=== PATIENT | female | born 1940 | race Caucasian/White ===

== ENCOUNTER → 2020-12-02 12:58 | Outpatient (BNVA) | payer MEDICARE, SELFPAY | PROVIDERS: PCP Family Medicine; Visit Provider Nurse Practitioner | DX: Z13.89 Encounter for screening for other disorder (principal) | CPT/HCPCS: Q3014 ==

== ENCOUNTER 2020-12-03 11:00 | Outpatient (REF) | payer MEDICARE, SELFPAY ==
[2020-12-03 14:31] LABS: C Reactive Protein 0.12 mg/dL (< or = 0.50)
[2020-12-09 07:50] LABS: Prometheus TPMT Genetics SEE SEPARATE REPORT
== END 2020-12-03 11:01 | disposition home or self-care (01) ==
LOC: HO.HMGCLDS 11:00
PROVIDERS: PCP Family Medicine; Visit Provider Nurse Practitioner
DX: K51.90 Ulcerative colitis, unspecified, without complications (principal)
CPT/HCPCS: 36415; 81335; 86140

== ENCOUNTER 2021-01-25 08:26 | Emergency (ER) | payer MEDICARE, SELFPAY ==
--- NOTE | ~2021-01-25 | CT_ITS ---
EXAMINATION: CT ABDOMEN AND PELVIS WITHOUT CONTRAST CLINICAL INFORMATION: Rectal bleeding. Ulcerative colitis. COMPARISON: Previous CT of the abdomen and pelvis February 2020 TECHNIQUE: Multidetector volumetric imaging was performed from the superior aspect of the liver through the pubic symphysis. Sagittal and coronal reformatted images were obtained on the technologist's workstation. This CT examination was performed using dose optimization techniques as appropriate, variously including the following: *Automated exposure control *Adjustment of mA and/or kV according to patient size (this includes techniques or standardized protocols for targeted exams where dose is matched to indication/reason for exam; i.e. extremities or head) *Use of iterative reconstruction technique DLP: 1245 mGy-cm FINDINGS: LUNG BASES: The visualized lung bases are unremarkable. LIVER, GALLBLADDER, AND BILIARY TREE: The liver is slightly low in attenuation questionable for fatty infiltration. Liver is otherwise unremarkable. The gallbladder has been removed. There is no intrahepatic biliary duct dilatation. The distal common bile duct in the head of the pancreas is prominent measuring 1.5 cm. This is unchanged. PANCREAS: There is a 1.3 cm cyst or cystic lesion in the uncinate process of the head of the pancreas. Axial image 30 series 3 This is unchanged from February 2020 exam. There is a duodenal diverticulum adjacent to the head of the pancreas. The pancreas is otherwise unremarkable. SPLEEN: Unremarkable. ADRENAL GLANDS: Unremarkable. KIDNEYS AND URETERS: There are bilateral low-attenuation lesions in the upper pole of both kidneys that are stable and probably represent cysts. There is mild left hydronephrosis. No stone is seen. BLADDER: Unremarkable. GASTROINTESTINAL TRACT: There is wall thickening and edema of the colon and rectum suggestive of colitis and proctitis. This is most severe in the distal colon. There is diverticulosis of the colon. No evidence of diverticulitis is seen. There is diverticulosis of the colon. The appendix is is not seen. The stomach is unremarkable. ABDOMINAL WALL: No significant hernia is appreciated. LYMPH NODES: Normal. VASCULAR: There is evidence of atherosclerotic disease. PELVIC VISCERA: Unremarkable. OSSEOUS STRUCTURES: There is scoliosis and degenerative changes of the spine. CT/CT abdomen pelvis wo con IMPRESSION: Wall thickening of the colon and rectum suggestive of colitis and proctitis. There is also diverticulosis of the colon. Stable bilateral low-attenuation renal lesions probably representing cysts. No ultrasound follow-up needed. Stable probable cyst in the uncinate process of the head of the pancreas. Fatty liver. Stable dilatation of the common bile duct in the head of the pancreas.
[2021-01-25 08:45] VITALS: BP 175/91; PULSE 86; RESP 20; TEMP 36.7; O2SAT 96; BMI 40.2
[2021-01-25 09:34] LABS: MANUAL DIFF FLAG NO
[2021-01-25 09:35] LABS: OBS Int Ctl Valid YES; OBS1 POSITIVE (NEGATIVE)
[2021-01-25 09:35] LABS: Basophils Percent Auto 0.6 % (0-2); Eosinophils Absolute Auto 0.1 X10*3/uL (0.0-0.4); Eosinophils Percent Auto 1.3 % (0-4); Hematocrit 41.6 % (37-47); Imm Gran Abs Auto 0.03 X10*3/uL (0.00-0.03); Imm Gran Pct Auto 0.4 % (0.0-0.4); Lymphocytes Absolute Auto 1.4 X10*3/uL (1.2-4.9); Lymphocytes Percent Auto 20.1 % (20-40); Mean Corpuscular HGB Conc 31.3 g/dl (31.0-35.0); Mean Corpuscular Hemoglobin 26.2 pg (27.0-33.0); Mean Corpuscular Volume 83.7 fL (80-98); Mean Platelet Volume 9.3 fL (9.4-12.3); Monocytes Absolute Auto 0.7 X10*3/uL (0.1-1.2); Monocytes Percent Auto 10.3 % (2-11); Neutrophils Absolute Auto 4.8 X10*3/uL (2.0-8.3); Neutrophils Percent Auto 67.3 % (45-73); Platelet Count 317 X10*3/uL (160-400); Red Blood Count 4.97 X10*6/uL (4.20-5.50); Red Cell Distribution Width 16.6 % (11.0-16.0); White Blood Count 7.2 X10*3/uL (4.8-10.8)
[2021-01-25] MEDS: ondansetron HCL 4 MG/2 ML VIAL IVPUSH (09:39)
[2021-01-25] MEDS: Famotidine/PF 20 MG/2 ML VIAL IVPUSH (09:39)
[2021-01-25] MEDS: 0.9 % Sodium Chloride 1,000 ML 999 ML IV (09:40)
[2021-01-25 09:41] LABS: INTERNATIONAL NORM RATIO 1.2 (0.9-1.1); Prothrombin Time 13.9 SEC (9.9-13.0)
[2021-01-25 10:06] LABS: Alanine Aminotransferase 19 U/L (0-31); Albumin Level 3.9 g/dL (3.5-5.0); Alkaline Phosphatase 59 U/L (39-117); Anion Gap 18 (12-20); Aspartate Amino Transferase 31 U/L (5-31); Blood Urea Nitrogen 8 mg/dL (9-16); Calcium 9.6 mg/dL (8.4-10.2); Carbon Dioxide 23 mmol/L (22-29); Chloride 105 mmol/L (96-108); Estimated Glomerular Filt Rate > 60; Glucose Random 110 mg/dL (60-115); Potassium 4.1 mmol/L (3.3-5.1); Sodium 142 mmol/L (135-145); Total Protein 6.9 g/dL (6.5-8.0)
[2021-01-25] MEDS: methylPREDNISolone Sod Succ 125 MG/2 ML VIAL 60 MG IVPUSH (10:18)
--- NOTE | 2021-01-25 10:25 | ED_ITS ---
HPI - GI Bleed General Chief complaint: GI Bleed Stated complaint: rectal bleeding Time Seen by Provider: 01/25/21 10:56 Source: patient Mode of arrival: ambulatory Limitations: no limitations History of Present Illness HPI Narrative: patient presents to the ED for crampy lower abdominal pain and rectal bleeding with diarrhea for couple of weeks. Patient states bright red blood in stool. Patient states stool is brown. Patient states no fever, chest pain, shortness of breath or dizziness. Patient admits to nausea with mid abdominal pain MD complaint: blood streaked emesis Related Data Home Medications Medication Instructions Recorded Confirmed amlodipine 5 mg tablet 5 mg PO DAILY 12/02/20 12/02/20 apixaban 5 mg tablet 5 mg PO BID 12/02/20 12/02/20 diclofenac sodium 1 % topical gel g TOPICAL QID 12/02/20 12/02/20 gabapentin 300 mg capsule 400 mg PO TID cap 12/02/20 12/02/20 hydromorphone 2 mg tablet 2 mg PO BEDTIME PRN 12/02/20 12/02/20 prednisone 5 mg tablet See Rx Instructions PO .COMPLEX 12/02/20 12/02/20 ropinirole 0.5 mg tablet mg PO 12/02/20 12/02/20 Previous Rx's Medication Instructions Recorded budesonide 3 mg 3 mg PO DAILY #30 cap 07/08/20 capsule,delayed,extended release azathioprine 50 mg tablet 50 mg PO DAILY 90 Days #90 tab 01/11/21 levofloxacin 750 mg PO DAILY 5 Days #5 tab 01/25/21 metronidazole 500 mg PO Q12H #14 tab 01/25/21 prednisone 40 mg PO DAILY 7 Days #14 tab 01/25/21 Allergies Allergy/AdvReac Type Severity Reaction Status Date / Time Iodinated Contrast Media Allergy Intermediate RASH Verified 12/02/20 13:00 [IV CONTRAST] CT dye Allergy Mild hives Uncoded 12/02/20 13:00 dogs, cats etc.. Allergy Unknown Unknown Uncoded 12/02/20 13:00 Review of Systems Review of Systems: Yes all other systems are reviewed and are negative Constitutional: Constitutional: Reports as per HPI and Reports no additional constitutional complaints Eyes: Eyes: Reports as per HPI and Reports no additional eye complaints ENT: Reports system reviewed and no additional complaints, except as documented and Reports as per HPI Cardiovascular: Cardiovascular: Reports as per HPI and Reports no additional cardiovascular complaints Respiratory: Respiratory: Reports as per HPI and Reports no additional respir atory complaints Gastrointestinal: Gastrointestinal: Reports as per HPI, Reports no additional gastrointestinal complaints, Reports abdominal pain ( lower abdominal pain), Reports hematochezia and Reports nausea Musculoskeletal: Musculoskeletal: Reports no additional musculoskeletal complaints and Reports as per HPI Neurologic: Reports system reviewed and no additional complaints, except as documented and Reports as per HPI Psychiatric: Psychiatric: Reports no additional psychiatric complaints and Reports as per HPI [facility] Past Medical History Medical History (Updated 01/25/21 @ 13:15 by [place]) Colitis DVT (deep venous thrombosis) HTN (hypertension) Pre-diabetes Restless leg syndrome Spinal abscess Surgical History (Updated 01/25/21 @ 08:51 by Nury Perkins) Hx of shoulder surgery Social History Social History Patient Tobacco Use Status: Never used Tobacco Use of substances other than those prescribed or required for medical reasons: No Advance Directives: Yes Advance Directives Information Provided: Yes Advance Directives on File: No Physical Exam Vital Signs: Vital Signs: Last Vital Signs Temp 98.0 F 01/25/21 08:45 Pulse 90 01/25/21 13:14 Resp 16 01/25/21 13:14 BP 142/66 H 01/25/21 13:14 Pulse Ox 99 01/25/21 13:14 Body Mass Index 40.2 Const: General: cooperative, healthy appearing, comfortable, no acute distress, well developed, alert and awake Orientation/consciousness: patient oriented x3 HENMT: Head: Yes normal to inspection, Yes No palpable skull fracture present, Yes normocephalic, Yes atraumatic and No abrasion Eyes: General: appearance normal, both eyes and all related structures Neck: Neck: Yes normal visual inspection, Yes full ROM, Yes no lymphadenopathy, Yes no meningeal signs, Yes trachea midline, Yes supple and No tender Chest: Chest palpation & inspection: normal inspection of the chest and normal palpation of entire chest wall Resp: Effort & Inspection: normal respiratory effort and able to speak in complete sentences Auscultation: clear to auscultation bilaterally Cardio: Jugular venous distension: no JVD Heart sounds: S1 normal heart sound present and S2 normal heart sound present GI: Other: rectal exam: on digital rectal exam positive for specks of shelley blood with stool. stool is brown. Negative for black stool or melena. Negative for hemorrhoids Inspection: Yes normal to inspection and No abdominal wall ecchymosis Palpation (GI): Tenderness to palpation present (GI) in the LLQ and in the RLQ; not in the epigastrum, not in the LUQ, not in the RUQ, not at McBurney's point, not periumbilically, not suprapubicly, 's sign negative, obturator sign negative, psoas sign negative, with no rebound tenderness and Rovsing's sign negative, no guarding, not rigid and hepatosplenomegaly present : General: No CVA tenderness and Yes no CVA tenderness Back/Spine/Pelvis: Back: no CVA tenderness, No CVA tenderness and No back tenderness Skin: General skin exam: no rashes or lesions noted and elasticity normal Neuro: General: patient oriented x3, gait normal, no meningeal signs and CN's II-XI intact bilaterally Cranial nerves: Yes CN's II-XII intact bilaterally Extrem: General: Yes normal to inspection and Yes full ROM Psych: Appearance: grossly normal, well kempt and not disheveled Course Course Course Narrative: will do labs and give fluids. Patient given Pepcid and Zofran. Will order dry abdominal CT scan. patient cannot receive IV dye contrast. Will act for base states notes from recent ED visit. Reevaluation(s) Reevaluation #1: I reviewed patient's patient states notes from 11/25/2020 when she was in the ER for similar presentation of lower abdominal pain and rectal bleeding. Patient was discharged as also ulcer colitis exacerbation and rectal bleeding. Patient was discharged with steroids. At that visit [facility] resident contacted her transportation engineering technician Dr. Wright of [facility] and she recommended discharge with steroids and patient was not having a GI bleed but ulcerative colitis exacerbation. Patient labs at that time were no rmal or negative for any anemia. Hemoglobin was 14.1 and hematocrit for 45.5. patient also had normal kidney function. Once again patient was discharged from the ED From the ER as ulcerative of colitis and had follow-up with [facility] transportation engineering technician Dr. Wright. Time: 12:18 Reevaluation #2: patient's stool occult blood test is positive. Patient is hemodynamically stable. Hemoglobin is 13 and hematocrit 41.6. Kidney function is normal. Blood pressure is normal. Patient received fluids and Pepcid. Awaiting CT scan results. Time: 11:13 Reevaluation #3: CT scan shows colitis and proctitis. Patient will need antibiotics. No need for admission. Patient does not have elevated white blood cell count. Patient informed to continue taking her steroids. Time: 12:21 Additional Reevaluation(s): spoke with Dr. Gerardo, the transportation engineering technician on- call, and he was informed of patient's history, physical exam, and diagnostics. He states patient can be discharged with antibiotics and prednisone. He states patient can continue taking Eliquis and follow up with Dr. Wright next week. MDM - GI Bleed MDM Narrative Medical decision making narrative: colitis/proctitis Lab Data Result diagrams: 01/25/21 09:28 01/25/21 09:28 Labs: Lab Results 01/25/21 01/25/21 01/25/21 Range/Units 09:28 09:28 09:28 WBC 7.2 (4.8-10.8) X10*3/uL RBC 4.97 (4.20-5.50) X10*6/uL Hgb 13.0 (12.0-16.0) g/dl Hct 41.6 (37-47) % MCV 83.7 (80-98) fL MCH 26.2 L (27.0-33.0) pg MCHC 31.3 (31.0-35.0) g/dl RDW 16.6 H (11.0-16.0) % Plt Count 317 (160-400) X10*3/uL MPV 9.3 L (9.4-12.3) fL Immature Gran % (Auto) 0.4 (0.0-0.4) % Neut % (Auto) 67.3 (45-73) % Lymph % (Auto) 20.1 (20-40) % Crosby % (Auto) 10.3 (2-11) % Eos % (Auto) 1.3 (0-4) % Baso % (Auto) 0.6 (0-2) % Lymph # (Auto) 1.4 (1.2-4.9) X10*3/uL Crosby # (Auto) 0.7 (0.1-1.2) X10*3/uL Eos # (Auto) 0.1 (0.0-0.4) X10*3/uL Baso # (Auto) 0.0 (0.0-0.2) X10*3/uL Abs Immat Gran (auto) 0.03 (0.00-0.03) X10*3/uL Absolute Neuts (auto) 4.8 (2.0-8.3) X10*3/uL Absolute Nucleated RBC 0.000 (0.0-0.012) X10*3/uL Nucleated RBC % (auto) 0.0 (0.0-0.2) /100WBC PT 13.9 H (9.9-13.0) SEC INR 1.2 H (0.9-1.1) APTT 42.0 H (24.1-38.0) SEC Sodium 142 (135-145) mmol/L Potassium 4.1 (3.3-5.1) mmol/L Chloride 105 (96-108) mmol/L Carbon Dioxide 23 (22-29) mmol/L Anion Gap 18 (12-20) BUN 8 L (9-16) mg/dL Creatinine 0.84 (0.5-1.4) mg/dL Estim Creat Clear Calc 58.0 Estimated GFR > 60 Random Glucose 110 (60-115) mg/dL Calcium 9.6 (8.4-10.2) mg/dL Total Bilirubin 1.0 (0.0-1.0) mg/dL AST 31 (5-31) U/L ALT 19 (0-31) U/L Alkaline Phosphatase 59 (39-117) U/L Total Protein 6.9 (6.5-8.0) g/dL Albumin 3.9 (3.5-5.0) g/dL Lipase 13 (8-78) U/L Urine Color Urine Appearance Urine pH (5.0-8.0) Ur Specific Harmony (1.005-1.025) Urine Protein (NEG-TRACE) MG/DL Urine Glucose (UA) (NEG) MG/DL Urine Ketones (NEG) MG/DL Urine Blood (NEG) Urine Nitrite (NEG) Ur Leukocyte Esterase (NEG) Urine RBC (0) /HPF Urine WBC (0-4) /HPF Ur Squamous Epith Cells /LPF Urine Bacteria /LPF Stool Occult Blood (NEGATIVE) Blood Type Antibody Screen 01/25/21 01/25/21 01/25/21 Range/Units 09:30 10:01 11:13 WBC (4.8-10.8) X10*3/uL RBC (4.20-5.50) X10*6/uL Hgb (12.0-16.0) g/dl Hct (37-47) % MCV (80-98) fL MCH (27.0-33.0) pg MCHC (31.0-35.0) g/dl RDW (11.0-16.0) % Plt Count (160-400) X10*3/uL MPV (9.4-12.3) fL Immature Gran % (Auto) (0.0-0.4) % Neut % (Auto) (45-73) % Lymph % (Auto) (20-40) % Crosby % (Auto) (2-11) % Eos % (Auto) (0-4) % Baso % (Auto) (0-2) % Lymph # (Auto) (1.2-4.9) X10*3/uL Crosby # (Auto) (0.1-1.2) X10*3/uL Eos # (Auto) (0.0-0.4) X10*3/uL Baso # (Auto) (0.0-0.2) X10*3/uL Abs Immat Gran (auto) (0.00-0.03) X10*3/uL Absolute Neuts (auto) (2.0-8.3) X10*3/uL Absolute Nucleated RBC (0.0-0.012) X10*3/uL Nucleated RBC % (auto) (0.0-0.2) /100WBC PT (9.9-13.0) SEC INR (0.9-1.1) APTT (24.1-38.0) SEC Sodium (135-145) mmol/L Potassium (3.3-5.1) mmol/L Chloride (96-108) mmol/L Carbon Dioxide (22-29) mmol/L Anion Gap (12-20) BUN (9-16) mg/dL Creatinine (0.5-1.4) mg/dL Estim Creat Clear Calc Estimated GFR Random Glucose (60-115) mg/dL Calcium (8.4-10.2) mg/dL Total Bilirubin (0.0-1.0) mg/dL AST (5-31) U/L ALT (0-31) U/L Alkaline Phosphatase (39-117) U/L Total Protein (6.5-8.0) g/dL Albumin (3.5-5.0) g/dL Lipase (8-78) U/L Urine Color STRAW Urine Appearance CLEAR Urine pH 6.0 (5.0-8.0) Ur Specific Harmony <= 1.005 (1.005-1.025) Urine Protein NEG (NEG-TRACE) MG/DL Urine Glucose (UA) NEG (NEG) MG/DL Urine Ketones 15 (NEG) MG/DL Urine Blood TRACE (NEG) Urine Nitrite NEG (NEG) Ur Leukocyte Esterase NEG (NEG) Urine RBC 0-2 (0) /HPF Urine WBC 0-2 (0-4) /HPF Ur Squamous Epith Cells 1+ /LPF Urine Bacteria NONE /LPF Stool Occult Blood POSITIVE (NEGATIVE) Blood Type A Positive Antibody Screen NEGATIVE Discharge Plan Discharge Clinical Impression: Ulcerative colitis, Acute proctitis, Colitis Patient Disposition: Home, Self-Care Instructions: Proctitis (ED), Ulcerative Colitis (ED), Colitis (ED) Additional Instructions: return to the ED immediately for worsening abdominal pain, profuse rectal bleeding, weakness, dizziness, fever, chills, chest pain, shortness of breath, or any other concerning symptoms. your blood work came back normal. Your CT scan showed colitis with proctitis. You need oral antibiotics. Prescriptions: New levofloxacin 750 mg tablet 750 mg PO DAILY 5 Days Qty: 5 RF: 0 metronidazole 500 mg tablet 500 mg PO Q12H Qty: 14 RF: 0 prednisone 20 mg tablet 40 mg PO DAILY 7 Days Qty: 14 RF: 0 No Action budesonide 3 mg capsule,delayed,extend.release 3 mg PO DAILY Qty: 30 RF: 3 azathioprine [Imuran] 50 mg tablet 50 mg PO DAILY 90 Days Qty: 90 RF: 1 gabapentin 300 mg capsule 400 mg PO TID RF: 0 ropinirole 0.5 mg tablet PO RF: 0 amlodipine 5 mg tablet 5 mg PO DAILY RF: 0 diclofenac sodium 1 % gel topical QID RF: 0 hydromorphone 2 mg tablet 2 mg PO BEDTIME PRN (Reason: pain) RF: 0 Eliquis 5 mg tablet 5 mg PO BID RF: 0 prednisone 5 mg tablet See Rx Instructions PO .COMPLEX RF: 0 Referrals: Sindhu Wright MD [Physician] - 2 days ( seen in the ED for also of colitis exacerbation. CT scan shows colitis with proctitis. Patient Discharged with antibiotics and steroids) Discharge Date/Time: 01/25/21 14:41 Print Language: [place]ar[place]uan
[2021-01-25 11:10] VITALS: BP 161/54; PULSE 80; RESP 16; O2SAT 96
[2021-01-25 11:26] LABS: Glucose Urine UA NEG (NEG); Leukocyte Esterase Urine NEG (NEG); Nitrite Urine NEG (NEG); Specific Gravity - Urine <= 1.005 (1.005-1.025); Urine Blood TRACE (NEG); Urine Ketones 15 MG/DL (NEG); Urine Protein NEG (NEG-TRACE)
[2021-01-25 11:29] LABS: Appearance Urine CLEAR; Color Urine STRAW
[2021-01-25 11:38] LABS: RBC Urine 0-2 /HPF (0); Squamous Epithelial Cell Urine 1+ /LPF; WBC Urine 0-2 /HPF (0-4)
[2021-01-25 11:38] LABS: Lipase 13 U/L (8-78)
[2021-01-25 13:14] VITALS: BP 142/66; PULSE 90; RESP 16; O2SAT 99
== END 2021-01-25 14:41 | disposition home or self-care (01) ==
PROVIDERS: Physician Assistant; Emergency Provider Emergency Medicine; PCP Family Medicine
DX: K51.20 Ulcerative (chronic) proctitis without complications (principal); R10.30 Lower abdominal pain, unspecified
CPT/HCPCS: 36415; 74176; 80053; 81001; 82272; 83690; 85025; 85610; 85730; 86850; 86900; 86901; 96361; 96374; 96375; 99284; J2405; J2930; Q3014

== ENCOUNTER 2021-01-27 10:11 | Outpatient (REF) | payer MEDICARE, SELFPAY ==
[2021-01-27 12:08] LABS: CDiff Gene PCR NEGATIVE (Negative)
[2021-02-02 02:52] LABS: Calprotectin, Fecal 1750 mcg/g
== END 2021-01-27 10:12 | disposition home or self-care (01) ==
LOC: HO.HMGCLNP 10:11
PROVIDERS: Visit Provider Nurse Practitioner
DX: R19.7 Diarrhea, unspecified (principal); K51.90 Ulcerative colitis, unspecified, without complications
CPT/HCPCS: 83993; 87045; 87046; 87493

== ENCOUNTER 2021-01-31 08:41 | Outpatient (REF) | payer MEDICARE, SELFPAY ==
[2021-01-31 14:16] LABS: C Reactive Protein 0.15 mg/dL (< or = 0.50)
== END 2021-01-31 08:42 | disposition home or self-care (01) ==
LOC: HO.HMGCLDS 08:41
PROVIDERS: PCP Family Medicine; Visit Provider Nurse Practitioner
DX: K21.9 Gastro-esophageal reflux disease without esophagitis (principal); K51.90 Ulcerative colitis, unspecified, without complications; R19.7 Diarrhea, unspecified; K64.9 Unspecified hemorrhoids
CPT/HCPCS: 36415; 86140; Q3014

== ENCOUNTER → 2021-02-10 09:48 | Outpatient (BNVA) | payer MEDICARE, SELFPAY | PROVIDERS: PCP Family Medicine; Visit Provider Nurse Practitioner | DX: Z12.11 Encounter for screening for malignant neoplasm of colon (principal); K51.90 Ulcerative colitis, unspecified, without complications; K64.9 Unspecified hemorrhoids; K21.9 Gastro-esophageal reflux disease without esophagitis; R19.7 Diarrhea, unspecified | CPT/HCPCS: Q3014 ==

== ENCOUNTER 2021-02-11 09:53 | Outpatient (REF) | payer MEDICARE, SELFPAY | END 2021-02-11 09:54 | disposition home or self-care (01) | LOC: HO.HMGCLDS 09:53 | PROVIDERS: PCP Family Medicine; Visit Provider Nurse Practitioner | DX: K51.90 Ulcerative colitis, unspecified, without complications (principal) | CPT/HCPCS: 36415 ==

== ENCOUNTER → 2021-03-18 08:23 | Outpatient (BNVA) | payer MEDICARE, SELFPAY | PROVIDERS: PCP Family Medicine; Visit Provider Nurse Practitioner | CPT/HCPCS: Q3014 ==

== ENCOUNTER 2021-05-11 14:31 | Inpatient (IN) | payer MEDICARE, SELFPAY ==
--- NOTE | ~2021-05-11 | CT_ITS ---
EXAMINATION: CT ABDOMEN AND PELVIS WITHOUT CONTRAST CLINICAL INFORMATION: History of ulcerative colitis with rectal bleeding COMPARISON: Previous CT of the abdomen and pelvis most recent December 2020 TECHNIQUE: Multidetector volumetric imaging was performed from the superior aspect of the liver through the pubic symphysis. Sagittal and coronal reformatted images were obtained on the technologist's workstation. This CT examination was performed using dose optimization techniques as appropriate, variously including the following: *Automated exposure control *Adjustment of mA and/or kV according to patient size (this includes techniques or standardized protocols for targeted exams where dose is matched to indication/reason for exam; i.e. extremities or head) *Use of iterative reconstruction technique DLP: 994 mGy-cm FINDINGS: LUNG BASES: There is atelectasis at the lung bases. There may be mild bilateral lower lobe bronchiectasis. LIVER, GALLBLADDER, AND BILIARY TREE: The liver is low in attenuation suggestive of fatty infiltration. The gallbladder is been removed. There is mild dilatation of the extrahepatic bile ducts that appears unchanged. PANCREAS: There is a 1.3 cm cyst in the uncinate process of the head of the pancreas that measures 1 cm and is unchanged. There is a duodenal diverticulum adjacent to the head of the pancreas. The pancreas is otherwise unremarkable. SPLEEN: Unremarkable. ADRENAL GLANDS: Unremarkable. KIDNEYS AND URETERS: There are bilateral low-attenuation renal lesions that are stable suggestive of cysts. Largest measure 1 cm. BLADDER: Unremarkable. GASTROINTESTINAL TRACT: There is diverticulosis of the colon. No evidence of diverticulitis is seen. There is mild wall thickening of the rectum suggestive of proctitis. The more proximal sigmoid colon is slightly distended and stool-filled. The small and large bowel are otherwise unremarkable. The appendix is not seen. The stomach is unremarkable. ABDOMINAL WALL: No significant hernia is appreciated. LYMPH NODES: Normal. VASCULAR: Unremarkable. PELVIC VISCERA: Unremarkable. OSSEOUS STRUCTURES: There is scoliosis and degenerative change of the spine. CT/CT abdomen pelvis wo con IMPRESSION: Wall thickening of the rectum suggestive of proctitis. The sigmoid colon appears a stool filled. Diverticulosis of the colon. No evidence of diverticulitis. Stable renal and pancreatic cysts. Fatty liver.
--- NOTE | ~2021-05-11 | XR_ITS ---
EXAMINATION: XR ABDOMEN KUB CLINICAL INDICATION: Constipation COMPARISON: CT abdomen and pelvis 05/11/2021 TECHNIQUE: AP x2 views of the abdomen. FINDINGS: There is scattered gas in the bowel of normal caliber. Some mild stool is noted in the distal descending and proximal sigmoid colon. There is no rectal fecal impaction. No excessive content of stool. There are surgical clips right upper quadrant consistent with the cholecystectomy. Some coarsening bronchovascular markings are again seen at the lung bases. There is dextrocurvature lumbar spine with multilevel degenerative changes. XR/XR KUB IMPRESSION: 1. No gaseous dilatation of bowel. 2. No excessive contents of stool. No rectal fecal impaction.
[2021-05-11 15:00] VITALS: BP 133/68; PULSE 81; RESP 18; TEMP 36.4; O2SAT 95; BMI 39.6
--- NOTE | 2021-05-11 16:43 | ED.GIBLEED ---
HPI - GI Bleed General Chief complaint: Abdominal Pain Stated complaint: RECTAL BLEEDING Time Seen by Provider: 05/11/21 16:40 Source: patient and family (Daughter) Mode of arrival: ambulatory Limitations: no limitations History of Present Illness HPI Narrative: 81 years old female came in for evaluation of rectal bleeding. This is an 81-year-old female with history of DVT patient is taking Eliquis for anticoagulation, patient noted is been having constipation for the last 4 days, patient also noted bloody loose stool for the last 2-3 days, patient is complaining of mild lower abdominal pain, and rectal discomfort. Patient otherwise declined chest pain, feeling dizzy, or shortness of breath. Related Data Home Medications Medication Instructions Recorded Confirmed amlodipine 5 mg tablet 5 mg PO DAILY 12/02/20 12/02/20 apixaban 5 mg tablet (Eliquis) 5 mg PO BID 12/02/20 12/02/20 diclofenac sodium 1 % topical gel g TOPICAL QID 12/02/20 12/02/20 gabapentin 300 mg capsule 400 mg PO TID cap 12/02/20 12/02/20 hydromorphone 2 mg tablet 2 mg PO BEDTIME PRN 12/02/20 12/02/20 ropinirole 0.5 mg tablet mg PO 12/02/20 12/02/20 Previous Rx's Medication Instructions Recorded hydrocortisone 2.5 % topical cream [address] BID #30 g 01/31/21 with perineal applicator (Proctosol HC) azathioprine 50 mg tablet (Imuran) 50 mg PO DAILY 90 Days #90 tab 02/10/21 budesonide 3 mg 3 mg PO DAILY #30 cap 02/10/21 capsule,delayed,extended release Allergies Allergy/AdvReac Type Severity Reaction Status Date / Time dogs, cats etc.. Allergy Unknown Unknown Uncoded 12/02/20 13:00 barium Allergy Hives Uncoded 05/11/21 15:00 Review of Systems Review of Systems: All other systems are reviewed and are negative Constitutional: Reports as per HPI and Reports no additional constitutional complaints Eyes: Reports as per HPI and Reports no additional eye complaints Reports system reviewed and no additional complaints, except as documented Cardiovascular: Reports as per HPI and Reports no additional cardiovascular complaints Respiratory: Reports as per HPI and Reports no additional respiratory complaints Gastrointestinal: Reports as per HPI and Reports no additional gastrointestinal complaints Genitourinary: Reports no additional female genitourinary complaints Musculoskeletal: Reports no additional musculoskeletal complaints Skin/Breast: Reports system reviewed and no additional complaints, except as docu Psychiatric: Reports no additional psychiatric complaints Endocrine: Reports no additional endocrine complaints Hematologic/Lymphatic: Reports no additional hematologic/lymphatic complaints Allergic/Immunologic: Reports no additional allergic/immunologic complaints Reports system reviewed and no additional complaints, except as documented and Reports Abnormal speech present [facility] Past Medical History Medical History Colitis DVT (deep venous thrombosis) HTN (hypertension) Pre-diabetes Restless leg syndrome Spinal abscess Surgical History Hx of shoulder surgery Social History Social History Alcohol intake: never Patient Tobacco Use Status: Never used Tobacco Use of substances other than those prescribed or required for medical reasons: No Advance Directives: No Advance Directives Information Provided: No Physical Exam Vital Signs: Vital Signs: Last Vital Signs Temp 97.9 F 05/11/21 20:05 Pulse 68 05/11/21 20:05 Resp 15 05/11/21 20:05 BP 109/50 L 05/11/21 20:05 Pulse Ox 96 05/11/21 20:05 Body Mass Index 39.6 Vital signs have been reviewed as appeared to be correct. Blood pressure normal. Heart rate normal. Respiration rate normal. Temperature normal. Oxygen saturation normal. Appearance: Alert. Oriented X3. No acute distress. Head: Normal external exam. Normocephalic. Atraumatic. No [place] signs noted. No raccoon eyes noted Eyes: PERRLA. EOMI. Conjunctiva and sclera normal. Eyelids normal. ENT: TM's Normal. Pharynx normal. Uvula midline. Moist mucous membranes. No trismus noted. No drooling noted. No muffled voice noted. Neck: Normal inspection. Neck supple. FROM. No adenopathy. Thyroid Normal. No meningeal signs. No neck mass noted. CVS: Normal heart rate and rhythm. Heart sound normal. No murmurs noted. Pulses normal throughout. Respiratory: No respiratory distress. Painless inspiration. Breath sounds normal. No wheezes/rales/rhonchi noted. Chest nontender. No accessory muscle usage noted or decreased air movement noted. Abdomen: Soft and nontender. Bowel sounds normal in all 4 quadrants. No distention noted. No organomegaly noted. No visible injury noted. Rectal exam: No external hemorrhoids appreciated, no palpable internal hemorrhoid, stool was hematochezia. Back: No CVA tenderness. Full range of motion noted. Skin: Skin warm and dry. Normal skin color. Normal skin turgor. No rashes/lesions/lacerations noted. Extremities: No lower extremity edema. Extremities exhibit normal range of motion. Extremities nontender. Neuro: Oriented X 3. Cranial nerve exam: II-XII are grossly intact No motor deficit. No sensory deficit. Reflexes normal. Course Course Course Narrative: Assessment and plan. 81-year-old female came in with GI bleed, patient is on Eliquis for DVT. Patient is hemodynamically stable, with stable H and H, and asymptomatic from the bleed. Will admit the patient for monitoring GI bleed and serial CBC. MDM - GI Bleed Medical Records Attestation: I reviewed the patient's medical records. Lab Data Attestation: I reviewed the patient's lab results. Result diagrams: 05/11/21 13:00 05/11/21 17:49 Labs: Lab Results 05/11/21 05/11/21 05/11/21 Range/Units 13:00 16:50 16:50 WBC 9.5 (4.8-10.8) X10*3/uL RBC 4.50 (4.20-5.50) X10*6/uL Hgb 11.9 L (12.0-16.0) g/dl Hct 38.7 (37-47) % MCV 86.0 (80-98) fL MCH 26.4 L (27.0-33.0) pg MCHC 30.7 L (31.0-35.0) g/dl RDW 18.9 H (11.0-16.0) % Plt Count 419 H D (160-400) X10*3/uL MPV 9.5 (9.4-12.3) fL Immature Gran % (Auto) 0.3 (0.0-0.4) % Neut % (Auto) 74.9 H (45-73) % Lymph % (Auto) 13.2 L (20-40) % [place] % (Auto) 9.4 (2-11) % Eos % (Auto) 1.5 (0-4) % Baso % (Auto) 0.7 (0-2) % Lymph # (Auto) 1.3 (1.2-4.9) X10*3/uL [place] # (Auto) 0.9 (0.1-1.2) X10*3/uL Eos # (Auto) 0.1 (0.0-0.4) X10*3/uL Baso # (Auto) 0.1 (0.0-0.2) X10*3/uL Abs Immat Gran (auto) 0.03 (0.00-0.03) X10*3/uL Absolute Neuts (auto) 7.1 (2.0-8.3) X10*3/uL Absolute Nucleated RBC 0.000 (0.0-0.012) X10*3/uL Nucleated RBC % (auto) 0.0 (0.0-0.2) /100WBC PT 19.1 H (9.9-13.0) SEC INR 1.7 H (0.9-1.1) APTT 40.1 H (24.1-38.0) SEC Sodium (135-145) mmol/L Potassium (3.3-5.1) mmol/L Chloride (96-108) mmol/L Carbon Dioxide (22-29) mmol/L Anion Gap (12-20) BUN (9-16) mg/dL Creatinine (0.5-1.4) mg/dL Estim Creat Clear Calc Estimated GFR Random Glucose (60-115) mg/dL Calcium (8.4-10.2) mg/dL Total Bilirubin (0.0-1.0) mg/dL AST (5-31) U/L ALT (0-31) U/L Alkaline Phosphatase (39-117) U/L Troponin I High Sens 6.5 (<3.5-17.0) ng/L B-Natriuretic Peptide 55 (<100) pg/mL Total Protein (6.5-8.0) g/dL Albumin (3.5-5.0) g/dL Stool Occult Blood (NEGATIVE) Coronavirus (PCR) (Negative) Influenza Type A (PCR) (Negative) Influenza Type B (PCR) (Negative) RSV RNA Qual (PCR) (Negative) 05/11/21 05/11/21 05/11/21 Range/Units 16:50 17:10 17:49 WBC (4.8-10.8) X10*3/uL RBC (4.20-5.50) X10*6/uL Hgb (12.0-16.0) g/dl Hct (37-47) % MCV (80-98) fL MCH (27.0-33.0) pg MCHC (31.0-35.0) g/dl RDW (11.0-16.0) % Plt Count (160-400) X10*3/uL MPV (9.4-12.3) fL Immature Gran % (Auto) (0.0-0.4) % Neut % (Auto) (45-73) % Lymph % (Auto) (20-40) % [place] % (Auto) (2-11) % Eos % (Auto) (0-4) % Baso % (Auto) (0-2) % Lymph # (Auto) (1.2-4.9) X10*3/uL [place] # (Auto) (0.1-1.2) X10*3/uL Eos # (Auto) (0.0-0.4) X10*3/uL Baso # (Auto) (0.0-0.2) X10*3/uL Abs Immat Gran (auto) (0.00-0.03) X10*3/uL Absolute Neuts (auto) (2.0-8.3) X10*3/uL Absolute Nucleated RBC (0.0-0.012) X10*3/uL Nucleated RBC % (auto) (0.0-0.2) /100WBC PT (9.9-13.0) SEC INR (0.9-1.1) APTT (24.1-38.0) SEC Sodium 141 (135-145) mmol/L Potassium 3.6 (3.3-5.1) mmol/L Chloride 98 (96-108) mmol/L Carbon Dioxide 32 H (22-29) mmol/L Anion Gap 15 (12-20) BUN 16 D (9-16) mg/dL Creatinine 1.27 (0.5-1.4) mg/dL Estim Creat Clear Calc 36.0 Estimated GFR 40 Random Glucose 112 (60-115) mg/dL Calcium 9.5 (8.4-10.2) mg/dL Total Bilirubin 1.2 H (0.0-1.0) mg/dL AST 40 H (5-31) U/L ALT 18 (0-31) U/L Alkaline Phosphatase 74 D (39-117) U/L Troponin I High Sens (<3.5-17.0) ng/L B-Natriuretic Peptide (<100) pg/mL Total Protein 6.3 L (6.5-8.0) g/dL Albumin 3.6 (3.5-5.0) g/dL Stool Occult Blood POSITIVE (NEGATIVE) Coronavirus (PCR) NEGATIVE (Negative) Influenza Type A (PCR) NEGATIVE (Negative) Influenza Type B (PCR) NEGATIVE (Negative) RSV RNA Qual (PCR) NEGATIVE (Negative) Imaging Data CT scan - abdomen: Radiologist's impression: Wall thickening of the rectum suggestive of proctitis. The sigmoid colon appears a stool filled. Diverticulosis of the colon. No evidence of diverticulitis. Stable renal and pancreatic cysts. Fatty liver.? Discharge Plan Discharge Clinical Impression: Acute GI bleeding, Acute proctitis Patient Disposition: Admitted As Inpatient Prescriptions: No Action gabapentin 300 mg capsule 400 mg PO TID RF: 0 ropinirole 0.5 mg tablet PO RF: 0 amlodipine 5 mg tablet 5 mg PO DAILY RF: 0 diclofenac sodium 1 % gel topical QID RF: 0 hydromorphone 2 mg tablet 2 mg PO BEDTIME PRN (Reason: pain) RF: 0 Eliquis 5 mg tablet 5 mg PO BID RF: 0 hydrocortisone [Proctosol HC] 2.5 % cream with perineal applicator [address] BID Qty: 30 RF: 3 azathioprine [Imuran] 50 mg tablet 50 mg PO DAILY 90 Days Qty: 90 RF: 2 budesonide 3 mg capsule,delayed,extend.release 3 mg PO DAILY Qty: 30 RF: 3
--- NOTE | 2021-05-11 16:45 | ECG_ITS ---
Test Reason : abd pain Blood Pressure : / mmHG Vent. Rate : 066 BPM Atrial Rate : 066 BPM P-R Int : 178 ms QRS Dur : 096 ms QT Int : 334 ms P-R-T Axes : 035 -30 128 degrees QTc Int : 350 ms Normal sinus rhythm Left axis deviation Low voltage QRS Nonspecific T wave abnormality Abnormal ECG T wave amplitude has decreased in Lateral leads Referred By: Vanessa Musa Electronically Signed By:EMERSON ALLEN MD
[2021-05-11 16:58] LABS: MANUAL DIFF FLAG NO
[2021-05-11 17:08] LABS: Basophils Absolute Auto 0.1 X10*3/uL (0.0-0.2); Basophils Percent Auto 0.7 % (0-2); Eosinophils Absolute Auto 0.1 X10*3/uL (0.0-0.4); Eosinophils Percent Auto 1.5 % (0-4); Hematocrit 38.7 % (37-47); Hemoglobin 11.9 g/dl (12.0-16.0); Imm Gran Abs Auto 0.03 X10*3/uL (0.00-0.03); Imm Gran Pct Auto 0.3 % (0.0-0.4); Lymphocytes Absolute Auto 1.3 X10*3/uL (1.2-4.9); Lymphocytes Percent Auto 13.2 % (20-40); Mean Corpuscular HGB Conc 30.7 g/dl (31.0-35.0); Mean Corpuscular Hemoglobin 26.4 pg (27.0-33.0); Mean Platelet Volume 9.5 fL (9.4-12.3); Monocytes Absolute Auto 0.9 X10*3/uL (0.1-1.2); Monocytes Percent Auto 9.4 % (2-11); Neutrophils Absolute Auto 7.1 X10*3/uL (2.0-8.3); Neutrophils Percent Auto 74.9 % (45-73); Platelet Count 419 X10*3/uL (160-400); Red Cell Distribution Width 18.9 % (11.0-16.0); White Blood Count 9.5 X10*3/uL (4.8-10.8)
[2021-05-11 17:13] LABS: INTERNATIONAL NORM RATIO 1.7 (0.9-1.1); Prothrombin Time 19.1 SEC (9.9-13.0)
[2021-05-11 17:16] LABS: Partial Thromboplastin Time 40.1 SEC (24.1-38.0)
[2021-05-11 17:34] LABS: B Type Natriuretic Peptide 55 pg/mL (<100); Troponin-I High Sensitivity 6.5 ng/L (<3.5-17.0)
[2021-05-11 17:55] LABS: Influenza A PCR NEGATIVE (Negative); Influenza B PCR NEGATIVE (Negative); Resp Syncy Virus RNA Qual PCR NEGATIVE (Negative); SARS COV2 PCR INHOUSE NEGATIVE (Negative)
[2021-05-11 17:57] VITALS: BP 93/39; PULSE 72; RESP 16; TEMP 36.5; O2SAT 93
[2021-05-11 18:30] LABS: Alanine Aminotransferase 18 U/L (0-31); Albumin Level 3.6 g/dL (3.5-5.0); Alkaline Phosphatase 74 U/L (39-117); Anion Gap 15 (12-20); Aspartate Amino Transferase 40 U/L (5-31); Bilirubin Total 1.2 mg/dL (0.0-1.0); Blood Urea Nitrogen 16 mg/dL (9-16); Calcium 9.5 mg/dL (8.4-10.2); Carbon Dioxide 32 mmol/L (22-29); Chloride 98 mmol/L (96-108); Estimated Glomerular Filt Rate 40; Glucose Random 112 mg/dL (60-115); Potassium 3.6 mmol/L (3.3-5.1); Sodium 141 mmol/L (135-145); Total Protein 6.3 g/dL (6.5-8.0)
[2021-05-11 18:39] LABS: OBS Int Ctl Valid YES; OBS1 POSITIVE (NEGATIVE)
[2021-05-11 20:05] VITALS: BP 109/50; PULSE 68; RESP 15; TEMP 36.6; O2SAT 96
--- NOTE | 2021-05-11 20:17 | PC.NURSE ---
Pt alert and oriented x4, calm and cooperative. Pt denies pain. Pt states she continues to feel the urge to have to have a BM. Vitals stable. IV intact. Pt on tele monitor, NSR. Pt resting in stretcher without issues, will continue to monitor.
--- NOTE | 2021-05-11 21:58 | P.HPHOSP_ITS ---
History of Present Illness Date of Service: 05/11/21 Chief Complaint: constipation, gi bleed This is an 81-year-old female with past medical history of ulcerative colitis, DVT, HTN, prediabetes, who presents to the hospital with complaints of severe constipation as well as 2 episodes of red blood per rectum after straining. Patient reports that she has been constipated for the past 4 days, she started having concerns because she felt that she was unable to move her bowels and started having incontinence of diarrhea even though she was unable to have a proper bowel movement, she also started having pain bright blood per rectum after her last 2 bowels and therefore presented to the hospital. Patient denies having any abdominal pain, denies having any nausea or vomiting, no chest pain, no palpitations, no dizziness or change in vision. No headache, no urinary symptoms and no lower extremity edema. Patient does report history of hemorrhoids. On initial presentation patient hemodynamically stable with a blood pressure of 93/39 that improved to 109/50 and is currently 120/54 Labs are significant for PT of 19.1, INR of 1.7, otherwise unremarkable. Stool occult blood positive, Abdominal CT shows acute proctitis and stool-filled sigmoid colon. Patient will be admitted for further management Review of Systems Review of Systems: Yes all other systems are reviewed and are negative [facility] Medical History (Updated 05/12/21 @ 05:54 by Elie Prince MD) Colitis DVT (deep venous thrombosis) History of CHF (congestive heart failure) HTN (hypertension) Pre-diabetes Restless leg syndrome Spinal abscess Pertinent family history: No pertinent history Surgical History Hx of shoulder surgery Social History Alcohol intake: never Patient Tobacco Use Status: Never used Tobacco Use of substances other than those prescribed or required for medical reasons: No Advance Directives: No Advance Directives Information Provided: No Meds Allergies Allergy/AdvReac Type Severity Reaction Status Date / Time dogs, cats etc.. Allergy Unknown Unknown Uncoded 12/02/20 13:00 barium Allergy Hives Uncoded 05/11/21 15:00 Active Medications: Current Medications Magnesium Hydroxide (Milk Of Magnesia 30 Ml Oral.Susp) 30 ml PO DAILY STA Stop: 05/11/21 21:59 Pharmacy Consult (Consult Rx Perform Med Rec) 1 each MISCELLANE ONCE PRN PRN Reason: Consult order Home Medications Medication Instructions Recorded Confirmed Last Taken Type amlodipine 5 mg tablet 5 mg PO DAILY 12/02/20 05/11/21 05/11/21 History apixaban 5 mg tablet (Eliquis) 5 mg PO BID 12/02/20 05/11/21 05/11/21 History ropinirole 0.5 mg tablet 0.5 mg PO QID 12/02/20 05/11/21 05/11/21 History aspirin 81 mg tablet,delayed 1 tab PO DAILY 05/11/21 05/11/21 05/11/21 History release atorvastatin 40 mg tablet 1 tab PO BEDTIME 05/11/21 05/11/21 05/10/21 History dorzolamide 22.3 mg-timolol 6.8 1 drp OPHTHALMIC (EYE) BID 05/11/21 05/11/21 05/11/21 History mg/mL eye drops gabapentin 400 mg capsule 800 mg PO TID 05/11/21 05/11/21 05/11/21 History isosorbide mononitrate 30 mg 1 tab PO DAILY 05/11/21 05/11/21 05/11/21 History tablet,extended release 24 hr latanoprost 0.005 % eye drops 1 drp OPHTHALMIC (EYE) BEDTIME 05/11/21 05/11/21 05/10/21 History metoprolol succinate 25 mg 1 tab PO DAILY 05/11/21 05/11/21 05/11/21 History tablet,extended release 24 hr torsemide 20 mg tablet 1 tab PO DAILY 05/11/21 05/11/21 05/11/21 History Physical Exam Vital Signs and Narrative: Vital Signs: Last Vital Signs Temp 97.9 F 05/11/21 20:05 Pulse 68 05/11/21 20:05 Resp 15 05/11/21 20:05 BP 109/50 L 05/11/21 20:05 Pulse Ox 96 05/11/21 20:05 Body Mass Index 39.6 Const: General: cooperative and no acute distress Orientation/consciousness: patient oriented x3 Eyes: General: appearance normal, both eyes and all related structures Pupils: Equal, round and reactive pupils present Resp: Effort & Inspection: normal respiratory effort Auscultation: clear to auscultation bilaterally Cardio: Rate: regular rate Rhythm: regular rhythm GI: Other: No tenderness, no rebound or guarding On rectal exam, patient does have external hemorrhoids but do not appear to be ulcerated or bleeding Palpation (GI): Soft to palpation Auscultation: normal bowel sounds Skin: General skin exam: no rashes or lesions noted Neuro: General: patient oriented x3 Cranial nerves: Yes Equal, round and reactive pupils present Cognition (Neuro): normal cognition Extrem: General: Yes normal to inspection and Yes no pedal edema Results Labs CBC and Chem 7: 05/11/21 13:00 05/11/21 17:49 Labs: Laboratory Results - last 24 hr 05/11/21 05/11/21 05/11/21 13:00 16:50 16:50 MCV 86.0 MCH 26.4 L MCHC 30.7 L RDW 18.9 H Plt Count 419 H D MPV 9.5 Immature Gran % (Auto) 0.3 Neut % (Auto) 74.9 H Lymph % (Auto) 13.2 L [place] % (Auto) 9.4 Eos % (Auto) 1.5 Baso % (Auto) 0.7 Lymph # (Auto) 1.3 [place] # (Auto) 0.9 Eos # (Auto) 0.1 Baso # (Auto) 0.1 Abs Immat Gran (auto) 0.03 Absolute Neuts (auto) 7.1 Absolute Nucleated RBC 0.000 Nucleated RBC % (auto) 0.0 PT 19.1 H INR 1.7 H APTT 40.1 H Anion Gap Estim Creat Clear Calc Estimated GFR Random Glucose Calcium Total Bilirubin AST ALT Alkaline Phosphatase Troponin I High Sens 6.5 B-Natriuretic Peptide 55 Total Protein Albumin Stool Occult Blood Coronavirus (PCR) Influenza Type A (PCR) Influenza Type B (PCR) RSV RNA Qual (PCR) 05/11/21 05/11/21 05/11/21 16:50 17:10 17:49 MCV MCH MCHC RDW Plt Count MPV Immature Gran % (Auto) Neut % (Auto) Lymph % (Auto) [place] % (Auto) Eos % (Auto) Baso % (Auto) Lymph # (Auto) [place] # (Auto) Eos # (Auto) Baso # (Auto) Abs Immat Gran (auto) Absolute Neuts (auto) Absolute Nucleated RBC Nucleated RBC % (auto) PT INR APTT Anion Gap 15 Estim Creat Clear Calc 36.0 Estimated GFR 40 Random Glucose 112 Calcium 9.5 Total Bilirubin 1.2 H AST 40 H ALT 18 Alkaline Phosphatase 74 D Troponin I High Sens B-Natriuretic Peptide Total Protein 6.3 L Albumin 3.6 Stool Occult Blood POSITIVE Coronavirus (PCR) NEGATIVE Influenza Type A (PCR) NEGATIVE Influenza Type B (PCR) NEGATIVE RSV RNA Qual (PCR) NEGATIVE Imaging Radiologist's Impressions: Impressions Abdomen/Pelvis CT 05/11/21 16:41 IMPRESSION: Wall thickening of the rectum suggestive of proctitis. The sigmoid colon appears a stool filled. Diverticulosis of the colon. No evidence of diverticulitis. Stable renal and pancreatic cysts. Fatty liver. Assessment and Plan (1) Acute GI bleeding: Status: Acute (2) Acute proctitis: Status: Acute (3) Constipation: Status: Acute This is an 81-year-old female who presents to the hospital with constipation as well as GI bleed # acute GI bleed - reports red bright blood per rectum most likely secondary to hemorrhoid - patient has been constipated and has been straining lately and reports history of hemorrhoids - has external hemorrhoids on physical exam - hemodynamically stable - hemoglobin did drop from 13 on 02/08 1-11.9 today - will consult gastroenterology - follow H&H # acute proctitis - is secondary to severe constipation - will order bowel regimen including enema, MiraLax, and milk of magnesia # constipation - has constipation diarrhea - denies taking any antidiarrheals or narcotic medications to cause severe constipation - at this time will start her on bowel regimen as well as enema - monitor for bowel movement # history of ulcerative colitis - patient reports that she does still continue have flares with most recent about a month ago - at this time does not appear to have UC flare - continue home medications of azathioprine and budesonide # DVT - given the acute GI bleed will hold apixaban at this time - resume once patient evaluated by GI # hypertension - initially low but has now normalized - will hold amlodipine in anticipation of any deterioration # history of CHF -not in exacerbation - continue torsemide # restless leg syndrome - continue ropinirole DVT prophylaxis: SCDs Quality Stroke Does the patient have a stroke diagnosis?: No VTE Prior VTE?: No VTE Risk Level:: Medical - moderate - high VTE Device Contraindication: N/A - Device Ordered VTE Drug Contraindication: Treatment Not Indicated
--- NOTE | 2021-05-11 22:00 | PHA.MEDREC ---
Pharmacy Consult ? Medication Reconciliation Pharmacy has completed the medication reconciliation.
[2021-05-11] MEDS: Sodium Phosphate,Mono-Dibasic 133 ML ENEMA PR (22:08)
[2021-05-11] MEDS: Milk of Magnesia 30 ML ORAL.SUSP PO (22:08)
[2021-05-11 22:12] LABS: Appearance Urine TURBID; Color Urine BROWN
[2021-05-11 22:15] LABS: RBC Urine TNTC /HPF (0)
[2021-05-11 22:18] LABS: Amorphous Sediment Urine 2+ /LPF
[2021-05-11 22:19] LABS: Bacteria Urine 3+ /LPF
[2021-05-11 22:20] LABS: Squamous Epithelial Cell Urine TRACE /LPF
[2021-05-11] MEDS: polyethylene glycoL 3350 17 GM POWD.PACK PO (22:35)
[2021-05-11 23:50] VITALS: BP 120/54; PULSE 73; RESP 15; TEMP 36.6; O2SAT 93
[2021-05-12 02:29] VITALS: BP 135/55; PULSE 75; RESP 14; O2SAT 96
[2021-05-12 06:03] VITALS: BP 113/48; PULSE 80; RESP 18; TEMP 37; O2SAT 94
[2021-05-12 06:12] LABS: MANUAL DIFF FLAG NO
--- NOTE | 2021-05-12 06:13 | PC.NURSE ---
Pt remains alert and oriented x4, calm and cooperative. Pt states pain at anus stating pain is related to multiple loose BM and hemorrhoids. 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 Buttock noted to be pink and blanching. Pt urinated without issues. IV intact. Pt remains on room air vitals stable. Pt turns and positions herself well in bed. Pt resting in stretcher without complaints, will continue to monitor.
[2021-05-12 06:18] LABS: Basophils Absolute Auto 0.1 X10*3/uL (0.0-0.2); Basophils Percent Auto 0.9 % (0-2); Eosinophils Absolute Auto 0.1 X10*3/uL (0.0-0.4); Eosinophils Percent Auto 1.6 % (0-4); Hematocrit 35.6 % (37-47); Hemoglobin 11.1 g/dl (12.0-16.0); Imm Gran Abs Auto 0.04 X10*3/uL (0.00-0.03); Imm Gran Pct Auto 0.5 % (0.0-0.4); Lymphocytes Absolute Auto 1.1 X10*3/uL (1.2-4.9); Lymphocytes Percent Auto 13.5 % (20-40); Mean Corpuscular HGB Conc 31.2 g/dl (31.0-35.0); Mean Corpuscular Hemoglobin 26.6 pg (27.0-33.0); Mean Corpuscular Volume 85.2 fL (80-98); Mean Platelet Volume 9.3 fL (9.4-12.3); Monocytes Percent Auto 12.4 % (2-11); Neutrophils Absolute Auto 5.8 X10*3/uL (2.0-8.3); Neutrophils Percent Auto 71.1 % (45-73); Platelet Count 388 X10*3/uL (160-400); Red Blood Count 4.18 X10*6/uL (4.20-5.50); Red Cell Distribution Width 18.9 % (11.0-16.0); White Blood Count 8.2 X10*3/uL (4.8-10.8)
[2021-05-12 06:33] LABS: Anion Gap 15 (12-20); Blood Urea Nitrogen 17 mg/dL (9-16); Calcium 9.2 mg/dL (8.4-10.2); Carbon Dioxide 32 mmol/L (22-29); Chloride 100 mmol/L (96-108); Creatinine Clr Calc Pharmacy 42.3; Estimated Glomerular Filt Rate 49; Glucose Random 106 mg/dL (60-115); Potassium 3.5 mmol/L (3.3-5.1); Sodium 143 mmol/L (135-145)
--- NOTE | 2021-05-12 07:43 | PC.NURSE ---
rn to rn elizabeth gilliam on [facility] / [facility].
[2021-05-12 08:00] VITALS: BP 124/53; PULSE 85; RESP 18; TEMP 37.2; O2SAT 94
[2021-05-12] MEDS: Gabapentin 400 MG CAPSULE 800 MG PO ×3 (08:34→21:06)
[2021-05-12] MEDS: rOPINIRole HCL 0.5 MG TABLET PO ×4 (08:35→21:06)
[2021-05-12] MEDS: Torsemide 20 MG TABLET PO (08:35)
[2021-05-12] MEDS: Isosorbide Mononitrate 30 MG TAB.ER.24H PO (08:35)
[2021-05-12] MEDS: 0.9 % Sodium Chloride Flush 3 ML SYRINGE IVFLUSH ×2 (08:35→14:16)
[2021-05-12] MEDS: Metoprolol Succinate ER 25 MG TAB.ER.24H PO (08:35)
--- NOTE | 2021-05-12 09:25 | MHC.CM.PN ---
IMM 05/12/21, EMR REVIEWED, PT ADMITTED W/GI BLEED, PROCTITIS AND CONSTIPATION, CM MET W/PT AND WHO WAS AT BEDSIDE, PT A&OX4, PT INDEPENDENT W/ALL CARE, PT DOES HAVE A CANE, ROLLATER WALKER AND RAILINGS IN BR, PT IS ACTIVE W/[facility] AND HAS SN ONCE A WK AND OT/PT TWICE WEEKLY, PT VERIFIES PCP AND HCP WHICH IS NOT ON FILE AND COPY HAS BEEN REQUESTED. D/C PLAN: HOME W/RESUMP OF [facility], FAMILY FOR TRANSPORT PCP: AJAY PINK HCP: DONY CARCAMO (DTR) [phone] ALTERNATE: DAVID CAI [phone]
--- NOTE | 2021-05-12 09:50 | PM.GICN ---
History of Present Illness Data of Consult Service Date: 05/12/21 Primary Care Provider: Mick Tatum MD HPI Reason for consult: rectal bleeding 81-year-old female with past medical history of ulcerative colitis, DVT, HTN, CHF, prediabetes, who I am seeing for assessment for rectal bleeding. She presents to hospital with rectal bleeding. She had been constipated for 4 d priro to admission. She has seen bleeding before with wiping and mixed in with stool. SHe has been straining and also felt hemorrhoids popping out sometimes. Patient denies having any abdominal pain, denies having any nausea or vomiting, no chest pain. Labs with stable HGB of around 11 g/dl, CT imaging with proctitis and diverticulosis with stool filled colon. Current meds for IBD include imuran 50 mg an dbudesonide 3 mg daily. She has had prednisone on and off for flares of proctitis Last colonowcopy 2015 with narrow colon, diverticulosis and ulcerative proctosigmoiditis. BX with chronci inflammation. Last fecal calprotectin 1700 in January 2021 Review of Systems Review of Systems: All other systems are reviewed and are negative Constitutional: Reports as per HPI and Reports no additional constitutional complaints Eyes: Reports as per HPI and Reports no additional eye complaints Reports system reviewed and no additional complaints, except as documented Cardiovascular: Reports as per HPI and Reports no additional cardiovascular complaints Respiratory: Reports as per HPI and Reports no additional respiratory complaints Gastrointestinal: Reports as per HPI and Reports no additional gastrointestinal complaints Genitourinary: Reports no additional female genitourinary complaints Musculoskeletal: Reports no additional musculoskeletal complaints Skin/Breast: Reports system reviewed and no additional complaints, except as docu Psychiatric: Reports no additional psychiatric complaints Endocrine: Reports no additional endocrine complaints Hematologic/Lymphatic: Reports no additional hematologic/lymphatic complaints Allergic/Immunologic: Reports no additional allergic/immunologic complaints Reports system reviewed and no additional complaints, except as documented and Reports Abnormal speech present Yes all other systems are reviewed and are negative Constitutional: Constitutional: Denies chills and Denies fever(s) Cardiovascular: Cardiovascular: Denies chest pain Respiratory: Respiratory: Denies cough PMFSH Past Medical History Medical History (Updated 05/12/21 @ 05:54 by Elie Prince MD) Colitis DVT (deep venous thrombosis) History of CHF (congestive heart failure) HTN (hypertension) Pre-diabetes Restless leg syndrome Spinal abscess Family History Pertinent family history: No pertinent history Surgical History Surgical History Hx of shoulder surgery Social History Social History Household Members: Family Housing: House Alcohol intake: never Patient Tobacco Use Status: Never used Tobacco service: No Current occupational status: retired Meds Allergies Allergy/AdvReac Type Severity Reaction Status Date / Time dogs, cats etc.. Allergy Unknown Unknown Uncoded 12/02/20 13:00 barium Allergy Hives Uncoded 05/11/21 15:00 Active Medications: Current Medications Acetaminophen (Acetaminophen 325 Mg Tablet) 650 mg PO Q6H PRN PRN Reason: Pain, Mild (Pain Scale 1-3) Aspirin (Aspirin Enteric Coated 81 Mg Tablet.Dr) 81 mg PO DAILY [facility] Last Admin: 05/12/21 08:37 Dose: Not Given Documented by: Atorvastatin Calcium (Atorvastatin Calcium 40 Mg Tablet) 40 mg PO BEDTIME [facility] Azathioprine (Azathioprine 50 Mg Tablet) 50 mg PO DAILY [facility] Docusate Sodium (Docusate Sodium 100 Mg Capsule) 100 mg PO DAILY PRN PRN Reason: Constipation Dorzolamide/Timolol (Dorzolamide/Timolo 2.23%/0.68% 10 Ml Drbtl) 1 drop EYE-BOTH BID [facility] Gabapentin (Gabapentin 400 Mg Capsule) 800 mg PO TID [facility] Last Admin: 05/12/21 08:34 Dose: 800 mg Documented by: Isosorbide Mononitrate (Isosorbide Mononitrate 30 Mg Tab.Er.24h) 30 mg PO DAILY [facility]; Protocol Last Admin: 05/12/21 08:35 Dose: 30 mg Documented by: Latanoprost (Latanoprost 0.005 % Ophth Era 2.5 Ml Drops) 1 drop EYE-BOTH BEDTIME [facility] Magnesium Hydroxide (Milk Of Magnesia 30 Ml Oral.Susp) 15 ml PO BID PRN PRN Reason: Constipation Metoprolol Succinate (Metoprolol Succinate Er 25 Mg Tab.Er.24h) 25 mg PO DAILY [facility]; Protocol Last Admin: 05/12/21 08:35 Dose: 25 mg Documented by: Non-Formulary Medication (Budesonide) 3 mg PO DAILY [facility] Ondansetron HCl (Ondansetron Hcl 4 Mg/2 Ml Vial) 4 mg IVPUSH Q8H PRN PRN Reason: Nausea and Vomiting Pharmacy Consult (Consult Rx Perform Med Rec) 1 each MISCELLANE ONCE PRN PRN Reason: Consult order Polyethylene Glycol (Polyethylene Glycol 3350 17 Gm Powd.Pack) 17 gm PO DAILY [facility] Last Admin: 05/12/21 08:35 Dose: Not Given Documented by: Ropinirole HCl (Ropinirole Hcl 0.5 Mg Tablet) 0.5 mg PO QID [facility] Last Admin: 05/12/21 08:35 Dose: 0.5 mg Documented by: Sodium Chloride (0.9 % Sodium Chloride Flush 3 Ml Syringe) 3 ml IVFLUSH QSHIFT [facility] Last Admin: 05/12/21 08:35 Dose: 3 ml Documented by: Torsemide (Torsemide 20 Mg Tablet) 20 mg PO DAILY [facility]; Protocol Last Admin: 05/12/21 08:35 Dose: 20 mg Documented by: Home Medications Medication Instructions Recorded Confirmed Last Taken Type amlodipine 5 mg tablet 5 mg PO DAILY 12/02/20 05/11/21 05/11/21 History apixaban 5 mg tablet (Eliquis) 5 mg PO BID 12/02/20 05/11/21 05/11/21 History ropinirole 0.5 mg tablet 0.5 mg PO QID PRN 12/02/20 05/11/21 05/11/21 History aspirin 81 mg tablet,delayed 1 tab PO DAILY 05/11/21 05/11/21 05/11/21 History release atorvastatin 40 mg tablet 1 tab PO BEDTIME 05/11/21 05/11/21 05/10/21 History dorzolamide 22.3 mg-timolol 6.8 1 drp OPHTHALMIC (EYE) BID 05/11/21 05/11/21 05/11/21 History mg/mL eye drops gabapentin 400 mg capsule 800 mg PO TID 05/11/21 05/11/21 05/11/21 History isosorbide mononitrate 30 mg 1 tab PO DAILY 05/11/21 05/11/21 05/11/21 History tablet,extended release 24 hr latanoprost 0.005 % eye drops 1 drp OPHTHALMIC (EYE) BEDTIME 05/11/21 05/11/21 05/10/21 History metoprolol succinate 25 mg 1 tab PO DAILY 05/11/21 05/11/21 05/11/21 History tablet,extended release 24 hr torsemide 20 mg tablet 1 tab PO DAILY 05/11/21 05/11/21 05/11/21 History Physical Exam Vital Signs: Vital Signs: Last Vital Signs Temp 99.0 F 05/12/21 08:00 Pulse 85 05/12/21 08:00 Resp 18 05/12/21 08:00 BP 124/53 L 05/12/21 08:00 Pulse Ox 94 05/12/21 08:00 Body Mass Index 39.6 Const: General: cooperative and no acute distress Nutritional Appearance: well nourished Orientation/consciousness: patient oriented x3 HENMT: Head: Yes normocephalic and Yes atraumatic Eyes: General: appearance normal, both eyes and all related structures Sclerae: sclerae normal Pupils: Equal, round and reactive pupils present Chest: Chest palpation & inspection: normal inspection of the chest Resp: Effort & Inspection: normal respiratory effort Auscultation: clear to auscultation bilaterally Cardio: Rate: regular rate Rhythm: regular rhythm GI: Other: No tenderness, no rebound or guarding On rectal exam, patient does have external hemorrhoids but do not appear to be ulcerated or bleeding Inspection: No distended Palpation (GI): Soft to palpation Auscultation: normal bowel sounds Skin: General skin exam: no rashes or lesions noted Neuro: General: patient oriented x3 Cranial nerves: Yes Equal, round and reactive pupils present Cognition (Neuro): normal cognition Extrem: General: Yes normal to inspection and Yes no pedal edema Results Labs CBC & Chem 7: 05/12/21 05:49 05/12/21 05:49 Labs: Short CBC 05/11/21 05/12/21 Range/Units 13:00 05:49 WBC 9.5 8.2 (4.8-10.8) X10*3/uL Hgb 11.9 L 11.1 L (12.0-16.0) g/dl Hct 38.7 35.6 L (37-47) % Plt Count 419 H D 388 (160-400) X10*3/uL BMP 05/11/21 05/12/21 17:49 05:49 Sodium 141 143 Potassium 3.6 3.5 Chloride 98 100 Carbon Dioxide 32 H 32 H BUN 16 D 17 H Creatinine 1.27 1.08 Calcium 9.5 9.2 Liver Function 05/11/21 Range/Units 17:49 Total Bilirubin 1.2 H (0.0-1.0) mg/dL AST 40 H (5-31) U/L ALT 18 (0-31) U/L Alkaline Phosphatase 74 D (39-117) U/L Albumin 3.6 (3.5-5.0) g/dL Urine 05/11/21 Range/Units 22:03 Urine Color BROWN Urine Appearance TURBID Urine pH TNP Ur Specific [place] TNP Urine Protein TNP Urine Glucose (UA) TNP Assessment and Plan (1) Hemorrhoids: Status: Acute (2) Ulcerative colitis: Status: Acute (3) Constipation: Status: Acute 1/ Low level bleeding probablly from ongoing proctitis which maybe stercoral in origin or due to her underlying IBD as well as hemorrhoidal origin and exacerbated by eliquis use. Her constipation maybe worse due to stricture or dysmotility PLAN: 1/ Increase budeosnide to 9 mg and taper over next few months 2/ recommend adding anusol or proctofoam if patient can take 3/ sitz bath daily with epsom salts 4/ miralax bid ans colace 5. check thiopurine metabolite levels suspect she is underdosed, in the longer run might benefit from entyvio 6/ cnt with eliquis if no sign drop in HGB, consider giving some IV Iron 7/ o/p colonoscopy for further assessment Procedures Date of Service Date of Service: 05/12/21
[2021-05-12] MEDS: azaTHIOprine 50 MG TABLET PO (10:49)
[2021-05-12 11:43] VITALS: BP 96/48; PULSE 77; RESP 18; TEMP 36.9; O2SAT 96
[2021-05-12 15:14] VITALS: BP 105/51; PULSE 73; RESP 18; TEMP 36.7; O2SAT 92
[2021-05-12 16:15] LABS: Iron 32 mcg/dL (30-160); Percent Iron Saturation 9 % (15-50); Total Iron Binding Capacity 365 mcg/dL (228-428); Unsaturated Iron Binding 333 ug/dL
--- NOTE | 2021-05-12 16:24 | HO.PM.IMPN ---
Subjective Subjective Date of Service: 05/12/21 Interval History: seen and examined this morning follow up for constipation/gi bleeding no further gi bleeding has been having small episodes of diarrhea Review of Systems Review of Systems: Yes all other systems are reviewed and are negative Constitutional Constitutional: Denies chills and Denies fever(s) Cardiovascular Cardiovascular: Denies chest pain Respiratory Respiratory: Denies cough Physical Exam Vital Signs: Vital Signs: Last Vital Signs Temp 98.0 F 05/12/21 15:14 Pulse 73 05/12/21 15:14 Resp 18 05/12/21 15:14 BP 105/51 L 05/12/21 15:14 Pulse Ox 92 05/12/21 15:14 Body Mass Index 39.6 Const: Nutritional Appearance: well nourished Orientation/consciousness: patient oriented x3 HENMT: Head: Yes normocephalic and Yes atraumatic Eyes: Sclerae: sclerae normal Chest: Chest palpation & inspection: normal inspection of the chest Resp: Effort & Inspection: normal respiratory effort and no respiratory distress Cardio: Rate: regular rate Rhythm: regular rhythm GI: Inspection: No distended Palpation (GI): Soft to palpation and nontender Neuro: General: patient oriented x3 Cranial nerves: Yes CN's II-XII intact bilaterally and Yes Bilaterally intact EOM present Objective Data Active Medications Acetaminophen (Acetaminophen 325 Mg Tablet) 650 mg PO Q6H PRN PRN Reason: Pain, Mild (Pain Scale 1-3) Aspirin (Aspirin Enteric Coated 81 Mg Tablet.) 81 mg PO DAILY [facility] Last Admin: 05/12/21 08:37 Dose: Not Given Documented by: TIANA Non-Admin Reason: hold per provider Atorvastatin Calcium (Atorvastatin Calcium 40 Mg Tablet) 40 mg PO BEDTIME [facility] Azathioprine (Azathioprine 50 Mg Tablet) 50 mg PO DAILY [facility] Last Admin: 05/12/21 10:49 Dose: 50 mg Documented by: TIANA Docusate Sodium (Docusate Sodium 100 Mg Capsule) 100 mg PO DAILY PRN PRN Reason: Constipation Dorzolamide/Timolol (Dorzolamide/Timolo 2.23%/0.68% 10 Ml Drbtl) 1 drop EYE-BOTH BID [facility] Last Admin: 05/12/21 10:49 Dose: Not Given Documented by: TIANA Non-Admin Reason: Med Not Available Gabapentin (Gabapentin 400 Mg Capsule) 800 mg PO TID [facility] Last Admin: 05/12/21 14:15 Dose: 800 mg Documented by: TIANA Isosorbide Mononitrate (Isosorbide Mononitrate 30 Mg Tab.Er.24h) 30 mg PO DAILY [facility]; Protocol Last Admin: 05/12/21 08:35 Dose: 30 mg Documented by: TIANA Latanoprost (Latanoprost 0.005 % Ophth Era 2.5 Ml Drops) 1 drop EYE-BOTH BEDTIME [facility] Magnesium Hydroxide (Milk Of Magnesia 30 Ml Oral.Susp) 15 ml PO BID PRN PRN Reason: Constipation Metoprolol Succinate (Metoprolol Succinate Er 25 Mg Tab.Er.24h) 25 mg PO DAILY [facility]; Protocol Last Admin: 05/12/21 08:35 Dose: 25 mg Documented by: TIANA Pt Own Med ( Budesonide Ec 3mg Capsule) 3 each PO DAILY [facility] Ondansetron HCl (Ondansetron Hcl 4 Mg/2 Ml Vial) 4 mg IVPUSH Q8H PRN PRN Reason: Nausea and Vomiting Pharmacy Consult (Consult Rx Perform Med Rec) 1 each MISCELLANE ONCE PRN PRN Reason: Consult order Polyethylene Glycol (Polyethylene Glycol 3350 17 Gm Powd.Pack) 17 gm PO DAILY [facility] Last Admin: 05/12/21 08:35 Dose: Not Given Documented by: TIANA Non-Admin Reason: losse stool Pramoxine HCl (Pramoxine Hcl 1 % Rectal Foam 15 Gm) 1 appl DE DAILY [facility] Ropinirole HCl (Ropinirole Hcl 0.5 Mg Tablet) 0.5 mg PO QID [facility] Last Admin: 05/12/21 14:15 Dose: 0.5 mg Documented by: TIANA Sodium Chloride (0.9 % Sodium Chloride Flush 3 Ml Syringe) 3 ml IVFLUSH QSHIFT [facility] Last Admin: 05/12/21 14:16 Dose: 3 ml Documented by: TIANA Torsemide (Torsemide 20 Mg Tablet) 20 mg PO DAILY [facility]; Protocol Last Admin: 05/12/21 08:35 Dose: 20 mg Documented by: TIANA Labs CBC & Chem 7: 05/12/21 05:49 05/12/21 05:49 Labs: Laboratory Results - last 24 hr 05/11/21 05/11/2121 13:00 16:50 16:50 MCV 86.0 MCH 26.4 L MCHC 30.7 L RDW 18.9 H Plt Count 419 H D MPV 9.5 Immature Gran % (Auto) 0.3 Neut % (Auto) 74.9 H Lymph % (Auto) 13.2 L [place]oke % (Auto) 9.4 Eos % (Auto) 1.5 Baso % (Auto) 0.7 Lymph # (Auto) 1.3 [place]oke # (Auto) 0.9 Eos # (Auto) 0.1 Baso # (Auto) 0.1 Abs Immat Gran (auto) 0.03 Absolute Neuts (auto) 7.1 Absolute Nucleated RBC 0.000 Nucleated RBC % (auto) 0.0 PT 19.1 H INR 1.7 H APTT 40.1 H Anion Gap Estim Creat Clear Calc Estimated GFR Random Glucose Calcium Iron TIBC % Saturation Unsat Iron Binding Total Bilirubin AST ALT Alkaline Phosphatase Troponin I High Sens 6.5 B-Natriuretic Peptide 55 Total Protein Albumin Urine Color Urine Appearance Urine pH Ur Specific [place] Urine Protein Urine Glucose (UA) Urine Ketones Urine Blood Urine Nitrite Ur Leukocyte Esterase Urine RBC Urine WBC Ur Squamous Epith Cells Amorphous Sediment Urine Bacteria Stool Occult Blood Coronavirus (PCR) Influenza Type A (PCR) Influenza Type B (PCR) RSV RNA Qual (PCR) 05/11/21 05/11/21 05/11/21 16:50 17:10 17:49 MCV MCH MCHC RDW Plt Count MPV Immature Gran % (Auto) Neut % (Auto) Lymph % (Auto) Hoke % (Auto) Eos % (Auto) Baso % (Auto) Lymph # (Auto) [place] # (Auto) Eos # (Auto) Baso # (Auto) Abs Immat Gran (auto) Absolute Neuts (auto) Absolute Nucleated RBC Nucleated RBC % (auto) PT INR APTT Anion Gap 15 Estim Creat Clear Calc 36.0 Estimated GFR 40 Random Glucose 112 Calcium 9.5 Iron TIBC % Saturation Unsat Iron Binding Total Bilirubin 1.2 H AST 40 H ALT 18 Alkaline Phosphatase 74 D Troponin I High Sens B-Natriuretic Peptide Total Protein 6.3 L Albumin 3.6 Urine Color Urine Appearance Urine pH Ur Specific [place] Urine Protein Urine Glucose (UA) Urine Ketones Urine Blood Urine Nitrite Ur Leukocyte Esterase Urine RBC Urine WBC Ur Squamous Epith Cells Amorphous Sediment Urine Bacteria Stool Occult Blood POSITIVE Coronavirus (PCR) NEGATIVE Influenza Type A (PCR) NEGATIVE Influenza Type B (PCR) NEGATIVE RSV RNA Qual (PCR) NEGATIVE 05/11/21 05/12/21 05/12/21 22:03 05:49 05:49 MCV 85.2 MCH 26.6 L MCHC 31.2 RDW 18.9 H Plt Count 388 MPV 9.3 L Immature Gran % (Auto) 0.5 H Neut % (Auto) 71.1 Lymph % (Auto) 13.5 L [place]oke % (Auto) 12.4 H Eos % (Auto) 1.6 Baso % (Auto) 0.9 Lymph # (Auto) 1.1 L [place] # (Auto) 1.0 Eos # (Auto) 0.1 Baso # (Auto) 0.1 Abs Immat Gran (auto) 0.04 H Absolute Neuts (auto) 5.8 Absolute Nucleated RBC 0.000 Nucleated RBC % (auto) 0.0 PT INR APTT Anion Gap 15 Estim Creat Clear Calc 42.3 Estimated GFR 49 Random Glucose 106 Calcium 9.2 Iron 32 TIBC 365 % Saturation 9 L Unsat Iron Binding 333 Total Bilirubin AST ALT Alkaline Phosphatase Troponin I High Sens B-Natriuretic Peptide Total Protein Albumin Urine Color BROWN Urine Appearance TURBID Urine pH TNP Ur Specific [place] TNP Urine Protein TNP Urine Glucose (UA) TNP Urine Ketones TNP Urine Blood TNP Urine Nitrite TNP Ur Leukocyte Esterase TNP Urine RBC TNTC H Urine WBC 5-9 H Ur Squamous Epith Cells TRACE Amorphous Sediment 2+ Urine Bacteria 3+ Stool Occult Blood Coronavirus (PCR) Influenza Type A (PCR) Influenza Type B (PCR) RSV RNA Qual (PCR) Assessment and Plan (1) Constipation: Status: Acute (2) Acute GI bleeding: Status: Acute (3) Acute proctitis: Status: Acute (4) Hemorrhoids: Status: Acute (5) Ulcerative colitis: Status: Acute Assessment and Plan: This is an 81-year-old female who presents to the hospital with constipation as well as GI bleed acute GI bleeding possible UC flare vs proctitis -will increase dose of budesonide -sitz baths daily -monitor CBC -continue home azathioprine -seen by GI, appreciate recs constipation received enema, has had BM -continue bowel regimen -Check KUB DVT - given the acute GI bleed will hold apixaban hypertension BP soft -hold norvasc, torsemide history of CHF -not in exacerbation -hold torsemide for soft BP -monitor fluid status closely restless leg syndrome - continue ropinirole DVT prophylaxis: SCDs attending: dr. Rockwell Quality Stroke Does the patient have a stroke diagnosis?: No VTE Prior VTE?: No VTE Risk Level:: Medical - moderate - high VTE Device Contraindication: N/A - Device Ordered VTE Drug Contraindication: Treatment Not Indicated
[2021-05-12 16:34] LABS: Ferritin 118 ng/mL (10-250)
[2021-05-12] MEDS: Pramoxine HCl 1 % Rectal Foam 15 GM 1 APPL PR (16:50)
[2021-05-12 19:47] VITALS: BP 110/57; PULSE 75; RESP 18; TEMP 36.8; O2SAT 92
[2021-05-12] MEDS: Atorvastatin Calcium 40 MG TABLET PO (21:06)
[2021-05-12] MEDS: Latanoprost 0.005 % Ophth Sol 2.5 ML DROPS 1 DROP EYE-BOTH (21:06)
[2021-05-12] MEDS: Dorzolamide/Timolo 2.23%/0.68% 10 ML DRBTL 1 DROP EYE-BOTH (21:06)
[2021-05-13] VITALS: BP 113/53; PULSE 73; RESP 18; TEMP 36; O2SAT 92
[2021-05-13] MEDS: 0.9 % Sodium Chloride Flush 3 ML SYRINGE IVFLUSH ×2 (00:46→09:21)
[2021-05-13 04:00] VITALS: BP 97/48; PULSE 60; RESP 17; TEMP 36.4; O2SAT 97
[2021-05-13 06:17] LABS: Hematocrit 33.4 % (37-47); Hemoglobin 10.4 g/dl (12.0-16.0); Mean Corpuscular HGB Conc 31.1 g/dl (31.0-35.0); Mean Corpuscular Hemoglobin 26.5 pg (27.0-33.0); Mean Corpuscular Volume 85.2 fL (80-98); Mean Platelet Volume 9.2 fL (9.4-12.3); Platelet Count 322 X10*3/uL (160-400); Red Blood Count 3.92 X10*6/uL (4.20-5.50); White Blood Count 5.7 X10*3/uL (4.8-10.8)
[2021-05-13 07:30] VITALS: BP 110/51; PULSE 66; RESP 20; TEMP 36.8; O2SAT 94
[2021-05-13] MEDS: Docusate Sodium 100 MG CAPSULE PO (09:21)
[2021-05-13] MEDS: Aspirin Enteric Coated 81 MG TABLET.DR PO (09:21)
[2021-05-13] MEDS: Gabapentin 400 MG CAPSULE 800 MG PO (09:21)
[2021-05-13] MEDS: azaTHIOprine 50 MG TABLET PO (09:21)
[2021-05-13] MEDS: rOPINIRole HCL 0.5 MG TABLET PO (09:21)
[2021-05-13 09:22] VITALS: BP 110/51; PULSE 66
[2021-05-13] MEDS: polyethylene glycoL 3350 17 GM POWD.PACK PO (09:22)
[2021-05-13] MEDS: Metoprolol Succinate ER 25 MG TAB.ER.24H PO (09:22)
[2021-05-13] MEDS: Isosorbide Mononitrate 30 MG TAB.ER.24H PO (09:22)
[2021-05-13] MEDS: Pramoxine HCl 1 % Rectal Foam 15 GM 1 APPL PR (09:23)
[2021-05-13] MEDS: Dorzolamide/Timolo 2.23%/0.68% 10 ML DRBTL 1 DROP EYE-BOTH (09:23)
--- NOTE | 2021-05-13 09:39 | PM.DS ---
DS: Providers Provider Date of Service: 05/13/21 Date of admission: 05/11/21 21:58 Primary care physician: Mick Tatum MD Consults: 05/12/21 05:46 Consult to Gastroenterology Routine Consulting Provider: Gareth Gerardo Reason for consultation: GI bleed/consipation Has provider been notified: No Attending physician on discharge: Agustín Rockwell DS: Diagnosis Discharge Diagnosis (1) Acute GI bleeding: Status: Acute (2) Acute proctitis: Status: Acute (3) Ulcerative colitis: Status: Acute (4) Hemorrhoids: Status: Acute (5) Constipation: Status: Acute DS: Summary Hospital Course Hospital Course: HPI from admitting H&P: this is an 81-year-old female with past medical history of ulcerative colitis, DVT, HTN, prediabetes, who presents to the hospital with complaints of severe constipation as well as 2 episodes of red blood per rectum after straining.? Patient reports that she has been constipated for the past 4 days, she started having concerns because she felt that she was unable to move her bowels and started having incontinence of diarrhea even though she was unable to have a proper bowel movement, she also started having pain bright blood per rectum after her last 2 bowels and therefore presented to the hospital.? Patient denies having any abdominal pain, denies having any nausea or vomiting, no chest pain, no palpitations, no dizziness or change in vision.? No headache, no urinary symptoms and no lower extremity edema.? Patient does report history of hemorrhoids. On initial presentation patient hemodynamically stable with a blood pressure of 93/39 that improved to 109/50 and is currently 120/54 Labs are significant for PT of 19.1, INR of 1.7, otherwise unremarkable.? Stool occult blood positive, Abdominal CT shows acute proctitis and stool-filled sigmoid colon. Patient will be admitted for further management Hospital Course: Patient presented with complaints of constipation acute lower bleed in the setting of chronic anticoagulation use. Her CT scan showed acute proctitis with significant stool burden. She was given multiple laxatives and enemas with improvement in her constipation. Her lower GI bleed was self-limited. Due to the patient's history of ulcerative colitis, gastroenterology saw the patient and recommended an increase in her baseline budesonide of 3 mg to 9 mg with a taper over the next few months. She will be followed up in the Gastroenterology Clinic for this. Patient did have an initial drop in her H&H but has subsequently remained stable and therefore her Eliquis will be resumed. A repeat CBC has been ordered for 4-5 days from discharge. Time Spent with Patient Time attestation: Total time spent providing and/or coordinating discharge services: Discharge coordination time: Greater than 30 minutes Quality: Stroke Does the patient have a stroke diagnosis?: No Physical Exam Vital Signs: Vital Signs: Last Vital Signs Temp 98.2 F 05/13/21 07:30 Pulse 66 05/13/21 09:22 Resp 20 05/13/21 07:30 BP 110/51 L 05/13/21 09:22 Pulse Ox 94 05/13/21 07:30 Body Mass Index 39.6 Const: Other: General - no acute distress, appears comfortable Cardiovascular - regular rate and rhythm, S1-S2 Lungs - normal respiratory effort, clear to auscultation bilaterally, no wheezing Abdomen - soft, nontender, no rebound or guarding Extremities - no edema bilaterally Neuro - awake and alert, no focal deficits DS: Data Data Completed and Pending Labs on day of discharge: Laboratory Results - last 24 hr 05/12/21 05/13/21 05:49 05:58 WBC 5.7 RBC 3.92 L Hgb 10.4 L Hct 33.4 L MCV 85.2 MCH 26.5 L MCHC 31.1 RDW 19.0 H Plt Count 322 MPV 9.2 L Absolute Nucleated RBC 0.000 Nucleated RBC % (auto) 0.0 Iron 32 TIBC 365 % Saturation 9 L Unsat Iron Binding 333 Ferritin 118 Discharge Plan Discharge Patient Disposition: Home Health Service Discharge Diagnosis: Colitis, possible UC flare Referrals: [facility] [Outside] - 1 Week Mick Tatum MD [Primary Care Provider] - 1 Week Discharge Medications: New budesonide 3 mg capsule,delayed,extend.release 9 mg PO DAILY Qty: 100 RF: 0 hydrocortisone [Procto-Med HC] 2.5 % cream with perineal applicator 1 appl [place] DAILY PRN (Reason: hemorrhoids) Qty: 30 RF: 0 Continued latanoprost 0.005 % drops 1 drp ophthalmic (eye) BEDTIME RF: 0 atorvastatin 40 mg tablet 1 tab PO BEDTIME RF: 0 torsemide 20 mg tablet 1 tab PO DAILY RF: 0 isosorbide mononitrate 30 mg tablet extended release 24 hr 1 tab PO DAILY RF: 0 gabapentin 400 mg capsule 800 mg PO TID RF: 0 aspirin 81 mg tablet,delayed release (DR/EC) 1 tab PO DAILY RF: 0 dorzolamide-timolol 22.3-6.8 mg/mL drops 1 drp ophthalmic (eye) BID RF: 0 metoprolol succinate 25 mg tablet extended release 24 hr 1 tab PO DAILY RF: 0 ropinirole 0.5 mg tablet 0.5 mg PO QID PRN (Reason: Restless Leg(S)) RF: 0 amlodipine 5 mg tablet 5 mg PO DAILY RF: 0 Eliquis 5 mg tablet 5 mg PO BID RF: 0 azathioprine [Imuran] 50 mg tablet 50 mg PO DAILY 90 Days Qty: 90 RF: 2 Discontinued budesonide 3 mg capsule,delayed,extend.release 3 mg PO DAILY Qty: 30 RF: 3 Discharge Orders: Discharge Order (Routine); Ordered 05/13/21 Ordered By: Agustín Rockwell Diet: advance to usual diet Activity on Discharge: As tolerated Stand Alone Forms: Patient Portal Discharge page Other Ambulatory Orders: Complete Blood Count no Diff (Routine) Timeframe: [id number] Facility: [facility] - Location: Laboratory Ordered By: Agustín Rockwell Care Plan Goals: To stay healthy and out of the hospital. Health Concerns: Ulcerative Colitis Consitpation Hemmorhoids Plan of Treatment: Increase Budesonide from 3mg to 9mg daily (prescription has been sent by Dr. Gerardo). Follow up with GI clinic. For your hemorrhoids take Russ form suppositories as needed. Assessment: 81 yo with UC on budesonide, on OAC presenting with abdominal symptoms due to UC vs proctitis vs stercoral colitis.
--- NOTE | 2021-05-13 09:45 | MHC.CM.PN ---
PT WILL DC HOME TODAY WITH RESUMPTION OF SN/PT/OT SERVICES THROUGH [facility]. [facility] NOTIFIED VIA [employer] PTS WILL TRANSPORT
[2021-05-19 22:05] LABS: 6-MMPN <500 (<5700); 6-TGN 265 (235-400)
== END 2021-05-13 11:45 | disposition home health service (06) | DRG 394 ==
LOC: HO.ED 20:14 → HO.EDOVER 22:15 → HO.S3 05-12 07:13
PROVIDERS: Internal Medicine Gastroenterology; Admitting Provider Internal Medicine; Emergency Provider Emergency Medicine; PCP Family Medicine; Visit Provider Physician Assistant Medical
DX: K62.89 Other specified diseases of anus and rectum (principal); K92.2 Gastrointestinal hemorrhage, unspecified; K51.90 Ulcerative colitis, unspecified, without complications; G25.81 Restless legs syndrome; K59.00 Constipation, unspecified; K64.4 Residual hemorrhoidal skin tags; I11.0 Hypertensive heart disease with heart failure; R73.03 Prediabetes; K64.8 Other hemorrhoids; I50.9 Heart failure, unspecified; Z86.718 Personal history of other venous thrombosis and embolism; Z20.822 Contact with and (suspected) exposure to COVID-19; Z79.01 Long term (current) use of anticoagulants; Z79.82 Long term (current) use of aspirin; Z79.899 Other long term (current) drug therapy
CPT/HCPCS: 0241U; 36415; 74018; 74176; 80048; 80053; 81003; 82272; 82728; 83540; 83880; 84484; 85025; 85027; 85610; 85730; 93005; 99285

== ENCOUNTER 2021-05-18 10:14 | Outpatient (REF) | payer MEDICARE, SELFPAY ==
[2021-05-18 11:34] LABS: Hematocrit 34.7 % (37-47); Hemoglobin 10.5 g/dl (12.0-16.0); Mean Corpuscular HGB Conc 30.3 g/dl (31.0-35.0); Mean Corpuscular Hemoglobin 26.1 pg (27.0-33.0); Mean Corpuscular Volume 86.1 fL (80-98); Mean Platelet Volume 9.7 fL (9.4-12.3); Platelet Count 415 X10*3/uL (160-400); Red Blood Count 4.03 X10*6/uL (4.20-5.50); Red Cell Distribution Width 18.3 % (11.0-16.0); White Blood Count 7.1 X10*3/uL (4.8-10.8)
[2021-05-25 11:01] LABS: Prom Thiopurine Metabolites SEE SEPARATE REPORT
== END 2021-05-18 10:15 | disposition home or self-care (01) ==
LOC: HO.HMGCLDS 10:14
PROVIDERS: Nurse Practitioner; Absent Provider Internal Medicine Gastroenterology; PCP Family Medicine; Referring Provider Family Medicine; Visit Provider Family Medicine
DX: K51.90 Ulcerative colitis, unspecified, without complications (principal); K92.2 Gastrointestinal hemorrhage, unspecified
CPT/HCPCS: 36415; 80299; 85027

== ENCOUNTER → 2021-06-14 15:18 | Outpatient (BNVA) | payer MEDICARE, SELFPAY | PROVIDERS: PCP Family Medicine; Visit Provider Nurse Practitioner | CPT/HCPCS: Q3014 ==

== ENCOUNTER 2021-06-28 11:07 | Outpatient (REF) | payer MEDICARE, SELFPAY ==
[2021-07-06 11:36] LABS: Prom Thiopurine Metabolites SEE SEPARATE REPORT
== END 2021-06-28 11:08 | disposition home or self-care (01) ==
LOC: HO.HMGCLDS 11:07
PROVIDERS: PCP Family Medicine; Visit Provider Nurse Practitioner
DX: K51.90 Ulcerative colitis, unspecified, without complications (principal)
CPT/HCPCS: 36415; 80299

== ENCOUNTER 2022-01-23 13:31 | Emergency (ER) | payer MEDICARE, SELFPAY ==
--- NOTE | 2022-01-23 14:00 | ED.GENADULT ---
HPI - General Adult General Chief complaint: Nausea/Vomiting/Diarrhea Stated complaint: N/V/D X 1 WEEK Time Seen by Provider: 01/23/22 13:37 Source: patient and EMS Mode of arrival: EMS Limitations: no limitations History of Present Illness HPI narrative: Patient comes to emergency room complaining of nausea vomiting and diarrhea. Patient states it has been present for about a week. Patient states that she was recently discharged from [facility] a few days ago, states that she was there for ALTAGRACIA, likely secondary to diarrhea. Patient states that 2 weeks ago she ran out of oral budesonide for her ulcerative colitis and since then, the diarrhea has been getting worse. Patient denies black stool or blood. Patient denies abdominal pain, feeling slightly nauseous, had 1 episode of vomiting early today. Denies URI or UTI symptoms, no fever or chills. Patient states she has not taking any [id number] medication for the nausea or diarrhea. Related Data Home Medications Medication Instructions Recorded Confirmed amlodipine 5 mg tablet 5 mg PO DAILY 12/02/20 05/11/21 apixaban 5 mg tablet (Eliquis) 5 mg PO BID 12/02/20 05/11/21 ropinirole 0.5 mg tablet 0.5 mg PO QID PRN Restless Leg(S) 12/02/20 05/11/21 aspirin 81 mg tablet,delayed 1 tab PO DAILY 05/11/21 05/11/21 release atorvastatin 40 mg tablet 1 tab PO BEDTIME 05/11/21 05/11/21 dorzolamide 22.3 mg-timolol 6.8 1 drp ophthalmic (eye) BID 05/11/21 05/11/21 mg/mL eye drops gabapentin 400 mg capsule 800 mg PO TID 05/11/21 05/11/21 isosorbide mononitrate 30 mg 1 tab PO DAILY 05/11/21 05/11/21 tablet,extended release 24 hr latanoprost 0.005 % eye drops 1 drp ophthalmic (eye) BEDTIME 05/11/21 05/11/21 metoprolol succinate 25 mg 1 tab PO DAILY 05/11/21 05/11/21 tablet,extended release 24 hr torsemide 20 mg tablet 1 tab PO DAILY 05/11/21 05/11/21 Previous Rx's Medication Instructions Recorded hydrocortisone 2.5 % topical cream 1 appl SD DAILY PRN hemorrhoids 05/13/21 with perineal applicator #30 grams (Procto-Med HC) azathioprine 50 mg tablet (Imuran) 100 mg PO DAILY 90 days #180 tabs 06/22/21 famotidine 40 mg tablet (Pepcid) 40 mg PO BEDTIME 30 days #30 tabs 08/05/21 budesonide 3 mg 9 mg PO DAILY #90 caps 11/01/21 capsule,delayed,extended release budesonide 3 mg 9 mg PO QAM 10 days #30 ea 01/23/22 capsule,delayed,extended release loperamide 2 mg capsule 2 mg PO Q4H PRN loose stool #20 01/23/22 caps ondansetron 4 mg disintegrating 4 mg PO Q6H PRN nausea and 01/23/22 tablet vomiting #20 tabs Allergies Allergy/AdvReac Type Severity Reaction Status Date / Time dogs, cats etc.. Allergy Unknown Unknown Uncoded 12/02/20 13:00 barium Allergy Hives Uncoded 05/11/21 15:00 Review of Systems Review of Systems: Constitutional : No Weight loss, No Fever, No Chills, No Night Sweats, No Fatigue, No Malaise ENT/Mouth : No Hearing loss, No Ear Pain, No Nasal Congestion, No Sinus Pain, No Hoarseness, No sore throat, No Rhinorrhea, No Swallowing Difficulty Eyes: No Eye Pain, No Swelling, No Redness, No Foreign Body, No Discharge, No Vision Changes Cardiovascular : No Chest Pain, No SOB, No Dyspnea on Exertion, No Orthopnea, No Edema, No Palpitations Respiratory : No Cough, No Sputum, No Wheezing, No Smoke Exposure, No Dyspnea Gastrointestinal : Complaining of nausea, vomiting, diarrhea. Denies constipation, no abdominal pain, no black stool or rectal bleeding. Genitourinary : no irregular bleeding, No Dysuria, No Urinary Frequency, No Hematuria, No Urinary Incontinence, No Urgency, No Flank Pain, No Urinary Flow Changes, No Hesitancy Musculoskeletal : No joint pain, No Myalgias, No Joint Swelling Skin : No Skin Lesions, No rash Neuro : No Weakness, No Numbness, No Paresthesias, No Loss of Consciousness, No Dizziness, No Headache Psych : No Anxiety/Panic, No Depression, No SI/HI/AH/VH, No Social Issues, Heme/Lymph: No Bruising, No Bleeding,No Lymphadenopathy Endocrine : No Polyuria, No Polydipsia, No Temperature Intolerance [facility] Past Medical History Medical History Acute proctitis Colitis Constipation DVT (deep venous thrombosis) Hemorrhoids History of CHF (congestive heart failure) HTN (hypertension) Pre-diabetes Restless leg syndrome Spinal abscess Ulcerative colitis Surgical History Hx of shoulder surgery Social History Social History Household Members: Family Housing: House Alcohol intake: never Patient Tobacco Use Status: Never used Tobacco Advance Directives: No Advance Directives Information Provided: Yes service: No Current occupational status: retired Physical Exam ED Vital Signs: Vital Signs - 24 hr 01/23/22 14:04 Temperature 98.8 F Pulse Rate 86 Respiratory Rate 19 Blood Pressure 128/64 Pulse Oximetry 93 Oxygen Delivery Method Room Air BMI result Body Mass Index 37.6 Const Other: Appearance: Alert. Oriented X3. No acute distress. Eyes: Pupils equal, round and reactive to light. ENT: Pharynx normal. Neck: Normal inspection. Neck supple. No lymph nodes noted. No crepitus CVS: Normal heart rate and rhythm. Pulses normal. Normal S1 and S2 Respiratory: No respiratory distress. Breath sounds normal. No Wheezing. No rales Abdomen: Soft and nontender. No rigidity. No distention. Skin: Skin warm and dry. Normal skin color. Normal skin turgor. Extremities: +2 pitting edema bilaterally, No Lacerations. No Rash Neuro: Oriented X 3. No motor deficit. No sensory deficit. Moving all extremities. No slurred speech. CN 2 through 12 grossly intact Psych: calm, cooperative, normal affect Course Course Course Narrative: I discussed the labs with Dr. Chowdhury, patient does not have acute kidney injury, lactic acid within normal limits, CRP and ESR slightly bumped Patient has no abdominal pain at this time, on physical exam she did not have any pain either. Imaging not recommended at this time Patient received IV fluids, loperamide p.o. and IV Solu-Medrol. Recommendations per GI: Start p.o. budesonide 9 mg for a week, have close follow-up with Dr. Gerardo/GI Patient did not have any episodes of diarrhea or vomiting in the ED Medical Decision Making Lab Data Result diagrams: 01/23/22 14:28 01/23/22 14:28 Labs: Lab Results 01/23/22 01/23/22 01/23/22 Range/Units 14:28 14:28 14:28 WBC 4.5 L (4.8-10.8) X10*3/uL RBC 4.86 (4.20-5.50) X10*6/uL Hgb 12.1 (12.0-16.0) g/dl Hct 38.1 (37.0-47.0) % MCV 78.4 L (80.0-98.0) fL MCH 24.9 L (27.0-33.0) pg MCHC 31.8 (31.0-35.0) g/dl RDW 25.7 H (11.0-16.0) % Plt Count 324 (160-400) X10*3/uL MPV 8.7 L (9.4-12.3) fL Immature Gran % (Auto) 0.4 (0.0-0.4) % Neut % (Auto) 57.7 (45-73) % Lymph % (Auto) 17.2 L (20-40) % [place] % (Auto) 18.3 H (2-11) % Eos % (Auto) 5.7 H (0-4) % Baso % (Auto) 0.7 (0-2) % Lymph # (Auto) 0.8 L (1.2-4.9) X10*3/uL [place] # (Auto) 0.8 (0.1-1.2) X10*3/uL Eos # (Auto) 0.3 (0.0-0.4) X10*3/uL Baso # (Auto) 0.0 (0.0-0.2) X10*3/uL Abs Immat Gran (auto) 0.02 (0.00-0.03) X10*3/uL Absolute Neuts (auto) 2.6 (2.0-8.3) x10*3/uL Absolute Nucleated RBC 0.000 (0.0-0.012) X10*3/uL Nucleated RBC % (auto) 0.0 (0.0-0.2) /100WBC ESR (0-20) MM/HR Sodium 141 (135-145) mmol/L Potassium 4.2 (3.3-5.1) mmol/L Chloride 106 (96-108) mmol/L Carbon Dioxide 25 (22-29) mmol/L Anion Gap 14 (12-20) BUN 8 L (9-16) mg/dL Creatinine 0.87 (0.5-1.4) mg/dL Estim Creat Clear Calc 53.0 Estimated GFR > 60 Random Glucose 92 (60-115) mg/dL Lactic Acid 1.0 (0.5-2.0) mmol/L Calcium 8.6 D (8.4-10.2) mg/dL Magnesium 2.0 (1.6-2.6) mg/dL Total Bilirubin 0.9 (0.0-1.0) mg/dL Direct Bilirubin 0.5 (0.0-0.5) mg/dL AST 24 (5-31) U/L ALT 18 (0-31) U/L Alkaline Phosphatase 83 (39-117) U/L C-Reactive Protein 1.55 H (< or = 0.50) mg/dL Total Protein 5.3 L (6.5-8.0) g/dL Albumin 3.2 L (3.5-5.0) g/dL Lipase 19 (8-78) U/L COVID-19 ([facility]) (Negative) COVID-19 Clin Com 01/23/22 01/23/22 Range/Units 14:28 14:28 WBC (4.8-10.8) X10*3/uL RBC (4.20-5.50) X10*6/uL Hgb (12.0-16.0) g/dl Hct (37.0-47.0) % MCV (80.0-98.0) fL MCH (27.0-33.0) pg MCHC (31.0-35.0) g/dl RDW (11.0-16.0) % Plt Count (160-400) X10*3/uL MPV (9.4-12.3) fL Immature Gran % (Auto) (0.0-0.4) % Neut % (Auto) (45-73) % Lymph % (Auto) (20-40) % [place] % (Auto) (2-11) % Eos % (Auto) (0-4) % Baso % (Auto) (0-2) % Lymph # (Auto) (1.2-4.9) X10*3/uL [place] # (Auto) (0.1-1.2) X10*3/uL Eos # (Auto) (0.0-0.4) X10*3/uL Baso # (Auto) (0.0-0.2) X10*3/uL Abs Immat Gran (auto) (0.00-0.03) X10*3/uL Absolute Neuts (auto) (2.0-8.3) x10*3/uL Absolute Nucleated RBC (0.0-0.012) X10*3/uL Nucleated RBC % (auto) (0.0-0.2) /100WBC ESR 38 H (0-20) MM/HR Sodium (135-145) mmol/L Potassium (3.3-5.1) mmol/L Chloride (96-108) mmol/L Carbon Dioxide (22-29) mmol/L Anion Gap (12-20) BUN (9-16) mg/dL Creatinine (0.5-1.4) mg/dL Estim Creat Clear Calc Estimated GFR Random Glucose (60-115) mg/dL Lactic Acid (0.5-2.0) mmol/L Calcium (8.4-10.2) mg/dL Magnesium (1.6-2.6) mg/dL Total Bilirubin (0.0-1.0) mg/dL Direct Bilirubin (0.0-0.5) mg/dL AST (5-31) U/L ALT (0-31) U/L Alkaline Phosphatase (39-117) U/L C-Reactive Protein (< or = 0.50) mg/dL Total Protein (6.5-8.0) g/dL Albumin (3.5-5.0) g/dL Lipase (8-78) U/L COVID-19 ([facility]) Negative (Negative) COVID-19 Clin Com See Note Discharge Plan Discharge Clinical Impression: Ulcerative colitis, Diarrhea, Nausea & vomiting Patient Disposition: Home, Self-Care Instructions: Ulcerative Colitis (ED), Acute Nausea and Vomiting (ED), Acute Diarrhea (ED) Additional Instructions: Please follow-up with your primary care physician tomorrow. If you have any worsening or new symptoms, please return to the emergency room or call 911 Prescriptions: New budesonide 3 mg capsule,delayed,extend.release 9 mg PO QAM 10 Days Qty: 30 0RF loperamide 2 mg capsule 2 mg PO Q4H PRN (Reason: loose stool) Qty: 20 0RF Rx Instructions: administer after each loose stool until symptoms controlled; do not exceed 8 mg per 24 hrs ondansetron 4 mg tablet,disintegrating 4 mg PO Q6H PRN (Reason: nausea and vomiting) Qty: 20 0RF No Action azathioprine [Imuran] 50 mg tablet 100 mg PO DAILY 90 Days Qty: 180 2RF famotidine [Pepcid] 40 mg tablet 40 mg PO BEDTIME 30 Days Qty: 30 3RF budesonide 3 mg capsule,delayed,extend.release 9 mg PO DAILY Qty: 90 1RF latanoprost 0.005 % drops 1 drp ophthalmic (eye) BEDTIME atorvastatin 40 mg tablet 1 tab PO BEDTIME torsemide 20 mg tablet 1 tab PO DAILY isosorbide mononitrate 30 mg tablet extended release 24 hr 1 tab PO DAILY gabapentin 400 mg capsule 800 mg PO TID aspirin 81 mg tablet,delayed release (DR/EC) 1 tab PO DAILY dorzolamide-timolol 22.3-6.8 mg/mL drops 1 drp ophthalmic (eye) BID metoprolol succinate 25 mg tablet extended release 24 hr 1 tab PO DAILY hydrocortisone [Procto-Med HC] 2.5 % cream with perineal applicator 1 appl SD DAILY PRN (Reason: hemorrhoids) Qty: 30 0RF ropinirole 0.5 mg tablet 0.5 mg PO QID PRN (Reason: Restless Leg(S)) amlodipine 5 mg tablet 5 mg PO DAILY Eliquis 5 mg tablet 5 mg PO BID
[2022-01-23 14:03] VITALS: BP 124/75; PULSE 90; O2SAT 95
[2022-01-23 14:04] VITALS: BP 128/64; PULSE 86; RESP 19; TEMP 37.1; O2SAT 93; BMI 37.6
[2022-01-23 14:35] LABS: MANUAL DIFF FLAG NO
[2022-01-23] MEDS: Loperamide HCl 2 MG CAPSULE 4 MG PO (14:36)
[2022-01-23] MEDS: ondansetron HCL 4 MG/2 ML VIAL IVPUSH (14:37)
[2022-01-23 14:42] LABS: Basophils Percent Auto 0.7 % (0-2); Eosinophils Absolute Auto 0.3 X10*3/uL (0.0-0.4); Eosinophils Percent Auto 5.7 % (0-4); Hematocrit 38.1 % (37.0-47.0); Hemoglobin 12.1 g/dl (12.0-16.0); Imm Gran Abs Auto 0.02 X10*3/uL (0.00-0.03); Imm Gran Pct Auto 0.4 % (0.0-0.4); Lymphocytes Absolute Auto 0.8 X10*3/uL (1.2-4.9); Lymphocytes Percent Auto 17.2 % (20-40); Mean Corpuscular HGB Conc 31.8 g/dl (31.0-35.0); Mean Corpuscular Hemoglobin 24.9 pg (27.0-33.0); Mean Corpuscular Volume 78.4 fL (80.0-98.0); Mean Platelet Volume 8.7 fL (9.4-12.3); Monocytes Absolute Auto 0.8 X10*3/uL (0.1-1.2); Monocytes Percent Auto 18.3 % (2-11); Neutrophils Absolute Auto 2.6 x10*3/uL (2.0-8.3); Neutrophils Percent Auto 57.7 % (45-73); Platelet Count 324 X10*3/uL (160-400); Red Blood Count 4.86 X10*6/uL (4.20-5.50); Red Cell Distribution Width 25.7 % (11.0-16.0); White Blood Count 4.5 X10*3/uL (4.8-10.8)
[2022-01-23 14:50] LABS: COVID-19 Test Negative (Negative); IDNOW Serial# 16C4AD1C
[2022-01-23 14:57] LABS: Alanine Aminotransferase 18 U/L (0-31); Albumin Level 3.2 g/dL (3.5-5.0); Alkaline Phosphatase 83 U/L (39-117); Anion Gap 14 (12-20); Aspartate Amino Transferase 24 U/L (5-31); Bilirubin Direct 0.5 mg/dL (0.0-0.5); Bilirubin Total 0.9 mg/dL (0.0-1.0); Blood Urea Nitrogen 8 mg/dL (9-16); C Reactive Protein 1.55 mg/dL (< or = 0.50); Calcium 8.6 mg/dL (8.4-10.2); Carbon Dioxide 25 mmol/L (22-29); Chloride 106 mmol/L (96-108); Estimated Glomerular Filt Rate > 60; Glucose Random 92 mg/dL (60-115); Lipase 19 U/L (8-78); Potassium 4.2 mmol/L (3.3-5.1); Sodium 141 mmol/L (135-145); Total Protein 5.3 g/dL (6.5-8.0)
[2022-01-23 15:26] LABS: Erythrocyte Sedimentation Rate 38 MM/HR (0-20)
[2022-01-23] MEDS: methylPREDNISolone Sod Succ 125 MG/2 ML VIAL IVPUSH (15:54)
== END 2022-01-23 16:06 | disposition home or self-care (01) ==
PROVIDERS: Emergency Provider Emergency Medicine; PCP Family Medicine
DX: K51.90 Ulcerative colitis, unspecified, without complications (principal); R19.7 Diarrhea, unspecified; R11.2 Nausea with vomiting, unspecified; R60.0 Localized edema; Z20.822 Contact with and (suspected) exposure to COVID-19; I10 Essential (primary) hypertension; E11.9 Type 2 diabetes mellitus without complications; Z86.718 Personal history of other venous thrombosis and embolism
CPT/HCPCS: 36415; 80048; 80076; 83605; 83690; 83735; 85025; 85652; 86140; 87040; 87635; 96374; 96375; 99282; 99284; J2405; J2930

== ENCOUNTER → 2022-02-24 16:12 | Outpatient (BNVA) | payer MEDICARE, SELFPAY | PROVIDERS: PCP Family Medicine; Visit Provider Nurse Practitioner | DX: K51.90 Ulcerative colitis, unspecified, without complications (principal); K21.9 Gastro-esophageal reflux disease without esophagitis | CPT/HCPCS: 99212 ==

== ENCOUNTER 2022-03-07 11:14 | Outpatient (REF) | payer MEDICARE, SELFPAY | END 2022-03-07 11:15 | disposition home or self-care (01) | LOC: HO.HMGCLDS 11:14 | PROVIDERS: PCP Family Medicine; Visit Provider Nurse Practitioner | DX: K51.90 Ulcerative colitis, unspecified, without complications (principal) | CPT/HCPCS: 36415; 80299 ==

== ENCOUNTER 2022-03-10 06:39 | Emergency (ER) | payer MEDICARE, SELFPAY ==
[2022-03-10 06:48] VITALS: BP 130/54; PULSE 97; RESP 16; TEMP 36.7; O2SAT 95; BMI 38.7
--- NOTE | 2022-03-10 08:13 | ED_ITS ---
HPI - General Adult General Chief complaint: General Medical Stated complaint: lea that wont stop bleeding Time Seen by Provider: 03/10/22 06:44 Source: patient Mode of arrival: ambulatory History of Present Illness HPI narrative: 81-year-old female who presents with complaints of ecchymosis to all 4 extremities and states that she is currently on Eliquis as well as aspirin, stating that she is on Eliquis for prior DVTs. Patient states that she does not want her ?legs looking like that?. Otherwise, she denies any shortness of [place] th, chest pain/palpitations, fever, chills, recent changes in her medications. Related Data Home Medications Medication Instructions Recorded Confirmed amlodipine 5 mg tablet 5 mg PO DAILY 12/02/20 05/11/21 apixaban 5 mg tablet (Eliquis) 5 mg PO BID 12/02/20 05/11/21 ropinirole 0.5 mg tablet 0.5 mg PO QID PRN Restless Leg(S) 12/02/20 05/11/21 aspirin 81 mg tablet,delayed 1 tab PO DAILY 05/11/21 05/11/21 release atorvastatin 40 mg tablet 1 tab PO BEDTIME 05/11/21 05/11/21 dorzolamide 22.3 mg-timolol 6.8 1 drp ophthalmic (eye) BID 05/11/21 05/11/21 mg/mL eye drops gabapentin 400 mg capsule 800 mg PO TID 05/11/21 05/11/21 isosorbide mononitrate 30 mg 1 tab PO DAILY 05/11/21 05/11/21 tablet,extended release 24 hr latanoprost 0.005 % eye drops 1 drp ophthalmic (eye) BEDTIME 05/11/21 05/11/21 metoprolol succinate 25 mg 1 tab PO DAILY 05/11/21 05/11/21 tablet,extended release 24 hr torsemide 20 mg tablet 1 tab PO DAILY 05/11/21 05/11/21 Previous Rx's Medication Instructions Recorded hydrocortisone 2.5 % topical cream 1 appl NE DAILY PRN hemorrhoids 05/13/21 with perineal applicator #30 grams (Procto-Med ) loperamide 2 mg capsule 2 mg PO Q4H PRN loose stool #20 01/23/22 caps ondansetron 4 mg disintegrating 4 mg PO Q6H PRN nausea and 01/23/22 tablet vomiting #20 tabs azathioprine 50 mg tablet 100 mg PO DAILY #180 tabs 02/24/22 budesonide 3 mg 9 mg PO DAILY #90 caps 02/24/22 capsule,delayed,extended release Allergies Allergy/AdvReac Type Severity Reaction Status Date / Time dogs, cats etc.. Allergy Unknown Unknown Uncoded 12/02/20 13:00 barium Allergy Hives Uncoded 05/11/21 15:00 Review of Systems Review of Systems: Pertinent positives and negatives as stated in HPI 10 point review of systems otherwise negative. FOR[facility]LY [facility], [facility] Past Medical History Source: nursing notes reviewed Medical History Acute proctitis Colitis Constipation DVT (deep venous thrombosis) Hemorrhoids History of CHF (congestive heart failure) HTN (hypertension) Pre-diabetes Restless leg syndrome Spinal abscess Ulcerative colitis Surgical History Hx of shoulder surgery Social History Social History Household Members: Family Housing: House Alcohol intake: never Patient Tobacco Use Status: Never used Tobacco Advance Directives: No Advance Directives Information Provided: No service: No Current occupational status: retired Physical Exam ED Vital Signs: Vital Signs - 24 hr 03/10/22 06:48 03/10/22 08:32 Temperature 98.0 F Pulse Rate 97 54 Respiratory Rate 16 16 Blood Pressure 130/54 L 113/54 L Pulse Oximetry 95 96 Oxygen Delivery Method Room Air Room Air BMI result Body Mass Index 38.7 VITAL SIGNS: Reviewed. GENERAL: Other early, fragile, in no acute distress. HEAD: Normocephalic/atraumatic EYES: PERRLA, EOMI without pale conjunctiva EARS: Ext canals without abnormality OROPHARYNX: no oral lesions noted, posterior pharynx clear NECK: Supple, no adenopathy LUNGS: Normal breath sounds. No adventitious sounds or accessory muscle use. SpO2<95> CARDIOVASCULAR: Regular rate and rhythm without noted murmurs ABDOMEN: Soft, non-tender, non-distended with bowel sounds. MUSCULOSKELETAL: No tenderness, deformities, or effusions noted on gross inspection. EXTREMITIES: No cyanosis, clubbing or edema. SKIN: Inspection of the skin reveals no rashes, ecchymotic areas noted to bilateral upper and lower extremities there are superficial, small skin tears noted to the left upper extremity that were dressed and are currently hemostatic. NEUROLOGIC: Alert and oriented x 4. Strength and sensation to light touch were grossly intact x 4. Course Course Course Narrative: 81-year-old female with history and clinical presentation consistent with medication side effects, will evaluate platelets as well as coagulation panel. Patient is otherwise well appearing and hemodynamically stable. Review of all investigations not significant for abnormal platelets or INR/PT. 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 She was cautioned regarding blood in the urine or stool. Medical Decision Making Lab Data Result diagrams: 03/10/22 08:03/10/22 08: Labs: Lab Results 03/10/22 03/10/22 03/10/22 Range/Units 08:22 08:22 08:22 WBC 4.8 (4.8-10.8) X10*3/uL RBC 4.80 (4.20-5.50) X10*6/uL Hgb 13.1 (12.0-16.0) g/dl Hct 41.7 (37.0-47.0) % MCV 86.9 (80.0-98.0) fL MCH 27.3 (27.0-33.0) pg MCHC 31.4 (31.0-35.0) g/dl RDW 24.6 H (11.0-16.0) % Plt Count 285 (160-400) X10*3/uL MPV 8.7 L (9.4-12.3) fL Immature Gran % (Auto) 0.4 (0.0-0.4) % Neut % (Auto) 64.1 (45-73) % Lymph % (Auto) 15.2 L (20-40) % [place] % (Auto) 16.9 H (2-11) % Eos % (Auto) 2.1 (0-4) % Baso % (Auto) 1.3 (0-2) % Lymph # (Auto) 0.7 L (1.2-4.9) X10*3/uL [place] # (Auto) 0.8 (0.1-1.2) X10*3/uL Eos # (Auto) 0.1 (0.0-0.4) X10*3/uL Baso # (Auto) 0.1 (0.0-0.2) X10*3/uL Abs Immat Gran (auto) 0.02 (0.00-0.03) X10*3/uL Absolute Neuts (auto) 3.1 (2.0-8.3) x10*3/uL Absolute Nucleated RBC 0.000 (0.0-0.012) X10*3/uL Nucleated RBC % (auto) 0.0 (0.0-0.2) /100WBC PT 13.1 (10.0-13.1) SEC INR 1.1 (0.9-1.1) Sodium 142 (135-145) mmol/L Potassium 3.5 (3.3-5.1) mmol/L Chloride 100 (96-108) mmol/L Carbon Dioxide 32 H (22-29) mmol/L Anion Gap 14 (12-20) BUN 20 H D (9-16) mg/dL Creatinine 1.20 (0.5-1.4) mg/dL Estim Creat Clear Calc 39.0 Estimated GFR 43 Random Glucose 112 (60-115) mg/dL Calcium 9.2 D (8.4-10.2) mg/dL Total Bilirubin 0.9 (0.0-1.0) mg/dL AST 19 (5-31) U/L ALT 16 (0-31) U/L Alkaline Phosphatase 53 D (39-117) U/L Total Protein 6.0 L (6.5-8.0) g/dL Albumin 3.6 (3.5-5.0) g/dL Discharge Plan Discharge Clinical Impression: Ecchymosis, Chronic anticoagulation, Skin tear of left upper extremity Patient Disposition: Home, Self-Care Instructions: Ecchymosis (ED), Blood Thinners (ED), Skin Tear (ED) Additional Instructions: 1. Resume all home medications. 2. Recommend that you apply antibiotic ointment to the skin tears. 3. Call the office of your primary care provider today to schedule an appointment for re-evaluation to discuss your current blood thinners. Return to the ER for worsening symptoms. Prescriptions: No Action latanoprost 0.005 % drops 1 drp ophthalmic (eye) BEDTIME atorvastatin 40 mg tablet 1 tab PO BEDTIME torsemide 20 mg tablet 1 tab PO DAILY isosorbide mononitrate 30 mg tablet extended release 24 hr 1 tab PO DAILY gabapentin 400 mg capsule 800 mg PO TID aspirin 81 mg tablet,delayed release (DR/EC) 1 tab PO DAILY dorzolamide-timolol 22.3-6.8 mg/mL drops 1 drp ophthalmic (eye) BID metoprolol succinate 25 mg tablet extended release 24 hr 1 tab PO DAILY hydrocortisone [Procto-Med HC] 2.5 % cream with perineal applicator 1 appl NE DAILY PRN (Reason: hemorrhoids) Qty: 30 0RF loperamide 2 mg capsule 2 mg PO Q4H PRN (Reason: loose stool) Qty: 20 0RF Rx Instructions: administer after each loose stool until symptoms controlled; do not exceed 8 mg per 24 hrs ondansetron 4 mg tablet,disintegrating 4 mg PO Q6H PRN (Reason: nausea and vomiting) Qty: 20 0RF ropinirole 0.5 mg tablet 0.5 mg PO QID PRN (Reason: Restless Leg(S)) amlodipine 5 mg tablet 5 mg PO DAILY Eliquis 5 mg tablet 5 mg PO BID budesonide 3 mg capsule,delayed,extend.release 9 mg PO DAILY Qty: 90 11RF azathioprine 50 mg tablet 100 mg PO DAILY Qty: 180 2RF Referrals: Mick Tatum MD [Primary Care Provider] -
[2022-03-10 08:25] LABS: MANUAL DIFF FLAG NO
[2022-03-10 08:27] LABS: Basophils Absolute Auto 0.1 X10*3/uL (0.0-0.2); Basophils Percent Auto 1.3 % (0-2); Eosinophils Absolute Auto 0.1 X10*3/uL (0.0-0.4); Eosinophils Percent Auto 2.1 % (0-4); Hematocrit 41.7 % (37.0-47.0); Hemoglobin 13.1 g/dl (12.0-16.0); Imm Gran Abs Auto 0.02 X10*3/uL (0.00-0.03); Imm Gran Pct Auto 0.4 % (0.0-0.4); Lymphocytes Absolute Auto 0.7 X10*3/uL (1.2-4.9); Lymphocytes Percent Auto 15.2 % (20-40); Mean Corpuscular HGB Conc 31.4 g/dl (31.0-35.0); Mean Corpuscular Hemoglobin 27.3 pg (27.0-33.0); Mean Corpuscular Volume 86.9 fL (80.0-98.0); Mean Platelet Volume 8.7 fL (9.4-12.3); Monocytes Absolute Auto 0.8 X10*3/uL (0.1-1.2); Monocytes Percent Auto 16.9 % (2-11); Neutrophils Absolute Auto 3.1 x10*3/uL (2.0-8.3); Neutrophils Percent Auto 64.1 % (45-73); Platelet Count 285 X10*3/uL (160-400); Red Cell Distribution Width 24.6 % (11.0-16.0); White Blood Count 4.8 X10*3/uL (4.8-10.8)
[2022-03-10 08:32] VITALS: BP 113/54; PULSE 54; RESP 16; O2SAT 96
[2022-03-10 08:32] LABS: INTERNATIONAL NORM RATIO 1.1 (0.9-1.1); Prothrombin Time 13.1 SEC (10.0-13.1)
[2022-03-10 08:47] LABS: Alanine Aminotransferase 16 U/L (0-31); Albumin Level 3.6 g/dL (3.5-5.0); Alkaline Phosphatase 53 U/L (39-117); Anion Gap 14 (12-20); Aspartate Amino Transferase 19 U/L (5-31); Bilirubin Total 0.9 mg/dL (0.0-1.0); Blood Urea Nitrogen 20 mg/dL (9-16); Calcium 9.2 mg/dL (8.4-10.2); Carbon Dioxide 32 mmol/L (22-29); Chloride 100 mmol/L (96-108); Estimated Glomerular Filt Rate 43; Glucose Random 112 mg/dL (60-115); Potassium 3.5 mmol/L (3.3-5.1); Sodium 142 mmol/L (135-145)
== END 2022-03-10 09:45 | disposition home or self-care (01) ==
PROVIDERS: Emergency Provider Student in an Organized Health Care Education/Training Program; PCP Family Medicine
DX: D68.32 Hemorrhagic disorder due to extrinsic circulating anticoagulants (principal); Z79.899 Other long term (current) drug therapy; Z86.718 Personal history of other venous thrombosis and embolism; Z79.01 Long term (current) use of anticoagulants
CPT/HCPCS: 36415; 80053; 85025; 85610; 99283

== ENCOUNTER → 2022-09-01 16:10 | Outpatient (BNVA) | payer MEDICARE, SELFPAY | PROVIDERS: PCP Family Medicine; Visit Provider Nurse Practitioner | DX: K21.9 Gastro-esophageal reflux disease without esophagitis (principal); K51.90 Ulcerative colitis, unspecified, without complications; M54.30 Sciatica, unspecified side | CPT/HCPCS: 99212 ==

== ENCOUNTER 2022-09-06 15:45 | Emergency (ER) | payer MEDICARE, SELFPAY ==
--- NOTE | ~2022-09-06 | XR_ITS ---
EXAMINATION: XR CHEST CLINICAL INFORMATION: Pain. COMPARISON: Chest radiograph 01/28/2020. TECHNIQUE: Frontal view of the chest was obtained. FINDINGS: Stable appearance of the cardiomediastinal silhouette. Increased interstitial markings bilaterally with questionable more focal airspace opacities in the right mid lung and lateral left lung base. Suspect trace amount of left-sided pleural fluid. No pneumothorax. EKG wires overlie the chest. No acute osseous abnormalities. XR/XR chest 1V IMPRESSION: Increased interstitial markings with questionable more focal airspace opacities in the right mid lung and lateral left lung base suggesting the possibility of an atypical infection with developing infiltrates. A follow-up imaging is recommended.
--- NOTE | 2022-09-06 16:23 | ECG_ITS ---
Test Reason : cp Blood Pressure : / mmHG Vent. Rate : 061 BPM Atrial Rate : 061 BPM P-R Int : 170 ms QRS Dur : 096 ms QT Int : 426 ms P-R-T Axes : 027 -37 030 degrees QTc Int : 428 ms Normal sinus rhythm Left axis deviation Abnormal ECG When compared with ECG of 11-MAY-2021 17:21, Nonspecific T wave abnormality, improved in Inferior leads Nonspecific T wave abnormality no longer evident in Anterolateral leads QT has lengthened Referred By: Immanuel Park Electronically Signed By:Eran Lincoln
--- NOTE | 2022-09-06 16:37 | ED_ITS ---
HPI - General Adult General Chief complaint: Chest Pain Stated complaint: CHEST/JAW PAIN, 3 NITRO TAKEN=RESOLVED PER EMS Time Seen by Provider: 09/06/22 16:12 Source: patient, family (Patient's daughter), RN notes reviewed and old records reviewed Mode of arrival: ambulatory Limitations: no limitations History of Present Illness HPI narrative: this is an 82-year-old female with past medical history significant for coronary artery disease status post stenting x1 just over a year ago, was occluded, diarrhea, GERD, chronic back pain, AFib on Eliquis, hypertension intermittent chest pain. the patient reports that for around 12:45 p.m. today she developed a sudden onset of left-sided chest pain that radiated to her jaw. she was watching television at the time. the pain was sharp, stabbing, at worst 8 out of 10 similar to the patient's unstable angina past. She states usually she can take nitroglycerin sublingual x2 with improvement in her symptoms she reports that today she took nitroglycerin sublingual x3 without any improvement in her symptoms she called 911 about 3 hours after the onset of her symptoms due to continued pain and her symptoms resolved in the ambulance the patient follows cardiology at [facility] of note, the patient has been off her Eliquis and Plavix for the last week due to having a corticosteroid injection in her spine. she restart her Eliquis this morning for 1 dose. she was given baby aspirin times 4 via EMS Currently the patient has no symptoms in his chest pain-free Related Data Home Medications Medication Instructions Recorded Confirmed apixaban 5 mg tablet (Eliquis) 5 mg PO BID 12/02/20 09/06/22 ropinirole 0.5 mg tablet 1 mg PO BEDTIME 12/02/20 09/06/22 atorvastatin 40 mg tablet 1 tab PO BEDTIME 05/11/21 09/06/22 gabapentin 400 mg capsule 800 mg PO TID 05/11/21 09/06/22 metoprolol succinate 25 mg 1 tab PO DAILY 05/11/21 09/06/22 tablet,extended release 24 hr torsemide 20 mg tablet 2 tab PO DAILY 05/11/21 09/06/22 diclofenac sodium 1 % topical gel 1 g topical QID 09/01/22 09/06/22 empagliflozin 10 mg tablet 10 mg PO DAILY 09/01/22 09/06/22 (Jardiance) spironolactone 25 mg tablet 25 mg PO DAILY@1700 09/01/22 09/06/22 thiamine HCl (vitamin B1) 100 mg 100 mg PO DAILY 09/01/22 09/06/22 tablet isosorbide mononitrate 30 mg 60 mg PO DAILY 09/06/22 09/06/22 tablet,extended release 24 hr ropinirole 0.5 mg tablet 0.5 mg PO BID@1200,1800 09/06/22 09/06/22 Previous Rx's Medication Instructions Recorded azathioprine 50 mg tablet 100 mg PO DAILY #180 tabs 09/01/22 budesonide 3 mg 9 mg PO DAILY #90 caps 09/01/22 capsule,delayed,extended release nitroglycerin 0.4 mg sublingual 0.4 mg sublingual Q5M PRN chest 09/06/22 tablet pain #30 tabs Allergies Allergy/AdvReac Type Severity Reaction Status Date / Time dogs, cats etc.. Allergy Unknown Unknown Uncoded 12/02/20 13:00 barium Allergy Hives Uncoded 05/11/21 15:00 Review of Systems Constitutional: Constitutional: Reports as per HPI, Denies chills and Denies fatigue Cardiovascular: Cardiovascular: Reports chest pain (resolved prior to arrival), Denies pedal edema, Denies dyspnea and Denies dyspnea on exertion Respiratory: Respiratory: Denies cough, Denies dyspnea and Denies dyspnea on exertion Gastrointestinal: Gastrointestinal: Denies abdominal pain, Denies constipation and Denies vomiting Genitourinary: Genitourinary: Denies dysuria Endocrine: Endocrine: Denies fatigue [facility] Past Medical History Medical History Acute proctitis Colitis Constipation DVT (deep venous thrombosis) Hemorrhoids History of CHF (congestive heart failure) HTN (hypertension) Pre-diabetes Restless leg syndrome Spinal abscess Ulcerative colitis Surgical History Hx of shoulder surgery Social History Social History Household Members: Family Housing: House Alcohol intake: never Patient Tobacco Use Status: Never used Tobacco Advance Directives: Yes Advance Directives Information Provided: No Advance Directives on File: No service: No Current occupational status: retired Physical Exam ED Vital Signs: Vital Signs - 24 hr 09/06/22 17:23 09/06/22 19:31 Temperature 98.4 F 97.9 F Pulse Rate 61 57 Respiratory Rate 16 15 Blood Pressure 154/77 H 114/52 L Pulse Oximetry 95 94 Oxygen Delivery Method Room Air Room Air BMI result Body Mass Index 0.0 Const General: healthy appearing, comfortable, no acute distress, alert and awake Nutritional Appearance: well nourished Orientation/consciousness: patient oriented x3 Eyes Eyelids: Yes eyelids normal Conjunctivae: conjunctivae normal Sclerae: sclerae normal Corneas: corneas normal Pupils: Equal, round and reactive pupils present EOM: EOMs intact bilaterally Chest Chest palpation & inspection: normal inspection of the chest and normal palpation of entire chest wall Resp Effort & Inspection: normal respiratory effort, able to speak in complete sentences, no audible wheezes and not labored Auscultation: clear to auscultation bilaterally Cardio Jugular venous distension: no JVD Rate: regular rate Rhythm: regular rhythm Skin General skin exam: no rashes or lesions noted, elasticity normal and ecchymosis ( to bilateral lower extremities) Lesions: no lesions Rashes: no rashes Neuro General: patient oriented x3 Cranial nerves: Yes Equal, round and reactive pupils present Extrem General: Yes full ROM Course Reevaluation(s) Reevaluation #1: Patient re-evaluated again and does not have any further chest pain. Her delta troponin came back lower than the initial at 6.8 down from 8.1. The patient is comfortable with discharge at this time and I agree with discharge at this time. ACS has been ruled out. the patient's son will pick the patient up. Time: 20:48 Medical Decision Making Medical Decision Making MDM Narrative: 82-year-old female presents for evaluation of chest pain persisted despite 3 doses of nitroglycerin. The patient has numerous risk factors for cardiac disease including age, obesity, hypertension, previous stenting. patient's EKG via EMS showed atrial fibrillation, EKG performed in the ED shows normal sinus rhythm with a rate of 61 beats per minute. No significant ST segment elevations or depressions. Labs, chest x-ray pending. Again, the patient is currently chest pain-free. She has already received nitroglycerin x3 at home and aspirin 324 mg via EMS. Given the patient's significant risk factors, unstable angina versus ACS is high in the differential. of note, patient's vital signs are stable in time. Differential Diagnosis Differential Diagnoses: The differential diagnosis associated with the presentation includes ( Unstable angina, ACS, chest pain, NSTEMI, costochondritis, GERD) chest pain Admission/Observation Consideration of admission/observation: Escalation of care including admission/observation considered This in atrial fibrillation in for evaluation chest pain persisted for several hours. the family improved after the 3rd dose of nitroglycerin. The patient has a heart score of 6. Chest x-ray read shows concern for possible focal airspace opacity in the right middle lobe as well as left lower lobe with trace left pleural effusion. The patient denies any fevers, chills, flu-like symptoms, shortness of breath. She reports that she has had a persistent cough for last 2 years but actually feels it is better than baseline. Given this information as well as the lack of tachycardia, tachypnea, and is afebrile I feel that pneumonia is less likely. I will not treat with any antibiotics at this time. the patient has received aspirin via EMS. Will discuss with the hospitalist for admission at this time. Consult Healthcare Provider Management of the patient was discussed with: Hospitalist I spoke to Dr Brooks, hospitalist who recommends repeating the delta tropnin at the 3hr interval which has been ordered. If the patient remains chest pain free with a negative delta tropnin, this essentially rules out ACS and She can likely be discharged unless there are any other concerns. I discussed this with the patient who also is agreeable to current plan. she reports that she has follow-up with her personal turkey egg gatherer next [place] Lab Data MDM Lab Attestation statement: I reviewed the patient's lab results. Troponin negative x1, 2nd troponin ordered. 09/06/22 17:02 09/06/22 17:02 Labs: Lab Results 09/06/22 09/06/22 09/06/22 Range/Units 17:02 17:02 17:02 WBC 7.7 (4.8-10.8) X10*3/uL RBC 4.77 (4.20-5.50) X10*6/uL Hgb 14.2 (12.0-16.0) g/dl Hct 44.6 (37.0-47.0) % MCV 93.5 (80.0-98.0) fL MCH 29.8 (27.0-33.0) pg MCHC 31.8 (31.0-35.0) g/dl RDW 17.3 H (11.0-16.0) % Plt Count 340 (160-400) X10*3/uL MPV 9.1 L (9.4-12.3) fL Immature Gran % (Auto) 0.6 H (0.0-0.4) % Neut % (Auto) 85.8 H (45-73) % Lymph % (Auto) 6.6 L (20-40) % [place] % (Auto) 6.9 (2-11) % Eos % (Auto) 0.0 (0-4) % Baso % (Auto) 0.1 (0-2) % Lymph # (Auto) 0.5 L (1.2-4.9) X10*3/uL [place] # (Auto) 0.5 (0.1-1.2) X10*3/uL Eos # (Auto) 0.0 (0.0-0.4) X10*3/uL Baso # (Auto) 0.0 (0.0-0.2) X10*3/uL Abs Immat Gran (auto) 0.05 H (0.00-0.03) X10*3/uL Absolute Neuts (auto) 6.6 (2.0-8.3) x10*3/uL Absolute Nucleated RBC 0.000 (0.0-0.012) X10*3/uL Nucleated RBC % (auto) 0.0 (0.0-0.2) /100WBC PT 10.9 (10.0-13.1) SEC INR 1.0 (0.9-1.1) APTT 29.9 (26.0-36.4) SEC Sodium 140 (135-145) mmol/L Potassium 4.2 (3.3-5.1) mmol/L Chloride 101 (96-108) mmol/L Carbon Dioxide 26 (22-29) mmol/L Anion Gap 17 (12-20) BUN 28 H (9-16) mg/dL Creatinine 1.45 H (0.5-1.4) mg/dL Estim Creat Clear Calc TNP Estimated GFR 34 Random Glucose 222 H (60-115) mg/dL Calcium 9.6 (8.4-10.2) mg/dL Phosphorus 3.5 (2.7-4.5) mg/dL Magnesium 2.3 (1.6-2.6) mg/dL Total Bilirubin 0.7 (0.0-1.0) mg/dL AST 18 (5-31) U/L ALT 19 (0-31) U/L Alkaline Phosphatase 51 (39-117) U/L Troponin I High Sens (<3.5-17.0) ng/L B-Natriuretic Peptide (<100) pg/mL Total Protein 6.3 L (6.5-8.0) g/dL Albumin 3.9 (3.5-5.0) g/dL COVID-19 ([facility]) (Negative) COVID-19 Clin Com 09/06/22 09/06/22 09/06/22 Range/Units 17:02 17:02 17:50 WBC (4.8-10.8) X10*3/uL RBC (4.20-5.50) X10*6/uL Hgb (12.0-16.0) g/dl Hct (37.0-47.0) % MCV (80.0-98.0) fL MCH (27.0-33.0) pg MCHC (31.0-35.0) g/dl RDW (11.0-16.0) % Plt Count (160-400) X10*3/uL MPV (9.4-12.3) fL Immature Gran % (Auto) (0.0-0.4) % Neut % (Auto) (45-73) % Lymph % (Auto) (20-40) % [place] % (Auto) (2-11) % Eos % (Auto) (0-4) % Baso % (Auto) (0-2) % Lymph # (Auto) (1.2-4.9) X10*3/uL [place] # (Auto) (0.1-1.2) X10*3/uL Eos # (Auto) (0.0-0.4) X10*3/uL Baso # (Auto) (0.0-0.2) X10*3/uL Abs Immat Gran (auto) (0.00-0.03) X10*3/uL Absolute Neuts (auto) (2.0-8.3) x10*3/uL Absolute Nucleated RBC (0.0-0.012) X10*3/uL Nucleated RBC % (auto) (0.0-0.2) /100WBC PT (10.0-13.1) SEC INR (0.9-1.1) APTT (26.0-36.4) SEC Sodium (135-145) mmol/L Potassium (3.3-5.1) mmol/L Chloride (96-108) mmol/L Carbon Dioxide (22-29) mmol/L Anion Gap (12-20) BUN (9-16) mg/dL Creatinine (0.5-1.4) mg/dL Estim Creat Clear Calc Estimated GFR Random Glucose (60-115) mg/dL Calcium (8.4-10.2) mg/dL Phosphorus (2.7-4.5) mg/dL Magnesium (1.6-2.6) mg/dL Total Bilirubin (0.0-1.0) mg/dL AST (5-31) U/L ALT (0-31) U/L Alkaline Phosphatase (39-117) U/L Troponin I High Sens 8.1 (<3.5-17.0) ng/L B-Natriuretic Peptide 39 (<100) pg/mL Total Protein (6.5-8.0) g/dL Albumin (3.5-5.0) g/dL COVID-19 ([facility]) Negative (Negative) COVID-19 Clin Com See Note 09/06/22 Range/Units 20:08 WBC (4.8-10.8) X10*3/uL RBC (4.20-5.50) X10*6/uL Hgb (12.0-16.0) g/dl Hct (37.0-47.0) % MCV (80.0-98.0) fL MCH (27.0-33.0) pg MCHC (31.0-35.0) g/dl RDW (11.0-16.0) % Plt Count (160-400) X10*3/uL MPV (9.4-12.3) fL Immature Gran % (Auto) (0.0-0.4) % Neut % (Auto) (45-73) % Lymph % (Auto) (20-40) % [place] % (Auto) (2-11) % Eos % (Auto) (0-4) % Baso % (Auto) (0-2) % Lymph # (Auto) (1.2-4.9) X10*3/uL [place] # (Auto) (0.1-1.2) X10*3/uL Eos # (Auto) (0.0-0.4) X10*3/uL Baso # (Auto) (0.0-0.2) X10*3/uL Abs Immat Gran (auto) (0.00-0.03) X10*3/uL Absolute Neuts (auto) (2.0-8.3) x10*3/uL Absolute Nucleated RBC (0.0-0.012) X10*3/uL Nucleated RBC % (auto) (0.0-0.2) /100WBC PT (10.0-13.1) SEC INR (0.9-1.1) APTT (26.0-36.4) SEC Sodium (135-145) mmol/L Potassium (3.3-5.1) mmol/L Chloride (96-108) mmol/L Carbon Dioxide (22-29) mmol/L Anion Gap (12-20) BUN (9-16) mg/dL Creatinine (0.5-1.4) mg/dL Estim Creat Clear Calc Estimated GFR Random Glucose (60-115) mg/dL Calcium (8.4-10.2) mg/dL Phosphorus (2.7-4.5) mg/dL Magnesium (1.6-2.6) mg/dL Total Bilirubin (0.0-1.0) mg/dL AST (5-31) U/L ALT (0-31) U/L Alkaline Phosphatase (39-117) U/L Troponin I High Sens 6.7 (<3.5-17.0) ng/L B-Natriuretic Peptide (<100) pg/mL Total Protein (6.5-8.0) g/dL Albumin (3.5-5.0) g/dL COVID-19 ([facility]) (Negative) COVID-19 Clin Com Independent Interpretation I performed an independent interpretation of an: EKG ( sinus rhythm with a rate of 61 beats per minute. no ST segment elevation AR.) Scores Heart Score History: -1- moderately suspicious ECG: -1- non specific repolarization disturbance Age: -2- > or = 65 Risk factory: -2- 3 or more risk factors or treated atherosclerosis Troponin: -0- < or = normal limit Score: 6 Risk: 16.6% Discharge Plan Discharge Clinical Impression: Chest pain Patient Disposition: Home, Self-Care Additional Instructions: your workup in the emergency department was reassuring this includes your blood work, EKG, your chest x-ray did show a question of inflammation in your left lower lobe and right middle lobe. As discussed, since you are having improved cough, no shortness of breath and no fevers I do not feel that this is pneumonia should you develop any new symptoms, return to the emergency department otherwise, call your turkey egg gatherer in the morning to schedule follow-up Prescriptions: New nitroglycerin 0.4 mg tablet, sublingual 0.4 mg sublingual Q5M MDD 1.2mg (3 doses) PRN (Reason: chest pain) Qty: 30 0RF Rx Instructions: do not exceed 3 doses per episode No Action isosorbide mononitrate 30 mg tablet extended release 24 hr 60 mg PO DAILY ropinirole 0.5 mg tablet 0.5 mg PO BID@1200,1800 atorvastatin 40 mg tablet 1 tab PO BEDTIME torsemide 20 mg tablet 2 tab PO DAILY gabapentin 400 mg capsule 800 mg PO TID metoprolol succinate 25 mg tablet extended release 24 hr 1 tab PO DAILY ropinirole 0.5 mg tablet 1 mg PO BEDTIME Eliquis 5 mg tablet 5 mg PO BID spironolactone 25 mg tablet 25 mg PO DAILY@1700 diclofenac sodium 1 % gel 1 g topical QID Jardiance 10 mg tablet 10 mg PO DAILY thiamine HCl (vitamin B1) 100 mg tablet 100 mg PO DAILY azathioprine 50 mg tablet 100 mg PO DAILY Qty: 180 2RF budesonide 3 mg capsule,delayed,extend.release 9 mg PO DAILY Qty: 90 11RF
[2022-09-06 17:12] LABS: MANUAL DIFF FLAG NO
[2022-09-06 17:14] LABS: Basophils Percent Auto 0.1 % (0-2); Hematocrit 44.6 % (37.0-47.0); Hemoglobin 14.2 g/dl (12.0-16.0); Imm Gran Abs Auto 0.05 X10*3/uL (0.00-0.03); Imm Gran Pct Auto 0.6 % (0.0-0.4); Lymphocytes Absolute Auto 0.5 X10*3/uL (1.2-4.9); Lymphocytes Percent Auto 6.6 % (20-40); Mean Corpuscular HGB Conc 31.8 g/dl (31.0-35.0); Mean Corpuscular Hemoglobin 29.8 pg (27.0-33.0); Mean Corpuscular Volume 93.5 fL (80.0-98.0); Mean Platelet Volume 9.1 fL (9.4-12.3); Monocytes Absolute Auto 0.5 X10*3/uL (0.1-1.2); Monocytes Percent Auto 6.9 % (2-11); Neutrophils Absolute Auto 6.6 x10*3/uL (2.0-8.3); Neutrophils Percent Auto 85.8 % (45-73); Platelet Count 340 X10*3/uL (160-400); Red Blood Count 4.77 X10*6/uL (4.20-5.50); Red Cell Distribution Width 17.3 % (11.0-16.0); White Blood Count 7.7 X10*3/uL (4.8-10.8)
[2022-09-06 17:22] LABS: Prothrombin Time 10.9 SEC (10.0-13.1)
[2022-09-06 17:23] VITALS: BP 154/77; PULSE 61; RESP 16; TEMP 36.9; O2SAT 95
[2022-09-06 17:25] LABS: Partial Thromboplastin Time 29.9 SEC (26.0-36.4)
[2022-09-06 17:27] VITALS: BP 163/80; PULSE 82; O2SAT 95
[2022-09-06 17:34] LABS: Alanine Aminotransferase 19 U/L (0-31); Albumin Level 3.9 g/dL (3.5-5.0); Alkaline Phosphatase 51 U/L (39-117); Anion Gap 17 (12-20); Aspartate Amino Transferase 18 U/L (5-31); Bilirubin Total 0.7 mg/dL (0.0-1.0); Blood Urea Nitrogen 28 mg/dL (9-16); Calcium 9.6 mg/dL (8.4-10.2); Carbon Dioxide 26 mmol/L (22-29); Chloride 101 mmol/L (96-108); Estimated Glomerular Filt Rate 34; Glucose Random 222 mg/dL (60-115); Magnesium 2.3 mg/dL (1.6-2.6); Phosphorus 3.5 mg/dL (2.7-4.5); Potassium 4.2 mmol/L (3.3-5.1); Sodium 140 mmol/L (135-145); Total Protein 6.3 g/dL (6.5-8.0)
[2022-09-06 17:42] LABS: Troponin-I High Sensitivity 8.1 ng/L (<3.5-17.0)
[2022-09-06 17:44] LABS: B Type Natriuretic Peptide 39 pg/mL (<100)
[2022-09-06 18:32] LABS: COVID-19 Test Negative (Negative); IDNOW Serial# 16C4AD1C
--- NOTE | 2022-09-06 18:55 | PHA.MEDREC ---
Pharmacy Consult ? Medication Reconciliation Pharmacy has completed the medication reconciliation. Pt no longer on plavix. Imdur dose increased to 60 mg per pcp and aldactone lowered to 25 mg daily
[2022-09-06 19:31] VITALS: BP 114/52; PULSE 57; RESP 15; TEMP 36.6; O2SAT 94
[2022-09-06 20:33] LABS: Troponin-I High Sensitivity 6.7 ng/L (<3.5-17.0)
== END 2022-09-06 22:03 | disposition home or self-care (01) ==
PROVIDERS: Physician Assistant; Emergency Provider Emergency Medicine; PCP Family Medicine
DX: R07.9 Chest pain, unspecified (principal); Z20.822 Contact with and (suspected) exposure to COVID-19; R73.03 Prediabetes; I11.0 Hypertensive heart disease with heart failure; I50.9 Heart failure, unspecified; I48.91 Unspecified atrial fibrillation; Z86.718 Personal history of other venous thrombosis and embolism; Z79.02 Long term (current) use of antithrombotics/antiplatelets; Z79.01 Long term (current) use of anticoagulants; Z79.899 Other long term (current) drug therapy
CPT/HCPCS: 36415; 71045; 80053; 83735; 83880; 84100; 84484; 85025; 85610; 85730; 87635; 93005; 99283; 99284

== ENCOUNTER 2022-10-28 05:50 | Emergency (ER) | payer MEDICARE, SELFPAY ==
--- NOTE | ~2022-10-28 | CT_ITS ---
EXAMINATION: CT ABDOMEN AND PELVIS WITHOUT CONTRAST CLINICAL INFORMATION: Diarrhea. COMPARISON: 05/11/2021 TECHNIQUE: Multidetector volumetric imaging was performed from the superior aspect of the liver through the pubic symphysis. Sagittal and coronal reformatted images were obtained on the technologist's workstation. This CT examination was performed using dose optimization techniques as appropriate, variously including the following: *Automated exposure control *Adjustment of mA and/or kV according to patient size (this includes techniques or standardized protocols for targeted exams where dose is matched to indication/reason for exam; i.e. extremities or head) *Use of iterative reconstruction technique DLP: 773 mGy-cm FINDINGS: LUNG BASES: Findings include chronic reticular opacities of fibrosis, associated bronchiectasis, and scattered linear opacities of mild atelectasis at the bases. No acute pulmonary consolidation or pleural effusion. There is atherosclerotic calcification of coronary arteries and thoracic aorta. Left anterior descending coronary artery stent is noted. LIVER: Diffuse hepatic steatosis. GALLBLADDER AND BILIARY TREE: Gallbladder is surgically absent. Common duct measures up to 9 mm diameter and is unchanged in size compared to 05/11/2021. PANCREAS: Simple cyst within the uncinate process of the pancreas measures up to approximately 1.1 cm maximum dimension and is not significantly changed in size compared to 02/27/2020 or 05/11/2021. No pancreatic ductal dilatation, edema or peripancreatic fluid. SPLEEN: Normal. ADRENAL GLANDS: Normal. KIDNEYS AND URETERS: Kidneys are normal in size. No renal stones or hydronephrosis. There are a few bilateral renal cortical cysts. No renal imaging follow-up is recommended for simple cysts. BLADDER: Normal. No calculi or wall thickening. BOWEL AND PERITONEUM: No dilated loops of bowel. Again noted is a small duodenal diverticulum. No focal bowel wall thickening, free fluid or pneumoperitoneum. Again noted are multiple diverticula of the colon. However, there is no overt evidence of acute diverticulitis. The appendix is not identified. No inflammatory changes in the right lower quadrant. ABDOMINAL WALL: Unremarkable. VASCULATURE: Atherosclerotic calcification of the abdominal aorta without aneurysm. LYMPH NODES: No pathologic sized lymph nodes in the abdomen or pelvis. No inguinal lymphadenopathy. PELVIC VISCERA: No uterine or adnexal mass. There are myometrial vascular calcifications. No pelvic free fluid. MUSCULOSKELETAL: Multilevel facet osteophytosis and degenerative disc disease of the dextroscoliotic lumbar spine. No suspicious bone lesions. CT/CT abdomen pelvis wo IV con IMPRESSION: * No evidence of colitis or enteritis. * Again noted are multiple diverticula of the colon without overt diverticulitis. * Diffuse hepatic steatosis. * Common bile duct is chronically mildly dilated, status post cholecystectomy. * There is stable appearance of a simple cyst of the uncinate process of the pancreas.
[2022-10-28 05:57] VITALS: BP 152/80; BP 153/61; PULSE 74; PULSE 80; RESP 18; TEMP 36.8; O2SAT 93; O2SAT 98; BMI 35.6
--- NOTE | 2022-10-28 06:13 | ECG_ITS ---
Test Reason : ABDOMINAL PAIN Blood Pressure : / mmHG Vent. Rate : 083 BPM Atrial Rate : 083 BPM P-R Int : 164 ms QRS Dur : 092 ms QT Int : 388 ms P-R-T Axes : 081 -39 057 degrees QTc Int : 455 ms artifact in tracing Normal sinus rhythm Left axis deviation Nonspecific ST and T wave abnormality Abnormal ECG When compared with ECG of 06-SEP-2022 16:17, No significant change was found Referred By: Ania Taylor Electronically Signed By:Eran Lincoln
[2022-10-28 06:18] LABS: MANUAL DIFF FLAG NO
[2022-10-28 06:31] LABS: Basophils Absolute Auto 0.1 X10*3/uL (0.0-0.2); Basophils Percent Auto 0.6 % (0-2); Eosinophils Absolute Auto 0.1 X10*3/uL (0.0-0.4); Eosinophils Percent Auto 0.8 % (0-4); Hematocrit 46.2 % (37.0-47.0); Imm Gran Abs Auto 0.04 X10*3/uL (0.00-0.03); Imm Gran Pct Auto 0.5 % (0.0-0.4); Lymphocytes Absolute Auto 0.8 X10*3/uL (1.2-4.9); Lymphocytes Percent Auto 10.3 % (20-40); Mean Corpuscular HGB Conc 32.5 g/dl (31.0-35.0); Mean Corpuscular Hemoglobin 29.8 pg (27.0-33.0); Mean Corpuscular Volume 91.7 fL (80.0-98.0); Mean Platelet Volume 9.7 fL (9.4-12.3); Monocytes Percent Auto 12.6 % (2-11); Neutrophils Absolute Auto 5.9 x10*3/uL (2.0-8.3); Neutrophils Percent Auto 75.2 % (45-73); Platelet Count 273 X10*3/uL (160-400); Red Blood Count 5.04 X10*6/uL (4.20-5.50); Red Cell Distribution Width 18.8 % (11.0-16.0); White Blood Count 7.8 X10*3/uL (4.8-10.8)
--- NOTE | 2022-10-28 06:31 | ED_ITS ---
HPI - Nausea/Vomiting/Diarrhea General Chief complaint: Nausea/Vomiting/Diarrhea Stated complaint: diarrhea Time Seen by Provider: 10/28/22 06:02 Source: patient Mode of arrival: EMS History of Present Illness HPI Narrative: This is an 82-year-old female who arrives via EMS with complaints of 4-5 days of diarrhea with mild nausea, poor appetite with poor food and fluid intake. He denies any fevers or chills reports some shortness of breath. Patient denies any chest pain and states that she is on blood thinners, water pills and denies any antibiotic use in the past 90 days. Related Data Home Medications Medication Instructions Recorded Confirmed apixaban 5 mg tablet (Eliquis) 5 mg PO BID 12/02/20 09/06/22 ropinirole 0.5 mg tablet 1 mg PO BEDTIME 12/02/20 09/06/22 atorvastatin 40 mg tablet 1 tab PO BEDTIME 05/11/21 09/06/22 gabapentin 400 mg capsule 800 mg PO TID 05/11/21 09/06/22 metoprolol succinate 25 mg 1 tab PO DAILY 05/11/21 09/06/22 tablet,extended release 24 hr torsemide 20 mg tablet 2 tab PO DAILY 05/11/21 09/06/22 diclofenac sodium 1 % topical gel 1 g topical QID 09/01/22 09/06/22 empagliflozin 10 mg tablet 10 mg PO DAILY 09/01/22 09/06/22 (Jardiance) spironolactone 25 mg tablet 25 mg PO DAILY@1700 09/01/22 09/06/22 thiamine HCl (vitamin B1) 100 mg 100 mg PO DAILY 09/01/22 09/06/22 tablet isosorbide mononitrate 30 mg 60 mg PO DAILY 09/06/22 09/06/22 tablet,extended release 24 hr ropinirole 0.5 mg tablet 0.5 mg PO BID@1200,1800 09/06/22 09/06/22 Previous Rx's Medication Instructions Recorded azathioprine 50 mg tablet 100 mg PO DAILY #180 tabs 09/01/22 budesonide 3 mg 9 mg PO DAILY #90 caps 09/01/22 capsule,delayed,extended release nitroglycerin 0.4 mg sublingual 0.4 mg sublingual Q5M PRN chest 09/06/22 tablet pain #30 tabs Allergies Allergy/AdvReac Type Severity Reaction Status Date / Time dogs, cats etc.. Allergy Unknown Unknown Uncoded 12/02/20 13:00 barium Allergy Hives Uncoded 05/11/21 15:00 Review of Systems Review of Systems: Pertinent positives and negatives as stated in [facility] Past Medical History Source: nursing notes reviewed Medical History Acute proctitis Colitis Constipation DVT (deep venous thrombosis) Hemorrhoids History of CHF (congestive heart failure) HTN (hypertension) Pre-diabetes Restless leg syndrome Spinal abscess Ulcerative colitis Surgical History Hx of shoulder surgery Social History Social History Household Members: Family Housing: House Alcohol intake: former Patient Tobacco Use Status: Never used Tobacco Smoked in Last 30 Days: No Use of substances other than those prescribed or required for medical reasons: No Advance Directives: No Advance Directives Information Provided: Yes service: No Current occupational status: retired Physical Exam Vital Signs: Vital Signs: Last Vital Signs Temp 98.2 F 10/28/22 05:57 Pulse 74 10/28/22 05:57 Resp 18 10/28/22 05:57 BP 153/61 H 10/28/22 05:57 Pulse Ox 93 10/28/22 05:57 O2 Del Method Room Air 10/28/22 05:57 BMI result Body Mass Index 35.6 VITAL SIGNS: Reviewed. GENERAL: Well developed, well nourished, in no acute distress. HEAD: Normocephalic/atraumatic EYES: PERRLA, EOMI EARS: Ext canals without abnormality OROPHARYNX: no oral lesions noted, posterior pharynx clear NECK: Supple, no adenopathy LUNGS: Good inspiratory effort, no tachypnea, rales noted on right base. SpO2<93> CARDIOVASCULAR: Regular rate and rhythm without noted murmurs, no JVD 1+ pitting bilateral lower extremity edema ABDOMEN: Soft, non-tender, non-distended with bowel sounds. MUSCULOSKELETAL: No tenderness, deformities, or effusions noted on gross inspection. EXTREMITIES: No cyanosis, clubbing or edema. SKIN: Inspection of the skin reveals no rashes NEUROLOGIC: Alert and oriented x 3. Strength and sensation to light touch were grossly intact x 4. Medical Decision Making Medical Decision Making MDM Narrative: 82-year-old female with history and clinical presentation suggestive of possible exacerbation of underlying UTI, ulcerative colitis, gastroenteritis and low clinical suspicion for diverticulitis. Signed out to Dr Musa Differential Diagnosis Please see the discussion above Lab Data 10/28/22 06:13 10/28/22 06:13 Labs: Lab Results 10/28/22 10/28/22 10/28/22 Range/Units 06:13 06:13 06:15 WBC 7.8 (4.8-10.8) X10*3/uL RBC 5.04 (4.20-5.50) X10*6/uL Hgb 15.0 (12.0-16.0) g/dl Hct 46.2 (37.0-47.0) % MCV 91.7 (80.0-98.0) fL MCH 29.8 (27.0-33.0) pg MCHC 32.5 (31.0-35.0) g/dl RDW 18.8 H (11.0-16.0) % Plt Count 273 (160-400) X10*3/uL MPV 9.7 (9.4-12.3) fL Immature Gran % (Auto) 0.5 H (0.0-0.4) % Neut % (Auto) 75.2 H (45-73) % Lymph % (Auto) 10.3 L (20-40) % [place] % (Auto) 12.6 H (2-11) % Eos % (Auto) 0.8 (0-4) % Baso % (Auto) 0.6 (0-2) % Lymph # (Auto) 0.8 L (1.2-4.9) X10*3/uL [place] # (Auto) 1.0 (0.1-1.2) X10*3/uL Eos # (Auto) 0.1 (0.0-0.4) X10*3/uL Baso # (Auto) 0.1 (0.0-0.2) X10*3/uL Abs Immat Gran (auto) 0.04 H (0.00-0.03) X10*3/uL Absolute Neuts (auto) 5.9 (2.0-8.3) x10*3/uL Absolute Nucleated RBC 0.000 (0.0-0.012) X10*3/uL Nucleated RBC % (auto) 0.0 (0.0-0.2) /100WBC Troponin I High Sens 12.0 D (<3.5-17.0) ng/L Influenza Type A (PCR) NEGATIVE (Negative) Influenza Type B (PCR) NEGATIVE (Negative) RSV RNA Qual (PCR) NEGATIVE (Negative) SARS-CoV-2 RNA (RT-PCR) NEGATIVE (Negative) Independent Interpretation I performed an independent interpretation of an: EKG Interpretation: Normal sinus rhythm, lot of baseline artifact due to patient's underlying restless leg syndrome, HR-83, no STEMI, NV/QRS/QTC is within normal limits. Discharge Plan Discharge Clinical Impression: Diarrhea Patient Disposition: Still a Patient Prescriptions: No Action isosorbide mononitrate 30 mg tablet extended release 24 hr 60 mg PO DAILY ropinirole 0.5 mg tablet 0.5 mg PO BID@1200,1800 nitroglycerin 0.4 mg tablet, sublingual 0.4 mg sublingual Q5M MDD 1.2mg (3 doses) PRN (Reason: chest pain) Qty: 30 0RF Rx Instructions: do not exceed 3 doses per episode atorvastatin 40 mg tablet 1 tab PO BEDTIME torsemide 20 mg tablet 2 tab PO DAILY gabapentin 400 mg capsule 800 mg PO TID metoprolol succinate 25 mg tablet extended release 24 hr 1 tab PO DAILY ropinirole 0.5 mg tablet 1 mg PO BEDTIME Eliquis 5 mg tablet 5 mg PO BID spironolactone 25 mg tablet 25 mg PO DAILY@1700 diclofenac sodium 1 % gel 1 g topical QID Jardiance 10 mg tablet 10 mg PO DAILY thiamine HCl (vitamin B1) 100 mg tablet 100 mg PO DAILY azathioprine 50 mg tablet 100 mg PO DAILY Qty: 180 2RF budesonide 3 mg capsule,delayed,extend.release 9 mg PO DAILY Qty: 90 11RF
[2022-10-28 06:57] LABS: Influenza A PCR NEGATIVE (Negative); Influenza B PCR NEGATIVE (Negative); Resp Syncy Virus RNA Qual PCR NEGATIVE (Negative); SARS COV2 PCR INHOUSE NEGATIVE (Negative)
[2022-10-28 07:11] LABS: INTERNATIONAL NORM RATIO 1.3 (0.9-1.1); Prothrombin Time 14.6 SEC (10.0-13.1)
[2022-10-28] MEDS: ondansetron HCL 4 MG/2 ML VIAL IVPUSH (07:18)
--- NOTE | 2022-10-28 07:40 | PC.NURSE ---
pt AOx3, reporting N/v x3 days. Pt permitted to take home Rispiridone per MD approval
[2022-10-28 07:47] LABS: B Type Natriuretic Peptide 25 pg/mL (<100)
[2022-10-28 08:00] VITALS: BP 104/52; PULSE 73; RESP 13; TEMP 37.3; O2SAT 93
[2022-10-28 08:01] LABS: Alanine Aminotransferase 21 U/L (0-31); Albumin Level 3.8 g/dL (3.5-5.0); Alkaline Phosphatase 48 U/L (39-117); Anion Gap 18 (12-20); Aspartate Amino Transferase 24 U/L (5-31); Blood Urea Nitrogen 28 mg/dL (9-16); Calcium 9.5 mg/dL (8.4-10.2); Carbon Dioxide 23 mmol/L (22-29); Chloride 106 mmol/L (96-108); Estimated Glomerular Filt Rate 47; Glucose Random 81 mg/dL (60-115); Lipase 33 U/L (8-78); Potassium 3.8 mmol/L (3.3-5.1); Sodium 143 mmol/L (135-145); Total Protein 6.2 g/dL (6.5-8.0)
[2022-10-28 08:41] LABS: Appearance Urine Cloudy; Color Urine Yellow; Glucose Urine UA >=1000 mg/dL (Negative); Leukocyte Esterase Urine Small (1+) (Negative); Nitrite Urine Negative (Negative); UMIC TRIGGER UACC YES; Urine Blood Small (1+) (Negative); Urine Ketones 15 mg/dL (Negative); Urine Protein Trace mg/dL (Neg-Trace)
[2022-10-28 08:58] LABS: Bacteria Urine 1+ (None Seen); RBC Urine 0-2 /HPF (0-2); Squamous Epithelial Cell Urine 0-2 /HPF (0-2); UACC Culture Trigger YES; WBC Urine 21-50 /HPF (0-5)
== END 2022-10-28 10:13 | disposition home or self-care (01) ==
PROVIDERS: Student in an Organized Health Care Education/Training Program; Emergency Provider Emergency Medicine; PCP Family Medicine
DX: R19.7 Diarrhea, unspecified (principal); N39.0 Urinary tract infection, site not specified; B96.1 Klebsiella pneumoniae [K. pneumoniae] as the cause of diseases classified elsewhere; R06.02 Shortness of breath; Z20.822 Contact with and (suspected) exposure to COVID-19; Z20.828 Contact with and (suspected) exposure to other viral communicable diseases; I11.0 Hypertensive heart disease with heart failure; I50.9 Heart failure, unspecified; E11.9 Type 2 diabetes mellitus without complications; Z86.718 Personal history of other venous thrombosis and embolism; Z79.01 Long term (current) use of anticoagulants; Z79.02 Long term (current) use of antithrombotics/antiplatelets; Z79.899 Other long term (current) drug therapy
CPT/HCPCS: 0241U; 36415; 51701; 74176; 80053; 81001; 83690; 83880; 84484; 85025; 85610; 87086; 87088; 87186; 93005; 96374; 99284; J2405

== ENCOUNTER 2022-11-15 17:42 | Inpatient (IN) | payer MEDICARE, SELFPAY ==
--- NOTE | ~2022-11-15 | CT_ITS ---
EXAMINATION: CT CHEST WITHOUT CONTRAST CLINICAL INFORMATION: cough. COMPARISON: Visualized lung bases on the 10/28/2022 CT scan of the abdomen. TECHNIQUE: Multidetector volumetric imaging was performed from the thoracic inlet through the lung bases without contrast. Sagittal and coronal reformatted images were obtained on the technologist workstation. Soft tissue and lung algorithms evaluated. Thick slab MIP images were performed to increase nodule conspicuity. This CT examination was performed using dose optimization techniques as appropriate, variously including the following: *Automated exposure control *Adjustment of mA and/or kV according to patient size (this includes techniques or standardized protocols for targeted exams where dose is matched to indication/reason for exam; i.e. extremities or head) *Use of iterative reconstruction technique DLP: 507 mGy-cm. FINDINGS: LUNG: Patchy airspace disease is seen more so in the dependent aspect of the right upper lobe and both lower lobes. Subtle air bronchograms are noted. The basilar markings have significantly worsened from the 10/28/2022 CT scan. MEDIASTINUM: Shotty mediastinal lymph nodes are noted. Vascular calcification in aorta. Coronary artery stent seen. CORONARY ARTERY CALCIFICATION: Present PERICARDIUM/PLEURA: No significant effusion. No pleural mass or thickening. THYROID/VISUALIZED LOWER NECK: Unremarkable. CHEST WALL/AXILLA: Unremarkable. VISUALIZED UPPER ABDOMEN: Low-attenuation probable renal cyst partially visualized. Gallbladder surgically absent BONES: Degenerative changes in the visualized left greater than right shoulders CT/CT chest wo IV con IMPRESSION: Patchy airspace disease more so in the dependent aspect of the right upper lobe and both lower lobes. Infectious or inflammatory causes would be favored.
--- NOTE | ~2022-11-15 | XR_ITS ---
EXAMINATION: PORTABLE CHEST 1 VIEW CLINICAL INFORMATION: cough, shortness of breath. COMPARISON: 09/06/2022. TECHNIQUE: Portable frontal view of the chest was obtained. FINDINGS: Lungs well-expanded. There are chronic areas of airspace disease at the left base and in the right upper lobe. These have become slightly more prominent on today's study compared to the prior examination. Cannot exclude tiny left effusion. No overt edema. Cardiac silhouette within normal limits for size. Degenerative changes in the spine and shoulders XR/XR chest 1V IMPRESSION: Although there are chronic appearing changes present, there is increased airspace disease at the left base and right upper lobe when compared to the prior study. Acute on chronic changes are difficult to assess, especially at the left base
[2022-11-15 17:54] VITALS: BP 128/64; BP 149/63; PULSE 103; PULSE 112; RESP 18; TEMP 36.9; O2SAT 94; O2SAT 95; BMI 34.5
--- NOTE | 2022-11-15 17:56 | ECG_ITS ---
Test Reason : SEPSIS Blood Pressure : / mmHG Vent. Rate : 112 BPM Atrial Rate : 112 BPM P-R Int : 150 ms QRS Dur : 090 ms QT Int : 340 ms P-R-T Axes : 077 -36 076 degrees QTc Int : 464 ms Sinus tachycardia with Premature supraventricular complexes Left axis deviation Abnormal ECG When compared with ECG of 28-OCT-2022 06:37, Premature supraventricular complexes are now Present Referred By: Immanuel Park Electronically Signed By:Eran Lincoln
--- NOTE | 2022-11-15 18:16 | PC.NURSE ---
pt alert to verbal stimuli, not oriented and unsure of place and time. Pt somnolent and lethargic. Pt symptoms have been building over the past couple days. hand grasps equal, and no facial droop noted. family reports that pt is usually alert/oriented at baseline. Pt has hx of UTI. PA noted some conjunctivitis in left eye. pt afebrile, tachycardic. Pressure stable 149/63. EKG done sinus tach. Tech in with pt now for labs and BCs. coarse crackles heard in lung bases, pt reports having a wet cough for a long time
--- NOTE | 2022-11-15 18:21 | ED.GENADULT ---
HPI - General Adult General Chief complaint: General Medical Stated complaint: SEPSIS ALERT, VOMITING, DIARRHEA, LETHARGY Time Seen by Provider: 11/15/22 17:46 Source: patient, EMS, RN notes reviewed and old records reviewed Mode of arrival: EMS Limitations: no limitations History of Present Illness HPI narrative: 82-year-old female with past medical history significant for CHF, hypertension, prediabetes, restless leg syndrome presents for evaluation of weakness and vomiting. Per EMS and the patient, the patient started vomiting earlier today. She has felt warm but has not had any objective fevers Per the patient's family, the patient has had increased weakness and not acting himself for the last 2 or 3 days The patient has a cough but she is unsure when it started, she denies any shortness of breath She does have some leg swelling history of CHF Patient denies any pain at this time She was seen here on 10/28/2022 and diagnosed with a UTI. It is unclear if the patient at and 8 completed her antibiotic course Related Data Home Medications Medication Instructions Recorded Confirmed apixaban 5 mg tablet (Eliquis) 5 mg PO BID 12/02/20 11/15/22 ropinirole 0.5 mg tablet 1 mg PO BEDTIME 12/02/20 11/15/22 atorvastatin 40 mg tablet 1 tab PO BEDTIME 05/11/21 11/15/22 gabapentin 400 mg capsule 800 mg PO TID@1200,1800,2100 05/11/21 11/15/22 metoprolol succinate 25 mg 1 tab PO DAILY 05/11/21 11/15/22 tablet,extended release 24 hr torsemide 20 mg tablet 2 tab PO DAILY 05/11/21 11/15/22 diclofenac sodium 1 % topical gel 1 g topical QID PRN Pain 09/01/22 11/15/22 empagliflozin 10 mg tablet 10 mg PO DAILY 09/01/22 11/15/22 (Jardiance) spironolactone 25 mg tablet 25 mg PO DAILY@0900,1800 09/01/22 11/15/22 thiamine HCl (vitamin B1) 100 mg 100 mg PO DAILY@1200 09/01/22 11/15/22 tablet ropinirole 0.5 mg tablet 0.5 mg PO BID@1200,1800 09/06/22 11/15/22 azathioprine 50 mg tablet 100 mg PO DAILY@1800 11/15/22 11/15/22 isosorbide mononitrate 60 mg 60 mg PO BID@0900,1800 11/15/22 11/15/22 tablet,extended release 24 hr Previous Rx's Medication Instructions Recorded budesonide 3 mg 9 mg PO DAILY #90 caps 09/01/22 capsule,delayed,extended release nitroglycerin 0.4 mg sublingual 0.4 mg sublingual Q5M PRN chest 09/06/22 tablet pain #30 tabs Allergies Allergy/AdvReac Type Severity Reaction Status Date / Time dogs, cats etc.. Allergy Unknown Unknown Uncoded 12/02/20 13:00 barium Allergy Hives Uncoded 05/11/21 15:00 Review of Systems Constitutional: Constitutional: Reports body ache(s), Reports fatigue, Denies headache(s) and Reports weakness ENT: Denies dizziness and Denies headache(s) Cardiovascular: Cardiovascular: Denies chest pain, Reports leg edema and Denies dyspnea Respiratory: Respiratory: Reports cough and Denies dyspnea Gastrointestinal: Gastrointestinal: Denies abdominal pain, Reports nausea and Reports vomiting Genitourinary: Genitourinary: Denies dysuria Musculoskeletal: Musculoskeletal: Denies back pain, Denies arthralgias and Denies joint swelling Integumentary/Breasts: Skin/Breast: Denies rash Neurologic: Denies dizziness, Denies headache(s) and Reports weakness Endocrine: Endocrine: Reports fatigue PMFSH Past Medical History Medical History Acute proctitis Colitis Constipation DVT (deep venous thrombosis) Hemorrhoids History of CHF (congestive heart failure) HTN (hypertension) Pre-diabetes Restless leg syndrome Spinal abscess Ulcerative colitis Surgical History Hx of shoulder surgery Social History Social History Household Members: Family Housing: House Alcohol intake: never Patient Tobacco Use Status: Never used Tobacco Smoked in Last 30 Days: No Use of substances other than those prescribed or required for medical reasons: No Advance Directives: No Advance Directives Information Provided: No service: No Current occupational status: retired Physical Exam ED Vital Signs: Vital Signs - 24 hr 11/15/22 17:54 11/15/22 18:43 11/15/22 18:43 Temperature 98.5 F Pulse Rate 103 H Respiratory Rate 18 Blood Pressure 149/63 H Pulse Oximetry 94 85 L 94 Oxygen Delivery Method Room Air Room Air Nasal Cannula Oxygen Flow Rate 3 11/15/22 20:05 Temperature 98.9 F Pulse Rate 106 H Respiratory Rate 16 Blood Pressure 139/65 Pulse Oximetry 96 Oxygen Delivery Method Oxygen Flow Rate BMI result Body Mass Index 34.5 Const General: cooperative and no acute distress Orientation/consciousness: patient oriented x3 Limitations: no limitations Eyes Periorbital: periorbital findings normal Conjunctivae: conjunctival abnormal right conjunctival injection Pupils: Equal, round and reactive pupils present EOM: EOMs intact bilaterally Resp Effort & Inspection: normal respiratory effort and able to speak in complete sentences Auscultation: crackles (Faint crackles in the bilateral bases) Cardio Rate: regular rate and bradycardic GI Inspection: No distended and Yes obesity Palpation (GI): Soft to palpation, not firm, nontender, no guarding and not rigid Auscultation: normoactive bowel sounds Skin General skin exam: no rashes or lesions noted Neuro General: patient oriented x3 Cranial nerves: Yes Equal, round and reactive pupils present Course Reevaluation(s) Reevaluation #1: Discussed with patient's daughter Lashon at bedside. It seems the patient symptoms doctor started today with increased confusion. Lashon states the patient has a dry cough at baseline. The patient was reporting increased weakness and did vomit a few times earlier as mentioned previously. Nursing staff brought to my attention the patient was 86% oxygen saturation on room air at 1 point and was she was placed on nasal cannula at 3 L with good improvement in her oxygen saturation. Chest x-ray showed vague increased airspace opacities in the right upper and left lower lung. We will follow this up with a CT scan of the chest to better evaluate. Time: 19:50 Reevaluation #2: Patient's CT scan is also in favor of infectious process. We will treat with ceftriaxone, azithromycin given the patient's hypoxia. She will be admitted to the hospitalist service Time: 23:18 Medications Administered Generic Name Dose Route Start Last Admin Trade Name Freq PRN Reason Stop Dose Admin Sodium Chloride 1,000 mls @ 250 mls/hr 11/15/22 20:30 11/15/22 21:41 Ns IVCONT 11/16/22 00:29 250 mls/hr .Q4H AUDI Administration Discontinued Medications Generic Name Dose Route Start Last Admin Trade Name Dayami PRN Reason Stop Dose Admin Erythromycin 1 cm 11/15/22 17:58 11/15/22 19:10 Erythromycin Base 0.5% Oph Oin 1 Gm Tube EYE-RIGHT 11/15/22 17:59 1 cm ONCE ONE Administration Ceftriaxone Sodium 1 gm/ 50 mls @ 100 mls/hr 11/15/22 20:28 11/15/22 22:26 Sodium Chloride IV 11/15/22 20:57 Infused ONCE ONE Infusion Azithromycin 500 mg/ Sodium 250 mls @ 125 mls/hr 11/15/22 20:28 11/15/22 22:26 Chloride IV 11/15/22 22:27 125 mls/hr ONCE ONE Administration Medical Decision Making Medical Decision Making [facility] Narrative: 82-year-old female who is a fairly poor historian presents for evaluation of weakness and vomiting. She is slightly tachycardic on arrival but is afebrile and normotensive. Will start with labs, chest x-ray, UA, EKG. There is a broad differential at this time. Differential Diagnosis Pneumonia CHF UTI Pyelonephritis Sepsis Viral syndrome Gastroenteritis Lab Data 11/15/22 18:26 11/15/22 18:26 Labs: Lab Results 11/15/22 11/15/22 11/15/22 Range/Units 18:25 18:25 18:26 WBC 9.4 (4.8-10.8) X10*3/uL RBC 5.07 (4.20-5.50) X10*6/uL Hgb 15.0 (12.0-16.0) g/dl Hct 46.7 (37.0-47.0) % MCV 92.1 (80.0-98.0) fL MCH 29.6 (27.0-33.0) pg MCHC 32.1 (31.0-35.0) g/dl RDW 17.8 H (11.0-16.0) % Plt Count 272 (160-400) X10*3/uL MPV 9.3 L (9.4-12.3) fL Immature Gran % (Auto) 1.3 H (0.0-0.4) % Neut % (Auto) 75.6 H (45-73) % Lymph % (Auto) 6.3 L (20-40) % Schleicher % (Auto) 16.1 H (2-11) % Eos % (Auto) 0.1 (0-4) % Baso % (Auto) 0.6 (0-2) % Lymph # (Auto) 0.6 L (1.2-4.9) X10*3/uL Schleicher # (Auto) 1.5 H (0.1-1.2) X10*3/uL Eos # (Auto) 0.0 (0.0-0.4) X10*3/uL Baso # (Auto) 0.1 (0.0-0.2) X10*3/uL Abs Immat Gran (auto) 0.12 H (0.00-0.03) X10*3/uL Absolute Neuts (auto) 7.1 (2.0-8.3) x10*3/uL Absolute Nucleated RBC 0.000 (0.0-0.012) X10*3/uL Nucleated RBC % (auto) 0.0 (0.0-0.2) /100WBC PT (10.0-13.1) SEC INR (0.9-1.1) APTT (26.0-36.4) SEC Sodium (135-145) mmol/L Potassium (3.3-5.1) mmol/L Chloride (96-108) mmol/L Carbon Dioxide (22-29) mmol/L Anion Gap (12-20) BUN (9-16) mg/dL Creatinine (0.5-1.4) mg/dL Estim Creat Clear Calc Estimated GFR Random Glucose (60-115) mg/dL Lactic Acid 1.8 (0.5-2.0) mmol/L Calcium (8.4-10.2) mg/dL Magnesium (1.6-2.6) mg/dL Total Bilirubin (0.0-1.0) mg/dL AST (5-31) U/L ALT (0-31) U/L Alkaline Phosphatase (39-117) U/L Troponin I High Sens (<3.5-17.0) ng/L B-Natriuretic Peptide (<100) pg/mL Total Protein (6.5-8.0) g/dL Albumin (3.5-5.0) g/dL Lipase (8-78) U/L Influenza Type A (PCR) NEGATIVE (Negative) Influenza Type B (PCR) NEGATIVE (Negative) RSV RNA Qual (PCR) NEGATIVE (Negative) SARS-CoV-2 RNA (RT-PCR) NEGATIVE (Negative) 11/15/22 11/15/22 11/15/22 Range/Units 18:26 18:26 18:26 WBC (4.8-10.8) X10*3/uL RBC (4.20-5.50) X10*6/uL Hgb (12.0-16.0) g/dl Hct (37.0-47.0) % MCV (80.0-98.0) fL MCH (27.0-33.0) pg MCHC (31.0-35.0) g/dl RDW (11.0-16.0) % Plt Count (160-400) X10*3/uL MPV (9.4-12.3) fL Immature Gran % (Auto) (0.0-0.4) % Neut % (Auto) (45-73) % Lymph % (Auto) (20-40) % Schleicher % (Auto) (2-11) % Eos % (Auto) (0-4) % Baso % (Auto) (0-2) % Lymph # (Auto) (1.2-4.9) X10*3/uL Schleicher # (Auto) (0.1-1.2) X10*3/uL Eos # (Auto) (0.0-0.4) X10*3/uL Baso # (Auto) (0.0-0.2) X10*3/uL Abs Immat Gran (auto) (0.00-0.03) X10*3/uL Absolute Neuts (auto) (2.0-8.3) x10*3/uL Absolute Nucleated RBC (0.0-0.012) X10*3/uL Nucleated RBC % (auto) (0.0-0.2) /100WBC PT 15.2 H (10.0-13.1) SEC INR 1.3 H (0.9-1.1) APTT 35.6 (26.0-36.4) SEC Sodium 142 (135-145) mmol/L Potassium 3.8 (3.3-5.1) mmol/L Chloride 100 (96-108) mmol/L Carbon Dioxide 25 (22-29) mmol/L Anion Gap 21 H (12-20) BUN 23 H (9-16) mg/dL Creatinine 1.15 (0.5-1.4) mg/dL Estim Creat Clear Calc 37.6 Estimated GFR 45 Random Glucose 131 H (60-115) mg/dL Lactic Acid (0.5-2.0) mmol/L Calcium 9.4 (8.4-10.2) mg/dL Magnesium 1.9 (1.6-2.6) mg/dL Total Bilirubin 1.8 H (0.0-1.0) mg/dL AST 21 (5-31) U/L ALT 17 (0-31) U/L Alkaline Phosphatase 69 (39-117) U/L Troponin I High Sens 22.2 H D (<3.5-17.0) ng/L B-Natriuretic Peptide (<100) pg/mL Total Protein 6.5 (6.5-8.0) g/dL Albumin 3.7 (3.5-5.0) g/dL Lipase 16 (8-78) U/L Influenza Type A (PCR) (Negative) Influenza Type B (PCR) (Negative) RSV RNA Qual (PCR) (Negative) SARS-CoV-2 RNA (RT-PCR) (Negative) 11/15/22 11/15/22 Range/Units 18:26 20:43 WBC (4.8-10.8) X10*3/uL RBC (4.20-5.50) X10*6/uL Hgb (12.0-16.0) g/dl Hct (37.0-47.0) % MCV (80.0-98.0) fL MCH (27.0-33.0) pg MCHC (31.0-35.0) g/dl RDW (11.0-16.0) % Plt Count (160-400) X10*3/uL MPV (9.4-12.3) fL Immature Gran % (Auto) (0.0-0.4) % Neut % (Auto) (45-73) % Lymph % (Auto) (20-40) % Schleicher % (Auto) (2-11) % Eos % (Auto) (0-4) % Baso % (Auto) (0-2) % Lymph # (Auto) (1.2-4.9) X10*3/uL Schleicher # (Auto) (0.1-1.2) X10*3/uL Eos # (Auto) (0.0-0.4) X10*3/uL Baso # (Auto) (0.0-0.2) X10*3/uL Abs Immat Gran (auto) (0.00-0.03) X10*3/uL Absolute Neuts (auto) (2.0-8.3) x10*3/uL Absolute Nucleated RBC (0.0-0.012) X10*3/uL Nucleated RBC % (auto) (0.0-0.2) /100WBC PT (10.0-13.1) SEC INR (0.9-1.1) APTT (26.0-36.4) SEC Sodium (135-145) mmol/L Potassium (3.3-5.1) mmol/L Chloride (96-108) mmol/L Carbon Dioxide (22-29) mmol/L Anion Gap (12-20) BUN (9-16) mg/dL Creatinine (0.5-1.4) mg/dL Estim Creat Clear Calc Estimated GFR Random Glucose (60-115) mg/dL Lactic Acid (0.5-2.0) mmol/L Calcium (8.4-10.2) mg/dL Magnesium (1.6-2.6) mg/dL Total Bilirubin (0.0-1.0) mg/dL AST (5-31) U/L ALT (0-31) U/L Alkaline Phosphatase (39-117) U/L Troponin I High Sens 19.5 H (<3.5-17.0) ng/L B-Natriuretic Peptide 51 (<100) pg/mL Total Protein (6.5-8.0) g/dL Albumin (3.5-5.0) g/dL Lipase (8-78) U/L Influenza Type A (PCR) (Negative) Influenza Type B (PCR) (Negative) RSV RNA Qual (PCR) (Negative) SARS-CoV-2 RNA (RT-PCR) (Negative) Discharge Plan Discharge Clinical Impression: Pneumonia Patient Disposition: Admitted As Inpatient Prescriptions: No Action ropinirole 0.5 mg tablet 0.5 mg PO BID@1200,1800 nitroglycerin 0.4 mg tablet, sublingual 0.4 mg sublingual Q5M MDD 1.2mg (3 doses) PRN (Reason: chest pain) Qty: 30 0RF Rx Instructions: do not exceed 3 doses per episode atorvastatin 40 mg tablet 1 tab PO BEDTIME torsemide 20 mg tablet 2 tab PO DAILY gabapentin 400 mg capsule 800 mg PO TID@1200,1800,2100 metoprolol succinate 25 mg tablet extended release 24 hr 1 tab PO DAILY isosorbide mononitrate 60 mg tablet extended release 24 hr 60 mg PO BID@0900,1800 azathioprine 50 mg tablet 100 mg PO DAILY@1800 ropinirole 0.5 mg tablet 1 mg PO BEDTIME Eliquis 5 mg tablet 5 mg PO BID spironolactone 25 mg tablet 25 mg PO DAILY@0900,1800 diclofenac sodium 1 % gel 1 g topical QID PRN (Reason: Pain) Jardiance 10 mg tablet 10 mg PO DAILY thiamine HCl (vitamin B1) 100 mg tablet 100 mg PO DAILY@1200 budesonide 3 mg capsule,delayed,extend.release 9 mg PO DAILY Qty: 90 11RF
[2022-11-15 18:33] LABS: Basophils Absolute Auto 0.1 X10*3/uL (0.0-0.2); Basophils Percent Auto 0.6 % (0-2); Eosinophils Percent Auto 0.1 % (0-4); Hematocrit 46.7 % (37.0-47.0); Imm Gran Abs Auto 0.12 X10*3/uL (0.00-0.03); Imm Gran Pct Auto 1.3 % (0.0-0.4); Lymphocytes Absolute Auto 0.6 X10*3/uL (1.2-4.9); Lymphocytes Percent Auto 6.3 % (20-40); Mean Corpuscular HGB Conc 32.1 g/dl (31.0-35.0); Mean Corpuscular Hemoglobin 29.6 pg (27.0-33.0); Mean Corpuscular Volume 92.1 fL (80.0-98.0); Mean Platelet Volume 9.3 fL (9.4-12.3); Monocytes Absolute Auto 1.5 X10*3/uL (0.1-1.2); Monocytes Percent Auto 16.1 % (2-11); Neutrophils Absolute Auto 7.1 x10*3/uL (2.0-8.3); Neutrophils Percent Auto 75.6 % (45-73); Platelet Count 272 X10*3/uL (160-400); Red Blood Count 5.07 X10*6/uL (4.20-5.50); Red Cell Distribution Width 17.8 % (11.0-16.0); SCAN SMEAR FLAG 1; White Blood Count 9.4 X10*3/uL (4.8-10.8)
[2022-11-15 18:36] LABS: MANUAL DIFF FLAG NO
[2022-11-15 18:43] VITALS: O2SAT 85; O2SAT 94
[2022-11-15 18:56] LABS: INTERNATIONAL NORM RATIO 1.3 (0.9-1.1); Prothrombin Time 15.2 SEC (10.0-13.1)
[2022-11-15 18:57] LABS: Lactic Acid 1.8 mmol/L (0.5-2.0)
[2022-11-15 18:59] LABS: Partial Thromboplastin Time 35.6 SEC (26.0-36.4)
[2022-11-15 19:02] LABS: Alanine Aminotransferase 17 U/L (0-31); Albumin Level 3.7 g/dL (3.5-5.0); Alkaline Phosphatase 69 U/L (39-117); Anion Gap 21 (12-20); Aspartate Amino Transferase 21 U/L (5-31); Bilirubin Total 1.8 mg/dL (0.0-1.0); Blood Urea Nitrogen 23 mg/dL (9-16); Calcium 9.4 mg/dL (8.4-10.2); Carbon Dioxide 25 mmol/L (22-29); Chloride 100 mmol/L (96-108); Creatinine Clr Calc Pharmacy 37.6; Estimated Glomerular Filt Rate 45; Glucose Random 131 mg/dL (60-115); Lipase 16 U/L (8-78); Magnesium 1.9 mg/dL (1.6-2.6); Potassium 3.8 mmol/L (3.3-5.1); Sodium 142 mmol/L (135-145); Total Protein 6.5 g/dL (6.5-8.0)
[2022-11-15 19:07] LABS: B Type Natriuretic Peptide 51 pg/mL (<100)
[2022-11-15 19:09] LABS: Troponin-I High Sensitivity 22.2 ng/L (<3.5-17.0)
[2022-11-15] MEDS: Erythromycin Base 0.5% Oph Oin 1 GM TUBE 1 CM EYE-RIGHT (19:10)
[2022-11-15 19:19] LABS: Influenza A PCR NEGATIVE (Negative); Influenza B PCR NEGATIVE (Negative); Resp Syncy Virus RNA Qual PCR NEGATIVE (Negative); SARS COV2 PCR INHOUSE NEGATIVE (Negative)
[2022-11-15 20:05] VITALS: BP 139/65; PULSE 106; RESP 16; TEMP 37.2; O2SAT 96
[2022-11-15 21:15] LABS: Troponin-I High Sensitivity 19.5 ng/L (<3.5-17.0)
--- NOTE | 2022-11-15 21:21 | PHA.MEDREC ---
Pharmacy Consult ? Medication Reconciliation Pharmacy has completed the medication reconciliation.
[2022-11-15] MEDS: cefTRIAXone sodium 1 GM in 0.9 % Sodium Chloride 50 ML IV (21:40)
[2022-11-15] MEDS: 0.9 % Sodium Chloride 1,000 ML 250 ML IVCONT (21:41)
[2022-11-15] MEDS: Azithromycin 500 MG in 0.9 % Sodium Chloride 250 ML 125 MG IV (22:26)
--- NOTE | 2022-11-15 23:31 | P.HPHOSP_ITS ---
History of Present Illness Date of Service: 11/15/22 Chief Complaint: Altered mentation This is a 82-year-old female with pertinent history of ulcerative colitis, DVT on Eliquis, congestive heart failure unspecified ejection fraction, restless leg syndrome who was brought to the emergency department for evaluation lethargy and confusion. Patient is a poor historian unable to provide history or review of systems. History obtained from ER provider and chart review. Patient felt weak and had nausea and nonbloody emesis on the day of presentation. As per the family, patient is not acting herself. Patient's body has felt warm but no documented temperature. Patient also has a cough. Unable to obtain review of systems. In the emergency department, patient was found to be hypoxemic and imaging concerning for pneumonia. Review of Systems Review of Systems: Yes Unobtainable due to mental status PMFSH Medical History Acute proctitis Colitis Constipation DVT (deep venous thrombosis) Hemorrhoids History of CHF (congestive heart failure) HTN (hypertension) Pre-diabetes Restless leg syndrome Spinal abscess Ulcerative colitis Pertinent family history: Not significant due to age Surgical History Hx of shoulder surgery Social History Household Members: Family Housing: House Alcohol intake: never Patient Tobacco Use Status: Never used Tobacco Smoked in Last 30 Days: No Use of substances other than those prescribed or required for medical reasons: No Advance Directives: No Advance Directives Information Provided: No service: No Current occupational status: retired [employer] Allergies Allergy/AdvReac Type Severity Reaction Status Date / Time dogs, cats etc.. Allergy Unknown Unknown Uncoded 12/02/20 13:00 barium Allergy Hives Uncoded 05/11/21 15:00 Active Medications: Current Medications Sodium Chloride (Ns) 1,000 mls @ 250 mls/hr IVCONT .Q4H AUDI Stop: 11/16/22 00:29 Last Admin: 11/15/22 21:41 Dose: 250 mls/hr Pharmacy Consult (Consult Rx Perform Med Rec) 1 each MISCELLANE ONCE PRN PRN Reason: Consult order Home Medications Medication Instructions Recorded Confirmed Last Taken Type apixaban 5 mg tablet (Eliquis) 5 mg PO BID 12/02/20 11/15/22 09/06/22 History ropinirole 0.5 mg tablet 1 mg PO BEDTIME 12/02/20 11/15/22 09/05/22 History atorvastatin 40 mg tablet 1 tab PO BEDTIME 05/11/21 11/15/22 08/29/22 History gabapentin 400 mg capsule 800 mg PO TID@1200,1800,2100 05/11/21 11/15/22 09/06/22 History metoprolol succinate 25 mg 1 tab PO DAILY 05/11/21 11/15/22 09/06/22 History tablet,extended release 24 hr torsemide 20 mg tablet 2 tab PO DAILY 05/11/21 11/15/22 09/06/22 History diclofenac sodium 1 % topical gel 1 g topical QID PRN Pain 09/01/22 11/15/22 09/06/22 History empagliflozin 10 mg tablet 10 mg PO DAILY 09/01/22 11/15/22 09/06/22 History (Jardiance) spironolactone 25 mg tablet 25 mg PO DAILY@0900,1800 09/01/22 11/15/22 09/05/22 History thiamine HCl (vitamin B1) 100 mg 100 mg PO DAILY@1200 09/01/22 11/15/22 09/06/22 History tablet ropinirole 0.5 mg tablet 0.5 mg PO BID@1200,1800 09/06/22 11/15/22 09/06/22 History azathioprine 50 mg tablet 100 mg PO DAILY@1800 11/15/22 11/15/22 Unknown History isosorbide mononitrate 60 mg 60 mg PO BID@0900,1800 11/15/22 11/15/22 Unknown History tablet,extended release 24 hr Physical Exam Vital Signs and Narrative: Vital Signs: Last Vital Signs Temp 98.9 F 11/15/22 20:05 Pulse 106 H 11/15/22 20:05 Resp 16 11/15/22 20:05 BP 139/65 11/15/22 20:05 Pulse Ox 96 11/15/22 20:05 O2 Del Method Nasal Cannula 11/15/22 18:43 O2 Flow Rate 3 11/15/22 18:43 BMI result Body Mass Index 34.5 Elderly female lying in bed in no distress on supplemental oxygen Neck supple, no JVD Regular rate and rhythm, S1-S2 heard Right-sided crackles, no wheezing Abdomen soft nontender, no guarding, no rigidity Patient is awake, alert and oriented to self, disoriented to place, time and person ; no focal motor deficit Psych: Normal mood Results Labs 11/15/22 18:26 11/15/22 18:26 Labs: Laboratory Results - last 24 hr 11/15/22 11/15/22 11/15/22 18:25 18:25 18:26 MCV 92.1 MCH 29.6 MCHC 32.1 RDW 17.8 H Plt Count 272 MPV 9.3 L Immature Gran % (Auto) 1.3 H Neut % (Auto) 75.6 H Lymph % (Auto) 6.3 L [place] % (Auto) 16.1 H Eos % (Auto) 0.1 Baso % (Auto) 0.6 Lymph # (Auto) 0.6 L [place] # (Auto) 1.5 H Eos # (Auto) 0.0 Baso # (Auto) 0.1 Abs Immat Gran (auto) 0.12 H Absolute Neuts (auto) 7.1 Absolute Nucleated RBC 0.000 Nucleated RBC % (auto) 0.0 PT INR APTT Anion Gap Estim Creat Clear Calc Estimated GFR Random Glucose Lactic Acid 1.8 Calcium Magnesium Total Bilirubin AST ALT Alkaline Phosphatase Troponin I High Sens B-Natriuretic Peptide Total Protein Albumin Lipase Influenza Type A (PCR) NEGATIVE Influenza Type B (PCR) NEGATIVE RSV RNA Qual (PCR) NEGATIVE SARS-CoV-2 RNA (RT-PCR) NEGATIVE 11/15/22 11/15/22 11/15/22 18:26 18:26 18:26 MCV MCH MCHC RDW Plt Count MPV Immature Gran % (Auto) Neut % (Auto) Lymph % (Auto) [place] % (Auto) Eos % (Auto) Baso % (Auto) Lymph # (Auto) [place] # (Auto) Eos # (Auto) Baso # (Auto) Abs Immat Gran (auto) Absolute Neuts (auto) Absolute Nucleated RBC Nucleated RBC % (auto) PT 15.2 H INR 1.3 H APTT 35.6 Anion Gap 21 H Estim Creat Clear Calc 37.6 Estimated GFR 45 Random Glucose 131 H Lactic Acid Calcium 9.4 Magnesium 1.9 Total Bilirubin 1.8 H AST 21 ALT 17 Alkaline Phosphatase 69 Troponin I High Sens 22.2 H D B-Natriuretic Peptide Total Protein 6.5 Albumin 3.7 Lipase 16 Influenza Type A (PCR) Influenza Type B (PCR) RSV RNA Qual (PCR) SARS-CoV-2 RNA (RT-PCR) 11/15/22 11/15/22 18:26 20:43 MCV MCH MCHC RDW Plt Count MPV Immature Gran % (Auto) Neut % (Auto) Lymph % (Auto) [place] % (Auto) Eos % (Auto) Baso % (Auto) Lymph # (Auto) [place] # (Auto) Eos # (Auto) Baso # (Auto) Abs Immat Gran (auto) Absolute Neuts (auto) Absolute Nucleated RBC Nucleated RBC % (auto) PT INR APTT Anion Gap Estim Creat Clear Calc Estimated GFR Random Glucose Lactic Acid Calcium Magnesium Total Bilirubin AST ALT Alkaline Phosphatase Troponin I High Sens 19.5 H B-Natriuretic Peptide 51 Total Protein Albumin Lipase Influenza Type A (PCR) Influenza Type B (PCR) RSV RNA Qual (PCR) SARS-CoV-2 RNA (RT-PCR) Imaging Radiologist's Impressions: Impressions Chest X-Ray 11/15/22 18:35 IMPRESSION: Although there are chronic appearing changes present, there is increased airspace disease at the left base and right upper lobe when compared to the prior study. Acute on chronic changes are difficult to assess, especially at the left base Chest CT 11/15/22 19:57 IMPRESSION: Patchy airspace disease more so in the dependent aspect of the right upper lobe and both lower lobes. Infectious or inflammatory causes would be favored. Assessment and Plan (1) Pneumonia: Status: Acute Plan This is a 82-year-old female with pertinent history of ulcerative colitis, DVT on Eliquis, congestive heart failure unspecified ejection fraction, restless leg syndrome who was brought to the emergency department for evaluation lethargy and confusion. #. Acute hypoxemic respiratory failure secondary to pneumonia: ?aspiration. Will admit and initiate empiric IV antibiotics. NPO until speech evaluation. Blood cultures pending #. Acute metabolic encephalopathy in the setting of above. Monitor mentation with antibiotics. Maintain sleep-wake cycle #. Elevated troponin, likely type 2 in the setting of increased demand. Trend #. DVT on Eliquis #. Congestive heart failure, unspecified ejection fraction: Compensated during admission. Continue home diuretics #. Restless leg syndrome: On ropinirole Med rec pending DVT prophylaxis: On Eliquis NPO DNR/DNI Admit as inpatient and will require two night minimum hospital stay for IV antibiotics Time Spent With Patient Time: Total time managing care of this patient today ____ minutes. Quality Stroke Does the patient have a stroke diagnosis?: No VTE Prior VTE?: No VTE Risk Level:: Medical - moderate - high VTE Device Contraindication: Treatment Not Indicated VTE Drug Contraindication: N/A - Med Ordered
[2022-11-15 23:54] LABS: Appearance Urine Cloudy; Color Urine Yellow; Glucose Urine UA >=1000 mg/dL (Negative); Leukocyte Esterase Urine Moderate (2+) (Negative); Nitrite Urine Negative (Negative); PH 5.5 (5.0-9.0); Specific Gravity - Urine 1.025 (1.005-1.025); UMIC TRIGGER UACC YES; Urine Blood Small (1+) (Negative); Urine Ketones 15 mg/dL (Negative); Urine Protein 30 (1+) mg/dL (Neg-Trace)
--- NOTE | 2022-11-16 00:11 | PC.NURSE ---
Nurse to nurse report given to SAULO Quiñones in ED overflow. Patient to be transported to bed 3 ED overflow by pbx technician.
[2022-11-16 00:15] LABS: Bacteria Urine 2+ (None Seen); Hyaline Casts Urine 0-2 /LPF (0-2); Squamous Epithelial Cell Urine >20 /HPF (0-2); UACC Culture Trigger YES; WBC Urine >50 /HPF (0-5)
[2022-11-16 00:35] VITALS: BP 134/55; PULSE 103; RESP 19; TEMP 37.1; O2SAT 93
[2022-11-16] MEDS: Ampicillin Sodium/Sulbactam Na 3 GM in 0.9 % Sodium Chloride 100 ML IV ×4 (00:56→18:08)
[2022-11-16 06:14] VITALS: BP 158/73; PULSE 95; RESP 17; TEMP 36.9; O2SAT 96
[2022-11-16 07:09] LABS: Hematocrit 42.1 % (37.0-47.0); Hemoglobin 13.6 g/dl (12.0-16.0); Mean Corpuscular HGB Conc 32.3 g/dl (31.0-35.0); Mean Corpuscular Hemoglobin 29.8 pg (27.0-33.0); Mean Corpuscular Volume 92.3 fL (80.0-98.0); Platelet Count 248 X10*3/uL (160-400); Red Blood Count 4.56 X10*6/uL (4.20-5.50); Red Cell Distribution Width 17.8 % (11.0-16.0); White Blood Count 9.9 X10*3/uL (4.8-10.8)
[2022-11-16 07:14] LABS: Anion Gap 20 (12-20); Blood Urea Nitrogen 22 mg/dL (9-16); Calcium 8.9 mg/dL (8.4-10.2); Carbon Dioxide 23 mmol/L (22-29); Chloride 106 mmol/L (96-108); Creatinine Clr Calc Pharmacy 45.1; Estimated Glomerular Filt Rate 56; Glucose Random 124 mg/dL (60-115); Sodium 145 mmol/L (135-145)
[2022-11-16] MEDS: Acetaminophen 325 MG TABLET 650 MG PO ×2 (07:17→18:14)
[2022-11-16] MEDS: 0.9 % Sodium Chloride Flush 3 ML SYRINGE IVFLUSH ×3 (07:18→20:56)
[2022-11-16 07:26] LABS: Troponin-I High Sensitivity 96.2 ng/L (<3.5-17.0)
[2022-11-16 07:54] LABS: Band Neutrophils Percent 15 % (3-5); Lymphocytes Absolute Manual 0.6 X10*3/uL (1.2-4.9); Lymphocytes Percent Manual 6 % (20-40); Metamyelocytes Absolute 0.1 X10*3/uL; Metamyelocytes Percent 1 %; Monocytes Absolute Manual 1.5 X10*3/uL (0.1-1.2); Monocytes Percent Manual 15 % (2-11); Neutrophils Absolute Manual 7.7 X10*3/uL (2.0-8.3); Neutrophils Percent Manual 63 % (45-73)
[2022-11-16 07:55] LABS: Large Platelet PRESENT; Platelet Estimate NORMAL (NORMAL); Platelet Morphology Comment NOTED; RBC Morphology NOTED
[2022-11-16 07:57] LABS: Burr Cells 3+ (>5) /OIF
--- NOTE | 2022-11-16 09:49 | MHC.EDTECH ---
Dr. Patel at bedside with patient and requested patient be given water. I gave Dr. Patel a cup of water and straw for the patient, and Dr. Patel is helping patient drink. Dr. Patel got gingerale for the patient and is at beside while patient drinks.
--- NOTE | 2022-11-16 10:15 | PC.NURSE ---
patient alert, confused. needing frequent reminders to stay in bed. bed alarm and red socks in place for safety
--- NOTE | 2022-11-16 10:25 | PC.NURSE ---
speech therapy at the bedside
--- NOTE | 2022-11-16 10:29 | MHC.EDTECH ---
Patient requested to get up to use bathroom and patient given commode. This tech helped patient to commode, get cleaned up and back into bed. Purewick discontinued.
[2022-11-16] MEDS: Apixaban 5 MG TABLET PO ×2 (10:44→20:54)
[2022-11-16] MEDS: Metoprolol Succinate ER 25 MG TAB.ER.24H PO (10:44)
--- NOTE | 2022-11-16 11:17 | HO.PM.IMPN ---
Subjective Subjective Date of Service: 11/16/22 Interval History: awake alert asking for water, and her medication Requip, feeling hungry denies nausea, vomiting, abdominal pain, denies cough or sputum production, denies fever chills, patient was brought in due to nausea, vomiting, lethargy and confusion, at present patient awake alert to place and person. Review of Systems Review of Systems: Yes all other systems are reviewed and are negative Physical Exam Vital Signs: Vital Signs: Last Vital Signs Temp 98.4 F 11/16/22 06:14 Pulse 95 11/16/22 06:14 Resp 17 11/16/22 06:14 BP 158/73 H 11/16/22 06:14 Pulse Ox 96 11/16/22 06:14 O2 Del Method Nasal Cannula 11/16/22 06:14 O2 Flow Rate 2 11/16/22 06:14 BMI result Body Mass Index 34.5 Const: Other: General restless awake alert, in no acute distress. Neck supple no JVD. CVS regular rate rhythm, Respiratory lungs bilateral basilar rhonchi, no respiratory distress, no wheeze Gastrointestinal abdomen soft, nontender, bowel sounds audible, no guarding , no rigidity. Extremities no edema. Neuro nonfocal ,moving all 4 extremity speech clear. Skin no rash psych appropriate affect Objective Data Active Medications Acetaminophen (Acetaminophen 325 Mg Tablet) 650 mg PO Q6H PRN PRN Reason: Pain, Mild (Pain Scale 1-3) Last Admin: 11/16/22 07:17 Dose: 650 mg Documented By: DARLENE Acetaminophen (Acetaminophen Supp 650 Mg Supp.Rect) 650 mg TN Q6H PRN PRN Reason: Pain, Mild (Pain Scale 1-3) Apixaban (Apixaban 5 Mg Tablet) 5 mg PO BID [facility] Last Admin: 11/16/22 10:44 Dose: 5 mg Documented By: DARLENE Atorvastatin Calcium (Atorvastatin Calcium 40 Mg Tablet) 40 mg PO BEDTIME [facility] Empagliflozin (Empagliflozin 10 Mg Tablet) 10 mg PO DAILY [facility] Gabapentin (Gabapentin 400 Mg Capsule) 800 mg PO TID@1200,1800,2100 [facility] Ampicillin Sodium/Sulbactam (Sodium 3 gm/ Sodium Chloride) 100 mls @ 200 mls/hr IV Q6H [facility] Last Infusion: 11/16/22 06:49 Dose: 0 mls/hr Documented By: ION Melatonin (Melatonin 3 Mg Tablet) 6 mg PO BEDTIME PRN PRN Reason: Insomnia Metoprolol Succinate (Metoprolol Succinate Er 25 Mg Tab.Er.24h) 25 mg PO DAILY [facility]; Protocol Last Admin: 11/16/22 10:44 Dose: 25 mg Documented By: DARLENE Nitroglycerin (Nitroglycerin 0.4 Mg Tab.Subl) 0.4 mg SUBLINGUAL Q5M PRN PRN Reason: chest pain Non-Formulary Medication (Budesonide) 9 mg PO DAILY [facility] Ondansetron HCl (Ondansetron Hcl 4 Mg/2 Ml Vial) 4 mg IVPUSH Q8H PRN PRN Reason: Nausea and Vomiting Pharmacy Consult (Consult Rx Perform Med Rec) 1 each MISCELLANE ONCE PRN PRN Reason: Consult order Ropinirole HCl (Ropinirole Hcl 0.5 Mg Tablet) 0.5 mg PO BID@1200,1800 [facility] Ropinirole HCl (Ropinirole Hcl 1 Mg Tablet) 1 mg PO BEDTIME [facility] Sodium Chloride (0.9 % Sodium Chloride Flush 3 Ml Syringe) 3 ml IVFLUSH QSHIFT [facility] Last Admin: 11/16/22 07:18 Dose: 3 ml Documented By: DARLENE Spironolactone (Spironolactone 25 Mg Tablet) 25 mg PO DAILY@0900,1800 [facility]; Protocol Thiamine HCl (Thiamine Hcl 100 Mg Tablet) 100 mg PO DAILY@1200 [facility] Labs 11/16/22 06:15 11/16/22 06:15 Labs: Laboratory Results - last 24 hr 11/15/22 11/15/22 11/15/22 18:25 18:25 18:26 MCV 92.1 MCH 29.6 MCHC 32.1 RDW 17.8 H Plt Count 272 MPV 9.3 L Immature Gran % (Auto) 1.3 H Neut % (Auto) 75.6 H Lymph % (Auto) 6.3 L [place] % (Auto) 16.1 H Eos % (Auto) 0.1 Baso % (Auto) 0.6 Lymph # (Auto) 0.6 L [place] # (Auto) 1.5 H Eos # (Auto) 0.0 Baso # (Auto) 0.1 Abs Immat Gran (auto) 0.12 H Absolute Neuts (auto) 7.1 Absolute Nucleated RBC 0.000 Nucleated RBC % (auto) 0.0 Neutrophils % (Manual) Band Neutrophils % Lymphocytes % (Manual) Monocytes % (Manual) Metamyelocytes % Abs Neuts (Manual) Lymphocytes # (Manual) Monocytes # (Manual) Metamyelocytes # Platelet Estimate Large Platelets Plt Morphology Comment RBC Morphology Melita Cells PT INR APTT Anion Gap Estim Creat Clear Calc Estimated GFR Random Glucose Lactic Acid 1.8 Calcium Magnesium Total Bilirubin AST ALT Alkaline Phosphatase Troponin I High Sens B-Natriuretic Peptide Total Protein Albumin Lipase Urine Color Urine Appearance Urine pH Ur Specific Crete Urine Protein Urine Glucose (UA) Urine Ketones Urine Blood Urine Nitrite Ur Leukocyte Esterase Urine RBC Urine WBC Ur Squamous Epith Cells Urine Bacteria Hyaline Casts Influenza Type A (PCR) NEGATIVE Influenza Type B (PCR) NEGATIVE RSV RNA Qual (PCR) NEGATIVE SARS-CoV-2 RNA (RT-PCR) NEGATIVE 11/15/22 11/15/22 11/15/22 18:26 18:26 18:26 MCV MCH MCHC RDW Plt Count MPV Immature Gran % (Auto) Neut % (Auto) Lymph % (Auto) [place] % (Auto) Eos % (Auto) Baso % (Auto) Lymph # (Auto) [place] # (Auto) Eos # (Auto) Baso # (Auto) Abs Immat Gran (auto) Absolute Neuts (auto) Absolute Nucleated RBC Nucleated RBC % (auto) Neutrophils % (Manual) Band Neutrophils % Lymphocytes % (Manual) Monocytes % (Manual) Metamyelocytes % Abs Neuts (Manual) Lymphocytes # (Manual) Monocytes # (Manual) Metamyelocytes # Platelet Estimate Large Platelets Plt Morphology Comment RBC Morphology [place] Cells PT 15.2 H INR 1.3 H APTT 35.6 Anion Gap 21 H Estim Creat Clear Calc 37.6 Estimated GFR 45 Random Glucose 131 H Lactic Acid Calcium 9.4 Magnesium 1.9 Total Bilirubin 1.8 H AST 21 ALT 17 Alkaline Phosphatase 69 Troponin I High Sens 22.2 H D B-Natriuretic Peptide Total Protein 6.5 Albumin 3.7 Lipase 16 Urine Color Urine Appearance Urine pH Ur Specific [place]te Urine Protein Urine Glucose (UA) Urine Ketones Urine Blood Urine Nitrite Ur Leukocyte Esterase Urine RBC Urine WBC Ur Squamous Epith Cells Urine Bacteria Hyaline Casts Influenza Type A (PCR) Influenza Type B (PCR) RSV RNA Qual (PCR) SARS-CoV-2 RNA (RT-PCR) 11/15/22 11/15/2223 18:26 20:43 23:46 MCV MCH MCHC RDW Plt Count MPV Immature Gran % (Auto) Neut % (Auto) Lymph % (Auto) [place] % (Auto) Eos % (Auto) Baso % (Auto) Lymph # (Auto) [place] # (Auto) Eos # (Auto) Baso # (Auto) Abs Immat Gran (auto) Absolute Neuts (auto) Absolute Nucleated RBC Nucleated RBC % (auto) Neutrophils % (Manual) Band Neutrophils % Lymphocytes % (Manual) Monocytes % (Manual) Metamyelocytes % Abs Neuts (Manual) Lymphocytes # (Manual) Monocytes # (Manual) Metamyelocytes # Platelet Estimate Large Platelets Plt Morphology Comment RBC Morphology [place] Cells PT INR APTT Anion Gap Estim Creat Clear Calc Estimated GFR Random Glucose Lactic Acid Calcium Magnesium Total Bilirubin AST ALT Alkaline Phosphatase Troponin I High Sens 19.5 H B-Natriuretic Peptide 51 Total Protein Albumin Lipase Urine Color Yellow Urine Appearance Cloudy Urine pH 5.5 Ur Specific [place] 1.025 Urine Protein 30 (1+) H Urine Glucose (UA) >=1000 H Urine Ketones 15 Urine Blood Small (1+) H Urine Nitrite Negative Ur Leukocyte Esterase Moderate (2+) H Urine RBC 3-5 H Urine WBC >50 H Ur Squamous Epith Cells >20 Urine Bacteria 2+ Hyaline Casts 0-2 Influenza Type A (PCR) Influenza Type B (PCR) RSV RNA Qual (PCR) SARS-CoV-2 RNA (RT-PCR) 11/16/22 11/16/22 11/16/22 06:15 06:15 06:15 MCV 92.3 MCH 29.8 MCHC 32.3 RDW 17.8 H Plt Count 248 MPV 10.0 Immature Gran % (Auto) Cancelled Neut % (Auto) Cancelled Lymph % (Auto) Cancelled [place] % (Auto) Cancelled Eos % (Auto) Cancelled Baso % (Auto) Cancelled Lymph # (Auto) Cancelled [place] # (Auto) Cancelled Eos # (Auto) Cancelled Baso # (Auto) Cancelled Abs Immat Gran (auto) Cancelled Absolute Neuts (auto) Cancelled Absolute Nucleated RBC 0.000 Nucleated RBC % (auto) 0.0 Neutrophils % (Manual) 63 Band Neutrophils % 15 H Lymphocytes % (Manual) 6 L Monocytes % (Manual) 15 H Metamyelocytes % 1 Abs Neuts (Manual) 7.7 Lymphocytes # (Manual) 0.6 L Monocytes # (Manual) 1.5 H Metamyelocytes # 0.1 Platelet Estimate NORMAL Large Platelets PRESENT Plt Morphology Comment NOTED RBC Morphology NOTED [place] Cells 3+ (>5) PT INR APTT Anion Gap 20 Estim Creat Clear Calc 45.1 Estimated GFR 56 Random Glucose 124 H Lactic Acid Calcium 8.9 Magnesium Total Bilirubin AST ALT Alkaline Phosphatase Troponin I High Sens 96.2 H* D B-Natriuretic Peptide Total Protein Albumin Lipase Urine Color Urine Appearance Urine pH Ur Specific [place]te Urine Protein Urine Glucose (UA) Urine Ketones Urine Blood Urine Nitrite Ur Leukocyte Esterase Urine RBC Urine WBC Ur Squamous Epith Cells Urine Bacteria Hyaline Casts Influenza Type A (PCR) Influenza Type B (PCR) RSV RNA Qual (PCR) SARS-CoV-2 RNA (RT-PCR) Assessment and Plan (1) Pneumonia: Status: Acute Plan 82-year-old female with pertinent history of ulcerative colitis, DVT on Eliquis, congestive heart failure unspecified ejection fraction, restless leg syndrome who was brought to the emergency department for evaluation lethargy and confusion. #.? Acute hypoxemic respiratory failure secondary to pneumonia: ?aspiration.? continue IV Unasyn day 2, follow-up blood cultures, patient is afebrile normal WBC count patient not on home oxygen will gradually wean , supportive care with cough medication analgesics #.? Acute metabolic encephalopathy in the setting of above.? seem to be at baseline, seen by speech therapy patient cleared for regular diet and clear liquids #.? Elevated troponin, likely type 2 in the setting of increased demand, troponin bump to 96.2 patient denies chest discomfort, EKG showed no ischemia.?repeat trop if trending up [place] echo. #.? history of DVT on Eliquis #.? Congestive heart failure, unspecified ejection fraction:? Compensated ,Continue home diuretics #.? Restless leg syndrome: On ropinirole Med rec completed DVT prophylaxis:? On Eliquis DNR/DNI patient will need continued inpatient stay for IV antibiotics Time Spent With Patient Time: Total time managing care of this patient today ____ minutes. Quality Stroke Does the patient have a stroke diagnosis?: No VTE Prior VTE?: No VTE Risk Level:: Medical - moderate - high VTE Device Contraindication: Treatment Not Indicated VTE Drug Contraindication: N/A - Med Ordered
--- NOTE | 2022-11-16 11:43 | PC.NURSE ---
pharmacy called for requip
--- NOTE | 2022-11-16 11:43 | MHC.EDTECH ---
Patient assisted back to bed from recliner.
[2022-11-16] MEDS: Thiamine HCL 100 MG TABLET PO (12:23)
[2022-11-16] MEDS: Gabapentin 400 MG CAPSULE 800 MG PO ×2 (12:23→18:07)
[2022-11-16 13:01] VITALS: BMI 35.5
[2022-11-16 13:05] VITALS: BP 148/77; PULSE 83; RESP 20; TEMP 36.6; O2SAT 94
--- NOTE | 2022-11-16 13:17 | MHC.CM.PN ---
CM met with Patient at bedside and addressed IMM with her, providing her with the original and placing a copy on the chart. Patient lives in a house with her Son/Alternate HCP/Sg (Daughter/Yessy is first HCP) and she uses a walker to assist with mobility. Patient required no home services [employer]; home self care vs new VNA is the tentative plan. CM has initiated and will follow for dc planning. PCP is Dr. Mick Tatum and Patient is Humphrey kauffman'd x3.
[2022-11-16] MEDS: rOPINIRole HCL 0.5 MG TABLET PO ×2 (13:22→18:50)
[2022-11-16 14:04] LABS: Troponin-I High Sensitivity 110.1 ng/L (<3.5-17.0)
[2022-11-16 15:31] VITALS: BP 118/64; PULSE 62; RESP 18; TEMP 37; O2SAT 92
[2022-11-16 18:54] VITALS: BP 98/46; PULSE 86; RESP 18; O2SAT 94
[2022-11-16 20:53] VITALS: BP 109/64; PULSE 87; RESP 18; O2SAT 94
[2022-11-16] MEDS: rOPINIRole HCL 1 MG TABLET PO (20:54)
[2022-11-16] MEDS: Atorvastatin Calcium 40 MG TABLET PO (20:54)
[2022-11-17] MEDS: Ampicillin Sodium/Sulbactam Na 3 GM in 0.9 % Sodium Chloride 100 ML IV ×4 (00:36→17:49)
[2022-11-17 04:00] VITALS: BP 109/42; PULSE 91; RESP 18; TEMP 37.7; O2SAT 92
[2022-11-17] MEDS: Acetaminophen 325 MG TABLET 650 MG PO (04:15)
--- NOTE | 2022-11-17 07:00 | CA_ITS ---
Transthoracic Echocardiogram Patient (Last, First, Middle): Maris Nash R Gender: Female Date of : 1940 Age: 82 Procedure Date: 11/17/2022 Procedure Type: Transthoracic Echocardiogram Location: [facility] Height: 157.48 cm Weight: 88. kg BSA: 1.89 m2 Heart Rate: 85 bpm BP: 148 / 77 mmHg Electronics Test Engineer: Referring MD: Mirta Patel MD Symptoms: elevated trop Study Quality: Adequate w contrast ECG Rhythm: Sinus Conclusions: - Normal left ventricular size and systolic function. There is mildly increased left ventricular wall thickness. The visually estimated ejection fraction is between 55-60%. - E/E prime ratio is >15, consistent with elevated filling pressures. - Normal right ventricular cavity size and systolic function. - The right ventricular systolic pressure is 41 mmHg. Normal right atrial pressure. Mild pulmonary hypertension is present. Findings Procedure Information Contrast agent, definity, is being given per protocol without apparent complications. Left Ventricle Normal left ventricular size and systolic function. There is mildly increased left ventricular wall thickness. The visually estimated ejection fraction is between 55-60%. There is no evidence of regional wall motion abnormalities. Abnormal diastolic function is noted. Spectral Doppler is indicative of an impaired relaxation filling pattern. E/E prime ratio is >15, consistent with elevated filling pressures. Right Ventricle Normal right ventricular cavity size and systolic function. Atria The left atrium is normal in size. Aortic Valve Normal aortic valve structure and function. There is no aortic valve stenosis. There is no aortic valve regurgitation. Mitral Valve Normal mitral valve structure and function. There is no mitral valve regurgitation. There is no mitral valve stenosis. Pulmonic Valve Normal pulmonic valve structure and function. There is no pulmonic valve regurgitation. Tricuspid Valve Normal tricuspid valve structure and function. There is no tricuspid valve regurgitation. The right ventricular systolic pressure is 41 mmHg. Normal right atrial pressure. Mild pulmonary hypertension is present. Great Vessels All visible segments of the aorta are normal in size. Venous The inferior vena cava is normal in size and collapses greater than 50% with inspiration. Pericardium/Pleural Prominent epicardial adipose tissue noted. There is no evidence of pericardial effusion. Prior Study Comparison No prior study available for comparison. Measurements 2D Linear Measurements IVSd: 1.03 0.6-0.9/0.6-1.0 cm LVIDd: 4.23 3.9-5.3/4.2-5.9 cm LVIDd Index: 2.24 2.4-3.2/2.2-3.1 cm/m2 LVIDs: 2.95 2.0-3.6 cm LVPWd: 1.05 0.7-1.1 cm LA Diam: 2.70 2.7-3.8/3.0-4.0 cm LAIDs Index: 1.43 1.5-2.3 cm/m2 LV Mass: 182.57 67-162/88-224 g LV Mass Index: 96.60 43-95/49-115 g/m2 LVOT Diam: 2.10 3.0+(-)1.3 cm Mitral Valve MV Pk E: 0.95 MV PK A: 1.26 MV Decel Time: 228.00 E/A: 0.80 E'Lateral: 5.66 E'Medial: 6.74 E/E' Med: 14.10 E/E' Lat: 16.70 PHT: 67.00 MVA PHT: 3.28 Decel [place]: 4.16 Aortic Valve AoV Pk [place]: 1.81 AoV Mn [place]: 1.12 AoV VTI: 0.41 AoV Pk Grad: 13.00 Aov Mn Grad: 6.00 HECTOR Cont.VTI: 1.75 LVOT LVOT Pk [place]: 0.97 LVOT Mn [place]: 0.63 LVOT VTI: 0.21 LVOT Pk Grad: 4.00 LVOT Mn Grad: 2.00 LVOT Diam: 2.10 LVOT Area: 3.46 Diastolic Function MV Pk E: 0.95 MV Pk A: 1.26 E/A: 0.80 E'Medial: 6.74 E/E' Med: 14.10 E' Laterial: 5.66 E/E' Lat: 16.70 Right Ventricle TAPSE (mm): 26.90 TVS' [place]: 16.00 Tricuspid Valve TR Pk [place]: 2.88 TR Pk Grad: 33.00 RA Press: 8.00 RVSP: 41.00 Great Vessels Aorta Sinus of Valsalva: 3.30 2.0-3.5 cm Ao Asc: 3.00 2.1-3.4 cm Pulmonary Valve PV Pk [place]: 1.11 Peak PV Grad: 5.00 Updated in Other Vendor System with Status of Final Eran Lincoln MD electronically signed on 11/17/2022 1:00:04 PM with status of Final
[2022-11-17 07:23] LABS: Glucose, Whole Blood 84 mg/dL (60-115)
[2022-11-17 07:46] VITALS: BP 110/70; PULSE 85; RESP 20; TEMP 36.1; O2SAT 93
[2022-11-17] MEDS: Empagliflozin 10 MG TABLET PO (09:45)
[2022-11-17] MEDS: Metoprolol Succinate ER 25 MG TAB.ER.24H PO (09:45)
[2022-11-17] MEDS: 0.9 % Sodium Chloride Flush 3 ML SYRINGE IVFLUSH ×2 (09:46→17:50)
[2022-11-17] MEDS: Apixaban 5 MG TABLET PO ×2 (09:46→20:56)
[2022-11-17] MEDS: Spironolactone 25 MG TABLET PO ×2 (09:52→17:52)
[2022-11-17 11:27] LABS: Glucose, Whole Blood 110 mg/dL (60-115)
--- NOTE | 2022-11-17 11:45 | HO.PM.IMPN ---
Subjective Subjective Date of Service: 11/17/22 Interval History: Feeling better this morning awake alert to time place and person lives at home with son, denies chest pain, no shortness of breath but was feeling short of breath for 1 week prior to presentation denies fever chills, has chronic right sciatica pain with radiation to right leg complaining of bilateral eye redness and drainage, tolerating diet denies nausea vomiting abdominal pain. Physical Exam Vital Signs: Vital Signs: Last Vital Signs Temp 97.0 F 11/17/22 07:46 Pulse 85 11/17/22 07:46 Resp 20 11/17/22 07:46 BP 110/70 11/17/22 07:46 Pulse Ox 93 11/17/22 07:46 O2 Del Method Nasal Cannula 11/17/22 07:46 O2 Flow Rate 1 11/17/22 07:46 BMI result Body Mass Index 35.5 Const: Other: General? awake yesica rt x 3, in no acut e distress.? Neck supple no JVD. CVS ? regular rate rhy thm, Respiratory l ungs? bilateral ba silar rhonchi, no respiratory distre ss, no wheeze Marybeth rointestinal abdom en soft, nontender , bowel sounds aud ible, no guarding , no rigidity. Ext remities no edema. Neuro nonfocal ,m oving all 4 extrem ity speech clear. Skin no rash psych appropriate affec t Objective Data Active Medications Acetaminophen (Acetaminophen 325 Mg Tablet) 650 mg PO Q6H PRN PRN Reason: Pain, Mild (Pain Scale 1-3) Last Admin: 11/17/22 04:15 Dose: 650 mg Documented By: DARRIUS Acetaminophen (Acetaminophen Supp 650 Mg Supp.Rect) 650 mg [place] Q6H PRN PRN Reason: Pain, Mild (Pain Scale 1-3) Apixaban (Apixaban 5 Mg Tablet) 5 mg PO BID [facility] Last Admin: 11/17/22 09:46 Dose: 5 mg Documented By: LOAN Atorvastatin Calcium (Atorvastatin Calcium 40 Mg Tablet) 40 mg PO BEDTIME [facility] Last Admin: 11/16/22 20:54 Dose: 40 mg Documented By: KATTY Empagliflozin (Empagliflozin 10 Mg Tablet) 10 mg PO DAILY [facility] Last Admin: 11/17/22 09:45 Dose: 10 mg Documented By: LOAN Gabapentin (Gabapentin 400 Mg Capsule) 800 mg PO TID@1200,1800,2100 [facility] Last Admin: 11/16/22 20:55 Dose: Not Given Documented By: KATTY Non-Admin Reason: Decreased Blood Pressure Ampicillin Sodium/Sulbactam (Sodium 3 gm/ Sodium Chloride) 100 mls @ 200 mls/hr IV Q6H [facility] Last Infusion: 11/17/22 05:32 Dose: 0 mls/hr Documented By: DARRIUS Melatonin (Melatonin 3 Mg Tablet) 6 mg PO BEDTIME PRN PRN Reason: Insomnia Metoprolol Succinate (Metoprolol Succinate Er 25 Mg Tab.Er.24h) 25 mg PO DAILY [facility]; Protocol Last Admin: 11/17/22 09:45 Dose: 25 mg Documented By: LOAN Nitroglycerin (Nitroglycerin 0.4 Mg Tab.Subl) 0.4 mg SUBLINGUAL Q5M PRN PRN Reason: chest pain Non-Formulary Medication (Budesonide) 9 mg PO DAILY [facility] Ondansetron HCl (Ondansetron Hcl 4 Mg/2 Ml Vial) 4 mg IVPUSH Q8H PRN PRN Reason: Nausea and Vomiting Pharmacy Consult (Consult Rx Perform Med Rec) 1 each MISCELLANE ONCE PRN PRN Reason: Consult order Ropinirole HCl (Ropinirole Hcl 0.5 Mg Tablet) 0.5 mg PO BID@1200,1800 [facility] Last Admin: 11/16/22 18:50 Dose: 0.5 mg Documented By: KATTY Ropinirole HCl (Ropinirole Hcl 1 Mg Tablet) 1 mg PO BEDTIME [facility] Last Admin: 11/16/22 20:54 Dose: 1 mg Documented By: KATTY Sodium Chloride (0.9 % Sodium Chloride Flush 3 Ml Syringe) [address] [facility] Last Admin: 11/17/22 09:46 Dose: 3 ml Documented By: LOAN Spironolactone (Spironolactone 25 Mg Tablet) 25 mg PO DAILY@0900,1800 [facility]; Protocol Last Admin: 11/17/22 09:52 Dose: 25 mg Documented By: LOAN Thiamine HCl (Thiamine Hcl 100 Mg Tablet) 100 mg PO DAILY@1200 [facility] Last Admin: 11/16/22 12:23 Dose: 100 mg Documented By: DARLENE Labs 11/16/22 06:15 11/16/22 06:15 Labs: Laboratory Results - last 24 hr 11/16/22 11/17/22 11/17/22 13:15 07:20 11:23 POC Glucose 84 110 Troponin I High Sens 110.1 H* Microbiology Microbiology Results: Microbiology 11/16/22 Unknown Urine Culture - Final Urine clean catch - Clean Catch Midstream 11/15/22 18:26 Blood Culture - Preliminary Blood - Venous No growth after 24 hours. 11/15/22 18:26 Blood Culture - Preliminary Blood - Venous No growth after 24 hours. Assessment and Plan (1) Pneumonia: Status: Acute Plan 82-year-old female with pertinent history of ulcerative colitis, DVT on Eliquis, congestive heart failure unspecified ejection fraction, restless leg syndrome who was brought to the emergency department for evaluation lethargy and confusion. #.? Acute hypoxemic respiratory failure secondary to pneumonia: ?aspiration.? continue IV Unasyn day3, follow-up blood cultures neg x 24 h, patient is afebrile, normal WBC count patient not on home oxygen will gradually wean , supportive care with cough medication and analgesics Will obtain PT due to weakness and difficulty in ambulation with history of right scaitica. #.? Acute metabolic encephalopathy in the setting of above.? Resolved tolerating diet . #.? Elevated troponin, likely type 2 in the setting of increased demand, troponin bump from 96.2 to 110 ,patient denies chest discomfort, EKG showed no ischemia. Follow echo, patient denies symptoms of chest pain, no diaphoresis prior to admission. #.? history of DVT cont Eliquis #.? Congestive heart failure, unspecified ejection fraction:? Compensated ,Continue home diuretics, nitrates on hold soft blood pressures. #.? Restless leg syndrome: On ropinirole DVT prophylaxis:? On Eliquis DNR/DNI patient will need continued inpatient stay for IV antibiotics and workup for elevated troponin Time Spent With Patient Time: Total time managing care of this patient today ____ minutes. Quality Stroke Does the patient have a stroke diagnosis?: No VTE Prior VTE?: No VTE Risk Level:: Medical - moderate - high VTE Device Contraindication: Treatment Not Indicated VTE Drug Contraindication: N/A - Med Ordered
[2022-11-17] MEDS: Gabapentin 400 MG CAPSULE 800 MG PO ×3 (12:32→20:56)
[2022-11-17] MEDS: rOPINIRole HCL 0.5 MG TABLET PO ×2 (12:32→17:50)
[2022-11-17] MEDS: Thiamine HCL 100 MG TABLET PO (12:32)
--- NOTE | 2022-11-17 13:20 | MHC.CM.PN ---
PT is recommending home PT; CM will follow.
[2022-11-17 13:25] VITALS: BP 110/70; PULSE 85; O2SAT 96
[2022-11-17 15:18] VITALS: BP 118/55; PULSE 84; RESP 17; TEMP 37.7; O2SAT 93
[2022-11-17 15:49] LABS: Glucose, Whole Blood 86 mg/dL (60-115)
[2022-11-17 19:22] VITALS: BP 117/55; PULSE 84; RESP 17; TEMP 37.6; O2SAT 91
[2022-11-17] MEDS: Atorvastatin Calcium 40 MG TABLET PO (20:56)
[2022-11-17] MEDS: rOPINIRole HCL 1 MG TABLET PO (20:56)
[2022-11-18] MEDS: Ampicillin Sodium/Sulbactam Na 3 GM in 0.9 % Sodium Chloride 100 ML IV ×3 (00:31→12:28)
[2022-11-18] MEDS: 0.9 % Sodium Chloride Flush 3 ML SYRINGE IVFLUSH ×4 (00:31→20:09)
[2022-11-18 03:31] VITALS: BP 117/56; PULSE 72; RESP 20; TEMP 37.3; O2SAT 94
[2022-11-18 07:41] VITALS: BP 124/60; PULSE 76; RESP 20; TEMP 36.8; O2SAT 95
[2022-11-18] MEDS: Acetaminophen 325 MG TABLET 650 MG PO (09:41)
[2022-11-18] MEDS: Torsemide 20 MG TABLET 40 MG PO (09:41)
[2022-11-18] MEDS: Spironolactone 25 MG TABLET PO ×2 (09:42→18:25)
[2022-11-18] MEDS: Metoprolol Succinate ER 25 MG TAB.ER.24H PO (09:42)
[2022-11-18] MEDS: Empagliflozin 10 MG TABLET PO (09:42)
[2022-11-18] MEDS: Apixaban 5 MG TABLET PO ×2 (09:42→20:40)
[2022-11-18] MEDS: Thiamine HCL 100 MG TABLET PO (12:25)
[2022-11-18] MEDS: Gabapentin 400 MG CAPSULE 800 MG PO ×3 (12:25→20:39)
[2022-11-18] MEDS: rOPINIRole HCL 0.5 MG TABLET PO ×2 (12:25→18:25)
--- NOTE | 2022-11-18 13:13 | HO.PM.IMPN ---
Subjective Subjective Date of Service: 11/18/22 Interval History: Feeling tired this morning, with mild intermittent cough, denies fever chills on 1 L of oxygen finger oximetry 95% no other acute issues overnight evaluated by Physical therapy they recommend home PT, Tolerating diet with no nausea, no vomiting, no abdominal pain or diarrhea. Review of Systems Review of Systems: Yes all other systems are reviewed and are negative Physical Exam Vital Signs: Vital Signs: Last Vital Signs Temp 98.2 F 11/18/22 07:41 Pulse 76 11/18/22 07:41 Resp 20 11/18/22 07:41 BP 124/60 11/18/22 07:41 Pulse Ox 95 11/18/22 07:41 O2 Del Method Nasal Cannula 11/18/22 07:41 O2 Flow Rate 2 11/18/22 07:41 BMI result Body Mass Index 35.5 Const: Other: General? restless awake alert, in no acute distress.? Neck supple no JVD. CVS? regular rate rhythm, Respiratory lungs? coarse breath sounds left base, no respiratory distress, no wheeze Gastrointestinal abdomen soft, non tender, bowel sounds audible, no guarding , no rigidity. Extremities no edema. Neuro nonfocal ,moving all 4 extremity speech clear. Skin no rash psych appropriate affect Objective Data Active Medications Acetaminophen (Acetaminophen 325 Mg Tablet) 650 mg PO Q6H PRN PRN Reason: Pain, Mild (Pain Scale 1-3) Last Admin: 11/18/22 09:41 Dose: 650 mg Documented By: LOAN Acetaminophen (Acetaminophen Supp 650 Mg Supp.Rect) 650 mg [place] Q6H PRN PRN Reason: Pain, Mild (Pain Scale 1-3) Apixaban (Apixaban 5 Mg Tablet) 5 mg PO BID [facility] Last Admin: 11/18/22 09:42 Dose: 5 mg Documented By: LOAN Atorvastatin Calcium (Atorvastatin Calcium 40 Mg Tablet) 40 mg PO BEDTIME [facility] Last Admin: 11/17/22 20:56 Dose: 40 mg Documented By: NORMA Empagliflozin (Empagliflozin 10 Mg Tablet) 10 mg PO DAILY [facility] Last Admin: 11/18/22 09:42 Dose: 10 mg Documented By: LOAN Gabapentin (Gabapentin 400 Mg Capsule) 800 mg PO TID@1200,1800,2100 [facility] Last Admin: 11/18/22 12:25 Dose: 800 mg Documented By: LOAN Guaifenesin/Dextromethorphan (Guaifenesin Dm 100/10/5 Ml 5 Ml Syrup) 10 ml PO TID [facility] Last Admin: 11/18/22 11:29 Dose: Not Given Documented By: LOAN Non-Admin Reason: pt sleeping and resting comfortably Ampicillin Sodium/Sulbactam (Sodium 3 gm/ Sodium Chloride) 100 mls @ 200 mls/hr IV Q6H [facility] Last Admin: 11/18/22 12:28 Dose: 200 mls/hr Documented By: LOAN Melatonin (Melatonin 3 Mg Tablet) 6 mg PO BEDTIME PRN PRN Reason: Insomnia Metoprolol Succinate (Metoprolol Succinate Er 25 Mg Tab.Er.24h) 25 mg PO DAILY [facility]; Protocol Last Admin: 11/18/22 09:42 Dose: 25 mg Documented By: LOAN Nitroglycerin (Nitroglycerin 0.4 Mg Tab.Subl) 0.4 mg SUBLINGUAL Q5M PRN PRN Reason: chest pain Non-Formulary Medication (Budesonide) 9 mg PO DAILY [facility] Ondansetron HCl (Ondansetron Hcl 4 Mg/2 Ml Vial) 4 mg IVPUSH Q8H PRN PRN Reason: Nausea and Vomiting Pharmacy Consult (Consult Rx Perform Med Rec) 1 each MISCELLANE ONCE PRN PRN Reason: Consult order Ropinirole HCl (Ropinirole Hcl 0.5 Mg Tablet) 0.5 mg PO BID@1200,1800 [facility] Last Admin: 11/18/22 12:25 Dose: 0.5 mg Documented By: LOAN Ropinirole HCl (Ropinirole Hcl 1 Mg Tablet) 1 mg PO BEDTIME [facility] Last Admin: 11/17/22 20:56 Dose: 1 mg Documented By: NORMA Sodium Chloride (0.9 % Sodium Chloride Flush 3 Ml Syringe) 3 ml IVFLUSH QSHIFT [facility] Last Admin: 11/18/22 09:42 Dose: 3 ml Documented By: LOAN Spironolactone (Spironolactone 25 Mg Tablet) 25 mg PO DAILY@0900,1800 [facility]; Protocol Last Admin: 11/18/22 09:42 Dose: 25 mg Documented By: LOAN Thiamine HCl (Thiamine Hcl 100 Mg Tablet) 100 mg PO DAILY@1200 [facility] Last Admin: 11/18/22 12:25 Dose: 100 mg Documented By: LOAN Torsemide (Torsemide 20 Mg Tablet) 40 mg PO DAILY [facility]; Protocol Last Admin: 11/18/22 09:41 Dose: 40 mg Documented By: LOAN Labs 11/16/22 06:15 11/16/22 06:15 Labs: Laboratory Results - last 24 hr 11/17/22 15:20 POC Glucose 86 Microbiology Microbiology Results: Microbiology 11/15/22 18:26 Blood Culture - Preliminary Blood - Venous No growth after 48 hours. 11/15/22 18:26 Blood Culture - Preliminary Blood - Venous No growth after 48 hours. Assessment and Plan (1) Pneumonia: Status: Acute Plan 82-year-old female with pertinent history of ulcerative colitis, DVT on Eliquis, congestive heart failure unspecified ejection fraction, restless leg syndrome who was brought to the emergency department for evaluation lethargy and confusion. #.? Acute hypoxemic respiratory failure secondary to pneumonia: ?aspiration.? on IV Unasyn day 4, blood cultures neg x 48 h, patient is afebrile, normal WBC count, will transition to by mouth antibiotics patient not on home oxygen will gradually wean , supportive care with cough medication and analgesics, add incentive spirometry PT recommend home PT/recommend out of bed to chair possible discharge at a.m. #.? Acute metabolic encephalopathy in the setting of above.? Resolved tolerating diet . #.? Elevated troponin, likely type 2 in the setting of increased demand, troponin bump from 96.2 to 110 ,patient denies chest discomfort, EKG showed no ischemia. Follow echo, patient denies symptoms of chest pain, no diaphoresis prior to admission. #.? history of DVT cont Eliquis #.? Chronic diastolic Congestive heart failure, Compensated ,Continue home diuretics, nitrates on hold soft blood pressures, echo showed EF 55-60, no wall motion abnormality, abnormal diastolic function. #.? Restless leg syndrome: On ropinirole DVT prophylaxis:? On Eliquis DNR/DNI patient will need continued inpatient stay for IV antibiotics Time Spent With Patient Time: Total time managing care of this patient today ____ minutes. Quality Stroke Does the patient have a stroke diagnosis?: No VTE Prior VTE?: No VTE Risk Level:: Medical - moderate - high VTE Device Contraindication: Treatment Not Indicated VTE Drug Contraindication: N/A - Med Ordered
[2022-11-18] MEDS: Amoxicillin/Potassium Clav 500 MG TABLET PO ×2 (14:34→21:13)
[2022-11-18] MEDS: guaiFENesin DM 100/10/5 ML 5 ML SYRUP 10 ML PO ×2 (14:38→20:40)
[2022-11-18 15:12] VITALS: BP 121/58; PULSE 69; RESP 17; TEMP 36.8; O2SAT 97
[2022-11-18 15:45] LABS: Glucose, Whole Blood 127 mg/dL (60-115)
--- NOTE | 2022-11-18 17:58 | PC.NURSE ---
face to face report given to receiving RN, pt A&O, vitals stable and was brought down to [place] 3 @ 17:58 via bed.
[2022-11-18 18:26] VITALS: BP 120/59; PULSE 86
[2022-11-18 19:59] VITALS: BP 130/70; PULSE 79; RESP 20; TEMP 36.1; O2SAT 96
[2022-11-18] MEDS: Atorvastatin Calcium 40 MG TABLET PO (20:40)
[2022-11-18] MEDS: rOPINIRole HCL 1 MG TABLET PO (20:40)
[2022-11-19 03:18] VITALS: BP 129/62; PULSE 69; RESP 20; TEMP 37.2; O2SAT 93
[2022-11-19] MEDS: Amoxicillin/Potassium Clav 500 MG TABLET PO ×2 (05:10→13:07)
[2022-11-19] MEDS: Acetaminophen 325 MG TABLET 650 MG PO (05:26)
[2022-11-19 07:13] VITALS: BP 127/60; PULSE 72; RESP 20; TEMP 36.8; O2SAT 95
[2022-11-19] MEDS: Torsemide 20 MG TABLET 40 MG PO (07:32)
[2022-11-19] MEDS: Apixaban 5 MG TABLET PO (07:32)
[2022-11-19] MEDS: Metoprolol Succinate ER 25 MG TAB.ER.24H PO (07:33)
[2022-11-19] MEDS: Empagliflozin 10 MG TABLET PO (07:33)
[2022-11-19] MEDS: guaiFENesin DM 100/10/5 ML 5 ML SYRUP 10 ML PO (07:33)
[2022-11-19] MEDS: Spironolactone 25 MG TABLET PO (07:33)
[2022-11-19] MEDS: 0.9 % Sodium Chloride Flush 3 ML SYRINGE IVFLUSH (07:34)
[2022-11-19 08:06] LABS: Glucose, Whole Blood 122 mg/dL (60-115)
[2022-11-19 10:29] VITALS: PULSE 63; O2SAT 93
[2022-11-19 12:06] LABS: Glucose, Whole Blood 110 mg/dL (60-115)
--- NOTE | 2022-11-19 12:34 | MHC.CM.PN ---
PATIENT AWARE OF TODAY'S DC. IMM 11/19 IN CHART SON TO TRANSPORT HOME RN AWARE
[2022-11-19] MEDS: rOPINIRole HCL 0.5 MG TABLET PO (13:06)
[2022-11-19] MEDS: Thiamine HCL 100 MG TABLET PO (13:07)
[2022-11-19] MEDS: Gabapentin 400 MG CAPSULE 800 MG PO (13:07)
--- NOTE | 2022-11-22 14:21 | PM.DS ---
DS: Providers Provider Date of Service: 11/19/22 Date of admission: 11/15/22 23:28 Date of discharge: 11/19/22 Primary care physician: Mick Tatum MD Attending physician on discharge: Mirta Patel Discharging clinician: Mirta Patel DS: Diagnosis Discharge Diagnosis (1) Pneumonia: Status: Acute DS: Summary Hospital Course Hospital Course: Date of service on discharge:11/19/22 82-year-old female with pertinent history of ulcerative colitis, DVT on Eliquis, congestive heart failure unspecified ejection fraction, restless leg syndrome who was brought to the emergency department for evaluation lethargy and confusion.? Patient is a poor historian unable to provide history or review of systems.? History obtained from ER provider and chart review.? Patient felt weak and had nausea and nonbloody emesis on the day of presentation.? As per the family, patient is not acting herself.? Patient's body has felt warm but no documented temperature.? Patient also has a cough.? Unable to obtain review of systems. In the emergency department, patient was found to be hypoxemic and imaging concerning for pneumonia. Hospital course: patient came to the hospital admitted for acute hypoxemic respiratory failure secondary to pneumonia: Started on IV antibiotic Unasyn, blood cultures : Patient seems to be improved after words, WBC normal , no fever, acute metabolic encephalopathy sec to above resolved. Patient was seen by Physical therapy: Recommended to home with services read. Patient by discharged home with by mouth Augmentin, please complete the course of antibiotic. Repeat chest imaging in 3-4 weeks to see gradually she of pneumonia. Time Spent with Patient Time attestation: Total time managing care of this patient today ____ minutes. Discharge coordination time: Greater than 30 minutes Quality: Safe Use of Opioids Does Pt have an Active Cancer Diagnosis on the Problem List?: No Quality: Stroke Does the patient have a stroke diagnosis?: No Physical Exam Vital Signs: Vital Signs: Last Vital Signs Temp 98.2 F 11/19/22 07:13 Pulse 63 11/19/22 10:29 Resp 20 11/19/22 07:13 BP 127/60 11/19/22 07:13 Pulse Ox 93 11/19/22 10:29 O2 Del Method Nasal Cannula 11/19/22 10:29 O2 Flow Rate 1 11/19/22 10:29 BMI result Body Mass Index 35.5 General? restless awake alert, in no acute distress.? Neck supple no JVD. CVS? regular rate rhythm, Respiratory lungs? coarse breath sounds left base, no respiratory distress, no wheeze Gastrointestinal abdomen soft, non tender, bowel sounds audible, no guarding , no rigidity. Extremities no edema. Neuro nonfocal ,moving all 4 extremity speech clear. Skin no rash psych appropriate affect DS: Data Imaging Chest x-ray: Radiologist's impression: ITS Impressions Chest X-Ray 11/15/22 18:35 IMPRESSION: Although there are chronic appearing changes present, there is increased airspace disease at the left base and right upper lobe when compared to the prior study. Acute on chronic changes are difficult to assess, especially at the left base Chest CT 11/15/22 19:57 IMPRESSION: Patchy airspace disease more so in the dependent aspect of the right upper lobe and both lower lobes. Infectious or inflammatory causes would be favored. Discharge Plan Discharge Anticipated Discharge Date/Time: 11/19/22 11:34 Patient Disposition: Home Health Service Discharge Diagnosis: Acute hypoxic respiratory failure secondary to pneumonia Acute metabolic encephalopathy Referrals: Mick Tatum MD [Primary Care Provider] - 1 Week Discharge Medications: New dextromethorphan-guaifenesin 10-100 mg/5 mL Syrup 10 ml PO TID Qty: 250 0RF amoxicillin-pot clavulanate 500-125 mg Tablet 500 mg PO Q8H Qty: 5 0RF Continued ropinirole 0.5 mg tablet 0.5 mg PO BID@1200,1800 nitroglycerin 0.4 mg tablet, sublingual 0.4 mg sublingual Q5M MDD 1.2mg (3 doses) PRN (Reason: chest pain) Qty: 30 0RF Rx Instructions: do not exceed 3 doses per episode atorvastatin 40 mg tablet 1 tab PO BEDTIME torsemide 20 mg tablet 2 tab PO DAILY gabapentin 400 mg capsule 800 mg PO TID@1200,1800,2100 metoprolol succinate 25 mg tablet extended release 24 hr 1 tab PO DAILY isosorbide mononitrate 60 mg tablet extended release 24 hr 60 mg PO BID@0900,1800 azathioprine 50 mg tablet 100 mg PO DAILY@1800 ropinirole 0.5 mg tablet 1 mg PO BEDTIME Eliquis 5 mg tablet 5 mg PO BID spironolactone 25 mg tablet 25 mg PO DAILY@0900,1800 diclofenac sodium 1 % gel 1 g topical QID PRN (Reason: Pain) Jardiance 10 mg tablet 10 mg PO DAILY thiamine HCl (vitamin B1) 100 mg tablet 100 mg PO DAILY@1200 budesonide 3 mg capsule,delayed,extend.release 9 mg PO DAILY Qty: 90 11RF Discharge Orders: Discharge Order (Routine); Ordered 11/19/22 Ordered By: Mirta Patel Diet: Diabetic diet Activity on Discharge: As tolerated Stand Alone Forms: Patient Portal Discharge page Care Plan Goals: Hypoxia resolved in regard to pneumonia take Augmentin, use cough medication Follow diabetic diet low calorie diet avoid large quantity of pasta,rice and breads. Is VNA and PT services Health Concerns: Coronary artery disease/CHF follow low salt diet and take all medications as before Plan of Treatment: Outpatient follow-up with primary care physician and Cardiology Assessment: As above Discharge Date/Time: 11/19/22 15:03
== END 2022-11-19 15:03 | disposition home health service (06) | DRG 193 ==
LOC: HO.ED 23:18 → HO.EDOVER 23:44 → HO.IMC 11-16 10:54 → HO.S3 11-18 16:47
PROVIDERS: Physician Assistant; Admitting Provider Student in an Organized Health Care Education/Training Program; Emergency Provider Emergency Medicine Emergency Medical Services; PCP Family Medicine; Visit Provider Hospitalist
DX: J18.9 Pneumonia, unspecified organism (principal); G93.41 Metabolic encephalopathy; J96.01 Acute respiratory failure with hypoxia; I50.32 Chronic diastolic (congestive) heart failure; Z66 Do not resuscitate; G25.81 Restless legs syndrome; I11.0 Hypertensive heart disease with heart failure; Z86.718 Personal history of other venous thrombosis and embolism; Z20.822 Contact with and (suspected) exposure to COVID-19; Z79.01 Long term (current) use of anticoagulants; Z79.899 Other long term (current) drug therapy
CPT/HCPCS: 0241U; 36415; 71045; 71250; 80048; 80053; 81001; 82947; 83605; 83690; 83735; 83880; 84484; 85007; 85025; 85027; 85610; 85730; 87040; 87086; 93005; 93306; 97162; 99285; J0295; J0456; J0696; Q9957

== ENCOUNTER 2022-11-25 15:34 | Outpatient (REF) | payer MEDICARE, SELFPAY ==
[2022-11-25 15:43] LABS: MANUAL DIFF FLAG NO
[2022-11-25 15:46] LABS: Basophils Absolute Auto 0.1 X10*3/uL (0.0-0.2); Basophils Percent Auto 0.8 % (0-2); Eosinophils Percent Auto 0.5 % (0-4); Hematocrit 38.6 % (37.0-47.0); Hemoglobin 12.4 g/dl (12.0-16.0); Imm Gran Abs Auto 0.26 X10*3/uL (0.00-0.03); Imm Gran Pct Auto 3.9 % (0.0-0.4); Lymphocytes Absolute Auto 0.6 X10*3/uL (1.2-4.9); Lymphocytes Percent Auto 9.7 % (20-40); Mean Corpuscular HGB Conc 32.1 g/dl (31.0-35.0); Mean Corpuscular Hemoglobin 29.7 pg (27.0-33.0); Mean Corpuscular Volume 92.3 fL (80.0-98.0); Mean Platelet Volume 9.5 fL (9.4-12.3); Monocytes Absolute Auto 0.7 X10*3/uL (0.1-1.2); Monocytes Percent Auto 10.5 % (2-11); Neutrophils Absolute Auto 4.9 x10*3/uL (2.0-8.3); Neutrophils Percent Auto 74.6 % (45-73); Platelet Count 591 X10*3/uL (160-400); Red Blood Count 4.18 X10*6/uL (4.20-5.50); Red Cell Distribution Width 17.3 % (11.0-16.0); White Blood Count 6.6 X10*3/uL (4.8-10.8)
[2022-11-25 16:00] LABS: Anion Gap 15 (12-20); Blood Urea Nitrogen 20 mg/dL (9-16); Calcium 8.7 mg/dL (8.4-10.2); Carbon Dioxide 32 mmol/L (22-29); Chloride 101 mmol/L (96-108); Estimated Glomerular Filt Rate 44; Glucose Random 151 mg/dL (60-115); Potassium 4.3 mmol/L (3.3-5.1); Sodium 144 mmol/L (135-145)
[2022-11-25 17:05] LABS: CDiff Gene PCR NEGATIVE (Negative)
== END 2022-11-25 15:35 | disposition home or self-care (01) ==
LOC: HO.HVNA 15:34
PROVIDERS: Visit Provider Family Medicine
DX: R19.7 Diarrhea, unspecified (principal); I50.9 Heart failure, unspecified; M54.9 Dorsalgia, unspecified
CPT/HCPCS: 80048; 85025; 87493

== ENCOUNTER 2023-03-01 15:49 | Outpatient (AMB) | payer MEDICARE, SELFPAY ==
--- NOTE | 2023-03-01 15:58 | MHC.OFFVIS ---
Intake Vital Signs 03/01/23 16:04 Height 5 ft 2 in Weight 171 lb BMI 31.3 BP 105/54 L Blood Pressure Location Lt brachial Position Sitting Pulse 84 Comment Weight stated per PT Intake Visit Reasons: 6 months follow up GERD Intake Note: Patient presents to in office visit today in 6 months follow up of GERD. CC: Patient reports occasional diarrhea, and states she has absolutely not appetite since october after having pneumonia. Denies other GI symptoms. 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 Allergy (Unknown, Uncoded 12/02/20 13:00) Unknown barium Allergy (Uncoded 05/11/21 15:00) Hives HPI 6 months follow up GERD HPI Details Assessment & Plan (1) GERD (gastroesophageal reflux disease): ?Code(s): K21.9 - Gastro-esophageal reflux disease without esophagitis ?Plan: She is in a w/c today r/t back pain. She confirms that she is taking #2 50mg imuran a day and continues on her budesinide. Since she is symptomatically controlled, we will not change this but will consider increasing it if diarrhea returns - her levels were low.? She continues on famotidine when needed for her GERD. She has a spinal injection coming up for this. ROV 6 mos (2) Ulcerative colitis: ?Code(s): K51.90 - Ulcerative colitis, unspecified, without complications ? ? ? Medications: Refilled azathioprine 100 mg (2 x 50 mg) PO DAILY 180 tabs 2RF K51.90 - Ulcerativ e colitis, unspeci fied, without comp lications ? budesonide ER 9 mg (3 x 3 mg) PO DAILY 90 caps 11R F K51.90 - Ulcerativ e colitis, unspeci fied, without comp lications TODAY'S VISIT She was hospitalized with severe pneumonia in October to November. She is here with her son Sg who is supportive. She has had no appetite since her pneumonia, but no nausea or abd pain if there is some question of early satiety. However, she does not want any more tests or interventions at this time and I need to lose weight anyway I'm too heavy. However, she has been taking zantac because of a blah feeling in her stomach, so I will start her on pantoprazole 40mg qd. She continues on her imuran and budesonide (but she is having trouble with getting refills on her budesonide). ROV 6 mos. PFS Medical History Acute proctitis Colitis Constipation DVT (deep venous thrombosis) Hemorrhoids History of CHF (congestive heart failure) HTN (hypertension) Pre-diabetes Restless leg syndrome Spinal abscess Ulcerative colitis Surgical History Hx of shoulder surgery Social History Household Members: Children Household Members Other:: 2 Housing: House Do you presently have visiting nurse or other home services: No Alcohol intake: never Patient Tobacco Use Status: Never used Tobacco Advance Directives Date on File: 11/16/22 service: No Current occupational status: retired Review of Systems Const Denies fatigue, Denies fever(s), Denies night sweats, Reports poor appetite and Denies weight loss Eyes Details: glasses Reports requires corrective lenses ENT Reports Normal hearing present, Denies dental pain, Denies dysphagia, Denies hearing loss, Denies mouth pain, Denies odynophagia, Denies throat swelling, Denies tongue swelling and Reports other (Dentition adequate) Card Reports leg edema, Reports dyspnea and Reports dyspnea on exertion Resp Reports dyspnea and Reports dyspnea on exertion GI Denies abdominal pain, Denies melena, Denies bloating, Denies hematochezia, Denies constipation, Denies GI cramping, Denies dysphagia, Denies excessive flatus, Reports early satiety, Reports heartburn, Reports diarrhea, Denies nausea, Denies odynophagia, Denies vomiting and Denies hematemesis Skin/Breast Denies pruritus, Denies lesions, Denies rash and Denies jaundice Neuro Reports Normal hearing present and Denies Abnormal speech present Endo Denies fatigue Aller/Immun Denies throat swelling and Denies tongue swelling Physical Exam Vital Signs: Last Vital Signs Pulse 84 03/01/23 16:04 BP 105/54 L 03/01/23 16:04 BMI result Body Mass Index 31.3 Const General: cooperative, no acute distress, well developed and well groomed Nutritional Appearance: well nourished and obese Orientation/consciousness: oriented to person, oriented to place and oriented to time Limitations: No language barrier and wheelchair HEENT Head: Yes normocephalic and Yes atraumatic Eyes General: appearance normal, both eyes and all related structures Pupils: Equal, round and reactive pupils present Neck Neck: Yes normal visual inspection and Yes no lymphadenopathy Thyroid: Thyroid normal Resp Effort & Inspection: normal respiratory effort and able to speak in complete sentences Auscultation: clear to auscultation bilaterally Cardio Rate: regular rate Rhythm: regular rhythm Heart sounds: Normal, physiologic split S2 sound present Peripheral pulses: radial pulses present and posterior tibial pulses present GI Inspection: No distended, No Abdominal panniculus present and Yes obesity Palpation (GI): Soft to palpation, nontender, no guarding, not rigid and No hepatosplenomegaly present Percussion: Yes normal to percussion Auscultation: normal bowel sounds Rectal Exam - Female: deferred Skin General skin exam: no rashes or lesions noted, turgor normal, skin not dry, no jaundice, No spider nevi and no striae Rashes: no rashes Nails: normal Neuro General: oriented to person, oriented to place and oriented to time Cranial nerves: Yes Equal, round and reactive pupils present and Yes Normal hearing present Speech: No Abnormal speech present Extrem Other: easy bruising on hands adn legs General: Yes normal to inspection, No clubbing, No cyanosis, Yes edema and Yes venous stasis dermatitis Psych Appearance: grossly normal and well kempt Mental Status: mental status grossly normal Speech and movement: Normal speech and movement present Affect: normal affect Attitude: cooperative Thought process: Normal thought process present and not confabulating Thought content: Normal thought content present Insight: Fair insight present (Psych) Judgement: Fair judgement present (Psych) Assessment & Plan Assessment & Plan (1) GERD (gastroesophageal reflux disease): Code(s): K21.9 - Gastro-esophageal reflux disease without esophagitis Plan: She was hospitalized with severe pneumonia in October to November. She is here with her son Sg who is supportive. She has had no appetite since her pneumonia, but no nausea or abd pain if there is some question of early satiety. However, she does not want any more tests or interventions at this time and I need to lose weight anyway I'm too heavy. However, she has been taking zantac because of a blah feeling in her stomach, so I will start her on pantoprazole 40mg qd. She continues on her imuran and budesonide (but she is having trouble with getting refills on her budesonide). ROV 6 mos. . (2) Ulcerative colitis: Code(s): K51.90 - Ulcerative colitis, unspecified, without complications (3) Acute diarrhea: Code(s): R19.7 - Diarrhea, unspecified Medications: New azathioprine 100 mg (2 x 50 mg) PO DAILY@1800 60 tabs 6RF pantoprazole (Protonix) 40 mg PO DAILY 30 tabs 6RF 30 days K21.9 - Gastro-esophageal reflux disease without esophagitis Discontinued azathioprine 100 mg (2 x 50 mg) PO DAILY 180 tabs 2RF K51.90 - Ulcerative colitis, unspecified, without complications Coding Level of Care Code Est Pt Level 3 (62602) Diagnoses GERD (gastroesophageal reflux disease) K21.9 Ulcerative colitis K51.90 Acute diarrhea R19.7
[2023-03-01 16:04] VITALS: BP 105/54; PULSE 84; BMI 31.3
== END 2023-03-01 16:33 | disposition home or self-care (01) ==
PROVIDERS: PCP Family Medicine; Visit Provider Nurse Practitioner
DX: K21.9 Gastro-esophageal reflux disease without esophagitis (principal); K51.90 Ulcerative colitis, unspecified, without complications; R19.7 Diarrhea, unspecified
CPT/HCPCS: 99213

== ENCOUNTER → 2023-03-01 15:49 | Outpatient (BNVA) | payer MEDICARE, SELFPAY | PROVIDERS: PCP Family Medicine; Visit Provider Nurse Practitioner | DX: K21.9 Gastro-esophageal reflux disease without esophagitis (principal); K51.90 Ulcerative colitis, unspecified, without complications; R19.7 Diarrhea, unspecified | CPT/HCPCS: 99212 ==

== ENCOUNTER 2023-06-01 05:24 | Emergency (ER) | payer MEDICARE, SELFPAY ==
[2023-06-01 05:26] VITALS: BP 148/79; PULSE 76; RESP 16; TEMP 36.6; O2SAT 93; BMI 32.2
--- NOTE | 2023-06-01 06:49 | ED_ITS ---
HPI - General Adult General Chief complaint: Skin/Abscess/Foreign Body Stated complaint: UTI, rash Time Seen by Provider: 06/01/23 06:26 Source: patient Mode of arrival: ambulatory Limitations: no limitations History of Present Illness HPI narrative: Patient is an 83-year-old female presenting to the emergency department with complaint of vaginal itching, burning and yellow discharge as well as mild bleeding for the past week. She reports that the area became irritated and she feels as though she caused an infection from scratching at the area. She saw a nurse practitioner at her PCP office yesterday who was concerned with the pelvic exam findings and attempted to have patient evaluated by an OBGYN, but when the patient call the OBGYN was told she cannot be seen until August. The MONOMER RECOVERY OPERATOR prescribed doxycycline and fluconazole. Patient states she took first dose of fluconazole but did not take any of the doxycycline yet because she knows it causes GI upset for her. She reports burning with urination. States the MONOMER RECOVERY OPERATOR also recommended applying Desitin which she did last night with out any relief. She denies any fevers or other urinary symptoms. She states that she is not currently sexually active. Denies any history of diabetes. MD complaint: vaginal burning Onset (ago): week(s) Location: genitals Radiation: non-radiation Severity: severe Quality: burning Pain Consistency: constant Relieving factors: none Exacerbating factors: movement and other (urination) Associated symptoms: denies other symptoms Treatments prior to arrival: other (diflucan x 1, desitin) Related Data Home Medications Medication Instructions Recorded Confirmed apixaban 5 mg tablet (Eliquis) 5 mg PO BID 12/02/20 11/15/22 ropinirole 0.5 mg tablet 1 mg PO BEDTIME 12/02/20 11/15/22 atorvastatin 40 mg tablet 1 tab PO BEDTIME 05/11/21 11/15/22 metoprolol succinate 25 mg 1 tab PO DAILY 05/11/21 11/15/22 tablet,extended release 24 hr torsemide 20 mg tablet 2 tab PO DAILY 05/11/21 11/15/22 diclofenac sodium 1 % topical gel 1 g topical QID PRN Pain 09/01/22 11/15/22 empagliflozin 10 mg tablet 10 mg PO DAILY 09/01/22 11/15/22 (Jardiance) spironolactone 25 mg tablet 25 mg PO DAILY@0900,1800 09/01/22 11/15/22 thiamine HCl (vitamin B1) 100 mg 100 mg PO DAILY@1200 09/01/22 11/15/22 tablet ropinirole 0.5 mg tablet 0.5 mg PO BID@1200,1800 09/06/22 11/15/22 isosorbide mononitrate 60 mg 60 mg PO BID@0900,1800 11/15/22 11/15/22 tablet,extended release 24 hr Previous Rx's Medication Instructions Recorded budesonide 3 mg 9 mg (3 x 3 mg) PO DAILY #90 caps 09/01/22 capsule,delayed,extended release nitroglycerin 0.4 mg sublingual 0.4 mg sublingual Q5M PRN chest 09/06/22 tablet pain #30 tabs dextromethorphan-guaifenesin 10 10 ml PO TID #250 mL 11/19/22 mg-100 mg/5 mL oral syrup azathioprine 50 mg tablet 100 mg (2 x 50 mg) PO DAILY@1800 03/01/23 #60 tabs pantoprazole 40 mg tablet,delayed 40 mg PO DAILY 30 days #30 tabs 03/01/23 release (Protonix) clotrimazole 1 % topical cream 1 appl topical BID 2 weeks #30 06/01/23 grams clotrimazole 1 % vaginal cream 1 appful vaginal BEDTIME 14 days 06/01/23 (Clotrimazole-7) #90 grams Allergies Allergy/AdvReac Type Severity Reaction Status Date / Time dogs, cats etc.. Allergy Unknown Unknown Uncoded 12/02/20 13:00 barium Allergy Hives Uncoded 05/11/21 15:00 Review of Systems Review of Systems: As per HPI. Yes all other systems are reviewed and are negative Constitutional: Constitutional: Reports as per HPI [facility] Past Medical History Medical History Acute proctitis Colitis Constipation DVT (deep venous thrombosis) Hemorrhoids History of CHF (congestive heart failure) HTN (hypertension) Pre-diabetes Restless leg syndrome Spinal abscess Ulcerative colitis Surgical History Hx of shoulder surgery Social History Social History Household Members: Children Household Members Other:: 2 Housing: House Do you presently have visiting nurse or other home services: No Alcohol intake: never Patient Tobacco Use Status: Never used Tobacco Smoked in Last 30 Days: No Advance Directives: Yes Advance Directives on File: Yes Advance Directives Date on File: 11/16/22 service: No Current occupational status: retired Physical Exam ED Vital Signs: Vital Signs - 24 hr 06/01/23 05:26 Temperature 97.8 F Pulse Rate 76 Respiratory Rate 16 Blood Pressure 148/79 H Pulse Oximetry 93 Oxygen Delivery Method Room Air BMI result Body Mass Index 32.2 Vital signs have been reviewed and appear to be correct. Blood pressure elevated. Heart rate normal. Respiratory rate normal. Temperature normal. Oxygen saturation normal. Const General: cooperative, healthy appearing and no acute distress Orientation/consciousness: oriented to person, oriented to place, oriented to time and patient oriented x3 Limitations: no limitations HENMT Head: Yes normocephalic and Yes atraumatic Ears: external ears normal General nose exam: Normal external nose present Face and sinus: Yes face symmetric Mouth: oropharynx normal and moist mucous membranes Throat: Yes uvula midline Eyes Pupils: Equal, round and reactive pupils present Neck Neck: Yes normal visual inspection and Yes supple Resp Effort & Inspection: normal respiratory effort and able to speak in complete sentences Auscultation: clear to auscultation bilaterally Cardio Rate: regular rate Rhythm: regular rhythm Heart sounds: S1 normal heart sound present and S2 normal heart sound present GI Palpation (GI): Soft to palpation and nontender Auscultation: normoactive bowel sounds Other: Exam chaperoned by SAULO Pennington, Dr. Alford also present General: Yes no CVA tenderness External Female Exam: No normal external appearance (vulvar edema, excoriation, thick, white discharge), erythema, externally tender and lesion Back/Spine/Pelvis Back: no CVA tenderness Skin General skin exam: elasticity normal and turgor normal Neuro General: oriented to person, oriented to place, oriented to time, patient oriented x3, moves all extremities, no focal motor deficits and CN's II-XI intact bilaterally Cranial nerves: Yes Equal, round and reactive pupils present Cognition (Neuro): normal cognition Extrem General: Yes full ROM, Yes no pedal edema and Yes no calf tenderness Psych Mental Status: mental status grossly normal Affect: normal affect Thought process: Normal thought process present Medical Decision Making Medical Decision Making [facility] Narrative: Patient is an 83-year-old female presenting to the emergency department with complaint of vaginal itching, burning and yellow discharge as well as mild bleeding for the past week. On exam patient is awake, A+Ox3, VS WNL, afebrile, normal neurological exam without focal deficits, physical exam findings as above. Given reported symptoms and physical exam findings, initial differential includes vulvovaginal candidiasis, BV. Do not suspect STIs. Physical exam findings consistent with candidiasis and Dr. Alford, who was present for exam, in agreement. POC glucose 93. Advised patient not to begin course of do xycycline prescribed by PCP office, will prescribe clotrimazole cream x 14 days. Instructed patient to follow up with PCP. Return precautions discussed at bedside. Patient verbalized understanding of and agreement with plan. Differential Diagnosis Differential Diagnoses: The differential diagnosis associated with the presentation includes As per [facility]. Consult Healthcare Provider Dr. Alford Lab Data [facility] Lab Attestation statement: I reviewed the patient's lab results. As per [facility]. Labs: Lab Results 06/01/23 Range/Units 09:42 POC Glucose 93 (60-115) mg/dL External Record Review External record reviewed: Inpatient record, Office record and Outpatient record Prescription Management I considered prescription management with: Other (antifungal) Discharge Plan Discharge Clinical Impression: Vulvovaginal candidiasis Patient Disposition: Home, Self-Care Instructions: Yeast Infection (ED), Skin Yeast Infection (ED) Additional Instructions: You were evaluated in the emergency department today for vaginal pain and discharge. Your symptoms are due to a fungal infection, called vulvovaginal candidiasis. DO NOT BEGIN TAKING THE DOXYCYCLINE prescribed by your PCP. You can continue taking the fluconazole. You are being prescribed a cream to be inserted vaginally for 14 days. Please follow up with your primary care office. Return to the emergency department if you experience worseing pain, increased discharge, vaginal bleeding saturating more than 1 pad per hour, abdominal pain, fever, or any other concerning symptoms. You are being referred to Dr. Deal, an PT SITTER for an ongoing symptoms. Prescriptions: New clotrimazole [Clotrimazole-7] 1 % cream 1 appful vaginal BEDTIME 14 Days Qty: 90 0RF clotrimazole 1 % cream 1 appl topical BID 14 Days Qty: 30 0RF No Action ropinirole 0.5 mg tablet 0.5 mg PO BID@1200,1800 nitroglycerin 0.4 mg tablet, sublingual 0.4 mg sublingual Q5M MDD 1.2mg (3 doses) PRN (Reason: chest pain) Qty: 30 0RF Rx Instructions: do not exceed 3 doses per episode atorvastatin 40 mg tablet 1 tab PO BEDTIME torsemide 20 mg tablet 2 tab PO DAILY metoprolol succinate 25 mg tablet extended release 24 hr 1 tab PO DAILY isosorbide mononitrate 60 mg tablet extended release 24 hr 60 mg PO BID@0900,1800 dextromethorphan-guaifenesin 10-100 mg/5 mL Syrup 10 ml PO TID Qty: 250 0RF ropinirole 0.5 mg tablet 1 mg PO BEDTIME Eliquis 5 mg tablet 5 mg PO BID azathioprine 50 mg tablet 100 mg PO DAILY@1800 Qty: 60 6RF pantoprazole [Protonix] 40 mg tablet,delayed release (DR/EC) 40 mg PO DAILY 30 Days Qty: 30 6RF spironolactone 25 mg tablet 25 mg PO DAILY@0900,1800 diclofenac sodium 1 % gel 1 g topical QID PRN (Reason: Pain) Jardiance 10 mg tablet 10 mg PO DAILY thiamine HCl (vitamin B1) 100 mg tablet 100 mg PO DAILY@1200 budesonide 3 mg capsule,delayed,extend.release 9 mg PO DAILY Qty: 90 11RF Referrals: Dewey Deal MD [Physician] -
[2023-06-01 09:46] LABS: Glucose, Whole Blood 93 mg/dL (60-115)
--- NOTE | 2023-06-01 09:57 | PC.NURSE ---
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
== END 2023-06-01 11:17 | disposition home or self-care (01) ==
PROVIDERS: Emergency Provider Emergency Medicine; PCP Family Medicine
DX: B37.31 Acute candidiasis of vulva and vagina (principal); N39.0 Urinary tract infection, site not specified; R21 Rash and other nonspecific skin eruption
CPT/HCPCS: 82947; 99283; 99284

== ENCOUNTER 2023-08-31 15:22 | Outpatient (AMB) | payer MEDICARE, SELFPAY ==
--- NOTE | 2023-08-31 15:29 | MHC.OFFVIS ---
Intake Vital Signs 08/31/23 15:31 Height 5 ft 2 in BMI Reason not done Patient refused/unable BP 136/71 Blood Pressure Location Lt brachial Position Sitting Pulse 66 Intake Visit Reasons: 6 mnth follow up Intake Note: Patient presents to in office visit today in 6 months follow up of GERD. CC: Patient states that recently had an episode of diarrhea after eating peanuts. She continues having a poor appetite. Denies other GI symptoms. 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 Allergy (Unknown, Uncoded 12/02/20 13:00) Unknown barium Allergy (Uncoded 05/11/21 15:00) Hives HPI 6 mnth follow up HPI Details Assessment & Plan (1) GERD (gastroesophageal reflux disease): Code(s): K21.9 - Gastro-esophageal reflux disease without esophagitis Plan: She was hospitalized with severe pneumonia in October to November. She is here with her son Sg who is supportive. She has had no appetite since her pneumonia, but no nausea or abd pain if there is some question of early satiety. However, she does not want any more tests or interventions at this time and I need to lose weight anyway I'm too heavy. However, she has been taking zantac because of a blah feeling in her stomach, so I will start her on pantoprazole 40mg qd. She continues on her imuran and budesonide (but she is having trouble with getting refills on her budesonide). ROV 6 mos. . (2) Ulcerative colitis: Code(s): K51.90 - Ulcerative colitis, unspecified, without complications (3) Acute diarrhea: Code(s): R19.7 - Diarrhea, unspecified Medications: New azathioprine 100 mg (2 x 50 mg) PO DAILY@1800 60 tabs 6RF pantoprazole (Prot corwin) 40 mg PO DAILY 30 tabs 6RF 30 days K21.9 - Gastro-eso phageal reflux dis ease without esoph agitis Discontinued azathioprine 100 mg (2 x 50 mg) PO DAILY 180 tabs 2RF K51.90 - Ulcerativ e colitis, unspeci fied, without comp lications CORRESPONDENCE On 03/02/23 @ 09:49 Milagro Garza Wrote To ,October Called [facility] and spoke to Theres, she states that it seems like it was filled before and she did not picked it up and it was put back but they will refill for her today.? Patient notified. On 03/01/23 @ 16:25 Kinza Young Wrote To Milagro Garza She is having trouble getting the budeside refilled despite having refills, ? qty limits?? Can we check on this and see if we can help? THis WILL be a chronic medication. TODAY'S VISIT She continues to have a poor appetite, no N/V or pain but no interest in eating. I offer to conduct tests such as an EGD, but she declines for now. She also continues to decline a colonoscopy. She continues on her budesinide and imuran and the pantoprazole. She only has had diarrhea when she ate a bunch of peanuts. ROV 6 mos. PFSH Medical History Acute proctitis Colitis Constipation DVT (deep venous thrombosis) Hemorrhoids History of CHF (congestive heart failure) HTN (hypertension) Pre-diabetes Restless leg syndrome Spinal abscess Ulcerative colitis Surgical History Hx of shoulder surgery Social History Household Members: Children Household Members Other:: 2 Housing: House Do you presently have visiting nurse or other home services: No Alcohol intake: never Patient Tobacco Use Status: Never used Tobacco Advance Directives Date on File: 11/16/22 service: No Current occupational status: retired Review of Systems Const Denies fatigue, Denies fever(s), Denies night sweats, Reports poor appetite and Denies weight loss Eyes Details: glasses Reports requires corrective lenses ENT Reports Normal hearing present, Denies dental pain, Denies dysphagia, Denies hearing loss, Denies mouth pain, Denies odynophagia, Denies throat swelling, Denies tongue swelling and Reports other (Dentition adequate) Card Reports no additional complaints and Reports dyspnea on exertion Resp Reports dyspnea on exertion GI Details: Denies abdominal pain, Denies melena, Reports bloating, Denies hematochezia, Denies constipation, Denies GI cramping, Denies dysphagia, Denies excessive flatus, Denies early satiety, Reports heartburn, Denies diarrhea, Denies nausea, Denies odynophagia, Denies vomiting and Denies hematemesis Skin/Breast Denies pruritus, Denies lesions, Denies rash and Denies jaundice Neuro Reports Normal hearing present and Denies Abnormal speech present Endo Denies fatigue Aller/Immun Denies throat swelling and Denies tongue swelling Physical Exam Vital Signs: Last Vital Signs Pulse 66 08/31/23 15:31 BP 136/71 08/31/23 15:31 Const General: cooperative, no acute distress, well developed and well groomed Nutritional Appearance: well nourished and obese Orientation/consciousness: oriented to person, oriented to place and oriented to time Limitations: No language barrier and wheelchair HEENT Head: Yes normocephalic and Yes atraumatic Eyes General: appearance normal, both eyes and all related structures Pupils: Equal, round and reactive pupils present Neck Neck: Yes normal visual inspection and Yes no lymphadenopathy Thyroid: Thyroid normal Resp Effort & Inspection: normal respiratory effort and able to speak in complete sentences Auscultation: clear to auscultation bilaterally Cardio Rate: regular rate Rhythm: regular rhythm Heart sounds: Normal, physiologic split S2 sound present Peripheral pulses: radial pulses present and posterior tibial pulses present GI Inspection: No distended, Yes Abdominal panniculus present and Yes obesity Palpation (GI): Soft to palpation, nontender, no guarding, not rigid and No hepatosplenomegaly present Percussion: Yes normal to percussion Auscultation: normal bowel sounds Rectal Exam - Female: deferred Skin General skin exam: no rashes or lesions noted, turgor normal, skin not dry, no jaundice, No spider nevi and no striae Rashes: no rashes Nails: normal Neuro General: oriented to person, oriented to place and oriented to time Cranial nerves: Yes Equal, round and reactive pupils present and Yes Normal hearing present Speech: No Abnormal speech present Extrem General: Yes normal to inspection, No clubbing, No cyanosis and No edema Psych Appearance: grossly normal and well kempt Mental Status: mental status grossly normal Speech and movement: Normal speech and movement present Affect: normal affect Attitude: cooperative Thought process: Normal thought process present and not confabulating Thought content: Normal thought content present Insight: Fair insight present (Psych) and Limited insight present (Psych) Judgement: Fair judgement present (Psych) and Limited judgement present (Psych) Assessment & Plan Assessment & Plan (1) Ulcerative colitis: Code(s): K51.90 - Ulcerative colitis, unspecified, without complications (2) GERD (gastroesophageal reflux disease): Code(s): K21.9 - Gastro-esophageal reflux disease without esophagitis Plan She continues to have a poor appetite, no N/V or pain but no interest in eating. I offer to conduct tests such as an EGD, but she declines for now. She also continues to decline a colonoscopy. She continues on her budesinide and imuran and the pantoprazole. She only has had diarrhea when she ate a bunch of peanuts. ROV 6 mos. Coding Level of Care Code Est Pt Level 3 (73166) Diagnoses Ulcerative colitis K51.90 GERD (gastroesophageal reflux disease) K21.9
[2023-08-31 15:31] VITALS: BP 136/71; PULSE 66
== END 2023-08-31 16:02 | disposition home or self-care (01) ==
PROVIDERS: PCP Family Medicine; Visit Provider Nurse Practitioner
DX: K51.90 Ulcerative colitis, unspecified, without complications (principal); K21.9 Gastro-esophageal reflux disease without esophagitis
CPT/HCPCS: 99213

== ENCOUNTER → 2023-08-31 15:22 | Outpatient (BNVA) | payer MEDICARE, SELFPAY | PROVIDERS: PCP Family Medicine; Visit Provider Nurse Practitioner | DX: K51.90 Ulcerative colitis, unspecified, without complications (principal); K21.9 Gastro-esophageal reflux disease without esophagitis | CPT/HCPCS: 99212 ==

== ENCOUNTER 2023-09-27 10:23 | Outpatient (AMB) | payer MEDICARE, SELFPAY ==
--- NOTE | 2023-09-27 11:21 | AM.OFFWIN_ITS ---
Intake Vital Signs 09/27/23 11:23 BMI Reason not done Patient refused/unable BP 110/76 Blood Pressure Location Lt brachial Position Sitting Pulse 60 Pulse Source Pulse Oximeter Pulse Oximetry (%) 95 Oxygen Delivery Method Room Air Intake Visit Reasons: EP both legs wheeping puss Intake Note: Patient here because she fell in august and got a hematoma which started bleeding about 1 week ago, pt states her right leg has become very sore. Pt states she noticed a s pot of the back of her left knee which has been leaking . Patient Tobacco Use Status: Never used Tobacco Allergies dogs, cats etc.. Allergy (Unknown, Uncoded 09/27/23 11:25) Unknown barium Allergy (Uncoded 09/27/23 11:25) Hives Do you need a note to return to daycare/school/sports/work: No HPI HPI Comments History of Present Illness Details 83 y/o female patient who presents to [facility] in clinic with c/o right lower extremity pain. Pt fell at home back in August.Reports noticing pain getting worse and an open area on right díaz bleeding. Pt is on Apixaban for Unknown heart disease. Reports pain with working - walks with a walker at home. [facility] Medical History Acute proctitis Colitis Constipation DVT (deep venous thrombosis) Hemorrhoids History of CHF (congestive heart failure) HTN (hypertension) Pre-diabetes Restless leg syndrome Spinal abscess Ulcerative colitis Surgical History Hx of shoulder surgery Social History Household Members: Children Household Members Other:: 2 Housing: House Do you presently have visiting nurse or other home services: No Alcohol intake: never Patient Tobacco Use Status: Never used Tobacco Advance Directives Date on File: 11/16/22 service: No Current occupational status: retired Physical Exam Vital Signs: Last Vital Signs Pulse 60 09/27/23 11:23 BP 110/76 09/27/23 11:23 Pulse Ox 95 09/27/23 11:23 Oxygen Delivery Method Room Air 09/27/23 11:23 Const General: cooperative and no acute distress Orientation/consciousness: patient oriented x3 Limitations: wheelchair Cardio Rate: regular rate Rhythm: regular rhythm Neuro General: patient oriented x3 and no focal motor deficits Extrem Right lower extremity: edema, lower leg Details: erythema, tenderness, pitting edema Details: 3+ and ecchymosis and ankle Details: tenderness, swelling, edema Details: 3+, warmth and ecchymosis Left lower extremity: lower leg Details: erythema, localized swelling, pitting edema and ecchymosis Assessment & Plan Assessment & Plan (1) Acute pain of right lower extremity: Code(s): M79.604 - Pain in right leg Plan: - Acetaminophen for pain relief - No signs of infection - Edema bilateral lower extremities, right >left. - Both limbs covered with black/blue bruises. - She is on Apixaban Orders: Orders XR tibia fibula RT 2V Today M79.604 - Pain in right leg XR ankle RT 2V Today M79.604 - Pain in right leg Coding Level of Care Code Est Pt Level 3 (27614) Diagnoses Acute pain of right lower extremity M79.604 Time Spent (min) 15
[2023-09-27 11:23] VITALS: BP 110/76; PULSE 60; O2SAT 95
== END 2023-09-27 12:26 | disposition home or self-care (01) ==
PROVIDERS: PCP Family Medicine; Visit Provider Nurse Practitioner Family
DX: M79.604 Pain in right leg (principal)
CPT/HCPCS: 99213

== ENCOUNTER 2023-09-27 11:57 | Outpatient (REF) | payer MEDICARE, SELFPAY ==
--- NOTE | ~2023-09-27 | XR_ITS ---
EXAMINATION: XR TIBIA AND FIBULA, RIGHT CLINICAL INFORMATION: Pain in right leg COMPARISON: None available. TECHNIQUE: AP and lateral views of the right tibia and fibula were obtained. FINDINGS: The bones are intact. No fracture. No osseous lesions. Arterial vascular calcification is seen. XR/XR tibia fibula RT 2V IMPRESSION: No bony abnormality.
--- NOTE | ~2023-09-27 | XR_ITS ---
EXAMINATION: XR ANKLE, RIGHT CLINICAL INFORMATION: Pain in right leg Status post fall COMPARISON: Same-day right tibia/fibula TECHNIQUE: AP, lateral, and mortise views of the right ankle. FINDINGS: No fracture. Alignment is anatomic. No erosions. Joint spaces are maintained. Large posterior plantar calcaneal spur is seen. XR/XR ankle RT 2V IMPRESSION: No acute bony abnormality.
== END 2023-09-27 11:58 | disposition home or self-care (01) ==
LOC: HO.HMGCX 11:57
PROVIDERS: PCP Family Medicine; Visit Provider Nurse Practitioner Family
DX: M79.604 Pain in right leg (principal)
CPT/HCPCS: 73590; 73600

== ENCOUNTER 2023-11-07 04:16 | Emergency (ER) | payer MEDICARE, SELFPAY ==
--- NOTE | ~2023-11-07 | XR_ITS ---
EXAMINATION: XR CHEST CLINICAL INFORMATION: Chest pain COMPARISON: 11/15/2022 TECHNIQUE: Frontal view of the chest was obtained. FINDINGS: The lungs are mildly hypoinflated. There is patchy airspace opacity at the left lung base and possibly to a lesser degree at the right lung base. No appreciable pneumothorax. Trace left pleural effusion is difficult to exclude. No evidence of pneumothorax. Central vasculature is mildly prominent. The cardiomediastinal contour is unremarkable. No acute osseous findings are seen. XR/XR chest 1V IMPRESSION: Patchy left basilar opacity concerning for pneumonia in the proper clinical setting. Trace left pleural effusion is difficult to exclude. Subtle right basilar opacity may also be present.
--- NOTE | ~2023-11-07 | CT_ITS ---
EXAMINATION: CT CHEST WITHOUT CONTRAST CLINICAL INFORMATION: Chest pain, possible pneumonia COMPARISON: Chest radiograph from earlier in the day, 11/15/[address] and chest radiograph TECHNIQUE: Multidetector volumetric CT imaging of the chest was done. Axial MIP volume rendering provided. Sagittal and coronal reformatted images were obtained. This CT examination was performed using dose optimization techniques as appropriate, variously including the following: *Automated exposure control *Adjustment of mA and/or kV according to patient size (this includes techniques or standardized protocols for targeted exams where dose is matched to indication/reason for exam; i.e. 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 LUNGS: Trachea and bronchi are patent. Predominantly lower lobe bronchiectasis again seen. Mild residual increased markings, scarring/atelectasis in the right upper lobe in previous region of consolidation. Increasing right upper lobe medial apical and medial lower lobe atelectasis. Minimal increased subpleural markings, scarring/atelectasis left lower lobe in region of previous consolidation. No consolidations or groundglass opacities. 5 mm right upper lobe pulmonary nodule, 6:106 tall, appears to have been present on previous CT but study limited by right upper lobe opacity present at that time and significant respiratory motion. Scattered micronodules. MEDIASTINUM: Unremarkable thyroid. Calcified and noncalcified spinal nonpathologically enlarged lymph nodes. Heart size within normal limits. No pericardial effusion. Likely cardiac stent. Nonaneurysmal aorta with atherosclerotic calcifications. Nonenlarged pulmonary arteries. CORONARY ARTERY CALCIFICATION: Moderately severe PLEURA: Right minor fissural lymph node. There is no pleural effusion. No pleural mass or thickening. AXILLA: No lymphadenopathy. UPPER ABDOMEN: Unremarkable. OSSEOUS STRUCTURES: Degenerative type changes. No suspicious osseous lesions. CT/CT chest wo IV con IMPRESSION: No consolidations or pneumonias. Bronchiectasis. Scarring/atelectasis. 5 mm right upper lobe pulmonary nodule. No routine follow-up necessarily required in low-risk patients. In high risk patients, optional CT follow-up in 12 months may be considered. If stable at 12 months, no further follow-up is recommended. Fleischner guidelines were followed.
--- NOTE | 2023-11-07 04:26 | ECG_ITS ---
Test Reason : CHEST PAIN Blood Pressure : / mmHG Vent. Rate : 056 BPM Atrial Rate : 056 BPM P-R Int : 154 ms QRS Dur : 100 ms QT Int : 448 ms P-R-T Axes : 075 -34 015 degrees QTc Int : 432 ms Sinus bradycardia Left axis deviation Moderate voltage criteria for LVH, may be normal variant ( R in aVL , Alonso product ) Nonspecific ST abnormality Abnormal ECG When compared with ECG of 15-NOV-2022 18:09, Premature supraventricular complexes are no longer Present Vent. rate has decreased BY 56 BPM Referred By: Generic ED Physician Electronically Signed By:HILARIO SALVADOR
[2023-11-07 04:27] VITALS: BP 140/82; BP 141/72; PULSE 57; PULSE 60; RESP 49; TEMP 36.5; O2SAT 95; O2SAT 98; BMI 32.3
[2023-11-07 05:09] LABS: Basophils Percent Auto 0.1 % (0-2); Eosinophils Percent Auto 0.2 % (0-4); Hematocrit 42.8 % (37.0-47.0); Hemoglobin 14.2 g/dl (12.0-16.0); Imm Gran Abs Auto 0.05 X10*3/uL (0.00-0.03); Imm Gran Pct Auto 0.6 % (0.0-0.4); Lymphocytes Absolute Auto 0.6 X10*3/uL (1.2-4.9); Lymphocytes Percent Auto 6.8 % (20-40); MANUAL DIFF FLAG NO; Mean Corpuscular HGB Conc 33.2 g/dl (31.0-35.0); Mean Corpuscular Hemoglobin 29.3 pg (27.0-33.0); Mean Corpuscular Volume 88.4 fL (80.0-98.0); Mean Platelet Volume 9.5 fL (9.4-12.3); Monocytes Absolute Auto 0.7 X10*3/uL (0.1-1.2); Monocytes Percent Auto 7.9 % (2-11); Neutrophils Percent Auto 84.4 % (45-73); Platelet Count 315 X10*3/uL (160-400); Red Blood Count 4.84 X10*6/uL (4.20-5.50); Red Cell Distribution Width 17.5 % (11.0-16.0); White Blood Count 8.3 X10*3/uL (4.8-10.8)
[2023-11-07 05:15] LABS: INTERNATIONAL NORM RATIO 1.1 (0.9-1.1); Prothrombin Time 13.7 SEC (11.1-13.3)
--- NOTE | 2023-11-07 05:19 | ED_ITS ---
HPI - Chest Pain General Chief Complaint: Chest Pain Stated Complaint: chest pain Time Seen by Provider: 11/07/23 05:18 Source: patient Mode of arrival: ambulatory Limitations: no limitations History of Present Illness HPI narrative: Patient 83 years old with history of ulcerative colitis history of DVT on Eliquis, CHF restless leg syndrome, history of coronary disease status post stent placement in 2021 comes here for mid chest pain started 03:00 patient woke up because of chest pain which lasted for about an hour , patient took 3 nitroglycerin tablets and felt better by the time EMS arrived Related Data Home Medications ?Medication ?Instructions ?Recorded ?Confirmed apixaban 5 mg tablet (Eliquis) 5 mg PO BID 12/02/20 11/15/22 ropinirole 0.5 mg tablet 1 mg PO BEDTIME 12/02/20 11/15/22 atorvastatin 40 mg tablet 1 tab PO BEDTIME 05/11/21 11/15/22 torsemide 20 mg tablet 2 tab PO DAILY 05/11/21 11/15/22 diclofenac sodium 1 % topical gel 1 g topical QID PRN Pain 09/01/22 11/15/22 empagliflozin 10 mg tablet 10 mg PO DAILY 09/01/22 11/15/22 (Jardiance) spironolactone 25 mg tablet 25 mg PO DAILY@0900,1800 09/01/22 11/15/22 thiamine HCl (vitamin B1) 100 mg 100 mg PO DAILY@1200 09/01/22 11/15/22 tablet ropinirole 0.5 mg tablet 0.5 mg PO BID@1200,1800 09/06/22 11/15/22 isosorbide mononitrate 60 mg 60 mg PO BID@0900,1800 11/15/22 11/15/22 tablet,extended release 24 hr duloxetine 20 mg capsule,delayed 20 mg PO DAILY 08/31/23 release gabapentin 400 mg capsule mg PO 08/31/23 metoprolol succinate 50 mg 50 mg PO DAILY 08/31/23 tablet,extended release 24 hr oxycodone 5 mg tablet 5 mg PO BID PRN 08/31/23 Previous Rx's ?Medication ?Instructions ?Recorded nitroglycerin 0.4 mg sublingual 0.4 mg sublingual Q5M PRN chest 09/06/22 tablet pain #30 tabs dextromethorphan-guaifenesin 10 10 ml PO TID #250 mL 04/30/23 mg-100 mg/5 mL oral syrup clotrimazole 1 % topical cream 1 appl topical BID 2 weeks #30 06/01/23 grams clotrimazole 1 % vaginal cream 1 appful vaginal BEDTIME 14 days 06/01/23 (Clotrimazole-7) #90 grams pantoprazole 40 mg tablet,delayed 40 mg PO DAILY #90 tabs 06/12/23 release budesonide 3 mg 9 mg (3 x 3 mg) PO DAILY #270 caps 09/17/23 capsule,delayed,extended release azathioprine 50 mg tablet 100 mg (2 x 50 mg) PO DAILY #180 10/01/23 tabs Allergies Allergy/AdvReac Type Severity Reaction Status Date / Time dogs, cats etc.. Allergy Unknown Unknown Uncoded 11/07/23 04:31 barium Allergy Hives Uncoded 11/07/23 04:31 Review of Systems 2 Review of Systems: Yes all other systems are reviewed and are negative [facility] Past Medical History Medical History History of CHF (congestive heart failure) Constipation Acute proctitis Hemorrhoids Spinal abscess Restless leg syndrome HTN (hypertension) Pre-diabetes DVT (deep venous thrombosis) Colitis Ulcerative colitis Surgical History Hx of shoulder surgery Social History Social History Household Members: Children Household Members Other:: 2 Housing: House Do you presently have visiting nurse or other home services: No Alcohol intake: never Patient Tobacco Use Status: Never used Tobacco Smoked in Last 30 Days: No Use of substances other than those prescribed or required for medical reasons: No Advance Directives: Yes Advance Directives on File: Yes Advance Directives Date on File: 11/16/22 service: No Current occupational status: retired Physical Exam 2 Vital Signs: Vital Signs: Last Vital Signs Temp 97.6 F 11/07/23 06:31 Pulse 55 11/07/23 06:31 Resp 111 H 11/07/23 06:31 BP 120/57 L 11/07/23 06:31 Pulse Ox 95 11/07/23 06:31 O2 Del Method Room Air 11/07/23 06:31 BMI result Body Mass Index 32.3 Appearance: Alert. Oriented X3. No acute distress. Eyes: No pallor or icterus ENT: Pharynx normal. Oral Mucosa moist Neck: Normal inspection. Neck supple. CVS: Normal heart rate and rhythm. Pulses normal. No murmur rub or gallop Respiratory: No respiratory distress. Equal air entry bilateral, no wheezing/rales/rhonchi Abdomen: Soft and nontender. Bowel sounds are present, no mass palpable, no CVA tenderness Skin: Skin warm and dry. Normal skin color. Normal skin turgor. Extremities: No lower extremity edema. No calf tenderness Neuro: Oriented X 3. No motor deficit. No sensory deficit.No cerebellar signs , cranial nerves II-XII intact Medical Decision Making Medical Decision Making [facility] Narrative: Patient with significant coronary artery disease status post stent placement on Eliquis for DVT woke up from sleep with chest pain initial EKG without any acute ischemic changes troponin is 7.0 we will rechecked delta troponin patient is chest pain-free at this time Repeat EKG without any acute changes Differential Diagnosis Differential Diagnoses: The differential diagnosis associated with the presentation includes ACS/noncardiac chest pain Admission/Observation Consideration of admission/observation: Escalation of care including admission/observation considered Lab Data [facility] Lab Attestation statement: I reviewed the patient's lab results. 11/07/23 05:03 11/07/23 05:03 Labs: Lab Results 11/07/23 11/07/23 Range/Units 05:03 05:04 WBC 8.3 (4.8-10.8) X10*3/uL RBC 4.84 (4.20-5.50) X10*6/uL Hgb 14.2 (12.0-16.0) g/dl Hct 42.8 (37.0-47.0) % MCV 88.4 (80.0-98.0) fL MCH 29.3 (27.0-33.0) pg MCHC 33.2 (31.0-35.0) g/dl RDW 17.5 H (11.0-16.0) % Plt Count 315 D (160-400) X10*3/uL MPV 9.5 (9.4-12.3) fL Immature Gran % (Auto) 0.6 H (0.0-0.4) % Neut % (Auto) 84.4 H (45-73) % Lymph % (Auto) 6.8 L (20-40) % Sabine % (Auto) 7.9 (2-11) % Eos % (Auto) 0.2 (0-4) % Baso % (Auto) 0.1 (0-2) % Lymph # (Auto) 0.6 L (1.2-4.9) X10*3/uL Sabine # (Auto) 0.7 (0.1-1.2) X10*3/uL Eos # (Auto) 0.0 (0.0-0.4) X10*3/uL Baso # (Auto) 0.0 (0.0-0.2) X10*3/uL Abs Immat Gran (auto) 0.05 H (0.00-0.03) X10*3/uL Absolute Neuts (auto) 7.0 (2.0-8.3) x10*3/uL Absolute Nucleated RBC 0.000 (0.0-0.012) X10*3/uL Nucleated RBC % (auto) 0.0 (0.0-0.2) /100WBC PT 13.7 H (11.1-13.3) SEC INR 1.1 (0.9-1.1) Sodium 135 (135-145) mmol/L Potassium 4.1 (3.3-5.1) mmol/L Chloride 97 (96-108) mmol/L Carbon Dioxide 26 (22-29) mmol/L Anion Gap 16 (12-20) BUN 52 H (9-16) mg/dL Creatinine 1.53 H (0.5-1.4) mg/dL Estim Creat Clear Calc 26.8 Estimated GFR 32 Random Glucose 307 H (60-115) mg/dL Calcium 9.4 D (8.4-10.2) mg/dL Troponin I High Sens 7.0 D (<3.5-17.0) ng/L B-Natriuretic Peptide 28 (<100) pg/mL Influenza Type A (PCR) NEGATIVE (Negative) Influenza Type B (PCR) NEGATIVE (Negative) RSV RNA Qual (PCR) NEGATIVE (Negative) SARS-CoV-2 RNA (RT-PCR) NEGATIVE (Negative) Independent Interpretation I performed an independent interpretation of an: EKG Interpretation: Sinus bradycardia with good rate of 56 beats per minute left axis deviation LVH no acute STT wave changes no acute ischemia Discharge Plan Discharge Clinical Impression: Chest pain Patient Disposition: Still a Patient Prescriptions: No Action pantoprazole 40 mg tablet,delayed release (DR/EC) 40 mg PO DAILY Qty: 90 2RF budesonide 3 mg capsule,delayed,extend.release 9 mg PO DAILY Qty: 270 3RF azathioprine 50 mg tablet 100 mg PO DAILY Qty: 180 2RF ropinirole 0.5 mg tablet 0.5 mg PO BID@1200,1800 nitroglycerin 0.4 mg tablet, sublingual 0.4 mg sublingual Q5M MDD 1.2mg (3 doses) PRN (Reason: chest pain) Qty: 30 0RF Rx Instructions: do not exceed 3 doses per episode atorvastatin 40 mg tablet 1 tab PO BEDTIME torsemide 20 mg tablet 2 tab PO DAILY isosorbide mononitrate 60 mg tablet extended release 24 hr 60 mg PO BID@0900,1800 dextromethorphan-guaifenesin 10-100 mg/5 mL Syrup 10 ml PO TID Qty: 250 0RF clotrimazole [Clotrimazole-7] 1 % cream 1 appful vaginal BEDTIME 14 Days Qty: 90 0RF clotrimazole 1 % cream 1 appl topical BID 14 Days Qty: 30 0RF ropinirole 0.5 mg tablet 1 mg PO BEDTIME Eliquis 5 mg tablet 5 mg PO BID spironolactone 25 mg tablet 25 mg PO DAILY@0900,1800 diclofenac sodium 1 % gel 1 g topical QID PRN (Reason: Pain) Jardiance 10 mg tablet 10 mg PO DAILY thiamine HCl (vitamin B1) 100 mg tablet 100 mg PO DAILY@1200 metoprolol succinate 50 mg tablet extended release 24 hr 50 mg PO DAILY duloxetine 20 mg capsule,delayed release(DR/EC) 20 mg PO DAILY gabapentin 400 mg capsule PO oxycodone 5 mg tablet 5 mg PO BID PRN Print Language: Portuguese
[2023-11-07 05:25] LABS: Anion Gap 16 (12-20); Blood Urea Nitrogen 52 mg/dL (9-16); Calcium 9.4 mg/dL (8.4-10.2); Carbon Dioxide 26 mmol/L (22-29); Chloride 97 mmol/L (96-108); Creatinine Clr Calc Pharmacy 26.8; Estimated Glomerular Filt Rate 32; Glucose Random 307 mg/dL (60-115); Potassium 4.1 mmol/L (3.3-5.1); Sodium 135 mmol/L (135-145)
[2023-11-07 05:31] LABS: B Type Natriuretic Peptide 28 pg/mL (<100)
[2023-11-07 05:38] VITALS: BP 141/72; PULSE 53; RESP 13; O2SAT 97
[2023-11-07 05:45] LABS: Influenza A PCR NEGATIVE (Negative); Influenza B PCR NEGATIVE (Negative); Resp Syncy Virus RNA Qual PCR NEGATIVE (Negative); SARS COV2 PCR INHOUSE NEGATIVE (Negative)
[2023-11-07 06:31] VITALS: BP 120/57; PULSE 55; RESP 111; TEMP 36.4; O2SAT 95
--- NOTE | 2023-11-07 06:53 | ECG_ITS ---
Test Reason : repeat Blood Pressure : / mmHG Vent. Rate : 052 BPM Atrial Rate : 052 BPM P-R Int : 158 ms QRS Dur : 092 ms QT Int : 462 ms P-R-T Axes : 042 -36 008 degrees QTc Int : 429 ms Sinus bradycardia Left axis deviation Nonspecific ST abnormality Abnormal ECG When compared with ECG of 07-NOV-2023 04:28, No significant change was found Referred By: Robel Roe Electronically Signed By:HILARIO SALVADOR
[2023-11-07 08:20] VITALS: BP 117/57; PULSE 95; RESP 13; TEMP 36.3; O2SAT 95
[2023-11-07 08:28] LABS: Troponin-I High Sensitivity 6.5 ng/L (<3.5-17.0)
--- NOTE | 2023-11-07 09:40 | MHC.CM.ED ---
Received notification from Catherine SANDERS that patient is active with their agency. Return referral sent in [facility] so [facility] can follow for d/c needs.
[2023-11-07 09:43] LABS: Lactic Acid 2.6 mmol/L (0.5-2.0)
[2023-11-07 10:00] VITALS: BP 134/62; PULSE 61; RESP 18; TEMP 36.3; O2SAT 98
[2023-11-07 10:07] VITALS: BP 134/62; PULSE 61; RESP 18; TEMP 36.3; O2SAT 98
[2023-11-07 11:23] LABS: Reflex Lactate? Lactic Acid Added
== END 2023-11-07 10:08 | disposition home or self-care (01) ==
PROVIDERS: Emergency Medicine; Emergency Provider Internal Medicine; PCP Family Medicine
DX: R07.89 Other chest pain (principal); R00.1 Bradycardia, unspecified; R06.02 Shortness of breath; M54.6 Pain in thoracic spine; Z03.818 Encounter for observation for suspected exposure to other biological agents ruled out; Z79.899 Other long term (current) drug therapy
CPT/HCPCS: 0241U; 36415; 71045; 71250; 80048; 83605; 83880; 84484; 85025; 85610; 87040; 93005; 99284; 99285

== ENCOUNTER → 2023-11-07 04:26 | Outpatient (BNV) | payer MEDICARE, SELFPAY | PROVIDERS: Emergency Provider Internal Medicine; PCP Family Medicine; Visit Provider Internal Medicine | DX: R00.1 Bradycardia, unspecified (principal) | CPT/HCPCS: 93010 ==

== ENCOUNTER 2023-12-09 07:25 | Inpatient (IN) | payer MEDICARE, SELFPAY ==
[2023-12-09] VITALS (12 sets, daily range): BP systolic 118–180; BP diastolic 50–100; PULSE 84–99; RESP 16–20; TEMP 36.8–37.9; O2SAT 86–98; BMI 29.7
--- NOTE | ~2023-12-09 | CT_ITS ---
EXAMINATION: CT HEAD WITHOUT CONTRAST CLINICAL INFORMATION: Confusion. Anticoagulated. COMPARISON: Most recent brain MRI dated 02/01/2018. TECHNIQUE: Contiguous axial imaging was performed from the skull base to vertex without intravenous administration of contrast. This CT examination was performed using dose optimization techniques as appropriate, variously including the following: *Automated exposure control *Adjustment of mA and/or kV according to patient size (this includes techniques or standardized protocols for targeted exams where dose is matched to indication/reason for exam; i.e. extremities or head) *Use of iterative reconstruction technique DLP: 999 mGy-cm FINDINGS: The ventricles and sulci are enlarged consistent with diffuse atrophy. No visualized masses or midline shift are seen. There is no intra-axial or extra-axial hemorrhage. There are no fluid collections. Decreased attenuation is seen in the periventricular white matter compatible with chronic small vessel ischemic disease. The galvan-white discrimination is preserved. Mucoperiosteal thickening with mucous retention cyst versus polyps in the maxillary sinuses. Otherwise, the included paranasal sinuses and mastoid air cells are well aerated. The calvarium is intact. CT/CT head/brain wo IV con IMPRESSION: No intracranial hemorrhage or mass effect. Generalized atrophy and chronic small vessel white matter ischemic changes.
--- NOTE | ~2023-12-09 | XR_ITS ---
EXAMINATION: XR CHEST CLINICAL INFORMATION: Follow-up multifocal pneumonia. COMPARISON: CT chest and chest radiograph dated 12/08/2013. TECHNIQUE: Frontal view of the chest was obtained. FINDINGS: The cardiac silhouette is now partially obscured, with evaluation somewhat limited by rotation. There is pulmonary vascular congestion. There are diminished lung volumes, with atelectasis most pronounced in the mid right lung and at the left base. There is blunting of the left lateral costophrenic angle. There is a bilateral diffuse interstitial pattern. No pneumothorax is seen. There is no acute osseous abnormality. There is calcific tendinitis of the left rotator cuff. XR/XR chest 1V IMPRESSION: There are diminished lung volumes, with bilateral foci of plate-like atelectasis. There is underlying pulmonary vascular congestion, and a diffuse follow interstitial pattern is seen. A small left pleural effusion is noted. Differential considerations include congestive heart failure, and underlying pneumonic infiltrate is not excluded. Recommend clinical correlation and follow-up imaging to full clearance.
--- NOTE | ~2023-12-09 | CT_ITS ---
EXAMINATION: CT CHEST WITHOUT CONTRAST CLINICAL INFORMATION: Confusion, on anticoagulation. Cough. Weakness. COMPARISON: Chest radiograph done earlier the same day. Most recent CT chest dated 11/07/2023. TECHNIQUE: Multidetector volumetric CT imaging of the chest was done. Axial MIP volume rendering provided. Sagittal and coronal reformatted images were obtained. This CT examination was performed using dose optimization techniques as appropriate, variously including the following: *Automated exposure control *Adjustment of mA and/or kV according to patient size (this includes techniques or standardized protocols for targeted exams where dose is matched to indication/reason for exam; i.e. extremities or head) *Use of iterative reconstruction technique DLP: 999 mGy-cm FINDINGS: LADLE REPAIRMAN: Unremarkable. LUNGS: Bilateral predominantly lower lobe bronchiectasis is redemonstrated with chronic interstitial prominence. Redemonstration of bibasilar scarring with superimposed atelectasis, increased when compared to the prior examination. Patchy right upper lobe ground-glass airspace opacities, new when compared to the prior examination. Findings could represent atelectasis versus early infiltrates. Somewhat linear atelectasis versus early infiltrates within the left upper lobe. No large, confluent airspace consolidation. The central airways are patent. MEDIASTINUM: No cardiomegaly. No pericardial effusion. No superior mediastinal or hilar lymphadenopathy. Unremarkable thyroid. No thoracic aortic dilatation. Scattered atherosclerotic calcifications. CORONARY ARTERY CALCIFICATION: Present. PLEURA: There is no pleural effusion. No pleural mass or thickening. AXILLA: No lymphadenopathy. UPPER ABDOMEN: Status post cholecystectomy. OSSEOUS STRUCTURES: Unremarkable. CT/CT chest wo IV con IMPRESSION: 1. Bilateral predominantly lower lobe bronchiectasis is redemonstrated with chronic interstitial prominence. Redemonstration of bibasilar scarring with superimposed atelectasis, increased when compared to the prior examination. 2. Patchy right upper lobe ground-glass airspace opacities, new when compared to the prior examination. Findings could represent atelectasis versus early infiltrates. Somewhat linear atelectasis versus early infiltrates within the left upper lobe. No large, confluent airspace consolidation. 3. No lymphadenopathy. Fleischner guidelines were followed.
--- NOTE | ~2023-12-09 | XR_ITS ---
EXAMINATION: XR BILATERAL HIPS WITH AP PELVIS CLINICAL INFORMATION: trauma COMPARISON: 08/05/2018 pelvis radiographs TECHNIQUE: AP view of the pelvis and 2 views of each hip were obtained. FINDINGS: No acute fracture or dislocation. 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 Desiccated stool in the rectum. Calcified phleboliths in the pelvis. Vascular calcification. Degenerative disc disease the visualized lower lumbosacral spine. XR/XR hips GALILEA min 3V IMPRESSION: * No acute osseous abnormality, however if persistent clinical concern or patient is unable to ambulate a CT pelvis could be obtained for further evaluation.
--- NOTE | ~2023-12-09 | XR_ITS ---
EXAMINATION: XR CHEST CLINICAL INFORMATION: Weakness. COMPARISON: CT chest dated 11/07/2023. TECHNIQUE: Frontal view of the chest was obtained. FINDINGS: Trace left-sided pleural effusion with adjacent left lower lobe atelectasis versus infiltrates. Mild vascular crowding which may be due to hypoinflation. No pneumothorax. Stable cardiomediastinal silhouette. XR/XR chest 1V IMPRESSION: Trace left-sided pleural effusion with adjacent left lower lobe atelectasis versus infiltrates, new when compared to the prior CT. Mild vascular crowding which may be due to hypoinflation.
--- NOTE | 2023-12-09 07:30 | ECG_ITS ---
Test Reason : WEAKNESS Blood Pressure : / mmHG Vent. Rate : 105 BPM Atrial Rate : 105 BPM P-R Int : 162 ms QRS Dur : 086 ms QT Int : 302 ms P-R-T Axes : 054 -45 112 degrees QTc Int : 399 ms Sinus tachycardia with occasional Premature ventricular complexes Left anterior fascicular block Nonspecific ST and T wave abnormality Abnormal ECG When compared with ECG of 07-NOV-2023 07:09, Premature ventricular complexes are now Present Vent. rate has increased BY 53 BPM Non-specific change in ST segment in Lateral leads T wave inversion no longer evident in Inferior leads Nonspecific T wave abnormality, worse in Anterolateral leads Referred By: Sheila Blount Electronically Signed By:JESSICA SANDOVAL MD
--- NOTE | 2023-12-09 07:32 | ED_ITS ---
HPI - Extremity Problem General Chief complaint: General Medical Stated complaint: GALILEA LEG PAINFUL W/AMB X2 DAYS PER EMS Source: patient, EMS and old records reviewed Mode of arrival: EMS Limitations: other (poor historian) History of Present Illness ED Provider: MARIA E LANE Narrative: 83 yo female with PMH Of UC, diarrhea, pneumonia, DVT on eliquis, HLD, GERD, chronic leg pain on oxycodone with c/o worsening leg pain x 2 days EMS notes she is refusing her regular pain medications per her son. They gave 80mcg of fentanyl without relief. She is well known to them and seems a little off compared to baseline. The patient cannot tell me much and is just crying out loud on the stretcher. MD Complaint: extremity pain Onset (ago): day(s) (2) Pain Consistency: constant Location: left, right and lower extremity Quality: aching Radiation: none Relieving factors: nothing Exacerbating factors: palpation Associated symptoms: denies other symptoms Related Data Home Medications ?Medication ?Instructions ?Recorded ?Confirmed apixaban 5 mg tablet (Eliquis) 5 mg PO BID 12/02/20 11/15/22 ropinirole 0.5 mg tablet 1 mg PO BEDTIME 12/02/20 11/15/22 atorvastatin 40 mg tablet 1 tab PO BEDTIME 05/11/21 11/15/22 torsemide 20 mg tablet 2 tab PO DAILY 05/11/21 11/15/22 diclofenac sodium 1 % topical gel 1 g topical QID PRN Pain 09/01/22 11/15/22 empagliflozin 10 mg tablet 10 mg PO DAILY 09/01/22 11/15/22 (Jardiance) spironolactone 25 mg tablet 25 mg PO DAILY@0900,1800 09/01/22 11/15/22 thiamine HCl (vitamin B1) 100 mg 100 mg PO DAILY@1200 09/01/22 11/15/22 tablet ropinirole 0.5 mg tablet 0.5 mg PO BID@1200,1800 09/06/22 11/15/22 isosorbide mononitrate 60 mg 60 mg PO BID@0900,1800 11/15/22 11/15/22 tablet,extended release 24 hr duloxetine 20 mg capsule,delayed 20 mg PO DAILY 08/31/23 release gabapentin 400 mg capsule mg PO 08/31/23 metoprolol succinate 50 mg 50 mg PO DAILY 08/31/23 tablet,extended release 24 hr oxycodone 5 mg tablet 5 mg PO BID PRN 08/31/23 Previous Rx's ?Medication ?Instructions ?Recorded nitroglycerin 0.4 mg sublingual 0.4 mg sublingual Q5M PRN chest 09/06/22 tablet pain #30 tabs dextromethorphan-guaifenesin 10 10 ml PO TID #250 mL 11/19/22 mg-100 mg/5 mL oral syrup clotrimazole 1 % topical cream 1 appl topical BID 2 weeks #30 06/01/23 grams clotrimazole 1 % vaginal cream 1 appful vaginal BEDTIME 14 days 06/01/23 (Clotrimazole-7) #90 grams pantoprazole 40 mg tablet,delayed 40 mg PO DAILY #90 tabs 06/12/23 release budesonide 3 mg 9 mg (3 x 3 mg) PO DAILY #270 caps 09/17/23 capsule,delayed,extended release azathioprine 50 mg tablet 100 mg (2 x 50 mg) PO DAILY #180 10/01/23 tabs Allergies Allergy/AdvReac Type Severity Reaction Status Date / Time dogs, cats etc.. Allergy Unknown Unknown Uncoded 12/09/23 07:41 barium Allergy Hives Uncoded 12/09/23 07:41 Review of Systems 2 Review of Systems: ROS unable to be obtained due to patient not giving history PMFSH Past Medical History Source: old records reviewed Medical History History of CHF (congestive heart failure) Constipation Acute proctitis Hemorrhoids Spinal abscess Restless leg syndrome HTN (hypertension) Pre-diabetes DVT (deep venous thrombosis) Colitis Ulcerative colitis Surgical History Hx of shoulder surgery Social History Social History Household Members: Children Household Members Other:: 2 Housing: House Do you presently have visiting nurse or other home services: No Alcohol intake: never Patient Tobacco Use Status: Never used Tobacco Smoked in Last 30 Days: No Use of substances other than those prescribed or required for medical reasons: No Advance Directives: Yes Advance Directives on File: Yes Advance Directives Date on File: 11/16/22 Do you have a plan to hurt others: No Plan service: No Current occupational status: retired Physical Exam 2 Vital Signs: Vital Signs: Last Vital Signs Temp 100.3 F 12/09/23 09:18 Pulse 97 12/09/23 10:55 Resp 20 12/09/23 10:55 BP 130/63 12/09/23 10:55 Pulse Ox 95 12/09/23 10:55 O2 Del Method Nasal Cannula 12/09/23 10:55 O2 Flow Rate 2 12/09/23 10:55 BMI result Body Mass Index 29.7 Appearance: Alert. Oriented X to person and place. Mild acute distress. crying out loud Eyes: Pupils equal, round and reactive to light. ENT: Pharynx normal. Neck: Normal inspection. Neck supple. CVS: tachyardic heart rate and rhythm. Pulses normal. Respiratory: No respiratory distress. Breath sounds normal. Abdomen: Soft and nontender. Skin: Skin cool and dry. pale skin color. Extremities: 1+ pitting edema both lower legs and she has bilateral palpable pedal pulses she has chronic venous stasis changes on both legs and uninfected scabs on anterior shins she has no crepitus compartments are soft and compressible no erythema or warmth Neuro: Oriented X 2 No motor deficit. No sensory deficit. Course Course Course Narrative: currently asleep no longer crying in exam room 811am Reevaluation(s) Reevaluation #1: at this time possible infection suspected given CT scan 843am cefepime ordered cultures ordered 843am Reevaluation #2: did desaturate placed on NC went down to 86% Medications Administered Discontinued Medications Generic Name Dose Route Start Last Admin Trade Name Dayami PRN Reason Stop Dose Admin Acetaminophen 650 mg 12/09/23 09:19 12/09/23 09:33 Acetaminophen 325 Mg Tablet PO 12/09/23 09:20 650 mg ONCE ONE Administration Sodium Chloride 500 mls @ 500 mls/hr 12/09/23 08:36 12/09/23 10:23 Ns IV 12/09/23 09:35 Infused .Q1H ONE Infusion Cefepime HCl 1 gm/ Sodium 50 mls @ 100 mls/hr 12/09/23 08:36 12/09/23 10:23 Chloride IV 12/09/23 09:05 Infused ONCE ONE Infusion Oxycodone HCl 5 mg 12/09/23 07:30 12/09/23 08:18 Oxycodone Hcl Immed Release 5 Mg Tablet PO 12/09/23 07:31 5 mg ONCE ONE Administration Medical Decision Making Medical Decision Making [facility] Narrative: 83 yo female with PMH Of UC, diarrhea, pneumonia, DVT on eliquis, HLD, GERD, chronic leg pain on oxycodone with c/o leg pain x 2 days without known trauma on exam pulses are present she has no signs of infection and I am not getting a good history at this time will obtain basic labs, infl markers, she is more confused than usual UA ordered, CPK ordered - already on DOAC doubt VTE, has pulses acute occlusion and person on DOAC unlikely. She has no signs of infection or compartment syndrome at this time. Differential Diagnosis Differential Diagnoses: The differential diagnosis associated with the presentation includes chronic leg pain, encephalopathy Admission/Observation Consideration of admission/observation: Escalation of care including admission/observation considered given hypoxia and encephalopathy will admit Consult Healthcare Provider Management of the patient was discussed with: Hospitalist (will admit) Lab Data [facility] Lab Attestation statement: I reviewed the patient's lab results. lactic acid improved trop not above delta 12/09/23 08:02 12/09/23 08:02 Labs: Lab Results 12/09/23 12/09/23 12/09/23 Range/Units 08:02 08:05 09:30 WBC 9.4 (4.8-10.8) X10*3/uL RBC 4.76 (4.20-5.50) X10*6/uL Hgb 13.9 (12.0-16.0) g/dl Hct 43.1 (37.0-47.0) % MCV 90.5 (80.0-98.0) fL MCH 29.2 (27.0-33.0) pg MCHC 32.3 (31.0-35.0) g/dl RDW 20.6 H (11.0-16.0) % Plt Count 393 (160-400) X10*3/uL MPV 9.2 L (9.4-12.3) fL Immature Gran % (Auto) 1.4 H (0.0-0.4) % Neut % (Auto) 76.6 H (45-73) % Lymph % (Auto) 7.5 L (20-40) % Elliott % (Auto) 13.9 H (2-11) % Eos % (Auto) 0.1 (0-4) % Baso % (Auto) 0.5 (0-2) % Lymph # (Auto) 0.7 L (1.2-4.9) X10*3/uL Elliott # (Auto) 1.3 H (0.1-1.2) X10*3/uL Eos # (Auto) 0.0 (0.0-0.4) X10*3/uL Baso # (Auto) 0.1 (0.0-0.2) X10*3/uL Abs Immat Gran (auto) 0.13 H (0.00-0.03) X10*3/uL Absolute Neuts (auto) 7.2 (2.0-8.3) x10*3/uL Absolute Nucleated RBC 0.020 H (0.0-0.012) X10*3/uL Nucleated RBC % (auto) 0.2 (0.0-0.2) /100WBC VBG pH 7.42 (7.32-7.43) VBG pCO2 35 mmHg VBG pO2 47 mmHg VBG HCO3 23 (22-26) mmol/L VBG O2 Saturation 74.0 % VBG Base Excess -0.5 mmol/L Sodium 142 (135-145) mmol/L Potassium 3.8 (3.3-5.1) mmol/L Chloride 104 (96-108) mmol/L Carbon Dioxide 20 L (22-29) mmol/L Anion Gap 22 H (12-20) BUN 26 H (9-16) mg/dL Creatinine 1.00 (0.5-1.4) mg/dL Estim Creat Clear Calc 40.8 Estimated GFR 53 Random Glucose 139 H (60-115) mg/dL Lactic Acid 2.1 H* (0.5-2.0) mmol/L Lactic Acid F/U @ 2Hr (0.5-2.0) mmol/L Calcium 9.8 (8.4-10.2) mg/dL Magnesium 2.3 (1.6-2.6) mg/dL Total Bilirubin 1.5 H (0.0-1.0) mg/dL Direct Bilirubin 0.9 H (0.0-0.5) mg/dL AST 22 (5-31) U/L ALT 12 (0-31) U/L Alkaline Phosphatase 78 (39-117) U/L Total Creatine Kinase 27 (26-140) U/L Troponin I High Sens 21.9 H D (<3.5-17.0) ng/L C-Reactive Protein 9.53 H (< or = 0.50) mg/dL B-Natriuretic Peptide 75 (<100) pg/mL Total Protein 6.7 (6.5-8.0) g/dL Albumin 3.4 L (3.5-5.0) g/dL Lipase 15 (8-78) U/L Procalcitonin 0.12 ng/mL Urine Color Yellow Urine Appearance Clear Urine pH 5.5 (5.0-9.0) Ur Specific [place] 1.020 (1.005-1.025) Urine Protein 30 (1+) H (Neg-Trace) mg/dL Urine Glucose (UA) >=1000 H (Negative) mg/dL Urine Ketones 15 (Negative) mg/dL Urine Blood Trace H (Negative) Urine Nitrite Negative (Negative) Ur Leukocyte Esterase Negative (Negative) Urine RBC 0-2 (0-2) /HPF Urine WBC 0-5 (0-5) /HPF Ur Squamous Epith Cells 0-2 (0-2) /HPF Urine Bacteria None Seen (None Seen) Hyaline Casts 0-2 (0-2) /LPF Influenza Type A (PCR) NEGATIVE (Negative) Influenza Type B (PCR) NEGATIVE (Negative) RSV RNA Qual (PCR) NEGATIVE (Negative) SARS-CoV-2 RNA (RT-PCR) NEGATIVE (Negative) 12/09/23 Range/Units 10:21 WBC (4.8-10.8) X10*3/uL RBC (4.20-5.50) X10*6/uL Hgb (12.0-16.0) g/dl Hct (37.0-47.0) % MCV (80.0-98.0) fL MCH (27.0-33.0) pg MCHC (31.0-35.0) g/dl RDW (11.0-16.0) % Plt Count (160-400) X10*3/uL MPV (9.4-12.3) fL Immature Gran % (Auto) (0.0-0.4) % Neut % (Auto) (45-73) % Lymph % (Auto) (20-40) % Elliott % (Auto) (2-11) % Eos % (Auto) (0-4) % Baso % (Auto) (0-2) % Lymph # (Auto) (1.2-4.9) X10*3/uL Elliott # (Auto) (0.1-1.2) X10*3/uL Eos # (Auto) (0.0-0.4) X10*3/uL Baso # (Auto) (0.0-0.2) X10*3/uL Abs Immat Gran (auto) (0.00-0.03) X10*3/uL Absolute Neuts (auto) (2.0-8.3) x10*3/uL Absolute Nucleated RBC (0.0-0.012) X10*3/uL Nucleated RBC % (auto) (0.0-0.2) /100WBC VBG pH (7.32-7.43) VBG pCO2 mmHg VBG pO2 mmHg VBG HCO3 (22-26) mmol/L VBG O2 Saturation % VBG Base Excess mmol/L Sodium (135-145) mmol/L Potassium (3.3-5.1) mmol/L Chloride (96-108) mmol/L Carbon Dioxide (22-29) mmol/L Anion Gap (12-20) BUN (9-16) mg/dL Creatinine (0.5-1.4) mg/dL Estim Creat Clear Calc Estimated GFR Random Glucose (60-115) mg/dL Lactic Acid (0.5-2.0) mmol/L Lactic Acid F/U @ 2Hr 1.0 (0.5-2.0) mmol/L Calcium (8.4-10.2) mg/dL Magnesium (1.6-2.6) mg/dL Total Bilirubin (0.0-1.0) mg/dL Direct Bilirubin (0.0-0.5) mg/dL AST (5-31) U/L ALT (0-31) U/L Alkaline Phosphatase (39-117) U/L Total Creatine Kinase (26-140) U/L Troponin I High Sens 24.0 H (<3.5-17.0) ng/L C-Reactive Protein (< or = 0.50) mg/dL B-Natriuretic Peptide (<100) pg/mL Total Protein (6.5-8.0) g/dL Albumin (3.5-5.0) g/dL Lipase (8-78) U/L Procalcitonin ng/mL Urine Color Urine Appearance Urine pH (5.0-9.0) Ur Specific [place] (1.005-1.025) Urine Protein (Neg-Trace) mg/dL Urine Glucose (UA) (Negative) mg/dL Urine Ketones (Negative) mg/dL Urine Blood (Negative) Urine Nitrite (Negative) Ur Leukocyte Esterase (Negative) Urine RBC (0-2) /HPF Urine WBC (0-5) /HPF Ur Squamous Epith Cells (0-2) /HPF Urine Bacteria (None Seen) Hyaline Casts (0-2) /LPF Influenza Type A (PCR) (Negative) Influenza Type B (PCR) (Negative) RSV RNA Qual (PCR) (Negative) SARS-CoV-2 RNA (RT-PCR) (Negative) Independent Interpretation I performed an independent interpretation of an: EKG, Plain X-Ray and CT Scan (RLL opacity/bronchiectasis no ICH) Interpretation: Rate: 105 Rhythm: sinus tach with PVCs [place]: left Normal P waves. Normal L[place]ZAR[place]. Normal QRS complex. ST T wave : nonspecific ST T wave changes, I and AvL no KELSEY qTC: 399 prior studies: no acute ischemia The study has been interpreted contemporaneously by me. . Radiology Impression Discussion of test interpretation with radiology: I have reviewed the radiologist's reading. External Record Review External record reviewed: Inpatient record Critical Care Time Critical Care Time Critical Care Time: Yes Total Critical Care Time: 45 Attestation: repeat labs, review of records, pain improvement after IV fentanyl, IVF, admission I attest to this time spent taking care of the patient Discharge Plan Discharge Clinical Impression: Encephalopathy acute, Acidosis, lactic Pneumonia Qualifiers: Pneumonia type: due to unspecified organism Laterality: right Lung location: u pper lobe of lung Qualified Code(s): J18.9 - Pneumonia, unspecified organism Patient Disposition: Admitted As Inpatient Print Language: Eritrean
[2023-12-09 08:07] LABS: MANUAL DIFF FLAG NO
[2023-12-09 08:12] LABS: VBG Base Excess -0.5 mmol/L; VBG HCO3 23 mmol/L (22-26); VBG pCO2 35 mmHg; VBG pH 7.42 (7.32-7.43); VBG pO2 47 mmHg
[2023-12-09 08:13] LABS: Basophils Absolute Auto 0.1 X10*3/uL (0.0-0.2); Basophils Percent Auto 0.5 % (0-2); Eosinophils Percent Auto 0.1 % (0-4); Hematocrit 43.1 % (37.0-47.0); Hemoglobin 13.9 g/dl (12.0-16.0); Imm Gran Abs Auto 0.13 X10*3/uL (0.00-0.03); Imm Gran Pct Auto 1.4 % (0.0-0.4); Lymphocytes Absolute Auto 0.7 X10*3/uL (1.2-4.9); Lymphocytes Percent Auto 7.5 % (20-40); Mean Corpuscular HGB Conc 32.3 g/dl (31.0-35.0); Mean Corpuscular Hemoglobin 29.2 pg (27.0-33.0); Mean Corpuscular Volume 90.5 fL (80.0-98.0); Mean Platelet Volume 9.2 fL (9.4-12.3); Monocytes Absolute Auto 1.3 X10*3/uL (0.1-1.2); Monocytes Percent Auto 13.9 % (2-11); NRBC Pct Auto 0.2 /100WBC (0.0-0.2); Neutrophils Absolute Auto 7.2 x10*3/uL (2.0-8.3); Neutrophils Percent Auto 76.6 % (45-73); Platelet Count 393 X10*3/uL (160-400); Red Blood Count 4.76 X10*6/uL (4.20-5.50); Red Cell Distribution Width 20.6 % (11.0-16.0); White Blood Count 9.4 X10*3/uL (4.8-10.8)
[2023-12-09 08:17] LABS: Venous Blood Gas Refer to POC result
[2023-12-09] MEDS: oxyCODONE HCl Immed Release 5 MG TABLET PO ×2 (08:18→17:06)
--- NOTE | 2023-12-09 08:20 | PC.NURSE ---
pt is alert but appears to be slightly confused at times- pt knows she is in a hospital could state the month-thinks its May, ls clear, pt is reporting bilateral lower extremity pain, pain at 10/10, legs are discolored, palpable pedal pulses on the right but very faint on the left, pt keeps moaning out in pain,
[2023-12-09 08:33] LABS: Alanine Aminotransferase 12 U/L (0-31); Albumin Level 3.4 g/dL (3.5-5.0); Alkaline Phosphatase 78 U/L (39-117); Anion Gap 22 (12-20); Aspartate Amino Transferase 22 U/L (5-31); B Type Natriuretic Peptide 75 pg/mL (<100); Bilirubin Direct 0.9 mg/dL (0.0-0.5); Bilirubin Total 1.5 mg/dL (0.0-1.0); Blood Urea Nitrogen 26 mg/dL (9-16); C Reactive Protein 9.53 mg/dL (< or = 0.50); Calcium 9.8 mg/dL (8.4-10.2); Carbon Dioxide 20 mmol/L (22-29); Chloride 104 mmol/L (96-108); Creatinine Clr Calc Pharmacy 40.8; Estimated Glomerular Filt Rate 53; Glucose Random 139 mg/dL (60-115); Lipase 15 U/L (8-78); Magnesium 2.3 mg/dL (1.6-2.6); Potassium 3.8 mmol/L (3.3-5.1); Sodium 142 mmol/L (135-145); Total Protein 6.7 g/dL (6.5-8.0); Troponin-I High Sensitivity 21.9 ng/L (<3.5-17.0)
[2023-12-09 08:34] LABS: Lactic Acid 2.1 mmol/L (0.5-2.0)
[2023-12-09 09:08] LABS: Procalcitonin 0.12 ng/mL
[2023-12-09] MEDS: 0.9 % Sodium Chloride 500 ML IV (09:17)
--- NOTE | 2023-12-09 09:20 | PC.NURSE ---
pt is a really hard stick, ems iv not working had to start a new line, some delay in abx
[2023-12-09] MEDS: cefEPime HCl 1 GM in 0.9 % Sodium Chloride 50 ML IV (09:31)
[2023-12-09] MEDS: Acetaminophen 325 MG TABLET 650 MG PO (09:33)
--- NOTE | 2023-12-09 09:33 | MHC.EDTECH ---
PT is a difficult blood draw, labs delayed due to difficulty obtaining vascular access.
[2023-12-09 09:37] LABS: Appearance Urine Clear; Color Urine Yellow; Glucose Urine UA >=1000 mg/dL (Negative); Leukocyte Esterase Urine Negative (Negative); Nitrite Urine Negative (Negative); PH 5.5 (5.0-9.0); UMIC TRIGGER UACC YES; Urine Blood Trace (Negative); Urine Ketones 15 mg/dL (Negative); Urine Protein 30 (1+) mg/dL (Neg-Trace)
[2023-12-09 09:41] LABS: Bacteria Urine None Seen (None Seen); Hyaline Casts Urine 0-2 /LPF (0-2); RBC Urine 0-2 /HPF (0-2); Squamous Epithelial Cell Urine 0-2 /HPF (0-2); WBC Urine 0-5 /HPF (0-5)
--- NOTE | 2023-12-09 09:45 | PC.NURSE ---
pt's oxygen dropped to 86% when falling asleep, put on 2l via nasal cannual
[2023-12-09 10:05] LABS: Reflex Lactate? Lactic Acid Added
[2023-12-09 10:13] LABS: Influenza A PCR NEGATIVE (Negative); Influenza B PCR NEGATIVE (Negative); Resp Syncy Virus RNA Qual PCR NEGATIVE (Negative); SARS COV2 PCR INHOUSE NEGATIVE (Negative)
[2023-12-09] MEDS: Morphine Sulfate 2 MG/ML CARTRIDGE IVPUSH ×2 (11:26→12:54)
[2023-12-09] MEDS: Azithromycin 500 MG in 0.9 % Sodium Chloride 250 ML 125 MG IV (11:27)
--- NOTE | 2023-12-09 12:12 | PM.IMHP ---
History of Present Illness Date of Service: 12/09/23 Attending physician on admission: [facility] Chief Complaint: Confusion, lethargy Pt is an 83-year-old female with a PMH significant for?ulcerative colitis, hx of DVT on Eliquis, HFpEF, restless leg syndrome/sciatica, chronic leg pain on chronic opioids, HLD who presents to the ED for evaluation of worsening confusion, lethargy, and leg pain?x2 days. Family is at bedside who help supplement HPI, though patient currently appears alert and oriented x3, though with limited ability to provide significant details. Patient apparently has not been eating or drinking much and refusing all home medications for the past 3 days, including her chronic opioids. Family note patient was lethargic yesterday and barely arousable. Today lethargy continued, but patient was inconsolable, crying out in pain though still refusing to take medications. Received 80 mcg of fentanyl from EMS without relief. Patient herself complains only of right posterior thigh pain. Denies shortness of breath or cough. No difficulty breathing. Denies fever, chills. Has had some nausea but no vomiting. Denies abdominal pain. No chest pain/pressure, palpitations In the ED pt with low-grade fever 100.1, tachycardia to 99, and hypoxia as low as 86% on RA. Labs were significant for lactic acid 2.1 with repeat 1.0, bilirubin 1.5, and initial troponin 21.9 with repeat 24.0. No leukocytosis. No significant electrolyte abnormalities. Stable H&H. CXR showed trace left-sided pleural effusion and adjacent left lower lobe atelectasis versus infiltrates, new when compared to prior CT. CT?of chest found new patchy right upper lobe ground-glass airspace opacities representing atelectasis versus early infiltrates and left upper lobe atelectasis versus infiltrates. Also redemonstrated bilateral predominantly lower lobe bronchiectasis with chronic interstitial prominence. Also found increased bibasilar scarring with superimposed atelectasis. Ct of head negative for intracranial hemorrhage or mass effect, but found generalized atrophy and chronic small-vessel white matter ischemic changes. EKG demonstrated sinus tachycardia with occasional PVCs nonspecific ST and T-wave abnormalities. Pt was treated with IVF, acetaminophen, oxycodone, IVF, morphine, cefepime, and azithromycin. Pt will be admitted to the hospital for treatment and further evaluation of acute hypoxic respiratory failure and encephalopathy in the setting of multifocal pneumonia. Review of Systems Review of Systems: Right leg pain Confusion, lethargy Anorexia Medication noncompliance Nausea, no vomiting Denies chest pain/pressure, palpitations No shortness of breath, difficulty breathing Denies fever, chills, abdominal pain [facility] Medical History History of CHF (congestive heart failure) Constipation Acute proctitis Hemorrhoids Spinal abscess Restless leg syndrome HTN (hypertension) Pre-diabetes DVT (deep venous thrombosis) Colitis Ulcerative colitis Surgical History Hx of shoulder surgery Social History Household Members: Children Household Members Other:: 2 Housing: House Do you presently have visiting nurse or other home services: No Alcohol intake: never Patient Tobacco Use Status: Never used Tobacco Smoked in Last 30 Days: No Use of substances other than those prescribed or required for medical reasons: No Advance Directives: Yes Advance Directives on File: Yes Advance Directives Date on File: 11/16/22 Do you have a plan to hurt others: No Plan service: No Current occupational status: retired Meds Allergies Allergy/AdvReac Type Severity Reaction Status Date / Time dogs, cats etc.. Allergy Unknown Unknown Uncoded 12/09/23 07:41 barium Allergy Hives Uncoded 12/09/23 07:41 Active Medications: Current Medications Acetaminophen (Acetaminophen 325 Mg Tablet) 650 mg PO Q6H PRN PRN Reason: Pain, Mild (Pain Scale 1-3) Benzonatate (Benzonatate 100 Mg Capsule) 100 mg PO TID PRN PRN Reason: Cough Docusate Sodium (Docusate Sodium 100 Mg Capsule) 100 mg PO DAILY PRN PRN Reason: Constipation Azithromycin 500 mg/ Sodium (Chloride) 250 mls @ 125 mls/hr IV ONCE ONE Stop: 12/09/23 12:59 Last Admin: 12/09/23 11:27 Dose: 125 mls/hr Ceftriaxone Sodium 1 gm/ (Sodium Chloride) 50 mls @ 100 mls/hr IV Q24H AUDI Azithromycin 500 mg/ Sodium (Chloride) 250 mls @ 125 mls/hr IV Q24H AUDI Melatonin (Melatonin 3 Mg Tablet) 6 mg PO BEDTIME PRN PRN Reason: Insomnia Ondansetron HCl (Ondansetron Hcl 4 Mg/2 Ml Vial) 4 mg IVPUSH Q8H PRN PRN Reason: Nausea and Vomiting Sodium Chloride (0.9 % Sodium Chloride Flush 3 Ml Syringe) 3 ml IVFLUSH QSHIFT [facility] Home Medications ?Medication ?Instructions ?Recorded ?Confirmed ?Last Taken ?Type apixaban 5 mg tablet (Eliquis) 5 mg PO BID 12/02/20 11/15/22 09/06/22 History ropinirole 0.5 mg tablet 1 mg PO BEDTIME 12/02/20 11/15/22 09/05/22 History atorvastatin 40 mg tablet 1 tab PO BEDTIME 05/11/21 11/15/22 08/29/22 History torsemide 20 mg tablet 2 tab PO DAILY 05/11/21 11/15/22 09/06/22 History empagliflozin 10 mg tablet 10 mg PO DAILY 09/01/22 11/15/22 09/06/22 History (Jardiance) spironolactone 25 mg tablet 25 mg PO DAILY@0900,1800 09/01/22 11/15/22 09/05/22 History thiamine HCl (vitamin B1) 100 mg 100 mg PO DAILY@1200 09/01/22 11/15/22 09/06/22 History tablet ropinirole 0.5 mg tablet 0.5 mg PO BID@1200,1800 09/06/22 11/15/22 09/06/22 History isosorbide mononitrate 60 mg 60 mg PO BID@0900,1800 11/15/22 11/15/22 Unknown History tablet,extended release 24 hr duloxetine 20 mg capsule,delayed 20 mg PO BEDTIME 08/31/23 Unknown History release gabapentin 400 mg capsule 800 mg PO TID 08/31/23 Unknown History metoprolol succinate 50 mg 50 mg PO DAILY 08/31/23 Unknown History tablet,extended release 24 hr oxycodone 5 mg tablet 5 mg PO BID PRN Pain 08/31/23 Unknown History azathioprine 50 mg tablet 50 mg PO BID 12/09/23 Unknown History metoprolol succinate 25 mg 25 mg PO DAILY 12/09/23 Unknown History tablet,extended release 24 hr pantoprazole 40 mg tablet,delayed 40 mg PO DAILY@0630 12/09/23 Unknown History release Physical Exam Vital Signs and Narrative: Vital Signs: Last Vital Signs Temp 100.3 F 12/09/23 09:18 Pulse 91 12/09/23 11:20 Resp 20 12/09/23 11:20 BP 125/50 L 12/09/23 11:20 Pulse Ox 95 12/09/23 11:20 O2 Del Method Nasal Cannula 12/09/23 11:20 O2 Flow Rate 2 12/09/23 11:20 BMI result Body Mass Index 29.7 Constitutional: Alert, in no acute distress. Mental Status: Oriented to person, place and time. Eyes: Pupils are equal, round, and reactive to light. Ear, Nose, and Throat: Oropharynx clear, mucous membranes moist. Ears and nose without deformities. Trachea midline. Respiratory: Clear to auscultation bilaterally. No wheezing, rales, or rhonchi. Cardiovascular: S1, S2 regular. No murmurs, rubs, or gallops. Gastrointestinal: Abdomen soft, non-tender, non-distended. Normal bowel sounds. Neurologic: Cranial nerves II-XII are grossly intact bilaterally. No focal neurological deficits. Moves all extremities spontaneously. Skin: Warm, dry. Musculoskeletal: Right hip and knee non-tender to palpation. Preserved active and passive ROM of right knee and hip. Extremities: No edema. Large healing wound on lower right leg. No signs of infection. Psychiatric: Normal mood and affect. Results Labs 12/09/23 08:02 12/09/23 08:02 Labs: Laboratory Results - last 24 hr 12/09/23 12/09/23 12/09/23 08:02 08:05 09:30 MCV 90.5 MCH 29.2 MCHC 32.3 RDW 20.6 H Plt Count 393 MPV 9.2 L Immature Gran % (Auto) 1.4 H Neut % (Auto) 76.6 H Lymph % (Auto) 7.5 L Gaines % (Auto) 13.9 H Eos % (Auto) 0.1 Baso % (Auto) 0.5 Lymph # (Auto) 0.7 L Gaines # (Auto) 1.3 H Eos # (Auto) 0.0 Baso # (Auto) 0.1 Abs Immat Gran (auto) 0.13 H Absolute Neuts (auto) 7.2 Absolute Nucleated RBC 0.020 H Nucleated RBC % (auto) 0.2 VBG pH 7.42 VBG pCO2 35 VBG pO2 47 VBG HCO3 23 VBG O2 Saturation 74.0 VBG Base Excess -0.5 Anion Gap 22 H Estim Creat Clear Calc 40.8 Estimated GFR 53 Random Glucose 139 H Lactic Acid 2.1 H* Lactic Acid F/U @ 2Hr Calcium 9.8 Magnesium 2.3 Total Bilirubin 1.5 H Direct Bilirubin 0.9 H AST 22 ALT 12 Alkaline Phosphatase 78 Total Creatine Kinase 27 Troponin I High Sens 21.9 H D C-Reactive Protein 9.53 H B-Natriuretic Peptide 75 Total Protein 6.7 Albumin 3.4 L Lipase 15 Procalcitonin 0.12 Urine Color Yellow Urine Appearance Clear Urine pH 5.5 Ur Specific [place] 1.020 Urine Protein 30 (1+) H Urine Glucose (UA) >=1000 H Urine Ketones 15 Urine Blood Trace H Urine Nitrite Negative Ur Leukocyte Esterase Negative Urine RBC 0-2 Urine WBC 0-5 Ur Squamous Epith Cells 0-2 Urine Bacteria None Seen Hyaline Casts 0-2 Influenza Type A (PCR) NEGATIVE Influenza Type B (PCR) NEGATIVE RSV RNA Qual (PCR) NEGATIVE SARS-CoV-2 RNA (RT-PCR) NEGATIVE 12/09/23 10:21 MCV MCH MCHC RDW Plt Count MPV Immature Gran % (Auto) Neut % (Auto) Lymph % (Auto) Gaines % (Auto) Eos % (Auto) Baso % (Auto) Lymph # (Auto) Gaines # (Auto) Eos # (Auto) Baso # (Auto) Abs Immat Gran (auto) Absolute Neuts (auto) Absolute Nucleated RBC Nucleated RBC % (auto) VBG pH VBG pCO2 VBG pO2 VBG HCO3 VBG O2 Saturation VBG Base Excess Anion Gap Estim Creat Clear Calc Estimated GFR Random Glucose Lactic Acid Lactic Acid F/U @ 2Hr 1.0 Calcium Magnesium Total Bilirubin Direct Bilirubin AST ALT Alkaline Phosphatase Total Creatine Kinase Troponin I High Sens 24.0 H C-Reactive Protein B-Natriuretic Peptide Total Protein Albumin Lipase Procalcitonin Urine Color Urine Appearance Urine pH Ur Specific [place] Urine Protein Urine Glucose (UA) Urine Ketones Urine Blood Urine Nitrite Ur Leukocyte Esterase Urine RBC Urine WBC Ur Squamous Epith Cells Urine Bacteria Hyaline Casts Influenza Type A (PCR) Influenza Type B (PCR) RSV RNA Qual (PCR) SARS-CoV-2 RNA (RT-PCR) Imaging Radiologist's Impressions: Impressions Chest X-Ray 12/09/23 07:54 IMPRESSION: Trace left-sided pleural effusion with adjacent left lower lobe atelectasis versus infiltrates, new when compared to the prior CT. Mild vascular crowding which may be due to hypoinflation. Chest CT 12/09/23 08:43 IMPRESSION: 1. Bilateral predominantly lower lobe bronchiectasis is redemonstrated with chronic interstitial prominence. Redemonstration of bibasilar scarring with superimposed atelectasis, increased when compared to the prior examination. 2. Patchy right upper lobe ground-glass airspace opacities, new when compared to the prior examination. Findings could represent atelectasis versus early infiltrates. Somewhat linear atelectasis versus early infiltrates within the left upper lobe. No large, confluent airspace consolidation. 3. No lymphadenopathy. Fleischner guidelines were followed. Head CT 12/09/23 08:43 IMPRESSION: No intracranial hemorrhage or mass effect. Generalized atrophy and chronic small vessel white matter ischemic changes. Assessment and Plan (1) Encephalopathy acute: Status: Acute (2) Pneumonia: Qualifiers: Laterality: right Lung location: upper lobe of lung Pneumonia type: due to unspecified organism Qualified Code(s): J18.9 - Pneumonia, unspecified organism Status: Acute Plan Pt is an 83-year-old female with a PMH significant for?ulcerative colitis, hx of DVT on Eliquis, HFpEF, restless leg syndrome/sciatica, chronic leg pain on chronic opioids, HLD who presents to the ED for evaluation of worsening confusion, lethargy, and leg pain?x2 days. Pt will be admitted to the hospital for treatment and further evaluation of acute hypoxic respiratory failure and encephalopathy in the setting of multifocal pneumonia. Acute hypoxic respiratory failure in the setting of multifocal pneumonia Chest of CT evidence possible RUL and NICHOLE infiltrates, desatting as low as 86% on RA in the ED Patient does not meet sepsis criteria: Tachycardia, but no tachypnea fever, or leukocytosis; lactic acid initially 2.1 then WNL at 1.0 after IVF Patient given IVF and started on broad-spectrum antibiotics in the ED Treat with ceftriaxone and azithromycin, started 12/09/2023 Titrate supplement O2>92, wean as tolerated Monitor respiratory status Follow cultures Acute encephalopathy Patient with increased confusion x3 days Likely secondary to multifocal pneumonia CT of head negative acute intracranial pathology Mentation appears improved, but not back to baseline per family Treat as above Monitor mentation Lactic acidosis, resolved Initial lactic acid 2.1 with repeat 1.0 after fluids Most likely secondary to hypoxia, not sepsis Elevated troponins Initial troponin 21.9 with repeat flat at 24.0 EKG shows sinus tachycardia with occasional PVCs and nonspecific ST and T-wave abnormalities Patient asymptomatic Likely type 2 secondary to increased demand Monitor on telemetry Tachycardia Patient with heart rate as high as 105 in ED Likely secondary to pain, not sepsis Fall at home Pt with fall at home on right side 2 months ago Since then reduced mobility, increased pain Did not get evaluated for fall; no imaging taken No focal tenderness of right hip or knee Active and passive ROM preserved Will get hip/pelvis x-ray Continue home oxy, IV analgesics prn PT consult HFpEF Does not appear to be in acute exacerbation Continue home diuretics, metoprolol Hx of DVT Eliquis HLD Statin Restless leg syndrome Continue home ropinirole Full Code Attending:?Dr. Dasilva DVT Prophylaxis: On Eliquis Pt will require a hospitalization of at least two nights for treatment of?acute hypoxic respiratory failure and encephalopathy in the setting of multifocal pneumonia. Patient will require hospitalization for administration of IV antibiotics, supplemental oxygen, and close monitoring of respiratory and mental status, as well as PT evaluation. Quality Stroke Does the patient have a stroke diagnosis?: No VTE Prior VTE?: No VTE Risk Level:: Medical - moderate - high VTE Device Contraindication: Treatment Not Indicated VTE Drug Contraindication: N/A - Med Ordered
--- NOTE | 2023-12-09 12:23 | PC.NURSE ---
pt returned from Imaging, pt continues to moanLAKE evaluated pt at bedside, pt to be admitted to [facility], pending admission orders
--- NOTE | 2023-12-09 14:12 | PHA.MEDREC ---
Pharmacy Consult ? Medication Reconciliation Pharmacy has completed the medication reconciliation.
--- NOTE | 2023-12-09 14:37 | MHC.CM.PN ---
IMM DELIVERED TO DAUGHTER DONY CARCAMO, REQUESTS COPY BE SENT VIA MAIL. PT IS UNABLE TO PARTICIPATE DUE TO LETHARGY. PT LIVES WITH HER SON RALPH. PT USES A ROLLATOR FOR MOBILITY.PER DAUGHTER, PT IS SEDENTARY AT HOME. NO CURRENT SERVICES BUT BELIEVES SHE HAS [facility] IN THE PAST. +HCP ON FILE. PCP DR. PINK DP: HOME WITH SERVICES VS STR? CM WILL AWAIT P.T. DETERMINATION. FAMILY WILL TRANSPORT HOME. CM WILL CONTINUE TO FOLLOW FOR DC PLAN.
[2023-12-09] MEDS: rOPINIRole HCL 0.5 MG TABLET PO (17:04)
[2023-12-09] MEDS: Isosorbide Mononitrate 60 MG TAB.ER.24H PO (17:05)
[2023-12-09] MEDS: Metoprolol Succinate ER 50 MG TAB.ER.24H PO (17:05)
[2023-12-09] MEDS: Apixaban 5 MG TABLET PO (17:05)
[2023-12-09] MEDS: Torsemide 20 MG TABLET 40 MG PO (17:06)
[2023-12-09] MEDS: Gabapentin 400 MG CAPSULE 800 MG PO (17:06)
[2023-12-09] MEDS: Metoprolol Succinate ER 25 MG TAB.ER.24H PO (17:14)
[2023-12-09] MEDS: Empagliflozin 10 MG TABLET PO (17:14)
[2023-12-09] MEDS: 0.9 % Sodium Chloride Flush 3 ML SYRINGE IVFLUSH (17:15)
[2023-12-09] MEDS: Spironolactone 25 MG TABLET PO (17:16)
--- NOTE | 2023-12-09 17:29 | PC.NURSE ---
pt medicated per MAR- oxy 5mg given for 01/29 pain, pt repositioned in bed, call gustafson within reach
--- NOTE | 2023-12-09 21:20 | PC.NURSE ---
Addendum entered by Suleman Grey RN 12/09/23 22:05: Per MD Marie, pt made NPO, Swallow Screen failed. Original Note: Attempted to medicate pt with 9pm meds, pt not tolerating po well, vomited after initial batch of medications given despite crushing meds appropriate for crushing in applesauce. MD Marie notified.
[2023-12-09] MEDS: ondansetron HCL 4 MG/2 ML VIAL IVPUSH (21:48)
--- NOTE | 2023-12-09 23:16 | PC.NURSE ---
After initial complaints of pain in bilat legs and inability to swallow, pt now sleeping, no acute distress, respirations even and unlabored.
[2023-12-10] VITALS (11 sets, daily range): BP systolic 72–127; BP diastolic 38–60; PULSE 70–104; RESP 13–20; TEMP 36.3–37.2; O2SAT 90–98; BMI 30.1
[2023-12-10] MEDS: Morphine Sulfate 2 MG/ML CARTRIDGE 4 MG IVPUSH (02:23)
[2023-12-10 05:06] LABS: Hematocrit 40.3 % (37.0-47.0); Hemoglobin 12.8 g/dl (12.0-16.0); Mean Corpuscular HGB Conc 31.8 g/dl (31.0-35.0); Mean Corpuscular Hemoglobin 29.5 pg (27.0-33.0); Mean Corpuscular Volume 92.9 fL (80.0-98.0); Mean Platelet Volume 9.5 fL (9.4-12.3); NRBC Pct Auto 0.2 /100WBC (0.0-0.2); Platelet Count 380 X10*3/uL (160-400); Red Blood Count 4.34 X10*6/uL (4.20-5.50); White Blood Count 10.2 X10*3/uL (4.8-10.8)
[2023-12-10 05:20] LABS: Anion Gap 20 (12-20); Blood Urea Nitrogen 26 mg/dL (9-16); Calcium 9.3 mg/dL (8.4-10.2); Carbon Dioxide 22 mmol/L (22-29); Chloride 105 mmol/L (96-108); Creatinine Clr Calc Pharmacy 30.3; Estimated Glomerular Filt Rate 37; Glucose Random 104 mg/dL (60-115); Potassium 4.4 mmol/L (3.3-5.1); Sodium 143 mmol/L (135-145)
[2023-12-10] MEDS: cefTRIAXone sodium 1 GM in 0.9 % Sodium Chloride 50 ML IV (08:27)
[2023-12-10] MEDS: Apixaban 5 MG TABLET PO ×2 (08:45→20:53)
[2023-12-10] MEDS: 0.9 % Sodium Chloride Flush 3 ML SYRINGE IVFLUSH (08:47)
[2023-12-10] MEDS: Metoprolol Succinate ER 25 MG TAB.ER.24H PO (10:08)
[2023-12-10] MEDS: azaTHIOprine 50 MG TABLET PO ×2 (10:08→20:55)
[2023-12-10] MEDS: Gabapentin 400 MG CAPSULE 800 MG PO ×3 (10:09→20:53)
[2023-12-10] MEDS: Isosorbide Mononitrate 60 MG TAB.ER.24H PO ×2 (10:09→18:53)
[2023-12-10] MEDS: Empagliflozin 10 MG TABLET PO (10:10)
[2023-12-10] MEDS: Acetaminophen 325 MG TABLET 650 MG PO (10:10)
[2023-12-10] MEDS: Torsemide 20 MG TABLET 40 MG PO (10:10)
[2023-12-10] MEDS: Metoprolol Succinate ER 50 MG TAB.ER.24H PO (10:11)
[2023-12-10] MEDS: 0.9 % Sodium Chloride 1,000 ML 999 ML IVCONT (10:57)
--- NOTE | 2023-12-10 11:08 | PC.NURSE ---
Spironolactone not given as BP was 72/38, aware and orders given
--- NOTE | 2023-12-10 11:13 | PC.NURSE ---
Patient is able to swallow all her meds PO without any difficulty. Resume diet. aware
--- NOTE | 2023-12-10 11:58 | P.PNIM_ITS ---
Subjective Subjective Date of Service: 12/10/23 Interval History: f/u on acute hypoxic resp failure, Pneumonia, encephalpathy interval history: seemingly better today, less hypoxic, an episode of low BP, no SIRS criteria given IVF with good effect Physical Exam 2 Vital Signs: Vital Signs: Last Vital Signs Temp 98.8 F 12/10/23 10:59 Pulse 79 12/10/23 10:59 Resp 20 12/10/23 10:59 BP 93/48 L 12/10/23 10:59 Pulse Ox 90 L 12/10/23 10:59 O2 Del Method Nasal Cannula 12/10/23 10:59 O2 Flow Rate 2 12/10/23 10:59 BMI result Body Mass Index 29.7 General: AO to self, no acute distress Resp: CTA bilateral CVS: S1,S2,RRR GI: +BS, NT, no distention Skin: bruses on arm Neuro: motor grossly intact Psych: appropriate affect Objective Data Active Medications Acetaminophen (Acetaminophen 325 Mg Tablet) 650 mg PO Q6H PRN PRN Reason: Pain, Mild (Pain Scale 1-3) Last Admin: 12/10/23 10:10 Dose: 650 mg Documented By: LEE ANN Apixaban (Apixaban 5 Mg Tablet) 5 mg PO BID [facility] Last Admin: 12/10/23 08:45 Dose: 5 mg Documented By: LEE ANN Atorvastatin Calcium (Atorvastatin Calcium 40 Mg Tablet) 40 mg PO BEDTIME [facility] Last Admin: 12/09/23 22:04 Dose: Not Given Documented By: DEVENDRA Non-Admin Reason: Pt vomitted Azathioprine (Azathioprine 50 Mg Tablet) 50 mg PO BID [facility] Last Admin: 12/10/23 10:08 Dose: 50 mg Documented By: LEE ANN Benzonatate (Benzonatate 100 Mg Capsule) 100 mg PO TID PRN PRN Reason: Cough Docusate Sodium (Docusate Sodium 100 Mg Capsule) 100 mg PO DAILY PRN PRN Reason: Constipation Duloxetine HCl (Duloxetine Hcl 20 Mg Capsule.Dr) 20 mg PO BEDTIME [facility] Last Admin: 12/09/23 22:04 Dose: Not Given Documented By: DEVENDRA Non-Admin Reason: Pt vomitted Empagliflozin (Empagliflozin 10 Mg Tablet) 10 mg PO DAILY [facility] Last Admin: 12/10/23 10:10 Dose: 10 mg Documented By: LEE ANN Gabapentin (Gabapentin 400 Mg Capsule) 800 mg PO TID [facility] Last Admin: 12/10/23 10:09 Dose: 800 mg Documented By: LEE ANN Comments: [id number] Ceftriaxone Sodium 1 gm/ (Sodium Chloride) 50 mls @ 100 mls/hr IV Q24H [facility] Last Admin: 12/10/23 08:27 Dose: 100 mls/hr Documented By: LEE ANN Azithromycin 500 mg/ Sodium (Chloride) 250 mls @ 125 mls/hr IV Q24H [facility] Sodium Chloride (Ns) 1,000 mls @ 999 mls/hr IVCONT .Q1H1M [facility] Stop: 12/10/23 13:00 Last Admin: 12/10/23 10:57 Dose: 999 mls/hr Documented By: INGRID Isosorbide Mononitrate (Isosorbide Mononitrate 60 Mg Tab.Er.24h) 60 mg PO BID@0900,1800 [facility]; Protocol Last Admin: 12/10/23 10:09 Dose: 60 mg Documented By: LEE ANN Melatonin (Melatonin 3 Mg Tablet) 6 mg PO BEDTIME PRN PRN Reason: Insomnia Metoprolol Succinate (Metoprolol Succinate Er 25 Mg Tab.Er.24h) 25 mg PO DAILY [facility]; Protocol Last Admin: 12/10/23 10:08 Dose: 25 mg Documented By: LEE ANN Metoprolol Succinate (Metoprolol Succinate Er 50 Mg Tab.Er.24h) 50 mg PO DAILY [facility]; Protocol Last Admin: 12/10/23 10:11 Dose: 50 mg Documented By: LEE ANN Morphine Sulfate (Morphine Sulfate 2 Mg/Ml Cartridge) 4 mg IVPUSH Q4H PRN; Protocol PRN Reason: Pain, Severe (Pain Scale 7-10) Last Admin: 12/10/23 02:23 Dose: 4 mg Documented By: DEVENDRA Nitroglycerin (Nitroglycerin 0.4 Mg Tab.Subl) 0.4 mg SUBLINGUAL Q5M PRN PRN Reason: chest pain Non-Formulary Medication (Budesonide) 9 mg PO DAILY [facility] Omeprazole (Omeprazole 20 Mg Capsule.Dr) 20 mg PO DAILY@0630 [facility] Ondansetron HCl (Ondansetron Hcl 4 Mg/2 Ml Vial) 4 mg IVPUSH Q8H PRN PRN Reason: Nausea and Vomiting Last Admin: 12/09/23 21:48 Dose: 4 mg Documented By: DEVENDRA Oxycodone HCl (Oxycodone Hcl Immed Release 5 Mg Tablet) 5 mg PO BID PRN PRN Reason: Pain, Severe (Pain Scale 7-10) Last Admin: 12/09/23 17:06 Dose: 5 mg Documented By: YVETTE Ropinirole HCl (Ropinirole Hcl 0.5 Mg Tablet) 0.5 mg PO BID@1200,1800 [facility] Last Admin: 12/09/23 17:04 Dose: 0.5 mg Documented By: YVETTE Ropinirole HCl (Ropinirole Hcl 1 Mg Tablet) 1 mg PO BEDTIME [facility] Last Admin: 12/09/23 22:05 Dose: Not Given Documented By: DEVENDRA Non-Admin Reason: Pt vomitted Sodium Chloride (0.9 % Sodium Chloride Flush 3 Ml Syringe) 3 ml IVFLUSH QSHIFT [facility] Last Admin: 12/10/23 08:47 Dose: 3 ml Documented By: LEE ANN Spironolactone (Spironolactone 25 Mg Tablet) 25 mg PO DAILY@0900,1800 [facility]; Protocol Last Admin: 12/09/23 17:16 Dose: 25 mg Documented By: YVETTE Torsemide (Torsemide 20 Mg Tablet) 40 mg PO DAILY [facility]; Protocol Last Admin: 12/10/23 10:10 Dose: 40 mg Documented By: LEE ANN Labs 12/10/23 04:20 12/10/23 04:20 Labs: Laboratory Results - last 24 hr 12/10/23 04:20 MCV 92.9 MCH 29.5 MCHC 31.8 RDW 21.0 H Plt Count 380 MPV 9.5 Absolute Nucleated RBC 0.020 H Nucleated RBC % (auto) 0.2 Anion Gap 20 Estim Creat Clear Calc 30.3 Estimated GFR 37 Random Glucose 104 Calcium 9.3 Microbiology Microbiology Results: Microbiology 12/09/23 09:15 Blood Culture - Preliminary Blood - Venous No growth after 24 hours. 12/09/23 09:05 Blood Culture - Preliminary Blood - Venous No growth after 24 hours. Assessment and Plan (1) Pneumonia: Status: Acute Plan 83-year-old female with a PMH significant for?ulcerative colitis, hx of DVT on Eliquis, HFpEF, restless leg syndrome/sciatica, chronic leg pain on chronic opioids, HLD who presents to the ED for evaluation of worsening confusion, lethargy, and leg pain?x2 days. Pt will be admitted to the hospital for treatment and further evaluation of acute hypoxic respiratory failure and encephalopathy in the setting of multifocal pneumonia. Acute hypoxic respiratory failure in the setting of multifocal pneumonia--hypoxia improved. Chest of CT evidence possible RUL and NICHOLE infiltrates, desatting as low as 86% on RA in the ED Patient does not meet sepsis criteria: Tachycardia, but no tachypnea fever, or leukocytosis; lactic acid initially 2.1 then WNL at 1.0 after IVF Patient given IVF and started on broad-spectrum antibiotics in the ED Treat with ceftriaxone and azithromycin, started 12/09/2023 Titrate supplement O2>92, wean as tolerated Monitor respiratory status Follow cultures Hypotension this morning--does not meet SIRS criteria, and therefore not d/t sepsisresponded to IVF, will ceck lactic acid, repeat culture Acute encephalopathy Patient with increased confusion x3 days Likely secondary to multifocal pneumonia CT of head negative acute intracranial pathology Mentation appears to be improving, but not back to baseline per family Treat as above Monitor mentation Lactic acidosis, resolved Initial lactic acid 2.1 with repeat 1.0 after fluids Most likely secondary to hypoxia, not sepsis Elevated troponins Initial troponin 21.9 with repeat flat at 24.0 EKG shows sinus tachycardia with occasional PVCs and nonspecific ST and T-wave abnormalities Patient asymptomatic Likely type 2 secondary to increased demand Monitor on telemetry Tachycardia--resolved Fall at home Pt with fall at home on right side 2 months ago Since then reduced mobility, increased pain Did not get evaluated for fall; no imaging taken No focal tenderness of right hip or knee Active and passive ROM preserved Will get hip/pelvis x-ray Continue home oxy, IV analgesics prn PT consult HFpEF Does not appear to be in acute exacerbation Continue home diuretics, metoprolol---but hold in light of Hypotension Hx of DVT Eliquis HLD Statin Restless leg syndrome Continue home ropinirole Full Code Attending:?Dr. Dasilva DVT Prophylaxis: On Eliquis need for inpatient for treatment of?acute hypoxic respiratory failure and encephalopathy in the setting of multifocal pneumonia. Patient will require hospitalization for administration of IV antibiotics, supplemental oxygen, and close monitoring of respiratory and mental status, as well as PT evaluation Quality Stroke Does the patient have a stroke diagnosis?: No VTE Prior VTE?: No VTE Risk Level:: Medical - moderate - high VTE Device Contraindication: Treatment Not Indicated VTE Drug Contraindication: N/A - Med Ordered
[2023-12-10] MEDS: Azithromycin 500 MG in 0.9 % Sodium Chloride 250 ML 125 MG IV (12:21)
[2023-12-10] MEDS: Omeprazole 20 MG CAPSULE.DR PO (12:21)
[2023-12-10] MEDS: 0.9 % Sodium Chloride 2,280 ML 2280 ML IV (12:31)
[2023-12-10 12:47] LABS: Lactic Acid 1.1 mmol/L (0.5-2.0)
--- NOTE | 2023-12-10 15:57 | PC.NURSE ---
Requip given late as no order was in for BID
--- NOTE | 2023-12-10 16:29 | PC.NURSE ---
Requip medication missed at 12 noon, cannot chart against. Attending aware
--- NOTE | 2023-12-10 16:43 | MHC.EDTECH ---
pt cleaned and changed, bed changed, warm blanket given, new purewick given, pt has no further complaints
[2023-12-10] MEDS: Atorvastatin Calcium 40 MG TABLET PO (20:54)
[2023-12-10] MEDS: DULoxetine HCl 20 MG CAPSULE.DR PO (20:54)
[2023-12-10] MEDS: rOPINIRole HCL 1 MG TABLET PO (20:54)
[2023-12-11] VITALS (9 sets, daily range): BP systolic 102–126; BP diastolic 52–69; PULSE 66–85; RESP 17–21; TEMP 36.1–37.1; O2SAT 93–98
[2023-12-11] MEDS: Omeprazole 20 MG CAPSULE.DR PO (06:27)
[2023-12-11] MEDS: azaTHIOprine 50 MG TABLET PO ×2 (09:15→23:42)
[2023-12-11] MEDS: Gabapentin 400 MG CAPSULE 800 MG PO ×3 (09:16→23:41)
[2023-12-11] MEDS: Empagliflozin 10 MG TABLET PO (09:16)
[2023-12-11] MEDS: Metoprolol Succinate ER 25 MG TAB.ER.24H PO (09:16)
[2023-12-11] MEDS: Isosorbide Mononitrate 60 MG TAB.ER.24H PO ×2 (09:16→17:34)
[2023-12-11] MEDS: Torsemide 20 MG TABLET 40 MG PO (09:16)
[2023-12-11] MEDS: Metoprolol Succinate ER 50 MG TAB.ER.24H PO (09:16)
[2023-12-11] MEDS: cefTRIAXone sodium 1 GM in 0.9 % Sodium Chloride 50 ML IV (09:17)
[2023-12-11] MEDS: 0.9 % Sodium Chloride Flush 3 ML SYRINGE IVFLUSH ×2 (09:17→23:43)
[2023-12-11] MEDS: Nystatin Powder 15 GM BOTTLE 1 APPL TOPICAL (09:25)
--- NOTE | 2023-12-11 10:21 | P.PNIM_ITS ---
Subjective Subjective Date of Service: 12/11/23 Interval History: f/u on acute hypoxic resp failure, Pneumonia, encephalpathy interval history: seemingly better today, less hypoxic, an episode of low BP, no SIRS criteria given IVF with good effect Physical Exam 2 Vital Signs: Vital Signs: Last Vital Signs Temp 97.3 F 12/11/23 07:06 Pulse 71 12/11/23 09:16 Resp 20 12/11/23 07:06 BP 124/56 L 12/11/23 09:16 Pulse Ox 95 12/11/23 07:06 O2 Del Method Nasal Cannula 12/11/23 07:06 O2 Flow Rate 2 12/11/23 07:06 BMI result Body Mass Index 30.1 General: AO X 3, no acute distress Resp: CTA bilateral CVS: S1,S2,RRR GI: +BS, NT, no distention Skin: No rash Neuro: motor grossly intact Psych: appropriate affect Objective Data Active Medications Acetaminophen (Acetaminophen 325 Mg Tablet) 650 mg PO Q6H PRN PRN Reason: Pain, Mild (Pain Scale 1-3) Last Admin: 12/10/23 10:10 Dose: 650 mg Documented By: LEE ANN Apixaban (Apixaban 5 Mg Tablet) 5 mg PO BID [facility] Last Admin: 12/10/23 20:53 Dose: 5 mg Documented By: SOCORRO Atorvastatin Calcium (Atorvastatin Calcium 40 Mg Tablet) 40 mg PO BEDTIME [facility] Last Admin: 12/10/23 20:54 Dose: 40 mg Documented By: SOCORRO Azathioprine (Azathioprine 50 Mg Tablet) 50 mg PO BID [facility] Last Admin: 12/11/23 09:15 Dose: 50 mg Documented By: ROBERTO Benzonatate (Benzonatate 100 Mg Capsule) 100 mg PO TID PRN PRN Reason: Cough Docusate Sodium (Docusate Sodium 100 Mg Capsule) 100 mg PO DAILY PRN PRN Reason: Constipation Duloxetine HCl (Duloxetine Hcl 20 Mg Capsule.) 20 mg PO BEDTIME [facility] Last Admin: 12/10/23 20:54 Dose: 20 mg Documented By: SOCORRO Empagliflozin (Empagliflozin 10 Mg Tablet) 10 mg PO DAILY [facility] Last Admin: 12/11/23 09:16 Dose: 10 mg Documented By: ROBERTO Gabapentin (Gabapentin 400 Mg Capsule) 800 mg PO TID [facility] Last Admin: 12/11/23 09:16 Dose: 800 mg Documented By: ROBERTO Ceftriaxone Sodium 1 gm/ (Sodium Chloride) 50 mls @ 100 mls/hr IV Q24H [facility] Last Admin: 12/11/23 09:17 Dose: 100 mls/hr Documented By: ROBERTO Azithromycin 500 mg/ Sodium (Chloride) 250 mls @ 125 mls/hr IV Q24H [facility] Last Infusion: 12/10/23 13:00 Dose: 0 mls/hr Documented By: LEE ANN Isosorbide Mononitrate (Isosorbide Mononitrate 60 Mg Tab.Er.24h) 60 mg PO BID@0900,1800 [facility]; Protocol Last Admin: 12/11/23 09:16 Dose: 60 mg Documented By: ROBERTO Melatonin (Melatonin 3 Mg Tablet) 6 mg PO BEDTIME PRN PRN Reason: Insomnia Metoprolol Succinate (Metoprolol Succinate Er 25 Mg Tab.Er.24h) 25 mg PO DAILY [facility]; Protocol Last Admin: 12/11/23 09:16 Dose: 25 mg Documented By: ROBERTO Metoprolol Succinate (Metoprolol Succinate Er 50 Mg Tab.Er.24h) 50 mg PO DAILY [facility]; Protocol Last Admin: 12/11/23 09:16 Dose: 50 mg Documented By: ROBERTO Morphine Sulfate (Morphine Sulfate 2 Mg/Ml Cartridge) 4 mg IVPUSH Q4H PRN; Protocol PRN Reason: Pain, Severe (Pain Scale 7-10) Last Admin: 12/10/23 02:23 Dose: 4 mg Documented By: DEVENDRA Nitroglycerin (Nitroglycerin 0.4 Mg Tab.Subl) 0.4 mg SUBLINGUAL Q5M PRN PRN Reason: chest pain Non-Formulary Medication (Budesonide) 9 mg PO DAILY [facility] Nystatin (Nystatin Powder 15 Gm Bottle) 1 appl TOPICAL BID [facility]; Protocol Last Admin: 12/11/23 09:25 Dose: 1 appl Documented By: ROBERTO Omeprazole (Omeprazole 20 Mg Capsule.Dr) 20 mg PO DAILY@0630 [facility] Last Admin: 12/11/23 06:27 Dose: 20 mg Documented By: SOCORRO Ondansetron HCl (Ondansetron Hcl 4 Mg/2 Ml Vial) 4 mg IVPUSH Q8H PRN PRN Reason: Nausea and Vomiting Last Admin: 12/09/23 21:48 Dose: 4 mg Documented By: DEVENDRA Oxycodone HCl (Oxycodone Hcl Immed Release 5 Mg Tablet) 5 mg PO BID PRN PRN Reason: Pain, Severe (Pain Scale 7-10) Last Admin: 12/09/23 17:06 Dose: 5 mg Documented By: YVETTE Ropinirole HCl (Ropinirole Hcl 0.5 Mg Tablet) 0.5 mg PO BID@1200,1800 [facility] Last Admin: 12/09/23 17:04 Dose: 0.5 mg Documented By: YVETTE Ropinirole HCl (Ropinirole Hcl 1 Mg Tablet) 1 mg PO BEDTIME [facility] Last Admin: 12/10/23 20:54 Dose: 1 mg Documented By: SOCORRO Sodium Chloride (0.9 % Sodium Chloride Flush 3 Ml Syringe) 3 ml IVFLUSH QSHIFT [facility] Last Admin: 12/11/23 09:17 Dose: 3 ml Documented By: ROBERTO Spironolactone (Spironolactone 25 Mg Tablet) 25 mg PO DAILY@0900,1800 [facility]; Protocol Last Admin: 12/09/23 17:16 Dose: 25 mg Documented By: YVETTE Torsemide (Torsemide 20 Mg Tablet) 40 mg PO DAILY [facility]; Protocol Last Admin: 12/11/23 09:16 Dose: 40 mg Documented By: ROBERTO Labs 12/10/23 04:20 12/10/23 04:20 Labs: Laboratory Results - last 24 hr 12/10/23 12:16 Lactic Acid 1.1 Microbiology Microbiology Results: Microbiology 12/09/23 09:15 Blood Culture - Preliminary Blood - Venous No growth after 24 hours. 12/09/23 09:05 Blood Culture - Preliminary Blood - Venous No growth after 24 hours. Assessment and Plan (1) Pneumonia: Status: Acute Plan 83-year-old female with a PMH significant for?ulcerative colitis, hx of DVT on Eliquis, HFpEF, restless leg syndrome/sciatica, chronic leg pain on chronic opioids, HLD who presents to the ED for evaluation of worsening confusion, lethargy, and leg pain?x2 days. Pt will be admitted to the hospital for treatment and further evaluation of acute hypoxic respiratory failure and encephalopathy in the setting of multifocal pneumonia. Acute hypoxic respiratory failure in the setting of multifocal pneumonia--hypoxia improved. -wean of O2 -continue Ceftriaxone and Azithro 12/08 -cultures negative Hypotension this morning--not due to sepsis, resolved with IVF Acute encephalopathy related to acute illness above, improved and back to baseline, ct negative Lactic acidosis d/t hypoxia, resolved Elevated troponins d/t to acute illness Initial troponin 21.9 with repeat flat at 24.0, non ischemic changes on ecg, EKG shows sinus tachycardia with occasional PVCs and nonspecific ST and T-wave abnormalities Tachycardia--resolved Fall at home, negative fracture on xray PT eval HFpEF--compensated, continue home diuretics Hx of DVT Eliquis HLD Statin Restless leg syndrome Continue home ropinirole Full Code Attending:?Dr. Dasilva DVT Prophylaxis: On Eliquis need for inpatient for treatment of?acute hypoxic respiratory failure and encephalopathy in the setting of multifocal pneumonia. Patient will require hospitalization for administration of IV antibiotics, supplemental oxygen, and close monitoring of respiratory and mental status, as well as PT evaluation PT recommends STR Quality Stroke Does the patient have a stroke diagnosis?: No VTE Prior VTE?: No VTE Risk Level:: Medical - moderate - high VTE Device Contraindication: Treatment Not Indicated VTE Drug Contraindication: N/A - Med Ordered
[2023-12-11] MEDS: rOPINIRole HCL 0.5 MG TABLET PO ×2 (11:24→17:34)
[2023-12-11] MEDS: Azithromycin 500 MG in 0.9 % Sodium Chloride 250 ML 125 MG IV (11:25)
[2023-12-11] MEDS: Spironolactone 25 MG TABLET PO ×2 (11:28→17:34)
--- NOTE | 2023-12-11 14:19 | MHC.CM.PN ---
EMR reviewed and per MD rounds, pt is not medically cleared for discharge today due to management of multi-focal pneumonia. PT is recommending STR. This CM met with pt to discuss and she is adamant about not going to rehab, she states she wants to go home with [facility] services.
[2023-12-11] MEDS: oxyCODONE HCl Immed Release 5 MG TABLET PO (18:41)
[2023-12-11] MEDS: Atorvastatin Calcium 40 MG TABLET PO (23:41)
[2023-12-11] MEDS: Benzonatate 100 MG CAPSULE PO (23:41)
[2023-12-11] MEDS: Melatonin 3 MG TABLET 6 MG PO (23:41)
[2023-12-11] MEDS: DULoxetine HCl 20 MG CAPSULE.DR PO (23:42)
[2023-12-11] MEDS: Docusate Sodium 100 MG CAPSULE PO (23:42)
[2023-12-11] MEDS: Acetaminophen 325 MG TABLET 650 MG PO (23:42)
[2023-12-11] MEDS: rOPINIRole HCL 1 MG TABLET PO (23:42)
[2023-12-11] MEDS: Apixaban 5 MG TABLET PO (23:42)
[2023-12-11] MEDS: Morphine Sulfate 2 MG/ML CARTRIDGE 4 MG IVPUSH (23:52)
[2023-12-12] VITALS (16 sets, daily range): BP systolic 70–121; BP diastolic 40–69; PULSE 56–83; RESP 14–19; TEMP 36.2–36.6; O2SAT 92–97
--- NOTE | 2023-12-12 | ECG_ITS ---
Test Reason : Hypotension Blood Pressure : / mmHG Vent. Rate : 074 BPM Atrial Rate : 074 BPM P-R Int : 204 ms QRS Dur : 096 ms QT Int : 406 ms P-R-T Axes : 084 -31 009 degrees QTc Int : 450 ms Sinus rhythm with Premature supraventricular complexes Left axis deviation Low voltage QRS Possible Anterolateral infarct , age undetermined Abnormal ECG When compared with ECG of 09-DEC-2023 07:44, Significant changes have occurred Referred By: Krishan Dasilva Electronically Signed By:JESSIAC SANDOVAL MD
[2023-12-12] MEDS: Omeprazole 20 MG CAPSULE.DR PO (06:31)
[2023-12-12] MEDS: Acetaminophen 325 MG TABLET 650 MG PO (06:31)
[2023-12-12] MEDS: Morphine Sulfate 2 MG/ML CARTRIDGE 4 MG IVPUSH (06:32)
[2023-12-12 06:51] LABS: Anion Gap 13 (12-20); Blood Urea Nitrogen 26 mg/dL (9-16); Calcium 8.8 mg/dL (8.4-10.2); Carbon Dioxide 27 mmol/L (22-29); Chloride 99 mmol/L (96-108); Creatinine Clr Calc Pharmacy 36.4; Estimated Glomerular Filt Rate 46; Glucose Random 119 mg/dL (60-115); Potassium 3.7 mmol/L (3.3-5.1); Sodium 135 mmol/L (135-145)
[2023-12-12] MEDS: Isosorbide Mononitrate 60 MG TAB.ER.24H PO (08:22)
[2023-12-12] MEDS: Metoprolol Succinate ER 25 MG TAB.ER.24H PO (08:22)
[2023-12-12] MEDS: Apixaban 5 MG TABLET PO ×2 (08:22→21:47)
[2023-12-12] MEDS: Gabapentin 400 MG CAPSULE 800 MG PO (08:23)
[2023-12-12] MEDS: cefTRIAXone sodium 1 GM in 0.9 % Sodium Chloride 50 ML IV (08:23)
[2023-12-12] MEDS: Empagliflozin 10 MG TABLET PO (08:23)
[2023-12-12] MEDS: Torsemide 20 MG TABLET 40 MG PO (08:23)
[2023-12-12] MEDS: Metoprolol Succinate ER 50 MG TAB.ER.24H PO (08:23)
[2023-12-12] MEDS: azaTHIOprine 50 MG TABLET PO ×2 (08:23→21:45)
[2023-12-12] MEDS: 0.9 % Sodium Chloride Flush 3 ML SYRINGE IVFLUSH (08:27)
[2023-12-12] MEDS: Nystatin Powder 15 GM BOTTLE 1 APPL TOPICAL (08:32)
[2023-12-12] MEDS: Azithromycin 500 MG in 0.9 % Sodium Chloride 250 ML 125 MG IV (11:20)
[2023-12-12] MEDS: Spironolactone 25 MG TABLET PO (11:21)
[2023-12-12] MEDS: rOPINIRole HCL 0.5 MG TABLET PO (11:21)
--- NOTE | 2023-12-12 13:28 | MHC.CM.PN ---
Addendum entered by Abigail Parsons 12/12/23 16:17: Bed offer received form [facility], pts son/HCP informed. Pt with hypotension and not medically cleared for discharge today. Original Note: This CM met with pt and her son/HCP per son's request. The pts son states the pt is now willing to go to STR. The pt states she still wants to go home and does not want to go to STR. During discussion, pt fell asleep. STR referral placed in [facility] to [facility] per son's request to check for bed availability.
[2023-12-12] MEDS: 0.9 % Sodium Chloride 1,000 ML 999 ML IVCONT (15:23)
[2023-12-12 15:38] LABS: MANUAL DIFF FLAG NO
[2023-12-12 16:51] LABS: White Blood Count 7.2 X10*3/uL (4.8-10.8)
[2023-12-12 16:52] LABS: Hematocrit 33.1 % (37.0-47.0); Hemoglobin 10.7 g/dl (12.0-16.0)
[2023-12-12 16:53] LABS: Basophils Percent Auto 0.8 % (0-2); Eosinophils Percent Auto 1.9 % (0-4); Imm Gran Abs Auto 0.08 X10*3/uL (0.00-0.03); Imm Gran Pct Auto 1.1 % (0.0-0.4); Lymphocytes Percent Auto 7.1 % (20-40); Mean Corpuscular HGB Conc 32.3 g/dl (31.0-35.0); Mean Corpuscular Hemoglobin 29.7 pg (27.0-33.0); Mean Corpuscular Volume 91.9 fL (80.0-98.0); Mean Platelet Volume 10.2 fL (9.4-12.3); Monocytes Percent Auto 16.3 % (2-11); Neutrophils Absolute Auto 5.3 x10*3/uL (2.0-8.3); Neutrophils Percent Auto 72.8 % (45-73); Platelet Count 331 X10*3/uL (160-400); Red Cell Distribution Width 19.2 % (11.0-16.0)
[2023-12-12 16:54] LABS: Basophils Absolute Auto 0.1 X10*3/uL (0.0-0.2); Eosinophils Absolute Auto 0.1 X10*3/uL (0.0-0.4); Lymphocytes Absolute Auto 0.5 X10*3/uL (1.2-4.9); Monocytes Absolute Auto 1.2 X10*3/uL (0.1-1.2)
[2023-12-12] MEDS: 0.9 % Sodium Chloride 2,310 ML 2310 ML IV (16:54)
--- NOTE | 2023-12-12 17:12 | PM.EVENT ---
Event Note Date of Service: 12/12/23 Event Note: Patient seen and evaluated. pt with hypotension 70/40 and lethargic, no other sepsis criteria, likely from BP meds (toprol, imdur, aldactone, torsemide, morphine, oxycodone), IVF boluses given x 1 with some improvement, additional fluid being given. Blood culture drawn, lactic acid pending. Hold above mention meds and continue to monitor. Consider midodrine if not improvment with fluid, pt Time Spent With Patient Time: Total time managing care of this patient today ____ minutes.
[2023-12-12 17:48] LABS: Lactic Acid 1.6 mmol/L (0.5-2.0)
--- NOTE | 2023-12-12 19:20 | P.PNIM_ITS ---
Subjective Subjective Date of Service: 12/12/23 Interval History: f/u on acute hypoxic resp failure, Pneumonia, encephalpathy Patient has been doing well. But in the afternoon blood pressure dropped to 70/40 and IVF boluses initiated, blood cultures drawn, lactic drawan. She has been given 3300 of fluid, lactic acid normal , BMP ok, including normal creatine. Her blood cultures continue to be on low side, midodrine, albumin and additonal fluid requested. She awake and alert, yet seem over all tired and cool to touch Physical Exam 2 Vital Signs: Vital Signs: Last Vital Signs Temp 97.9 F 12/12/23 14:57 Pulse 70 12/12/23 17:50 Resp 16 12/12/23 14:57 BP 88/46 L 12/12/23 19:13 Pulse Ox 92 12/12/23 14:57 O2 Del Method Nasal Cannula 12/12/23 14:57 O2 Flow Rate 2 12/12/23 14:57 BMI result Body Mass Index 30.1 General: AO X 3, no acute distress, looks tired Resp: diminished breath sounds CVS: S1,S2,RRR GI: +BS, NT, no distention Skin:bruses on arms Neuro: motor grossly intact Psych: appropriate affect at this time Objective Data Active Medications Acetaminophen (Acetaminophen 325 Mg Tablet) 650 mg PO Q6H PRN PRN Reason: Pain, Mild (Pain Scale 1-3) Last Admin: 12/12/23 06:31 Dose: 650 mg Documented By: RAFFY Apixaban (Apixaban 5 Mg Tablet) 5 mg PO BID [facility] Last Admin: 12/12/23 08:22 Dose: 5 mg Documented By: NISHANT Atorvastatin Calcium (Atorvastatin Calcium 40 Mg Tablet) 40 mg PO BEDTIME [facility] Last Admin: 12/11/23 23:41 Dose: 40 mg Documented By: RAFFY Azathioprine (Azathioprine 50 Mg Tablet) 50 mg PO BID [facility] Last Admin: 12/12/23 08:23 Dose: 50 mg Documented By: NISHANT Benzonatate (Benzonatate 100 Mg Capsule) 100 mg PO TID PRN PRN Reason: Cough Last Admin: 12/11/23 23:41 Dose: 100 mg Documented By: RAFFY Docusate Sodium (Docusate Sodium 100 Mg Capsule) 100 mg PO DAILY PRN PRN Reason: Constipation Last Admin: 12/11/23 23:42 Dose: 100 mg Documented By: RAFFY Duloxetine HCl (Duloxetine Hcl 20 Mg Capsule.) 20 mg PO BEDTIME [facility] Last Admin: 12/11/23 23:42 Dose: 20 mg Documented By: RAFFY Empagliflozin (Empagliflozin 10 Mg Tablet) 10 mg PO DAILY [facility] Last Admin: 12/12/23 08:23 Dose: 10 mg Documented By: NISHANT Gabapentin (Gabapentin 400 Mg Capsule) 800 mg PO TID [facility] Last Admin: 12/12/23 17:01 Dose: Not Given Documented By: NISHANT Non-Admin Reason: Physician Held Med Ceftriaxone Sodium 1 gm/ (Sodium Chloride) 50 mls @ 100 mls/hr IV Q24H [facility] Last Infusion: 12/12/23 13:00 Dose: Infused Documented By: NISHANT Azithromycin 500 mg/ Sodium (Chloride) 250 mls @ 125 mls/hr IV Q24H [facility] Last Infusion: 12/12/23 16:54 Dose: 125 mls/hr Documented By: NISHANT Albumin Human (Kedbumin 25 %) 100 mls @ 100 mls/hr IV Q1H [facility] Stop: 12/12/23 21:14 Lactated Ringer's (Lr) 1,000 mls @ 150 mls/hr IVCONT .Q6H40M [facility] Melatonin (Melatonin 3 Mg Tablet) 6 mg PO BEDTIME PRN PRN Reason: Insomnia Last Admin: 12/11/23 23:41 Dose: 6 mg Documented By: RAFFY Metoprolol Succinate (Metoprolol Succinate Er 25 Mg Tab.Er.24h) 25 mg PO DAILY [facility]; Protocol Last Admin: 12/12/23 08:22 Dose: 25 mg Documented By: NISHANT Metoprolol Succinate (Metoprolol Succinate Er 50 Mg Tab.Er.24h) 50 mg PO DAILY [facility]; Protocol Last Admin: 12/12/23 08:23 Dose: 50 mg Documented By: NISHANT Nitroglycerin (Nitroglycerin 0.4 Mg Tab.Subl) 0.4 mg SUBLINGUAL Q5M PRN PRN Reason: chest pain Non-Formulary Medication (Budesonide) 9 mg PO DAILY [facility] Nystatin (Nystatin Powder 15 Gm Bottle) 1 appl TOPICAL BID [facility]; Protocol Last Admin: 12/12/23 08:32 Dose: 1 appl Documented By: NISHANT Omeprazole (Omeprazole 20 Mg Capsule.Dr) 20 mg PO DAILY@0630 [facility] Last Admin: 12/12/23 06:31 Dose: 20 mg Documented By: RAFFY Ondansetron HCl (Ondansetron Hcl 4 Mg/2 Ml Vial) 4 mg IVPUSH Q8H PRN PRN Reason: Nausea and Vomiting Last Admin: 12/09/23 21:48 Dose: 4 mg Documented By: DEVENDRA Oxycodone HCl (Oxycodone Hcl Immed Release 5 Mg Tablet) 5 mg PO BID PRN PRN Reason: Pain, Severe (Pain Scale 7-10) Last Admin: 12/11/23 18:41 Dose: 5 mg Documented By: ROBERTO Ropinirole HCl (Ropinirole Hcl 0.5 Mg Tablet) 0.5 mg PO BID@1200,1800 [facility] Last Admin: 12/12/23 18:21 Dose: Not Given Documented By: NISHANT Non-Admin Reason: Physician Held Med Ropinirole HCl (Ropinirole Hcl 1 Mg Tablet) 1 mg PO BEDTIME [facility] Last Admin: 12/11/23 23:42 Dose: 1 mg Documented By: RAFFY Sodium Chloride (0.9 % Sodium Chloride Flush 3 Ml Syringe) 3 ml IVFLUSH QSHIFT [facility] Last Admin: 12/12/23 15:37 Dose: Not Given Documented By: NISHANT Non-Admin Reason: IV Running Labs 12/12/23 20:00 12/12/23 05:55 Labs: Laboratory Results - last 24 hr 12/12/23 12/12/23 05:55 16:02 MCV 91.9 MCH 29.7 MCHC 32.3 RDW 19.2 H Plt Count 331 MPV 10.2 Immature Gran % (Auto) 1.1 H Neut % (Auto) 72.8 Lymph % (Auto) 7.1 L Gaines % (Auto) 16.3 H Eos % (Auto) 1.9 Baso % (Auto) 0.8 Lymph # (Auto) 0.5 L Gaines # (Auto) 1.2 Eos # (Auto) 0.1 Baso # (Auto) 0.1 Abs Immat Gran (auto) 0.08 H Absolute Neuts (auto) 5.3 Absolute Nucleated RBC 0.000 Nucleated RBC % (auto) 0.0 Hold Purple Top SEE NOTE Anion Gap 13 Estim Creat Clear Calc 36.4 Estimated GFR 46 Random Glucose 119 H Lactic Acid 1.6 Calcium 8.8 Microbiology Microbiology Results: Microbiology 12/10/23 12:17 Blood Culture - Preliminary Blood - Venous No growth after 48 hours. 12/10/23 12:17 Blood Culture - Preliminary Blood - Venous No growth after 48 hours. Assessment and Plan (1) Pneumonia: Status: Acute Plan 83-year-old female with a PMH significant for?ulcerative colitis, hx of DVT on Eliquis, HFpEF, restless leg syndrome/sciatica, chronic leg pain on chronic opioids, HLD who presents to the ED for evaluation of worsening confusion, lethargy, and leg pain?x2 days. Pt will be admitted to the hospital for treatment and further evaluation of acute hypoxic respiratory failure and encephalopathy in the setting of multifocal pneumonia. Acute hypoxic respiratory failure in the setting of multifocal pneumonia--hypoxia is improved on oxygen -Continue oxygen and maintain sat > 92 -continue Ceftriaxone and Azithro 12/08, changing to Vanco and Zosyn in light of new hypotension -cultures negative, additional blood cultures drawn -CXR Hypotension--concern of possible med related (Torsemide, Imdure, aldactone and toprol).. Holding these meds now, so far has gotten 3 Liters with [address], trial of 5 mg of midodrine, ? albumin. 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 slow down fluid, get chest xray -ECG, Troponin Hx of DVT Eliquis HLD Statin Restless leg syndrome Continue home ropinirole Full Code DVT Prophylaxis: On Eliquis need for inpatient for treatment of?acute hypoxic respiratory failure and encephalopathy in the setting of multifocal pneumonia. Patient will require hospitalization for administration of IV antibiotics, supplemental oxygen, and close monitoring of respiratory and mental status, as well as PT evaluation PT recommends STR Quality Stroke Does the patient have a stroke diagnosis?: No VTE Prior VTE?: No VTE Risk Level:: Medical - moderate - high VTE Device Contraindication: Treatment Not Indicated VTE Drug Contraindication: N/A - Med Ordered
--- NOTE | 2023-12-12 19:23 | PC.NURSE ---
verbal order from Dr. Dasilva to hang LR 1,000mls bolus. Started 19:22.
[2023-12-12] MEDS: Midodrine HCl 5 MG TABLET PO (19:31)
--- NOTE | 2023-12-12 19:48 | P.EN_ITS ---
Documented by User: Mandi Sim NP 12/12/23 21:28 Event Note Date of Service: 12/12/23 Event Note: Dr. Dasilva requested that the patient be evaluated for level of care evaluation due Hypotension with SBP in the 80?s refractory to crystalloid and colloids. The pt is afebrile, has a normal WBC, normal lactic acid. UA on arrival negative for UTI. No obvious signs of sepsis. She did have metoprolol and torsemide this morning. On my exam, the patient was awake, alert, oriented to person, place and situation. O2 sat 94% on 2L, RR 20. She had difficulty completing a full sentence without stopping to take a breath. BP 88/46, HR 75. Wheezes, diffuse rales auscultated bilaterally. A CXR was ordered. She was given midodrine 5mg.? After about 30 minutes, the patient responded to the midodrine with SBP 120?s. CXR showed evidence of pulmonary edema. IVF stopped, IV diuretics ordered by Dr Dasilva who will monitor the patient on? the medical floor and notify for re- evaluation if the patient's condition changes. Patient's care was discussed in detail with Dr. Fernandez.? He is aware of all the above as well as the plan of care for this patient. Time Spent With Patient Time: Total time managing care of this patient today ____ minutes. Documented by User: Candelario Fernandez MD 12/13/23 09:48 Event Note Date of Service: 12/13/23
[2023-12-12 20:10] LABS: Hematocrit 33.8 % (37.0-47.0); Hemoglobin 10.7 g/dl (12.0-16.0); Mean Corpuscular HGB Conc 31.7 g/dl (31.0-35.0); Mean Corpuscular Volume 94.7 fL (80.0-98.0); Mean Platelet Volume 9.6 fL (9.4-12.3); Platelet Count 315 X10*3/uL (160-400); Red Blood Count 3.57 X10*6/uL (4.20-5.50); Red Cell Distribution Width 19.4 % (11.0-16.0); White Blood Count 8.2 X10*3/uL (4.8-10.8)
--- NOTE | 2023-12-12 20:11 | PC.NURSE ---
reported manual BP of 70/40, heart rate 67 to MD Dasilva, new set of blood cultures ordered, 0.9% sodium chloride 1000 ml bolus initiated. Vital signs documented in patient chart. Another bolus of 2,310mls was hung around 16:54, MD ordered to give over 2 hours on tigertext. Vital signs for this bolus documented in patient chart. By the end of this RN shift Manual BP was 88/46, handed assignment over to overnight RN Reji.
--- NOTE | 2023-12-12 20:15 | PM.EVENT ---
Event Note Date of Service: 12/12/23 Event Note: Following midodrine and additional fluid Blood pressure has improved.. Present BP 121/58, P72, O2 96 % RA. She is now complaining of having hard time breathing. She has diffuse rales, and CXR by my review show evidence of pulmonary edema. IVF is being paused since BP is better and will give IVF diuretics and closely monitor and will discusse further with CU. Time Spent With Patient Time: Total time managing care of this patient today ____ minutes.
[2023-12-12 20:28] LABS: Troponin-I High Sensitivity 5.5 ng/L (<3.5-17.0)
[2023-12-12 20:29] LABS: B Type Natriuretic Peptide 139 pg/mL (<100)
[2023-12-12] MEDS: rOPINIRole HCL 1 MG TABLET PO (21:34)
[2023-12-12] MEDS: Atorvastatin Calcium 40 MG TABLET PO (21:34)
[2023-12-12] MEDS: Piperacillin Sodium/Tazobactam 4.5 GM in 0.9 % Sodium Chloride 100 ML IV (21:35)
[2023-12-12] MEDS: Furosemide 40 MG/4 ML VIAL IVPUSH (21:35)
[2023-12-12] MEDS: DULoxetine HCl 20 MG CAPSULE.DR PO (21:35)
[2023-12-12] MEDS: vancomycin/NS 2,000 MG/500 ML PLAST..BAG 250 MG IV (22:27)
--- NOTE | 2023-12-12 22:40 | PHA.PROG ---
Admission Date/Time: December 09, 2023 11:56 Indication:RESPIRATORY Weight in k kg Adjusted body weight in Kg: [place] body weight in Kg: Obesity Dosing Indication % IBW: Serum Creatinine - Last 168 Hours 12/09/23 12/10/23 12/12/23 08:02 04:20 05:55 Creatinine 1.00 1.35 1.13 Estimated CrCl and GFR - Last 168 Hours 12/09/23 12/10/23 12/12/23 08:02 04:20 05:55 Estim Creat Clear Calc 40.8 30.3 36.4 Estimated GFR 53 37 46 Vancomycin Loading Dose: 1999 Current Vancomycin Dosing Regimen: 1250MG q24H Vancomycin Monitoring using AUC goal of 400 - 600 range with trough as surrogate marker: 599 Date and Time for next Vancomycin Level to be drawn: 12/13 @1999, AFTER 1 DOSE THE PREDICTED AUC IS RIGHT ON CUSP Pharmacist Comments on Vancomycin Plan: Vancomycin dosing will take advantage of [employer] as a clinical decision support tool that uses Bayesian modeling to calculate individual patient's pharmacokinetic parameters and forecast the patient's drug concentration time course with the target goal AUC 24 range of 400 - 600 mg/L/hr.
[2023-12-13] VITALS (9 sets, daily range): BP systolic 96–123; BP diastolic 43–63; PULSE 64–72; RESP 17–19; TEMP 36.2–36.7; O2SAT 95–98
[2023-12-13] MEDS: Piperacillin Sodium/Tazobactam 4.5 GM in 0.9 % Sodium Chloride 100 ML IV ×4 (01:22→21:15)
[2023-12-13] MEDS: Omeprazole 20 MG CAPSULE.DR PO (05:25)
--- NOTE | 2023-12-13 07:00 | CA_ITS ---
Transthoracic Echocardiogram Patient (Last, First, Middle): Maris Nash R Gender: Female Date of : 1940 Age: 83 Procedure Date: 12/13/2023 Procedure Type: Transthoracic Echocardiogram Location: [facility] [place] Height: 160.02 cm Weight: 76.66 kg BSA: 1.80 m2 Heart Rate: bpm BP: 96 / 43 mmHg Inspector Assembly: DENNIS Referring MD: Krishan Dasilva MD Symptoms: Heart failure Study Quality: Fair Conclusions: - Normal left ventricular size, thickness, systolic function, and wall motion. - Elevated filling pressures. - Normal right ventricular cavity size and systolic function. Findings Procedure Information The study quality is limited by the patients inability to tolerate the test. Left Ventricle Normal left ventricular size, thickness, systolic function, and wall motion. The visually estimated ejection fraction is between 55-60%. Abnormal diastolic function is noted. Spectral Doppler is indicative of an impaired relaxation filling pattern. Elevated filling pressures. Right Ventricle Normal right ventricular cavity size and systolic function. Atria The left atrium is normal in size. The right atrium is likely dilated. Aortic Valve Normal aortic valve structure and function. There is no aortic valve stenosis. There is no aortic valve regurgitation. Mitral Valve Normal mitral valve structure and function. There is no mitral valve regurgitation. There is no mitral valve stenosis. Pulmonic Valve The pulmonic valve is likely normal. Tricuspid Valve Normal tricuspid valve structure. There is trace tricuspid valve regurgitation. Tricuspid regurgitation envelope is inadequate for calculation of right ventricular systolic pressure. Indeterminate right atrial pressure. Great Vessels All visible segments of the aorta are normal in size. Venous The inferior vena cava was not well visualized. Pericardium/Pleural There is no evidence of pericardial effusion. Prior Study Comparison No significant change compared to prior study dated: 11/17/2022. Measurements 2D Linear Measurements IVSd: 0.93 0.6-0.9/0.6-1.0 cm LVIDd: 4.32 3.9-5.3/4.2-5.9 cm LVIDd Index: 2.40 2.4-3.2/2.2-3.1 cm/m2 LVIDs: 3.01 2.0-3.6 cm LVPWd: 0.72 0.7-1.1 cm LA Diam: 2.50 2.7-3.8/3.0-4.0 cm LAIDs Index: 1.39 1.5-2.3 cm/m2 LV Mass: 137.55 67-162/88-224 g LV Mass Index: 76.42 43-95/49-115 g/m2 LVOT Diam: 2.10 3.0+(-)1.3 cm Mitral Valve MV Pk E: 1.10 MV PK A: 1.10 MV Decel Time: 216.00 E/A: 1.00 E'Lateral: 7.83 E'Medial: 5.00 E/E' Med: 22.00 E/E' Lat: 14.00 PHT: 63.00 MVA PHT: 3.49 Decel Coamo: 5.11 LVOT LVOT Diam: 2.10 LVOT Area: 3.46 Diastolic Function MV Pk E: 1.10 MV Pk A: 1.10 E/A: 1.00 E'Medial: 5.00 E/E' Med: 22.00 E' Laterial: 7.83 E/E' Lat: 14.00 Right Ventricle TAPSE (mm): 20.30 TVS' Elfego: 11.50 Tricuspid Valve TR Pk Elfego: 2.11 TR Pk Grad: 18.00 Great Vessels Aorta Sinus of Valsalva: 3.70 2.0-3.[address] [place]: 2.96 1.7-3.4 cm Ao Asc: 3.30 2.1-3.4 cm Updated in Other Vendor System with Status of Final Eran Lincoln MD electronically signed on 12/14/2023 12:05:40 PM with status of Final
[2023-12-13 08:30] LABS: Creatinine Clr Calc Pharmacy 48.4; Estimated Glomerular Filt Rate > 60
[2023-12-13] MEDS: Apixaban 5 MG TABLET PO ×2 (09:31→21:11)
[2023-12-13] MEDS: azaTHIOprine 50 MG TABLET PO ×2 (09:31→21:11)
[2023-12-13] MEDS: Empagliflozin 10 MG TABLET PO (09:31)
[2023-12-13] MEDS: 0.9 % Sodium Chloride Flush 3 ML SYRINGE IVFLUSH ×3 (09:35→21:14)
[2023-12-13] MEDS: Nystatin Powder 15 GM BOTTLE 1 APPL TOPICAL ×2 (09:36→21:14)
--- NOTE | 2023-12-13 10:06 | HO.PM.IMPN ---
Subjective Subjective Date of Service: 12/13/23 Interval History: f/u on acute hypoxic resp failure, Pneumonia, encephalpathy Patient had episodes of low blood pressures yesterday that resolved wtih IVF but resulted in fluid overload and congestion and was given IV Lasix, sepsis work up was negative. Blood pressue still on lower side this morning and I am holding BP meds and diuretics. Physical Exam Vital Signs: Vital Signs: Last Vital Signs Temp 97.3 F 12/13/23 07:40 Pulse 64 12/13/23 09:49 Resp 18 12/13/23 09:48 BP 96/43 L 12/13/23 09:49 Pulse Ox 98 12/13/23 09:48 O2 Del Method Nasal Cannula 12/13/23 09:48 O2 Flow Rate 3 12/13/23 09:48 BMI result Body Mass Index 30.1 General: AO X 3, no acute distress, looks tired Resp: diminished breath sounds CVS: S1,S2,RRR, 1-2 + leg edema GI: +BS, NT, no distention Skin:bruses on arms Neuro: motor grossly intact Psych: appropriate affect at this time Objective Data Active Medications Acetaminophen (Acetaminophen 325 Mg Tablet) 650 mg PO Q6H PRN PRN Reason: Pain, Mild (Pain Scale 1-3) Last Admin: 12/12/23 06:31 Dose: 650 mg Documented By: RAFFY Apixaban (Apixaban 5 Mg Tablet) 5 mg PO BID [facility] Last Admin: 12/13/23 09:31 Dose: 5 mg Documented By: ANSON Atorvastatin Calcium (Atorvastatin Calcium 40 Mg Tablet) 40 mg PO BEDTIME [facility] Last Admin: 12/12/23 21:34 Dose: 40 mg Documented By: CHRISTY Azathioprine (Azathioprine 50 Mg Tablet) 50 mg PO BID [facility] Last Admin: 12/13/23 09:31 Dose: 50 mg Documented By: ANSON Benzonatate (Benzonatate 100 Mg Capsule) 100 mg PO TID PRN PRN Reason: Cough Last Admin: 12/11/23 23:41 Dose: 100 mg Documented By: RAFFY Docusate Sodium (Docusate Sodium 100 Mg Capsule) 100 mg PO DAILY PRN PRN Reason: Constipation Last Admin: 12/11/23 23:42 Dose: 100 mg Documented By: RAFFY Duloxetine HCl (Duloxetine Hcl 20 Mg Capsule.) 20 mg PO BEDTIME [facility] Last Admin: 12/12/23 21:35 Dose: 20 mg Documented By: CHRISTY Empagliflozin (Empagliflozin 10 Mg Tablet) 10 mg PO DAILY [facility] Last Admin: 12/13/23 09:31 Dose: 10 mg Documented By: ANSON Gabapentin (Gabapentin 400 Mg Capsule) 800 mg PO TID [facility] Last Admin: 12/13/23 09:49 Dose: Not Given Documented By: ANSON Non-Admin Reason: Physician Held Med Piperacillin Sod/Tazobactam (Sod 4.5 gm/ Sodium Chloride) 100 mls @ 200 mls/hr IV Q6H [facility] Last Admin: 12/13/23 09:34 Dose: 200 mls/hr Documented By: ANSON Vancomycin HCl 1,250 mg/ (Sodium Chloride) 250 mls @ 166.667 mls/hr IV Q24H [facility] Melatonin (Melatonin 3 Mg Tablet) 6 mg PO BEDTIME PRN PRN Reason: Insomnia Last Admin: 12/11/23 23:41 Dose: 6 mg Documented By: RAFFY Metoprolol Succinate (Metoprolol Succinate Er 25 Mg Tab.Er.24h) 25 mg PO DAILY [facility]; Protocol Last Admin: 12/13/23 09:49 Dose: Not Given Documented By: ANSON Non-Admin Reason: Physician Held Med Metoprolol Succinate (Metoprolol Succinate Er 50 Mg Tab.Er.24h) 50 mg PO DAILY [facility]; Protocol Last Admin: 12/13/23 09:49 Dose: Not Given Documented By: ANSON Non-Admin Reason: Physician Held Med Nitroglycerin (Nitroglycerin 0.4 Mg Tab.Subl) 0.4 mg SUBLINGUAL Q5M PRN PRN Reason: chest pain Non-Formulary Medication (Budesonide) 9 mg PO DAILY [facility] Nystatin (Nystatin Powder 15 Gm Bottle) 1 appl TOPICAL BID [facility]; Protocol Last Admin: 12/13/23 09:36 Dose: 1 appl Documented By: ANSON Omeprazole (Omeprazole 20 Mg Capsule.) 20 mg PO DAILY@0630 [facility] Last Admin: 12/13/23 05:25 Dose: 20 mg Documented By: CHRISTY Ondansetron HCl (Ondansetron Hcl 4 Mg/2 Ml Vial) 4 mg IVPUSH Q8H PRN PRN Reason: Nausea and Vomiting Last Admin: 12/09/23 21:48 Dose: 4 mg Documented By: DEVENDRA Oxycodone HCl (Oxycodone Hcl Immed Release 5 Mg Tablet) 5 mg PO BID PRN PRN Reason: Pain, Severe (Pain Scale 7-10) Last Admin: 12/11/23 18:41 Dose: 5 mg Documented By: ROBERTO Pharmacy Consult (Consult Rx Vancomycin Dosing) 1 each MISCELLANE DAILY PRN PRN Reason: Consult order Ropinirole HCl (Ropinirole Hcl 0.5 Mg Tablet) 0.5 mg PO BID@1200,1800 [facility] Last Admin: 12/12/23 18:21 Dose: Not Given Documented By: NISHANT Non-Admin Reason: Physician Held Med Ropinirole HCl (Ropinirole Hcl 1 Mg Tablet) 1 mg PO BEDTIME [facility] Last Admin: 12/12/23 21:34 Dose: 1 mg Documented By: CHRISTY Sodium Chloride (0.9 % Sodium Chloride Flush 3 Ml Syringe) 3 ml IVFLUSH QSHIFT [facility] Last Admin: 12/13/23 09:35 Dose: 3 ml Documented By: ANSON Labs 12/12/23 20:00 12/13/23 07:14 Labs: Laboratory Results - last 24 hr 12/12/23 12/12/23 12/12/23 05:55 16:02 20:00 MCV 91.9 94.7 MCH 29.7 30.0 MCHC 32.3 31.7 RDW 19.2 H 19.4 H Plt Count 331 315 MPV 10.2 9.6 Immature Gran % (Auto) 1.1 H Neut % (Auto) 72.8 Lymph % (Auto) 7.1 L Wharton % (Auto) 16.3 H Eos % (Auto) 1.9 Baso % (Auto) 0.8 Lymph # (Auto) 0.5 L Wharton # (Auto) 1.2 Eos # (Auto) 0.1 Baso # (Auto) 0.1 Abs Immat Gran (auto) 0.08 H Absolute Neuts (auto) 5.3 Absolute Nucleated RBC 0.000 0.000 Nucleated RBC % (auto) 0.0 0.0 Hold Purple Top Estim Creat Clear Calc Estimated GFR Lactic Acid 1.6 Troponin I High Sens 5.5 D B-Natriuretic Peptide 139 H Hold Yellow Top See Note 12/13/23 07:14 MCV MCH MCHC RDW Plt Count MPV Immature Gran % (Auto) Neut % (Auto) Lymph % (Auto) Wharton % (Auto) Eos % (Auto) Baso % (Auto) Lymph # (Auto) Wharton # (Auto) Eos # (Auto) Baso # (Auto) Abs Immat Gran (auto) Absolute Neuts (auto) Absolute Nucleated RBC Nucleated RBC % (auto) Hold Purple Top SEE NOTE Estim Creat Clear Calc 48.4 Estimated GFR > 60 Lactic Acid Troponin I High Sens B-Natriuretic Peptide Hold Yellow Top Microbiology Microbiology Results: Microbiology 12/10/23 12:17 Blood Culture - Preliminary Blood - Venous No growth after 48 hours. 12/10/23 12:17 Blood Culture - Preliminary Blood - Venous No growth after 48 hours. Assessment and Plan (1) Pneumonia: Status: Acute Plan 83-year-old female with a PMH significant for?ulcerative colitis, hx of DVT on Eliquis, HFpEF, restless leg syndrome/sciatica, chronic leg pain on chronic opioids, HLD who presents to the ED for evaluation of worsening confusion, lethargy, and leg pain?x2 days. Pt will be admitted to the hospital for treatment and further evaluation of acute hypoxic respiratory failure and encephalopathy in the setting of multifocal pneumonia. Acute hypoxic respiratory failure in the setting of multifocal pneumonia and heart failure, hypoxiia improved. -Continue oxygen and maintain sat > 92 -was on Ceftriaxone and Azithro 12/08, changed to Vanco and Zosyn in light of new hypotension and concern for sepsis, however sepsis work up was negative., -continue these Abx and if culture are negative by tomorrow, change to PO -cultures negative, repeat blood cultures pending HypOtension--concern of possible med related (Torsemide, Imdure, aldactone and toprol).. Holding these meds now. Received multiple dose of IVF and todate positive 7 liters. continue hold BP meds and diuretics. Get an echocardiogram Acute encephalopathy related to acute illness above, improved and back to baseline, ct negative Initial Lactic acidosis d/t hypoxia, resolved Elevated troponins--mild increase, repeat normal, likey d/t pulmonary process above Pulmonary edema as evident on exam, CXR and increased BNP--received IV Lasix last night, stil positive 7 liters, will give additional diuretics once BP stable, getting Echo Tachycardia--resolved Fall at home, negative fracture on xray PT eval HFpEF--now complaining of having hard time breathing, may becoming fluid overloaded. slow down fluid, get chest xray -ECG, Troponin Hx of DVT Eliquis HLD Statin Restless leg syndrome Continue home ropinirole Full Code DVT Prophylaxis: On Eliquis need for inpatient for treatment of?acute hypoxic respiratory failure and encephalopathy in the setting of multifocal pneumonia, ac tive Hypotension being managed with IVF and pressor DC to STR when medically ready Quality Stroke Does the patient have a stroke diagnosis?: No VTE Prior VTE?: No VTE Risk Level:: Medical - moderate - high VTE Device Contraindication: Treatment Not Indicated VTE Drug Contraindication: N/A - Med Ordered
[2023-12-13] MEDS: rOPINIRole HCL 0.5 MG TABLET PO ×2 (13:19→17:48)
--- NOTE | 2023-12-13 14:15 | MHC.CM.PN ---
CM spoke with pt.s son who was visiting pt. He said they have chosen [facility] for STR. Update sent to them.
[2023-12-13] MEDS: Gabapentin 400 MG CAPSULE 800 MG PO ×2 (15:21→21:13)
--- NOTE | 2023-12-13 15:52 | HO.WOUND ---
Wound Consult: Initial 83yr old? [place] [facility] [place] - See progress notes and H&P for detailed history.? Wound consult placed for Bilateral Lower Leg wounds, Groin and Breast wound POA.? Patient agreeable to assessment and photo documentation.? Quickly the patient expressed pain and was not able to tolerate further assessment. The lower legs are noted for venous dermatitis with scattered areas of stable scabs and dry skin. She would at this time not be able to tolerate touching of her legs provider and direct care nurse aware. May consider lotion / vaseline application to provide moisture. Bilateral Heels assessed for blanchable redness and intact tissue both heels are noted for bruising not related to DTI. Preventative foams applied and heels off loaded in bed with pillows. Right Heel Left heel Breast skin folds not able to assess due to patient discomfort - direct care nurse reports Nystatin powder initiated - will follow up in the future. Groin not able to assess due to patient discomfort - direct care nurse reports barrier cream initiated - will follow up in the future. Recommendations: 1. Turn and Reposition every 2 hours and as needed for patient comfort.? Use pillows or wedges to support off loading positions. 2. Off Load all bony prominences with use of pillows and heel boots if needed.? Apply Preventative foams where needed. ? 3. Monitor for incontinence and moisture control, use barrier creams when needed for prevention and treatment. 4. Provide adequate and supplemental nutrition.? 5. Continue low air loss mattress. 6. When applicable maintain blood glucose levels per Providers order. 7. Bilateral Heels - Apply preventative foams. peel back and assess Q shift change every 3 days. Off Load heels off of bed surface with pillows. 8. Bilateral Lower legs - May apply lotion / vaseline to provide moisture if pt able to tolerate. Re-consult wound care Nurse for wound deterioration or wound changes.
[2023-12-13] MEDS: Furosemide 40 MG/4 ML VIAL IVPUSH (17:48)
[2023-12-13] MEDS: DULoxetine HCl 20 MG CAPSULE.DR PO (21:11)
[2023-12-13] MEDS: Atorvastatin Calcium 40 MG TABLET PO (21:11)
[2023-12-13] MEDS: rOPINIRole HCL 1 MG TABLET PO (21:11)
[2023-12-13] MEDS: vancomycin HCL 1,250 MG in 0.9 % Sodium Chloride 250 ML 166.67 MG IV (21:14)
[2023-12-14] VITALS (11 sets, daily range): BP systolic 92–136; BP diastolic 56–73; PULSE 71–82; RESP 18–20; TEMP 35.9–36.9; O2SAT 94–98
[2023-12-14] MEDS: Piperacillin Sodium/Tazobactam 4.5 GM in 0.9 % Sodium Chloride 100 ML IV ×2 (03:25→08:17)
--- NOTE | 2023-12-14 07:40 | P.CDIM_ITS ---
PROVIDER RESPONSE TEXT: To clarify, the appropriate diagnosis supported by the clinical indicators: Acute QUERY TEXT: PHYSICIAN'S DOCUMENTATION REQUEST Date of Query: 12/11/2023 10:46 AM EDT Patient Name: Maris Nash Admit Date: 12/09/2023 Dear Krishan Dasilva, A review of the medical record indicates additional documentation may be needed. Please review below and update the documentation accordingly. Clinical Indicators: Per Hospitalist Progress Notes 12/10/23 and 12/11/23: Lactic acidosis d/t hypoxia, resolved Clarify which of the following accurately represents the acuity of the Lactic acidosis. Possible options might include: Acute Acute on chronic Compensated Chronic stable condition Remission Other (explain) Clinically unable to determine (explain) Thank you, Jenni Sargent RN Use of terms such as suspected, likely, concern for, or probable (associated with a specific diagnosi s that is being evaluated, monitored, or treated as if it exists) are acceptable and can be coded in the inpatient se tting, when documented at the time of discharge. Please use your independent medical judgment in providing your response. THIS QUERY IS PART OF THE PERMANENT MEDICAL RECORD
--- NOTE | 2023-12-14 07:40 | P.CDIM_ITS ---
PROVIDER RESPONSE TEXT: To clarify, the appropriate diagnosis supported by the clinical indicators: Acute on chronic QUERY TEXT: PHYSICIAN'S DOCUMENTATION REQUEST Date of Query: 12/13/2023 10:50 AM EDT Patient Name: Maris Nash Admit Date: 12/09/2023 Dear Krishan Dasilva, A review of the medical record indicates additional documentation may be needed. Please review below and update the documentation accordingly. Clinical Indicators: Per Hospitalist Progress Note 12/13/23: Pulmonary edema as evident on exam, CXR and increased BNP--received IV Lasix last night, still positi ve 7 liters, will give additional diuretics once BP stable, getting Echo Clarify which of the following accurately represents the acuity of the Pulmonary edema. Possible options might include: Acute Acute on chronic Compensated Chronic stable condition Remission Other (explain) Clinically unable to determine (explain) Thank you, Jenni Sargent RN Use of terms such as suspected, likely, concern for, or probable (associated with a specific diagnosi s that is being evaluated, monitored, or treated as if it exists) are acceptable and can be coded in the inpatient se tting, when documented at the time of discharge. Please use your independent medical judgment in providing your response. THIS QUERY IS PART OF THE PERMANENT MEDICAL RECORD
--- NOTE | 2023-12-14 07:40 | P.CDIM_ITS ---
PROVIDER RESPONSE TEXT: To clarify, the appropriate diagnosis supported by the clinical indicators: Anemia, please specify type QUERY TEXT: PHYSICIAN'S DOCUMENTATION REQUEST Date of Query: 12/13/2023 10:55 AM EDT Patient Name: Maris Nash Admit Date: 12/09/2023 Dear Krishan Ramírez, A review of the medical record indicates additional documentation may be needed. Please review below and update the documentation accordingly. Clinical Indicators: H&H on 12/10/23: 12.8/40.3 H&H on 12/12/23: 10.7/33.1 On Eliquis 5 mg po BID Based on the above, could you clarify the appropriate diagnosis, if significant, that supports the ab ove abnormalities and additional evaluation, monitoring, and/or treatment rendered: Anemia, please specify type Labs indicate a diagnosis of (please specify) Other (explain) Clinically unable to determine (explain) Thank you, Jenni Sargent RN Use of terms such as suspected, likely, concern for, or probable (associated with a specific diagnosi s that is being evaluated, monitored, or treated as if it exists) are acceptable and can be coded in the inpatient se tting, when documented at the time of discharge. Please use your independent medical judgment in providing your response. THIS QUERY IS PART OF THE PERMANENT MEDICAL RECORD
[2023-12-14] MEDS: azaTHIOprine 50 MG TABLET PO ×2 (08:17→21:14)
[2023-12-14] MEDS: Apixaban 5 MG TABLET PO ×2 (08:17→21:13)
[2023-12-14] MEDS: Empagliflozin 10 MG TABLET PO (08:17)
[2023-12-14] MEDS: 0.9 % Sodium Chloride Flush 3 ML SYRINGE IVFLUSH ×3 (08:18→21:14)
[2023-12-14] MEDS: Nystatin Powder 15 GM BOTTLE 1 APPL TOPICAL ×2 (08:18→22:00)
[2023-12-14] MEDS: Omeprazole 20 MG CAPSULE.DR PO (08:20)
[2023-12-14] MEDS: Gabapentin 100 MG CAPSULE PO ×3 (08:24→21:13)
[2023-12-14 08:25] LABS: Glucose, Whole Blood 93 mg/dL (60-115)
[2023-12-14 10:50] LABS: Hematocrit 34.2 % (37.0-47.0); Hemoglobin 11.1 g/dl (12.0-16.0); Mean Corpuscular HGB Conc 32.5 g/dl (31.0-35.0); Mean Corpuscular Hemoglobin 29.7 pg (27.0-33.0); Mean Corpuscular Volume 91.4 fL (80.0-98.0); Mean Platelet Volume 9.6 fL (9.4-12.3); Platelet Count 383 X10*3/uL (160-400); Red Blood Count 3.74 X10*6/uL (4.20-5.50); Red Cell Distribution Width 19.3 % (11.0-16.0); White Blood Count 9.8 X10*3/uL (4.8-10.8)
[2023-12-14 11:14] LABS: Creatinine Clr Calc Pharmacy 43.3; Estimated Glomerular Filt Rate 56
--- NOTE | 2023-12-14 12:23 | P.PNIM_ITS ---
Subjective Subjective Date of Service: 12/14/23 Interval History: f/u on acute hypoxic resp failure, Pneumonia, encephalpathy, low BP and heart failure. Overall is doing better, BP has been stable, seemed a bit lethargic this morning, likely neurontin but has perked up, she is still positive 5 liter Physical Exam 2 Vital Signs: Vital Signs: Last Vital Signs Temp 96.6 F L 12/14/23 12:00 Pulse 76 12/14/23 12:00 Resp 18 12/14/23 12:00 BP 136/73 12/14/23 12:00 Pulse Ox 98 12/14/23 12:00 O2 Del Method Nasal Cannula 12/14/23 12:00 O2 Flow Rate 2 12/14/23 12:00 BMI result Body Mass Index 30.1 General: AO X 3, no acute distress, Resp: diminished breath sounds CVS: S1,S2,RRR, 1-2 + leg edema GI: +BS, NT, no distention Skin:bruses on arms Neuro: motor grossly intact Psych: appropriate affect at this time Objective Data Active Medications Acetaminophen (Acetaminophen 325 Mg Tablet) 650 mg PO Q6H PRN PRN Reason: Pain, Mild (Pain Scale 1-3) Last Admin: 12/12/23 06:31 Dose: 650 mg Documented By: RAFFY Apixaban (Apixaban 5 Mg Tablet) 5 mg PO BID [facility] Last Admin: 12/14/23 08:17 Dose: 5 mg Documented By: ANSON Atorvastatin Calcium (Atorvastatin Calcium 40 Mg Tablet) 40 mg PO BEDTIME [facility] Last Admin: 12/13/23 21:11 Dose: 40 mg Documented By: CHASTITY Azathioprine (Azathioprine 50 Mg Tablet) 50 mg PO BID [facility] Last Admin: 12/14/23 08:17 Dose: 50 mg Documented By: ANSON Benzonatate (Benzonatate 100 Mg Capsule) 100 mg PO TID PRN PRN Reason: Cough Last Admin: 12/11/23 23:41 Dose: 100 mg Documented By: RAFFY Docusate Sodium (Docusate Sodium 100 Mg Capsule) 100 mg PO DAILY PRN PRN Reason: Constipation Last Admin: 12/11/23 23:42 Dose: 100 mg Documented By: RAFFY Duloxetine HCl (Duloxetine Hcl 20 Mg Capsule.) 20 mg PO BEDTIME [facility] Last Admin: 12/13/23 21:11 Dose: 20 mg Documented By: CHASTITY Empagliflozin (Empagliflozin 10 Mg Tablet) 10 mg PO DAILY [facility] Last Admin: 12/14/23 08:17 Dose: 10 mg Documented By: ANSON Gabapentin (Gabapentin 100 Mg Capsule) 100 mg PO TID [facility] Last Admin: 12/14/23 08:24 Dose: 100 mg Documented By: ANSON Piperacillin Sod/Tazobactam (Sod 4.5 gm/ Sodium Chloride) 100 mls @ 200 mls/hr IV Q6H [facility] Last Infusion: 12/14/23 08:47 Dose: Infused Documented By: ANSON Vancomycin HCl 1,250 mg/ (Sodium Chloride) 250 mls @ 166.667 mls/hr IV Q24H [facility] Last Infusion: 12/13/23 22:44 Dose: Infused Documented By: ANSON Melatonin (Melatonin 3 Mg Tablet) 6 mg PO BEDTIME PRN PRN Reason: Insomnia Last Admin: 12/11/23 23:41 Dose: 6 mg Documented By: RAFFY Nitroglycerin (Nitroglycerin 0.4 Mg Tab.Subl) 0.4 mg SUBLINGUAL Q5M PRN PRN Reason: chest pain Patient Own ( Budesonide 3 Mg Capsule,Delayed, Extend.Release) 9 mg PO DAILY [facility] Last Admin: 12/14/23 08:20 Dose: 9 mg Documented By: ANSON Nystatin (Nystatin Powder 15 Gm Bottle) 1 appl TOPICAL BID [facility]; Protocol Last Admin: 12/14/23 08:18 Dose: 1 appl Documented By: ANSON Omeprazole (Omeprazole 20 Mg Capsule.) 20 mg PO DAILY@0630 [facility] Last Admin: 12/14/23 08:20 Dose: 20 mg Documented By: ANSON Ondansetron HCl (Ondansetron Hcl 4 Mg/2 Ml Vial) 4 mg IVPUSH Q8H PRN PRN Reason: Nausea and Vomiting Last Admin: 12/09/23 21:48 Dose: 4 mg Documented By: DEVENDRA Oxycodone HCl (Oxycodone Hcl Immed Release 5 Mg Tablet) 5 mg PO BID PRN PRN Reason: Pain, Severe (Pain Scale 7-10) Last Admin: 12/11/23 18:41 Dose: 5 mg Documented By: ROBERTO Pharmacy Consult (Consult Rx Vancomycin Dosing) 1 each MISCELLANE DAILY PRN PRN Reason: Consult order Ropinirole HCl (Ropinirole Hcl 0.5 Mg Tablet) 0.5 mg PO BID@1200,1800 [facility] Last Admin: 12/13/23 17:48 Dose: 0.5 mg Documented By: ANSON Ropinirole HCl (Ropinirole Hcl 1 Mg Tablet) 1 mg PO BEDTIME [facility] Last Admin: 12/13/23 21:11 Dose: 1 mg Documented By: CHASTITY Sodium Chloride (0.9 % Sodium Chloride Flush 3 Ml Syringe) 3 ml IVFLUSH QSHIFT [facility] Last Admin: 12/14/23 08:18 Dose: 3 ml Documented By: ANSON Labs 12/14/23 10:32 12/14/23 10:32 Labs: Laboratory Results - last 24 hr 12/14/23 12/14/23 08:21 10:32 MCV 91.4 MCH 29.7 MCHC 32.5 RDW 19.3 H Plt Count 383 MPV 9.6 Absolute Nucleated RBC 0.000 Nucleated RBC % (auto) 0.0 Estim Creat Clear Calc 43.3 Estimated GFR 56 POC Glucose 93 Microbiology Microbiology Results: Microbiology 12/09/23 09:15 Blood Culture - Final Blood - Venous No growth after 5 days. 12/09/23 09:05 Blood Culture - Final Blood - Venous No growth after 5 days. 12/12/23 16:02 Blood Culture - Preliminary Blood - Venous No growth after 24 hours. 12/12/23 16:02 Blood Culture - Preliminary Blood - Venous No growth after 24 hours. Assessment and Plan (1) Pneumonia: Status: Acute Plan 83-year-old female with a PMH significant for?ulcerative colitis, hx of DVT on Eliquis, HFpEF, restless leg syndrome/sciatica, chronic leg pain on chronic opioids, HLD who presents to the ED for evaluation of worsening confusion, lethargy, and leg pain?x2 days. Pt will be admitted to the hospital for treatment and further evaluation of acute hypoxic respiratory failure and encephalopathy in the setting of multifocal pneumonia. Acute hypoxic respiratory failure in the setting of multifocal pneumonia and heart failure, hypoxiia improved. -Continue oxygen and maintain sat > 92 -was on Ceftriaxone and Azithro 12/08, changed to Vanco and Zosyn in light of new hypotension and concern for sepsis, however sepsis work up was negative., -continue these Abx and if culture are negative by tomorrow, change to PO Abx (Augmentin +Doxy ) for 5 more day, WBC normal -cultures negative, repeat blood cultures negative at 24 HypOtension--concern of possible med related (Torsemide, Imdure, aldactone and toprol).. Holding these meds now. Received multiple dose of IVF and todate positive 5 liters. continue hold BP meds and diuretics. Get an echocardiogram Acute encephalopathy related to acute illness above, improved and back to baseline, ct negative Initial Lactic acidosis d/t hypoxia, resolved Elevated troponins--mild increase, repeat normal, likey d/t pulmonary process above Pulmonary edema as evident on exam, CXR and increased BNP--consistent with acute diastolic CHF--Echo EF 55 to 60%, -continue IV Lasix 40 daily, monitor electrolytes Tachycardia--resolved Fall at home, negative fracture on xray PT eval Hx of DVT Eliquis HLD Statin Restless leg syndrome Continue home ropinirole somnolence likey d/t over sedation from Neurontin, reduce dose Full Code DVT Prophylaxis: On Eliquis need for inpatient for treatment of?acute hypoxic respiratory failure and encephalopathy in the setting of multifocal pneumonia, ac tive Hypotension being managed with IVF and pressor DC to STR when medically optimized Quality Stroke Does the patient have a stroke diagnosis?: No VTE Prior VTE?: No VTE Risk Level:: Medical - moderate - high VTE Device Contraindication: Treatment Not Indicated VTE Drug Contraindication: N/A - Med Ordered
[2023-12-14] MEDS: Furosemide 40 MG/4 ML VIAL IVPUSH (13:24)
[2023-12-14] MEDS: rOPINIRole HCL 0.5 MG TABLET PO ×2 (13:25→17:55)
--- NOTE | 2023-12-14 13:54 | MHC.CM.PN ---
per rounds, pt is not yet ready for DC, her DC plan is for her to go to [facility] for STR, anticipate DC over the weekend.
[2023-12-14 20:40] LABS: Vancomycin Random 21.3 mcg/mL (15-20)
[2023-12-14] MEDS: rOPINIRole HCL 1 MG TABLET PO (21:13)
[2023-12-14] MEDS: DULoxetine HCl 20 MG CAPSULE.DR PO (21:13)
[2023-12-14] MEDS: Doxycycline Monohydrate 100 MG CAPSULE PO (21:13)
[2023-12-14] MEDS: Atorvastatin Calcium 40 MG TABLET PO (21:13)
[2023-12-14] MEDS: Amoxicillin/Potassium Clav 875 MG TABLET PO (21:14)
[2023-12-15] VITALS (7 sets, daily range): BP systolic 121–140; BP diastolic 58–63; PULSE 71–142; RESP 15–20; TEMP 36.1–37.1; O2SAT 94–98
[2023-12-15] MEDS: Omeprazole 20 MG CAPSULE.DR PO (06:09)
[2023-12-15 06:54] LABS: Creatinine Clr Calc Pharmacy 47.8; Estimated Glomerular Filt Rate > 60
[2023-12-15] MEDS: azaTHIOprine 50 MG TABLET PO ×2 (09:38→21:31)
[2023-12-15] MEDS: Apixaban 5 MG TABLET PO ×2 (09:38→21:31)
[2023-12-15] MEDS: Amoxicillin/Potassium Clav 875 MG TABLET PO ×2 (09:38→21:31)
[2023-12-15] MEDS: Doxycycline Monohydrate 100 MG CAPSULE PO ×2 (09:38→21:31)
[2023-12-15] MEDS: Empagliflozin 10 MG TABLET PO (09:38)
[2023-12-15] MEDS: Gabapentin 100 MG CAPSULE PO ×3 (09:41→21:31)
[2023-12-15] MEDS: Furosemide 40 MG/4 ML VIAL IVPUSH (09:41)
[2023-12-15] MEDS: 0.9 % Sodium Chloride Flush 3 ML SYRINGE IVFLUSH ×2 (09:42→15:15)
[2023-12-15] MEDS: Acetaminophen 325 MG TABLET 650 MG PO (09:47)
--- NOTE | 2023-12-15 12:19 | P.CONCA_ITS ---
History of Present Illness History of Present Illness Date of Service: 12/15/23 Chief complaint: multi focal pneumonia, CHF Narrative: Pleasant 83 year female presenting with shortness of breath was diagnosed multifocal pneumonia and has been on antibiotics. Apparently was also getting shortness of breath and chest x-ray as raise concern for congestive heart failure. She was started on IV diuretics and has a negative balance currently. She is saying breathing is better but she has a poor appetite. This is related to infection currently. Denying chest discomfort. She has chronic lower extremity edema. [facility] Past Medical History Medical History History of CHF (congestive heart failure) Constipation Acute proctitis Hemorrhoids Spinal abscess Restless leg syndrome HTN (hypertension) Pre-diabetes DVT (deep venous thrombosis) Colitis Ulcerative colitis Surgical History Surgical History Hx of shoulder surgery Social History Social History Household Members: Family Household Members Other:: 2 Housing: House Do you presently have visiting nurse or other home services: Yes Alcohol intake: never Patient Tobacco Use Status: Never used Tobacco Advance Directives Date on File: 11/16/22 service: No Current occupational status: retired Meds Allergies Allergy/AdvReac Type Severity Reaction Status Date / Time dogs, cats etc.. Allergy Unknown Unknown Uncoded 12/09/23 07:41 barium Allergy Hives Uncoded 12/09/23 07:41 Active Medications: Current Medications Acetaminophen (Acetaminophen 325 Mg Tablet) 650 mg PO Q6H PRN PRN Reason: Pain, Mild (Pain Scale 1-3) Last Admin: 12/15/23 09:47 Dose: 650 mg Amoxicillin/Clavulanate Potassium (Amoxicillin/Potassium Clav 875 Mg Tablet) 875 mg PO BID [facility] Last Admin: 12/15/23 09:38 Dose: 875 mg Apixaban (Apixaban 5 Mg Tablet) 5 mg PO BID [facility] Last Admin: 12/15/23 09:38 Dose: 5 mg Atorvastatin Calcium (Atorvastatin Calcium 40 Mg Tablet) 40 mg PO BEDTIME [facility] Last Admin: 12/14/23 21:13 Dose: 40 mg Azathioprine (Azathioprine 50 Mg Tablet) 50 mg PO BID [facility] Last Admin: 12/15/23 09:38 Dose: 50 mg Benzonatate (Benzonatate 100 Mg Capsule) 100 mg PO TID PRN PRN Reason: Cough Last Admin: 12/11/23 23:41 Dose: 100 mg Docusate Sodium (Docusate Sodium 100 Mg Capsule) 100 mg PO DAILY PRN PRN Reason: Constipation Last Admin: 12/11/23 23:42 Dose: 100 mg Doxycycline Monohydrate (Doxycycline Monohydrate 100 Mg Capsule) 100 mg PO BID [facility] Last Admin: 12/15/23 09:38 Dose: 100 mg Duloxetine HCl (Duloxetine Hcl 20 Mg Capsule.Dr) 20 mg PO BEDTIME [facility] Last Admin: 12/14/23 21:13 Dose: 20 mg Empagliflozin (Empagliflozin 10 Mg Tablet) 10 mg PO DAILY [facility] Last Admin: 12/15/23 09:38 Dose: 10 mg Furosemide (Furosemide 40 Mg/4 Ml Vial) 40 mg IVPUSH DAILY [facility]; Protocol Last Admin: 12/15/23 09:41 Dose: 40 mg Gabapentin (Gabapentin 100 Mg Capsule) 100 mg PO TID [facility] Last Admin: 12/15/23 09:41 Dose: 100 mg Melatonin (Melatonin 3 Mg Tablet) 6 mg PO BEDTIME PRN PRN Reason: Insomnia Last Admin: 12/11/23 23:41 Dose: 6 mg Nitroglycerin (Nitroglycerin 0.4 Mg Tab.Subl) 0.4 mg SUBLINGUAL Q5M PRN PRN Reason: chest pain Patient Own ( Budesonide 3 Mg Capsule,Delayed, Extend.Release) 9 mg PO DAILY [facility] Last Admin: 12/15/23 09:38 Dose: 9 mg Nystatin (Nystatin Powder 15 Gm Bottle) 1 appl TOPICAL BID [facility]; Protocol Last Admin: 12/15/23 09:58 Dose: Not Given Omeprazole (Omeprazole 20 Mg Capsule.) 20 mg PO DAILY@0630 [facility] Last Admin: 12/15/23 06:09 Dose: 20 mg Ondansetron HCl (Ondansetron Hcl 4 Mg/2 Ml Vial) 4 mg IVPUSH Q8H PRN PRN Reason: Nausea and Vomiting Last Admin: 12/09/23 21:48 Dose: 4 mg Pharmacy Consult (Consult Rx Vancomycin Dosing) 1 each MISCELLANE DAILY PRN PRN Reason: Consult order Ropinirole HCl (Ropinirole Hcl 0.5 Mg Tablet) 0.5 mg PO BID@1200,1800 [facility] Last Admin: 12/14/23 17:55 Dose: 0.5 mg Ropinirole HCl (Ropinirole Hcl 1 Mg Tablet) 1 mg PO BEDTIME [facility] Last Admin: 12/14/23 21:13 Dose: 1 mg Sodium Chloride (0.9 % Sodium Chloride Flush 3 Ml Syringe) 3 ml IVFLUSH QSHIFT [facility] Last Admin: 12/15/23 09:42 Dose: 3 ml Home Medications ?Medication ?Instructions ?Recorded ?Confirmed ?Last Taken ?Type apixaban 5 mg tablet (Eliquis) 5 mg PO BID 12/02/20 12/09/23 2 Days Ago History ~12/07/23 ropinirole 0.5 mg tablet 1 mg PO BEDTIME 12/02/20 12/09/23 2 Days Ago History ~12/07/23 atorvastatin 40 mg tablet 1 tab PO BEDTIME 05/11/21 12/09/23 2 Days Ago History ~12/07/23 torsemide 20 mg tablet 2 tab PO DAILY 05/11/21 12/09/23 2 Days Ago History ~12/07/23 empagliflozin 10 mg tablet 10 mg PO DAILY 09/01/22 12/09/23 2 Days Ago History (Jardiance) ~12/07/23 spironolactone 25 mg tablet 25 mg PO DAILY@0900,1800 09/01/22 12/09/23 2 Days Ago History ~12/07/23 ropinirole 0.5 mg tablet 0.5 mg PO BID@1200,1800 09/06/22 12/09/23 2 Days Ago History ~12/07/23 isosorbide mononitrate 60 mg 60 mg PO BID@0900,1800 11/15/22 12/09/23 2 Days Ago History tablet,extended release 24 hr ~12/07/23 duloxetine 20 mg capsule,delayed 20 mg PO BEDTIME 08/31/23 12/09/23 2 Days Ago History release ~12/07/23 gabapentin 400 mg capsule 800 mg PO TID 08/31/23 12/09/23 2 Days Ago History ~12/07/23 metoprolol succinate 50 mg 50 mg PO DAILY 08/31/23 12/09/23 2 Days Ago History tablet,extended release 24 hr ~12/07/23 oxycodone 5 mg tablet 5 mg PO BID PRN Pain 08/31/23 12/09/23 Unknown History azathioprine 50 mg tablet 50 mg PO BID 12/09/23 12/09/23 2 Days Ago History ~12/07/23 metoprolol succinate 25 mg 25 mg PO DAILY 12/09/23 12/09/23 2 Days Ago History tablet,extended release 24 hr ~12/07/23 pantoprazole 40 mg tablet,delayed 40 mg PO DAILY@0630 12/09/23 12/09/23 2 Days Ago History release ~12/07/23 Physical Exam 2 Vital Signs: Vital Signs: Last Vital Signs Temp 96.9 F 12/15/23 11:31 Pulse 89 12/15/23 11:31 Resp 20 12/15/23 11:31 BP 122/60 12/15/23 11:31 Pulse Ox 95 12/15/23 11:31 O2 Del Method Nasal Cannula 12/15/23 11:31 O2 Flow Rate 2 12/15/23 11:31 BMI result Body Mass Index 30.1 GENERAL APPEARANCE: in no acute distress, pleasant. On supplemental oxygen NECK: no carotid bruit, mild jugular venous distention. SKIN: no suspicious lesions, warm and dry. HEART: no murmurs, regular rate and rhythm. LUNGS: clear to auscultation bilaterally. ABDOMEN: soft, nontender. EXTREMITIES: + edema. PERIPHERAL PULSES: equal. NEUROLOGIC: No gross deficits, AAO X 3 Objective Labs and Meds 12/14/23 10:32 12/15/23 06:09 Lab results: Laboratory Results - last 24 hr 12/14/23 12/15/23 12/15/23 19:57 06:09 06:22 Hold Purple Top SEE NOTE Creatinine 0.86 Estim Creat Clear Calc 47.8 Estimated GFR > 60 Random Vancomycin 21.3 H Assessment and Plan (1) CHF (congestive heart failure): Status: Acute Plan Pleasant 83-year-old female with multifocal pneumonia on antibiotics who also developed congestive heart failure due to pneumonia. On 40 mg IV Lasix daily. Chronic lower extremity edema likely due to gabapentin use. Can continue diuretics IV filter today and we can reassess tomorrow whether she should be changed to oral diuretics. Antibiotics for pneumonia. Thank you for allowing me to participate in the care of your patient. Please feel free to contact me if you have any questions. Procedures Date of Service Date of Service: 12/15/23
--- NOTE | 2023-12-15 12:56 | HO.PM.IMPN ---
Subjective Subjective Date of Service: 12/15/23 Interval History: f/u on acute hypoxic resp failure, Pneumonia, encephalpathy, low BP and heart failure. Doing well, vitals stable, no new complaint, breating is comfortable Physical Exam Vital Signs: Vital Signs: Last Vital Signs Temp 96.9 F 12/15/23 11:31 Pulse 89 12/15/23 11:31 Resp 20 12/15/23 11:31 BP 122/60 12/15/23 11:31 Pulse Ox 95 12/15/23 11:31 O2 Del Method Nasal Cannula 12/15/23 11:31 O2 Flow Rate 2 12/15/23 11:31 BMI result Body Mass Index 30.1 . General: AO X 3, no acute distress, Resp: diminished breath sounds CVS: S1,S2,RRR, 1-2 + leg edema GI: +BS, NT, no distention Skin:bruses on arms Neuro: motor grossly intact Psych: appropriate affect at this time Objective Data Active Medications Acetaminophen (Acetaminophen 325 Mg Tablet) 650 mg PO Q6H PRN PRN Reason: Pain, Mild (Pain Scale 1-3) Last Admin: 12/15/23 09:47 Dose: 650 mg Documented By: ANJALI Amoxicillin/Clavulanate Potassium (Amoxicillin/Potassium Clav 875 Mg Tablet) 875 mg PO BID [facility] Last Admin: 12/15/23 09:38 Dose: 875 mg Documented By: ANJALI Apixaban (Apixaban 5 Mg Tablet) 5 mg PO BID [facility] Last Admin: 12/15/23 09:38 Dose: 5 mg Documented By: ANJALI Atorvastatin Calcium (Atorvastatin Calcium 40 Mg Tablet) 40 mg PO BEDTIME [facility] Last Admin: 12/14/23 21:13 Dose: 40 mg Documented By: SHELLIE Azathioprine (Azathioprine 50 Mg Tablet) 50 mg PO BID [facility] Last Admin: 12/15/23 09:38 Dose: 50 mg Documented By: ANJALI Benzonatate (Benzonatate 100 Mg Capsule) 100 mg PO TID PRN PRN Reason: Cough Last Admin: 12/11/23 23:41 Dose: 100 mg Documented By: RAFFY Docusate Sodium (Docusate Sodium 100 Mg Capsule) 100 mg PO DAILY PRN PRN Reason: Constipation Last Admin: 12/11/23 23:42 Dose: 100 mg Documented By: RAFFY Doxycycline Monohydrate (Doxycycline Monohydrate 100 Mg Capsule) 100 mg PO BID [facility] Last Admin: 12/15/23 09:38 Dose: 100 mg Documented By: ANJALI Duloxetine HCl (Duloxetine Hcl 20 Mg Capsule.) 20 mg PO BEDTIME [facility] Last Admin: 12/14/23 21:13 Dose: 20 mg Documented By: SHELLIE Empagliflozin (Empagliflozin 10 Mg Tablet) 10 mg PO DAILY [facility] Last Admin: 12/15/23 09:38 Dose: 10 mg Documented By: ANJALI Furosemide (Furosemide 40 Mg/4 Ml Vial) 40 mg IVPUSH DAILY [facility]; Protocol Last Admin: 12/15/23 09:41 Dose: 40 mg Documented By: ANJALI Gabapentin (Gabapentin 100 Mg Capsule) 100 mg PO TID [facility] Last Admin: 12/15/23 09:41 Dose: 100 mg Documented By: ANJALI Melatonin (Melatonin 3 Mg Tablet) 6 mg PO BEDTIME PRN PRN Reason: Insomnia Last Admin: 12/11/23 23:41 Dose: 6 mg Documented By: RAFFY Nitroglycerin (Nitroglycerin 0.4 Mg Tab.Subl) 0.4 mg SUBLINGUAL Q5M PRN PRN Reason: chest pain Patient Own ( Budesonide 3 Mg Capsule,Delayed, Extend.Release) 9 mg PO DAILY [facility] Last Admin: 12/15/23 09:38 Dose: 9 mg Documented By: ANJALI Nystatin (Nystatin Powder 15 Gm Bottle) 1 appl TOPICAL BID [facility]; Protocol Last Admin: 12/15/23 09:58 Dose: Not Given Documented By: ANJALI Non-Admin Reason: Patient Refused Omeprazole (Omeprazole 20 Mg Capsule.) 20 mg PO DAILY@0630 [facility] Last Admin: 12/15/23 06:09 Dose: 20 mg Documented By: SHELLIE Ondansetron HCl (Ondansetron Hcl 4 Mg/2 Ml Vial) 4 mg IVPUSH Q8H PRN PRN Reason: Nausea and Vomiting Last Admin: 12/09/23 21:48 Dose: 4 mg Documented By: DEVENDRA Pharmacy Consult (Consult Rx Vancomycin Dosing) 1 each MISCELLANE DAILY PRN PRN Reason: Consult order Ropinirole HCl (Ropinirole Hcl 0.5 Mg Tablet) 0.5 mg PO BID@1200,1800 [facility] Last Admin: 12/14/23 17:55 Dose: 0.5 mg Documented By: ANSON Ropinirole HCl (Ropinirole Hcl 1 Mg Tablet) 1 mg PO BEDTIME [facility] Last Admin: 12/14/23 21:13 Dose: 1 mg Documented By: SHELLIE Sodium Chloride (0.9 % Sodium Chloride Flush 3 Ml Syringe) 3 ml IVFLUSH QSHIFT [facility] Last Admin: 12/15/23 09:42 Dose: 3 ml Documented By: FOSTEKR Labs 12/14/23 10:32 12/15/23 06:09 Labs: Laboratory Results - last 24 hr 12/14/23 12/15/23 12/15/23 19:57 06:09 06:22 Hold Purple Top SEE NOTE Estim Creat Clear Calc 47.8 Estimated GFR > 60 Random Vancomycin 21.3 H Microbiology Microbiology Results: Microbiology 12/12/23 16:02 Blood Culture - Preliminary Blood - Venous No growth after 48 hours. 12/12/23 16:02 Blood Culture - Preliminary Blood - Venous No growth after 48 hours. 12/09/23 09:15 Blood Culture - Final Blood - Venous No growth after 5 days. 12/09/23 09:05 Blood Culture - Final Blood - Venous No growth after 5 days. Assessment and Plan (1) Pneumonia: Status: Acute Plan 83-year-old female with a PMH significant for?ulcerative colitis, hx of DVT on Eliquis, HFpEF, restless leg syndrome/sciatica, chronic leg pain on chronic opioids, HLD who presents to the ED for evaluation of worsening confusion, lethargy, and leg pain?x2 days. Pt will be admitted to the hospital for treatment and further evaluation of acute hypoxic respiratory failure and encephalopathy in the setting of multifocal pneumonia. Acute hypoxic respiratory failure in the setting of multifocal pneumonia and heart failure, hypoxiia improved. -Continue oxygen and maintain sat > 92 -was on Ceftriaxone and Azithro 12/08, changed to Vanco and Zosyn in light of new hypotension and concern for sepsis, however sepsis work up was negative., -, changed to PO Abx (Augmentin +Doxy ) for 5 more day, WBC normal -cultures negative, repeat blood cultures negative at48 HypOtension--concern of possible med related (Torsemide, Imdure, aldactone and toprol).. Holding these meds now. Received multiple dose of IVF and todate positive 4 liters. continue hold BP meds and diuretics. Acute encephalopathy related to acute illness above, improved and back to baseline, ct negative Initial Lactic acidosis d/t hypoxia, resolved Elevated troponins--mild increase, repeat normal, likey d/t pulmonary process above Pulmonary edema as evident on exam, CXR and increased BNP--consistent with acute diastolic CHF--Echo EF 55 to 60%, -continue IV Lasix 40 daily, monitor electrolytes, and I/O, cardiology consult--resume toprolol and aldactone when BP stable Tachycardia--resolved Fall at home, negative fracture on xray PT eval Hx of DVT Eliquis HLD Statin Restless leg syndrome Continue home ropinirole somnolence likey d/t over sedation from Neurontin, reduce dose Full Code DVT Prophylaxis: On Eliquis need for inpatient for treatment of?acute hypoxic respiratory failure and encephalopathy in the setting of multifocal pneumonia, ac tive Hypotension being managed with IVF and pressor DC to STR when medically optimized Quality Stroke Does the patient have a stroke diagnosis?: No VTE Prior VTE?: No VTE Risk Level:: Medical - moderate - high VTE Device Contraindication: Treatment Not Indicated VTE Drug Contraindication: N/A - Med Ordered
[2023-12-15] MEDS: rOPINIRole HCL 0.5 MG TABLET PO (15:16)
[2023-12-15] MEDS: DULoxetine HCl 20 MG CAPSULE.DR PO (21:31)
[2023-12-15] MEDS: Atorvastatin Calcium 40 MG TABLET PO (21:31)
[2023-12-15] MEDS: rOPINIRole HCL 1 MG TABLET PO (21:33)
[2023-12-15] MEDS: Nystatin Powder 15 GM BOTTLE 1 APPL TOPICAL (21:37)
[2023-12-16] VITALS (9 sets, daily range): BP systolic 128–137; BP diastolic 58–79; PULSE 70–94; RESP 16–19; TEMP 36.1–37.1; O2SAT 94–97; BMI 31.0
[2023-12-16] MEDS: 0.9 % Sodium Chloride Flush 3 ML SYRINGE IVFLUSH ×3 (00:03→17:50)
[2023-12-16] MEDS: Omeprazole 20 MG CAPSULE.DR PO (06:11)
[2023-12-16 07:15] LABS: Creatinine Clr Calc Pharmacy 53.5; Estimated Glomerular Filt Rate > 60
--- NOTE | 2023-12-16 07:44 | PC.NURSE ---
Late entry: Tylenol was given for this patient for pain 05/01 as that was her request and no other pain meds were ordered in the SEP. She did get relief with the Tylenol
[2023-12-16] MEDS: Furosemide 40 MG/4 ML VIAL IVPUSH (08:03)
[2023-12-16] MEDS: rOPINIRole HCL 0.5 MG TABLET PO ×2 (08:04→17:50)
[2023-12-16] MEDS: Benzonatate 100 MG CAPSULE PO (08:05)
[2023-12-16] MEDS: Apixaban 5 MG TABLET PO ×2 (08:05→22:26)
[2023-12-16] MEDS: Empagliflozin 10 MG TABLET PO (08:05)
[2023-12-16] MEDS: Amoxicillin/Potassium Clav 875 MG TABLET PO ×2 (08:05→22:25)
[2023-12-16] MEDS: Acetaminophen 325 MG TABLET 650 MG PO (08:05)
[2023-12-16] MEDS: Gabapentin 100 MG CAPSULE 200 MG PO (08:05)
[2023-12-16] MEDS: Doxycycline Monohydrate 100 MG CAPSULE PO ×2 (08:05→22:26)
[2023-12-16] MEDS: azaTHIOprine 50 MG TABLET PO ×2 (08:05→22:27)
[2023-12-16] MEDS: Nystatin Powder 15 GM BOTTLE 1 APPL TOPICAL ×2 (08:10→22:27)
--- NOTE | 2023-12-16 10:06 | P.PNIM_ITS ---
Subjective Subjective Date of Service: 12/16/23 Physical Exam 2 Vital Signs: Vital Signs: Last Vital Signs Temp 98.7 F 12/16/23 07:41 Pulse 94 12/16/23 07:41 Resp 18 12/16/23 07:41 BP 137/61 12/16/23 08:03 Pulse Ox 94 12/16/23 07:41 O2 Del Method Nasal Cannula 12/16/23 07:41 O2 Flow Rate 2 12/16/23 07:41 BMI result Body Mass Index 31.0 Objective Data Active Medications Acetaminophen (Acetaminophen 325 Mg Tablet) 650 mg PO Q6H PRN PRN Reason: Pain, Mild (Pain Scale 1-3) Last Admin: 12/16/23 08:05 Dose: 650 mg Documented By: NISHANT Amoxicillin/Clavulanate Potassium (Amoxicillin/Potassium Clav 875 Mg Tablet) 875 mg PO BID [facility] Last Admin: 12/16/23 08:05 Dose: 875 mg Documented By: NISHANT Apixaban (Apixaban 5 Mg Tablet) 5 mg PO BID [facility] Last Admin: 12/16/23 08:05 Dose: 5 mg Documented By: NISHANT Atorvastatin Calcium (Atorvastatin Calcium 40 Mg Tablet) 40 mg PO BEDTIME [facility] Last Admin: 12/15/23 21:31 Dose: 40 mg Documented By: ANJALI Azathioprine (Azathioprine 50 Mg Tablet) 50 mg PO BID [facility] Last Admin: 12/16/23 08:05 Dose: 50 mg Documented By: NISHANT Benzonatate (Benzonatate 100 Mg Capsule) 100 mg PO TID PRN PRN Reason: Cough Last Admin: 12/16/23 08:05 Dose: 100 mg Documented By: NISHANT Docusate Sodium (Docusate Sodium 100 Mg Capsule) 100 mg PO DAILY PRN PRN Reason: Constipation Last Admin: 12/11/23 23:42 Dose: 100 mg Documented By: RAFFY Doxycycline Monohydrate (Doxycycline Monohydrate 100 Mg Capsule) 100 mg PO BID [facility] Last Admin: 12/16/23 08:05 Dose: 100 mg Documented By: NISHANT Duloxetine HCl (Duloxetine Hcl 20 Mg Capsule.) 20 mg PO BEDTIME [facility] Last Admin: 12/15/23 21:31 Dose: 20 mg Documented By: ANJALI Empagliflozin (Empagliflozin 10 Mg Tablet) 10 mg PO DAILY [facility] Last Admin: 12/16/23 08:05 Dose: 10 mg Documented By: NISHANT Furosemide (Furosemide 40 Mg/4 Ml Vial) 40 mg IVPUSH DAILY [facility]; Protocol Last Admin: 12/16/23 08:03 Dose: 40 mg Documented By: NISHANT Gabapentin (Gabapentin 100 Mg Capsule) 200 mg PO TID [facility] Last Admin: 12/16/23 08:05 Dose: 200 mg Documented By: NISHANT Melatonin (Melatonin 3 Mg Tablet) 6 mg PO BEDTIME PRN PRN Reason: Insomnia Last Admin: 12/11/23 23:41 Dose: 6 mg Documented By: RAFFY Nitroglycerin (Nitroglycerin 0.4 Mg Tab.Subl) 0.4 mg SUBLINGUAL Q5M PRN PRN Reason: chest pain Patient Own ( Budesonide 3 Mg Capsule,Delayed, Extend.Release) 9 mg PO DAILY [facility] Last Admin: 12/16/23 08:04 Dose: 9 mg Documented By: NISHANT Nystatin (Nystatin Powder 15 Gm Bottle) 1 appl TOPICAL BID [facility]; Protocol Last Admin: 12/16/23 08:10 Dose: 1 appl Documented By: NISHANT Omeprazole (Omeprazole 20 Mg Capsule.Dr) 20 mg PO DAILY@0630 [facility] Last Admin: 12/16/23 06:11 Dose: 20 mg Documented By: MEIR Ondansetron HCl (Ondansetron Hcl 4 Mg/2 Ml Vial) 4 mg IVPUSH Q8H PRN PRN Reason: Nausea and Vomiting Last Admin: 12/09/23 21:48 Dose: 4 mg Documented By: DEVENDRA Pharmacy Consult (Consult Rx Vancomycin Dosing) 1 each MISCELLANE DAILY PRN PRN Reason: Consult order Ropinirole HCl (Ropinirole Hcl 0.5 Mg Tablet) 0.5 mg PO BID@1200,1800 [facility] Last Admin: 12/16/23 08:04 Dose: 0.5 mg Documented By: NISHANT Comments: MD ayde grace to administer early Ropinirole HCl (Ropinirole Hcl 1 Mg Tablet) 1 mg PO BEDTIME [facility] Last Admin: 12/15/23 21:33 Dose: 1 mg Documented By: ANJALI Sodium Chloride (0.9 % Sodium Chloride Flush 3 Ml Syringe) 3 ml IVFLUSH QSHIFT [facility] Last Admin: 12/16/23 08:06 Dose: 3 ml Documented By: NISHANT Labs 12/14/23 10:32 12/16/23 06:35 Labs: Laboratory Results - last 24 hr 12/16/23 06:35 Estim Creat Clear Calc 53.5 Estimated GFR > 60 Microbiology Microbiology Results: Microbiology 12/10/23 12:17 Blood Culture - Final Blood - Venous No growth after 5 days. 12/10/23 12:17 Blood Culture - Final Blood - Venous No growth after 5 days. Assessment and Plan (1) Pneumonia: Status: Acute Plan 83-year-old female with a PMH significant for?ulcerative colitis, hx of DVT on Eliquis, HFpEF, restless leg syndrome/sciatica, chronic leg pain on chronic opioids, HLD who presents to the ED for evaluation of worsening confusion, lethargy, and leg pain?x2 days. Pt will be admitted to the hospital for treatment and further evaluation of acute hypoxic respiratory failure and encephalopathy in the setting of multifocal pneumonia. Acute hypoxic respiratory failure in the setting of multifocal pneumonia and heart failure, hypoxiia improved. -Continue oxygen and maintain sat > 92 -was on Ceftriaxone and Azithro 12/08, changed to Vanco and Zosyn in light of new hypotension and concern for sepsis, however sepsis work up was negative., -changed to PO Abx (Augmentin +Doxy 12/14 ) for 5 more day, WBC normal -cultures negative, repeat blood cultures negative at48 HypOtension--concern of possible med related (Torsemide, Imdure, aldactone and toprol).. Holding these meds now. Received multiple dose of IVF and todate positive 4 liters. continue hold BP meds and diuretics. Acute encephalopathy related to acute illness above, improved and back to baseline, ct negative Initial Lactic acidosis d/t hypoxia, resolved Hypokalemia--replace, restart aldactone later Elevated troponins--mild increase, repeat normal, likey d/t pulmonary process above Pulmonary edema as evident on exam, CXR and increased BNP--consistent with acute diastolic CHF--Echo EF 55 to 60%, -continue IV Lasix 40 daily, monitor electrolytes, and I/O, cardiology consult--resume toprolol and aldactone when BP stable Tachycardia--resolved HTN--restart toprol Fall at home, negative fracture on xray PT eval Hx of DVT Eliquis HLD Statin Restless leg syndrome Continue home ropinirole somnolence likey d/t over sedation from Neurontin, reduce dose Full Code DVT Prophylaxis: On Eliquis need for inpatient for treatment of?acute hypoxic respiratory failure and encephalopathy in the setting of multifocal pneumonia, ac tive Hypotension being managed with IVF and pressor DC to STR when medically optimized Quality Stroke Does the patient have a stroke diagnosis?: No VTE Prior VTE?: No VTE Risk Level:: Medical - moderate - high VTE Device Contraindication: Treatment Not Indicated VTE Drug Contraindication: N/A - Med Ordered
[2023-12-16 10:30] LABS: Anion Gap 14 (12-20)
[2023-12-16 10:39] LABS: Carbon Dioxide 28 mmol/L (22-29); Chloride 104 mmol/L (96-108); Magnesium 1.8 mg/dL (1.6-2.6); Potassium 2.6 mmol/L (3.3-5.1); Sodium 143 mmol/L (135-145)
[2023-12-16] MEDS: Potassium Chloride/H20 10 MEQ/100 ML PIGGYBACK 100 MEQ IV ×2 (11:54→13:22)
[2023-12-16] MEDS: Potassium Chloride Packet 20 MEQ PACKET 40 MEQ PO (11:57)
[2023-12-16] MEDS: Metoprolol Succinate ER 25 MG TAB.ER.24H PO (11:58)
--- NOTE | 2023-12-16 12:09 | PC.NURSE ---
Patient's Norton removed 12/16/23 at 08:20, due to void at 14:20.
--- NOTE | 2023-12-16 17:27 | PC.NURSE ---
pt voided 400ml clear yellow urine in external catheter at 1200.
[2023-12-16] MEDS: rOPINIRole HCL 1 MG TABLET PO (22:25)
[2023-12-16] MEDS: Atorvastatin Calcium 40 MG TABLET PO (22:25)
[2023-12-16] MEDS: DULoxetine HCl 20 MG CAPSULE.DR PO (22:26)
[2023-12-17 04:00] VITALS: BP 142/60; PULSE 69; RESP 20; TEMP 36.4; O2SAT 95
[2023-12-17 06:00] VITALS: BMI 31.3
[2023-12-17] MEDS: Omeprazole 20 MG CAPSULE.DR PO (06:29)
[2023-12-17] MEDS: 0.9 % Sodium Chloride Flush 3 ML SYRINGE IVFLUSH ×3 (06:34→17:28)
[2023-12-17 07:45] LABS: Anion Gap 16 (12-20); Blood Urea Nitrogen 11 mg/dL (9-16); Calcium 8.8 mg/dL (8.4-10.2); Carbon Dioxide 22 mmol/L (22-29); Chloride 107 mmol/L (96-108); Creatinine Clr Calc Pharmacy 63.6; Estimated Glomerular Filt Rate > 60; Glucose Random 77 mg/dL (60-115); Potassium 3.2 mmol/L (3.3-5.1); Sodium 142 mmol/L (135-145)
[2023-12-17 08:00] VITALS: BP 134/65; PULSE 67; RESP 18; TEMP 36.1; O2SAT 96
[2023-12-17] MEDS: Gabapentin 100 MG CAPSULE 200 MG PO ×3 (10:19→22:43)
[2023-12-17] MEDS: Empagliflozin 10 MG TABLET PO (10:20)
[2023-12-17] MEDS: Furosemide 40 MG TABLET PO (10:20)
[2023-12-17] MEDS: Potassium Chloride ER 20 MEQ TAB.ER.PRT 40 MEQ PO (10:20)
[2023-12-17] MEDS: Apixaban 5 MG TABLET PO ×2 (10:20→22:41)
[2023-12-17] MEDS: Metoprolol Succinate ER 25 MG TAB.ER.24H PO (10:20)
[2023-12-17] MEDS: azaTHIOprine 50 MG TABLET PO ×2 (10:21→22:43)
[2023-12-17] MEDS: Doxycycline Monohydrate 100 MG CAPSULE PO ×2 (10:21→22:41)
[2023-12-17] MEDS: Amoxicillin/Potassium Clav 875 MG TABLET PO ×2 (10:21→22:43)
[2023-12-17] MEDS: Nystatin Powder 15 GM BOTTLE 1 APPL TOPICAL ×2 (10:22→23:10)
[2023-12-17] MEDS: Acetaminophen 325 MG TABLET 650 MG PO (10:22)
--- NOTE | 2023-12-17 10:59 | HO.PM.IMPN ---
Subjective Subjective Date of Service: 12/17/23 Interval History: f/u on acute hypoxic resp failure, Pneumonia, encephalpathy, low BP and heart failure. No new issues, breathing is comfortable Physical Exam Vital Signs: Vital Signs: Last Vital Signs Temp 97 F 12/17/23 08:00 Pulse 67 12/17/23 08:00 Resp 18 12/17/23 08:00 BP 134/65 12/17/23 08:00 Pulse Ox 96 12/17/23 08:00 O2 Del Method Nasal Cannula 12/17/23 08:00 O2 Flow Rate 2 12/17/23 08:00 BMI result Body Mass Index 31.3 General: AO X 3, no acute distress Resp: CTA bilateral CVS: S1,S2,RRR, 1 + leg edema GI: +BS, NT, no distention Skin: No rash Neuro: motor grossly intact Psych: appropriate affect Objective Data Active Medications Acetaminophen (Acetaminophen 325 Mg Tablet) 650 mg PO Q6H PRN PRN Reason: Pain, Mild (Pain Scale 1-3) Last Admin: 12/17/23 10:22 Dose: 650 mg Documented By: BANDAR Amoxicillin/Clavulanate Potassium (Amoxicillin/Potassium Clav 875 Mg Tablet) 875 mg PO BID [facility] Last Admin: 12/17/23 10:21 Dose: 875 mg Documented By: BANDAR Apixaban (Apixaban 5 Mg Tablet) 5 mg PO BID [facility] Last Admin: 12/17/23 10:20 Dose: 5 mg Documented By: BANDAR Atorvastatin Calcium (Atorvastatin Calcium 40 Mg Tablet) 40 mg PO BEDTIME [facility] Last Admin: 12/16/23 22:25 Dose: 40 mg Documented By: CECILE Azathioprine (Azathioprine 50 Mg Tablet) 50 mg PO BID [facility] Last Admin: 12/17/23 10:21 Dose: 50 mg Documented By: BANDAR Benzonatate (Benzonatate 100 Mg Capsule) 100 mg PO TID PRN PRN Reason: Cough Last Admin: 12/16/23 08:05 Dose: 100 mg Documented By: NISHANT Docusate Sodium (Docusate Sodium 100 Mg Capsule) 100 mg PO DAILY PRN PRN Reason: Constipation Last Admin: 12/11/23 23:42 Dose: 100 mg Documented By: RAFFY Doxycycline Monohydrate (Doxycycline Monohydrate 100 Mg Capsule) 100 mg PO BID [facility] Last Admin: 12/17/23 10:21 Dose: 100 mg Documented By: BANDAR Duloxetine HCl (Duloxetine Hcl 20 Mg Capsule.) 20 mg PO BEDTIME [facility] Last Admin: 12/16/23 22:26 Dose: 20 mg Documented By: CECILE Empagliflozin (Empagliflozin 10 Mg Tablet) 10 mg PO DAILY [facility] Last Admin: 12/17/23 10:20 Dose: 10 mg Documented By: BANDAR Furosemide (Furosemide 40 Mg Tablet) 40 mg PO DAILY [facility]; Protocol Last Admin: 12/17/23 10:20 Dose: 40 mg Documented By: BANDAR Gabapentin (Gabapentin 100 Mg Capsule) 200 mg PO TID [facility] Last Admin: 12/17/23 10:19 Dose: 200 mg Documented By: BANDAR Melatonin (Melatonin 3 Mg Tablet) 6 mg PO BEDTIME PRN PRN Reason: Insomnia Last Admin: 12/11/23 23:41 Dose: 6 mg Documented By: RAFFY Metoprolol Succinate (Metoprolol Succinate Er 25 Mg Tab.Er.24h) 25 mg PO DAILY [facility]; Protocol Last Admin: 12/17/23 10:20 Dose: 25 mg Documented By: BANDAR Nitroglycerin (Nitroglycerin 0.4 Mg Tab.Subl) 0.4 mg SUBLINGUAL Q5M PRN PRN Reason: chest pain Patient Own ( Budesonide 3 Mg Capsule,Delayed, Extend.Release) 9 mg PO DAILY [facility] Last Admin: 12/17/23 10:22 Dose: 9 mg Documented By: BANDAR Nystatin (Nystatin Powder 15 Gm Bottle) 1 appl TOPICAL BID [facility]; Protocol Last Admin: 12/17/23 10:22 Dose: 1 appl Documented By: BANDAR Omeprazole (Omeprazole 20 Mg Capsule.) 20 mg PO DAILY@0630 [facility] Last Admin: 12/17/23 06:29 Dose: 20 mg Documented By: TOSIN Ondansetron HCl (Ondansetron Hcl 4 Mg/2 Ml Vial) 4 mg IVPUSH Q8H PRN PRN Reason: Nausea and Vomiting Last Admin: 12/09/23 21:48 Dose: 4 mg Documented By: DEVENDRA Pharmacy Consult (Consult Rx Vancomycin Dosing) 1 each MISCELLANE DAILY PRN PRN Reason: Consult order Potassium Chloride (Potassium Chloride Er 20 Meq Tab.Er.Prt) 40 meq PO DAILY [facility] Last Admin: 12/17/23 10:20 Dose: 40 meq Documented By: BANDAR Ropinirole HCl (Ropinirole Hcl 0.5 Mg Tablet) 0.5 mg PO BID@1200,1800 [facility] Last Admin: 12/16/23 17:50 Dose: 0.5 mg Documented By: LIUDMILA Ropinirole HCl (Ropinirole Hcl 1 Mg Tablet) 1 mg PO BEDTIME [facility] Last Admin: 12/16/23 22:25 Dose: 1 mg Documented By: CECILE Sodium Chloride (0.9 % Sodium Chloride Flush 3 Ml Syringe) 3 ml IVFLUSH QSHIFT [facility] Last Admin: 12/17/23 10:23 Dose: 3 ml Documented By: BANDAR Labs 12/14/23 10:32 12/17/23 06:47 Labs: Laboratory Results - last 24 hr 12/17/23 06:47 Anion Gap 16 Estim Creat Clear Calc 63.6 Estimated GFR > 60 Random Glucose 77 Calcium 8.8 Assessment and Plan (1) Pneumonia: Status: Acute Plan 83-year-old female with a PMH significant for?ulcerative colitis, hx of DVT on Eliquis, HFpEF, restless leg syndrome/sciatica, chronic leg pain on chronic opioids, HLD who presents to the ED for evaluation of worsening confusion, lethargy, and leg pain?x2 days. Pt will be admitted to the hospital for treatment and further evaluation of acute hypoxic respiratory failure and encephalopathy in the setting of multifocal pneumonia. Acute hypoxic respiratory failure in the setting of multifocal pneumonia and heart failure, hypoxia improved. -Continue oxygen and maintain sat > 92 -was on Ceftriaxone and Azithro 12/08, changed to Vanco and Zosyn in light of new hypotension and concern for sepsis, however sepsis work up was negative., -changed to PO Abx (Augmentin +Doxy 12/14 ) for 5 more day, WBC normal -cultures negative, repeat blood cultures negative at48 HypOtension--likely med related not sepsis (Torsemide, Imdure, aldactone and topro stoppedl) Received multiple dose of IVF and todate positive 3 liters. restarted Metoprolol at lower dose of 25 mg, previously 75 Acute encephalopathy related to acute illness above, improved and back to baseline, ct negative Initial Lactic acidosis d/t hypoxia, resolved Hypokalemia--replace, restart aldactone today, po replacement Elevated troponins--mild increase, repeat normal, likey d/t pulmonary process above Pulmonary edema as evident on exam, CXR and increased BNP--consistent with acute diastolic CHF--Echo EF 55 to 60%, -was on IV Lasix 40 daily, now changed to PO, clinically assymptomatic, continue toprol and Adactone. Torsemide replaced with lasix Tachycardia--resolved HTN--BP controlled on toprol, hold Imdur, continue aldactone and lasix Fall at home, negative fracture on xray PT eval Hx of DVT Eliquis HLD Statin Restless leg syndrome Continue home ropinirole somnolence likey d/t over sedation from Neurontin dose reduced Full Code DVT Prophylaxis: On Eliquis need for inpatient for treatment of?acute hypoxic respiratory failure and encephalopathy in the setting of multifocal pneumonia, ac tive Hypotension being managed with IVF and pressor DC to STR when medically optimized Quality Stroke Does the patient have a stroke diagnosis?: No VTE Prior VTE?: No VTE Risk Level:: Medical - moderate - high VTE Device Contraindication: Treatment Not Indicated VTE Drug Contraindication: N/A - Med Ordered
--- NOTE | 2023-12-17 11:18 | HO.PM.IMPN ---
Subjective Subjective Date of Service: 12/17/23 Physical Exam Vital Signs: Vital Signs: Last Vital Signs Temp 97 F 12/17/23 08:00 Pulse 67 12/17/23 08:00 Resp 18 12/17/23 08:00 BP 134/65 12/17/23 08:00 Pulse Ox 96 12/17/23 08:00 O2 Del Method Nasal Cannula 12/17/23 08:00 O2 Flow Rate 2 12/17/23 08:00 BMI result Body Mass Index 31.3 Objective Data Active Medications Acetaminophen (Acetaminophen 325 Mg Tablet) 650 mg PO Q6H PRN PRN Reason: Pain, Mild (Pain Scale 1-3) Last Admin: 12/17/23 10:22 Dose: 650 mg Documented By: BANDAR Amoxicillin/Clavulanate Potassium (Amoxicillin/Potassium Clav 875 Mg Tablet) 875 mg PO BID COUNT INCLUDES THE [facility] Last Admin: 12/17/23 10:21 Dose: 875 mg Documented By: BANDAR Apixaban (Apixaban 5 Mg Tablet) 5 mg PO BID COUNT INCLUDES THE [facility] Last Admin: 12/17/23 10:20 Dose: 5 mg Documented By: BANDAR Atorvastatin Calcium (Atorvastatin Calcium 40 Mg Tablet) 40 mg PO BEDTIME COUNT INCLUDES THE [facility] Last Admin: 12/16/23 22:25 Dose: 40 mg Documented By: CECILE Azathioprine (Azathioprine 50 Mg Tablet) 50 mg PO BID COUNT INCLUDES THE [facility] Last Admin: 12/17/23 10:21 Dose: 50 mg Documented By: BANDAR Benzonatate (Benzonatate 100 Mg Capsule) 100 mg PO TID PRN PRN Reason: Cough Last Admin: 12/16/23 08:05 Dose: 100 mg Documented By: NISHANT Docusate Sodium (Docusate Sodium 100 Mg Capsule) 100 mg PO DAILY PRN PRN Reason: Constipation Last Admin: 12/11/23 23:42 Dose: 100 mg Documented By: RAFFY Doxycycline Monohydrate (Doxycycline Monohydrate 100 Mg Capsule) 100 mg PO BID COUNT INCLUDES THE [facility] Last Admin: 12/17/23 10:21 Dose: 100 mg Documented By: BANDAR Duloxetine HCl (Duloxetine Hcl 20 Mg Capsule.Dr) 20 mg PO BEDTIME COUNT INCLUDES THE [facility] Last Admin: 12/16/23 22:26 Dose: 20 mg Documented By: CECILE Empagliflozin (Empagliflozin 10 Mg Tablet) 10 mg PO DAILY COUNT INCLUDES THE [facility] Last Admin: 12/17/23 10:20 Dose: 10 mg Documented By: BANDAR Furosemide (Furosemide 40 Mg Tablet) 40 mg PO DAILY COUNT INCLUDES THE [facility]; Protocol Last Admin: 12/17/23 10:20 Dose: 40 mg Documented By: BANDAR Gabapentin (Gabapentin 100 Mg Capsule) 200 mg PO TID COUNT INCLUDES THE [facility] Last Admin: 12/17/23 10:19 Dose: 200 mg Documented By: BANDAR Melatonin (Melatonin 3 Mg Tablet) 6 mg PO BEDTIME PRN PRN Reason: Insomnia Last Admin: 12/11/23 23:41 Dose: 6 mg Documented By: RAFFY Metoprolol Succinate (Metoprolol Succinate Er 25 Mg Tab.Er.24h) 25 mg PO DAILY COUNT INCLUDES THE [facility]; Protocol Last Admin: 12/17/23 10:20 Dose: 25 mg Documented By: BANDAR Nitroglycerin (Nitroglycerin 0.4 Mg Tab.Subl) 0.4 mg SUBLINGUAL Q5M PRN PRN Reason: chest pain Patient Own ( Budesonide 3 Mg Capsule,Delayed, Extend.Release) 9 mg PO DAILY COUNT INCLUDES THE [facility] Last Admin: 12/17/23 10:22 Dose: 9 mg Documented By: BANDAR Nystatin (Nystatin Powder 15 Gm Bottle) 1 appl TOPICAL BID COUNT INCLUDES THE [facility]; Protocol Last Admin: 12/17/23 10:22 Dose: 1 appl Documented By: BANDAR Omeprazole (Omeprazole 20 Mg Capsule.Dr) 20 mg PO DAILY@0630 COUNT INCLUDES THE [facility] Last Admin: 12/17/23 06:29 Dose: 20 mg Documented By: TOSIN Ondansetron HCl (Ondansetron Hcl 4 Mg/2 Ml Vial) 4 mg IVPUSH Q8H PRN PRN Reason: Nausea and Vomiting Last Admin: 12/09/23 21:48 Dose: 4 mg Documented By: DEVENDRA Pharmacy Consult (Consult Rx Vancomycin Dosing) 1 each MISCELLANE DAILY PRN PRN Reason: Consult order Potassium Chloride (Potassium Chloride Er 20 Meq Tab.Er.Prt) 40 meq PO DAILY COUNT INCLUDES THE [facility] Last Admin: 12/17/23 10:20 Dose: 40 meq Documented By: BANDAR Ropinirole HCl (Ropinirole Hcl 0.5 Mg Tablet) 0.5 mg PO BID@1200,1800 COUNT INCLUDES THE [facility] Last Admin: 12/16/23 17:50 Dose: 0.5 mg Documented By: LIUDMILA Ropinirole HCl (Ropinirole Hcl 1 Mg Tablet) 1 mg PO BEDTIME COUNT INCLUDES THE [facility] Last Admin: 12/16/23 22:25 Dose: 1 mg Documented By: CECILE Sodium Chloride (0.9 % Sodium Chloride Flush 3 Ml Syringe) 3 ml IVFLUSH QSHIFT COUNT INCLUDES THE [facility] Last Admin: 12/17/23 10:23 Dose: 3 ml Documented By: BANDAR Labs 12/14/23 10:32 12/17/23 06:47 Labs: Laboratory Results - last 24 hr 12/17/23 06:47 Anion Gap 16 Estim Creat Clear Calc 63.6 Estimated GFR > 60 Random Glucose 77 Calcium 8.8 Assessment and Plan (1) Pneumonia: Status: Acute Plan 83-year-old female with a PMH significant for?ulcerative colitis, hx of DVT on Eliquis, HFpEF, restless leg syndrome/sciatica, chronic leg pain on chronic opioids, HLD who presents to the ED for evaluation of worsening confusion, lethargy, and leg pain?x2 days. Pt will be admitted to the hospital for treatment and further evaluation of acute hypoxic respiratory failure and encephalopathy in the setting of multifocal pneumonia. Acute hypoxic respiratory failure in the setting of multifocal pneumonia and heart failure, hypoxiia improved. -Continue oxygen and maintain sat > 92 -was on Ceftriaxone and Azithro 12/08, changed to Vanco and Zosyn in light of new hypotension and concern for sepsis, however sepsis work up was negative., -changed to PO Abx (Augmentin +Doxy 12/14 ) for 5 more day, WBC normal -cultures negative, repeat blood cultures negative at48 HypOtension--concern of possible med related (Torsemide, Imdure, aldactone and toprol).. Holding these meds now. Received multiple dose of IVF and todate positive 4 liters. continue hold BP meds and diuretics. Acute encephalopathy related to acute illness above, improved and back to baseline, ct negative Initial Lactic acidosis d/t hypoxia, resolved Hypokalemia--replace, restart aldactone later Elevated troponins--mild increase, repeat normal, likey d/t pulmonary process above Pulmonary edema as evident on exam, CXR and increased BNP--consistent with acute diastolic CHF--Echo EF 55 to 60%, -continue IV Lasix 40 daily, monitor electrolytes, and I/O, cardiology consult--resume toprolol and aldactone when BP stable Tachycardia--resolved HTN--restart toprol Fall at home, negative fracture on xray PT eval Hx of DVT Eliquis HLD Statin Restless leg syndrome Continue home ropinirole somnolence likey d/t over sedation from Neurontin, reduce dose Full Code DVT Prophylaxis: On Eliquis need for inpatient for treatment of?acute hypoxic respiratory failure and encephalopathy in the setting of multifocal pneumonia, ac tive Hypotension being managed with IVF and pressor DC to STR when medically optimized Quality Stroke Does the patient have a stroke diagnosis?: No VTE Prior VTE?: No VTE Risk Level:: Medical - moderate - high VTE Device Contraindication: Treatment Not Indicated VTE Drug Contraindication: N/A - Med Ordered
[2023-12-17 12:00] VITALS: BP 151/67; PULSE 69; RESP 18; TEMP 36.3; O2SAT 98
[2023-12-17] MEDS: Spironolactone 25 MG TABLET PO (13:09)
[2023-12-17] MEDS: rOPINIRole HCL 0.5 MG TABLET PO ×2 (13:09→17:25)
[2023-12-17 15:31] VITALS: BP 115/55; PULSE 65; RESP 18; TEMP 35.9; O2SAT 96
--- NOTE | 2023-12-17 15:34 | MHC.CM.PN ---
EMR reviewed and per MD rounds, pt is not medically cleared for discharge due to management of pneumonia and hypotension. Anticipating pt will discharge to [facility] tomorrow 12/17.
[2023-12-17 20:00] VITALS: BP 129/61; PULSE 68; RESP 18; TEMP 36.4; O2SAT 96
[2023-12-17] MEDS: Atorvastatin Calcium 40 MG TABLET PO (22:42)
[2023-12-17] MEDS: rOPINIRole HCL 1 MG TABLET PO (22:42)
[2023-12-17] MEDS: DULoxetine HCl 20 MG CAPSULE.DR PO (22:43)
[2023-12-18] VITALS: BP 133/63; PULSE 65; RESP 18; TEMP 36.2; O2SAT 96
[2023-12-18] MEDS: 0.9 % Sodium Chloride Flush 3 ML SYRINGE IVFLUSH ×2 (01:18→09:34)
[2023-12-18 04:00] VITALS: BP 145/67; PULSE 65; RESP 18; TEMP 36.3; O2SAT 96
[2023-12-18 06:00] VITALS: BMI 31.0
[2023-12-18 06:32] LABS: CDiff Gene PCR NEGATIVE (Negative)
[2023-12-18] MEDS: Omeprazole 20 MG CAPSULE.DR PO (06:35)
[2023-12-18 07:20] LABS: Anion Gap 17 (12-20); Blood Urea Nitrogen 11 mg/dL (9-16); Calcium 8.8 mg/dL (8.4-10.2); Carbon Dioxide 23 mmol/L (22-29); Chloride 106 mmol/L (96-108); Creatinine Clr Calc Pharmacy 63.3; Estimated Glomerular Filt Rate > 60; Glucose Random 82 mg/dL (60-115); Potassium 3.5 mmol/L (3.3-5.1); Sodium 142 mmol/L (135-145)
[2023-12-18 07:28] VITALS: BP 154/67; PULSE 63; RESP 20; TEMP 36.6; O2SAT 97
--- NOTE | 2023-12-18 09:04 | P.DS_ITS ---
DS: Providers Provider Date of Service: 12/18/23 Date of admission: 12/09/23 11:56 Primary care physician: Mick Tatum MD Consults: 12/11/23 09:43 Consult to Wound Care Routine Reason for consultation: wnd 12/14/23 10:14 Consult to Cardiology Routine Consulting Provider: [facility] Reason for consultation: acute on chronic heart failure Has provider been notified: Yes DS: Diagnosis Discharge Diagnosis (1) Pneumonia: Status: Acute DS: Summary Hospital Course Hospital Course: admission hpi Chief Complaint: Confusion, lethargy Pt is an 83-year-old female with a PMH significant for?ulcerative colitis, hx of DVT on Eliquis, HFpEF, restless leg syndrome/sciatica, chronic leg pain on chronic opioids, HLD who presents to the ED for evaluation of worsening confusion, lethargy, and leg pain?x2 days. Family is at bedside who help supplement HPI, though patient currently appears alert and oriented x3, though with limited ability to provide significant details. Patient apparently has not been eating or drinking much and refusing all home medications for the past 3 days, including her chronic opioids. Family note patient was lethargic yesterday and barely arousable. Today lethargy continued, but patient was inconsolable, crying out in pain though still refusing to take medications. Received 80 mcg of fentanyl from EMS without relief. Patient herself complains only of right posterior thigh pain. Denies shortness of breath or cough. No difficulty breathing. Denies fever, chills. Has had some nausea but no vomiting. Denies abdominal pain. No chest pain/pressure, palpitations In the ED pt with low-grade fever 100.1, tachycardia to 99, and hypoxia as low as 86% on RA. Labs were significant for lactic acid 2.1 with repeat 1.0, bilirubin 1.5, and initial troponin 21.9 with repeat 24.0. No leukocytosis. No significant electrolyte abnormalities. Stable H&H. CXR showed trace left-sided pleural effusion and adjacent left lower lobe atelectasis versus infiltrates, new when compared to prior CT. CT?of chest found new patchy right upper lobe ground-glass airspace opacities representing atelectasis versus early infiltrates and left upper lobe atelectasis versus infiltrates. Also redemonstrated bilateral predominantly lower lobe bronchiectasis with chronic interstitial prominence. Also found increased bibasilar scarring with sup erimposed atelectasis. Ct of head negative for intracranial hemorrhage or mass effect, but found generalized atrophy and chronic small-vessel white matter ischemic changes. EKG demonstrated sinus tachycardia with occasional PVCs nonspecific ST and T-wave abnormalities. Pt was treated with IVF, acetaminophen, oxycodone, IVF, morphine, cefepime, and azithromycin. Pt will be admitted to the hospital for treatment and further evaluation of acute hypoxic respiratory failure and encephalopathy in the setting of multifocal pneumonia. Hospial course: The patient presented with lethargy and confusion and was diagnosed with acute hypoxic respiratory failure, accompanied by multifocal pneumonia on imaging. Her hospital course was complicated by hypotension, necessitating intravenous fluids and exacerbating heart failure. Although respiratory failure and hypoxia have improved, the patient currently requires 1 liter of oxygen and maintains a saturation of 96%. Initially, the pneumonia was treated with Ceftriaxone and Azithromycin, but due to worsening symptoms and concern for sepsis, treatment was switched to Vancomycin and Zosyn. However, it was later determined that the hypotension was medication-related. The patient has since been transitioned to oral Doxycycline, having been on antibiotics for a total of 10 days since December 14. She is afebrile with normal white blood cell count. HypOtension--This was attributed to multiple BP meds including Torsemide, Imdur, aldactone and toprol stoppedl which were stopped and patient given IVF with resolution of the hypotenions. Acute metabolic encephalopathy related to acute illness above infection--CT on presentation was unremarkable. She is now lucid. Initial Lactic acidosis d/t hypoxia not sepsis, resolved Hypokalemia--related to diuretics and diarrhea, repleted and resolved, Elevated troponins--mild increase, repeat normal, likey d/t pulmonary process above Pulmonary edema/Acute diastolic CHF--she was likely tipped into heart failure from IVF and could not be on diuretics due to hypotension. Echo showed EF 55 to 60%. She was treated with IV Lasix which has been changed to Oral Lasix in place of Torsemide, will also continue Aldactone, Toprol dose has been reduced from 75 to 50 with HR in 60s. She appear compensated Tachycardia--resolved HTN--continue Lasix, Toprol dose reduced as above, Imdur reduced to 30 twice daily from 60 mg twice daily Fall at home, negative fracture on xray history of DVT--continue Eliquis HLD Statin Restless leg syndrome Continue home ropinirole Time Attestation Discharge Coordination Time (in mins): 45 Quality: Safe Use of Opioids Does Pt have an Active Cancer Diagnosis on the Problem List?: No Quality: Stroke Does the patient have a stroke diagnosis?: No Physical Exam Vital Signs: Vital Signs: Last Vital Signs Temp 97.9 F 12/18/23 07:28 Pulse 63 12/18/23 07:28 Resp 20 12/18/23 07:28 BP 154/67 H 12/18/23 07:28 Pulse Ox 97 12/18/23 07:28 O2 Del Method Nasal Cannula 12/18/23 07:28 O2 Flow Rate 1 12/18/23 07:28 BMI result Body Mass Index 31.0 General: AO X 3, no acute distress Resp: CTA bilateral CVS: S1,S2,RRR, 1 + leg edema GI: +BS, NT, no distention Skin: No rash Neuro: motor grossly intact Psych: appropriate affect DS: Data Data Completed and Pending Labs on day of discharge: Laboratory Results - last 24 hr 12/18/23 12/18/23 04:44 06:24 Sodium 142 Potassium 3.5 Chloride 106 Carbon Dioxide 23 Anion Gap 17 BUN 11 Creatinine 0.66 Estim Creat Clear Calc 63.3 Estimated GFR > 60 Random Glucose 82 Calcium 8.8 C. difficile Tox B Gene NEGATIVE Discharge Plan Discharge Anticipated Discharge Date/Time: 12/18/23 09:37 Patient Disposition: Xfer SNF Discharge Diagnosis: acute hypoxic respiratory failure, Pneumonia, CHF Referrals: [facility] [Outside] - 1 Week Mick Tatum MD [Primary Care Provider] - 1 Week Discharge Medications: New furosemide 40 mg Tablet 40 mg PO DAILY Qty: 30 0RF Protocol: Hold for SBP< HOLD for SBP < : 90 isosorbide mononitrate 30 mg Tablet Extended Release 24 Hr 30 mg PO BID Qty: 60 0RF Protocol: Hold for SBP< HOLD for SBP < : 90 doxycycline monohydrate 100 mg Capsule 100 mg PO BID Qty: 1 0RF amoxicillin-pot clavulanate 875-125 mg Tablet 1 tab PO BID Qty: 1 0RF Continued budesonide 3 mg capsule,delayed,extend.release 9 mg PO DAILY Qty: 270 3RF ropinirole 0.5 mg tablet 0.5 mg PO BID@1200,1800 nitroglycerin 0.4 mg tablet, sublingual 0.4 mg sublingual Q5M MDD 1.2mg (3 doses) PRN (Reason: chest pain) Qty: 30 0RF Rx Instructions: do not exceed 3 doses per episode atorvastatin 40 mg tablet 1 tab PO BEDTIME azathioprine 50 mg tablet 50 mg PO BID pantoprazole 40 mg tablet,delayed release (DR/EC) 40 mg PO DAILY@0630 ropinirole 0.5 mg tablet 1 mg PO BEDTIME Eliquis 5 mg tablet 5 mg PO BID spironolactone 25 mg tablet 25 mg PO DAILY@0900,1800 Jardiance 10 mg tablet 10 mg PO DAILY metoprolol succinate 50 mg tablet extended release 24 hr 50 mg PO DAILY Rx Instructions: with 25 mg; TDD 75 MG duloxetine 20 mg capsule,delayed release(DR/EC) 20 mg PO BEDTIME gabapentin 400 mg capsule 800 mg PO TID oxycodone 5 mg tablet 5 mg PO BID PRN (Reason: Pain) Discontinued torsemide 20 mg tablet 2 tab PO DAILY isosorbide mononitrate 60 mg tablet extended release 24 hr 60 mg PO BID@0900,1800 metoprolol succinate 25 mg tablet extended release 24 hr 25 mg PO DAILY Rx Instructions: with 50 mg; TDD 75 MG Discharge Orders: Discharge Order (Routine); Ordered 12/18/23 Ordered By: Krishan Dasilva Diet: Advance to usual diet Activity on Discharge: As tolerated Stand Alone Forms: Patient Portal Discharge page Print Language: Slovak Care Plan Goals: Recovery from acute respiratory failure, penumonia and heart failure and physical deconditioning Health Concerns: Heart failure, pneumonia, respiratory failure Plan of Treatment: Take Doxycyline and Augmentin for 1 more days participate in physical therapy follow up with your docotr continue oxygen and keep saturation at 92% or better Imdur dose changed from 60 mg twice daily to 30 mg twice daily Toprol dose has been reduced to 50 mg daily from 75 Torsemide replaced with Lasix Assessment: see above
[2023-12-18 09:32] VITALS: BP 154/67; PULSE 63
[2023-12-18] MEDS: Gabapentin 100 MG CAPSULE 200 MG PO (09:32)
[2023-12-18] MEDS: Metoprolol Succinate ER 25 MG TAB.ER.24H PO ×2 (09:32→09:52)
[2023-12-18 09:33] VITALS: BP 154/67
[2023-12-18] MEDS: Furosemide 40 MG TABLET PO (09:33)
[2023-12-18] MEDS: Apixaban 5 MG TABLET PO (09:33)
[2023-12-18] MEDS: Empagliflozin 10 MG TABLET PO (09:33)
[2023-12-18] MEDS: Doxycycline Monohydrate 100 MG CAPSULE PO (09:33)
[2023-12-18] MEDS: Spironolactone 25 MG TABLET PO (09:33)
[2023-12-18] MEDS: azaTHIOprine 50 MG TABLET PO (09:33)
[2023-12-18] MEDS: Amoxicillin/Potassium Clav 875 MG TABLET PO (09:33)
[2023-12-18] MEDS: Nystatin Powder 15 GM BOTTLE 1 APPL TOPICAL (09:36)
[2023-12-18 09:52] VITALS: BP 154/67; PULSE 76
[2023-12-18] MEDS: Isosorbide Mononitrate 30 MG TAB.ER.24H PO (09:52)
--- NOTE | 2023-12-18 10:55 | MHC.CM.PN ---
Second IMM 12/17. Pt is medically cleared for discharge to [facility] at [facility] today, pt will transport via [facility] at 12pm. Pt and her son aware and in agreement with plan.
[2023-12-18] MEDS: rOPINIRole HCL 0.5 MG TABLET PO (11:10)
== END 2023-12-18 12:23 | disposition skilled nursing facility (03) | DRG 193 ==
LOC: HO.ED 09:43 → HO.EDOVER 12:08 → HO.IMC 12-10 18:06
PROVIDERS: Admitting Provider Student in an Organized Health Care Education/Training Program; Emergency Provider Emergency Medicine; PCP Family Medicine; Visit Provider Internal Medicine
DX: J18.9 Pneumonia, unspecified organism (principal); G93.41 Metabolic encephalopathy; J96.01 Acute respiratory failure with hypoxia; I50.33 Acute on chronic diastolic (congestive) heart failure; J98.11 Atelectasis; E87.21 Acute metabolic acidosis; D64.9 Anemia, unspecified; E78.5 Hyperlipidemia, unspecified; I95.9 Hypotension, unspecified; G25.81 Restless legs syndrome; Z20.822 Contact with and (suspected) exposure to COVID-19; Z86.718 Personal history of other venous thrombosis and embolism; Z79.01 Long term (current) use of anticoagulants; Z79.899 Other long term (current) drug therapy
CPT/HCPCS: 0241U; 36415; 70450; 71045; 71250; 73522; 80048; 80051; 80076; 80202; 81001; 82550; 82565; 82803; 82947; 83605; 83690; 83735; 83880; 84145; 84484; 85025; 85027; 86140; 87040; 87493; 93005; 93306; 97162; 97530; 99285; C1758; J0456; J0692; J0696; J1940; J2270; J2405; J2543; J3370; J3371; J3480; Q9957

== ENCOUNTER → 2023-12-09 07:30 | Outpatient (BNV) | payer MEDICARE, SELFPAY | PROVIDERS: Admitting Provider Student in an Organized Health Care Education/Training Program; Emergency Provider Emergency Medicine; Visit Provider Internal Medicine Cardiovascular Disease | DX: I49.3 Ventricular premature depolarization (principal) | CPT/HCPCS: 93010 ==

== ENCOUNTER 2023-12-09 11:56 | Outpatient (BNV) | payer MEDICARE, SELFPAY | END 2023-12-12 20:05 | PROVIDERS: Admitting Provider Student in an Organized Health Care Education/Training Program; Emergency Provider Emergency Medicine; PCP Family Medicine; Visit Provider Internal Medicine Cardiovascular Disease | DX: R94.31 Abnormal electrocardiogram [ECG] [EKG] (principal) | CPT/HCPCS: 93010 ==

== ENCOUNTER 2023-12-09 11:56 | Outpatient (BNV) | payer MEDICARE, SELFPAY | END 2023-12-13 07:00 | PROVIDERS: Admitting Provider Student in an Organized Health Care Education/Training Program; Emergency Provider Emergency Medicine; PCP Family Medicine; Visit Provider Internal Medicine Cardiovascular Disease | DX: I50.9 Heart failure, unspecified (principal) | CPT/HCPCS: 93306 ==

== ENCOUNTER → 2023-12-09 11:56 | Outpatient (BNV) | payer MEDICARE, SELFPAY | PROVIDERS: Admitting Provider Student in an Organized Health Care Education/Training Program; Emergency Provider Emergency Medicine; PCP Family Medicine; Visit Provider Internal Medicine Cardiovascular Disease | DX: I50.9 Heart failure, unspecified (principal) | CPT/HCPCS: 99222 ==

== ENCOUNTER → 2023-12-09 11:56 | Outpatient (BNV) | payer MEDICARE, SELFPAY | PROVIDERS: Admitting Provider Student in an Organized Health Care Education/Training Program; Emergency Provider Emergency Medicine; Visit Provider Student in an Organized Health Care Education/Training Program | DX: J18.9 Pneumonia, unspecified organism (principal); J96.01 Acute respiratory failure with hypoxia; G93.40 Encephalopathy, unspecified | CPT/HCPCS: 99223; 99232; 99233; 99239; 99499 ==

== ENCOUNTER 2023-12-19 06:12 | Outpatient (REF) | payer SELFPAY ==
[2023-12-19 06:34] LABS: Hematocrit 35.4 % (37.0-47.0); Hemoglobin 11.1 g/dl (12.0-16.0); Mean Corpuscular HGB Conc 31.4 g/dl (31.0-35.0); Mean Corpuscular Hemoglobin 28.9 pg (27.0-33.0); Mean Corpuscular Volume 92.2 fL (80.0-98.0); Mean Platelet Volume 9.8 fL (9.4-12.3); NRBC Pct Auto 0.4 /100WBC (0.0-0.2); Platelet Count 443 X10*3/uL (160-400); Red Blood Count 3.84 X10*6/uL (4.20-5.50); Red Cell Distribution Width 18.6 % (11.0-16.0); White Blood Count 7.8 X10*3/uL (4.8-10.8)
[2023-12-19 07:00] LABS: Alanine Aminotransferase 24 U/L (0-31); Albumin Level 2.7 g/dL (3.5-5.0); Alkaline Phosphatase 117 U/L (39-117); Anion Gap 15 (12-20); Aspartate Amino Transferase 39 U/L (5-31); Bilirubin Total 0.7 mg/dL (0.0-1.0); Blood Urea Nitrogen 11 mg/dL (9-16); Calcium 8.7 mg/dL (8.4-10.2); Carbon Dioxide 26 mmol/L (22-29); Chloride 104 mmol/L (96-108); Estimated Glomerular Filt Rate > 60; Glucose Random 92 mg/dL (60-115); Potassium 3.3 mmol/L (3.3-5.1); Sodium 142 mmol/L (135-145); Total Protein 5.5 g/dL (6.5-8.0)
[2023-12-19 08:23] LABS: Band Neutrophils Percent 8 % (3-5); Basophils Abs Manual 0.1 X10*3/uL (0.0-0.2); Basophils Percent Manual 1 % (0-2); Eosinophils Absolute Manual 0.1 X10*3/uL (0.0-0.4); Eosinophils Percent Manual 1 % (0-4); Lymphocytes Absolute Manual 0.6 X10*3/uL (1.2-4.9); Lymphocytes Percent Manual 8 % (20-40); Monocytes Absolute Manual 0.6 X10*3/uL (0.1-1.2); Monocytes Percent Manual 8 % (2-11); Neutrophils Absolute Manual 6.4 X10*3/uL (2.0-8.3); Neutrophils Percent Manual 74 % (45-73); Nucleated Red Blood Cells 3 /100WBC (0-0)
[2023-12-19 08:25] LABS: RBC Morphology NOTED
[2023-12-19 08:26] LABS: Acanthocytes 3+ (>5) /OIF; Large Platelet PRESENT; Platelet Estimate NORMAL (NORMAL); Platelet Morphology Comment NOTED; Schistocytes 3+ (>5) /OIF; Spherocytes 2+ (3-5) /OIF
== END 2023-12-19 06:13 | disposition home or self-care (01) ==
LOC: HO.MMNH2L 06:12
PROVIDERS: Visit Provider Family Medicine
DX: I10 Essential (primary) hypertension (principal)
CPT/HCPCS: 36415; 80053; 85007; 85027

== ENCOUNTER 2024-01-16 13:51 | Emergency (ER) | payer MEDICARE, SELFPAY ==
[2024-01-16 14:17] VITALS: BP 100/80; BP 106/56; PULSE 70; PULSE 90; RESP 18; TEMP 35.7; O2SAT 93; O2SAT 95
--- NOTE | 2024-01-16 14:33 | ED.GENADULT ---
HPI - General Adult General Chief complaint: Fall Stated complaint: FALL,VNA REFUSED TO SEE PT/DC STR T-1 PER EMS Time Seen by Provider: 01/16/24 14:32 History of Present Illness ED Provider: Anna Marie LANE narrative: The patient is an 83-year-old woman who was hospitalized at this hospital last month for pneumonia. She was admitted on December 08 and discharged on December 17. She has been at the [facility] facility for about a month. She was discharged yesterday. She returned home. Today she was going to the bathroom. Her son was helping her. Apparently he briefly let go of her and she lost her balance and fell. She did not sustain any head injury. She sustained some skin tears to the right elbow in the right hand. She has not feel that anything is broken. She feels that she still remains quite weak and has trouble getting up and down and managing at home. No recent fever, sweats, chills. Related Data Home Medications ?Medication ?Instructions ?Recorded ?Confirmed apixaban 5 mg tablet (Eliquis) 5 mg PO BID 12/02/20 01/16/24 ropinirole 0.5 mg tablet 1 mg PO BEDTIME 12/02/20 01/16/24 atorvastatin 40 mg tablet 1 tab PO BEDTIME 05/11/21 01/16/24 spironolactone 25 mg tablet 25 mg PO DAILY@0900,1800 09/01/22 01/16/24 ropinirole 0.5 mg tablet 0.5 mg PO BID@1200,1800 09/06/22 01/16/24 duloxetine 20 mg capsule,delayed 20 mg PO BEDTIME 08/31/23 01/16/24 release gabapentin 400 mg capsule 800 mg PO TID 08/31/23 01/16/24 metoprolol succinate 50 mg 50 mg PO DAILY 08/31/23 01/16/24 tablet,extended release 24 hr oxycodone 5 mg tablet 5 mg PO BID PRN Pain 08/31/23 01/16/24 azathioprine 50 mg tablet 50 mg PO BID 12/09/23 01/16/24 pantoprazole 40 mg tablet,delayed 40 mg PO DAILY@0630 12/09/23 01/16/24 release Previous Rx's ?Medication ?Instructions ?Recorded nitroglycerin 0.4 mg sublingual 0.4 mg sublingual Q5M PRN chest 09/06/22 tablet pain #30 tabs furosemide 40 mg tablet 40 mg PO DAILY #30 tabs 12/18/23 isosorbide mononitrate 30 mg 30 mg PO BID #60 tabs 12/18/23 tablet,extended release 24 hr budesonide 3 mg 9 mg (3 x 3 mg) PO DAILY #270 caps 12/20/23 capsule,delayed,extended release Allergies Allergy/AdvReac Type Severity Reaction Status Date / Time dogs, cats etc.. Allergy Unknown Unknown Uncoded 01/16/24 14:20 barium Allergy Hives Uncoded 01/16/24 14:20 Review of Systems Review of Systems: Yes all other systems are reviewed and are negative ON LICENSE OF [facility] Past Medical History Medical History History of CHF (congestive heart failure) Constipation Acute proctitis Hemorrhoids Spinal abscess Restless leg syndrome HTN (hypertension) Pre-diabetes DVT (deep venous thrombosis) Colitis Ulcerative colitis Surgical History Hx of shoulder surgery Social History Social History Household Members: Family Household Members Other:: 2 Housing: House Do you presently have visiting nurse or other home services: Yes Alcohol intake: never Patient Tobacco Use Status: Never used Tobacco Smoked in Last 30 Days: No Use of substances other than those prescribed or required for medical reasons: No Advance Directives: Yes Advance Directives on File: Yes Advance Directives Date on File: 11/16/22 Do you have a plan to hurt others: No Plan service: No Current occupational status: retired Physical Exam ED Vital Signs: Vital Signs - 24 hr 01/16/24 14:17 01/16/24 16:17 01/16/24 18:08 Temperature 96.3 F L 97.8 F 97.8 F Pulse Rate 70 64 56 Respiratory Rate 18 18 15 Blood Pressure 106/56 L 98/62 129/56 L Pulse Oximetry 93 95 93 Oxygen Delivery Method Room Air Room Air Room Air 01/16/24 20:11 Temperature 98.0 F Pulse Rate 65 Respiratory Rate 18 Blood Pressure 114/54 L Pulse Oximetry 97 Oxygen Delivery Method Room Air BMI result Body Mass Index 30.0 Const Other: The patient is a frail looking older woman who is awake and alert. She does not appear in any acute distress. Her mental status is normal. HENMT Other: Face is symmetrical. Mucous membranes moist. Eyes Other: Pupils are round equal, conjunctivae are clear Neck Other: No JVD, moving her neck easily Resp Effort & Inspection: normal respiratory effort Auscultation: clear to auscultation bilaterally Cardio Rate: regular rate Rhythm: regular rhythm Heart sounds: S1 normal heart sound present and S2 normal heart sound present GI Other: Abdomen is soft and nontender Skin Other: The patient has 2 areas of injury to the skin of her right arm. One area is at the elbow and the other area is on the dorsum of the right hand. The skin injury to the elbow shows an abrasion with missing skin. This is essentially a skin tear with the skin completely avulsed. The skin injury on the dorsum of the hand is a skin tear with the skin still present. Neuro Other: The patient is awake and alert. Cranial nerves 2-12 are grossly intact. She moves her upper extremities normally. She moves her lower extremities symmetrically but weakly. She seems deconditioned. Extrem Other: The patient has good range of motion of the right elbow, the right wrist, and the fingers of the right hand. No deformities. Medications Administered Discontinued Medications Generic Name Dose Route Start Last Admin Trade Name Freq PRN Reason Stop Dose Admin Bacitracin 2 appl 01/16/24 17:01 01/16/24 17:18 Bacitracin Oint 0.9 Gm Packet TOPICAL 01/16/24 17:02 2 appl ONCE ONE Administration Protocol Oxycodone HCl 5 mg 01/16/24 16:50 01/16/24 17:17 Oxycodone Hcl Immed Release 5 Mg Tablet PO 01/16/24 16:51 5 mg ONCE ONE Administration Medical Decision Making Medical Decision Making MDM Narrative: The patient is an 83-year-old woman who sustained a mechanical fall at her home and sustained a skin tear with avulsion at the right elbow and a skin tear on the dorsum of the right hand. She does not seem to have sustained any more serious injuries. The wounds were cleaned with saline. I was able to close the skin tear on the dorsum of the right hand with the Steri-Strips. Good wound edge approximation was achieved. The wound on the elbow is missing a superficial layer of skin and this is essentially an abrasion which can not be closed. This wound was dressed with bacitracin and a dressing. The patient and her family do not feel that she is doing well at home despite having just finished a course of rehab following a hospitalization last month. The patient will therefore be kept in the emergency room for case management and physical therapy evaluation tomorrow as she might be eligible for additional rehab therapy. Lab Data 01/16/24 15:55 01/16/24 15:55 Labs: Lab Results 01/16/24 Range/Units 15:55 WBC 7.1 (4.8-10.8) X10*3/uL RBC 3.58 L (4.20-5.50) X10*6/uL Hgb 10.8 L (12.0-16.0) g/dl Hct 33.1 L (37.0-47.0) % MCV 92.5 (80.0-98.0) fL MCH 30.2 (27.0-33.0) pg MCHC 32.6 (31.0-35.0) g/dl RDW 20.4 H (11.0-16.0) % Plt Count 391 (160-400) X10*3/uL MPV 9.0 L (9.4-12.3) fL Immature Gran % (Auto) 1.3 H (0.0-0.4) % Neut % (Auto) 86.7 H (45-73) % Lymph % (Auto) 5.3 L (20-40) % [place] % (Auto) 5.7 (2-11) % Eos % (Auto) 0.6 (0-4) % Baso % (Auto) 0.4 (0-2) % Lymph # (Auto) 0.4 L (1.2-4.9) X10*3/uL [place] # (Auto) 0.4 (0.1-1.2) X10*3/uL Eos # (Auto) 0.0 (0.0-0.4) X10*3/uL Baso # (Auto) 0.0 (0.0-0.2) X10*3/uL Abs Immat Gran (auto) 0.09 H (0.00-0.03) X10*3/uL Absolute Neuts (auto) 6.2 (2.0-8.3) x10*3/uL Absolute Nucleated RBC 0.000 (0.0-0.012) X10*3/uL Nucleated RBC % (auto) 0.0 (0.0-0.2) /100WBC Sodium 138 (135-145) mmol/L Potassium 4.6 (3.3-5.1) mmol/L Chloride 100 (96-108) mmol/L Carbon Dioxide 28 (22-29) mmol/L Anion Gap 15 (12-20) BUN 22 H (9-16) mg/dL Creatinine 1.35 (0.5-1.4) mg/dL Estim Creat Clear Calc 31.5 Estimated GFR 37 Random Glucose 135 H (60-115) mg/dL Calcium 9.3 (8.4-10.2) mg/dL Magnesium 1.7 (1.6-2.6) mg/dL Total Bilirubin 0.8 (0.0-1.0) mg/dL Direct Bilirubin 0.3 (0.0-0.5) mg/dL AST 22 (5-31) U/L ALT 17 (0-31) U/L Alkaline Phosphatase 102 (39-117) U/L Total Protein 6.3 L (6.5-8.0) g/dL Albumin 3.2 L (3.5-5.0) g/dL Discharge Plan Discharge Clinical Impression: Fall, Multiple skin tears, Physical deconditioning Patient Disposition: Still a Patient Additional Instructions: The skin tear on the back of your right hand was closed with Steri-Strips. These will fall often several days. Steri-Strips may get wet. Do not rub them dry. They should be patted dry if they get wet. Prescriptions: No Action budesonide 3 mg capsule,delayed,extend.release 9 mg PO DAILY Qty: 270 3RF ropinirole 0.5 mg tablet 0.5 mg PO BID@1200,1800 nitroglycerin 0.4 mg tablet, sublingual 0.4 mg sublingual Q5M MDD 1.2mg (3 doses) PRN (Reason: chest pain) Qty: 30 0RF Rx Instructions: do not exceed 3 doses per episode atorvastatin 40 mg tablet 1 tab PO BEDTIME azathioprine 50 mg tablet 50 mg PO BID pantoprazole 40 mg tablet,delayed release (DR/EC) 40 mg PO DAILY@0630 furosemide 40 mg Tablet 40 mg PO DAILY Qty: 30 0RF Protocol: Hold for SBP< HOLD for SBP < : 90 isosorbide mononitrate 30 mg Tablet Extended Release 24 Hr 30 mg PO BID Qty: 60 0RF Protocol: Hold for SBP< HOLD for SBP < : 90 ropinirole 0.5 mg tablet 1 mg PO BEDTIME Eliquis 5 mg tablet 5 mg PO BID spironolactone 25 mg tablet 25 mg PO DAILY@0900,1800 metoprolol succinate 50 mg tablet extended release 24 hr 50 mg PO DAILY Rx Instructions: with 25 mg; TDD 75 MG duloxetine 20 mg capsule,delayed release(DR/EC) 20 mg PO BEDTIME gabapentin 400 mg capsule 800 mg PO TID oxycodone 5 mg tablet 5 mg PO BID PRN (Reason: Pain) Print Language: Yoruba
--- NOTE | 2024-01-16 15:28 | ECG_ITS ---
Test Reason : WEAKNESS Blood Pressure : / mmHG Vent. Rate : 061 BPM Atrial Rate : 061 BPM P-R Int : 168 ms QRS Dur : 094 ms QT Int : 436 ms P-R-T Axes : 061 -38 -05 degrees QTc Int : 438 ms Normal sinus rhythm Left axis deviation Possible Lateral infarct (cited on or before 12-DEC-2023) Abnormal ECG When compared with ECG of 12-DEC-2023 20:05, Premature supraventricular complexes are no longer Present Referred By: Adama Thrasher Electronically Signed By:JESSICA SANDOVAL MD
[2024-01-16 16:03] LABS: MANUAL DIFF FLAG NO
[2024-01-16 16:05] LABS: Basophils Percent Auto 0.4 % (0-2); Eosinophils Percent Auto 0.6 % (0-4); Hematocrit 33.1 % (37.0-47.0); Hemoglobin 10.8 g/dl (12.0-16.0); Imm Gran Abs Auto 0.09 X10*3/uL (0.00-0.03); Imm Gran Pct Auto 1.3 % (0.0-0.4); Lymphocytes Absolute Auto 0.4 X10*3/uL (1.2-4.9); Lymphocytes Percent Auto 5.3 % (20-40); Mean Corpuscular HGB Conc 32.6 g/dl (31.0-35.0); Mean Corpuscular Hemoglobin 30.2 pg (27.0-33.0); Mean Corpuscular Volume 92.5 fL (80.0-98.0); Monocytes Absolute Auto 0.4 X10*3/uL (0.1-1.2); Monocytes Percent Auto 5.7 % (2-11); Neutrophils Absolute Auto 6.2 x10*3/uL (2.0-8.3); Neutrophils Percent Auto 86.7 % (45-73); Platelet Count 391 X10*3/uL (160-400); Red Blood Count 3.58 X10*6/uL (4.20-5.50); Red Cell Distribution Width 20.4 % (11.0-16.0); White Blood Count 7.1 X10*3/uL (4.8-10.8)
[2024-01-16 16:17] VITALS: BP 98/62; PULSE 64; RESP 18; TEMP 36.6; O2SAT 95
[2024-01-16 16:29] LABS: Alanine Aminotransferase 17 U/L (0-31); Albumin Level 3.2 g/dL (3.5-5.0); Alkaline Phosphatase 102 U/L (39-117); Anion Gap 15 (12-20); Aspartate Amino Transferase 22 U/L (5-31); Bilirubin Direct 0.3 mg/dL (0.0-0.5); Bilirubin Total 0.8 mg/dL (0.0-1.0); Blood Urea Nitrogen 22 mg/dL (9-16); Calcium 9.3 mg/dL (8.4-10.2); Carbon Dioxide 28 mmol/L (22-29); Chloride 100 mmol/L (96-108); Creatinine Clr Calc Pharmacy 31.5; Estimated Glomerular Filt Rate 37; Glucose Random 135 mg/dL (60-115); Magnesium 1.7 mg/dL (1.6-2.6); Potassium 4.6 mmol/L (3.3-5.1); Sodium 138 mmol/L (135-145); Total Protein 6.3 g/dL (6.5-8.0)
[2024-01-16] MEDS: oxyCODONE HCl Immed Release 5 MG TABLET PO (17:17)
[2024-01-16] MEDS: Bacitracin Oint 0.9 GM PACKET 2 APPL TOPICAL (17:18)
[2024-01-16 18:08] VITALS: BP 129/56; PULSE 56; RESP 15; TEMP 36.6; O2SAT 93
--- NOTE | 2024-01-16 19:35 | MHC.CM.ED ---
CM received a consult from Dr. Booker. Pt was [facility] at [facility] [place]onia from 12/08-12/17 and was discharged to [facility] for STR. Pt was discharged home from facility yesterday. Pt needed a lift assist and then had a fall while at home. CANDY met with patient today and requested she return to the ED for more rehab. Pt lives with her son. Has a walker. PCP verified. HCP on file. DaughterLashon is with patient and is requesting STR at [facility] or [facility] as first choices. Pt and daughter are agreeable to local referrals. CM will make local referrals. PT is pending. CM will follow for discharge planning.
[2024-01-16 20:11] VITALS: BP 114/54; PULSE 65; RESP 18; TEMP 36.7; O2SAT 97
[2024-01-16 21:44] VITALS: BP 111/51; PULSE 59; RESP 16; TEMP 36.6; O2SAT 93
--- NOTE | 2024-01-16 21:47 | MHC.EDTECH ---
THIS PCT ASSUMED CARE OF PATIENT AT 2100 ,VITALS TAKEN ,AND PATIENT BELONINGS LIST DONE ,PATIENT HAD A CHOCOLATE ICE CREAM FOR SNACK ,PATIENT COMFORTABLE ,WATCHING TELEVISION ,,CALL CRESPO WITHIN PATIENT REACH .BED ALARM ON .
[2024-01-16] MEDS: rOPINIRole HCL 1 MG TABLET PO (22:01)
[2024-01-16] MEDS: Gabapentin 400 MG CAPSULE 800 MG PO (22:01)
[2024-01-16] MEDS: Atorvastatin Calcium 40 MG TABLET PO (22:01)
[2024-01-16] MEDS: Apixaban 5 MG TABLET PO (22:02)
--- NOTE | 2024-01-16 22:17 | PC.NURSE ---
pt denies taking duloxetine, refused to take it
[2024-01-17] VITALS (8 sets, daily range): BP systolic 102–136; BP diastolic 44–59; PULSE 55–63; RESP 14–16; TEMP 36.2–36.9; O2SAT 93–98
--- NOTE | 2024-01-17 00:17 | MHC.EDTECH ---
PATIENT RANG DUE TO INCONIENTANCE EPISODE ,CARE GIVEN ,BED PADS CHANGE ,NEW PURE WICK IN PLACE ,THIS PCT NOTICE PATIENT HAD AN OPEN AREA ON THE MIDDLE OF COCCYX ,BARRIER CREAM APPLY ,VITALS TAKEN AND PATIENT WAS REPOSITION AND BOOSTED UP IN BED ,PATIENT A & O ,CALL CRESPO WITHIN PATIENT REACH .
[2024-01-17] MEDS: Omeprazole 20 MG CAPSULE.DR PO (06:15)
--- NOTE | 2024-01-17 06:16 | MHC.EDTECH ---
Patient slept a couple hours ,0600 ,vitals done ,Patient was incontinent of urine care given and barrier cream apply to coccyx .
[2024-01-17 09:08] LABS: COVID-19 Test Negative (Negative); IDNOW Serial# 152EDE1D
[2024-01-17] MEDS: Gabapentin 400 MG CAPSULE 800 MG PO (09:13)
[2024-01-17] MEDS: Apixaban 5 MG TABLET PO (09:13)
[2024-01-17] MEDS: Isosorbide Mononitrate 30 MG TAB.ER.24H PO (09:13)
[2024-01-17] MEDS: Furosemide 40 MG TABLET PO (09:13)
[2024-01-17] MEDS: azaTHIOprine 50 MG TABLET PO (09:14)
[2024-01-17] MEDS: Metoprolol Succinate ER 50 MG TAB.ER.24H PO (09:14)
[2024-01-17] MEDS: Spironolactone 25 MG TABLET PO (09:17)
--- NOTE | 2024-01-17 11:08 | MHC.CM.ED ---
Patient remains in ER. Physical therapy eval completed. Acute rehab is recommended. Referral made to all 3 acute rehabs. [facility] is able to offer a bed. Patient accepts bed. Patient can leave at 1pm. Franko OWENS booked. [facility] with chart. Patient, daughter LashonGabriela RN and Preeti BETHEA aware. Lashon will bring budesonide to [facility] at facility's request. Continue to monitor for d/c needs.
[2024-01-17] MEDS: rOPINIRole HCL 0.5 MG TABLET PO (11:49)
--- NOTE | 2024-01-17 13:41 | PC.NURSE ---
Spoke to Jonathan sam [facility] for RN to RN report, all questions answered.
== END 2024-01-17 13:30 ==
PROVIDERS: Emergency Provider Emergency Medicine; PCP Family Medicine
DX: S50.311A Abrasion of right elbow, initial encounter (principal); S60.511A Abrasion of right hand, initial encounter; W18.30XA Fall on same level, unspecified, initial encounter; Y93.9 Activity, unspecified; Y92.9 Unspecified place or not applicable; Y99.9 Unspecified external cause status
CPT/HCPCS: 36415; 80048; 80076; 83735; 85025; 87635; 93005; 97162; 99285

== ENCOUNTER → 2024-01-16 15:28 | Outpatient (BNV) | payer MEDICARE, SELFPAY | PROVIDERS: Emergency Provider Emergency Medicine; PCP Family Medicine; Visit Provider Internal Medicine Cardiovascular Disease | DX: R00.1 Bradycardia, unspecified (principal) | CPT/HCPCS: 93010 ==

== ENCOUNTER 2024-02-08 00:05 | Emergency (ER) | payer MEDICARE, SELFPAY ==
[2024-02-08] VITALS (9 sets, daily range): BP systolic 111–187; BP diastolic 44–76; PULSE 66–82; RESP 16–20; TEMP 36.3–36.9; O2SAT 93–98; BMI 35.6
--- NOTE | ~2024-02-08 | XR_ITS ---
EXAMINATION: XR RIBS, RIGHT CLINICAL INFORMATION: Pain, post fall. COMPARISON: Chest radiograph 12/12/2023. TECHNIQUE: 3 views of the right ribs were obtained. FINDINGS: Stable enlargement of the cardiomediastinal silhouette. Low lung volumes limiting evaluation of the lung parenchyma. Diffuse interstitial coarsening with more focal airspace opacities projecting over the right mid lung field and left lower lung field, increased compared to most recent prior. New small left pleural effusion. No pneumothorax. No displaced rib fractures. No acute osseous findings. Unchanged asymmetric widening of the right acromioclavicular joint. Right upper quadrant surgical clips. XR/XR ribs RT min 3V w CXR1V IMPRESSION: 1. No displaced rib fractures. 2. Increased interstitial coarsening and worsening airspace opacities in the right mid lung field and left lower lung field concerning for an infectious or inflammatory process. Recommend short-term follow-up radiograph. 3. New small left pleural effusion. 4. Stable enlargement of the cardiomediastinal silhouette. 5. No pneumothorax.
--- NOTE | ~2024-02-08 | XR_ITS ---
EXAMINATION: AP PELVIS AND LEFT HIP. AP AND LATERAL VIEWS OF THE LEFT KNEE. CLINICAL INFORMATION: Fall COMPARISON: December 09, 2023 TECHNIQUE: AP and lateral left knee. AP view of the pelvis. 2 views of the left hip. FINDINGS: There is no evidence of acute fracture or dislocation of the left knee. Left knee joint spaces are maintained. There is mild spurring of the patellofemoral joint. No significant effusion is appreciated. There is noted to be soft tissue defect about the anterior aspect of the knee consistent with laceration. Vascular calcifications are present. AP film of the pelvis does not demonstrate any evidence of acute fracture or diastases. No destructive bony lesions are identified. Hip joint spaces appear maintained. There is significant degenerative disc disease within the lower lumbar spine. Left hip: 2 views of the left hip do not demonstrate any evidence of acute fracture or dislocation. Hip joint spaces maintained. No destructive bony lesions. XR/XR hip LT w PEL1V IMPRESSION: No acute fracture/dislocation/diastases of the AP pelvis, left knee, or left hip. Severe degenerative change lower lumbar spine.
--- NOTE | ~2024-02-08 | XR_ITS ---
EXAMINATION: AP PELVIS AND LEFT HIP. AP AND LATERAL VIEWS OF THE LEFT KNEE. CLINICAL INFORMATION: Fall COMPARISON: December 09, 2023 TECHNIQUE: AP and lateral left knee. AP view of the pelvis. 2 views of the left hip. FINDINGS: There is no evidence of acute fracture or dislocation of the left knee. Left knee joint spaces are maintained. There is mild spurring of the patellofemoral joint. No significant effusion is appreciated. There is noted to be soft tissue defect about the anterior aspect of the knee consistent with laceration. Vascular calcifications are present. AP film of the pelvis does not demonstrate any evidence of acute fracture or diastases. No destructive bony lesions are identified. Hip joint spaces appear maintained. There is significant degenerative disc disease within the lower lumbar spine. Left hip: 2 views of the left hip do not demonstrate any evidence of acute fracture or dislocation. Hip joint spaces maintained. No destructive bony lesions. XR/XR knee LT 2V IMPRESSION: No acute fracture/dislocation/diastases of the AP pelvis, left knee, or left hip. Severe degenerative change lower lumbar spine.
--- NOTE | ~2024-02-08 | XR_ITS ---
EXAMINATION: XR LUMBOSACRAL SPINE CLINICAL INFORMATION: Low back pain COMPARISON: CT abdomen pelvis 10/28/2022 TECHNIQUE: Three views of the lumbosacral spine. FINDINGS: There is a biconvex thoracolumbar scoliosis present convex to the right in the lumbar spine. Marked degenerative changes are present throughout with disc space narrowing at all levels and associated osteophytes. No bony destructive lesions or acute fractures are seen. Imaging is somewhat suboptimal because of cross table technique for the lateral radiographs. Compared to the 10/28/2022 CT scan, there has been no significant interval change. XR/XR lumbar spine 2-3V IMPRESSION: Scoliosis and marked degenerative changes throughout the lumbar spine.
--- OUTSIDE RECORDS SUMMARY | 2024-02-08 01:02 | XMS_ITS | Continuity of Care Document ---
Author Organization [facility] lt Address [address] [place] [address]- Care Team Providers Care Director Talent Name Role Phone Mick Tatum MD Primary Care Physician [phone] Encounter [facility] Date(s): 05/12/22 - 05/19/22 [facility] [place] Adult [address] [place] [address]- Attending Physician: Mick Tatum MD Allergies, Adverse Reactions, Alerts Substance Reaction Severity Status amoxicillin 1 Active Benadryl Shaking Active Cats Active Contrast Dye Active Dust Active egg-containing compound 2 Re solved Other Food Allergy 3 chicken, peppers, onions Resolved Other Environmental Allergy 4 Active 1Tolerates ceftriaxone 2Pt states she does not know why this is in there. She eats eggs every day and has never had a reaction to a shot 3Pt states she eats chicken every day. Onions make her a little itchy, I will re-enter the onion allergy 4trees, roses Immunizations Given and Recorded Vaccine Date Status Refusal Reason influenza virus vaccine, inactivated 1 05/12/22 Gi kaylyn influenza virus vaccine, inactivated 07/02/21 Pipo rded influenza virus vaccine, inactivated 05/17/20 Pipo rded influenza virus vaccine, inactivated 05/01/19 Give n influenza virus vaccine, inactivated 05/15/18 Pipo rded influenza virus vaccine, inactivated 05/14/18 Pipo rded SARS-CoV-2 (COVID-19) mRNA-1273 vaccine 07/02/21 R ecorded SARS-CoV-2 (COVID-19) mRNA BNT-162b2 vac 09/23/20 Given SARS-CoV-2 (COVID-19) mRNA BNT-162b2 vac 09/02/20 Given pneumococcal 23-valent vaccine 2 07/23/11 Recorded pneumococcal 13-valent vaccine 3 07/23/10 Recorded tetanus/diphtheria/pertussis, acel(Tdap) 4 07/23/08 Recorded tetanus-diphtheria toxoids (Td) 5 07/23/96 Recorde d Not Given Vaccine Date Status Refusal Reason tetanus-diphtheria toxoids (Td) 07/01/19 Not Given Parent Or Guardian Refuses 1Result Comment: [id number] 2Location History: DR LOAIZA 3Location History: DR LOAIZA 4Location History: DR LOAIZA 5Location History: DR LOAIZA Medications atorvastatin 40 mg oral tablet 1 tablet, By Mouth, Daily at bedtime, # 90 tablet, 3 Refills, Maintenance, 05/13/22 7:24:00 EDT, [id number], 157, cm, 05/12/22 13:47:00 EDT, Height, 94.3, kg, 01/19/22 4:25:00 EDT, Dry Weight Start Date: 05/13/22 Status: Ordered azaTHIOprine 50 mg oral tablet 50 mg, 1, tablet, By Mouth, Daily, Refills 0, Maintenance, 01/06/21 11:32:00 EDT, Partial fill uponpatient request if the prescription is for a schedule II opioid drug. Start Date: 01/06/21 Status: Ordered budesonide 3 mg oral delayed release capsule 1 capsule = 3 mg, By Mouth, Daily in AM, # 90 capsule, 2 Refills, Acute 01/18/23 6:58:00 EDT, 01/18/22 6:58:00 EDT, CR Capsule, [facility]/pharmacy #[id number], Partial fill upon patient request if the prescription is for a schedule II opioid drug., 159, cm, 12/21... Start Date: 01/18/22 Stop Date: 01/18/23 Status: Ordered chem 7 (BMP) in 5 days. ICD I 82.0 Please send results to Dr. Tatum chem 7 (BMP) in 5 days. ICD I 82.0 Please send results to Dr. Tatum, See Instructions, # 1 each, Refills 0, Tot. Refills 0, Maintenance, chem 7 (BMP) in 5 days. ICD I 82.0 Please send results to Dr. Tatum, 01/21/22 14:31:00 EDT, Supply Start Date: 01/21/22 Status: Ordered clopidogrel 75 mg oral tablet 75 mg, 1, tablet, By Mouth, Daily, # 30 tablet, Refills 11, Tot. Refills 11, Maintenance, 07/09/21 10:04:00 EST, [id number] Partial fill upon patient request if the prescription is for a schedule II opioid dr... Start Date: 07/09/21 Stop Date: 07/04/22 Status: Ordered Cosopt 2.23%-0.68% ophthalmic solution 1 drops, Eyes, Both, 2 times a day, # 10 mL, 0 Refills, Maintenance, 03/23/21 9:41:00 EDT, Solution, [facility]/pharmacy #[id number], Partial fill upon patient request if the prescription is for a schedule II opioid drug., 1 drops Eyes, Both 2 times a day, 159, cm... Start Date: 03/23/21 Status: Ordered diclofenac 1% topical gel 1 application, Topically, 4 times a day, # 100 Gm, 5 Refills, Maintenance, 05/13/22 9:34:00 EDT, Gel, [facility]/pharmacy #[id number], 157, cm, 05/12/22 13:47:00 EDT, Height, 94.3, kg, 01/19/22 4:25:00 EDT, Dry Weight Start Date: 05/13/22 Status: Ordered Eliquis 5 mg oral tablet 1 tablet, By Mouth, 2 times a day, # 180 tablet, 3 Refills, [facility] [id number], 158, cm, 06/09/21 10:14:00 EST, Height, 98.6, kg, 04/11/21 15:59:00 EDT, Dry Weight Start Date: 06/17/21 Status: Ordered empagliflozin 10 mg oral tablet 1 tablet = 10 mg, By Mouth, Daily in AM, # 90 tablet, 3 Refills, Maintenance, 06/09/21 12:06:00 EST, Tablet, [facility]/pharmacy #[id number], Partial fill upon patient request if the prescription is for a schedule II opioid drug., 158, cm, 06/09/21 10:14:00 EST, H... Start Date: 06/09/21 Stop Date: 06/04/22 Status: Ordered famotidine 40 mg oral tablet 1 tablet = 40 mg, By Mouth, Daily at bedtime, 0 Refills, Maintenance, 02/02/22 14:21:00 EDT, Partial fill upon patient request if the prescription is for a schedule II opioid drug. Start Date: 02/02/22 Status: Ordered gabapentin 400 mg oral capsule 2, capsule, By Mouth, 3 times a day, # 180 capsule, Refills 5, Route to Pharmacy Electronically, [id number], 159, cm, 12/21/21 15:41:00 EDT, Height, 93.6, kg, 01/06/22 9:12:00 EDT, Dry Weight Start Date: 01/17/22 Status: Ordered latanoprost 0.005% ophthalmic solution See Instructions, INSTILL 1 DROP IN BOTH EYES DAILY BEFORE DINNER, # 2.5 mL, 0 Refills, [id number], 18, INSTILL 1 DROP IN BOTH EYES DAILY BEFORE DINNER, 158, cm, 04/14/21 11:28:00 EDT, Height, 98.6, kg, 04/11/21 15:59:00 EDT, Dry Weight Start Date: 04/14/21 Status: Ordered Metoprolol Succinate ER 25 mg oral tablet, extended release 1 tablet, By Mouth, Daily, # 90 tablet, 2 Refills, [id number], 159, cm, 12/21/21 15:41:00 EDT,Height, 93.6, kg, 01/06/22 9:12:00 EDT, Dry Weight Start Date: 01/16/22 Status: Ordered nitroglycerin 0.4 mg sublingual tablet 1 tablet = 0.4 mg, Sublingual, Every 5 minutes, PRN as needed for chest pain, not to exceed 3 doses/15 min--if pain persists, seek medical attention, # 100 tablet, 0 Refills, Maintenance, 03/15/21 12:38:00 EDT, Tablet, [facility]/pharmacy #[id number], Partial fill... Start Date: 03/15/21 Status: Ordered rOPINIRole 0.5 mg oral tablet 1 tablet, By Mouth, 4 times a day, # 360 tablet, 1 Refills, [id number], 159, cm, 11/14/21 9:20:00 EDT, Height, 98, kg, 07/06/21 19:57:00 EST, Dry Weight Start Date: 11/22/21 Status: Ordered spironolactone 25 mg oral tablet 25 mg, 1, tablet, By Mouth, Daily, # 90 tablet, Refills 3, Tot. Refills 3, Maintenance, 11/14/21 9:55:00 EDT, Route to Pharmacy Electronically, [facility]/pharmacy #[id number], Partial fill upon patient request if the prescription is for a schedule II opioid drug.... Start Date: 11/14/21 Stop Date: 11/09/22 Status: Ordered torsemide 20 mg oral tablet 2 tablet = 40 mg, By Mouth, Daily, HOLD FOR NEXT 5 DAYS, THEN GET BLOOD WORK AND RESTART AFTER DISCUSSING WITH PCP, # 90 tablet, 1 Refills, 12/13/21 10:45:00 EDT, [facility]/pharmacy #[id number], 159, cm, 12/13/21 10:22:00 EDT, Height, 97, kg, 12/09/21 12:44:00 ED... Start Date: 12/13/21 Status: Ordered VITAMIN B-1 100 MG TABLET VITAMIN B-1 100 MG TABLET, 1, tablet, By Mouth, Daily, # 90 tablet, 1 Refills, 159, cm, 10/26/21 10:50:00 EDT, Height, 98, kg, 07/06/21 19:57:00 EST, Dry Weight Start Date: 11/10/21 Status: Ordered Problem List Condition Confirmation Course Effective Dates Status H ealth Status Informant Thoracic spine abscess Confirmed Active Acute deep venous thrombosis Confirmed Active Allergic rhinitis Confirmed Active MSSA bacteremia Confirmed Active Chronic kidney disease, stage 3b 1 Confirmed Active DVT (deep venous thrombosis) 2 Confirmed Active Degenerative disc disease, thoracic and lumbar Confirmed Active Dyslipidemia Confirmed Active Elevated blood pressure reading without diagnosis of hypertension Confirmed Active Glaucoma Confirmed Active Herpes zoster Confirmed Active Hypertension Confirmed Active Impaired fasting glucose Confirmed Active Nephrolithiasis Confirmed Active Right lumbar radiculopathy Confirmed Active Depression, major, single episode, moderate Confirmed Active Need for influenza vaccination Confirmed Active Obese class II Confirmed Active Osteoarthritis 3 Confirmed Active Confirmed Active Restless leg syndrome Confirmed Active Rosacea Confirmed Active Sarcoidosis Confirmed Active Peripheral sensory neuropathy Confirmed Active Ulcerative colitis Confirmed Active Vertigo Confirmed Active 1Per chart review meeting GFR criteria 2RT LEG 3BILATERAL KNEES Vital Signs Most recent to oldest [Reference Range]: 1 Height 157 cm (05/12/22 1:47 PM) Oxygen Saturation [94-100 %] 97 % (05/12/22 1:47 PM) Pulse Rate [55-90 bpm] 70 bpm (05/12/22 1:47 PM) Blood Pressure [90-138/55-84 mm Hg] 114/ 69mm Hg (05/12/22 1:47 PM) Mode of Delivery (Oxygen) Room air (05/12/22 1:47 PM) Blood pressure sites Arm, left (05/12/22 1:47 PM) Social History Social History Type Response Smoking Status Never (less than 100 in lifetime) entered on: 06/27/18 Sex Patient Care team information Personnel Name: Rc CORDERO, Mick Clay Address: Address: [address] [place] [id number]
--- OUTSIDE RECORDS SUMMARY | 2024-02-08 01:02 | XMS_ITS | Continuity of Care Document ---
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 Role Phone Rc CORDERO, Mick Clay Primary Care Physician [place] [facility] [place]04[place]20 [facility] [address] [place] [id number] Allergies, Adverse Reactions, Alerts Substance Reaction Severity Status amoxicillin 1 Active Cats Active Contrast Dye Active Dust [...] and Recorded Vaccine Date Status Refusal Reason SARS-CoV-2 (COVID-19) mRNA BNT-162b2 vac 09/23/20 Given SARS-CoV-2 (COVID-19) mRNA BNT-162b2 vac 09/02/20 Given influenza virus vaccine, inactivated 05/17/20 Pipo rded influenza virus vaccine, inactivated 05/01/19 Give n influenza virus vaccine, inactivated 05/14/18 Pipo rded pneumococcal 23-valent vaccine 1 07/23/11 Recorded pneumococcal 13-valent vaccine 2 07/23/10 Recorded tetanus/diphtheria/pertussis, acel(Tdap) 3 07/23/08 Recorded tetanus-diphtheria toxoids (Td) 4 07/23/96 Recorde d Not Given Vaccine Date Status Refusal Reason tetanus-diphtheria toxoids (Td) 07/01/19 Not Given Parent Or Guardian Refuses 1Location History: DR LOAIZA 2Location History: DR LOAIZA 3Location History: DR LOAIZA 4Location History: DR LOAIZA Medications amLODIPine 5 mg oral tablet 5 mg, 1, tablet, By Mouth, Daily, # 90 tablet, Refills 3, Tot. Refills 3, Maintenance, 03/30/20 8:48:00 EDT, Route to Pharmacy Electronically, [facility]/pharmacy #[id number], 157, cm, 03/11/20 12:49:00 EDT, Height, 91, kg, 02/28/20 22:14:00 EDT, Dry Weight Start Date: 03/30/20 Stop Date: 03/25/21 Status: Ordered aspirin 81 mg oral delayed release tablet 81 mg, 1, tablet, By Mouth, Daily, # 30 tablet, Refills 0, Tot. Refills 0, Maintenance, 09/20/20 14:38:00 EST, Route to Pharmacy Electronically, [facility]/pharmacy #[id number], Partial fill upon patient request if the prescription is for a schedule II opioid drug... Start Date: 09/20/20 Status: Ordered budesonide 3 mg oral delayed release capsule 1 capsule = 3 mg, By Mouth, Daily in AM, # 30 capsule, 0 Refills, Acute 11/25/20 10:36:00 EDT, 07/28/20 10:35:00 EST, Partial fill upon patient request if the prescription is for a schedule II opioiddrug. Start Date: 07/28/20 Stop Date: 11/25/20 Status: Ordered budesonide 3 mg oral delayed release capsule 1 capsule = 3 mg, By Mouth, Daily in AM, # 30 capsule, 5 Refills, Acute 02/27/21 10:03:00 EDT, 11/25/20 10:36:00 EDT, [facility]/pharmacy #[id number], Partial fill upon patient request if the prescription is for a schedule II opioid drug., 157, cm, 08/30/20 7:27:0... Start Date: 11/25/20 Stop Date: 02/27/21 Status: Ordered Cosopt ophthalmic solution 1 drops, Eyes, Both, 2 times a day, 0 Refills Start Date: 02/09/09 Status: Ordered diclofenac 1% topical gel 1 application, Topically, 4 times a day, # 100 Gm, 5 Refills, Maintenance, 10/07/19 10:56:00 EDT, Gel, [id number], 160, cm, 08/19/19 8:02:00 EST, Height Start Date: 10/07/19 Status: Ordered Eliquis 5 mg oral tablet 1 tablet, By Mouth, 2 times a day, # 180 tablet, 3 Refills, Maintenance, 07/12/20 14:12:00 EST, [id number], 157, cm, 05/07/20 11:34:00 EDT, Height, 91, kg, 02/28/20 22:14:00 EDT, Dry Weight Start Date: 07/12/20 Status: Ordered gabapentin 400 mg oral capsule See Instructions, 2 capsule By Mouth 3 times a day, # 180 capsule, Refills 0, Tot. Refills 0, Maintenance, 09/27/20 10:29:00 EST, Instructions Replace Required Details, Do Not Route, Partial fill upon patient request if the prescription is for a sched... Start Date: 09/27/20 Status: Ordered HYDROmorphone 2 mg oral tablet 1 tablet = 2 mg, By Mouth, Daily at bedtime, PRN as needed for pain, # 28 tablet, 0 Refills, Maintenance, 08/30/20 10:02:00 EST, Tablet, [facility]/pharmacy #[id number], Partial fill upon patient request, 157, cm, 08/30/20 7:27:00 EST, Height, 91, kg, 02/28/20 22:... Start Date: 08/30/20 Status: Ordered Medrol 32 mg oral tablet See Instructions, 1 tab (32mg) by mouth 12hrs prior to ct scan and 1 tab by mouth 2 hrs (32mg) prior to ct scan on 12/03, # 2 tablet, 0 Refills, Acute 12/03/20 19:00:00 EDT, 10/21/20 16:25:00 EDT, [id number], 157, cm, 09/20/20 14:01:00 EST, Hei... Start Date: 10/21/20 Stop Date: 12/03/20 Status: Ordered Requip 0.5 mg oral tablet 1 tablet = 0.5 mg, By Mouth, 3 times a day, 0 Refills, Maintenance Start Date: 03/17/10 Status: Ordered tylenol tylenol, Refills 0, Maintenance, 07/24/19 13:45:00 EST, Compound Start Date: 07/24/19 Status: Ordered Xalatan 0.005% solution 1 drops, Daily before dinner, 0 Refills, Maintenance, 01/13/19 10:25:06 EDT Start Date: 01/13/19 Status: Ordered ZyrTEC 10 mg oral tablet 1 tablet = 10 mg, By Mouth, Once, Please take 2hrs prior to CT scan on 12/03, # 1 tablet, 0 Refills,Soft Stop, 10/21/20 16:26:00 EDT, [facility]/pharmacy #[id number], Partial fill upon patient request if the prescription is for a schedule II opioid drug., 157, cm,... Start Date: 10/21/20 Status: Ordered Problem List Condition Effective Dates Status Health Status Inform ant Thoracic spine abscess(Confirmed) Active Acute deep venous thrombosis(Confirmed) Active Allergic rhinitis(Confirmed) Active MSSA bacteremia(Confirmed) Active Cough(Confirmed) Active DVT (deep venous thrombosis)(Confirmed) 1 Active Degenerative disc disease, t horacic and lumbar(Confirmed) Active Dyslipidemia(Confirmed) Active Elevated blood pressure read ing without diagnosis of hypertension(Confirmed) Active Glaucoma(Confirmed) Active Herpes zoster(Confirmed) Active Hypertension(Confirmed) Active Impaired fasting glucose(Confirmed) Active Joint pain(Confirmed) Active Nephrolithiasis(Confirmed) Active Right lumbar radiculopathy(Confirmed) Active Need for influenza vaccination(Confirmed) Active Obesity(Confirmed) Active Osteoarthritis(Confirmed) 2 Active (Confirmed) Active Restless leg syndrome(Confirmed) Active Rosacea(Confirmed) Active Sarcoidosis(Confirmed) Active Peripheral sensory neuropathy(Confirmed) Active Ulcerative colitis(Confirmed) Active Vertigo(Confirmed) Active 1RT LEG 2BILATERAL KNEES Social History Social History Type Response Smoking Status Never (less than 100 in lifetime) entered on: 06/27/18 Sex Female
--- OUTSIDE RECORDS SUMMARY | 2024-02-08 01:02 | XMS_ITS | Continuity of Care Document ---
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 Role Phone Rc CORDERO, Mick Clay Primary Care Physician Encounter [facility] [place] Date(s): 06/14/20 - 07/14/20 [facility] Adult [address] [place] [address]- Allergies, Adverse Reactions, Alerts Substance Reaction Severity [...] Status Refusal Reason influenza virus vaccine, inactivated 05/17/20 Piop rded influenza virus vaccine, inactivated 05/01/19 Give [...] 03/30/20 8:48:00 EDT, Route to Pharmacy Electronically, [facility]/pharmacy #[id number], 157, cm, 03/11/20 12:49:00 EDT, Height, 91, kg, 02/28/20 22:14:00 EDT, Dry Weight Start Date: 03/30/20 Stop Date: 03/25/21 Status: Ordered Cosopt ophthalmic solution 1 drops, Eyes, Both, 2 times a day, 0 Refills Start Date: 02/09/09 Status: Ordered diclofenac 1% topical gel 1 application, Topically, 4 times a day, # 100 Gm, 5 Refills, Maintenance, 10/07/19 10:56:00 EDT, Gel, [facility]/pharmacy #[id number], 160, cm, 08/19/19 8:02:00 EST, Height Start Date: 10/07/19 Status: Ordered Eliquis 5 mg oral tablet 1 tablet, By Mouth, 2 times a day, # 180 tablet, 3 Refills, Maintenance, 07/12/20 14:12:00 EST, [id number], 157, cm, 05/07/20 11:34:00 EDT, Height, 91, kg, 02/28/20 22:14:00 EDT, Dry Weight Start Date: 07/12/20 Status: Ordered gabapentin 400 mg oral capsule 400 mg, 1, capsule, By Mouth, 3 times a day, # 270 capsule, Refills 2, Tot. Refills 2, Maintenance,03/30/20 8:48:00 EDT, Route to Pharmacy Electronically, [facility]/pharmacy #[id number], 157, cm, 03/11/20 12:49:00 EDT, Height, 91, kg, 02/28/20 22:14:00 EDT, Dry... Start Date: 03/30/20 Stop Date: 12/25/20 Status: Ordered HYDROmorphone 2 mg oral tablet 1 tablet = 2 mg, By Mouth, Every 8 hours, PRN as needed for pain, # 20 tablet, 0 Refills, Maintenance, 07/14/20 8:36:00 EST, Tablet, [facility]/pharmacy #[id number], Partial fill upon patient request, 157, cm, 07/14/20 7:46:00 EST, Height, 91, kg, 02/28/20 22:14:0... Start Date: 07/14/20 Status: Ordered Lialda 1.2 g oral delayed release tablet 2 tablet = 2.4 Gm, By Mouth, Daily, 0 Refills, Maintenance, 06/27/18 15:39:26 EST Start Date: 06/27/18 Status: Ordered Requip 0.5 mg oral tablet 1 tablet = 0.5 mg, By Mouth, 3 times a day, 0 Refills, Maintenance Start Date: 03/17/10 Status: Ordered tylenol tylenol, Refills 0, Maintenance, 07/24/19 13:45:00 EST, Compound Start Date: 07/24/19 Status: Ordered Xalatan 0.005% solution 1 drops, Daily before dinner, 0 Refills, Maintenance, 01/13/19 10:25:06 EDT Start Date: 01/13/19 Status: Ordered Problem List Condition Effective Dates Status Health Status Inform ant Thoracic spine abscess(Confirmed) Active Acute deep venous thrombosis(Confirmed) Active Allergic rhinitis(Confirmed) Active MSSA bacteremia(Confirmed) Active Cough(Confirmed) Active DVT (deep venous thrombosis)(Confirmed) 1 Active Dyslipidemia(Confirmed) Active Elevated blood pressure read [...]
--- OUTSIDE RECORDS SUMMARY | 2024-02-08 01:02 | XMS_ITS | Continuity of Care Document ---
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 Role Phone Mick Tatum MD Primary Care Physician [phone] Encounter [facility] [place] Date(s): 07/28/21 - 08/27/21 [facility] [address] [place] [id number]- Attending Physician: Julia Haile Admitting Physician: Julia Haile Referring Physician: AdmtrJulia Allergies, Adverse Reactions, Alerts Substance Reaction Severity Status amoxicillin 1 Active Cats Active Dust Active Other Food Allergy 2 chicken, peppers, onions Resolved Other Environmental Allergy 3 Active Contrast Dye Active egg-containing compound 4 Re solved 1Tolerates ceftriaxone 2Pt states she eats chicken every day. Onions make her a little itchy, I will re-enter the onion allergy 3trees, roses 4Pt states she does not know why this is in there. She eats eggs every day and has never had a reaction to a shot Immunizations Given and Recorded Vaccine Date Status Refusal Reason influenza virus vaccine, inactivated 07/02/21 Pipo rded influenza virus vaccine, inactivated 05/17/20 Pipo rded influenza virus vaccine, inactivated 05/01/19 Give n influenza virus vaccine, inactivated 05/15/18 Pipo rded influenza virus vaccine, inactivated 05/14/18 Pipo rded SARS-CoV-2 (COVID-19) mRNA-1273 vaccine 07/02/21 R ecorded SARS-CoV-2 (COVID-19) mRNA BNT-162b2 vac 09/23/20 Given SARS-CoV-2 (COVID-19) mRNA BNT-162b2 vac 09/02/20 Given pneumococcal 23-valent vaccine 1 07/23/11 Recorded pneumococcal 13-valent vaccine 2 07/23/10 Recorded tetanus/diphtheria/pertussis, acel(Tdap) 3 07/23/08 Recorded tetanus-diphtheria toxoids (Td) 4 07/23/96 Recorde d Not Given Vaccine Date Status Refusal Reason tetanus-diphtheria toxoids (Td) 07/01/19 Not Given Parent Or Guardian Refuses 1Location History: DR LOAIZA 2Location History: DR LOAIZA 3Location History: DR LOAIZA 4Location History: DR LOAIZA Medications azaTHIOprine 50 mg oral tablet 50 mg, 1, tablet, By Mouth, Daily, Refills 0, Maintenance, 01/06/21 11:32:00 EDT, Partial fill uponpatient request if the prescription is for a schedule II opioid drug. Start Date: 01/06/21 Status: Ordered budesonide 3 mg oral delayed release capsule 1 capsule = 3 mg, By Mouth, Daily in AM, 0 Refills, Maintenance, 03/10/21 16:22:00 EDT, CR Capsule,Partial fill upon patient request if the prescription is for a schedule II opioid drug. Start Date: 03/10/21 Status: Ordered chem 7 in 3 days chem 7 in 3 days, See Instructions, # 1 each, Refills 0, Tot. Refills 0, Maintenance, Pls send the results to Dr Mick Tatum, 04/14/21 13:03:00 EDT, Supply Start Date: 04/14/21 Status: Ordered clopidogrel 75 mg oral tablet 75 mg, 1, tablet, By Mouth, Daily, # 30 tablet, Refills 11, Tot. Refills 11, Maintenance, 07/09/21 10:04:00 EST, Route to Pharmacy Electronically, [facility]/pharmacy #[id number], Partial fill upon patient request if the prescription is for a schedule II opioid .. Start Date: 07/09/21 Stop Date: 07/04/22 Status: Ordered Cosopt 2.23%-0.68% ophthalmic solution 1 drops, Eyes, Both, 2 times a day, # 10 mL, 0 Refills, Maintenance, 03/23/21 9:41:00 EDT, Solution, [facility]/pharmacy #[id number], Partial fill upon patient request if the prescription is for a schedule II opioid drug., 1 drops Eyes, Both 2 times a day, 159, cm... Start Date: 03/23/21 Status: Ordered [facility] ASPIRIN EC 81 MG TABLET [facility] ASPIRIN EC 81 MG TABLET, 1, tablet, By Mouth, Daily, # 30 tablet, 0 Refills, 158, cm, 04/14/21 11:28:00 EDT, Height, 98.6, kg, 04/11/21 15:59:00 EDT, Dry Weight Start Date: 04/22/21 Status: Ordered diclofenac 1% topical gel 1 application, Topically, 4 times a day, # 100 Gm, 5 Refills, Maintenance, 10/07/19 10:56:00 EDT, Gel, [facility]/pharmacy #[id number], 160, cm, 08/19/19 8:02:00 EST, Height Start Date: 10/07/19 Status: Ordered Eliquis 5 mg oral tablet 1 tablet, By Mouth, 2 times a day, # 180 tablet, 3 Refills, [id number], 158, cm, 06/09/21 10:14:00 EST, Height, 98.6, kg, 04/11/21 15:59:00 EDT, Dry Weight Start Date: 06/17/21 Status: Ordered empagliflozin 10 mg oral tablet 1 tablet = 10 mg, By Mouth, Daily in AM, # 90 tablet, 3 Refills, Maintenance, 06/09/21 12:06:00 EST, Tablet, [facility]/pharmacy #[id number], Partial fill upon patient request if the prescription is for a schedule II opioid drug., 158, cm, 06/09/21 10:14:00 EST, H... Start Date: 06/09/21 Stop Date: 06/04/22 Status: Ordered famotidine 40 mg oral tablet 1 tablet = 40 mg, By Mouth, Daily at bedtime, # 30 tablet, 0 Refills, Maintenance, 07/06/21 14:25:00 EST, Tablet, Partial fill upon patient request if the prescription is for a schedule II opioid drug. Start Date: 07/06/21 Status: Ordered gabapentin 400 mg oral capsule 2, capsule, By Mouth, 3 times a day, # 180 capsule, Refills 5, Tot. Refills 5, Maintenance, 07/31/21 10:21:00 EST, Route to Pharmacy Electronically, [facility]/pharmacy #[id number], 159, cm, 07/25/21 11:20:00 EST, Height, 98, kg, 07/06/21 19:57:00 EST, Dry Weight Start Date: 07/31/21 Status: Ordered isosorbide mononitrate 30 mg oral tablet, extended release 1 tablet, By Mouth, Daily, for 90 days, # 90 tablet, 3 Refills, Physician Stop 04/20/22 16:32:00 EDT, 04/25/21 16:32:00 EDT, [facility]/pharmacy #[id number], 158, cm, 04/25/21 14:49:00 EDT, Height, 98.6, kg, 04/11/21 15:59:00 EDT, Dry Weight Start Date: 04/25/21 Stop Date: 04/20/22 Status: Ordered latanoprost 0.005% ophthalmic solution See Instructions, INSTILL 1 DROP IN BOTH EYES DAILY BEFORE DINNER, # 2.5 mL, 0 Refills, [id number], 18, INSTILL 1 DROP IN BOTH EYES DAILY BEFORE DINNER, 158, cm, 04/14/21 11:28:00 EDT, Height, 98.6, kg, 04/11/21 15:59:00 EDT, Dry Weight Start Date: 04/14/21 Status: Ordered Lipitor 40 mg oral tablet 1 tablet = 40 mg, By Mouth, Daily, # 30 tablet, 5 Refills, Maintenance, 04/28/21 6:50:00 EDT, Tablet, [facility]/pharmacy #[id number], Partial fill upon patient request if the prescription is for a schedule II opioid drug., 158, cm, 04/25/21 14:49:00 EDT, Height,... Start Date: 04/28/21 Status: Ordered MAgnesium level in 3 days MAgnesium level in 3 days, See Instructions, # 1 each, Refills 0, Tot. Refills 0, Maintenance, Pls send the results to Dr Mick Tatum, 04/14/21 13:04:00 EDT, Supply Start Date: 04/14/21 Status: Ordered metoprolol 25 mg oral tablet, extended release 25 mg, 1, tablet, By Mouth, Daily, # 30 tablet, Refills 5, Tot. Refills 5, Maintenance, 12/06/20 13:03:00 EDT, Route to Pharmacy Electronically, [facility]/pharmacy #[id number], Partial fill upon patient request if the prescription is for a schedule II opioid drug... Start Date: 12/06/20 Stop Date: 06/04/21 Status: Ordered nitroglycerin 0.4 mg sublingual tablet 1 tablet = 0.4 mg, Sublingual, Every 5 minutes, PRN as needed for chest pain, not to exceed 3 doses/15 min--if pain persists, seek medical attention, # 100 tablet, 0 Refills, Maintenance, 03/15/21 12:38:00 EDT, Tablet, [facility]/pharmacy #[id number], Partial fill... Start Date: 03/15/21 Status: Ordered rOPINIRole 0.5 mg oral tablet 1 tablet = 0.5 mg, By Mouth, 4 times a day, Maintenance, 03/10/21 18:53:00 EDT, Tablet, Partial fill upon patient request if the prescription is for a schedule II opioid drug. Start Date: 03/10/21 Status: Ordered thiamine 100 mg oral tablet 100 mg, 1, tablet, By Mouth, Daily, for 30 days, # 30 tablet, Refills 5, Tot. Refills 5, Acute 11/10/21 12:51:00 EDT, 05/14/21 12:51:00 EDT, Route to Pharmacy Electronically, [facility]/pharmacy #[id number], Partial fill upon patient request if the prescription is... Start Date: 05/14/21 Stop Date: 11/10/21 Status: Ordered torsemide 20 mg oral tablet 1 tablet = 20 mg, By Mouth, Daily, # 30 tablet, 5 Refills, Maintenance, 05/10/21 4:19:00 EDT, Tablet, [facility]/pharmacy #[id number], Partial fill upon patient request if the prescription is for a schedule II opioid drug., 158, cm, 04/25/21 14:49:00 EDT, Height,... Start Date: 05/10/21 Status: Ordered Problem List Condition Effective Dates [...] Active Nephrolithiasis(Confirmed) Active Right lumbar radiculopathy(Confirmed) Active Depression, major, single ep isode, moderate(Confirmed) Active Need for influenza vaccination(Confirmed) Active Obese class II(Confirmed) Active Obesity(Confirmed) Active Osteoarthritis(Confirmed) 2 Active (Confirmed) Active Restless leg syndrome(Confirmed) Active Rosacea(Confirmed) Active Sarcoidosis(Confirmed) Active Peripheral sensory neuropathy(Confirmed) Active Ulcerative colitis(Confirmed) Active Vertigo(Confirmed) Active 1RT LEG 2BILATERAL KNEES Social History Social History Type Response Smoking Status Never (less than 100 in lifetime) entered on: 06/27/18 Sex
--- OUTSIDE RECORDS SUMMARY | 2024-02-08 01:03 | XMS_ITS | Continuity of Care Document ---
Author Organization [facility] Gopi Jose lt Address [address] [place] [address]- Care Team Providers Care Senior Energy Trader Name Role Phone Mick Tatum MD Primary Care Physician [place] [facility] [place]): [place] 11[place]/23 [facility] Ugo Willley Adult [address] [place] [address]- Attending Physician: Admtr, Julia Admitting Physician: Admtr, Julia Referring Physician: Admtr, Ar8 Allergies, Adverse Reactions, Alerts Substance Reaction Severity [...] tetanus-diphtheria toxoids (Td) 5 07/23/96 Recorde d 1Result Comment: [id number] 2Location History: DR LOAIZA 3Location History: DR LOAIZA 4Location History: DR LOAIZA 5Location History: DR LOAIZA Medications atorvastatin 40 mg oral tablet 1 tablet, By Mouth, Daily at bedtime, # 90 tablet, 1 Refills, Maintenance, 10/30/23 9:30:00 EDT, [id number], 157, cm, 10/26/23 13:58:00 EDT, Height, 94.3, kg, 01/19/22 4:25:00 EDT, Dry Weight Start Date: 10/30/23 Status: Ordered azaTHIOprine 50 mg oral tablet 50 mg, 1, tablet, TAKE 2 TABLETS ( 100MG ) BY MOUTH DAILY. Start Date: 06/22/23 Status: Ordered budesonide 3 mg oral delayed release capsule 0 Refills, Maintenance, 03/21/23 14:39:00 EDT, Partial fill upon patient request if the prescription is for a schedule II opioid drug. Start Date: 03/21/23 Status: Ordered Calmoseptine 0.44%-20.6% topical ointment See Instructions, After gently cleansing and patting dry, apply to area of skin breakdown on right buttocks daily and after soiling, and cover with clean dressing, # 60 Gm, 1 Refills, Maintenance, 06/29/23 16:21:00 EST, [facility]/pharmacy #[id number], Partial safia... Start Date: 06/29/23 Status: Ordered duloxetine 20 mg oral enteric coated capsule 1 capsule, By Mouth, Daily at bedtime, # 90 capsule, 3 Refills, Maintenance, 09/26/23 5:28:00 EST, [id number], 157, cm, 09/18/23 11:23:00 EST, Height, 94.3, kg, 01/19/22 4:25:00 EDT, Dry Weight Start Date: 09/26/23 Status: Ordered Eliquis 5 mg oral tablet 1 tablet, By Mouth, 2 times a day, # 180 tablet, 3 Refills, Maintenance, 06/15/23 1:44:00 EST, [facility] [id number], 157, cm, 05/31/23 6:38:00 EST, Height, 94.3, kg, 01/19/22 4:25:00 EDT, Dry Weight Start Date: 06/15/23 Status: Ordered isosorbide mononitrate 60 mg oral tablet, extended release 1 tablet, By Mouth, 2 times a day, # 180 tablet, 3 Refills, Maintenance, 06/13/23 8:27:00 EST, [id number], 157, cm, 05/31/23 6:38:00 EST, Height, 94.3, kg, 01/19/22 4:25:00 EDT, Dry Weight Start Date: 06/13/23 Status: Ordered Jardiance 10 mg oral tablet 1 tablet, By Mouth, Daily in AM, # 90 tablet, 3 Refills, Maintenance, 06/04/23 8:09:00 EST, [facility] 10[facility], 157, cm, 05/31/23 6:38:00 EST, Height, 94.3, kg, 01/19/22 4:25:00 EDT, Dry Weight Start Date: 06/04/23 Stop Date: 09/02/23 Status: Ordered Metoprolol Succinate ER 25 mg oral tablet, extended release 1 tablet, By Mouth, Daily, # 30 tablet, 0 Refills, Maintenance, 11/12/23 8:09:00 EDT, [id number], 157, cm, 10/26/23 13:58:00 EDT, Height, 94.3, kg, 01/19/22 4:25:00 EDT, Dry Weight Start Date: 11/12/23 Status: Ordered nitroglycerin 0.4 mg sublingual tablet 1 tablet = 0.4 mg, Sublingual, Every 5 minutes, PRN as needed for chest pain, not to exceed 3 doses/15 min--if pain persists, seek medical attention, # 100 tablet, 0 Refills, Maintenance, 12/19/22 9:51:00 EDT, Tablet, [facility]/pharmacy #[id number], Partial fill... Start Date: 12/19/22 Status: Ordered oxyCODONE 5 mg oral tablet 5 mg, 1, tablet, By Mouth, 2 times a day, PRN, # 56 tablet, Refills 0, Tot. Refills 0, Acute 06/28/24 12:36:00 EST, as needed for pain, 06/28/23 12:35:00 EST, Route to Pharmacy Electronically, [facility]/pharmacy #[id number], Partial fill upon patient request if t... Start Date: 06/28/23 Stop Date: 06/28/24 Status: Ordered pantoprazole 40 mg oral delayed release tablet 0 Refills, Maintenance, 03/21/23 14:39:00 EDT Start Date: 03/21/23 Status: Ordered rOPINIRole 0.5 mg oral tablet 1 tablet, By Mouth, 4 times a day, # 360 tablet, 1 Refills, Maintenance, 09/17/23 7:52:00 EST, [facility] [id number], 157, cm, 08/14/23 10:05:00 EST, Height, 94.3, kg, 01/19/22 4:25:00 EDT, Dry Weight Start Date: 09/17/23 Status: Ordered spironolactone 25 mg oral tablet 25 mg, 1, tablet, By Mouth, 2 times a day, # 180 tablet, Refills 3, Tot. Refills 3, Maintenance, 08/27/23 12:45:00 EST, Route to Pharmacy Electronically, [facility]/pharmacy #[id number], Partial fill upon patientrequest if the prescription is for a schedule II op... Start Date: 08/27/23 Stop Date: 08/21/24 Status: Ordered torsemide 20 mg oral tablet 2 tablet, By Mouth, Daily, # 180 tablet, 3 Refills, Maintenance, 08/13/23 9:50:00 EST, [id number], 157, cm, 06/27/23 16:10:00 EST, Height, 94.3, kg, 01/19/22 4:25:00 EDT, Dry Weight Start Date: 08/13/23 Status: Ordered Problem List Condition Confirmation Course [...] of hypertension Confirmed Active Glaucoma Confirmed Active Heart failure with preserved ejection fraction Confirmed Active HFrEF (heart failure with reduced ejection fraction) Confirmed Active Herpes zoster Confirmed Active Hypertension Confirmed Active Impaired fasting glucose Confirmed Active Ischemic cardiomyopathy Confirmed Active Nephrolithiasis Confirmed Active Right lumbar radiculopathy Confirmed Active Depression, major, single episode, moderate Confirmed Active Need for influenza vaccination Confirmed Active Obese class I Confirmed Active Osteoarthritis 3 Confirmed Active Confirmed Active Restless leg syndrome Confirmed Active Rosacea Confirmed Active Sarcoidosis Confirmed Active Peripheral sensory neuropathy Confirmed Active Ulcerative colitis Confirmed Active Vertigo Confirmed Active 1Per chart review meeting GFR criteria 2RT LEG 3BILATERAL KNEES Social History Social History Type Response Smoking Status Never (less than 100 in lifetime) entered on: 06/27/18 Sex EKG study * Event Display: EKG Authored Date: Laboratory * Event Display: Non BH Lab Results Authored Date: * Event Display: Non BH Lab Results Authored Date: Radiology * Event Display: CT Scan Chest, Non- BH Authored Date: * Event Display: X-Ray Ankle/Foot, Non- BH Authored Date: * Event Display: X-Ray Lower Extremity, Non- BH Authored Date: * Event Display: MRI Spine, Non- Authored Date: * Event Display: Ultrasound Lower Extremity, Non- Authored Date: Patient Care team information Care Team Personnel Name: Estrellita Putnam RN Position: [facility] RN Member Role: Primary Care Nurse Name: Marlen Kenny RN Position: [facility] RN Member Role: Primary Care Nurse Name: Toshia Muhammad RN Position: [facility] RN Supjulieth Member Role: Primary Care Nurse Name: Suleman Jones RN Position: [facility] RN Member Role: Primary Care Nurse Name: Kathy Medina RN Position: S RN Member Role: Primary Care Nurse Name: Marguerite Wang RN Position: S RN Member Role: Primary Care Nurse Name: Mick Tatum MD Position: [facility] Physician - Primary Care Member Role: PCP Address: Address: [address] [place] [phone]- [place] Name: Svitlana Clark RN Position: [facility] RN Member Role: Primary Care Nurse Name: Yoana Guevara RN Position: [facility] RN Member Role: Primary Care Nurse Name: Pierre Groves RN Position: [facility] RN Member Role: Primary Care Nurse Name: Carmen Murphy NP Position: [facility] PCO Associate Professional Member Role: Primary Care Nurse Address: Address: [address] [place] [address] [place] [address]- Name: Rylie Ordonez RN Position: [facility] RN Member Role: Primary Care Nurse Name: Marisa Negrete RN Position: [facility] AMB Nurse Member Role: Primary Care Nurse Name: Aditi Brown RN Position: [facility] Onco RN Member Role: Primary Care Nurse Name: Chana Cazares RN Position: [facility] RN Member Role: Primary Care Nurse Name: Toshia Urbina RN Position: [facility] RN Member Role: Primary Care Nurse Name: Isabel Gray Position: [facility] Machine Wood Sander Member Role: Doughnut Glazier Name: Aniyah Sloan RN Position: [facility] SN RN Member Role: Primary Care Nurse Name: Rosemary Ramon RN Position: [facility] OB RN Member Role: Primary Care Nurse Name: Sneha Newton RN Position: [facility] Hospital Fish Bait Picker Member Role: Primary Care Nurse Care Team Related Persons Name: CLAUDIA URBINA Address: home [address] [place], [place] Name: RALPH SÁNCHEZ Address: [address] [place], [place] Name: DONY CARCAMO Address: home [address] [place], [place]
--- OUTSIDE RECORDS SUMMARY | 2024-02-08 01:03 | XMS_ITS | Continuity of Care Document ---
Author Organization [facility] Gopi Jose lt Address [address] [place] [address]- Care Team Providers Care Senior Licensing Manager Name Role Phone Rc CORDERO, Mick Clay Primary Care Physician Encounter [facility] [place] Date(s): 10/30/23 - 11/29/23 [facility] Gopi Adult [address] [place] [address]- Allergies, Adverse Reactions, Alerts Substance Reaction Severity [...] itchy, I will re-enter the onion allergy 4hilton salazar Immunizations Given and Recorded Vaccine Date Status [...] 07/23/08 Recorded tetanus-diphtheria toxoids (Td) 5 07/23/96 Augiemin B[place] Comment: [id number] 2Location History: DR LOAIZA 3Location History: DR LOAIZA 4Location History: DR LOAIZA 5Location History: DR LOAIZA Medications atorvastatin 40 mg oral tablet 1 tablet, By Mouth, Daily at bedtime, # 90 tablet, 1 Refills, Maintenance, 10/30/23 9:30:00 EDT, [id number], 157, cm, 10/26/23 13:58:00 EDT, Height, 94.3, [...] Gm, 1 Refills, Maintenance, 06/29/23 16:21:00 EST, [facility]/pharmacy #[id number], Partial safia... Start Date: 06/29/23 Status: Ordered duloxetine 20 mg oral enteric coated capsule 1 capsule, By Mouth, Daily at bedtime, # 90 capsule, 3 Refills, Maintenance, 09/26/23 5:28:00 EST, [facility] 24456, 157, cm, 09/18/23 11:23:00 EST, Height, 94.3, kg, 01/19/22 4:25:00 EDT, Dry Weight Start Date: 09/26/23 Status: Ordered Eliquis 5 mg oral tablet 1 tablet, By Mouth, 2 times a day, # 180 tablet, 3 Refills, Maintenance, 06/15/23 1:44:00 EST, [facility] [id number], 157, cm, 05/31/23 6:38:00 EST, Height, 94.3, kg, 01/19/22 4:25:00 EDT, Dry Weight Start Date: 06/15/23 Status: Ordered isosorbide mononitrate 60 mg oral tablet, extended release 1 tablet, By Mouth, 2 times a day, # 180 tablet, 3 Refills, Maintenance, 06/13/23 8:27:00 EST, [facility] [id number], 157, cm, 05/31/23 6:38:00 EST, Height, 94.3, kg, 01/19/22 4:25:00 EDT, Dry Weight Start Date: 06/13/23 Status: Ordered Jardiance 10 mg oral tablet 1 tablet, By Mouth, Daily in AM, # 90 tablet, 3 Refills, Maintenance, 06/04/23 8:09:00 EST, [facility] 13652, 157, cm, 05/31/23 6:38:00 EST, Height, 94.3, kg, 01/19/22 4:25:00 EDT, Dry Weight Start Date: 06/04/23 Stop Date: 09/02/23 Status: Ordered Metoprolol Succinate ER 25 mg oral tablet, extended release 1 tablet, By Mouth, Daily, # 30 tablet, 0 Refills, Maintenance, 11/26/23 7:55:00 EDT, [facility] [id number], 157, cm, 11/13/23 16:25:00 EDT, Height, 94.3, kg, 01/19/22 4:25:00 EDT, Dry Weight Start Date: 11/26/23 Status: Ordered nitroglycerin 0.4 mg sublingual tablet 1 tablet = 0.4 mg, Sublingual, Every 5 minutes, PRN as needed for chest pain, not to exceed 3 doses/15 min--if pain persists, seek medical attention, # 100 tablet, 0 Refills, Maintenance, 12/19/22 9:51:00 EDT, Tablet, [facility]/pharmacy #[id number], Partial fill... Start Date: 12/19/22 Status: Ordered oxyCODONE 5 mg oral tablet 5 mg, 1, tablet, By Mouth, 2 times a day, PRN, # 56 tablet, Refills 0, Tot. Refills 0, Acute 06/28/24 12:36:00 EST, as needed for pain, 06/28/23 12:35:00 EST, Route to Pharmacy Electronically, [facility]/pharmacy #[id number], Partial fill upon patient request if t... Start Date: 06/28/23 Stop Date: 06/28/24 Status: Ordered pantoprazole 40 mg oral delayed release tablet 0 Refills, Maintenance, 03/21/23 14:39:00 EDT Start Date: 03/21/23 Status: Ordered rOPINIRole 0.5 mg oral tablet 1 tablet, By Mouth, 4 times a day, # 360 tablet, 1 Refills, Maintenance, 09/17/23 7:52:00 EST, [facility] 04121, 157, cm, 08/14/23 10:05:00 EST, Height, 94.3, kg, 01/19/22 4:25:00 EDT, Dry Weight Start Date: 09/17/23 Status: Ordered spironolactone 25 mg oral tablet 25 mg, 1, tablet, By Mouth, 2 times a day, # 180 tablet, Refills 3, Tot. Refills 3, Maintenance, 08/27/23 12:45:00 EST, Route to Pharmacy Electronically, [facility]/pharmacy #[id number], Partial fill upon patientrequest if the prescription is for a schedule II op... Start Date: 08/27/23 Stop Date: 08/21/24 Status: Ordered torsemide 20 mg oral tablet 2 tablet, By Mouth, Daily, # 180 tablet, 3 Refills, Maintenance, 08/13/23 9:50:00 EST, [facility] [id number], 157, cm, 06/27/23 16:10:00 EST, Height, 94.3, [...] on: 06/27/18 Sex Patient Care team information Care Team Personnel Name: Estrellita Putnam RN Position: [facility] RN Member Role: Primary Care Nurse Name: Marlen Kenny RN Position: [facility] RN Member Role: Primary Care Nurse Name: Toshia Muhammad RN Position: [facility] RN Martha Member Role: Primary Care Nurse Name: Suleman Jones RN Position: [facility] RN Member Role: Primary Care Nurse Name: Kathy Medina RN Position: [facility] RN Member Role: Primary Care Nurse Name: Marguerite Wang RN Position: [facility] RN Member Role: Primary Care Nurse Name: Mick Tatum MD Position: [facility] Physician - Primary Care Member Role: PCP Address: Address: [address] [place] [address]- [place] Name: Svitlana Clark RN Position: [facility] RN Member Role: Primary Care Nurse Name: Yoana Guevara RN Position: [facility] RN Member Role: Primary Care Nurse Name: Pierre Groves RN Position: [facility] RN Member Role: Primary Care Nurse Name: Carmen Murphy NP Position: [facility] PCO Associate Professional Member Role: Primary Care Nurse Address: Address: [address] [place] [address]- [place] Name: Rylie Ordonez RN Position: [facility] RN Member Role: Primary Care Nurse Name: Marisa Negrete RN Position: [facility] AMB Nurse Member Role: Primary Care Nurse Name: Aditi Brown RN Position: [facility] Onco RN Member Role: Primary Care Nurse Name: Chana Cazares RN Position: [facility] RN Member Role: Primary Care Nurse Name: Toshia Urbina RN Position: [facility] RN Member Role: Primary Care Nurse Name: Isabel Gray Position: [facility] [place] Paperback Machine Operator Member Role: Camera Assembler Name: Aniyah Sloan RN Position: [facility] SN RN Member Role: Primary Care Nurse Name: Rosemary Ramon RN Position: [facility] OB RN Member Role: Primary Care Nurse Name: Sneha Newton RN Position: [facility] Professor Of Music Member Role: Primary Care Nurse Care Team Related Persons Name: CLAUDIA URBINA Address: [address] [place] [address] Name: RALPH SÁNCHEZ Address: [address] [place] [address] Name: DONY CARCAMO Address: [address] [place] [address]
--- OUTSIDE RECORDS SUMMARY | 2024-02-08 01:03 | XMS_ITS | Continuity of Care Document ---
Author Organization [facility] Gopi Jose lt Address [address] [place] [address]- Care Team Providers Care Hand Mold Maker Name Role Phone Mick Tatum MD Primary Care Physician En[place] [facility] [place](s): 04/22/21 - 04/29/21 [facility] Adult [address] [place] [address]- Attending Physician: Mick Tatum MD Allergies, Adverse [...] 1Location History: DR LOAIZA 2Location History: DR OLAIZA 3Location History: DR LOAIZA 4Location History: DR LOAIZA Medications aspirin 81 mg oral delayed release tablet 81 mg, 1, tablet, By Mouth, Daily, for 30 days, # 30 tablet, Refills 5, Tot. Refills 5, Hard Stop 10/24/21 13:28:00 EDT, 04/27/21 13:28:00 EDT, Route to Pharmacy Electronically, [facility]/pharmacy #[id number], Partial fill upon patient request if the prescription... Start Date: 04/27/21 Stop Date: 10/24/21 Status: Ordered aspirin 81 mg oral delayed release tablet 81 mg, 1, tablet, By Mouth, Daily, # 30 tablet, Refills 5, Tot. Refills 5, Maintenance, 10/24/21 13:28:00 EDT, Route to Pharmacy Electronically, [facility]/pharmacy #[id number], Partial fill upon patient request if the prescription is for a schedule II opioid drug... Start Date: 10/24/21 Stop Date: 04/22/22 Status: Ordered atorvastatin 40 mg oral tablet 1 tablet, By Mouth, Daily at bedtime, for 90 days, # 90 tablet, 3 Refills, Physician Stop 04/20/22 16:32:00 EDT, 04/25/21 16:32:00 EDT, [facility]/pharmacy #[id number], 158, cm, 04/25/21 14:49:00 EDT, Height, 98.6, kg, 04/11/21 15:59:00 EDT, Dry Weight Start Date: 04/25/21 Stop Date: 04/20/22 Status: Ordered azaTHIOprine 50 mg oral tablet [...] EDT, Supply Start Date: 04/14/21 Status: Ordered Cosopt 2.23%-0.68% ophthalmic solution 1 drops, Eyes, Both, 2 times a day, # 10 mL, 0 Refills, Maintenance, 03/23/21 9:41:00 EDT, Solution, [facility]/pharmacy #[id number], Partial fill upon patient request if the prescription is for a schedule II opioid drug., 1 drops Eyes, Both 2 times a day, 159, cm... Start Date: 03/23/21 Status: Ordered [facility] ASPIRIN EC 81 MG TABLET [facility] ASPIRIN EC 81 MG TABLET, 1, tablet, By Mouth, Daily, # 30 tablet, 0 Refills, 158, cm, 04/14/21 11:28:00 EDT, Height, 98.6, kg, 04/11/21 15:59:00 EDT, Dry Weight Start Date: 04/22/21 Status: Ordered diclofenac 1% topical gel 1 application, Topically, 4 times a day, # 100 Gm, 5 Refills, Maintenance, 10/07/19 10:56:00 EDT, Gel, [facility]/pharmacy #[id number], 160, cm, 08/19/19 8:02:00 EST, Height Start Date: 10/07/19 Status: Ordered Eliquis 5 mg oral tablet 1 tablet, By Mouth, 2 times a day, # 180 tablet, 3 Refills, Maintenance, 07/12/20 14:12:00 EST, [id number], 157, cm, 05/07/20 11:34:00 EDT, Height, 91, kg, 02/28/20 22:14:00 EDT, Dry Weight Start Date: 07/12/20 Status: Ordered furosemide 20 mg oral tablet 1, tablet, By Mouth, Daily, # 30 tablet, Refills 0, Route to Pharmacy Electronically, [facility] [id number], 158, cm, 04/22/21 14:39:00 EDT, Height, 98.6, kg, 04/11/21 15:59:00 EDT, Dry Weight Start Date: 04/25/21 Status: Ordered gabapentin 400 mg oral capsule See Instructions, 2 capsule By Mouth 3 times a day, # 180 capsule, Refills 0, Tot. Refills 0, Maintenance, 03/16/21 10:36:00 EDT, Instructions Replace Required Details, [id number] Partial fill upon patient re... Start Date: 03/16/21 Status: Ordered isosorbide mononitrate 30 mg oral tablet, extended release 1 tablet, By Mouth, Daily, for 90 days, # 90 tablet, 3 Refills, Physician Stop 04/20/22 16:32:00 EDT, 04/25/21 16:32:00 EDT, [facility]/pharmacy #[id number], 158, cm, 04/25/21 14:49:00 EDT, Height, 98.6, kg, 04/11/21 15:59:00 EDT, Dry Weight Start Date: 04/25/21 Stop Date: 04/20/22 Status: Ordered latanoprost 0.005% ophthalmic solution See Instructions, INSTILL 1 DROP IN BOTH EYES DAILY BEFORE DINNER, # 2.5 mL, 0 Refills, [facility] [id number], 18, INSTILL 1 DROP IN BOTH EYES DAILY BEFORE DINNER, 158, cm, 04/14/21 11:28:00 EDT, Height, 98.6, kg, 04/11/21 15:59:00 EDT, Dry Weight Start Date: 04/14/21 Status: Ordered Lipitor 40 mg oral tablet 1 tablet = 40 mg, By Mouth, Daily, # 30 tablet, 5 Refills, Maintenance, 04/28/21 6:50:00 EDT, Tablet, [facility]/pharmacy #[id number], Partial fill upon patient request [...] 12/06/20 13:03:00 EDT, Route to Pharmacy Electronically, [facility]/pharmacy #[id number], Partial fill upon patient request [...] Refills, Maintenance, 03/15/21 12:38:00 EDT, Tablet, [facility]/pharmacy #[id number], Partial fill... Start Date: 03/15/21 Status: [...] for 30 days, # 30 tablet, Refills 0, Tot. Refills 0, Acute 05/14/21 12:51:00 EDT, 04/14/21 12:51:00 EDT, Route to Pharmacy Electronically, [facility]/pharmacy #[id number], Partial fill upon patient request if the prescription is... Start Date: 04/14/21 Stop Date: 05/14/21 Status: Ordered torsemide 20 mg oral tablet 1 tablet = 20 mg, By Mouth, Daily, # 30 tablet, 0 Refills, Maintenance, 04/14/21 12:52:00 EDT, Tablet, [facility]/pharmacy #[id number], Partial fill upon patient request if the prescription is for a schedule II opioid drug., 158, cm, 04/14/21 11:28:00 EDT, Height,... Start Date: 04/14/21 Status: Ordered Vitamin D2 50,000 intl units (1.25 mg) oral capsule 1 capsule = 50,000 International_Units, By Mouth, Every , # 8 capsule, 0 Refills, Maintenance, 04/14/21 12:50:00 EDT, [id number], Partial fill upon patient request if the prescriptionis for a schedule II opioid drug., 158, cm, ... Start Date: 04/14/21 Status: Ordered Problem List Condition Effective Dates [...] Active Vertigo(Confirmed) Active 1RT LEG 2BILATERAL KNEES Vital Signs Most recent to oldest [Reference Range]: 1 Height 158 cm (04/22/21 2:39 PM) Oxygen Saturation [94-100 %] 92 % *L* (04/22/21 2:39 PM) Pulse Rate [55-90 bpm] 87 bpm (04/22/21 2:39 PM) Blood Pressure [90-138/55-84 mm Hg] 118/ 70mm Hg (04/22/21 2:39 PM) Temperature [96.8-100.4 DegF] 98.1 DegF (04/22/21 2:39 PM) Blood pressure sites Arm, left (04/22/21 2:39 PM) Temperature Route Oral (04/22/21 2:39 PM) Social History Social History Type Response Smoking Status Never (less than 100 in lifetime) entered on: 06/27/18 Sex
--- OUTSIDE RECORDS SUMMARY | 2024-02-08 01:03 | XMS_ITS | Continuity of Care Document ---
Author Organization [facility] Gopi Jose lt Address [address] [place] [address]- Care Team Providers Care Hand Coper Name Role Phone Mick Tatum MD Primary Care Physician [place] [facility] [place]22 [facility] [address] [place] [address]- Allergies, Adverse Reactions, Alerts Substance Reaction Severity Status amoxicillin 1 Active Benadryl Shaking Active Other Environmental Allergy 2 Active Other Food Allergy 3 chicken, peppers, onions Resolved Cats Active Contrast Dye Active Dust Active egg-containing compound 4 Re solved 1Tolerates ceftriaxone 2trees, roses 3Pt states she eats chicken every day. Onions make her a little itchy, I will re-enter the onion allergy 4Pt states she does not know why [...] Given Parent Or Guardian Refuses 1Result Comment: [id number] 2Location History: DR LOAIZA 3Location History: DR LOAIZA 4Location History: DR LOAIZA 5Location History: DR LOAIZA Medications atorvastatin 40 mg oral tablet 1 tablet, By Mouth, Daily at bedtime, # 90 tablet, 3 Refills, Maintenance, 05/13/22 7:24:00 EDT, [id number], 157, cm, 05/12/22 13:47:00 EDT, Height, 94.3, kg, 01/19/22 4:25:00 EDT, Dry Weight Start Date: 05/13/22 Status: Ordered budesonide 3 mg oral delayed release capsule 1 capsule = 3 mg, By Mouth, Daily in AM, # 90 capsule, 2 Refills, Acute 01/18/23 6:58:00 EDT, 01/18/22 6:58:00 EDT, CR Capsule, [facility]/pharmacy #[id number], Partial fill upon patient request if the prescription is for a schedule II opioid drug., 159, cm, 12/21... Start Date: 01/18/22 Stop Date: 01/18/23 Status: Ordered Eliquis 5 mg oral tablet 1 tablet, By Mouth, 2 times a day, # 180 tablet, 3 Refills, Maintenance, 05/27/22 16:57:00 EDT, [id number], 157, cm, 05/12/22 13:47:00 EDT, Height, 94.3, kg, 01/19/22 4:25:00 EDT, Dry Weight Start Date: 05/27/22 Status: Ordered isosorbide mononitrate 60 mg oral tablet, extended release 60 mg, 1, tablet, By Mouth, 2 times a day, # 180 tablet, Refills 3, Tot. Refills 3, Maintenance, 07/10/22 16:07:00 EST, Route to Pharmacy Electronically, [facility]/pharmacy #[id number], Partial fill upon patientrequest if the prescription is for a schedule II op... Start Date: 07/10/22 Status: Ordered Metoprolol Succinate ER 25 mg oral tablet, extended release 1 tablet, By Mouth, Daily, # 90 tablet, 3 Refills, 09/30/22 20:06:00 EST, [facility]/pharmacy #[id number], 157, cm, 09/15/22 11:19:00 EST, Height, 94.3, kg, 01/19/22 4:25:00 EDT, Dry Weight Start Date: 09/30/22 Status: Ordered mirtazapine 7.5 mg oral tablet 1 tablet = 7.5 mg, By Mouth, Daily at bedtime, # 30 tablet, 2 Refills, Maintenance, 12/28/22 14:48:00 EDT, [facility]/pharmacy #[id number], Partial fill upon patient request if the prescription is for a schedule II opioid drug., 157, cm, 12/28/22 14:14:00 EDT, Hei... Start Date: 12/28/22 Status: Ordered nitroglycerin 0.4 mg sublingual tablet 1 tablet = 0.4 mg, Sublingual, Every 5 minutes, PRN as needed for chest pain, not to exceed 3 doses/15 min--if pain persists, seek medical attention, # 100 tablet, 0 Refills, Maintenance, 12/19/22 9:51:00 EDT, Tablet, [facility]/pharmacy #[id number], Partial fill... Start Date: 12/19/22 Status: Ordered rOPINIRole 0.5 mg oral tablet 1 tablet, By Mouth, 4 times a day, # 360 tablet, 1 Refills, Maintenance, 07/25/22 9:33:00 EST, [id number], 157, cm, 07/10/22 15:50:00 EST, Height, 94.3, kg, 01/19/22 4:25:00 EDT, Dry Weight Start Date: 07/25/22 Status: Ordered spironolactone 25 mg oral tablet 25 mg, 1, tablet, By Mouth, Daily, # 90 tablet, Refills 3, Tot. Refills 3, Maintenance, 10/09/22 15:42:00 EDT, Route to Pharmacy Electronically, [facility]/pharmacy #[id number], Partial fill upon patient request if the prescription is for a schedule II opioid drug... Start Date: 10/09/22 Stop Date: 10/04/23 Status: Ordered torsemide 20 mg oral tablet 2 tablet = 40 mg, By Mouth, Daily, for 90 days, # 180 tablet, 3 Refills, Physician Stop 07/26/23 8:14:00 EST, 07/31/22 8:14:00 EST, [id number], 157, cm, 07/27/22 15:56:00 EST, Height, 94.3, kg, 01/19/22 4:25:00 EDT, Dry Weight Start Date: 07/31/22 Stop Date: 07/26/23 Status: Ordered torsemide 20 mg oral tablet 2 tablet = 40 mg, By Mouth, Daily, for 90 days, # 180 tablet, 3 Refills, Physician Stop 05/15/23 16:05:00 EDT, 05/20/22 16:05:00 EDT, [id number], 157, cm, 05/12/22 13:47:00 EDT, Height, 94.3,kg, 01/19/22 4:25:00 EDT, Dry Weight Start Date: 05/20/22 Stop Date: 05/15/23 Status: Ordered Problem List Condition Confirmation Course [...] of hypertension Confirmed Active Glaucoma Confirmed Active HFrEF (heart failure with reduced [...] Care team information Care Team Personnel Name: Lisa Carlson RN Position: [facility] RN Member Role: Primary Care Nurse Name: Jersey VERNONEstrellita Position: [facility] RN Member Role: Primary Care Nurse Name: Marlen Kenny RN Position: [facility] RN Member Role: Primary Care Nurse Name: Toshia Muhammad RN Position: [facility] RN Martha Member Role: Primary Care Nurse Name: Suleman Jones RN Position: [facility] RN Member Role: Primary Care Nurse Name: Kathy Medina RN Position: [facility] RN Member Role: Primary Care Nurse Name: Mick Tatum MD Position: [facility] Physician - Primary Care Member Role: PCP Address: Address: [address] [place] [id number] Name: Svitlana Clark RN Position: [facility] RN Member Role: Primary Care Nurse Name: Yoana Guevara RN Position: [facility] RN Member Role: Primary Care Nurse Name: Pierre Groves RN Position: [facility] RN Member Role: Primary Care Nurse Name: Carmen Murphy RN Position: [facility] RN Member Role: Primary Care Nurse Name: Rylie Ordonez RN Position: [facility] AMB Nurse Member Role: Primary Care Nurse Name: Aditi Brown RN Position: [facility] RN Member Role: Primary Care Nurse Name: Chana Cazares RN Position: [facility] RN Member Role: Primary Care Nurse Name: Toshia Urbina RN Position: [facility] RN Member Role: Primary Care Nurse Name: Aniyah Sloan RN Position: [facility] SN RN Member Role: Primary Care Nurse Name: Rosemary Ramon RN Position: [facility] OB RN Member Role: Primary Care Nurse Name: Sneha Newton RN Position: [facility] Hospital Tufting Creeler Member Role: Primary Care Nurse Care Team Related Persons Name: CLAUDIA URBINA Address: [address], [place] Name: RALPH SÁNCHEZ Address: [address], [place] Name: DONY CARCAMO Address: [address] [place], [place]
--- OUTSIDE RECORDS SUMMARY | 2024-02-08 01:03 | XMS_ITS | Continuity of Care Document ---
Author Organization [facility] Jose lt Address [address] [place] [id number]- Care Team Providers Care Storeroom Clerk Name Role Phone Ignacio Parish MD Primary Care Physician [place] [facility] [place]07[place] 10[place]14/19 [facility] Adult [address] [place] [address]- [facility] Attending Physician: Ignacio Parish MD Allergies, Adverse Reactions, Alerts Substance Reaction Severity Status amoxicillin Active Cats Active Contrast Dye Active Dust Active Seafood Active Tomatoes Active egg-containing compound Acti ve Other Food Allergy chicken, peppers, onions Active Other Environmental Allergy 1 Active 1trees, roses Immunizations Given and Recorded Vaccine Date Status Refusal Reason influenza virus vaccine, inactivated 05/01/19 Give n [...] DR LOAIZA 4Location History: DR LOAIZA Medications budesonide 3 mg oral delayed release capsule TAKE 1 CAPSULE BY MOUTH EVERY DAY Start Date: 05/01/19 Status: Ordered Cosopt ophthalmic solution 1 drops, Eyes, Both, 2 times a day, 0 Refills Start Date: 02/09/09 Status: Ordered diclofenac 1% topical gel 1 application, Topically, 4 times a day, # 100 Gm, 5 Refills, Maintenance, 10/07/19 10:56:00 EDT, Gel, [facility]/pharmacy #[id number], 160, cm, 08/19/19 8:02:00 EST, Height Start Date: 10/07/19 Status: Ordered Eliquis 5 mg oral tablet 1 tablet, By Mouth, 2 times a day, # 180 tablet, Refills 3 Tot. Refills 3, [facility]/pharmacy #[id number] Start Date: 06/17/19 Status: Ordered ferrous sulfate 325 mg oral enteric coated tablet 325 mg, 1, tablet, By Mouth, Daily, # 30 tablet, Refills 0, Maintenance, 01/13/19 10:24:03 EDT Start Date: 01/13/19 Status: Ordered Flonase 50 mcg/inh nasal spray 2 sprays, Nares, Both, Daily, # 16 Gm, 0 Refills, Maintenance, 10/07/19 14:19:00 EDT, [facility]/pharmacy #[id number], 2 sprays Nares, Both Daily, 160, cm, 08/19/19 8:02:00 EST, Height Start Date: 10/07/19 Status: Ordered gabapentin 300 mg oral capsule 300 mg, 1, capsule, By Mouth, 3 times a day, # 90 capsule, Refills 2, Tot. Refills 2, Maintenance, 03/20/19 12:07:35 EDT, Route to Pharmacy Electronically, [id number], [facility]/pharmacy #[id number] Start Date: 03/20/19 Status: Ordered Lialda 1.2 g oral delayed release tablet 2 tablet = 2.4 Gm, By Mouth, Daily, 0 Refills, Maintenance, 06/27/18 15:39:26 EST Start Date: 06/27/18 Status: Ordered Lumigan 0.03% ophthalmic solution 1 drops, Eyes, Both, Daily before dinner, 0 Refills Start Date: 02/09/09 Status: Ordered omeprazole 20 mg oral enteric coated capsule 1 capsule = 20 mg, By Mouth, Daily, # 30 capsule, 0 Refills, Maintenance, 10/07/19 14:22:00 EDT, [facility]/pharmacy #[id number], 160, cm, 08/19/19 8:02:00 EST, Height Start Date: 10/07/19 Status: Ordered predniSONE 20 mg oral tablet 2 tablet = 40 mg, By Mouth, Daily, # 14 tablet, 0 Refills, Maintenance, 10/07/19 14:23:00 EDT, [facility]/pharmacy #[id number], 160, cm, 08/19/19 8:02:00 EST, Height Start Date: 10/07/19 Status: Ordered Requip 0.5 mg oral tablet 1 tablet = 0.5 mg, By Mouth, 3 times a day, 0 Refills, Maintenance Start Date: 03/17/10 Status: Ordered Tessalon Perles 100 mg oral capsule 1 capsule = 100 mg, By Mouth, 3 times a day, # 21 capsule, 0 Refills, Maintenance, 07/01/19 11:16:41 EST, 160, cm, 07/01/19 10:58:58 EST, Height Start Date: 07/01/19 Status: Ordered traMADol 50 mg oral tablet 1 tablet = 50 mg, By Mouth, Every 12 hours, # 60 tablet, 0 Refills, Maintenance, 06/05/19 10:25:00 EST Start Date: 06/05/19 Status: Ordered tylenol tylenol, Refills 0, Maintenance, 07/24/19 13:45:00 EST, Compound Start Date: 07/24/19 Status: Ordered Xalatan 0.005% solution 1 drops, Daily before dinner, 0 Refills, Maintenance, 01/13/19 10:25:06 EDT Start Date: 01/13/19 Status: Ordered Problem List Condition Effective Dates Status Health Status Inform ant Acute deep venous thrombosis(Confirmed) Active Allergic rhinitis(Confirmed) Active DVT (deep venous thrombosis)(Confirmed) 1 Active Dyslipidemia(Confirmed) Active Elevated blood pressure read ing without diagnosis of hypertension(Confirmed) Active Glaucoma(Confirmed) Active Herpes zoster(Confirmed) Active Impaired fasting glucose(Confirmed) Active Joint pain(Confirmed) Active Nephrolithiasis(Confirmed) Active Right lumbar radiculopathy(Confirmed) Active Obesity(Confirmed) Active Osteoarthritis(Confirmed) 2 Active (Confirmed) Active Restless leg syndrome(Confirmed) Active Rosacea(Confirmed) Active Sarcoidosis(Confirmed) Active Peripheral sensory neuropathy(Confirmed) Active Ulcerative colitis(Confirmed) Active Vertigo(Confirmed) Active 1RT LEG 2BILATERAL KNEES Social History Social History Type Response Smoking Status Never (less than 100 in lifetime) entered on: 06/27/18 Sex
--- OUTSIDE RECORDS SUMMARY | 2024-02-08 01:03 | XMS_ITS | Continuity of Care Document ---
Author Organization [facility] Address [address] [place] [address]- Care Team Providers Care Product Specialist Name Role Phone Марина CORDERO, Ignacio New Primary Care Physician [phone] [place] [facility] [place]20 [facility] [address] [place] [id number]- [facility] Allergies, Adverse Reactions, Alerts Substance Reaction Severity Status amoxicillin 1 Active Cats Active Contrast Dye Active Dust Active Other Food Allergy 2 chicken, peppers, onions Resolved Other Environmental Allergy 3 Active egg-containing compound 4 Re solved 1Tolerates [...] 03/30/20 8:48:00 EDT, Route to Pharmacy Electronically, [facility]/pharmacy #[id number], 157, cm, 03/11/20 12:49:00 EDT, Height, 91, kg, 02/28/20 22:14:00 EDT, Dry Weight Start Date: 03/30/20 Stop Date: 03/25/21 Status: Ordered Cosopt ophthalmic solution 1 drops, Eyes, Both, 2 times a day, 0 Refills Start Date: 02/09/09 Status: Ordered diclofenac 1% topical gel 1 application, Topically, 4 times a day, # 100 Gm, 5 Refills, Maintenance, 10/07/19 10:56:00 EDT, Gel, [facility]/pharmacy #[id number], 160, cm, 08/19/19 8:02:00 EST, Height Start Date: 10/07/19 Status: Ordered Dilaudid 2 mg oral tablet 1 tablet = 2 mg, By Mouth, Every 6 hours, 0 Refills, Maintenance, 03/10/20 10:49:00 EDT, Tablet, Partial fill upon patient request Start Date: 03/10/20 Status: Ordered docusate sodium 100 mg oral capsule 100 mg, 1, capsule, By Mouth, 2 times a day, # 60 capsule, Refills 0, Tot. Refills 0, Maintenance, 03/10/20 10:49:00 EDT, [id number], [facility], cm, 03/10/20 8:47:00 EDT, Height, 91, kg, 02/28/20 22:14:00 EDT, Dry W... Start Date: 03/10/20 Status: Ordered Eliquis 5 mg oral tablet 1 tablet, By Mouth, 2 times a day, # 180 tablet, Refills 3 Tot. Refills 3, [facility]/pharmacy #[id number] Start Date: 06/17/19 Status: Ordered gabapentin 400 mg oral capsule 400 mg, 1, capsule, By Mouth, 3 times a day, # 21 capsule, Refills 0, Tot. Refills 0, Maintenance, 03/10/20 10:48:00 EDT, Route to Pharmacy Electronically, [facility]/pharmacy #[id number], 157, cm, 03/10/20 8:47:00 EDT, Height, 91, kg, 02/28/20 22:14:00 EDT, Dry W... Start Date: 03/10/20 Stop Date: 03/17/20 Status: Ordered gabapentin 400 mg oral capsule 400 mg, 1, capsule, By Mouth, 3 times a day, # 270 capsule, Refills 2, Tot. Refills 2, Maintenance,03/30/20 8:48:00 EDT, [facility]ically, [id number], [facility], cm, 03/11/20 12:49:00 EDT, Height, 91, kg, 02/28/20 22:14:00 EDT, Dry... Start Date: 03/30/20 Stop Date: 12/25/20 Status: Ordered HYDROmorphone 2 mg oral tablet 1 tablet = 2 mg, By Mouth, Every 6 hours, PRN as needed for pain, # 28 tablet, 0 Refills, Maintenance, 03/11/20 15:06:00 EDT, Tablet, [id number] fill upon patient request, 157, cm, 03/11/20 12:49:00 EDT, Height, 91, kg, 02/28/20 22:14... Start Date: 03/11/20 Status: Ordered Lialda 1.2 g oral delayed release tablet 2 tablet = 2.4 Gm, By Mouth, Daily, 0 Refills, Maintenance, 06/27/18 15:39:26 EST Start Date: 06/27/18 Status: Ordered Requip 0.5 mg oral tablet 1 tablet = 0.5 mg, By Mouth, 3 times a day, 0 Refills, Maintenance Start Date: 03/17/10 Status: Ordered tiZANidine 4 mg oral tablet 4 mg, 1, tablet, By Mouth, 3 times a day, PRN, # 21 tablet, Refills 0, Tot. Refills 0, Maintenance,Spasm, 03/10/20 10:51:00 EDT, [facility]ically, [id number], [facility], cm, 03/10/20 8:47:00 EDT, Height, 91, kg, 02/28/20 22:14:00 ED... Start Date: 03/10/20 Stop Date: 03/17/20 Status: Ordered tylenol tylenol, Refills 0, Maintenance, 07/24/19 13:45:00 EST, Compound Start Date: 07/24/19 Status: Ordered Xalatan 0.005% solution 1 drops, Daily before dinner, 0 Refills, Maintenance, 01/13/19 10:25:06 EDT Start Date: 01/13/19 Status: Ordered Problem List Condition Effective Dates Status Health Status Inform ant Thoracic spine abscess(Confirmed) Active Acute deep venous thrombosis(Confirmed) Active Allergic rhinitis(Confirmed) Active Cough(Confirmed) Active DVT (deep venous thrombosis)(Confirmed) [...]
--- OUTSIDE RECORDS SUMMARY | 2024-02-08 01:03 | XMS_ITS | Continuity of Care Document ---
Author Organization [facility] Address [address] [place] [id number]- Care Team Providers Care Security Advisor Name Role Phone Mick Tatum MD Primary Care Physician [phone] [place] [facility] [place]): 09/18/22 - 10/18/22 [facility] [address] [place] [id number]- [place] Allergies, Adverse Reactions, Alerts Substance Reaction Severity Status amoxicillin 1 Active Benadryl Shaking Active Cats Active Other Food Allergy 2 chicken, peppers, onions Resolved Other Environmental Allergy 3 Active Contrast Dye Active Dust Active egg-containing [...] Given Parent Or Guardian Refuses 1Result Comment: [id number] 2Location History: DR LOAIZA 3Location History: DR LOAIZA 4Location History: DR LOAIZA 5Location History: DR LOAIZA Medications atorvastatin 40 mg oral tablet 1 tablet, By Mouth, Daily at bedtime, # 90 tablet, 3 Refills, Maintenance, 05/13/22 7:24:00 EDT, [id number], 157, cm, 05/12/22 13:47:00 EDT, Height, 94.3, kg, 01/19/22 4:25:00 EDT, Dry Weight Start Date: 05/13/22 Status: Ordered azaTHIOprine 50 mg oral tablet 100 mg, 2, tablet, By Mouth, Daily, Refills 0, Maintenance, 01/06/21 11:32:00 EDT, Partial fill upon patient request if the prescription is for a schedule II opioid drug. Start Date: 01/06/21 Status: Ordered budesonide 3 mg oral delayed release capsule 1 capsule = 3 mg, By Mouth, Daily in AM, # 90 capsule, 2 Refills, Acute 01/18/23 6:58:00 EDT, 01/18/22 6:58:00 EDT, CR Capsule, [id number], Partial fill upon patient request if the prescription is for a schedule II opioid drug., 159, cm, 12/21... Start Date: 01/18/22 Stop Date: 01/18/23 Status: Ordered Cosopt 2.23%-0.68% ophthalmic solution 1 drops, Eyes, Both, 2 times a day, # 10 mL, 0 Refills, Maintenance, 03/23/21 9:41:00 EDT, Solution, [id number], Partial fill upon patient request if the prescription is for a schedule II opioid drug., 1 drops Eyes, Both 2 times a day, 159, cm... Start Date: 03/23/21 Status: Ordered diclofenac 1% topical gel 1 application, Topically, 4 times a day, # 100 Gm, 5 Refills, Maintenance, 05/13/22 9:34:00 EDT, Gel, [id number], 157, cm, 05/12/22 13:47:00 EDT, Height, 94.3, kg, 01/19/22 4:25:00 EDT, Dry Weight Start Date: 05/13/22 Status: Ordered Eliquis 5 mg oral tablet 1 tablet, By Mouth, 2 times a day, # 180 tablet, 3 Refills, Maintenance, 05/27/22 16:57:00 EDT, [id number], 157, cm, 05/12/22 13:47:00 EDT, Height, 94.3, kg, 01/19/22 4:25:00 EDT, Dry Weight Start Date: 05/27/22 Status: Ordered empagliflozin 10 mg oral tablet 1 tablet = 10 mg, By Mouth, Daily in AM, # 90 tablet, 3 Refills, Maintenance, 06/09/22 12:36:00 EST, Tablet, [facility]/pharmacy #[id number], Partial fill upon patient request if the prescription is for a schedule II opioid drug., 157, cm, 05/12/22 13:47:00 EDT, H... Start Date: 06/09/22 Stop Date: 06/04/23 Status: Ordered gabapentin 400 mg oral capsule 2, capsule, By Mouth, 3 times a day, # 180 capsule, Refills 5, Tot. Refills 5, Maintenance, 08/28/22 15:05:00 EST, Route to Pharmacy Electronically, [facility]/pharmacy #[id number], 157, cm, 07/27/22 15:56:00 EST, Height, 94.3, kg, 01/19/22 4:25:00 EDT, Dry Weight Start Date: 08/28/22 Status: Ordered HYDROmorphone 2 mg oral tablet 1 tablet = 2 mg, By Mouth, Every 6 hours, PRN Pain , Severe, # 20 tablet, 0 Refills, Acute 11/13/2311:15:00 EDT, 10/12/22 12:15:00 EDT, [facility]/pharmacy #[id number], Partial fill upon patient request if the prescription is for a schedule II opioid drug., 157,... Start Date: 10/12/22 Stop Date: 11/12/22 Status: Ordered isosorbide mononitrate 60 mg oral tablet, extended release 60 mg, 1, tablet, By Mouth, 2 times a day, # 180 tablet, Refills 3, Tot. Refills 3, Maintenance, 07/10/22 16:07:00 EST, Route to Pharmacy Electronically, [facility]/pharmacy #[id number], Partial fill upon patientrequest if the prescription is for a schedule II op... Start Date: 07/10/22 Status: Ordered latanoprost 0.005% ophthalmic solution See Instructions, INSTILL 1 DROP IN BOTH EYES DAILY BEFORE DINNER, # 2.5 mL, 0 Refills, [id number], 18, INSTILL 1 DROP IN BOTH EYES DAILY BEFORE DINNER, 158, cm, 04/14/21 11:28:00 EDT, Height, 98.6, kg, 04/11/21 15:59:00 EDT, Dry Weight Start Date: 04/14/21 Status: Ordered Metoprolol Succinate ER 25 mg oral tablet, extended release 1 tablet, By Mouth, Daily, # 90 tablet, 3 Refills, 09/30/22 20:06:00 EST, [facility]/pharmacy #[id number], 157, cm, 09/15/22 11:19:00 EST, Height, 94.3, kg, 01/19/22 4:25:00 EDT, Dry Weight Start Date: 09/30/22 Status: Ordered nitroglycerin 0.4 mg sublingual tablet 1 tablet = 0.4 mg, Sublingual, Every 5 minutes, PRN as needed for chest pain, not to exceed 3 doses/15 min--if pain persists, seek medical attention, # 100 tablet, 0 Refills, Maintenance, 03/15/21 12:38:00 EDT, Tablet, [facility]/pharmacy #[id number], Partial fill... Start Date: 03/15/21 Status: Ordered rOPINIRole 0.5 mg oral tablet 1 tablet, By Mouth, 4 times a day, # 360 tablet, 1 Refills, Maintenance, 07/25/22 9:33:00 EST, [id number], 157, cm, 07/10/22 15:50:00 EST, Height, 94.3, kg, 01/19/22 4:25:00 EDT, Dry Weight Start Date: 07/25/22 Status: Ordered spironolactone 25 mg oral tablet 25 mg, 1, tablet, By Mouth, Daily, # 90 tablet, Refills 3, Tot. Refills 3, Maintenance, 10/09/22 15:42:00 EDT, Route to Pharmacy Electronically, [facility]/pharmacy #[id number], Partial fill upon patient [...] Stop 05/15/23 16:05:00 EDT, 05/20/22 16:05:00 EDT, [facility]/pharmacy #[id number], 157, cm, 05/12/22 13:47:00 EDT, Height, 94.3,kg, 01/19/22 4:25:00 EDT, Dry Weight Start Date: 05/20/22 Stop Date: 05/15/23 Status: Ordered Vitamin B1 100 mg oral tablet 100 mg, 1, tablet, By Mouth, Daily, # 90 tablet, Refills 3, Tot. Refills 3, Acute 05/20/23 16:10:00EDT, 05/20/22 16:10:00 EDT, Route to Pharmacy Electronically, [facility]/pharmacy #[id number], Partial fill uponpatient request if the prescription is for a schedu... Start Date: 05/20/22 Stop Date: 05/20/23 Status: Ordered Problem List Condition Confirmation Course [...] Team Personnel Name: Lisa Carlson RN Position: [facility] RN Member Role: Primary Care Nurse Name: Estrellita Putnam RN Position: [facility] RN Member Role: Primary Care Nurse Name: Marlen Kenny RN Position: [facility] RN Member Role: Primary Care Nurse Name: Toshia Muhammad RN Position: [facility] RN Martha Member Role: Primary Care Nurse Name: Suleman Jones RN Position: [facility] RN Member Role: Primary Care Nurse Name: Kathy Medina RN Position: [facility] RN Member Role: Primary Care Nurse Name: Marguerite Wang RN Position: [facility] RN Member Role: Primary Care Nurse Name: Mick Tatum MD Position: [facility] Primary Care Physician Member Role: PCP Address: Address: [address] [place] [id number] Name: Svitlana Clark RN Position: [facility] RN Member Role: Primary Care Nurse Name: Yoana Guevara RN Position: [facility] RN Member Role: Primary Care Nurse Name: Pierre Groves RN Position: [facility] RN Member Role: Primary Care Nurse Name: Carmen Murphy RN Position: [facility] RN Member Role: Primary Care Nurse Name: Rylie Ordonez RN Position: [facility] ONESIMOO RN Member Role: Primary Care Nurse Name: Aditi Brown RN Position: [facility] RN Member Role: Primary Care Nurse Name: Chana Cazares RN Position: [facility] RN Member Role: Primary Care Nurse Name: Toshia Urbina RN Position: [facility] RN Member Role: Primary Care Nurse Name: Aniyah Sloan RN Position: [facility] SN RN Member Role: Primary Care Nurse Name: Rosemary Ramon RN Position: [facility] OB RN Member Role: Primary Care Nurse Name: Sneha Newton RN Position: [facility] Hospital Loader Member Role: Primary Care Nurse Care Team Related Persons Name: CLAUDIA URBINA Address: [address] [place] [address] Name: RALPH SÁNCHEZ Address: home [address] [place] [address] Name: DONY CARCAMO Address: [address] [place] [address]
--- OUTSIDE RECORDS SUMMARY | 2024-02-08 01:03 | XMS_ITS | Continuity of Care Document ---
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 Role Phone Марина CORDERO, Ignacio New Primary Care Physician [place] [facility] [place] - 08/25/[address] [id number]- [facility] Attending Physician: Julia Haile Admitting Physician: AdmtrJulia Referring Physician: Admtr, Ar8 Allergies, Adverse Reactions, [...] diclofenac 1% topical gel 1 application, Topically, 2 times a day, # 100 Gm, 1 Refills, Maintenance, 08/02/19 11:53:00 EST, Gel, [facility]/pharmacy #[id number], 160, cm, 07/01/19 10:58:00 EST, Height Start Date: 08/02/19 Status: Ordered Eliquis 5 mg oral tablet 1 tablet, By Mouth, 2 times a day, # 180 tablet, Refills 3 Tot. Refills 3, [facility]/pharmacy #[id number] Start Date: 06/17/19 Status: Ordered ferrous sulfate 325 mg oral enteric coated tablet 325 mg, 1, tablet, By Mouth, Daily, # 30 tablet, Refills 0, Maintenance, 01/13/19 10:24:03 EDT Start Date: 01/13/19 Status: Ordered gabapentin 300 mg oral capsule 300 mg, 1, capsule, By Mouth, 3 times a day, # 90 capsule, Refills 2, Tot. Refills 2, Maintenance, 03/20/19 12:07:35 EDT, Route to Pharmacy Electronically, [id number], [facility]/pharmacy #[id number] Start Date: 03/20/19 Status: Ordered Lialda 1.2 g oral delayed release tablet 2 tablet = 2.4 Gm, By Mouth, Daily, 0 Refills, Maintenance, 06/27/18 15:39:26 EST Start Date: 06/27/18 Status: Ordered Lumigan 0.03% ophthalmic solution 1 drops, Eyes, Both, Daily before dinner, 0 Refills Start Date: 02/09/09 Status: Ordered Requip 0.5 mg oral tablet [...]
--- OUTSIDE RECORDS SUMMARY | 2024-02-08 01:03 | XMS_ITS | Continuity of Care Document ---
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 Start Date: 07/09/21 Stop Date: 07/04/22 Status: Ordered Cosopt 2.23%-0.68% ophthalmic solution 1 drops, Eyes, Both, 2 times a day, # 10 mL, 0 Refills, Maintenance, 03/23/21 9:41:00 EDT, Solution, [facility]/pharmacy #[id number], Partial fill upon patient request if the prescription is for a schedule II opioid drug., 1 drops Eyes, Both 2 times a day, 159, cm... Start Date: 03/23/21 Status: Ordered [facility] 81 MG TABLET [facility] 81 MG TABLET, 1, tablet, By Mouth, Daily, # 30 tablet, 0 Refills, 158, cm, 04/14/21 11:28:00 EDT, Height, 98.6, kg, 04/11/21 15:59:00 EDT, Dry Weight Start Date: 04/22/21 Status: Ordered diclofenac 1% topical gel 1 application, Topically, 4 times a day, # 100 Gm, 5 Refills, Maintenance, 10/07/19 10:56:00 EDT, Gel, [facility]/pharmacy #[id number], 160, cm, 08/19/19 8:02:00 EST, Height Start Date: 10/07/19 Status: Ordered Eliquis 5 mg oral tablet 1 tablet, By Mouth, 2 times a day, # 180 tablet, 3 Refills, [id number], 158, cm, 06/09/21 10:14:00 EST, Height, 98.6, kg, 04/11/21 15:59:00 EDT, Dry Weight Start Date: 06/17/21 Status: Ordered empagliflozin 10 mg oral tablet 1 tablet = 10 mg, By Mouth, Daily in AM, # 90 tablet, 3 Refills, Maintenance, 06/09/21 12:06:00 EST, Tablet, [facility]/pharmacy #[id number], Partial fill upon patient [...] 07/31/21 10:21:00 EST, Route to Pharmacy Electronically, [facility]/pharmacy #[id number], 159, cm, 07/25/21 11:20:00 EST, Height, 98, kg, 07/06/21 19:57:00 EST, Dry Weight Start Date: 07/31/21 Status: Ordered isosorbide mononitrate 30 mg oral tablet, extended release 1 tablet, By Mouth, Daily, for 90 days, # 90 tablet, 3 Refills, Physician Stop 04/20/22 16:32:00 EDT, 04/25/21 16:32:00 EDT, [facility]/pharmacy #[id number], 158, cm, 04/25/21 14:49:00 EDT, Height, 98.6, kg, 04/11/21 15:59:00 EDT, Dry Weight Start Date: 04/25/21 Stop Date: 04/20/22 Status: Ordered latanoprost 0.005% ophthalmic solution See Instructions, INSTILL 1 DROP IN BOTH EYES DAILY BEFORE DINNER, # 2.5 mL, 0 Refills, [facility] [id number], 18, INSTILL 1 DROP IN BOTH EYES DAILY BEFORE DINNER, 158, cm, 04/14/21 11:28:00 EDT, Height, 98.6, kg, 04/11/21 15:59:00 EDT, Dry Weight Start Date: 04/14/21 Status: Ordered Lipitor 40 mg oral tablet 1 tablet = 40 mg, By Mouth, Daily, # 30 tablet, 5 Refills, Maintenance, 04/28/21 6:50:00 EDT, Tablet, [facility]/pharmacy #[id number], Partial fill upon patient [...] 12/06/20 13:03:00 EDT, Route to Pharmacy Electronically, [facility]/pharmacy #[id number], Partial fill upon patient [...] 0 Refills, Maintenance, 03/15/21 12:38:00 EDT, Tablet, [facility]/pharmacy #[id number], Partial fill... Start Date: [...] 05/14/21 12:51:00 EDT, Route to Pharmacy Electronically, [facility]/pharmacy #[id number], Partial fill upon patient request if the prescription is... Start Date: 05/14/21 Stop Date: 11/10/21 Status: Ordered torsemide 20 mg oral tablet 1 tablet = 20 mg, By Mouth, Daily, # 30 tablet, 5 Refills, Maintenance, 05/10/21 4:19:00 EDT, Tablet, [facility]/pharmacy #[id number], Partial fill upon patient [...]
--- OUTSIDE RECORDS SUMMARY | 2024-02-08 01:03 | XMS_ITS | Continuity of Care Document ---
Author Organization [facility] ter Address [address] [place] [id number]- Care Team Providers Care Veterans Contact Representative Name Role Phone Марина CORDERO, Ignacio New Primary Care Physician Encounter [facility] [place], [place] Date(s): 02/28/20 - 03/10/[address] [address]- [facility] Encounter Diagnosis Back pain(Final) - 02/28/20 Pneumonia(Final) - 02/28/20 Discharge Disposition: A-Transfer VNA/Home Health Attending Physician: Alissa Don MD Admitting Physician: Aric Coates MD Referring Physician: Not on Staff, Referring MD Allergies, Adverse Reactions, Alerts Substance Reaction [...] 5 Refills, Maintenance, 10/07/19 10:56:00 EDT, Gel, [facility]/pharmacy #[id number], 160, cm, 08/19/19 8:02:00 EST, [...] 03/10/20 10:49:00 EDT, Route to Pharmacy Electronically, [facility]/pharmacy #[id number], 157, cm, 03/10/20 8:47:00 EDT, Height, 91, kg, 02/28/20 22:14:00 EDT, Dry W... Start Date: 03/10/20 Status: Ordered Eliquis 5 mg oral tablet 1 tablet, By Mouth, 2 times a day, # 180 tablet, Refills 3 Tot. Refills 3, [facility]/pharmacy #[id number] Start Date: 06/17/19 Status: Ordered gabapentin 400 mg oral capsule 400 mg, 1, capsule, By Mouth, 3 times a day, # 21 capsule, Refills 0, Tot. Refills 0, Maintenance, 03/10/20 10:48:00 EDT, Route to Pharmacy Electronically, [facility]/pharmacy #[id number], 157, cm, 03/10/20 8:47:00 EDT, Height, 91, kg, 02/28/20 22:14:00 EDT, Dry W... Start Date: 03/10/20 Stop Date: 03/17/20 Status: Ordered Lialda 1.2 g oral delayed release tablet 2 tablet = 2.4 Gm, By Mouth, Daily, 0 Refills, Maintenance, 06/27/18 15:39:26 EST Start Date: 06/27/18 Status: Ordered lidocaine 5% topical film 1 patch, Topically, Daily, # 30 patch, 0 Refills, Maintenance, 03/10/20 10:50:00 EDT, Patch, [facility]/pharmacy #7111, 1 patch Topically Daily, 157, cm, 03/10/20 8:47:00 EDT, Height, 91, kg, 02/28/20 22:14:00 EDT, Dry Weight Start Date: 03/10/20 Status: Ordered Norvasc 5 mg oral tablet 5 mg, 1, tablet, By Mouth, Daily, # 30 tablet, Refills 0, Tot. Refills 0, Maintenance, 03/10/20 10:49:00 EDT, [facility] 157, cm, 03/10/20 8:47:00 EDT, Height, 91, kg, 02/28/20 22:14:00 EDT, Dry Weight Start Date: 03/10/20 Status: Ordered ProAir HFA 90 mcg/inh inhalation aerosol with adapter 2, puffs, Inhalation, Every 6 hours, PRN, # 8.5 Gm, Refills 0, Tot. Refills 0, Maintenance, 02/20/20 16:00:00 EDT, Aerosol, Route to Pharmacy Electronically, [id number], [facility]/pharmacy #[id number], 160, cm, 02/20/20 15:13:00 EDT, Height Start Date: 02/20/20 Status: Ordered Requip 0.5 mg oral tablet 1 tablet = 0.5 mg, By Mouth, 3 times a day, 0 Refills, Maintenance Start Date: 03/17/10 Status: Ordered tiZANidine 4 mg oral tablet 4 mg, 1, tablet, By Mouth, 3 times a day, PRN, # 21 tablet, Refills 0, Tot. Refills 0, Maintenance,Spasm, 03/10/20 10:51:00 EDT, Route to Pharmacy Electronically, [facility]/pharmacy #[id number], 157, cm, 03/10/20 8:47:00 EDT, Height, [...] Active Vertigo(Confirmed) Active 1RT LEG 2BILATERAL KNEES Results Orders for Microbiology Reports Name Date Blood Culture 03/08/20 Blood Culture 03/05/20 Blood Culture #2 03/05/20 Blood Culture 03/03/20 Blood Culture (BLOOD CULTURE) 03/03/20 Blood Culture #2 03/01/20 Blood Culture 02/28/20 Blood Culture #2 02/28/20 Urine Culture 02/27/20 Microbiology Reports TEST:Blood Culture STATUS:Unauthenticated BODY SITE: SOURCE:Blood COLLECTED DATE/TIME:03/08/20 6:44 AM Blood Culture SPECIMEN DESCRIPTION : BLOOD NO SITE SPECIAL REQUESTS : NONE CULTURE : NO GROWTH AFTER 48 HOURS REPORT STATUS : PRELIMINARY REPORT TEST:Blood Culture STATUS:Auth (Verified) BODY SITE: SOURCE:Blood COLLECTED DATE/TIME:03/05/20 5:25 AM Blood Culture SPECIMEN DESCRIPTION : BLOOD R HAND SPECIAL REQUESTS : NONE CULTURE : NO GROWTH 5 DAYS. REPORT STATUS : FINAL 03/10/2020 TEST:Blood Culture, Second Order STATUS:Auth (Verified) BODY SITE: SOURCE:Blood COLLECTED DATE/TIME:03/05/20 5:25 AM Blood Culture, Second Order SPECIMEN DESCRIPTION : BLOOD LA SPECIAL REQUESTS : NONE CULTURE : NO GROWTH 5 DAYS. REPORT STATUS : FINAL 03/10/2020 TEST:Blood Culture STATUS:Auth (Verified) BODY SITE: SOURCE:Blood COLLECTED DATE/TIME:03/03/20 8:00 AM Blood Culture SPECIMEN DESCRIPTION : BLOOD NONE SPECIAL REQUESTS : CRITICAL VALUE CALLED AND VERIFIED BY READBACK FOR: GRAM POSITIVE COCCI CALLED TO [id number], W4, ON 03/04/2020 AT 18:46 BY TECH [id number] CULTURE : STAPHYLOCOCCUS AUREUS. REPORT STATUS : FINAL 03/06/2020 ORGANISM STAPHYLOCOCCUS AUREUS. METHOD MIN. INHIB. CONC. (MCG/ML) CIPROFLOXACIN SUSCEPTIBLE CLINDAMYCIN SUSCEPTIBLE ERYTHROMYCIN SUSCEPTIBLE LEVOFLOXACIN SUSCEPTIBLE OXACILLIN SUSCEPTIBLE PENICILLIN SUSCEPTIBLE RIFAMPIN SUSCEPTIBLE RIFAMPIN RIFAMPIN SHOULD NOT BE USED ALONE FOR ANTIMICROBIAL RIFAMPIN THERAPY. TETRACYCLINE SUSCEPTIBLE TRIMETH/SULFAMETHOX SUSCEPTIBLE VANCOMYCIN SUSCEPTIBLE TEST:Blood Culture STATUS:Auth (Verified) BODY SITE: SOURCE:Blood COLLECTED DATE/TIME:03/03/20 7:02 AM Blood Culture SPECIMEN DESCRIPTION : BLOOD L SPECIAL REQUESTS : CRITICAL VALUE CALLED AND VERIFIED BY READBACK FOR: GRAM POSITIVE COCCI CALLED TO [id number] [id number] BY TECH [id number] CULTURE : STAPHYLOCOCCUS AUREUS. REPORT STATUS : FINAL 03/08/2020 ORGANISM STAPHYLOCOCCUS AUREUS. METHOD MIN. INHIB. CONC. (MCG/ML) CIPROFLOXACIN SUSCEPTIBLE CLINDAMYCIN SUSCEPTIBLE ERYTHROMYCIN SUSCEPTIBLE LEVOFLOXACIN SUSCEPTIBLE OXACILLIN SUSCEPTIBLE PENICILLIN SUSCEPTIBLE RIFAMPIN SUSCEPTIBLE RIFAMPIN RIFAMPIN SHOULD NOT BE USED ALONE FOR ANTIMICROBIAL RIFAMPIN THERAPY. TETRACYCLINE SUSCEPTIBLE TRIMETH/SULFAMETHOX SUSCEPTIBLE VANCOMYCIN SUSCEPTIBLE TEST:Blood Culture, Second Order STATUS:Auth (Verified) BODY SITE: SOURCE:Blood COLLECTED DATE/TIME:03/01/20 6:31 AM Blood Culture, Second Order SPECIMEN DESCRIPTION : BLOOD NOSITE SPECIAL REQUESTS : CRITICAL VALUE CALLED AND VERIFIED BY READBACK FOR: GRAM POSITIVE COCCI TO [id number] ON [id number] AT 150 BY [id number] CULTURE : STAPHYLOCOCCUS AUREUS. REPORT STATUS : FINAL 03/04/2020 ORGANISM STAPHYLOCOCCUS AUREUS. METHOD MIN. INHIB. CONC. (MCG/ML) CIPROFLOXACIN SUSCEPTIBLE CLINDAMYCIN SUSCEPTIBLE ERYTHROMYCIN SUSCEPTIBLE LEVOFLOXACIN SUSCEPTIBLE OXACILLIN SUSCEPTIBLE PENICILLIN SUSCEPTIBLE RIFAMPIN SUSCEPTIBLE RIFAMPIN RIFAMPIN SHOULD NOT BE USED ALONE FOR ANTIMICROBIAL RIFAMPIN THERAPY. TETRACYCLINE SUSCEPTIBLE TRIMETH/SULFAMETHOX SUSCEPTIBLE VANCOMYCIN SUSCEPTIBLE TEST:Blood Culture, Second Order STATUS:Auth (Verified) BODY SITE: SOURCE:Blood COLLECTED DATE/TIME:02/28/20 3:25 PM Blood Culture, Second Order SPECIMEN DESCRIPTION : BLOOD RIGHT HAND SPECIAL REQUESTS : CRITICAL VALUE CALLED AND VERIFIED BY READBACK FOR: GRAM POSITIVE COCCI TO [id number], W4, 02/29/2020 0505, BY TECH [id number] CULTURE : STAPHYLOCOCCUS AUREUS. REPORT STATUS : FINAL 03/02/2020 ORGANISM STAPHYLOCOCCUS AUREUS. METHOD MIN. INHIB. CONC. (MCG/ML) CIPROFLOXACIN SUSCEPTIBLE CLINDAMYCIN SUSCEPTIBLE ERYTHROMYCIN SUSCEPTIBLE LEVOFLOXACIN SUSCEPTIBLE OXACILLIN SUSCEPTIBLE PENICILLIN SUSCEPTIBLE RIFAMPIN SUSCEPTIBLE RIFAMPIN RIFAMPIN SHOULD NOT BE USED ALONE FOR ANTIMICROBIAL RIFAMPIN THERAPY. TETRACYCLINE SUSCEPTIBLE TRIMETH/SULFAMETHOX SUSCEPTIBLE VANCOMYCIN SUSCEPTIBLE TEST:Blood Culture STATUS:Auth (Verified) BODY SITE: SOURCE:Blood COLLECTED DATE/TIME:02/28/20 2:16 PM Blood Culture SPECIMEN DESCRIPTION : BLOOD LFA SPECIAL REQUESTS : CRITICAL VALUE CALLED AND VERIFIED BY READBACK FOR: GRAM POSITIVE COCCI TO [id number], W4, 02/29/2020 0505, BY TECH [id number] CULTURE : STAPHYLOCOCCUS AUREUS. FOR SUSCEPTIBILITY RESULT REFER TO BLOOD CULTURE S. aureus was identified by multi-plex PCR. MecA NOT detected. The absence of the mecA gene is associated with susceptibility to methicillin (MSSA). REPORT STATUS : FINAL 03/07/2020 TEST:Urine Culture STATUS:Auth (Verified) BODY SITE: SOURCE:URINE COLLECTED DATE/TIME:02/27/20 4:14 PM Urine Culture SPECIMEN DESCRIPTION : URINE CLEAN CATCH/MIDSTREAM SPECIAL REQUESTS : NONE CULTURE : Mixed bacterial mo, indicative of urogenital contamination. REPORT STATUS : FINAL 02/28/2020 Radiology Reports * Exam Date Time Procedure Performing Provider Status 03/03/20 10:57 AM Chest Portable [facility] (Verified) Notes: (Chest Portable) Reason For Exam: Shortness of Breath RESULT: Chest Portable Chest Portable Reason: Shortness of Breath; Clinical Question(s): Follow-Up Abnormal Exam COMPARISON: Multiple prior examinations, the most recent 02/27/2020. FINDINGS: LINES AND TUBES: Monitoring leads project over the chest. LUNGS AND PLEURA: Overall improved lung volumes with resolving basilar airspace opacities. Persistent blunting of thelateral costophrenic angles and the suggestion of fluid within the minor fissure, consistent with bilateral pleural effusions. Persistent interstitial opacities concerning for pulmonary edema. No foca l/confluent airspace consolidation. No pneumothorax. HEART, MEDIASTINUM AND WILRFED: Heart size is stable. Mediastinal contours are unchanged. BONES AND SOFT TISSUES: No acute abnormality. Stable distal resection of the right clavicle. IMPRESSION: Overall somewhat improved examination with resolving basilar airspace opacities. Persistent evidence of pulmonary edema and bilateral pleural effusions. WSN: [id number] Ordering Physician: Citlaly Menchaca Dictated By: Teo Brock MD Dictated Date/Time: 03/03/20 12:09 p Reviewed By: Teo Brock MD Signed By: Teo Brock MD Signed Date/Time: 03/03/20 12:09 pm Transcribed By: WENDY Transcribed Date/Time: 03/03/20 11:35 am * Exam Date Time Procedure Performing Provider Status 02/27/20 4:44 PM Chest 2 Views Frontal and Lat Kaci Franco; Larry (Verified) Notes: (Chest 2 Views Frontal and Lat) Reason For Exam: Chest pain;Other: RESULT: Chest 2 Views Frontal and Lat Chest 2 Views Frontal and Lat Reason: Other:; Chest pain; Clinical Question(s): Pneumonia; Hx of Present Illness: Flank pain COMPARISON: Multiple prior examinations, the most recent study of 02/20/2020. FINDINGS: LINES AND TUBES: None. LUNGS AND PLEURA: Diminished lung volumes with bilateral ill-defined airspace opacities. Linear peripheral opacities,consistent with interstitial fluid versus fluid in the fissures. Possible minimal blunting of the posterior costophrenic angles. The upper lungs are clear. No pneumothorax. HEART, MEDIASTINUM AND WILFRED: The heart size is probably unchanged given the differences in technique and lung volumes. The mediastinal contours are stable with stable tortuosity of the thoracic aorta. BONES AND SOFT TISSUES: No acute abnormality. Foreshortening of the distal right clavicle again identified. IMPRESSION: Decreased lung lines with bilateral basilar airspace opacities, possibly interstitial pleural fluid, suggesting bilateral pleural effusions and compressive atelectasis. However, an underlying pneumonia is not excluded. A [place] message has been communicated via the [employer] system on 02/27/2020 4:53 PM, Message ID [id number]. WSN: [id number] Ordering Physician: Immanuel Carpio Dictated By: Teo Brock MD Dictated Date/Time: 02/27/20 4:53 pm Reviewed By: Teo Brock MD Signed By: Teo Brock MD Signed Date/Time: 02/27/20 4:53 pm Transcribed By: WENDY Transcribed Date/Time: 02/27/20 4:48 pm Vital Signs Most recent to oldest [Reference Range]: 1 2 3 Height 157 cm (03/10/20 8:47 AM) 157 cm (03/10/20 7:47 AM) 157 cm (03/09/20 4:32 PM) Weight 91 kg (02/28/20 10:14 PM) Oxygen Saturation [94-100 %] 97 % (03/10/20 7:47 AM) 95 % (03/09/20 11:00 PM) 97 % (03/09/20 7:00 PM) Pulse Rate [55-90 bpm] 64 bpm (03/10/20 7:47 AM) 65 bpm (03/09/20 11:00 PM) 70 bpm (03/09/20 7:00 PM) Body Mass Index [18.5-24.99] 36.92 *>HHI* (02/28/20 10:14 PM) Blood Pressure [90-138/55-84 mm Hg] 154/70mm Hg *H* (03/10/20 8:47 AM) 189/83mm Hg *H* (03/10/20 8:23 AM) 189/83mm Hg *H* (03/10/20 7:47 AM) Respiratory Rate [16-30 br/min] 18 br/min (03/10/20 8:17 AM) 18 br/min (03/10/20 8:05 AM) 16 br/min (03/10/20 7:47 AM) Temperature [96.8-100.4 DegF] 98.2 DegF (03/10/20 7:47 AM) 98.9 DegF (03/09/20 11:00 PM) 98.0 DegF (03/09/20 7:00 PM) Liters per Minute 2 L/min (03/06/20 3:00 PM) 2 L/min (03/06/20 7:00 AM) 2 L/min (03/06/20 4:08 AM) Mode of Delivery (Oxygen) Room air (03/10/20 7:47 AM) Room air (03/09/20 11:00 PM) Room air (03/09/20 7:00 PM) Blood pressure sites Arm, right (03/10/20 7:47 AM) Arm, left (03/09/20 11:00 PM) Arm, left (03/09/20 7:00 PM) Temperature Route Oral (03/10/20 7:47 AM) Oral (03/09/20 11:00 PM) Oral (03/09/20 7:00 PM) Dry Weight 91 kg (02/28/20 10:14 PM) Social History Social History Type Response Smoking Status Never (less than 100 in lifetime) entered on: 06/27/18 Sex
--- OUTSIDE RECORDS SUMMARY | 2024-02-08 01:03 | XMS_ITS | Continuity of Care Document ---
Author Organization 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 [place] [address] [place] [address]- Allergies, Adverse Reactions, Alerts Substance Reaction Severity [...] Given Parent Or Guardian Refuses 1Result Comment: [id number] History: DR LOAIZA 3Location History: DR LOAIZA 4Location History: DR LOAIZA 5Location History: DR LOAIZA Medications atorvastatin 40 mg oral tablet 1 tablet, By Mouth, Daily at bedtime, # 90 tablet, 3 Refills, Maintenance, 05/13/22 7:24:00 EDT, [facility], 157, cm, 05/12/22 13:47:00 EDT, Height, 94.3, kg, 01/19/22 4:25:00 EDT, Dry Weight Start Date: 05/13/22 Status: Ordered Eliquis 5 mg oral tablet 1 tablet, By Mouth, 2 times a day, # 180 tablet, 3 Refills, Maintenance, 05/27/22 16:57:00 EDT, [facility], 157, cm, 05/12/22 13:47:00 EDT, Height, 94.3, kg, 01/19/22 4:25:00 EDT, Dry Weight Start Date: 05/27/22 Status: Ordered isosorbide mononitrate 60 mg oral tablet, extended release 60 mg, 1, tablet, By Mouth, 2 times a day, # 180 tablet, Refills 3, Tot. Refills 3, Maintenance, 07/10/22 16:07:00 EST, Route to Pharmacy Electronically, [facility]/pharmacy #[id number], Partial fill upon patientrequest if the prescription is for a schedule II op... Start Date: 07/10/22 Status: Ordered Metoprolol Succinate ER 25 mg oral tablet, extended release 1 tablet, By Mouth, Daily, # 90 tablet, 3 Refills, 09/30/22 20:06:00 EST, [facility]/pharmacy #[id number], 157, cm, 09/15/22 11:19:00 EST, Height, 94.3, kg, 01/19/22 4:25:00 EDT, Dry Weight Start Date: 09/30/22 Status: Ordered nitroglycerin 0.4 mg sublingual tablet 1 tablet = 0.4 mg, Sublingual, Every 5 minutes, PRN as needed for chest pain, not to exceed 3 doses/15 min--if pain persists, seek medical attention, # 100 tablet, 0 Refills, Maintenance, 12/19/22 9:51:00 EDT, Tablet, [facility]/pharmacy #[id number], Partial fill... Start Date: 12/19/22 Status: Ordered rOPINIRole 0.5 mg oral tablet 1 tablet, By Mouth, 4 times a day, # 360 tablet, 1 Refills, Maintenance, 01/22/23 9:08:00 EDT, [facility], 157, cm, 12/28/22 14:14:00 EDT, Height, 94.3, kg, 01/19/22 4:25:00 EDT, Dry Weight Start Date: 01/22/23 Status: Ordered spironolactone 25 mg oral tablet 25 mg, 1, tablet, By Mouth, Daily, # 90 tablet, Refills 3, Tot. Refills 3, Maintenance, 10/09/22 15:42:00 EDT, Route to Pharmacy Electronically, [facility]/pharmacy #[id number], Partial fill upon patient request if the prescription is for a schedule II opioid drug... Start Date: 10/09/22 Stop Date: 10/04/23 Status: Ordered torsemide 20 mg oral tablet 2 tablet = 40 mg, By Mouth, Daily, for 90 days, # 180 tablet, 3 Refills, Physician Stop 07/26/23 8:14:00 EST, 07/31/22 8:14:00 EST, [facility]/pharmacy #7111, 157, cm, 07/27/22 15:56:00 EST, Height, [...] Team Personnel Name: Lisa Carlson RN Position: [facility] RN Member Role: Primary Care Nurse Name: Estrellita Putnam RN Position: [facility] RN Member Role: Primary Care Nurse Name: Marlen Kenny RN Position: [facility] RN Member Role: Primary Care Nurse Name: Toshia Muhammad RN Position: [facility] RN Supv Member Role: Primary Care Nurse Name: Suleman Jones RN Position: [facility] RN Member Role: Primary Care Nurse Name: Kathy Mednia RN Position: S RN Member Role: Primary Care Nurse Name: Mick Tatum MD Position: [facility] Physician - Primary Care Member Role: PCP Address: Address: [address] [place] [id number]- Name: Svitlana Clark RN Position: S RN Member Role: Primary Care Nurse Name: Yoana Guevara RN Position: [facility] RN Member Role: Primary Care Nurse Name: Pierre Groves RN Position: S RN Member Role: Primary Care Nurse Name: Carmen Murphy RN Position: [facility] RN Member Role: Primary Care Nurse Name: Rylie Ordonez RN Position: [facility] AMB Nurse Member Role: Primary Care Nurse Name: Aditi Brown RN Position: [facility] RN Member Role: Primary Care Nurse Name: Chana Cazares RN Position: [facility] RN Member Role: Primary Care Nurse Name: Toshia Urbina RN Position: [facility] RN Member Role: Primary Care Nurse Name: Isabel Gray Position: [facility] [place] Product/Industry Consultant Member Role: Ice Cream Shop Associate Name: Aniyah Sloan RN Position: [facility] SN RN Member Role: Primary Care Nurse Name: Rosemary Ramon RN Position: [facility] OB RN Member Role: Primary Care Nurse Name: Sneha Newton RN Position: [facility] Hospital Drafter Refrigeration Member Role: Primary Care Nurse Care Team Related Persons Name: GAUDENCIO URBINAALD Address: home [address] [place] [address] Name: RALPH SÁNCHEZ Address: [address] [place] [address] Name: DONY CARCAMO Address: [address] [place] [address]
--- OUTSIDE RECORDS SUMMARY | 2024-02-08 01:03 | XMS_ITS | Continuity of Care Document ---
Author Organization [facility] Address [address] [place] [address]- Care Team Providers Care Automation Technologist Name Role Phone Mick Tatum MD Primary Care Physician Encounter [facility] [place] Date(s): 08/01/21 - 08/08/21 [facility] [place] Adult [address] [place] [address]- Attending Physician: Mick Tatum MD Allergies, Adverse [...] 07/09/21 10:04:00 EST, Route to Pharmacy Electronically, [facility]/pharmacy #7111, Partial fill upon patient request if the prescription is for a schedule II opioid . Start Date: 07/09/21 Stop Date: 07/04/22 Status: Ordered Cosopt 2.23%-0.68% ophthalmic solution 1 drops, Eyes, Both, 2 times a day, # 10 mL, 0 Refills, Maintenance, 03/23/21 9:41:00 EDT, Solution, [facility]/pharmacy #7111, Partial fill upon patient request if the prescription is for a schedule II opioid drug., 1 drops Eyes, Both 2 times a day, 159, cm... Start Date: 03/23/21 Status: Ordered [facility] ASPIRIN EC 81 MG TABLET [facility] ASPIRIN EC 81 MG TABLET, 1, tablet, By Mouth, Daily, # 30 tablet, 0 Refills, 158, cm, 04/14/21 11:28:00 EDT, Height, 98.6, kg, 04/11/21 15:59:00 EDT, Dry Weight Start Date: 04/22/21 Status: Ordered diclofenac 1% topical gel 1 application, Topically, 4 times a day, # 100 Gm, 5 Refills, Maintenance, 10/07/19 10:56:00 EDT, Gel, [facility]/pharmacy #7111, 160, cm, 08/19/19 8:02:00 EST, Height Start Date: 10/07/19 Status: Ordered Eliquis 5 mg oral tablet 1 tablet, By Mouth, 2 times a day, # 180 tablet, 3 Refills, [facility], 158, cm, 06/09/21 10:14:00 EST, Height, 98.6, kg, 04/11/21 15:59:00 EDT, Dry Weight Start Date: 06/17/21 Status: Ordered empagliflozin 10 mg oral tablet 1 tablet = 10 mg, By Mouth, Daily in AM, # 90 tablet, 3 Refills, Maintenance, 06/09/21 12:06:00 EST, Tablet, [facility]/pharmacy #7111, Partial fill upon patient request [...] 07/31/21 10:21:00 EST, Route to Pharmacy Electronically, [facility]/pharmacy #7111, 159, cm, 07/25/21 11:20:00 EST, Height, 98, kg, 07/06/21 19:57:00 EST, Dry Weight Start Date: 07/31/21 Status: Ordered isosorbide mononitrate 30 mg oral tablet, extended release 1 tablet, By Mouth, Daily, for 90 days, # 90 tablet, 3 Refills, Physician Stop 04/20/22 16:32:00 EDT, 04/25/21 16:32:00 EDT, [facility]/pharmacy #7111, 158, cm, 04/25/21 14:49:00 EDT, Height, 98.6, kg, 04/11/21 15:59:00 EDT, Dry Weight Start Date: 04/25/21 Stop Date: 04/20/22 Status: Ordered latanoprost 0.005% ophthalmic solution See Instructions, INSTILL 1 DROP IN BOTH EYES DAILY BEFORE DINNER, # 2.5 mL, 0 Refills, [facility], 18, INSTILL 1 DROP IN BOTH EYES DAILY BEFORE DINNER, 158, cm, 04/14/21 11:28:00 EDT, Height, 98.6, kg, 04/11/21 15:59:00 EDT, Dry Weight Start Date: 04/14/21 Status: Ordered Lipitor 40 mg oral tablet 1 tablet = 40 mg, By Mouth, Daily, # 30 tablet, 5 Refills, Maintenance, 04/28/21 6:50:00 EDT, Tablet, [facility]/pharmacy #7111, Partial fill upon patient request [...] 12/06/20 13:03:00 EDT, Route to Pharmacy Electronically, [facility]/pharmacy #7111, Partial fill upon patient request [...] 0 Refills, Maintenance, 03/15/21 12:38:00 EDT, Tablet, [facility]/pharmacy #7111, Partial fill... Start Date: 03/15/21 [...] 05/14/21 12:51:00 EDT, Route to Pharmacy Electronically, [facility]/pharmacy #7111, Partial fill upon patient request if the prescription is... Start Date: 05/14/21 Stop Date: 11/10/21 Status: Ordered torsemide 20 mg oral tablet 1 tablet = 20 mg, By Mouth, Daily, # 30 tablet, 5 Refills, Maintenance, 05/10/21 4:19:00 EDT, Tablet, [facility]/pharmacy #7111, Partial fill upon patient request [...] recent to oldest [Reference Range]: 1 Height 159 cm (08/01/21 3:05 PM) Weight 94.9 kg (08/01/21 3:05 PM) Body Mass Index [18.5-24.99] 37.54 *>HHI* (08/01/21 3:05 PM) Social History Social History Type Response Smoking Status Never (less than 100 in lifetime) entered on: 06/27/18 Sex
--- OUTSIDE RECORDS SUMMARY | 2024-02-08 01:03 | XMS_ITS | Continuity of Care Document ---
Author Organization [facility] Gopi Jose lt Address [address] [place] [address]- Care Team Providers Care Egg Breaking Machine Operator Name Role Phone Mick Tatum MD Primary Care Physician Encounter [facility] [place] Date(s): 07/10/22 - 07/17/22 [facility] Adult [address] [place] [address]- Attending Physician: Mick Tatum MD Allergies, Adverse [...] Given Parent Or Guardian Refuses 1Result Comment: [id number] 2Location History: DR LOAIZA 3Location History: DR LOAIZA 4Location History: DR LOAIZA 5Location History: DR LOAIZA Medications atorvastatin 40 mg oral tablet 1 tablet, By Mouth, Daily at bedtime, # 90 tablet, 3 Refills, Maintenance, 05/13/22 7:24:00 EDT, [id number], 157, cm, 05/12/22 13:47:00 EDT, Height, 94.3, [...] 6:58:00 EDT, 01/18/22 6:58:00 EDT, CR Capsule, [facility]/pharmacy #[id number], Partial fill upon patient request if the prescription is for a schedule II opioid drug., 159, cm, 12/21... Start Date: 01/18/22 Stop Date: 01/18/23 Status: Ordered clopidogrel 75 mg oral tablet 75 mg, 1, tablet, By Mouth, Daily, # 90 tablet, Refills 3, Tot. Refills 3, Maintenance, 07/10/22 16:07:00 EST, Route to Pharmacy Electronically, [facility]/pharmacy #[id number], Partial fill upon patient request if the prescription is for a schedule II opioid drug... Start Date: 07/10/22 Stop Date: 07/05/23 Status: Ordered Cosopt 2.23%-0.68% ophthalmic solution 1 drops, Eyes, Both, 2 times a day, # 10 mL, 0 Refills, Maintenance, 03/23/21 9:41:00 EDT, Solution, [facility]/pharmacy #[id number], Partial fill upon patient request if the prescription is for a schedule II opioid drug., 1 drops Eyes, Both 2 times a day, 159, cm... Start Date: 03/23/21 Status: Ordered diclofenac 1% topical gel 1 application, Topically, 4 times a day, # 100 Gm, 5 Refills, Maintenance, 05/13/22 9:34:00 EDT, Gel, [facility]/pharmacy #[id number], 157, cm, 05/12/22 13:47:00 EDT, Height, 94.3, kg, 01/19/22 4:25:00 EDT, Dry Weight Start Date: 05/13/22 Status: Ordered Eliquis 5 mg oral tablet 1 tablet, By Mouth, 2 times a day, # 180 tablet, 3 Refills, Maintenance, 05/27/22 16:57:00 EDT[id number], cm, 05/12/22 13:47:00 EDT, Height, 94.3, kg, 01/19/22 4:25:00 EDT, Dry Weight Start Date: 05/27/22 Status: Ordered empagliflozin 10 mg oral tablet 1 tablet = 10 mg, By Mouth, Daily in AM, # 90 tablet, 3 Refills, Maintenance, 06/09/22 12:36:00 EST, Tablet, [facility]/pharmacy #[id number], Partial fill upon patient request if the prescription is for a schedule II opioid drug., 157, cm, 05/12/22 13:47:00 EDT, H... Start Date: 06/09/22 Stop Date: 06/04/23 Status: Ordered gabapentin 400 mg oral capsule 2, capsule, By Mouth, 3 times a day, # 180 capsule, Refills 5, Route to Pharmacy Electronically, [id number], 159, cm, 12/21/21 15:41:00 EDT, Height, 93.6, kg, 01/06/22 9:12:00 EDT, Dry Weight Start Date: 01/17/22 Status: Ordered isosorbide mononitrate 60 mg oral tablet, extended release 60 mg, 1, tablet, By Mouth, 2 times a day, # 180 tablet, Refills 3, Tot. Refills 3, Maintenance, 07/10/22 16:07:00 EST, Route to Pharmacy Electronically, [facility]/pharmacy #[id number], Partial fill upon patientrequest if the prescription is for a schedule II op... Start Date: 07/10/22 Status: Ordered latanoprost 0.005% ophthalmic solution See Instructions, INSTILL 1 DROP IN BOTH EYES DAILY BEFORE DINNER, # 2.5 mL, 0 Refills, [facility] STORE [id number], 18, INSTILL 1 DROP IN BOTH EYES DAILY BEFORE DINNER, 158, cm, 04/14/21 11:28:00 EDT, Height, 98.6, kg, 04/11/21 15:59:00 EDT, Dry Weight Start Date: 04/14/21 Status: Ordered Metoprolol Succinate ER 25 mg oral tablet, extended release 1 tablet, By Mouth, Daily, # 90 tablet, 2 Refills, [facility] [id number], 159, cm, 12/21/21 15:41:00 EDT,Height, 93.6, kg, 01/06/22 9:12:00 EDT, Dry Weight Start Date: 01/16/22 Status: Ordered nitroglycerin 0.4 mg sublingual tablet 1 tablet = 0.4 mg, Sublingual, Every 5 minutes, PRN as needed for chest pain, not to exceed 3 doses/15 min--if pain persists, seek medical attention, # 100 tablet, 0 Refills, Maintenance, 03/15/21 12:38:00 EDT, Tablet, [facility]/pharmacy #[id number], Partial fill... Start Date: 03/15/21 Status: Ordered rOPINIRole 0.5 mg oral tablet 1 tablet, By Mouth, 4 times a day, # 360 tablet, 1 Refills, [facility] [id number], 159, cm, 11/14/21 9:20:00 EDT, Height, 98, kg, 07/06/21 19:57:00 EST, Dry Weight Start Date: 11/22/21 Status: Ordered torsemide 20 mg oral tablet 2 tablet = 40 mg, By Mouth, Daily, for 90 days, # 180 tablet, 3 Refills, Physician Stop 05/15/23 16:05:00 EDT, 05/20/22 16:05:00 EDT, [facility]/pharmacy #[id number], 157, cm, 05/12/22 13:47:00 EDT, Height, 94.3,kg, 01/19/22 4:25:00 EDT, Dry Weight Start Date: 05/20/22 Stop Date: 05/15/23 Status: Ordered Vitamin B1 100 mg oral tablet 100 mg, 1, tablet, By Mouth, Daily, # 90 tablet, Refills 3, Tot. Refills 3, Acute 05/20/23 16:10:00EDT, 05/20/22 16:10:00 EDT, Route to Pharmacy Electronically, [facility]/pharmacy #[id number], Partial fill uponpatient request if the [...] Confirmed Active Peripheral sensory neuropathy Confirmed Active Severe obesity (BMI 35.0-39.9) with comorbidity Confirmed Active Ulcerative colitis Confirmed Active Vertigo Confirmed Active 1Per chart review meeting GFR criteria 2RT LEG 3BILATERAL KNEES Vital Signs Most recent to oldest [Reference Range]: 1 Height 157 cm (07/10/22 3:50 PM) Weight 89.5 kg (07/10/22 3:50 PM) Body Mass Index [18.5-24.99 kg/m2] 36.31 kg/m2 *>HHI* (07/10/22 3:50 PM) Blood Pressure [90-138/55-84 mm Hg] 130/ 80mm Hg (07/10/22 3:50 PM) Blood pressure sites Arm, left (07/10/22 3:50 PM) Weight Obtained Via Standing scale (07/10/22 3:50 PM) Social History Social History Type Response Smoking Status Never (less than 100 in lifetime) entered on: 06/27/18 Sex Patient Care team information Care Team Personnel Name: Mojgan Lopez RN Position: [facility] RN Member Role: Primary Care Nurse Name: Lisa Carlson RN Position: [facility] RN Member Role: Primary Care Nurse Name: Estrellita Putnam RN Position: [facility] RN Member Role: Primary Care Nurse Name: Marlen Kenny RN Position: [facility] RN Member Role: Primary Care Nurse Name: Toshia Muhammad RN Position: [facility] RN Supv Member Role: Primary Care Nurse Name: Suleman Jones RN Position: [facility] RN Member Role: Primary Care Nurse Name: Kathy Medina RN Position: [facility] RN Member Role: Primary Care Nurse Name: Lesli Mercedes RN Position: [facility] RN Member Role: Primary Care Nurse Name: Marguerite Wang RN Position: [facility] RN Member Role: Primary Care Nurse Name: Ananya Robledo RN Position: [facility] RN Member Role: Primary Care Nurse Name: Mick Tatum MD Position: [facility] Primary Care Physician Member Role: PCP Address: Address: [address] [place] [id number] Name: Svitlana Clark RN Position: [facility] RN Member Role: Primary Care Nurse Name: Yoana Guevara RN Position: [facility] RN Member Role: Primary Care Nurse Name: Pierre Groves RN Position: [facility] RN Member Role: Primary Care Nurse Name: Carmen Murphy RN Position: [facility] RN Member Role: Primary Care Nurse Name: Rylie Ordonez RN Position: [facility] PCO RN Member Role: Primary Care Nurse Name: Marisa Negrete RN Position: [facility] RN Member Role: Primary Care Nurse Name: Aditi Brown RN Position: [facility] RN Member Role: Primary Care Nurse Name: Chana Cazares RN Position: [facility] RN Member Role: Primary Care Nurse Name: Toshia Urbina RN Position: [facility] RN Member Role: Primary Care Nurse Name: Aniyah Sloan RN Position: [facility] SN RN Member Role: Primary Care Nurse Name: Rosemary Ramon RN Position: [facility] OB RN Member Role: Primary Care Nurse Name: Sneha Newton RN Position: [facility] Human Geography Instructor Member Role: Primary Care Nurse Care Team Related Persons Name: CLAUDIA URBINA Address: [address] [place] [address] Name: RALPH SÁNCHEZ Address: [address] [place] [address] Name: DONY CARCAMO Address: [place] [address] [place] [address]
--- OUTSIDE RECORDS SUMMARY | 2024-02-08 01:03 | XMS_ITS | Continuity of Care Document ---
Author Organization [facility] Jose lt Address [address] [place] [address]- Care Team Providers Care Dietary Tech Name Role Phone Rc CORDERO, Mick Clay Primary Care Physician [phone] Encounter [facility] [place] Date(s): 07/21/20 - 08/20/20 [facility] Adult [address] [place] [address]- Allergies, Adverse Reactions, Alerts Substance Reaction Severity [...] Refusal Reason influenza virus vaccine, inactivated 05/17/20 Pipo rded [...] 03/30/20 8:48:00 EDT, [id number], cm, 03/11/20 12:49:00 EDT, Height, 91, kg, 02/28/20 22:14:00 EDT, Dry Weight Start Date: 03/30/20 Stop Date: 03/25/21 Status: Ordered budesonide 3 mg oral delayed release capsule 1 capsule = 3 mg, By Mouth, Daily in AM, # 30 capsule, 0 Refills, Acute 11/25/20 10:36:00 EDT, 07/28/20 10:35:00 EST, Partial fill upon patient request if the prescription is for a schedule II opioiddrug. Start Date: 07/28/20 Stop Date: 11/25/20 Status: Ordered Cosopt ophthalmic solution 1 drops, Eyes, Both, 2 times a day, 0 Refills Start Date: 02/09/09 Status: Ordered diclofenac 1% topical gel 1 application, Topically, 4 times a day, # 100 Gm, 5 Refills, Maintenance, 10/07/19 10:56:00 EDT, Gel, [facility]/pharmacy #[id number], 160, cm, 08/19/19 8:02:00 EST, Height Start Date: 10/07/19 Status: Ordered Eliquis 5 mg oral tablet 1 tablet, By Mouth, 2 times a day, # 180 tablet, 3 Refills, Maintenance, 07/12/20 14:12:00 EST, [id number], 157, cm, 05/07/20 11:34:00 EDT, Height, 91, kg, 02/28/20 22:14:00 EDT, Dry Weight Start Date: 07/12/20 Status: Ordered gabapentin 400 mg oral capsule 400 mg, 1, capsule, By Mouth, 3 times a day, # 270 capsule, Refills 2, Tot. Refills 2, Maintenance,03/30/20 8:48:00 EDT, [id number], cm, 03/11/20 12:49:00 EDT, Height, 91, kg, 02/28/20 22:14:00 EDT, Dry... Start Date: 03/30/20 Stop Date: 12/25/20 Status: Ordered HYDROmorphone 2 mg oral tablet 1 tablet = 2 mg, By Mouth, Every 8 hours, PRN as needed for pain, # 20 tablet, 0 Refills, Maintenance, 07/14/20 8:36:00 EST, [facility], [id number], Partial fill upon patient request, 157, cm, 07/14/20 7:46:00 EST, Height, 91, kg, 02/28/20 22:14:0... Start Date: 07/14/20 Status: Ordered Requip 0.5 mg oral tablet [...]
--- OUTSIDE RECORDS SUMMARY | 2024-02-08 01:03 | XMS_ITS | Continuity of Care Document ---
Author Organization [facility] Gopi Jose lt Address [address] [place] [address]- Care Team Providers Care Bird Raiser Name Role Phone Rc CORDERO, Mick Clay Primary Care Physician Encounter [facility] [place] [place] Date(s): 07/31/22 - 08/30/22 [facility] Adult [address] [place] [address]- Allergies, Adverse Reactions, Alerts Substance Reaction Severity Status amoxicillin 1 Active Benadryl Shaking Active Contrast Dye Active Dust Active egg-containing compound 2 Re solved Other Food Allergy 3 chicken, peppers, onions Resolved Other Environmental Allergy 4 Active Cats Active 1Tolerates ceftriaxone 2Pt states she does [...] Given Parent Or Guardian Refuses 1Result Comment: [id number] 2Location History: DR LOAIZA 3Location History: DR LOAIZA 4Location History: DR LOAIZA 5Location History: DR LOAIZA Medications atorvastatin 40 mg oral tablet 1 tablet, By Mouth, Daily at bedtime, # 90 tablet, 3 Refills, Maintenance, 05/13/22 7:24:00 EDT, [facility], 157, cm, 05/12/22 13:47:00 EDT, Height, 94.3, [...] 5 Refills, Maintenance, 05/13/22 9:34:00 EDT, Gel, [facility]/pharmacy #[id number], 157, cm, 05/12/22 13:47:00 EDT, Height, 94.3, kg, 01/19/22 4:25:00 EDT, Dry Weight Start Date: 05/13/22 Status: Ordered Eliquis 5 mg oral tablet 1 tablet, By Mouth, 2 times a day, # 180 tablet, 3 Refills, Maintenance, 05/27/22 16:57:00 EDT, [facility], 157, cm, 05/12/22 13:47:00 EDT, Height, 94.3, kg, 01/19/22 4:25:00 EDT, Dry Weight Start Date: 05/27/22 Status: Ordered empagliflozin 10 mg oral tablet 1 tablet = 10 mg, By Mouth, Daily in AM, # 90 tablet, 3 Refills, Maintenance, 06/09/22 12:36:00 EST, Tablet, [facility]/pharmacy #[id number], Partial fill upon patient request if the prescription is for a schedule II opioid drug., 157, cm, 05/12/22 13:47:00 EDT, H... Start Date: 06/09/22 Stop Date: 06/04/23 Status: Ordered gabapentin 400 mg oral capsule 2, capsule, By Mouth, 3 times a day, # 180 capsule, Refills 5, Tot. Refills 5, Maintenance, 08/28/22 15:05:00 EST, Route to Pharmacy Electronically, [facility]/pharmacy #[id number], 157, cm, 07/27/22 15:56:00 EST, Height, 94.3, kg, 01/19/22 4:25:00 EDT, Dry Weight Start Date: 08/28/22 Status: Ordered isosorbide mononitrate 60 mg oral tablet, extended release 60 mg, 1, tablet, By Mouth, 2 times a day, # 180 tablet, Refills 3, Tot. Refills 3, Maintenance, 07/10/22 16:07:00 EST, Route to Pharmacy Electronically, [facility]/pharmacy #[id number], Partial fill upon patientrequest if the prescription is for a schedule II op... Start Date: 07/10/22 Status: Ordered latanoprost 0.005% ophthalmic solution See Instructions, INSTILL 1 DROP IN BOTH EYES DAILY BEFORE DINNER, # 2.5 mL, 0 Refills, [facility], 18, INSTILL 1 DROP IN BOTH EYES DAILY BEFORE DINNER, 158, cm, 04/14/21 11:28:00 EDT, Height, 98.6, kg, 04/11/21 15:59:00 EDT, Dry Weight Start Date: 04/14/21 Status: Ordered Metoprolol Succinate ER 25 mg oral tablet, extended release 1 tablet, By Mouth, Daily, # 90 tablet, 2 Refills, [facility], 159, cm, 12/21/21 15:41:00 EDT,Height, 93.6, kg, 01/06/22 9:12:00 EDT, Dry Weight Start Date: 01/16/22 Status: Ordered nitroglycerin 0.4 mg sublingual tablet 1 tablet = 0.4 mg, Sublingual, Every 5 minutes, PRN as needed for chest pain, not to exceed 3 doses/15 min--if pain persists, seek medical attention, # 100 tablet, 0 Refills, Maintenance, 03/15/21 12:38:00 EDT, Tablet, [facility]/pharmacy #[id number], Partial fill... Start Date: 03/15/21 Status: Ordered rOPINIRole 0.5 mg oral tablet 1 tablet, By Mouth, 4 times a day, # 360 tablet, 1 Refills, Maintenance, 07/25/22 9:33:00 EST, [facility], 157, cm, 07/10/22 15:50:00 EST, Height, 94.3, kg, 01/19/22 4:25:00 EDT, Dry Weight Start Date: 07/25/22 Status: Ordered torsemide 20 mg oral tablet 2 tablet = 40 mg, By Mouth, Daily, for 90 days, # 180 tablet, 3 Refills, Physician Stop 07/26/23 8:14:00 EST, 07/31/22 8:14:00 EST, [facility]/pharmacy #[id number], 157, cm, 07/27/22 15:56:00 EST, Height, 94.3, kg, 01/19/22 4:25:00 EDT, Dry Weight Start Date: 07/31/22 Stop Date: 07/26/23 Status: Ordered torsemide 20 mg oral tablet 2 tablet = 40 mg, By Mouth, Daily, for 90 days, # 180 tablet, 3 Refills, Physician Stop 05/15/23 16:05:00 EDT, 05/20/22 16:05:00 EDT, [facility]/pharmacy #[id number], 157, cm, 05/12/22 13:47:00 EDT, Height, 94.3,kg, 01/19/22 4:25:00 EDT, Dry Weight Start Date: 05/20/22 Stop Date: 05/15/23 Status: Ordered Vitamin B1 100 mg oral tablet 100 mg, 1, tablet, By Mouth, Daily, # 90 tablet, Refills 3, Tot. Refills 3, Acute 05/20/23 16:10:00EDT, 05/20/22 16:10:00 EDT, Route to Pharmacy Electronically, [facility]/pharmacy #[id number], Partial fill uponpatient request if [...] Team Personnel Name: Mojgan Lopez RN Position: [facility] RN Member Role: Primary Care Nurse Name: Lisa Carlson RN Position: [facility] RN Member Role: Primary Care Nurse Name: Estrellita Putnam RN Position: [facility] RN Member Role: Primary Care Nurse Name: Marlen Kenny RN Position: [facility] RN Member Role: Primary Care Nurse Name: Toshia Muhammad RN Position: [facility] RN Martha Member Role: Primary Care Nurse Name: Suleman Jones RN Position: [facility] RN Member Role: Primary Care Nurse Name: Adam RNKathy Position: [facility] RN Member Role: Primary Care Nurse Name: Lesli Mercedes RN Position: [facility] RN Member Role: Primary Care Nurse Name: Marguerite Wang RN Position: [facility] RN Member Role: Primary Care Nurse Name: Ananya Robledo RN Position: [facility] RN Member Role: Primary Care Nurse Name: Mick Tatum MD Position: [facility] Primary Care Physician Member Role: PCP Address: Address: [address] [place] [id number] Name: Svitlana Clark RN Position: [facility] RN Member Role: Primary Care Nurse Name: Yoana Guevara RN Position: [facility] RN Member Role: Primary Care Nurse Name: Pierre Groves RN Position: [facility] RN Member Role: Primary Care Nurse Name: Carmen Murphy RN Position: [facility] RN Member Role: Primary Care Nurse Name: Rylie Ordonez RN Position: [facility] PCO RN Member Role: Primary Care Nurse Name: Marisa Negrete RN Position: [facility] RN Member Role: Primary Care Nurse Name: Aditi Brown RN Position: [facility] RN Member Role: Primary Care Nurse Name: Chana Cazares RN Position: [facility] RN Member Role: Primary Care Nurse Name: Toshia Urbina RN Position: [facility] RN Member Role: Primary Care Nurse Name: Aniyah Sloan RN Position: [facility] SN RN Member Role: Primary Care Nurse Name: Rosemary Ramon RN Position: [facility] OB RN Member Role: Primary Care Nurse Name: Sneha Newton RN Position: [facility] Image Archivist Member Role: Primary Care Nurse Care Team Related Persons Name: CLAUDIA URBINA Address: home [address] [place], [place] Name: RALPH SÁNCHEZ Address: [address] [place], [place] Name: DONY CARCAMO Address: home [address] [place], [place]
--- OUTSIDE RECORDS SUMMARY | 2024-02-08 01:03 | XMS_ITS | Continuity of Care Document ---
Author Organization [facility] Gopi Jose lt Address [address] [place] [address]- Care Team Providers Care Datastage Consultant Name Role Phone Rc CORDERO, Mick Clay Primary Care Physician En[place] [facility] [place] Date(s): 07/01/21 - 07/31/21 [facility] Adult [address] [place] [address]- Allergies, Adverse Reactions, Alerts Substance Reaction Severity [...] 07/09/21 10:04:00 EST, Route to Pharmacy Electronically, [facility]/pharmacy #[id number], Partial fill upon patient request if the prescription is for a schedule II opioid .. Start Date: 07/09/21 Stop Date: 07/04/22 Status: Ordered Cosopt 2.23%-0.68% ophthalmic solution 1 drops, Eyes, Both, 2 times a day, # 10 mL, 0 Refills, Maintenance, 03/23/21 9:41:00 EDT, Solution, [facility]/pharmacy #[id number], Partial fill upon patient request if the prescription is for a schedule II opioid drug., 1 drops Eyes, Both 2 times a day, 159, cm... Start Date: 03/23/21 Status: Ordered [facility] ASPIRIN EC 81 MG TABLET [facility] ASPIRIN EC 81 MG TABLET, 1, tablet, By Mouth, Daily, # 30 tablet, 0 Refills, 158, cm, 04/14/21 11:28:00 EDT, Height, 98.6, kg, 04/11/21 15:59:00 EDT, Dry Weight Start Date: 04/22/21 Status: Ordered diclofenac 1% topical gel 1 application, Topically, 4 times a day, # 100 Gm, 5 Refills, Maintenance, 10/07/19 10:56:00 EDT, Gel, [facility]/pharmacy #[id number], 160, cm, 08/19/19 8:02:00 EST, Height Start Date: 10/07/19 Status: Ordered Eliquis 5 mg oral tablet 1 tablet, By Mouth, 2 times a day, # 180 tablet, 3 Refills, [id number], 158, cm, 06/09/21 10:14:00 EST, Height, 98.6, kg, 04/11/21 15:59:00 EDT, Dry Weight Start Date: 06/17/21 Status: Ordered empagliflozin 10 mg oral tablet 1 tablet = 10 mg, By Mouth, Daily in AM, # 90 tablet, 3 Refills, Maintenance, 06/09/21 12:06:00 EST, Tablet, [facility]/pharmacy #[id number], Partial fill upon patient [...] 07/31/21 10:21:00 EST, Route to Pharmacy Electronically, [facility]/pharmacy #[id number], 159, cm, 07/25/21 11:20:00 EST, Height, 98, kg, 07/06/21 19:57:00 EST, Dry Weight Start Date: 07/31/21 Status: Ordered HYDROmorphone 2 mg oral tablet 1 tablet = 2 mg, By Mouth, Every 12 hours, PRN Pain , Severe, Dx: Severe lumbar degen disc disease,# 12 tablet, 0 Refills, Acute 08/08/21 16:30:00 EST, 07/25/21 16:22:00 EST, [facility]/pharmacy #[id number], Partial fill upon patient request if the prescription i... Start Date: 07/25/21 Stop Date: 08/08/21 Status: Ordered isosorbide mononitrate 30 mg oral tablet, extended release 1 tablet, By Mouth, Daily, for 90 days, # 90 tablet, 3 Refills, Physician Stop 04/20/22 16:32:00 EDT, 04/25/21 16:32:00 EDT, [facility]/pharmacy #[id number], 158, cm, 04/25/21 14:49:00 EDT, Height, 98.6, kg, 04/11/21 15:59:00 EDT, Dry Weight Start Date: 04/25/21 Stop Date: 04/20/22 Status: Ordered latanoprost 0.005% ophthalmic solution See Instructions, INSTILL 1 DROP IN BOTH EYES DAILY BEFORE DINNER, # 2.5 mL, 0 Refills, [facility], 18, INSTILL 1 DROP IN BOTH EYES DAILY BEFORE DINNER, 158, cm, 04/14/21 11:28:00 EDT, Height, 98.6, kg, 04/11/21 15:59:00 EDT, Dry Weight Start Date: 04/14/21 Status: Ordered Lipitor 40 mg oral tablet 1 tablet = 40 mg, By Mouth, Daily, # 30 tablet, 5 Refills, Maintenance, 04/28/21 6:50:00 EDT, Tablet, [facility]/pharmacy #[id number], Partial fill upon patient [...] 12/06/20 13:03:00 EDT, Route to Pharmacy Electronically, [facility]/pharmacy #[id number], Partial fill upon patient [...] 0 Refills, Maintenance, 03/15/21 12:38:00 EDT, Tablet, [facility]/pharmacy #[id number], Partial fill... Start Date: [...] 05/14/21 12:51:00 EDT, Route to Pharmacy Electronically, [facility]/pharmacy #[id number], Partial fill upon patient request if the prescription is... Start Date: 05/14/21 Stop Date: 11/10/21 Status: Ordered torsemide 20 mg oral tablet 1 tablet = 20 mg, By Mouth, Daily, # 30 tablet, 5 Refills, Maintenance, 05/10/21 4:19:00 EDT, [facility]t, [id number], Partial fill upon patient request [...]
--- OUTSIDE RECORDS SUMMARY | 2024-02-08 01:03 | XMS_ITS | Continuity of Care Document ---
Author Organization [facility] [place] Jose lt Address [address] [place] [id number]- Care Team Providers Care Picking Table Worker Name Role Phone Mick Tatum MD Primary Care Physician Encounter [facility] [place] Date(s): 08/30/20 - 09/06/20 [facility] [place] Adult [address] [place] [address]- Attending Physician: Mick Tatum MD Allergies, Adverse Reactions, Alerts Substance Reaction Severity Status amoxicillin 1 Active Cats Active Contrast Dye Active Dust Active Other Environmental Allergy 2 Active Other Food Allergy 3 chicken, peppers, onions Resolved egg-containing compound 4 Re solved 1Tolerates ceftriaxone [...] Refusal Reason SARS-CoV-2 (COVID-19) mRNA BNT-162b2 vac 09/02/20 Given [...] 03/30/20 8:48:00 EDT, Route to Pharmacy Electronically, [facility]/pharmacy #[id number], 157, cm, 03/11/20 12:49:00 EDT, Height, [...] Acute 02/27/21 10:03:00 EDT, 11/25/20 10:36:00 EDT, [facility]/pharmacy #[id number], Partial fill upon patient request [...] 5 Refills, Maintenance, 10/07/19 10:56:00 EDT, Gel, [facility]/pharmacy #[id number], 160, cm, 08/19/19 8:02:00 EST, Height Start Date: 10/07/19 Status: Ordered Eliquis 5 mg oral tablet 1 tablet, By Mouth, 2 times a day, # 180 tablet, 3 Refills, Maintenance, 07/12/20 14:12:00 EST, [id number], 157, cm, 05/07/20 11:34:00 EDT, Height, 91, kg, 02/28/20 22:14:00 EDT, Dry Weight Start Date: 07/12/20 Status: Ordered gabapentin 400 mg oral capsule 400 mg, 1, capsule, By Mouth, 3 times a day, # 270 capsule, Refills 2, Tot. Refills 2, Maintenance,03/30/20 8:48:00 EDT, Route to Pharmacy Electronically, [facility]/pharmacy #[id number], 157, cm, 03/11/20 12:49:00 EDT, Height, 91, kg, 02/28/20 22:14:00 EDT, Dry... Start Date: 03/30/20 Stop Date: 12/25/20 Status: Ordered HYDROmorphone 2 mg oral tablet 1 tablet = 2 mg, By Mouth, Daily at bedtime, PRN as needed for pain, # 28 tablet, 0 Refills, Maintenance, 08/30/20 10:02:00 EST, Tablet, [facility]/pharmacy #[id number], Partial fill upon patient request, 157, cm, 08/30/20 7:27:00 EST, Height, 91, kg, 02/28/20 22:... Start Date: 08/30/20 Status: Ordered Requip 0.5 mg oral tablet [...] oldest [Reference Range]: 1 Height 157 cm (08/30/20 7:27 AM) Social History Social History Type Response Smoking Status Never (less than 100 in lifetime) entered on: 06/27/18 Sex
--- OUTSIDE RECORDS SUMMARY | 2024-02-08 01:03 | XMS_ITS | Continuity of Care Document ---
Author Organization [facility] Address [address] [place] [address]- Care Team Providers Care Hourly Associate Name Role Phone Mick Tatum MD Primary Care Physician [place] [facility] [place] 10[place]26/22 [facility] [address] [place] [id number]- [place] Allergies, Adverse Reactions, Alerts Substance Reaction [...] Given Parent Or Guardian Refuses 1Result Comment: [id number] 2Location History: DR LOAIZA 3Location History: DR LOAIZA 4Location History: DR LOAIZA 5Location History: DR LOAIZA Medications atorvastatin 40 mg oral tablet 1 tablet, By Mouth, Daily at bedtime, # 90 tablet, 3 Refills, Maintenance, 05/13/22 7:24:00 EDT, [id number], 157, cm, 05/12/22 13:47:00 EDT, Height, 94.3, [...] 6:58:00 EDT, 01/18/22 6:58:00 EDT, CR Capsule, [facility]/pharmacy #[id number], Partial fill upon patient [...] 3 Refills, Maintenance, 05/27/22 16:57:00 EDT, [facility], 157, cm, 05/12/22 13:47:00 EDT, Height, 94.3, kg, 01/19/22 4:25:00 EDT, Dry Weight Start Date: 05/27/22 Status: Ordered empagliflozin 10 mg oral tablet 1 tablet = 10 mg, By Mouth, Daily in AM, # 90 tablet, 3 Refills, Maintenance, 06/09/22 12:36:00 EST, Tablet, [facility]/pharmacy #[id number], Partial fill upon patient request if the prescription is for a schedule II opioid drug., 157, cm, 05/12/22 13:47:00 EDT, H... Start Date: 06/09/22 Stop Date: 06/04/23 Status: Ordered gabapentin 400 mg oral capsule 2, capsule, By Mouth, 3 times a day, # 180 capsule, Refills 5, Tot. Refills 5, Maintenance, 08/28/22 15:05:00 EST, Route to Pharmacy Electronically, [facility]/pharmacy #[id number], 157, cm, 07/27/22 15:56:00 EST, Height, 94.3, kg, 01/19/22 4:25:00 EDT, Dry Weight Start Date: 08/28/22 Status: Ordered HYDROmorphone 2 mg oral tablet 1 tablet = 2 mg, By Mouth, Every 6 hours, PRN Pain , Severe, # 20 tablet, 0 Refills, Acute 11/13/2311:15:00 EDT, 10/12/22 12:15:00 EDT, [facility]/pharmacy #[id number], Partial fill upon patient request if the prescription is for a schedule II opioid drug., 157,... Start Date: 10/12/22 Stop Date: 11/12/22 Status: Ordered isosorbide mononitrate 60 mg oral tablet, extended release 60 mg, 1, tablet, By Mouth, 2 times a day, # 180 tablet, Refills 3, Tot. Refills 3, Maintenance, 07/10/22 16:07:00 EST, [id number] Partial fill upon patientrequest if the prescription is for a schedule II op... Start Date: 07/10/22 Status: Ordered latanoprost 0.005% ophthalmic solution See Instructions, INSTILL 1 DROP IN BOTH EYES DAILY BEFORE DINNER, # 2.5 mL, 0 Refills, [facility], 18, INSTILL 1 DROP IN BOTH EYES DAILY BEFORE DINNER, 158, cm, 04/14/21 11:28:00 EDT, Height, 98.6, kg, 04/11/21 15:59:00 EDT, Dry Weight Start Date: 04/14/21 Status: Ordered Metoprolol Succinate ER 25 mg oral tablet, extended release 1 tablet, By Mouth, Daily, # 90 tablet, 3 Refills, 09/30/22 20:06:00 EST, [id number], cm, 09/15/22 11:19:00 EST, Height, 94.3, kg, 01/19/22 4:25:00 EDT, Dry Weight Start Date: 09/30/22 Status: Ordered nitroglycerin 0.4 mg sublingual tablet 1 tablet = 0.4 mg, Sublingual, Every 5 minutes, PRN as needed for chest pain, not to exceed 3 doses/15 min--if pain persists, seek medical attention, # 100 tablet, 0 Refills, Maintenance, 03/15/21 12:38:00 EDT, Tablet, [facility]/pharmacy #[id number], Partial fill... Start Date: 03/15/21 Status: Ordered rOPINIRole 0.5 mg oral tablet 1 tablet, By Mouth, 4 times a day, # 360 tablet, 1 Refills, Maintenance, 07/25/22 9:33:00 EST, [id number], 157, cm, 07/10/22 15:50:00 EST, Height, 94.3, kg, 01/19/22 4:25:00 EDT, Dry Weight Start Date: 07/25/22 Status: Ordered spironolactone 25 mg oral tablet 25 mg, 1, tablet, By Mouth, Daily, # 90 tablet, Refills 3, Tot. Refills 3, Maintenance, 10/09/22 15:42:00 EDT, Route to Pharmacy Electronically, [facility]/pharmacy #[id number], Partial fill upon patient [...] Stop 05/15/23 16:05:00 EDT, 05/20/22 16:05:00 EDT, [facility]/pharmacy #[id number], 157, cm, 05/12/22 13:47:00 EDT, Height, 94.3,kg, 01/19/22 4:25:00 EDT, Dry Weight Start Date: 05/20/22 Stop Date: 05/15/23 Status: Ordered Vitamin B1 100 mg oral tablet 100 mg, 1, tablet, By Mouth, Daily, # 90 tablet, Refills 3, Tot. Refills 3, Acute 05/20/23 16:10:00EDT, 05/20/22 16:10:00 EDT, Route to Pharmacy Electronically, [facility]/pharmacy #[id number], Partial fill uponpatient request [...] Team Personnel Name: Lisa Carlson RN Position: [facility] RN Member Role: Primary Care Nurse Name: Estrellita Putnam RN Position: [facility] [...] Care Nurse Name: Lesli Mercedes RN Position: [facility] RN Member Role: Primary Care Nurse Name: Marguerite Wang RN Position: [facility] RN Member Role: Primary Care Nurse Name: Mick Tatum MD Position: [facility] Primary Care Physician Member Role: PCP Address: Address: [address] [place] [id number] Name: Svitlana Clark RN Position: [facility]. [...] RN Position: [facility] [place] RN Member Role: Primary Care Nurse Name: Aditi Brown RN Position: [facility] RN Member Role: Primary Care Nurse Name: Chana Cazraes RN Position: [facility] [...] Care Nurse Name: Sneha Newton RN Position: [facility] Nurse Member Role: Primary Care Nurse Care Team Related Persons Name: CLAUDIA URBINA Address: [address] [place] [address] Name: RALPH SÁNCHEZ Address: home [address] [place] [address] Name: DONY CARCAMO Address: [address] [place] [address]
--- OUTSIDE RECORDS SUMMARY | 2024-02-08 01:04 | XMS_ITS | Continuity of Care Document ---
Author Organization [facility] Jose lt Address [address] [place] [address]- Care Team Providers Care Curtain Cutter Hand Name Role Phone Rc CORDERO, Mick Clay Primary Care Physician [place] [facility] [place]): 05/31/21 - 06/30/21 [facility] [address] [place] [address]- Allergies, Adverse Reactions, Alerts Substance Reaction Severity [...] LOAIZA Medications amLODIPine 5 mg oral tablet 1 tablet, By Mouth, Daily, # 90 tablet, 1 Refills, [facility], 159, cm, 03/23/21 9:06:00 EDT, Height, 100.2, kg, 03/15/21 4:17:00 EDT, Dry Weight Start Date: 03/25/21 Status: Ordered aspirin 81 mg oral delayed release tablet 81 mg, 1, tablet, By Mouth, Daily, for 30 days, # 30 tablet, Refills 5, Tot. Refills 5, Hard Stop 10/24/21 13:28:00 EDT, 04/27/21 13:28:00 EDT, Route to Pharmacy Electronically, [facility]/pharmacy #[id number], Partial fill upon patient request if the prescription... Start Date: 04/27/21 Stop Date: 10/24/21 Status: Ordered aspirin 81 mg oral delayed release tablet 81 mg, 1, tablet, By Mouth, Daily, # 30 tablet, Refills 5, Tot. Refills 5, Maintenance, 10/24/21 13:28:00 EDT, Route to Pharmacy Electronically, [facility]/pharmacy #[id number], Partial fill upon patient request if the prescription is for a schedule II opioid drug... Start Date: 10/24/21 Stop Date: 04/22/22 Status: Ordered atorvastatin 40 mg oral tablet 1 tablet, By Mouth, Daily at bedtime, for 90 days, # 90 tablet, 3 Refills, Physician Stop 04/20/22 16:32:00 EDT, 04/25/21 16:32:00 EDT, [facility]/pharmacy #[id number], 158, cm, 04/25/21 14:49:00 [...] Refills, Maintenance, 03/23/21 9:41:00 EDT, Solution, [facility]/pharmacy #[id number], Partial fill upon patient request if the prescription is for a schedule II opioid drug., 1 drops Eyes, Both 2 times a day, 159, cm... Start Date: 03/23/21 Status: Ordered [facility] ASPIRIN EC 81 MG TABLET [facility] ASPIRIN EC 81 MG TABLET, 1, [...] a day, # 180 tablet, 3 Refills, [facility], 158, cm, 06/09/21 10:14:00 EST, Height, 98.6, kg, 04/11/21 15:59:00 EDT, Dry Weight Start Date: 06/17/21 Status: Ordered empagliflozin 10 mg oral tablet 1 tablet = 10 mg, By Mouth, Daily in AM, # 90 tablet, 3 Refills, Maintenance, 06/09/21 12:06:00 EST, Tablet, [facility]/pharmacy #[id number], Partial fill upon patient request if the prescription is for a schedule II opioid drug., 158, cm, 06/09/21 10:14:00 EST, H... Start Date: 06/09/21 Stop Date: 06/04/22 Status: Ordered gabapentin 400 mg oral capsule 2, capsule, By Mouth, 3 times a day, # 180 capsule, Refills 0, Route to Pharmacy Electronically, [facility], 158, cm, 06/09/21 10:14:00 EST, Height, 98.6, kg, 04/11/21 15:59:00 EDT, Dry Weight Start Date: 06/23/21 Status: Ordered HYDROmorphone 2 mg oral tablet 1 tablet = 2 mg, By Mouth, Every 12 hours, PRN Pain , Severe, Dx: Severe lumbar degen disc disease,# 12 tablet, 0 Refills, Acute 07/17/21 8:24:00 EST, 06/17/21 8:24:00 EST, [facility]/pharmacy #[id number], Partial fill upon patient request if the prescription is... Start Date: 06/17/21 Stop Date: 07/17/21 Status: Ordered HYDROmorphone 2 mg oral tablet 1 tablet = 2 mg, By Mouth, Every 12 hours, PRN Pain , Severe, Dx: Severe lumbar degen disc disease,# 12 tablet, 0 Refills, Acute 07/29/21 16:56:00 EST, 07/17/21 8:24:00 EST, [facility]/pharmacy #[id number], Partial fill upon patient request if the prescription is... Start Date: 07/17/21 Stop Date: 07/29/21 Status: Ordered isosorbide mononitrate 30 mg oral tablet, extended release 1 tablet, By Mouth, Daily, for 90 days, # 90 tablet, 3 Refills, Physician Stop 04/20/22 16:32:00 EDT, 04/25/21 16:32:00 EDT, [facility]/pharmacy #[id number], 158, cm, 04/25/21 14:49:00 EDT, Height, 98.6, kg, 04/11/21 15:59:00 EDT, Dry Weight Start Date: 04/25/21 Stop Date: 04/20/22 Status: Ordered latanoprost 0.005% ophthalmic solution See Instructions, INSTILL 1 DROP IN BOTH EYES DAILY BEFORE DINNER, # 2.5 mL, 0 Refills, [facility] 289[facility], 18, INSTILL 1 DROP IN BOTH EYES DAILY BEFORE DINNER, 158, cm, 04/14/21 11:28:00 EDT, Height, 98.6, kg, 04/11/21 15:59:00 EDT, Dry Weight Start Date: 04/14/21 Status: Ordered Lipitor 40 mg oral tablet 1 tablet = 40 mg, By Mouth, Daily, # 30 tablet, 5 Refills, Maintenance, 04/28/21 6:50:00 EDT, Tablet, [facility]/pharmacy #[id number], Partial [...] 13:03:00 EDT, Route to Pharmacy Electronically, [facility]/pharmacy #[id number], Partial fill upon patient request if the prescription is for a schedule II opioid drug... Start Date: 12/06/20 Stop Date: 06/04/21 Status: Ordered Metoprolol Succinate ER 25 mg oral tablet, extended release 1 tablet, By Mouth, Daily, # 90 tablet, 2 Refills, [facility] 6[facility], 158, cm, 04/25/21 14:49:00 EDT,Height, 98.6, kg, 04/11/21 15:59:00 EDT, Dry Weight Start Date: 06/01/21 Status: Ordered nitroglycerin 0.4 mg sublingual tablet 1 tablet = 0.4 mg, Sublingual, Every 5 minutes, PRN as needed for chest pain, not to exceed 3 doses/15 min--if pain persists, seek medical attention, # 100 tablet, 0 Refills, Maintenance, 03/15/21 12:38:00 EDT, Tablet, [facility]/pharmacy #[id number], Partial fill... Start Date: [...] 05/14/21 12:51:00 EDT, Route to Pharmacy Electronically, [facility]/pharmacy #[id number], Partial fill upon patient request if the prescription is... Start Date: 05/14/21 Stop Date: 11/10/21 Status: Ordered torsemide 20 mg oral tablet 1 tablet = 20 mg, By Mouth, Daily, # 30 tablet, 5 Refills, Maintenance, 05/10/21 4:19:00 EDT, Tablet, [facility]/pharmacy #[id number], Partial fill upon patient request if the prescription is for a schedule II opioid drug., 158, cm, 04/25/21 14:49:00 EDT, Height,... Start Date: 05/10/21 Status: Ordered Vitamin D2 50,000 intl units [...]
--- OUTSIDE RECORDS SUMMARY | 2024-02-08 01:04 | XMS_ITS | Continuity of Care Document ---
Author Organization [facility] Address [address] [place] [id number]- Care Team Providers Care Document Manager Name Role Phone Ignacio Parish MD Primary Care Physician Encounter [facility] [place] Date(s): 07/24/19 - 10/15/[address] [address]- [facility] Discharge Disposition: A-D/C Home Attending Physician: Ignacio Parish MD Admitting Physician: Ignacio Parish MD Referring Physician: Rosey Pina Allergies, Adverse Reactions, Alerts Substance Reaction Severity [...] 5 Refills, Maintenance, 10/07/19 10:56:00 EDT, Gel, [facility]/pharmacy #[id number], 160, cm, 08/19/19 8:02:00 EST, Height Start Date: 10/07/19 Status: Ordered Eliquis 5 mg oral tablet 1 tablet, By Mouth, 2 times a day, # 180 tablet, Refills 3 Tot. Refills 3, [facility]/pharmacy #[id number] Start Date: 06/17/19 Status: Ordered ferrous sulfate 325 mg oral enteric coated tablet 325 mg, 1, tablet, By Mouth, Daily, # 30 tablet, Refills 0, Maintenance, 01/13/19 10:24:03 EDT Start Date: 01/13/19 Status: Ordered Flonase 50 mcg/inh nasal spray 2 sprays, Nares, Both, Daily, # 16 Gm, 0 Refills, Maintenance, 10/07/19 14:19:00 EDT, [facility]/pharmacy #[id number], 2 sprays Nares, Both Daily, 160, cm, 08/19/19 8:02:00 EST, Height Start Date: 10/07/19 Status: Ordered gabapentin 300 mg oral capsule 300 mg, 1, capsule, By Mouth, 3 times a day, # 90 capsule, Refills 2, Tot. Refills 2, Maintenance, 03/20/19 12:07:35 EDT, Route to Pharmacy Electronically, [id number], [facility]/pharmacy #[id number] Start Date: 03/20/19 Status: Ordered [...] capsule, 0 Refills, Maintenance, 10/07/19 14:22:00 EDT, [facility]/pharmacy #[id number], 160, cm, 08/19/19 8:02:00 EST, Height Start Date: 10/07/19 Status: Ordered predniSONE 20 mg oral tablet 2 tablet = 40 mg, By Mouth, Daily, # 14 tablet, 0 Refills, Maintenance, 10/15/19 11:45:00 EDT, [facility]/pharmacy #[id number], 160, cm, 08/19/19 8:02:00 EST, Height Start Date: 10/15/19 Status: Ordered Requip 0.5 mg oral tablet [...]
--- OUTSIDE RECORDS SUMMARY | 2024-02-08 01:04 | XMS_ITS | Continuity of Care Document ---
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 She eats eggs every day and has never had a reaction to a shot 3trees, roses 4Pt states she eats chicken every day. Onions make her a little itchy, I will re-enter the onion allergy Immunizations Given and Recorded Vaccine Date Status [...] 07/09/21 10:04:00 EST, Route to Pharmacy Electronically, [facility]/pharmacy #[id number], Partial fill upon patient request if the prescription is for a schedule II opioid . Start Date: 07/09/21 Stop Date: 07/04/22 Status: Ordered Cosopt 2.23%-0.68% ophthalmic solution 1 drops, Eyes, Both, 2 times a day, # 10 mL, 0 Refills, Maintenance, 03/23/21 9:41:00 EDT, Solution, [facility]/pharmacy #[id number], Partial fill upon patient request if the prescription is for a schedule II opioid drug., 1 drops Eyes, Both 2 times a day, 159, cm... Start Date: 03/23/21 Status: Ordered [facility] ASPIRIN EC 81 MG TABLET [facility] ASPIRIN EC 81 MG TABLET, 1, tablet, By Mouth, Daily, # 30 tablet, 0 Refills, 158, cm, 04/14/21 11:28:00 EDT, Height, 98.6, kg, 04/11/21 15:59:00 EDT, Dry Weight Start Date: 04/22/21 Status: Ordered diclofenac 1% topical gel 1 application, Topically, 4 times a day, # 100 Gm, 5 Refills, Maintenance, 10/07/19 10:56:00 EDT, Gel, [facility]/pharmacy #[id number], 160, cm, 08/19/19 8:02:00 EST, Height Start Date: 10/07/19 Status: Ordered Eliquis 5 mg oral tablet 1 tablet, By Mouth, 2 times a day, # 180 tablet, 3 Refills, [facility] [id number], 158, cm, 06/09/21 10:14:00 EST, Height, 98.6, kg, 04/11/21 15:59:00 EDT, Dry Weight Start Date: 06/17/21 Status: Ordered empagliflozin 10 mg oral tablet 1 tablet = 10 mg, By Mouth, Daily in AM, # 90 tablet, 3 Refills, Maintenance, 06/09/21 12:06:00 EST, Tablet, [facility]/pharmacy #[id number], Partial fill upon patient [...] 07/31/21 10:21:00 EST, Route to Pharmacy Electronically, [facility]/pharmacy #[id number], 159, cm, 07/25/21 11:20:00 EST, Height, 98, kg, 07/06/21 19:57:00 EST, Dry Weight Start Date: 07/31/21 Status: Ordered isosorbide mononitrate 30 mg oral tablet, extended release 1 tablet, By Mouth, Daily, for 90 days, # 90 tablet, 3 Refills, Physician Stop 04/20/22 16:32:00 EDT, 04/25/21 16:32:00 EDT, [facility]/pharmacy #[id number], 158, cm, 04/25/21 14:49:00 EDT, Height, 98.6, kg, 04/11/21 15:59:00 EDT, Dry Weight Start Date: 04/25/21 Stop Date: 04/20/22 Status: Ordered Jardiance 10 mg oral tablet 1 tablet = 10 mg, By Mouth, Daily in AM, # 30 tablet, 0 Refills, Maintenance, 10/13/21 10:37:00 EDT, Tablet, Partial fill upon patient request if the prescription is for a schedule II opioid drug. Start Date: 10/13/21 Status: Ordered latanoprost 0.005% ophthalmic solution See Instructions, INSTILL 1 DROP IN BOTH EYES DAILY BEFORE DINNER, # 2.5 mL, 0 Refills, [facility] 40308, 18, INSTILL 1 DROP IN BOTH EYES DAILY BEFORE DINNER, 158, cm, 04/14/21 11:28:00 EDT, Height, 98.6, kg, 04/11/21 15:59:00 EDT, Dry Weight Start Date: 04/14/21 Status: Ordered Lipitor 40 mg oral tablet 1 tablet = 40 mg, By Mouth, Daily, # 30 tablet, 5 Refills, Maintenance, 04/28/21 6:50:00 EDT, Tablet, [facility]/pharmacy #[id number], Partial fill upon patient [...] 12/06/20 13:03:00 EDT, Route to Pharmacy Electronically, [facility]/pharmacy #[id number], Partial fill upon patient [...] 0 Refills, Maintenance, 03/15/21 12:38:00 EDT, Tablet, [id number], [facility] fill... Start Date: 03/15/21 Status: [...] 05/14/21 12:51:00 EDT, [facility] to [facility], [id number], Partial fill upon patient request [...] recent to oldest [Reference Range]: 1 2 Height 159 cm (10/20/21 2:52 PM) 159 cm (10/13/21 10:19 AM) Weight 94.9 kg (10/20/21 2:52 PM) Social History Social History Type Response Smoking Status Never (less than 100 in lifetime) entered on: 06/27/18 Sex
--- OUTSIDE RECORDS SUMMARY | 2024-02-08 01:04 | XMS_ITS | Continuity of Care Document ---
Author Organization [facility] Gopi Jose lt Address [address] [place] [id number]- Care Team Providers Care Decorating Equipment Setter Name Role Phone Mick Tatum MD Primary Care Physician [phone] [place] [facility] [place] 11/12/21 [facility] [place] Adult [address] [place] [address]- Attending Physician: Admtr, Julia Admitting Physician: Admtr, Julia Referring Physician: Admtr, Ar8 Allergies, Adverse Reactions, Alerts Substance Reaction Severity Status amoxicillin 1 Active Cats Active Other Environmental Allergy 2 Active Contrast Dye Active Dust Active egg-containing compound 3 Re solved Other Food Allergy 4 chicken, peppers, onions Resolved 1Tolerates ceftriaxone 2trees, roses 3Pt states she does not know why this is in there. She eats eggs every day and has never had a reaction to a shot 4Pt states she eats chicken every day. [...] vac 09/02/20 Given pneumococcal 23-valent vaccine 1 1/1/12 Recorded pneumococcal 13-valent vaccine 2 07/23/10 Recorded [...] 07/09/21 10:04:00 EST, Route to Pharmacy Electronically, [facility]/pharmacy #[id number], Partial fill upon patient request if the prescription is for a schedule II opioid . Start Date: 07/09/21 Stop Date: 07/04/22 Status: Ordered Cosopt 2.23%-0.68% ophthalmic solution 1 drops, Eyes, Both, 2 times a day, # 10 mL, 0 Refills, Maintenance, 03/23/21 9:41:00 EDT, Solution, [facility]/pharmacy #[id number], Partial fill upon patient request if the prescription is for a schedule II opioid drug., 1 drops Eyes, Both 2 times a day, 159, cm... Start Date: 03/23/21 Status: Ordered [facility] ASPIRIN EC 81 MG TABLET [facility] ASPIRIN EC 81 MG TABLET, 1, tablet, By Mouth, Daily, # 30 tablet, 0 Refills, 158, cm, 04/14/21 11:28:00 EDT, Height, 98.6, kg, 04/11/21 15:59:00 EDT, Dry Weight Start Date: 04/22/21 Status: Ordered diclofenac 1% topical gel 1 application, Topically, 4 times a day, # 100 Gm, 5 Refills, Maintenance, 10/07/19 10:56:00 EDT, Gel, [facility]/pharmacy #[id number], 160, cm, 08/19/19 8:02:00 EST, Height Start Date: 10/07/19 Status: Ordered Eliquis 5 mg oral tablet 1 tablet, By Mouth, 2 times a day, # 180 tablet, 3 Refills, [facility], 158, cm, 06/09/21 10:14:00 EST, Height, 98.6, kg, 04/11/21 15:59:00 EDT, Dry Weight Start Date: 06/17/21 Status: Ordered empagliflozin 10 mg oral tablet 1 tablet = 10 mg, By Mouth, Daily in AM, # 90 tablet, 3 Refills, Maintenance, 06/09/21 12:06:00 EST, Tablet, [facility]/pharmacy #[id number], Partial fill upon patient request [...] 07/31/21 10:21:00 EST, Route to Pharmacy Electronically, [facility]/pharmacy #[id number], 159, cm, 07/25/21 11:20:00 EST, Height, 98, kg, 07/06/21 19:57:00 EST, Dry Weight Start Date: 07/31/21 Status: Ordered isosorbide mononitrate 30 mg oral tablet, extended release 1 tablet, By Mouth, Daily, for 90 days, # 90 tablet, 3 Refills, Physician Stop 04/20/22 16:32:00 EDT, 04/25/21 16:32:00 EDT, [facility]/pharmacy #[id number], 158, cm, 04/25/21 14:49:00 EDT, Height, [...] BEFORE DINNER, # 2.5 mL, 0 Refills, [facility] 06194, 18, INSTILL 1 DROP IN BOTH EYES DAILY BEFORE DINNER, 158, cm, 04/14/21 11:28:00 EDT, Height, 98.6, kg, 04/11/21 15:59:00 EDT, Dry Weight Start Date: 04/14/21 Status: Ordered Lipitor 40 mg oral tablet 1 tablet = 40 mg, By Mouth, Daily, # 30 tablet, 5 Refills, Maintenance, 04/28/21 6:50:00 EDT, Tablet, [facility]/pharmacy #[id number], Partial fill upon patient request [...] 12/06/20 13:03:00 EDT, [id number] fill upon patient request if [...] 0 Refills, Maintenance, 03/15/21 12:38:00 EDT, [id number]... Start Date: 03/15/21 Status: Ordered rOPINIRole 0.5 mg oral tablet 1 tablet = 0.5 mg, By Mouth, 4 times a day, # 120 tablet, 3 Refills, Maintenance, 11/10/21 18:04:00EDT, Tablet, [id number] Partial fill upon patient request if the prescription is for a schedule II opioid drug., 159, cm, 11/10/21 11:09:00 ED... Start Date: 11/10/21 Status: Ordered torsemide 20 mg oral tablet 1 tablet, By Mouth, Daily, # 90 tablet, 1 Refills, [facility]127, 159, cm, 10/26/21 10:50:00 EDT,Height, 98, kg, 07/06/21 19:57:00 EST, Dry Weight Start Date: 10/27/21 Status: Ordered VITAMIN B-1 100 MG TABLET VITAMIN B-1 100 MG TABLET, 1, tablet, By Mouth, Daily, # 90 tablet, 1 Refills, 159, cm, 10/26/21 10:50:00 EDT, Height, 98, kg, 07/06/21 19:57:00 EST, Dry Weight Start Date: 11/10/21 Status: Ordered Problem List Condition Effective Dates [...]
--- OUTSIDE RECORDS SUMMARY | 2024-02-08 01:04 | XMS_ITS | Continuity of Care Document ---
Author Organization [facility] Address [address] [place] [id number]- Care Team Providers Care Sas Administrator Name Role Phone Rc CORDERO, Mick Clay Primary Care Physician Encounter [facility] [place] Date(s): 05/02/21 - 06/12/21 [facility] [address] [place] [address]- Attending Physician: Guicho CORDERO, Bhumi Admitting Physician: Bhumi Lindo MD Referring Physician: Camacho CORDERO, Sanju Preciado Allergies, Adverse Reactions, Alerts Substance Reaction Severity Status amoxicillin 1 Active Cats Active Other Food Allergy 2 [...] 3 Refills, Maintenance, 07/12/20 14:12:00 EST, [facility], 157, cm, 05/07/20 11:34:00 EDT, Height, 91, kg, 02/28/20 22:14:00 EDT, Dry Weight Start Date: 07/12/20 Status: Ordered empagliflozin 10 mg oral tablet 1 tablet = 10 mg, By Mouth, Daily in AM, # 90 tablet, 3 Refills, Maintenance, 06/09/21 12:06:00 EST, Tablet, [id number], Partial fill upon [...] Replace Required Details, [id number] upon patient re... Start [...] mL, 0 Refills, [facility] [address]94, 18, INSTILL 1 DROP IN BOTH EYES [...] Daily, # 90 tablet, 2 Refills, [facility] 63318, 158, cm, 04/25/21 14:49:00 EDT,Height, 98.6, kg, [...] opioid drug. Start Date: 03/10/21 Status: Ordered sertraline 25 mg oral tablet 1 tablet = 25 mg, By Mouth, Daily, # 30 tablet, 2 Refills, Maintenance, 05/26/21 12:47:00 EDT, Tablet, [facility]/pharmacy #[id number], Partial fill upon patient request if the prescription is for a schedule II opioid drug., 158, cm, 04/25/21 14:49:00 EDT, Height,... Start Date: 05/26/21 Status: Ordered thiamine 100 mg oral tablet [...] Refills, Maintenance, 05/10/21 4:19:00 EDT, Tablet, [facility]/pharmacy #[id number], Partial fill upon patient request if the prescription is for a schedule II opioid drug., 158, cm, 04/25/21 14:49:00 EDT, Height,... Start Date: 05/10/21 Status: Ordered Vitamin D2 50,000 intl units (1.25 mg) oral capsule 1 capsule = 50,000 International_Units, By Mouth, Every , # 8 capsule, 0 Refills, Maintenance, 04/14/21 12:50:00 EDT, [facility]/pharmacy #[id number], Partial fill upon [...]
--- OUTSIDE RECORDS SUMMARY | 2024-02-08 01:04 | XMS_ITS | Continuity of Care Document ---
Author Organization [facility] Address [address] [place] [id number]- Care Team Providers Care Body Joiner Name Role Phone Rc CORDERO, Mick Clay Primary Care Physician Encounter [facility] [place] Date(s): 04/11/21 - 04/14/[address] [address] Discharge Disposition: A-D/C Home Attending Physician: Maribell CORDERO, Meghan Trujillo Admitting Physician: Mariella Frazier MD Referring Physician: Not on Staff, Referring [...] # 90 tablet, 1 Refills, [facility], 159, cm, 03/23/21 9:06:00 EDT, Height, 100.2, kg, 03/15/21 4:17:00 EDT, Dry Weight Start Date: 03/25/21 Status: Ordered amLODIPine 5 mg oral tablet 5 mg, Tablet, By Mouth, 04/14/21 9:00:00 EDT Start Date: 04/14/21 Stop Date: 04/14/21 Status: Completed aspirin 81 mg oral delayed release tablet 81 mg, 1, tablet, By Mouth, Daily, # 30 tablet, Refills 0, Tot. Refills 0, Maintenance, 03/15/21 12:35:00 EDT, Route to Pharmacy Electronically, [facility]/pharmacy #[id number], Partial fill upon patient request if the prescription is for a schedule II opioid drug... Start Date: 03/15/21 Stop Date: 04/14/21 Status: Ordered azaTHIOprine 50 mg oral tablet [...] Refills, Maintenance, 03/23/21 9:41:00 EDT, Solution, [facility]/pharmacy #[id number], Partial fill upon patient request if the prescription is for a schedule II opioid drug., 1 drops Eyes, Both 2 times a day, 159, cm... Start Date: 03/23/21 Status: Ordered diclofenac 1% topical gel 1 application, Topically, 4 times a day, # 100 Gm, 5 Refills, Maintenance, 10/07/19 10:56:00 EDT, Gel, [facility]/pharmacy #[id number], 160, cm, 08/19/19 8:02:00 EST, Height Start Date: 10/07/19 Status: Ordered doxycycline monohydrate 100 mg oral capsule = 100 mg, By Mouth, Every 12 hours, for 5 days, # 10 capsule, 0 Refills, Acute 04/19/21 12:49:00 EDT, 04/14/21 12:49:00 EDT, Capsule, [facility]/pharmacy #[id number], Partial fill upon patient request if the prescription is for a schedule II opioid drug., 158, cm,... Start Date: 04/14/21 Stop Date: 04/19/21 Status: Ordered Eliquis 5 mg oral tablet 1 tablet, By Mouth, 2 times a day, # 180 tablet, 3 Refills, Maintenance, 07/12/20 14:12:00 EST, [facility], 157, cm, 05/07/20 11:34:00 EDT, Height, 91, kg, 02/28/20 22:14:00 EDT, Dry Weight Start Date: 07/12/20 Status: Ordered gabapentin 400 mg oral capsule See Instructions, 2 capsule By Mouth 3 times a day, # 180 capsule, Refills 0, Tot. Refills 0, Maintenance, 03/16/21 10:36:00 EDT, Instructions Replace Required Details, Route to Pharmacy Electronically, [facility]/pharmacy #[id number], Partial fill upon patient re... Start Date: 03/16/21 Status: Ordered gabapentin 400 mg oral capsule 800 mg, Capsule, By Mouth, 04/14/21 9:00:00 EDT Start Date: 04/14/21 Stop Date: 04/14/21 Status: Completed isosorbide mononitrate 30 mg oral tablet, extended release 1 tablet = 30 mg, By Mouth, Daily, # 30 tablet, 0 Refills, Maintenance, 03/15/21 12:37:00 EDT, ER Tablet, [facility]/pharmacy #[id number], Partial fill upon patient request if the prescription is for a schedule II opioid drug., 159, cm, 03/15/21 8:14:00 EDT, Heigh... Start Date: 03/15/21 Status: Ordered latanoprost 0.005% ophthalmic solution See Instructions, INSTILL 1 DROP IN BOTH EYES DAILY BEFORE DINNER, # 2.5 mL, 0 Refills, [facility], 18, INSTILL 1 DROP IN BOTH EYES DAILY BEFORE DINNER, 158, cm, 04/14/21 11:28:00 EDT, Height, 98.6, kg, 04/11/21 15:59:00 EDT, Dry Weight Start Date: 04/14/21 Status: Ordered Lipitor 40 mg oral tablet 1 tablet = 40 mg, By Mouth, Daily at bedtime, # 30 tablet, 0 Refills, Maintenance, 03/15/21 12:37:00 EDT, Tablet, [facility]/pharmacy #[id number], Partial fill upon patient request if the prescription is for a schedule II opioid drug., 159, cm, 03/15/21 8:14:00 ED... Start Date: 03/15/21 Status: Ordered MAgnesium level in 3 days MAgnesium level in 3 days, See Instructions, # 1 each, Refills 0, Tot. Refills 0, Maintenance, Pls send the results to Dr Mick Tatum, 04/14/21 13:04:00 EDT, Supply Start Date: 04/14/21 Status: Ordered magnesium oxide 400 mg oral tablet 1 tablet = 400 mg, By Mouth, 2 times a day, for 5 days, # 10 tablet, 0 Refills, Acute 04/19/21 12:51:00 EDT, 04/14/21 12:51:00 EDT, Tablet, [facility]/pharmacy #[id number], Partial fill upon patient request if the prescription is for a schedule II opioid drug., 15... Start Date: 04/14/21 Stop Date: 04/19/21 Status: Ordered metoprolol 25 mg oral tablet, extended release 25 mg, 1, tablet, By Mouth, Daily, # 30 tablet, Refills 5, Tot. Refills 5, Maintenance, 12/06/20 13:03:00 EDT, Route to Pharmacy Electronically, [facility]/pharmacy #[id number], Partial fill upon patient request if the prescription is for a schedule II opioid drug... Start Date: 12/06/20 Stop Date: 06/04/21 Status: Ordered metoprolol 25 mg oral tablet, extended release 25 mg, XL Tablet, By Mouth, 04/14/21 9:00:00 EDT Start Date: 04/14/21 Stop Date: 04/14/21 Status: Completed nitroglycerin 0.4 mg sublingual tablet 1 tablet = 0.4 mg, Sublingual, Every 5 minutes, PRN as needed for chest pain, not to exceed 3 doses/15 min--if pain persists, seek medical attention, # 100 tablet, 0 Refills, Maintenance, 03/15/21 12:38:00 EDT, Tablet, [facility]/pharmacy #[id number], Partial fill... Start Date: 03/15/21 [...] 04/14/21 12:51:00 EDT, Route to Pharmacy Electronically, [facility]/pharmacy #[id number], Partial fill upon patient request if the prescription is... Start Date: 04/14/21 Stop Date: 05/14/21 Status: Ordered torsemide 20 mg oral tablet 1 tablet = 20 mg, By Mouth, Daily, # 30 tablet, 0 Refills, Maintenance, 04/14/21 12:52:00 EDT, Tablet, [facility]/pharmacy #[id number], Partial fill upon patient request if the prescription is for a schedule II opioid drug., 158, cm, 04/14/21 11:28:00 EDT, Height,... Start Date: 04/14/21 Status: Ordered Vitamin D2 50,000 intl units (1.25 mg) oral capsule 1 capsule = 50,000 International_Units, By Mouth, Every , # 8 capsule, 0 Refills, Maintenance, 04/14/21 12:50:00 EDT, [facility]/pharmacy #[id number], Partial fill upon patient request [...] Vertigo(Confirmed) Active 1RT LEG 2BILATERAL KNEES Results Radiology Reports * Exam Date Time Procedure Performing Provider Status 04/11/21 8:50 PM Chest Portable Do , Julian; Auth (Veri fied) Notes: (Chest Portable) Reason For Exam: CHF RESULT: Chest Portable Chest Portable Reason: CHF; Clinical Question(s): CHF COMPARISON: None. FINDINGS: LINES AND TUBES: None. LUNGS AND PLEURA: Low lung volumes with mild basilar atelectasis. Lungs are otherwise clear with no consolidation. No pleural effusion. No pneumothorax. HEART, MEDIASTINUM AND WILFRED: Heart is normal in size. Normal upper mediastinal and hilar contour. BONES AND SOFT TISSUES: No acute abnormality. IMPRESSION: Bibasilar atelectasis similar to prior examination. WSN: [id number] Ordering Physician: Stevie Dumont Dictated By: Pio Burns MD Dictated Date/Time: 04/11/21 9:21 pm Reviewed By: Pio Burns MD Signed By: Pio Burns MD Signed Date/Time: 04/11/21 9:21 pm Transcribed By: WENDY Transcribed Date/Time: 04/11/21 9:20 pm Vital Signs Most recent to oldest [Reference Range]: 1 2 3 Height 158 cm (04/14/21 11:28 AM) 158 cm (04/14/21 6:45 AM) 158 cm (04/14/21 12:07 AM) Weight 96.4 kg (04/14/21 6:45 AM) 98.3 kg (04/12/21 2:07 PM) 98.6 kg (04/11/21 3:58 PM) Oxygen Saturation [94-100 %] 94 % (04/14/21 11:28 AM) 95 % (04/14/21 6:45 AM) 94 % (04/14/21 12:07 AM) Pulse Rate [55-90 bpm] 77 bpm (04/14/21 11:28 AM) 77 bpm (04/14/21 11:26 AM) 70 bpm (04/14/21 6:45 AM) Body Mass Index [18.5-24.99] 38.62 *>HHI* (04/14/21 6:45 AM) 39.38 *>HHI* (04/12/21 2:07 PM) 39.5 *>HHI* (04/11/21 3:58 PM) Blood Pressure [90-138/55-84 mm Hg] 125/58mm Hg (04/14/21 11:28 AM) 125/58mm Hg (04/14/21 11:26 AM) 125/58mm Hg (04/14/21 11:26 AM) Respiratory Rate [16-30 br/min] 18 br/min (04/14/21 12:30 PM) 18 br/min (04/14/21 11:28 AM) 18 br/min (04/14/21 11:26 AM) Temperature [96.8-100.4 DegF] 98.2 DegF (04/14/21 11:28 AM) 98.1 DegF (04/14/21 6:45 AM) 97.9 DegF (04/14/21 12:07 AM) Liters per Minute 1 L/min (04/13/21 10:59 AM) 2 L/min (04/13/21 6:23 AM) 2 L/min (04/12/21 4:43 AM) Mode of Delivery (Oxygen) Room air (04/14/21 11:28 AM) Room air (04/14/21 6:45 AM) Room air (04/14/21 12:07 AM) Blood pressure sites Arm, right (04/14/21 11:28 AM) Arm, right (04/14/21 6:45 AM) Arm, left (04/14/21 12:07 AM) Temperature Route Oral (04/14/21 11:28 AM) Oral (04/14/21 6:45 AM) Oral (04/14/21 12:07 AM) Dry Weight 98.6 kg (04/11/21 3:58 PM) Weight Obtained Via Bed scale (04/14/21 6:45 AM) Bed scale (04/12/21 2:07 PM) Social History Social History Type Response Smoking Status Never (less than 100 in lifetime) entered on: 06/27/18 Sex
--- OUTSIDE RECORDS SUMMARY | 2024-02-08 01:04 | XMS_ITS | Continuity of Care Document ---
Author Organization [facility] Address [address] [place] [id number]- Care Team Providers Care Service Porter Name Role Phone Mick Tatum MD Primary Care Physician [phone] Encounter [facility] [place] Date(s): 10/09/22 - 11/08/22 [facility] [address] [place] [id number]- [place] Allergies, Adverse Reactions, Alerts Substance Reaction [...] itchy, I will re-enter the onion allergy hilton whitney Immunizations Given and Recorded Vaccine Date Status [...] vaccine 3 07/23/10 Recorded tetanus/diphtheria/pertussis, acel(Tdap) 4 1/1/09 Recorded tetanus-diphtheria toxoids (Td) 5 07/23/96 Recorde d Not Given Vaccine Date Status Refusal Reason tetanus-diphtheria toxoids (Td) 07/01/19 Not Given Parent Or Guardian Refuses 1Result Comment: [id number] 2Location History: DR LOAIZA 3Location History: DR LOAIZA 4Location History: DR LOAIZA 5Location History: DR LOAIZA Medications atorvastatin 40 mg oral tablet 1 tablet, By Mouth, Daily at bedtime, # 90 tablet, 3 Refills, Maintenance, 05/13/22 7:24:00 EDT, [facility], 157, cm, 05/12/22 13:47:00 EDT, Height, 94.3, [...] 3 Refills, Maintenance, 05/27/22 16:57:00 EDT, [facility], 157, cm, 05/12/22 13:47:00 EDT, Height, 94.3, kg, 01/19/22 4:25:00 EDT, Dry Weight Start Date: 05/27/22 Status: Ordered empagliflozin 10 mg oral tablet 1 tablet = 10 mg, By Mouth, Daily in AM, # 90 tablet, 3 Refills, Maintenance, 06/09/22 12:36:00 EST, Tablet, [facility]/pharmacy #[id number], Partial fill upon patient request if the prescription is for a schedule II opioid drug., 157, cm, 05/12/22 13:47:00 EDT, H... Start Date: 06/09/22 Stop Date: 06/04/23 Status: Ordered gabapentin 400 mg oral capsule 2, capsule, By Mouth, 3 times a day, # 180 capsule, Refills 5, Tot. Refills 5, Maintenance, 08/28/22 15:05:00 EST, Route to Pharmacy Electronically, [facility]/pharmacy #[id number], 157, cm, 07/27/22 15:56:00 EST, Height, 94.3, kg, 01/19/22 4:25:00 EDT, Dry Weight Start Date: 08/28/22 Status: Ordered HYDROmorphone 2 mg oral tablet 1 tablet = 2 mg, By Mouth, Every 6 hours, PRN Pain , Severe, # 20 tablet, 0 Refills, Acute 11/13/2311:15:00 EDT, 10/12/22 12:15:00 EDT, [facility]/pharmacy #[id number], Partial fill upon patient request if the prescription is for a schedule II opioid drug., 157,... Start Date: 10/12/22 Stop Date: 11/12/22 Status: Ordered isosorbide mononitrate 60 mg oral tablet, extended release 60 mg, 1, tablet, By Mouth, 2 times a day, # 180 tablet, Refills 3, Tot. Refills 3, Maintenance, 07/10/22 16:07:00 EST, [id number] fill upon patientrequest if the prescription is for a schedule II op... Start Date: 07/10/22 Status: Ordered latanoprost 0.005% ophthalmic solution See Instructions, INSTILL 1 DROP IN BOTH EYES DAILY BEFORE DINNER, # 2.5 mL, 0 Refills, [facility], 18, INSTILL 1 DROP IN BOTH EYES DAILY BEFORE DINNER, 158, cm, 04/14/21 11:28:00 EDT, Height, 98.6, kg, 04/11/21 15:59:00 EDT, Dry Weight Start Date: 04/14/21 Status: Ordered Metoprolol Succinate ER 25 mg oral tablet, extended release 1 tablet, By Mouth, Daily, # 90 tablet, 3 Refills, 09/30/22 20:06:00 EST, [facility]/pharmacy #[id number], 157, cm, 09/15/22 11:19:00 EST, Height, 94.3, kg, 01/19/22 4:25:00 EDT, Dry Weight Start Date: 09/30/22 Status: Ordered nitroglycerin 0.4 mg sublingual tablet 1 tablet = 0.4 mg, Sublingual, Every 5 minutes, PRN as needed for chest pain, not to exceed 3 doses/15 min--if pain persists, seek medical attention, # 100 tablet, 0 Refills, Maintenance, 03/15/21 12:38:00 EDT, Tablet, [facility]/pharmacy #[id number], Partial fill... Start Date: 03/15/21 Status: Ordered rOPINIRole 0.5 mg oral tablet 1 tablet, By Mouth, 4 times a day, # 360 tablet, 1 Refills, Maintenance, 07/25/22 9:33:00 EST, [facility], 157, cm, 07/10/22 15:50:00 EST, Height, 94.3, kg, 01/19/22 4:25:00 EDT, Dry Weight Start Date: 07/25/22 Status: Ordered spironolactone 25 mg oral tablet 25 mg, 1, tablet, By Mouth, Daily, # 90 tablet, Refills 3, Tot. Refills 3, Maintenance, 10/09/22 15:42:00 EDT, Route to Pharmacy Electronically, [facility]/pharmacy #[id number], Partial fill upon [...] Stop 05/15/23 16:05:00 EDT, 05/20/22 16:05:00 EDT, [facility]/pharmacy #[id number], 157, cm, 05/12/22 13:47:00 EDT, Height, 94.3,kg, 01/19/22 4:25:00 EDT, Dry Weight Start Date: 05/20/22 Stop Date: 05/15/23 Status: Ordered Vitamin B1 100 mg oral tablet 100 mg, 1, tablet, By Mouth, Daily, # 90 tablet, Refills 3, Tot. Refills 3, Acute 05/20/23 16:10:00EDT, 05/20/22 16:10:00 EDT, Route to Pharmacy Electronically, [facility]/pharmacy #[id number], Partial fill uponpatient request if [...] Team Personnel Name: Lisa Carlson RN Position: [facility] RN Member Role: Primary Care Nurse Name: Estrellita Putnam RN Position: [facility] RN Member Role: Primary Care Nurse Name: Marlen Kenny RN Position: [facility] RN Member Role: Primary Care Nurse Name: Toshia Muhammad RN Position: [facility] RN Martha Member Role: Primary Care Nurse Name: Suleman Jones RN Position: [facility] RN Member Role: Primary Care Nurse Name: Kathy Medina RN Position: [facility] RN Member Role: Primary Care Nurse Name: Lesli Mercedes RN Position: [facility] RN Member Role: Primary Care Nurse Name: Marguerite Wang RN Position: [facility] RN Member Role: Primary Care Nurse Name: Mick Tatum MD Position: [facility] Primary Care Physician Member Role: PCP Address: Address: [address] [place] [id number] Name: Svitlana Clark RN Position: [facility] RN Member Role: Primary Care Nurse Name: Yoana Guevara RN Position: [facility] RN Member Role: Primary Care Nurse Name: Pierre Groves RN Position: [facility] RN Member Role: Primary Care Nurse Name: Carmen Murphy RN Position: [facility] RN Member Role: Primary Care Nurse Name: Rylie Ordonez RN Position: [facility] [place] RN Member Role: Primary Care Nurse Name: Aditi Brown RN Position: [facility] RN Member Role: Primary Care Nurse Name: Chana Cazares RN Position: [facility] RN Member Role: Primary Care Nurse Name: Toshia Urbina RN Position: [facility] RN Member Role: Primary Care Nurse Name: Aniyah Sloan RN Position: [facility] SN RN Member Role: Primary Care Nurse Name: Rosemary Ramon RN Position: [facility] OB RN Member Role: Primary Care Nurse Name: Sneha Newton RN Position: [facility] Social Worker Member Role: Primary Care Nurse Care Team Related Persons Name: CLAUDIA URBINA Address: [address] [place] [address] Name: RALPH SÁNCHEZ Address: [address] [place] [address] Name: DONY CARCAMO Address: [address] [place] [address]
--- OUTSIDE RECORDS SUMMARY | 2024-02-08 01:04 | XMS_ITS | Continuity of Care Document ---
Author Organization [facility] Gopi Jose lt Address [address] [place] [address]- Care Team Providers Care Combustion Engineer Name Role Phone Марина CORDERO, Ignacio New Primary Care Physician [phone] En[place] [facility] [place] [facility] [place] Date(s[place] 04/27/20 - 05/27/20 [facility] Adult [address] [place] [address]- Allergies, Adverse Reactions, Alerts Substance Reaction Severity [...] 03/30/20 8:48:00 EDT, Route to Pharmacy Electronically, [facility]/pharmacy #[id number], 157, cm, 03/11/20 12:49:00 EDT, Height, 91, kg, 02/28/20 22:14:00 EDT, Dry Weight Start Date: 03/30/20 Stop Date: 03/25/21 Status: Ordered cephalexin monohydrate 500 mg oral capsule 1 capsule = 500 mg, By Mouth, 4 times a day, for 28 days, # 112 capsule, 1 Refills, Acute 06/18/20 11:43:00 EST, 04/23/20 11:43:00 EDT, Capsule, [facility]/pharmacy #[id number], 157, cm, 04/23/20 11:28:00 EDT, Height, 91, kg, 02/28/20 22:14:00 EDT, Dry Weight Start Date: 04/23/20 Stop Date: 06/18/20 Status: Ordered Cosopt ophthalmic solution 1 drops, [...] Maintenance,03/30/20 8:48:00 EDT, [id number], cm, 03/11/20 12:49:00 EDT, Height, 91, kg, 02/28/20 22:14:00 EDT, Dry... Start Date: 03/30/20 Stop Date: 12/25/20 Status: Ordered HYDROmorphone 2 mg oral tablet 1 tablet = 2 mg, By Mouth, Every 8 hours, PRN as needed for pain, # 20 tablet, 0 Refills, Maintenance, 05/07/20 13:21:00 EDT, Tablet, [id number], Partial fill upon patient request, 157, cm, 05/07/20 11:34:00 EDT, Height, 91, kg, 02/28/20 22:14... Start Date: 05/07/20 Status: Ordered Lialda 1.2 g oral delayed [...]
--- OUTSIDE RECORDS SUMMARY | 2024-02-08 01:04 | XMS_ITS | Continuity of Care Document ---
Author Organization [facility] Gopi Jose lt Address [address] [place] [address]- Care Team Providers Care Director Child Development Center Name Role Phone Ignacio Parish MD Primary Care Physician [phone] [place] [facility] [place] 02/27/20 - 03/05/20 [facility] Adult [address] [place] [address]- [facility] Attending Physician: Ignacio Parish MD Allergies, Adverse Reactions, Alerts Substance Reaction Severity Status amoxicillin 1 Active Cats Active Contrast Dye Active Dust Active Tomatoes Active egg-containing compound 2 Re solved Other [...] 5 Refills, Maintenance, 10/07/19 10:56:00 EDT, Gel, [facility]/pharmacy #[id number], 160, cm, 08/19/19 8:02:00 EST, Height Start Date: 10/07/19 Status: Ordered Eliquis 5 mg oral tablet 1 tablet, By Mouth, 2 times a day, # 180 tablet, Refills 3 Tot. Refills 3, [facility]/pharmacy #[id number] Start Date: 06/17/19 Status: Ordered gabapentin 300 mg oral capsule 300 mg, 1, capsule, By Mouth, 3 times a day, # 90 capsule, Refills 2, Tot. Refills 2, Maintenance, 03/20/19 12:07:35 EDT, Route to Pharmacy Electronically, [id number], [facility]/pharmacy #[id number] Start Date: 03/20/19 Status: Ordered Lialda 1.2 g oral delayed release tablet 2 tablet = 2.4 Gm, By Mouth, Daily, 0 Refills, Maintenance, 06/27/18 15:39:26 EST Start Date: 06/27/18 Status: Ordered ProAir HFA 90 mcg/inh inhalation aerosol with adapter 2, puffs, Inhalation, Every 6 hours, PRN, # 8.5 Gm, Refills 0, Tot. Refills 0, Maintenance, 02/20/20 16:00:00 EDT, Aerosol, Route to Pharmacy Electronically, [id number], [facility]/pharmacy #[id number], 160, cm, 02/20/20 15:13:00 EDT, Height [...] recent to oldest [Reference Range]: 1 Height 160.00 cm (02/27/20 11:45 AM) Social History Social History Type Response Smoking Status Never (less than 100 in lifetime) entered on: 06/27/18 Sex
--- OUTSIDE RECORDS SUMMARY | 2024-02-08 01:04 | XMS_ITS | Continuity of Care Document ---
Author Organization [facility] Gopi Jose lt Address [address] [place] [address]- Care Team Providers Care Marking Machine Tender Name Role Phone Mick Tatum MD Primary Care Physician Encounter [facility] Date(s): 11/21/22 - 12/21/22 [facility] Adult [address] [place] [address]- Allergies, Adverse Reactions, Alerts Substance Reaction Severity Status amoxicillin 1 Active Other Environmental Allergy 2 Active Other Food Allergy 3 chicken, peppers, onions Resolved Benadryl Shaking Active Cats Active Contrast Dye [...] Given Parent Or Guardian Refuses 1Result Comment: [id number] 2Location History: DR LOAIZA 3Location History: DR LOAIZA 4Location History: DR LOAIZA 5Location History: DR LOAIZA Medications atorvastatin 40 mg oral tablet 1 tablet, By Mouth, Daily at bedtime, # 90 tablet, 3 Refills, Maintenance, 05/13/22 7:24:00 EDT, [facility], 157, cm, 05/12/22 13:47:00 EDT, Height, 94.3, [...] 5 Refills, Maintenance, 05/13/22 9:34:00 EDT, Gel, [facility]/pharmacy #[id number], 157, cm, 05/12/22 13:47:00 EDT, Height, 94.3, kg, 01/19/22 4:25:00 EDT, Dry Weight Start Date: 05/13/22 Status: Ordered Eliquis 5 mg oral tablet 1 tablet, By Mouth, 2 times a day, # 180 tablet, 3 Refills, Maintenance, 05/27/22 16:57:00 EDT, [facility], [facility], cm, 05/12/22 13:47:00 EDT, Height, 94.3, kg, 01/19/22 4:25:00 EDT, Dry Weight Start Date: 05/27/22 Status: Ordered empagliflozin 10 mg oral tablet 1 tablet = 10 mg, By Mouth, Daily in AM, # 90 tablet, 3 Refills, Maintenance, 06/09/22 12:36:00 EST, Tablet, [facility]/pharmacy #[id number], Partial fill upon patient request if the prescription is for a schedule II opioid drug., 157, cm, 05/12/22 13:47:00 EDT, H... Start Date: 06/09/22 Stop Date: 06/04/23 Status: Ordered gabapentin 400 mg oral capsule 2, capsule, By Mouth, 3 times a day, # 180 capsule, Refills 5, Tot. Refills 5, Maintenance, 08/28/22 15:05:00 EST, Route to Pharmacy Electronically, [facility]/pharmacy #[id number], 157, cm, 07/27/22 15:56:00 EST, Height, 94.3, kg, 01/19/22 4:25:00 EDT, Dry Weight Start Date: 08/28/22 Status: Ordered isosorbide mononitrate 60 mg oral tablet, extended release 60 mg, 1, tablet, By Mouth, 2 times a day, # 180 tablet, Refills 3, Tot. Refills 3, Maintenance, 07/10/22 16:07:00 EST, Route to Pharmacy Electronically, [facility]/pharmacy #[id number], Partial fill upon patientrequest if the prescription is for a schedule II op... Start Date: 07/10/22 Status: Ordered latanoprost 0.005% ophthalmic solution See Instructions, INSTILL 1 DROP IN BOTH EYES DAILY BEFORE DINNER, # 2.5 mL, 0 Refills, [facility], 18, INSTILL 1 DROP IN BOTH EYES DAILY BEFORE DINNER, 158, cm, 04/14/21 11:28:00 EDT, Height, 98.6, kg, 04/11/21 15:59:00 EDT, Dry Weight Start Date: 04/14/21 Status: Ordered Metoprolol Succinate ER 25 mg oral tablet, extended release 1 tablet, By Mouth, Daily, # 90 tablet, 3 Refills, 09/30/22 20:06:00 EST, [facility]/pharm[facility] #[id number], 157, cm, 09/15/22 11:19:00 EST, Height, 94.3, kg, 01/19/22 4:25:00 EDT, Dry Weight Start Date: 09/30/22 Status: Ordered nitroglycerin 0.4 mg sublingual tablet 1 tablet = 0.4 mg, Sublingual, Every 5 minutes, PRN as needed for chest pain, not to exceed 3 doses/15 min--if pain persists, seek medical attention, # 100 tablet, 0 Refills, Maintenance, 12/19/22 9:51:00 EDT, Tablet, [facility]/pharm[facility] #[id number], Partial fill... Start Date: 12/19/22 Status: Ordered ondansetron 4 mg oral tablet 1 tablet = 4 mg, By Mouth, Every 8 hours, PRN Nausea & Vomiting, # 10 tablet, 2 Refills, Acute 01/30/23 8:27:00 EDT, 11/30/22 8:27:00 EDT, Tablet, [facility]/pharmacy #[id number], Partial fill upon patient request if the prescription is for a schedule II opioid drJohann. Start Date: 11/30/22 Stop Date: 01/30/23 Status: Ordered rOPINIRole 0.5 mg oral tablet 1 tablet, By Mouth, 4 times a day, # 360 tablet, 1 Refills, Maintenance, 07/25/22 9:33:00 EST, [id number], 157, cm, 07/10/22 15:50:00 EST, Height, 94.3, kg, 01/19/22 4:25:00 EDT, Dry Weight Start Date: 07/25/22 Status: Ordered spironolactone 25 mg oral tablet 25 mg, 1, tablet, By Mouth, Daily, # 90 tablet, Refills 3, Tot. Refills 3, Maintenance, 10/09/22 15:42:00 EDT, Route to Pharmacy Electronically, [facility]/pharmacy #[id number], Partial fill upon patient request [...] Stop 05/15/23 16:05:00 EDT, 05/20/22 16:05:00 EDT, [facility]/pharmacy #[id number], 157, cm, 05/12/22 13:47:00 EDT, Height, 94.3,kg, 01/19/22 4:25:00 EDT, Dry Weight Start Date: 05/20/22 Stop Date: 05/15/23 Status: Ordered Vitamin B1 100 mg oral tablet 100 mg, 1, tablet, By Mouth, Daily, # 90 tablet, Refills 3, Tot. Refills 3, Acute 05/20/23 16:10:00EDT, 05/20/22 16:10:00 EDT, Route to Pharmacy Electronically, [facility]/pharmacy #[id number], Partial fill uponpatient request if [...] Team Personnel Name: Lisa Carlson RN Position: [facility] RN Member Role: Primary Care Nurse Name: Estrellita Putnam RN Position: [facility] RN Member Role: Primary Care Nurse Name: Marlen Kenny RN Position: [facility] RN Member Role: Primary Care Nurse Name: Toshia Muhammad RN Position: [facility] RN Martha Member Role: Primary Care Nurse Name: Suleman Jones RN Position: [facility] RN Member Role: Primary Care Nurse Name: Kathy Medina RN Position: [facility] RN Member Role: Primary Care Nurse Name: Lesli Mercedes RN Position: [facility] RN Member Role: Primary Care Nurse Name: Mick Tatum MD Position: [facility] Physician - Primary Care Member Role: PCP Address: Address: [address] [place] [address]- Name: Svitlana Clark RN Position: [facility] RN Member Role: Primary Care Nurse Name: Yoana Guevara RN Position: [facility] RN Member Role: Primary Care Nurse Name: Pierre Groves RN Position: [facility] RN Member Role: Primary Care Nurse Name: Carmen Murphy RN Position: [facility] RN Member Role: Primary Care Nurse Name: Rylie Ordonez RN Position: [facility] [place] RN Member Role: Primary Care Nurse Name: Aditi Brown RN Position: [facility] RN Member Role: Primary Care Nurse Name: Chana Cazares RN Position: [facility] RN Member Role: Primary Care Nurse Name: Toshia Urbina RN Position: [facility] RN Member Role: Primary Care Nurse Name: Aniyah Sloan RN Position: [facility] SN RN Member Role: Primary Care Nurse Name: Rosemary Ramon RN Position: [facility] OB RN Member Role: Primary Care Nurse Name: Sneha Newton RN Position: [facility] Hospital Nursing Home Administrator Member Role: Primary Care Nurse Care Team Related Persons Name: CLAUDIA URBINA Address: [address] [place] [address] Name: RALPH SÁNCHEZ Address: [address] [place] [address] Name: DONY CARCAMO Address: [address] [place] [address]
--- OUTSIDE RECORDS SUMMARY | 2024-02-08 01:04 | XMS_ITS | Continuity of Care Document ---
Author Organization [facility] Address [address] [place] [address]- Care Team Providers Care Assistant Financial Accountant Name Role Phone Mick Tatum MD Primary Care Physician Encounter [facility] Date(s): 06/09/21 - 07/09/21 [facility] [address] [place] [address]- Attending Physician: Julia Haile Admitting Physician: Julia Haile Referring Physician: AdmtrJulia Allergies, Adverse Reactions, Alerts Substance Reaction Severity Status amoxicillin 1 Active Cats Active egg-containing compound 2 Re solved Other Environmental Allergy 3 Active Contrast Dye Active Dust Active Other Food Allergy 4 chicken, peppers, [...] tablet, By Mouth, Daily, for 30 days, Stop after one week (07/16/2021), # 30 tablet, Refills 5, Tot. Refills 5, Hard Stop 10/24/21 13:28:00 EDT, 04/27/21 13:28:00 EDT, Route to Pharmacy Electronically, [facility]/pharmacy #[id number], Partial fill upon p... Start Date: 04/27/21 Stop Date: 10/24/21 Status: Ordered azaTHIOprine 50 mg oral tablet [...] 07/09/21 10:04:00 EST, Route to Pharmacy Electronically, [facility]/pharmacy #[id number], Partial fill upon patient request if the prescription is for a schedule II opioid Start Date: 07/09/21 Stop Date: 07/04/22 Status: Ordered Cosopt 2.23%-0.68% ophthalmic solution 1 drops, Eyes, Both, 2 times a day, # 10 mL, 0 Refills, Maintenance, 03/23/21 9:41:00 EDT, Solution, [facility]/pharmacy #[id number], Partial fill upon patient request if the prescription is for a schedule II opioid drug., 1 drops Eyes, Both 2 times a day, 159, cm... Start Date: 03/23/21 Status: Ordered [facility] ASPIRIN EC 81 MG TABLET [facility] ASPIRIN EC 81 MG TABLET, 1, tablet, By Mouth, Daily, # 30 tablet, 0 Refills, 158, cm, 04/14/21 11:28:00 EDT, Height, 98.6, kg, 04/11/21 15:59:00 EDT, Dry Weight Start Date: 04/22/21 Status: Ordered diclofenac 1% topical gel 1 application, Topically, 4 times a day, # 100 Gm, 5 Refills, Maintenance, 10/07/19 10:56:00 EDT, Gel, [facility]/pharmacy #[id number], 160, cm, 08/19/19 8:02:00 EST, Height Start Date: 10/07/19 Status: Ordered Eliquis 5 mg oral tablet 1 tablet, By Mouth, 2 times a day, # 180 tablet, 3 Refills, [facility] ST[facility] 24[facility], 158, cm, 06/09/21 10:14:00 EST, Height, 98.6, kg, 04/11/21 15:59:00 EDT, Dry Weight Start Date: 06/17/21 Status: Ordered empagliflozin 10 mg oral tablet 1 tablet = 10 mg, By Mouth, Daily in AM, # 90 tablet, 3 Refills, Maintenance, 06/09/21 12:06:00 EST, Tablet, [facility]/pharmacy #[id number], [...] capsule, Refills 0, Route to Pharmacy Electronically, [facility], 158, cm, 06/09/21 10:14:00 EST, Height, 98.6, kg, 04/11/21 15:59:00 EDT, Dry Weight Start Date: 06/23/21 Status: Ordered HYDROmorphone 2 mg oral tablet 1 tablet = 2 mg, By Mouth, Every 12 hours, PRN Pain , Severe, Dx: Severe lumbar degen disc disease,# 12 tablet, 0 Refills, Acute 07/17/21 8:24:00 EST, 06/17/21 8:24:00 EST, [facility]/pharmacy #[id number], Partial fill upon patient request if the prescription is... Start Date: 06/17/21 Stop Date: 07/17/21 Status: Ordered isosorbide mononitrate 30 mg oral tablet, extended release 1 tablet, By Mouth, Daily, for 90 days, # 90 tablet, 3 Refills, Physician Stop 04/20/22 16:32:00 EDT, 04/25/21 16:32:00 EDT, [facility]/pharmacy #[id number], 158, cm, 04/25/21 14:49:00 EDT, Height, 98.6, kg, 04/11/21 15:59:00 EDT, Dry Weight Start Date: 04/25/21 Stop Date: 04/20/22 Status: Ordered latanoprost 0.005% ophthalmic solution See Instructions, INSTILL 1 DROP IN BOTH EYES DAILY BEFORE DINNER, # 2.5 mL, 0 Refills, [facility], 18, INSTILL 1 DROP IN BOTH EYES DAILY BEFORE DINNER, 158, cm, 04/14/21 11:28:00 EDT, Height, 98.6, kg, 04/11/21 15:59:00 EDT, Dry Weight Start Date: 04/14/21 Status: Ordered Lipitor 40 mg oral tablet 1 tablet = 40 mg, By Mouth, Daily, # 30 tablet, 5 Refills, Maintenance, 04/28/21 6:50:00 EDT, Tablet, [id number], Partial fill upon [...] 12/06/20 13:03:00 EDT, Route to Pharmacy Electronically, [facility] [...] 0 Refills, Maintenance, 03/15/21 12:38:00 EDT, Tablet, [facility]/pharmacy #[id number], Partial fill... Start Date: 03/15/21 [...] 05/14/21 12:51:00 EDT, Route to Pharmacy Electronically, [facility] [...]
--- OUTSIDE RECORDS SUMMARY | 2024-02-08 01:04 | XMS_ITS | Continuity of Care Document ---
Author Organization [facility] Gopi Jose lt Address [address] [place] [address]- Care Team Providers Care Site Operations Manager Name Role Phone Mick Tatum MD Primary Care Physician [phone] Encounter [facility] Date(s): 07/11/22 - 08/10/22 [facility] Adult [address] [place] [address]- Allergies, Adverse Reactions, Alerts Substance Reaction Severity [...] Given Parent Or Guardian Refuses 1Result Comment: [id number] 2Location History: DR LOAIZA 3Location History: DR LOAIZA 4Location History: DR LOAIZA 5Location History: DR LOAIZA Medications atorvastatin 40 mg oral tablet 1 tablet, By Mouth, Daily at bedtime, # 90 tablet, 3 Refills, Maintenance, 05/13/22 7:24:00 EDT, [facility], 157, cm, 05/12/22 13:47:00 EDT, Height, 94.3, [...] 6:58:00 EDT, 01/18/22 6:58:00 EDT, CR Capsule, [facility]/pharmacy #[id number], Partial fill upon patient request if the prescription is for a schedule II opioid drug., 159, cm, 12/21... Start Date: 01/18/22 Stop Date: 01/18/23 Status: Ordered clopidogrel 75 mg oral tablet 75 mg, 1, tablet, By Mouth, Daily, # 90 tablet, Refills 3, Tot. Refills 3, Maintenance, 07/10/22 16:07:00 EST, Route to Pharmacy Electronically, [facility]/pharmacy #[id number], Partial fill upon patient request if the prescription is for a schedule II opioid drug... Start Date: 07/10/22 Stop Date: 07/05/23 Status: Ordered Cosopt 2.23%-0.68% ophthalmic solution 1 drops, Eyes, Both, 2 times a day, # 10 mL, 0 Refills, Maintenance, 03/23/21 9:41:00 EDT, Solution, [facility]/pharmacy #[id number], Partial fill upon patient request if the prescription is for a schedule II opioid drug., 1 drops Eyes, Both 2 times a day, 159, cm... Start Date: 03/23/21 Status: Ordered diclofenac 1% topical gel 1 application, Topically, 4 times a day, # 100 Gm, 5 Refills, Maintenance, 05/13/22 9:34:00 EDT, Gel, [facility]/pharmacy #[id number], 157, cm, 05/12/22 13:47:00 EDT, Height, 94.3, kg, 01/19/22 4:25:00 EDT, Dry Weight Start Date: 05/13/22 Status: Ordered Eliquis 5 mg oral tablet 1 tablet, By Mouth, 2 times a day, # 180 tablet, 3 Refills, Maintenance, 05/27/22 16:57:00 EDT, [facility], cm, 05/12/22 13:47:00 EDT, Height, 94.3, kg, 01/19/22 4:25:00 EDT, Dry Weight Start Date: 05/27/22 Status: Ordered empagliflozin 10 mg oral tablet 1 tablet = 10 mg, By Mouth, Daily in AM, # 90 tablet, 3 Refills, Maintenance, 06/09/22 12:36:00 EST, Tablet, [facility]/pharmacy #[id number], Partial fill upon patient request if the prescription is for a schedule II opioid drug., 157, cm, 05/12/22 13:47:00 EDT, H... Start Date: 06/09/22 Stop Date: 06/04/23 Status: Ordered gabapentin 400 mg oral capsule 2, capsule, By Mouth, 3 times a day, # 180 capsule, Refills 5, Route to Pharmacy Electronically, [facility] 66[facility], 159, cm, 12/21/21 15:41:00 EDT, Height, 93.6, kg, 01/06/22 9:12:00 EDT, Dry Weight Start Date: 01/17/22 Status: Ordered isosorbide mononitrate 60 mg oral tablet, extended release 60 mg, 1, tablet, By Mouth, 2 times a day, # 180 tablet, Refills 3, Tot. Refills 3, Maintenance, 07/10/22 16:07:00 EST, Route to Pharmacy Electronically, [facility]/pharmacy #[id number], Partial fill upon patientrequest if the prescription is for a schedule II op... Start Date: 07/10/22 Status: Ordered latanoprost 0.005% ophthalmic solution See Instructions, INSTILL 1 DROP IN BOTH EYES DAILY BEFORE DINNER, # 2.5 mL, 0 Refills, [facility], 18, INSTILL 1 DROP IN BOTH EYES DAILY BEFORE DINNER, 158, cm, 04/14/21 11:28:00 EDT, Height, 98.6, kg, 04/11/21 15:59:00 EDT, Dry Weight Start Date: 04/14/21 Status: Ordered Metoprolol Succinate ER 25 mg oral tablet, extended release 1 tablet, By Mouth, Daily, # 90 tablet, 2 Refills, [facility] 79398, 159, cm, 12/21/21 15:41:00 EDT,Height, 93.6, kg, 01/06/22 9:12:00 EDT, Dry Weight Start Date: 01/16/22 Status: Ordered nitroglycerin 0.4 mg sublingual tablet 1 tablet = 0.4 mg, Sublingual, Every 5 minutes, PRN as needed for chest pain, not to exceed 3 doses/15 min--if pain persists, seek medical attention, # 100 tablet, 0 Refills, Maintenance, 03/15/21 12:38:00 EDT, Tablet, [facility]/pharmacy #[id number], Partial fill... Start Date: 03/15/21 Status: Ordered rOPINIRole 0.5 mg oral tablet 1 tablet, By Mouth, 4 times a day, # 360 tablet, 1 Refills, Maintenance, 07/25/22 9:33:00 EST, [facility], 157, cm, 07/10/22 15:50:00 EST, Height, 94.3, [...] 05/20/22 16:10:00 EDT, Route to Pharmacy Electronically, [facility]/pharmacy #[id number], Partial fill uponpatient request [...] Team Personnel Name: Mojgan Lopez RN Position: [facility] RN Member Role: Primary Care Nurse Name: Lisa Carlson RN Position: [facility] RN Member Role: Primary Care Nurse Name: Estrellita Putnam RN Position: [facility] RN Member Role: Primary Care Nurse Name: Marlen Kenny RN Position: [facility] RN Member Role: Primary Care Nurse Name: Toshia Muhammad RN Position: [facility] RN Supjulieth Member Role: Primary Care Nurse Name: Suleman Jones RN Position: [facility] RN Member Role: Primary Care Nurse Name: Kathy Medina RN Position: [facility] RN Member Role: Primary Care Nurse Name: Lesli Mercedes RN Position: [facility] RN Member Role: Primary Care Nurse Name: Marguerite Wang RN Position: [facility] RN Member Role: Primary Care Nurse Name: Ananya Robledo RN Position: [facility] RN Member Role: Primary Care Nurse Name: Mick Tatum MD Position: [facility] Primary Care Physician Member Role: PCP Address: Address: [address] [place] [id number] Name: Svitlana Clark RN Position: [facility] RN Member Role: Primary Care Nurse Name: Yoana Guevara RN Position: [facility] RN Member Role: Primary Care Nurse Name: Pierre Groves RN Position: [facility] RN Member Role: Primary Care Nurse Name: Carmen Murphy RN Position: [facility] RN Member Role: Primary Care Nurse Name: Rylie Ordonez RN Position: [facility] PCO RN Member Role: Primary Care Nurse Name: Marisa Negrete RN Position: [facility] RN Member Role: Primary Care Nurse Name: Aditi Brown RN Position: [facility] RN Member Role: Primary Care Nurse Name: Chana Cazares RN Position: [facility] RN Member Role: Primary Care Nurse Name: Toshia Urbina RN Position: [facility] RN Member Role: Primary Care Nurse Name: Aniyah Sloan RN Position: [facility] SN RN Member Role: Primary Care Nurse Name: Rosemary Ramon RN Position: [facility] OB RN Member Role: Primary Care Nurse Name: Sneha Newton RN Position: [facility] Hospital Career Counselor Member Role: Primary Care Nurse Care Team Related Persons Name: CARLITOSCLAUDIA OLIVER Address: [address] [place] [address] Name: RALPH SÁNCHEZ Address: [address] [place] [address] Name: DONY CARCAMO Address: [address] [place] [address]
--- OUTSIDE RECORDS SUMMARY | 2024-02-08 01:04 | XMS_ITS | Continuity of Care Document ---
Author Organization [facility] Jose lt Address [address] [place] [id number]- Care Team Providers Care Permit Specialist Name Role Phone Ignacio Parish MD Primary Care Physician [place] [facility] [place](s): 08/02/19 - 11/30/19 [facility] Adult [address] [place] [address]- [facility] Attending Physician: Ignacio Parish MD Allergies, [...] HOSPITAL/pharmacy #[id number] Start Date: 06/17/19 Status: Ordered Flonase 50 mcg/inh nasal spray 2 sprays, Nares, Both, Daily, # 16 Gm, 5 Refills, Maintenance, 10/29/19 12:45:00 EDT, [facility]/pharmacy #[id number], 2 sprays Nares, Both Daily, 160, cm, 08/19/19 8:02:00 EST, Height Start Date: 10/29/19 Status: Ordered gabapentin 300 mg oral capsule 300 mg, 1, capsule, By Mouth, 3 times a day, # 90 capsule, Refills 2, Tot. Refills 2, Maintenance, 03/20/19 12:07:35 EDT, Route to Pharmacy Electronically, [id number], [facility]/pharmacy #[id number] Start Date: 03/20/19 Status: Ordered Lialda 1.2 g oral delayed release tablet 2 tablet = 2.4 Gm, By Mouth, Daily, 0 Refills, Maintenance, 06/27/18 15:39:26 EST Start Date: 06/27/18 Status: Ordered predniSONE 20 mg oral tablet 2 tablet = 40 mg, By Mouth, Daily, # 14 tablet, 0 Refills, Maintenance, 11/06/19 14:38:00 EDT, [facility]/pharmacy #[id number], 160, cm, 08/19/19 8:02:00 EST, Height Start Date: 11/06/19 Status: Ordered Requip 0.5 mg oral tablet [...]
--- OUTSIDE RECORDS SUMMARY | 2024-02-08 01:04 | XMS_ITS | Continuity of Care Document ---
Author Organization [facility] Jose lt Address [address] [place] [address]- Care Team Providers Care Nurse Informaticist Name Role Phone Rc CORDERO, Mick Clay Primary Care Physician [phone] [place] [facility] [place] 05/16/23 - 06/15/23 [facility] Adult [address] [place] [address]- Allergies, Adverse Reactions, Alerts Substance Reaction Severity Status amoxicillin 1 Active Benadryl Shaking Active Dust Active Other Food Allergy 2 chicken, peppers, onions Resolved Other Environmental Allergy 3 Active Cats Active Contrast Dye Active egg-containing compound 4 [...] Recorded tetanus-diphtheria toxoids (Td) 5 07/23/96 Recorde juan pablo Otilia Comment: [id number] 2Location History: DR LOAIZA 3Location History: DR LOAIZA 4Location History: DR LOAIZA 5Location History: DR LOAIZA Medications atorvastatin 40 mg oral tablet 1 tablet, By Mouth, Daily at bedtime, # 90 tablet, 1 Refills, Maintenance, 05/04/23 6:30:00 EDT, [facility], 157, cm, 03/21/23 14:39:00 EDT, Height, 94.3, kg, 01/19/22 4:25:00 EDT, Dry Weight Start Date: 05/04/23 Status: Ordered budesonide 3 mg oral delayed release capsule 0 Refills, Maintenance, 03/21/23 14:39:00 EDT, Partial fill upon patient request if the prescription is for a schedule II opioid drug. Start Date: 03/21/23 Status: Ordered Diflucan 150 mg oral tablet See Instructions, 1/2 tablet every 3 days for 12 days, # 2 tablet, 0 Refills, Soft Stop, 05/31/23 7:14:00 EST, [facility]/pharmacy #[id number], Partial fill upon patient request if the prescription is for a schedule II opioid drug., 157, cm, 05/31/23 6:38:00 EST,... Start Date: 05/31/23 Status: Ordered Eliquis 5 mg oral tablet 1 tablet, By Mouth, 2 times a day, # 180 tablet, 3 Refills, Maintenance, 06/15/23 1:44:00 EST, [facility], 157, cm, 05/31/23 6:38:00 EST, Height, 94.3, kg, 01/19/22 4:25:00 EDT, Dry Weight Start Date: 06/15/23 Status: Ordered isosorbide mononitrate 30 mg oral tablet, extended release 1 tablet, By Mouth, Daily, # 90 tablet, 3 Refills, Maintenance, 06/13/23 8:27:00 EST, [facility], 157, cm, 05/31/23 6:38:00 EST, Height, 94.3, kg, 01/19/22 4:25:00 EDT, Dry Weight Start Date: 06/13/23 Status: Ordered isosorbide mononitrate 60 mg oral tablet, extended release 1 tablet, By Mouth, 2 times a day, # 180 tablet, 3 Refills, Maintenance, 06/13/23 8:27:00 EST, [facility], 157, cm, 05/31/23 6:38:00 EST, Height, 94.3, kg, 01/19/22 4:25:00 EDT, Dry Weight Start Date: 06/13/23 Status: Ordered Jardiance 10 mg oral tablet 1 tablet, By Mouth, Daily in AM, # 90 tablet, 3 Refills, Maintenance, 06/04/23 8:09:00 EST, [facility], 157, cm, 05/31/23 6:38:00 EST, Height, 94.3, kg, 01/19/22 4:25:00 EDT, Dry Weight Start Date: 06/04/23 Stop Date: 09/02/23 Status: Ordered Metoprolol Succinate ER 25 mg oral tablet, extended release 1 tablet, By Mouth, Daily, # 90 tablet, 3 Refills, 09/30/22 20:06:00 EST, [facility]/pharmacy #[id number], 157, cm, 09/15/22 11:19:00 EST, Height, 94.3, kg, 01/19/22 4:25:00 EDT, Dry Weight Start Date: 09/30/22 Status: Ordered nitroglycerin 0.4 mg sublingual tablet 1 tablet = 0.4 mg, Sublingual, Every 5 minutes, PRN as needed for chest pain, not to exceed 3 doses/15 min--if pain persists, seek medical attention, # 100 tablet, 0 Refills, Maintenance, 12/19/22 9:51:00 EDT, Tablet, [facility]/pharmacy #[id number], Partial fill... Start Date: 12/19/22 Status: Ordered pantoprazole 40 mg oral delayed release tablet 0 Refills, Maintenance, 03/21/23 14:39:00 EDT Start Date: 03/21/23 Status: Ordered rOPINIRole 0.5 mg oral tablet 1 tablet, By Mouth, 4 times a day, # 360 tablet, 1 Refills, Maintenance, 01/22/23 9:08:00 EDT, [facility], 157, cm, 12/28/22 14:14:00 EDT, Height, 94.3, kg, 01/19/22 4:25:00 EDT, Dry Weight Start Date: 01/22/23 Status: Ordered spironolactone 25 mg oral tablet 25 mg, 1, tablet, By Mouth, Daily, # 90 tablet, Refills 3, Tot. Refills 3, Maintenance, 10/09/22 15:42:00 EDT, [id number] Partial fill upon patient request if the prescription is for a schedule II opioid drug... Start Date: 10/09/22 Stop Date: 10/04/23 Status: Ordered torsemide 20 mg oral tablet 2 tablet = 40 mg, By Mouth, Daily, for 90 days, # 180 tablet, 3 Refills, Physician Stop 07/26/23 8:14:00 EST, 07/31/22 8:14:00 EST, [id number], cm, 07/27/22 15:56:00 EST, Height, 94.3, kg, 01/19/22 4:25:00 EDT, Dry Weight Start Date: 07/31/22 Stop Date: 07/26/23 Status: Ordered Problem List Condition Confirmation Course [...] Team Personnel Name: Lisa Carlson RN Position: [facility] RN Member Role: Primary Care Nurse Name: Estrellita Putnam RN Position: [facility] RN Member Role: Primary Care Nurse Name: Marlen Kenny RN Position: [facility] RN Member Role: Primary Care Nurse Name: Toshia Muhammad RN Position: [facility] RN Martha Member Role: Primary Care Nurse Name: Suleman Jones RN Position: [facility] RN Member Role: Primary Care Nurse Name: Kathy Medina RN Position: [facility] RN Member Role: Primary Care Nurse Name: Marguerite Wang RN Position: [facility] RN Member Role: Primary Care Nurse Name: Mick Tatum MD Position: [facility] Physician - Primary Care Member Role: PCP Address: Address: [address] [place] [address]- [place] Name: Svitlana Clark RN Position: [facility] RN Member Role: Primary Care Nurse Name: Yoana Guevara RN Position: [facility] RN Member Role: Primary Care Nurse Name: Pierre Groves RN Position: [facility] RN Member Role: Primary Care Nurse Name: Carmen Murphy NP Position: [facility] PCO Associate Professional Member Role: Primary Care Nurse Address: Address: [address] [place] [phone]- [place] Name: Rylie Ordonez RN Position: [facility] AMB Nurse Member Role: Primary Care Nurse Name: Marisa Negrete RN Position: [facility] SN RN Member Role: Primary Care Nurse Name: Aditi Brown RN Position: [facility] RN Member Role: Primary Care Nurse Name: Chana Cazares RN Position: [facility] RN Member Role: Primary Care Nurse Name: Toshia Urbina RN Position: [facility] RN Member Role: Primary Care Nurse Name: Isabel Gray Position: [facility] [employer] Banker Member Role: Lard Mixer Name: Aniyah Sloan RN Position: [facility] SN RN Member Role: Primary Care Nurse Name: Rosemary Ramon RN Position: [facility] OB RN Member Role: Primary Care Nurse Name: Sneha Newton RN Position: [facility] Hospital Preschool Assistant Teacher Member Role: Primary Care Nurse Care Team Related Persons Name: CLAUDIA URBINA Address: [address] [place] [address] Name: RALPH SÁNCHEZ Address: [address] [facility] [address] Name: DONY CARCAMO Address: home [address] [facility] [place] [address]
--- OUTSIDE RECORDS SUMMARY | 2024-02-08 01:04 | XMS_ITS | Continuity of Care Document ---
Author Organization [facility] Address [address] [place] [address]- Care Team Providers Care Crowning Hammer Operator Name Role Phone Rc CORDERO, Mick Clay Primary Care Physician Encounter [facility] [place] Date(s): 04/21/21 - 05/21/21 [facility] [address] [place] [id number]- [place] Allergies, Adverse Reactions, Alerts Substance Reaction [...] 04/27/21 13:28:00 EDT, Route to Pharmacy Electronically, [facility]/pharmacy #[id number], Partial fill upon patient request if the prescription... Start Date: 04/27/21 Stop Date: 10/24/21 Status: Ordered aspirin 81 mg oral delayed release tablet 81 mg, 1, tablet, By Mouth, Daily, # 30 tablet, Refills 5, Tot. Refills 5, Maintenance, 10/24/21 13:28:00 EDT, [facility] MG TABLET [facility] 81 MG TABLET, 1, tablet, [...] 3 Refills, Maintenance, 07/12/20 14:12:00 EST, [facility], 157, cm, 05/07/20 11:34:00 EDT, Height, 91, kg, 02/28/20 22:14:00 EDT, Dry Weight Start Date: 07/12/20 Status: Ordered gabapentin 400 mg oral capsule See Instructions, 2 capsule By Mouth 3 times a day, # 180 capsule, Refills 0, Tot. Refills 0, Maintenance, 03/16/21 10:36:00 EDT, Instructions Replace Required Details, Route to Pharmacy Electronically, [facility]/pharmacy #[id number], Partial fill upon patient re... Start [...] mL, 0 Refills, [facility], 18, INSTILL 1 DROP IN BOTH EYES [...] 0 Refills, Maintenance, 04/14/21 12:50:00 EDT, [facility]/pharmacy #[id number], Partial fill upon [...]
--- OUTSIDE RECORDS SUMMARY | 2024-02-08 01:04 | XMS_ITS | Continuity of Care Document ---
Author Organization [facility] Address [address] [place] [address]- Care Team Providers Care Liquefied Natural Gas Plant Operator Name Role Phone Mick Tatum MD Primary Care Physician [place] [facility] [place] 08/17/22 - 09/16/22 [facility] [address] [place] [id number]- [place] Allergies, Adverse Reactions, Alerts Substance Reaction [...] Given Parent Or Guardian Refuses 1Result Comment: [id number] 2Location History: DR LOAIZA 3Location History: DR LOAIZA 4Location History: DR LOAIZA 5Location History: DR LOAIZA Medications atorvastatin 40 mg oral tablet 1 tablet, By Mouth, Daily at bedtime, # 90 tablet, 3 Refills, Maintenance, 05/13/22 7:24:00 EDT, [facility], 157, cm, 05/12/22 13:47:00 EDT, Height, 94.3, [...] tablet, 3 Refills, Maintenance, 05/27/22 16:57:00 [facility], cm, 05/12/22 13:47:00 EDT, Height, 94.3, kg, 01/19/22 4:25:00 EDT, Dry Weight Start Date: 05/27/22 Status: Ordered empagliflozin 10 mg oral tablet 1 tablet = 10 mg, By Mouth, Daily in AM, # 90 tablet, 3 Refills, Maintenance, 06/09/22 12:36:00 EST, Tablet, [id number], Partial fill upon patient request if the prescription is for a schedule II opioid drug., 157, cm, 05/12/22 13:47:00 EDT, H... Start Date: 06/09/22 Stop Date: 06/04/23 Status: Ordered gabapentin 400 mg oral capsule 2, capsule, By Mouth, 3 times a day, # 180 capsule, Refills 5, Tot. Refills 5, Maintenance, 08/28/22 15:05:00 EST, Route to Pharmacy Electronically, [id number], 157, cm, 07/27/22 15:56:00 EST, Height, 94.3, kg, 01/19/22 4:25:00 EDT, Dry Weight Start Date: 08/28/22 Status: Ordered ibuprofen 400 mg oral tablet 400 mg, 1, tablet, By Mouth, 2 times a day, for 14 days, # 28 tablet, Refills 0, Tot. Refills 0, Acute 09/29/22 15:35:00 EST, 09/15/22 15:35:00 EST, Route to Pharmacy Electronically, [id number], replaces meloxicam, 157, cm, 09/15/22 11:19:00 E... Start Date: 09/15/22 Stop Date: 09/29/22 Status: Ordered isosorbide mononitrate 60 mg oral tablet, extended release 60 mg, 1, tablet, By Mouth, 2 times a day, # 180 tablet, Refills 3, Tot. Refills 3, Maintenance, 07/10/22 16:07:00 EST, Route to Pharmacy Electronically, [id number], Partial fill upon patientrequest if the prescription is for a schedule II op... Start Date: 07/10/22 Status: Ordered latanoprost 0.005% ophthalmic solution See Instructions, INSTILL 1 DROP IN BOTH EYES DAILY BEFORE DINNER, # 2.5 mL, 0 Refills, [facility], 18, INSTILL 1 DROP IN BOTH EYES DAILY BEFORE DINNER, 158, cm, 04/14/21 11:28:00 EDT, Height, 98.6, kg, 04/11/21 15:59:00 EDT, Dry Weight Start Date: 04/14/21 Status: Ordered Metoprolol Succinate ER 25 mg oral tablet, extended release 1 tablet, By Mouth, Daily, # 90 tablet, 2 Refills, [facility], 159, cm, 12/21/21 15:41:00 EDT,Height, 93.6, kg, 01/06/22 9:12:00 EDT, Dry Weight Start Date: 01/16/22 Status: Ordered nitroglycerin 0.4 mg sublingual tablet 1 tablet = 0.4 mg, Sublingual, Every 5 minutes, PRN as needed for chest pain, not to exceed 3 doses/15 min--if pain persists, seek medical attention, # 100 tablet, 0 Refills, Maintenance, 03/15/21 12:38:00 EDT, Tablet, [id number], Partial fill... Start Date: 03/15/21 Status: Ordered rOPINIRole 0.5 mg oral tablet 1 tablet, By Mouth, 4 times a day, # 360 tablet, 1 Refills, Maintenance, 07/25/22 9:33:00 EST, [facility], 157, cm, 07/10/22 15:50:00 EST, Height, 94.3, kg, 01/19/22 4:25:00 EDT, Dry Weight Start Date: 07/25/22 Status: Ordered spironolactone 25 mg oral tablet 25 mg, 1, tablet, By Mouth, Daily, # 90 tablet, Refills 0, Maintenance, 09/15/22 11:21:00 EST, Partial fill upon patient request if the prescription is for a schedule II opioid drug. Start Date: 09/15/22 Status: Ordered torsemide 20 mg oral tablet [...] 05/20/22 16:10:00 EDT, Route to Pharmacy Electronically, [id number], Partial fill uponpatient request if [...] Team Personnel Name: Mojgan Lopez RN Position: [facility] RN Member Role: Primary Care Nurse Name: Lisa Carlson RN Position: [facility] RN Member Role: Primary Care Nurse Name: Estrellita Putnam RN Position: [facility] RN Member Role: Primary Care Nurse Name: Marlen Kenny RN Position: [facility] RN Member Role: Primary Care Nurse Name: Toshia Muhammad RN Position: [facility] RN Martha Member Role: Primary Care Nurse Name: Suleman Jones RN Position: [facility] RN Member Role: Primary Care Nurse Name: Kathy Medina RN Position: [facility] RN Member Role: Primary Care Nurse Name: Marguerite Wang RN Position: [facility] RN Member Role: Primary Care Nurse Name: Mick Tatum MD Position: [facility] Primary Care Physician Member Role: PCP Address: Address: [address] [place] [id number] Name: Svitlana Clark RN Position: [facility] RN Member Role: Primary Care Nurse Name: Yoana Guevara RN Position: [facility] RN Member Role: Primary Care Nurse Name: Pierre Groves RN Position: [facility] RN Member Role: Primary Care Nurse Name: Carmen Murphy RN Position: [facility] RN Member Role: Primary Care Nurse Name: Rylie Ordonez RN Position: [facility] [employer] RN Member Role: Primary Care Nurse Name: Marisa Negrete RN Position: [facility] RN Member Role: Primary Care Nurse Name: Aditi Brown RN Position: [facility] RN Member Role: Primary Care Nurse Name: Chana Cazares RN Position: [facility] RN Member Role: Primary Care Nurse Name: Toshia Urbina RN Position: [facility] RN Member Role: Primary Care Nurse Name: Aniyah Sloan RN Position: [facility] SN RN Member Role: Primary Care Nurse Name: Rosemary Ramon RN Position: [facility] OB RN Member Role: Primary Care Nurse Name: Sneha Newton RN Position: [facility] Hospital Ship Rigger Apprentice Member Role: Primary Care Nurse Care Team Related Persons Name: CLAUDIA URBINA Address: [address] [place] [address] Name: PRINCESS RALPH Address: [address] [place] [address] Name: DONY CARCAMO Address: [address] [place] [address]
--- OUTSIDE RECORDS SUMMARY | 2024-02-08 01:04 | XMS_ITS | Continuity of Care Document ---
Author Organization [facility] Gopi Jose lt Address [address] [place] [address]- Care Team Providers Care Panelboard Tank Pumper Name Role Phone Rc CORDERO, Mick Clay Primary Care Physician Encounter [facility] Date(s): 06/03/23 - 07/03/23 [facility] Adult [address] [place] [address]- Allergies, Adverse Reactions, Alerts Substance Reaction Severity [...] toxoids (Td) 5 07/23/96 Augiemin Bingham Comment: [id number] 2Location History: DR LOAIZA 3Location History: DR LOAIZA 4Location History: DR LOAIZA 5Location History: DR LOAIZA Medications atorvastatin 40 mg oral tablet 1 tablet, By Mouth, Daily at bedtime, # 90 tablet, 1 Refills, Maintenance, 05/04/23 6:30:00 EDT, [facility], 157, cm, 03/21/23 14:39:00 EDT, Height, 94.3, kg, 01/19/22 4:25:00 EDT, Dry Weight Start Date: 05/04/23 Status: Ordered azaTHIOprine 50 mg oral tablet [...] Gm, 1 Refills, Maintenance, 06/29/23 16:21:00 EST, [facility]/pharmacy #[id number], Partial safia... Start Date: 06/29/23 Status: Ordered Diflucan 150 mg oral tablet See Instructions, 1/2 tablet every 3 days for 12 days, # 2 tablet, 0 Refills, Soft Stop, 05/31/23 7:14:00 EST, [facility]/pharmacy #[id number], Partial fill upon patient request if the prescription is for a schedule II opioid drug., 157, cm, 05/31/23 6:38:00 EST,... Start Date: 05/31/23 Status: Ordered duloxetine 20 mg oral enteric coated capsule 1 capsule = 20 mg, By Mouth, Daily at bedtime, # 30 capsule, 2 Refills, Maintenance, 06/28/23 12:37:00 EST, [facility]/pharmacy #[id number], Partial fill upon patient request if the prescription is for a scheduleII opioid drug., 157, cm, 06/27/23 16:10:00 EST, He... Start Date: 06/28/23 Status: Ordered Eliquis 5 mg oral tablet 1 tablet, By Mouth, 2 times a day, # 180 tablet, 3 Refills, Maintenance, 06/15/23 1:44:00 EST, [id number], 157, cm, 05/31/23 6:38:00 EST, Height, 94.3, kg, 01/19/22 4:25:00 EDT, Dry Weight Start Date: 06/15/23 Status: Ordered HYDROmorphone 2 mg oral tablet 1 tablet = 2 mg, By Mouth, Every 6 hours, PRN Pain , Severe, Dx: M51.36, # 28 tablet, 0 Refills, Acute 11/18/23 15:27:00 EDT, 07/19/23 15:25:00 EST, [facility]/pharmacy #[id number], Partial fill upon patient request if the prescription is for a schedule II opioid... Start Date: 07/19/23 Stop Date: 11/18/23 Status: Ordered isosorbide mononitrate 30 mg oral tablet, extended release 1 tablet, By Mouth, Daily, # 90 tablet, 3 Refills, Maintenance, 06/13/23 8:27:00 EST, [facility], 157, cm, 05/31/23 6:38:00 EST, Height, 94.3, kg, 01/19/22 4:25:00 EDT, Dry Weight Start Date: 06/13/23 Status: Ordered isosorbide mononitrate 60 mg oral tablet, extended release 1 tablet, By Mouth, 2 times a day, # 180 tablet, 3 Refills, Maintenance, 06/13/23 8:27:00 EST, [id number], 157, cm, 05/31/23 6:38:00 EST, Height, 94.3, kg, 01/19/22 4:25:00 EDT, Dry Weight Start Date: 06/13/23 Status: Ordered Jardiance 10 mg oral tablet 1 tablet, By Mouth, Daily in AM, # 90 tablet, 3 Refills, Maintenance, 06/04/23 8:09:00 EST, [facility], 157, cm, 05/31/23 6:38:00 EST, Height, 94.3, kg, 01/19/22 4:25:00 EDT, Dry Weight Start Date: 06/04/23 Stop Date: 09/02/23 Status: Ordered Metoprolol Succinate ER 25 mg oral tablet, extended release 1 tablet, By Mouth, Daily, # 90 tablet, 3 Refills, 09/30/22 20:06:00 EST, [facility]/pharmacy #[id number], 157, cm, 09/15/22 11:19:00 EST, Height, 94.3, kg, 01/19/22 4:25:00 EDT, Dry Weight Start Date: 09/30/22 Status: Ordered nitroglycerin 0.4 mg sublingual tablet 1 tablet = 0.4 mg, Sublingual, Every 5 minutes, PRN as needed for chest pain, not to exceed 3 doses/15 min--if pain persists, seek medical attention, # 100 tablet, 0 Refills, Maintenance, 12/19/22 9:51:00 EDT, Tablet, [facility]/pharmacy #[id number], Partial fill... Start Date: 12/19/22 Status: Ordered oxyCODONE 5 mg oral tablet 5 mg, 1, tablet, By Mouth, 2 times a day, PRN, # 56 tablet, Refills 0, Tot. Refills 0, Acute 06/28/24 12:36:00 EST, as needed for pain, 06/28/23 12:35:00 EST, Route to Pharmacy Electronically, [facility]/pharmacy #[id number], Partial fill upon patient request if t... Start Date: 06/28/23 Stop Date: 06/28/24 Status: Ordered pantoprazole 40 mg oral delayed release tablet 0 Refills, Maintenance, 03/21/23 14:39:00 EDT Start Date: 03/21/23 Status: Ordered rOPINIRole 0.5 mg oral tablet 1 tablet, By Mouth, 4 times a day, # 360 tablet, 1 Refills, Maintenance, 01/22/23 9:08:00 EDT, [facility], 157, cm, 12/28/22 14:14:00 EDT, Height, 94.3, kg, 01/19/22 4:25:00 EDT, Dry Weight Start Date: 01/22/23 Status: Ordered spironolactone 25 mg oral tablet 25 mg, 1, tablet, By Mouth, Daily, # 90 tablet, Refills 3, Tot. Refills 3, Maintenance, 10/09/22 15:42:00 EDT, [id number] fill upon patient request if the prescription is for a schedule II opioid drug... Start Date: 10/09/22 Stop Date: 10/04/23 Status: Ordered torsemide 20 mg oral tablet 2 tablet = 40 mg, By Mouth, Daily, for 90 days, # 180 tablet, 3 Refills, Physician Stop 07/26/23 8:14:00 EST, 07/31/22 8:14:00 EST[id number] 157, cm, 07/27/22 15:56:00 EST, Height, [...] Team Personnel Name: Lisa Carlson RN Position: S RN Member Role: Primary Care Nurse Name: Estrellita Putnam RN Position: S RN Member Role: Primary Care Nurse Name: Marlen Kenny RN Position: [facility] RN Member Role: Primary Care Nurse Name: Toshia Muhammad RN Position: [facility] RN Supv Member Role: Primary Care Nurse Name: Suleman Jones RN Position: [facility] RN Member Role: Primary Care Nurse Name: Kathy Medina RN Position: [facility] RN Member Role: Primary Care Nurse Name: Marguerite Wang RN Position: [facility] RN Member Role: Primary Care Nurse Name: Mick Tatum MD Position: [facility] Physician - Primary Care Member Role: PCP Address: Address: [address] [place] [id number]- [place] Name: Svitlana Clark RN Position: [facility] RN Member Role: Primary Care Nurse Name: Yoana Guevara RN Position: [facility] RN Member Role: Primary Care Nurse Name: Pierre Groves RN Position: [facility] RN Member Role: Primary Care Nurse Name: Carmen Murphy NP Position: [facility] PCO Associate Professional Member Role: Primary Care Nurse Address: Address: [address] [place] [address]- Name: Rylie Ordonez RN Position: [facility] AMB Nurse Member Role: Primary Care Nurse Name: Marisa Negrete RN Position: [facility] SN RN Member Role: Primary Care Nurse Name: Aditi Brown RN Position: [facility] RN Member Role: Primary Care Nurse Name: Chana Cazares RN Position: [facility] RN Member Role: Primary Care Nurse Name: Toshia Urbina RN Position: [facility] RN Member Role: Primary Care Nurse Name: Isabel Gray Position: [facility] [place] Woodworking Shop Laborer Member Role: Ophthalmic Aide Name: Aniyah Sloan RN Position: [facility] SN RN Member Role: Primary Care Nurse Name: Rosemary Ramon RN Position: [facility] OB RN Member Role: Primary Care Nurse Name: Sneha Newton RN Position: [facility] Hospital Customer Support Agent Member Role: Primary Care Nurse Care Team Related Persons Name: CLAUDIA URBINA Address: [address], [place] Name: RALPH SÁNCHEZ Address: [address], [place] Name: DONY CARCAMO Address: home [address] [place], [place]
--- OUTSIDE RECORDS SUMMARY | 2024-02-08 01:04 | XMS_ITS | Continuity of Care Document ---
Author Organization [facility] ter Address [address] [place] [address]- Care Team Providers Care Talent Specialist Name Role Phone Rc CORDERO, Mick Clay Primary Care Physician Encounter [facility] Date(s): 01/19/22 - 01/21/[address] [address] Encounter Diagnosis ALTAGRACIA (acute kidney injury)(Final) - 01/19/22 Discharge Disposition: A-D/C Home Attending Physician: Doug Butt MD Admitting Physician: Rafael Summers MD Referring Physician: Not on Staff, Referring MD Allergies, Adverse Reactions, Alerts Substance Reaction Severity Status amoxicillin 1 Active Other Environmental Allergy 2 Active Benadryl Shaking Active Cats Active Contrast [...] 07/09/21 10:04:00 EST, Route to Pharmacy Electronically, [facility]/pharmacy #[id number], Partial fill upon patient request if the prescription is for a schedule II opioid dr... Start Date: 07/09/21 Stop Date: 07/04/22 Status: Ordered Cosopt 2.23%-0.68% ophthalmic solution 1 drops, Eyes, Both, 2 times a day, # 10 mL, 0 Refills, Maintenance, 03/23/21 9:41:00 EDT, Solution, [facility]/pharmacy #[id number], Partial fill upon patient request if the prescription is for a schedule II opioid drug., 1 drops Eyes, Both 2 times a day, 159, cm... Start Date: 03/23/21 Status: Ordered diclofenac 1% topical gel 1 application, Topically, 4 times a day, # 100 Gm, 5 Refills, Maintenance, 10/07/19 10:56:00 EDT, Gel, [facility]/pharmacy #[id number], 160, cm, 08/19/19 8:02:00 EST, Height Start Date: 10/07/19 Status: Ordered Eliquis 5 mg oral tablet 1 tablet, By Mouth, 2 times a day, # 180 tablet, 3 Refills, [facility], 158, cm, 06/09/21 10:14:00 EST, Height, 98.6, kg, 04/11/21 15:59:00 EDT, Dry Weight Start Date: 06/17/21 Status: Ordered empagliflozin 10 mg oral tablet 1 tablet = 10 mg, By Mouth, Daily in AM, # 90 tablet, 3 Refills, Maintenance, 06/09/21 12:06:00 EST, Tablet, [facility]/pharmacy #[id number], Partial fill upon patient request if the prescription is for a schedule II opioid drug., 158, cm, 06/09/21 10:14:00 EST, H... Start Date: 06/09/21 Stop Date: 06/04/22 Status: Ordered gabapentin 400 mg oral capsule 2, capsule, By Mouth, 3 times a day, # 180 capsule, Refills 5, Route to Pharmacy Electronically, [id number], 159, cm, 12/21/21 15:41:00 EDT, Height, 93.6, kg, 01/06/22 9:12:00 EDT, Dry Weight Start Date: 01/17/22 Status: Ordered gabapentin 400 mg oral capsule 300 mg, Capsule, By Mouth, 01/21/22 9:00:00 EDT Start Date: 01/21/22 Stop Date: 01/21/22 Status: Completed isosorbide mononitrate 30 mg oral tablet, extended release 1 tablet, By Mouth, Daily, for 90 days, # 90 tablet, 3 Refills, Physician Stop 04/20/22 16:32:00 EDT, 04/25/21 16:32:00 EDT, [facility]/pharmacy #[id number], 158, cm, 04/25/21 14:49:00 EDT, Height, 98.6, kg, 04/11/21 15:59:00 EDT, Dry Weight Start Date: 04/25/21 Stop Date: 04/20/22 Status: Ordered latanoprost 0.005% ophthalmic solution See Instructions, INSTILL 1 DROP IN BOTH EYES DAILY BEFORE DINNER, # 2.5 mL, 0 Refills, [id number], 18, INSTILL 1 DROP IN BOTH EYES DAILY BEFORE DINNER, 158, cm, 04/14/21 11:28:00 EDT, Height, 98.6, kg, 04/11/21 15:59:00 EDT, Dry Weight Start Date: 04/14/21 Status: Ordered Lipitor 40 mg oral tablet 1 tablet = 40 mg, By Mouth, Daily at bedtime, # 30 tablet, 5 Refills, Maintenance, 04/28/21 6:50:00EDT, Tablet, [facility]/pharmacy #[id number], Partial fill upon patient request if the prescription is for a schedule II opioid drug., 158, cm, 04/25/21 14:49:00 ED... Start Date: 04/28/21 Status: Ordered Metoprolol Succinate ER 25 mg oral tablet, extended release 1 tablet, By Mouth, Daily, # 90 tablet, 2 Refills, [facility], 159, cm, 12/21/21 15:41:00 EDT,Height, 93.6, kg, 01/06/22 9:12:00 EDT, Dry Weight Start Date: 01/16/22 Status: Ordered nitroglycerin 0.4 mg sublingual tablet 1 tablet = 0.4 mg, Sublingual, Every 5 minutes, PRN as needed for chest pain, not to exceed 3 doses/15 min--if pain persists, seek medical attention, # 100 tablet, 0 Refills, Maintenance, 03/15/21 12:38:00 EDT, Tablet, [facility]/pharmacy #[id number], Partial fill... Start Date: 03/15/21 Status: Ordered rOPINIRole 0.5 mg oral tablet 1 tablet, By Mouth, 4 times a day, # 360 tablet, 1 Refills, [facility], 159, cm, 11/14/21 9:20:00 EDT, Height, 98, kg, 07/06/21 19:57:00 EST, Dry Weight Start Date: 11/22/21 Status: Ordered spironolactone 25 mg oral tablet 25 mg, 1, tablet, By Mouth, 2 times a day, HOLD SPIRONOLACTONE FOR NEXT 5 DAYS, GET BLOOD WORK AND THEN RESTART AFTER DISCUSSING WITH PCP, # 180 tablet, Refills 3, Tot. Refills 3, Maintenance, 11/14/21 9:55:00 EDT, Route to Pharmacy Electronically, [facility]... Start Date: 11/14/21 Stop Date: 11/09/22 Status: Ordered torsemide 20 mg oral tablet 2 tablet = 40 mg, By Mouth, Daily, HOLD FOR NEXT 5 DAYS, THEN GET BLOOD WORK AND RESTART AFTER DISCUSSING WITH PCP, # 90 tablet, 1 Refills, 12/13/21 10:45:00 EDT, [facility]/pharmacy #[id number], 159, cm, 12/13/21 10:22:00 EDT, Height, [...] Active Allergic rhinitis(Confirmed) Active MSSA bacteremia(Confirmed) Active DVT (deep venous thrombosis)(Confirmed) 1 Active Degenerative disc disease, t horacic and lumbar(Confirmed) Active Dyslipidemia(Confirmed) Active Elevated blood pressure read ing without diagnosis of hypertension(Confirmed) Active Glaucoma(Confirmed) Active Herpes zoster(Confirmed) Active Hypertension(Confirmed) Active Impaired fasting glucose(Confirmed) Active Nephrolithiasis(Confirmed) Active Right lumbar radiculopathy(Confirmed) Active Depression, major, single ep isode, moderate(Confirmed) Active Need for influenza vaccination(Confirmed) Active Obese class II(Confirmed) Active Osteoarthritis(Confirmed) 2 Active (Confirmed) Active Restless leg syndrome(Confirmed) Active Rosacea(Confirmed) Active Sarcoidosis(Confirmed) Active Peripheral sensory neuropathy(Confirmed) Active Ulcerative colitis(Confirmed) Active Vertigo(Confirmed) Active 1RT LEG 2BILATERAL KNEES Vital Signs Most recent to oldest [Reference Range]: 1 2 3 Height 157 cm (01/21/22 5:07 AM) 157 cm (01/21/22 12:52 AM) 157 cm (01/20/22 9:39 PM) Weight 94.3 kg (01/19/22 4:20 AM) Oxygen Saturation [94-100 %] 96 % (01/21/22 11:27 AM) 96 % (01/21/22 8:07 AM) 93 % *L* (01/21/22 5:07 AM) Pulse Rate [55-90 bpm] 69 bpm (01/21/22 11:27 AM) 70 bpm (01/21/22 8:07 AM) 70 bpm (01/21/22 5:07 AM) Body Mass Index [18.5-24.99] 38.26 *>HHI* (01/19/22 4:20 AM) Blood Pressure [90-138/55-84 mm Hg] 115/47mm Hg (01/21/22 11:27 AM) 114/46mm Hg (01/21/22 8:07 AM) 105/58mm Hg (01/21/22 5:07 AM) Respiratory Rate [16-30 br/min] 16 br/min (01/21/22 12:14 PM) 16 br/min (01/21/22 11:27 AM) 16 br/min (01/21/22 11:12 AM) Temperature [96.8-100.4 DegF] 98.4 DegF (01/21/22 11:27 AM) 99.1 DegF (01/21/22 8:07 AM) 98.4 DegF (01/21/22 5:07 AM) Mode of Delivery (Oxygen) Room air (01/21/22 11:27 AM) Room air (01/21/22 8:07 AM) Room air (01/21/22 5:07 AM) Blood pressure sites Arm, right (01/21/22 11:27 AM) Arm, right (01/21/22 8:07 AM) Arm, right (01/21/22 5:07 AM) Temperature Route Oral (01/21/22 11:27 AM) Oral (01/21/22 8:07 AM) Oral (01/21/22 5:07 AM) Dry Weight 94.3 kg (01/19/22 4:20 AM) Social History Social History Type Response Smoking Status Never (less than 100 in lifetime) entered on: 06/27/18 Sex
--- OUTSIDE RECORDS SUMMARY | 2024-02-08 01:05 | XMS_ITS | Continuity of Care Document ---
Author Organization [facility] Gopi Jose lt Address [address] [place] [address]- Care Team Providers Care Coroner Forensic Technician Name Role Phone Mick Tatum MD Primary Care Physician Encounter [facility] Date(s): 06/29/23 - 07/29/[address] [facility] Adult [address] [place] [address]- Allergies, Adverse Reactions, Alerts Substance Reaction Severity [...] toxoids (Td) 5 07/23/96 Recorde juan pablo [place] Comment: [id number] 2Location History: DR LOAIZA 3Location History: DR LOAIZA 4Location History: DR LOAIZA 5Location History: DR LOAIZA Medications atorvastatin 40 mg oral tablet 1 tablet, By Mouth, Daily at bedtime, # 90 tablet, 1 Refills, Maintenance, 05/04/23 6:30:00 EDT, [id number], 157, cm, 03/21/23 14:39:00 EDT, Height, 94.3, [...] Gm, 1 Refills, Maintenance, 06/29/23 16:21:00 EST, [facility]/pharmacy #[id number], Partial safia... Start Date: 06/29/23 Status: Ordered Diflucan 150 mg oral tablet See Instructions, 1/2 tablet every 3 days for 12 days, # 2 tablet, 0 Refills, Soft Stop, 05/31/23 7:14:00 EST, [facility]/pharmacy #[id number], Partial fill upon patient request if the prescription is for a schedule II opioid drug., 157, cm, 05/31/23 6:38:00 EST,... Start Date: 05/31/23 Status: Ordered duloxetine 20 mg oral enteric coated capsule 1 capsule = 20 mg, By Mouth, Daily at bedtime, # 30 capsule, 2 Refills, Maintenance, 06/28/23 12:37:00 EST, [facility]/pharmacy #[id number], Partial fill upon patient request if the prescription is for a scheduleII opioid drug., 157, cm, 06/27/23 16:10:00 EST, He... Start Date: 06/28/23 Status: Ordered Eliquis 5 mg oral tablet 1 tablet, By Mouth, 2 times a day, # 180 tablet, 3 Refills, Maintenance, 06/15/23 1:44:00 EST, [facility], 157, cm, 05/31/23 6:38:00 EST, Height, 94.3, kg, 01/19/22 4:25:00 EDT, Dry Weight Start Date: 06/15/23 Status: Ordered HYDROmorphone 2 mg oral tablet 1 tablet = 2 mg, By Mouth, Every 6 hours, PRN Pain , Severe, Dx: M51.36, # 28 tablet, 0 Refills, Acute 11/18/23 15:27:00 EDT, 07/19/23 15:25:00 EST, [facility]/pharmacy #[id number], Partial fill upon patient request if the prescription is for a schedule II opioid... Start Date: 07/19/23 Stop Date: 11/18/23 Status: Ordered isosorbide mononitrate 30 mg oral tablet, extended release 1 tablet, By Mouth, Daily, # 90 tablet, 3 Refills, Maintenance, 06/13/23 8:27:00 EST, [facility], 157, cm, 05/31/23 6:38:00 EST, Height, 94.3, kg, 01/19/22 4:25:00 EDT, Dry Weight Start Date: 06/13/23 Status: Ordered isosorbide mononitrate 60 mg oral tablet, extended release 1 tablet, By Mouth, 2 times a day, # 180 tablet, 3 Refills, Maintenance, 06/13/23 8:27:00 EST, [facility], 157, cm, 05/31/23 6:38:00 EST, Height, 94.3, kg, 01/19/22 4:25:00 EDT, Dry Weight Start Date: 06/13/23 Status: Ordered Jardiance 10 mg oral tablet 1 tablet, By Mouth, Daily in AM, # 90 tablet, 3 Refills, Maintenance, 06/04/23 8:09:00 EST, [facility], 157, cm, 05/31/23 6:38:00 EST, Height, 94.3, kg, 01/19/22 4:25:00 EDT, Dry Weight Start Date: 06/04/23 Stop Date: 09/02/23 Status: Ordered Metoprolol Succinate ER 25 mg oral tablet, extended release 1 tablet, By Mouth, Daily, # 90 tablet, 3 Refills, 09/30/22 20:06:00 EST, [facility]/pharmacy #[id number], 157, cm, 09/15/22 11:19:00 EST, Height, 94.3, kg, 01/19/22 4:25:00 EDT, Dry Weight Start Date: 09/30/22 Status: Ordered nitroglycerin 0.4 mg sublingual tablet 1 tablet = 0.4 mg, Sublingual, Every 5 minutes, PRN as needed for chest pain, not to exceed 3 doses/15 min--if pain persists, seek medical attention, # 100 tablet, 0 Refills, Maintenance, 12/19/22 9:51:00 EDT, Tablet, [facility]/pharmacy #[id number], Partial fill... Start Date: 12/19/22 Status: Ordered oxyCODONE 5 mg oral tablet 5 mg, 1, tablet, By Mouth, 2 times a day, PRN, # 56 tablet, Refills 0, Tot. Refills 0, Acute 06/28/24 12:36:00 EST, as needed for pain, 06/28/23 12:35:00 EST, Route to Pharmacy Electronically, [facility]/pharmacy #[id number], Partial fill upon patient request if t... Start Date: 06/28/23 Stop Date: 06/28/24 Status: Ordered pantoprazole 40 mg oral delayed release tablet 0 Refills, Maintenance, 03/21/23 14:39:00 EDT Start Date: 03/21/23 Status: Ordered rOPINIRole 0.5 mg oral tablet 1 tablet, By Mouth, 4 times a day, # 360 tablet, 1 Refills, Maintenance, 01/22/23 9:08:00 EDT, [facility], 157, cm, 12/28/22 14:14:00 EDT, Height, 94.3, kg, 01/19/22 4:25:00 EDT, Dry Weight Start Date: 01/22/23 Status: Ordered spironolactone 25 mg oral tablet 25 mg, 1, tablet, By Mouth, Daily, # 90 tablet, Refills 3, Tot. Refills 3, Maintenance, 10/09/22 15:42:00 EDT, Route to Pharmacy Electronically, [facility]/pharmacy #[id number], Partial fill upon patient request if the prescription is for a schedule II opioid drug... Start Date: 10/09/22 Stop Date: 10/04/23 Status: Ordered Problem List Condition Confirmation Course [...] Team Personnel Name: Estrellita Putnam RN Position: [facility] RN Member Role: Primary Care Nurse Name: Marlen Kenny RN Position: [facility] RN Member Role: Primary Care Nurse Name: Toshia Muhammad RN Position: [facility] RN Martha Member Role: Primary Care Nurse Name: Suleman Jones RN Position: [facility] RN Member Role: Primary Care Nurse Name: Kathy Medina RN Position: S RN Member Role: Primary Care Nurse Name: Marguerite Wang RN Position: S RN Member Role: Primary Care Nurse Name: Mick Tatum MD Position: [facility] Physician - Primary Care Member Role: PCP Address: Address: [address] [place] [id number]- [place] Name: Svitlana Clark RN Position: [facility] RN Member Role: Primary Care Nurse Name: Yoana Guevara RN Position: [facility] RN Member Role: Primary Care Nurse Name: Pierre Groves RN Position: [facility] RN Member Role: Primary Care Nurse Name: Carmen Murphy NP Position: [facility] PCO Associate Professional Member Role: Primary Care Nurse Address: Address: [address] [place] [address] - [place] [address]- Name: Rylie Ordonez RN Position: [facility] AMB Nurse Member Role: Primary Care Nurse Name: Marisa Negrete RN Position: [facility] SN RN Member Role: Primary Care Nurse Name: Aditi Brown RN Position: [facility] RN Member Role: Primary Care Nurse Name: Chana Cazares RN Position: [facility] RN Member Role: Primary Care Nurse Name: Toshia Urbina RN Position: [facility] RN Member Role: Primary Care Nurse Name: Isabel Gray Position: [facility] Inspector Coated Fabrics Member Role: Diploma Pharmacy Technician Name: Aniyah Sloan RN Position: [facility] SN RN Member Role: Primary Care Nurse Name: Rosemary Ramon RN Position: [facility] OB RN Member Role: Primary Care Nurse Name: Sneha Newton RN Position: [facility] Hospital Motor Tune Up Specialist Member Role: Primary Care Nurse Care Team Related Persons Name: CARLITOS CLAUDIA Address: home [address] [place], [place] Name: RALPH SÁNCHEZ Address: [address], [place] Name: DONY CARCAOM Address: home [address], [place]
--- OUTSIDE RECORDS SUMMARY | 2024-02-08 01:05 | XMS_ITS | Continuity of Care Document ---
Author Organization [facility] Gopi Jose lt Address [address] [place] [address]- Care Team Providers Care Blow Machine Tender Starch Spraying Name Role Phone Mick Tatum MD Primary Care Physician [phone] [place] [facility] [place]22 [facility] [place] Adult [address] [place] [address]- Attending Physician: Mick Tatum MD Allergies, Adverse Reactions, Alerts Substance Reaction Severity Status amoxicillin 1 Active Dust Active Other Environmental Allergy 2 Active Other Food Allergy 3 chicken, peppers, onions Resolved Benadryl Shaking Active Cats Active Contrast Dye Active egg-containing [...] 07/09/21 10:04:00 EST, Route to Pharmacy Electronically, [facility]/pharmacy #[id number], Partial fill upon patient request if the prescription is for a schedule II opioid drUriel.. Start Date: 07/09/21 Stop Date: 07/04/22 Status: Ordered Cosopt 2.23%-0.68% ophthalmic solution 1 drops, Eyes, Both, 2 times a day, # 10 mL, 0 Refills, Maintenance, 03/23/21 9:41:00 EDT, Solution, [facility]/pharmacy #[id number], Partial fill upon [...] # 180 tablet, 3 Refills, [facility], 158, cm, 06/09/21 10:14:00 EST, Height, 98.6, kg, 04/11/21 15:59:00 EDT, Dry Weight Start Date: 06/17/21 Status: Ordered empagliflozin 10 mg oral tablet 1 tablet = 10 mg, By Mouth, Daily in AM, # 90 tablet, 3 Refills, Maintenance, 06/09/21 12:06:00 EST, Tablet, [facility]/pharmacy #[id number], Partial fill upon [...] capsule, Refills 5, Route to Pharmacy Electronically, [facility], 159, cm, 12/21/21 15:41:00 EDT, Height, 93.6, kg, 01/06/22 9:12:00 EDT, Dry Weight Start Date: 01/17/22 Status: Ordered isosorbide mononitrate 30 mg oral tablet, extended release 1 tablet, By Mouth, Daily, for 90 days, # 90 tablet, 3 Refills, Physician Stop 04/20/22 16:32:00 EDT, 04/25/21 16:32:00 EDT, [id number], 158, cm, 04/25/21 14:49:00 EDT, Height, 98.6, kg, 04/11/21 15:59:00 EDT, Dry Weight Start Date: 04/25/21 Stop Date: 04/20/22 Status: Ordered latanoprost 0.005% ophthalmic solution See Instructions, INSTILL 1 DROP IN BOTH EYES DAILY BEFORE DINNER, # 2.5 mL, 0 Refills, [facility], 18, INSTILL 1 DROP IN BOTH EYES DAILY BEFORE DINNER, 158, cm, 04/14/21 11:28:00 EDT, Height, 98.6, kg, 04/11/21 15:59:00 EDT, Dry Weight Start Date: 04/14/21 Status: Ordered Lipitor 40 mg oral tablet 1 tablet = 40 mg, By Mouth, Daily at bedtime, # 30 tablet, 5 Refills, Maintenance, 04/28/21 6:50:00EDT, Tablet, [id number], Partial fill upon patient request if the prescription is for a schedule II opioid drug., 158, cm, 04/25/21 14:49:00 ED... Start Date: 04/28/21 Status: Ordered Metoprolol Succinate ER 25 mg oral tablet, extended release 1 tablet, By Mouth, Daily, # 90 tablet, 2 Refills, [facility], 159, cm, 12/21/21 15:41:00 EDT,Height, 93.6, kg, [...] a day, # 360 tablet, 1 Refills, [facility], 159, cm, 11/14/21 9:20:00 EDT, Height, 98, kg, 07/06/21 19:57:00 EST, Dry Weight Start Date: 11/22/21 Status: Ordered spironolactone 25 mg oral tablet 25 mg, 1, tablet, By Mouth, Daily, # 90 tablet, Refills 3, Tot. Refills 3, Maintenance, 11/14/21 9:55:00 EDT, Route to Pharmacy Electronically, [facility]/pharmacy #[id number], Partial fill upon patient request if the prescription is for a schedule II opioid drug.... Start Date: 11/14/21 Stop Date: 11/09/22 Status: Ordered torsemide 20 mg oral tablet 2 tablet = 40 mg, By Mouth, Daily, HOLD FOR NEXT 5 DAYS, THEN GET BLOOD WORK AND RESTART AFTER DISCUSSING WITH PCP, # 90 tablet, 1 Refills, 12/13/21 10:45:00 EDT, [facility]/pharmacy #[id number], 159, cm, 12/13/21 [...] oldest [Reference Range]: 1 Height 157 cm (03/10/22 4:07 PM) Weight 92.09 kg (03/10/22 4:07 PM) Oxygen Saturation [94-100 %] 95 % (03/10/22 4:07 PM) Pulse Rate [55-90 bpm] 66 bpm (03/10/22 4:07 PM) Body Mass Index [18.5-24.99] 37.36 *>HHI* (03/10/22 4:07 PM) Blood Pressure [90-138/55-84 mm Hg] 113/ 57mm Hg (03/10/22 4:07 PM) Respiratory Rate [16-30 br/min] 16 br/mi n (03/10/22 4:07 PM) Temperature [96.8-100.4 DegF] 97.2 DegF (03/10/22 4:07 PM) Mode of Delivery (Oxygen) Room air (03/10/22 4:07 PM) Blood pressure sites Arm, right (03/10/22 4:07 PM) Temperature Route Oral (03/10/22 4:07 PM) Weight Obtained Via Standing scale (03/10/22 4:07 PM) Social History Social History Type Response Smoking Status Never (less than 100 in lifetime) entered on: 06/27/18 Sex Care Team Personnel Name: Mick Tatum MD Address: [address] [place] [phone]
--- OUTSIDE RECORDS SUMMARY | 2024-02-08 01:05 | XMS_ITS | Continuity of Care Document ---
Author Organization [facility] Jose lt Address [address] [place] [address]- Care Team Providers Care Manager Production Name Role Phone Rc CORDERO, Mick Clay Primary Care Physician [place] [facility] [place]/20 [facility] Adult [address] [place] [address]- Allergies, Adverse Reactions, Alerts Substance Reaction Severity [...] 03/30/20 8:48:00 EDT, [id number], cm, 03/11/20 12:49:00 EDT, [...] Refills, Maintenance, 10/07/19 10:56:00 EDT, Gel, [facility]/pharmacy #[id number], 160, cm, 08/19/19 8:02:00 EST, Height Start Date: 10/07/19 Status: Ordered Eliquis 5 mg oral tablet 1 tablet, By Mouth, 2 times a day, # 180 tablet, 3 Refills, Maintenance, 07/12/20 14:12:00 EST, [facility], 157, cm, 05/07/20 11:34:00 EDT, Height, 91, kg, 02/28/20 22:14:00 EDT, Dry Weight Start Date: 07/12/20 Status: Ordered gabapentin 400 mg oral capsule 400 mg, 1, capsule, By Mouth, 3 times a day, # 270 capsule, Refills 2, Tot. Refills 2, Maintenance,03/30/20 8:48:00 EDT, [id number], cm, 03/11/20 12:49:00 EDT, [...]
--- OUTSIDE RECORDS SUMMARY | 2024-02-08 01:05 | XMS_ITS | Continuity of Care Document ---
Author Organization [facility] [place] Jose Address [address] [place] [address]- Care Team Providers Care Education Manager Name Role Phone Mick Tatum MD Primary Care Physician [place] [facility] [place] 12[place]13/20 [facility] [place] Adult [address] [place] [address]- Attending Physician: Mick Tatum MD Allergies, Adverse [...] 03/30/20 8:48:00 EDT, Route to Pharmacy Electronically, [facility]/pharmacy #[id number], 157, cm, 03/11/20 12:49:00 EDT, Height, 91, kg, 02/28/20 22:14:00 EDT, Dry Weight Start Date: 03/30/20 Stop Date: 03/25/21 Status: Ordered aspirin 81 mg oral delayed release tablet 81 mg, 1, tablet, By Mouth, Daily, # 30 tablet, Refills 0, Tot. Refills 0, Maintenance, 09/20/20 14:38:00 EST, Route to Pharmacy Electronically, [facility]/pharmacy #[id number], Partial fill upon patient request if the prescription is for a schedule II opioid drug... Start Date: 09/20/20 Status: Ordered budesonide 3 mg oral delayed release capsule 1 capsule = 3 mg, By Mouth, Daily in AM, # 30 capsule, 5 Refills, Acute 02/27/21 10:03:00 EDT, 11/25/20 10:36:00 EDT, [id number], Partial fill upon patient [...] 3 Refills, Maintenance, 07/12/20 14:12:00 EST, [facility], 157, cm, 05/07/20 11:34:00 EDT, Height, 91, [...] 0 Refills, Maintenance, 08/30/20 10:02:00 EST, Tablet, [facility]/pharmacy #[id number], Partial fill upon patient request, 157, cm, 08/30/20 7:27:00 EST, Height, 91, kg, 02/28/20 22:... Start Date: 08/30/20 Status: Ordered metoprolol 25 mg oral tablet, extended release 25 mg, 1, tablet, By Mouth, Daily, # 30 tablet, Refills 5, Tot. Refills 5, Maintenance, 12/06/20 13:03:00 EDT, Route to Pharmacy Electronically, [facility]/pharmacy #[id number], Partial fill upon patient request if the prescription is for a schedule II opioid drug... Start Date: 12/06/20 Stop Date: 06/04/21 Status: Ordered predniSONE 5 mg oral tablet See Instructions, Take 8 pills (40 mg) a day for five days then decrease by one pill every 5 days.,# 180 tablet, 0 Refills, Maintenance, 11/25/20 12:14:00 EDT, Tablet, [facility]/pharmacy #[id number], Partial fill upon patient request if the prescription is for a... Start Date: 11/25/20 Status: Ordered Requip 0.5 mg oral tablet [...] tablet, 0 Refills,Soft Stop, 10/21/20 16:26:00 EDT, [facility]/pharmacy #[id number], Partial fill upon patient [...] oldest [Reference Range]: 1 Height 157 cm (12/06/20 8:20 AM) Weight 100.0 kg (12/06/20 8:20 AM) Oxygen Saturation [94-100 %] 97 % (12/06/20 8:20 AM) Pulse Rate [55-90 bpm] 72 bpm (12/06/20 8:20 AM) Body Mass Index [18.5-24.99] 40.57 *>HHI* (12/06/20 8:20 AM) Blood Pressure [90-138/55-84 mm Hg] 130/ 80mm Hg (12/06/20 8:20 AM) Temperature [96.8-100.4 DegF] 97.8 DegF (12/06/20 8:20 AM) Mode of Delivery (Oxygen) Room air (12/06/20 8:20 AM) Blood pressure sites Arm, left (12/06/20 8:20 AM) Temperature Route Oral (12/06/20 8:20 AM) Weight Obtained Via Standing scale (12/06/20 8:20 AM) Social History Social History Type Response Smoking Status Never (less than 100 in lifetime) entered on: 06/27/18 Sex Female
--- OUTSIDE RECORDS SUMMARY | 2024-02-08 01:05 | XMS_ITS | Continuity of Care Document ---
Author Organization [facility] Gopi Jose lt Address [address] [place] [address]- Care Team Providers Care Tool Mechanic Name Role Phone Mick Tatum MD Primary Care Physician [phone] En[place] [facility] [place] Date(s): 01/24/22 - 02/23/22 [facility] Adult [address] [place] [address]- Allergies, Adverse Reactions, Alerts Substance Reaction Severity [...] 07/09/21 10:04:00 EST, Route to Pharmacy Electronically, [facility]/pharmacy #[id number], Partial fill upon patient request if the prescription is for a schedule II opioid drUriel.. Start Date: 07/09/21 Stop Date: 07/04/22 Status: Ordered Cosopt 2.23%-0.68% ophthalmic solution 1 drops, Eyes, Both, 2 times a day, # 10 mL, 0 Refills, Maintenance, 03/23/21 9:41:00 EDT, Solution, [facility]/pharmacy #[id number], Partial fill upon patient request if the prescription is for a schedule II opioid drug., 1 drops Eyes, Both 2 times a day, 159, cm... Start Date: 03/23/21 Status: Ordered diclofenac 1% topical gel 1 application, Topically, 4 times a day, # 100 Gm, 5 Refills, Maintenance, 10/07/19 10:56:00 EDT, Gel, [facility]/pharmacy #[id number], 160, cm, 08/19/19 8:02:00 EST, Height Start Date: 10/07/19 Status: Ordered Eliquis 5 mg oral tablet 1 tablet, By Mouth, 2 times a day, # 180 tablet, 3 Refills, [facility], 158, cm, 06/09/21 10:14:00 EST, Height, 98.6, kg, 04/11/21 15:59:00 EDT, Dry Weight Start Date: 06/17/21 Status: Ordered empagliflozin 10 mg oral tablet 1 tablet = 10 mg, By Mouth, Daily in AM, # 90 tablet, 3 Refills, Maintenance, 06/09/21 12:06:00 EST, Tablet, [facility]/pharmacy #[id number], Partial fill upon patient request [...] 5, Route to Pharmacy Electronically, [facility], 159, cm, 12/21/21 15:41:00 EDT, Height, 93.6, [...] # 2.5 mL, 0 Refills, [facility], 18, INSTILL 1 DROP IN BOTH EYES [...] # 90 tablet, 2 Refills, [facility], 159, cm, 12/21/21 15:41:00 EDT,Height, 93.6, kg, [...] a day, # 360 tablet, 1 Refills, [facility], 159, cm, 11/14/21 9:20:00 EDT, Height, 98, kg, 07/06/21 19:57:00 EST, Dry Weight Start Date: 11/22/21 Status: Ordered spironolactone 25 mg oral tablet 25 mg, 1, tablet, By Mouth, Daily, # 90 tablet, Refills 3, Tot. Refills 3, Maintenance, 11/14/21 9:55:00 EDT, Route to Pharmacy Electronically, [facility]/pharmacy #[id number], Partial fill upon patient request if the prescription is for a schedule II opioid drug.... Start Date: 11/14/21 Stop Date: 11/09/22 Status: Ordered torsemide 20 mg oral tablet 2 tablet = 40 mg, By Mouth, Daily, HOLD FOR NEXT 5 DAYS, THEN GET BLOOD WORK AND RESTART AFTER DISCUSSING WITH PCP, # 90 tablet, 1 Refills, 12/13/21 10:45:00 EDT, [facility]/pharmacy #[id number], 159, cm, 12/13/21 10:22:00 EDT, Height, 97, kg, 12/09/21 12:44:00 ED... Start Date: 12/13/21 Status: Ordered torsemide 40 mg oral tablet 2 tablet = 80 mg, By Mouth, Daily, 0 Refills, Maintenance, 02/02/22 14:24:00 EDT, Partial fill uponpatient request if the prescription is for a schedule II opioid drug. Start Date: 02/02/22 Status: Ordered VITAMIN B-1 100 MG TABLET [...]
--- OUTSIDE RECORDS SUMMARY | 2024-02-08 01:05 | XMS_ITS | Continuity of Care Document ---
Author Organization [facility] Gopi Jose lt Address [address] [place] [address]- Care Team Providers Care Epic Director Name Role Phone Mick Tatum MD Primary Care Physician [phone] [place] [facility] [place]/14/20 - 07/21/20 [facility] Adult [address] [place] [address]- Attending Physician: Mick Tatum MD Allergies, Adverse [...] 2Location History: DR LOAIZA 3Location History: DR FADIA 4Location History: DR LOAIZA Medications amLODIPine 5 mg oral tablet 5 mg, 1, tablet, By Mouth, Daily, # 90 tablet, Refills 3, Tot. Refills 3, Maintenance, 03/30/20 8:48:00 EDT, Route to Pharmacy Electronically, [facility]/pharmacy #[id number], 157, cm, 03/11/20 12:49:00 EDT, Height, 91, kg, 02/28/20 22:14:00 EDT, Dry Weight Start Date: 03/30/20 Stop Date: 03/25/21 Status: Ordered Cosopt ophthalmic solution 1 drops, Eyes, Both, 2 times a day, 0 Refills Start Date: 02/09/09 Status: Ordered diclofenac 1% topical gel 1 application, Topically, 4 times a day, # 100 Gm, 5 Refills, Maintenance, 10/07/19 10:56:00 EDT, Gel, [facility]/pharmacy #[id number], 160, cm, 08/19/19 8:02:00 EST, Height Start Date: 10/07/19 Status: Ordered Eliquis 5 mg oral tablet 1 tablet, By Mouth, 2 times a day, # 180 tablet, 3 Refills, Maintenance, 07/12/20 14:12:00 EST, [facility], 157, cm, 05/07/20 11:34:00 EDT, Height, 91, kg, 02/28/20 22:14:00 EDT, Dry Weight Start Date: 07/12/20 Status: Ordered gabapentin 400 mg oral capsule 400 mg, 1, capsule, By Mouth, 3 times a day, # 270 capsule, Refills 2, Tot. Refills 2, Maintenance,03/30/20 8:48:00 EDT, Route to Pharmacy Electronically, [facility]/pharmacy #[id number], 157, cm, 03/11/20 12:49:00 EDT, Height, 91, kg, 02/28/20 22:14:00 EDT, Dry... Start Date: 03/30/20 Stop Date: 12/25/20 Status: Ordered HYDROmorphone 2 mg oral tablet 1 tablet = 2 mg, By Mouth, Every 8 hours, PRN as needed for pain, # 20 tablet, 0 Refills, Maintenance, 07/14/20 8:36:00 EST, Tablet, [facility]/pharmacy #[id number], Partial fill upon patient request, 157, [...] oldest [Reference Range]: 1 Height 157 cm (07/14/20 7:46 AM) Social History Social History Type Response Smoking Status Never (less than 100 in lifetime) entered on: 06/27/18 Sex
--- OUTSIDE RECORDS SUMMARY | 2024-02-08 01:05 | XMS_ITS | Continuity of Care Document ---
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 Adult [address] [place] [address]- [facility] Attending Physician: Ignacio Parish MD [...] 2Location History: DR LOAIZA 3Location History: DR OLAIZA 4Location History: DR LOAIZA Medications amLODIPine 5 mg oral tablet 5 mg, 1, tablet, By Mouth, Daily, # 90 tablet, Refills 3, Tot. Refills 3, Maintenance, 03/30/20 8:48:00 EDT, Route to Pharmacy Electronically, [facility]/pharmacy #[id number], 157, cm, 03/11/20 12:49:00 EDT, Height, 91, kg, 02/28/20 22:14:00 EDT, Dry Weight Start Date: 03/30/20 Stop Date: 03/25/21 Status: Ordered cephalexin monohydrate 500 mg oral capsule 1 capsule = 500 mg, By Mouth, 4 times a day, for 28 days, # 112 capsule, 1 Refills, Acute 06/18/20 11:43:00 EST, 04/23/20 11:43:00 EDT, Capsule, [facility]/pharmacy #[id number], 157, cm, 04/23/20 11:28:00 EDT, Height, [...] 180 tablet, Refills 3 Tot. Refills 3, [facility]/pharmacy #[id number] Start Date: 06/17/19 Status: Ordered gabapentin 400 mg oral capsule 400 mg, 1, capsule, By Mouth, 3 times a day, # 270 capsule, Refills 2, Tot. Refills 2, Maintenance,03/30/20 8:48:00 EDT, Route to Pharmacy Electronically, [facility]/pharmacy #[id number], 157, cm, 03/11/20 12:49:00 EDT, Height, 91, kg, 02/28/20 22:14:00 EDT, Dry... Start Date: 03/30/20 Stop Date: 12/25/20 Status: Ordered HYDROmorphone 2 mg oral tablet 1 tablet = 2 mg, By Mouth, Every 8 hours, PRN as needed for pain, # 20 tablet, 0 Refills, Maintenance, 05/07/20 13:21:00 EDT, [facility]t, [id number], Partial fill upon [...] oldest [Reference Range]: 1 Height 157 cm (05/07/20 11:34 AM) Social History Social History Type Response Smoking Status Never (less than 100 in lifetime) entered on: 06/27/18 Sex
--- OUTSIDE RECORDS SUMMARY | 2024-02-08 01:05 | XMS_ITS | Continuity of Care Document ---
Author Organization [facility] Gopi Jose lt Address [address] [place] [address]- Care Team Providers Care Service Center Manager Name Role Phone Mick Tatum MD Primary Care Physician [phone] Encounter [facility] [place] Date(s): 01/18/22 - 02/17/22 [facility] Adult [address] [place] [address]- Allergies, Adverse Reactions, Alerts Substance Reaction Severity [...] 07/09/21 10:04:00 EST, Route to Pharmacy Electronically, [facility]/pharmacy #[id number], Partial fill upon patient request if the prescription is for a schedule II opioid drUriel.. Start Date: 07/09/21 Stop Date: 07/04/22 Status: Ordered Cosopt 2.23%-0.68% ophthalmic solution 1 drops, Eyes, Both, 2 times a day, # 10 mL, 0 Refills, Maintenance, 03/23/21 9:41:00 EDT, Solution, [facility]/pharmacy #[id number], Partial fill upon patient request if the prescription is for a schedule II opioid drug., 1 drops Eyes, Both 2 times a day, 159, cm... Start Date: 03/23/21 Status: Ordered diclofenac 1% topical gel 1 application, Topically, 4 times a day, # 100 Gm, 5 Refills, Maintenance, 10/07/19 10:56:00 EDT, Gel, [facility]/pharmacy #[id number], 160, cm, 08/19/19 8:02:00 EST, Height Start Date: 10/07/19 Status: Ordered Eliquis 5 mg oral tablet 1 tablet, By Mouth, 2 times a day, # 180 tablet, 3 Refills, [facility], 158, cm, 06/09/21 10:14:00 EST, Height, 98.6, kg, 04/11/21 15:59:00 EDT, Dry Weight Start Date: 06/17/21 Status: Ordered empagliflozin 10 mg oral tablet 1 tablet = 10 mg, By Mouth, Daily in AM, # 90 tablet, 3 Refills, Maintenance, 06/09/21 12:06:00 EST, Tablet, [facility]/pharmacy #[id number], Partial fill upon patient request if [...] 5, Route to Pharmacy Electronically, [facility], 159, cm, 12/21/21 15:41:00 EDT, Height, 93.6, [...] # 2.5 mL, 0 Refills, [facility], 18, INSTILL 1 DROP IN BOTH EYES [...] # 90 tablet, 2 Refills, [facility], 159, cm, 12/21/21 15:41:00 EDT,Height, 93.6, kg, [...] a day, # 360 tablet, 1 Refills, [facility], 159, cm, 11/14/21 9:20:00 EDT, Height, 98, kg, 07/06/21 19:57:00 EST, Dry Weight Start Date: 11/22/21 Status: Ordered spironolactone 25 mg oral tablet 25 mg, 1, tablet, By Mouth, Daily, # 90 tablet, Refills 3, Tot. Refills 3, Maintenance, 11/14/21 9:55:00 EDT, Route to Pharmacy Electronically, [facility]/pharmacy #[id number], Partial fill upon patient request if the prescription is for a schedule II opioid drug.... Start Date: 11/14/21 Stop Date: 11/09/22 Status: Ordered torsemide 20 mg oral tablet 2 tablet = 40 mg, By Mouth, Daily, HOLD FOR NEXT 5 DAYS, THEN GET BLOOD WORK AND RESTART AFTER DISCUSSING WITH PCP, # 90 tablet, 1 Refills, 12/13/21 10:45:00 EDT, [facility]/pharmacy #[id number], 159, cm, 12/13/21 10:22:00 EDT, Height, [...]
--- OUTSIDE RECORDS SUMMARY | 2024-02-08 01:05 | XMS_ITS | Continuity of Care Document ---
Author Organization [facility] Jose lt Address [address] [place] [address]- Care Team Providers Care Clam Sorter Name Role Phone Ignacio Parish MD Primary Care Physician [phone] Encounter [facility] [place] Date(s): 10/21/19 - 10/28/19 [facility] Adult [address] [place] [address]- [facility] Attending Physician: Ignacio Parish MD [...] 5 Refills, Maintenance, 10/07/19 10:56:00 EDT, Gel, [facility]/pharmacy #[id number], 160, cm, 08/19/19 8:02:00 EST, Height Start Date: 10/07/19 Status: Ordered Eliquis 5 mg oral tablet 1 tablet, By Mouth, 2 times a day, # 180 tablet, Refills 3 Tot. Refills 3, [facility]/pharmacy #[id number] Start Date: 06/17/19 Status: Ordered ferrous sulfate 325 mg oral enteric coated tablet 325 mg, 1, tablet, By Mouth, Daily, # 30 tablet, Refills 0, Maintenance, 01/13/19 10:24:03 EDT Start Date: 01/13/19 Status: Ordered Flonase 50 mcg/inh nasal spray 2 sprays, Nares, Both, Daily, # 16 Gm, 0 Refills, Maintenance, 10/07/19 14:19:00 EDT, [facility]/pharmacy #7111, 2 sprays Nares, Both Daily, 160, cm, 08/19/19 8:02:00 EST, Height Start Date: 10/07/19 Status: Ordered gabapentin 300 mg oral capsule 300 mg, 1, capsule, By Mouth, 3 times a day, # 90 capsule, Refills 2, Tot. Refills 2, Maintenance, 03/20/19 12:07:35 EDT, Route to Pharmacy Electronically, [id number], [facility]/pharmacy #[id number] Start Date: 03/20/19 Status: Ordered [...] capsule, 0 Refills, Maintenance, 10/07/19 14:22:00 EDT, [facility]/pharmacy #[id number], 160, cm, 08/19/19 8:02:00 EST, Height Start Date: 10/07/19 Status: Ordered predniSONE 20 mg oral tablet 2 tablet = 40 mg, By Mouth, Daily, # 14 tablet, 0 Refills, Maintenance, 10/21/19 11:44:00 EDT, [facility]/pharmacy #[id number], 160, cm, 08/19/19 8:02:00 EST, Height Start Date: 10/21/19 Status: Ordered Requip 0.5 mg oral tablet [...]
--- OUTSIDE RECORDS SUMMARY | 2024-02-08 01:05 | XMS_ITS | Continuity of Care Document ---
Author Organization [facility] Address [address] [place] [address]- Care Team Providers Care Radio Electronics Officer Name Role Phone Марина CORDERO, Ignacio New Primary Care Physician Encounter [facility] Date(s): 03/24/20 - 04/23/20 [facility] [address] [place] [id number]- [facility] Allergies, Adverse Reactions, Alerts Substance Reaction Severity [...] 03/30/20 8:48:00 EDT, Route to Pharmacy Electronically, [facility]/pharmacy #[id number], 157, cm, 03/11/20 12:49:00 EDT, Height, 91, kg, 02/28/20 22:14:00 EDT, Dry Weight Start Date: 03/30/20 Stop Date: 03/25/21 Status: Ordered cephalexin monohydrate 500 mg oral capsule 1 capsule = 500 mg, By Mouth, 4 times a day, for 28 days, # 112 capsule, 1 Refills, Acute 06/18/20 11:43:00 EST, 04/23/20 11:43:00 EDT, Capsule, [facility]/pharmacy #[id number], 157, cm, 04/23/20 11:28:00 EDT, Height, 91, kg, 02/28/20 22:14:00 EDT, Dry Weight Start Date: 04/23/20 Stop Date: 06/18/20 Status: Ordered Cosopt ophthalmic solution 1 drops, Eyes, Both, 2 times a day, 0 Refills Start Date: 02/09/09 Status: Ordered diclofenac 1% topical gel 1 application, Topically, 4 times a day, # 100 Gm, 5 Refills, Maintenance, 10/07/19 10:56:00 EDT, Gel, [facility]/pharmacy #[id number], 160, cm, 08/19/19 8:02:00 [...] 03/10/20 10:49:00 EDT, [id number], cm, 03/10/20 8:47:00 EDT, Height, 91, kg, 02/28/20 22:14:00 EDT, Dry W... Start Date: 03/10/20 Status: Ordered Eliquis 5 mg oral tablet 1 tablet, By Mouth, 2 times a day, # 180 tablet, Refills 3 Tot. Refills 3, [facility]/pharmacy #[id number] Start Date: 06/17/19 Status: Ordered gabapentin 400 mg oral capsule 400 mg, 1, capsule, By Mouth, 3 times a day, # 21 capsule, Refills 0, Tot. Refills 0, Maintenance, 03/10/20 10:48:00 EDT, Route to Pharmacy Electronically, [facility]/pharmacy #[id number], 157, cm, 03/10/20 8:47:00 EDT, Height, 91, kg, 02/28/20 22:14:00 EDT, Dry W... Start Date: 03/10/20 Stop Date: 03/17/20 Status: Ordered gabapentin 400 mg oral capsule 400 mg, 1, capsule, By Mouth, 3 times a day, # 270 capsule, Refills 2, Tot. Refills 2, Maintenance,03/30/20 8:48:00 EDT, [id number], cm, 03/11/20 12:49:00 EDT, Height, 91, kg, 02/28/20 22:14:00 EDT, Dry... Start Date: 03/30/20 Stop Date: 12/25/20 Status: Ordered HYDROmorphone 2 mg oral tablet 1 tablet = 2 mg, By Mouth, Every 6 hours, PRN as needed for pain, # 28 tablet, 0 Refills, Maintenance, 03/11/20 15:06:00 EDT, Tablet, [facility]/pharmacy #[id number], Partial fill upon patient [...] 03/10/20 10:51:00 EDT, Route to Pharmacy Electronically, [facility]/pharmacy #[id number], 157, cm, 03/10/20 8:47:00 EDT, [...]
--- OUTSIDE RECORDS SUMMARY | 2024-02-08 01:05 | XMS_ITS | Continuity of Care Document ---
Author Organization [facility] Address [address] [place] [id number]- Care Team Providers Care Power Tong Operator Name Role Phone Ignacio Parish MD Primary Care Physician [id number] Date(s): 08/19/19 - 08/26/19 [facility] [address] [place] [address]- [facility] Encounter Diagnosis Right buttock pain(Discharge Diagnosis) - 08/19/19 Numbness and tingling of both feet(Discharge Diagnosis) - 08/19/19 Attending Physician: Demar Anne MD Referring Physician: Ignacio Parish MD Allergies, Adverse Reactions, [...] 1 Refills, Maintenance, 08/02/19 11:53:00 EST, Gel, [facility]/pharmacy #[id number], 160, cm, 07/01/19 10:58:00 EST, Height Start Date: 08/02/19 Status: Ordered Eliquis 5 mg oral tablet 1 tablet, By Mouth, 2 times a day, # 180 tablet, Refills 3 Tot. Refills 3, [facility]/pharmacy #[id number] Start Date: 06/17/19 Status: Ordered ferrous [...] 03/20/19 12:07:35 EDT, Route to Pharmacy Electronically, [id number], [facility]/pharmacy #[id number] Start Date: 03/20/19 Status: Ordered Lialda [...] Active Vertigo(Confirmed) Active 1RT LEG 2BILATERAL KNEES Diagnosis Diagnosis Type Effective Dates Health Status Cl inical Service Informant Right buttock pain Discharge Diagnosis 08/19/19 Numbness and tingling of both feet Discharge Diagnosis 08/19/19 Vital Signs Most recent to oldest [Reference Range]: 1 Height 160.00 cm (08/19/19 8:02 AM) Weight 90.3 kg (08/19/19 8:02 AM) Oxygen Saturation [94-100 %] 97 % (08/19/19 8:02 AM) Pulse Rate [55-90 bpm] 80 bpm (08/19/19 8:02 AM) Body Mass Index [18.5-24.99] 35.27 *>HHI* (08/19/19 8:02 AM) Blood Pressure [90-138/55-84 mm Hg] 157/ 90mm Hg *H* (08/19/19 8:02 AM) Temperature [96.8-100.4 DegF] 97.5 DegF (08/19/19 8:02 AM) Blood pressure sites Arm, left (08/19/19 8:02 AM) Temperature Route Temporal (08/19/19 8:02 AM) Social History Social History Type Response Smoking Status Never (less than 100 in lifetime) entered on: 06/27/18 Sex
--- OUTSIDE RECORDS SUMMARY | 2024-02-08 01:05 | XMS_ITS | Continuity of Care Document ---
Author Organization [facility] Address [address] [place] [address]- Care Team Providers Care Physician Underwriter Name Role Phone Mick Tatum MD Primary Care Physician Encounter [facility] Date(s): 12/05/22 - 01/04/23 [facility] Adult [address] [place] [address]- Allergies, Adverse Reactions, Alerts Substance Reaction Severity [...] Given Parent Or Guardian Refuses 1Result Comment: [id number] 2Location History: DR LOAIZA 3Location History: DR LOAIZA 4Location History: DR LOAIZA 5Location History: DR LOAIZA Medications atorvastatin 40 mg oral tablet 1 tablet, By Mouth, Daily at bedtime, # 90 tablet, 3 Refills, Maintenance, 05/13/22 7:24:00 EDT, [facility], 157, cm, 05/12/22 13:47:00 EDT, Height, 94.3, kg, 01/19/22 4:25:00 EDT, Dry Weight Start Date: 05/13/22 Status: Ordered budesonide 3 mg oral delayed release capsule 1 capsule = 3 mg, By Mouth, Daily in AM, # 90 capsule, 2 Refills, Acute 01/18/23 6:58:00 EDT, 01/18/22 6:58:00 EDT, CR Capsule, [facility]/pharmacy #[id number], Partial fill upon patient request if the prescription is for a schedule II opioid drug., 159, cm, 12/21... Start Date: 01/18/22 Stop Date: 01/18/23 Status: Ordered Eliquis 5 mg oral tablet 1 tablet, By Mouth, 2 times a day, # 180 tablet, 3 Refills, Maintenance, 05/27/22 16:57:00 EDT, [facility], 157, cm, 05/12/22 13:47:00 EDT, Height, 94.3, kg, 01/19/22 4:25:00 EDT, Dry Weight Start Date: 05/27/22 Status: Ordered isosorbide mononitrate 60 mg oral tablet, extended release 60 mg, 1, tablet, By Mouth, 2 times a day, # 180 tablet, Refills 3, Tot. Refills 3, Maintenance, 07/10/22 16:07:00 EST, Route to Pharmacy Electronically, [facility]/pharmacy #[id number], Partial fill upon patientrequest if the prescription is for a schedule II op... Start Date: 07/10/22 Status: Ordered Metoprolol Succinate ER 25 mg oral tablet, extended release 1 tablet, By Mouth, Daily, # 90 tablet, 3 Refills, 09/30/22 20:06:00 EST, [facility]/pharmacy #[id number], 157, cm, 09/15/22 11:19:00 EST, Height, 94.3, kg, 01/19/22 4:25:00 EDT, Dry Weight Start Date: 09/30/22 Status: Ordered nitroglycerin 0.4 mg sublingual tablet 1 tablet = 0.4 mg, Sublingual, Every 5 minutes, PRN as needed for chest pain, not to exceed 3 doses/15 min--if pain persists, seek medical attention, # 100 tablet, 0 Refills, Maintenance, 12/19/22 9:51:00 EDT, Tablet, [facility]/pharmacy #[id number], Partial fill... Start Date: 12/19/22 Status: Ordered rOPINIRole 0.5 mg oral tablet 1 tablet, By Mouth, 4 times a day, # 360 tablet, 1 Refills, Maintenance, 07/25/22 9:33:00 EST, [facility] STORE 63877, 157, cm, 07/10/22 15:50:00 EST, Height, 94.3, kg, 01/19/22 4:25:00 EDT, Dry Weight Start Date: 07/25/22 Status: Ordered spironolactone 25 mg oral tablet 25 mg, 1, tablet, By Mouth, Daily, # 90 tablet, Refills 3, Tot. Refills 3, Maintenance, 10/09/22 15:42:00 EDT, Route to Pharmacy Electronically, [facility] [...] Stop 07/26/23 8:14:00 EST, 07/31/22 8:14:00 EST, [facility]/pharmacy #[id number], 157, cm, 07/27/22 15:56:00 [...] Team Personnel Name: Lisa Carlson RN Position: [facility] RN Member Role: Primary Care Nurse Name: Estrellita Putnam RN Position: [facility] RN Member Role: Primary Care Nurse Name: Marlen Kenny RN Position: [facility] RN Member Role: Primary Care Nurse Name: Toshia Muhammad RN Position: [facility] RN Martha Member Role: Primary Care Nurse Name: Suleman Jones RN Position: [facility] RN Member Role: Primary Care Nurse Name: Kathy Medina RN Position: [facility] RN Member Role: Primary Care Nurse Name: Mick Tatum MD Position: [facility] Physician - Primary Care Member Role: PCP Address: Address: [address] [place] [address]- Name: Svitlana Clark RN Position: [facility] RN Member Role: Primary Care Nurse Name: Yoana Guevara RN Position: [facility] RN Member Role: Primary Care Nurse Name: Pierre Groves RN Position: [facility] RN Member Role: Primary Care Nurse Name: Carmen Murphy RN Position: [facility] RN Member Role: Primary Care Nurse Name: Rylie Ordonez RN Position: [facility] AMB Nurse Member Role: Primary Care Nurse Name: Aditi Brown RN Position: [facility] RN Member Role: Primary Care Nurse Name: Chana Cazares RN Position: [facility] RN Member Role: Primary Care Nurse Name: Toshia Urbina RN Position: [facility] RN Member Role: Primary Care Nurse Name: Aniyah Sloan RN Position: [facility] SN RN Member Role: Primary Care Nurse Name: Rosemary Ramon RN Position: [facility] OB RN Member Role: Primary Care Nurse Name: Sneha Newton RN Position: [facility] Director Of Pediatric Rehabilitation Member Role: Primary Care Nurse Care Team Related Persons Name: CLAUDIA URBINA Address: [address] [place], [place] Name: RALPH SÁNCHEZ Address: [address] [place], [place] Name: DONY CARCAMO Address: [address] [place] [address]
--- OUTSIDE RECORDS SUMMARY | 2024-02-08 01:05 | XMS_ITS | Continuity of Care Document ---
Author Organization [facility] Address [address] [place] [address]- Care Team Providers Care Insect Control Inspector Name Role Phone Mick Tatum MD Primary Care Physician [place] [facility] Date(s): 10/30/22 - 11/29/22 [facility] [address] [place] [address]- Allergies, Adverse Reactions, Alerts Substance Reaction Severity [...] Given Parent Or Guardian Refuses 1Result Comment: [id number] 2Location History: DR LOAIZA 3Location History: DR LOAIZA 4Location History: DR LOAIZA 5Location History: DR LOAIZA Medications atorvastatin 40 mg oral tablet 1 tablet, By Mouth, Daily at bedtime, # 90 tablet, 3 Refills, Maintenance, 05/13/22 7:24:00 EDT, [facility], 157, cm, 05/12/22 13:47:00 EDT, Height, 94.3, [...] 5 Refills, Maintenance, 05/13/22 9:34:00 EDT, Gel, [facility]/pharmacy #[id number], 157, cm, 05/12/22 13:47:00 EDT, Height, 94.3, kg, 01/19/22 4:25:00 EDT, Dry Weight Start Date: 05/13/22 Status: Ordered Eliquis 5 mg oral tablet 1 tablet, By Mouth, 2 times a day, # 180 tablet, 3 Refills, Maintenance, 05/27/22 16:57:00 EDT, [facility], 157, cm, 05/12/22 13:47:00 EDT, Height, 94.3, kg, 01/19/22 4:25:00 EDT, Dry Weight Start Date: 05/27/22 Status: Ordered empagliflozin 10 mg oral tablet 1 tablet = 10 mg, By Mouth, Daily in AM, # 90 tablet, 3 Refills, Maintenance, 06/09/22 12:36:00 EST, Tablet, [facility]/pharmacy #[id number], Partial [...] 08/28/22 15:05:00 EST, Route to Pharmacy Electronically, [facility]/pharmacy #[id number], 157, cm, 07/27/22 15:56:00 EST, Height, 94.3, kg, 01/19/22 4:25:00 EDT, Dry Weight Start Date: 08/28/22 Status: Ordered isosorbide mononitrate 60 mg oral tablet, extended release 60 mg, 1, tablet, By Mouth, 2 times a day, # 180 tablet, Refills 3, Tot. Refills 3, Maintenance, 07/10/22 16:07:00 EST, Route to Pharmacy Electronically, [facility]/pharmacy #[id number], Partial fill upon patientrequest if the prescription is for a schedule II op... Start Date: 07/10/22 Status: Ordered latanoprost 0.005% ophthalmic solution See Instructions, INSTILL 1 DROP IN BOTH EYES DAILY BEFORE DINNER, # 2.5 mL, 0 Refills, [facility], 18, INSTILL 1 DROP IN BOTH EYES DAILY BEFORE DINNER, 158, cm, 04/14/21 11:28:00 EDT, Height, 98.6, kg, 04/11/21 15:59:00 EDT, Dry Weight Start Date: 04/14/21 Status: Ordered Metoprolol Succinate ER 25 mg oral tablet, extended release 1 tablet, By Mouth, Daily, # 90 tablet, 3 Refills, 09/30/22 20:06:00 EST, [facility]/pharmacy #[id number], 157, cm, 09/15/22 11:19:00 EST, Height, 94.3, kg, 01/19/22 4:25:00 EDT, Dry Weight Start Date: 09/30/22 Status: Ordered nitroglycerin 0.4 mg sublingual tablet 1 tablet = 0.4 mg, Sublingual, Every 5 minutes, PRN as needed for chest pain, not to exceed 3 doses/15 min--if pain persists, seek medical attention, # 100 tablet, 0 Refills, Maintenance, 03/15/21 12:38:00 EDT, Tablet, [facility]/pharmacy #[id number], Partial fill... Start Date: 03/15/21 Status: Ordered rOPINIRole 0.5 mg oral tablet 1 tablet, By Mouth, 4 times a day, # 360 tablet, 1 Refills, Maintenance, 07/25/22 9:33:00 EST, [facility] 7[facility], 157, cm, 07/10/22 15:50:00 EST, Height, 94.3, kg, 01/19/22 4:25:00 EDT, Dry Weight Start Date: 07/25/22 Status: Ordered spironolactone 25 mg oral tablet 25 mg, 1, tablet, By Mouth, Daily, # 90 tablet, Refills 3, Tot. Refills 3, Maintenance, 10/09/22 15:42:00 EDT, [facility], [facility] [...] 05/20/22 16:10:00 EDT, Route to Pharmacy Electronically, [facility]/pharmacy #[id number], Partial fill uponpatient request if the [...] Team Personnel Name: Lisa Carlson RN Position: [facility] RN Member Role: Primary Care Nurse Name: Estrellita Putnam RN Position: [facility] RN Member Role: Primary Care Nurse Name: Marlen Kenny RN Position: [facility] RN Member Role: Primary Care Nurse Name: Toshia Muhammad RN Position: [facility] RN Supv Member Role: Primary Care Nurse Name: Suleman Jones RN Position: [facility] RN Member Role: Primary Care Nurse Name: Kathy Medina RN Position: [facility] RN Member Role: Primary Care Nurse Name: Lesli Mercedes RN Position: [facility] RN Member Role: Primary Care Nurse Name: Marguerite Wang RN Position: [facility] RN Member Role: Primary Care Nurse Name: Mick Tatum MD Position: [facility] Primary Care Physician Member Role: PCP Address: Address: [address] [place] [id number] Name: Svitlana Clark RN Position: [facility] RN Member Role: Primary Care Nurse Name: Yoana Guevara RN Position: [facility] RN Member Role: Primary Care Nurse Name: Pierre Groves RN Position: [facility] RN Member Role: Primary Care Nurse Name: Carmen Murphy RN Position: [facility] RN Member Role: Primary Care Nurse Name: Rylie Ordonez RN Position: [facility] PCO RN Member Role: Primary Care Nurse Name: Aditi Brown RN Position: [facility] RN Member Role: Primary Care Nurse Name: Chana Cazares RN Position: [facility] RN Member Role: Primary Care Nurse Name: Toshia Urbina RN Position: [facility] RN Member Role: Primary Care Nurse Name: Aniyah Sloan RN Position: [facility] SN RN Member Role: Primary Care Nurse Name: Rosemary Ramon RN Position: [facility] OB RN Member Role: Primary Care Nurse Name: Sneha Newton RN Position: [facility] Hospital Dental Office Receptionist Member Role: Primary Care Nurse Care Team Related Persons Name: CLAUDIA URBINA Address: [address] [address] Name: RALPH SÁNCHEZ Address: [address] [facility] [address] Name: DONY CARCAMO Address: [place] [address] [place] [address]
--- OUTSIDE RECORDS SUMMARY | 2024-02-08 01:05 | XMS_ITS | Continuity of Care Document ---
Author Organization [facility] Gop[facility] Jose lt Address [address] [place] [address]- Care Team Providers Care Psychiatric Attendant Name Role Phone Rc CORDERO, Mick Clay Primary Care Physician [phone] [place] [facility] [place] 09/07/22 [facility] [address] [place] [address]- Allergies, Adverse Reactions, Alerts Substance Reaction Severity Status amoxicillin 1 Active Benadryl Shaking Active Dust Active Other Environmental Allergy 2 Active Cats Active Contrast Dye Active egg-containing compound 3 Re solved Other [...] Given Parent Or Guardian Refuses 1Result Comment: [id number] 2Location History: DR LOAIZA 3Location History: DR LOAIZA 4Location History: DR LOAIZA 5Location History: DR LOAIZA Medications atorvastatin 40 mg oral tablet 1 tablet, By Mouth, Daily at bedtime, # 90 tablet, 3 Refills, Maintenance, 05/13/22 7:24:00 EDT, [facility], 157, cm, 05/12/22 13:47:00 EDT, Height, 94.3, [...] Refills, Maintenance, 05/13/22 9:34:00 EDT, Gel, [facility]/pharmacy #[id number], 157, cm, 05/12/22 13:47:00 EDT, Height, 94.3, kg, 01/19/22 4:25:00 EDT, Dry Weight Start Date: 05/13/22 Status: Ordered Eliquis 5 mg oral tablet 1 tablet, By Mouth, 2 times a day, # 180 tablet, 3 Refills, Maintenance, 05/27/22 16:57:00 EDT, [facility], 157, cm, 05/12/22 13:47:00 EDT, Height, 94.3, kg, 01/19/22 4:25:00 EDT, Dry Weight Start Date: 05/27/22 Status: Ordered empagliflozin 10 mg oral tablet 1 tablet = 10 mg, By Mouth, Daily in AM, # 90 tablet, 3 Refills, Maintenance, 06/09/22 12:36:00 EST, Tablet, [facility]/pharmacy #[id number], Partial fill upon patient request if the prescription is for a schedule II opioid drug., 157, cm, 05/12/22 13:47:00 EDT, H... Start Date: 06/09/22 Stop Date: 06/04/23 Status: Ordered gabapentin 400 mg oral capsule 2, capsule, By Mouth, 3 times a day, # 180 capsule, Refills 5, Tot. Refills 5, Maintenance, 08/28/22 15:05:00 EST, Route to Pharmacy Electronically, [facility]/pharmacy #[id number], 157, cm, 07/27/22 15:56:00 EST, Height, 94.3, kg, 01/19/22 4:25:00 EDT, Dry Weight Start Date: 08/28/22 Status: Ordered isosorbide mononitrate 60 mg oral tablet, extended release 60 mg, 1, tablet, By Mouth, 2 times a day, # 180 tablet, Refills 3, Tot. Refills 3, Maintenance, 07/10/22 16:07:00 EST, Route to Pharmacy Electronically, [facility]/pharmacy #[id number], Partial fill upon patientrequest if the prescription is for a schedule II op... Start Date: 07/10/22 Status: Ordered latanoprost 0.005% ophthalmic solution See Instructions, INSTILL 1 DROP IN BOTH EYES DAILY BEFORE DINNER, # 2.5 mL, 0 Refills, [facility], 18, INSTILL 1 DROP IN BOTH EYES DAILY BEFORE DINNER, 158, cm, 04/14/21 11:28:00 EDT, Height, 98.6, kg, 04/11/21 15:59:00 EDT, Dry Weight Start Date: 04/14/21 Status: Ordered Metoprolol Succinate ER 25 mg oral tablet, extended release 1 tablet, By Mouth, Daily, # 90 tablet, 2 Refills, [facility], 159, cm, 12/21/21 15:41:00 EDT,Height, 93.6, kg, 01/06/22 9:12:00 EDT, Dry Weight Start Date: 01/16/22 Status: Ordered nitroglycerin 0.4 mg sublingual tablet 1 tablet = 0.4 mg, Sublingual, Every 5 minutes, PRN as needed for chest pain, not to exceed 3 doses/15 min--if pain persists, seek medical attention, # 100 tablet, 0 Refills, Maintenance, 03/15/21 12:38:00 EDT, Tablet, [facility]/pharmacy #[id number], Partial fill... Start Date: 03/15/21 Status: Ordered rOPINIRole 0.5 mg oral tablet 1 tablet, By Mouth, 4 times a day, # 360 tablet, 1 Refills, Maintenance, 07/25/22 9:33:00 EST, [facility], 157, cm, 07/10/22 15:50:00 EST, Height, 94.3, kg, 01/19/22 4:25:00 EDT, Dry Weight Start Date: 07/25/22 Status: Ordered torsemide 20 mg oral tablet 2 tablet = 40 mg, By Mouth, Daily, for 90 days, # 180 tablet, 3 Refills, Physician Stop 07/26/23 8:14:00 EST, 07/31/22 8:14:00 EST, [facility]/pharmacy #[id number], 157, cm, 07/27/22 15:56:00 EST, Height, 94.3, kg, 01/19/22 4:25:00 EDT, Dry Weight Start Date: 07/31/22 Stop Date: 07/26/23 Status: Ordered torsemide 20 mg oral tablet 2 tablet = 40 mg, By Mouth, Daily, for 90 days, # 180 tablet, 3 Refills, Physician Stop 05/15/23 16:05:00 EDT, 05/20/22 16:05:00 EDT, [facility]/pharmacy #[id number], 157, cm, 05/12/22 13:47:00 EDT, Height, 94.3,kg, 01/19/22 4:25:00 EDT, Dry Weight Start Date: 05/20/22 Stop Date: 05/15/23 Status: Ordered Vitamin B1 100 mg oral tablet 100 mg, 1, tablet, By Mouth, Daily, # 90 tablet, Refills 3, Tot. Refills 3, Acute 05/20/23 16:10:00EDT, 05/20/22 16:10:00 EDT, Route to Pharmacy Electronically, [facility]/pharmacy #[id number], Partial fill uponpatient request if [...] Care Nurse Name: Estrellita Putnam RN Position: [facility] RN Member Role: Primary Care Nurse Name: Marlen Kenny RN Position: [facility] RN Member Role: Primary Care Nurse Name: Toshia Muhammad RN Position: [facility] RN Martha Member Role: Primary Care Nurse Name: Suleman Jones RN Position: [facility] RN Member Role: Primary Care Nurse Name: Kathy Medina RN Position: [facility] RN Member Role: Primary Care Nurse Name: Marguerite Wang RN Position: [facility] RN Member Role: Primary Care Nurse Name: Mick Tatum MD Position: [facility] Primary Care Physician Member Role: PCP Address: Address: [address] [place] [id number] Name: Svitlana Clark RN Position: [facility] RN Member Role: Primary Care Nurse Name: Yoana Guevara RN Position: [facility] RN Member Role: Primary Care Nurse Name: Pierre Groves RN Position: [facility] RN Member Role: Primary Care Nurse Name: Carmen Murphy RN Position: [facility] RN Member Role: Primary Care Nurse Name: Rylie Ordonez RN Position: [facility] PCO RN Member Role: Primary Care Nurse Name: Marisa Negrete RN Position: [facility] RN Member Role: Primary Care Nurse Name: Aditi Brown RN Position: [facility] RN Member Role: Primary Care Nurse Name: Chana Cazares RN Position: [facility] RN Member Role: Primary Care Nurse Name: Toshia Urbina RN Position: [facility] RN Member Role: Primary Care Nurse Name: Aniyah Sloan RN Position: [facility] SN RN Member Role: Primary Care Nurse Name: Rosemary Ramon RN Position: [facility] OB RN Member Role: Primary Care Nurse Name: Sneha Newton RN Position: [facility] Director Of Individual Giving Member Role: Primary Care Nurse Care Team Related Persons Name: CLAUDIA URBINA Address: [address] [place], [place] Name: RALPH SÁNCHEZ Address: [address] [place], [place] Name: DONY CARCAMO Address: [address] [place], [place]
--- OUTSIDE RECORDS SUMMARY | 2024-02-08 01:05 | XMS_ITS | Continuity of Care Document ---
Author Organization [facility] Gopi Jose lt Address [address] [place] [address]- Care Team Providers Care Investigator Cash Shortage Name Role Phone Mick Tatum MD Primary Care Physician En[place] [facility] [place](s): 12/21/21 - 12/28/21 [facility] Adult [address] [place] [address]- Attending Physician: Mick Tatum MD Allergies, Adverse Reactions, Alerts Substance Reaction Severity Status amoxicillin 1 Active Benadryl Shaking Active Cats Active Other Environmental Allergy 2 [...] 07/09/21 10:04:00 EST, Route to Pharmacy Electronically, [facility]/pharmacy #[id number], Partial fill upon patient request if the prescription is for a schedule II opioid . Start Date: 07/09/21 Stop Date: 07/04/22 Status: Ordered Cosopt 2.23%-0.68% ophthalmic solution 1 drops, Eyes, Both, 2 times a day, # 10 mL, 0 Refills, Maintenance, 03/23/21 9:41:00 EDT, Solution, [facility]/pharmacy #[id number], Partial fill upon [...] a day, # 180 tablet, 3 Refills, [facility], 158, cm, 06/09/21 10:14:00 EST, Height, 98.6, kg, 04/11/21 15:59:00 EDT, Dry Weight Start Date: 06/17/21 Status: Ordered empagliflozin 10 mg oral tablet 1 tablet = 10 mg, By Mouth, Daily in AM, # 90 tablet, 3 Refills, Maintenance, 06/09/21 12:06:00 EST, Tablet, [facility]/pharmacy #[id number], Partial fill [...] 07/31/21 10:21:00 EST, Route to Pharmacy Electronically, [facility]/pharmacy #[id number], 159, cm, 07/25/21 11:20:00 EST, Height, 98, kg, 07/06/21 19:57:00 EST, Dry Weight Start Date: 07/31/21 Status: Ordered isosorbide mononitrate 30 mg oral tablet, extended release 1 tablet, By Mouth, Daily, for 90 days, # 90 tablet, 3 Refills, Physician Stop 04/20/22 16:32:00 EDT, 04/25/21 16:32:00 EDT, [facility]/pharmacy #[id number], 158, cm, 04/25/21 14:49:00 EDT, Height, 98.6, kg, 04/11/21 15:59:00 EDT, Dry Weight Start Date: 04/25/21 Stop Date: 04/20/22 Status: Ordered latanoprost 0.005% ophthalmic solution See Instructions, INSTILL 1 DROP IN BOTH EYES DAILY BEFORE DINNER, # 2.5 mL, 0 Refills, [facility], 18, INSTILL 1 DROP IN BOTH EYES DAILY BEFORE DINNER, 158, cm, 04/14/21 11:28:00 EDT, Height, 98.6, kg, 04/11/21 15:59:00 EDT, Dry Weight Start Date: 04/14/21 Status: Ordered Lipitor 40 mg oral tablet 1 tablet = 40 mg, By Mouth, Daily, # 30 tablet, 5 Refills, Maintenance, 04/28/21 6:50:00 EDT, Tablet, [facility]/pharmacy #[id number], Partial [...] 12/06/20 13:03:00 EDT, Route to Pharmacy Electronically, [facility]/pharmacy #[id number], Partial fill upon [...] 0 Refills, Maintenance, 03/15/21 12:38:00 EDT, Tablet, [facility]/pharmacy #[id number], Partial fill... Start Date: 03/15/21 Status: Ordered rOPINIRole 0.5 mg oral tablet 1 tablet, By Mouth, 4 times a day, # 360 tablet, 1 Refills, [facility], 159, cm, 11/14/21 9:20:00 EDT, Height, 98, kg, 07/06/21 19:57:00 EST, Dry Weight Start Date: 11/22/21 Status: Ordered spironolactone 25 mg oral tablet 25 mg, 1, tablet, By Mouth, 2 times a day, # 180 tablet, Refills 3, Tot. Refills 3, Maintenance, 11/14/21 9:55:00 EDT, Route to Pharmacy Electronically, [facility]/pharmacy #[id number], Partial fill upon patient request if the prescription is for a schedule II opi... Start Date: 11/14/21 Stop Date: 11/09/22 Status: Ordered torsemide 20 mg oral tablet 2 tablet = 40 mg, By Mouth, Daily, # 90 tablet, 1 Refills, 12/13/21 10:45:00 EDT, [facility]/pharmacy #[id number], 159, cm, 12/13/21 10:22:00 EDT, Height, 97, kg, 12/09/21 12:44:00 EDT, Dry Weight Start Date: 12/13/21 Status: Ordered VITAMIN B-1 [...] recent to oldest [Reference Range]: 1 Height 159.0 cm (12/21/21 3:41 PM) Weight 96.0 kg (12/21/21 3:41 PM) Oxygen Saturation [94-100 %] 95 % (12/21/21 3:41 PM) Pulse Rate [55-90 bpm] 72 bpm (12/21/21 3:41 PM) Body Mass Index [18.5-24.99] 37.97 *>HHI* (12/21/21 3:41 PM) Blood Pressure [90-138/55-84 mm Hg] 122/ 77mm Hg (12/21/21 3:41 PM) Mode of Delivery (Oxygen) Room air (12/21/21 3:41 PM) Blood pressure sites Arm, left (12/21/21 3:41 PM) Weight Obtained Via Standing scale (12/21/21 3:41 PM) Social History Social History Type Response Smoking Status Never (less than 100 in lifetime) entered on: 06/27/18 Sex
--- OUTSIDE RECORDS SUMMARY | 2024-02-08 01:05 | XMS_ITS | Continuity of Care Document ---
Author Organization [facility] Gopi Jose Address [address] [place] [address]- Care Team Providers Care Wrist Closer Name Role Phone Марина CORDERO, Ignacio New Primary Care Physician Encounter [facility] [place] Date(s): 02/20/20 - 02/27/20 [facility] Adult [address] [place] [address]- [place] Encounter Diagnosis Cough(Discharge Diagnosis) - 02/20/20 Attending Physician: Timbo EMMANUEL, Inga Allergies, Adverse Reactions, Alerts Substance Reaction Severity [...] 5 Refills, Maintenance, 10/07/19 10:56:00 EDT, Gel, [facility]/pharmacy #[id number], 160, cm, 08/19/19 8:02:00 EST, Height Start Date: 10/07/19 Status: Ordered Eliquis 5 mg oral tablet 1 tablet, By Mouth, 2 times a day, # 180 tablet, Refills 3 Tot. Refills 3, [id number] Start Date: 06/17/19 Status: Ordered Flonase 50 mcg/inh nasal spray 2 sprays, Nares, Both, Daily, # 16 Gm, 5 Refills, Maintenance, 10/29/19 12:45:00 EDT, [facility]/pharmacy #[id number], 2 sprays Nares, Both Daily, 160, cm, 08/19/19 8:02:00 EST, Height Start Date: 10/29/19 Status: Ordered gabapentin 300 mg oral capsule 300 mg, 1, capsule, By Mouth, 3 times a day, # 90 capsule, Refills 2, Tot. Refills 2, Maintenance, 03/20/19 12:07:35 EDT, Route to Pharmacy Electronically, [id number], [facility]/pharmacy #[id number] Start Date: 03/20/19 Status: Ordered levoFLOXacin 500 mg oral tablet 1 tablet = 500 mg, By Mouth, Every 24 hours, # 7 tablet, 0 Refills, Maintenance, 01/29/20 8:53:00 EDT, [facility]/pharmacy #[id number], 160, cm, 01/28/20 8:49:00 EDT, Height Start Date: 01/29/20 Status: Ordered Lialda 1.2 g oral delayed release tablet 2 tablet = 2.4 Gm, By Mouth, Daily, 0 Refills, Maintenance, 06/27/18 15:39:26 EST Start Date: 06/27/18 Status: Ordered predniSONE 20 mg oral tablet 2 tablet = 40 mg, By Mouth, Daily, # 14 tablet, 0 Refills, Maintenance, 11/06/19 14:38:00 EDT, [id number], 160, cm, 08/19/19 8:02:00 EST, Height Start Date: 11/06/19 Status: Ordered ProAir HFA 90 mcg/inh inhalation aerosol with adapter 2, puffs, Inhalation, Every 6 hours, PRN, # 8.5 Gm, Refills 0, Tot. Refills 0, Maintenance, 02/20/20 16:00:00 EDT, Aerosol, Route to Pharmacy Electronically, [id number], [facility]/pharmacy #[id number], 160, cm, 02/20/20 15:13:00 EDT, [...] Diagnosis Diagnosis Type Effective Dates Health Status Clini jesse Service Informant Cough Discharge Diagnosis 02/20/20 Vital Signs Most recent to oldest [Reference Range]: 1 Height 160.00 cm (02/20/20 3:13 PM) Social History Social History Type Response Smoking Status Never (less than 100 in lifetime) entered on: 06/27/18 Sex
--- OUTSIDE RECORDS SUMMARY | 2024-02-08 01:05 | XMS_ITS | Continuity of Care Document ---
Author Organization [facility] Jose lt Address [address] [place] [address]- Care Team Providers Care Director Of National Sales Name Role Phone Rc CORDERO, Mick Clay Primary Care Physician Encounter [facility] [place] Date(s): 05/11/21 - 06/10/21 [facility] Adult [address] [place] [address]- Allergies, Adverse Reactions, Alerts Substance Reaction Severity [...] 04/27/21 13:28:00 EDT, Route to Pharmacy Electronically, [facility]/pharmacy #[id number], Partial fill upon patient request if the prescription... Start Date: 04/27/21 Stop Date: 10/24/21 Status: Ordered aspirin 81 mg oral delayed release tablet 81 mg, 1, tablet, By Mouth, Daily, # 30 tablet, Refills 5, Tot. Refills 5, Maintenance, 10/24/21 13:28:00 EDT, Route to Pharmacy Electronically, [facility]/pharmacy #[id number], Partial fill upon patient request if the prescription is for a schedule II opioid drug... Start Date: 10/24/21 Stop Date: 04/22/22 Status: Ordered atorvastatin 40 mg oral tablet 1 tablet, By Mouth, Daily at bedtime, for 90 days, # 90 tablet, 3 Refills, Physician Stop 04/20/22 16:32:00 EDT, 04/25/21 16:32:00 EDT, [facility]/pharmacy #[id number], 158, cm, 04/25/21 14:49:00 EDT, Height, [...] 159, cm... Start Date: 03/23/21 Status: Ordered [facility] ASPIRIN EC 81 MG TABLET [facility] ASP[facility]IN [...] 3 Refills, Maintenance, 07/12/20 14:12:00 EST, [facility], 157, cm, 05/07/20 11:34:00 EDT, Height, 91, [...] Replace Required Details, Route to Pharmacy Electronically, [facility]/pharmacy #[id number], Partial fill upon patient re... Start Date: 03/16/21 Status: Ordered isosorbide mononitrate 30 mg oral tablet, extended release 1 tablet, By Mouth, Daily, for 90 days, # 90 tablet, 3 Refills, Physician Stop 04/20/22 16:32:00 EDT, 04/25/21 16:32:00 EDT, [facility]/pharmacy #[id number], 158, cm, 04/25/21 14:49:00 EDT, Height, 98.6, kg, 04/11/21 15:59:00 EDT, Dry Weight Start Date: 04/25/21 Stop Date: 04/20/22 Status: Ordered latanoprost 0.005% ophthalmic solution See Instructions, INSTILL 1 DROP IN BOTH EYES DAILY BEFORE DINNER, # 2.5 mL, 0 Refills, [facility] 97[facility], 18, INSTILL 1 DROP IN BOTH EYES DAILY BEFORE DINNER, 158, cm, 04/14/21 11:28:00 EDT, Height, 98.6, kg, 04/11/21 15:59:00 EDT, Dry Weight Start Date: 04/14/21 Status: Ordered Lipitor 40 mg oral tablet 1 tablet = 40 mg, By Mouth, Daily, # 30 tablet, 5 Refills, Maintenance, 04/28/21 6:50:00 EDT, Tablet, [facility]/pharmacy #[id number], Partial fill upon patient request if [...] 12/06/20 13:03:00 EDT, Route to Pharmacy Electronically, [facility]/pharmacy #[id number], Partial fill upon patient request if the prescription is for a schedule II opioid drug... Start Date: 12/06/20 Stop Date: 06/04/21 Status: Ordered Metoprolol Succinate ER 25 mg oral tablet, extended release 1 tablet, By Mouth, Daily, # 90 tablet, 2 Refills, [facility], 158, cm, 04/25/21 14:49:00 EDT,Height, 98.6, kg, 04/11/21 15:59:00 EDT, Dry Weight Start Date: 06/01/21 Status: Ordered nitroglycerin 0.4 mg sublingual tablet 1 tablet = 0.4 mg, Sublingual, Every 5 minutes, PRN as needed for chest pain, not to exceed 3 doses/15 min--if pain persists, seek medical attention, # 100 tablet, 0 Refills, Maintenance, 03/15/21 12:38:00 EDT, Tablet, [facility]/pharmacy #[id number], Partial fill... Start Date: 03/15/21 Status: [...] 2 Refills, Maintenance, 05/26/21 12:47:00 EDT, Tablet, [facility]/pharmacy #[id number], Partial fill upon patient request if the prescription is for a schedule II opioid drug., 158, cm, 04/25/21 14:49:00 EDT, Height,... Start Date: 05/26/21 Status: Ordered thiamine 100 mg oral tablet 100 mg, 1, tablet, By Mouth, Daily, for 30 days, # 30 tablet, Refills 5, Tot. Refills 5, Acute 11/10/21 12:51:00 EDT, 05/14/21 12:51:00 EDT, Route to Pharmacy Electronically, [facility]/pharmacy #[id number], Partial fill upon patient request if the prescription is... Start Date: 05/14/21 Stop Date: 11/10/21 Status: Ordered torsemide 20 mg oral tablet 1 tablet = 20 mg, By Mouth, Daily, # 30 tablet, 5 Refills, Maintenance, 05/10/21 4:19:00 EDT, Tablet, [facility]/pharmacy #[id number], Partial fill upon patient request if [...]
--- OUTSIDE RECORDS SUMMARY | 2024-02-08 01:05 | XMS_ITS | Continuity of Care Document ---
Author Organization [facility] Gopi Jose lt Address [address] [place] [address]- Care Team Providers Care Circular Gang Saw Operator Name Role Phone Mick Tatum MD Primary Care Physician [phone] [place] [facility] [place]s): 08/24/22 - 09/23/22 [facility] Adult [address] [place] [address]- Allergies, Adverse Reactions, Alerts Substance Reaction Severity [...] Given Parent Or Guardian Refuses 1Result Comment: [id number] 2Location History: DR LOAIZA 3Location History: DR LOAIZA 4Location History: DR LOAIZA 5Location History: DR LOAIZA Medications atorvastatin 40 mg oral tablet 1 tablet, By Mouth, Daily at bedtime, # 90 tablet, 3 Refills, Maintenance, 05/13/22 7:24:00 EDT, [facility], 157, cm, 05/12/22 13:47:00 EDT, Height, 94.3, [...] 5 Refills, Maintenance, 05/13/22 9:34:00 EDT, Gel, [facility]/pharmacy #[id number], 157, cm, 05/12/22 13:47:00 EDT, Height, 94.3, kg, 01/19/22 4:25:00 EDT, Dry Weight Start Date: 05/13/22 Status: Ordered Eliquis 5 mg oral tablet 1 tablet, By Mouth, 2 times a day, # 180 tablet, 3 Refills, Maintenance, 05/27/22 16:57:00 EDT, [facility], 157, cm, 05/12/22 13:47:00 EDT, Height, 94.3, kg, 01/19/22 4:25:00 EDT, Dry Weight Start Date: 05/27/22 Status: Ordered empagliflozin 10 mg oral tablet 1 tablet = 10 mg, By Mouth, Daily in AM, # 90 tablet, 3 Refills, Maintenance, 06/09/22 12:36:00 EST, Tablet, [facility]/pharmacy #[id number], Partial fill upon patient request if the prescription is for a schedule II opioid drug., 157, cm, 05/12/22 13:47:00 EDT, H... Start Date: 06/09/22 Stop Date: 06/04/23 Status: Ordered gabapentin 400 mg oral capsule 2, capsule, By Mouth, 3 times a day, # 180 capsule, Refills 5, Tot. Refills 5, Maintenance, 08/28/22 15:05:00 EST, Route to Pharmacy Electronically, [facility]/pharmacy #[id number], 157, cm, 07/27/22 15:56:00 EST, Height, 94.3, kg, 01/19/22 4:25:00 EDT, Dry Weight Start Date: 08/28/22 Status: Ordered ibuprofen 400 mg oral tablet 400 mg, 1, tablet, By Mouth, 2 times a day, for 14 days, # 28 tablet, Refills 0, Tot. Refills 0, Acute 09/29/22 15:35:00 EST, 09/15/22 15:35:00 EST, Route to Pharmacy Electronically, [facility]/pharmacy #[id number], replaces meloxicam, 157, cm, 09/15/22 11:19:00 E... Start Date: 09/15/22 Stop Date: 09/29/22 Status: Ordered isosorbide mononitrate 60 mg oral tablet, extended release 60 mg, 1, tablet, By Mouth, 2 times a day, # 180 tablet, Refills 3, Tot. Refills 3, Maintenance, 07/10/22 16:07:00 EST, Route to Pharmacy Electronically, [facility]/pharmacy #[id number], Partial fill upon patientrequest if the prescription is for a schedule II op... Start Date: 07/10/22 Status: Ordered latanoprost 0.005% ophthalmic solution See Instructions, INSTILL 1 DROP IN BOTH EYES DAILY BEFORE DINNER, # 2.5 mL, 0 Refills, [facility], 18, INSTILL 1 DROP IN BOTH EYES DAILY BEFORE DINNER, 158, cm, 04/14/21 11:28:00 EDT, Height, 98.6, kg, 04/11/21 15:59:00 EDT, Dry Weight Start Date: 04/14/21 Status: Ordered Metoprolol Succinate ER 25 mg oral tablet, extended release 1 tablet, By Mouth, Daily, # 90 tablet, 2 Refills, [facility], 159, cm, 12/21/21 15:41:00 EDT,Height, 93.6, kg, 01/06/22 9:12:00 EDT, Dry Weight Start Date: 01/16/22 Status: Ordered nitroglycerin 0.4 mg sublingual tablet 1 tablet = 0.4 mg, Sublingual, Every 5 minutes, PRN as needed for chest pain, not to exceed 3 doses/15 min--if pain persists, seek medical attention, # 100 tablet, 0 Refills, Maintenance, 03/15/21 12:38:00 EDT, Tablet, [facility]/pharmacy #[id number], Partial fill... Start Date: 03/15/21 Status: Ordered rOPINIRole 0.5 mg oral tablet 1 tablet, By Mouth, 4 times a day, # 360 tablet, 1 Refills, Maintenance, 07/25/22 9:33:00 EST, [facility], 157, cm, 07/10/22 15:50:00 EST, Height, 94.3, [...] Stop 07/26/23 8:14:00 EST, 07/31/22 8:14:00 EST, [facility]/pharmacy #[id number], 157, cm, 07/27/22 15:56:00 EST, Height, 94.3, kg, 01/19/22 4:25:00 EDT, Dry Weight Start Date: 07/31/22 Stop Date: 07/26/23 Status: Ordered torsemide 20 mg oral tablet 2 tablet = 40 mg, By Mouth, Daily, for 90 days, # 180 tablet, 3 Refills, Physician Stop 05/15/23 16:05:00 EDT, 05/20/22 16:05:00 EDT, [facility]/pharmacy #[id number], 157, cm, 05/12/22 13:47:00 EDT, Height, 94.3,kg, 01/19/22 4:25:00 EDT, Dry Weight Start Date: 05/20/22 Stop Date: 05/15/23 Status: Ordered Vitamin B1 100 mg oral tablet 100 mg, 1, tablet, By Mouth, Daily, # 90 tablet, Refills 3, Tot. Refills 3, Acute 05/20/23 16:10:00EDT, 05/20/22 16:10:00 EDT, Route to Pharmacy Electronically, [facility]/pharmacy #[id number], Partial fill uponpatient request if the [...] Team Personnel Name: Mojgan Lopez RN Position: [facility] RN Member Role: Primary Care Nurse Name: Lisa Carlson RN Position: [facility] RN Member Role: Primary Care Nurse Name: Estrellita Putnam RN Position: [facility] RN Member Role: Primary Care Nurse Name: Marlen Kenny RN Position: [facility] RN Member Role: Primary Care Nurse Name: Toshia Muhammad RN Position: [facility] RN Martha Member Role: Primary Care Nurse Name: Suleman Jones RN Position: [facility] RN Member Role: Primary Care Nurse Name: Kathy Medina RN Position: [facility] RN Member Role: Primary Care Nurse Name: Marguerite Wang RN Position: [facility] RN Member Role: Primary Care Nurse Name: Mick Tatum MD Position: [facility] Primary Care Physician Member Role: PCP Address: Address: [address] [place] [id number] Name: Svitlana Clark RN Position: [facility] RN Member Role: Primary Care Nurse Name: Yoana Guevara RN Position: [facility] RN Member Role: Primary Care Nurse Name: Pierre Groves RN Position: [facility] RN Member Role: Primary Care Nurse Name: Carmen Murphy RN Position: [facility] RN Member Role: Primary Care Nurse Name: Rylie Ordonez RN Position: [facility] ONESIMOO RN Member Role: Primary Care Nurse Name: Aditi Brown RN Position: [facility] RN Member Role: Primary Care Nurse Name: Chana Cazares RN Position: [facility] RN Member Role: Primary Care Nurse Name: Toshia Urbina RN Position: [facility] RN Member Role: Primary Care Nurse Name: Aniyah Sloan RN Position: [facility] SN RN Member Role: Primary Care Nurse Name: Rosemary Ramon RN Position: [facility] OB RN Member Role: Primary Care Nurse Name: Sneha Newton RN Position: [facility] Hospital Yard Pipe Grader Member Role: Primary Care Nurse Care Team Related Persons Name: CLAUDIA URBINA Address: [address] [place] [address] Name: PRINCESS RALPH Address: [address] [place] [address] Name: DONY CARCAMO Address: home [address] [place] [address]
--- OUTSIDE RECORDS SUMMARY | 2024-02-08 01:05 | XMS_ITS | Continuity of Care Document ---
Author Organization [facility] Address [address] [place] [id number]- Care Team Providers Care Pattern Clerk Name Role Phone Rc CORDERO, Mick Clay Primary Care Physician [place] [facility] [place] 08/27/20 [facility] [address] [place] [id number] Allergies, Adverse Reactions, Alerts Substance Reaction Severity [...] 03/30/20 8:48:00 EDT, Route to Pharmacy Electronically, [facility]/pharmacy #[id number], 157, cm, 03/11/20 12:49:00 EDT, [...] 5 Refills, Maintenance, 10/07/19 10:56:00 EDT, Gel, [facility]/pharmacy #[id number], 160, cm, 08/19/19 8:02:00 EST, Height Start Date: 10/07/19 Status: Ordered Eliquis 5 mg oral tablet 1 tablet, By Mouth, 2 times a day, # 180 tablet, 3 Refills, Maintenance, 07/12/20 14:12:00 EST, [facility], 157, cm, 05/07/20 11:34:00 EDT, Height, 91, kg, 02/28/20 22:14:00 EDT, Dry Weight Start Date: 07/12/20 Status: Ordered gabapentin 400 mg oral capsule 400 mg, 1, capsule, By Mouth, 3 times a day, # 270 capsule, Refills 2, Tot. Refills 2, Maintenance,03/30/20 8:48:00 EDT, Route to Pharmacy Electronically, [facility]/pharmacy #[id number], 157, cm, 03/11/20 12:49:00 EDT, [...]
--- OUTSIDE RECORDS SUMMARY | 2024-02-08 01:05 | XMS_ITS | Continuity of Care Document ---
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 Name Role Phone Rc CORDERO, Mick Clay Primary Care Physician Encounter [facility] [place] Date(s): 11/25/20 - 11/25/[address] [address]- Encounter Diagnosis Rectal bleeding(Final) - 11/25/20 Rectal bleeding(Final) - 11/25/20 Discharge Disposition: A-D/C Home Attending Physician: Kevan Connolly MD Admitting Physician: Kevan Connolly MD Referring Physician: Not on Staff, Referring [...] itchy, 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 Refills 0, Maintenance, 09/20/20 14:38:00 EST, Route to Pharmacy Electronically, [facility]/pharmacy #[id number], Partial fill upon patient request if the prescription is for a schedule II opioid drug... Start Date: 09/20/20 Status: Ordered budesonide 3 mg oral delayed release capsule 1 capsule = 3 mg, By Mouth, Daily in AM, # 30 capsule, 5 Refills, Acute 02/27/21 10:03:00 EDT, 11/25/20 10:36:00 EDT, [facility]/pharmacy #[id number], Partial fill upon patient [...] 3 Refills, Maintenance, 07/12/20 14:12:00 EST, [facility], 157, cm, 05/07/20 11:34:00 EDT, Height, 91, [...] 0 Refills, Maintenance, 08/30/20 10:02:00 EST, Tablet, [facility]/pharmacy #[id number], Partial fill upon patient [...] Date: 10/21/20 Stop Date: 12/03/20 Status: Ordered predniSONE 5 mg oral tablet See Instructions, Take 8 pills (40 mg) a day for five days then decrease by one pill every 5 days.,# 180 tablet, 0 Refills, Maintenance, 11/25/20 12:14:00 EDT, Tablet, [facility]/pharmacy #[id number], Partial fill upon patient [...] tablet, 0 Refills,Soft Stop, 10/21/20 16:26:00 EDT, [facility]/pharmacy #[id number], Partial fill upon patient [...] to oldest [Reference Range]: 1 2 3 Oxygen Saturation [94-100 %] 99 % (11/25/20 12:50 PM) 98 % (11/25/20 11:33 AM) 99 % (11/25/20 9:36 AM) Pulse Rate [55-90 bpm] 86 bpm (11/25/20 12:50 PM) 81 bpm (11/25/20 11:33 AM) 86 bpm (11/25/20 9:36 AM) Blood Pressure [90-138/55-84 mm Hg] 131/70mm Hg (11/25/20 12:50 PM) 140/84mm Hg *H* (11/25/20 11:33 AM) 157/72mm Hg *H* (11/25/20 9:36 AM) Respiratory Rate [16-30 br/min] 18 br/min (11/25/20 12:50 PM) 20 br/min (11/25/20 11:33 AM) 19 br/min (11/25/20 9:36 AM) Temperature [96.8-100.4 DegF] 98.6 DegF (11/25/20 11:33 AM) 97.9 DegF (11/25/20 8:03 AM) Mode of Delivery (Oxygen) Room air (11/25/20 12:50 PM) Room air (11/25/20 11:33 AM) Room air (11/25/20 9:36 AM) Blood pressure sites Arm, left (11/25/20 11:33 AM) Arm, left (11/25/20 9:36 AM) Arm, right (11/25/20 8:03 AM) Temperature Route Oral (11/25/20 11:33 AM) Oral (11/25/20 9:36 AM) Oral (11/25/20 8:03 AM) Social History Social History Type Response Smoking Status Never (less than 100 in lifetime) entered on: 06/27/18 Sex Female
--- OUTSIDE RECORDS SUMMARY | 2024-02-08 01:06 | XMS_ITS | Continuity of Care Document ---
Author Organization [facility] Address [address] [place] [address]- Care Team Providers Care Clip Wrapper Name Role Phone Rc CORDERO, Mick Clay Primary Care Physician Encounter [facility] [place] Date(s): 01/24/22 - 02/23/22 [facility] [address] [place], [place] [address] Allergies, Adverse Reactions, Alerts Substance Reaction Severity [...] 07/09/21 10:04:00 EST, Route to Pharmacy Electronically, [facility]/pharmacy #[id number], Partial fill upon patient request if the prescription is for a schedule II opioid drUriel.. Start Date: 07/09/21 Stop Date: 07/04/22 Status: Ordered Cosopt 2.23%-0.68% ophthalmic solution 1 drops, Eyes, Both, 2 times a day, # 10 mL, 0 Refills, Maintenance, 03/23/21 9:41:00 EDT, Solution, [facility]/pharmacy #[id number], Partial fill upon patient request if the prescription is for a schedule II opioid drug., 1 drops Eyes, Both 2 times a day, 159, cm... Start Date: 03/23/21 Status: Ordered diclofenac 1% topical gel 1 application, Topically, 4 times a day, # 100 Gm, 5 Refills, Maintenance, 10/07/19 10:56:00 EDT, Gel, [facility]/pharmacy #[id number], 160, cm, 08/19/19 8:02:00 EST, Height Start Date: 10/07/19 Status: Ordered Eliquis 5 mg oral tablet 1 tablet, By Mouth, 2 times a day, # 180 tablet, 3 Refills, [facility], 158, cm, 06/09/21 10:14:00 EST, Height, 98.6, kg, 04/11/21 15:59:00 EDT, Dry Weight Start Date: 06/17/21 Status: Ordered empagliflozin 10 mg oral tablet 1 tablet = 10 mg, By Mouth, Daily in AM, # 90 tablet, 3 Refills, Maintenance, 06/09/21 12:06:00 EST, Tablet, [facility]/pharmacy #[id number], Partial fill upon [...] 5, Route to Pharmacy Electronically, [facility], 159, cm, 12/21/21 15:41:00 EDT, Height, 93.6, [...] # 2.5 mL, 0 Refills, [facility], 18, INSTILL 1 DROP IN BOTH EYES [...] # 90 tablet, 2 Refills, [facility], 159, cm, 12/21/21 15:41:00 EDT,Height, 93.6, kg, [...] a day, # 360 tablet, 1 Refills, [facility], 159, cm, 11/14/21 9:20:00 EDT, Height, 98, kg, 07/06/21 19:57:00 EST, Dry Weight Start Date: 11/22/21 Status: Ordered spironolactone 25 mg oral tablet 25 mg, 1, tablet, By Mouth, Daily, # 90 tablet, Refills 3, Tot. Refills 3, Maintenance, 11/14/21 9:55:00 EDT, Route to Pharmacy Electronically, [facility]/pharmacy #[id number], Partial fill upon patient request if the prescription is for a schedule II opioid drug.... Start Date: 11/14/21 Stop Date: 11/09/22 Status: Ordered torsemide 20 mg oral tablet 2 tablet = 40 mg, By Mouth, Daily, HOLD FOR NEXT 5 DAYS, THEN GET BLOOD WORK AND RESTART AFTER DISCUSSING WITH PCP, # 90 tablet, 1 Refills, 12/13/21 10:45:00 EDT, [facility]/pharmacy #[id number], 159, cm, 12/13/21 [...]
--- OUTSIDE RECORDS SUMMARY | 2024-02-08 01:06 | XMS_ITS | Continuity of Care Document ---
Author Organization [facility] Address [address] [place] [address]- Care Team Providers Care Assisted Living Housekeeper Name Role Phone Mick Tatum MD Primary Care Physician [place] [facility] [place] 12/28/22 - 01/27/23 [facility] [address] [place] [address]- Attending Physician: Admtr, Julia Admitting Physician: Admtr, [...] Given Parent Or Guardian Refuses 1Result Comment: [id number] 2Location History: DR LOAIZA 3Location History: DR LOAIZA 4Location History: DR LOAIZA 5Location History: DR LOAIZA Medications atorvastatin 40 mg oral tablet 1 tablet, By Mouth, Daily at bedtime, # 90 tablet, 3 Refills, Maintenance, 05/13/22 7:24:00 EDT, [facility], 157, cm, 05/12/22 13:47:00 EDT, Height, 94.3, kg, 01/19/22 4:25:00 EDT, Dry Weight Start Date: 05/13/22 Status: Ordered Eliquis 5 mg oral tablet 1 tablet, By Mouth, 2 times a day, # 180 tablet, 3 Refills, Maintenance, 05/27/22 16:57:00 EDT, [facility], 157, cm, 05/12/22 13:47:00 EDT, Height, 94.3, kg, 01/19/22 4:25:00 EDT, Dry Weight Start Date: 05/27/22 Status: Ordered isosorbide mononitrate 60 mg oral tablet, extended release 60 mg, 1, tablet, By Mouth, 2 times a day, # 180 tablet, Refills 3, Tot. Refills 3, Maintenance, 07/10/22 16:07:00 EST, Route to Pharmacy Electronically, [facility]/pharmacy #[id number], Partial fill upon patientrequest if the prescription is for a schedule II op... Start Date: 07/10/22 Status: Ordered Metoprolol Succinate ER 25 mg oral tablet, extended release 1 tablet, By Mouth, Daily, # 90 tablet, 3 Refills, 09/30/22 20:06:00 EST, [facility]/pharmacy #[id number], 157, cm, 09/15/22 11:19:00 EST, Height, 94.3, kg, 01/19/22 4:25:00 EDT, Dry Weight Start Date: 09/30/22 Status: Ordered nitroglycerin 0.4 mg sublingual tablet 1 tablet = 0.4 mg, Sublingual, Every 5 minutes, PRN as needed for chest pain, not to exceed 3 doses/15 min--if pain persists, seek medical attention, # 100 tablet, 0 Refills, Maintenance, 12/19/22 9:51:00 EDT, Tablet, [facility]/pharmacy #[id number], Partial fill... Start Date: 12/19/22 Status: Ordered rOPINIRole 0.5 mg oral tablet 1 tablet, By Mouth, 4 times a day, # 360 tablet, 1 Refills, Maintenance, 01/22/23 9:08:00 EDT, [facility], 157, cm, 12/28/22 14:14:00 EDT, Height, 94.3, kg, 01/19/22 4:25:00 EDT, Dry Weight Start Date: 01/22/23 Status: Ordered spironolactone 25 mg oral tablet 25 mg, 1, tablet, By Mouth, Daily, # 90 tablet, Refills 3, Tot. Refills 3, Maintenance, 10/09/22 15:42:00 EDT, Route to Pharmacy Electronically, [facility]/pharmacy #[id number], Partial fill upon patient request if the prescription is for a schedule II opioid drug... Start Date: 10/09/22 Stop Date: 10/04/23 Status: Ordered torsemide 20 mg oral tablet 2 tablet = 40 mg, By Mouth, Daily, for 90 days, # 180 tablet, 3 Refills, Physician Stop 07/26/23 8:14:00 EST, 07/31/22 8:14:00 EST, [facility]/pharmacy #[id number], 157, cm, 07/27/22 15:56:00 EST, Height, [...] Authored Date: Laboratory * Event Display: Non Lab Results Authored Date: * Event Display: Non Lab Results Authored Date: Radiology * Event Display: Ultrasound Lower Extremity, Non- Authored Date: Patient Care team information Care Team Personnel Name: Lisa Carlson RN Position: [facility] RN Member Role: Primary Care Nurse Name: Estrellita Putnam RN Position: [facility] RN Member Role: Primary Care Nurse Name: Marlen Kenny RN Position: [facility] RN Member Role: Primary Care Nurse Name: Toshia Muhammad RN Position: [facility] RN Martha Member Role: Primary Care Nurse Name: Suleman Jones RN Position: [facility] RN Member Role: Primary Care Nurse Name: Kathy Medina RN Position: [facility] RN Member Role: Primary Care Nurse Name: Mick Tatum MD Position: [facility] Physician - Primary Care Member Role: PCP Address: Address: [address] [place] [address]- Name: Svitlana Clark RN Position: [facility] RN Member Role: Primary Care Nurse Name: Yoana Guevara RN Position: [facility] RN Member Role: Primary Care Nurse Name: Pierre Grvoes RN Position: [facility] RN Member Role: Primary Care Nurse Name: Carmen Murphy RN Position: [facility] RN Member Role: Primary Care Nurse Name: Rylie Ordonez RN Position: [facility] AMB Nurse Member Role: Primary Care Nurse Name: Aditi Brown RN Position: [facility] RN Member Role: Primary Care Nurse Name: Chana Cazares RN Position: [facility] RN Member Role: Primary Care Nurse Name: Toshai Urbina RN Position: [facility] RN Member Role: Primary Care Nurse Name: Aniyah Sloan RN Position: [facility] SN RN Member Role: Primary Care Nurse Name: Rosemary Ramon RN Position: [facility] OB RN Member Role: Primary Care Nurse Name: Sneha Newton RN Position: [facility] Dietetic Assistant Member Role: Primary Care Nurse Care Team Related Persons Name: CLAUDIA URBINA Address: home [address], [place] Name: RALPH SÁNCHEZ Address: home [address], [place] Name: DONY CARCAMO Address: [address] [place] [address]
--- OUTSIDE RECORDS SUMMARY | 2024-02-08 01:06 | XMS_ITS | Continuity of Care Document ---
Author Organization [facility] Address [address] [place] [address]- Care Team Providers Care Plate Worker Helper Name Role Phone Mick Tatum MD Primary Care Physician [phone] Encounter [facility] [place] Date(s): 07/28/20 - 09/23/20 [facility] [address] [place] [id number] Attending Physician: Elizabeth Bay NP Admitting Physician: Elizabeth Bay NP Referring Physician: Mick Tatum MD Allergies, Adverse Reactions, Alerts Substance Reaction Severity Status amoxicillin 1 Active egg-containing compound 2 Re solved Other Environmental Allergy 3 Active Cats Active Contrast Dye Active Dust [...] EDT, Route to Pharmacy Electronically, [facility]/pharmacy #[id number], 157, cm, 03/11/20 12:49:00 EDT, Height, 91, kg, 02/28/20 22:14:00 EDT, Dry Weight Start Date: 03/30/20 Stop Date: 03/25/21 Status: Ordered aspirin 81 mg oral delayed release tablet 81 mg, 1, tablet, By Mouth, Daily, # 30 tablet, Refills 0, Tot. Refills 0, Maintenance, 09/20/20 14:38:00 EST, Route to Pharmacy Electronically, [facility]/pharmacy #[id number], Partial fill upon patient request if [...] Acute 02/27/21 10:03:00 EDT, 11/25/20 10:36:00 EDT, [facility]/pharmacy #[id number], Partial fill upon patient request if [...] 5 Refills, Maintenance, 10/07/19 10:56:00 EDT, Gel, [facility]/pharmacy #[id number], 160, cm, 08/19/19 8:02:00 EST, Height Start Date: 10/07/19 Status: Ordered Eliquis 5 mg oral tablet 1 tablet, By Mouth, 2 times a day, # 180 tablet, 3 Refills, Maintenance, 07/12/20 14:12:00 EST, [facility], 157, cm, 05/07/20 11:34:00 EDT, Height, 91, kg, 02/28/20 22:14:00 EDT, Dry Weight Start Date: 07/12/20 Status: Ordered gabapentin 400 mg oral capsule 400 mg, 1, capsule, By Mouth, 3 times a day, # 270 capsule, Refills 2, Tot. Refills 2, Maintenance,03/30/20 8:48:00 EDT, Route to Pharmacy Electronically, [facility]/pharmacy #[id number], 157, cm, 03/11/20 12:49:00 EDT, Height, 91, kg, 02/28/20 22:14:00 EDT, Dry... Start Date: 03/30/20 Stop Date: 12/25/20 Status: Ordered HYDROmorphone 2 mg oral tablet 1 tablet = 2 mg, By Mouth, Daily at bedtime, PRN as needed for pain, # 28 tablet, 0 Refills, Maintenance, 08/30/20 10:02:00 EST, Tablet, [facility]/pharmacy #[id number], Partial fill upon patient request, 157, [...]
--- OUTSIDE RECORDS SUMMARY | 2024-02-08 01:06 | XMS_ITS | Continuity of Care Document ---
Author Organization [facility] Address [address] [place] [address]- Care Team Providers Care Rn Internship Name Role Phone Rc CORDERO, Mick Clay Primary Care Physician [place] [facility] [place] 07/11/21 - 08/10/21 [facility] [address] [place] [address]- [place] Allergies, Adverse Reactions, Alerts Substance Reaction [...] 07/09/21 10:04:00 EST, Route to Pharmacy Electronically, [facility]/pharmacy #[id number], Partial fill upon patient request if the prescription is for a schedule II opioid drJohann. Start Date: 07/09/21 Stop Date: 07/04/22 Status: Ordered Cosopt 2.23%-0.68% ophthalmic solution 1 drops, Eyes, Both, 2 times a day, # 10 mL, 0 Refills, Maintenance, 03/23/21 9:41:00 EDT, Solution, [facility]/pharmacy #[id number], Partial fill upon patient [...] 5 Refills, Maintenance, 10/07/19 10:56:00 EDT, Gel, [facility]/pharmacy #[id number], 160, cm, 08/19/19 8:02:00 EST, Height Start Date: 10/07/19 Status: Ordered Eliquis 5 mg oral tablet 1 tablet, By Mouth, 2 times a day, # 180 tablet, 3 Refills, [facility], 158, cm, 06/09/21 10:14:00 EST, Height, 98.6, kg, 04/11/21 15:59:00 EDT, Dry Weight Start Date: 06/17/21 Status: Ordered empagliflozin 10 mg oral tablet 1 tablet = 10 mg, By Mouth, Daily in AM, # 90 tablet, 3 Refills, Maintenance, 06/09/21 12:06:00 EST, Tablet, [facility]/pharmacy #[id number], Partial fill upon patient [...] 07/31/21 10:21:00 EST, Route to Pharmacy Electronically, [facility]/pharmacy #[id number], 159, cm, 07/25/21 11:20:00 EST, Height, 98, kg, 07/06/21 19:57:00 EST, Dry Weight Start Date: 07/31/21 Status: Ordered isosorbide mononitrate 30 mg oral tablet, extended release 1 tablet, By Mouth, Daily, for 90 days, # 90 tablet, 3 Refills, Physician Stop 04/20/22 16:32:00 EDT, 04/25/21 16:32:00 EDT, [facility]/pharmacy #[id number], 158, cm, 04/25/21 14:49:00 EDT, Height, 98.6, kg, 04/11/21 15:59:00 EDT, Dry Weight Start Date: 04/25/21 Stop Date: 04/20/22 Status: Ordered latanoprost 0.005% ophthalmic solution See Instructions, INSTILL 1 DROP IN BOTH EYES DAILY BEFORE DINNER, # 2.5 mL, 0 Refills, [facility]248, 18, INSTILL 1 DROP IN BOTH EYES DAILY BEFORE DINNER, 158, cm, 04/14/21 11:28:00 EDT, Height, 98.6, kg, 04/11/21 15:59:00 EDT, Dry Weight Start Date: 04/14/21 Status: Ordered Lipitor 40 mg oral tablet 1 tablet = 40 mg, By Mouth, Daily, # 30 tablet, 5 Refills, Maintenance, 04/28/21 6:50:00 EDT, Tablet, [facility]/pharmacy #[id number], Partial fill upon patient [...] 12/06/20 13:03:00 EDT, Route to Pharmacy Electronically, [facility]/pharmacy #[id number], Partial fill upon patient [...] 0 Refills, Maintenance, 03/15/21 12:38:00 EDT, Tablet, [facility]/pharmacy #[id number], Partial fill... Start Date: [...] 05/14/21 12:51:00 EDT, Route to Pharmacy Electronically, [facility]/pharmacy #[id number], Partial fill upon patient request if the prescription is... Start Date: 05/14/21 Stop Date: 11/10/21 Status: Ordered torsemide 20 mg oral tablet 1 tablet = 20 mg, By Mouth, Daily, # 30 tablet, 5 Refills, Maintenance, 05/10/21 4:19:00 EDT, Tablet, [facility]/pharmacy #[id number], Partial fill upon patient [...]
--- OUTSIDE RECORDS SUMMARY | 2024-02-08 01:06 | XMS_ITS | Continuity of Care Document ---
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 Refills 0, Maintenance, 09/20/20 14:38:00 EST, Route to Pharmacy Electronically, [facility]/pharmacy #[id number], Partial fill upon patient request if the prescription is for a schedule II opioid drug... Start Date: 09/20/20 Status: Ordered azaTHIOprine 50 mg oral tablet 50 mg, 1, tablet, By Mouth, Daily, # 60 tablet, Refills 0, Maintenance, 01/06/21 11:32:00 EDT, Partial fill upon patient request if the prescription is for a schedule II opioid drug. Start Date: 01/06/21 Status: Ordered budesonide 3 mg oral delayed release capsule 1 capsule = 3 mg, By Mouth, Daily in AM, # 30 capsule, 5 Refills, Acute 02/27/21 10:03:00 EDT, 11/25/20 10:36:00 EDT, [facility]/pharmacy #[id number], Partial fill upon patient [...] 5 Refills, Maintenance, 10/07/19 10:56:00 EDT, Gel, [facility]/pharmacy #[id number], 160, cm, 08/19/19 8:02:00 EST, Height Start Date: 10/07/19 Status: Ordered Eliquis 5 mg oral tablet 1 tablet, By Mouth, 2 times a day, # 180 tablet, 3 Refills, Maintenance, 07/12/20 14:12:00 EST, [facility], 157, cm, 05/07/20 11:34:00 EDT, Height, 91, [...] 0 Refills, Maintenance, 08/30/20 10:02:00 EST, Tablet, [facility]/pharmacy #[id number], Partial fill upon patient request, 157, cm, 08/30/20 7:27:00 EST, Height, 91, kg, 02/28/20 22:... Start Date: 08/30/20 Status: Ordered metoprolol 25 mg oral tablet, extended release 25 mg, 1, tablet, By Mouth, Daily, # 30 tablet, Refills 5, Tot. Refills 5, Maintenance, 12/06/20 13:03:00 EDT, Route to Pharmacy Electronically, [facility]/pharmacy #[id number], Partial fill upon patient request if the prescription is for a schedule II opioid drug... Start Date: 12/06/20 Stop Date: 06/04/21 Status: Ordered predniSONE 5 mg oral tablet See Instructions, Take 8 pills (40 mg) a day for five days then decrease by one pill every 5 days.,# 180 tablet, 0 Refills, Maintenance, 11/25/20 12:14:00 EDT, Tablet, [facility]/pharmacy #[id number], Partial fill upon patient [...] tablet, 0 Refills,Soft Stop, 10/21/20 16:26:00 EDT, [facility]/pharmacy #[id number], Partial fill upon patient [...]
--- OUTSIDE RECORDS SUMMARY | 2024-02-08 01:06 | XMS_ITS | Continuity of Care Document ---
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 Role Phone Mick Tatum MD Primary Care Physician [phone] [place] [facility] [place] 05/21/23 - 07/05/23 [facility] [address] [place] [address] Drive, [address] [place], [place] [address] Attending Physician: Mark Tovar MD Referring Physician: Mick Tatum MD Allergies, Adverse Reactions, Alerts Substance Reaction Severity Status amoxicillin 1 Active Contrast Dye Active egg-containing compound 2 Re solved Other Food Allergy 3 chicken, peppers, onions Resolved Other Environmental Allergy 4 Active Benadryl Shaking Active Cats Active Dust Active 1Tolerates ceftriaxone 2Pt states she does [...] toxoids (Td) 5 07/23/96 Recorde juan pablo 1Result Comment: [id number] 2Location History: DR LOAIZA 3Location History: DR LOAIZA 4Location History: DR LOAIZA 5Location History: DR LOAIZA Medications atorvastatin 40 mg oral tablet 1 tablet, By Mouth, Daily at bedtime, # 90 tablet, 1 Refills, Maintenance, 05/04/23 6:30:00 EDT, [facility], 157, cm, 03/21/23 14:39:00 EDT, Height, 94.3, [...] Gm, 1 Refills, Maintenance, 06/29/23 16:21:00 EST, [facility]/pharmacy #[id number], Partial safia... Start Date: 06/29/23 Status: Ordered Diflucan 150 mg oral tablet See Instructions, 1/2 tablet every 3 days for 12 days, # 2 tablet, 0 Refills, Soft Stop, 05/31/23 7:14:00 EST, [facility]/pharmacy #[id number], Partial fill upon patient request if the prescription is for a schedule II opioid drug., 157, cm, 05/31/23 6:38:00 EST,... Start Date: 05/31/23 Status: Ordered duloxetine 20 mg oral enteric coated capsule 1 capsule = 20 mg, By Mouth, Daily at bedtime, # 30 capsule, 2 Refills, Maintenance, 06/28/23 12:37:00 EST, [facility]/pharmacy #[id number], Partial fill upon patient request if the prescription is for a scheduleII opioid drug., 157, cm, 06/27/23 16:10:00 EST, [facility] Start Date: 06/28/23 Status: Ordered Eliquis 5 mg oral tablet 1 tablet, By Mouth, 2 times a day, # 180 tablet, 3 Refills, Maintenance, 06/15/23 1:44:00 EST, [facility], 157, cm, 05/31/23 6:38:00 EST, Height, 94.3, kg, 01/19/22 4:25:00 EDT, Dry Weight Start Date: 06/15/23 Status: Ordered HYDROmorphone 2 mg oral tablet 1 tablet = 2 mg, By Mouth, Every 6 hours, PRN Pain , Severe, Dx: M51.36, # 28 tablet, 0 Refills, Acute 11/18/23 15:27:00 EDT, 07/19/23 15:25:00 EST, [facility]/pharmacy #[id number], Partial fill upon patient request if the prescription is for a schedule II opioid... Start Date: 07/19/23 Stop Date: 11/18/23 Status: Ordered isosorbide mononitrate 30 mg oral tablet, extended release 1 tablet, By Mouth, Daily, # 90 tablet, 3 Refills, Maintenance, 06/13/23 8:27:00 EST, [facility], 157, cm, 05/31/23 6:38:00 EST, Height, 94.3, kg, 01/19/22 4:25:00 EDT, Dry Weight Start Date: 06/13/23 Status: Ordered isosorbide mononitrate 60 mg oral tablet, extended release 1 tablet, By Mouth, 2 times a day, # 180 tablet, 3 Refills, Maintenance, 06/13/23 8:27:00 EST, [facility], 157, cm, 05/31/23 6:38:00 EST, Height, 94.3, kg, 01/19/22 4:25:00 EDT, Dry Weight Start Date: 06/13/23 Status: Ordered Jardiance 10 mg oral tablet 1 tablet, By Mouth, Daily in AM, # 90 tablet, 3 Refills, Maintenance, 06/04/23 8:09:00 EST, [facility], 157, cm, 05/31/23 6:38:00 EST, Height, 94.3, kg, 01/19/22 4:25:00 EDT, Dry Weight Start Date: 06/04/23 Stop Date: 09/02/23 Status: Ordered Metoprolol Succinate ER 25 mg oral tablet, extended release 1 tablet, By Mouth, Daily, # 90 tablet, 3 Refills, 09/30/22 20:06:00 EST, [facility]/pharmacy #[id number], 157, cm, 09/15/22 11:19:00 EST, Height, 94.3, kg, 01/19/22 4:25:00 EDT, Dry Weight Start Date: 09/30/22 Status: Ordered nitroglycerin 0.4 mg sublingual tablet 1 tablet = 0.4 mg, Sublingual, Every 5 minutes, PRN as needed for chest pain, not to exceed 3 doses/15 min--if pain persists, seek medical attention, # 100 tablet, 0 Refills, Maintenance, 12/19/22 9:51:00 EDT, Tablet, [facility]/pharmacy #[id number], Partial fill... Start Date: 12/19/22 Status: Ordered oxyCODONE 5 mg oral tablet 5 mg, 1, tablet, By Mouth, 2 times a day, PRN, # 56 tablet, Refills 0, Tot. Refills 0, Acute 06/28/24 12:36:00 EST, as needed for pain, 06/28/23 12:35:00 EST, Route to Pharmacy Electronically, [facility]/pharmacy #[id number], Partial fill upon patient request if t... Start Date: 06/28/23 Stop Date: 06/28/24 Status: Ordered pantoprazole 40 mg oral delayed release tablet 0 Refills, Maintenance, 03/21/23 14:39:00 EDT Start Date: 03/21/23 Status: Ordered rOPINIRole 0.5 mg oral tablet 1 tablet, By Mouth, 4 times a day, # 360 tablet, 1 Refills, Maintenance, 01/22/23 9:08:00 EDT, [facility], 157, cm, 12/28/22 14:14:00 EDT, Height, 94.3, kg, 01/19/22 4:25:00 EDT, Dry Weight Start Date: 01/22/23 Status: Ordered spironolactone 25 mg oral tablet 25 mg, 1, tablet, By Mouth, Daily, # 90 tablet, Refills 3, Tot. Refills 3, Maintenance, 10/09/22 15:42:00 EDT, [id number] fill upon patient request if the prescription is for a schedule II opioid drug... Start Date: 10/09/22 Stop Date: 10/04/23 Status: Ordered torsemide 20 mg oral tablet 2 tablet = 40 mg, By Mouth, Daily, for 90 days, # 180 tablet, 3 Refills, Physician Stop 07/26/23 8:14:00 EST, 07/31/22 8:14:00 EST, [facility]/pharmacy #[id number], 157, cm, 07/27/22 15:56:00 [...] Care Nurse Name: Estrellita Putnam RN Position: [facility] RN Member Role: Primary Care Nurse Name: Marlen Kenny RN Position: [facility] RN Member Role: Primary Care Nurse Name: Toshia Muhammad RN Position: [facility] RN Martha Member Role: Primary Care Nurse Name: Suleman Jones RN Position: [facility] RN Member Role: Primary Care Nurse Name: Kathy Medina RN Position: [facility] RN Member Role: Primary Care Nurse Name: Marguerite Wang RN Position: [facility] RN Member Role: Primary Care Nurse Name: Mick Tatum MD Position: [facility] Physician - Primary Care Member Role: PCP Address: Address: [address] [place] [address]- Name: Svitlana Clark RN Position: [facility] RN Member Role: Primary Care Nurse Name: Yoana Guevara RN Position: [facility] RN Member Role: Primary Care Nurse Name: Pierre Groves RN Position: [facility] RN Member Role: Primary Care Nurse Name: Carmen Murphy NP Position: [facility] PCO Associate Professional Member Role: Primary Care Nurse Address: Address: [address] [place] [address]- Name: Rylie Ordonez RN Position: [facility] AMB Nurse Member Role: Primary Care Nurse Name: Marisa Negrete RN Position: [facility] SN RN Member Role: Primary Care Nurse Name: Aditi Brown RN Position: [facility] RN Member Role: Primary Care Nurse Name: Chana Cazares RN Position: [facility] RN Member Role: Primary Care Nurse Name: Toshia Urbina RN Position: [facility] RN Member Role: Primary Care Nurse Name: Isabel Gray Position: [facility] MA Straddle Bug Operator Member Role: Construction Checker Name: Aniyah Sloan RN Position: [facility] SN RN Member Role: Primary Care Nurse Name: Rosemary Ramon RN Position: [facility] OB RN Member Role: Primary Care Nurse Name: Sneha Newton RN Position: [facility] Hospital Technology Integration Specialist Member Role: Primary Care Nurse Care Team Related Persons Name: CLAUDIA URBINA Address: home [address] [place] [address] Name: RALPH SÁNCHEZ Address: home [address] [place], [place] Name: DONY CARCAMO Address: home [address] [facility] [place] [address]
--- OUTSIDE RECORDS SUMMARY | 2024-02-08 01:06 | XMS_ITS | Continuity of Care Document ---
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 Name Role Phone Mick Tatum MD Primary Care Physician [phone] Encounter [facility] Date(s): 10/12/22 - 10/19/22 [facility] Adult [address] [place] [address]- Attending Physician: Mick Tatum MD Allergies, Adverse Reactions, Alerts Substance Reaction Severity Status amoxicillin 1 Active Cats Active Other Environmental Allergy 2 Active Other Food Allergy 3 chicken, peppers, onions Resolved Benadryl Shaking Active Contrast Dye Active Dust [...] Given Parent Or Guardian Refuses 1Result Comment: [id number] 2Location History: DR LOAIZA 3Location History: DR LOAIZA 4Location History: DR LOAIZA 5Location History: DR LOAIZA Medications atorvastatin 40 mg oral tablet 1 tablet, By Mouth, Daily at bedtime, # 90 tablet, 3 Refills, Maintenance, 05/13/22 7:24:00 EDT, [facility], 157, cm, 05/12/22 13:47:00 EDT, Height, 94.3, [...] 5 Refills, Maintenance, 05/13/22 9:34:00 EDT, Gel, [facility]/pharmacy #[id number], 157, cm, 05/12/22 13:47:00 EDT, Height, 94.3, kg, 01/19/22 4:25:00 EDT, Dry Weight Start Date: 05/13/22 Status: Ordered Eliquis 5 mg oral tablet 1 tablet, By Mouth, 2 times a day, # 180 tablet, 3 Refills, Maintenance, 05/27/22 16:57:00 EDT, [facility], 157, cm, 05/12/22 13:47:00 EDT, Height, 94.3, kg, 01/19/22 4:25:00 EDT, Dry Weight Start Date: 05/27/22 Status: Ordered empagliflozin 10 mg oral tablet 1 tablet = 10 mg, By Mouth, Daily in AM, # 90 tablet, 3 Refills, Maintenance, 06/09/22 12:36:00 EST, Tablet, [facility]/pharmacy #[id number], Partial [...] 08/28/22 15:05:00 EST, Route to Pharmacy Electronically, [facility]/pharmacy #[id number], 157, cm, 07/27/22 15:56:00 EST, Height, 94.3, kg, 01/19/22 4:25:00 EDT, Dry Weight Start Date: 08/28/22 Status: Ordered HYDROmorphone 2 mg oral tablet 1 tablet = 2 mg, By Mouth, Every 6 hours, PRN Pain , Severe, # 20 tablet, 0 Refills, Acute 11/13/2311:15:00 EDT, 10/12/22 12:15:00 [facility], [id number], Partial fill upon patient request if the prescription is for a schedule II opioid drug., 157,... Start Date: 10/12/22 Stop Date: 11/12/22 Status: Ordered isosorbide mononitrate 60 mg oral tablet, extended release 60 mg, 1, tablet, By Mouth, 2 times a day, # 180 tablet, Refills 3, Tot. Refills 3, Maintenance, 07/10/22 16:07:00 EST, Route to Pharmacy Electronically, [facility]/pharmacy #[id number], Partial fill upon patientrequest if the prescription is for a schedule II op... Start Date: 07/10/22 Status: Ordered latanoprost 0.005% ophthalmic solution See Instructions, INSTILL 1 DROP IN BOTH EYES DAILY BEFORE DINNER, # 2.5 mL, 0 Refills, [facility], 18, INSTILL 1 DROP IN BOTH EYES DAILY BEFORE DINNER, 158, cm, 04/14/21 11:28:00 EDT, Height, 98.6, kg, 04/11/21 15:59:00 EDT, Dry Weight Start Date: 04/14/21 Status: Ordered Metoprolol Succinate ER 25 mg oral tablet, extended release 1 tablet, By Mouth, Daily, # 90 tablet, 3 Refills, 09/30/22 20:06:00 EST, [facility]/pharmacy #[id number], 157, cm, 09/15/22 11:19:00 [...] tablet, 1 Refills, Maintenance, 07/25/22 9:33:00 EST, [facility], 157, cm, 07/10/22 15:50:00 EST, Height, 94.3, kg, 01/19/22 4:25:00 EDT, Dry Weight Start Date: 07/25/22 Status: Ordered spironolactone 25 mg oral tablet 25 mg, 1, tablet, By Mouth, Daily, # 90 tablet, Refills 3, Tot. Refills 3, Maintenance, 10/09/22 15:42:00 EDT, [facility] Electronically, [facility] [...] 05/20/22 16:10:00 EDT, Route to Pharmacy Electronically, [facility]/pharmacy #[id number], Partial fill uponpatient request [...] recent to oldest [Reference Range]: 1 Height 157.0 cm (10/12/22 11:13 AM) Oxygen Saturation [94-100 %] 96 % (10/12/22 11:13 AM) Pulse Rate [55-90 bpm] 71 bpm (10/12/22 11:13 AM) Blood Pressure [90-138/55-84 mm Hg] 110/ 76mm Hg (10/12/22 11:13 AM) Mode of Delivery (Oxygen) Room air (10/12/22 11:13 AM) Blood pressure sites Arm, left (10/12/22 11:13 AM) Social History Social History Type Response Smoking Status Never (less than 100 in lifetime) entered on: 06/27/18 Sex Patient Care team information Care Team Personnel Name: Lisa Carlson RN Position: [facility] RN Member Role: Primary Care Nurse Name: Estrellita Putnam RN Position: S RN Member Role: Primary Care Nurse Name: Marlen Kneny RN Position: S RN Member Role: Primary Care Nurse Name: Toshia Muhammad RN Position: [facility] RN Supv Member Role: Primary Care Nurse Name: Suleman Jones RN Position: S RN Member Role: Primary Care Nurse Name: Kathy Medina RN Position: S RN Member Role: Primary Care Nurse Name: Marguerite Wang RN Position: S RN Member Role: Primary Care Nurse Name: Mick Tatum MD Position: [facility] Primary Care Physician Member Role: PCP Address: Address: [address] [place] [id number] Name: Svitlana Clark RN Position: [facility] RN Member Role: Primary Care Nurse Name: Yoana Guevara RN Position: [facility] RN Member Role: Primary Care Nurse Name: Pierre Groves RN Position: [facility] RN Member Role: Primary Care Nurse Name: Carmen Murphy RN Position: [facility] RN Member Role: Primary Care Nurse Name: Rylie Ordonez RN Position: [facility] PCO RN Member Role: Primary Care Nurse Name: Aditi Brown RN Position: [facility] RN Member Role: Primary Care Nurse Name: Chana Cazares RN Position: [facility] RN Member Role: Primary Care Nurse Name: Toshia Urbina RN Position: [facility] RN Member Role: Primary Care Nurse Name: Aniyah Sloan RN Position: [facility] SN RN Member Role: Primary Care Nurse Name: Rosemary Ramon RN Position: [facility] OB RN Member Role: Primary Care Nurse Name: Sneha Newton RN Position: [facility] Platform Operations Director Member Role: Primary Care Nurse Care Team Related Persons Name: CLAUDIA URBINA Address: [address] [place] [address] Name: PRINCESS RALPH Address: [address] [place] [address] Name: DONY CARCAMO Address: home [address] [place] [address]
--- OUTSIDE RECORDS SUMMARY | 2024-02-08 01:06 | XMS_ITS | Continuity of Care Document ---
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 Role Phone Mick Tatum MD Primary Care Physician Encounter [facility] Date(s): 09/07/22 - 10/07/22 [facility] Adult [address] [place] [address]- Allergies, Adverse Reactions, Alerts Substance Reaction Severity Status amoxicillin 1 Active Benadryl Shaking Active Contrast Dye Active Other Environmental Allergy 2 Active Cats Active Dust Active egg-containing compound 3 Re [...] Given Parent Or Guardian Refuses 1Result Comment: [id number] 2Location History: DR LOAIZA 3Location History: DR LOAIZA 4Location History: DR LOAIZA 5Location History: DR LOAIZA Medications atorvastatin 40 mg oral tablet 1 tablet, By Mouth, Daily at bedtime, # 90 tablet, 3 Refills, Maintenance, 05/13/22 7:24:00 EDT, [facility], 157, cm, 05/12/22 13:47:00 EDT, Height, 94.3, [...] 5 Refills, Maintenance, 05/13/22 9:34:00 EDT, Gel, [facility]/pharmacy #[id number], 157, cm, 05/12/22 13:47:00 EDT, Height, 94.3, kg, 01/19/22 4:25:00 EDT, Dry Weight Start Date: 05/13/22 Status: Ordered Eliquis 5 mg oral tablet 1 tablet, By Mouth, 2 times a day, # 180 tablet, 3 Refills, Maintenance, 05/27/22 16:57:00 EDT, [facility], 157, cm, 05/12/22 13:47:00 EDT, Height, 94.3, kg, 01/19/22 4:25:00 EDT, Dry Weight Start Date: 05/27/22 Status: Ordered empagliflozin 10 mg oral tablet 1 tablet = 10 mg, By Mouth, Daily in AM, # 90 tablet, 3 Refills, Maintenance, 06/09/22 12:36:00 EST, Tablet, [facility]/pharmacy #[id number], Partial fill upon patient request if the prescription is for a schedule II opioid drug., 157, cm, 05/12/22 13:47:00 EDT, H... Start Date: 06/09/22 Stop Date: 06/04/23 Status: Ordered gabapentin 400 mg oral capsule 2, capsule, By Mouth, 3 times a day, # 180 capsule, Refills 5, Tot. Refills 5, Maintenance, 08/28/22 15:05:00 EST, Route to Pharmacy Electronically, [facility]/pharmacy #[id number], 157, cm, 07/27/22 15:56:00 EST, Height, 94.3, kg, 01/19/22 4:25:00 EDT, Dry Weight Start Date: 08/28/22 Status: Ordered isosorbide mononitrate 60 mg oral tablet, extended release 60 mg, 1, tablet, By Mouth, 2 times a day, # 180 tablet, Refills 3, Tot. Refills 3, Maintenance, 07/10/22 16:07:00 EST, Route to Pharmacy Electronically, [facility]/pharmacy #[id number], Partial fill upon patientrequest if the prescription is for a schedule II op... Start Date: 07/10/22 Status: Ordered latanoprost 0.005% ophthalmic solution See Instructions, INSTILL 1 DROP IN BOTH EYES DAILY BEFORE DINNER, # 2.5 mL, 0 Refills, [facility], 18, INSTILL 1 DROP IN BOTH EYES DAILY BEFORE DINNER, 158, cm, 04/14/21 11:28:00 EDT, Height, 98.6, kg, 04/11/21 15:59:00 EDT, Dry Weight Start Date: 04/14/21 Status: Ordered Metoprolol Succinate ER 25 mg oral tablet, extended release 1 tablet, By Mouth, Daily, # 90 tablet, 3 Refills, 09/30/22 20:06:00 EST, [facility]/pharmacy #[id number], 157, cm, 09/15/22 11:19:00 EST, Height, 94.3, kg, 01/19/22 4:25:00 EDT, Dry Weight Start Date: 09/30/22 Status: Ordered nitroglycerin 0.4 mg sublingual tablet 1 tablet = 0.4 mg, Sublingual, Every 5 minutes, PRN as needed for chest pain, not to exceed 3 doses/15 min--if pain persists, seek medical attention, # 100 tablet, 0 Refills, Maintenance, 03/15/21 12:38:00 EDT, Tablet, [facility]/pharmacy #[id number], Partial fill... Start Date: 03/15/21 Status: Ordered rOPINIRole 0.5 mg oral tablet 1 tablet, By Mouth, 4 times a day, # 360 tablet, 1 Refills, Maintenance, 07/25/22 9:33:00 EST, [facility], 157, cm, 07/10/22 15:50:00 EST, Height, 94.3, [...] 05/20/22 16:10:00 EDT, [id number], Partial fill uponpatient request if the [...] (less than 100 in lifetime) entered on: 12/6/18 Sex Patient Care team information Care Team Personnel Name: Mojgan Lopez RN Position: [facility] RN Member Role: Primary Care Nurse Name: Lisa Carlson RN [facility] [facility] [place] Care Physician Member Role: PCP Address: Address: [address] [place] [id number] Name: Svitlana Clark RN Position: [...] Care Nurse Name: Sneha Newton RN Position: [facility] Cloud Automation Tester Member Role: Primary Care Nurse Care Team Related Persons Name: CLAUDIA URBINA Address: home [address] [place], [place] Name: RALPH SÁNCHEZ Address: [address] [place], [place] Name: DONY CARCAMO Address: home [address] [place], [place]
--- OUTSIDE RECORDS SUMMARY | 2024-02-08 01:06 | XMS_ITS | Continuity of Care Document ---
Author Organization [facility] Gopi Jose lt Address [address] [place] [address]- Care Team Providers Care Terrapin Fisher Name Role Phone Mick Tatum MD Primary Care Physician [phone] Encounter [facility] Date(s): 12/21/21 - 01/20/22 [facility] Ugo Willley Adult [address] [place] [address]- Attending Physician: Admtr, Julia Admitting Physician: Admtr, [...] 6:58:00 EDT, 01/18/22 6:58:00 EDT, CR Capsule, [facility]/pharmacy #[id number], Partial fill upon patient request if the prescription is for a schedule II opioid drug., 159, cm, 12/21... Start Date: 01/18/22 Stop Date: 01/18/23 Status: Ordered chem 7 in 3 days [...] 07/09/21 10:04:00 EST, Route to Pharmacy Electronically, [facility]/pharmacy #[id number], Partial fill upon patient request if the prescription is for a schedule II opioid drUriel.. Start Date: 07/09/21 Stop Date: 07/04/22 Status: Ordered Cosopt 2.23%-0.68% ophthalmic solution 1 drops, Eyes, Both, 2 times a day, # 10 mL, 0 Refills, Maintenance, 03/23/21 9:41:00 EDT, Solution, [facility]/pharmacy #[id number], Partial fill upon patient request if the prescription is for a schedule II opioid drug., 1 drops Eyes, Both 2 times a day, 159, cm... Start Date: 03/23/21 Status: Ordered diclofenac 1% topical gel 1 application, Topically, 4 times a day, # 100 Gm, 5 Refills, Maintenance, 10/07/19 10:56:00 EDT, Gel, [facility]/pharmacy #[id number], 160, cm, 08/19/19 8:02:00 EST, Height Start Date: 10/07/19 Status: Ordered Eliquis 5 mg oral tablet 1 tablet, By Mouth, 2 times a day, # 180 tablet, 3 Refills, [facility], 158, cm, 06/09/21 10:14:00 EST, Height, 98.6, kg, 04/11/21 15:59:00 EDT, Dry Weight Start Date: 06/17/21 Status: Ordered empagliflozin 10 mg oral tablet 1 tablet = 10 mg, By Mouth, Daily in AM, # 90 tablet, 3 Refills, Maintenance, 06/09/21 12:06:00 EST, Tablet, [facility]/pharmacy #[id number], Partial fill upon patient request [...] 5, Route to Pharmacy Electronically, [facility], 159, cm, 12/21/21 15:41:00 EDT, Height, 93.6, kg, 01/06/22 9:12:00 EDT, Dry Weight Start Date: 01/17/22 Status: Ordered isosorbide mononitrate 30 mg oral tablet, extended release 1 tablet, By Mouth, Daily, for 90 days, # 90 tablet, 3 Refills, Physician Stop 04/20/22 16:32:00 EDT, 04/25/21 16:32:00 EDT, [facility]/pharmacy #[id number], 158, cm, 04/25/21 14:49:00 EDT, Height, 98.6, kg, 04/11/21 15:59:00 EDT, Dry Weight Start Date: 04/25/21 Stop Date: 04/20/22 Status: Ordered latanoprost 0.005% ophthalmic solution See Instructions, INSTILL 1 DROP IN BOTH EYES DAILY BEFORE DINNER, # 2.5 mL, 0 Refills, [facility], 18, INSTILL 1 DROP IN BOTH EYES DAILY BEFORE DINNER, 158, cm, 04/14/21 11:28:00 EDT, Height, 98.6, kg, 04/11/21 15:59:00 EDT, Dry Weight Start Date: 04/14/21 Status: Ordered Lipitor 40 mg oral tablet 1 tablet = 40 mg, By Mouth, Daily at bedtime, # 30 tablet, 5 Refills, Maintenance, 04/28/21 6:50:00EDT, Tablet, [facility]/pharmacy #[id number], Partial fill upon patient request if the prescription is for a schedule II opioid drug., 158, cm, 04/25/21 14:49:00 ED... Start Date: 04/28/21 Status: Ordered MAgnesium level in 3 days MAgnesium level in 3 days, See Instructions, # 1 each, Refills 0, Tot. Refills 0, Maintenance, Pls send the results to Dr Mikc Tatum, 04/14/21 13:04:00 EDT, Supply Start Date: 04/14/21 Status: Ordered Metoprolol Succinate ER 25 mg oral tablet, extended release 1 tablet, By Mouth, Daily, # 90 tablet, 2 Refills, [facility], 159, cm, 12/21/21 15:41:00 EDT,Height, 93.6, kg, 01/06/22 9:12:00 EDT, Dry Weight Start Date: 01/16/22 Status: Ordered nitroglycerin 0.4 mg sublingual tablet 1 tablet = 0.4 mg, Sublingual, Every 5 minutes, PRN as needed for chest pain, not to exceed 3 doses/15 min--if pain persists, seek medical attention, # 100 tablet, 0 Refills, Maintenance, 03/15/21 12:38:00 EDT, Tablet, [facility]/pharmacy #[id number], Partial fill... Start Date: 03/15/21 Status: Ordered rOPINIRole 0.5 mg oral tablet 1 tablet, By Mouth, 4 times a day, # 360 tablet, 1 Refills, [facility], 159, cm, 11/14/21 9:20:00 EDT, Height, 98, kg, 07/06/21 19:57:00 EST, Dry Weight Start Date: 11/22/21 Status: Ordered spironolactone 25 mg oral tablet 25 mg, 1, tablet, By Mouth, 2 times a day, # 180 tablet, Refills 3, Tot. Refills 3, Maintenance, 11/14/21 9:55:00 EDT, Route to Pharmacy Electronically, [facility]/pharmacy #[id number], Partial fill upon patient request if the prescription is for a schedule II opi... Start Date: 11/14/21 Stop Date: 11/09/22 Status: Ordered torsemide 20 mg oral tablet 2 tablet = 40 mg, By Mouth, Daily, # 90 tablet, 1 Refills, 12/13/21 10:45:00 EDT, [facility]/pharmacy #[id number], 159, cm, 12/13/21 10:22:00 EDT, [...]
--- OUTSIDE RECORDS SUMMARY | 2024-02-08 01:06 | XMS_ITS | Continuity of Care Document ---
Author Organization [facility] y Address [address] [place] [address] yvette, [address] [place] [address]- Care Team Providers Care Group Chief Operator Name Role Phone Rc CORDERO, Mick Clay Primary Care Physician [phone] Encounter [facility] Date(s): 05/21/23 - 06/20/23 [facility] [address] [place] [address] Drive, [address] [place] [address]- Allergies, Adverse Reactions, Alerts Substance Reaction Severity Status amoxicillin 1 Active egg-containing compound 2 Re solved Other Food Allergy 3 chicken, peppers, onions Resolved Other Environmental Allergy 4 Active Benadryl Shaking Active Cats Active Contrast Dye Active Dust Active 1Tolerates ceftriaxone 2Pt states [...] 5 07/23/96 Recorde juan pablo Bingham Comment: [phone] 2Location History: DR LOAIZA 3Location History: DR LOAIZA 4Location History: DR LOAIZA 5Location History: DR LOAIZA Medications atorvastatin 40 mg oral tablet 1 tablet, By Mouth, Daily at bedtime, # 90 tablet, 1 Refills, Maintenance, 05/04/23 6:30:00 EDT, [id number], 157, cm, 03/21/23 14:39:00 EDT, Height, 94.3, [...] 0 Refills, Soft Stop, 05/31/23 7:14:00 EST, [id number], Partial fill upon patient request if the prescription is for a schedule II opioid drug., 157, cm, 05/31/23 6:38:00 EST,... Start Date: 05/31/23 Status: Ordered Eliquis 5 mg oral tablet 1 tablet, By Mouth, 2 times a day, # 180 tablet, 3 Refills, Maintenance, 06/15/23 1:44:00 EST, [facility], 157, cm, 05/31/23 6:38:00 EST, Height, 94.3, kg, 01/19/22 4:25:00 EDT, Dry Weight Start Date: 06/15/23 Status: Ordered HYDROmorphone 2 mg oral tablet 1 tablet = 2 mg, By Mouth, Every 6 hours, PRN Pain , Severe, Dx: M51.36, # 28 tablet, 0 Refills, Acute 11/18/23 15:27:00 EDT, 07/19/23 15:25:00 EST, [id number], Partial fill upon patient request if the prescription is for a schedule II opioid... Start Date: 07/19/23 Stop Date: 11/18/23 Status: Ordered isosorbide mononitrate 30 mg oral tablet, extended release 1 tablet, By Mouth, Daily, # 90 tablet, 3 Refills, Maintenance, 06/13/23 8:27:00 EST, [facility], 157, cm, 05/31/23 6:38:00 EST, Height, 94.3, kg, 01/19/22 4:25:00 EDT, Dry Weight Start Date: 06/13/23 Status: Ordered isosorbide mononitrate 60 mg oral tablet, extended release 1 tablet, By Mouth, 2 times a day, # 180 tablet, 3 Refills, Maintenance, 06/13/23 8:27:00 EST, [facility], 157, cm, 05/31/23 6:38:00 EST, Height, 94.3, kg, 01/19/22 4:25:00 EDT, Dry Weight Start Date: 06/13/23 Status: Ordered Jardiance 10 mg oral tablet 1 tablet, By Mouth, Daily in AM, # 90 tablet, 3 Refills, Maintenance, 06/04/23 8:09:00 EST, [id number], 157, cm, 05/31/23 6:38:00 EST, Height, 94.3, kg, 01/19/22 4:25:00 EDT, Dry Weight Start Date: 06/04/23 Stop Date: 09/02/23 Status: Ordered Metoprolol Succinate ER 25 mg oral tablet, extended release 1 tablet, By Mouth, Daily, # 90 tablet, 3 Refills, 09/30/22 20:06:00 EST, [facility]/pharmacy #[id number], 157, cm, 09/15/22 11:19:00 EST, Height, 94.3, kg, 01/19/22 4:25:00 EDT, Dry Weight Start Date: 09/30/22 Status: Ordered nitroglycerin 0.4 mg sublingual tablet 1 tablet = 0.4 mg, Sublingual, Every 5 minutes, PRN as needed for chest pain, not to exceed 3 doses/15 min--if pain persists, seek medical attention, # 100 tablet, 0 Refills, Maintenance, 12/19/22 9:51:00 EDT, Tablet, [facility]/pharmacy #[id number], Partial fill... Start Date: 12/19/22 Status: Ordered pantoprazole 40 mg oral delayed release tablet 0 Refills, Maintenance, 03/21/23 14:39:00 EDT Start Date: 03/21/23 Status: Ordered rOPINIRole 0.5 mg oral tablet 1 tablet, By Mouth, 4 times a day, # 360 tablet, 1 Refills, Maintenance, 01/22/23 9:08:00 EDT, [facility], 157, cm, 12/28/22 14:14:00 EDT, Height, 94.3, kg, 01/19/22 4:25:00 EDT, Dry Weight Start Date: 01/22/23 Status: Ordered spironolactone 25 mg oral tablet 25 mg, 1, tablet, By Mouth, Daily, # 90 tablet, Refills 3, Tot. Refills 3, Maintenance, 10/09/22 15:42:00 EDT, Route to Pharmacy Electronically, [facility]/pharmacy #[id number], Partial fill upon patient request if the prescription is for a schedule II opioid drug... Start Date: 10/09/22 Stop Date: 10/04/23 Status: Ordered torsemide 20 mg oral tablet 2 tablet = 40 mg, By Mouth, Daily, for 90 days, # 180 tablet, 3 Refills, Physician Stop 07/26/23 8:14:00 EST, 07/31/22 8:14:00 EST, [facility]/pharmacy #[id number], 157, cm, 07/27/22 15:56:00 EST, [...] Team Personnel Name: Lisa Carlson RN Position: [facility] RN Member Role: Primary Care Nurse Name: Estrellita Putnam RN Position: [facility] RN Member Role: Primary Care Nurse Name: Marlen Kenny RN Position: [facility] RN Member Role: Primary Care Nurse Name: Toshia Muhammad RN Position: [facility] RN Martha Member Role: Primary Care Nurse Name: Suleman Jones RN Position: [facility] RN Member Role: Primary Care Nurse Name: Kathy Medina RN Position: [facility] RN Member Role: Primary Care Nurse Name: Marguerite Wang RN Position: [facility] RN Member Role: Primary Care Nurse Name: Mick Tatum MD Position: [facility] Physician - Primary Care Member Role: PCP Address: Address: [address] [place] [address]- [place] Name: Svitlana Clark RN Position: [facility] RN Member Role: Primary Care Nurse Name: Yoana Guevara RN Position: [facility] RN Member Role: Primary Care Nurse Name: Pierre Groves RN Position: [facility] RN Member Role: Primary Care Nurse Name: Carmen Murphy NP Position: [facility] PCO Associate Professional Member Role: Primary Care Nurse Address: Address: [address] [place] [id number]- [place] Name: Rylie Ordonez RN Position: [facility] KIRSTIN Nurse Member Role: Primary Care Nurse Name: Marisa Negrete RN Position: [facility] RN Member Role: Primary Care Nurse Name: Aditi Brown RN Position: [facility] RN Member Role: Primary Care Nurse Name: Chana Cazares RN Position: [facility] RN Member Role: Primary Care Nurse Name: Toshia Urbina RN Position: [facility] RN Member Role: Primary Care Nurse Name: Isabel Gray Position: [facility] [place] Systems Integration Advisor Member Role: Business Rules Analyst Name: Aniyah Sloan RN Position: [facility] SN RN Member Role: Primary Care Nurse Name: Rosemary Ramon RN Position: [facility] OB RN Member Role: Primary Care Nurse Name: Sneha Newton RN Position: [facility] [employer] Supervisor Member Role: Primary Care Nurse Care Team Related Persons Name: CLAUDIA URBINA Address: [address] [place] [address] Name: RALPH SÁNCHEZ Address: [address] [place] [address] Name: DONY CARCAMO Address: [address] [place] [address]
--- OUTSIDE RECORDS SUMMARY | 2024-02-08 01:06 | XMS_ITS | Continuity of Care Document ---
Author Organization [facility] Address [address] [place] [address]- Care Team Providers Care Electric Distribution Checker Name Role Phone Ignacio Parish MD Primary Care Physician [phone] [place] [facility] [place] 05[place]23/20 [facility] [address] [place] [address]- [facility] Attending Physician: Julia Haile Admitting Physician: AdmJulia watt Referring Physician: AdmtrJulia Allergies, Adverse Reactions, Alerts [...] 8:48:00 EDT, Route to Pharmacy Electronically, [facility]/pharmacy #[id number], 157, cm, 03/11/20 12:49:00 EDT, Height, 91, kg, 02/28/20 22:14:00 EDT, Dry Weight Start Date: 03/30/20 Stop Date: 03/25/21 Status: Ordered cephalexin monohydrate 500 mg oral capsule 1 capsule = 500 mg, By Mouth, 4 times a day, for 28 days, # 112 capsule, 1 Refills, Acute 06/18/20 11:43:00 EST, 04/23/20 11:43:00 EDT, Capsule, [facility]/pharmacy #[id number], 157, cm, 04/23/20 11:28:00 EDT, Height, 91, kg, 02/28/20 22:14:00 EDT, Dry Weight Start Date: 04/23/20 Stop Date: 06/18/20 Status: Ordered Cosopt ophthalmic solution 1 drops, Eyes, Both, 2 times a day, 0 Refills Start Date: 02/09/09 Status: Ordered diclofenac 1% topical gel 1 application, Topically, 4 times a day, # 100 Gm, 5 Refills, Maintenance, 10/07/19 10:56:00 EDT, Gel, [facility]/pharmacy #[id number], 160, cm, 08/19/19 8:02:00 EST, Height Start Date: 10/07/19 Status: Ordered Eliquis 5 mg oral tablet 1 tablet, By Mouth, 2 times a day, # 180 tablet, Refills 3 Tot. Refills 3, [facility]/pharmacy #[id number] Start Date: 06/17/19 Status: Ordered gabapentin 400 mg oral capsule 400 mg, 1, capsule, By Mouth, 3 times a day, # 270 capsule, Refills 2, Tot. Refills 2, Maintenance,03/30/20 8:48:00 EDT, Route to Pharmacy Electronically, [facility]/pharmacy #[id number], 157, cm, 03/11/20 12:49:00 EDT, Height, 91, kg, 02/28/20 22:14:00 EDT, Dry... Start Date: 03/30/20 Stop Date: 12/25/20 Status: Ordered HYDROmorphone 2 mg oral tablet 1 tablet = 2 mg, By Mouth, Every 8 hours, PRN as needed for pain, # 20 tablet, 0 Refills, Maintenance, 05/07/20 13:21:00 EDT, Tablet, [facility]/pharmacy #[id number], Partial fill upon patient request, 157, [...]
--- OUTSIDE RECORDS SUMMARY | 2024-02-08 01:06 | XMS_ITS | Continuity of Care Document ---
Author Organization [facility] Address [address] [place] [address]- Care Team Providers Care Order Dispatcher Chief Name Role Phone Mick Tatum MD Primary Care Physician [place] [facility] [place](s): 10/09/22 - 11/08/22 [facility] [address] [place] [address]- [place] Allergies, Adverse Reactions, Alerts Substance Reaction [...] Given Parent Or Guardian Refuses 1Result Comment: [phone] 2Location History: DR LOAIZA 3Location History: DR LOAIZA 4Location History: DR LOAIZA 5Location History: DR LOAIZA Medications atorvastatin 40 mg oral tablet 1 tablet, By Mouth, Daily at bedtime, # 90 tablet, 3 Refills, Maintenance, 05/13/22 7:24:00 EDT, [facility], 157, cm, 05/12/22 13:47:00 EDT, Height, 94.3, [...] 3 Refills, Maintenance, 05/27/22 16:57:00 EDT, [facility], 157, cm, 05/12/22 13:47:00 EDT, Height, 94.3, kg, 01/19/22 4:25:00 EDT, Dry Weight Start Date: 05/27/22 Status: Ordered empagliflozin 10 mg oral tablet 1 tablet = 10 mg, By Mouth, Daily in AM, # 90 tablet, 3 Refills, Maintenance, 06/09/22 12:36:00 EST, Tablet, [facility]/pharmacy #[id number], Partial fill upon patient request if the prescription is for a schedule II opioid drug., 157, cm, 05/12/22 13:47:00 EDT, H... Start Date: 06/09/22 Stop Date: 06/04/23 Status: Ordered gabapentin 400 mg oral capsule 2, capsule, By Mouth, 3 times a day, # 180 capsule, Refills 5, Tot. Refills 5, Maintenance, 08/28/22 15:05:00 EST, Route to Pharmacy Electronically, [facility]/pharmacy #[id number], 157, cm, 07/27/22 15:56:00 EST, Height, 94.3, kg, 01/19/22 4:25:00 EDT, Dry Weight Start Date: 08/28/22 Status: Ordered HYDROmorphone 2 mg oral tablet 1 tablet = 2 mg, By Mouth, Every 6 hours, PRN Pain , Severe, # 20 tablet, 0 Refills, Acute 11/13/2311:15:00 EDT, 10/12/22 12:15:00 EDT, [facility]/pharmacy #[id number], Partial fill upon patient request if the prescription is for a schedule II opioid drug., 157,... Start Date: 10/12/22 Stop Date: 11/12/22 Status: Ordered isosorbide mononitrate 60 mg oral tablet, extended release 60 mg, 1, tablet, By Mouth, 2 times a day, # 180 tablet, Refills 3, Tot. Refills 3, Maintenance, 07/10/22 16:07:00 EST, [id number] Partial fill upon patientrequest if the prescription is for a schedule II op... Start Date: 07/10/22 Status: Ordered latanoprost 0.005% ophthalmic solution See Instructions, INSTILL 1 DROP IN BOTH EYES DAILY BEFORE DINNER, # 2.5 mL, 0 Refills, [facility] ST[facility] [id number], 18, INSTILL 1 DROP IN BOTH EYES DAILY BEFORE DINNER, 158, cm, 04/14/21 11:28:00 EDT, Height, 98.6, kg, 04/11/21 15:59:00 EDT, Dry Weight Start Date: 04/14/21 Status: Ordered Metoprolol Succinate ER 25 mg oral tablet, extended release 1 tablet, By Mouth, Daily, # 90 tablet, 3 Refills, 09/30/22 20:06:00 EST, [facility]/pharmacy #[id number], 157, cm, 09/15/22 11:19:00 EST, Height, 94.3, kg, 01/19/22 4:25:00 EDT, Dry Weight Start Date: 09/30/22 Status: Ordered nitroglycerin 0.4 mg sublingual tablet 1 tablet = 0.4 mg, Sublingual, Every 5 minutes, PRN as needed for chest pain, not to exceed 3 doses/15 min--if pain persists, seek medical attention, # 100 tablet, 0 Refills, Maintenance, 03/15/21 12:38:00 EDT, Tablet, [facility]/pharmacy #[id number], Partial fill... Start Date: 03/15/21 Status: Ordered rOPINIRole 0.5 mg oral tablet 1 tablet, By Mouth, 4 times a day, # 360 tablet, 1 Refills, Maintenance, 07/25/22 9:33:00 EST, [facility] ST[facility], 157, cm, 07/10/22 15:50:00 EST, Height, 94.3, kg, 01/19/22 4:25:00 EDT, Dry Weight Start Date: 07/25/22 Status: Ordered spironolactone 25 mg oral tablet 25 mg, 1, tablet, By Mouth, Daily, # 90 tablet, Refills 3, Tot. Refills 3, Maintenance, 10/09/22 15:42:00 EDT, Route to Pharmacy Electronically, [facility]/pharmacy #[id number], Partial fill upon patient request if [...] 05/15/23 16:05:00 EDT, 05/20/22 16:05:00 EDT, [facility]/pharmacy #[id number], 157, cm, 05/12/22 13:47:00 EDT, Height, 94.3,kg, 01/19/22 4:25:00 EDT, Dry Weight Start Date: 05/20/22 Stop Date: 05/15/23 Status: Ordered Vitamin B1 100 mg oral tablet 100 mg, 1, tablet, By Mouth, Daily, # 90 tablet, Refills 3, Tot. Refills 3, Acute 05/20/23 16:10:00EDT, 05/20/22 16:10:00 EDT, Route to Pharmacy Electronically, [facility]/pharmacy #[id number], Partial fill uponpatient request if the [...] Team Personnel Name: Lisa Carlson RN Position: [facility] RN Member Role: Primary Care Nurse Name: Estrellita Putnam RN Position: [facility] RN Member Role: Primary Care Nurse Name: Marlen Kenny RN Position: [facility] RN Member Role: Primary Care Nurse Name: Toshia Muhammad RN Position: [facility] RN Martha Member Role: Primary Care Nurse Name: Suleman Jones RN Position: [facility] RN Member Role: Primary Care Nurse Name: Kathy Medina RN Position: [facility] RN Member Role: Primary Care Nurse Name: Lesli Mercedes RN Position: [facility] RN Member Role: Primary Care Nurse Name: Marguerite Wang RN Position: [facility] RN Member Role: Primary Care Nurse Name: Mick Tatum MD Position: [facility] Primary Care Physician Member Role: PCP Address: Address: [address] [place] [id number] Name: Svitlana Clark RN Position: [facility] RN Member Role: Primary Care Nurse Name: Yoana Guevara RN Position: [facility] RN Member Role: Primary Care Nurse Name: Pierre Groves RN Position: [facility] RN Member Role: Primary Care Nurse Name: Carmen Murphy RN Position: [facility] RN Member Role: Primary Care Nurse Name: Rylie Ordonez RN Position: [facility] [place] RN Member Role: Primary Care Nurse Name: Aditi Brown RN Position: [facility] RN Member Role: Primary Care Nurse Name: Chana Cazares RN Position: [facility] RN Member Role: Primary Care Nurse Name: Toshia Urbina RN Position: [facility] RN Member Role: Primary Care Nurse Name: Aniyah Sloan RN Position: [facility] SN RN Member Role: Primary Care Nurse Name: Rosemary Ramon RN Position: [facility] OB RN Member Role: Primary Care Nurse Name: Sneha Newton RN Position: [facility] Intake Assessor Member Role: Primary Care Nurse Care Team Related Persons Name: CLAUDIA URBINA Address: [address] [place] [address] Name: RALPH SÁNCHEZ Address: [address] [place] [address] Name: DONY CARCAMO Address: [address] [place] [address]
--- OUTSIDE RECORDS SUMMARY | 2024-02-08 01:06 | XMS_ITS | Continuity of Care Document ---
Author Organization [facility] Jose Address [address] [place] [address]- Care Team Providers Care Plate Stacker Hand Name Role Phone Mick Tatum MD Primary Care Physician Encounter [facility] [place] Date(s): 01/06/21 - 01/13/21 [facility] Adult [address] [place] [address]- Attending Physician: Mick Tatum MD Allergies, Adverse [...] 03/30/20 8:48:00 EDT, Route to Pharmacy Electronically, [facility]/pharmacy #[id number], 157, cm, 03/11/20 12:49:00 EDT, Height, 91, kg, 02/28/20 22:14:00 EDT, Dry Weight Start Date: 03/30/20 Stop Date: 03/25/21 Status: Ordered aspirin 81 mg oral delayed release tablet 81 mg, 1, tablet, By Mouth, Daily, # 30 tablet, Refills 0, Tot. Refills 0, Maintenance, 09/20/20 14:38:00 EST, Route to Pharmacy Electronically, [facility]/pharmacy #[id number], Partial fill upon patient request [...] Acute 02/27/21 10:03:00 EDT, 11/25/20 10:36:00 EDT, [facility]/pharmacy #[id number], Partial fill upon patient request [...] 5 Refills, Maintenance, 10/07/19 10:56:00 EDT, Gel, [facility]/pharmacy #[id number], 160, cm, 08/19/19 8:02:00 EST, Height Start Date: 10/07/19 Status: Ordered Eliquis 5 mg oral tablet 1 tablet, By Mouth, 2 times a day, # 180 tablet, 3 Refills, Maintenance, 07/12/20 14:12:00 EST, [facility], 157, cm, 05/07/20 11:34:00 EDT, Height, 91, [...] 0 Refills, Maintenance, 08/30/20 10:02:00 EST, Tablet, [facility]/pharmacy #[id number], Partial fill upon patient request, 157, cm, 08/30/20 7:27:00 EST, Height, 91, kg, 02/28/20 22:... Start Date: 08/30/20 Status: Ordered metoprolol 25 mg oral tablet, extended release 25 mg, 1, tablet, By Mouth, Daily, # 30 tablet, Refills 5, Tot. Refills 5, Maintenance, 12/06/20 13:03:00 EDT, Route to Pharmacy Electronically, [facility]/pharmacy #[id number], Partial fill upon patient request if the prescription is for a schedule II opioid drug... Start Date: 12/06/20 Stop Date: 06/04/21 Status: Ordered predniSONE 5 mg oral tablet See Instructions, Take 8 pills (40 mg) a day for five days then decrease by one pill every 5 days.,# 180 tablet, 0 Refills, Maintenance, 11/25/20 12:14:00 EDT, Tablet, [facility]/pharmacy #[id number], Partial fill upon patient request [...] tablet, 0 Refills,Soft Stop, 10/21/20 16:26:00 EDT, [facility]/pharmacy #[id number], Partial fill upon patient request [...] oldest [Reference Range]: 1 Height 157 cm (01/06/21 11:22 AM) Weight 109.09 kg (01/06/21 11:22 AM) Oxygen Saturation [94-100 %] 96 % (01/06/21 11:22 AM) Pulse Rate [55-90 bpm] 78 bpm (01/06/21 11:22 AM) Body Mass Index [18.5-24.99] 44.26 *>HHI* (01/06/21 11:22 AM) Blood Pressure [90-138/55-84 mm Hg] 118/ 82mm Hg (01/06/21 11:22 AM) Temperature [96.8-100.4 DegF] 97.9 DegF (01/06/21 11:22 AM) Blood pressure sites Arm, right (01/06/21 11:22 AM) Temperature Route Oral (01/06/21 11:22 AM) Weight Obtained Via Standing scale (01/06/21 11:22 AM) Social History Social History Type Response Smoking Status Never (less than 100 in lifetime) entered on: 06/27/18 Sex Female
--- OUTSIDE RECORDS SUMMARY | 2024-02-08 01:06 | XMS_ITS | Continuity of Care Document ---
Author Organization [facility] Address [address] [place] [phone]- Care Team Providers Care Irrigation Foreman Name Role Phone Rc CORDERO, Mick Clay Primary Care Physician Encounter [facility] Date(s): 05/31/21 - 06/30/21 [facility] [address] [place] [id number]- [place] Allergies, Adverse Reactions, Alerts Substance Reaction [...] # 90 tablet, 1 Refills, [id number], 159, cm, 03/23/21 9:06:00 EDT, Height, 100.2, kg, 03/15/21 4:17:00 EDT, Dry Weight Start Date: 03/25/21 Status: Ordered aspirin 81 mg oral delayed release tablet 81 mg, 1, tablet, By Mouth, Daily, for 30 days, # 30 tablet, Refills 5, Tot. Refills 5, Hard Stop 10/24/21 13:28:00 EDT, 04/27/21 13:28:00 EDT, Route to Pharmacy Electronically, [facility]/pharmacy #[id number], Partial fill upon patient request if the prescription... Start Date: 04/27/21 Stop Date: 10/24/21 Status: Ordered aspirin 81 mg oral delayed release tablet 81 mg, 1, tablet, By Mouth, Daily, # 30 tablet, Refills 5, Tot. Refills 5, Maintenance, 10/24/21 13:28:00 EDT, Route to Pharmacy Electronically, [facility]/pharmacy #[id number], Partial fill upon patient request if the prescription is for a schedule II opioid drug... Start Date: 10/24/21 Stop Date: 04/22/22 Status: Ordered atorvastatin 40 mg oral tablet 1 tablet, By Mouth, Daily at bedtime, for 90 days, # 90 tablet, 3 Refills, Physician Stop 04/20/22 16:32:00 EDT, 04/25/21 16:32:00 EDT, [facility]/pharmacy #[id number], 158, cm, 04/25/21 14:49:00 EDT, Height, [...] 0 Refills, Maintenance, 03/23/21 9:41:00 EDT, Solution, [facility]/pharmacy #[id number], Partial fill upon patient request if the prescription is for a schedule II opioid drug., 1 drops Eyes, Both 2 times a day, 159, cm... Start Date: 03/23/21 Status: Ordered [facility] ASPIRIN EC 81 MG TABLET [facility] ASPIRIN EC 81 MG TABLET, 1, tablet, By Mouth, Daily, # 30 tablet, 0 Refills, 158, cm, 04/14/21 11:28:00 EDT, Height, 98.6, kg, 04/11/21 15:59:00 EDT, Dry Weight Start Date: 04/22/21 Status: Ordered diclofenac 1% topical gel 1 application, Topically, 4 times a day, # 100 Gm, 5 Refills, Maintenance, 10/07/19 10:56:00 EDT, Gel, [facility]/pharmacy #[id number], 160, cm, 08/19/19 8:02:00 EST, Height Start Date: 10/07/19 Status: Ordered Eliquis 5 mg oral tablet 1 tablet, By Mouth, 2 times a day, # 180 tablet, 3 Refills, [facility], 158, cm, 06/09/21 10:14:00 EST, Height, 98.6, kg, 04/11/21 15:59:00 EDT, Dry Weight Start Date: 06/17/21 Status: Ordered empagliflozin 10 mg oral tablet 1 tablet = 10 mg, By Mouth, Daily in AM, # 90 tablet, 3 Refills, Maintenance, 06/09/21 12:06:00 EST, Tablet, [facility]/pharmacy #[id number], Partial fill upon patient request if the prescription is for a schedule II opioid drug., 158, cm, 06/09/21 10:14:00 EST, H... Start Date: 06/09/21 Stop Date: 06/04/22 Status: Ordered gabapentin 400 mg oral capsule 2, capsule, By Mouth, 3 times a day, # 180 capsule, Refills 0, Route to Pharmacy Electronically, [id number], 158, cm, 06/09/21 10:14:00 EST, Height, 98.6, kg, 04/11/21 15:59:00 EDT, Dry Weight Start Date: 06/23/21 Status: Ordered HYDROmorphone 2 mg oral tablet 1 tablet = 2 mg, By Mouth, Every 12 hours, PRN Pain , Severe, Dx: Severe lumbar degen disc disease,# 12 tablet, 0 Refills, Acute 07/17/21 8:24:00 EST, 06/17/21 8:24:00 EST, [facility]/pharmacy #[id number], Partial fill upon patient request if the prescription is... Start Date: 06/17/21 Stop Date: 07/17/21 Status: Ordered HYDROmorphone 2 mg oral tablet 1 tablet = 2 mg, By Mouth, Every 12 hours, PRN Pain , Severe, Dx: Severe lumbar degen disc disease,# 12 tablet, 0 Refills, Acute 07/29/21 16:56:00 EST, 07/17/21 8:24:00 EST, [facility]/pharmacy #[id number], Partial fill upon patient request if the prescription is... Start Date: 07/17/21 Stop Date: 07/29/21 Status: Ordered isosorbide mononitrate 30 mg oral tablet, extended release 1 tablet, By Mouth, Daily, for 90 days, # 90 tablet, 3 Refills, Physician Stop 04/20/22 16:32:00 EDT, 04/25/21 16:32:00 EDT, [facility]/pharmacy #[id number], 158, cm, 04/25/21 14:49:00 EDT, Height, 98.6, kg, 04/11/21 15:59:00 EDT, Dry Weight Start Date: 04/25/21 Stop Date: 04/20/22 Status: Ordered latanoprost 0.005% ophthalmic solution See Instructions, INSTILL 1 DROP IN BOTH EYES DAILY BEFORE DINNER, # 2.5 mL, 0 Refills, [facility], 18, INSTILL 1 DROP IN BOTH EYES DAILY BEFORE DINNER, 158, cm, 04/14/21 11:28:00 EDT, Height, 98.6, kg, 04/11/21 15:59:00 EDT, Dry Weight Start Date: 04/14/21 Status: Ordered Lipitor 40 mg oral tablet 1 tablet = 40 mg, By Mouth, Daily, # 30 tablet, 5 Refills, Maintenance, 04/28/21 6:50:00 EDT, Tablet, [facility]/pharmacy #[id number], Partial fill upon [...] 12/06/20 13:03:00 EDT, Route to Pharmacy Electronically, [facility]/pharmacy #[id number], Partial fill upon patient request if the prescription is for a schedule II opioid drug... Start Date: 12/06/20 Stop Date: 06/04/21 Status: Ordered Metoprolol Succinate ER 25 mg oral tablet, extended release 1 tablet, By Mouth, Daily, # 90 tablet, 2 Refills, [id number], 158, cm, 04/25/21 14:49:00 EDT,Height, 98.6, kg, 04/11/21 15:59:00 EDT, Dry Weight Start Date: 06/01/21 Status: Ordered nitroglycerin 0.4 mg sublingual tablet 1 tablet = 0.4 mg, Sublingual, Every 5 minutes, PRN as needed for chest pain, not to exceed 3 doses/15 min--if pain persists, seek medical attention, # 100 tablet, 0 Refills, Maintenance, 03/15/21 12:38:00 EDT, Tablet, [facility]/pharmacy #[id number], Partial fill... Start Date: 03/15/21 Status: [...] 05/14/21 12:51:00 EDT, Route to Pharmacy Electronically, [facility]/pharmacy #[id number], Partial fill upon patient request if the prescription is... Start Date: 05/14/21 Stop Date: 11/10/21 Status: Ordered torsemide 20 mg oral tablet 1 tablet = 20 mg, By Mouth, Daily, # 30 tablet, 5 Refills, Maintenance, 05/10/21 4:19:00 EDT, Tablet, [facility]/pharmacy #[id number], Partial fill upon patient request if the prescription is for a schedule II opioid drug., 158, cm, 04/25/21 14:49:00 EDT, Height,... Start Date: 05/10/21 Status: Ordered Vitamin D2 50,000 intl units (1.25 mg) oral capsule 1 capsule = 50,000 International_Units, By Mouth, Every , # 8 capsule, 0 Refills, Maintenance, 04/14/21 12:50:00 EDT, [facility]/pharmacy #[id number], Partial fill upon [...]
--- OUTSIDE RECORDS SUMMARY | 2024-02-08 01:06 | XMS_ITS | Continuity of Care Document ---
Author Organization [facility] Jose lt Address [address] [place] [address]- Care Team Providers Care Automobile Assembly Supervisor Name Role Phone Марина CORDERO, Ignacio New Primary Care Physician Encounter [facility] [place] Date(s): 04/27/20 - 05/27/20 [facility] Adult [address] [place] [address]- Allergies, Adverse Reactions, Alerts Substance Reaction Severity [...] 03/30/20 8:48:00 EDT, Route to Pharmacy Electronically, [facility]/pharmacy #[id number], 157, cm, 03/11/20 12:49:00 EDT, Height, 91, kg, 02/28/20 22:14:00 EDT, Dry Weight Start Date: 03/30/20 Stop Date: 03/25/21 Status: Ordered cephalexin monohydrate 500 mg oral capsule 1 capsule = 500 mg, By Mouth, 4 times a day, for 28 days, # 112 capsule, 1 Refills, Acute 06/18/20 11:43:00 EST, 04/23/20 11:43:00 EDT, Capsule, [facility]/pharmacy #[id number], 157, cm, 04/23/20 11:28:00 EDT, Height, 91, kg, 02/28/20 22:14:00 EDT, Dry Weight Start Date: 04/23/20 Stop Date: 06/18/20 Status: Ordered Cosopt ophthalmic solution 1 drops, Eyes, Both, 2 times a day, 0 Refills Start Date: 02/09/09 Status: Ordered diclofenac 1% topical gel 1 application, Topically, 4 times a day, # 100 Gm, 5 Refills, Maintenance, 10/07/19 10:56:00 EDT, Gel, [facility]/pharmacy #[id number], 160, cm, 08/19/19 8:02:00 EST, Height Start Date: 10/07/19 Status: Ordered Eliquis 5 mg oral tablet 1 tablet, By Mouth, 2 times a day, # 180 tablet, Refills 3 Tot. Refills 3, [facility]/pharmacy #[id number] Start Date: 06/17/19 Status: Ordered gabapentin 400 mg oral capsule 400 mg, 1, capsule, By Mouth, 3 times a day, # 270 capsule, Refills 2, Tot. Refills 2, Maintenance,03/30/20 8:48:00 EDT, [id number] 157, cm, 03/11/20 12:49:00 EDT, Height, 91, kg, 02/28/20 22:14:00 EDT, Dry... Start Date: 03/30/20 Stop Date: 6/5/21 Status: Ordered HYDROmorphone 2 mg oral tablet 1 tablet = 2 mg, By Mouth, Every 8 hours, PRN as needed for pain, # 20 tablet, 0 Refills, Maintenance, 05/07/20 13:21:00 EDT, Tablet, [id number], Partial fill upon patient request, 157, cm, [...]
--- OUTSIDE RECORDS SUMMARY | 2024-02-08 01:06 | XMS_ITS | Continuity of Care Document ---
Author Organization [facility] Address [address] [place] [address]- Care Team Providers Care Set Up Mechanic Name Role Phone Mick Tatum MD Primary Care Physician Encounter [facility] Date(s): 08/16/23 - 10/18/23 [facility] [address] [place] [phone]- Attending Physician: Bhumi Lindo MD Admitting Physician: Bhumi Lindo MD Referring Physician: Mick Tatum MD Allergies, [...] 5 07/23/96 Recorde juan pablo 1Result Comment: [phone] 2Location History: DR LOAIZA 3Location History: DR LOAIZA 4Location History: DR LOAIZA 5Location History: DR LOAIZA Medications atorvastatin 40 mg oral tablet 1 tablet, By Mouth, Daily at bedtime, # 90 tablet, 1 Refills, Maintenance, 05/04/23 6:30:00 EDT, [facility], 157, cm, 03/21/23 14:39:00 EDT, Height, 94.3, [...] Gm, 1 Refills, Maintenance, 06/29/23 16:21:00 EST, [facility]/pharmacy #[id number], Partial safia... Start Date: 06/29/23 Status: Ordered duloxetine 20 mg oral enteric coated capsule 1 capsule, By Mouth, Daily at bedtime, # 90 capsule, 3 Refills, Maintenance, 09/26/23 5:28:00 EST, [facility], 157, cm, 09/18/23 11:23:00 EST, Height, 94.3, kg, 01/19/22 4:25:00 EDT, Dry Weight Start Date: 09/26/23 Status: Ordered Eliquis 5 mg oral tablet 1 tablet, By Mouth, 2 times a day, # 180 tablet, 3 Refills, Maintenance, 06/15/23 1:44:00 EST, [facility], 157, cm, 05/31/23 6:38:00 EST, Height, 94.3, kg, 01/19/22 4:25:00 EDT, Dry Weight Start Date: 06/15/23 Status: Ordered isosorbide mononitrate 60 mg oral tablet, extended release 1 tablet, By Mouth, 2 times a day, # 180 tablet, 3 Refills, Maintenance, 06/13/23 8:27:00 EST, [facility], 157, cm, 05/31/23 6:38:00 EST, Height, 94.3, kg, 01/19/22 4:25:00 EDT, Dry Weight Start Date: 06/13/23 Status: Ordered Jardiance 10 mg oral tablet 1 tablet, By Mouth, Daily in AM, # 90 tablet, 3 Refills, Maintenance, 06/04/23 8:09:00 EST, [facility], 157, cm, 05/31/23 6:38:00 EST, Height, 94.3, kg, 01/19/22 4:25:00 EDT, Dry Weight Start Date: 06/04/23 Stop Date: 09/02/23 Status: Ordered Metoprolol Succinate ER 25 mg oral tablet, extended release 1 tablet, By Mouth, Daily, # 30 tablet, 0 Refills, Maintenance, 10/15/23 7:41:00 EDT, [facility], 157, cm, 09/18/23 11:23:00 EST, Height, 94.3, kg, 01/19/22 4:25:00 EDT, Dry Weight Start Date: 10/15/23 Status: Ordered nitroglycerin 0.4 mg sublingual tablet 1 tablet = 0.4 mg, Sublingual, Every 5 minutes, PRN as needed for chest pain, not to exceed 3 doses/15 min--if pain persists, seek medical attention, # 100 tablet, 0 Refills, Maintenance, 12/19/22 9:51:00 EDT, Tablet, [facility]/pharmacy #[id number], Partial fill... Start Date: 12/19/22 Status: Ordered oxyCODONE 5 mg oral tablet 5 mg, 1, tablet, By Mouth, 2 times a day, PRN, # 56 tablet, Refills 0, Tot. Refills 0, Acute 06/28/24 12:36:00 EST, as needed for pain, 06/28/23 12:35:00 EST, Route to Pharmacy Electronically, [facility]/pharmacy #[id number], Partial fill upon patient request if t... Start Date: 06/28/23 Stop Date: 06/28/24 Status: Ordered pantoprazole 40 mg oral delayed release tablet 0 Refills, Maintenance, 03/21/23 14:39:00 EDT Start Date: 03/21/23 Status: Ordered rOPINIRole 0.5 mg oral tablet 1 tablet, By Mouth, 4 times a day, # 360 tablet, 1 Refills, Maintenance, 09/17/23 7:52:00 EST, [facility], 157, cm, 08/14/23 10:05:00 EST, Height, 94.3, kg, 01/19/22 4:25:00 EDT, Dry Weight Start Date: 09/17/23 Status: Ordered spironolactone 25 mg oral tablet 25 mg, 1, tablet, By Mouth, 2 times a day, # 180 tablet, Refills 3, Tot. Refills 3, Maintenance, 08/27/23 12:45:00 EST, Route to Pharmacy Electronically, [facility]/pharmacy #[id number], Partial fill upon patientrequest if the prescription is for a schedule II op... Start Date: 08/27/23 Stop Date: 08/21/24 Status: Ordered torsemide 20 mg oral tablet 2 tablet, By Mouth, Daily, # 180 tablet, 3 Refills, Maintenance, 08/13/23 9:50:00 EST, [facility], 157, cm, 06/27/23 16:10:00 EST, Height, 94.3, [...] Team Personnel Name: Estrellita Putnam RN Position: [facility] RN Member Role: Primary Care Nurse Name: Marlen Kenny RN Position: [facility] RN Member Role: Primary Care Nurse Name: Toshia Muhammad RN Position: [facility] RN Martha Member Role: Primary Care Nurse Name: Suleman Jones RN Position: [facility] RN Member Role: Primary Care Nurse Name: Kathy Medina RN Position: [facility] RN Member Role: Primary Care Nurse Name: Marguerite Wang RN Position: [facility] RN Member Role: Primary Care Nurse Name: Mick Tatum MD Position: [facility] Physician - Primary Care Member Role: PCP Address: Address: [address] [place] [address]- [place] Name: Svitlana Clark RN Position: [facility] RN Member Role: Primary Care Nurse Name: Yoana Guevara RN Position: [facility] RN Member Role: Primary Care Nurse Name: Pierre Groves RN Position: [facility] RN Member Role: Primary Care Nurse Name: Carmen Murphy NP Position: [facility] PCO Associate Professional Member Role: Primary Care Nurse Address: Address: [address] [place] [id number]- [place] Name: Rylie Ordonez RN Position: [facility] RN Member Role: Primary Care Nurse Name: Marisa Negrete RN Position: [facility] SN RN Member Role: Primary Care Nurse Name: Aditi Brown RN Position: [facility] Onco RN Member Role: Primary Care Nurse Name: Chana Cazares RN Position: [facility] RN Member Role: Primary Care Nurse Name: Toshia Urbina RN Position: [facility] RN Member Role: Primary Care Nurse Name: Isabel Gray Position: [facility] MA Textile Worker Member Role: Weight Caller Name: Aniyah Sloan RN Position: [facility] SN RN Member Role: Primary Care Nurse Name: Rosemary Ramon RN Position: [facility] OB RN Member Role: Primary Care Nurse Name: Sneha Newton RN Position: [facility] Bulb Packer Member Role: Primary Care Nurse Care Team Related Persons Name: CLAUDIA URBINA Address: [address] [place] [address] Name: RALPH SÁNCHEZ Address: home [address] [place] [address] Name: DONY CARCAMO Address: home [address] [place] [address]
--- OUTSIDE RECORDS SUMMARY | 2024-02-08 01:06 | XMS_ITS | Continuity of Care Document ---
Author Organization [facility] Jose lt Address [address] [place] [address]- Care Team Providers Care Wastewater Treatment Operator Name Role Phone Ignacio Parish MD Primary Care Physician Encounter [facility] [place] Date(s): 07/01/19 - 07/08/19 [facility] Adult [address] [place] [address]- [facility] Attending Physician: Ignacio Parish MD Allergies, Adverse Reactions, Alerts Substance Reaction Severity Status amoxicillin Active Cats Active Contrast Dye Active Dust Active Seafood Active Tomatoes Active egg-containing compound Acti ve Other Food Allergy chicken, peppers, onions Active Immunizations Given and Recorded Vaccine Date Status [...] 0 Refills Start Date: 02/09/09 Status: Ordered Eliquis 5 mg oral tablet 1 tablet, By Mouth, 2 times a day, # 180 tablet, Refills 3 Tot. Refills 3, [facility]/pharmacy #[id number] Start Date: 06/17/19 Status: Ordered [...] 03/20/19 12:07:35 EDT, Route to Pharmacy Electronically, [id number], [facility]/pharmacy #[id number] Start Date: 03/20/19 Status: Ordered [...] 10:25:00 EST Start Date: 06/05/19 Status: Ordered Xalatan 0.005% solution 1 drops, [...] glucose(Confirmed) Active Joint pain(Confirmed) Active Nephrolithiasis(Confirmed) Active Obesity(Confirmed) Active Osteoarthritis(Confirmed) 2 Active (Confirmed) Active Restless leg syndrome(Confirmed) Active Rosacea(Confirmed) Active Sarcoidosis(Confirmed) Active Peripheral sensory neuropathy(Confirmed) Active Ulcerative colitis(Confirmed) Active Vertigo(Confirmed) Active 1RT LEG 2BILATERAL KNEES Vital Signs Most recent to oldest [Reference Range]: 1 Height 160.00 cm (07/01/19 10:58 AM) Weight 89.4 kg (07/01/19 10:58 AM) Oxygen Saturation [94-100 %] 95 % (07/01/19 10:58 AM) Pulse Rate [55-90 bpm] 90 bpm (07/01/19 10:58 AM) Body Mass Index [18.5-24.99] 34.92 *>HHI* (07/01/19 10:58 AM) Blood Pressure [90-138/55-84 mm Hg] 124/ 68mm Hg (07/01/19 10:58 AM) Temperature [96.8-100.4 DegF] 98.9 DegF (07/01/19 10:58 AM) Blood pressure sites Arm, right (07/01/19 10:58 AM) Temperature Route Oral (07/01/19 10:58 AM) Weight Obtained Via Standing scale (07/01/19 10:58 AM) Social History Social History Type Response Smoking Status Never (less than 100 in lifetime) entered on: 06/27/18 Sex
--- OUTSIDE RECORDS SUMMARY | 2024-02-08 01:06 | XMS_ITS | Continuity of Care Document ---
Author Organization [facility] Address [address] [place] [phone]- Care Team Providers Care Medical Fee Clerk Name Role Phone Mick Tatum MD Primary Care Physician Encounter [facility] [place] Date(s): 10/25/20 - 01/05/21 [facility] [address] [place] [id number] Attending Physician: Elizabeth Bay NP [...] 09/20/20 14:38:00 EST, Route to Pharmacy Electronically, [facility]/pharmacy [...] 3 Refills, Maintenance, 07/12/20 14:12:00 EST, [facility], 157, cm, 05/07/20 11:34:00 EDT, Height, 91, [...] 0 Refills, Maintenance, 08/30/20 10:02:00 EST, Tablet, [facility]/pharmacy #[id number], Partial fill upon patient request, 157, cm, 08/30/20 7:27:00 EST, Height, 91, kg, 02/28/20 22:... Start Date: 08/30/20 Status: Ordered metoprolol 25 mg oral tablet, extended release 25 mg, 1, tablet, By Mouth, Daily, # 30 tablet, Refills 5, Tot. Refills 5, Maintenance, 12/06/20 13:03:00 EDT, Route to Pharmacy Electronically, [facility]/pharmacy [...] 0 Refills, Maintenance, 11/25/20 12:14:00 EDT, Tablet, [facility]/pharmacy #[id number], Partial fill upon [...] tablet, 0 Refills,Soft Stop, 10/21/20 16:26:00 EDT, [facility]/pharmacy #[id number], Partial fill upon patient [...]
--- OUTSIDE RECORDS SUMMARY | 2024-02-08 01:07 | XMS_ITS | Continuity of Care Document ---
Author Organization [facility] Jose lt Address [address] [place] [address]- Care Team Providers Care Shadow Graph Weight Operator Name Role Phone Марина CORDERO, Ignacio New Primary Care Physician Encounter [facility] [place] Date(s): 10/21/19 - 10/31/19 [facility] Adult [address] [place] [address]- [facility] Attending Physician: Julia Haile Admitting Physician: AdmtrJulia Referring Physician: AdmtrJulia Allergies, Adverse Reactions, Alerts Substance Reaction Severity Status amoxicillin Active Cats Active Contrast Dye Active Other Food Allergy chicken, peppers, onions Active Other Environmental Allergy 1 Active Dust Active Seafood Active egg-containing compound Acti ve Tomatoes Active 1trees, roses Immunizations Given and Recorded [...] Refills 3 Tot. Refills 3, [facility]/pharmacy #[id number] Start Date: 06/17/19 Status: Ordered ferrous sulfate 325 mg oral enteric coated tablet 325 mg, 1, tablet, By Mouth, Daily, # 30 tablet, Refills 0, Maintenance, 01/13/19 10:24:03 EDT Start Date: 01/13/19 Status: Ordered Flonase 50 mcg/inh nasal spray 2 sprays, Nares, Both, Daily, # 16 Gm, 5 Refills, Maintenance, 10/29/19 12:45:00 EDT, [facility]/pharmacy #[id number], 2 sprays Nares, Both Daily, 160, cm, 08/19/19 8:02:00 EST, Height Start Date: 10/29/19 Status: Ordered gabapentin 300 mg oral capsule 300 mg, 1, capsule, By Mouth, 3 times a day, # 90 capsule, Refills 2, Tot. Refills 2, Maintenance, 03/20/19 12:07:35 EDT, Route to Pharmacy Electronically, [id number], [facility]/pharmacy #[id number] Start Date: 03/20/19 Status: Ordered [...] mg, By Mouth, Daily, # 30 capsule, 2 Refills, Maintenance, 10/29/19 12:43:00 EDT, [facility]/pharmacy #[id number], 160, cm, 08/19/19 8:02:00 EST, Height Start Date: 10/29/19 Status: Ordered predniSONE 20 mg oral tablet 2 tablet = 40 mg, By Mouth, Daily, # 14 tablet, 0 Refills, Maintenance, 10/21/19 11:44:00 EDT, [facility]/pharmacy #[id number], 160, [...]
--- OUTSIDE RECORDS SUMMARY | 2024-02-08 01:07 | XMS_ITS | Continuity of Care Document ---
Author Organization [facility] Address [address] [place] [address]- Care Team Providers Care Spoilage Worker Name Role Phone Mick Tatum MD Primary Care Physician [phone] Encounter [facility] [place] Date(s): 07/27/20 - 08/03/20 [facility] Adult [address] [place] [address]- Attending Physician: Mick Tatum MD Allergies, Adverse [...] 03/30/20 8:48:00 EDT, Route to Pharmacy Electronically, [facility]/pharmacy #[id number], 157, cm, 03/11/20 12:49:00 [...] 5 Refills, Maintenance, 10/07/19 10:56:00 EDT, Gel, [facility]/pharmacy #[id number], 160, cm, 08/19/19 8:02:00 EST, Height Start Date: 10/07/19 Status: Ordered Eliquis 5 mg oral tablet 1 tablet, By Mouth, 2 times a day, # 180 tablet, 3 Refills, Maintenance, 07/12/20 14:12:00 EST, [facility], 157, cm, 05/07/20 11:34:00 EDT, Height, 91, kg, 02/28/20 22:14:00 EDT, Dry Weight Start Date: 07/12/20 Status: Ordered gabapentin 400 mg oral capsule 400 mg, 1, capsule, By Mouth, 3 times a day, # 270 capsule, Refills 2, Tot. Refills 2, Maintenance,03/30/20 8:48:00 EDT, [id number] 157, cm, 03/11/20 12:49:00 EDT, Height, 91, kg, 02/28/20 22:14:00 EDT, Dry... Start Date: 03/30/20 Stop Date: 12/25/20 Status: Ordered HYDROmorphone 2 mg oral tablet 1 tablet = 2 mg, By Mouth, Every 8 hours, PRN as needed for pain, # 20 tablet, 0 Refills, Maintenance, 07/14/20 8:36:00 EST, Tablet, [facility]/pharmacy #[id number], Partial fill [...] oldest [Reference Range]: 1 Height 157 cm (07/27/20 11:14 AM) Social History Social History Type Response Smoking Status Never (less than 100 in lifetime) entered on: 06/27/18 Sex
--- OUTSIDE RECORDS SUMMARY | 2024-02-08 01:07 | XMS_ITS | Continuity of Care Document ---
Author Organization [facility] Jose Address [address] [place] [address]- Care Team Providers Care Team Supervisor Name Role Phone Mick Tatum MD Primary Care Physician Encounter [facility] [place] Date(s): 09/27/20 - 10/04/20 [facility] Adult [address] [place] [address]- Attending Physician: Mick Tatum MD Allergies, Adverse Reactions, Alerts Substance Reaction Severity Status amoxicillin 1 Active egg-containing compound 2 Re solved Other Food Allergy 3 chicken, peppers, onions Resolved Other Environmental Allergy 4 Active Cats Active Contrast Dye Active Dust [...] 03/30/20 8:48:00 EDT, Route to Pharmacy Electronically, [facility]/pharmacy #[id number], 157, cm, 03/11/20 12:49:00 EDT, Height, 91, kg, 02/28/20 22:14:00 EDT, Dry Weight Start Date: 03/30/20 Stop Date: 03/25/21 Status: Ordered aspirin 81 mg oral delayed release tablet 81 mg, 1, tablet, By Mouth, Daily, # 30 tablet, Refills 0, Tot. Refills 0, Maintenance, 09/20/20 14:38:00 EST, Route to Pharmacy Electronically, [facility]/pharmacy #[id number], Partial fill upon patient [...] Acute 02/27/21 10:03:00 EDT, 11/25/20 10:36:00 EDT, [facility]/pharmacy #[id number], Partial fill upon patient [...] 5 Refills, Maintenance, 10/07/19 10:56:00 EDT, Gel, [facility]/pharmacy #[id number], 160, cm, 08/19/19 8:02:00 EST, Height Start Date: 10/07/19 Status: Ordered Eliquis 5 mg oral tablet 1 tablet, By Mouth, 2 times a day, # 180 tablet, 3 Refills, Maintenance, 07/12/20 14:12:00 EST, [id number], 157, cm, 05/07/20 11:34:00 EDT, Height, 91, [...] 0 Refills, Maintenance, 08/30/20 10:02:00 EST, Tablet, [facility]/pharmacy #[id number], Partial fill upon patient request, [...]
--- OUTSIDE RECORDS SUMMARY | 2024-02-08 01:07 | XMS_ITS | Continuity of Care Document ---
Author Organization [facility] Gopi Jose lt Address [address] [place] [address]- Care Team Providers Care Audio Visual Specialist Name Role Phone Ignacio Parish MD Primary Care Physician Encounter [facility] [place] Date(s): 03/11/20 - 03/18/20 [facility] Adult [address] [place] [address]- 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 Start Date: 03/10/20 Status: Ordered Eliquis 5 mg oral tablet 1 tablet, By Mouth, 2 times a day, # 180 tablet, Refills 3 Tot. Refills 3, [facility]/pharmacy #[id number] Start Date: 06/17/19 Status: Ordered gabapentin 400 mg oral capsule 400 mg, 1, capsule, By Mouth, 3 times a day, # 21 capsule, Refills 0, Tot. Refills 0, Maintenance, 03/10/20 10:48:00 EDT, Route to Pharmacy Electronically, [facility]/pharmacy #[id number], 157, cm, 03/10/20 8:47:00 EDT, Height, 91, kg, 02/28/20 22:14:00 EDT, Dry W... Start Date: 03/10/20 Stop Date: 03/17/20 Status: Ordered HYDROmorphone 2 mg oral tablet 1 tablet = 2 mg, By Mouth, Every 6 hours, PRN as needed for pain, # 28 tablet, 0 Refills, Maintenance, 03/11/20 15:06:00 EDT, Tablet, [facility]/pharmacy #[id number], Partial fill upon patient request, 157, cm, 03/11/20 12:49:00 EDT, Height, 91, kg, 02/28/20 22:14... Start Date: 03/11/20 Status: Ordered Lialda 1.2 g oral delayed release tablet 2 tablet = 2.4 Gm, By Mouth, Daily, 0 Refills, Maintenance, 06/27/18 15:39:26 EST Start Date: 06/27/18 Status: Ordered Norvasc 5 mg oral tablet 5 mg, 1, tablet, By Mouth, Daily, # 30 tablet, Refills 0, Tot. Refills 0, Maintenance, 03/10/20 10:49:00 EDT, [id number], cm, 03/10/20 8:47:00 EDT, Height, 91, kg, 02/28/20 22:14:00 EDT, Dry Weight Start Date: 03/10/20 Status: Ordered Requip 0.5 mg oral tablet 1 tablet = 0.5 mg, By Mouth, 3 times a day, 0 Refills, Maintenance Start Date: 03/17/10 Status: Ordered tiZANidine 4 mg oral tablet 4 mg, 1, tablet, By Mouth, 3 times a day, PRN, # 21 tablet, Refills 0, Tot. Refills 0, Maintenance,Spasm, 03/10/20 10:51:00 EDT, [id number], cm, 03/10/20 8:47:00 EDT, [...] oldest [Reference Range]: 1 Height 157 cm (03/11/20 12:49 PM) Social History Social History Type Response Smoking Status Never (less than 100 in lifetime) entered on: 06/27/18 Sex
--- OUTSIDE RECORDS SUMMARY | 2024-02-08 01:07 | XMS_ITS | Continuity of Care Document ---
Author Organization [facility] Gopi Jose lt Address [address] [place] [address]- Care Team Providers Care Rail Car Repairman Name Role Phone Mick Tatum MD Primary Care Physician [place] [facility] [place](s): 12/28/22 - 01/04/23 [facility] Adult [address] [place] [address]- Attending Physician: Mick Tatum MD Allergies, Adverse [...] Given Parent Or Guardian Refuses 1Result Comment: [id number] 2Location History: DR LOAIZA 3Location History: DR LOAIZA 4Location History: DR LOAIZA 5Location History: DR LOAIZA Medications atorvastatin 40 mg oral tablet 1 tablet, By Mouth, Daily at bedtime, # 90 tablet, 3 Refills, Maintenance, 05/13/22 7:24:00 EDT, [id number], 157, cm, 05/12/22 13:47:00 EDT, Height, 94.3, kg, 01/19/22 4:25:00 EDT, Dry Weight Start Date: 05/13/22 Status: Ordered budesonide 3 mg oral delayed release capsule 1 capsule = 3 mg, By Mouth, Daily in AM, # 90 capsule, 2 Refills, Acute 01/18/23 6:58:00 EDT, 01/18/22 6:58:00 EDT, CR Capsule, [facility]/pharmacy #[id number], Partial fill upon patient request if the prescription is for a schedule II opioid drug., 159, cm, 12/21... Start Date: 01/18/22 Stop Date: 01/18/23 Status: Ordered Eliquis 5 mg oral tablet 1 tablet, By Mouth, 2 times a day, # 180 tablet, 3 Refills, Maintenance, 05/27/22 16:57:00 EDT, [id number], 157, cm, 05/12/22 13:47:00 EDT, Height, 94.3, kg, 01/19/22 4:25:00 EDT, Dry Weight Start Date: 05/27/22 Status: Ordered isosorbide mononitrate 60 mg oral tablet, extended release 60 mg, 1, tablet, By Mouth, 2 times a day, # 180 tablet, Refills 3, Tot. Refills 3, Maintenance, 07/10/22 16:07:00 EST, Route to Pharmacy Electronically, [facility]/pharmacy #[id number], Partial fill upon patientrequest if the prescription is for a schedule II op... Start Date: 07/10/22 Status: Ordered Metoprolol Succinate ER 25 mg oral tablet, extended release 1 tablet, By Mouth, Daily, # 90 tablet, 3 Refills, 09/30/22 20:06:00 EST, [facility]/pharmacy #[id number], 157, cm, 09/15/22 11:19:00 EST, Height, 94.3, kg, 01/19/22 4:25:00 EDT, Dry Weight Start Date: 09/30/22 Status: Ordered nitroglycerin 0.4 mg sublingual tablet 1 tablet = 0.4 mg, Sublingual, Every 5 minutes, PRN as needed for chest pain, not to exceed 3 doses/15 min--if pain persists, seek medical attention, # 100 tablet, 0 Refills, Maintenance, 12/19/22 9:51:00 EDT, Tablet, [facility]/pharmacy #[id number], Partial fill... Start Date: 12/19/22 Status: Ordered rOPINIRole 0.5 mg oral tablet 1 tablet, By Mouth, 4 times a day, # 360 tablet, 1 Refills, Maintenance, 07/25/22 9:33:00 EST, [facility], 157, cm, 07/10/22 15:50:00 EST, Height, 94.3, kg, 01/19/22 4:25:00 EDT, Dry Weight Start Date: 07/25/22 Status: Ordered spironolactone 25 mg oral tablet 25 mg, 1, tablet, By Mouth, Daily, # 90 tablet, Refills 3, Tot. Refills 3, Maintenance, 10/09/22 15:42:00 EDT, Route to Pharmacy Electronically, [facility]/pharmacy #[id number], Partial fill upon patient request if the prescription is for a schedule II opioid drug... Start Date: 10/09/22 Stop Date: 10/04/23 Status: Ordered torsemide 20 mg oral tablet 2 tablet = 40 mg, By Mouth, Daily, for 90 days, # 180 tablet, 3 Refills, Physician Stop 07/26/23 8:14:00 EST, 07/31/22 8:14:00 EST, [facility]/pharmacy #[id number], 157, cm, 07/27/22 15:56:00 EST, Height, 94.3, kg, 01/19/22 4:25:00 EDT, Dry Weight Start Date: 07/31/22 Stop Date: 07/26/23 Status: Ordered torsemide 20 mg oral tablet 2 tablet = 40 mg, By Mouth, Daily, for 90 days, # 180 tablet, 3 Refills, Physician Stop 05/15/23 16:05:00 EDT, 05/20/22 16:05:00 EDT, [facility]/pharmacy #[id number], 157, cm, 05/12/22 13:47:00 EDT, Height, [...] oldest [Reference Range]: 1 Height 157.0 cm (12/28/22 2:14 PM) Weight 80 kg (12/28/22 2:14 PM) Body Mass Index [18.5-24.99 kg/m2] 32.46 kg/m2 *>HHI* (12/28/22 2:14 PM) Weight Obtained Via Standing scale (12/28/22 2:14 PM) Social History Social History Type Response Smoking Status Never (less than 100 in lifetime) entered on: 06/27/18 Sex Patient Care team information Care Team Personnel Name: Lisa Carlson RN Position: [facility] RN Member Role: Primary Care Nurse Name: Estrellita Putnam RN Position: [facility] RN Member Role: Primary Care Nurse Name: Marlen Kenny RN Position: [facility] RN Member Role: Primary Care Nurse Name: Toshia Muhammad RN Position: [facility] RN Martha Member Role: Primary Care Nurse Name: Suleman Jones RN Position: [facility] RN Member Role: Primary Care Nurse Name: Kathy Medina RN Position: [facility] RN Member Role: Primary Care Nurse Name: Mick Tatum MD Position: [facility] Physician - Primary Care Member Role: PCP Address: Address: [address] [place] [id number] Name: Svitlana Clark RN Position: [facility] RN Member Role: Primary Care Nurse Name: Yoana Guevara RN Position: [facility] RN Member Role: Primary Care Nurse Name: Pierre Groves RN Position: [facility] RN Member Role: Primary Care Nurse Name: Carmen Murphy RN Position: [facility] RN Member Role: Primary Care Nurse Name: Rylie Ordonez RN Position: [facility] AMB Nurse Member Role: Primary Care Nurse Name: Aditi Brown RN Position: [facility] RN Member Role: Primary Care Nurse Name: Chana Cazares RN Position: [facility] RN Member Role: Primary Care Nurse Name: Toshia Urbina RN Position: [facility] RN Member Role: Primary Care Nurse Name: Aniyah Sloan RN Position: [facility] SN RN Member Role: Primary Care Nurse Name: Rosemary Ramon RN Position: [facility] OB RN Member Role: Primary Care Nurse Name: Sneha Newton RN Position: [facility] Hospital Agricultural Research Director Member Role: Primary Care Nurse Care Team Related Persons Name: CLAUDIA URBINA Address: home [address] [place], [place] Name: RALPH SÁNCHEZ Address: [address] [place], [place] Name: DONY CARCAMO Address: home [address] [place], [place]
--- OUTSIDE RECORDS SUMMARY | 2024-02-08 01:07 | XMS_ITS | Continuity of Care Document ---
Author Organization [facility] Gopi Jose lt Address [address] [place] [address]- Care Team Providers Care Cota Name Role Phone Rc CORDERO, Mick Clay Primary Care Physician Encounter [facility] [place] [place] Date(s): 12/12/21 - 01/11/22 [facility] Adult [address] [place] [address]- Allergies, Adverse Reactions, Alerts Substance Reaction Severity [...] Refills, [id number], 158, cm, 06/09/21 10:14:00 EST, Height, 98.6, [...] 07/31/21 10:21:00 EST, Route to Pharmacy Electronically, [facility]/pharmacy #[id number], 159, cm, 07/25/21 11:20:00 EST, [...] BEFORE DINNER, # 2.5 mL, 0 Refills, [id number], 18, INSTILL 1 DROP IN BOTH EYES DAILY BEFORE DINNER, 158, cm, 04/14/21 11:28:00 EDT, Height, 98.6, kg, 04/11/21 15:59:00 EDT, Dry Weight Start Date: 04/14/21 Status: Ordered Lipitor 40 mg oral tablet 1 tablet = 40 mg, By Mouth, Daily, # 30 tablet, 5 Refills, Maintenance, 04/28/21 6:50:00 EDT, Tablet, [facility]/pharmacy [...] a day, # 360 tablet, 1 Refills, [id number], 159, cm, 11/14/21 9:20:00 EDT, Height, 98, kg, 07/06/21 19:57:00 EST, Dry Weight Start Date: 11/22/21 Status: Ordered spironolactone 25 mg oral tablet 25 mg, 1, tablet, By Mouth, 2 times a day, # 180 tablet, Refills 3, Tot. Refills 3, Maintenance, 11/14/21 9:55:00 EDT, Route to Pharmacy Electronically, [facility]/pharmacy #[id number], Partial fill upon patient request if the prescription is for a schedule II opi... Start Date: 11/14/21 Stop Date: 11/09/22 Status: Ordered torsemide 20 mg oral tablet 2 tablet = 40 mg, By Mouth, Daily, # 90 tablet, 1 Refills, 12/13/21 10:45:00 EDT, [facility]/pharmacy #[id number], 159, cm, 12/13/21 10:22:00 EDT, Height, [...]
--- OUTSIDE RECORDS SUMMARY | 2024-02-08 01:07 | XMS_ITS | Continuity of Care Document ---
Author Organization [facility] Gopi Jose lt Address [address] [place] [address]- Care Team Providers Care Senior Sales Engineer Name Role Phone Rc CORDERO, Mick Clay Primary Care Physician Encounter [facility] [place] Date(s): 08/11/23 - 09/10/23 [facility] Adult [address] [place] [address]- Allergies, Adverse Reactions, Alerts Substance Reaction Severity [...] toxoids (Td) 5 07/23/96 Augiemin [place] Comment: [id number] 2Location History: DR LOAIZA 3Location History: DR LOAIZA 4Location History: DR LOAIZA 5Location History: DR LOAIZA Medications atorvastatin 40 mg oral tablet 1 tablet, By Mouth, Daily at bedtime, # 90 tablet, 1 Refills, Maintenance, 05/04/23 6:30:00 EDT, [facility], 157, cm, 03/21/23 14:39:00 EDT, Height, 94.3, [...] Gm, 1 Refills, Maintenance, 06/29/23 16:21:00 EST, [facility]/pharmacy #[id number], Partial safia... Start Date: 06/29/23 Status: Ordered duloxetine 20 mg oral enteric coated capsule 1 capsule = 20 mg, By Mouth, Daily at bedtime, # 30 capsule, 2 Refills, Maintenance, 06/28/23 12:37:00 EST, [facility]/pharmacy #[id number], Partial fill upon patient request if the prescription is for a scheduleII opioid drug., 157, cm, 06/27/23 16:10:00 EST, He... Start Date: 06/28/23 Status: Ordered Eliquis 5 mg oral tablet 1 tablet, By Mouth, 2 times a day, # 180 tablet, 3 Refills, Maintenance, 06/15/23 1:44:00 EST, [facility], 157, cm, 05/31/23 6:38:00 EST, Height, 94.3, kg, 01/19/22 4:25:00 EDT, Dry Weight Start Date: 06/15/23 Status: Ordered isosorbide mononitrate 60 mg oral tablet, extended release 1 tablet, By Mouth, 2 times a day, # 180 tablet, 3 Refills, Maintenance, 06/13/23 8:27:00 EST, [facility], 157, cm, 05/31/23 6:38:00 EST, Height, 94.3, kg, 01/19/22 4:25:00 EDT, Dry Weight Start Date: 06/13/23 Status: Ordered Jardiance 10 mg oral tablet 1 tablet, By Mouth, Daily in AM, # 90 tablet, 3 Refills, Maintenance, 06/04/23 8:09:00 EST, [facility], 157, cm, 05/31/23 6:38:00 EST, Height, 94.3, kg, 01/19/22 4:25:00 EDT, Dry Weight Start Date: 06/04/23 Stop Date: 09/02/23 Status: Ordered Metoprolol Succinate ER 50 mg oral tablet, extended release 1 tablet = 50 mg, By Mouth, Daily, # 90 tablet, 3 Refills, Maintenance, 08/14/23 10:15:00 EST, ER Tablet, [facility]/pharmacy #[id number], Partial fill upon patient request if the prescription is for a schedule II opioid drug., 157, cm, 08/14/23 10:05:00 EST, Heig... Start Date: 08/14/23 Stop Date: 08/08/24 Status: Ordered nitroglycerin 0.4 mg sublingual tablet 1 tablet = 0.4 mg, Sublingual, Every 5 minutes, PRN as needed for chest pain, not to exceed 3 doses/15 min--if pain persists, seek medical attention, # 100 tablet, 0 Refills, Maintenance, 12/19/22 9:51:00 EDT, Tablet, [facility]/pharmacy #[id number], Partial fill... Start Date: 12/19/22 Status: Ordered oxyCODONE 5 mg oral tablet 5 mg, 1, tablet, By Mouth, 2 times a day, PRN, # 56 tablet, Refills 0, Tot. Refills 0, Acute 06/28/24 12:36:00 EST, as needed for pain, 06/28/23 12:35:00 EST, Route to Pharmacy Electronically, [facility]/pharmacy #[id number], Partial fill upon patient request if t... Start Date: 06/28/23 Stop Date: 06/28/24 Status: Ordered pantoprazole 40 mg oral delayed release tablet 0 Refills, Maintenance, 03/21/23 14:39:00 EDT Start Date: 03/21/23 Status: Ordered rOPINIRole 0.5 mg oral tablet 1 tablet, By Mouth, 4 times a day, # 360 tablet, 1 Refills, Maintenance, 01/22/23 9:08:00 EDT, [facility], 157, cm, 12/28/22 14:14:00 EDT, Height, 94.3, kg, 01/19/22 4:25:00 EDT, Dry Weight Start Date: 01/22/23 Status: Ordered spironolactone 25 mg oral tablet 25 mg, 1, tablet, By Mouth, 2 times a day, # 180 tablet, Refills 3, Tot. Refills 3, Maintenance, 08/27/23 12:45:00 EST, Route to Pharmacy Electronically, [facility]/pharmacy #[id number], Partial fill upon patientrequest if the prescription is for a schedule II op... Start Date: 08/27/23 Stop Date: 08/21/24 Status: Ordered torsemide 20 mg oral tablet 2 tablet, By Mouth, Daily, # 180 tablet, 3 Refills, Maintenance, 08/13/23 9:50:00 EST, [facility], 157, cm, 06/27/23 16:10:00 EST, Height, 94.3, [...] Team Personnel Name: Estrellita Putnam RN Position: [facility] RN Member Role: Primary Care Nurse Name: Marlen Kenny RN Position: [facility] RN Member Role: Primary Care Nurse Name: Toshia Muhammad RN Position: [facility] RN Supjulieth Member Role: Primary Care Nurse Name: Suleman Jones RN Position: [facility] RN Member Role: Primary Care Nurse Name: Kathy Medina RN Position: [facility] ED RN W/OE and Tasks Member Role: Primary Care Nurse Name: Marguerite Wang RN Position: [facility] RN Member Role: Primary Care Nurse Name: Mick Tatum MD Position: [facility] Physician - Primary Care Member Role: PCP Address: Address: [address] [place] [id number]- [place] Name: Svitlana Clark RN Position: [facility] RN Member Role: Primary Care Nurse Name: Yoana Guevara RN Position: [facility] RN Member Role: Primary Care Nurse Name: Pierre Groves RN Position: [facility] RN Member Role: Primary Care Nurse Name: Carmen Murphy NP Position: [facility] PCO Associate Professional Member Role: Primary Care Nurse Address: Address: [address] [place] [phone]- [place] Name: Rylie Ordonez RN Position: [facility] RN Member Role: Primary Care Nurse Name: Marisa Negrete RN Position: [facility] SN RN Member Role: Primary Care Nurse Name: Aditi Brown RN Position: [facility] Onco RN Member Role: Primary Care Nurse Name: Chana Cazares RN Position: [facility] RN Member Role: Primary Care Nurse Name: Toshia Urbina RN Position: [facility] RN Member Role: Primary Care Nurse Name: Isabel Gray Position: [facility] [place] Dehairing Machine Tender Member Role: Single End Sewer Name: Aniyah Sloan RN Position: [facility] SN RN Member Role: Primary Care Nurse Name: Rosemary Ramon RN Position: [facility] OB RN Member Role: Primary Care Nurse Name: Sneha Newton RN Position: [facility] Filter Pulp Washer Member Role: Primary Care Nurse Care Team Related Persons Name: CLAUDIA URBINA Address: [address] [place] [address] Name: PRINCESS RALPH Address: [address] [place] [address] Name: DONY CARCAMO Address: [address] [place] [address]
--- OUTSIDE RECORDS SUMMARY | 2024-02-08 01:07 | XMS_ITS | Continuity of Care Document ---
Author Organization [facility] Jose lt Address [address] [place] [address]- Care Team Providers Care Downstream Biomanufacturing Technician Name Role Phone Rc CORDERO, Mick Clay Primary Care Physician [place] [facility] [place]23 - 11/29/23 [facility] [address] [place] [address]- Allergies, Adverse Reactions, Alerts Substance Reaction Severity [...] Give n influenza virus vaccine, inactivated 05/15/18 Piop rded influenza virus vaccine, inactivated 05/14/18 Pipo rded SARS-CoV-2 (COVID-19) mRNA-1273 vaccine 07/02/21 R ecorded SARS-CoV-2 (COVID-19) mRNA BNT-162b2 vac 09/23/20 Given SARS-CoV-2 (COVID-19) mRNA BNT-162b2 vac 09/02/20 Given pneumococcal 23-valent vaccine 2 07/23/11 Recorded pneumococcal 13-valent vaccine 3 07/23/10 Recorded tetanus/diphtheria/pertussis, acel(Tdap) 4 07/23/08 Recorded tetanus-diphtheria toxoids (Td) 5 07/23/96 Augiemin Bingham Comment: [id number] 2Location History: DR LOAIZA 3Location History: DR LOAIZA 4Location History: DR LOAIZA 5Location History: DR LOAIZA Medications atorvastatin 40 mg oral tablet 1 tablet, By Mouth, Daily at bedtime, # 90 tablet, 1 Refills, Maintenance, 10/30/23 9:30:00 EDT, [facility], 157, cm, 10/26/23 13:58:00 EDT, Height, 94.3, [...] Gm, 1 Refills, Maintenance, 06/29/23 16:21:00 EST, [facility]/pharmacy #[id number], Partial safia... Start Date: 06/29/23 Status: Ordered duloxetine 20 mg oral enteric coated capsule 1 capsule, By Mouth, Daily at bedtime, # 90 capsule, 3 Refills, Maintenance, 09/26/23 5:28:00 EST, [facility] 11106, 157, cm, 09/18/23 11:23:00 EST, Height, 94.3, kg, 01/19/22 4:25:00 EDT, Dry Weight Start Date: 09/26/23 Status: Ordered Eliquis 5 mg oral tablet 1 tablet, By Mouth, 2 times a day, # 180 tablet, 3 Refills, Maintenance, 06/15/23 1:44:00 EST, [facility] 76[facility], 157, cm, 05/31/23 6:38:00 EST, Height, 94.3, kg, 01/19/22 4:25:00 EDT, Dry Weight Start Date: 06/15/23 Status: Ordered isosorbide mononitrate 60 mg oral tablet, extended release 1 tablet, By Mouth, 2 times a day, # 180 tablet, 3 Refills, Maintenance, 06/13/23 8:27:00 EST, [facility] 64[facility], 157, cm, 05/31/23 6:38:00 EST, Height, 94.3, kg, 01/19/22 4:25:00 EDT, Dry Weight Start Date: 06/13/23 Status: Ordered Jardiance 10 mg oral tablet 1 tablet, By Mouth, Daily in AM, # 90 tablet, 3 Refills, Maintenance, 06/04/23 8:09:00 EST, [facility] 704[facility], 157, cm, 05/31/23 6:38:00 EST, Height, 94.3, kg, 01/19/22 4:25:00 EDT, Dry Weight Start Date: 06/04/23 Stop Date: 09/02/23 Status: Ordered Metoprolol Succinate ER 25 mg oral tablet, extended release 1 tablet, By Mouth, Daily, # 30 tablet, 0 Refills, Maintenance, 11/26/23 7:55:00 EDT, [facility] 07748, 157, cm, 11/13/23 16:25:00 EDT, Height, 94.3, [...] 06/28/23 12:35:00 EST, Route to Pharmacy Electronically, [facility]/pharmacy #[id number], Partial fill upon patient request if t... Start Date: 06/28/23 Stop Date: 06/28/24 Status: Ordered pantoprazole 40 mg oral delayed release tablet 0 Refills, Maintenance, 03/21/23 14:39:00 EDT Start Date: 03/21/23 Status: Ordered rOPINIRole 0.5 mg oral tablet 1 tablet, By Mouth, 4 times a day, # 360 tablet, 1 Refills, Maintenance, 09/17/23 7:52:00 EST, [facility] 349[facility], 157, cm, 08/14/23 10:05:00 EST, Height, 94.3, kg, 01/19/22 4:25:00 EDT, Dry Weight Start Date: 09/17/23 Status: Ordered spironolactone 25 mg oral tablet 25 mg, 1, tablet, By Mouth, 2 times a day, # 180 tablet, Refills 3, Tot. Refills 3, Maintenance, 08/27/23 12:45:00 EST, Route to Pharmacy Electronically, [facility]/pharmacy #[id number], Partial fill upon patientrequest if the prescription is for a schedule II op... Start Date: 08/27/23 Stop Date: 08/21/24 Status: Ordered torsemide 20 mg oral tablet 2 tablet, By Mouth, Daily, # 180 tablet, 3 Refills, Maintenance, 08/13/23 9:50:00 EST, [facility] 92043, 157, cm, 06/27/23 16:10:00 EST, Height, 94.3, [...] Team Personnel Name: Estrellita Putnam RN Position: [facility] [...] Primary Care Member Role: PCP Address: Address: [address] [place] [address]- [place] Name: Svitlana Clark RN Position: [facility] RN Member Role: Primary Care Nurse Name: Yoana Guevara RN Position: [facility] RN Member Role: Primary Care Nurse Name: Pierre Groves RN Position: [facility] RN Member Role: Primary Care Nurse Name: Carmen Murphy NP Position: [facility] PCO Associate Professional Member Role: Primary Care Nurse Address: Address: [address] [place] [address]- [place] Name: Rylie Ordonez RN Position: [facility] RN Member Role: Primary Care Nurse Name: Marisa Negrete RN Position: [facility] AMB Nurse Member Role: Primary Care Nurse Name: Aditi Brown RN Position: [facility] Onco RN Member Role: Primary Care Nurse Name: Chana Cazares RN Position: [facility] RN Member Role: Primary Care Nurse Name: Toshia Urbina RN Position: [facility] RN Member Role: Primary Care Nurse Name: Isabel Gray Position: [facility] [place] Arabic Translator Member Role: Analysis Manager Name: Aniyah Sloan RN Position: [facility] SN RN Member Role: Primary Care Nurse Name: Rosemary Ramon RN Position: [facility] OB RN Member Role: Primary Care Nurse Name: Sneha Newton RN Position: [facility] Advance Agent Member Role: Primary Care Nurse Care Team Related Persons Name: CLAUDIA URBINA Address: home [address] [place] [address] Name: RALPH SÁNCHEZ Address: [address] [place] [address] Name: DONY CARCAMO Address: home [address] [place] [address]
--- OUTSIDE RECORDS SUMMARY | 2024-02-08 01:07 | XMS_ITS | Continuity of Care Document ---
Author Organization [facility] Jose [facility] Address [address] [place] [address]- Care Team Providers Care Data Analyst Etl Developer Name Role Phone Mick Tatum MD Primary Care Physician Encounter [facility] [place] Date(s): 11/24/22 - 12/24/22 [facility] Adult [address] [place] [address]- Allergies, Adverse Reactions, Alerts Substance Reaction Severity Status amoxicillin 1 Active Benadryl Shaking Active Cats Active egg-containing compound 2 Re solved Other Environmental Allergy 3 Active Other Food Allergy 4 chicken, peppers, onions Resolved Contrast Dye Active Dust Active 1Tolerates ceftriaxone [...] Given Parent Or Guardian Refuses 1Result Comment: [id number] 2Location History: DR LOAIZA 3Location History: DR LOAIZA 4Location History: DR LOAIZA 5Location History: DR LOAIZA Medications atorvastatin 40 mg oral tablet 1 tablet, By Mouth, Daily at bedtime, # 90 tablet, 3 Refills, Maintenance, 05/13/22 7:24:00 EDT, [facility], 157, cm, 05/12/22 13:47:00 EDT, Height, 94.3, [...] 5 Refills, Maintenance, 05/13/22 9:34:00 EDT, Gel, [facility]/pharmacy #[id number], 157, cm, 05/12/22 13:47:00 EDT, Height, 94.3, kg, 01/19/22 4:25:00 EDT, Dry Weight Start Date: 05/13/22 Status: Ordered Eliquis 5 mg oral tablet 1 tablet, By Mouth, 2 times a day, # 180 tablet, 3 Refills, Maintenance, 05/27/22 16:57:00 EDT, [facility], 157, cm, 05/12/22 13:47:00 EDT, Height, 94.3, [...] 07/10/22 16:07:00 EST, Route to Pharmacy Electronically, [facility]/pharmacy #[id number], Partial fill upon patientrequest if the prescription is for a schedule II op... Start Date: 07/10/22 Status: Ordered latanoprost 0.005% ophthalmic solution See Instructions, INSTILL 1 DROP IN BOTH EYES DAILY BEFORE DINNER, # 2.5 mL, 0 Refills, [facility] 0[facility], 18, INSTILL 1 DROP IN BOTH EYES DAILY BEFORE DINNER, 158, cm, 04/14/21 11:28:00 EDT, Height, 98.6, kg, 04/11/21 15:59:00 EDT, Dry Weight Start Date: 04/14/21 Status: Ordered Metoprolol Succinate ER 25 mg oral tablet, extended release 1 tablet, By Mouth, Daily, # 90 tablet, 3 Refills, 09/30/22 20:06:00 EST, [facility]/pharmacy #[id number], 157, cm, 09/15/22 11:19:00 EST, Height, 94.3, kg, 01/19/22 4:25:00 EDT, Dry Weight Start Date: 09/30/22 Status: Ordered nitroglycerin 0.4 mg sublingual tablet 1 tablet = 0.4 mg, Sublingual, Every 5 minutes, PRN as needed for chest pain, not to exceed 3 doses/15 min--if pain persists, seek medical attention, # 100 tablet, 0 Refills, Maintenance, 12/19/22 9:51:00 EDT, Tablet, [facility]/pharmacy #[id number], Partial fill... Start Date: 12/19/22 Status: Ordered ondansetron 4 mg oral tablet 1 tablet = 4 mg, By Mouth, Every 8 hours, PRN Nausea & Vomiting, # 10 tablet, 2 Refills, Acute 01/30/23 8:27:00 EDT, 11/30/22 8:27:00 EDT, Tablet, [facility]/pharmacy #[id number], Partial fill upon patient request if the prescription is for a schedule II opioid drUriel.. Start Date: 11/30/22 Stop Date: 01/30/23 Status: Ordered rOPINIRole 0.5 mg oral tablet 1 tablet, By Mouth, 4 times a day, # 360 tablet, 1 Refills, Maintenance, 07/25/22 9:33:00 EST, [facility] 328[facility], 157, cm, 07/10/22 15:50:00 EST, Height, 94.3, [...] Name: Mick Tatum MD Position: [facility] Physician - Primary Care Member Role: PCP Address: Address: [address] [place] [id number] Name: Svitlana Clark RN Position: [facility] [...] Care Nurse Name: Sneha Newton RN Position: [facility] Felt Checker Member Role: Primary Care Nurse Care Team Related Persons Name: CLAUDIA URBINA Address: [address] [place] [address] Name: RALPH SÁNCHEZ Address: [address] [place] [address] Name: DONY CARCAMO Address: [address] [place] [address]
--- OUTSIDE RECORDS SUMMARY | 2024-02-08 01:07 | XMS_ITS | Continuity of Care Document ---
Author Organization [facility] Jose lt Address [address] [place] [address]- Care Team Providers Care Biomedical Equipment Support Specialist Name Role Phone Rc CORDEOR, Mick Clay Primary Care Physician [phone] Encounter [facility] [place] Date(s): 04/08/21 - 05/08/21 [facility] Adult [address] [place] [address]- Allergies, Adverse Reactions, Alerts Substance Reaction Severity [...] 04/27/21 13:28:00 EDT, Route to Pharmacy Electronically, [facility]/pharmacy #[id number], Partial fill upon patient request if the prescription... Start Date: 04/27/21 Stop Date: 10/24/21 Status: Ordered aspirin 81 mg oral delayed release tablet 81 mg, 1, tablet, By Mouth, Daily, # 30 tablet, Refills 5, Tot. Refills 5, Maintenance, 10/24/21 13:28:00 EDT, Route to Pharmacy Electronically, [facility]/pharmacy #[id number], Partial fill upon patient request if the prescription is for a schedule II opioid drug... Start Date: 10/24/21 Stop Date: 04/22/22 Status: Ordered atorvastatin 40 mg oral tablet 1 tablet, By Mouth, Daily at bedtime, for 90 days, # 90 tablet, 3 Refills, Physician Stop 04/20/22 16:32:00 EDT, 04/25/21 16:32:00 EDT, [facility]/pharmacy #[id number], 158, cm, 04/25/21 14:49:00 EDT, [...] Refills, Maintenance, 03/23/21 9:41:00 EDT, Solution, [facility]/pharmacy #[id number], Partial fill upon patient request if the prescription is for a schedule II opioid drug., 1 drops Eyes, Both 2 times a day, 159, cm... Start Date: 03/23/21 Status: Ordered [facility] ASPIRIN EC [address] [facility] ASPIRIN EC 81 MG TABLET, 1, tablet, By Mouth, Daily, # 30 tablet, 0 Refills, 158, cm, 04/14/21 11:28:00 EDT, Height, 98.6, kg, 04/11/21 15:59:00 EDT, Dry Weight Start Date: 04/22/21 Status: Ordered diclofenac 1% topical gel 1 application, Topically, 4 times a day, # 100 Gm, 5 Refills, Maintenance, 10/07/19 10:56:00 EDT, Gel, [facility]/pharmacy #[id number], 160, cm, 08/19/19 8:02:00 EST, Height Start Date: 10/07/19 Status: Ordered Eliquis 5 mg oral tablet 1 tablet, By Mouth, 2 times a day, # 180 tablet, 3 Refills, Maintenance, 07/12/20 14:12:00 EST, [facility], 157, cm, 05/07/20 11:34:00 EDT, Height, 91, kg, 02/28/20 22:14:00 EDT, Dry Weight Start Date: 07/12/20 Status: Ordered furosemide 20 mg oral tablet 1, tablet, By Mouth, Daily, # 30 tablet, Refills 0, Route to Pharmacy Electronically, [facility] 73106, 158, cm, 04/22/21 14:39:00 EDT, Height, 98.6, kg, 04/11/21 15:59:00 EDT, Dry Weight Start Date: 04/25/21 Status: Ordered gabapentin 400 mg oral capsule See Instructions, 2 capsule By Mouth 3 times a day, # 180 capsule, Refills 0, Tot. Refills 0, Maintenance, 03/16/21 10:36:00 EDT, Instructions Replace Required Details, [id number] fill upon patient re... Start Date: 03/16/21 Status: Ordered isosorbide mononitrate 30 mg oral tablet, extended release 1 tablet, By Mouth, Daily, for 90 days, # 90 tablet, 3 Refills, Physician Stop 04/20/22 16:32:00 EDT, 04/25/21 16:32:00 EDT, [facility]/pharmacy #[id number], 158, cm, 04/25/21 14:49:00 EDT, Height, 98.6, kg, 04/11/21 15:59:00 EDT, Dry Weight Start Date: 04/25/21 Stop Date: 04/20/22 Status: Ordered latanoprost 0.005% ophthalmic solution See Instructions, INSTILL 1 DROP IN BOTH EYES DAILY BEFORE DINNER, # 2.5 mL, 0 Refills, [facility] 35536, 18, INSTILL 1 DROP IN BOTH EYES DAILY BEFORE DINNER, 158, cm, 04/14/21 11:28:00 EDT, Height, 98.6, kg, 04/11/21 15:59:00 EDT, Dry Weight Start Date: 04/14/21 Status: Ordered Lipitor 40 mg oral tablet 1 tablet = 40 mg, By Mouth, Daily, # 30 tablet, 5 Refills, Maintenance, 04/28/21 6:50:00 EDT, Tablet, [id number] fill upon patient request [...] 12/06/20 13:03:00 EDT, [facility] 04/14/21 12:51:00 EDT, Route to [facility] Electronically, [id number], Partial fill upon patient request if the prescription is... Start Date: 04/14/21 Stop Date: 05/14/21 Status: Ordered torsemide 20 mg oral tablet 1 tablet = 20 mg, By Mouth, Daily, # 30 tablet, 0 Refills, Maintenance, 04/14/21 12:52:00 EDT, Tablet, [id number], Partial fill upon patient request if the prescription is for a schedule II opioid drug., 158, cm, 04/14/21 11:28:00 EDT, Height,... Start Date: 04/14/21 Status: Ordered Vitamin D2 50,000 intl units (1.25 mg) oral capsule 1 capsule = 50,000 International_Units, By Mouth, Every , # 8 capsule, 0 Refills, Maintenance, 04/14/21 12:50:00 EDT, [facility]/pharmacy #[id number], Partial fill [...]
--- OUTSIDE RECORDS SUMMARY | 2024-02-08 01:07 | XMS_ITS | Continuity of Care Document ---
Author Organization [facility] Gopi Jose lt Address [address] [place] [address]- Care Team Providers Care Arborer Name Role Phone Rc CORDERO, Mick Clay Primary Care Physician Encounter [facility] [place] Date(s): 06/13/20 - 07/13/20 [facility] Adult [address] [place] [address]- Allergies, Adverse Reactions, Alerts Substance Reaction Severity [...] 03/30/20 8:48:00 EDT, Route to Pharmacy Electronically, [facility]/pharmacy #[id number], 157, cm, 03/11/20 12:49:00 EDT, Height, 91, kg, 02/28/20 22:14:00 EDT, Dry Weight Start Date: 03/30/20 Stop Date: 03/25/21 Status: Ordered Cosopt ophthalmic solution 1 drops, Eyes, Both, 2 times a day, 0 Refills Start Date: 02/09/09 Status: Ordered diclofenac 1% topical gel 1 application, Topically, 4 times a day, # 100 Gm, 5 Refills, Maintenance, 10/07/19 10:56:00 EDT, Gel, [facility]/pharmacy #[id number], 160, cm, 08/19/19 8:02:00 EST, Height Start Date: 10/07/19 Status: Ordered Eliquis 5 mg oral tablet 1 tablet, By Mouth, 2 times a day, # 180 tablet, 3 Refills, Maintenance, 07/12/20 14:12:00 EST, [facility], 157, cm, 05/07/20 11:34:00 EDT, Height, 91, kg, 02/28/20 22:14:00 EDT, Dry Weight Start Date: 07/12/20 Status: Ordered gabapentin 400 mg oral capsule 400 mg, 1, capsule, By Mouth, 3 times a day, # 270 capsule, Refills 2, Tot. Refills 2, Maintenance,03/30/20 8:48:00 EDT, Route to Pharmacy Electronically, [facility]/pharmacy #[id number], 157, cm, 03/11/20 12:49:00 EDT, Height, 91, kg, 02/28/20 22:14:00 EDT, Dry... Start Date: 03/30/20 Stop Date: 12/25/20 Status: Ordered HYDROmorphone 2 mg oral tablet 1 tablet = 2 mg, By Mouth, Every 8 hours, PRN as needed for pain, # 20 tablet, 0 Refills, Maintenance, 05/07/20 13:21:00 EDT, Tablet, [facility]/pharmacy #[id number], Partial fill upon patient request, 157, cm, 10/16/20 11:34:00 EDT, Height, 91, kg, 02/28/20 22:14... [...]
--- OUTSIDE RECORDS SUMMARY | 2024-02-08 01:07 | XMS_ITS | Continuity of Care Document ---
Author Organization [facility] Address [address] [place] [address]- Care Team Providers Care Policy Change Clerks Supervisor Name Role Phone Mick Tatum MD Primary Care Physician Encounter [facility] [place] Date(s): 08/27/23 - 09/26/23 [facility] [address] [place] [address]- [place] Allergies, Adverse Reactions, Alerts Substance Reaction [...] (Td) 5 07/23/96 Recorde d 1Result Comment: [id number] 2Location History: DR LOAIAZ 3Location History: DR LOAIZA 4Location History: DR LOAIZA 5Location History: DR LOAIZA Medications atorvastatin 40 mg oral tablet 1 tablet, By Mouth, Daily at bedtime, # 90 tablet, 1 Refills, Maintenance, 05/04/23 6:30:00 EDT, [facility] 30514, 157, cm, 03/21/23 14:39:00 EDT, Height, 94.3, [...] capsule, 3 Refills, Maintenance, 09/26/23 5:28:00 EST, [facility] 47661, 157, cm, 09/18/23 11:23:00 EST, Height, 94.3, kg, 01/19/22 4:25:00 EDT, Dry Weight Start Date: 09/26/23 Status: Ordered Eliquis 5 mg oral tablet 1 tablet, By Mouth, 2 times a day, # 180 tablet, 3 Refills, Maintenance, 06/15/23 1:44:00 EST, [facility] 38320, 157, cm, 05/31/23 6:38:00 EST, Height, 94.3, kg, 01/19/22 4:25:00 EDT, Dry Weight Start Date: 06/15/23 Status: Ordered isosorbide mononitrate 60 mg oral tablet, extended release 1 tablet, By Mouth, 2 times a day, # 180 tablet, 3 Refills, Maintenance, 06/13/23 8:27:00 EST, [facility], 157, cm, 05/31/23 6:38:00 EST, Height, 94.3, kg, 01/19/22 4:25:00 EDT, Dry Weight Start Date: 06/13/23 Status: Ordered Jardiance 10 mg oral tablet 1 tablet, By Mouth, Daily in AM, # 90 tablet, 3 Refills, Maintenance, 06/04/23 8:09:00 EST, [facility] 07424, 157, cm, 05/31/23 6:38:00 EST, Height, 94.3, kg, 01/19/22 4:25:00 EDT, Dry Weight Start Date: 06/04/23 Stop Date: 09/02/23 Status: Ordered metoprolol 25 mg oral tablet, extended release 25 mg, 1, tablet, By Mouth, Daily, please take with the 50mg tab for a total of 75mg daily, # 30 tablet, Refills 0, Tot. Refills 0, Maintenance, 09/18/23 12:09:00 EST, Route to Pharmacy Electronically, [facility]/pharmacy #[id number], Partial fill upon patient req... Start Date: 09/18/23 Stop Date: 10/18/23 Status: Ordered Metoprolol Succinate ER 50 mg oral tablet, extended release 1 tablet = 50 mg, By Mouth, Daily, # 90 tablet, 3 Refills, Maintenance, 08/14/23 10:15:00 EST, ER Tablet, [facility]/pharmacy #[id number], Partial [...] tablet, 1 Refills, Maintenance, 09/17/23 7:52:00 EST, [facility] 21469, 157, cm, 08/14/23 10:05:00 EST, Height, 94.3, kg, 01/19/22 4:25:00 EDT, Dry Weight Start Date: 09/17/23 Status: Ordered spironolactone 25 mg oral tablet 25 mg, 1, tablet, By Mouth, 2 times a day, # 180 tablet, Refills 3, Tot. Refills 3, Maintenance, 08/27/23 12:45:00 EST, Route to Pharmacy Electronically, [facility]/pharmacy #[id number], Partial fill upon patientrequest if the prescription is for a schedule II op... Start Date: 08/27/23 Stop Date: 08/21/24 Status: Ordered torsemide 20 mg oral tablet 2 tablet, By Mouth, Daily, # 180 tablet, 3 Refills, Maintenance, 08/13/23 9:50:00 EST, [facility] 39841, 157, cm, 06/27/23 16:10:00 EST, Height, 94.3, [...] Team Personnel Name: Estrellita Putnam RN Position: [facility] RN Member Role: Primary Care Nurse Name: Marlen Kenny RN Position: [facility] RN Member Role: Primary Care Nurse Name: Toshia Muhammad RN Position: [facility] RN Supv Member Role: Primary Care Nurse Name: Suleman Jones RN Position: [facility] RN Member Role: Primary Care Nurse Name: Kathy Medina RN Position: [facility] ED RN W/OE and Tasks Member Role: Primary Care Nurse Name: Marguerite Wang RN Position: [facility] RN Member Role: Primary Care Nurse Name: Mick Tatum MD Position: [facility] Physician - Primary Care Member Role: PCP Address: Address: [address] [place] [phone]- [place] Name: Svitlana Clark RN Position: [facility] RN Member Role: Primary Care Nurse Name: Yoana Guevara RN Position: [facility] RN Member Role: Primary Care Nurse Name: Pierre Groves RN Position: [facility] RN Member Role: Primary Care Nurse Name: Carmen Murphy NP Position: [facility] PCO Associate Professional Member Role: Primary Care Nurse Address: Address: [address] [place] [address]- [place] Name: Rylie Ordonez RN Position: [facility] RN Member Role: Primary Care Nurse Name: Marisa Negrete RN Position: [facility] SN RN Member Role: Primary Care Nurse Name: Aditi Brown RN Position: [facility] Onco RN Member Role: Primary Care Nurse Name: Chana Cazares RN Position: [facility] RN Member Role: Primary Care Nurse Name: Toshia Urbina RN Position: [facility] RN Member Role: Primary Care Nurse Name: Isabel Gray Position: [facility] Notcher Member Role: Tombstone Polisher Name: Aniyah Sloan RN Position: [facility] SN RN Member Role: Primary Care Nurse Name: Rosemary Ramon RN Position: [facility] OB RN Member Role: Primary Care Nurse Name: Sneha Newton RN Position: [facility] Software Architect Member Role: Primary Care Nurse Care Team Related Persons Name: CARLITOS CLAUDIA Address: [address] [place] [address] Name: PRINCESS RALPH Address: [address] [place] [address] Name: DONY CARCAMO Address: [address] [place] [address]
--- OUTSIDE RECORDS SUMMARY | 2024-02-08 01:07 | XMS_ITS | Continuity of Care Document ---
Author Organization [facility] Address [address] [place] [address]- Care Team Providers Care Community Program Assistant Name Role Phone Rc CORDERO, Mick Clay Primary Care Physician [phone] Encounter 03/16/21 - 06/24/21 [facility] [address] [place] [address]- Discharge Disposition: GOALS MET Allergies, Adverse Reactions, Alerts Substance Reaction Severity [...] 04/27/21 13:28:00 EDT, Route to Pharmacy Electronically, [facility]/pharmacy #[id number], Partial fill upon patient request if the prescription... Start Date: 04/27/21 Stop Date: 10/24/21 Status: Ordered aspirin 81 mg oral delayed release tablet 81 mg, 1, tablet, By Mouth, Daily, # 30 tablet, Refills 5, Tot. Refills 5, Maintenance, 10/24/21 13:28:00 EDT, Route to Pharmacy Electronically, [facility]/pharmacy #[id number], Partial fill upon patient request if the prescription is for a schedule II opioid drug... Start Date: 10/24/21 Stop Date: 04/22/22 Status: Ordered atorvastatin 40 mg oral tablet 1 tablet, By Mouth, Daily at bedtime, for 90 days, # 90 tablet, 3 Refills, Physician Stop 04/20/22 16:32:00 EDT, 04/25/21 16:32:00 EDT, [facility]/pharmacy #[id number], 158, cm, 04/25/21 14:49:00 EDT, Height, [...] 0 Refills, Maintenance, 03/23/21 9:41:00 EDT, Solution, [facility]/pharmacy #[id number], Partial fill upon patient request if the prescription is for a schedule II opioid drug., 1 drops Eyes, Both 2 times a day, 159, cm... Start Date: 03/23/21 Status: Ordered [facility] ASPIRIN EC 81 MG TABLET [facility] ASPIRIN EC 81 MG TABLET, 1, tablet, [...] a day, # 180 tablet, 3 Refills, [id number], 158, cm, 06/09/21 10:14:00 EST, Height, 98.6, kg, 04/11/21 15:59:00 EDT, Dry Weight Start Date: 06/17/21 Status: Ordered empagliflozin 10 mg oral tablet 1 tablet = 10 mg, By Mouth, Daily in AM, # 90 tablet, 3 Refills, Maintenance, 06/09/21 12:06:00 EST, Tablet, [facility]/pharmacy #[id number], Partial fill upon patient request if the prescription is for a schedule II opioid drug., 158, cm, 06/09/21 10:14:00 EST, H... Start Date: 06/09/21 Stop Date: 06/04/22 Status: Ordered gabapentin 400 mg oral capsule 2, capsule, By Mouth, 3 times a day, # 180 capsule, Refills 0, Route to Pharmacy Electronically, [id number], 158, cm, 06/09/21 10:14:00 EST, Height, 98.6, kg, 04/11/21 15:59:00 EDT, Dry Weight Start Date: 06/23/21 Status: Ordered HYDROmorphone 2 mg oral tablet 1 tablet = 2 mg, By Mouth, Every 12 hours, PRN Pain , Severe, Dx: Severe lumbar degen disc disease,# 12 tablet, 0 Refills, Acute 07/17/21 8:24:00 EST, 06/17/21 8:24:00 EST, [facility]/pharmacy #[id number], Partial fill upon patient request if the prescription is... Start Date: 06/17/21 Stop Date: 07/17/21 Status: Ordered isosorbide mononitrate 30 mg oral tablet, extended release 1 tablet, By Mouth, Daily, for 90 days, # 90 tablet, 3 Refills, Physician Stop 04/20/22 16:32:00 EDT, 04/25/21 16:32:00 EDT, [facility]/pharmacy #[id number], 158, cm, 04/25/21 14:49:00 EDT, Height, 98.6, kg, 04/11/21 15:59:00 EDT, Dry Weight Start Date: 04/25/21 Stop Date: 04/20/22 Status: Ordered latanoprost 0.005% ophthalmic solution See Instructions, INSTILL 1 DROP IN BOTH EYES DAILY BEFORE DINNER, # 2.5 mL, 0 Refills, [id number], 18, INSTILL 1 DROP IN BOTH EYES DAILY BEFORE DINNER, 158, cm, 04/14/21 11:28:00 EDT, Height, 98.6, kg, 04/11/21 15:59:00 EDT, Dry Weight Start Date: 04/14/21 Status: Ordered Lipitor 40 mg oral tablet 1 tablet = 40 mg, By Mouth, Daily, # 30 tablet, 5 Refills, Maintenance, 04/28/21 6:50:00 EDT, Tablet, [facility]/pharmacy #[id number], Partial fill [...] 12/06/20 13:03:00 EDT, Route to Pharmacy Electronically, [facility]/pharmacy #[id number], Partial fill upon patient request if the prescription is for a schedule II opioid drug... Start Date: 12/06/20 Stop Date: 06/04/21 Status: Ordered Metoprolol Succinate ER 25 mg oral tablet, extended release 1 tablet, By Mouth, Daily, # 90 tablet, 2 Refills, [id number], 158, cm, 04/25/21 14:49:00 EDT,Height, 98.6, kg, 04/11/21 15:59:00 EDT, Dry Weight Start Date: 06/01/21 Status: Ordered nitroglycerin 0.4 mg sublingual tablet 1 tablet = 0.4 mg, Sublingual, Every 5 minutes, PRN as needed for chest pain, not to exceed 3 doses/15 min--if pain persists, seek medical attention, # 100 tablet, 0 Refills, Maintenance, 03/15/21 12:38:00 EDT, Tablet, [facility]/pharmacy #[id number], Partial fill... Start Date: 03/15/21 Status: [...] 2 Refills, Maintenance, 05/26/21 12:47:00 EDT, Tablet, [facility]/pharmacy #[id number], Partial fill [...] 05/14/21 12:51:00 EDT, Route to Pharmacy Electronically, [facility]/pharmacy #[id number], Partial fill upon patient request if the prescription is... Start Date: 05/14/21 Stop Date: 11/10/21 Status: Ordered torsemide 20 mg oral tablet 1 tablet = 20 mg, By Mouth, Daily, # 30 tablet, 5 Refills, Maintenance, 05/10/21 4:19:00 EDT, Tablet, [facility]/pharmacy #[id number], Partial fill upon patient request if the prescription is for a schedule II opioid drug., 158, cm, 04/25/21 14:49:00 EDT, Height,... Start Date: 05/10/21 Status: Ordered Vitamin D2 50,000 intl units (1.25 mg) oral capsule 1 capsule = 50,000 International_Units, By Mouth, Every , # 8 capsule, 0 Refills, Maintenance, 04/14/21 12:50:00 EDT, [facility]/pharmacy #[id number], Partial fill [...]
--- OUTSIDE RECORDS SUMMARY | 2024-02-08 01:07 | XMS_ITS | Continuity of Care Document ---
Author Organization [facility] Address [address] [place] [id number]- Care Team Providers Care Playground Equipment Erector Name Role Phone Mick Tatum MD Primary Care Physician [phone] [place] [facility] [place](s): 11/29/21 - 12/29/21 [facility] [address] [place], [place] [address] Attending Physician: Julia Haile Admitting Physician: Admtr, Julia Referring Physician: Admtr, [...] 07/09/21 10:04:00 EST, Route to Pharmacy Electronically, [facility]/pharmacy #[id number], Partial fill upon patient request if the prescription is for a schedule II opioid . Start Date: 07/09/21 Stop Date: 07/04/22 Status: Ordered Cosopt 2.23%-0.68% ophthalmic solution 1 drops, Eyes, Both, 2 times a day, # 10 mL, 0 Refills, Maintenance, 03/23/21 9:41:00 EDT, Solution, [facility]/pharmacy #[id number], Partial fill upon patient request if the prescription is for a schedule II opioid drug., 1 drops Eyes, Both 2 times a day, 159, cm... Start Date: 03/23/21 Status: Ordered diclofenac 1% topical gel 1 application, Topically, 4 times a day, # 100 Gm, 5 Refills, Maintenance, 10/07/19 10:56:00 EDT, Gel, [facility]/pharmacy #[id number], 160, cm, 08/19/19 8:02:00 EST, Height Start Date: 10/07/19 Status: Ordered Eliquis 5 mg oral tablet 1 tablet, By Mouth, 2 times a day, # 180 tablet, 3 Refills, [id number], 158, cm, 06/09/21 10:14:00 EST, Height, 98.6, kg, 04/11/21 15:59:00 EDT, Dry Weight Start Date: 06/17/21 Status: Ordered empagliflozin 10 mg oral tablet 1 tablet = 10 mg, By Mouth, Daily in AM, # 90 tablet, 3 Refills, Maintenance, 06/09/21 12:06:00 EST, Tablet, [facility]/pharmacy #[id number], [...] 07/31/21 10:21:00 EST, Route to Pharmacy Electronically, [facility]/pharmacy #[id number], 159, cm, 07/25/21 11:20:00 EST, Height, 98, kg, 07/06/21 19:57:00 EST, Dry Weight Start Date: 07/31/21 Status: Ordered isosorbide mononitrate 30 mg oral tablet, extended release 1 tablet, By Mouth, Daily, for 90 days, # 90 tablet, 3 Refills, Physician Stop 04/20/22 16:32:00 EDT, 04/25/21 16:32:00 EDT, [facility]/pharmacy #[id number], 158, cm, 04/25/21 14:49:00 EDT, Height, 98.6, kg, 04/11/21 15:59:00 EDT, Dry Weight Start Date: 04/25/21 Stop Date: 04/20/22 Status: Ordered latanoprost 0.005% ophthalmic solution See Instructions, INSTILL 1 DROP IN BOTH EYES DAILY BEFORE DINNER, # 2.5 mL, 0 Refills, [id number], 18, INSTILL 1 DROP IN BOTH EYES DAILY BEFORE DINNER, 158, cm, 04/14/21 11:28:00 EDT, Height, 98.6, kg, 04/11/21 15:59:00 EDT, Dry Weight Start Date: 04/14/21 Status: Ordered Lipitor 40 mg oral tablet 1 tablet = 40 mg, By Mouth, Daily, # 30 tablet, 5 Refills, Maintenance, 04/28/21 6:50:00 EDT, Tablet, [facility]/pharmacy #[id number], [...] 12/06/20 13:03:00 EDT, [facility] # [facility] tablet, 1 Refills, [facility], 159, cm, 11/14/21 9:20:00 EDT, Height, 98, kg, 07/06/21 19:57:00 EST, Dry Weight Start Date: 11/22/21 Status: Ordered spironolactone 25 mg oral tablet 25 mg, 1, tablet, By Mouth, 2 times a day, # 180 tablet, Refills 3, Tot. Refills 3, Maintenance, 11/14/21 9:55:00 EDT, Route to Pharmacy Electronically, [facility]/pharmacy #[id number], Partial fill upon patient request if the prescription is for a schedule II opi... Start Date: 11/14/21 Stop Date: 11/09/22 Status: Ordered torsemide 20 mg oral tablet 2 tablet = 40 mg, By Mouth, Daily, # 90 tablet, 1 Refills, 12/13/21 10:45:00 EDT, [facility]/pharmacy #[id number], 159, cm, 12/13/21 10:22:00 EDT, Height, [...]
--- OUTSIDE RECORDS SUMMARY | 2024-02-08 01:07 | XMS_ITS | Continuity of Care Document ---
Author Organization [facility] Address [address] [place] [address]- Care Team Providers Care Inventory Representative Name Role Phone Mick Tatum MD Primary Care Physician [place] [facility] [place]20 [facility] [address] [place] [address]- Attending Physician: Mick Tatum MD Allergies, Adverse [...] 03/30/20 8:48:00 EDT, Route to Pharmacy Electronically, [facility]/pharmacy #[id number], 157, cm, 03/11/20 12:49:00 EDT, Height, 91, kg, 02/28/20 22:14:00 EDT, Dry Weight Start Date: 03/30/20 Stop Date: 03/25/21 Status: Ordered aspirin 81 mg oral delayed release tablet 81 mg, 1, tablet, By Mouth, Daily, # 30 tablet, Refills 0, Tot. Refills 0, Maintenance, 09/20/20 14:38:00 EST, Route to Pharmacy Electronically, [facility]/pharmacy #[id number], Partial fill upon [...] Acute 02/27/21 10:03:00 EDT, 11/25/20 10:36:00 EDT, [facility]/pharmacy #[id number], Partial fill upon [...] 5 Refills, Maintenance, 10/07/19 10:56:00 EDT, Gel, [facility]/pharmacy #[id number], 160, cm, 08/19/19 8:02:00 EST, Height Start Date: 10/07/19 Status: Ordered Eliquis 5 mg oral tablet 1 tablet, By Mouth, 2 times a day, # 180 tablet, 3 Refills, Maintenance, 07/12/20 14:12:00 EST, [id number], 157, cm, 05/07/20 11:34:00 EDT, Height, 91, [...] 0 Refills, Maintenance, 08/30/20 10:02:00 EST, Tablet, [facility]/pharmacy #[id number], Partial fill upon [...] Acute 12/03/20 19:00:00 EDT, 10/21/20 16:25:00 EDT, [facility]/pharmacy #[id number], 157, cm, 09/20/20 14:01:00 EST, Hei... [...] tablet, 0 Refills,Soft Stop, 10/21/20 16:26:00 EDT, [facility]/pharmacy #[id number], Partial fill upon patient request if the [...] oldest [Reference Range]: 1 Height 157 cm (10/25/20 11:23 AM) Weight 106 kg (10/25/20 11:23 AM) Oxygen Saturation [94-100 %] 97 % (10/25/20 11:23 AM) Pulse Rate [55-90 bpm] 75 bpm (10/25/20 11:23 AM) Body Mass Index [18.5-24.99] 43 *>HHI* (10/25/20 11:23 AM) Blood Pressure [90-138/55-84 mm Hg] 130/ 88mm Hg (10/25/20 11:23 AM) Temperature [96.8-100.4 DegF] 97.9 DegF (10/25/20 11:23 AM) Blood pressure sites Arm, left (10/25/20 11:23 AM) Temperature Route Oral (10/25/20 11:23 AM) Weight Obtained Via Standing scale (10/25/20 11:23 AM) Social History Social History Type Response Smoking Status Never (less than 100 in lifetime) entered on: 06/27/18 Sex Female
--- OUTSIDE RECORDS SUMMARY | 2024-02-08 01:07 | XMS_ITS | Continuity of Care Document ---
Author Organization [facility] Address [address] [place] [address]- Care Team Providers Care Fur Dressing Supervisor Name Role Phone Rc CORDERO, Mick Clay Primary Care Physician Encounter [facility] Date(s): 05/07/20 - 08/06/20 [facility] [address] [place] [address]- Attending Physician: Марина CORDERO, Ignacio New Allergies, Adverse Reactions, Alerts Substance Reaction Severity Status amoxicillin 1 Active Cats Active egg-containing compound 2 Re solved Other Food Allergy 3 chicken, peppers, onions Resolved Other Environmental Allergy 4 Active Contrast Dye Active Dust Active 1Tolerates [...] 03/30/20 8:48:00 EDT, Route to Pharmacy Electronically, [facility]/pharmacy #[id number], 157, cm, 03/11/20 12:49:00 EDT, [...] 3 Refills, Maintenance, 07/12/20 14:12:00 EST, [facility], 157, cm, 05/07/20 11:34:00 EDT, Height, 91, kg, 02/28/20 22:14:00 EDT, Dry Weight Start Date: 07/12/20 Status: Ordered gabapentin 400 mg oral capsule 400 mg, 1, capsule, By Mouth, 3 times a day, # 270 capsule, Refills 2, Tot. Refills 2, Maintenance,03/30/20 8:48:00 EDT, Route to Pharmacy Electronically, [facility]/pharmacy #[id number], 157, cm, 03/11/20 12:49:00 EDT, [...]
--- OUTSIDE RECORDS SUMMARY | 2024-02-08 01:07 | XMS_ITS | Continuity of Care Document ---
Author Organization [facility] Address [address] [place] [address]- Care Team Providers Care Aadc Plans Staff Officer Name Role Phone Mick Tatum MD Primary Care Physician [place] [facility] [place] 03[place] [facility] [address] [place] [address]- Attending Physician: Mick Tatum MD Allergies, Adverse [...] # 90 tablet, 1 Refills, [facility], 159, cm, 03/23/21 9:06:00 EDT, Height, 100.2, kg, 03/15/21 4:17:00 EDT, Dry Weight Start Date: 03/25/21 Status: Ordered aspirin 81 mg oral delayed release tablet 81 mg, 1, tablet, By Mouth, Daily, # 30 tablet, Refills 0, Tot. Refills 0, Maintenance, 03/15/21 12:35:00 EDT, Route to Pharmacy Electronically, [facility]/pharmacy #[id number], Partial fill upon patient request [...] opioid drug. Start Date: 03/10/21 Status: Ordered Cosopt 2.23%-0.68% ophthalmic solution 1 drops, Eyes, Both, 2 times a day, # 10 mL, 0 Refills, Maintenance, 03/23/21 9:41:00 EDT, Solution, [facility]/pharmacy #[id number], Partial fill upon patient request if the prescription is for a schedule II opioid drug., 1 drops Eyes, Both 2 times a day, 159, cm... Start Date: 03/23/21 Status: Ordered diclofenac 1% topical gel 1 application, Topically, 4 times a day, # 100 Gm, 5 Refills, Maintenance, 10/07/19 10:56:00 EDT, Gel, [facility]/pharmacy #[id number], 160, cm, 08/19/19 8:02:00 EST, Height Start Date: 10/07/19 Status: Ordered Eliquis 5 mg oral tablet 1 tablet, By Mouth, 2 times a day, # 180 tablet, 3 Refills, Maintenance, 07/12/20 14:12:00 EST, [facility], 157, cm, 05/07/20 11:34:00 EDT, Height, 91, kg, 02/28/20 22:14:00 EDT, Dry Weight Start Date: 07/12/20 Status: Ordered furosemide 20 mg oral tablet 1, tablet, By Mouth, Daily, # 30 tablet, Refills 0, Route to Pharmacy Electronically, [facility], 159, cm, 03/15/21 14:39:00 EDT, Height, 100.2, kg, 03/15/21 4:17:00 EDT, Dry Weight Start Date: 03/21/21 Status: Ordered gabapentin 400 mg oral capsule See Instructions, 2 capsule By Mouth 3 times a day, # 180 capsule, Refills 0, Tot. Refills 0, Maintenance, 03/16/21 10:36:00 EDT, Instructions Replace Required Details, Route to Pharmacy Electronically, [facility]/pharmacy #[id number], Partial fill upon patient re... Start Date: 03/16/21 Status: Ordered isosorbide mononitrate 30 mg oral tablet, extended release 1 tablet = 30 mg, By Mouth, Daily, # 30 tablet, 0 Refills, Maintenance, 03/15/21 12:37:00 EDT, ER Tablet, [facility]/pharmacy #[id number], Partial fill upon patient request if the prescription is for a schedule II opioid drug., 159, cm, 03/15/21 8:14:00 EDT, Heigh... Start Date: 03/15/21 Status: Ordered Lipitor 40 mg oral tablet 1 tablet = 40 mg, By Mouth, Daily at bedtime, # 30 tablet, 0 Refills, Maintenance, 03/15/21 12:37:00 EDT, Tablet, [facility]/pharmacy #[id number], Partial fill upon patient request if the prescription is for a schedule II opioid drug., 159, cm, 03/15/21 8:14:00 ED... Start Date: 03/15/21 Status: Ordered metoprolol 25 mg oral tablet, extended release 25 mg, 1, tablet, By Mouth, Daily, # 30 tablet, Refills 5, Tot. Refills 5, Maintenance, 12/06/20 13:03:00 EDT, [id number] fill upon patient [...] 0 Refills, Maintenance, 03/15/21 12:38:00 EDT, Tablet, [facility]/pharmacy #[id number], Partial fill... Start Date: 03/15/21 Status: Ordered rOPINIRole 0.5 mg oral tablet 1 tablet = 0.5 mg, By Mouth, 4 times a day, Maintenance, 03/10/21 18:53:00 EDT, Tablet, Partial fill upon patient request if the prescription is for a schedule II opioid drug. Start Date: 03/10/21 Status: Ordered Xalatan 0.005% solution 1 drops, Eyes, Both, Daily before dinner, # 2.5 mL, 0 Refills, Maintenance, 03/23/21 9:41:00 EDT, Ophth Solution, [facility]/pharmacy #[id number], Partial fill upon patient request if the prescription is for a schedule II opioid drug., 1 drops Eyes, Both Daily bef... Start Date: 03/23/21 Status: Ordered Problem List Condition Effective Dates [...] oldest [Reference Range]: 1 Height 159 cm (03/23/21 9:06 AM) Oxygen Saturation [94-100 %] 95 % (03/23/21 9:06 AM) Pulse Rate [55-90 bpm] 87 bpm (03/23/21 9:06 AM) Blood Pressure [90-138/55-84 mm Hg] 114/ 59mm Hg (03/23/21 9:06 AM) Temperature [96.8-100.4 DegF] 98.9 DegF (03/23/21 9:06 AM) Blood pressure sites Arm, right (03/23/21 9:06 AM) Temperature Route Oral (03/23/21 9:06 AM) Social History Social History Type Response Smoking Status Never (less than 100 in lifetime) entered on: 06/27/18 Sex
--- OUTSIDE RECORDS SUMMARY | 2024-02-08 01:07 | XMS_ITS | Continuity of Care Document ---
Author Organization [facility] Ugo Nguyễn Jose lt Address [address] [place] [address]- Care Team Providers Care Floor Clerk Name Role Phone Mick Tatum MD Primary Care Physician [phone] [place] [facility] [place](s): 07/27/22 - 08/26/22 [facility] Adult [address] [place] [address]- Attending Physician: Admtr, Julia Admitting Physician: Admtr, Julia Referring Physician: Admtr, Ar8 Allergies, Adverse Reactions, Alerts Substance Reaction Severity Status amoxicillin 1 Active Dust Active Other Environmental Allergy 2 Active Benadryl [...] Given Parent Or Guardian Refuses 1Result Comment: [id number] 2Location History: DR LOAIZA 3Location History: DR LOAIZA 4Location History: DR LOAIZA 5Location History: DR LOAIZA Medications atorvastatin 40 mg oral tablet 1 tablet, By Mouth, Daily at bedtime, # 90 tablet, 3 Refills, Maintenance, 05/13/22 7:24:00 EDT, [id number], 157, cm, 05/12/22 13:47:00 EDT, Height, 94.3, [...] 6:58:00 EDT, 01/18/22 6:58:00 EDT, CR Capsule, [facility]/pharmacy #[id number], Partial fill upon patient request if the prescription is for a schedule II opioid drug., 159, cm, 12/21... Start Date: 01/18/22 Stop Date: 01/18/23 Status: Ordered clopidogrel 75 mg oral tablet 75 mg, 1, tablet, By Mouth, Daily, # 90 tablet, Refills 3, Tot. Refills 3, Maintenance, 07/10/22 16:07:00 EST, Route to Pharmacy Electronically, [facility]/pharmacy #[id number], Partial fill upon patient request if the prescription is for a schedule II opioid drug... Start Date: 07/10/22 Stop Date: 07/05/23 Status: Ordered Cosopt 2.23%-0.68% ophthalmic solution 1 drops, Eyes, Both, 2 times a day, # 10 mL, 0 Refills, Maintenance, 03/23/21 9:41:00 EDT, Solution, [facility]/pharmacy #[id number], Partial fill upon patient request if the prescription is for a schedule II opioid drug., 1 drops Eyes, Both 2 times a day, 159, cm... Start Date: 03/23/21 Status: Ordered diclofenac 1% topical gel 1 application, Topically, 4 times a day, # 100 Gm, 5 Refills, Maintenance, 05/13/22 9:34:00 EDT, Gel, [facility]/pharmacy #[id number], 157, cm, 05/12/22 13:47:00 EDT, Height, 94.3, kg, 01/19/22 4:25:00 EDT, Dry Weight Start Date: 05/13/22 Status: Ordered Eliquis 5 mg oral tablet 1 tablet, By Mouth, 2 times a day, # 180 tablet, 3 Refills, Maintenance, 05/27/22 16:57:00 EDT, [facility], 157, cm, 05/12/22 13:47:00 EDT, Height, 94.3, kg, 01/19/22 4:25:00 EDT, Dry Weight Start Date: 05/27/22 Status: Ordered empagliflozin 10 mg oral tablet 1 tablet = 10 mg, By Mouth, Daily in AM, # 90 tablet, 3 Refills, Maintenance, 06/09/22 12:36:00 EST, Tablet, [facility]/pharmacy #[id number], Partial fill upon patient request if the prescription is for a schedule II opioid drug., 157, cm, 05/12/22 13:47:00 EDT, H... Start Date: 06/09/22 Stop Date: 06/04/23 Status: Ordered gabapentin 400 mg oral capsule 2, capsule, By Mouth, 3 times a day, # 180 capsule, Refills 5, Route to Pharmacy Electronically, [facility] ST[facility] 127[facility], 159, cm, 12/21/21 15:41:00 EDT, Height, 93.6, kg, 01/06/22 9:12:00 EDT, Dry Weight Start Date: 01/17/22 Status: Ordered isosorbide mononitrate 60 mg oral tablet, extended release 60 mg, 1, tablet, By Mouth, 2 times a day, # 180 tablet, Refills 3, Tot. Refills 3, Maintenance, 07/10/22 16:07:00 EST, Route to Pharmacy Electronically, [facility]/pharmacy #[id number], Partial fill upon patientrequest if the prescription is for a schedule II op... Start Date: 07/10/22 Status: Ordered latanoprost 0.005% ophthalmic solution See Instructions, INSTILL 1 DROP IN BOTH EYES DAILY BEFORE DINNER, # 2.5 mL, 0 Refills, [facility] ST[facility] 45073, 18, INSTILL 1 DROP IN BOTH EYES DAILY BEFORE DINNER, 158, cm, 04/14/21 11:28:00 EDT, Height, 98.6, kg, 04/11/21 15:59:00 EDT, Dry Weight Start Date: 04/14/21 Status: Ordered Metoprolol Succinate ER 25 mg oral tablet, extended release 1 tablet, By Mouth, Daily, # 90 tablet, 2 Refills, [facility] ST[facility] 95443, 159, cm, 12/21/21 15:41:00 EDT,Height, 93.6, kg, 01/06/22 9:12:00 EDT, Dry Weight Start Date: 01/16/22 Status: Ordered nitroglycerin 0.4 mg sublingual tablet 1 tablet = 0.4 mg, Sublingual, Every 5 minutes, PRN as needed for chest pain, not to exceed 3 doses/15 min--if pain persists, seek medical attention, # 100 tablet, 0 Refills, Maintenance, 03/15/21 12:38:00 EDT, Tablet, [facility]/pharmacy #[id number], Partial fill... Start Date: 03/15/21 Status: Ordered rOPINIRole 0.5 mg oral tablet 1 tablet, By Mouth, 4 times a day, # 360 tablet, 1 Refills, Maintenance, 07/25/22 9:33:00 EST, [facility] ST[facility] 41791, 157, cm, 07/10/22 15:50:00 EST, Height, 94.3, [...] 05/20/22 16:10:00 EDT, Route to Pharmacy Electronically, [facility]/pharmacy #[id number], Partial fill uponpatient [...] study * Event Display: EKG Authored Date: Note * Event Display: Non BH Lab Results Authored Date: * Event Display: Ultrasound Lower Extremity, Non-BH Authored Date: Patient Care team information Care [...] Muhammad RN Position: [facility] RN Supjulieth Member Role: Primary Care Nurse Name: Suleman Jones RN Position: [facility] RN Member Role: Primary Care Nurse Name: Kathy Medina RN Position: [facility] RN Member Role: Primary Care Nurse Name: Lesli Mercedes RN Position: [facility] RN Member Role: Primary Care Nurse Name: Marguerite Wang RN Position: [facility] RN Member Role: Primary Care Nurse Name: Ananya Robledo RN Position: [facility] RN Member Role: Primary Care Nurse Name: Mick Tatum MD Position: [facility] Primary Care Physician Member Role: PCP Address: Address: [address] [place] [address] Name: Svitlana Clark RN Position: [facility] [...] Rylie Ordonez RN Position: [facility] [place] RN Member Role: Primary [...] Sneha Newton RN Position: [facility] Extension Edger Member Role: Primary Care Nurse Care Team Related Persons Name: CLAUDIA URBINA Address: home [address] [place] [address] Name: RALPH SÁNCHEZ Address: [address] [place] [address] Name: DONY CARCAMO Address: home [address] [place] [address]
--- OUTSIDE RECORDS SUMMARY | 2024-02-08 01:08 | XMS_ITS | Continuity of Care Document ---
Author Organization [facility] Gopi Jose lt Address [address] [place] [address]- Care Team Providers Care Senior Information Systems Architect Name Role Phone Rc CORDERO, Mick Clay Primary Care Physician [phone] Encounter [facility] [place] Date(s): 09/25/23 - 10/25/23 [facility] Gopi Adult [address] [place] [address]- Allergies, Adverse Reactions, Alerts Substance Reaction Severity [...] 07/23/08 Recorded tetanus-diphtheria toxoids (Td) 5 07/23/96 [facility] [place] Comment: [id number] 2Location History: DR LOAIZA 3Location History: DR LOAIZA 4Location History: DR LOAIZA 5Location History: DR LOAIZA Medications atorvastatin 40 mg oral tablet 1 tablet, By Mouth, Daily at bedtime, # 90 tablet, 1 Refills, Maintenance, 05/04/23 6:30:00 EDT, [facility], 157, cm, 03/21/23 14:39:00 EDT, Height, 94.3, [...] Gm, 1 Refills, Maintenance, 06/29/23 16:21:00 EST, [facility]/pharmacy #[id number], Partial safia... Start Date: 06/29/23 Status: Ordered duloxetine 20 mg oral enteric coated capsule 1 capsule, By Mouth, Daily at bedtime, # 90 capsule, 3 Refills, Maintenance, 09/26/23 5:28:00 EST, [facility], 157, cm, 09/18/23 11:23:00 EST, Height, 94.3, kg, 01/19/22 4:25:00 EDT, Dry Weight Start Date: 09/26/23 Status: Ordered Eliquis 5 mg oral tablet 1 tablet, By Mouth, 2 times a day, # 180 tablet, 3 Refills, Maintenance, 06/15/23 1:44:00 EST, [facility], 157, cm, 05/31/23 6:38:00 EST, Height, 94.3, kg, 01/19/22 4:25:00 EDT, Dry Weight Start Date: 06/15/23 Status: Ordered isosorbide mononitrate 60 mg oral tablet, extended release 1 tablet, By Mouth, 2 times a day, # 180 tablet, 3 Refills, Maintenance, 06/13/23 8:27:00 EST, [facility], 157, cm, 05/31/23 6:38:00 EST, Height, 94.3, kg, 01/19/22 4:25:00 EDT, Dry Weight Start Date: 06/13/23 Status: Ordered Jardiance 10 mg oral tablet 1 tablet, By Mouth, Daily in AM, # 90 tablet, 3 Refills, Maintenance, 06/04/23 8:09:00 EST, [facility], 157, cm, 05/31/23 6:38:00 EST, Height, 94.3, kg, 01/19/22 4:25:00 EDT, Dry Weight Start Date: 06/04/23 Stop Date: 09/02/23 Status: Ordered Metoprolol Succinate ER 25 mg oral tablet, extended release 1 tablet, By Mouth, Daily, # 30 tablet, 0 Refills, Maintenance, 10/15/23 7:41:00 EDT, [facility], 157, cm, 09/18/23 11:23:00 EST, Height, 94.3, kg, 01/19/22 4:25:00 EDT, Dry Weight Start Date: 10/15/23 Status: Ordered nitroglycerin 0.4 mg sublingual tablet 1 tablet = 0.4 mg, Sublingual, Every 5 minutes, PRN as needed for chest pain, not to exceed 3 doses/15 min--if pain persists, seek medical attention, # 100 tablet, 0 Refills, Maintenance, 12/19/22 9:51:00 EDT, Tablet, [facility]/pharmacy #[id number], Partial fill... Start Date: 12/19/22 Status: Ordered oxyCODONE 5 mg oral tablet 5 mg, 1, tablet, By Mouth, 2 times a day, PRN, # 56 tablet, Refills 0, Tot. Refills 0, Acute 06/28/24 12:36:00 EST, as needed for pain, 06/28/23 12:35:00 EST, Route to Pharmacy Electronically, [facility]/pharmacy #[id number], Partial fill upon patient request if t... Start Date: 06/28/23 Stop Date: 06/28/24 Status: Ordered pantoprazole 40 mg oral delayed release tablet 0 Refills, Maintenance, 03/21/23 14:39:00 EDT Start Date: 03/21/23 Status: Ordered rOPINIRole 0.5 mg oral tablet 1 tablet, By Mouth, 4 times a day, # 360 tablet, 1 Refills, Maintenance, 09/17/23 7:52:00 EST, [facility], 157, cm, 08/14/23 10:05:00 EST, Height, 94.3, kg, 01/19/22 4:25:00 EDT, Dry Weight Start Date: 09/17/23 Status: Ordered spironolactone 25 mg oral tablet 25 mg, 1, tablet, By Mouth, 2 times a day, # 180 tablet, Refills 3, Tot. Refills 3, Maintenance, 08/27/23 12:45:00 EST, Route to Pharmacy Electronically, [facility]/pharmacy #[id number], Partial fill upon patientrequest if the prescription is for a schedule II op... Start Date: 08/27/23 Stop Date: 08/21/24 Status: Ordered torsemide 20 mg oral tablet 2 tablet, By Mouth, Daily, # 180 tablet, 3 Refills, Maintenance, 08/13/23 9:50:00 EST, [facility], 157, cm, 06/27/23 16:10:00 EST, Height, 94.3, [...] Team Personnel Name: Estrellita Putnam RN Position: [facility] RN Member Role: Primary Care Nurse Name: Marlen Kenny RN Position: [facility] RN Member Role: Primary Care Nurse Name: Toshia Muhammad RN Position: [facility] RN Martha Member Role: Primary Care Nurse Name: Suleman Jones RN Position: [facility] RN Member Role: Primary Care Nurse Name: Kathy Medina RN Position: [facility] RN Member Role: Primary Care Nurse Name: Marguerite Wang RN Position: [facility] RN Member Role: Primary Care Nurse Name: Mick Tatum MD Position: [facility] Physician - Primary Care Member Role: PCP Address: Address: [address] [place] [address]- [place] Name: Svitlana Clark RN Position: [facility] RN Member Role: Primary Care Nurse Name: Yoana Guevara RN Position: [facility] RN Member Role: Primary Care Nurse Name: Pierre Groves RN Position: [facility] RN Member Role: Primary Care Nurse Name: Carmen Murphy NP Position: [facility] PCO Associate Professional Member Role: Primary Care Nurse Address: Address: [address] [place] [address]- [place] Name: Rylie Ordonez RN Position: [facility] RN Member Role: Primary Care Nurse Name: Marisa Negrete RN Position: [facility] SN RN Member Role: Primary Care Nurse Name: Aditi Brown RN Position: [facility] Onco RN Member Role: Primary Care Nurse Name: Chana Cazares RN Position: [facility] RN Member Role: Primary Care Nurse Name: Toshia Urbina RN Position: [facility] RN Member Role: Primary Care Nurse Name: Isabel Gray Position: [facility] [employer] Packages Tester Member Role: Space Officer Name: Aniyah Sloan RN Position: [facility] SN RN Member Role: Primary Care Nurse Name: Rosemary Ramon RN Position: [facility] OB RN Member Role: Primary Care Nurse Name: Sneha Newton RN Position: [facility] Infection Control Manager Member Role: Primary Care Nurse Care Team Related Persons Name: CLAUDIA URBINA Address: [address] [place] [address] Name: RALPH SÁNCHEZ Address: [address] [place] [address] Name: DONY CARCAMO Address: [address] [place] [address]
--- OUTSIDE RECORDS SUMMARY | 2024-02-08 01:08 | XMS_ITS | Continuity of Care Document ---
Author Organization [facility] Gopi Jose lt Address [address] [place] [address]- Care Team Providers Care Art Psychotherapist Name Role Phone Mick Tatum MD Primary Care Physician [phone] Encounter [facility] [place] Date(s): 06/27/23 - 07/27/23 [facility] Ugo Willley Adult [address] [place] [address]- Attending Physician: Admtr, Julia Admitting Physician: Admtr, [...] (Td) 5 07/23/96 Recorde d 1Result Comment: [id number] 2Location History: DR LOAIZA 3Location History: DR LOAIZA 4Location History: DR LOAIZA 5Location History: DR LOAIZA Medications atorvastatin 40 mg oral tablet 1 tablet, By Mouth, Daily at bedtime, # 90 tablet, 1 Refills, Maintenance, 05/04/23 6:30:00 EDT, [facility], 157, cm, 03/21/23 14:39:00 EDT, Height, 94.3, [...] 1 Refills, Maintenance, 06/29/23 16:21:00 EST, [facility]/pharmacy #[id number], Partial safia... Start Date: 06/29/23 Status: Ordered Diflucan 150 mg oral tablet See Instructions, 1/2 tablet every 3 days for 12 days, # 2 tablet, 0 Refills, Soft Stop, 05/31/23 7:14:00 EST, [facility]/pharmacy #[id number], Partial fill upon patient request if the prescription is for a schedule II opioid drug., 157, cm, 05/31/23 6:38:00 EST,... Start Date: 05/31/23 Status: Ordered duloxetine 20 mg oral enteric coated capsule 1 capsule = 20 mg, By Mouth, Daily at bedtime, # 30 capsule, 2 Refills, Maintenance, 06/28/23 12:37:00 EST, [facility]/pharmacy #[id number], Partial fill upon patient request if the prescription is for a scheduleII opioid drug., 157, cm, 06/27/23 16:10:00 EST, [facility] Start Date: 06/28/23 Status: Ordered Eliquis 5 mg oral tablet 1 tablet, By Mouth, 2 times a day, # 180 tablet, 3 Refills, Maintenance, 06/15/23 1:44:00 EST, [facility], 157, cm, 05/31/23 6:38:00 EST, Height, 94.3, kg, 01/19/22 4:25:00 EDT, Dry Weight Start Date: 06/15/23 Status: Ordered HYDROmorphone 2 mg oral tablet 1 tablet = 2 mg, By Mouth, Every 6 hours, PRN Pain , Severe, Dx: M51.36, # 28 tablet, 0 Refills, Acute 11/18/23 15:27:00 EDT, 07/19/23 15:25:00 EST, [facility]/pharmacy #[id number], Partial fill upon patient request if the prescription is for a schedule II opioid... Start Date: 07/19/23 Stop Date: 11/18/23 Status: Ordered isosorbide mononitrate 30 mg oral tablet, extended release 1 tablet, By Mouth, Daily, # 90 tablet, 3 Refills, Maintenance, 06/13/23 8:27:00 EST, [facility], 157, cm, 05/31/23 6:38:00 EST, Height, 94.3, kg, 01/19/22 4:25:00 EDT, Dry Weight Start Date: 06/13/23 Status: Ordered isosorbide mononitrate 60 mg oral tablet, extended release 1 tablet, By Mouth, 2 times a day, # 180 tablet, 3 Refills, Maintenance, 06/13/23 8:27:00 EST, [facility] 264[facility], 157, cm, 05/31/23 6:38:00 EST, Height, 94.3, kg, 01/19/22 4:25:00 EDT, Dry Weight Start Date: 06/13/23 Status: Ordered Jardiance 10 mg oral tablet 1 tablet, By Mouth, Daily in AM, # 90 tablet, 3 Refills, Maintenance, 06/04/23 8:09:00 EST, [facility], 157, cm, 05/31/23 6:38:00 EST, Height, 94.3, kg, 01/19/22 4:25:00 EDT, Dry Weight Start Date: 06/04/23 Stop Date: 09/02/23 Status: Ordered Metoprolol Succinate ER 25 mg oral tablet, extended release 1 tablet, By Mouth, Daily, # 90 tablet, 3 Refills, 09/30/22 20:06:00 EST, [facility]/pharmacy #[id number], 157, cm, 09/15/22 11:19:00 EST, Height, 94.3, kg, 01/19/22 4:25:00 EDT, Dry Weight Start Date: 09/30/22 Status: Ordered nitroglycerin 0.4 mg sublingual tablet 1 tablet = 0.4 mg, Sublingual, Every 5 minutes, PRN as needed for chest pain, not to exceed 3 doses/15 min--if pain persists, seek medical attention, # 100 tablet, 0 Refills, Maintenance, 12/19/22 9:51:00 EDT, Tablet, [facility]/pharmacy #[id number], Partial fill... Start Date: 12/19/22 Status: Ordered oxyCODONE 5 mg oral tablet 5 mg, 1, tablet, By Mouth, 2 times a day, PRN, # 56 tablet, Refills 0, Tot. Refills 0, Acute 06/28/24 12:36:00 EST, as needed for pain, 06/28/23 12:35:00 EST, [facility] [...] Refills, Maintenance, 01/22/23 9:08:00 EDT, [facility], 157, cm, 12/28/22 14:14:00 EDT, Height, 94.3, kg, 01/19/22 4:25:00 EDT, Dry Weight Start Date: 01/22/23 Status: Ordered spironolactone 25 mg oral tablet 25 mg, 1, tablet, By Mouth, Daily, # 90 tablet, Refills 3, Tot. Refills 3, Maintenance, 10/09/22 15:42:00 EDT, Route to Pharmacy Electronically, [facility]/pharmacy #[id number], Partial fill upon patient request if the [...] Results Authored Date: Radiology * Event Display: MRI Spine, Non- BH Authored Date: * Event Display: Ultrasound Lower Extremity, Non-BH Authored Date: Patient Care team information Care Team Personnel Name: Estrellita Putnam RN Position: [facility] RN Member Role: Primary Care Nurse Name: Marlen Kenny RN Position: [facility] RN Member Role: Primary Care Nurse Name: Toshia Muhammad RN Position: [facility] RN Supv Member Role: Primary Care Nurse Name: Suleman Jones RN Position: [facility] RN Member Role: Primary Care Nurse Name: Kathy Medina RN Position: [facility] RN Member Role: Primary Care Nurse Name: Marguerite Wang RN Position: [facility] RN Member Role: Primary Care Nurse Name: Mick Tatum MD Position: [facility] Physician - Primary Care Member Role: PCP Address: Address: [address] [place] [address]- Name: Svitlana Clark RN Position: [facility] RN Member Role: Primary Care Nurse Name: Yoana Guevara RN Position: [facility] RN Member Role: Primary Care Nurse Name: Pierre Groves RN Position: [facility] RN Member Role: Primary Care Nurse Name: Carmen Murphy NP Position: [facility] PCO Associate Professional Member Role: Primary Care Nurse Address: Address: [address] [place] [address]- Name: Rylie Ordonez RN Position: [facility] AMB Nurse Member Role: Primary Care Nurse Name: Marisa Ngerete RN Position: [facility] SN RN Member Role: Primary Care Nurse Name: Aditi Brown RN Position: [facility] RN Member Role: Primary Care Nurse Name: Chana Cazares RN Position: [facility] RN Member Role: Primary Care Nurse Name: Toshia Urbina RN Position: [facility] RN Member Role: Primary Care Nurse Name: Isabel Gray Position: [facility] Screwmaker Automatic Member Role: L D Rn Name: Aniyah Sloan RN Position: [facility] SN RN Member Role: Primary Care Nurse Name: Rosemary Ramon RN Position: [facility] OB RN Member Role: Primary Care Nurse Name: Sneha Newton RN Position: [facility] Hospital Slag Motor Operator Member Role: Primary Care Nurse Care Team Related Persons Name: CLAUDIA URBINA Address: home [address] [place], [place] Name: PRINCESSRALPH Address: [address] [place], [place] Name: DONY CARCAMO Address: home [address] [place], [place]
--- OUTSIDE RECORDS SUMMARY | 2024-02-08 01:08 | XMS_ITS | Continuity of Care Document ---
Author Organization [facility] Address [address] [place], [place] [address]phylicia [address], [address] [place] [address]- Care Team Providers Care International Flight Attendant Name Role Phone Rc CORDERO, Mick Clay Primary Care Physician En[place] [facility] [place] Date(s): 06/11/20 - 07/11/20 [facility] [address] [place] [address] Drive, [address] [place] [address]- Allergies, Adverse Reactions, Alerts Substance Reaction Severity [...] 3Location History: DR LOAIZA 4Location History: DR FADIA Medications amLODIPine 5 mg oral tablet 5 mg, 1, tablet, By Mouth, Daily, # 90 tablet, Refills 3, Tot. Refills 3, Maintenance, 03/30/20 8:48:00 EDT, Route to Pharmacy Electronically, [facility]/pharmacy #[id number], 157, cm, 03/11/20 12:49:00 [...] Refills, Maintenance, 10/07/19 10:56:00 EDT, Gel, [facility]/pharmacy #[id number], 160, cm, 08/19/19 8:02:00 EST, Height Start Date: 10/07/19 Status: Ordered Eliquis 5 mg oral tablet 1 tablet, By Mouth, 2 times a day, # 180 tablet, Refills 3 Tot. Refills 3, [facility]/pharmacy #[id number] Start Date: 06/17/19 Status: Ordered gabapentin 400 mg oral capsule 400 mg, 1, capsule, By Mouth, 3 times a day, # 270 capsule, Refills 2, Tot. Refills 2, Maintenance,03/30/20 8:48:00 EDT, Route to Pharmacy Electronically, [facility]/pharmacy #[id number], 157, cm, 03/11/20 12:49:00 EDT, Height, 91, kg, 02/28/20 22:14:00 EDT, Dry... Start Date: 03/30/20 Stop Date: 12/25/20 Status: Ordered HYDROmorphone 2 mg oral tablet 1 tablet = 2 mg, By Mouth, Every 8 hours, PRN as needed for pain, # 20 tablet, 0 Refills, Maintenance, 05/07/20 13:21:00 EDT, Tablet, [facility]/pharmacy #[id number], Partial fill upon patient [...]
--- OUTSIDE RECORDS SUMMARY | 2024-02-08 01:08 | XMS_ITS | Continuity of Care Document ---
Author Organization [facility] Address [address] [place] [address]- Care Team Providers Care Academic Department Chair Name Role Phone Rc CORDERO, Mick Clay Primary Care Physician [place] [facility] [place](s): 12/06/20 - 01/05/21 [facility] [address] [place] [id number] Attending Physician: Julia Haile Admitting Physician: AdmtrJulia [...] EDT, Route to Pharmacy Electronically, [facility]/pharmacy #[id number], 157, cm, 03/11/20 12:49:00 EDT, Height, 91, kg, 02/28/20 22:14:00 EDT, Dry Weight Start Date: 03/30/20 Stop Date: 03/25/21 Status: Ordered aspirin 81 mg oral delayed release tablet 81 mg, 1, tablet, By Mouth, Daily, # 30 tablet, Refills 0, Tot. Refills 0, Maintenance, 09/20/20 14:38:00 EST, Route to Pharmacy Electronically, [facility]/pharmacy #[id number], Partial fill upon patient request if the prescription is for a schedule II opioid drug... Start Date: 09/20/20 Status: Ordered budesonide 3 mg oral delayed release capsule 1 capsule = 3 mg, By Mouth, Daily in AM, # 30 capsule, 5 Refills, Acute 02/27/21 10:03:00 EDT, 11/25/20 10:36:00 EDT, [facility]/pharmacy #[id number], Partial fill upon patient [...] Maintenance, 10/07/19 10:56:00 EDT, Gel, [facility]/pharmacy #[id number], 160, cm, 08/19/19 8:02:00 EST, Height Start Date: 10/07/19 Status: Ordered Eliquis 5 mg oral tablet 1 tablet, By Mouth, 2 times a day, # 180 tablet, 3 Refills, Maintenance, 07/12/20 14:12:00 EST, [facility], 157, cm, 05/07/20 11:34:00 EDT, Height, 91, [...] Maintenance, 08/30/20 10:02:00 EST, Tablet, [facility]/pharmacy #[id number], Partial fill upon patient request, 157, cm, 08/30/20 7:27:00 EST, Height, 91, kg, 02/28/20 22:... Start Date: 08/30/20 Status: Ordered metoprolol 25 mg oral tablet, extended release 25 mg, 1, tablet, By Mouth, Daily, # 30 tablet, Refills 5, Tot. Refills 5, Maintenance, 12/06/20 13:03:00 EDT, Route to Pharmacy Electronically, [facility]/pharmacy #[id number], Partial fill upon patient request if the prescription is for a schedule II opioid drug... Start Date: 12/06/20 Stop Date: 06/04/21 Status: Ordered predniSONE 5 mg oral tablet See Instructions, Take 8 pills (40 mg) a day for five days then decrease by one pill every 5 days.,# 180 tablet, 0 Refills, Maintenance, 11/25/20 12:14:00 EDT, Tablet, [facility]/pharmacy #[id number], Partial fill upon patient [...] Refills,Soft Stop, 10/21/20 16:26:00 EDT, [facility]/pharmacy #[id number], Partial fill upon patient [...]
--- OUTSIDE RECORDS SUMMARY | 2024-02-08 01:08 | XMS_ITS | Continuity of Care Document ---
Author Organization [facility] Gopi Jose lt Address [address] [place] [address]- Care Team Providers Care Funeral Sales Manager Name Role Phone Rc CORDERO, Mick Clay Primary Care Physician [phone] [place] [facility] [place](s): 07/19/21 - 08/18/21 [facility] [place] [facility] [address] [place] [address]- Allergies, Adverse Reactions, Alerts Substance Reaction Severity [...] 07/09/21 10:04:00 EST, Route to Pharmacy Electronically, [facility]/pharmacy #[id number], Partial fill upon patient request if the prescription is for a schedule II opioid .. Start Date: 07/09/21 Stop Date: 07/04/22 Status: Ordered Cosopt 2.23%-0.68% ophthalmic solution 1 drops, Eyes, Both, 2 times a day, # 10 mL, 0 Refills, Maintenance, 03/23/21 9:41:00 EDT, Solution, [facility]/pharmacy #[id number], Partial fill upon patient request if the prescription is for a schedule II opioid drug., 1 drops Eyes, Both 2 times a day, 159, cm... Start Date: 03/23/21 Status: Ordered [facility] ASPIRIN EC 81 MG TABLET [facility] ASPIRIN EC 81 MG TABLET, 1, tablet, By Mouth, Daily, # 30 tablet, 0 Refills, 158, cm, 04/14/21 11:28:00 EDT, Height, 98.6, kg, 04/11/21 15:59:00 EDT, Dry Weight Start Date: 04/22/21 Status: Ordered diclofenac 1% topical gel 1 application, Topically, 4 times a day, # 100 Gm, 5 Refills, Maintenance, 10/07/19 10:56:00 EDT, Gel, [facility]/pharmacy #[id number], 160, cm, 08/19/19 8:02:00 EST, Height Start Date: 10/07/19 Status: Ordered Eliquis 5 mg oral tablet 1 tablet, By Mouth, 2 times a day, # 180 tablet, 3 Refills, [facility], 158, cm, 06/09/21 10:14:00 EST, Height, 98.6, kg, 04/11/21 15:59:00 EDT, Dry Weight Start Date: 06/17/21 Status: Ordered empagliflozin 10 mg oral tablet 1 tablet = 10 mg, By Mouth, Daily in AM, # 90 tablet, 3 Refills, Maintenance, 06/09/21 12:06:00 EST, Tablet, [facility]/pharmacy #[id number], Partial fill upon [...] 07/31/21 10:21:00 EST, Route to Pharmacy Electronically, [facility]/pharmacy #[id number], 159, cm, 07/25/21 11:20:00 EST, Height, 98, kg, 07/06/21 19:57:00 EST, Dry Weight Start Date: 07/31/21 Status: Ordered isosorbide mononitrate 30 mg oral tablet, extended release 1 tablet, By Mouth, Daily, for 90 days, # 90 tablet, 3 Refills, Physician Stop 04/20/22 16:32:00 EDT, 04/25/21 16:32:00 EDT, [facility]/pharmacy #[id number], 158, cm, 04/25/21 14:49:00 EDT, Height, 98.6, kg, 04/11/21 15:59:00 EDT, Dry Weight Start Date: 04/25/21 Stop Date: 04/20/22 Status: Ordered latanoprost 0.005% ophthalmic solution See Instructions, INSTILL 1 DROP IN BOTH EYES DAILY BEFORE DINNER, # 2.5 mL, 0 Refills, [id number], 18, INSTILL 1 DROP IN BOTH EYES DAILY BEFORE DINNER, 158, cm, 04/14/21 11:28:00 EDT, Height, 98.6, kg, 04/11/21 15:59:00 EDT, Dry Weight Start Date: 04/14/21 Status: Ordered Lipitor 40 mg oral tablet 1 tablet = 40 mg, By Mouth, Daily, # 30 tablet, 5 Refills, Maintenance, 04/28/21 6:50:00 EDT, Tablet, [facility]/pharmacy #[id number], Partial fill upon [...] 12/06/20 13:03:00 EDT, Route to Pharmacy Electronically, [facility]/pharmacy #[id number], Partial fill upon [...] 0 Refills, Maintenance, 03/15/21 12:38:00 EDT, Tablet, [facility]/pharmacy #[id number], Partial fill... Start [...] 05/14/21 12:51:00 EDT, Route to Pharmacy Electronically, [facility]/pharmacy #[id number], Partial fill upon [...]
--- OUTSIDE RECORDS SUMMARY | 2024-02-08 01:08 | XMS_ITS | Continuity of Care Document ---
Author Organization [facility] Address [address] [place] [address]- Care Team Providers Care Staff Forester Name Role Phone Mick Tatum MD Primary Care Physician [phone] Encounter [facility] [place] Date(s): 10/03/23 - 11/02/23 [facility] [address] [place] [address]- [place] Allergies, Adverse Reactions, Alerts Substance Reaction [...] (Td) 5 07/23/96 Recorde d 1Result Comment: [id number] 2Location History: DR LOAIZA 3Location History: DR LOAIZA 4Location History: DR LOAIZA 5Location History: DR LOAIZA Medications atorvastatin 40 mg oral tablet 1 tablet, By Mouth, Daily at bedtime, # 90 tablet, 1 Refills, Maintenance, 10/30/23 9:30:00 EDT, [facility], 157, cm, 10/26/23 13:58:00 EDT, Height, 94.3, [...] Gm, 1 Refills, Maintenance, 06/29/23 16:21:00 EST, [facility]/pharmacy #[id number], Partial safia... Start Date: 06/29/23 Status: Ordered duloxetine 20 mg oral enteric coated capsule 1 capsule, By Mouth, Daily at bedtime, # 90 capsule, 3 Refills, Maintenance, 09/26/23 5:28:00 EST, [facility], 157, cm, 09/18/23 11:23:00 EST, Height, 94.3, kg, 01/19/22 4:25:00 EDT, Dry Weight Start Date: 09/26/23 Status: Ordered Eliquis 5 mg oral tablet 1 tablet, By Mouth, 2 times a day, # 180 tablet, 3 Refills, Maintenance, 06/15/23 1:44:00 EST, [facility], 157, cm, 05/31/23 6:38:00 EST, Height, 94.3, kg, 01/19/22 4:25:00 EDT, Dry Weight Start Date: 06/15/23 Status: Ordered isosorbide mononitrate 60 mg oral tablet, extended release 1 tablet, By Mouth, 2 times a day, # 180 tablet, 3 Refills, Maintenance, 06/13/23 8:27:00 EST, [facility], 157, cm, 05/31/23 6:38:00 EST, Height, 94.3, kg, 01/19/22 4:25:00 EDT, Dry Weight Start Date: 06/13/23 Status: Ordered Jardiance 10 mg oral tablet 1 tablet, By Mouth, Daily in AM, # 90 tablet, 3 Refills, Maintenance, 06/04/23 8:09:00 EST, [facility] [address], 157, cm, 05/31/23 6:38:00 EST, Height, 94.3, kg, 01/19/22 4:25:00 EDT, Dry Weight Start Date: 06/04/23 Stop Date: 09/02/23 Status: Ordered Metoprolol Succinate ER 25 mg oral tablet, extended release 1 tablet, By Mouth, Daily, # 30 tablet, 0 Refills, Maintenance, 10/15/23 7:41:00 EDT, [facility], 157, cm, 09/18/23 11:23:00 EST, Height, 94.3, kg, 01/19/22 4:25:00 EDT, Dry Weight Start Date: 10/15/23 Status: Ordered nitroglycerin 0.4 mg sublingual tablet 1 tablet = 0.4 mg, Sublingual, Every 5 minutes, PRN as needed for chest pain, not to exceed 3 doses/15 min--if pain persists, seek medical attention, # 100 tablet, 0 Refills, Maintenance, 12/19/22 9:51:00 EDT, Tablet, [facility]/pharmacy #[id number], Partial fill... Start Date: 12/19/22 Status: Ordered oxyCODONE 5 mg oral tablet 5 mg, 1, tablet, By Mouth, 2 times a day, PRN, # 56 tablet, Refills 0, Tot. Refills 0, Acute 06/28/24 12:36:00 EST, as needed for pain, 06/28/23 12:35:00 EST, Route to Pharmacy Electronically, [facility]/pharmacy #[id number], Partial fill upon patient request if t... Start Date: 06/28/23 Stop Date: 06/28/24 Status: Ordered oxyCODONE 5 mg oral tablet 5 mg, 1, tablet, By Mouth, 2 times a day, PRN, # 56 tablet, Refills 0, Tot. Refills 0, Acute 11/23/23 14:30:00 EDT, Pain , Moderate, 10/26/23 14:24:00 EDT, Route to Pharmacy Electronically, [facility]/pharmacy #[id number], Partial fill upon patient request if the... Start Date: 10/26/23 Stop Date: 11/23/23 Status: Ordered pantoprazole 40 mg oral delayed release tablet 0 Refills, Maintenance, 03/21/23 14:39:00 EDT Start Date: 03/21/23 Status: Ordered rOPINIRole 0.5 mg oral tablet 1 tablet, By Mouth, 4 times a day, # 360 tablet, 1 Refills, Maintenance, 09/17/23 7:52:00 EST, [facility], 157, cm, 08/14/23 10:05:00 EST, Height, 94.3, kg, 01/19/22 4:25:00 EDT, Dry Weight Start Date: 09/17/23 Status: Ordered spironolactone 25 mg oral tablet 25 mg, 1, tablet, By Mouth, 2 times a day, # 180 tablet, Refills 3, Tot. Refills 3, Maintenance, 08/27/23 12:45:00 EST, Route to Pharmacy Electronically, [facility]/pharmacy #[id number], Partial fill upon patientrequest if the prescription is for a schedule II op... Start Date: 08/27/23 Stop Date: 08/21/24 Status: Ordered torsemide 20 mg oral tablet 2 tablet, By Mouth, Daily, # 180 tablet, 3 Refills, Maintenance, 08/13/23 9:50:00 EST, [facility], 157, cm, 06/27/23 16:10:00 EST, Height, 94.3, [...] Team Personnel Name: Estrellita Putnam RN Position: [facility] RN Member Role: Primary Care Nurse Name: Marlen Kenny RN Position: [facility] RN Member Role: Primary Care Nurse Name: Toshia Muhammad RN Position: [facility] RN Supv Member Role: Primary Care Nurse Name: Suleman Jones RN Position: [facility] RN Member Role: Primary Care Nurse Name: Kathy Medina RN Position: [facility] RN Member Role: Primary Care Nurse Name: Marguerite Wang RN Position: [facility] RN Member Role: Primary Care Nurse Name: Mick Tatum MD Position: [facility] Physician - Primary Care Member Role: PCP Address: Address: [address] [place] [phone]- [place] Name: Svitlana Clark RN Position: [facility] RN Member Role: Primary Care Nurse Name: Yoana Guevara RN Position: [facility] RN Member Role: Primary Care Nurse Name: Pierre Groves RN Position: [facility] RN Member Role: Primary Care Nurse Name: Carmen Murphy NP Position: [facility] PCO Associate Professional Member Role: Primary Care Nurse Address: Address: [address] [place] [address]- [place] Name: Rylie Ordonez RN Position: [facility] RN Member Role: Primary Care Nurse Name: Marisa Negrete RN Position: [facility] SN RN Member Role: Primary Care Nurse Name: Aditi Brown RN Position: [facility] Onco RN Member Role: Primary Care Nurse Name: Chana Cazares RN Position: [facility] RN Member Role: Primary Care Nurse Name: Toshia Urbina RN Position: [facility] RN Member Role: Primary Care Nurse Name: Isabel Gray Position: [facility] [place] [employer] Member Role: Sales Agent [employer] Name: Aniyah Sloan RN Position: [facility] SN RN Member Role: Primary Care Nurse Name: Rosemary Ramon RN Position: [facility] OB RN Member Role: Primary Care Nurse Name: Sneha Newton RN Position: [facility] Advertising Operations Manager Member Role: Primary Care Nurse Care Team Related Persons Name: CLAUDIA URBINA Address: [address] [place] [address] Name: RALPH SÁNCHEZ Address: [address] [place] [address] Name: DONY CARCAMO Address: home [address] [place] [address]
--- OUTSIDE RECORDS SUMMARY | 2024-02-08 01:08 | XMS_ITS | Continuity of Care Document ---
Author Organization [facility] Address [address] [place] [id number]- Care Team Providers Care Freight Car Inspector Name Role Phone Ignacio Parish MD Primary Care Physician [place] [facility] [place] Date(s): 03/08/20 - 04/07/[address] [address]- [facility] Attending Physician: Not on Staff, Attending MD Admitting Physician: Not on Staff, Admitting MD Referring Physician: Not on Staff, Referring [...] 8:48:00 EDT, [id number], cm, 03/11/20 12:49:00 EDT, Height, 91, kg, 02/28/20 22:14:00 EDT, Dry Weight Start Date: 03/30/20 Stop Date: 03/25/21 Status: Ordered Cosopt ophthalmic solution 1 drops, Eyes, Both, 2 times a day, 0 Refills Start Date: 02/09/09 Status: Ordered diclofenac 1% topical gel 1 application, Topically, 4 times a day, # 100 Gm, 5 Refills, Maintenance, 10/07/19 10:56:00 EDT, Gel[id number], cm, 08/19/19 8:02:00 EST, Height [...] 03/10/20 10:49:00 EDT, [id number], cm, 03/10/20 8:47:00 EDT, Height, 91, kg, 02/28/20 22:14:00 EDT, Dry W... Start Date: 03/10/20 Status: Ordered Eliquis 5 mg oral tablet 1 tablet, By Mouth, 2 times a day, # 180 tablet, Refills 3 Tot. Refills 3, [facility]/pharmacy #[id number] Start Date: 06/17/19 Status: Ordered gabapentin 400 mg oral capsule 400 mg, 1, capsule, By Mouth, 3 times a day, # 21 capsule, Refills 0, Tot. Refills 0, Maintenance, 03/10/20 10:48:00 EDT, [id number], cm, 03/10/20 8:47:00 EDT, Height, 91, kg, 02/28/20 22:14:00 EDT, Dry W... Start Date: 03/10/20 Stop Date: 03/17/20 Status: Ordered gabapentin 400 mg oral capsule 400 mg, 1, capsule, By Mouth, 3 times a day, # 270 capsule, Refills 2, Tot. Refills 2, Maintenance,03/30/20 8:48:00 EDT, [id number], cm, 03/11/20 12:49:00 EDT, Height, 91, kg, 02/28/20 22:14:00 EDT, Dry... Start Date: 03/30/20 Stop Date: 12/25/20 Status: Ordered HYDROmorphone 2 mg oral tablet 1 tablet = 2 mg, By Mouth, Every 6 hours, PRN as needed for pain, # 28 tablet, 0 Refills, Maintenance, 03/11/20 15:06:00 EDT, Tablet, [id number] fill upon patient request, 157, [...] 03/10/20 10:51:00 EDT, [id number], cm, 03/10/20 8:47:00 EDT, [...]
--- OUTSIDE RECORDS SUMMARY | 2024-02-08 01:08 | XMS_ITS | Continuity of Care Document ---
Author Organization [facility] Gopi Jose lt Address [address] [place] [address]- Care Team Providers Care Mail List Processor Name Role Phone Mick Tatum MD Primary Care Physician [phone] Encounter [facility] Date(s): 12/15/22 - 01/14/23 [facility] [place] Adult [address] [place] [address]- Allergies, Adverse Reactions, Alerts Substance Reaction Severity [...] Given Parent Or Guardian Refuses 1Result Comment: [id number] 2Location History: DR LOAIZA 3Location History: DR LOAIZA 4Location History: DR LOAIZA 5Location History: DR LOAIZA Medications atorvastatin 40 mg oral tablet 1 tablet, By Mouth, Daily at bedtime, # 90 tablet, 3 Refills, Maintenance, 05/13/22 7:24:00 EDT, [facility], 157, cm, 05/12/22 13:47:00 EDT, Height, 94.3, kg, 01/19/22 4:25:00 EDT, Dry Weight Start Date: 05/13/22 Status: Ordered budesonide 3 mg oral delayed release capsule 1 capsule = 3 mg, By Mouth, Daily in AM, # 90 capsule, 2 Refills, Acute 01/18/23 6:58:00 EDT, 01/18/22 6:58:00 EDT, CR Capsule, [facility]/pharmacy #[id number], Partial fill upon patient request if the prescription is for a schedule II opioid drug., 159, cm, 12/21... Start Date: 01/18/22 Stop Date: 01/18/23 Status: Ordered Eliquis 5 mg oral tablet 1 tablet, By Mouth, 2 times a day, # 180 tablet, 3 Refills, Maintenance, 05/27/22 16:57:00 EDT, [facility], 157, cm, 05/12/22 13:47:00 EDT, Height, 94.3, kg, 01/19/22 4:25:00 EDT, Dry Weight Start Date: 05/27/22 Status: Ordered isosorbide mononitrate 60 mg oral tablet, extended release 60 mg, 1, tablet, By Mouth, 2 times a day, # 180 tablet, Refills 3, Tot. Refills 3, Maintenance, 07/10/22 16:07:00 EST, Route to Pharmacy Electronically, [facility]/pharmacy #[id number], Partial fill upon patientrequest if the prescription is for a schedule II op... Start Date: 07/10/22 Status: Ordered Metoprolol Succinate ER 25 mg oral tablet, extended release 1 tablet, By Mouth, Daily, # 90 tablet, 3 Refills, 09/30/22 20:06:00 EST, [facility]/pharmacy #[id number], 157, cm, 09/15/22 11:19:00 EST, Height, 94.3, kg, 01/19/22 4:25:00 EDT, Dry Weight Start Date: 09/30/22 Status: Ordered nitroglycerin 0.4 mg sublingual tablet 1 tablet = 0.4 mg, Sublingual, Every 5 minutes, PRN as needed for chest pain, not to exceed 3 doses/15 min--if pain persists, seek medical attention, # 100 tablet, 0 Refills, Maintenance, 12/19/22 9:51:00 EDT, Tablet, [facility]/pharmacy #[id number], Partial fill... Start Date: 12/19/22 Status: Ordered rOPINIRole 0.5 mg oral tablet 1 tablet, By Mouth, 4 times a day, # 360 tablet, 1 Refills, Maintenance, 07/25/22 9:33:00 EST, [facility], 157, cm, 07/10/22 15:50:00 EST, Height, 94.3, kg, 01/19/22 4:25:00 EDT, Dry Weight Start Date: 07/25/22 Status: Ordered spironolactone 25 mg oral tablet 25 mg, 1, tablet, By Mouth, Daily, # 90 tablet, Refills 3, Tot. Refills 3, Maintenance, 10/09/22 15:42:00 EDT, Route to Pharmacy Electronically, [facility]/pharmacy #[id number], Partial fill upon patient request if the prescription is for a schedule II opioid drug... Start Date: 10/09/22 Stop Date: 10/04/23 Status: Ordered torsemide 20 mg oral tablet 2 tablet = 40 mg, By Mouth, Daily, for 90 days, # 180 tablet, 3 Refills, Physician Stop 07/26/23 8:14:00 EST, 07/31/22 8:14:00 EST, [facility]/pharmacy #[id number], 157, cm, 07/27/22 15:56:00 [...] Team Personnel Name: Lisa Carlson RN Position: [facility] Tatum MD Position: [facility] Physician - Primary Care Member Role: PCP Address: Address: [address] [place] [id number]- Name: Svitlana Clark RN Position: [facility] Ordonez RN Position: [facility] AMB Nurse Member Role: Primary [...] Care Nurse Name: Sneha Newton RN Position: [facility] Ampoule Inspector Member Role: Primary Care Nurse Care Team Related Persons Name: CLAUDIA URBINA Address: home [address] [place], [place] Name: RALPH SÁNCHEZ Address: [address] [place], [place] Name: DONY CARCAMO Address: [address] [place] [address]
--- OUTSIDE RECORDS SUMMARY | 2024-02-08 01:08 | XMS_ITS | Continuity of Care Document ---
Author Organization [facility] Gopi Jose lt Address [address] [place] [phone]- Care Team Providers Care Gas Tender Name Role Phone Rc CORDERO, Mick Clay Primary Care Physician [place] [facility] [place]): [place]08[place]21 [facility] Adult [address] [place] [address]- Encounter Diagnosis Shortness of breath(Discharge Diagnosis) - 04/01/21 Attending Physician: Not on Staff, Attending MD Allergies, Adverse Reactions, Alerts Substance Reaction [...] # 90 tablet, 1 Refills, [facility], 159, cm, 03/23/21 9:06:00 EDT, Height, 100.2, kg, 03/15/21 4:17:00 EDT, Dry Weight Start Date: 03/25/21 Status: Ordered aspirin 81 mg oral delayed release tablet 81 mg, 1, tablet, By Mouth, Daily, # 30 tablet, Refills 0, Tot. Refills 0, Maintenance, 03/15/21 12:35:00 EDT, Route to Pharmacy Electronically, [facility]/pharmacy #[id number], Partial fill upon patient [...] 5 Refills, Maintenance, 10/07/19 10:56:00 EDT, Gel, [facility]/pharmacy #[id number], 160, cm, 08/19/19 8:02:00 EST, Height Start Date: 10/07/19 Status: Ordered Eliquis 5 mg oral tablet 1 tablet, By Mouth, 2 times a day, # 180 tablet, 3 Refills, Maintenance, 07/12/20 14:12:00 EST, [facility], 157, cm, 05/07/20 11:34:00 EDT, Height, 91, kg, 02/28/20 22:14:00 EDT, Dry Weight Start Date: 07/12/20 Status: Ordered furosemide 20 mg oral tablet 1, tablet, By Mouth, Daily, # 30 tablet, Refills 0, Route to Pharmacy Electronically, [facility] 91239, 159, cm, 03/15/21 14:39:00 EDT, Height, 100.2, kg, 03/15/21 4:17:00 EDT, Dry Weight Start Date: 03/21/21 Status: Ordered gabapentin 400 mg oral capsule See Instructions, 2 capsule By Mouth 3 times a day, # 180 capsule, Refills 0, Tot. Refills 0, Maintenance, 03/16/21 10:36:00 EDT, Instructions Replace Required Details, Route to Pharmacy Electronically, [facility]/pharmacy #[id number], Partial fill upon patient re... Start Date: 03/16/21 Status: Ordered isosorbide mononitrate 30 mg oral tablet, extended release 1 tablet = 30 mg, By Mouth, Daily, # 30 tablet, 0 Refills, Maintenance, 03/15/21 12:37:00 EDT, ER Tablet, [facility]/pharmacy #[id number], Partial fill upon patient request if the prescription is for a schedule II opioid drug., 159, cm, 03/15/21 8:14:00 EDT, Heigh... Start Date: 03/15/21 Status: Ordered Lipitor 40 mg oral tablet 1 tablet = 40 mg, By Mouth, Daily at bedtime, # 30 tablet, 0 Refills, Maintenance, 03/15/21 12:37:00 EDT, Tablet, [facility]/pharmacy #[id number], Partial fill upon patient request if the prescription is for a schedule II opioid drug., 159, cm, 03/15/21 8:14:00 ED... Start Date: 03/15/21 Status: Ordered metoprolol 25 mg oral tablet, extended release 25 mg, 1, tablet, By Mouth, Daily, # 30 tablet, Refills 5, Tot. Refills 5, Maintenance, 12/06/20 13:03:00 EDT, [id number] upon patient [...] 0 Refills, Maintenance, 03/15/21 12:38:00 EDT, Tablet, [facility]/pharmacy #[id number], Partial fill... Start Date: [...] Refills, Maintenance, 03/23/21 9:41:00 EDT, Ophth Solution, [facility]/pharmacy #[id number], Partial fill upon patient [...] Dates Health Status Cl inical Service Informant Shortness of breath Discharge Diagnosis 04/01/21 Vital Signs Most recent to oldest [Reference Range]: 1 Height 159 cm (04/01/21 10:04 AM) Oxygen Saturation [94-100 %] 90 % *L* (04/01/21 10:04 AM) Pulse Rate [55-90 bpm] 81 bpm (04/01/21 10:04 AM) Blood Pressure [90-138/55-84 mm Hg] 101/ 60mm Hg (04/01/21 10:04 AM) Temperature [96.8-100.4 DegF] 97.9 DegF (04/01/21 10:04 AM) Blood pressure sites Arm, left (04/01/21 10:04 AM) Temperature Route Oral (04/01/21 10:04 AM) Social History Social History Type Response Smoking Status Never (less than 100 in lifetime) entered on: 06/27/18 Sex
--- OUTSIDE RECORDS SUMMARY | 2024-02-08 01:08 | XMS_ITS | Continuity of Care Document ---
Author Organization [facility] Jose lt Address [address] [place] [id number]- Care Team Providers [employer] Driver Name Role Phone Марина CORDERO, Ignacio New Primary Care Physician [phone] Encounter [facility] Date(s): 02/27/20 - 03/28/20 [facility] Adult [address] [place] [address]- [facility] Allergies, Adverse Reactions, Alerts Substance Reaction [...] 5 Refills, Maintenance, 10/07/19 10:56:00 EDT, Gel, [facility]/pharmacy #[id number], 160, cm, 08/19/19 8:02:00 EST, Height [...] 03/10/20 10:49:00 EDT, Route to Pharmacy Electronically, [facility]/pharmacy #[id number], 157, cm, 03/10/20 8:47:00 EDT, Height, 91, kg, 02/28/20 22:14:00 EDT, Dry W... Start Date: 03/10/20 Status: Ordered Eliquis 5 mg oral tablet 1 tablet, By Mouth, 2 times a day, # 180 tablet, Refills 3 Tot. Refills 3, [facility]/pharmacy #[id number] Start Date: 06/17/19 Status: Ordered gabapentin 400 mg oral capsule 400 mg, 1, capsule, By Mouth, 3 times a day, # 21 capsule, Refills 0, Tot. Refills 0, Maintenance, 03/10/20 10:48:00 EDT, Route to Pharmacy Electronically, [facility]/pharmacy #[id number], 157, cm, 03/10/20 8:47:00 EDT, Height, 91, kg, 02/28/20 22:14:00 EDT, Dry W... Start Date: 03/10/20 Stop Date: 03/17/20 Status: Ordered HYDROmorphone 2 mg oral tablet 1 tablet = 2 mg, By Mouth, Every 6 hours, PRN as needed for pain, # 28 tablet, 0 Refills, Maintenance, 03/11/20 15:06:00 EDT, Tablet, [facility]/pharmacy #[id number], Partial fill upon patient request, 157, [...] 03/10/20 10:49:00 EDT, [id number], cm, 03/10/20 8:47:00 EDT, Height, [...] 03/10/20 10:51:00 EDT, [id number] 157, cm, 03/10/20 8:47:00 EDT, Height, [...]
--- OUTSIDE RECORDS SUMMARY | 2024-02-08 01:08 | XMS_ITS | Continuity of Care Document ---
Author Organization [facility] Jose lt Address [address] [place] [address]- Care Team Providers Care Visual Merchandising Specialist Name Role Phone Mick Tatum MD Primary Care Physician Encounter [facility] Date(s): 05/31/23 - 06/07/23 [facility] Adult [address] [place] [address]- Encounter Diagnosis Ulceration, vulva(Discharge Diagnosis) - 05/31/23 Attending Physician: Not on Staff, Attending MD Referring Physician: Mick Tatum MD Allergies, [...] (Td) 5 07/23/96 Recorde d 1Result Comment: [id number] 2Location History: DR LOAIZA 3Location History: DR LOAIZA 4Location History: DR LOAIZA 5Location History: DR LOAIZA Medications atorvastatin 40 mg oral tablet 1 tablet, By Mouth, Daily at bedtime, # 90 tablet, 1 Refills, Maintenance, 05/04/23 6:30:00 EDT, [id number], 157, cm, 03/21/23 14:39:00 EDT, Height, 94.3, [...] 0 Refills, Soft Stop, 05/31/23 7:14:00 EST, [facility]/pharmacy #[id number], Partial fill upon patient request if the prescription is for a schedule II opioid drug., 157, cm, 05/31/23 6:38:00 EST,... Start Date: 05/31/23 Status: Ordered doxycycline hyclate 100 mg oral capsule 1 capsule = 100 mg, By Mouth, 2 times a day, for 10 days, # 20 capsule, 0 Refills, Acute 06/10/23 7:17:00 EST, 05/31/23 7:17:00 EST, [id number], Partial fill upon patient request if the prescription is for a schedule II opioid drug., 157, cm,... Start Date: 05/31/23 Stop Date: 06/10/23 Status: Ordered Eliquis 5 mg oral tablet 1 tablet, By Mouth, 2 times a day, # 180 tablet, 3 Refills, Maintenance, 05/27/22 16:57:00 EDT, [facility], 157, cm, 05/12/22 13:47:00 EDT, Height, 94.3, kg, 01/19/22 4:25:00 EDT, Dry Weight Start Date: 05/27/22 Status: Ordered isosorbide mononitrate 60 mg oral tablet, extended release 60 mg, 1, tablet, By Mouth, 2 times a day, # 180 tablet, Refills 3, Tot. Refills 3, Maintenance, 07/10/22 16:07:00 EST, Route to Pharmacy Electronically, [facility]/pharmacy #[id number], Partial fill upon patientrequest if the prescription is for a schedule II op... Start Date: 07/10/22 Status: Ordered Jardiance 10 mg oral tablet 1 tablet, By Mouth, Daily in AM, # 90 tablet, 3 Refills, Maintenance, 06/04/23 8:09:00 EST, [facility], 157, cm, 05/31/23 6:38:00 EST, Height, 94.3, kg, 01/19/22 4:25:00 EDT, Dry Weight Start Date: 06/04/23 Stop Date: 09/02/23 Status: Ordered Metoprolol Succinate ER 25 mg oral tablet, extended release 1 tablet, By Mouth, Daily, # 90 tablet, 3 Refills, 09/30/22 20:06:00 EST, [facility]/pharmacy #[id number], 157, cm, 09/15/22 11:19:00 EST, Height, 94.3, kg, 01/19/22 4:25:00 EDT, Dry Weight Start Date: 09/30/22 Status: Ordered nitroglycerin 0.4 mg sublingual tablet 1 tablet = 0.4 mg, Sublingual, Every 5 minutes, PRN as needed for chest pain, not to exceed 3 doses/15 min--if pain persists, seek medical attention, # 100 tablet, 0 Refills, Maintenance, 12/19/22 9:51:00 EDT, Tablet, [facility]/pharmacy #[id number], Partial fill... Start Date: 12/19/22 Status: Ordered pantoprazole 40 mg oral delayed release tablet 0 Refills, Maintenance, 03/21/23 14:39:00 EDT Start Date: 03/21/23 Status: Ordered rOPINIRole 0.5 mg oral tablet 1 tablet, By Mouth, 4 times a day, # 360 tablet, 1 Refills, Maintenance, 01/22/23 9:08:00 EDT, [facility], 157, cm, 12/28/22 14:14:00 EDT, Height, 94.3, kg, 01/19/22 4:25:00 EDT, Dry Weight Start Date: 01/22/23 Status: Ordered spironolactone 25 mg oral tablet 25 mg, 1, tablet, By Mouth, Daily, # 90 tablet, Refills 3, Tot. Refills 3, Maintenance, 10/09/22 15:42:00 EDT, Route to Pharmacy Electronically, [facility]/pharmacy #[id number], Partial fill upon patient request if the prescription is for a schedule II opioid drug... Start Date: 10/09/22 Stop Date: 10/04/23 Status: Ordered torsemide 20 mg oral tablet 2 tablet = 40 mg, By Mouth, Daily, for 90 days, # 180 tablet, 3 Refills, Physician Stop 07/26/23 8:14:00 EST, 07/31/22 8:14:00 EST, [facility]/pharmacy #[id number], 157, cm, 07/27/22 15:56:00 [...] meeting GFR criteria 2RT LEG 3BILATERAL KNEES Diagnosis Diagnosis Type Effective Dates Health Status Cl inical Service Informant Ulceration, vulva Discharge Diagnosis 05/31/23 Vital Signs Most recent to oldest [Reference Range]: 1 Height 157.0 cm (05/31/23 6:38 AM) Oxygen Saturation [94-100 %] 93 % *L* (05/31/23 6:38 AM) Pulse Rate [55-90 bpm] 83 bpm (05/31/23 6:38 AM) Blood Pressure [90-138/55-84 mm Hg] 126/ 77mm Hg (05/31/23 6:38 AM) Blood pressure sites Arm, left (05/31/23 6:38 AM) Weight Obtained Via Standing scale (05/31/23 6:38 AM) Social History Social History Type Response Smoking Status Never (less than 100 in lifetime) entered on: 06/27/18 Sex Note * Yessy Smith: PERFORM, SIGN, VERIFY Event Display: Patient Education/Instruction Authored Date: [id number] [facility] *BMP So [facility] Clinical Summary Name FABIENNE URBINA Age 83 Years 1940 PCP Rc CORDERO, Mick Clay PCP Visit Date 05/31/2023 06:34:00 Additional Instructions: Scheduled Appointments?? Future Appointments ?*[facility]??Neurosrg [address] ?[place],??[place],??[address] ?Phone:??--?Fax:??-- ?Appt. Date:??06/05/2023?3:30 PM ?Scheduled Provider:??Guy CORDERO, Mark ?*BMP??So??[place] ?Phone:??--?Fax:??-- ?Appt. Date:??06/27/2023?4:20 PM ?Scheduled Provider:??Rc CORDERO, Mick Clay Follow-Up Instructions ?? With: Address: When: Bob EMMANUEL, Gill Wright [address] [facility] [place] [address] Diagnosis Ulceration of vulva Medications: Please continue your medications until treatment is completed or stopped by your provider. Discuss any questions related to medications with your provider. New Medications [id number] [address], [place] [id number], [phone] Doxycycline (doxycycline hyclate 100 mg oral capsule) 1 capsule Oral twice a day for 10 Days. Refills: 0. Next Dose: Fluconazole (Diflucan 150 mg oral tablet) 1/2 tablet every 3 days for 12 days. Refills: 0. Next Dose: Medications to Continue with No Changes These medications were not printed or sent to your pharmacy apixaban (Eliquis 5 mg oral tablet) 1 tab(s) Oral twice a day. Refills: 3. Next Dose: Atorvastatin (atorvastatin 40 mg oral tablet) 1 tab(s) Oral Daily at Bedtime. Refills: 1. Next Dose: Budesonide (budesonide 3 mg oral delayed release capsule) Next Dose: empagliflozin (Jardiance 10 mg oral tablet) 1 tab(s) Oral Daily in the morning. Refills: 0. Next Dose: Gabapentin (gabapentin 400 mg oral capsule) 2 capsule Oral 3 times a day. Refills: 5. Next Dose: Isosorbide Mononitrate (isosorbide mononitrate 60 mg oral tablet, extended release) 1 tab(s) Oral twice a day. Refills: 3. Next Dose: Lorazepam (LORazepam 1 mg oral tablet) 1 tablet By Mouth one hour prior to procedure. Refills: 0. Next Dose: Metoprolol (Metoprolol Succinate ER 25 mg oral tablet, extended release) 1 tab(s) Oral Daily. Refills: 3. Next Dose: Nitroglycerin (nitroglycerin 0.4 mg sublingual tablet) 1 tab(s) Sublingual every 5 minutes as needed as needed for chest pain for 3 doses/times. not to exceed 3 doses/15 min--if pain persists, seek medical attention. Refills: 0. Next Dose: Pantoprazole (pantoprazole 40 mg oral delayed release tablet) Next Dose: Ropinirole (rOPINIRole 0.5 mg oral tablet) 1 tab(s) Oral 4 times a day. Refills: 1. Next Dose: Spironolactone (spironolactone 25 mg oral tablet) 1 tab(s) Oral Daily for 90 Days. Refills: 3. Next Dose: torsemide (torsemide 20 mg oral tablet) 2 tab(s) Oral Daily for 90 Days. Refills: 3. Next Dose: Allergy Info:?? Other Environmental Allergy; Other Food Allergy; egg-containing compound; Dust; Contrast Dye; Cats; Benadryl; amoxicillin Medications Given This Visit Future Orders ?No future orders Vital Signs Height 157.0 cm Weight BMI Blood Pressure 126 mm Hg/77 mm Hg Temperature Pulse Rate 83 bpm Respiratory Rate 02 Sat Mode of Delivery 93 %/ You can now view a summary of your hospital visit from the comfort of your home through a free online portal called Trov. Trov is a website that allows you to securely view your medical information including discharge summary, medications and follow-up visits. ??You can alsosend a secure electronic message to your doctor???s office to request appointments, renew medications or just ask a question. You can enroll at [email or web address] or register during your next office visit. Disclaimer:?? The information provided is of a general nature and is intended to be used in conjunction with the recommendations and advice of your health care practitioner. ??Every effort has been made to ensure that the information provided is accurate and complete at the time it is provided to you however, as your needs change, or, as new ??information becomes available, different or additional instructions may be required. If you have questions, please consult with your primary care provider or pharmacist, as appropriate. ??This information is not intended to serve as substitution for assessment and evaluation by a qualified health care provider. If you do not have a primary care provider, you may find a [facility] provider by calling [facility] Gocella Link at [phone]. [facility], in keeping with [facility] guidance, no longer requires face masks for staff, patientsor visitors in most situations. Similar to time spent indoors at other locations, there is the chance that you were exposed to respiratory viruses during your time with us (such as flu or COVID-19).? If you develop symptoms concerning for a viral respiratory infection, please seek testing (and treatment if indicated) from your medical provider or home test kit. For information about the plan of care including goals and instructions for your diagnosis, please see the patient education orders section of this document. Patient Education Materials?? The content of this educational material or handout may have been modified, supplemented, or adapted from its original content and format to support your individualized medical care. Patient Care team information Care Team Personnel Name: Lisa Carlson RN Position: [facility] RN Member Role: Primary Care Nurse Name: Estrellita Putnam RN Position: [facility] RN Member Role: Primary Care Nurse Name: Marlen Kenny RN Position: [facility] RN Member Role: Primary Care Nurse Name: Toshia Muhammad RN Position: [facility] RN Martha Member Role: Primary Care Nurse Name: Suleman Jones RN Position: [facility] RN Member Role: Primary Care Nurse Name: Kathy Medina RN Position: [facility] RN Member Role: Primary Care Nurse Name: Marguerite Wang RN Position: [facility] RN Member Role: Primary Care Nurse Name: Mick Tatum MD Position: [facility] Physician - Primary Care Member Role: PCP Address: Address: [address] [place] [address]- [place] Name: Svitlana Clark RN Position: [facility] RN Member Role: Primary Care Nurse Name: Yoana Guevara RN Position: [facility] RN Member Role: Primary Care Nurse Name: Pierre Groves RN Position: [facility] RN Member Role: Primary Care Nurse Name: Carmen Murphy NP Position: [facility] PCO Associate Professional Member Role: Primary Care Nurse Address: Address: [address] [place] [address]- [place] Name: Rylie Ordonez RN Position: [facility] AMB Nurse Member Role: Primary Care Nurse Name: Marisa Negrete RN Position: [facility] RN Member Role: Primary Care Nurse Name: Aditi Brown RN Position: [facility] RN Member Role: Primary Care Nurse Name: Chana Cazares RN Position: [facility] RN Member Role: Primary Care Nurse Name: Toshia Urbina RN Position: [facility] RN Member Role: Primary Care Nurse Name: Isabel Gray Position: [facility] [place] [employer] Member Role: Flow Manager Name: Aniyah Sloan RN Position: [facility] SN RN Member Role: Primary Care Nurse Name: Rosemary Ramon RN Position: [facility] OB RN Member Role: Primary Care Nurse Name: Sneha Newton RN Position: [facility] Hospital Wind Farm Engineer Member Role: Primary Care Nurse Care Team Related Persons Name: GAUDENCIO URBINAALD Address: [address] [place] [address] Name: MARK RALPH Address: [address] [place] [address] Name: DONY CARCAMO Address: [address] [place] [address]
--- OUTSIDE RECORDS SUMMARY | 2024-02-08 01:08 | XMS_ITS | Continuity of Care Document ---
Author Organization [facility] Jose lt Address [address] [place] [address]- Care Team Providers Care Computing Tutor Name Role Phone Mick Tatum MD Primary Care Physician [place] [facility] [place]03[place]22 [place] 09/02/22 [facility] [address] [place] [address]- Allergies, Adverse Reactions, Alerts Substance Reaction Severity [...] Given Parent Or Guardian Refuses 1Result Comment: [id number] 2Location History: DR LOAIZA 3Location History: DR LOAIZA 4Location History: DR LAOIZA 5Location History: DR LOAIZA Medications atorvastatin 40 mg oral tablet 1 tablet, By Mouth, Daily at bedtime, # 90 tablet, 3 Refills, Maintenance, 05/13/22 7:24:00 EDT, [facility], 157, cm, 05/12/22 13:47:00 EDT, Height, 94.3, [...] 5 Refills, Maintenance, 05/13/22 9:34:00 EDT, Gel, [facility]/pharmacy #[id number], 157, cm, 05/12/22 13:47:00 EDT, Height, 94.3, kg, 01/19/22 4:25:00 EDT, Dry Weight Start Date: 05/13/22 Status: Ordered Eliquis 5 mg oral tablet 1 tablet, By Mouth, 2 times a day, # 180 tablet, 3 Refills, Maintenance, 05/27/22 16:57:00 EDT, [facility], 157, cm, 05/12/22 13:47:00 EDT, Height, 94.3, kg, 01/19/22 4:25:00 EDT, Dry Weight Start Date: 05/27/22 Status: Ordered empagliflozin 10 mg oral tablet 1 tablet = 10 mg, By Mouth, Daily in AM, # 90 tablet, 3 Refills, Maintenance, 06/09/22 12:36:00 EST, Tablet, [facility]/pharmacy #[id number], Partial fill upon patient request if the prescription is for a schedule II opioid drug., 157, cm, 05/12/22 13:47:00 EDT, H... Start Date: 06/09/22 Stop Date: 06/04/23 Status: Ordered gabapentin 400 mg oral capsule 2, capsule, By Mouth, 3 times a day, # 180 capsule, Refills 5, Tot. Refills 5, Maintenance, 08/28/22 15:05:00 EST, Route to Pharmacy Electronically, [facility]/pharmacy #[id number], 157, cm, 07/27/22 15:56:00 EST, Height, 94.3, kg, 01/19/22 4:25:00 EDT, Dry Weight Start Date: 08/28/22 Status: Ordered isosorbide mononitrate 60 mg oral tablet, extended release 60 mg, 1, tablet, By Mouth, 2 times a day, # 180 tablet, Refills 3, Tot. Refills 3, Maintenance, 07/10/22 16:07:00 EST, Route to Pharmacy Electronically, [facility]/pharmacy #[id number], Partial fill upon patientrequest if the prescription is for a schedule II op... Start Date: 07/10/22 Status: Ordered latanoprost 0.005% ophthalmic solution See Instructions, INSTILL 1 DROP IN BOTH EYES DAILY BEFORE DINNER, # 2.5 mL, 0 Refills, [facility], 18, INSTILL 1 DROP IN BOTH EYES DAILY BEFORE DINNER, 158, cm, 04/14/21 11:28:00 EDT, Height, 98.6, kg, 04/11/21 15:59:00 EDT, Dry Weight Start Date: 04/14/21 Status: Ordered Metoprolol Succinate ER 25 mg oral tablet, extended release 1 tablet, By Mouth, Daily, # 90 tablet, 2 Refills, [facility], 159, cm, 12/21/21 15:41:00 EDT,Height, 93.6, kg, 01/06/22 9:12:00 EDT, Dry Weight Start Date: 01/16/22 Status: Ordered nitroglycerin 0.4 mg sublingual tablet 1 tablet = 0.4 mg, Sublingual, Every 5 minutes, PRN as needed for chest pain, not to exceed 3 doses/15 min--if pain persists, seek medical attention, # 100 tablet, 0 Refills, Maintenance, 03/15/21 12:38:00 EDT, Tablet, [facility]/pharmacy #[id number], Partial fill... Start Date: 03/15/21 Status: Ordered rOPINIRole 0.5 mg oral tablet 1 tablet, By Mouth, 4 times a day, # 360 tablet, 1 Refills, Maintenance, 07/25/22 9:33:00 EST, [facility], 157, cm, 07/10/22 15:50:00 EST, Height, 94.3, kg, 01/19/22 4:25:00 EDT, Dry Weight Start Date: 07/25/22 Status: Ordered torsemide 20 mg oral tablet 2 tablet = 40 mg, By Mouth, Daily, for 90 days, # 180 tablet, 3 Refills, Physician Stop 07/26/23 8:14:00 EST, 07/31/22 8:14:00 EST, [facility]/pharmacy #[id number], 157, cm, 07/27/22 15:56:00 EST, Height, 94.3, kg, 01/19/22 4:25:00 EDT, Dry Weight Start Date: 07/31/22 Stop Date: 07/26/23 Status: Ordered torsemide 20 mg oral tablet 2 tablet = 40 mg, By Mouth, Daily, for 90 days, # 180 tablet, 3 Refills, Physician Stop 05/15/23 16:05:00 EDT, 05/20/22 16:05:00 EDT, [facility]/pharmacy #[id number], 157, cm, 05/12/22 13:47:00 EDT, Height, 94.3,kg, 01/19/22 4:25:00 EDT, Dry Weight Start Date: 05/20/22 Stop Date: 05/15/23 Status: Ordered Vitamin B1 100 mg oral tablet 100 mg, 1, tablet, By Mouth, Daily, # 90 tablet, Refills 3, Tot. Refills 3, Acute 05/20/23 16:10:00EDT, 05/20/22 16:10:00 EDT, Route to Pharmacy Electronically, [facility]/pharmacy #[id number], Partial fill uponpatient [...] Care Nurse Name: Estrellita Putnam RN Position: [facility] RN Member Role: Primary Care Nurse Name: Marlen Kenny RN Position: [facility] RN Member Role: Primary Care Nurse Name: Toshia Muhammad RN Position: [facility] RN Martha Member Role: Primary Care Nurse Name: Suleman Jones RN Position: [facility] RN Member Role: Primary Care Nurse Name: Adam RNKathy Position: [facility] RN Member Role: Primary Care Nurse Name: Lesli Mercedes RN Position: [facility] RN Member Role: Primary Care Nurse Name: Marguerite Wang RN Position: [facility] RN Member Role: Primary Care Nurse Name: Ananya Robledo RN Position: [facility] RN Member Role: Primary Care Nurse Name: Mick Tatum MD Position: [facility] Primary Care Physician Member Role: PCP Address: Address: [address] [place] [id number] Name: Svitlana Clark RN Position: [facility] [...] Care Nurse Name: Marisa Negrete RN Position: [facility] RN Member Role: Primary Care Nurse Name: dAiti Brown RN Position: [facility] RN Member [...] Care Nurse Name: Sneha Newton RN Position: [facility] Landfill Grader Member Role: Primary Care Nurse Care Team Related Persons Name: CLAUDIA URBINA Address: home [address] [place], [place] Name: RALPH SÁNCHEZ Address: home [address] [place], [place] Name: DONY CARCAMO Address: home [address] [place], [place]
--- OUTSIDE RECORDS SUMMARY | 2024-02-08 01:08 | XMS_ITS | Continuity of Care Document ---
Author Organization [facility] Jose lt Address [address] [place] [address]- Care Team Providers Care Cutting Machine Tender Decorative Name Role Phone Rc CORDERO, Mick Clay Primary Care Physician [facility] [place] Date(s): 04/21/21 - 05/21/21 [facility] Adult [address] [place] [address]- Allergies, Adverse Reactions, Alerts Substance Reaction Severity [...] 04/27/21 13:28:00 EDT, Route to Pharmacy Electronically, [facility]/pharmacy #[id number], Partial fill upon patient request if the prescription... Start Date: 04/27/21 Stop Date: 10/24/21 Status: Ordered aspirin 81 mg oral delayed release tablet 81 mg, 1, tablet, By Mouth, Daily, # 30 tablet, Refills 5, Tot. Refills 5, Maintenance, 10/24/21 13:28:00 EDT, Route to Pharmacy Electronically, [facility]/pharmacy #[id number], Partial fill upon patient request if the prescription is for a schedule II opioid drug... Start Date: 10/24/21 Stop Date: 04/22/22 Status: Ordered atorvastatin 40 mg oral tablet 1 tablet, By Mouth, Daily at bedtime, for 90 days, # 90 tablet, 3 Refills, Physician Stop 04/20/22 16:32:00 EDT, 04/25/21 16:32:00 EDT, [facility]/pharmacy #[id number], 158, cm, 04/25/21 14:49:00 EDT, [...] 0 Refills, Maintenance, 03/23/21 9:41:00 EDT, Solution, [facility]/pharmacy #[id number], Partial fill upon patient request if the prescription is for a schedule II opioid drug., 1 drops Eyes, Both 2 times a day, 159, cm... Start Date: 03/23/21 Status: Ordered [facility] ASPIRIN EC 81 MG TABLET [facility] ASPIRIN EC 81 MG TABLET, 1, tablet, By Mouth, Daily, # 30 tablet, 0 Refills, 158, cm, 04/14/21 11:28:00 EDT, Height, 98.6, kg, 04/11/21 15:59:00 EDT, Dry Weight Start Date: 04/22/21 Status: Ordered diclofenac 1% topical gel 1 application, Topically, 4 times a day, # 100 Gm, 5 Refills, Maintenance, 10/07/19 10:56:00 EDT, Gel, [facility]/pharmacy #[id number], 160, cm, 08/19/19 8:02:00 EST, Height Start Date: 10/07/19 Status: Ordered Eliquis 5 mg oral tablet 1 tablet, By Mouth, 2 times a day, # 180 tablet, 3 Refills, Maintenance, 07/12/20 14:12:00 EST, [facility], 157, cm, 05/07/20 11:34:00 EDT, Height, 91, kg, 02/28/20 22:14:00 EDT, Dry Weight Start Date: 07/12/20 Status: Ordered gabapentin 400 mg oral capsule See Instructions, 2 capsule By Mouth 3 times a day, # 180 capsule, Refills 0, Tot. Refills 0, Maintenance, 03/16/21 10:36:00 EDT, Instructions Replace Required Details, Route to Pharmacy Electronically, [facility]/pharmacy #[id number], Partial fill upon patient re... Start Date: 03/16/21 Status: Ordered isosorbide mononitrate 30 mg oral tablet, extended release 1 tablet, By Mouth, Daily, for 90 days, # 90 tablet, 3 Refills, Physician Stop 04/20/22 16:32:00 EDT, 04/25/21 16:32:00 EDT, [facility]/pharmacy #[id number], 158, cm, 04/25/21 14:49:00 EDT, Height, 98.6, kg, 04/11/21 15:59:00 EDT, Dry Weight Start Date: 04/25/21 Stop Date: 04/20/22 Status: Ordered latanoprost 0.005% ophthalmic solution See Instructions, INSTILL 1 DROP IN BOTH EYES DAILY BEFORE DINNER, # 2.5 mL, 0 Refills, [id number], 18, INSTILL 1 DROP IN BOTH EYES DAILY BEFORE DINNER, 158, cm, 04/14/21 11:28:00 EDT, Height, 98.6, kg, 04/11/21 15:59:00 EDT, Dry Weight Start Date: 04/14/21 Status: Ordered Lipitor 40 mg oral tablet 1 tablet = 40 mg, By Mouth, Daily, # 30 tablet, 5 Refills, Maintenance, 04/28/21 6:50:00 EDT, Tablet, [facility]/pharmacy #[id number], Partial fill upon patient [...] 12/06/20 13:03:00 EDT, Route to Pharmacy Electronically, [facility]/pharmacy #[id number], Partial fill upon patient [...] 0 Refills, Maintenance, 03/15/21 12:38:00 EDT, Tablet, [facility]/pharmacy #[id number], Partial fill... Start Date: 03/15/21 [...] 05/14/21 12:51:00 EDT, Route to Pharmacy Electronically, [facility]/pharmacy #[id number], Partial fill upon patient request if the prescription is... Start Date: 05/14/21 Stop Date: 11/10/21 Status: Ordered torsemide 20 mg oral tablet 1 tablet = 20 mg, By Mouth, Daily, # 30 tablet, 5 Refills, Maintenance, 05/10/21 4:19:00 EDT, Tablet, [facility]/pharmacy #[id number], Partial fill upon patient request if the prescription is for a schedule II opioid drug., 158, cm, 04/25/21 14:49:00 EDT, Height,... Start Date: 05/10/21 Status: Ordered Vitamin D2 50,000 intl units (1.25 mg) oral capsule 1 capsule = 50,000 International_Units, By Mouth, Every , # 8 capsule, 0 Refills, Maintenance, 04/14/21 12:50:00 EDT, [facility]/pharmacy #[id number], Partial fill upon patient [...]
--- OUTSIDE RECORDS SUMMARY | 2024-02-08 01:08 | XMS_ITS | Continuity of Care Document ---
Author Organization [facility] Jose lt Address [address] [place] [address]- Care Team Providers Care Pot Fireman Name Role Phone Mick Tatum MD Primary Care Physician [place] [facility] [place]23 [place] 05/27/23 [facility] [place] [address] [place] [address]- Allergies, Adverse Reactions, Alerts Substance Reaction Severity Status amoxicillin 1 Active Contrast Dye Active egg-containing compound 2 Re solved Other Environmental Allergy 3 Active Benadryl Shaking Active Cats Active Dust Active Other Food Allergy 4 [...] toxoids (Td) 5 07/23/96 Augiemin Bingham Comment: [id number] 2Location History: DR LOAIZA 3Location History: DR LOAIZA 4Location History: DR LOAIZA 5Location History: DR LOAIZA Medications atorvastatin 40 mg oral tablet 1 tablet, By Mouth, Daily at bedtime, # 90 tablet, 1 Refills, Maintenance, 05/04/23 6:30:00 EDT, [facility], 157, cm, 03/21/23 14:39:00 EDT, Height, 94.3, kg, 01/19/22 4:25:00 EDT, Dry Weight Start Date: 05/04/23 Status: Ordered budesonide 3 mg oral delayed release capsule 0 Refills, Maintenance, 03/21/23 14:39:00 EDT, Partial fill upon patient request if the prescription is for a schedule II opioid drug. Start Date: 03/21/23 Status: Ordered Eliquis 5 mg oral tablet 1 tablet, By Mouth, 2 times a day, # 180 tablet, 3 Refills, Maintenance, 05/27/22 16:57:00 EDT, [facility], 157, cm, 05/12/22 13:47:00 EDT, Height, 94.3, kg, 01/19/22 4:25:00 EDT, Dry Weight Start Date: 05/27/22 Status: Ordered isosorbide mononitrate 60 mg oral tablet, extended release 60 mg, 1, tablet, By Mouth, 2 times a day, # 180 tablet, Refills 3, Tot. Refills 3, Maintenance, 07/10/22 16:07:00 EST, Route to Pharmacy Electronically, [facility]/pharmacy #[id number], Partial fill upon patientrequest if the prescription is for a schedule II op... Start Date: 07/10/22 Status: Ordered Jardiance 10 mg oral tablet 1 tablet = 10 mg, By Mouth, Daily in AM, # 30 tablet, 0 Refills, Maintenance, 03/21/23 15:11:00 EDT, Tablet, Partial fill upon patient request if the prescription is for a schedule II opioid drug. Start Date: 03/21/23 Status: Ordered LORazepam 1 mg oral tablet See Instructions, 1 tablet By Mouth one hour prior to procedure, # 1 tablet, 0 Refills, Acute 06/04/23 11:54:00 EST, 05/04/23 11:53:00 EDT, [facility]/pharmacy #[id number], Partial fill upon patient request if the prescription is for a schedule II opioid drug., 15... Start Date: 05/04/23 Stop Date: 06/04/23 Status: Ordered Metoprolol Succinate ER 25 mg oral tablet, extended release 1 tablet, By Mouth, Daily, # 90 tablet, 3 Refills, 09/30/22 20:06:00 EST, [facility]/pharmacy #[id number], 157, cm, 09/15/22 11:19:00 EST, Height, 94.3, kg, 01/19/22 4:25:00 EDT, Dry Weight Start Date: 09/30/22 Status: Ordered nitroglycerin 0.4 mg sublingual tablet 1 tablet = 0.4 mg, Sublingual, Every 5 minutes, PRN as needed for chest pain, not to exceed 3 doses/15 min--if pain persists, seek medical attention, # 100 tablet, 0 Refills, Maintenance, 12/19/22 9:51:00 EDT, Tablet, [facility]/pharmacy #[id number], Partial fill... Start Date: 12/19/22 Status: Ordered pantoprazole 40 mg oral delayed release tablet 0 Refills, Maintenance, 03/21/23 14:39:00 EDT Start Date: 03/21/23 Status: Ordered rOPINIRole 0.5 mg oral tablet 1 tablet, By Mouth, 4 times a day, # 360 tablet, 1 Refills, Maintenance, 01/22/23 9:08:00 EDT, [facility], 157, cm, 12/28/22 14:14:00 EDT, Height, 94.3, kg, 01/19/22 4:25:00 EDT, Dry Weight Start Date: 01/22/23 Status: Ordered spironolactone 25 mg oral tablet 25 mg, 1, tablet, By Mouth, Daily, # 90 tablet, Refills 3, Tot. Refills 3, Maintenance, 10/09/22 15:42:00 EDT, Route to Pharmacy Electronically, [facility]/pharmacy #[id number], Partial fill upon patient request if [...] Team Personnel Name: Lisa Carlson RN Position: [facility] RN Member Role: Primary Care Nurse Name: Estrellita Putnam RN Position: S RN Member Role: Primary Care Nurse Name: Marlen Kenny RN Position: [facility] RN Member Role: Primary Care Nurse Name: Toshia Muhammad RN Position: [facility] RN Supjulieth Member Role: Primary Care Nurse Name: Suleman Jones RN Position: S RN Member Role: Primary Care Nurse Name: Kathy Medina RN Position: S RN Member Role: Primary Care Nurse Name: Marguerite Wang RN Position: [facility] RN Member Role: Primary Care Nurse Name: Mick Tatum MD Position: [facility] Physician - Primary Care Member Role: PCP Address: Address: [address] [place] [id number]- [place] Name: Svitlana Clark RN Position: [facility] RN Member Role: Primary Care Nurse Name: Yoana Guevara RN Position: [facility] RN Member Role: Primary Care Nurse Name: Pierre Groves RN Position: [facility] RN Member Role: Primary Care Nurse Name: Carmen Murphy NP Position: [facility] PCO Associate Professional Member Role: Primary Care Nurse Address: Address: [address] [place] [address] [place] [address]- [place] Name: Rylie Ordonez RN Position: [facility] AMB Nurse Member Role: Primary Care Nurse Name: Marisa Negrete RN Position: [facility] SN RN Member Role: Primary Care Nurse Name: Aditi Brown RN Position: [facility] RN Member Role: Primary Care Nurse Name: Chana Cazares RN Position: [facility] RN Member Role: Primary Care Nurse Name: Toshia Urbina RN Position: [facility] RN Member Role: Primary Care Nurse Name: Isabel Gray Position: [facility] Director Career Member Role: Prism Inspector Name: Aniyah Sloan RN Position: [facility] SN RN Member Role: Primary Care Nurse Name: Rosemary Ramon RN Position: [facility] OB RN Member Role: Primary Care Nurse Name: Sneha Newton RN Position: [facility] Hospital Finger Lift Operator Member Role: Primary Care Nurse Care Team Related Persons Name: CLAUDIA URBINA Address: home [address], [place] Name: RALPH SÁNCHEZ Address: home [address], [place] Name: DONY CARCAMO Address: home [address], [place]
--- OUTSIDE RECORDS SUMMARY | 2024-02-08 01:08 | XMS_ITS | Continuity of Care Document ---
Author Organization [facility] Address [address] [place] [address]- Care Team Providers Care Poultry Tender Name Role Phone Марина CORDERO, Ignacio New Primary Care Physician [phone] [place] [facility] [place] 08[place]/19 [facility] [address] [place] [address] [facility] Attending Physician: Admshukri, Xavier8 Admitting Physician: Admtr, Julia Referring Physician: Admtr, [...] Refills, Maintenance, 08/02/19 11:53:00 EST, Gel, [facility]/pharmacy #[id number], 160, cm, 07/01/19 10:58:00 EST, Height Start Date: 08/02/19 Status: Ordered Eliquis 5 mg oral tablet 1 tablet, By Mouth, 2 times a day, # 180 tablet, Refills 3 Tot. Refills 3, [id number] Start Date: 06/17/19 Status: Ordered ferrous [...] 03/20/19 12:07:35 EDT, Route to Pharmacy Electronically, [id number], [facility]/pharmacy #[id number] Start Date: 03/20/19 Status: Ordered Lialda [...]
--- OUTSIDE RECORDS SUMMARY | 2024-02-08 01:08 | XMS_ITS | Continuity of Care Document ---
Author Organization [facility] Address [address] [place] [address]- Care Team Providers Care Glass Technician/Installer Name Role Phone Ignacio Parish MD Primary Care Physician [phone] Encounter [facility] [place] Date(s): 03/02/20 - 04/17/20 [facility] [address] [place] [address] [facility] Attending Physician: Meche Villegas MD Admitting Physician: Meche Villegas MD Referring Physician: Ignacio Parish MD Allergies, [...] [id number], cm, 03/11/20 12:49:00 [...] 10:56:00 EDT, Gel, [id number] 160, cm, 08/19/19 8:02:00 EST, Height [...] 03/10/20 10:49:00 EDT, [id number] 157, cm, 03/10/20 8:47:00 EDT, Height, 91, kg, 02/28/20 22:14:00 EDT, Dry W... Start Date: 03/10/20 Status: Ordered Eliquis 5 mg oral tablet 1 tablet, By Mouth, 2 times a day, # 180 tablet, Refills 3 Tot. Refills 3, [id number] Start Date: 06/17/19 Status: Ordered gabapentin 400 mg oral capsule 400 mg, 1, capsule, By Mouth, 3 times a day, # 21 capsule, Refills 0, Tot. Refills 0, Maintenance, 03/10/20 10:48:00 EDT, [id number] 157, cm, 03/10/20 8:47:00 EDT, Height, 91, kg, 02/28/20 22:14:00 EDT, Dry W... Start Date: 03/10/20 Stop Date: 03/17/20 Status: Ordered gabapentin 400 mg oral capsule 400 mg, 1, capsule, By Mouth, 3 times a day, # 270 capsule, Refills 2, Tot. Refills 2, Maintenance,03/30/20 8:48:00 EDT, [id number] 157, cm, 03/11/20 12:49:00 EDT, Height, 91, kg, 02/28/20 22:14:00 EDT, Dry... Start Date: 03/30/20 Stop Date: 12/25/20 Status: Ordered HYDROmorphone 2 mg oral tablet 1 tablet = 2 mg, By Mouth, Every 6 hours, PRN as needed for pain, # 28 tablet, 0 Refills, Maintenance, 03/11/20 15:06:00 EDT, Tablet, [id number] Partial fill upon patient request, [...] 03/10/20 10:51:00 EDT, [id number] 157, cm, 03/10/20 8:47:00 EDT, [...]
--- OUTSIDE RECORDS SUMMARY | 2024-02-08 01:08 | XMS_ITS | Continuity of Care Document ---
Author Organization [facility] Jose lt Address [address] [place] [address]- Care Team Providers Care Produce Manager Name Role Phone Mick Tatum MD Primary Care Physician [phone] [place] [facility] [place]s): 07/21/22 - 08/20/22 [facility] Adult [address] [place] [address]- Allergies, Adverse Reactions, Alerts Substance Reaction Severity Status amoxicillin 1 Active Contrast Dye Active Dust Active egg-containing compound 2 Re solved Other Environmental Allergy 3 Active Other Food Allergy 4 chicken, peppers, onions Resolved Benadryl Shaking Active Cats Active 1Tolerates ceftriaxone 2Pt states [...] Given Parent Or Guardian Refuses 1Result Comment: [id number] 2Location History: DR LOAIZA 3Location History: DR LOAIZA 4Location History: DR LOAIZA 5Location History: DR LOAIZA Medications atorvastatin 40 mg oral tablet 1 tablet, By Mouth, Daily at bedtime, # 90 tablet, 3 Refills, Maintenance, 05/13/22 7:24:00 EDT, [facility], 157, cm, 05/12/22 13:47:00 EDT, Height, 94.3, [...] 6:58:00 EDT, 01/18/22 6:58:00 EDT, CR Capsule, [facility]/pharmacy #[id number], Partial fill upon patient request if the prescription is for a schedule II opioid drug., 159, cm, 12/21... Start Date: 01/18/22 Stop Date: 01/18/23 Status: Ordered clopidogrel 75 mg oral tablet 75 mg, 1, tablet, By Mouth, Daily, # 90 tablet, Refills 3, Tot. Refills 3, Maintenance, 07/10/22 16:07:00 EST, [facility] 5 Refills, Maintenance, 05/13/22 9:34:00 EDT, Gel, [facility]/pharmacy #[id number], 157, cm, 05/12/22 13:47:00 EDT, Height, 94.3, kg, 01/19/22 4:25:00 EDT, Dry Weight Start Date: 05/13/22 Status: Ordered Eliquis 5 mg oral tablet 1 tablet, By Mouth, 2 times a day, # 180 tablet, 3 Refills, Maintenance, 05/27/22 16:57:00 EDT, [facility], 157, cm, 05/12/22 13:47:00 EDT, Height, 94.3, kg, 01/19/22 4:25:00 EDT, Dry Weight Start Date: 05/27/22 Status: Ordered empagliflozin 10 mg oral tablet 1 tablet = 10 mg, By Mouth, Daily in AM, # 90 tablet, 3 Refills, Maintenance, 06/09/22 12:36:00 EST, Tablet, [facility]/pharmacy #[id number], Partial fill upon patient request if the prescription is for a schedule II opioid drug., 157, cm, 05/12/22 13:47:00 EDT, H... Start Date: 06/09/22 Stop Date: 06/04/23 Status: Ordered gabapentin 400 mg oral capsule 2, capsule, By Mouth, 3 times a day, # 180 capsule, Refills 5, Route to Pharmacy Electronically, [id number], 159, cm, 12/21/21 15:41:00 EDT, Height, 93.6, kg, 01/06/22 9:12:00 EDT, Dry Weight Start Date: 01/17/22 Status: Ordered isosorbide mononitrate 60 mg oral tablet, extended release 60 mg, 1, tablet, By Mouth, 2 times a day, # 180 tablet, Refills 3, Tot. Refills 3, Maintenance, 07/10/22 16:07:00 EST, Route to Pharmacy Electronically, [facility]/pharmacy #[id number], Partial fill upon patientrequest if the prescription is for a schedule II op... Start Date: 07/10/22 Status: Ordered latanoprost 0.005% ophthalmic solution See Instructions, INSTILL 1 DROP IN BOTH EYES DAILY BEFORE DINNER, # 2.5 mL, 0 Refills, [facility], 18, INSTILL 1 DROP IN BOTH EYES DAILY BEFORE DINNER, 158, cm, 04/14/21 11:28:00 EDT, Height, 98.6, kg, 04/11/21 15:59:00 EDT, Dry Weight Start Date: 04/14/21 Status: Ordered Metoprolol Succinate ER 25 mg oral tablet, extended release 1 tablet, By Mouth, Daily, # 90 tablet, 2 Refills, [facility], 159, cm, 12/21/21 15:41:00 EDT,Height, 93.6, kg, [...] tablet, 1 Refills, Maintenance, 07/25/22 9:33:00 EST, [facility], 157, cm, 07/10/22 15:50:00 EST, Height, 94.3, [...] 05/20/22 16:10:00 EDT, Route to Pharmacy Electronically, [facility]/pharmacy #[id number], Partial fill uponpatient request if the [...] Team Personnel Name: Mojgan Lopez RN [facility] RN Member Role: Primary Care Nurse Name: Lisa Carlson RN Position: [facility] RN Member Role: Primary Care Nurse Name: Estrellita Putnam RN Position: [facility] RN Member Role: Primary Care Nurse Name: Marlen Kenny RN Position: [facility] RN Member Role: Primary Care Nurse Name: Toshia Muhammad RN Position: [facility] RN Supjulieth Member Role: Primary Care Nurse Name: Suleman Jones RN Position: [facility] RN Member Role: Primary Care Nurse Name: Kathy Medina RN Position: [facility] RN Member Role: Primary Care Nurse Name: Lesli Mercedes RN Position: [facility] RN Member Role: Primary Care Nurse Name: Marguerite Wang RN Position: [facility] RN Member Role: Primary Care Nurse Name: Ananya Robledo RN Position: [facility] RN Member Role: Primary Care Nurse Name: Mick Tatum MD Position: [facility] Primary Care Physician Member Role: PCP Address: Address: [address] [place] [id number] Name: Svitlana Clark RN [facility] RN Member Role: Primary Care Nurse Name: Yoana Guevara RN Position: [facility] RN Member Role: Primary Care Nurse Name: Pierre Groves RN Position: [facility] RN Member Role: Primary Care Nurse Name: Carmen Murphy RN Position: [facility] RN Member Role: Primary Care Nurse Name: Rylie Ordonez RN Position: [facility] PCO RN Member Role: Primary Care Nurse Name: Marisa Negrete RN Position: [facility] RN Member Role: Primary Care Nurse Name: Aditi Brown RN Position: [facility] RN Member Role: Primary Care Nurse Name: Chana Cazares RN Position: [facility] RN Member Role: Primary Care Nurse Name: Toshia Urbina RN Position: [facility] RN Member Role: Primary Care Nurse Name: Aniyah Sloan RN Position: [facility] SN RN Member Role: Primary Care Nurse Name: Rosemary Ramon RN Position: [facility] OB RN Member Role: Primary Care Nurse Name: Sneha Newton RN Position: [facility] Hospital Sales Host Member Role: Primary Care Nurse Care Team Related Persons Name: CARLITOSCLAUDIA OLIVER Address: [address] [place] [address] Name: RALPH SÁNCHEZ Address: [address] [place] [address] Name: DONY CARCAMO Address: [address] [address]
--- OUTSIDE RECORDS SUMMARY | 2024-02-08 01:08 | XMS_ITS | Continuity of Care Document ---
Author Organization [facility] Address [address] [place] [address]- Care Team Providers Care Engineering Agent Name Role Phone Марина CORDERO, Ignacio New Primary Care Physician [place] [facility] [place] [facility] [address] [place] [address] Attending Physician: Glenn Kennedy MD Admitting Physician: Glenn Kennedy MD Referring Physician: Ignacio Parish MD Allergies, [...] 03/30/20 8:48:00 EDT, Route to Pharmacy Electronically, [facility]/pharmacy #[id number], 157, cm, 03/11/20 12:49:00 EDT, Height, 91, kg, 02/28/20 22:14:00 EDT, Dry Weight Start Date: 03/30/20 Stop Date: 03/25/21 Status: Ordered cephalexin monohydrate 500 mg oral capsule 1 capsule = 500 mg, By Mouth, 4 times a day, for 28 days, # 112 capsule, 1 Refills, Acute 06/18/20 11:43:00 EST, 04/23/20 11:43:00 EDT, Capsule, [facility]/pharmacy #[id number], 157, cm, 04/23/20 11:28:00 [...] 180 tablet, Refills 3 Tot. Refills 3, [facility]/pharmacy #[id number] Start Date: 06/17/19 Status: Ordered gabapentin 400 mg oral capsule 400 mg, 1, capsule, By Mouth, 3 times a day, # 270 capsule, Refills 2, Tot. Refills 2, Maintenance,03/30/20 8:48:00 EDT, Route to Pharmacy Electronically, [facility]/pharmacy #[id number], 157, cm, 03/11/20 [...]
--- OUTSIDE RECORDS SUMMARY | 2024-02-08 01:08 | XMS_ITS | Continuity of Care Document ---
Author Organization [facility] Gopi Jose lt Address [address] [place] [address]- Care Team Providers Care Zipper Machine Operator Name Role Phone Mick Tatum MD Primary Care Physician [phone] Encounter [facility] [place](s): 06/30/21 - 09/08/21 [facility] Adult [address] [place] [address]- Attending Physician: Mick Tatum MD Allergies, Adverse [...] 07/09/21 10:04:00 EST, Route to Pharmacy Electronically, [facility]/pharmacy #[id number], Partial fill upon patient request if the prescription is for a schedule II opioid . Start Date: 07/09/21 Stop Date: 07/04/22 Status: Ordered Cosopt 2.23%-0.68% ophthalmic solution 1 drops, Eyes, Both, 2 times a day, # 10 mL, 0 Refills, Maintenance, 03/23/21 9:41:00 EDT, Solution, [facility]/pharmacy #[id number], Partial fill upon patient request if the prescription is for a schedule II opioid drug., 1 drops Eyes, Both 2 times a day, 159, cm... Start Date: 03/23/21 Status: Ordered [facility] ASPIRIN EC 81 MG TABLET [facility] ASPIRIN EC 81 MG TABLET, 1, tablet, By Mouth, Daily, # 30 tablet, 0 Refills, 158, cm, 04/14/21 11:28:00 EDT, Height, 98.6, kg, 04/11/21 15:59:00 EDT, Dry Weight Start Date: 04/22/21 Status: Ordered diclofenac 1% topical gel 1 application, Topically, 4 times a day, # 100 Gm, 5 Refills, Maintenance, 10/07/19 10:56:00 EDT, Gel, [facility]/pharmacy #[id number], 160, cm, 08/19/19 8:02:00 EST, Height Start Date: 10/07/19 Status: Ordered Eliquis 5 mg oral tablet 1 tablet, By Mouth, 2 times a day, # 180 tablet, 3 Refills, [facility] STORE [id number], 158, cm, 06/09/21 10:14:00 EST, Height, 98.6, kg, 04/11/21 15:59:00 EDT, Dry Weight Start Date: 06/17/21 Status: Ordered empagliflozin 10 mg oral tablet 1 tablet = 10 mg, By Mouth, Daily in AM, # 90 tablet, 3 Refills, Maintenance, 06/09/21 12:06:00 EST, Tablet, [facility]/pharmacy #[id number], Partial fill upon patient [...] 07/31/21 10:21:00 EST, Route to Pharmacy Electronically, [facility]/pharmacy #[id number], 159, cm, 07/25/21 11:20:00 EST, Height, 98, kg, 07/06/21 19:57:00 EST, Dry Weight Start Date: 07/31/21 Status: Ordered isosorbide mononitrate 30 mg oral tablet, extended release 1 tablet, By Mouth, Daily, for 90 days, # 90 tablet, 3 Refills, Physician Stop 04/20/22 16:32:00 EDT, 04/25/21 16:32:00 EDT, [facility]/pharmacy #[id number], 158, cm, 04/25/21 14:49:00 EDT, Height, 98.6, kg, 04/11/21 15:59:00 EDT, Dry Weight Start Date: 04/25/21 Stop Date: 04/20/22 Status: Ordered latanoprost 0.005% ophthalmic solution See Instructions, INSTILL 1 DROP IN BOTH EYES DAILY BEFORE DINNER, # 2.5 mL, 0 Refills, [facility] STORE [id number], 18, INSTILL 1 DROP IN BOTH EYES DAILY BEFORE DINNER, 158, cm, 04/14/21 11:28:00 EDT, Height, 98.6, kg, 04/11/21 15:59:00 EDT, Dry Weight Start Date: 04/14/21 Status: Ordered Lipitor 40 mg oral tablet 1 tablet = 40 mg, By Mouth, Daily, # 30 tablet, 5 Refills, Maintenance, 04/28/21 6:50:00 EDT, Tablet, [facility]/pharmacy #[id number], Partial fill upon patient [...] 12/06/20 13:03:00 EDT, Route to Pharmacy Electronically, [facility]/pharmacy #[id number], Partial fill upon patient [...] 0 Refills, Maintenance, 03/15/21 12:38:00 EDT, Tablet, [facility]/pharmacy #[id number], Partial fill... Start Date: [...] 05/14/21 12:51:00 EDT, Route to Pharmacy Electronically, [facility]/pharmacy #[id number], Partial fill upon patient request if the prescription is... Start Date: 05/14/21 Stop Date: 11/10/21 Status: Ordered torsemide 20 mg oral tablet 1 tablet = 20 mg, By Mouth, Daily, # 30 tablet, 5 Refills, Maintenance, 05/10/21 4:19:00 EDT, Tablet, [facility]/pharmacy #[id number], Partial fill upon patient [...]
--- OUTSIDE RECORDS SUMMARY | 2024-02-08 01:08 | XMS_ITS | Continuity of Care Document ---
Author Organization [facility] Address [address] [place] [address]- Care Team Providers Care Club Car Attendant Name Role Phone Mick Tatum MD Primary Care Physician Encounter [facility] [place] Date(s): 10/14/20 - 02/03/21 [facility] [address] [place] [id number] Attending Physician: Sanju Sauer MD Admitting Physician: Sanju Sauer MD Referring Physician: Mick Tatum MD Allergies, [...] 03/30/20 8:48:00 EDT, Route to Pharmacy Electronically, [facility]/pharmacy #[id number], 157, cm, 03/11/20 12:49:00 EDT, Height, 91, kg, 02/28/20 22:14:00 EDT, Dry Weight Start Date: 03/30/20 Stop Date: 03/25/21 Status: Ordered aspirin 81 mg oral delayed release tablet 81 mg, 1, tablet, By Mouth, Daily, # 30 tablet, Refills 0, Tot. Refills 0, Maintenance, 09/20/20 14:38:00 EST, Route to Pharmacy Electronically, [facility]/pharmacy #[id number], Partial fill upon patient request if [...] Acute 02/27/21 10:03:00 EDT, 11/25/20 10:36:00 EDT, [facility]/pharmacy #[id number], Partial fill upon patient request if [...] 5 Refills, Maintenance, 10/07/19 10:56:00 EDT, Gel, [facility]/pharmacy #[id number], 160, cm, 08/19/19 8:02:00 EST, Height Start Date: 10/07/19 Status: Ordered Eliquis 5 mg oral tablet 1 tablet, By Mouth, 2 times a day, # 180 tablet, 3 Refills, Maintenance, 07/12/20 14:12:00 EST, [facility], 157, cm, 05/07/20 11:34:00 EDT, Height, 91, [...] 0 Refills, Maintenance, 08/30/20 10:02:00 EST, Tablet, [facility]/pharmacy #[id number], Partial fill upon patient request, 157, cm, 08/30/20 7:27:00 EST, Height, 91, kg, 02/28/20 22:... Start Date: 08/30/20 Status: Ordered metoprolol 25 mg oral tablet, extended release 25 mg, 1, tablet, By Mouth, Daily, # 30 tablet, Refills 5, Tot. Refills 5, Maintenance, 12/06/20 13:03:00 EDT, Route to Pharmacy Electronically, [facility]/pharmacy #[id number], Partial fill upon patient request if the prescription is for a schedule II opioid drug... Start Date: 12/06/20 Stop Date: 06/04/21 Status: Ordered predniSONE 5 mg oral tablet See Instructions, Take 8 pills (40 mg) a day for five days then decrease by one pill every 5 days.,# 180 tablet, 0 Refills, Maintenance, 11/25/20 12:14:00 EDT, [facility]t, [id number], Partial fill upon [...] tablet, 0 Refills,Soft Stop, 10/21/20 16:26:00 EDT, [facility]/pharmacy #[id number], Partial fill upon patient request if [...]
--- OUTSIDE RECORDS SUMMARY | 2024-02-08 01:09 | XMS_ITS | Continuity of Care Document ---
Author Organization [facility] Jose lt Address [address] [place] [address]- Care Team Providers Care Parts Expediter Name Role Phone Rc CORDERO, Mick Clay Primary Care Physician [phone] [place] [facility] [place]06[place]21 [facility] Adult [address] [place] [address]- Allergies, Adverse Reactions, Alerts Substance Reaction Severity [...] # 90 tablet, 1 Refills, [facility], 159, cm, 03/23/21 9:06:00 EDT, Height, 100.2, kg, 03/15/21 4:17:00 EDT, Dry Weight Start Date: 03/25/21 Status: Ordered aspirin 81 mg oral delayed release tablet 81 mg, 1, tablet, By Mouth, Daily, # 30 tablet, Refills 0, Tot. Refills 0, Maintenance, 03/15/21 12:35:00 EDT, Route to Pharmacy Electronically, [facility]/pharmacy #[id number], Partial fill upon patient [...] Refills, Maintenance, 03/23/21 9:41:00 EDT, Solution, [facility]/pharmacy #[id number], Partial fill upon patient request if the prescription is for a schedule II opioid drug., 1 drops Eyes, Both 2 times a day, 159, cm... Start Date: 03/23/21 Status: Ordered diclofenac 1% topical gel 1 application, Topically, 4 times a day, # 100 Gm, 5 Refills, Maintenance, 10/07/19 10:56:00 EDT, Gel, [facility]/pharmacy #[id number], 160, cm, 08/19/19 8:02:00 EST, Height Start Date: 10/07/19 Status: Ordered Eliquis 5 mg oral tablet 1 tablet, By Mouth, 2 times a day, # 180 tablet, 3 Refills, Maintenance, 07/12/20 14:12:00 EST, [facility], 157, cm, 05/07/20 11:34:00 EDT, Height, 91, kg, 02/28/20 22:14:00 EDT, Dry Weight Start Date: 07/12/20 Status: Ordered furosemide 20 mg oral tablet 1, tablet, By Mouth, Daily, # 30 tablet, Refills 0, Route to Pharmacy Electronically, [facility], 159, cm, 03/15/21 14:39:00 EDT, Height, 100.2, kg, 03/15/21 4:17:00 EDT, Dry Weight Start Date: 03/21/21 Status: Ordered gabapentin 400 mg oral capsule See Instructions, 2 capsule By Mouth 3 times a day, # 180 capsule, Refills 0, Tot. Refills 0, Maintenance, 03/16/21 10:36:00 EDT, Instructions Replace Required Details, Route to Pharmacy Electronically, [facility]/pharmacy #[id number], Partial fill upon patient re... Start Date: 03/16/21 Status: Ordered isosorbide mononitrate 30 mg oral tablet, extended release 1 tablet = 30 mg, By Mouth, Daily, # 30 tablet, 0 Refills, Maintenance, 03/15/21 12:37:00 EDT, ER Tablet, [facility]/pharmacy #[id number], Partial fill upon patient request if the prescription is for a schedule II opioid drug., 159, cm, 03/15/21 8:14:00 EDT, Heigh... Start Date: 03/15/21 Status: Ordered Lasix 20 mg oral tablet 20 mg, 1, tablet, By Mouth, Daily, take in conjunction with 20mg lasix for total of 40mg for 5 days, # 5 tablet, Refills 0, Tot. Refills 0, Maintenance, 04/01/21 10:50:00 EDT, Route to Pharmacy Electronically, [facility]/pharmacy #[id number], Partial fill upon pat... Start Date: 04/01/21 Stop Date: 04/06/21 Status: Ordered Lipitor 40 mg oral tablet 1 tablet = 40 mg, By Mouth, Daily at bedtime, # 30 tablet, 0 Refills, Maintenance, 03/15/21 12:37:00 EDT, Tablet, [id number], Partial fill upon patient request if the prescription is for a schedule II opioid drug., 159, cm, 03/15/21 8:14:00 ED... Start Date: 03/15/21 Status: Ordered metoprolol 25 mg oral tablet, extended release 25 mg, 1, tablet, By Mouth, Daily, # 30 tablet, Refills 5, Tot. Refills 5, Maintenance, 12/06/20 13:03:00 EDT, Route to Pharmacy Electronically, [facility]/pharmacy #[id number], Partial fill upon patient [...] Refills, Maintenance, 03/23/21 9:41:00 EDT, Ophth Solution, [id number], Partial fill upon patient [...]
--- OUTSIDE RECORDS SUMMARY | 2024-02-08 01:09 | XMS_ITS | Continuity of Care Document ---
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 Name Role Phone Mick Tatum MD Primary Care Physician [phone] Encounter [facility] [place](s): 11/27/22 - 12/27/22 [facility] Adult [address] [place] [address]- Allergies, Adverse Reactions, Alerts Substance Reaction Severity [...] Given Parent Or Guardian Refuses 1Result Comment: [id number] 2Location History: DR LOAIZA 3Location History: DR LOAIZA 4Location History: DR LOAIZA 5Location History: DR LOAIZA Medications atorvastatin 40 mg oral tablet 1 tablet, By Mouth, Daily at bedtime, # 90 tablet, 3 Refills, Maintenance, 05/13/22 7:24:00 EDT, [facility], 157, cm, 05/12/22 13:47:00 EDT, Height, 94.3, [...] Maintenance, 05/13/22 9:34:00 EDT, Gel, [facility]/pharmacy #[id number], 157, cm, 05/12/22 13:47:00 EDT, Height, 94.3, kg, 01/19/22 4:25:00 EDT, Dry Weight Start Date: 05/13/22 Status: Ordered Eliquis 5 mg oral tablet 1 tablet, By Mouth, 2 times a day, # 180 tablet, 3 Refills, Maintenance, 05/27/22 16:57:00 EDT, [facility], 157, cm, 05/12/22 13:47:00 EDT, Height, 94.3, kg, 01/19/22 4:25:00 EDT, Dry Weight Start Date: 05/27/22 Status: Ordered empagliflozin 10 mg oral tablet 1 tablet = 10 mg, By Mouth, Daily in AM, # 90 tablet, 3 Refills, Maintenance, 06/09/22 12:36:00 EST, Tablet, [facility]/pharmacy #[id number], Partial fill upon patient request if the prescription is for a schedule II opioid drug., 157, cm, 05/12/22 13:47:00 EDT, H... Start Date: 06/09/22 Stop Date: 06/04/23 Status: Ordered gabapentin 400 mg oral capsule 2, capsule, By Mouth, 3 times a day, # 180 capsule, Refills 5, Tot. Refills 5, Maintenance, 08/28/22 15:05:00 EST, Route to Pharmacy Electronically, [facility]/pharmacy #[id number], 157, cm, 07/27/22 15:56:00 EST, Height, 94.3, kg, 01/19/22 4:25:00 EDT, Dry Weight Start Date: 08/28/22 Status: Ordered isosorbide mononitrate 60 mg oral tablet, extended release 60 mg, 1, tablet, By Mouth, 2 times a day, # 180 tablet, Refills 3, Tot. Refills 3, Maintenance, 07/10/22 16:07:00 EST, Route to Pharmacy Electronically, [facility]/pharmacy #[id number], Partial fill upon patientrequest if the prescription is for a schedule II op... Start Date: 07/10/22 Status: Ordered latanoprost 0.005% ophthalmic solution See Instructions, INSTILL 1 DROP IN BOTH EYES DAILY BEFORE DINNER, # 2.5 mL, 0 Refills, [facility] STORE 52940, 18, INSTILL 1 DROP IN BOTH EYES DAILY BEFORE DINNER, 158, cm, 04/14/21 11:28:00 EDT, Height, 98.6, kg, 04/11/21 15:59:00 EDT, Dry Weight Start Date: 04/14/21 Status: Ordered Metoprolol Succinate ER 25 mg oral tablet, extended release 1 tablet, By Mouth, Daily, # 90 tablet, 3 Refills, 09/30/22 20:06:00 EST, [facility]/pharmacy #[id number], 157, cm, 09/15/22 11:19:00 EST, Height, 94.3, kg, 01/19/22 4:25:00 EDT, Dry Weight Start Date: 09/30/22 Status: Ordered nitroglycerin 0.4 mg sublingual tablet 1 tablet = 0.4 mg, Sublingual, Every 5 minutes, PRN as needed for chest pain, not to exceed 3 doses/15 min--if pain persists, seek medical attention, # 100 tablet, 0 Refills, Maintenance, 12/19/22 9:51:00 EDT, Tablet, [facility]/pharmacy #[id number], Partial fill... Start Date: 12/19/22 Status: Ordered ondansetron 4 mg oral tablet 1 tablet = 4 mg, By Mouth, Every 8 hours, PRN Nausea & Vomiting, # 10 tablet, 2 Refills, Acute 01/30/23 8:27:00 EDT, 11/30/22 8:27:00 EDT, Tablet, [facility]/pharmacy #[id number], Partial fill upon patient request if the prescription is for a schedule II opioid drUriel.. Start Date: 11/30/22 Stop Date: 01/30/23 Status: Ordered rOPINIRole 0.5 mg oral tablet 1 tablet, By Mouth, 4 times a day, # 360 tablet, 1 Refills, Maintenance, 07/25/22 9:33:00 EST, [facility] STORE 02488, 157, cm, 07/10/22 15:50:00 EST, Height, 94.3, kg, 01/19/22 4:25:00 EDT, Dry Weight Start Date: 07/25/22 Status: Ordered spironolactone 25 mg oral tablet 25 mg, 1, tablet, By Mouth, Daily, # 90 tablet, Refills 3, Tot. Refills 3, Maintenance, 10/09/22 15:42:00 EDT, Route to Pharmacy Electronically, [facility]/pharmacy #[id number], Partial fill upon patient [...] EDT, Route to Pharmacy Electronically, [facility]/pharmacy #[id number], Partial fill uponpatient request if the [...] Team Personnel Name: Lisa Carlson RN Position: [facility] RN Member Role: Primary Care Nurse Name: Estrellita Putnam RN Position: [facility] RN Member Role: Primary Care Nurse Name: Marlen Kenny RN Position: [facility] RN Member Role: Primary Care Nurse Name: Toshia Muhammad RN Position: [facility] RN Martha Member Role: Primary Care Nurse Name: Suleman Jones RN Position: [facility] RN Member Role: Primary Care Nurse Name: Kathy Medina RN Position: [facility] RN Member Role: Primary Care Nurse Name: Lesli Mercedes RN Position: [facility] RN Member Role: Primary Care Nurse Name: Mick Tatum MD Position: [facility] Physician - Primary Care Member Role: PCP Address: Address: [address] [place] [id number] Name: Svitlana Clark RN Position: [facility] RN Member Role: Primary Care Nurse Name: Yoana Guevara RN Position: [facility] RN Member Role: Primary Care Nurse Name: Pierre Groves RN Position: [facility] RN Member Role: Primary Care Nurse Name: Carmen Murphy RN Position: [facility] RN Member Role: Primary Care Nurse Name: Rylie Ordonez RN Position: [facility] AMB Nurse Member Role: Primary Care Nurse Name: Aditi Brown RN Position: [facility] RN Member Role: Primary Care Nurse Name: Chana Cazares RN Position: [facility] RN Member Role: Primary Care Nurse Name: Toshia Urbina RN Position: [facility] RN Member Role: Primary Care Nurse Name: Aniyah Sloan RN Position: [facility] SN RN Member Role: Primary Care Nurse Name: Rosemary Ramon RN Position: [facility] OB RN Member Role: Primary Care Nurse Name: Sneha Newton RN Position: [facility] Reinforcing Iron Worker Helper Member Role: Primary Care Nurse Care Team Related Persons Name: CLAUDIA URBINA Address: [address] [place] [address] Name: RALPH SÁNCHEZ Address: [address] [place] [address] Name: DONY CARCAMO Address: [address] [place] [address]
--- OUTSIDE RECORDS SUMMARY | 2024-02-08 01:09 | XMS_ITS | Continuity of Care Document ---
Author Organization [facility] Address [address] [place] [id number]- Care Team Providers Care Recreation Specialist Name Role Phone Mick Tatum MD Primary Care Physician Encounter [facility] [place] Date(s): 10/09/22 - 11/08/22 [facility] [address] [place] [address]- [place] Allergies, Adverse Reactions, Alerts Substance Reaction [...] Given Parent Or Guardian Refuses 1Result Comment: [id number] 2Location History: DR LOAIZA 3Location History: DR LOAIZA 4Location History: DR LOAIZA 5Location History: DR LOAIZA Medications atorvastatin 40 mg oral tablet 1 tablet, By Mouth, Daily at bedtime, # 90 tablet, 3 Refills, Maintenance, 05/13/22 7:24:00 EDT, [facility], 157, cm, 05/12/22 13:47:00 EDT, Height, 94.3, [...] 3 Refills, Maintenance, 05/27/22 16:57:00 EDT, [facility], 157, cm, 05/12/22 13:47:00 EDT, Height, 94.3, [...] Refills, Acute 11/13/2311:15:00 EDT, 10/12/22 12:15:00 EDT, [facility]/pharmacy #[id number], Partial fill upon [...] [id number] Partial fill upon patientrequest if the prescription is for a schedule II op... Start Date: 07/10/22 Status: Ordered latanoprost 0.005% ophthalmic solution See Instructions, INSTILL 1 DROP IN BOTH EYES DAILY BEFORE DINNER, # 2.5 mL, 0 Refills, [facility] STORE 05785, 18, INSTILL 1 DROP IN BOTH EYES [...] 07/25/22 9:33:00 EST, [facility] ST[facility] 12446, 157, cm, 07/10/22 15:50:00 EST, Height, 94.3, [...] Stop 05/15/23 16:05:00 EDT, 05/20/22 16:05:00 EDT, [facility]/pharmacy #[id number], 157, cm, 05/12/22 [...] Name: Lisa Carlson RN Position: [facility] RN Member Role: Primary Care Nurse Name: Estrellita Putnam RN Position: [facility] RN Member Role: Primary Care Nurse Name: Marlen Kenny RN Position: [facility] RN Member Role: Primary Care Nurse Name: Toshia Muhammad RN Position: [facility] RN Martha Member Role: Primary Care Nurse Name: Suleman Jones RN Position: [facility] RN Member Role: Primary Care Nurse Name: Kathy Medina RN Position: [facility] RN Member Role: Primary Care Nurse Name: Lesli Mercedes RN Position: [facility] RN Member Role: Primary Care Nurse Name: Marguerite Wang RN Position: [facility] RN Member Role: Primary Care Nurse Name: Mick Tatum MD Position: [facility] Primary Care Physician Member Role: PCP Address: Address: [address] [place] [id number] Name: Svitlana Clark RN Position: [facility] RN Member Role: Primary Care Nurse Name: Yoana Guevara RN Position: [facility] RN Member Role: Primary Care Nurse Name: Pierre Groves RN Position: [facility] RN Member Role: Primary Care Nurse Name: Carmen Murphy RN Position: [facility] RN Member Role: Primary Care Nurse Name: Rylie Ordonez RN Position: [facility] [place] RN Member Role: Primary Care Nurse Name: Aditi Brown RN Position: [facility] RN Member Role: Primary Care Nurse Name: Chana Cazares RN Position: [facility] RN Member Role: Primary Care Nurse Name: Toshia Urbina RN Position: [facility] RN Member Role: Primary Care Nurse Name: Aniyah Sloan RN Position: [facility] SN RN Member Role: Primary Care Nurse Name: Rosemary Ramon RN Position: [facility] OB RN Member Role: Primary Care Nurse Name: Sneha Newton RN Position: [facility] Clother In Member Role: Primary Care Nurse Care Team Related Persons Name: CLAUDIA URBINA Address: [address] [place] [address] Name: RALPH SÁNCHEZ Address: [address] [place] [address] Name: DONY CARCAMO Address: [address] [place] [address]
--- OUTSIDE RECORDS SUMMARY | 2024-02-08 01:09 | XMS_ITS | Continuity of Care Document ---
Author Organization [facility] Gopi Jose lt Address [address] [place] [address]- Care Team Providers Care Institutional Commodity Analyst Name Role Phone Mick Tatum MD Primary Care Physician [phone] [place] [facility] [place]/03/23 [facility] Adult [address] [place] [address]- Allergies, Adverse Reactions, Alerts Substance Reaction Severity Status amoxicillin 1 Active Benadryl Shaking Active Other Food Allergy 2 chicken, peppers, [...] toxoids (Td) 5 07/23/96 Augiemin Bingham Comment: [id number] 2Location History: DR LOAIZA 3Location History: DR LOAIZA 4Location History: DR LOAIZA 5Location History: DR LOAIZA Medications atorvastatin 40 mg oral tablet 1 tablet, By Mouth, Daily at bedtime, # 90 tablet, 1 Refills, Maintenance, 05/04/23 6:30:00 EDT, [id number], 157, cm, 03/21/23 14:39:00 EDT, Height, 94.3, [...] 3 Refills, Maintenance, 05/27/22 16:57:00 EDT, [facility], 157, cm, 05/12/22 13:47:00 EDT, Height, 94.3, kg, 01/19/22 4:25:00 EDT, Dry Weight Start Date: 05/27/22 Status: Ordered isosorbide mononitrate 60 mg oral tablet, extended release 60 mg, 1, tablet, By Mouth, 2 times a day, # 180 tablet, Refills 3, Tot. Refills 3, Maintenance, 07/10/22 16:07:00 EST, Route to Pharmacy Electronically, [facility]/pharmacy #[id number], Partial fill upon patientrequest if [...] Acute 06/04/23 11:54:00 EST, 05/04/23 11:53:00 EDT, [facility]/pharmacy #[id number], Partial fill upon patient request if the prescription is for a schedule II opioid drug., 15... Start Date: 05/04/23 Stop Date: 06/04/23 Status: Ordered Metoprolol Succinate ER 25 mg oral tablet, extended release 1 tablet, By Mouth, Daily, # 90 tablet, 3 Refills, 09/30/22 20:06:00 EST, [facility]/pharmacy #[id number], 157, cm, 09/15/22 11:19:00 EST, Height, 94.3, kg, 01/19/22 4:25:00 EDT, Dry Weight Start Date: 09/30/22 Status: Ordered nitroglycerin 0.4 mg sublingual tablet 1 tablet = 0.4 mg, Sublingual, Every 5 minutes, PRN as needed for chest pain, not to exceed 3 doses/15 min--if pain persists, seek medical attention, # 100 tablet, 0 Refills, Maintenance, 12/19/22 9:51:00 EDT, Tablet, [facility]/pharmacy #[id number], Partial fill... Start Date: 12/19/22 Status: Ordered pantoprazole 40 mg oral delayed release tablet 0 Refills, Maintenance, 03/21/23 14:39:00 EDT Start Date: 03/21/23 Status: Ordered rOPINIRole 0.5 mg oral tablet 1 tablet, By Mouth, 4 times a day, # 360 tablet, 1 Refills, Maintenance, 01/22/23 9:08:00 EDT, [facility], 157, cm, 12/28/22 14:14:00 EDT, Height, 94.3, kg, 01/19/22 4:25:00 EDT, Dry Weight Start Date: 01/22/23 Status: Ordered spironolactone 25 mg oral tablet 25 mg, 1, tablet, By Mouth, Daily, # 90 tablet, Refills 3, Tot. Refills 3, Maintenance, 10/09/22 15:42:00 EDT, Route to Pharmacy Electronically, [facility]/pharmacy #[id number], Partial fill upon patient request if the prescription is for a schedule II opioid drug... Start Date: 10/09/22 Stop Date: 10/04/23 Status: Ordered torsemide 20 mg oral tablet 2 tablet = 40 mg, By Mouth, Daily, for 90 days, # 180 tablet, 3 Refills, Physician Stop 07/26/23 8:14:00 EST, 07/31/22 8:14:00 EST, [facility]/pharmacy #[id number], 157, cm, 07/27/22 15:56:00 EST, [...] Team Personnel Name: Lisa Carlson RN Position: [facility] RN Member Role: Primary Care Nurse Name: Estrellita Putnam RN Position: [facility] RN Member Role: Primary Care Nurse Name: Marlen Kenny RN Position: [facility] RN Member Role: Primary Care Nurse Name: Toshia Muhammad RN Position: [facility] RN Supjulieth Member Role: Primary Care Nurse Name: Suleman Jones RN Position: [facility] RN Member Role: Primary Care Nurse Name: Kathy Medina RN Position: [facility] RN Member Role: Primary Care Nurse Name: Marguerite Wang RN Position: [facility] RN Member Role: Primary Care Nurse Name: Mick Tatum MD Position: [facility] Physician - Primary Care Member Role: PCP Address: Address: [address] [place] [address]- [place] Name: Svitlana Clark RN Position: [facility] RN Member Role: Primary Care Nurse Name: Yoana Guevara RN Position: [facility] RN Member Role: Primary Care Nurse Name: Pierre Groves RN Position: [facility] RN Member Role: Primary Care Nurse Name: Carmen Murphy NP Position: [facility] PCO Associate Professional Member Role: Primary Care Nurse Address: Address: [address] [place] [address]- Name: Rylie Ordonez RN Position: [facility] AMB Nurse Member Role: Primary Care Nurse Name: Marisa Negrete RN Position: [facility] SN RN Member Role: Primary Care Nurse Name: Aditi Brown RN Position: [facility] RN Member Role: Primary Care Nurse Name: Chana Cazares RN Position: [facility] RN Member Role: Primary Care Nurse Name: Toshia Urbina RN Position: [facility] RN Member Role: Primary Care Nurse Name: Isabel Gray Position: [facility] Acoustical Engineer Member Role: Theatre Professor Name: Aniyah Sloan RN Position: [facility] SN RN Member Role: Primary Care Nurse Name: Rosemary Ramon RN Position: [facility] OB RN Member Role: Primary Care Nurse Name: Sneha Newton RN Position: [facility] Hospital Training And Quality Manager Member Role: Primary Care Nurse Care Team Related Persons Name: CLAUDIA URBINA Address: [address] [place] [address] Name: RALPH SÁNCHEZ Address: [address] [place] [address] Name: DONY CARCAMO Address: [address] [place] [address]
--- OUTSIDE RECORDS SUMMARY | 2024-02-08 01:09 | XMS_ITS | Continuity of Care Document ---
Author Organization [facility] Jose lt Address [address] [place] [address]- Care Team Providers Care Oyster Unloader Name Role Phone Ignacio Parish MD Primary Care Physician [phone] [place] [facility] [place] 10/08/19 - 11/20/19 [facility] Adult [address] [place] [address]- [facility] Attending Physician: Ignacio Parish MD Allergies, Adverse [...] Parent Or Guardian Refuses 1Location History: DR LOIAZA 2Location History: DR LOAIZA 3Location History: DR [...] 5 Refills, Maintenance, 10/07/19 10:56:00 EDT, Gel, [facility]/pharmacy #[id number], 160, cm, 08/19/19 8:02:00 EST, Height Start Date: 10/07/19 Status: Ordered Eliquis 5 mg oral tablet 1 tablet, By Mouth, 2 times a day, # 180 tablet, Refills 3 Tot. Refills 3, [facility]/pharmacy #[id number] Start Date: 06/17/19 Status: Ordered Flonase 50 mcg/inh nasal spray 2 sprays, Nares, Both, Daily, # 16 Gm, 5 Refills, Maintenance, 10/29/19 12:45:00 EDT, [facility]/pharmacy #[id number], 2 sprays Nares, Both Daily, 160, cm, 08/19/19 8:02:00 EST, Height Start Date: 10/29/19 Status: Ordered gabapentin 300 mg oral capsule 300 mg, 1, capsule, By Mouth, 3 times a day, # 90 capsule, Refills 2, Tot. Refills 2, Maintenance, 03/20/19 12:07:35 EDT, Route to Pharmacy Electronically, [id number], [facility]/pharmacy #[id number] Start Date: 03/20/19 Status: Ordered Lialda 1.2 g oral delayed release tablet 2 tablet = 2.4 Gm, By Mouth, Daily, 0 Refills, Maintenance, 06/27/18 15:39:26 EST Start Date: 06/27/18 Status: Ordered predniSONE 20 mg oral tablet 2 tablet = 40 mg, By Mouth, Daily, # 14 tablet, 0 Refills, Maintenance, 11/06/19 14:38:00 EDT, [facility]/pharmacy #[id number], 160, cm, 08/19/19 8:02:00 [...]
--- OUTSIDE RECORDS SUMMARY | 2024-02-08 01:09 | XMS_ITS | Continuity of Care Document ---
Author Organization [facility] Address [address] [place] [address]- Care Team Providers Care Kilnman Name Role Phone Mick Tatum MD Primary Care Physician [phone] [place] [facility] [place] 09/07/22 - 10/07/22 [facility] [address] [place] [address]- [place] Allergies, Adverse Reactions, Alerts Substance Reaction [...] Given Parent Or Guardian Refuses 1Result Comment: [id number] 2Location History: DR LOAIZA 3Location History: DR LOAIZA 4Location History: DR LOAIZA 5Location History: DR LOAIZA Medications atorvastatin 40 mg oral tablet 1 tablet, By Mouth, Daily at bedtime, # 90 tablet, 3 Refills, Maintenance, 05/13/22 7:24:00 EDT, [facility], 157, cm, 05/12/22 13:47:00 EDT, Height, 94.3, [...] tablet, 3 Refills, Maintenance, 05/27/22 16:57:00 EDT[facility], [facility], cm, 05/12/22 13:47:00 EDT, Height, 94.3, kg, 01/19/22 4:25:00 EDT, Dry Weight Start Date: 05/27/22 Status: Ordered empagliflozin 10 mg oral tablet 1 tablet = 10 mg, By Mouth, Daily in AM, # 90 tablet, 3 Refills, Maintenance, 06/09/22 12:36:00 EST, Tablet, [facility]/pharmacy #[id number], Partial fill upon patient request if the prescription is for a schedule II opioid drug., 157, cm, 05/12/22 13:47:00 EDT, H... Start Date: 06/09/22 Stop Date: 06/04/23 Status: Ordered gabapentin 400 mg oral capsule 2, capsule, By Mouth, 3 times a day, # 180 capsule, Refills 5, Tot. Refills 5, Maintenance, 08/28/22 15:05:00 EST, Route to Pharmacy Electronically, [facility]/pharmacy #[id number], 157, cm, 07/27/22 15:56:00 EST, Height, 94.3, kg, 01/19/22 4:25:00 EDT, Dry Weight Start Date: 08/28/22 Status: Ordered isosorbide mononitrate 60 mg oral tablet, extended release 60 mg, 1, tablet, By Mouth, 2 times a day, # 180 tablet, Refills 3, Tot. Refills 3, Maintenance, 07/10/22 16:07:00 EST, Route to Pharmacy Electronically, [facility]/pharmacy #[id number], Partial fill upon patientrequest if the prescription is for a schedule II op... Start Date: 07/10/22 Status: Ordered latanoprost 0.005% ophthalmic solution See Instructions, INSTILL 1 DROP IN BOTH EYES DAILY BEFORE DINNER, # 2.5 mL, 0 Refills, [facility], 18, INSTILL 1 DROP IN BOTH EYES DAILY BEFORE DINNER, 158, cm, 04/14/21 11:28:00 EDT, Height, 98.6, kg, 04/11/21 15:59:00 EDT, Dry Weight Start Date: 04/14/21 Status: Ordered Metoprolol Succinate ER 25 mg oral tablet, extended release 1 tablet, By Mouth, Daily, # 90 tablet, 3 Refills, 09/30/22 20:06:00 EST, [facility]/pharmacy #[id number], 157, cm, 09/15/22 11:19:00 EST, Height, 94.3, kg, 01/19/22 4:25:00 EDT, Dry Weight Start Date: 09/30/22 Status: Ordered nitroglycerin 0.4 mg sublingual tablet 1 tablet = 0.4 mg, Sublingual, Every 5 minutes, PRN as needed for chest pain, not to exceed 3 doses/15 min--if pain persists, seek medical attention, # 100 tablet, 0 Refills, Maintenance, 03/15/21 12:38:00 EDT, Tablet, [facility]/pharmacy #[id number], Partial fill... Start Date: 03/15/21 Status: Ordered rOPINIRole 0.5 mg oral tablet 1 tablet, By Mouth, 4 times a day, # 360 tablet, 1 Refills, Maintenance, 07/25/22 9:33:00 EST, [facility], 157, cm, 07/10/22 15:50:00 EST, Height, 94.3, [...] Stop 07/26/23 8:14:00 EST, 07/31/22 8:14:00 EST, [facility]/pharmacy #[id number], 157, cm, 07/27/22 15:56:00 EST, Height, 94.3, kg, 01/19/22 4:25:00 EDT, Dry Weight Start Date: 07/31/22 Stop Date: 07/26/23 Status: Ordered torsemide 20 mg oral tablet 2 tablet = 40 mg, By Mouth, Daily, for 90 days, # 180 tablet, 3 Refills, Physician Stop 05/15/23 16:05:00 EDT, 05/20/22 16:05:00 EDT, [facility]/pharmacy #[id number], 157, cm, 05/12/22 13:47:00 EDT, Height, 94.3,kg, 01/19/22 4:25:00 EDT, Dry Weight Start Date: 05/20/22 Stop Date: 05/15/23 Status: Ordered Vitamin B1 100 mg oral tablet 100 mg, 1, tablet, By Mouth, Daily, # 90 tablet, Refills 3, Tot. Refills 3, Acute 05/20/23 16:10:00EDT, 05/20/22 16:10:00 EDT, Route to Pharmacy Electronically, [facility]/pharmacy #[id number], Partial fill uponpatient request if [...] Team Personnel Name: Mojgan Lopez RN Position: [facility] RN Member Role: Primary Care Nurse Name: Lisa Carlson RN Position: [facility] RN Member Role: Primary Care Nurse Name: Estrellita Putnam RN Position: [facility] RN Member Role: Primary Care Nurse Name: Marlen Kenny RN Position: [facility] RN Member Role: Primary Care Nurse Name: Toshia Muhammad RN Position: [facility] RN Supv Member Role: Primary Care Nurse Name: Suleman Jones RN Position: [facility] RN Member Role: Primary Care Nurse Name: Kathy Medina RN Position: [facility] RN Member Role: Primary Care Nurse Name: Marguerite Wang RN Position: [facility] RN Member Role: Primary Care Nurse Name: Mick Tatum MD Position: [facility] Primary Care Physician Member Role: PCP Address: Address: [address] [place] [id number] Name: Svitlana Clark RN Position: [facility] RN Member Role: Primary Care Nurse Name: Yoana Guevara RN Position: [facility] RN Member Role: Primary Care Nurse Name: Pierre Groves RN Position: [facility] RN Member Role: Primary Care Nurse Name: Carmen Murphy RN Position: [facility] RN Member Role: Primary Care Nurse Name: Rylie Ordonez RN Position: [facility] PCO RN Member Role: Primary Care Nurse Name: Aditi Brown RN Position: [facility] RN Member Role: Primary Care Nurse Name: Chana Cazares RN Position: [facility] RN Member Role: Primary Care Nurse Name: Toshia Urbina RN Position: [facility] RN Member Role: Primary Care Nurse Name: Aniyah Sloan RN Position: [facility] SN RN Member Role: Primary Care Nurse Name: Rosemary Ramon RN Position: [facility] OB RN Member Role: Primary Care Nurse Name: Sneha Newton RN Position: [facility] Hospital Payroll Tax Specialist Member Role: Primary Care Nurse Care Team Related Persons Name: CLAUDIA URBINA Address: [address] [place], [place] Name: RALPH SÁNCHEZ Address: [address] [place], [place] Name: YULIET CARCAMOA Address: home [address] [place], [place]
--- OUTSIDE RECORDS SUMMARY | 2024-02-08 01:09 | XMS_ITS | Continuity of Care Document ---
Author Organization [facility] Riva Jose Address [address] [place] [address]- Care Team Providers Care Domestic Cleaner Name Role Phone Rc CORDERO, Mick Clay Primary Care Physician [place] [facility] [place] Date(s[place] 06/10/20 - 07/10/20 [facility] Adult [address] [place] [address]- Attending Physician: Julia Haile Admitting Physician: AdmJulia [...] 180 tablet, Refills 3 Tot. Refills 3, [facility]/pharmacy #[id number] Start Date: 06/17/19 Status: Ordered gabapentin 400 mg oral capsule 400 mg, 1, capsule, By Mouth, 3 times a day, # 270 capsule, Refills 2, Tot. Refills 2, Maintenance,03/30/20 8:48:00 EDT, Route to Pharmacy Electronically, [facility]/pharmacy #[id number], 157, cm, 03/11/20 12:49:00 EDT, Height, 91, kg, 02/28/20 22:14:00 EDT, Dry... Start Date: 03/30/20 Stop Date: 12/25/20 Status: Ordered HYDROmorphone 2 mg oral tablet 1 tablet = 2 mg, By Mouth, Every 8 hours, PRN as needed for pain, # 20 tablet, 0 Refills, Maintenance, 05/07/20 13:21:00 EDT, Tablet, [facility]/pharmacy #[id number], Partial [...]
--- OUTSIDE RECORDS SUMMARY | 2024-02-08 01:09 | XMS_ITS | Continuity of Care Document ---
Author Organization [facility] Address [address] [place] [address]- Care Team Providers Care Surveillance Systems Analyst Name Role Phone Rc CORDERO, Mick Clay Primary Care Physician Encounter [facility] [place] Date(s): 03/11/21 - 03/15/[address] [address] Discharge Disposition: A-D/C Home Attending Physician: Sunday Aparicio MD Admitting Physician: Rosa Elizabeth MD Referring Physician: Not on Staff, Referring [...] I will re-enter the onion allergy 4trees, hilton Immunizations Given and Recorded Vaccine Date [...] 03/30/20 8:48:00 EDT, Route to Pharmacy Electronically, [facility]/pharmacy #[id number], 157, cm, 03/11/20 12:49:00 EDT, Height, 91, kg, 02/28/20 22:14:00 EDT, Dry Weight Start Date: 03/30/20 Stop Date: 03/25/21 Status: Ordered aspirin 81 mg oral delayed release tablet 81 mg, 1, tablet, By Mouth, Daily, # 30 tablet, Refills 0, Tot. Refills 0, Maintenance, 03/15/21 12:35:00 EDT, Route to Pharmacy Electronically, [facility]/pharmacy #[id number], Partial fill upon patient request [...] drug. Start Date: 03/10/21 Status: Ordered Cosopt ophthalmic solution 1 drops, Eyes, Both, 2 times a day, 0 Refills Start Date: 02/09/09 Status: Ordered diclofenac 1% topical gel 1 application, Topically, 4 times a day, # 100 Gm, 5 Refills, Maintenance, 10/07/19 10:56:00 EDT, Gel, [facility]/pharmacy #[id number], 160, cm, 08/19/19 8:02:00 EST, Height Start Date: 10/07/19 Status: Ordered Eliquis 5 mg oral tablet 1 tablet, By Mouth, 2 times a day, # 180 tablet, 3 Refills, Maintenance, 07/12/20 14:12:00 EST, [facility], 157, cm, 05/07/20 11:34:00 EDT, Height, 91, kg, 02/28/20 22:14:00 EDT, Dry Weight Start Date: 07/12/20 Status: Ordered furosemide 20 mg oral tablet 20 mg, 1, tablet, By Mouth, Daily, # 30 tablet, Refills 0, Tot. Refills 0, Maintenance, 03/08/21 9:35:00 EDT, Route to Pharmacy Electronically, [facility]/pharmacy #[id number], Partial fill upon patient request if the prescription is for a schedule II opioid drug.... Start Date: 03/08/21 Status: Ordered gabapentin 400 mg oral capsule See Instructions, 2 capsule By Mouth 3 times a day, # 180 capsule, Refills 0, Tot. Refills 0, Maintenance, 09/27/20 10:29:00 EST, Instructions Replace Required Details, Do Not Route, Partial fill upon patient request if the prescription is for a sched... Start Date: 09/27/20 Status: Ordered gabapentin 400 mg oral capsule 400 mg, Capsule, By Mouth, 03/15/21 9:00:00 EDT Start Date: 03/15/21 Stop Date: 03/15/21 Status: Completed gabapentin 400 mg oral capsule 400 mg, Capsule, By Mouth, 03/15/21 13:00:00 EDT Start Date: 03/15/21 Stop Date: 03/15/21 Status: Completed isosorbide mononitrate 30 mg oral tablet, extended release 1 tablet = 30 mg, By Mouth, Daily, # 30 tablet, 0 Refills, Maintenance, 03/15/21 12:37:00 EDT, ER Tablet, [facility]/pharmacy #[id number], Partial fill upon patient request if the prescription is for a schedule II opioid drug., 159, cm, 03/15/21 8:14:00 EDT, Heigh... Start Date: 03/15/21 Status: Ordered Lipitor 40 mg oral tablet 1 tablet = 40 mg, By Mouth, Daily at bedtime, # 30 tablet, 0 Refills, Maintenance, 03/15/21 12:37:00 EDT, Tablet, [facility]/pharmacy #[id number], Partial fill upon patient request if the prescription is for a schedule II opioid drug., 159, cm, 03/15/21 8:14:00 ED... Start Date: 03/15/21 Status: Ordered metoprolol 25 mg oral tablet, extended release 25 mg, 1, tablet, By Mouth, Daily, # 30 tablet, Refills 5, Tot. Refills 5, Maintenance, 12/06/20 13:03:00 EDT, Route to Pharmacy Electronically, [facility]/pharmacy #[id number], Partial fill upon patient request [...] Refills, Maintenance, 03/15/21 12:38:00 EDT, Tablet, [facility]/pharmacy #[id number], Partial fill... Start Date: 03/15/21 [...] Exam Date Time Procedure Performing Provider Status 03/10/21 11:09 AM Chest Portable NathanTiffany jj; Au th (Verified) Notes: (Chest Portable) Reason For Exam: Shortness of Breath RESULT: Chest Portable Chest Portable Hx of Present Illness: pt states that 5 am this morning she woke up and walked over to the living room and felt substernal chest pian that radiates to her jaw. feels like someone was sitting on her chest.; Reason: Shortness of Breath; Clinical Question(s): CHF COMPARISON: Multiple priors, most recent 03/03/2020. FINDINGS: The examination is suboptimal secondary to imaging technique and patient body habitus. LINES AND TUBES: Monitoring leads project over the chest. LUNGS AND PLEURA: Possible linear atelectasis or scarring in the mid left lung. Otherwise clear lungs, no focal consolidation. Normal pulmonary vascularity. No large pleural effusion. No pneumothorax. HEART, MEDIASTINUM AND WILFRED: Heart is normal in size. Normal upper mediastinal and hilar contour. BONES AND SOFT TISSUES: No acute abnormality. IMPRESSION: Suboptimal examination. No acute cardiopulmonary abnormality. WSN: [id number] Ordering Physician: Lasha Danielle Dictated By: Teo Brock MD Dictated Date/Time: 03/10/21 11:19 a Reviewed By: Teo Brock MD Signed By: Teo Brock MD Signed Date/Time: 03/10/21 11:19 am Transcribed By: WENDY Transcribed Date/Time: 03/10/21 11:17 am Vital Signs Most recent to oldest [Reference Range]: 1 2 3 Height 159 cm (03/15/21 2:39 PM) 159 cm (03/15/21 8:14 AM) 159 cm (03/15/21 4:28 AM) Weight 100.2 kg (03/15/21 4:17 AM) 102.4 kg (03/14/21 1:55 PM) 102.4 kg (03/14/21 7:00 AM) Oxygen Saturation [94-100 %] 93 % *L* (03/15/21 2:39 PM) 95 % (03/15/21 8:14 AM) 94 % (03/15/21 4:28 AM) Pulse Rate [55-90 bpm] 72 bpm (03/15/21 2:39 PM) 66 bpm (03/15/21 8:14 AM) 62 bpm (03/15/21 4:28 AM) Body Mass Index [18.5-24.99] 39.63 *>HHI* (03/15/21 4:17 AM) 39.24 *>HHI* (03/13/21 4:24 AM) 39.2 *>HHI* (03/12/21 5:21 AM) Blood Pressure [90-138/55-84 mm Hg] 108/61mm Hg (03/15/21 2:39 PM) 125/46mm Hg (03/15/21 8:14 AM) 119/62mm Hg (03/15/21 4:28 AM) Respiratory Rate [16-30 br/min] 18 br/min (03/15/21 1:01 PM) 18 br/min (03/15/21 8:19 AM) 15 br/min *L* (03/15/21 8:14 AM) Temperature [96.8-100.4 DegF] 97.5 DegF (03/15/21 2:39 PM) 97.4 DegF (03/15/21 8:14 AM) 97.4 DegF (03/15/21 4:17 AM) Mode of Delivery (Oxygen) Room air (03/15/21 2:39 PM) Room air (03/15/21 8:14 AM) Room air (03/15/21 4:28 AM) Blood pressure sites Arm, right (03/15/21 2:39 PM) Arm, left (03/15/21 8:14 AM) Arm, left (03/15/21 4:28 AM) Temperature Route Oral (03/15/21 2:39 PM) Oral (03/15/21 8:14 AM) Oral (03/15/21 4:17 AM) Dry Weight 100.2 kg (03/15/21 4:17 AM) 100 kg (03/10/21 5:08 PM) Weight Obtained Via Bed scale (03/15/21 4:17 AM) Bed scale (03/13/21 4:24 AM) Bed scale (03/12/21 5:21 AM) Dry Weight Obtained Via Bed scale (03/15/21 4:17 AM) Social History Social History Type Response Smoking Status Never (less than 100 in lifetime) entered on: 06/27/18 Sex Female
--- OUTSIDE RECORDS SUMMARY | 2024-02-08 01:09 | XMS_ITS | Continuity of Care Document ---
Author Organization [facility] Jose [facility] Address [address] [place] [address]- Care Team Providers Care Supervisor Welding Equipment Repairer Name Role Phone iMck Tatum MD Primary Care Physician [place] [facility] [place](s[place] 02/02/22 - 02/09/22 [facility] [place] [address] [place] [address]- Attending Physician: Mick Tatum MD Allergies, Adverse Reactions, Alerts Substance Reaction Severity Status amoxicillin 1 Active Benadryl Shaking Active egg-containing compound 2 Re solved Other [...] 07/09/21 10:04:00 EST, Route to Pharmacy Electronically, [facility]/pharmacy #[id number], Partial fill upon patient request if the prescription is for a schedule II opioid drUriel.. Start Date: 07/09/21 Stop Date: 07/04/22 Status: Ordered Cosopt 2.23%-0.68% ophthalmic solution 1 drops, Eyes, Both, 2 times a day, # 10 mL, 0 Refills, Maintenance, 03/23/21 9:41:00 EDT, Solution, [facility]/pharmacy #[id number], Partial fill upon [...] # 180 tablet, 3 Refills, [facility], 158, cm, 06/09/21 10:14:00 EST, Height, 98.6, kg, 04/11/21 15:59:00 EDT, Dry Weight Start Date: 06/17/21 Status: Ordered empagliflozin 10 mg oral tablet 1 tablet = 10 mg, By Mouth, Daily in AM, # 90 tablet, 3 Refills, Maintenance, 06/09/21 12:06:00 EST, Tablet, [facility]/pharmacy #[id number], Partial [...] 5, Route to Pharmacy Electronically, [facility], 159, cm, 12/21/21 15:41:00 EDT, Height, 93.6, [...] BEFORE DINNER, # 2.5 mL, 0 Refills, [facility] 326[facility], 18, INSTILL 1 DROP IN BOTH EYES [...] # 90 tablet, 2 Refills, [facility], 159, cm, 12/21/21 15:41:00 EDT,Height, 93.6, kg, [...] a day, # 360 tablet, 1 Refills, [facility] STORE 89128, 159, cm, 11/14/21 9:20:00 EDT, Height, 98, kg, 07/06/21 19:57:00 EST, Dry Weight Start Date: 11/22/21 Status: Ordered spironolactone 25 mg oral tablet 25 mg, 1, tablet, By Mouth, Daily, # 90 tablet, Refills 3, Tot. Refills 3, Maintenance, 11/14/21 9:55:00 EDT, Route to Pharmacy Electronically, [facility] 90 tablet, 1 Refills, 12/13/21 10:45:00 EDT, [facility]/pharmacy #[id number], 159, cm, 12/13/21 10:22:00 EDT, [...] oldest [Reference Range]: 1 Height 157 cm (02/02/22 2:05 PM) Weight 92.8 kg (02/02/22 2:05 PM) Oxygen Saturation [94-100 %] 97 % (02/02/22 2:05 PM) Pulse Rate [55-90 bpm] 66 bpm (02/02/22 2:05 PM) Body Mass Index [18.5-24.99] 37.65 *>HHI* (02/02/22 2:05 PM) Blood Pressure [90-138/55-84 mm Hg] 102/ 51mm Hg (02/02/22 2:05 PM) Temperature [96.8-100.4 DegF] 97.9 DegF (02/02/22 2:05 PM) Mode of Delivery (Oxygen) Room air (02/02/22 2:05 PM) Blood pressure sites Arm, left (02/02/22 2:05 PM) Temperature Route Oral (02/02/22 2:05 PM) Weight Obtained Via Standing scale (02/02/22 2:05 PM) Social History Social History Type Response Smoking Status Never (less than 100 in lifetime) entered on: 06/27/18 Sex
--- OUTSIDE RECORDS SUMMARY | 2024-02-08 01:09 | XMS_ITS | Continuity of Care Document ---
Author Organization [facility] Address [address] [place] [address]- Care Team Providers Care Bar Examiner Name Role Phone Mick Tatum MD Primary Care Physician [phone] Encounter [facility] [place] Date(s): 04/25/21 - 06/23/21 [facility] [address] [place] [address]- Attending Physician: Elizabeth Bay NP Admitting Physician: [...] 16:32:00 EDT, 04/25/21 16:32:00 EDT, [facility]/pharmacy #[id number], 158, cm, 04/25/21 14:49:00 EDT, Height, [...] Maintenance, 03/23/21 9:41:00 EDT, Solution, [facility]/pharmacy #[id number], Partial fill upon patient request if the prescription is for a schedule II opioid drug., 1 drops Eyes, Both 2 times a day, 159, cm... Start Date: 03/23/21 Status: Ordered [facility] ASPIRIN EC 81 MG TABLET [facility] ASPIRIN EC 81 MG TABLET, 1, tablet, By Mouth, Daily, # 30 tablet, 0 Refills, 158, cm, 04/14/21 11:28:00 EDT, Height, 98.6, kg, 04/11/21 15:59:00 EDT, Dry Weight Start Date: 04/22/21 Status: Ordered diclofenac 1% topical gel 1 application, Topically, 4 times a day, # 100 Gm, 5 Refills, Maintenance, 10/07/19 10:56:00 EDT, Gel, [facility]/pharmacy #[id number], 160, cm, 08/19/19 8:02:00 EST, Height Start Date: 10/07/19 Status: Ordered Eliquis 5 mg oral tablet 1 tablet, By Mouth, 2 times a day, # 180 tablet, 3 Refills, [facility] ST[facility] 84166, 158, cm, 06/09/21 10:14:00 EST, Height, 98.6, kg, 04/11/21 15:59:00 EDT, Dry Weight Start Date: 06/17/21 Status: Ordered empagliflozin 10 mg oral tablet 1 tablet = 10 mg, By Mouth, Daily in AM, # 90 tablet, 3 Refills, Maintenance, 06/09/21 12:06:00 EST, Tablet, [facility]/pharmacy #[id number], Partial fill upon patient request if the prescription is for a schedule II opioid drug., 158, cm, 06/09/21 10:14:00 EST, H... Start Date: 06/09/21 Stop Date: 06/04/22 Status: Ordered gabapentin 400 mg oral capsule 2, capsule, By Mouth, 3 times a day, # 180 capsule, Refills 0, Route to Pharmacy Electronically, [facility] STORE 64243, 158, cm, 06/09/21 10:14:00 EST, Height, 98.6, kg, 04/11/21 15:59:00 EDT, Dry Weight Start Date: 06/23/21 Status: Ordered HYDROmorphone 2 mg oral tablet 1 tablet = 2 mg, By Mouth, Every 12 hours, PRN Pain , Severe, Dx: Severe lumbar degen disc disease,# 12 tablet, 0 Refills, Acute 07/17/21 8:24:00 EST, 06/17/21 8:24:00 EST, [facility]/pharmacy #[id number], Partial fill upon patient request if the prescription is... Start Date: 06/17/21 Stop Date: 07/17/21 Status: Ordered isosorbide mononitrate 30 mg oral tablet, extended release 1 tablet, By Mouth, Daily, for 90 days, # 90 tablet, 3 Refills, Physician Stop 04/20/22 16:32:00 EDT, 04/25/21 16:32:00 EDT, [facility]/pharmacy #[id number], 158, cm, 04/25/21 14:49:00 EDT, Height, 98.6, kg, 04/11/21 15:59:00 EDT, Dry Weight Start Date: 04/25/21 Stop Date: 04/20/22 Status: Ordered latanoprost 0.005% ophthalmic solution See Instructions, INSTILL 1 DROP IN BOTH EYES DAILY BEFORE DINNER, # 2.5 mL, 0 Refills, [facility], 18, INSTILL 1 DROP IN BOTH EYES DAILY BEFORE DINNER, 158, cm, 04/14/21 11:28:00 EDT, Height, 98.6, kg, 04/11/21 15:59:00 EDT, Dry Weight Start Date: 04/14/21 Status: Ordered Lipitor 40 mg oral tablet 1 tablet = 40 mg, By Mouth, Daily, # 30 tablet, 5 Refills, Maintenance, 04/28/21 6:50:00 EDT, Tablet, [facility]/pharmacy #[id number], [...] Mouth, Daily, # 90 tablet, 2 Refills, [facility] ST[facility] 83646, 158, cm, 04/25/21 14:49:00 EDT,Height, 98.6, kg, 04/11/21 15:59:00 EDT, Dry Weight Start Date: 06/01/21 Status: Ordered nitroglycerin 0.4 mg sublingual tablet 1 tablet = 0.4 mg, Sublingual, Every 5 minutes, PRN as needed for chest pain, not to exceed 3 doses/15 min--if pain persists, seek medical attention, # 100 tablet, 0 Refills, Maintenance, 03/15/21 12:38:00 EDT, Tablet, [facility]/pharmacy #[id number], Partial fill... Start Date: 03/15/21 Status: [...] 2 Refills, Maintenance, 05/26/21 12:47:00 EDT, Tablet, [facility]/pharmacy #[id number], [...] Maintenance, 05/10/21 4:19:00 EDT, Tablet, [facility]/pharmacy #[id number], Partial fill upon patient request if the prescription is for a schedule II opioid drug., 158, cm, 04/25/21 14:49:00 EDT, Height,... Start Date: 05/10/21 Status: Ordered Vitamin D2 50,000 intl units (1.25 mg) oral capsule 1 capsule = 50,000 International_Units, By Mouth, Every , # 8 capsule, 0 Refills, Maintenance, 04/14/21 12:50:00 EDT, [facility]/pharmacy #[id number], [...]
--- OUTSIDE RECORDS SUMMARY | 2024-02-08 01:09 | XMS_ITS | Continuity of Care Document ---
Author Organization [facility] Jose lt Address [address] [place] [address]- Care Team Providers Care Surveyor Mine Name Role Phone Mick Tatum MD Primary Care Physician [phone] Encounter [facility] [place] Date(s): 07/27/22 - 08/03/22 [facility] Adult [address] [place] [address]- Attending Physician: Mick Tatum MD Allergies, Adverse [...] Given Parent Or Guardian Refuses 1Result Comment: [id number] 2Location History: DR LOAIZA 3Location History: DR LOAIZA 4Location History: DR LOAIZA 5Location History: DR LOAIZA Medications atorvastatin 40 mg oral tablet 1 tablet, By Mouth, Daily at bedtime, # 90 tablet, 3 Refills, Maintenance, 05/13/22 7:24:00 EDT, [facility], 157, cm, 05/12/22 13:47:00 EDT, Height, 94.3, [...] 6:58:00 EDT, 01/18/22 6:58:00 EDT, CR Capsule, [facility]/pharmacy #[id number], Partial fill upon patient request if the prescription is for a schedule II opioid drug., 159, cm, 12/21... Start Date: 01/18/22 Stop Date: 01/18/23 Status: Ordered clopidogrel 75 mg oral tablet 75 mg, 1, tablet, By Mouth, Daily, # 90 tablet, Refills 3, Tot. Refills 3, Maintenance, 07/10/22 16:07:00 EST, Route to Pharmacy Electronically, [facility]/pharmacy #[id number], Partial fill upon patient request if the prescription is for a schedule II opioid drug... Start Date: 07/10/22 Stop Date: 07/05/23 Status: Ordered Cosopt 2.23%-0.68% ophthalmic solution 1 drops, Eyes, Both, 2 times a day, # 10 mL, 0 Refills, Maintenance, 03/23/21 9:41:00 EDT, Solution, [facility]/pharmacy #[id number], Partial fill upon patient request if the prescription is for a schedule II opioid drug., 1 drops Eyes, Both 2 times a day, 159, cm... Start Date: 03/23/21 Status: Ordered diclofenac 1% topical gel 1 application, Topically, 4 times a day, # 100 Gm, 5 Refills, Maintenance, 05/13/22 9:34:00 EDT, Gel, [facility]/pharmacy #[id number], 157, cm, 05/12/22 13:47:00 EDT, Height, 94.3, kg, 01/19/22 4:25:00 EDT, Dry Weight Start Date: 05/13/22 Status: Ordered Eliquis 5 mg oral tablet 1 tablet, By Mouth, 2 times a day, # 180 tablet, 3 Refills, Maintenance, 05/27/22 16:57:00 EDT, [facility], 157, cm, 05/12/22 13:47:00 EDT, Height, 94.3, kg, 01/19/22 4:25:00 EDT, Dry Weight Start Date: 05/27/22 Status: Ordered empagliflozin 10 mg oral tablet 1 tablet = 10 mg, By Mouth, Daily in AM, # 90 tablet, 3 Refills, Maintenance, 06/09/22 12:36:00 EST, Tablet, [facility]/pharmacy #[id number], Partial fill upon patient request if the prescription is for a schedule II opioid drug., 157, cm, 05/12/22 13:47:00 EDT, H... Start Date: 06/09/22 Stop Date: 06/04/23 Status: Ordered gabapentin 400 mg oral capsule 2, capsule, By Mouth, 3 times a day, # 180 capsule, Refills 5, Route to Pharmacy Electronically, [facility] 40087, 159, cm, 12/21/21 15:41:00 EDT, Height, 93.6, kg, 01/06/22 9:12:00 EDT, Dry Weight Start Date: 01/17/22 Status: Ordered isosorbide mononitrate 60 mg oral tablet, extended release 60 mg, 1, tablet, By Mouth, 2 times a day, # 180 tablet, Refills 3, Tot. Refills 3, Maintenance, 07/10/22 16:07:00 EST, Route to Pharmacy Electronically, [facility]/pharmacy #[id number], Partial fill upon patientrequest if the prescription is for a schedule II op... Start Date: 07/10/22 Status: Ordered latanoprost 0.005% ophthalmic solution See Instructions, INSTILL 1 DROP IN BOTH EYES DAILY BEFORE DINNER, # 2.5 mL, 0 Refills, [facility] 58593, 18, INSTILL 1 DROP IN BOTH EYES DAILY BEFORE DINNER, 158, cm, 04/14/21 11:28:00 EDT, Height, 98.6, kg, 04/11/21 15:59:00 EDT, Dry Weight Start Date: 04/14/21 Status: Ordered Metoprolol Succinate ER 25 mg oral tablet, extended release 1 tablet, By Mouth, Daily, # 90 tablet, 2 Refills, [facility] 23640, 159, cm, 12/21/21 15:41:00 EDT,Height, 93.6, kg, 01/06/22 9:12:00 EDT, Dry Weight Start Date: 01/16/22 Status: Ordered nitroglycerin 0.4 mg sublingual tablet 1 tablet = 0.4 mg, Sublingual, Every 5 minutes, PRN as needed for chest pain, not to exceed 3 doses/15 min--if pain persists, seek medical attention, # 100 tablet, 0 Refills, Maintenance, 03/15/21 12:38:00 EDT, Tablet, [facility]/pharmacy #[id number], Partial fill... Start Date: 03/15/21 Status: Ordered rOPINIRole 0.5 mg oral tablet 1 tablet, By Mouth, 4 times a day, # 360 tablet, 1 Refills, Maintenance, 07/25/22 9:33:00 EST, [facility] 77718, 157, cm, 07/10/22 15:50:00 EST, Height, 94.3, [...] oldest [Reference Range]: 1 Height 157 cm (07/27/22 3:56 PM) Oxygen Saturation [94-100 %] 95 % (07/27/22 3:56 PM) Pulse Rate [55-90 bpm] 72 bpm (07/27/22 3:56 PM) Blood Pressure [90-138/55-84 mm Hg] 108/ 67mm Hg (07/27/22 3:56 PM) Mode of Delivery (Oxygen) Room air (07/27/22 3:56 PM) Blood pressure sites Arm, left (07/27/22 3:56 PM) Weight Obtained Via Standing scale (07/27/22 3:56 PM) Social History Social History Type Response Smoking Status Never (less than 100 in lifetime) entered on: 06/27/18 Sex Patient Care team information Care Team Personnel Name: Mojgan Lopez RN Position: [facility] RN Member Role: Primary Care Nurse Name: Lisa Carlson RN Position: [facility] RN Member Role: Primary Care Nurse Name: Estrellita Putnam RN Position: S RN Member Role: Primary Care Nurse Name: Marlen Kenny RN Position: [facility] RN Member Role: Primary Care Nurse Name: Toshia Muhammad RN Position: [facility] RN Martha Member Role: Primary Care Nurse Name: Suleman Jones RN Position: [facility] RN Member Role: Primary Care Nurse Name: Kathy Medina RN Position: [facility] RN Member Role: Primary Care Nurse Name: Lesli Mercedes RN Position: [facility] RN Member Role: Primary Care Nurse Name: Marguerite Wang RN Position: S RN Member Role: Primary Care Nurse Name: Ananya Robledo RN Position: S RN Member Role: Primary Care Nurse Name: Mick Tatum MD Position: [facility] Primary Care Physician Member Role: PCP Address: Address: [address] [place] [address]- Name: Svitlana Clark RN Position: S RN Member Role: Primary Care Nurse Name: Yoana Guevara RN Position: S RN Member Role: Primary Care Nurse Name: Pierre Groves RN Position: S RN Member Role: Primary Care Nurse Name: Carmen Murphy RN Position: [facility] RN Member Role: Primary Care Nurse Name: Rylie Ordonez RN Position: [facility] PCO RN Member Role: Primary Care Nurse Name: Marisa Negrete RN Position: [facility] RN Member Role: Primary Care Nurse Name: Aditi Brown RN Position: [facility] RN Member Role: Primary Care Nurse Name: Chana Cazares RN Position: [facility] RN Member Role: Primary Care Nurse Name: Toshia Urbina RN Position: [facility] RN Member Role: Primary Care Nurse Name: Aniyah Sloan RN Position: [facility] SN RN Member Role: Primary Care Nurse Name: Rosemary Ramon RN Position: [facility] OB RN Member Role: Primary Care Nurse Name: Sneha Newton RN Position: [facility] Cad Technician Member Role: Primary Care Nurse Care Team Related Persons Name: CARLITOS CLAUDIA Address: [address] [place] [address] Name: RALPH SÁNCHEZ Address: [address] [place] [address] Name: DONY CARCAMO Address: [address] [place] [address]
--- OUTSIDE RECORDS SUMMARY | 2024-02-08 01:09 | XMS_ITS | Continuity of Care Document ---
Author Organization [facility] Address [address] [place] [address]- Care Team Providers Care Doughnut Fryer Name Role Phone Mick Tatum MD Primary Care Physician [phone] Encounter [facility] [place] Date(s): 01/26/21 - 03/04/21 [facility] [address] [place] [address]- Attending Physician: Mick Tatum MD Allergies, Adverse [...] 03/30/20 8:48:00 EDT, Route to Pharmacy Electronically, [facility]/pharmacy #[id number], 157, cm, 03/11/20 12:49:00 EDT, Height, 91, kg, 02/28/20 22:14:00 EDT, Dry Weight Start Date: 03/30/20 Stop Date: 03/25/21 Status: Ordered aspirin 81 mg oral delayed release tablet 81 mg, 1, tablet, By Mouth, Daily, # 30 tablet, Refills 0, Tot. Refills 0, Maintenance, 09/20/20 14:38:00 EST, Route to Pharmacy Electronically, [facility]/pharmacy #[id number], Partial fill upon patient [...] opioid drug. Start Date: 01/06/21 Status: Ordered Cosopt ophthalmic solution 1 drops, Eyes, Both, 2 times a day, 0 Refills Start Date: 02/09/09 Status: Ordered diclofenac 1% topical gel 1 application, Topically, 4 times a day, # 100 Gm, 5 Refills, Maintenance, 10/07/19 10:56:00 EDT, Gel, [facility]/pharmacy #[id number], 160, cm, 08/19/19 8:02:00 EST, Height Start Date: 10/07/19 Status: Ordered Eliquis 5 mg oral tablet 1 tablet, By Mouth, 2 times a day, # 180 tablet, 3 Refills, Maintenance, 07/12/20 14:12:00 EST, [facility], 157, cm, 05/07/20 11:34:00 EDT, Height, 91, [...] 0 Refills, Maintenance, 08/30/20 10:02:00 EST, Tablet, [facility]/pharmacy #[id number], Partial fill upon patient request, 157, cm, 08/30/20 7:27:00 EST, Height, 91, kg, 02/28/20 22:... Start Date: 08/30/20 Status: Ordered metoprolol 25 mg oral tablet, extended release 25 mg, 1, tablet, By Mouth, Daily, # 30 tablet, Refills 5, Tot. Refills 5, Maintenance, 12/06/20 13:03:00 EDT, Route to Pharmacy Electronically, [facility]/pharmacy #[id number], Partial fill upon patient request if the prescription is for a schedule II opioid drug... Start Date: 12/06/20 Stop Date: 06/04/21 Status: Ordered predniSONE 5 mg oral tablet See Instructions, Take 8 pills (40 mg) a day for five days then decrease by one pill every 5 days.,# 180 tablet, 0 Refills, Maintenance, 11/25/20 12:14:00 EDT, Tablet, [facility]/pharmacy #[id number], Partial fill upon patient [...] tablet, 0 Refills,Soft Stop, 10/21/20 16:26:00 EDT, [facility]/pharmacy #[id number], Partial fill upon patient [...]
--- OUTSIDE RECORDS SUMMARY | 2024-02-08 01:09 | XMS_ITS | Continuity of Care Document ---
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 Attending Physician: Ignacio Parish MD Allergies, Adverse [...] 5 Refills, Maintenance, 10/07/19 10:56:00 EDT, Gel, [facility]/pharmacy #[id number], 160, cm, 08/19/19 8:02:00 EST, Height Start Date: 10/07/19 Status: Ordered Eliquis 5 mg oral tablet 1 tablet, By Mouth, 2 times a day, # 180 tablet, Refills 3 Tot. [facility]ills 3, [id number] Start Date: 06/17/19 Status: Ordered Flonase 50 mcg/inh nasal spray 2 sprays, Nares, Both, Daily, # 16 Gm, 5 Refills, Maintenance, 10/29/19 12:45:00 EDT, [facility]/pharmacy #[id number], 2 sprays Nares, Both Daily, 160, cm, 08/19/19 8:02:00 EST, Height Start Date: 10/29/19 Status: Ordered gabapentin 300 mg oral capsule 300 mg, 1, capsule, By Mouth, 3 times a day, # 90 capsule, Refills 2, Tot. Refills 2, Maintenance, 03/20/19 12:07:35 EDT, Route to Pharmacy Electronically, [id number], [facility]/pharmacy #[id number] Start Date: 03/20/19 Status: Ordered levoFLOXacin 500 mg oral tablet 1 tablet = 500 mg, By Mouth, Every 24 hours, # 7 tablet, 0 Refills, Maintenance, 01/29/20 8:53:00 EDT, [facility]/pharmacy #[id number], 160, cm, 01/28/20 8:49:00 EDT, Height [...] oldest [Reference Range]: 1 Height 160.00 cm (01/28/20 8:49 AM) Social History Social History Type Response Smoking Status Never (less than 100 in lifetime) entered on: 06/27/18 Sex
--- OUTSIDE RECORDS SUMMARY | 2024-02-08 01:09 | XMS_ITS | Continuity of Care Document ---
Author Organization [facility] Address [address] [place] [address]- Care Team Providers Care Manager Unit Name Role Phone Rc CORDERO, Mick Clay Primary Care Physician [phone] [facility] [place] [place] Date(s): 01/26/22 - 02/25/22 [facility] [address] [place] [address] [place] Allergies, Adverse Reactions, Alerts Substance Reaction [...] 6:58:00 EDT, 01/18/22 6:58:00 EDT, CR Capsule, [facility]/pharmacy #[id number], Partial fill upon patient request [...] 07/09/21 10:04:00 EST, Route to Pharmacy Electronically, [facility]/pharmacy #[id number], Partial fill upon patient request [...] # 180 tablet, 3 Refills, [facility], 158, cm, 06/09/21 10:14:00 EST, Height, 98.6, kg, 04/11/21 15:59:00 EDT, Dry Weight Start Date: 06/17/21 Status: Ordered empagliflozin 10 mg oral tablet 1 tablet = 10 mg, By Mouth, Daily in AM, # 90 tablet, 3 Refills, Maintenance, 06/09/21 12:06:00 EST, Tablet, [facility]/pharmacy #[id number], Partial fill upon patient request [...] capsule, Refills 5, Route to Pharmacy Electronically, [facility] 63995, 159, cm, 12/21/21 15:41:00 EDT, Height, 93.6, [...] # 2.5 mL, 0 Refills, [facility], 18, INSTILL 1 DROP IN BOTH EYES [...] # 90 tablet, 2 Refills, [facility], 159, cm, 12/21/21 15:41:00 EDT,Height, 93.6, kg, [...] a day, # 360 tablet, 1 Refills, [facility] 69277, 159, cm, 11/14/21 9:20:00 EDT, Height, 98, kg, 07/06/21 19:57:00 EST, Dry Weight Start Date: 11/22/21 Status: Ordered spironolactone 25 mg oral tablet 25 mg, 1, tablet, By Mouth, Daily, # 90 tablet, Refills 3, Tot. Refills 3, Maintenance, 11/14/21 9:55:00 EDT, Route to Pharmacy Electronically, [facility]/pharmacy #[id number], Partial fill upon patient request if the prescription is for a schedule II opioid drug.... Start Date: 11/14/21 Stop Date: 11/09/22 Status: Ordered torsemide 20 mg oral tablet 2 tablet = 40 mg, By Mouth, Daily, HOLD FOR NEXT 5 DAYS, THEN GET BLOOD WORK AND RESTART AFTER DISCUSSING WITH PCP, # 90 tablet, 1 Refills, 12/13/21 10:45:00 EDT, [facility]/pharmacy #[id number], 159, cm, 12/13/21 10:22:00 EDT, [...]
--- OUTSIDE RECORDS SUMMARY | 2024-02-08 01:09 | XMS_ITS | Continuity of Care Document ---
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 Start [...] 07/09/21 10:04:00 EST, Route to Pharmacy Electronically, [facility]/pharmacy #[id number], Partial fill upon patient request if the prescription is for a schedule II opioid drJohann. Start Date: 07/09/21 Stop Date: 07/04/22 Status: Ordered Cosopt 2.23%-0.68% ophthalmic solution 1 drops, Eyes, Both, 2 times a day, # 10 mL, 0 Refills, Maintenance, 03/23/21 9:41:00 EDT, Solution, [facility]/pharmacy #[id number], Partial fill upon patient request if the prescription is for a schedule II opioid drug., 1 drops Eyes, Both 2 times a day, 159, cm... Start Date: 03/23/21 Status: Ordered [facility] ASPIRIN EC 81 MG TABLET [facility] ASPIRIN EC 81 MG TABLET, 1, tablet, By Mouth, Daily, # 30 tablet, 0 Refills, 158, cm, 04/14/21 11:28:00 EDT, Height, 98.6, kg, 04/11/21 15:59:00 EDT, Dry Weight Start Date: 04/22/21 Status: Ordered diclofenac 1% topical gel 1 application, Topically, 4 times a day, # 100 Gm, 5 Refills, Maintenance, 10/07/19 10:56:00 EDT, Gel, [facility]/pharmacy #[id number], 160, cm, 08/19/19 8:02:00 EST, Height Start Date: 10/07/19 Status: Ordered Eliquis 5 mg oral tablet 1 tablet, By Mouth, 2 times a day, # 180 tablet, 3 Refills, [facility] [id number], 158, cm, 06/09/21 10:14:00 EST, Height, 98.6, kg, 04/11/21 15:59:00 EDT, Dry Weight Start Date: 06/17/21 Status: Ordered empagliflozin 10 mg oral tablet 1 tablet = 10 mg, By Mouth, Daily in AM, # 90 tablet, 3 Refills, Maintenance, 06/09/21 12:06:00 EST, Tablet, [facility]/pharmacy #[id number], Partial [...] capsule, Refills 0, Route to Pharmacy Electronically, [facility] [id number], 158, cm, 06/09/21 10:14:00 EST, Height, 98.6, kg, 04/11/21 15:59:00 EDT, Dry Weight Start Date: 06/23/21 Status: Ordered Gabapentin Capsule 300 mg, Capsule, By Mouth, 07/09/21 9:00:00 EST Start Date: 07/09/21 Stop Date: 07/09/21 Status: Completed HYDROmorphone 2 mg oral tablet 1 tablet = 2 mg, By Mouth, Every 12 hours, PRN Pain , Severe, Dx: Severe lumbar degen disc disease,# 12 tablet, 0 Refills, Acute 07/17/21 8:24:00 EST, 06/17/21 8:24:00 EST, [facility]/pharmacy #[id number], Partial fill upon patient request if the prescription is... Start Date: 06/17/21 Stop Date: 07/17/21 Status: Ordered isosorbide mononitrate 30 mg oral tablet, extended release 1 tablet, By Mouth, Daily, for 90 days, # 90 tablet, 3 Refills, Physician Stop 04/20/22 16:32:00 EDT, 04/25/21 16:32:00 EDT, [facility]/pharmacy #[id number], 158, cm, 04/25/21 14:49:00 EDT, Height, 98.6, kg, 04/11/21 15:59:00 EDT, Dry Weight Start Date: 04/25/21 Stop Date: 04/20/22 Status: Ordered latanoprost 0.005% ophthalmic solution See Instructions, INSTILL 1 DROP IN BOTH EYES DAILY BEFORE DINNER, # 2.5 mL, 0 Refills, [facility] [id number], 18, INSTILL 1 DROP IN BOTH EYES DAILY BEFORE DINNER, 158, cm, 04/14/21 11:28:00 EDT, Height, 98.6, kg, 04/11/21 15:59:00 EDT, Dry Weight Start Date: 04/14/21 Status: Ordered Lipitor 40 mg oral tablet 1 tablet = 40 mg, By Mouth, Daily, # 30 tablet, 5 Refills, Maintenance, 04/28/21 6:50:00 EDT, Tablet, [facility]/pharmacy #[id number], Partial [...] release 25 mg, XL Tablet, By Mouth, 07/09/21 9:00:00 EST Start Date: 07/09/21 Stop Date: 07/09/21 Status: Completed nitroglycerin 0.4 mg sublingual tablet 1 tablet = 0.4 mg, Sublingual, Every 5 minutes, PRN as needed for chest pain, not to exceed 3 doses/15 min--if pain persists, seek medical attention, # 100 tablet, 0 Refills, Maintenance, 03/15/21 12:38:00 EDT, Tablet, [facility]/pharmacy #[id number], Partial fill... Start Date: [...] 05/14/21 12:51:00 EDT, [id number] fill upon patient request if the prescription is... Start Date: 05/14/21 Stop Date: 11/10/21 Status: Ordered torsemide 20 mg oral tablet 1 tablet = 20 mg, By Mouth, Daily, # 30 tablet, 5 Refills, Maintenance, 05/10/21 4:19:00 EDT, Tablet, [facility]/pharmacy #[id number], Partial fill upon patient request if the prescription is for a schedule II opioid drug., 158, cm, 04/25/21 14:49:00 EDT, Height,... Start Date: 05/10/21 Status: Ordered Vitamin D2 50,000 intl units (1.25 mg) oral capsule 1 capsule = 50,000 International_Units, By Mouth, Every , # 8 capsule, 0 Refills, Maintenance, 04/14/21 12:50:00 EDT, [facility]/pharmacy #[id number], Partial fill [...] Exam Date Time Procedure Performing Provider Status 07/06/21 2:58 PM Chest Portable Kirstin Manuel (Verified) Notes: (Chest Portable) Reason For Exam: Chest Pain;Other: RESULT: Chest Portable Examination: Portable chest performed on 07/06/2021. History: Jaw and chest pain. Findings: A frontal view of the chest is compared to a prior study dated 04/11/2021. The cardiac and mediastinal silhouettes are within normal limits. Prominence of the pulmonary vasculature is noted without edema. There are no focal infiltrates or pleural effusions. There appears to have been resection of the distal aspect of the right clavicle, unchanged. IMPRESSION: There is no acute cardiopulmonary disease. WSN: [id number] Ordering Physician: Elva Sims Dictated By: Megan Lang MD Dictated Date/Time: 07/06/21 3:06 pm Reviewed By: Megan Lang MD Signed By: Megan Lang MD Signed Date/Time: 07/06/21 3:06 pm Transcribed By: WENDY Transcribed Date/Time: 07/06/21 3:05 pm Vital Signs Most recent to oldest [Reference Range]: 1 2 3 Height 159 cm (07/09/21 7:27 AM) 159 cm (07/09/21 5:00 AM) 159 cm (07/09/21 12:12 AM) Weight 98 kg (07/08/21 1:39 AM) 98 kg (07/06/21 7:57 PM) Oxygen Saturation [94-100 %] 98 % (07/09/21 7:27 AM) 96 % (07/09/21 5:00 AM) 96 % (07/09/21 12:12 AM) Pulse Rate [55-90 bpm] 66 bpm (07/09/21 9:31 AM) 51 bpm *L* (07/09/21 7:27 AM) 65 bpm (07/09/21 5:00 AM) Body Mass Index [18.5-24.99] 38.76 *>HHI* (07/06/21 7:57 PM) Blood Pressure [90-138/55-84 mm Hg] 112/66mm Hg (07/09/21 9:31 AM) 110/52mm Hg (07/09/21 7:27 AM) 115/56mm Hg (07/09/21 5:00 AM) Respiratory Rate [16-30 br/min] 18 br/min (07/09/21 9:31 AM) 18 br/min (07/09/21 7:27 AM) 18 br/min (07/09/21 5:00 AM) Temperature [96.8-100.4 DegF] 97.3 DegF (07/09/21 7:27 AM) 98.4 DegF (07/09/21 5:00 AM) 97.6 DegF (07/09/21 12:12 AM) Mode of Delivery (Oxygen) Room air (07/09/21 7:27 AM) Room air (07/09/21 5:00 AM) Room air (07/08/21 4:28 PM) Blood pressure sites Arm, right (07/09/21 7:27 AM) Arm, right (07/09/21 5:00 AM) Arm, right (07/08/21 7:04 PM) Temperature Route Oral (07/09/21 7:27 AM) Oral (07/09/21 5:00 AM) Oral (07/09/21 12:12 AM) Dry Weight 98 kg (07/06/21 7:57 PM) Weight Obtained Via Bed scale (07/06/21 7:57 PM) Dry Weight Obtained Via Bed scale (07/06/21 7:57 PM) Social History Social History Type Response Smoking Status Never (less than 100 in lifetime) entered on: 06/27/18 Sex
--- OUTSIDE RECORDS SUMMARY | 2024-02-08 01:09 | XMS_ITS | Continuity of Care Document ---
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 Start Date: 07/09/21 Stop Date: 07/04/22 Status: Ordered Cosopt 2.23%-0.68% ophthalmic solution 1 drops, Eyes, Both, 2 times a day, # 10 mL, 0 Refills, Maintenance, 03/23/21 9:41:00 EDT, Solution, [facility]/pharmacy #[id number], Partial fill upon [...] a day, # 180 tablet, 3 Refills, [facility] [id number], 158, cm, 06/09/21 10:14:00 EST, Height, 98.6, kg, 04/11/21 15:59:00 EDT, Dry Weight Start Date: 06/17/21 Status: Ordered empagliflozin 10 mg oral tablet 1 tablet = 10 mg, By Mouth, Daily in AM, # 90 tablet, 3 Refills, Maintenance, 06/09/21 12:06:00 EST, Tablet, [facility]/pharmacy #[id number], Partial fill upon [...] 07/31/21 10:21:00 EST, Route to Pharmacy Electronically, [facility]/pharmacy #[id number], 159, cm, 07/25/21 11:20:00 EST, Height, 98, kg, 07/06/21 19:57:00 EST, Dry Weight Start Date: 07/31/21 Status: Ordered isosorbide mononitrate 30 mg oral tablet, extended release 1 tablet, By Mouth, Daily, for 90 days, # 90 tablet, 3 Refills, Physician Stop 04/20/22 16:32:00 EDT, 04/25/21 16:32:00 EDT, [facility]/pharmacy #[id number], 158, cm, 04/25/21 14:49:00 EDT, Height, 98.6, kg, 04/11/21 15:59:00 EDT, Dry Weight Start Date: 04/25/21 Stop Date: 04/20/22 Status: Ordered latanoprost 0.005% ophthalmic solution See Instructions, INSTILL 1 DROP IN BOTH EYES DAILY BEFORE DINNER, # 2.5 mL, 0 Refills, [facility] [id number], 18, INSTILL 1 DROP IN BOTH EYES DAILY BEFORE DINNER, 158, cm, 04/14/21 11:28:00 EDT, Height, 98.6, kg, 04/11/21 15:59:00 EDT, Dry Weight Start Date: 04/14/21 Status: Ordered Lipitor 40 mg oral tablet 1 tablet = 40 mg, By Mouth, Daily, # 30 tablet, 5 Refills, Maintenance, 04/28/21 6:50:00 EDT, Tablet, [facility]/pharmacy #[id number], Partial fill upon [...] 12/06/20 13:03:00 EDT, [facility] 0 Refills, Maintenance, 03/15/21 12:38:00 EDT, Tablet, [facility]/pharmacy #[id number], Partial fill... Start Date: 03/15/21 Status: Ordered rOPINIRole 0.5 mg oral tablet 1 tablet, By Mouth, 4 times a day, # 360 tablet, 1 Refills, [id number], 159, cm, 11/14/21 9:20:00 EDT, Height, 98, kg, 07/06/21 19:57:00 EST, Dry Weight Start Date: 11/22/21 Status: Ordered spironolactone 25 mg oral tablet 25 mg, 1, tablet, By Mouth, 2 times a day, # 180 tablet, Refills 3, Tot. Refills 3, Maintenance, 11/14/21 9:55:00 EDT, Route to Pharmacy Electronically, [facility]/pharmacy #[id number], Partial fill upon patient request if the prescription is for a schedule II opi... Start Date: 11/14/21 Stop Date: 11/09/22 Status: Ordered torsemide 20 mg oral tablet 2 tablet = 40 mg, By Mouth, Daily, # 90 tablet, 1 Refills, 12/13/21 10:45:00 EDT, [facility]/pharmacy #[id number], 159, cm, 12/13/21 10:22:00 EDT, Height, [...]
--- OUTSIDE RECORDS SUMMARY | 2024-02-08 01:09 | XMS_ITS | Continuity of Care Document ---
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 [place] Date(s): 04/15/21 - 05/26/21 [facility] [address] [place] [address]- Attending Physician: Mick Tatum MD Allergies, Adverse [...] 04/27/21 13:28:00 EDT, Route to Pharmacy Electronically, [facility]/pharmacy #[id number], Partial fill upon patient request if the prescription... Start Date: 04/27/21 Stop Date: 10/24/21 Status: Ordered aspirin 81 mg oral delayed release tablet 81 mg, 1, tablet, By Mouth, Daily, # 30 tablet, Refills 5, Tot. Refills 5, Maintenance, 10/24/21 13:28:00 EDT, Route to Pharmacy Electronically, [facility]/pharmacy #[id number], Partial fill upon patient request if the prescription is for a schedule II opioid drug... Start Date: 10/24/21 Stop Date: 04/22/22 Status: Ordered atorvastatin 40 mg oral tablet 1 tablet, By Mouth, Daily at bedtime, for 90 days, # 90 tablet, 3 Refills, Physician Stop 04/20/22 16:32:00 EDT, 04/25/21 16:32:00 EDT, [facility]/pharmacy #[id number], 158, cm, 04/25/21 14:49:00 EDT, [...] 0 Refills, Maintenance, 03/23/21 9:41:00 EDT, Solution, [facility]/pharmacy #[id number], Partial fill upon patient request if the prescription is for a schedule II opioid drug., 1 drops Eyes, Both 2 times a day, 159, cm... Start Date: 03/23/21 Status: Ordered [facility] ASPIRIN EC 81 MG TABLET [facility] ASPIRIN EC 81 MG TABLET, 1, tablet, By Mouth, Daily, # 30 tablet, 0 Refills, 158, cm, 04/14/21 11:28:00 EDT, Height, 98.6, kg, 04/11/21 15:59:00 EDT, Dry Weight Start Date: 04/22/21 Status: Ordered diclofenac 1% topical gel 1 application, Topically, 4 times a day, # 100 Gm, 5 Refills, Maintenance, 10/07/19 10:56:00 EDT, Gel, [facility]/pharmacy #[id number], 160, cm, 08/19/19 8:02:00 EST, Height Start Date: 10/07/19 Status: Ordered Eliquis 5 mg oral tablet 1 tablet, By Mouth, 2 times a day, # 180 tablet, 3 Refills, Maintenance, 07/12/20 14:12:00 EST, [id number], 157, cm, 05/07/20 11:34:00 EDT, Height, 91, kg, 02/28/20 22:14:00 EDT, Dry Weight Start Date: 07/12/20 Status: Ordered gabapentin 400 mg oral capsule See Instructions, 2 capsule By Mouth 3 times a day, # 180 capsule, Refills 0, Tot. Refills 0, Maintenance, 03/16/21 10:36:00 EDT, Instructions Replace Required Details, Route to Pharmacy Electronically, [facility]/pharmacy #[id number], Partial fill upon patient re... Start Date: 03/16/21 Status: Ordered HYDROmorphone 2 mg oral tablet 1 tablet = 2 mg, By Mouth, Every 12 hours, PRN Pain , Severe, Dx: Severe lumbar degen disc disease,# 12 tablet, 0 Refills, Acute 06/02/21 13:00:00 EST, 05/26/21 12:52:00 EDT, [facility]/pharmacy #[id number], Partial fill upon patient request if the prescription i... Start Date: 05/26/21 Stop Date: 06/02/21 Status: Ordered isosorbide mononitrate 30 mg oral tablet, extended release 1 tablet, By Mouth, Daily, for 90 days, # 90 tablet, 3 Refills, Physician Stop 04/20/22 16:32:00 EDT, 04/25/21 16:32:00 EDT, [facility]/pharmacy #[id number], 158, cm, 04/25/21 14:49:00 EDT, Height, 98.6, kg, 04/11/21 15:59:00 EDT, Dry Weight Start Date: 04/25/21 Stop Date: 04/20/22 Status: Ordered latanoprost 0.005% ophthalmic solution See Instructions, INSTILL 1 DROP IN BOTH EYES DAILY BEFORE DINNER, # 2.5 mL, 0 Refills, [facility] [id number], 18, INSTILL 1 DROP IN BOTH EYES DAILY BEFORE DINNER, 158, cm, 04/14/21 11:28:00 EDT, Height, 98.6, kg, 04/11/21 15:59:00 EDT, Dry Weight Start Date: 04/14/21 Status: Ordered Lipitor 40 mg oral tablet 1 tablet = 40 mg, By Mouth, Daily, # 30 tablet, 5 Refills, Maintenance, 04/28/21 6:50:00 EDT, Tablet, [facility]/pharmacy #[id number], Partial fill upon patient request [...] 12/06/20 13:03:00 EDT, Route to Pharmacy Electronically, [facility]/pharmacy #[id number], Partial fill upon patient request [...] 0 Refills, Maintenance, 03/15/21 12:38:00 EDT, Tablet, [facility]/pharmacy #[id number], Partial fill... Start Date: 03/15/21 [...] 2 Refills, Maintenance, 05/26/21 12:47:00 EDT, Tablet, [facility]/pharmacy #[id number], Partial fill upon patient request if the prescription is for a schedule II opioid drug., 158, cm, 04/25/21 14:49:00 EDT, Height,... Start Date: 05/26/21 Status: Ordered thiamine 100 mg oral tablet 100 mg, 1, tablet, By Mouth, Daily, for 30 days, # 30 tablet, Refills 5, Tot. Refills 5, Acute 11/10/21 12:51:00 EDT, 05/14/21 12:51:00 EDT, Route to Pharmacy Electronically, [facility]/pharmacy #[id number], Partial fill upon patient request if the prescription is... Start Date: 05/14/21 Stop Date: 11/10/21 Status: Ordered torsemide 20 mg oral tablet 1 tablet = 20 mg, By Mouth, Daily, # 30 tablet, 5 Refills, Maintenance, 05/10/21 4:19:00 EDT, Tablet, [facility]/pharmacy #[id number], Partial fill upon patient request [...] moderate(Confirmed) Active Need for influenza vaccination(Confirmed) Active Obesity(Confirmed) Active Osteoarthritis(Confirmed) 2 Active (Confirmed) Active Restless leg syndrome(Confirmed) Active Rosacea(Confirmed) Active Sarcoidosis(Confirmed) Active Peripheral sensory neuropathy(Confirmed) Active Ulcerative colitis(Confirmed) Active Vertigo(Confirmed) Active 1RT LEG 2BILATERAL KNEES Social History Social History Type Response Smoking Status Never (less than 100 in lifetime) entered on: 06/27/18 Sex
--- OUTSIDE RECORDS SUMMARY | 2024-02-08 01:09 | XMS_ITS | Continuity of Care Document ---
Author Organization [facility] Address [address] [place] [address] yvette, [address] [place] [address]- Care Team Providers Care Snagger Name Role Phone Mick Tatum MD Primary Care Physician [phone] Encounter [facility] Date(s): 06/22/23 - 06/29/23 [facility] [address] [place] [address] Drive, [address] [place], [place] [address] Attending Physician: Mark Tovar MD Referring Physician: Not on Staff, Referring [...] 09/23/20 Given SARS-CoV-2 (COVID-19) mRNA BNT-162b2 vac 2/11/21 Given pneumococcal 23-valent vaccine 2 07/23/11 Recorded pneumococcal 13-valent vaccine 3 07/23/10 Recorded tetanus/diphtheria/pertussis, acel(Tdap) 4 07/23/08 Recorded tetanus-diphtheria toxoids (Td) 5 07/23/96 Recorde juan pablo 1[facility]homeult Comment: [id number] 2Location History: DR LOAIZA 3Location History: DR LOAIZA 4Location History: DR LOAIZA 5Location History: DR LOAIZA Medications atorvastatin 40 mg oral tablet 1 tablet, By Mouth, Daily at bedtime, # 90 tablet, 1 Refills, Maintenance, 05/04/23 6:30:00 EDT, [facility], 157, cm, 03/21/23 14:39:00 EDT, Height, 94.3, [...] Gm, 1 Refills, Maintenance, 06/29/23 16:21:00 EST, [facility]/pharmacy #[id number], Partial safia... Start Date: 06/29/23 Status: Ordered Diflucan 150 mg oral tablet See Instructions, 1/2 tablet every 3 days for 12 days, # 2 tablet, 0 Refills, Soft Stop, 05/31/23 7:14:00 EST, [facility]/pharmacy #[id number], Partial fill upon patient request if the prescription is for a schedule II opioid drug., 157, cm, 05/31/23 6:38:00 EST,... Start Date: 05/31/23 Status: Ordered duloxetine 20 mg oral enteric coated capsule 1 capsule = 20 mg, By Mouth, Daily at bedtime, # 30 capsule, 2 Refills, Maintenance, 06/28/23 12:37:00 EST, [facility]/pharmacy #[id number], Partial fill upon patient request if the prescription is for a scheduleII opioid drug., 157, cm, 06/27/23 16:10:00 EST, [facility] Start Date: 06/28/23 Status: Ordered Eliquis 5 mg oral tablet 1 tablet, By Mouth, 2 times a day, # 180 tablet, 3 Refills, Maintenance, 06/15/23 1:44:00 EST, [facility], 157, cm, 05/31/23 6:38:00 EST, Height, 94.3, kg, 01/19/22 4:25:00 EDT, Dry Weight Start Date: 06/15/23 Status: Ordered HYDROmorphone 2 mg oral tablet 1 tablet = 2 mg, By Mouth, Every 6 hours, PRN Pain , Severe, Dx: M51.36, # 28 tablet, 0 Refills, Acute 11/18/23 15:27:00 EDT, 07/19/23 15:25:00 EST, [facility]/pharmacy #[id number], Partial fill upon patient request if the prescription is for a schedule II opioid... Start Date: 07/19/23 Stop Date: 11/18/23 Status: Ordered isosorbide mononitrate 30 mg oral tablet, extended release 1 tablet, By Mouth, Daily, # 90 tablet, 3 Refills, Maintenance, 06/13/23 8:27:00 EST, [facility], 157, cm, 05/31/23 6:38:00 EST, Height, 94.3, kg, 01/19/22 4:25:00 EDT, Dry Weight Start Date: 06/13/23 Status: Ordered isosorbide mononitrate 60 mg oral tablet, extended release 1 tablet, By Mouth, 2 times a day, # 180 tablet, 3 Refills, Maintenance, 06/13/23 8:27:00 EST, [facility], 157, cm, 05/31/23 6:38:00 EST, Height, 94.3, kg, 01/19/22 4:25:00 EDT, Dry Weight Start Date: 06/13/23 Status: Ordered Jardiance 10 mg oral tablet 1 tablet, By Mouth, Daily in AM, # 90 tablet, 3 Refills, Maintenance, 06/04/23 8:09:00 EST, [facility], 157, cm, 05/31/23 6:38:00 EST, Height, 94.3, kg, 01/19/22 4:25:00 EDT, Dry Weight Start Date: 06/04/23 Stop Date: 09/02/23 Status: Ordered Metoprolol Succinate ER 25 mg oral tablet, extended release 1 tablet, By Mouth, Daily, # 90 tablet, 3 Refills, 09/30/22 20:06:00 EST, [facility]/pharmacy #[id number], 157, cm, 09/15/22 11:19:00 EST, Height, 94.3, kg, 01/19/22 4:25:00 EDT, Dry Weight Start Date: 09/30/22 Status: Ordered nitroglycerin 0.4 mg sublingual tablet 1 tablet = 0.4 mg, Sublingual, Every 5 minutes, PRN as needed for chest pain, not to exceed 3 doses/15 min--if pain persists, seek medical attention, # 100 tablet, 0 Refills, Maintenance, 12/19/22 9:51:00 EDT, Tablet, [facility]/pharmacy #[id number], Partial fill... Start Date: 12/19/22 Status: Ordered oxyCODONE 5 mg oral tablet 5 mg, 1, tablet, By Mouth, 2 times a day, PRN, # 56 tablet, Refills 0, Tot. Refills 0, Acute 06/28/24 12:36:00 EST, as needed for pain, 06/28/23 12:35:00 EST, Route to Pharmacy Electronically, [facility]/pharmacy #[id number], Partial fill upon patient request if t... Start Date: 06/28/23 Stop Date: 06/28/24 Status: Ordered pantoprazole 40 mg oral delayed release tablet 0 Refills, Maintenance, 03/21/23 14:39:00 EDT Start Date: 03/21/23 Status: Ordered rOPINIRole 0.5 mg oral tablet 1 tablet, By Mouth, 4 times a day, # 360 tablet, 1 Refills, Maintenance, 01/22/23 9:08:00 EDT, [facility], 157, cm, 12/28/22 14:14:00 EDT, Height, 94.3, kg, 01/19/22 4:25:00 EDT, Dry Weight Start Date: 01/22/23 Status: Ordered spironolactone 25 mg oral tablet 25 mg, 1, tablet, By Mouth, Daily, # 90 tablet, Refills 3, Tot. Refills 3, Maintenance, 10/09/22 15:42:00 EDT, Route to Pharmacy Electronically, [facility]/pharmacy #[id number], Partial fill upon patient request if the prescription is for a schedule II opioid drug... Start Date: 10/09/22 Stop Date: 10/04/23 Status: Ordered torsemide 20 mg oral tablet 2 tablet = 40 mg, By Mouth, Daily, for 90 days, # 180 tablet, 3 Refills, Physician Stop 07/26/23 8:14:00 EST, 07/31/22 8:14:00 EST, [facility]/pharmacy #[id number], 157, cm, 07/27/22 15:56:00 EST, Height, [...] oldest [Reference Range]: 1 Height 157.0 cm (06/22/23 9:22 AM) Weight 80 kg (06/22/23 9:22 AM) Body Mass Index [18.5-24.99 kg/m2] 32.46 kg/m2 *>HHI* (06/22/23 9:22 AM) Weight Obtained Via Patient/family state d (06/22/23 9:22 AM) Social History Social History Type Response [...] Muhammad RN Position: [facility] RN Supjulieth Member Role: Primary Care Nurse Name: Suleman Jones RN Position: [facility] RN Member Role: Primary Care Nurse Name: Kathy Medina RN Position: [facility] RN Member Role: Primary Care Nurse Name: Marguerite Wang RN Position: [facility] RN Member Role: Primary Care Nurse Name: Mick Tatum MD Position: [facility] Physician - Primary Care Member Role: PCP Address: Address: [address] [place] [address]- Name: Svitlana Clark RN Position: [facility] RN Member Role: Primary Care Nurse Name: Yoana Guevara RN Position: [facility] RN Member Role: Primary Care Nurse Name: Pierre Groves RN Position: [facility] RN Member Role: Primary Care Nurse Name: Carmen Murphy NP Position: [facility] PCO Associate Professional Member Role: Primary Care Nurse Address: Address: [address] [place] [address]- Name: Rylie Ordonez RN Position: [facility] AMB Nurse Member Role: Primary Care Nurse Name: Marisa Negrete RN Position: [facility] SN RN Member Role: Primary Care Nurse Name: Aditi Brown RN Position: [facility] RN Member Role: Primary Care Nurse Name: Chana Cazares RN Position: [facility] RN Member Role: Primary Care Nurse Name: Toshia Urbina RN Position: [facility] RN Member Role: Primary Care Nurse Name: Isabel Gray Position: [facility] Major General Member Role: Unit Receptionist Name: Aniyah Sloan RN Position: [facility] SN RN Member Role: Primary Care Nurse Name: Rosemary Ramon RN Position: [facility] OB RN Member Role: Primary Care Nurse Name: Sneha Newton RN Position: [facility] Hospital Molding Line Assistant Member Role: Primary Care Nurse Care Team Related Persons Name: CLAUDIA URBINA Address: home [address] [place] [address] Name: MARK RALPH Address: [address] [place] [address] Name: DONY CARCAMO Address: [address] [place] [address]
--- OUTSIDE RECORDS SUMMARY | 2024-02-08 01:09 | XMS_ITS | Continuity of Care Document ---
Author Organization [facility] Gopi Jose Address [address] [place] [address]- Care Team Providers Care Centrifugal Spinner Name Role Phone Rc CORDERO, Mick Clay Primary Care Physician [phone] Encounter [facility] Date(s): 02/02/21 - 03/04/21 [facility] Adult [address] [place] [address]- Attending Physician: Julia Haile Admitting Physician: AdmJulia [...] 09/20/20 14:38:00 EST, [facility], [facility] [...] 3 Refills, Maintenance, 07/12/20 14:12:00 EST, [facility], 157, cm, 05/07/20 11:34:00 EDT, Height, 91, [...] 0 Refills, Maintenance, 08/30/20 10:02:00 EST, Tablet, [facility]/pharmacy #[id number], Partial [...] 0 Refills, Maintenance, 11/25/20 12:14:00 EDT, Tablet, [facility]/pharmacy #[id number], Partial [...] tablet, 0 Refills,Soft Stop, 10/21/20 16:26:00 EDT, [facility]/pharmacy #[id number], Partial fill upon patient request if the [...]
--- OUTSIDE RECORDS SUMMARY | 2024-02-08 01:10 | XMS_ITS | Continuity of Care Document ---
Author Organization [facility] Address [address] [place], [place] [address]phylicia [address], [address] [place] [address]- Care Team Providers Care Purchaser Name Role Phone Rc CORDERO, Mick Clay Primary Care Physician Encounter [facility] [place] Date(s): 07/27/20 - 08/26/20 [facility] [address] [place] [address] Drive, [address] [place] [address]- Allergies, Adverse Reactions, Alerts Substance Reaction Severity [...] 8:48:00 EDT, Route to Pharmacy Electronically, [facility]/pharmacy #[id number], 157, cm, 03/11/20 12:49:00 EDT, [...] 3 Refills, Maintenance, 07/12/20 14:12:00 EST, [facility], 157, cm, 05/07/20 11:34:00 EDT, Height, 91, kg, 02/28/20 22:14:00 EDT, Dry Weight Start Date: 07/12/20 Status: Ordered gabapentin 400 mg oral capsule 400 mg, 1, capsule, By Mouth, 3 times a day, # 270 capsule, Refills 2, Tot. Refills 2, Maintenance,03/30/20 8:48:00 EDT, [id number], cm, 03/11/20 12:49:00 EDT, [...]
--- OUTSIDE RECORDS SUMMARY | 2024-02-08 01:10 | XMS_ITS | Continuity of Care Document ---
Author Organization [facility] Address [address] [place] [address]- Care Team Providers Care Field Traffic Investigator Name Role Phone Mick Tatum MD Primary Care Physician [phone] Encounter [facility] Date(s): 09/24/23 - 11/23/23 [facility] [address] [place] [address]- Attending Physician: La Monge MD Admitting Physician: La Monge MD Referring Physician: Mick Tatum MD Allergies, [...] 5 07/23/96 Recorde juan pablo 1[facility] Comment: [id number] 2Location History: DR LOAIZA 3Location History: DR LOAIZA 4Location History: DR LOAIZA 5Location History: DR LOAIZA Medications atorvastatin 40 mg oral tablet 1 tablet, By Mouth, Daily at bedtime, # 90 tablet, 1 Refills, Maintenance, 10/30/23 9:30:00 EDT, [facility], 157, cm, 10/26/23 13:58:00 EDT, Height, 94.3, [...] Gm, 1 Refills, Maintenance, 06/29/23 16:21:00 EST, [facility]/pharmacy #[id number], Partial safia... Start Date: 06/29/23 Status: Ordered duloxetine 20 mg oral enteric coated capsule 1 capsule, By Mouth, Daily at bedtime, # 90 capsule, 3 Refills, Maintenance, 09/26/23 5:28:00 EST, [facility], 157, cm, 09/18/23 11:23:00 EST, Height, 94.3, kg, 01/19/22 4:25:00 EDT, Dry Weight Start Date: 09/26/23 Status: Ordered Eliquis 5 mg oral tablet 1 tablet, By Mouth, 2 times a day, # 180 tablet, 3 Refills, Maintenance, 06/15/23 1:44:00 EST, [facility], 157, cm, 05/31/23 6:38:00 EST, Height, 94.3, kg, 01/19/22 4:25:00 EDT, Dry Weight Start Date: 06/15/23 Status: Ordered isosorbide mononitrate 60 mg oral tablet, extended release 1 tablet, By Mouth, 2 times a day, # 180 tablet, 3 Refills, Maintenance, 06/13/23 8:27:00 EST, [facility], 157, cm, 05/31/23 6:38:00 EST, Height, 94.3, kg, 01/19/22 4:25:00 EDT, Dry Weight Start Date: 06/13/23 Status: Ordered Jardiance 10 mg oral tablet 1 tablet, By Mouth, Daily in AM, # 90 tablet, 3 Refills, Maintenance, 06/04/23 8:09:00 EST, [facility], 157, cm, 05/31/23 6:38:00 EST, Height, 94.3, kg, 01/19/22 4:25:00 EDT, Dry Weight Start Date: 06/04/23 Stop Date: 09/02/23 Status: Ordered Metoprolol Succinate ER 25 mg oral tablet, extended release 1 tablet, By Mouth, Daily, # 30 tablet, 0 Refills, Maintenance, 11/12/23 8:09:00 EDT, [facility], 157, cm, 10/26/23 13:58:00 EDT, Height, 94.3, kg, 01/19/22 4:25:00 EDT, Dry Weight Start Date: 11/12/23 Status: Ordered nitroglycerin 0.4 mg sublingual tablet 1 tablet = 0.4 mg, Sublingual, Every 5 minutes, PRN as needed for chest pain, not to exceed 3 doses/15 min--if pain persists, seek medical attention, # 100 tablet, 0 Refills, Maintenance, 12/19/22 9:51:00 EDT, Tablet, [facility]/pharmacy #[id number], Partial fill... Start Date: 12/19/22 Status: Ordered oxyCODONE 5 mg oral tablet 5 mg, 1, tablet, By Mouth, 2 times a day, PRN, # 56 tablet, Refills 0, Tot. Refills 0, Acute 06/28/24 12:36:00 EST, as needed for pain, 06/28/23 12:35:00 EST, Route to Pharmacy Electronically, [facility]/pharmacy #[id number], Partial fill upon patient request if t... Start Date: 06/28/23 Stop Date: 06/28/24 Status: Ordered pantoprazole 40 mg oral delayed release tablet 0 Refills, Maintenance, 03/21/23 14:39:00 EDT Start Date: 03/21/23 Status: Ordered rOPINIRole 0.5 mg oral tablet 1 tablet, By Mouth, 4 times a day, # 360 tablet, 1 Refills, Maintenance, 09/17/23 7:52:00 EST, [facility], 157, cm, 08/14/23 10:05:00 EST, Height, 94.3, kg, 01/19/22 4:25:00 EDT, Dry Weight Start Date: 09/17/23 Status: Ordered spironolactone 25 mg oral tablet 25 mg, 1, tablet, By Mouth, 2 times a day, # 180 tablet, Refills 3, Tot. Refills 3, Maintenance, 08/27/23 12:45:00 EST, Route to Pharmacy Electronically, [facility]/pharmacy #[id number], Partial fill upon patientrequest if the prescription is for a schedule II op... Start Date: 08/27/23 Stop Date: 08/21/24 Status: Ordered torsemide 20 mg oral tablet 2 tablet, By Mouth, Daily, # 180 tablet, 3 Refills, Maintenance, 08/13/23 9:50:00 EST, [facility], 157, cm, 06/27/23 16:10:00 EST, Height, 94.3, [...] Team Personnel Name: Estrellita Putnam RN Position: [facility] RN Member Role: Primary Care Nurse Name: Marlen Kenny RN Position: [facility] RN Member Role: Primary Care Nurse Name: Toshia Muhammad RN Position: [facility] RN Martha Member Role: Primary Care Nurse Name: Suleman Jones RN Position: [facility] RN Member Role: Primary Care Nurse Name: Kathy Medina RN Position: [facility] RN Member Role: Primary Care Nurse Name: Marguerite Wang RN Position: [facility] RN Member Role: Primary Care Nurse Name: Mick Tatum MD Position: [facility] Physician - Primary Care Member Role: PCP Address: Address: [address] [place] [address]- Name: Svitlana Clark RN Position: [facility] RN Member Role: Primary Care Nurse Name: Yoana Guevara RN Position: [facility] RN Member Role: Primary Care Nurse Name: Pierre Groves RN Position: [facility] RN Member Role: Primary Care Nurse Name: Carmen Murphy NP Position: [facility] PCO Associate Professional Member Role: Primary Care Nurse Address: Address: [address] [place] [address]- [place] Name: Rylie Ordonez RN Position: [facility] RN Member Role: Primary Care Nurse Name: Marisa Negrete RN Position: [facility] AMB Nurse Member Role: Primary Care Nurse Name: Aditi Brown RN Position: [facility] Onco RN Member Role: Primary Care Nurse Name: Chana Cazares RN Position: [facility] RN Member Role: Primary Care Nurse Name: Toshia Urbina RN Position: [facility] RN Member Role: Primary Care Nurse Name: Isabel Gray Position: [facility] MA Ore Roaster Member Role: Rubber Stamp Assembler Name: Aniyah Sloan RN Position: [facility] SN RN Member Role: Primary Care Nurse Name: Rosemary Ramon RN Position: [facility] OB RN Member Role: Primary Care Nurse Name: Sneha Newton RN Position: [facility] Hospital Net Mobile Developer Member Role: Primary Care Nurse Care Team Related Persons Name: CLAUDIA URBINA Address: [address] [place] [address] Name: RALPH SÁNCHEZ Address: [address] [place] [address] Name: DONY CARCAMO Address: [address] [place] [address]
--- OUTSIDE RECORDS SUMMARY | 2024-02-08 01:10 | XMS_ITS | Continuity of Care Document ---
Author Organization [facility] Jose Address [address] [place] [address]- Care Team Providers Care Signals Analyst Name Role Phone Rc CORDERO, Mick Clay Primary Care Physician [phone] Encounter [facility] [place] Date(s): 03/08/21 - 03/15/21 [facility] Adult [address] [place] [address]- Attending Physician: Not on Staff, Attending MD [...] 03/30/20 8:48:00 EDT, Route to Pharmacy Electronically, [facility]/pharmacy #[id number], 157, cm, 03/11/20 12:49:00 EDT, Height, 91, kg, 02/28/20 22:14:00 EDT, Dry Weight Start Date: 03/30/20 Stop Date: 03/25/21 Status: Ordered aspirin 81 mg oral delayed release tablet 81 mg, 1, tablet, By Mouth, Daily, # 30 tablet, Refills 0, Tot. Refills 0, Maintenance, 03/15/21 12:35:00 EDT, Route to Pharmacy Electronically, [facility]/pharmacy #[id number], Partial fill upon patient [...] 5 Refills, Maintenance, 10/07/19 10:56:00 EDT, Gel, [facility]/pharmacy #[id number], 160, cm, 08/19/19 8:02:00 EST, Height Start Date: 10/07/19 Status: Ordered Eliquis 5 mg oral tablet 1 tablet, By Mouth, 2 times a day, # 180 tablet, 3 Refills, Maintenance, 07/12/20 14:12:00 EST, [facility], 157, cm, 05/07/20 11:34:00 EDT, Height, 91, kg, 02/28/20 22:14:00 EDT, Dry Weight Start Date: 07/12/20 Status: Ordered furosemide 20 mg oral tablet 20 mg, 1, tablet, By Mouth, Daily, # 30 tablet, Refills 0, Tot. Refills 0, Maintenance, 03/08/21 9:35:00 EDT, Route to Pharmacy Electronically, [facility]/pharmacy #[id number], Partial fill upon patient [...] a sched... Start Date: 09/27/20 Status: Ordered isosorbide mononitrate 30 mg oral tablet, extended release 1 tablet = 30 mg, By Mouth, Daily, # 30 tablet, 0 Refills, Maintenance, 03/15/21 12:37:00 EDT, ER Tablet, [facility]/pharmacy #[id number], Partial fill upon patient request if the prescription is for a schedule II opioid drug., 159, cm, 03/15/21 8:14:00 EDT, Heigh... Start Date: 03/15/21 Status: Ordered Lipitor 40 mg oral tablet 1 tablet = 40 mg, By Mouth, Daily at bedtime, # 30 tablet, 0 Refills, Maintenance, 03/15/21 12:37:00 EDT, Tablet, [facility]/pharmacy #[id number], Partial fill upon patient request if the prescription is for a schedule II opioid drug., 159, cm, 03/15/21 8:14:00 ED... Start Date: 03/15/21 Status: Ordered metoprolol 25 mg oral tablet, extended release 25 mg, 1, tablet, By Mouth, Daily, # 30 tablet, Refills 5, Tot. Refills 5, Maintenance, 12/06/20 13:03:00 EDT, Route to Pharmacy Electronically, [facility]/pharmacy #[id number], Partial fill upon patient [...] 0 Refills, Maintenance, 03/15/21 12:38:00 EDT, Tablet, [facility]/pharmacy #[id number], Partial fill... Start Date: [...] oldest [Reference Range]: 1 Height 157 cm (03/08/21 8:26 AM) Oxygen Saturation [94-100 %] 97 % (03/08/21 8:26 AM) Pulse Rate [55-90 bpm] 90 bpm (03/08/21 8:26 AM) Blood Pressure [90-138/55-84 mm Hg] 130/ 80mm Hg (03/08/21 8:26 AM) Temperature [96.8-100.4 DegF] 98.9 DegF (03/08/21 8:26 AM) Mode of Delivery (Oxygen) Room air (03/08/21 8:26 AM) Blood pressure sites Arm, left (03/08/21 8:26 AM) Temperature Route Oral (03/08/21 8:26 AM) Social History Social History Type Response Smoking Status Never (less than 100 in lifetime) entered on: 06/27/18 Sex Female
--- OUTSIDE RECORDS SUMMARY | 2024-02-08 01:10 | XMS_ITS | Continuity of Care Document ---
Author Organization [facility] Jose Address [address] [place] [address]- Care Team Providers Care Soap Slabber Name Role Phone Mick Tatum MD Primary Care Physician [phone] [place] [facility] [place] 07/28[place]20 - 08/04/20 [facility] Adult [address] [place] [address]- Attending Physician: Mick Tatum MD Allergies, Adverse [...] 03/30/20 8:48:00 EDT, Route to Pharmacy Electronically, [facility]/pharmacy #[id number], 157, cm, 03/11/20 12:49:00 EDT, Height, [...] 5 Refills, Maintenance, 10/07/19 10:56:00 EDT, Gel, [facility]/pharmacy #[id number], 160, cm, 08/19/19 8:02:00 EST, Height Start Date: 10/07/19 Status: Ordered Eliquis 5 mg oral tablet 1 tablet, By Mouth, 2 times a day, # 180 tablet, 3 Refills, Maintenance, 07/12/20 14:12:00 EST, [facility], 157, cm, 05/07/20 11:34:00 EDT, Height, 91, kg, 02/28/20 22:14:00 EDT, Dry Weight Start Date: 07/12/20 Status: Ordered gabapentin 400 mg oral capsule 400 mg, 1, capsule, By Mouth, 3 times a day, # 270 capsule, Refills 2, Tot. Refills 2, Maintenance,03/30/20 8:48:00 EDT, [facility] to [id number], cm, 03/11/20 12:49:00 EDT, Height, 91, kg, 02/28/20 22:14:00 EDT, Dry... Start Date: 03/30/20 Stop Date: 12/25/20 Status: Ordered HYDROmorphone 2 mg oral tablet 1 tablet = 2 mg, By Mouth, Every 8 hours, PRN as needed for pain, # 20 tablet, 0 Refills, Maintenance, 07/14/20 8:36:00 EST, Tablet, [facility]/pharmacy #[id number], Partial fill upon patient request, 157, [...] oldest [Reference Range]: 1 Height 157 cm (07/28/20 10:10 AM) Weight 90.9 kg (07/28/20 10:10 AM) Oxygen Saturation [94-100 %] 98 % (07/28/20 10:10 AM) Pulse Rate [55-90 bpm] 78 bpm (07/28/20 10:10 AM) Body Mass Index [18.5-24.99] 36.88 *>HHI* (07/28/20 10:10 AM) Blood Pressure [90-138/55-84 mm Hg] 130/ 80mm Hg (07/28/20 10:10 AM) Temperature [96.8-100.4 DegF] 98.0 DegF (07/28/20 10:10 AM) Blood pressure sites Arm, left (07/28/20 10:10 AM) Temperature Route Oral (07/28/20 10:10 AM) Weight Obtained Via Standing scale (07/28/20 10:10 AM) Social History Social History Type Response Smoking Status Never (less than 100 in lifetime) entered on: 06/27/18 Sex
--- OUTSIDE RECORDS SUMMARY | 2024-02-08 01:10 | XMS_ITS | Continuity of Care Document ---
Author Organization [facility] Jose lt Address [address] [place] [address]- Care Team Providers Care Architectural Engineer Name Role Phone Rc CORDERO, Mick Clay Primary Care Physician [place] [facility] [place]21 [facility] Adult [address] [place] [address]- Allergies, Adverse Reactions, Alerts Substance Reaction Severity [...] 13:28:00 EDT, Route to Pharmacy Electronically, [facility]/pharmacy #[id number], Partial fill upon patient request if the prescription... Start Date: 04/27/21 Stop Date: 10/24/21 Status: Ordered aspirin 81 mg oral delayed release tablet 81 mg, 1, tablet, By Mouth, Daily, # 30 tablet, Refills 5, Tot. Refills 5, Maintenance, 10/24/21 13:28:00 EDT, Route to Pharmacy Electronically, [facility]/pharmacy #[id number], Partial fill upon patient request if the prescription is for a schedule II opioid drug... Start Date: 10/24/21 Stop Date: 04/22/22 Status: Ordered atorvastatin 40 mg oral tablet 1 tablet, By Mouth, Daily at bedtime, for 90 days, # 90 tablet, 3 Refills, Physician Stop 04/20/22 16:32:00 EDT, 04/25/21 16:32:00 EDT, [facility]/pharmacy #[id number], 158, cm, 04/25/21 14:49:00 EDT, [...] Refills, Maintenance, 03/23/21 9:41:00 EDT, Solution, [facility]/pharmacy #[id number], Partial fill upon patient request if the prescription is for a schedule II opioid drug., 1 drops Eyes, Both 2 times a day, 159, cm... Start Date: 03/23/21 Status: Ordered [facility] ASPIRIN EC 81 MG TABLET [facility] ASPIRIN EC 81 MG TABLET, 1, tablet, By Mouth, Daily, # 30 tablet, 0 Refills, 158, cm, 04/14/21 11:28:00 EDT, Height, 98.6, kg, 04/11/21 15:59:00 EDT, Dry Weight Start Date: 04/22/21 Status: Ordered diclofenac 1% topical gel 1 application, Topically, 4 times a day, # 100 Gm, 5 Refills, Maintenance, 10/07/19 10:56:00 EDT, Gel, [facility]/pharmacy #[id number], 160, cm, 08/19/19 8:02:00 EST, Height Start Date: 10/07/19 Status: Ordered Eliquis 5 mg oral tablet 1 tablet, By Mouth, 2 times a day, # 180 tablet, 3 Refills, Maintenance, 07/12/20 14:12:00 EST, [id number], 157, cm, 05/07/20 11:34:00 EDT, Height, 91, kg, 02/28/20 22:14:00 EDT, Dry Weight Start Date: 07/12/20 Status: Ordered gabapentin 400 mg oral capsule See Instructions, 2 capsule By Mouth 3 times a day, # 180 capsule, Refills 0, Tot. Refills 0, Maintenance, 03/16/21 10:36:00 EDT, Instructions Replace Required Details, Route to Pharmacy Electronically, [facility]/pharmacy #[id number], Partial fill upon patient re... Start Date: 03/16/21 Status: Ordered isosorbide mononitrate 30 mg oral tablet, extended release 1 tablet, By Mouth, Daily, for 90 days, # 90 tablet, 3 Refills, Physician Stop 04/20/22 16:32:00 EDT, 04/25/21 16:32:00 EDT, [facility]/pharmacy #[id number], 158, cm, 04/25/21 14:49:00 EDT, Height, 98.6, kg, 04/11/21 15:59:00 EDT, Dry Weight Start Date: 04/25/21 Stop Date: 04/20/22 Status: Ordered latanoprost 0.005% ophthalmic solution See Instructions, INSTILL 1 DROP IN BOTH EYES DAILY BEFORE DINNER, # 2.5 mL, 0 Refills, [id number], 18, INSTILL 1 DROP IN BOTH EYES DAILY BEFORE DINNER, 158, cm, 04/14/21 11:28:00 EDT, Height, 98.6, kg, 04/11/21 15:59:00 EDT, Dry Weight Start Date: 04/14/21 Status: Ordered Lipitor 40 mg oral tablet 1 tablet = 40 mg, By Mouth, Daily, # 30 tablet, 5 Refills, Maintenance, 04/28/21 6:50:00 EDT, Tablet, [facility]/pharmacy #[id number], Partial fill upon patient request [...] 13:03:00 EDT, Route to Pharmacy Electronically, [facility]/pharmacy #[id number], Partial fill upon patient request if the prescription is for a schedule II opioid drug... Start Date: 12/06/20 Stop Date: 06/04/21 Status: Ordered Metoprolol Succinate ER 25 mg oral tablet, extended release 1 tablet, By Mouth, Daily, # 90 tablet, 2 Refills, [id number], 158, cm, 04/25/21 14:49:00 EDT,Height, 98.6, kg, 04/11/21 15:59:00 EDT, Dry Weight Start Date: 06/01/21 Status: Ordered nitroglycerin 0.4 mg sublingual tablet 1 tablet = 0.4 mg, Sublingual, Every 5 minutes, PRN as needed for chest pain, not to exceed 3 doses/15 min--if pain persists, seek medical attention, # 100 tablet, 0 Refills, Maintenance, 03/15/21 12:38:00 EDT, Tablet, [facility]/pharmacy #[id number], Partial fill... Start Date: 03/15/21 [...] Refills, Maintenance, 05/26/21 12:47:00 EDT, Tablet, [facility]/pharmacy #[id number], Partial fill upon patient request if the prescription is for a schedule II opioid drug., 158, cm, 04/25/21 14:49:00 EDT, Height,... Start Date: 05/26/21 Status: Ordered thiamine 100 mg oral tablet 100 mg, 1, tablet, By Mouth, Daily, for 30 days, # 30 tablet, Refills 5, Tot. Refills 5, Acute 11/10/21 12:51:00 EDT, 05/14/21 12:51:00 EDT, Route to Pharmacy Electronically, [facility]/pharmacy #[id number], Partial fill upon patient request if the prescription is... Start Date: 05/14/21 Stop Date: 11/10/21 Status: Ordered torsemide 20 mg oral tablet 1 tablet = 20 mg, By Mouth, Daily, # 30 tablet, 5 Refills, Maintenance, 05/10/21 4:19:00 EDT, Tablet, [facility]/pharmacy #[id number], Partial fill upon patient request if the prescription is for a schedule II opioid drug., 158, cm, 04/25/21 14:49:00 EDT, Height,... Start Date: 05/10/21 Status: Ordered Vitamin D2 50,000 intl units (1.25 mg) oral capsule 1 capsule = 50,000 International_Units, By Mouth, Every , # 8 capsule, 0 Refills, Maintenance, 04/14/21 12:50:00 EDT, [facility]/pharmacy #[id number], Partial fill upon patient request [...]
--- OUTSIDE RECORDS SUMMARY | 2024-02-08 01:10 | XMS_ITS | Continuity of Care Document ---
Author Organization [facility] Jose lt Address [address] [place] [address]- Care Team Providers Care Black Leather Buffer Name Role Phone Mick Tatum MD Primary Care Physician [place] [facility] [place] Date(s): 06/28/21 - 07/05/21 [facility] Adult [address] [place] [address]- Attending Physician: Mick Tatum MD Allergies, Adverse [...] # 90 tablet, 1 Refills, [facility], 159, cm, 03/23/21 9:06:00 EDT, Height, 100.2, [...] a day, # 180 tablet, 3 Refills, [facility], 158, cm, 06/09/21 10:14:00 EST, Height, 98.6, kg, 04/11/21 15:59:00 EDT, Dry Weight Start Date: 06/17/21 Status: Ordered empagliflozin 10 mg oral tablet 1 tablet = 10 mg, By Mouth, Daily in AM, # 90 tablet, 3 Refills, Maintenance, 06/09/21 12:06:00 EST, Tablet, [facility]/pharmacy #[id number], Partial fill upon patient request if the prescription is for a schedule II opioid drug., 158, cm, 06/09/21 10:14:00 EST, H... Start Date: 06/09/21 Stop Date: 06/04/22 Status: Ordered gabapentin 400 mg oral capsule 2, capsule, By Mouth, 3 times a day, # 180 capsule, Refills 0, Route to Pharmacy Electronically, [id number], 158, cm, 06/09/21 10:14:00 EST, Height, 98.6, kg, 04/11/21 15:59:00 EDT, Dry Weight Start Date: 06/23/21 Status: Ordered HYDROmorphone 2 mg oral tablet 1 tablet = 2 mg, By Mouth, Every 12 hours, PRN Pain , Severe, Dx: Severe lumbar degen disc disease,# 12 tablet, 0 Refills, Acute 07/17/21 8:24:00 EST, 06/17/21 8:24:00 EST, [facility]/pharmacy #[id number], Partial fill upon patient request if the prescription is... Start Date: 06/17/21 Stop Date: 07/17/21 Status: Ordered HYDROmorphone 2 mg oral tablet 1 tablet = 2 mg, By Mouth, Every 12 hours, PRN Pain , Severe, Dx: Severe lumbar degen disc disease,# 12 tablet, 0 Refills, Acute 07/29/21 16:56:00 EST, 07/17/21 8:24:00 EST, [facility]/pharmacy #[id number], Partial fill upon [...] # 2.5 mL, 0 Refills, [facility], 18, INSTILL 1 DROP IN BOTH EYES [...] Mouth, Daily, # 90 tablet, 2 Refills, [facility], 158, cm, 04/25/21 14:49:00 EDT,Height, 98.6, kg, [...]
--- OUTSIDE RECORDS SUMMARY | 2024-02-08 01:10 | XMS_ITS | Continuity of Care Document ---
Author Organization [facility] Address [address] [place], [place] [address]phylicia yvette, [address] [place] [address]- Care Team Providers Care Outside Sales Engineer Name Role Phone Rc CORDERO, Mick Clay Primary Care Physician [place] [facility] [place] 06/23/20 [place] 07/23/20 [facility] [address] [place] [address] Drive, [address] [place] [address]- Attending Physician: Julia Haile Admitting Physician: AdmJulia [...] 03/30/20 8:48:00 EDT, [id number], cm, 03/11/20 12:49:00 EDT, Height, 91, kg, 02/28/20 22:14:00 EDT, Dry Weight Start Date: 03/30/20 Stop Date: 03/25/21 Status: Ordered Cosopt ophthalmic solution 1 drops, Eyes, Both, 2 times a day, 0 Refills Start Date: 02/09/09 Status: Ordered diclofenac 1% topical gel 1 application, Topically, 4 times a day, # 100 Gm, 5 Refills, Maintenance, 10/07/19 10:56:00 EDT, Gel, [id number] 160, cm, 08/19/19 8:02:00 EST, Height Start Date: 10/07/19 Status: Ordered Eliquis 5 mg oral tablet 1 tablet, By Mouth, 2 times a day, # 180 tablet, 3 Refills, Maintenance, 07/12/20 14:12:00 EST, [facility], 157, cm, 05/07/20 11:34:00 EDT, Height, 91, kg, 02/28/20 22:14:00 EDT, Dry Weight Start Date: 07/12/20 Status: Ordered gabapentin 400 mg oral capsule 400 mg, 1, capsule, By Mouth, 3 times a day, # 270 capsule, Refills 2, Tot. Refills 2, Maintenance,03/30/20 8:48:00 EDT, [id number], cm, 03/11/20 12:49:00 [...]
--- OUTSIDE RECORDS SUMMARY | 2024-02-08 01:10 | XMS_ITS | Continuity of Care Document ---
Author Organization [facility] Address [address] [place] [address]- Care Team Providers Care Staff Internist Office Based Only Name Role Phone Mick Tatum MD Primary Care Physician [phone] [place] [facility] [place] [facility] [address] [place] [address] [place] Allergies, Adverse Reactions, Alerts Substance Reaction [...] Given Parent Or Guardian Refuses 1Result Comment: [id number] 2Location History: DR LOAIZA 3Location History: DR LOAIZA 4Location History: DR LOAIZA 5Location History: DR LOAIZA Medications atorvastatin 40 mg oral tablet 1 tablet, By Mouth, Daily at bedtime, # 90 tablet, 3 Refills, Maintenance, 05/13/22 7:24:00 EDT, [facility], 157, cm, 05/12/22 13:47:00 EDT, Height, 94.3, [...] 3 Refills, Maintenance, 05/27/22 16:57:00 EDT, [facility], 157, cm, 05/12/22 13:47:00 EDT, Height, 94.3, kg, 01/19/22 4:25:00 EDT, Dry Weight Start Date: 05/27/22 Status: Ordered empagliflozin 10 mg oral tablet 1 tablet = 10 mg, By Mouth, Daily in AM, # 90 tablet, 3 Refills, Maintenance, 06/09/22 12:36:00 EST, Tablet, [facility]/pharmacy #[id number], Partial fill upon patient request if the prescription is for a schedule II opioid drug., 157, cm, 05/12/22 13:47:00 EDT, H... Start Date: 06/09/22 Stop Date: 06/04/23 Status: Ordered gabapentin 400 mg oral capsule 2, capsule, By Mouth, 3 times a day, # 180 capsule, Refills 5, Tot. Refills 5, Maintenance, 08/28/22 15:05:00 EST, Route to Pharmacy Electronically, [facility]/pharmacy #[id number], 157, cm, 07/27/22 15:56:00 EST, Height, 94.3, kg, 01/19/22 4:25:00 EDT, Dry Weight Start Date: 08/28/22 Status: Ordered HYDROmorphone 2 mg oral tablet 1 tablet = 2 mg, By Mouth, Every 6 hours, PRN Pain , Severe, # 20 tablet, 0 Refills, Acute 11/13/2311:15:00 EDT, 10/12/22 12:15:00 EDT, [facility]/pharmacy #[id number], Partial fill upon [...] BEFORE DINNER, # 2.5 mL, 0 Refills, [facility] 18[facility], 18, INSTILL 1 DROP IN BOTH EYES DAILY BEFORE DINNER, 158, cm, 04/14/21 11:28:00 EDT, Height, 98.6, kg, 04/11/21 15:59:00 EDT, Dry Weight Start Date: 04/14/21 Status: Ordered Metoprolol Succinate ER 25 mg oral tablet, extended release 1 tablet, By Mouth, Daily, # 90 tablet, 3 Refills, 09/30/22 20:06:00 EST, [facility]/pharmacy #[id number], 157, cm, 09/15/22 11:19:00 [...] tablet, 1 Refills, Maintenance, 07/25/22 9:33:00 EST, [facility] 57[facility], 157, cm, 07/10/22 15:50:00 EST, Height, 94.3, kg, 01/19/22 4:25:00 EDT, Dry Weight Start Date: 07/25/22 Status: Ordered spironolactone 25 mg oral tablet 25 mg, 1, tablet, By Mouth, Daily, # 90 tablet, Refills 3, Tot. Refills 3, Maintenance, 10/09/22 15:42:00 EDT, [facility] Stop 05/15/23 16:05:00 EDT, 05/20/22 16:05:00 EDT, [facility]/pharmacy #[id number], 157, cm, 05/12/22 13:47:00 EDT, Height, 94.3,kg, 01/19/22 4:25:00 EDT, Dry Weight Start Date: 05/20/22 Stop Date: 05/15/23 Status: Ordered Vitamin B1 100 mg oral tablet 100 mg, 1, tablet, By Mouth, Daily, # 90 tablet, Refills 3, Tot. Refills 3, Acute 05/20/23 16:10:00EDT, 05/20/22 16:10:00 EDT, Route to Pharmacy Electronically, [facility]/pharmacy #[id number], Partial fill uponpatient request [...] Personnel Name: Lisa Carlson RN Position: [facility] RN Member Role: Primary Care Nurse Name: Estrellita Putnam RN Position: [facility] RN Member Role: Primary Care Nurse Name: Marlen Kenny RN Position: [facility] RN Member Role: Primary Care Nurse Name: Toshia Muhammad RN Position: [facility] RN Martha Member Role: Primary Care Nurse Name: Suleman Jones RN Position: [facility] RN Member Role: Primary Care Nurse Name: Kathy Medina RN Position: [facility] RN Member Role: Primary Care Nurse Name: Lesli Mercedes RN Position: [facility] RN Member Role: Primary Care Nurse Name: Marguerite Wang RN Position: [facility] RN Member Role: Primary Care Nurse Name: Mick Tatum MD Position: [facility] Primary Care Physician Member Role: PCP Address: Address: [address] [place] [id number] Name: Svitlana Clark RN Position: [facility] RN Member Role: Primary Care Nurse Name: Yoana Guevara RN Position: [facility] RN Member Role: Primary Care Nurse Name: Pierre Groves RN Position: [facility] RN Member Role: Primary Care Nurse Name: Carmen Murphy RN Position: [facility] RN Member Role: Primary Care Nurse Name: Rylie Ordonez RN Position: [facility] [place] RN Member Role: Primary Care Nurse Name: Aditi Brown RN Position: [facility] RN Member Role: Primary Care Nurse Name: Chana Cazares RN Position: [facility] RN Member Role: Primary Care Nurse Name: Toshia Urbina RN Position: [facility] RN Member Role: Primary Care Nurse Name: Aniyah Sloan RN Position: [facility] SN RN Member Role: Primary Care Nurse Name: Rosemary Ramon RN Position: [facility] OB RN Member Role: Primary Care Nurse Name: Sneha Newton RN Position: [facility] Military Pay Clerk Member Role: Primary Care Nurse Care Team Related Persons Name: CLAUDIA URBINA Address: [address] [place] [address] Name: RALPH SÁNCHEZ Address: [address] [place] [address] Name: DONY CARCAMO Address: [address] [place] [address]
--- OUTSIDE RECORDS SUMMARY | 2024-02-08 01:10 | XMS_ITS | Continuity of Care Document ---
Author Organization [facility] Jose lt Address [address] [place] [address]- Care Team Providers Care Nurse Chemical Dependency Name Role Phone Rc CORDERO, Mick Clay Primary Care Physician En[place] [facility] [place] 06/29/20 - 07/29/20 [facility] Adult [address] [place] [address]- Allergies, Adverse Reactions, Alerts Substance Reaction Severity [...] 3 Refills, Maintenance, 07/12/20 14:12:00 EST, [facility], 157, cm, 05/07/20 11:34:00 EDT, Height, 91, kg, 02/28/20 22:14:00 EDT, Dry Weight Start Date: 07/12/20 Status: Ordered gabapentin 400 mg oral capsule 400 mg, 1, capsule, By Mouth, 3 times a day, # 270 capsule, Refills 2, Tot. Refills 2, Maintenance,03/30/20 8:48:00 EDT, [id number], cm, 03/11/20 12:49:00 EDT, [...]
--- OUTSIDE RECORDS SUMMARY | 2024-02-08 01:10 | XMS_ITS | Continuity of Care Document ---
Author Organization [facility] Jose lt Address [address] [place] [address]- Care Team Providers Care Systems Checkout Mechanic Name Role Phone Mick Tatum MD Primary Care Physician [phone] Encounter [facility] [place] Date(s): 02/02/22 - 03/04/22 [facility] Adult [address] [place] [address]- Attending Physician: Admtr, Julia Admitting Physician: Admtr, Julia Referring Physician: Admtr, Ar8 Allergies, Adverse Reactions, Alerts Substance Reaction Severity Status amoxicillin 1 Active Benadryl Shaking Active Other Environmental Allergy 2 Active Cats Active Contrast Dye Active Dust [...] 07/09/21 10:04:00 EST, [facility] [...] 10:56:00 EDT, Gel, [facility]/pharmacy #[id number], 160, cm, 08/19/19 8:02:00 EST, Height Start Date: 10/07/19 Status: Ordered Eliquis 5 mg oral tablet 1 tablet, By Mouth, 2 times a day, # 180 tablet, 3 Refills, [facility], 158, cm, 06/09/21 10:14:00 EST, Height, 98.6, kg, 04/11/21 15:59:00 EDT, Dry Weight Start Date: 06/17/21 Status: Ordered empagliflozin 10 mg oral tablet 1 tablet = 10 mg, By Mouth, Daily in AM, # 90 tablet, 3 Refills, Maintenance, 06/09/21 12:06:00 EST, Tablet, [facility]/pharmacy [...] 5, Route to Pharmacy Electronically, [facility], 159, cm, 12/21/21 15:41:00 EDT, Height, 93.6, kg, 01/06/22 9:12:00 EDT, Dry Weight Start Date: 01/17/22 Status: Ordered isosorbide mononitrate 30 mg oral tablet, extended release 1 tablet, By Mouth, Daily, for 90 days, # 90 tablet, 3 Refills, Physician Stop 04/20/22 16:32:00 EDT, 04/25/21 16:32:00 EDT, [facility]/pharmacy #[id number], 158, cm, 04/25/21 14:49:00 EDT, Height, 98.6, kg, 04/11/21 15:59:00 EDT, Dry Weight Start Date: 04/25/21 Stop Date: 04/20/22 Status: Ordered latanoprost 0.005% ophthalmic solution See Instructions, INSTILL 1 DROP IN BOTH EYES DAILY BEFORE DINNER, # 2.5 mL, 0 Refills, [facility], 18, INSTILL 1 DROP IN BOTH EYES DAILY BEFORE DINNER, 158, cm, 04/14/21 11:28:00 EDT, Height, 98.6, kg, 04/11/21 15:59:00 EDT, Dry Weight Start Date: 04/14/21 Status: Ordered Lipitor 40 mg oral tablet 1 tablet = 40 mg, By Mouth, Daily at bedtime, # 30 tablet, 5 Refills, Maintenance, 04/28/21 6:50:00EDT, Tablet, [facility]/pharmacy #[id number], Partial fill upon patient request if the prescription is for a schedule II opioid drug., 158, cm, 04/25/21 14:49:00 ED... Start Date: 04/28/21 Status: Ordered Metoprolol Succinate ER 25 mg oral tablet, extended release 1 tablet, By Mouth, Daily, # 90 tablet, 2 Refills, [facility], 159, cm, 12/21/21 15:41:00 EDT,Height, 93.6, kg, [...] # 360 tablet, 1 Refills, [facility], 159, cm, 11/14/21 9:20:00 EDT, Height, 98, kg, 07/06/21 19:57:00 EST, Dry Weight Start Date: 11/22/21 Status: Ordered spironolactone 25 mg oral tablet 25 mg, 1, tablet, By Mouth, Daily, # 90 tablet, Refills 3, Tot. Refills 3, Maintenance, 11/14/21 9:55:00 EDT, [facility] [...] 90 tablet, 1 Refills, 12/13/21 10:45:00 EDT, [facility]/pharmacy #[id number], 159, cm, 12/13/21 10:22:00 EDT, [...]
--- OUTSIDE RECORDS SUMMARY | 2024-02-08 01:10 | XMS_ITS | Continuity of Care Document ---
Author Organization [facility] Address [address] [place] [address]- Care Team Providers Care Shipping Processor Name Role Phone Rc CORDERO, Mick Clay Primary Care Physician [phone] Encounter [facility] [place] Date(s): 06/09/22 - 07/09/22 [facility] [address] [place] [address]- [place] Allergies, Adverse Reactions, Alerts Substance Reaction Severity Status amoxicillin 1 Active Cats Active Other Environmental Allergy 2 Active Benadryl Shaking Active Contrast Dye Active [...] Given Parent Or Guardian Refuses 1Result Comment: [id number] 2Location History: DR LOAIZA 3Location History: DR LOAIZA 4Location History: DR LOAIZA 5Location History: DR LOAIZA Medications atorvastatin 40 mg oral tablet 1 tablet, By Mouth, Daily at bedtime, # 90 tablet, 3 Refills, Maintenance, 05/13/22 7:24:00 EDT, [facility], 157, cm, 05/12/22 13:47:00 EDT, Height, 94.3, [...] 6:58:00 EDT, 01/18/22 6:58:00 EDT, CR Capsule, [facility]/pharmacy #[id number], Partial fill upon patient request if the prescription is for a schedule II opioid drug., 159, cm, 12/21... Start Date: 01/18/22 Stop Date: 01/18/23 Status: Ordered clopidogrel 75 mg oral tablet 75 mg, 1, tablet, By Mouth, Daily, # 30 tablet, Refills 11, Tot. Refills 11, Maintenance, 07/09/21 10:04:00 EST, [facility] Refills, Maintenance, 05/13/22 9:34:00 EDT, Gel, [facility]/pharmacy #[id number], 157, cm, 05/12/22 13:47:00 EDT, Height, 94.3, kg, 01/19/22 4:25:00 EDT, Dry Weight Start Date: 05/13/22 Status: Ordered Eliquis 5 mg oral tablet 1 tablet, By Mouth, 2 times a day, # 180 tablet, 3 Refills, Maintenance, 05/27/22 16:57:00 EDT, [facility], 157, cm, 05/12/22 13:47:00 EDT, Height, 94.3, kg, 01/19/22 4:25:00 EDT, Dry Weight Start Date: 05/27/22 Status: Ordered empagliflozin 10 mg oral tablet 1 tablet = 10 mg, By Mouth, Daily in AM, # 90 tablet, 3 Refills, Maintenance, 06/09/22 12:36:00 EST, Tablet, [facility]/pharmacy #[id number], Partial fill upon patient request if the prescription is for a schedule II opioid drug., 157, cm, 05/12/22 13:47:00 EDT, H... Start Date: 06/09/22 Stop Date: 06/04/23 Status: Ordered gabapentin 400 mg oral capsule 2, capsule, By Mouth, 3 times a day, # 180 capsule, Refills 5, Route to Pharmacy Electronically, [facility] ST[facility] 574[facility], 159, cm, 12/21/21 15:41:00 EDT, Height, 93.6, kg, 01/06/22 9:12:00 EDT, Dry Weight Start Date: 01/17/22 Status: Ordered isosorbide mononitrate 60 mg oral tablet, extended release 60 mg, 1, tablet, By Mouth, Daily in AM, # 90 tablet, Refills 0, Tot. Refills 0, Maintenance, 05/29/22 17:47:00 EST, Do Not Route, Partial fill upon patient request if the prescription is for a schedule II opioid drug. Start Date: 05/29/22 Status: Ordered latanoprost 0.005% ophthalmic solution See Instructions, INSTILL 1 DROP IN BOTH EYES DAILY BEFORE DINNER, # 2.5 mL, 0 Refills, [facility], 18, INSTILL 1 DROP IN BOTH EYES DAILY BEFORE DINNER, 158, cm, 04/14/21 11:28:00 EDT, Height, 98.6, kg, 04/11/21 15:59:00 EDT, Dry Weight Start Date: 04/14/21 Status: Ordered Metoprolol Succinate ER 25 mg oral tablet, extended release 1 tablet, By Mouth, Daily, # 90 tablet, 2 Refills, [facility], 159, cm, 12/21/21 15:41:00 EDT,Height, 93.6, kg, [...] a day, # 360 tablet, 1 Refills, [facility] 228[facility], 159, cm, 11/14/21 9:20:00 EDT, Height, 98, [...] Date: 05/20/22 Stop Date: 05/15/23 Status: Ordered VITAMIN B-1 100 MG TABLET VITAMIN B-1 100 MG TABLET, 1, tablet, By Mouth, Daily, # 90 tablet, 1 Refills, 159, cm, 10/26/21 10:50:00 EDT, Height, 98, kg, 07/06/21 19:57:00 EST, Dry Weight Start Date: 11/10/21 Status: Ordered Vitamin B1 100 mg oral tablet 100 mg, 1, tablet, By Mouth, Daily, # 90 tablet, Refills 3, Tot. Refills 3, Acute 05/20/23 16:10:00EDT, 05/20/22 16:10:00 EDT, Route to Pharmacy Electronically, [facility]/pharmacy #[id number], Partial fill uponpatient request if the prescription [...] Team Personnel Name: Mojgan Lopez RN Position: S RN Member Role: Primary Care Nurse Name: Lisa Carlson RN Position: S RN Member Role: Primary Care Nurse Name: Estrellita Putnam RN Position: S RN Member Role: Primary Care Nurse Name: Marlen Kenny RN Position: S RN Member Role: Primary Care Nurse Name: Toshia Muhammad RN Position: [facility] RN Supv Member Role: Primary Care Nurse Name: Suleman Jones RN Position: [facility] RN Member Role: Primary Care Nurse Name: Kathy Medina RN Position: [facility] RN Member Role: Primary Care Nurse Name: Lesli Mercedes RN Position: [facility] RN Member Role: Primary Care Nurse Name: Marguerite Wang RN Position: [facility] RN Member Role: Primary Care Nurse Name: Ananya Robledo RN Position: [facility] RN Member Role: Primary Care Nurse Name: Mick Tatum MD Position: [facility] Primary Care Physician Member Role: PCP Address: Address: [address] [place] [id number] Name: Svitlana Clark RN [facility] Rylie Ordonez RN Position: [facility] PCO RN Member Role: Primary Care Nurse Name: Marisa Negrete RN Position: [facility] RN Member [...] Name: Sneha Newton RN Position: [facility] High School Chemistry Teacher Member Role: Primary Care Nurse Care Team Related Persons Name: CLAUDIA URBINA Address: home [address] [place], [place] Name: RALPH SÁNCHEZ Address: home [address] [place], [place] Name: YULIET CARCAMOA Address: home [address] [place], [place]
--- OUTSIDE RECORDS SUMMARY | 2024-02-08 01:10 | XMS_ITS | Continuity of Care Document ---
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 Name Role Phone Mick Tatum MD Primary Care Physician [place] [facility] [place] 06/27/23 - 07/04/23 [facility] [address] [place] [address]- Attending Physician: Mick Tatum MD Allergies, Adverse [...] (Td) 5 07/23/96 Recorde d 1Result Comment: [id number] 2Location History: DR LOAIZA 3Location History: DR LOAIZA 4Location History: DR LOAIZA 5Location History: DR LOAIZA Medications atorvastatin 40 mg oral tablet 1 tablet, By Mouth, Daily at bedtime, # 90 tablet, 1 Refills, Maintenance, 05/04/23 6:30:00 EDT, [facility], 157, cm, 03/21/23 14:39:00 EDT, Height, 94.3, [...] tablet, 3 Refills, Maintenance, 06/15/23 1:44:00 EST, [facility], 157, cm, 05/31/23 6:38:00 EST, Height, 94.3, [...] tablet, 3 Refills, Maintenance, 06/13/23 8:27:00 EST, [facility], 157, cm, 05/31/23 6:38:00 EST, Height, 94.3, kg, 01/19/22 4:25:00 EDT, Dry Weight Start Date: 06/13/23 Status: Ordered isosorbide mononitrate 60 mg oral tablet, extended release 1 tablet, By Mouth, 2 times a day, # 180 tablet, 3 Refills, Maintenance, 06/13/23 8:27:00 EST, [facility], 157, cm, 05/31/23 6:38:00 EST, Height, 94.3, kg, 01/19/22 4:25:00 EDT, Dry Weight Start Date: 06/13/23 Status: Ordered Jardiance 10 mg oral tablet 1 tablet, By Mouth, Daily in AM, # 90 tablet, 3 Refills, Maintenance, 06/04/23 8:09:00 EST, [facility], 157, cm, 05/31/23 6:38:00 EST, Height, 94.3, [...] Refills, Maintenance, 01/22/23 9:08:00 EDT, [facility], 157, cm, 12/28/22 14:14:00 EDT, Height, 94.3, kg, 01/19/22 4:25:00 EDT, Dry Weight Start Date: 01/22/23 Status: Ordered spironolactone 25 mg oral tablet 25 mg, 1, tablet, By Mouth, Daily, # 90 tablet, Refills 3, Tot. Refills 3, Maintenance, 10/09/22 15:42:00 EDT, Route to Pharmacy Electronically, [facility]/pharmacy #[id number], Partial fill upon patient request if the prescription is for a schedule II opioid drug... Start Date: 10/09/22 Stop Date: 10/04/23 Status: Ordered torsemide 20 mg oral tablet 2 tablet = 40 mg, By Mouth, Daily, for 90 days, # 180 tablet, 3 Refills, Physician Stop 07/26/23 8:14:00 EST, 07/31/22 8:14:00 EST, [facility]/pharmacy #[id number], 157, cm, 07/27/22 15:56:00 EST, [...] oldest [Reference Range]: 1 Height 157.0 cm (06/27/23 4:10 PM) Oxygen Saturation [94-100 %] 95 % (06/27/23 4:10 PM) Pulse Rate [55-90 bpm] 81 bpm (06/27/23 4:10 PM) Blood Pressure [90-138/55-84 mm Hg] 111/ 70mm Hg (06/27/23 4:10 PM) Mode of Delivery (Oxygen) Room air (06/27/23 4:10 PM) Blood pressure sites Arm, left (06/27/23 4:10 PM) Social History Social History Type Response Smoking Status Never (less than 100 in lifetime) entered on: 06/27/18 Sex Patient Care team information Care Team Personnel Name: Lisa Carlson RN Position: [facility] RN Member Role: Primary Care Nurse Name: Estrellita Putnam RN Position: [facility] RN Member Role: Primary Care Nurse Name: Marlen Kenny RN Position: [facility] RN Member Role: Primary Care Nurse Name: Toshia Muhammad RN Position: [facility] RN Martha Member Role: Primary Care Nurse Name: Suleman Jones RN Position: [facility] RN Member Role: Primary Care Nurse Name: Kathy Medina RN Position: [facility] RN Member Role: Primary Care Nurse Name: Marguerite Wang RN Position: [facility] RN Member Role: Primary Care Nurse Name: Mick Tatum MD Position: [facility] Physician - Primary Care Member Role: PCP Address: Address: [address] [place] [address]- Name: Svitlana Clark RN Position: [facility] RN Member Role: Primary Care Nurse Name: Yoana Guevara RN Position: [facility] RN Member Role: Primary Care Nurse Name: Pierre Groves RN Position: [facility] RN Member Role: Primary Care Nurse Name: Carmen Murphy NP Position: [facility] PCO Associate Professional Member Role: Primary Care Nurse Address: Address: [address] [place] [address]- Name: Rylie Ordonez RN Position: [facility] KIRSTIN Nurse Member Role: Primary Care Nurse Name: Marisa Negrete RN Position: [facility] RN Member Role: Primary Care Nurse Name: Aditi Brown RN Position: [facility] RN Member Role: Primary Care Nurse Name: Chana Cazares RN Position: [facility] RN Member Role: Primary Care Nurse Name: Toshia Urbina RN Position: [facility] RN Member Role: Primary Care Nurse Name: Isabel Gray Position: [facility] [place] Quality Control Specialist Member Role: Bricklayer Apprentice Name: Aniyah Sloan RN Position: [facility] SN RN Member Role: Primary Care Nurse Name: Rosemary Ramon RN Position: [facility] OB RN Member Role: Primary Care Nurse Name: Sneha Newton RN Position: [facility] Hospital Photographer Apprentice Lithographic Member Role: Primary Care Nurse Care Team Related Persons Name: CLAUDIA URBINA Address: [address] [place] [address] Name: RALPH SÁNCHEZ Address: [address] [place] [address] Name: DONY CARCAMO Address: [address] [place] [address]
--- OUTSIDE RECORDS SUMMARY | 2024-02-08 01:10 | XMS_ITS | Continuity of Care Document ---
Author Organization [facility] Jose lt Address [address] [place] [address]- Care Team Providers Care Marketing Engineer Name Role Phone Rc CORDERO, Mick Clay Primary Care Physician [phone] Encounter [facility] [place] Date(s): 01/28/21 - 02/27/21 [facility] [address] [place] [address]- Allergies, Adverse Reactions, Alerts Substance Reaction Severity [...] 03/30/20 8:48:00 EDT, Route to Pharmacy Electronically, [facility]/pharmacy #[id number], 157, cm, 03/11/20 12:49:00 EDT, Height, 91, kg, 02/28/20 22:14:00 EDT, Dry Weight Start Date: 03/30/20 Stop Date: 03/25/21 Status: Ordered aspirin 81 mg oral delayed release tablet 81 mg, 1, tablet, By Mouth, Daily, # 30 tablet, Refills 0, Tot. Refills 0, Maintenance, 09/20/20 14:38:00 EST, [facility] 3 Refills, Maintenance, 07/12/20 14:12:00 EST, [facility], 157, cm, 05/07/20 11:34:00 EDT, Height, 91, [...] 0 Refills, Maintenance, 08/30/20 10:02:00 EST, Tablet, [facility]/pharmacy #[id number], [...] 0 Refills, Maintenance, 11/25/20 12:14:00 EDT, Tablet, [facility]/pharmacy #[id number], [...] tablet, 0 Refills,Soft Stop, 10/21/20 16:26:00 EDT, [facility]/pharmacy #[id number], Partial fill upon patient request if the [...]
--- OUTSIDE RECORDS SUMMARY | 2024-02-08 01:10 | XMS_ITS | Continuity of Care Document ---
Author Organization 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 [address] [place] [id number] [facility] Allergies, Adverse Reactions, Alerts Substance [...] 06/18/20 11:43:00 EST, 04/23/20 11:43:00 EDT, Capsule, [facility]/pharmacy #[id number], 157, cm, 04/23/20 11:28:00 EDT, Height, [...] 03/10/20 10:49:00 EDT, [id number], cm, 03/10/20 8:47:00 EDT, [...] Maintenance,03/30/20 8:48:00 EDT, [id number], cm, 03/11/20 12:49:00 EDT, Height, 91, kg, 02/28/20 22:14:00 EDT, Dry... Start Date: 03/30/20 Stop Date: 12/25/20 Status: Ordered HYDROmorphone 2 mg oral tablet 1 tablet = 2 mg, By Mouth, Every 6 hours, PRN as needed for pain, # 28 tablet, 0 Refills, Maintenance, 03/11/20 15:06:00 EDT, Tablet, [facility]/pharmacy #[id number], Partial fill upon patient request, 157, [...] 03/10/20 10:51:00 EDT, Route to Pharmacy Electronically, [facility]/pharmacy [...]
--- OUTSIDE RECORDS SUMMARY | 2024-02-08 01:10 | XMS_ITS | Continuity of Care Document ---
Author Organization [facility] Address [address] [place] [address]- Care Team Providers Care Manager Graphic Name Role Phone Mick Tatum MD Primary Care Physician Encounter [facility] [place] Date(s): 09/15/22 - 10/15/22 [facility] [address] [place] [address]- [place] Allergies, Adverse Reactions, Alerts Substance Reaction [...] Given Parent Or Guardian Refuses 1Result Comment: [id number] 2Location History: DR LOAIZA 3Location History: DR LOAIZA 4Location History: DR LOAIZA 5Location History: DR LOAIZA Medications atorvastatin 40 mg oral tablet 1 tablet, By Mouth, Daily at bedtime, # 90 tablet, 3 Refills, Maintenance, 05/13/22 7:24:00 EDT, [facility], 157, cm, 05/12/22 13:47:00 EDT, Height, 94.3, [...] 6:58:00 EDT, 01/18/22 6:58:00 EDT, CR Capsule, [facility]/pharmacy #[id number], Partial fill [...] 3 Refills, Maintenance, 05/27/22 16:57:00 EDT, [facility], 157, cm, 05/12/22 13:47:00 EDT, Height, 94.3, [...] Refills, Acute 11/13/2311:15:00 EDT, 10/12/22 12:15:00 EDT, [facility]/pharmacy #[id number], Partial fill [...] 16:07:00 EST, [id number] fill upon patientrequest if the prescription is for a schedule II op... Start Date: 07/10/22 Status: Ordered latanoprost 0.005% ophthalmic solution See Instructions, INSTILL 1 DROP IN BOTH EYES DAILY BEFORE DINNER, # 2.5 mL, 0 Refills, [facility] ST[facility] 37534, 18, INSTILL 1 DROP IN BOTH EYES DAILY BEFORE DINNER, 158, cm, 04/14/21 11:28:00 EDT, Height, 98.6, kg, 04/11/21 15:59:00 EDT, Dry Weight Start Date: 04/14/21 Status: Ordered Metoprolol Succinate ER 25 mg oral tablet, extended release 1 tablet, By Mouth, Daily, # 90 tablet, 3 Refills, 09/30/22 20:06:00 EST, [id number], cm, 09/15/22 11:19:00 EST, Height, [...] tablet, 1 Refills, Maintenance, 07/25/22 9:33:00 EST, [facility] 11615, 157, cm, 07/10/22 15:50:00 EST, Height, 94.3, kg, 01/19/22 4:25:00 EDT, Dry Weight Start Date: 07/25/22 Status: Ordered spironolactone 25 mg oral tablet 25 mg, 1, tablet, By Mouth, Daily, # 90 tablet, Refills 3, Tot. Refills 3, Maintenance, 10/09/22 15:42:00 EDT, [facility] Team Personnel Name: Lisa Carlson RN Position: [facility] RN Member Role: Primary Care Nurse Name: Estrellita Putnam RN Position: [facility] RN Member Role: Primary Care Nurse Name: Marlen Kenny RN Position: [facility] RN Member Role: Primary Care Nurse Name: Toshia Muhammad RN Position: [facility] RN Martha Member Role: Primary Care Nurse Name: Suleman Jones RN Position: [facility] RN Member Role: Primary Care Nurse Name: Kathy Medina RN Position: [facility] RN Member Role: Primary Care Nurse Name: Marguerite Wang RN Position: [facility] RN Member Role: Primary Care Nurse Name: Mick Tatum MD Position: [facility] Primary Care Physician Member Role: PCP Address: Address: [address] [place] [address]- Name: Svitlana Clark RN Position: [facility] RN Member Role: Primary Care Nurse Name: Yoana Guevara RN Position: [facility] RN Member Role: Primary Care Nurse Name: Pierre Groves RN Position: [facility] RN Member Role: Primary Care Nurse Name: Carmen Murphy RN Position: [facility] RN Member Role: Primary Care Nurse Name: Rylie Ordonez RN Position: [facility] RN Member Role: Primary Care Nurse Name: Aditi Brown RN Position: [facility] RN Member Role: Primary Care Nurse Name: Chana Cazares RN Position: [facility] RN Member Role: Primary Care Nurse Name: Toshia Urbina RN Position: [facility] RN Member Role: Primary Care Nurse Name: Aniyah Sloan RN Position: [facility] SN RN Member Role: Primary Care Nurse Name: Rosemary Ramon RN Position: [facility] OB RN Member Role: Primary Care Nurse Name: Sneha Newton RN Position: [facility] Hospital Scientist/Engineer Member Role: Primary Care Nurse Care Team Related Persons Name: CLAUDIA URBINA Address: [address] [place] [address] Name: PRINCESS RALPH Address: [address] [place] [address] Name: DONY CARCAMO Address: [address] [place] [address]
--- OUTSIDE RECORDS SUMMARY | 2024-02-08 01:10 | XMS_ITS | Continuity of Care Document ---
Author Organization [facility] Gopi Jose lt Address [address] [place] [address]- Care Team Providers Care Embroidery Cutter Name Role Phone Mick Tatum MD Primary Care Physician En[place] [facility] [place] Date(s): 07/25/21 - 08/01/21 [facility] [address] [place] [address]- Attending Physician: Mick Tatum MD Allergies, Adverse [...] 07/09/21 10:04:00 EST, Route to Pharmacy Electronically, [facility]/pharmacy #[id number], Partial fill upon patient request if the prescription is for a schedule II opioid . Start Date: 07/09/21 Stop Date: 07/04/22 Status: Ordered Cosopt 2.23%-0.68% ophthalmic solution 1 drops, Eyes, Both, 2 times a day, # 10 mL, 0 Refills, Maintenance, 03/23/21 9:41:00 EDT, Solution, [facility]/pharmacy #[id number], Partial fill upon patient [...] a day, # 180 tablet, 3 Refills, [facility] 03445, 158, cm, 06/09/21 10:14:00 EST, Height, 98.6, kg, 04/11/21 15:59:00 EDT, Dry Weight Start Date: 06/17/21 Status: Ordered empagliflozin 10 mg oral tablet 1 tablet = 10 mg, By Mouth, Daily in AM, # 90 tablet, 3 Refills, Maintenance, 06/09/21 12:06:00 EST, Tablet, [facility]/pharmacy #[id number], Partial fill upon patient [...] 07/31/21 10:21:00 EST, Route to Pharmacy Electronically, [facility]/pharmacy #[id number], 159, cm, 07/25/21 11:20:00 EST, Height, 98, kg, 07/06/21 19:57:00 EST, Dry Weight Start Date: 07/31/21 Status: Ordered HYDROmorphone 2 mg oral tablet 1 tablet = 2 mg, By Mouth, Every 12 hours, PRN Pain , Severe, Dx: Severe lumbar degen disc disease,# 12 tablet, 0 Refills, Acute 08/08/21 16:30:00 EST, 07/25/21 16:22:00 EST, [facility]/pharmacy #[id number], Partial fill upon patient request if the prescription i... Start Date: 07/25/21 Stop Date: 08/08/21 Status: Ordered isosorbide mononitrate 30 mg oral tablet, extended release 1 tablet, By Mouth, Daily, for 90 days, # 90 tablet, 3 Refills, Physician Stop 04/20/22 16:32:00 EDT, 04/25/21 16:32:00 EDT, [facility]/pharmacy #[id number], 158, cm, 04/25/21 14:49:00 EDT, Height, 98.6, kg, 04/11/21 15:59:00 EDT, Dry Weight Start Date: 04/25/21 Stop Date: 04/20/22 Status: Ordered latanoprost 0.005% ophthalmic solution See Instructions, INSTILL 1 DROP IN BOTH EYES DAILY BEFORE DINNER, # 2.5 mL, 0 Refills, [facility] 76944, 18, INSTILL 1 DROP IN BOTH EYES DAILY BEFORE DINNER, 158, cm, 04/14/21 11:28:00 EDT, Height, 98.6, kg, 04/11/21 15:59:00 EDT, Dry Weight Start Date: 04/14/21 Status: Ordered Lipitor 40 mg oral tablet 1 tablet = 40 mg, By Mouth, Daily, # 30 tablet, 5 Refills, Maintenance, 04/28/21 6:50:00 EDT, Tablet, [facility]/pharmacy #[id number], Partial fill upon patient [...] 12/06/20 13:03:00 EDT, Route to Pharmacy Electronically, [facility]/pharmacy #[id number], Partial fill upon patient [...] 0 Refills, Maintenance, 03/15/21 12:38:00 EDT, Tablet, [facility]/pharmacy #[id number], Partial fill... Start Date: [...] 05/14/21 12:51:00 EDT, Route to Pharmacy Electronically, [facility]/pharmacy #[id number], Partial fill upon patient request if the prescription is... Start Date: 05/14/21 Stop Date: 11/10/21 Status: Ordered torsemide 20 mg oral tablet 1 tablet = 20 mg, By Mouth, Daily, # 30 tablet, 5 Refills, Maintenance, 05/10/21 4:19:00 EDT, Tablet, [facility]/pharmacy #[id number], Partial fill upon patient [...] oldest [Reference Range]: 1 Height 159 cm (07/25/21 11:20 AM) Weight 95 kg (07/25/21 11:20 AM) Body Mass Index [18.5-24.99] 37.58 *>HHI* (07/25/21 11:20 AM) Weight Obtained Via Standing scale (07/25/21 11:20 AM) Social History Social History Type Response Smoking Status Never (less than 100 in lifetime) entered on: 06/27/18 Sex
--- OUTSIDE RECORDS SUMMARY | 2024-02-08 01:10 | XMS_ITS | Continuity of Care Document ---
Author Organization [facility] Gopi Jose lt Address [address] [place] [address]- Care Team Providers Care Distribution Lead Name Role Phone Mick Tatum MD Primary Care Physician Encounter [facility] Date(s): 11/22/22 - 12/22/22 [facility] Adult [address] [place] [address]- Allergies, Adverse Reactions, Alerts Substance Reaction Severity [...] Given Parent Or Guardian Refuses 1Result Comment: [id number] 2Location History: DR LOAIZA 3Location History: DR LOAIZA 4Location History: DR LOAIZA 5Location History: DR LOAIZA Medications atorvastatin 40 mg oral tablet 1 tablet, By Mouth, Daily at bedtime, # 90 tablet, 3 Refills, Maintenance, 05/13/22 7:24:00 EDT, [id number], 157, cm, 05/12/22 13:47:00 EDT, Height, 94.3, [...] 5 Refills, Maintenance, 05/13/22 9:34:00 EDT, Gel, [facility]/pharmacy #[id number], 157, cm, 05/12/22 13:47:00 EDT, Height, 94.3, kg, 01/19/22 4:25:00 EDT, Dry Weight Start Date: 05/13/22 Status: Ordered Eliquis 5 mg oral tablet 1 tablet, By Mouth, 2 times a day, # 180 tablet, 3 Refills, Maintenance, 05/27/22 16:57:00 EDT, [facility], 157, cm, 05/12/22 13:47:00 EDT, Height, 94.3, kg, 01/19/22 4:25:00 EDT, Dry Weight Start Date: 05/27/22 Status: Ordered empagliflozin 10 mg oral tablet 1 tablet = 10 mg, By Mouth, Daily in AM, # 90 tablet, 3 Refills, Maintenance, 06/09/22 12:36:00 EST, Tablet, [facility]/pharmacy #[id number], Partial fill upon patient request if the prescription is for a schedule II opioid drug., 157, cm, 05/12/22 13:47:00 EDT, H... Start Date: 06/09/22 Stop Date: 06/04/23 Status: Ordered gabapentin 400 mg oral capsule 2, capsule, By Mouth, 3 times a day, # 180 capsule, Refills 5, Tot. Refills 5, Maintenance, 08/28/22 15:05:00 EST, Route to Pharmacy Electronically, [facility]/pharmacy #[id number], 157, cm, 07/27/22 15:56:00 EST, Height, 94.3, kg, 01/19/22 4:25:00 EDT, Dry Weight Start Date: 08/28/22 Status: Ordered isosorbide mononitrate 60 mg oral tablet, extended release 60 mg, 1, tablet, By Mouth, 2 times a day, # 180 tablet, Refills 3, Tot. Refills 3, Maintenance, 07/10/22 16:07:00 EST, Route to Pharmacy Electronically, [facility]/pharmacy #[id number], Partial fill upon patientrequest if the prescription is for a schedule II op... Start Date: 07/10/22 Status: Ordered latanoprost 0.005% ophthalmic solution See Instructions, INSTILL 1 DROP IN BOTH EYES DAILY BEFORE DINNER, # 2.5 mL, 0 Refills, [facility], 18, INSTILL 1 DROP IN BOTH EYES DAILY BEFORE DINNER, 158, cm, 04/14/21 11:28:00 EDT, Height, 98.6, kg, 04/11/21 15:59:00 EDT, Dry Weight Start Date: 04/14/21 Status: Ordered Metoprolol Succinate ER 25 mg oral tablet, extended release 1 tablet, By Mouth, Daily, # 90 tablet, 3 Refills, 09/30/22 20:06:00 EST, [facility]/pharmacy #[id number], 157, cm, 09/15/22 11:19:00 EST, Height, 94.3, kg, 01/19/22 4:25:00 EDT, Dry Weight Start Date: 09/30/22 Status: Ordered nitroglycerin 0.4 mg sublingual tablet 1 tablet = 0.4 mg, Sublingual, Every 5 minutes, PRN as needed for chest pain, not to exceed 3 doses/15 min--if pain persists, seek medical attention, # 100 tablet, 0 Refills, Maintenance, 12/19/22 9:51:00 EDT, Tablet, [facility]/pharmacy #[id number], Partial fill... Start Date: 12/19/22 Status: Ordered ondansetron 4 mg oral tablet 1 tablet = 4 mg, By Mouth, Every 8 hours, PRN Nausea & Vomiting, # 10 tablet, 2 Refills, Acute 01/30/23 8:27:00 EDT, 11/30/22 8:27:00 EDT, Tablet, [facility]/pharmacy #[id number], Partial fill upon patient request if the prescription is for a schedule II opioid drJohann. Start Date: 11/30/22 Stop Date: 01/30/23 Status: Ordered rOPINIRole 0.5 mg oral tablet 1 tablet, By Mouth, 4 times a day, # 360 tablet, 1 Refills, Maintenance, 07/25/22 9:33:00 EST, [facility], 157, cm, 07/10/22 15:50:00 EST, Height, 94.3, kg, 01/19/22 4:25:00 EDT, Dry Weight Start Date: 07/25/22 Status: Ordered spironolactone 25 mg oral tablet 25 mg, 1, tablet, By Mouth, Daily, # 90 tablet, Refills 3, Tot. Refills 3, Maintenance, 10/09/22 15:42:00 EDT, Route to Pharmacy Electronically, [facility]/pharmacy #[id number], Partial fill upon [...] Stop 05/15/23 16:05:00 EDT, 05/20/22 16:05:00 EDT, [facility]/pharmacy #[id number], 157, cm, 05/12/22 13:47:00 EDT, Height, 94.3,kg, 01/19/22 4:25:00 EDT, Dry Weight Start Date: 05/20/22 Stop Date: 05/15/23 Status: Ordered Vitamin B1 100 mg oral tablet 100 mg, 1, tablet, By Mouth, Daily, # 90 tablet, Refills 3, Tot. Refills 3, Acute 05/20/23 16:10:00EDT, 05/20/22 16:10:00 EDT, Route to Pharmacy Electronically, [facility]/pharmacy #[id number], Partial fill uponpatient [...] Team Personnel Name: Lisa Carlson RN Position: [facility] RN Member Role: Primary Care Nurse Name: Estrellita Putnam RN Position: [facility] RN Member Role: Primary Care Nurse Name: Marlen Kenny RN Position: [facility] RN Member Role: Primary Care Nurse Name: Toshia Muhammad RN Position: [facility] RN Martha Member Role: Primary Care Nurse Name: Suleman Jones RN Position: [facility] RN Member Role: Primary Care Nurse Name: Kathy Medina RN Position: [facility] RN Member Role: Primary Care Nurse Name: Lesli Mercedes RN Position: [facility] RN Member Role: Primary Care Nurse Name: Mick Tatum MD Position: [facility] Physician - Primary Care Member Role: PCP Address: Address: [address] [place] [id number]- Name: Svitlana Clark RN Position: [facility] RN Member Role: Primary Care Nurse Name: Yoana Guevara RN Position: [facility] RN Member Role: Primary Care Nurse Name: Pierre Groves RN Position: [facility] RN Member Role: Primary Care Nurse Name: Carmen Murphy RN Position: [facility] RN Member Role: Primary Care Nurse Name: Rylie Ordonez RN Position: [facility] [place] RN Member Role: Primary Care Nurse Name: Aditi Brown RN Position: [facility] RN Member Role: Primary Care Nurse Name: Chana Cazares RN Position: [facility] RN Member Role: Primary Care Nurse Name: Toshia Urbina RN Position: [facility] RN Member Role: Primary Care Nurse Name: Aniyah Sloan RN Position: [facility] SN RN Member Role: Primary Care Nurse Name: Rosemary Ramon RN Position: [facility] OB RN Member Role: Primary Care Nurse Name: Sneha Newton RN Position: [facility] Hospital Grinding Machine Operator Member Role: Primary Care Nurse Care Team Related Persons Name: CLAUDIA URBINA Address: [address] [place] [address] Name: RALPH SÁNCHEZ Address: [address] [place] [address] Name: DONY CARCAMO Address: [address] [place] [address]
--- OUTSIDE RECORDS SUMMARY | 2024-02-08 01:10 | XMS_ITS | Continuity of Care Document ---
Author Organization [facility] Address [address] [place] [address]- Care Team Providers Care Insurance Investigator Name Role Phone Mick Tatum MD Primary Care Physician Encounter [facility] Date(s): 09/15/22 - 10/15/22 [facility] [address] [place] [phone]- Attending Physician: Julia Haile Admitting Physician: Julia [...] Given Parent Or Guardian Refuses 1Result Comment: [id number] 2Location History: DR LOAIZA 3Location History: DR LOAIZA 4Location History: DR LOAIZA 5Location History: DR LOAIZA Medications atorvastatin 40 mg oral tablet 1 tablet, By Mouth, Daily at bedtime, # 90 tablet, 3 Refills, Maintenance, 05/13/22 7:24:00 EDT, [facility], 157, cm, 05/12/22 13:47:00 EDT, Height, 94.3, [...] 5 Refills, Maintenance, 05/13/22 9:34:00 EDT, Gel, [facility]/pharmacy #[id number], 157, cm, 05/12/22 13:47:00 EDT, Height, 94.3, kg, 01/19/22 4:25:00 EDT, Dry Weight Start Date: 05/13/22 Status: Ordered Eliquis 5 mg oral tablet 1 tablet, By Mouth, 2 times a day, # 180 tablet, 3 Refills, Maintenance, 05/27/22 16:57:00 EDT, [facility], 157, cm, 05/12/22 13:47:00 EDT, Height, 94.3, kg, 01/19/22 4:25:00 EDT, Dry Weight Start Date: 05/27/22 Status: Ordered empagliflozin 10 mg oral tablet 1 tablet = 10 mg, By Mouth, Daily in AM, # 90 tablet, 3 Refills, Maintenance, 06/09/22 12:36:00 EST, Tablet, [facility]/pharmacy [...] 15:05:00 EST, Route to Pharmacy Electronically, [facility]/pharmacy #[id number], 157, cm, 07/27/22 15:56:00 [...] 16:07:00 EST, Route to Pharmacy Electronically, [facility]/pharmacy #[id number], Partial fill upon patientrequest if the prescription is for a schedule II op... Start Date: 07/10/22 Status: Ordered latanoprost 0.005% ophthalmic solution See Instructions, INSTILL 1 DROP IN BOTH EYES DAILY BEFORE DINNER, # 2.5 mL, 0 Refills, [facility], 18, INSTILL 1 DROP IN BOTH EYES DAILY BEFORE DINNER, 158, cm, 04/14/21 11:28:00 EDT, Height, 98.6, kg, 04/11/21 15:59:00 EDT, Dry Weight Start Date: 04/14/21 Status: Ordered Metoprolol Succinate ER 25 mg oral tablet, extended release 1 tablet, By Mouth, Daily, # 90 tablet, 3 Refills, 09/30/22 20:06:00 EST, [facility]/pharmacy #[id number], 157, cm, 09/15/22 11:19:00 EST, Height, 94.3, kg, 01/19/22 4:25:00 EDT, Dry Weight Start Date: 09/30/22 Status: Ordered nitroglycerin 0.4 mg sublingual tablet 1 tablet = 0.4 mg, Sublingual, Every 5 minutes, PRN as needed for chest pain, not to exceed 3 doses/15 min--if pain persists, seek medical attention, # 100 tablet, 0 Refills, Maintenance, 03/15/21 12:38:00 EDT, Tablet, [facility]/pharmacy #[id number], Partial fill... Start Date: 03/15/21 Status: Ordered rOPINIRole 0.5 mg oral tablet 1 tablet, By Mouth, 4 times a day, # 360 tablet, 1 Refills, Maintenance, 07/25/22 9:33:00 EST, [facility] 0[facility]01, 157, cm, 07/10/22 15:50:00 EST, Height, 94.3, kg, 01/19/22 4:25:00 EDT, Dry Weight Start Date: 07/25/22 Status: Ordered spironolactone 25 mg oral tablet 25 mg, 1, tablet, By Mouth, Daily, # 90 tablet, Refills 3, Tot. Refills 3, Maintenance, 10/09/22 15:42:00 EDT, [facility] Electron[facility], [facility] 16:10:00 EDT, Route to Pharmacy Electronically, [facility]/pharmacy #[id number], Partial fill uponpatient request [...] Team Personnel Name: Lisa Carlson RN Position: [facility] RN Member Role: Primary Care Nurse Name: Estrellita Putnam RN Position: [facility] RN Member Role: Primary Care Nurse Name: Marlen Kenny RN Position: [facility] RN Member Role: Primary Care Nurse Name: Toshia Muhammad RN Position: [facility] RN Martha Member Role: Primary Care Nurse Name: Suleman Jones RN Position: [facility] RN Member Role: Primary Care Nurse Name: Kathy Medina RN Position: [facility] RN Member Role: Primary Care Nurse Name: Marguerite Wang RN Position: [facility] RN Member Role: Primary Care Nurse Name: Mick Tatum MD Position: [facility] Primary Care Physician Member Role: PCP Address: Address: [address] [place] [id number]- Name: Svitlana Clark RN Position: [facility] RN Member Role: Primary Care Nurse Name: Yoana Guevara RN Position: [facility] RN Member Role: Primary Care Nurse Name: Pierre Groves RN Position: [facility] RN Member Role: Primary Care Nurse Name: Carmen Murphy RN Position: [facility] RN Member Role: Primary Care Nurse Name: Rylie Ordonez RN Position: [facility] [place] RN Member Role: Primary Care Nurse Name: Aditi Brown RN Position: [facility] RN Member Role: Primary Care Nurse Name: Chana Cazares RN Position: [facility] RN Member Role: Primary Care Nurse Name: Toshia Urbina RN Position: [facility] RN Member Role: Primary Care Nurse Name: Aniyah Sloan RN Position: [facility] SN RN Member Role: Primary Care Nurse Name: Rosemary Ramon RN Position: [facility] OB RN Member Role: Primary Care Nurse Name: Sneha Newton RN Position: [facility] Hospital Accredited Legal Secretary Member Role: Primary Care Nurse Care Team Related Persons Name: CLAUDIA URBINA Address: [address] [place] [address] Name: RALPH SÁNCHEZ Address: [address] [place] [address] Name: DONY CARCAMO Address: [address] [place] [address]
--- OUTSIDE RECORDS SUMMARY | 2024-02-08 01:11 | XMS_ITS | Continuity of Care Document ---
Author Organization [facility] Address [address] [place] [phone]- Care Team Providers Care Clerical Clerk Name Role Phone Rc CORDERO, Mick Clay Primary Care Physician [phone] Encounter [facility] Date(s): 05/06/21 - 06/11/[address] [address] Attending Physician: Jeffery Klein MD Admitting Physician: Jeffery Klein MD Referring Physician: Toshia Lizarraga MD Allergies, Adverse Reactions, Alerts Substance Reaction [...] 04/27/21 13:28:00 EDT, [id number] fill upon patient request if the prescription... Start Date: 04/27/21 Stop Date: 10/24/21 Status: Ordered aspirin 81 mg oral delayed release tablet 81 mg, 1, tablet, By Mouth, Daily, # 30 tablet, Refills 5, Tot. Refills 5, Maintenance, 10/24/21 13:28:00 EDT, [id number] Partial fill upon patient request if the prescription is for a schedule II opioid drug... Start Date: 10/24/21 Stop Date: 04/22/22 Status: Ordered atorvastatin 40 mg oral tablet 1 tablet, By Mouth, Daily at bedtime, for 90 days, # 90 tablet, 3 Refills, Physician Stop 04/20/22 16:32:00 EDT, 04/25/21 16:32:00 EDT, [facility]/pharmacy #[id number], 158, cm, 04/25/21 14:49:00 EDT, Height, [...] 3 Refills, Maintenance, 07/12/20 14:12:00 EST, [facility], 157, cm, 05/07/20 11:34:00 EDT, Height, 91, [...] Replace Required Details, Route to Pharmacy Electronically, [facility]/pharmacy #[id number], Partial fill upon patient re... Start Date: 03/16/21 Status: Ordered isosorbide mononitrate 30 mg oral tablet, extended release 1 tablet, By Mouth, Daily, for 90 days, # 90 tablet, 3 Refills, Physician Stop 04/20/22 16:32:00 EDT, 04/25/21 16:32:00 EDT, [facility]/pharmacy #[id number], 158, cm, 04/25/21 14:49:00 EDT, Height, 98.6, kg, 04/11/21 15:59:00 EDT, Dry Weight Start Date: 04/25/21 Stop Date: 04/20/22 Status: Ordered latanoprost 0.005% ophthalmic solution See Instructions, INSTILL 1 DROP IN BOTH EYES DAILY BEFORE DINNER, # 2.5 mL, 0 Refills, [facility] 95211, 18, INSTILL 1 DROP IN BOTH EYES DAILY BEFORE DINNER, 158, cm, 04/14/21 11:28:00 EDT, Height, 98.6, kg, 04/11/21 15:59:00 EDT, Dry Weight Start Date: 04/14/21 Status: Ordered Lipitor 40 mg oral tablet 1 tablet = 40 mg, By Mouth, Daily, # 30 tablet, 5 Refills, Maintenance, 04/28/21 6:50:00 EDT, Tablet, [facility]/pharmacy #[id number], Partial fill upon patient [...] 12/06/20 13:03:00 EDT, Route to Pharmacy Electronically, [facility]/pharmacy #[id number], Partial fill upon patient request if the prescription is for a schedule II opioid drug... Start Date: 12/06/20 Stop Date: 06/04/21 Status: Ordered Metoprolol Succinate ER 25 mg oral tablet, extended release 1 tablet, By Mouth, Daily, # 90 tablet, 2 Refills, [facility] 585[facility], 158, cm, 04/25/21 14:49:00 EDT,Height, 98.6, kg, 04/11/21 15:59:00 EDT, Dry Weight Start Date: 06/01/21 Status: Ordered nitroglycerin 0.4 mg sublingual tablet 1 tablet = 0.4 mg, Sublingual, Every 5 minutes, PRN as needed for chest pain, not to exceed 3 doses/15 min--if pain persists, seek medical attention, # 100 tablet, 0 Refills, Maintenance, 03/15/21 12:38:00 EDT, Tablet, [facility]/pharmacy #[id number], Partial fill... Start Date: [...] 2 Refills, Maintenance, 05/26/21 12:47:00 EDT, Tablet, [facility]/pharmacy #[id number], Partial fill upon patient request if the prescription is for a schedule II opioid drug., 158, cm, 04/25/21 14:49:00 EDT, Height,... Start Date: 05/26/21 Status: Ordered thiamine 100 mg oral tablet 100 mg, 1, tablet, By Mouth, Daily, for 30 days, # 30 tablet, Refills 5, Tot. Refills 5, Acute 11/10/21 12:51:00 EDT, 05/14/21 12:51:00 EDT, [id number] Partial fill upon patient request if the prescription is... Start Date: 05/14/21 Stop Date: 11/10/21 Status: Ordered torsemide 20 mg oral tablet 1 tablet = 20 mg, By Mouth, Daily, # 30 tablet, 5 Refills, Maintenance, 05/10/21 4:19:00 EDT, Tablet, [facility]/pharmacy #[id number], Partial fill upon patient request if the prescription is for a schedule II opioid drug., 158, cm, 04/25/21 14:49:00 EDT, Height,... Start Date: 05/10/21 Status: Ordered Vitamin D2 50,000 intl units (1.25 mg) oral capsule 1 capsule = 50,000 International_Units, By Mouth, Every , # 8 capsule, 0 Refills, Maintenance, 04/14/21 12:50:00 EDT, [facility]/pharmacy #[id number], Partial fill upon patient [...]
--- OUTSIDE RECORDS SUMMARY | 2024-02-08 01:11 | XMS_ITS | Continuity of Care Document ---
Author Organization [facility] Gopi Jose lt Address [address] [place] [address]- Care Team Providers Care Model Maker Firearms Name Role Phone Rc CORDERO, Mick Clay Primary Care Physician [place] [facility] [place] 10/29/23 - 11/28/23 [facility] [address] [place] [address]- Allergies, Adverse Reactions, Alerts Substance Reaction Severity [...] 5 07/23/96 Recorde juan pablo Bingham Comment: [id number] 2Location History: DR LOAIZA 3Location History: DR LOAIZA 4Location History: DR LOAIZA 5Location History: DR LOAIZA Medications atorvastatin 40 mg oral tablet 1 tablet, By Mouth, Daily at bedtime, # 90 tablet, 1 Refills, Maintenance, 10/30/23 9:30:00 EDT, [facility], 157, cm, 10/26/23 13:58:00 EDT, Height, 94.3, [...] Gm, 1 Refills, Maintenance, 06/29/23 16:21:00 EST, [facility]/pharmacy #[id number], Partial safia... Start Date: 06/29/23 Status: Ordered duloxetine 20 mg oral enteric coated capsule 1 capsule, By Mouth, Daily at bedtime, # 90 capsule, 3 Refills, Maintenance, 09/26/23 5:28:00 EST, [facility], 157, cm, 09/18/23 11:23:00 EST, Height, 94.3, kg, 01/19/22 4:25:00 EDT, Dry Weight Start Date: 09/26/23 Status: Ordered Eliquis 5 mg oral tablet 1 tablet, By Mouth, 2 times a day, # 180 tablet, 3 Refills, Maintenance, 06/15/23 1:44:00 EST, [facility], 157, cm, 05/31/23 6:38:00 EST, Height, 94.3, kg, 01/19/22 4:25:00 EDT, Dry Weight Start Date: 06/15/23 Status: Ordered isosorbide mononitrate 60 mg oral tablet, extended release 1 tablet, By Mouth, 2 times a day, # 180 tablet, 3 Refills, Maintenance, 06/13/23 8:27:00 EST, [facility], 157, cm, 05/31/23 6:38:00 EST, Height, 94.3, kg, 01/19/22 4:25:00 EDT, Dry Weight Start Date: 06/13/23 Status: Ordered Jardiance 10 mg oral tablet 1 tablet, By Mouth, Daily in AM, # 90 tablet, 3 Refills, Maintenance, 06/04/23 8:09:00 EST, [facility], 157, cm, 05/31/23 6:38:00 EST, Height, 94.3, kg, 01/19/22 4:25:00 EDT, Dry Weight Start Date: 06/04/23 Stop Date: 09/02/23 Status: Ordered Metoprolol Succinate ER 25 mg oral tablet, extended release 1 tablet, By Mouth, Daily, # 30 tablet, 0 Refills, Maintenance, 11/26/23 7:55:00 EDT, [facility], 157, cm, 11/13/23 16:25:00 EDT, Height, 94.3, kg, 01/19/22 4:25:00 EDT, Dry Weight Start Date: 11/26/23 Status: Ordered nitroglycerin 0.4 mg sublingual tablet 1 tablet = 0.4 mg, Sublingual, Every 5 minutes, PRN as needed for chest pain, not to exceed 3 doses/15 min--if pain persists, seek medical attention, # 100 tablet, 0 Refills, Maintenance, 12/19/22 9:51:00 EDT, Tablet, [facility]/pharmacy #[id number], Partial fill... Start Date: 12/19/22 Status: Ordered oxyCODONE 5 mg oral tablet 5 mg, 1, tablet, By Mouth, 2 times a day, PRN, # 56 tablet, Refills 0, Tot. Refills 0, Acute 06/28/24 12:36:00 EST, as needed for pain, 06/28/23 12:35:00 EST, [facility] [...] tablet, 1 Refills, Maintenance, 09/17/23 7:52:00 EST, [facility], 157, cm, 08/14/23 10:05:00 EST, Height, 94.3, kg, 01/19/22 4:25:00 EDT, Dry Weight Start Date: 09/17/23 Status: Ordered spironolactone 25 mg oral tablet 25 mg, 1, tablet, By Mouth, 2 times a day, # 180 tablet, Refills 3, Tot. Refills 3, Maintenance, 08/27/23 12:45:00 EST, Route to Pharmacy Electronically, [facility]/pharmacy #[id number], Partial fill upon patientrequest if the prescription is for a schedule II op... Start Date: 08/27/23 Stop Date: 08/21/24 Status: Ordered torsemide 20 mg oral tablet 2 tablet, By Mouth, Daily, # 180 tablet, 3 Refills, Maintenance, 08/13/23 9:50:00 EST, [facility], 157, cm, 06/27/23 16:10:00 EST, Height, 94.3, [...] Team Personnel Name: Estrellita Putnam RN [facility] Tatum MD Position: [facility] Physician - Primary Care Member Role: PCP Address: Address: [address] [place] [phone]- [place] Name: Svitlana Clark RN Position: [facility] RN Member Role: Primary Care Nurse Name: Yoana Guevara RN Position: [facility] RN Member Role: Primary Care Nurse Name: Pierre Groves RN Position: [facility] RN Member Role: Primary Care Nurse Name: Carmen Murphy NP Position: [facility] PCO Associate Professional Member Role: Primary Care Nurse Address: Address: [address] [place] [address]- [place] Name: Rylie Ordonez RN Position: [facility] RN Member Role: Primary Care Nurse Name: Marisa Negrete RN Position: [facility] AMB Nurse Member Role: Primary Care Nurse Name: Aditi Brown RN Position: [facility] Onco RN Member Role: Primary Care Nurse Name: Chana Cazares RN Position: [facility] RN Member Role: Primary Care Nurse Name: Toshia Urbina RN Position: [facility] RN Member Role: Primary Care Nurse Name: Isabel Gray Position: [facility] MA Corporate Administrator Member Role: Moss Bleacher Name: Aniyah Sloan RN Position: [facility] SN RN Member Role: Primary Care Nurse Name: Rosemary Ramon RN Position: [facility] OB RN Member Role: Primary Care Nurse Name: Sneha Newton RN Position: [facility] Hospital Primary Grade Teacher Member Role: Primary Care Nurse Care Team Related Persons Name: CLAUDIA URBINA Address: [address] [place] [address] Name: RALPH SÁNCHEZ Address: [address] [place] [address] Name: DONY CARCAMO Address: [address] [place] [address]
--- OUTSIDE RECORDS SUMMARY | 2024-02-08 01:11 | XMS_ITS | Continuity of Care Document ---
Author Organization [facility] Jose lt Address [address] [place] [address]- Care Team Providers Care Wire Spinner Name Role Phone Mick Tatum MD Primary Care Physician [place] [facility] [place] 12/10/23 - 01/09/24 [facility] Adult [address] [place] [address]- Allergies, Adverse Reactions, Alerts Substance Reaction Severity [...] 5 07/23/96 Recorde juan pablo Bingham Comment: [phone] 2Location History: DR LOAIZA 3Location History: DR LOAIZA 4Location History: DR LOAIZA 5Location History: DR LOAIZA Medications atorvastatin 40 mg oral tablet 1 tablet, By Mouth, Daily at bedtime, # 90 tablet, 1 Refills, Maintenance, 10/30/23 9:30:00 EDT, [facility] [id number], 157, cm, 10/26/23 13:58:00 EDT, Height, 94.3, [...] Refills, Maintenance, 06/29/23 16:21:00 EST, [facility]/pharmacy #[id number], Partial safia... Start Date: 06/29/23 Status: Ordered duloxetine 20 mg oral enteric coated capsule 1 capsule, By Mouth, Daily at bedtime, # 90 capsule, 3 Refills, Maintenance, 09/26/23 5:28:00 EST, [facility] [id number], 157, cm, 09/18/23 11:23:00 EST, Height, 94.3, kg, 01/19/22 4:25:00 EDT, Dry Weight Start Date: 09/26/23 Status: Ordered Eliquis 5 mg oral tablet 1 tablet, By Mouth, 2 times a day, # 180 tablet, 3 Refills, Maintenance, 06/15/23 1:44:00 EST, [facility] [id number], 157, cm, 05/31/23 6:38:00 EST, Height, 94.3, kg, 01/19/22 4:25:00 EDT, Dry Weight Start Date: 06/15/23 Status: Ordered isosorbide mononitrate 60 mg oral tablet, extended release 1 tablet, By Mouth, 2 times a day, # 180 tablet, 3 Refills, Maintenance, 06/13/23 8:27:00 EST, [facility] [id number], 157, cm, 05/31/23 6:38:00 EST, Height, 94.3, kg, 01/19/22 4:25:00 EDT, Dry Weight Start Date: 06/13/23 Status: Ordered Jardiance 10 mg oral tablet 1 tablet, By Mouth, Daily in AM, # 90 tablet, 3 Refills, Maintenance, 06/04/23 8:09:00 EST, [facility] [id number], 157, cm, 05/31/23 6:38:00 EST, Height, 94.3, kg, 01/19/22 4:25:00 EDT, Dry Weight Start Date: 06/04/23 Stop Date: 09/02/23 Status: Ordered Metoprolol Succinate ER 25 mg oral tablet, extended release 1 tablet, By Mouth, Daily, # 30 tablet, 0 Refills, Maintenance, 11/26/23 7:55:00 EDT, [facility] 69179, 157, cm, 11/13/23 16:25:00 EDT, Height, 94.3, kg, 01/19/22 4:25:00 EDT, Dry Weight Start Date: 11/26/23 Status: Ordered nitroglycerin 0.4 mg sublingual tablet 1 tablet = 0.4 mg, Sublingual, Every 5 minutes, PRN as needed for chest pain, not to exceed 3 doses/15 min--if pain persists, seek medical attention, # 100 tablet, 0 Refills, Maintenance, 12/19/22 9:51:00 EDT, Tablet, [facility]/pharmacy #[id number], Partial fill... Start Date: 12/19/22 Status: Ordered oxyCODONE 5 mg oral tablet 5 mg, 1, tablet, By Mouth, 2 times a day, PRN, # 56 tablet, Refills 0, Tot. Refills 0, Acute 06/28/24 12:36:00 EST, as needed for pain, 06/28/23 12:35:00 EST, Route to Pharmacy Electronically, [facility]/pharmacy #[id number], Partial fill upon patient request if t... Start Date: 06/28/23 Stop Date: 06/28/24 Status: Ordered pantoprazole 40 mg oral delayed release tablet 0 Refills, Maintenance, 03/21/23 14:39:00 EDT Start Date: 03/21/23 Status: Ordered rOPINIRole 0.5 mg oral tablet 1 tablet, By Mouth, 4 times a day, # 360 tablet, 1 Refills, Maintenance, 09/17/23 7:52:00 EST, [facility] [id number], 157, cm, 08/14/23 10:05:00 EST, Height, 94.3, kg, 01/19/22 4:25:00 EDT, Dry Weight Start Date: 09/17/23 Status: Ordered spironolactone 25 mg oral tablet 25 mg, 1, tablet, By Mouth, 2 times a day, # 180 tablet, Refills 3, Tot. Refills 3, Maintenance, 08/27/23 12:45:00 EST, Route to Pharmacy Electronically, [facility]/pharmacy #[id number], Partial fill upon patientrequest if the prescription is for a schedule II op... Start Date: 08/27/23 Stop Date: 08/21/24 Status: Ordered torsemide 20 mg oral tablet 2 tablet, By Mouth, Daily, # 180 tablet, 3 Refills, Maintenance, 08/13/23 9:50:00 EST, [id number], 157, cm, 06/27/23 16:10:00 EST, Height, 94.3, [...] Team Personnel Name: Estrellita Putnam RN Position: [facility] RN Member Role: Primary Care Nurse Name: Marlen Kenny RN Position: [facility] RN Member Role: Primary Care Nurse Name: Toshia Muhammad RN Position: [facility] RN Martha Member Role: Primary Care Nurse Name: Suleman Jones RN Position: [facility] RN Member Role: Primary Care Nurse Name: Kathy Medina RN Position: [facility] RN Member Role: Primary Care Nurse Name: Marguerite Wang RN Position: [facility] RN Member Role: Primary Care Nurse Name: Mick Tatum MD Position: [facility] Physician - Primary Care Member Role: PCP Address: Address: [address] [place] [address]- [place] Name: Svitlana Clark RN Position: [facility] RN Member Role: Primary Care Nurse Name: Yoana Guevara RN Position: [facility] RN Member Role: Primary Care Nurse Name: Pierre Groves RN Position: [facility] RN Member Role: Primary Care Nurse Name: Carmen Murphy NP Position: [facility] PCO Associate Professional Member Role: Primary Care Nurse Address: Address: [address] [place] [address]- [place] Name: Rylie Ordonez RN Position: [facility] RN Member Role: Primary Care Nurse Name: Marisa Negrete RN Position: [facility] AMB Nurse Member Role: Primary Care Nurse Name: Aditi Brown RN Position: [facility] Onco RN Member Role: Primary Care Nurse Name: Chana Cazares RN Position: [facility] RN Member Role: Primary Care Nurse Name: Toshia Urbina RN Position: [facility] RN Member Role: Primary Care Nurse Name: Isabel Gray Position: [facility] MA Paleontological Helper Member Role: Lab Support Tech Name: Aniyah Sloan RN Position: [facility] SN RN Member Role: Primary Care Nurse Name: Rosemary Ramon RN Position: [facility] OB RN Member Role: Primary Care Nurse Name: Sneha Newton RN Position: [facility] Hospital Speech Pathologist Assistant Member Role: Primary Care Nurse Care Team Related Persons Name: CLAUDIA URBINA Address: home [address] [place] [address] Name: RALPH SÁNCHEZ Address: home [address] [place] [address] Name: DONY CARCAMO Address: [address] [place] [address]
--- OUTSIDE RECORDS SUMMARY | 2024-02-08 01:11 | XMS_ITS | Continuity of Care Document ---
Author Organization [facility] Jose [facility] Address [address] [place] [address]- Care Team Providers Care Director Of Strategic Alliances Name Role Phone Rc CORDERO, Mick Clay Primary Care Physician Encounter [facility] [place] Date(s): 11/08/21 - 12/08/21 [facility] Adult [address] [place] [address]- Allergies, Adverse Reactions, Alerts Substance Reaction Severity [...] Route to Pharmacy Electronically, [facility]/pharmacy #[id number], Partial fill upon patient request if the prescription is for a schedule II opioid drUriel.. Start Date: 07/09/21 Stop Date: 07/04/22 Status: Ordered Cosopt 2.23%-0.68% ophthalmic solution 1 drops, Eyes, Both, 2 times a day, # 10 mL, 0 Refills, Maintenance, 03/23/21 9:41:00 EDT, Solution, [facility]/pharmacy #[id number], Partial fill upon patient request if [...] 10/07/19 10:56:00 EDT, Gel, [facility]/pharmacy #[id number], 160, cm, 08/19/19 8:02:00 EST, Height Start Date: 10/07/19 Status: Ordered Eliquis 5 mg oral tablet 1 tablet, By Mouth, 2 times a day, # 180 tablet, 3 Refills, [facility] STORE 58262, 158, cm, 06/09/21 10:14:00 EST, Height, 98.6, kg, 04/11/21 15:59:00 EDT, Dry Weight Start Date: 06/17/21 Status: Ordered empagliflozin 10 mg oral tablet 1 tablet = 10 mg, By Mouth, Daily in AM, # 90 tablet, 3 Refills, Maintenance, 06/09/21 12:06:00 EST, Tablet, [facility]/pharmacy #[id number], Partial fill upon patient request if [...] Route to Pharmacy Electronically, [facility]/pharmacy #[id number], 159, cm, 07/25/21 11:20:00 EST, Height, 98, kg, 07/06/21 19:57:00 EST, Dry Weight Start Date: 07/31/21 Status: Ordered isosorbide mononitrate 30 mg oral tablet, extended release 1 tablet, By Mouth, Daily, for 90 days, # 90 tablet, 3 Refills, Physician Stop 04/20/22 16:32:00 EDT, 04/25/21 16:32:00 EDT, [facility]/pharmacy #[id number], 158, cm, 04/25/21 14:49:00 EDT, Height, [...] # 2.5 mL, 0 Refills, [facility] STORE 96272, 18, INSTILL 1 DROP IN BOTH EYES DAILY BEFORE DINNER, 158, cm, 04/14/21 11:28:00 EDT, Height, 98.6, kg, 04/11/21 15:59:00 EDT, Dry Weight Start Date: 04/14/21 Status: Ordered Lipitor 40 mg oral tablet 1 tablet = 40 mg, By Mouth, Daily, # 30 tablet, 5 Refills, Maintenance, 04/28/21 6:50:00 EDT, Tablet, [facility]/pharmacy #[id number], Partial fill upon patient request if [...] Route to Pharmacy Electronically, [facility]/pharmacy #[id number], Partial fill upon patient request if [...] 03/15/21 12:38:00 EDT, Tablet, [facility]/pharmacy #[id number], Partial fill... Start Date: 03/15/21 Status: Ordered rOPINIRole 0.5 mg oral tablet 1 tablet, By Mouth, 4 times a day, # 360 tablet, 1 Refills, [facility] STORE 68395, 159, cm, 11/14/21 9:20:00 EDT, Height, 98, kg, 07/06/21 19:57:00 EST, Dry Weight Start Date: 11/22/21 Status: Ordered spironolactone 25 mg oral tablet 25 mg, 1, tablet, By Mouth, 2 times a day, # 180 tablet, Refills 3, Tot. Refills 3, Maintenance, 11/14/21 9:55:00 EDT, Route to Pharmacy Electronically, [facility]/pharmacy #[id number], Partial fill upon patient request if the prescription is for a schedule II opi... Start Date: 11/14/21 Stop Date: 11/09/22 Status: Ordered torsemide 20 mg oral tablet 2 tablet = 40 mg, By Mouth, Daily, # 90 tablet, 1 Refills, 11/30/21 10:00:00 EDT, [facility] STORE [id number], 159, cm, 10/26/21 10:50:00 EDT, Height, 98, [...] Active Sarcoidosis(Confirmed) Active Peripheral sensory neuropathy(Confirmed) Active Severe obesity(Confirmed) Active Ulcerative colitis(Confirmed) Active Vertigo(Confirmed) Active 1RT LEG 2BILATERAL KNEES Social History Social History Type Response Smoking Status Never (less than 100 in lifetime) entered on: 06/27/18 Sex
--- OUTSIDE RECORDS SUMMARY | 2024-02-08 01:11 | XMS_ITS | Continuity of Care Document ---
Author Organization [facility] Jose lt Address [address] [place] [address]- Care Team Providers Care Building Maintenance Custodian Name Role Phone Mick Tatum MD Primary Care Physician [phone] Encounter [facility] [place] Date(s): 05/26/21 - 06/02/21 [facility] [place] [facility] [address] [place] [address]- Attending Physician: Mick Tatum MD Allergies, Adverse Reactions, Alerts Substance Reaction Severity Status amoxicillin 1 Active Other Food Allergy 2 chicken, peppers, [...] EDT, Route to Pharmacy Electronically, [facility]/pharmacy #[id number], Partial fill upon patient request if the prescription... Start Date: 04/27/21 Stop Date: 10/24/21 Status: Ordered aspirin 81 mg oral delayed release tablet 81 mg, 1, tablet, By Mouth, Daily, # 30 tablet, Refills 5, Tot. Refills 5, Maintenance, 10/24/21 13:28:00 EDT, Route to Pharmacy Electronically, [facility]/pharmacy #[id number], Partial fill upon patient request if the prescription is for a schedule II opioid drug... Start Date: 10/24/21 Stop Date: 04/22/22 Status: Ordered atorvastatin 40 mg oral tablet 1 tablet, By Mouth, Daily at bedtime, for 90 days, # 90 tablet, 3 Refills, Physician Stop 04/20/22 16:32:00 EDT, 04/25/21 16:32:00 EDT, [facility]/pharmacy #[id number], 158, cm, 04/25/21 14:49:00 EDT, Height, [...] Maintenance, 03/23/21 9:41:00 EDT, Solution, [facility]/pharmacy #[id number], Partial fill upon patient request if the prescription is for a schedule II opioid drug., 1 drops Eyes, Both 2 times a day, 159, cm... Start Date: 03/23/21 Status: Ordered [facility] ASPIRIN EC 81 MG TABLET [facility] ASPIRIN EC 81 MG TABLET, 1, tablet, By Mouth, Daily, # 30 tablet, 0 Refills, 158, cm, 04/14/21 11:28:00 EDT, Height, 98.6, kg, 04/11/21 15:59:00 EDT, Dry Weight Start Date: 04/22/21 Status: Ordered diclofenac 1% topical gel 1 application, Topically, 4 times a day, # 100 Gm, 5 Refills, Maintenance, 10/07/19 10:56:00 EDT, Gel, [facility]/pharmacy #[id number], 160, cm, 08/19/19 8:02:00 EST, Height Start Date: 10/07/19 Status: Ordered Eliquis 5 mg oral tablet 1 tablet, By Mouth, 2 times a day, # 180 tablet, 3 Refills, Maintenance, 07/12/20 14:12:00 EST, [facility], 157, cm, 05/07/20 11:34:00 EDT, Height, 91, kg, 02/28/20 22:14:00 EDT, Dry Weight Start Date: 07/12/20 Status: Ordered gabapentin 400 mg oral capsule See Instructions, 2 capsule By Mouth 3 times a day, # 180 capsule, Refills 0, Tot. Refills 0, Maintenance, 03/16/21 10:36:00 EDT, Instructions Replace Required Details, Route to Pharmacy Electronically, [facility]/pharmacy #[id number], Partial fill upon patient re... Start Date: 03/16/21 Status: Ordered HYDROmorphone 2 mg oral tablet 1 tablet = 2 mg, By Mouth, Every 12 hours, PRN Pain , Severe, Dx: Severe lumbar degen disc disease,# 12 tablet, 0 Refills, Acute 06/03/21 17:23:00 EST, 06/02/21 13:00:00 EST, [facility]/pharmacy #[id number], Partial fill upon patient request if the prescription i... Start Date: 06/02/21 Stop Date: 06/03/21 Status: Ordered isosorbide mononitrate 30 mg oral tablet, extended release 1 tablet, By Mouth, Daily, for 90 days, # 90 tablet, 3 Refills, Physician Stop 04/20/22 16:32:00 EDT, 04/25/21 16:32:00 EDT, [facility]/pharmacy #[id number], 158, cm, 04/25/21 14:49:00 EDT, Height, 98.6, kg, 04/11/21 15:59:00 EDT, Dry Weight Start Date: 04/25/21 Stop Date: 04/20/22 Status: Ordered latanoprost 0.005% ophthalmic solution See Instructions, INSTILL 1 DROP IN BOTH EYES DAILY BEFORE DINNER, # 2.5 mL, 0 Refills, [facility] STORE 68735, 18, INSTILL 1 DROP IN BOTH EYES DAILY BEFORE DINNER, 158, cm, 04/14/21 11:28:00 EDT, Height, 98.6, kg, 04/11/21 15:59:00 EDT, Dry Weight Start Date: 04/14/21 Status: Ordered Lipitor 40 mg oral tablet 1 tablet = 40 mg, By Mouth, Daily, # 30 tablet, 5 Refills, Maintenance, 04/28/21 6:50:00 EDT, Tablet, [facility]/pharmacy #[id number], Partial fill upon patient request if [...] EDT, Route to Pharmacy Electronically, [facility]/pharmacy #[id number], Partial fill upon patient request if the prescription is for a schedule II opioid drug... Start Date: 12/06/20 Stop Date: 06/04/21 Status: Ordered Metoprolol Succinate ER 25 mg oral tablet, extended release 1 tablet, By Mouth, Daily, # 90 tablet, 2 Refills, [facility] ST[facility] 80183, 158, cm, 04/25/21 14:49:00 EDT,Height, 98.6, kg, 04/11/21 15:59:00 EDT, Dry Weight Start Date: 06/01/21 Status: Ordered nitroglycerin 0.4 mg sublingual tablet 1 tablet = 0.4 mg, Sublingual, Every 5 minutes, PRN as needed for chest pain, not to exceed 3 doses/15 min--if pain persists, seek medical attention, # 100 tablet, 0 Refills, Maintenance, 03/15/21 12:38:00 EDT, Tablet, [facility]/pharmacy #[id number], Partial fill... Start Date: 03/15/21 Status: [...] Maintenance, 05/26/21 12:47:00 EDT, Tablet, [facility]/pharmacy #[id number], Partial fill upon patient request if the prescription is for a schedule II opioid drug., 158, cm, 04/25/21 14:49:00 EDT, Height,... Start Date: 05/26/21 Status: Ordered thiamine 100 mg oral tablet 100 mg, 1, tablet, By Mouth, Daily, for 30 days, # 30 tablet, Refills 5, Tot. Refills 5, Acute 11/10/21 12:51:00 EDT, 05/14/21 12:51:00 EDT, Route to Pharmacy Electronically, [facility]/pharmacy #[id number], Partial fill upon patient request if the prescription is... Start Date: 05/14/21 Stop Date: 11/10/21 Status: Ordered torsemide 20 mg oral tablet 1 tablet = 20 mg, By Mouth, Daily, # 30 tablet, 5 Refills, Maintenance, 05/10/21 4:19:00 EDT, Tablet, [facility]/pharmacy #[id number], Partial fill upon patient request if the prescription is for a schedule II opioid drug., 158, cm, 04/25/21 14:49:00 EDT, Height,... Start Date: 05/10/21 Status: Ordered Vitamin D2 50,000 intl units (1.25 mg) oral capsule 1 capsule = 50,000 International_Units, By Mouth, Every , # 8 capsule, 0 Refills, Maintenance, 04/14/21 12:50:00 EDT, [facility]/pharmacy #[id number], Partial fill upon patient request if [...]
--- OUTSIDE RECORDS SUMMARY | 2024-02-08 01:11 | XMS_ITS | Continuity of Care Document ---
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, cm, 03/10/20 8:47:00 [...] 03/10/20 10:48:00 EDT, Route to Pharmacy Electronically, [facility]/pharmacy #[id number], 157, cm, 03/10/20 8:47:00 EDT, Height, 91, kg, 02/28/20 22:14:00 EDT, Dry W... Start Date: 03/10/20 Stop Date: 03/17/20 Status: Ordered gabapentin 400 mg oral capsule 400 mg, 1, capsule, By Mouth, 3 times a day, # 270 capsule, Refills 2, Tot. Refills 2, Maintenance,03/30/20 8:48:00 EDT, [id number], cm, 03/11/20 12:49:00 EDT, Height, 91, kg, 02/28/20 22:14:00 EDT, Dry... Start Date: 03/30/20 Stop Date: 12/25/20 Status: Ordered HYDROmorphone 2 mg oral tablet 1 tablet = 2 mg, By Mouth, Every 6 hours, PRN as needed for pain, # 28 tablet, 0 Refills, Maintenance, 03/11/20 15:06:00 EDT, Tablet, [facility]/pharmacy #[id number], [...] 03/10/20 10:51:00 EDT, Route to Pharmacy Electronically, [facility]/pharmacy #[id number], 157, cm, 03/10/20 8:47:00 EDT, Height, [...]
--- OUTSIDE RECORDS SUMMARY | 2024-02-08 01:11 | XMS_ITS | Continuity of Care Document ---
Author Organization [facility] Jose lt Address [address] [place] [address]- Care Team Providers Care Warehouse Coordinator Name Role Phone Ignacio Parish MD Primary Care Physician Encounter [facility] [place] Date(s): 01/21/20 - 01/28/20 [facility] Adult [address] [place] [address]- [facility] Attending Physician: [...] 5 Refills, Maintenance, 10/07/19 10:56:00 EDT, Gel, [facility]/pharmacy #[id number], 160, cm, 08/19/19 8:02:00 EST, Height Start Date: 10/07/19 Status: Ordered Eliquis 5 mg oral tablet 1 tablet, By Mouth, 2 times a day, # 180 tablet, Refills 3 Tot. Refills 3, [facility]/pharmacy #[id number] Start Date: 06/17/19 Status: Ordered Flonase 50 mcg/inh nasal spray 2 sprays, Nares, Both, Daily, # 16 Gm, 5 Refills, Maintenance, 10/29/19 12:45:00 EDT, [facility]/pharmacy #[id number], 2 sprays Nares, Both Daily, 160, cm, 08/19/19 8:02:00 EST, Height Start Date: 10/29/19 Status: Ordered gabapentin 300 mg oral capsule 300 mg, 1, capsule, By Mouth, 3 times a day, # 90 capsule, Refills 2, Tot. Refills 2, Maintenance, 03/20/19 12:07:35 EDT, Route to Pharmacy Electronically, [id number], [facility]/pharmacy #[id number] Start Date: 03/20/19 Status: Ordered Lialda 1.2 g oral delayed release tablet 2 tablet = 2.4 Gm, By Mouth, Daily, 0 Refills, Maintenance, 06/27/18 15:39:26 EST Start Date: 06/27/18 Status: Ordered predniSONE 20 mg oral tablet 2 tablet = 40 mg, By Mouth, Daily, # 14 tablet, 0 Refills, Maintenance, 11/06/19 14:38:00 EDT, [facility]/pharmacy #[id number], 160, cm, 08/19/19 8:02:00 EST, Height [...] oldest [Reference Range]: 1 Height 160.00 cm (01/21/20 8:44 AM) Social History Social History Type Response Smoking Status Never (less than 100 in lifetime) entered on: 06/27/18 Sex
--- OUTSIDE RECORDS SUMMARY | 2024-02-08 01:11 | XMS_ITS | Continuity of Care Document ---
Author Organization [facility] ter Address [address] [place] [id number]- Care Team Providers Care Financial Planning Consultant Name Role Phone Mick Tatum MD Primary Care Physician [phone] Encounter [facility] Date(s): 04/04/21 - 04/07/[address] [id number] Encounter Diagnosis UTI, Hypokalemia, hypoxia(Final) - 04/04/21 Discharge Disposition: A-D/C Home Attending Physician: Marky NGUYEN, Elias Admitting Physician: Leandro Walker DO Referring Physician: Not on Staff, Referring MD [...] oral tablet 5 mg, Tablet, By Mouth, 04/07/21 9:00:00 EDT Start Date: 04/07/21 Stop Date: 04/07/21 Status: Completed amLODIPine 5 mg oral tablet 1 tablet, By Mouth, Daily, # 90 tablet, 1 Refills, [facility], 159, cm, 03/23/21 9:06:00 EDT, Height, 100.2, [...] 3 Refills, Maintenance, 07/12/20 14:12:00 EST, [facility], 157, cm, 05/07/20 11:34:00 EDT, Height, 91, kg, 02/28/20 22:14:00 EDT, Dry Weight Start Date: 07/12/20 Status: Ordered furosemide 20 mg oral tablet 1, tablet, By Mouth, Daily, # 30 tablet, Refills 0, Route to Pharmacy Electronically, [facility], 159, cm, 03/15/21 14:39:00 EDT, Height, 100.2, kg, 03/15/21 4:17:00 EDT, Dry Weight Start Date: 03/21/21 Status: Ordered gabapentin 400 mg oral capsule 800 mg, Capsule, By Mouth, 04/07/21 9:00:00 EDT Start Date: 04/07/21 Stop Date: 04/07/21 Status: Completed gabapentin 400 mg oral capsule See Instructions, 2 capsule By Mouth 3 times a day, # 180 capsule, Refills 0, Tot. Refills 0, Maintenance, 03/16/21 10:36:00 EDT, Instructions Replace Required Details, Route to Pharmacy Electronically, [facility]/pharmacy [...] mg oral tablet, extended release 25 mg, Tablet, By Mouth, 04/07/21 9:00:00 EDT Start Date: 04/07/21 Stop Date: 04/07/21 Status: Completed nitroglycerin 0.4 mg sublingual tablet [...] Exam Date Time Procedure Performing Provider Status 04/04/21 8:04 AM Chest 2 Views Frontal and Lat Marguerite Pineda; Larry (Verified) Notes: (Chest 2 Views Frontal and Lat) Reason For Exam: Chest Pain;Other: RESULT: Chest 2 Views Frontal and Lat Examination: Chest performed on 04/04/2021. History: Increased abdominal pain, nausea, vomiting, diarrhea. Chest pain. Findings: Frontal and lateral views of the chest are compared to a prior study dated 04/01/2021. The cardiac and mediastinal silhouettes are within normal limits. Bibasilar atelectasis is seen. Reticular increased interstitial lung markings bilaterally may be due to relatively volumes. 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 Osteophyte formation within the thoracic spine is present. Impression: Bibasilar atelectasis. WSN: [id number] Ordering Physician: José Yancey Dictated By: Megan Lang MD Dictated Date/Time: 04/04/21 8:13 am Reviewed By: Megan Lang MD Signed By: Megan Lang MD Signed Date/Time: 04/04/21 8:13 am Transcribed By: WENDY Transcribed Date/Time: 04/04/21 8:10 am Vital Signs Most recent to oldest [Reference Range]: 1 2 3 Height 158 cm (04/07/21 11:42 AM) 158 cm (04/06/21 1:16 PM) 158 cm (04/06/21 7:59 AM) Weight 99.2 kg (04/05/21 5:00 AM) 99.2 kg (04/05/21 4:51 AM) Oxygen Saturation [94-100 %] 98 % (04/07/21 11:42 AM) 94 % (04/07/21 7:00 AM) 93 % *L* (04/07/21 2:00 AM) Pulse Rate [55-90 bpm] 76 bpm (04/07/21 11:00 AM) 76 bpm (04/07/21 8:49 AM) 77 bpm (04/07/21 7:00 AM) Body Mass Index [18.5-24.99] 39.74 *>HHI* (04/05/21 4:51 AM) Blood Pressure [90-138/55-84 mm Hg] 113/50mm Hg (04/07/21 11:42 AM) 131/59mm Hg (04/07/21 8:49 AM) 131/59mm Hg (04/07/21 8:48 AM) Respiratory Rate [16-30 br/min] 18 br/min (04/07/21 11:42 AM) 17 br/min (04/07/21 8:49 AM) 18 br/min (04/07/21 2:00 AM) Temperature [96.8-100.4 DegF] 97.3 DegF (04/07/21 11:42 AM) 97.6 DegF (04/07/21 2:00 AM) 98.2 DegF (04/06/21 9:00 PM) Liters per Minute 1 L/min (04/06/21 7:59 AM) 1 L/min (04/05/21 11:00 PM) 1 L/min (04/05/21 7:00 PM) Mode of Delivery (Oxygen) Room air (04/07/21 11:42 AM) Room air (04/07/21 7:00 AM) Room air (04/07/21 2:00 AM) Blood pressure sites Arm, left (04/07/21 11:42 AM) Arm, right (04/07/21 2:00 AM) Arm, right (04/06/21 9:00 PM) Temperature Route Oral (04/07/21 11:42 AM) Oral (04/07/21 2:00 AM) Oral (04/06/21 9:00 PM) Dry Weight 0.2 kg (04/05/21 4:51 AM) Weight Obtained Via Bed scale (04/05/21 5:00 AM) Bed scale (04/05/21 4:51 AM) Dry Weight Obtained Via Bed scale (04/05/21 4:51 AM) Social History Social History Type Response Smoking Status Never (less than 100 in lifetime) entered on: 06/27/18 Sex
--- OUTSIDE RECORDS SUMMARY | 2024-02-08 01:11 | XMS_ITS | Continuity of Care Document ---
Author Organization [facility] Address [address] [place] [phone]- Care Team Providers Care Vice President Underwriting Name Role Phone Mick Tatum MD Primary Care Physician Encounter [facility] Date(s): 08/24/22 - 09/23/22 [facility] [address] [place] [address]- [place] Allergies, Adverse Reactions, Alerts Substance Reaction [...] Given Parent Or Guardian Refuses 1Result Comment: [id number] 2Location History: DR LOAIZA 3Location History: DR LOAIZA 4Location History: DR LOAIZA 5Location History: DR LOAIZA Medications atorvastatin 40 mg oral tablet 1 tablet, By Mouth, Daily at bedtime, # 90 tablet, 3 Refills, Maintenance, 05/13/22 7:24:00 EDT, [facility], 157, cm, 05/12/22 13:47:00 EDT, Height, 94.3, [...] EDT, 01/18/22 6:58:00 EDT, CR Capsule, [facility]/pharmacy #[id number], Partial fill upon [...] 3 Refills, Maintenance, 05/27/22 16:57:00 EDT[facility], cm, 05/12/22 13:47:00 EDT, Height, 94.3, kg, 01/19/22 4:25:00 EDT, Dry Weight Start Date: 05/27/22 Status: Ordered empagliflozin 10 mg oral tablet 1 tablet = 10 mg, By Mouth, Daily in AM, # 90 tablet, 3 Refills, Maintenance, 06/09/22 12:36:00 EST, Tablet, [facility]/pharmacy #[id number], Partial fill [...] 15:05:00 EST, Route to Pharmacy Electronically, [facility]/pharmacy #[id number], 157, cm, 07/27/22 15:56:00 EST, Height, 94.3, kg, 01/19/22 4:25:00 EDT, Dry Weight Start Date: 08/28/22 Status: Ordered ibuprofen 400 mg oral tablet 400 mg, 1, tablet, By Mouth, 2 times a day, for 14 days, # 28 tablet, Refills 0, Tot. Refills 0, Acute 09/29/22 15:35:00 EST, 09/15/22 15:35:00 EST, Route to Pharmacy Electronically, [facility]/pharmacy #[id number], replaces meloxicam, 157, cm, 09/15/22 11:19:00 E... Start Date: 09/15/22 Stop Date: 09/29/22 Status: Ordered isosorbide mononitrate 60 mg oral tablet, extended release 60 mg, 1, tablet, By Mouth, 2 times a day, # 180 tablet, Refills 3, Tot. Refills 3, Maintenance, 07/10/22 16:07:00 EST, Route to Pharmacy Electronically, [facility]/pharmacy #[id number], Partial fill upon patientrequest if the prescription is for a schedule II op... Start Date: 07/10/22 Status: Ordered latanoprost 0.005% ophthalmic solution See Instructions, INSTILL 1 DROP IN BOTH EYES DAILY BEFORE DINNER, # 2.5 mL, 0 Refills, [facility], 18, INSTILL 1 DROP IN BOTH EYES DAILY BEFORE DINNER, 158, cm, 04/14/21 11:28:00 EDT, Height, 98.6, kg, 04/11/21 15:59:00 EDT, Dry Weight Start Date: 04/14/21 Status: Ordered Metoprolol Succinate ER 25 mg oral tablet, extended release 1 tablet, By Mouth, Daily, # 90 tablet, 2 Refills, [facility], 159, cm, 12/21/21 15:41:00 EDT,Height, 93.6, kg, 01/06/22 9:12:00 EDT, Dry Weight Start Date: 01/16/22 Status: Ordered nitroglycerin 0.4 mg sublingual tablet 1 tablet = 0.4 mg, Sublingual, Every 5 minutes, PRN as needed for chest pain, not to exceed 3 doses/15 min--if pain persists, seek medical attention, # 100 tablet, 0 Refills, Maintenance, 03/15/21 12:38:00 EDT, Tablet, [facility]/pharmacy #[id number], Partial fill... Start Date: 03/15/21 Status: Ordered rOPINIRole 0.5 mg oral tablet 1 tablet, By Mouth, 4 times a day, # 360 tablet, 1 Refills, Maintenance, 07/25/22 9:33:00 EST, [facility], 157, cm, 07/10/22 15:50:00 EST, Height, 94.3, [...] 16:10:00 EDT, Route to Pharmacy Electronically, [facility]/pharmacy #[id number], Partial fill uponpatient request if [...] Team Personnel Name: Mojgan Lopez RN Position: [facility] RN Member Role: Primary Care Nurse Name: Lisa Carlson RN Position: [facility] RN Member Role: Primary Care Nurse Name: Estrellita Putnam RN Position: [facility] RN Member Role: Primary Care Nurse Name: Marlen Kenny RN Position: [facility] RN Member Role: Primary Care Nurse Name: Toshia Muhammad RN Position: [facility] RN Martha Member Role: Primary Care Nurse Name: Suleman Jones RN Position: [facility] RN Member Role: Primary Care Nurse Name: Kathy Medina RN Position: [facility] RN Member Role: Primary Care Nurse Name: Marguerite Wang RN Position: [facility] RN Member Role: Primary Care Nurse Name: Mick Tatum MD Position: [facility] Primary Care Physician Member Role: PCP Address: Address: [address] [place] [id number] Name: Svitlana Clark RN Position: [facility] RN Member Role: Primary Care Nurse Name: Yoana Guevara RN Position: [facility] RN Member Role: Primary Care Nurse Name: Pierre Groves RN Position: [facility] RN Member Role: Primary Care Nurse Name: Carmen Murphy RN Position: [facility] RN Member Role: Primary Care Nurse Name: Rylie Ordonez RN Position: [facility] PCO RN Member Role: Primary Care Nurse Name: Aditi Brown RN Position: [facility] RN Member Role: Primary Care Nurse Name: Chana Cazares RN Position: [facility] RN Member Role: Primary Care Nurse Name: Toshia Urbina RN Position: [facility] RN Member Role: Primary Care Nurse Name: Aniyah Sloan RN Position: [facility] SN RN Member Role: Primary Care Nurse Name: Rosemary Ramon RN Position: [facility] OB RN Member Role: Primary Care Nurse Name: Sneha Newton RN Position: [facility] Attendant Member Role: Primary Care Nurse Care Team Related Persons Name: CLAUDIA URBINA Address: [address] [place] [address] Name: RALPH SÁNCHEZ Address: [address] [place] [address] Name: DONY CARCAMO Address: [address] [place] [address]
--- OUTSIDE RECORDS SUMMARY | 2024-02-08 01:11 | XMS_ITS | Continuity of Care Document ---
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 Start Date: 04/27/21 Stop Date: 10/24/21 Status: Ordered aspirin 81 mg oral delayed release tablet 81 mg, 1, tablet, By Mouth, Daily, # 30 tablet, Refills 5, Tot. Refills 5, Maintenance, 10/24/21 13:28:00 EDT, Route to Pharmacy Electronically, [facility]/pharmacy #[id number], Partial fill upon patient request if the prescription is for a schedule II opioid drug... Start Date: 10/24/21 Stop Date: 04/22/22 Status: Ordered atorvastatin 40 mg oral tablet 1 tablet, By Mouth, Daily at bedtime, for 90 days, # 90 tablet, 3 Refills, Physician Stop 04/20/22 16:32:00 EDT, 04/25/21 16:32:00 EDT, [facility]/pharmacy #[id number], 158, cm, 04/25/21 14:49:00 [...] 0 Refills, Maintenance, 03/23/21 9:41:00 EDT, Solution, [facility]/pharmacy #[id number], Partial fill upon patient request if the prescription is for a schedule II opioid drug., 1 drops Eyes, Both 2 times a day, 159, cm... Start Date: 03/23/21 Status: Ordered [facility] ASPIRIN EC 81 MG TABLET [facility] ASPIRIN EC 81 MG TABLET, 1, tablet, By Mouth, Daily, # 30 tablet, 0 Refills, 158, cm, 04/14/21 11:28:00 EDT, Height, 98.6, kg, 04/11/21 15:59:00 EDT, Dry Weight Start Date: 04/22/21 Status: Ordered diclofenac 1% topical gel 1 application, Topically, 4 times a day, # 100 Gm, 5 Refills, Maintenance, 10/07/19 10:56:00 EDT, Gel, [facility]/pharmacy #[id number], 160, cm, 08/19/19 8:02:00 EST, Height Start Date: 10/07/19 Status: Ordered Eliquis 5 mg oral tablet 1 tablet, By Mouth, 2 times a day, # 180 tablet, 3 Refills, Maintenance, 07/12/20 14:12:00 EST, [facility], 157, cm, 05/07/20 11:34:00 EDT, Height, 91, kg, 02/28/20 22:14:00 EDT, Dry Weight Start Date: 07/12/20 Status: Ordered furosemide 20 mg oral tablet 1, tablet, By Mouth, Daily, # 30 tablet, Refills 0, Route to Pharmacy Electronically, [facility], 158, cm, 04/22/21 14:39:00 EDT, Height, 98.6, kg, 04/11/21 15:59:00 EDT, Dry Weight Start Date: 04/25/21 Status: Ordered gabapentin 400 mg oral capsule See Instructions, 2 capsule By Mouth 3 times a day, # 180 capsule, Refills 0, Tot. Refills 0, Maintenance, 03/16/21 10:36:00 EDT, Instructions Replace Required Details, [id number] Partial fill upon patient re... Start Date: 03/16/21 Status: Ordered isosorbide mononitrate 30 mg oral tablet, extended release 1 tablet, By Mouth, Daily, for 90 days, # 90 tablet, 3 Refills, Physician Stop 04/20/22 16:32:00 EDT, 04/25/21 16:32:00 EDT, [facility]/pharmacy #[id number], 158, cm, 04/25/21 14:49:00 EDT, Height, 98.6, kg, 04/11/21 15:59:00 EDT, Dry Weight Start Date: 04/25/21 Stop Date: 04/20/22 Status: Ordered latanoprost 0.005% ophthalmic solution See Instructions, INSTILL 1 DROP IN BOTH EYES DAILY BEFORE DINNER, # 2.5 mL, 0 Refills, [facility], 18, INSTILL 1 DROP IN BOTH EYES DAILY BEFORE DINNER, 158, cm, 04/14/21 11:28:00 EDT, Height, 98.6, kg, 04/11/21 15:59:00 EDT, Dry Weight Start Date: 04/14/21 Status: Ordered Lipitor 40 mg oral tablet 1 tablet = 40 mg, By Mouth, Daily, # 30 tablet, 5 Refills, Maintenance, 04/28/21 6:50:00 EDT, Tablet, [facility]/pharmacy #[id number], Partial fill upon patient [...] 12/06/20 13:03:00 EDT, Route to Pharmacy Electronically, [facility]/pharmacy #[id number], Partial fill upon patient [...] Refills, Maintenance, 03/15/21 12:38:00 EDT, Tablet, [facility]/pharmacy #[id number], Partial fill... Start Date: [...] 05/14/21 12:51:00 EDT, Route to Pharmacy Electronically, [facility]/pharmacy #[id number], Partial fill upon patient request if the prescription is... Start Date: 05/14/21 Stop Date: 11/10/21 Status: Ordered thiamine 100 mg oral tablet 100 mg, 1, tablet, By Mouth, Daily, for 30 days, # 30 tablet, Refills 0, Tot. Refills 0, Acute 05/14/21 12:51:00 EDT, 04/14/21 12:51:00 EDT, Route to Pharmacy Electronically, [facility]/pharmacy #[id number], Partial fill upon patient request if the prescription is... Start Date: 04/14/21 Stop Date: 05/14/21 Status: Ordered torsemide 20 mg oral tablet 1 tablet = 20 mg, By Mouth, Daily, # 30 tablet, 5 Refills, Maintenance, 05/10/21 4:19:00 EDT, Tablet, [facility]/pharmacy #[id number], Partial fill upon patient request if the prescription is for a schedule II opioid drug., 158, cm, 04/25/21 14:49:00 EDT, Height,... Start Date: 05/10/21 Status: Ordered Vitamin D2 50,000 intl units (1.25 mg) oral capsule 1 capsule = 50,000 International_Units, By Mouth, Every , # 8 capsule, 0 Refills, Maintenance, 04/14/21 12:50:00 EDT, [facility]/pharmacy #[id number], Partial fill upon patient [...]
--- OUTSIDE RECORDS SUMMARY | 2024-02-08 01:11 | XMS_ITS | Continuity of Care Document ---
Author Organization [facility] Address [address] [place] [address]- Care Team Providers Care Electronic Prepress System Operator Name Role Phone Rc CORDERO, Mick Clay Primary Care Physician [phone] [place] [facility] [place] 06/02/20 - 07/02/20 [facility] [address] [place] [address]- Allergies, Adverse Reactions, Alerts Substance Reaction Severity [...] [id number], cm, 03/11/20 12:49:00 EDT, Height, 91, kg, 02/28/20 22:14:00 EDT, Dry Weight Start Date: 03/30/20 Stop Date: 03/25/21 Status: Ordered cephalexin monohydrate 500 mg oral capsule 1 capsule = 500 mg, By Mouth, 4 times a day, for 14 days, # 56 capsule, 0 Refills, Acute 07/06/20 9:49:00 EST, 06/22/20 9:49:00 EST, Capsule, [facility]/pharmacy #[id number], Partial fill upon patient request if the prescription is for a schedule II opioid drug.,... Start Date: 06/22/20 Stop Date: 07/06/20 Status: Ordered Cosopt ophthalmic solution 1 drops, Eyes, Both, 2 times a day, 0 Refills Start Date: 02/09/09 Status: Ordered diclofenac 1% topical gel 1 application, Topically, 4 times a day, # 100 Gm, 5 Refills, Maintenance, 10/07/19 10:56:00 EDT, Gel, [facility]/pharmacy #[id number], 160, cm, 08/19/19 8:02:00 EST, Height Start Date: 10/07/19 Status: Ordered Eliquis 5 mg oral tablet 1 tablet, By Mouth, 2 times a day, # 180 tablet, Refills 3 Tot. Refills 3, [facility]/pharmacy #[id number] Start Date: 06/17/19 Status: Ordered gabapentin 400 mg oral capsule 400 mg, 1, capsule, By Mouth, 3 times a day, # 270 capsule, Refills 2, Tot. Refills 2, Maintenance,03/30/20 8:48:00 EDT, Route to Pharmacy Electronically, [facility]/pharmacy #[id number], 157, cm, 03/11/20 12:49:00 EDT, Height, 91, kg, 02/28/20 22:14:00 EDT, Dry... Start Date: 03/30/20 Stop Date: 12/25/20 Status: Ordered HYDROmorphone 2 mg oral tablet 1 tablet = 2 mg, By Mouth, Every 8 hours, PRN as needed for pain, # 20 tablet, 0 Refills, Maintenance, 05/07/20 13:21:00 EDT, Tablet, [facility]/pharmacy #3711, Partial fill upon patient request, 157, cm, [...]
--- OUTSIDE RECORDS SUMMARY | 2024-02-08 01:11 | XMS_ITS | Continuity of Care Document ---
Author Organization [facility] Jose lt Address [address] [place] [address]- Care Team Providers Care Dark Room Attendant Name Role Phone Марина CORDERO, Ignacio New Primary Care Physician Encounter [facility] Date(s): 07/01/19 - 07/11/19 [facility] [address] [place] [address]- [facility] Attending Physician: Julia Haile Admitting Physician: [...] tablet, Refills 3 Tot. Refills 3, [facility]/pharmacy #[id number] Start Date: 06/17/19 Status: Ordered ferrous [...] 03/20/19 12:07:35 EDT, Route to Pharmacy Electronically, [id number], [facility]/pharmacy #[id number] Start Date: 03/20/19 Status: Ordered Lialda [...]
--- OUTSIDE RECORDS SUMMARY | 2024-02-08 01:11 | XMS_ITS | Continuity of Care Document ---
Author Organization [facility] Jose [facility] Address [address] [place] [address]- Care Team Providers Care Wire Rope Sales Representative Name Role Phone Rc CORDERO, Mick Clay Primary Care Physician Encounter [facility] [place] Date(s): 03/10/21 - 04/09/21 [facility] Adult [address] [place] [address]- Allergies, Adverse Reactions, Alerts Substance Reaction Severity [...] # 90 tablet, 1 Refills, [facility], 159, cm, 03/23/21 9:06:00 EDT, Height, 100.2, kg, 03/15/21 4:17:00 EDT, Dry Weight Start Date: 03/25/21 Status: Ordered aspirin 81 mg oral delayed release tablet 81 mg, 1, tablet, By Mouth, Daily, # 30 tablet, Refills 0, Tot. Refills 0, Maintenance, 03/15/21 12:35:00 EDT, Route to Pharmacy Electronically, [facility]/pharmacy #[id number], Partial fill upon [...] 0 Refills, Maintenance, 03/23/21 9:41:00 EDT, Solution, [facility]/pharmacy #[id number], Partial fill upon patient request if the prescription is for a schedule II opioid drug., 1 drops Eyes, Both 2 times a day, 159, cm... Start Date: 03/23/21 Status: Ordered diclofenac 1% topical gel 1 application, Topically, 4 times a day, # 100 Gm, 5 Refills, Maintenance, 10/07/19 10:56:00 EDT, Gel, [facility]/pharmacy #[id number], 160, cm, 08/19/19 8:02:00 EST, Height Start Date: 10/07/19 Status: Ordered Eliquis 5 mg oral tablet 1 tablet, By Mouth, 2 times a day, # 180 tablet, 3 Refills, Maintenance, 07/12/20 14:12:00 EST, [facility], 157, cm, 05/07/20 11:34:00 EDT, Height, 91, kg, 02/28/20 22:14:00 EDT, Dry Weight Start Date: 07/12/20 Status: Ordered furosemide 20 mg oral tablet 1, tablet, By Mouth, Daily, # 30 tablet, Refills 0, Route to Pharmacy Electronically, [facility], 159, cm, 03/15/21 14:39:00 EDT, Height, 100.2, kg, 03/15/21 4:17:00 EDT, Dry Weight Start Date: 03/21/21 Status: Ordered gabapentin 400 mg oral capsule See Instructions, 2 capsule By Mouth 3 times a day, # 180 capsule, Refills 0, Tot. Refills 0, Maintenance, 03/16/21 10:36:00 EDT, Instructions Replace Required Details, Route to Pharmacy Electronically, [facility]/pharmacy #[id number], Partial fill upon patient re... Start Date: 03/16/21 Status: Ordered isosorbide mononitrate 30 mg oral tablet, extended release 1 tablet = 30 mg, By Mouth, Daily, # 30 tablet, 0 Refills, Maintenance, 03/15/21 12:37:00 EDT, ER Tablet, [facility]/pharmacy #[id number], Partial fill upon patient request if the prescription is for a schedule II opioid drug., 159, cm, 03/15/21 8:14:00 EDT, Heigh... Start Date: 03/15/21 Status: Ordered Lipitor 40 mg oral tablet 1 tablet = 40 mg, By Mouth, Daily at bedtime, # 30 tablet, 0 Refills, Maintenance, 03/15/21 12:37:00 EDT, Tablet, [facility]/pharmacy #[id number], Partial fill upon patient request if the prescription is for a schedule II opioid drug., 159, cm, 03/15/21 8:14:00 ED... Start Date: 03/15/21 Status: Ordered metoprolol 25 mg oral tablet, extended release 25 mg, 1, tablet, By Mouth, Daily, # 30 tablet, Refills 5, Tot. Refills 5, Maintenance, 12/06/20 13:03:00 EDT, Route to Pharmacy Electronically, [facility]/pharmacy #[id number], Partial fill upon [...] 0 Refills, Maintenance, 03/15/21 12:38:00 EDT, Tablet, [facility]/pharmacy #[id number], Partial fill... Start [...] Refills, Maintenance, 03/23/21 9:41:00 EDT, Ophth Solution, [facility]/pharmacy #[id number], Partial fill upon [...]
--- OUTSIDE RECORDS SUMMARY | 2024-02-08 01:11 | XMS_ITS | Continuity of Care Document ---
Author Organization [facility] Gopi Jose lt Address [address] [place] [address]- Care Team Providers Care Medical Consultant Name Role Phone Mick Tatum MD Primary Care Physician [place] [facility] [place] 05/18/21 [facility] [place] Adult [address] [place] [address]- Attending Physician: Mick Tatum MD Allergies, Adverse [...] 04/27/21 13:28:00 EDT, Route to Pharmacy Electronically, [facility]/pharmacy #[id number], Partial fill upon patient request if the prescription... Start Date: 04/27/21 Stop Date: 10/24/21 Status: Ordered aspirin 81 mg oral delayed release tablet 81 mg, 1, tablet, By Mouth, Daily, # 30 tablet, Refills 5, Tot. Refills 5, Maintenance, 10/24/21 13:28:00 EDT, Route to Pharmacy Electronically, [facility]/pharmacy #[id number], Partial fill upon patient request if the prescription is for a schedule II opioid drug... Start Date: 10/24/21 Stop Date: 04/22/22 Status: Ordered atorvastatin 40 mg oral tablet 1 tablet, By Mouth, Daily at bedtime, for 90 days, # 90 tablet, 3 Refills, Physician Stop 04/20/22 16:32:00 EDT, 04/25/21 16:32:00 EDT, [facility]/pharmacy #[id number], 158, cm, 04/25/21 14:49:00 EDT, [...] Maintenance, 03/23/21 9:41:00 EDT, Solution, [facility]/pharmacy #[id number], Partial fill upon patient request if the prescription is for a schedule II opioid drug., 1 drops Eyes, Both 2 times a day, 159, cm... Start Date: 03/23/21 Status: Ordered [facility] ASPIRIN EC 81 MG TABLET [facility] ASPIRIN EC 81 MG TABLET, 1, tablet, By Mouth, Daily, # 30 tablet, 0 Refills, 158, cm, 04/14/21 11:28:00 EDT, Height, 98.6, kg, 04/11/21 15:59:00 EDT, Dry Weight Start Date: 04/22/21 Status: Ordered diclofenac 1% topical gel 1 application, Topically, 4 times a day, # 100 Gm, 5 Refills, Maintenance, 10/07/19 10:56:00 EDT, Gel, [facility]/pharmacy #[id number], 160, cm, 08/19/19 8:02:00 EST, Height Start Date: 10/07/19 Status: Ordered Eliquis 5 mg oral tablet 1 tablet, By Mouth, 2 times a day, # 180 tablet, 3 Refills, Maintenance, 07/12/20 14:12:00 EST[id number], cm, 05/07/20 11:34:00 EDT, Height, 91, kg, 02/28/20 22:14:00 EDT, Dry Weight Start Date: 07/12/20 Status: Ordered furosemide 20 mg oral tablet 1, tablet, By Mouth, Daily, # 90 tablet, Refills 3, Tot. Refills 3, 05/17/21 9:14:00 EDT, Route to Pharmacy Electronically, [facility]/pharmacy #[id number], 158, cm, 04/25/21 14:49:00 EDT, Height, 98.6, kg, 04/11/21 15:59:00 EDT, Dry Weight Start Date: 05/17/21 Status: Ordered gabapentin 400 mg oral capsule See Instructions, 2 capsule By Mouth 3 times a day, # 180 capsule, Refills 0, Tot. Refills 0, Maintenance, 03/16/21 10:36:00 EDT, Instructions Replace Required Details, Route to Pharmacy Electronically, [facility]/pharmacy #[id number], Partial fill upon patient re... Start Date: 03/16/21 Status: Ordered isosorbide mononitrate 30 mg oral tablet, extended release 1 tablet, By Mouth, Daily, for 90 days, # 90 tablet, 3 Refills, Physician Stop 04/20/22 16:32:00 EDT, 04/25/21 16:32:00 EDT, [facility]/pharmacy #[id number], 158, cm, 04/25/21 14:49:00 EDT, Height, 98.6, kg, 04/11/21 15:59:00 EDT, Dry Weight Start Date: 04/25/21 Stop Date: 04/20/22 Status: Ordered latanoprost 0.005% ophthalmic solution See Instructions, INSTILL 1 DROP IN BOTH EYES DAILY BEFORE DINNER, # 2.5 mL, 0 Refills, [id number], 18, INSTILL 1 DROP IN BOTH EYES DAILY BEFORE DINNER, 158, cm, 04/14/21 11:28:00 EDT, Height, 98.6, kg, 04/11/21 15:59:00 EDT, Dry Weight Start Date: 04/14/21 Status: Ordered Lipitor 40 mg oral tablet 1 tablet = 40 mg, By Mouth, Daily, # 30 tablet, 5 Refills, Maintenance, 04/28/21 6:50:00 EDT, Tablet, [facility]/pharmacy #[id number], Partial fill upon patient request [...] EDT, Route to Pharmacy Electronically, [facility]/pharmacy #[id number], Partial fill upon patient request [...] Maintenance, 03/15/21 12:38:00 EDT, Tablet, [facility]/pharmacy #[id number], Partial fill... Start Date: 03/15/21 [...] 05/14/21 12:51:00 EDT, Route to Pharmacy Electronically, [facility]/pharmacy #[id number], Partial fill upon patient request if the prescription is... Start Date: 05/14/21 Stop Date: 11/10/21 Status: Ordered torsemide 20 mg oral tablet 1 tablet = 20 mg, By Mouth, Daily, # 30 tablet, 5 Refills, Maintenance, 05/10/21 4:19:00 EDT, Tablet, [facility]/pharmacy #[id number], Partial fill upon patient request if the prescription is for a schedule II opioid drug., 158, cm, 04/25/21 14:49:00 EDT, Height,... Start Date: 05/10/21 Status: Ordered Vitamin D2 50,000 intl units (1.25 mg) oral capsule 1 capsule = 50,000 International_Units, By Mouth, Every , # 8 capsule, 0 Refills, Maintenance, 04/14/21 12:50:00 EDT, [facility]/pharmacy #[id number], Partial fill upon patient request if the [...]
--- OUTSIDE RECORDS SUMMARY | 2024-02-08 01:11 | XMS_ITS | Continuity of Care Document ---
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 Jewelry Drill Operator Name Role Phone Mick Tatum MD Primary Care Physician [place] [facility] [place]s): 11/29/22 - 12/29/22 [facility] [place] Adult [address] [place] [address]- Allergies, Adverse Reactions, Alerts Substance Reaction Severity [...] Given Parent Or Guardian Refuses 1Result Comment: [id number] 2Location History: DR LOAIZA 3Location History: DR LOAIZA 4Location History: DR LOAIZA 5Location History: DR LOAIZA Medications atorvastatin 40 mg oral tablet 1 tablet, By Mouth, Daily at bedtime, # 90 tablet, 3 Refills, Maintenance, 05/13/22 7:24:00 EDT, [id number], 157, cm, 05/12/22 13:47:00 EDT, Height, 94.3, kg, 01/19/22 4:25:00 EDT, Dry Weight Start Date: 05/13/22 Status: Ordered budesonide 3 mg oral delayed release capsule 1 capsule = 3 mg, By Mouth, Daily in AM, # 90 capsule, 2 Refills, Acute 01/18/23 6:58:00 EDT, 01/18/22 6:58:00 EDT, CR Capsule, [facility]/pharmacy #[id number], Partial fill upon patient request if the prescription is for a schedule II opioid drug., 159, cm, 12/21... Start Date: 01/18/22 Stop Date: 01/18/23 Status: Ordered Eliquis 5 mg oral tablet 1 tablet, By Mouth, 2 times a day, # 180 tablet, 3 Refills, Maintenance, 05/27/22 16:57:00 EDT, [id number], [facility], cm, 05/12/22 13:47:00 EDT, Height, 94.3, kg, 01/19/22 4:25:00 EDT, Dry Weight Start Date: 05/27/22 Status: Ordered isosorbide mononitrate 60 mg oral tablet, extended release 60 mg, 1, tablet, By Mouth, 2 times a day, # 180 tablet, Refills 3, Tot. Refills 3, Maintenance, 07/10/22 16:07:00 EST, Route to Pharmacy Electronically, [facility]/pharmacy #[id number], Partial fill upon patientrequest if the prescription is for a schedule II op... Start Date: 07/10/22 Status: Ordered Metoprolol Succinate ER 25 mg oral tablet, extended release 1 tablet, By Mouth, Daily, # 90 tablet, 3 Refills, 09/30/22 20:06:00 EST, [facility]/pharmacy #[id number], 157, cm, 09/15/22 11:19:00 EST, Height, 94.3, kg, 01/19/22 4:25:00 EDT, Dry Weight Start Date: 09/30/22 Status: Ordered mirtazapine 7.5 mg oral tablet 1 tablet = 7.5 mg, By Mouth, Daily at bedtime, # 30 tablet, 2 Refills, Maintenance, 12/28/22 14:48:00 EDT, [facility]/pharmacy #[id number], Partial fill [...] 0 Refills, Maintenance, 12/19/22 9:51:00 EDT, Tablet, [facility]/pharmacy #[id number], Partial fill... Start Date: 12/19/22 Status: Ordered rOPINIRole 0.5 mg oral tablet 1 tablet, By Mouth, 4 times a day, # 360 tablet, 1 Refills, Maintenance, 07/25/22 9:33:00 EST, [id number], 157, cm, 07/10/22 15:50:00 EST, Height, 94.3, [...] Primary Care Nurse Name: Jersey VERNONEstrellita Position: [facility] RN Member Role: Primary Care Nurse Name: Marlen Kenny RN Position: [facility] RN Member Role: Primary Care Nurse Name: Toshia Muhammad RN Position: [facility] RN Martha Member Role: Primary Care Nurse Name: Suleman Jones RN Position: [facility] RN Member Role: Primary Care Nurse Name: Kathy Medina RN Position: [facility] RN Member Role: Primary Care Nurse Name: Mick Tatum MD Position: [facility] Physician - Primary Care Member Role: PCP Address: Address: [address] [place] [id number] Name: Svitlana Clark RN Position: [facility] RN Member Role: Primary Care Nurse Name: Yoana Guevara RN Position: [facility] RN Member Role: Primary Care Nurse Name: Pierre Groves RN Position: [facility] RN Member Role: Primary Care Nurse Name: Carmen Murphy RN Position: [facility] RN Member Role: Primary Care Nurse Name: yRlie Ordonez RN Position: [facility] AMB Nurse Member Role: Primary Care Nurse Name: Aditi Brown RN Position: [facility] RN Member Role: Primary Care Nurse Name: Chana Cazares RN Position: [facility] RN Member Role: Primary Care Nurse Name: Toshia Urbina RN Position: [facility] RN Member Role: Primary Care Nurse Name: Aniyah Sloan RN Position: [facility] SN RN Member Role: Primary Care Nurse Name: Rosemary Ramon RN Position: [facility] OB RN Member Role: Primary Care Nurse Name: Sneha Newton RN Position: [facility] [employer] Servicer Member Role: Primary Care Nurse Care Team Related Persons Name: CLAUDIA URBINA Address: home [address], [place] Name: RALPH SÁNCHEZ Address: home [address], [place] Name: DONY CARCAMO Address: home [address], [place]
--- OUTSIDE RECORDS SUMMARY | 2024-02-08 01:11 | XMS_ITS | Continuity of Care Document ---
Author Organization [facility] Jose lt Address [address] [place] [address]- Care Team Providers Care Theology Professor Name Role Phone Ignacio Parish MD Primary Care Physician Encounter [facility] [place] Date(s): 03/11/20 - 04/10/20 [facility] Adult [address] [place] [address]- [facility] Attending Physician: Admtr, Ar8 Admitting Physician: Admtr, Ar8 Referring Physician: Admtr, Ar8 Allergies, Adverse Reactions, [...] EDT, [id number], cm, 03/11/20 12:49:00 EDT, Height, 91, kg, 02/28/20 22:14:00 EDT, Dry Weight Start Date: 03/30/20 Stop Date: 03/25/21 Status: Ordered Cosopt ophthalmic solution 1 drops, Eyes, Both, 2 times a day, 0 Refills Start Date: 02/09/09 Status: Ordered diclofenac 1% topical gel 1 application, Topically, 4 times a day, # 100 Gm, 5 Refills, Maintenance, 10/07/19 10:56:00 EDT, Gel, [facility]/pharmacy #[id number], 160, cm, 08/19/19 8:02:00 EST, Height [...] 03/10/20 10:49:00 EDT, [id number], cm, 03/10/20 8:47:00 EDT, Height, 91, kg, 02/28/20 22:14:00 EDT, Dry W... Start Date: 03/10/20 Status: Ordered Eliquis 5 mg oral tablet 1 tablet, By Mouth, 2 times a day, # 180 tablet, Refills 3 Tot. Refills 3, [facility]/pharmacy #[id number] Start Date: 06/17/19 Status: Ordered gabapentin 400 mg oral capsule 400 mg, 1, capsule, By Mouth, 3 times a day, # 21 capsule, Refills 0, Tot. Refills 0, Maintenance, 03/10/20 10:48:00 EDT, [id number] 157, cm, 03/10/20 8:47:00 EDT, Height, 91, kg, 02/28/20 22:14:00 EDT, Dry W... Start Date: 03/10/20 Stop Date: 03/17/20 Status: Ordered gabapentin 400 mg oral capsule 400 mg, 1, capsule, By Mouth, 3 times a day, # 270 capsule, Refills 2, Tot. Refills 2, Maintenance,03/30/20 8:48:00 EDT, [id number] 157, cm, 03/11/20 12:49:00 EDT, Height, 91, kg, 02/28/20 22:14:00 EDT, Dry... Start Date: 03/30/20 Stop Date: 12/25/20 Status: Ordered HYDROmorphone 2 mg oral tablet 1 tablet = 2 mg, By Mouth, Every 6 hours, PRN as needed for pain, # 28 tablet, 0 Refills, Maintenance, 03/11/20 15:06:00 EDT, Tablet, [id number] fill upon patient request, [...] EDT, [id number], cm, 03/10/20 8:47:00 EDT, [...]
--- OUTSIDE RECORDS SUMMARY | 2024-02-08 01:11 | XMS_ITS | Continuity of Care Document ---
Author Organization [facility] Gopi Jose lt Address [address] [place] [address]- Care Team Providers Care Pick Up Name Role Phone Rc CORDERO, Mick Clay Primary Care Physician [place] [facility] [place] 07/11/21 - 08/10/21 [facility] [place] Adult [address] [place] [address]- Allergies, Adverse Reactions, Alerts Substance Reaction Severity [...] 07/09/21 10:04:00 EST, Route to Pharmacy Electronically, [facility]/pharmacy #[id number], Partial fill upon patient request if the prescription is for a schedule II opioid .. Start Date: 07/09/21 Stop Date: 07/04/22 Status: Ordered Cosopt 2.23%-0.68% ophthalmic solution 1 drops, Eyes, Both, 2 times a day, # 10 mL, 0 Refills, Maintenance, 03/23/21 9:41:00 EDT, Solution, [facility]/pharmacy #[id number], Partial fill upon patient request if the prescription is for a schedule II opioid drug., 1 drops Eyes, Both 2 times a day, 159, cm... Start Date: 03/23/21 Status: Ordered [facility] ASPIRIN EC 81 MG TABLET [facility] ASPIRIN EC 81 MG TABLET, 1, tablet, By Mouth, Daily, # 30 tablet, 0 Refills, 158, cm, 04/14/21 11:28:00 EDT, Height, 98.6, kg, 04/11/21 15:59:00 EDT, Dry Weight Start Date: 04/22/21 Status: Ordered diclofenac 1% topical gel 1 application, Topically, 4 times a day, # 100 Gm, 5 Refills, Maintenance, 10/07/19 10:56:00 EDT, Gel, [facility]/pharmacy #[id number], 160, cm, 08/19/19 8:02:00 EST, Height Start Date: 10/07/19 Status: Ordered Eliquis 5 mg oral tablet 1 tablet, By Mouth, 2 times a day, # 180 tablet, 3 Refills, [id number], 158, cm, 06/09/21 10:14:00 EST, Height, 98.6, kg, 04/11/21 15:59:00 EDT, Dry Weight Start Date: 06/17/21 Status: Ordered empagliflozin 10 mg oral tablet 1 tablet = 10 mg, By Mouth, Daily in AM, # 90 tablet, 3 Refills, Maintenance, 06/09/21 12:06:00 EST, Tablet, [facility]/pharmacy #[id number], Partial fill upon patient request [...] 07/31/21 10:21:00 EST, Route to Pharmacy Electronically, [facility]/pharmacy #[id number], 159, cm, 07/25/21 11:20:00 EST, Height, 98, kg, 07/06/21 19:57:00 EST, Dry Weight Start Date: 07/31/21 Status: Ordered isosorbide mononitrate 30 mg oral tablet, extended release 1 tablet, By Mouth, Daily, for 90 days, # 90 tablet, 3 Refills, Physician Stop 04/20/22 16:32:00 EDT, 04/25/21 16:32:00 EDT, [facility]/pharmacy #[id number], 158, cm, 04/25/21 14:49:00 EDT, Height, 98.6, kg, 04/11/21 15:59:00 EDT, Dry Weight Start Date: 04/25/21 Stop Date: 04/20/22 Status: Ordered latanoprost 0.005% ophthalmic solution See Instructions, INSTILL 1 DROP IN BOTH EYES DAILY BEFORE DINNER, # 2.5 mL, 0 Refills, [facility], 18, INSTILL 1 DROP IN BOTH EYES DAILY BEFORE DINNER, 158, cm, 04/14/21 11:28:00 EDT, Height, 98.6, kg, 04/11/21 15:59:00 EDT, Dry Weight Start Date: 04/14/21 Status: Ordered Lipitor 40 mg oral tablet 1 tablet = 40 mg, By Mouth, Daily, # 30 tablet, 5 Refills, Maintenance, 04/28/21 6:50:00 EDT, Tablet, [facility]/pharmacy #[id number], Partial fill upon patient request [...] 12/06/20 13:03:00 EDT, Route to Pharmacy Electronically, [facility]/pharmacy #[id number], Partial fill upon patient request [...] 0 Refills, Maintenance, 03/15/21 12:38:00 EDT, Tablet, [facility]/pharmacy #[id number], Partial fill... Start Date: 03/15/21 [...] EDT, Route to Pharmacy Electronically, [facility]/pharmacy #[id number], Partial fill upon patient request [...]
--- OUTSIDE RECORDS SUMMARY | 2024-02-08 01:11 | XMS_ITS | Continuity of Care Document ---
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/pharmacy #[id number], 157, cm, 04/23/20 11:28:00 EDT, [...] 180 tablet, Refills 3 Tot. Refills 3, [facility]/pharmacy #[id number] Start Date: 06/17/19 Status: Ordered [...] Refills, Maintenance, 05/07/20 13:21:00 EDT, Tablet, [facility]/pharmacy #[id number], Partial fill upon patient request, 157, cm, [...]
--- OUTSIDE RECORDS SUMMARY | 2024-02-08 01:11 | XMS_ITS | Continuity of Care Document ---
Author Organization [facility] Gopi Jose lt Address [address] [place] [address]- Care Team Providers Care Cargo And Ramp Services Manager Name Role Phone Mick Tatum MD Primary Care Physician Encounter [facility] [place] Date(s): 10/26/23 - 11/02/23 [facility] Adult [address] [place] [address]- Encounter Diagnosis Wound of right leg(Discharge Diagnosis) - 10/26/23 HFrEF (heart failure with reduced ejection fraction)(Discharge Diagnosis) - 10/26/23 DVT (deep venous thrombosis)(Discharge Diagnosis) - 10/26/23 Hypertension(Discharge Diagnosis) - 10/26/23 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/pharmacy #[id number], Partial safia... Start Date: 06/29/23 Status: Ordered duloxetine 20 mg oral enteric coated capsule 1 capsule, By Mouth, Daily at bedtime, # 90 capsule, 3 Refills, Maintenance, 09/26/23 5:28:00 EST, [facility], 157, cm, 09/18/23 11:23:00 EST, Height, 94.3, kg, 01/19/22 4:25:00 EDT, Dry Weight Start Date: 09/26/23 Status: Ordered Eliquis 5 mg oral tablet 1 tablet, By Mouth, 2 times a day, # 180 tablet, 3 Refills, Maintenance, 06/15/23 1:44:00 EST, [facility], 157, cm, 05/31/23 6:38:00 EST, Height, 94.3, kg, 01/19/22 4:25:00 EDT, Dry Weight Start Date: 06/15/23 Status: Ordered isosorbide mononitrate 60 mg oral tablet, extended release 1 tablet, By Mouth, 2 times a day, # 180 tablet, 3 Refills, Maintenance, 06/13/23 8:27:00 EST, [facility], 157, cm, 05/31/23 6:38:00 EST, Height, 94.3, kg, 01/19/22 4:25:00 EDT, Dry Weight Start Date: 06/13/23 Status: Ordered Jardiance 10 mg oral tablet 1 tablet, By Mouth, Daily in AM, # 90 tablet, 3 Refills, Maintenance, 06/04/23 8:09:00 EST, [facility], 157, cm, 05/31/23 6:38:00 EST, Height, 94.3, kg, 01/19/22 4:25:00 EDT, Dry Weight Start Date: 06/04/23 Stop Date: 09/02/23 Status: Ordered Metoprolol Succinate ER 25 mg oral tablet, extended release 1 tablet, By Mouth, Daily, # 30 tablet, 0 Refills, Maintenance, 10/15/23 7:41:00 EDT, [facility], 157, cm, 09/18/23 11:23:00 EST, Height, 94.3, [...] 06/28/23 12:35:00 EST, Route to Pharmacy Electronically, [facility] [...] 10/26/23 14:24:00 EDT, Route to Pharmacy Electronically, [facility] [...] tablet, 1 Refills, Maintenance, 09/17/23 7:52:00 EST, [facility], 157, cm, 08/14/23 10:05:00 EST, Height, 94.3, kg, 01/19/22 4:25:00 EDT, Dry Weight Start Date: 09/17/23 Status: Ordered spironolactone 25 mg oral tablet 25 mg, 1, tablet, By Mouth, 2 times a day, # 180 tablet, Refills 3, Tot. Refills 3, Maintenance, 08/27/23 12:45:00 EST, Route to Pharmacy Electronically, [facility]/pharmacy #[id number], Partial fill upon patientrequest if the prescription is for a schedule II op... Start Date: 08/27/23 Stop Date: 08/21/24 Status: Ordered torsemide 20 mg oral tablet 2 tablet, By Mouth, Daily, # 180 tablet, 3 Refills, Maintenance, 08/13/23 9:50:00 EST, [facility], 157, cm, 06/27/23 16:10:00 EST, Height, 94.3, [...] Diagnosis Diagnosis Type Effective Dates Health Status Clinical Service Informant Wound of right leg Discharge Diagnosis 10/26/23 HFrEF (heart failure with reduced ejection fraction) Discharge Diagnosis 10/26/23 DVT (deep venous thrombosis) Discharge Diagnosis 10/26/23 Hypertension Discharge Diagnosis 10/26/23 Type 2 DM with CKD stage 3 and hypertension Discharge Diagnosis 10/26/23 Chronic kidney disease, stage 3b Discharge Diagnosis 10/26/23 Vital Signs Most recent to oldest [Reference Range]: 1 Height 157.00 cm (10/26/23 1:58 PM) Weight 79.5 kg (10/26/23 1:58 PM) Oxygen Saturation [94-100 %] 96 % (10/26/23 1:58 PM) Pulse Rate [55-90 bpm] 65 bpm (10/26/23 1:58 PM) Body Mass Index [18.5-24.99 kg/m2] 32.25 kg/m2 *>HHI* (10/26/23 1:58 PM) Blood Pressure [90-138/55-84 mm Hg] 103/ 65mm Hg (10/26/23 1:58 PM) Mode of Delivery (Oxygen) Room air (10/26/23 1:58 PM) Blood pressure sites Arm, left (10/26/23 1:58 PM) Social History Social History Type Response Smoking Status Never (less than 100 in lifetime) entered on: 06/27/18 Sex Patient Care team information Care Team Personnel Name: Estrellita Putnam RN Position: [facility] RN Member Role: Primary Care Nurse Name: Marlen Kenny RN Position: [facility] RN Member Role: Primary Care Nurse Name: Toshia Muhammad RN Position: [facility] RN Martha Member Role: Primary Care Nurse Name: Suleman Jones RN Position: [facility] RN Member Role: Primary Care Nurse Name: Kathy Medina RN Position: [facility] RN Member Role: Primary Care Nurse Name: Marguerite Wang RN Position: [facility] RN Member Role: Primary Care Nurse Name: Mick Tatum MD Position: [facility] Physician - Primary Care Member Role: PCP Address: Address: [address] [place] [address]- [place] Name: Svitlana Clark RN Position: [facility] RN Member Role: Primary Care Nurse Name: Yoana Guevara RN Position: [facility] RN Member Role: Primary Care Nurse Name: Pierre Grvoes RN Position: [facility] RN Member Role: Primary Care Nurse Name: Carmen Murphy NP Position: [facility] PCO Associate Professional Member Role: Primary Care Nurse Address: Address: [address] [place] [address]- Name: Rylie Ordonez RN Position: [facility] RN Member Role: Primary Care Nurse Name: Marisa Negrete RN Position: [facility] SN RN Member Role: Primary Care Nurse Name: Aditi Brown RN Position: [facility] Onco RN Member Role: Primary Care Nurse Name: Chana Cazares RN Position: [facility] RN Member Role: Primary Care Nurse Name: Toshia Urbina RN Position: [facility] RN Member Role: Primary Care Nurse Name: Isabel Gray Position: [facility] [place] In Home Nanny Member Role: Windows Laptop Technician Name: Aniyah Sloan RN Position: [facility] SN RN Member Role: Primary Care Nurse Name: Rosemary Ramon RN Position: [facility] OB RN Member Role: Primary Care Nurse Name: Sneha Newton RN Position: [facility] Pattern Marker Member Role: Primary Care Nurse Care Team Related Persons Name: CLAUDIA URBINA Address: home [address] [place] [address] Name: RALPH SÁNCHEZ Address: home [address] [place] [address] Name: DONY CARCAMO Address: home [address] [place] [address]
--- OUTSIDE RECORDS SUMMARY | 2024-02-08 01:11 | XMS_ITS | Continuity of Care Document ---
Author Organization [facility] Gopi Jose lt Address [address] [place] [address]- Care Team Providers Care Slip Tender Name Role Phone Mick Tatum MD Primary Care Physician Encounter [facility] [place] Date(s): 05/17/22 - 06/16/22 [facility] Adult [address] [place] [address]- Allergies, Adverse Reactions, Alerts Substance Reaction Severity [...] Given Parent Or Guardian Refuses 1Result Comment: [id number] 2Location History: DR LOAIZA 3Location History: DR LOAIZA 4Location History: DR LOAIZA 5Location History: DR LOAIZA Medications atorvastatin 40 mg oral tablet 1 tablet, By Mouth, Daily at bedtime, # 90 tablet, 3 Refills, Maintenance, 05/13/22 7:24:00 EDT, [facility], 157, cm, 05/12/22 13:47:00 EDT, Height, 94.3, [...] 6:58:00 EDT, 01/18/22 6:58:00 EDT, CR Capsule, [facility]/pharmacy #[id number], Partial fill upon patient request if the prescription is for a schedule II opioid drug., 159, cm, 12/21... Start Date: 01/18/22 Stop Date: 01/18/23 Status: Ordered clopidogrel 75 mg oral tablet 75 mg, 1, tablet, By Mouth, Daily, # 30 tablet, Refills 11, Tot. Refills 11, Maintenance, 07/09/21 10:04:00 EST, Route to Pharmacy Electronically, [facility]/pharmacy #[id number], Partial fill upon patient request if the prescription is for a schedule II opioid drJohann. Start Date: 07/09/21 Stop Date: 07/04/22 Status: Ordered Cosopt 2.23%-0.68% ophthalmic solution 1 drops, Eyes, Both, 2 times a day, # 10 mL, 0 Refills, Maintenance, 03/23/21 9:41:00 EDT, Solution, [facility]/pharmacy #[id number], Partial fill upon patient request if the prescription is for a schedule II opioid drug., 1 drops Eyes, Both 2 times a day, 159, cm... Start Date: 03/23/21 Status: Ordered diclofenac 1% topical gel 1 application, Topically, 4 times a day, # 100 Gm, 5 Refills, Maintenance, 05/13/22 9:34:00 EDT, Gel, [facility]/pharmacy #[id number], 157, cm, 05/12/22 13:47:00 EDT, Height, 94.3, kg, 01/19/22 4:25:00 EDT, Dry Weight Start Date: 05/13/22 Status: Ordered Eliquis 5 mg oral tablet 1 tablet, By Mouth, 2 times a day, # 180 tablet, 3 Refills, Maintenance, 05/27/22 16:57:00 EDT, [facility], 157, cm, 05/12/22 13:47:00 EDT, Height, 94.3, kg, 01/19/22 4:25:00 EDT, Dry Weight Start Date: 05/27/22 Status: Ordered empagliflozin 10 mg oral tablet 1 tablet = 10 mg, By Mouth, Daily in AM, # 90 tablet, 3 Refills, Maintenance, 06/09/22 12:36:00 EST, Tablet, [facility]/pharmacy #[id number], Partial fill upon patient request if the prescription is for a schedule II opioid drug., 157, cm, 05/12/22 13:47:00 EDT, H... Start Date: 06/09/22 Stop Date: 06/04/23 Status: Ordered gabapentin 400 mg oral capsule 2, capsule, By Mouth, 3 times a day, # 180 capsule, Refills 5, Route to Pharmacy Electronically, [facility] STORE 12952, 159, cm, 12/21/21 15:41:00 EDT, Height, 93.6, [...] # 2.5 mL, 0 Refills, [facility], 18, INSTILL 1 DROP IN BOTH EYES DAILY BEFORE DINNER, 158, cm, 04/14/21 11:28:00 EDT, Height, 98.6, kg, 04/11/21 15:59:00 EDT, Dry Weight Start Date: 04/14/21 Status: Ordered Metoprolol Succinate ER 25 mg oral tablet, extended release 1 tablet, By Mouth, Daily, # 90 tablet, 2 Refills, [facility], 159, cm, 12/21/21 15:41:00 EDT,Height, 93.6, kg, 01/06/22 9:12:00 EDT, Dry Weight Start Date: 01/16/22 Status: Ordered nitroglycerin 0.4 mg sublingual tablet 1 tablet = 0.4 mg, Sublingual, Every 5 minutes, PRN as needed for chest pain, not to exceed 3 doses/15 min--if pain persists, seek medical attention, # 100 tablet, 0 Refills, Maintenance, 03/15/21 12:38:00 EDT, Tablet, [facility]/pharmacy #[id number], Partial fill... Start Date: 03/15/21 Status: Ordered rOPINIRole 0.5 mg oral tablet 1 tablet, By Mouth, 4 times a day, # 360 tablet, 1 Refills, [facility], 159, cm, 11/14/21 9:20:00 EDT, Height, 98, [...] 05/20/22 16:10:00 EDT, Route to Pharmacy Electronically, [facility]/pharmacy #[id number], Partial fill uponpatient request if the prescription [...] Team Personnel Name: Mojgan Lopez RN Position: [facility] RN Member Role: Primary Care Nurse Name: Lisa Carlson RN Position: [facility] RN Member Role: Primary Care Nurse Name: Estrellita Putnam RN Position: [facility] RN Member Role: Primary Care Nurse Name: Marlen Kenny RN Position: [facility] RN Member Role: Primary Care Nurse Name: Toshia Muhammad RN Position: [facility] RN Member Role: Primary Care Nurse Name: Suleman Jones RN Position: [facility] RN Member Role: Primary Care Nurse Name: Kathy Medina RN Position: [facility] RN Member Role: Primary Care Nurse Name: Lesli Mercedes RN Position: [facility] RN Member Role: Primary Care Nurse Name: Marguerite Wang RN Position: [facility] RN Member Role: Primary Care Nurse Name: Ananya Robledo RN Position: [facility] RN Member Role: Primary Care Nurse Name: Mick Tatum MD Position: [facility] Primary Care Physician Member Role: PCP Address: Address: [address] [place] [address] Name: Svitlana Clark RN Position: [facility] RN Member Role: Primary Care Nurse Name: Yoana Guevara RN Position: [facility] RN Member Role: Primary Care Nurse Name: Pierre Groves RN Position: [facility] RN Member Role: Primary Care Nurse Name: Carmen Murphy RN Position: [facility] RN Member Role: Primary Care Nurse Name: Rylie Ordonez RN Position: [facility] PCO RN Member Role: Primary Care Nurse Name: Marisa Negrete RN Position: [facility] RN Member [...] Newton RN Position: [facility] Hospital Casing Crew Pusher Member Role: Primary Care Nurse Care Team Related Persons Name: CLAUDIA URBINA Address: home [address] [place], [place] Name: RALPH SÁNCHEZ Address: home [address] [place], [place] Name: DONY CARCAMO Address: home [address] [place], [place]
--- OUTSIDE RECORDS SUMMARY | 2024-02-08 01:12 | XMS_ITS | Continuity of Care Document ---
Author Organization [facility] Address [address] [place] [address] [address], [address] [place] [address]- Care Team Providers Care Appeals Coordinator Name Role Phone Mick Tatum MD Primary Care Physician [phone] Encounter [facility] Date(s): 06/11/20 - 07/23/20 [facility] [address] [place] [address] Drive, [address] [place] [address]- Attending Physician: Kevan Schultz MD Referring Physician: Mick Tatum MD Allergies, [...] 8:48:00 EDT, [id number], cm, 03/11/20 12:49:00 EDT, Height, 91, kg, 02/28/20 22:14:00 EDT, Dry Weight Start Date: 03/30/20 Stop Date: 03/25/21 Status: Ordered Cosopt ophthalmic solution 1 drops, Eyes, Both, 2 times a day, 0 Refills Start Date: 02/09/09 Status: Ordered diclofenac 1% topical gel 1 application, Topically, 4 times a day, # 100 Gm, 5 Refills, Maintenance, 10/07/19 10:56:00 EDT, Gel, [id number], 160, cm, 08/19/19 8:02:00 EST, Height Start Date: 10/07/19 Status: Ordered Eliquis 5 mg oral tablet 1 tablet, By Mouth, 2 times a day, # 180 tablet, 3 Refills, Maintenance, 07/12/20 14:12:00 EST, [facility], 157, cm, 05/07/20 11:34:00 EDT, Height, 91, kg, 02/28/20 22:14:00 EDT, Dry Weight Start Date: 07/12/20 Status: Ordered gabapentin 400 mg oral capsule 400 mg, 1, capsule, By Mouth, 3 times a day, # 270 capsule, Refills 2, Tot. Refills 2, Maintenance,03/30/20 8:48:00 EDT, [facility] Pharm[facility]ically, [id number], 157, cm, 03/11/20 12:49:00 EDT, Height, 91, kg, 02/28/20 22:14:00 EDT, Dry... Start Date: 03/30/20 Stop Date: 12/25/20 Status: Ordered HYDROmorphone 2 mg oral tablet 1 tablet = 2 mg, By Mouth, Every 8 hours, PRN as needed for pain, # 20 tablet, 0 Refills, Maintenance, 07/14/20 8:36:00 EST, Tablet, [facility]/pharmacy #[id number], Partial fill upon patient request, [...]
--- OUTSIDE RECORDS SUMMARY | 2024-02-08 01:12 | XMS_ITS | Continuity of Care Document ---
Author Organization [facility] Gopi Jose lt Address [address] [place] [address]- Care Team Providers Care Grinding Room Supervisor Name Role Phone Mick Tatum MD Primary Care Physician [phone] Encounter [facility] [place] Date(s): 03/21/23 - 03/28/23 [facility] Adult [address] [place] [address]- Attending Physician: Mick Tatum MD Allergies, Adverse [...] 5 07/23/96 Recorde juan pablo 1Rhomeult Comment: [id number] 2Location History: DR LOAIZA 3Location History: DR LOAIZA 4Location History: DR LOAIZA 5Location History: DR LOAIZA Medications atorvastatin 40 mg oral tablet 1 tablet, By Mouth, Daily at bedtime, # 90 tablet, 3 Refills, Maintenance, 05/13/22 7:24:00 EDT, [facility], 157, cm, 05/12/22 13:47:00 EDT, Height, 94.3, [...] 3 Refills, Maintenance, 05/27/22 16:57:00 EDT, [facility], 157, cm, 05/12/22 13:47:00 EDT, Height, 94.3, kg, 01/19/22 4:25:00 EDT, Dry Weight Start Date: 05/27/22 Status: Ordered isosorbide mononitrate 60 mg oral tablet, extended release 60 mg, 1, tablet, By Mouth, 2 times a day, # 180 tablet, Refills 3, Tot. Refills 3, Maintenance, 07/10/22 16:07:00 EST, Route to Pharmacy Electronically, [facility]/pharmacy #[id number], Partial fill upon patientrequest if the prescription is for a schedule II op... Start Date: 07/10/22 Status: Ordered Jardiance 10 mg oral tablet 1 tablet = 10 mg, By Mouth, Daily in AM, # 30 tablet, 0 Refills, Maintenance, 03/21/23 15:11:00 EDT, Tablet, Partial fill upon patient request if the prescription is for a schedule II opioid drug. Start Date: 03/21/23 Status: Ordered Metoprolol Succinate ER 25 mg oral tablet, extended release 1 tablet, By Mouth, Daily, # 90 tablet, 3 Refills, 09/30/22 20:06:00 EST, [facility]/pharmacy #[id number], 157, cm, 09/15/22 11:19:00 EST, Height, 94.3, kg, 01/19/22 4:25:00 EDT, Dry Weight Start Date: 09/30/22 Status: Ordered nitroglycerin 0.4 mg sublingual tablet 1 tablet = 0.4 mg, Sublingual, Every 5 minutes, PRN as needed for chest pain, not to exceed 3 doses/15 min--if pain persists, seek medical attention, # 100 tablet, 0 Refills, Maintenance, 12/19/22 9:51:00 EDT, Tablet, [facility]/pharmacy #[id number], Partial fill... Start Date: 12/19/22 Status: Ordered pantoprazole 40 mg oral delayed release tablet 0 Refills, Maintenance, 03/21/23 14:39:00 EDT Start Date: 03/21/23 Status: Ordered rOPINIRole 0.5 mg oral tablet 1 tablet, By Mouth, 4 times a day, # 360 tablet, 1 Refills, Maintenance, 01/22/23 9:08:00 EDT, [facility], 157, cm, 12/28/22 14:14:00 EDT, Height, 94.3, kg, 01/19/22 4:25:00 EDT, Dry Weight Start Date: 01/22/23 Status: Ordered spironolactone 25 mg oral tablet 25 mg, 1, tablet, By Mouth, Daily, # 90 tablet, Refills 3, Tot. Refills 3, Maintenance, 10/09/22 15:42:00 EDT, Route to Pharmacy Electronically, [facility]/pharmacy #[id number], Partial fill upon patient [...] oldest [Reference Range]: 1 Height 157.0 cm (03/21/23 2:39 PM) Weight 77.2 kg (03/21/23 2:39 PM) Oxygen Saturation [94-100 %] 98 % (03/21/23 2:39 PM) Pulse Rate [55-90 bpm] 80 bpm (03/21/23 2:39 PM) Body Mass Index [18.5-24.99 kg/m2] 31.32 kg/m2 *>HHI* (03/21/23 2:39 PM) Blood Pressure [90-138/55-84 mm Hg] 100/ 60mm Hg (03/21/23 2:39 PM) Respiratory Rate [16-30 br/min] 16 br/mi n (03/21/23 2:39 PM) Temperature [96.8-100.4 DegF] 98.7 DegF (03/21/23 2:39 PM) Mode of Delivery (Oxygen) Room air (03/21/23 2:39 PM) Blood pressure sites Arm, right (03/21/23 2:39 PM) Temperature Route Oral (03/21/23 2:39 PM) Weight Obtained Via Patient/family state d (03/21/23 2:39 PM) Social History Social History Type Response Smoking Status Never (less than 100 in lifetime) entered on: 06/27/18 Sex Patient Care team information Care Team Personnel Name: Lisa Carlson RN [facility] RN Member Role: Primary Care Nurse Name: Estrellita Putnam RN [facility] RN Member Role: Primary Care Nurse Name: Marlen Kenny RN Position: [facility] RN Member Role: Primary Care Nurse Name: Toshia Muhammad RN Position: [facility] RN Supv Member Role: Primary Care Nurse Name: Suleman Jones RN Position: [facility] RN Member Role: Primary Care Nurse Name: Kathy Medina RN Position: [facility] RN Member Role: Primary Care Nurse Name: Mick Tatum MD Position: [facility] Physician - Primary Care Member Role: PCP Address: Address: [address] [place] [id number] Name: Svitlana Clark RN Position[facility] RN Member Role: Primary Care Nurse Name: Yoana Guevara RN Position: [facility] RN Member Role: Primary Care Nurse Name: Pierre Groves RN Position: [facility] RN Member Role: Primary Care Nurse Name: Carmen Murphy RN Position: [facility] RN Member Role: Primary Care Nurse Name: Rylie Ordonez RN Position: [facility] KIRSTIN Nurse Member Role: Primary Care Nurse Name: Marisa Negrete RN Position: [facility] RN Member Role: Primary Care Nurse Name: Aditi Brown RN Position: [facility] RN Member Role: Primary Care Nurse Name: Chana Cazares RN Position: [facility] RN Member Role: Primary Care Nurse Name: Toshia Urbina RN Position: [facility] RN Member Role: Primary Care Nurse Name: Isabel Gray Position: [facility] MA Director Toxicology Member Role: Environmental Engineering Manager Name: Aniyah Sloan RN Position: [facility] SN RN Member Role: Primary Care Nurse Name: Rosemary Ramon RN Position: [facility] OB RN Member Role: Primary Care Nurse Name: Sneha Newton RN Position: [facility] Hospital Restaurant And Bar Manager Member Role: Primary Care Nurse Care Team Related Persons Name: CLAUDIA URBINA Address: [address] [place] [address] Name: PRINCESS RALPH Address: [address] [place] [address] Name: DONY CARCAMO Address: home [address] [place] [address]
--- OUTSIDE RECORDS SUMMARY | 2024-02-08 01:12 | XMS_ITS | Continuity of Care Document ---
Author Organization [facility] Jose lt Address [address] [place] [address]- Care Team Providers Care Hydrotreater Operator Name Role Phone Марина CORDERO, Ignacio New Primary Care Physician [phone] Encounter [facility] Date(s): 03/10/20 - 04/09/20 [facility] Adult [address] [place] [address]- [facility] Allergies, Adverse Reactions, Alerts Substance Reaction [...] 03/30/20 8:48:00 EDT, Route to Pharmacy Electronically, [facility]/pharmacy #[id number], 157, cm, 03/11/20 12:49:00 EDT, Height, 91, kg, 02/28/20 22:14:00 EDT, Dry Weight Start Date: 03/30/20 Stop Date: 03/25/21 Status: Ordered Cosopt ophthalmic solution 1 drops, Eyes, Both, 2 times a day, 0 Refills Start Date: 02/09/09 Status: Ordered diclofenac 1% topical gel 1 application, Topically, 4 times a day, # 100 Gm, 5 Refills, Maintenance, 10/07/19 10:56:00 EDT, Gel, [facility]/pharmacy #[id number], 160, cm, 08/19/19 8:02:00 EST, [...] 03/10/20 10:49:00 EDT, [id number], cm, 03/10/20 8:47:00 EDT, Height, 91, kg, 02/28/20 22:14:00 EDT, Dry W... Start Date: 03/10/20 Status: Ordered Eliquis 5 mg oral tablet 1 tablet, By Mouth, 2 times a day, # 180 tablet, Refills 3 Tot. Refills 3, [facility]/pharmacy #[id number] Start Date: 06/17/19 Status: Ordered gabapentin 400 mg oral capsule 400 mg, 1, capsule, By Mouth, 3 times a day, # 21 capsule, Refills 0, Tot. Refills 0, Maintenance, 03/10/20 10:48:00 EDT, Route to Pharmacy Electronically, [facility]/pharmacy #[id number], 157, cm, 03/10/20 8:47:00 EDT, Height, 91, kg, 02/28/20 22:14:00 EDT, Dry W... Start Date: 03/10/20 Stop Date: 03/17/20 Status: Ordered gabapentin 400 mg oral capsule 400 mg, 1, capsule, By Mouth, 3 times a day, # 270 capsule, Refills 2, Tot. Refills 2, Maintenance,03/30/20 8:48:00 EDT, [id number], cm, 03/11/20 12:49:00 EDT, Height, 91, kg, 02/28/20 22:14:00 EDT, Dry... Start Date: 03/30/20 Stop Date: 12/25/20 Status: Ordered HYDROmorphone 2 mg oral tablet 1 tablet = 2 mg, By Mouth, Every 6 hours, PRN as needed for pain, # 28 tablet, 0 Refills, Maintenance, 03/11/20 15:06:00 EDT, Tablet, [facility]/pharmacy #[id number], Partial fill upon patient request, [...] 03/10/20 10:51:00 EDT, [id number], cm, 03/10/20 8:47:00 EDT, Height, [...]
--- OUTSIDE RECORDS SUMMARY | 2024-02-08 01:12 | XMS_ITS | Continuity of Care Document ---
Author Organization [facility] Address [address] [place] [address]- Care Team Providers Care Surveyor Rod Helper Name Role Phone Mick Tatum MD Primary Care Physician [phone] Encounter [facility] Date(s): 05/24/21 - 09/21/21 [facility] [address] [place] [address]- Attending Physician: Camacho CORDERO, Sanju Preciado Admitting Physician: Sanju Sauer MD Referring Physician: iMck Tatum MD Allergies, Adverse Reactions, Alerts Substance [...] 07/09/21 10:04:00 EST, Route to Pharmacy Electronically, [facility]/pharmacy #[id number], Partial fill upon patient request if the prescription is for a schedule II opioid . Start Date: 07/09/21 Stop Date: 07/04/22 Status: Ordered Cosopt 2.23%-0.68% ophthalmic solution 1 drops, Eyes, Both, 2 times a day, # 10 mL, 0 Refills, Maintenance, 03/23/21 9:41:00 EDT, Solution, [facility]/pharmacy #[id number], Partial fill [...] a day, # 180 tablet, 3 Refills, [facility] STORE 43027, 158, cm, 06/09/21 10:14:00 EST, Height, 98.6, kg, 04/11/21 15:59:00 EDT, Dry Weight Start Date: 06/17/21 Status: Ordered empagliflozin 10 mg oral tablet 1 tablet = 10 mg, By Mouth, Daily in AM, # 90 tablet, 3 Refills, Maintenance, 06/09/21 12:06:00 EST, Tablet, [facility]/pharmacy #[id number], [...] 07/31/21 10:21:00 EST, Route to Pharmacy Electronically, [facility]/pharmacy #[id number], 159, cm, 07/25/21 11:20:00 EST, Height, 98, kg, 07/06/21 19:57:00 EST, Dry Weight Start Date: 07/31/21 Status: Ordered isosorbide mononitrate 30 mg oral tablet, extended release 1 tablet, By Mouth, Daily, for 90 days, # 90 tablet, 3 Refills, Physician Stop 04/20/22 16:32:00 EDT, 04/25/21 16:32:00 EDT, [facility]/pharmacy #[id number], 158, cm, 04/25/21 14:49:00 EDT, Height, 98.6, kg, 04/11/21 15:59:00 EDT, Dry Weight Start Date: 04/25/21 Stop Date: 04/20/22 Status: Ordered latanoprost 0.005% ophthalmic solution See Instructions, INSTILL 1 DROP IN BOTH EYES DAILY BEFORE DINNER, # 2.5 mL, 0 Refills, [facility] STORE 55079, 18, INSTILL 1 DROP IN BOTH EYES DAILY BEFORE DINNER, 158, cm, 04/14/21 11:28:00 EDT, Height, 98.6, kg, 04/11/21 15:59:00 EDT, Dry Weight Start Date: 04/14/21 Status: Ordered Lipitor 40 mg oral tablet 1 tablet = 40 mg, By Mouth, Daily, # 30 tablet, 5 Refills, Maintenance, 04/28/21 6:50:00 EDT, Tablet, [facility]/pharmacy #[id number], [...] 12/06/20 13:03:00 EDT, [facility]ically, [facility] 0 Refills, Maintenance, 03/15/21 12:38:00 EDT, Tablet, [facility]/pharmacy #[id number], [...] 05/14/21 12:51:00 EDT, Route to Pharmacy Electronically, [facility]/pharmacy #[id number], Partial fill upon patient request if the prescription is... Start Date: 05/14/21 Stop Date: 11/10/21 Status: Ordered torsemide 20 mg oral tablet 1 tablet = 20 mg, By Mouth, Daily, # 30 tablet, 5 Refills, Maintenance, 05/10/21 4:19:00 EDT, Tablet, [facility]/pharmacy #[id number], [...]
--- OUTSIDE RECORDS SUMMARY | 2024-02-08 01:12 | XMS_ITS | Continuity of Care Document ---
Author Organization [facility] Gopi Jose lt Address [address] [place] [address]- Care Team Providers Care Correspondence Coordinator Name Role Phone Mick Tatum MD Primary Care Physician [phone] Encounter [facility] Date(s): 08/10/22 - 09/09/22 [facility] Adult [address] [place] [address]- Allergies, Adverse Reactions, Alerts Substance Reaction Severity [...] Given Parent Or Guardian Refuses 1Result Comment: [id number] 2Location History: DR LOAIZA 3Location History: DR LOAIZA 4Location History: DR LOAIZA 5Location History: DR LOAIZA Medications atorvastatin 40 mg oral tablet 1 tablet, By Mouth, Daily at bedtime, # 90 tablet, 3 Refills, Maintenance, 05/13/22 7:24:00 EDT, [facility], 157, cm, 05/12/22 13:47:00 EDT, Height, 94.3, [...] Refills, Maintenance, 05/13/22 9:34:00 EDT, Gel, [facility]/pharmacy #[id number], 157, cm, 05/12/22 13:47:00 EDT, Height, 94.3, kg, 01/19/22 4:25:00 EDT, Dry Weight Start Date: 05/13/22 Status: Ordered Eliquis 5 mg oral tablet 1 tablet, By Mouth, 2 times a day, # 180 tablet, 3 Refills, Maintenance, 05/27/22 16:57:00 EDT, [facility], 157, cm, 05/12/22 13:47:00 EDT, Height, 94.3, kg, 01/19/22 4:25:00 EDT, Dry Weight Start Date: 05/27/22 Status: Ordered empagliflozin 10 mg oral tablet 1 tablet = 10 mg, By Mouth, Daily in AM, # 90 tablet, 3 Refills, Maintenance, 06/09/22 12:36:00 EST, Tablet, [facility]/pharmacy #[id number], [...] 15:05:00 EST, Route to Pharmacy Electronically, [facility]/pharmacy #[id number], 157, cm, 07/27/22 15:56:00 EST, Height, 94.3, kg, 01/19/22 4:25:00 EDT, Dry Weight Start Date: 08/28/22 Status: Ordered isosorbide mononitrate 60 mg oral tablet, extended release 60 mg, 1, tablet, By Mouth, 2 times a day, # 180 tablet, Refills 3, Tot. Refills 3, Maintenance, 07/10/22 16:07:00 EST, Route to Pharmacy Electronically, [facility]/pharmacy #[id number], Partial fill upon patientrequest if the prescription is for a schedule II op... Start Date: 07/10/22 Status: Ordered latanoprost 0.005% ophthalmic solution See Instructions, INSTILL 1 DROP IN BOTH EYES DAILY BEFORE DINNER, # 2.5 mL, 0 Refills, [facility] STORE 66632, 18, INSTILL 1 DROP IN BOTH EYES DAILY BEFORE DINNER, 158, cm, 04/14/21 11:28:00 EDT, Height, 98.6, kg, 04/11/21 15:59:00 EDT, Dry Weight Start Date: 04/14/21 Status: Ordered Metoprolol Succinate ER 25 mg oral tablet, extended release 1 tablet, By Mouth, Daily, # 90 tablet, 2 Refills, [facility] 48043, 159, cm, 12/21/21 15:41:00 EDT,Height, 93.6, kg, 01/06/22 9:12:00 EDT, Dry Weight Start Date: 01/16/22 Status: Ordered nitroglycerin 0.4 mg sublingual tablet 1 tablet = 0.4 mg, Sublingual, Every 5 minutes, PRN as needed for chest pain, not to exceed 3 doses/15 min--if pain persists, seek medical attention, # 100 tablet, 0 Refills, Maintenance, 03/15/21 12:38:00 EDT, Tablet, [facility]/pharmacy #[id number], Partial fill... Start Date: 03/15/21 Status: Ordered rOPINIRole 0.5 mg oral tablet 1 tablet, By Mouth, 4 times a day, # 360 tablet, 1 Refills, Maintenance, 07/25/22 9:33:00 EST, [facility] ST[facility] 19631, 157, cm, 07/10/22 15:50:00 EST, Height, 94.3, kg, 01/19/22 4:25:00 EDT, Dry Weight Start Date: 07/25/22 Status: Ordered torsemide 20 mg oral tablet 2 tablet = 40 mg, By Mouth, Daily, for 90 days, # 180 tablet, 3 Refills, Physician Stop 07/26/23 8:14:00 EST, 07/31/22 8:14:00 EST, [facility]/pharmacy #[id number], 157, cm, 07/27/22 15:56:00 EST, Height, 94.3, kg, 01/19/22 4:25:00 EDT, Dry Weight Start Date: 07/31/22 Stop Date: 07/26/23 Status: Ordered torsemide 20 mg oral tablet 2 tablet = 40 mg, By Mouth, Daily, for 90 days, # 180 tablet, 3 Refills, Physician Stop 05/15/23 16:05:00 EDT, 05/20/22 16:05:00 EDT, [facility]/pharmacy #[id number], 157, cm, 05/12/22 13:47:00 EDT, Height, 94.3,kg, 01/19/22 4:25:00 EDT, Dry Weight Start Date: 05/20/22 Stop Date: 05/15/23 Status: Ordered Vitamin B1 100 mg oral tablet 100 mg, 1, tablet, By Mouth, Daily, # 90 tablet, Refills 3, Tot. Refills 3, Acute 05/20/23 16:10:00EDT, 05/20/22 16:10:00 EDT, Route to Pharmacy Electronically, [facility]/pharmacy #[id number], Partial fill uponpatient request if [...] Muhammad RN Position: [facility] RN Martha Member Role: Primary Care [...] Care Physician Member Role: PCP Address: Address: [address] [place] [address]- Name: Svitlana Clark RN Position: [facility] [...] Care Nurse Name: Sneha Newton RN Position: [facility] Senior Hardware Engineer Member Role: Primary Care Nurse Care Team Related Persons Name: CLAUDIA URBINA Address: home [address] [place], [place] Name: RALPH SÁNCHEZ Address: home [address] [place], [place] Name: DONY CARCAMO Address: home [address] [place], [place]
--- OUTSIDE RECORDS SUMMARY | 2024-02-08 01:12 | XMS_ITS | Continuity of Care Document ---
Author Organization [facility] ter Address [address] [place] [address]- Care Team Providers Care Churner Name Role Phone Rc CORDERO, Mick Clay Primary Care Physician [phone] En[place] [facility] [place] Date(s): 10/21/20 - 01/02/[address] [address] Attending Physician: Elizabeth Bay NP Admitting Physician: Elizabeth Bay NP Referring Physician: Elizabeth Bay NP Allergies, Adverse Reactions, Alerts Substance Reaction Severity [...] 03/30/20 8:48:00 EDT, Route to Pharmacy Electronically, [facility]/pharmacy #[id number], 157, cm, 03/11/20 12:49:00 EDT, Height, 91, kg, 02/28/20 22:14:00 EDT, Dry Weight Start Date: 03/30/20 Stop Date: 03/25/21 Status: Ordered aspirin 81 mg oral delayed release tablet 81 mg, 1, tablet, By Mouth, Daily, # 30 tablet, Refills 0, Tot. Refills 0, Maintenance, 09/20/20 14:38:00 EST, Route to Pharmacy Electronically, [facility]/pharmacy #[id number], Partial fill upon patient request if the prescription is for a schedule II opioid drug... Start Date: 09/20/20 Status: Ordered budesonide 3 mg oral delayed release capsule 1 capsule = 3 mg, By Mouth, Daily in AM, # 30 capsule, 5 Refills, Acute 02/27/21 10:03:00 EDT, 11/25/20 10:36:00 EDT, [facility]/pharmacy #[id number], Partial fill upon patient request [...] 3 Refills, Maintenance, 07/12/20 14:12:00 EST, [facility], 157, cm, 05/07/20 11:34:00 EDT, Height, 91, [...] 0 Refills, Maintenance, 08/30/20 10:02:00 EST, Tablet, [facility]/pharmacy #[id number], Partial fill upon patient request, 157, cm, 08/30/20 7:27:00 EST, Height, 91, kg, 02/28/20 22:... Start Date: 08/30/20 Status: Ordered metoprolol 25 mg oral tablet, extended release 25 mg, 1, tablet, By Mouth, Daily, # 30 tablet, Refills 5, Tot. Refills 5, Maintenance, 12/06/20 13:03:00 EDT, Route to Pharmacy Electronically, [facility]/pharmacy #[id number], Partial fill upon patient request if the prescription is for a schedule II opioid drug... Start Date: 12/06/20 Stop Date: 06/04/21 Status: Ordered predniSONE 5 mg oral tablet See Instructions, Take 8 pills (40 mg) a day for five days then decrease by one pill every 5 days.,# 180 tablet, 0 Refills, Maintenance, 11/25/20 12:14:00 EDT, Tablet, [facility]/pharmacy #[id number], Partial fill upon patient request [...] tablet, 0 Refills,Soft Stop, 10/21/20 16:26:00 EDT, [facility]/pharmacy #[id number], Partial fill upon patient request [...]
--- OUTSIDE RECORDS SUMMARY | 2024-02-08 01:12 | XMS_ITS | Continuity of Care Document ---
Author Organization [facility] Gopi Jose lt Address [address] [place] [address]- Care Team Providers Care Paralegal Specialist Name Role Phone Rc CORDERO, Mick Clay Primary Care Physician [phone] Encounter [facility] Date(s): 08/03/21 - 09/02/21 [facility] [place] Adult [address] [place] [address]- Allergies, Adverse Reactions, Alerts Substance Reaction Severity [...] 07/09/21 10:04:00 EST, Route to Pharmacy Electronically, [facility]/pharmacy #[id number], Partial fill upon patient request if the prescription is for a schedule II opioid .. Start Date: 07/09/21 Stop Date: 07/04/22 Status: Ordered Cosopt 2.23%-0.68% ophthalmic solution 1 drops, Eyes, Both, 2 times a day, # 10 mL, 0 Refills, Maintenance, 03/23/21 9:41:00 EDT, Solution, [facility]/pharmacy #[id number], Partial fill upon patient request if the prescription is for a schedule II opioid drug., 1 drops Eyes, Both 2 times a day, 159, cm... Start Date: 03/23/21 Status: Ordered [facility] ASPIRIN EC 81 MG TABLET [...] Maintenance, 10/07/19 10:56:00 EDT, Gel, [facility]/pharmacy #[id number], 160, cm, 08/19/19 8:02:00 EST, Height Start Date: 10/07/19 Status: Ordered Eliquis 5 mg oral tablet 1 tablet, By Mouth, 2 times a day, # 180 tablet, 3 Refills, [facility] STORE 88856, 158, cm, 06/09/21 10:14:00 EST, Height, 98.6, kg, 04/11/21 15:59:00 EDT, Dry Weight Start Date: 06/17/21 Status: Ordered empagliflozin 10 mg oral tablet 1 tablet = 10 mg, By Mouth, Daily in AM, # 90 tablet, 3 Refills, Maintenance, 06/09/21 12:06:00 EST, Tablet, [facility]/pharmacy #[id number], Partial [...] 07/31/21 10:21:00 EST, Route to Pharmacy Electronically, [facility]/pharmacy #[id number], 159, cm, 07/25/21 11:20:00 EST, Height, 98, kg, 07/06/21 19:57:00 EST, Dry Weight Start Date: 07/31/21 Status: Ordered isosorbide mononitrate 30 mg oral tablet, extended release 1 tablet, By Mouth, Daily, for 90 days, # 90 tablet, 3 Refills, Physician Stop 04/20/22 16:32:00 EDT, 04/25/21 16:32:00 EDT, [facility]/pharmacy #[id number], 158, cm, 04/25/21 14:49:00 EDT, Height, 98.6, kg, 04/11/21 15:59:00 EDT, Dry Weight Start Date: 04/25/21 Stop Date: 04/20/22 Status: Ordered latanoprost 0.005% ophthalmic solution See Instructions, INSTILL 1 DROP IN BOTH EYES DAILY BEFORE DINNER, # 2.5 mL, 0 Refills, [facility] STORE 16952, 18, INSTILL 1 DROP IN BOTH EYES DAILY BEFORE DINNER, 158, cm, 04/14/21 11:28:00 EDT, Height, 98.6, kg, 04/11/21 15:59:00 EDT, Dry Weight Start Date: 04/14/21 Status: Ordered Lipitor 40 mg oral tablet 1 tablet = 40 mg, By Mouth, Daily, # 30 tablet, 5 Refills, Maintenance, 04/28/21 6:50:00 EDT, Tablet, [facility]/pharmacy #[id number], Partial [...] 12/06/20 13:03:00 EDT, [facility] Pharmacy Electronically, [facility] [...] 05/14/21 12:51:00 EDT, Route to Pharmacy Electronically, [facility] [...]
--- OUTSIDE RECORDS SUMMARY | 2024-02-08 01:12 | XMS_ITS | Continuity of Care Document ---
Author Organization [facility] Gopi Jose lt Address [address] [place] [address]- Care Team Providers Care Community Education Coordinator Name Role Phone Mick Tatum MD Primary Care Physician [phone] Encounter [facility] Date(s): 10/10/22 - 11/09/22 [facility] [place] Adult [address] [place] [address]- Allergies, Adverse Reactions, Alerts Substance Reaction Severity [...] Given Parent Or Guardian Refuses 1Result Comment: [id number] 2Location History: DR LOAIZA 3Location History: DR LOAIZA 4Location History: DR LOAIZA 5Location History: DR LOAIZA Medications atorvastatin 40 mg oral tablet 1 tablet, By Mouth, Daily at bedtime, # 90 tablet, 3 Refills, Maintenance, 05/13/22 7:24:00 EDT, [facility], 157, cm, 05/12/22 13:47:00 EDT, Height, 94.3, [...] 3 Refills, Maintenance, 05/27/22 16:57:00 EDT, [facility], 157, cm, 05/12/22 13:47:00 EDT, Height, 94.3, [...] BEFORE DINNER, # 2.5 mL, 0 Refills, [facility] STORE 89611, 18, INSTILL 1 DROP IN BOTH EYES DAILY BEFORE DINNER, 158, cm, 04/14/21 11:28:00 EDT, Height, 98.6, kg, 04/11/21 15:59:00 EDT, Dry Weight Start Date: 04/14/21 Status: Ordered Metoprolol Succinate ER 25 mg oral tablet, extended release 1 tablet, By Mouth, Daily, # 90 tablet, 3 Refills, 09/30/22 20:06:00 EST, [facility]/pharmacy #[id number], 157, cm, 09/15/22 11:19:00 EST, [...] tablet, 1 Refills, Maintenance, 07/25/22 9:33:00 EST, [facility] STORE 28349, 157, cm, 07/10/22 15:50:00 EST, Height, 94.3, kg, 01/19/22 4:25:00 EDT, Dry Weight Start Date: 07/25/22 Status: Ordered spironolactone 25 mg oral tablet 25 mg, 1, tablet, By Mouth, Daily, # 90 tablet, Refills 3, Tot. Refills 3, Maintenance, 10/09/22 15:42:00 EDT, [facility] to Pharmacy Electronically, [facility] Team Personnel Name: Lisa Carlson RN Position: [facility] RN Member Role: Primary Care Nurse Name: Estrellita Putnam RN [facility] [...] Care Nurse Name: Lesli Mercedes RN Position: [facility] RN Member Role: Primary Care Nurse Name: Marguerite Wang RN Position: [facility] RN Member Role: Primary Care Nurse Name: Mick Tatum MD Position: [facility] Primary Care Physician Member Role: PCP Address: Address: [address] [place] [address]- Name: Svitlana Clark RN Position: [facility] RN Member Role: Primary Care Nurse Name: Yoana Guevara RN Position: [facility] RN Member Role: Primary Care Nurse Name: Pierre Groves RN Position: [facility] RN Member Role: Primary Care Nurse Name: Carmen Murphy RN Position: [facility] RN Member Role: Primary Care Nurse Name: Rylie Ordonez RN Position: [facility] PCO RN Member Role: Primary Care Nurse Name: Aditi Brown RN Position: [facility] RN Member Role: Primary Care Nurse Name: Chana Cazares RN Position: [facility] RN Member Role: Primary Care Nurse Name: Toshia Urbina RN Position: [facility] RN Member Role: Primary Care Nurse Name: Aniyah Sloan RN Position: [facility] SN RN Member Role: Primary Care Nurse Name: Rosemary Ramon RN Position: [facility] OB RN Member Role: Primary Care Nurse Name: Sneha Newton RN Position: [facility] Auto Vinyl Top Installer Member Role: Primary Care Nurse Care Team Related Persons Name: CLAUDIA URBINA Address: [address] [place] [address] Name: RALPH SÁNCHEZ Address: [address] [place] [address] Name: DONY CARCAMO Address: [address] [place] [address]
--- OUTSIDE RECORDS SUMMARY | 2024-02-08 01:12 | XMS_ITS | Continuity of Care Document ---
Author Organization [facility] Address [address] [place] [address] [address], [address] [place] [address]- Care Team Providers Care Server Software Engineer Name Role Phone Mick Tatum MD Primary Care Physician [phone] [place] [facility] [place] 06/22/23 - 07/22/[address], [address] [place], [place] [address] Attending Physician: Admtr, [id number] Admitting Physician: Admtr, [id number] Referring Physician: Admtr, [...] (Td) 5 07/23/96 Recorde d 1Result Comment: [id number] 2Location History: DR LOAIZA 3Location History: DR LOAIZA 4Location History: DR LOAIZA 5Location History: DR LOAIZA Medications atorvastatin 40 mg oral tablet 1 tablet, By Mouth, Daily at bedtime, # 90 tablet, 1 Refills, Maintenance, 05/04/23 6:30:00 EDT, [facility], 157, cm, 03/21/23 14:39:00 EDT, Height, 94.3, [...] 0 Refills, Soft Stop, 05/31/23 7:14:00 EST, [facility]/pharmacy #[id number], Partial fill [...] tablet, 3 Refills, Maintenance, 06/15/23 1:44:00 EST, [facility] 474[facility], 157, cm, 05/31/23 6:38:00 EST, Height, 94.3, kg, 01/19/22 4:25:00 EDT, Dry Weight Start Date: 06/15/23 Status: Ordered HYDROmorphone 2 mg oral tablet 1 tablet = 2 mg, By Mouth, Every 6 hours, PRN Pain , Severe, Dx: M51.36, # 28 tablet, 0 Refills, Acute 11/18/23 15:27:00 EDT, 07/19/23 15:25:00 EST, [facility]/pharmacy #[id number], Partial fill upon patient request if the prescription is for a schedule II opioid... Start Date: 07/19/23 Stop Date: 11/18/23 Status: Ordered isosorbide mononitrate 30 mg oral tablet, extended release 1 tablet, By Mouth, Daily, # 90 tablet, 3 Refills, Maintenance, 06/13/23 8:27:00 EST, [facility] 33873, 157, cm, 05/31/23 6:38:00 EST, Height, 94.3, kg, 01/19/22 4:25:00 EDT, Dry Weight Start Date: 06/13/23 Status: Ordered isosorbide mononitrate 60 mg oral tablet, extended release 1 tablet, By Mouth, 2 times a day, # 180 tablet, 3 Refills, Maintenance, 06/13/23 8:27:00 EST, [facility] 45194, 157, cm, 05/31/23 6:38:00 EST, Height, 94.3, kg, 01/19/22 4:25:00 EDT, Dry Weight Start Date: 06/13/23 Status: Ordered Jardiance 10 mg oral tablet 1 tablet, By Mouth, Daily in AM, # 90 tablet, 3 Refills, Maintenance, 06/04/23 8:09:00 EST, [facility], 157, cm, 05/31/23 6:38:00 EST, Height, 94.3, kg, 01/19/22 4:25:00 EDT, Dry Weight Start Date: 06/04/23 Stop Date: 09/02/23 Status: Ordered Metoprolol Succinate ER 25 mg oral tablet, extended release 1 tablet, By Mouth, Daily, # 90 tablet, 3 Refills, 09/30/22 20:06:00 EST, [facility]/pharmacy #[id number], 157, cm, 09/15/22 11:19:00 [...] Refills, Maintenance, 01/22/23 9:08:00 EDT, [facility], 157, cm, 12/28/22 14:14:00 EDT, Height, 94.3, kg, 01/19/22 4:25:00 EDT, Dry Weight Start Date: 01/22/23 Status: Ordered spironolactone 25 mg oral tablet 25 mg, 1, tablet, By Mouth, Daily, # 90 tablet, Refills 3, Tot. Refills 3, Maintenance, 10/09/22 15:42:00 EDT, [id number] Partial fill upon patient request if the prescription is for a schedule II opioid drug... Start Date: 10/09/22 Stop Date: 10/04/23 Status: Ordered torsemide 20 mg oral tablet 2 tablet = 40 mg, By Mouth, Daily, for 90 days, # 180 tablet, 3 Refills, Physician Stop 07/26/23 8:14:00 EST, 07/31/22 8:14:00 EST, [facility]/pharmacy #[id number], 157, cm, 07/27/22 15:56:00 [...] Primary Care Member Role: PCP Address: Address: [address] [place] [id number]- Name: Svitlana Clark RN Position: [facility] [...] Member Role: Primary Care Nurse Address: Address: [address] [place] [address]- Name: Rylie Ordonez RN Position: [facility] AMB Nurse Member Role: [...] Primary Care Nurse Name: Isabel Gray Position: [facility] [place] Buncher Hand Member Role: County Or City Auditor Name: Aniyah Sloan RN Position: [facility] SN RN Member Role: Primary Care Nurse Name: Rosemary Ramon RN Position: [facility] OB RN Member Role: Primary Care Nurse Name: Sneha Newton RN Position: [facility] Hospital Fur Tanner Member Role: Primary Care Nurse Care Team Related Persons Name: CARLITOS CLAUDIA Address: home [address] [place], [place] Name: RALPH SÁNCHEZ Address: [address] [place] [address] Name: DONAURMILA LisaNDA Address: home [address] [facility] [place] [address]
--- OUTSIDE RECORDS SUMMARY | 2024-02-08 01:12 | XMS_ITS | Continuity of Care Document ---
Author Organization [facility] Address [address] [place] [id number]- Care Team Providers Care Exercise Physiology Professor Name Role Phone Rc CORDERO, Mick Clay Primary Care Physician [place] [facility] [place] 06/22/21 [facility] [address] [place] [id number] [place] Allergies, Adverse Reactions, Alerts Substance Reaction [...] 04/27/21 13:28:00 EDT, Route to Pharmacy Electronically, [facility]/pharmacy #[id number], Partial fill upon patient request if the prescription... Start Date: 04/27/21 Stop Date: 10/24/21 Status: Ordered aspirin 81 mg oral delayed release tablet 81 mg, 1, tablet, By Mouth, Daily, # 30 tablet, Refills 5, Tot. Refills 5, Maintenance, 10/24/21 13:28:00 EDT, Route to [facility] Electronically, [facility] 0 Refills, Maintenance, 03/23/21 9:41:00 EDT, Solution, [facility]/pharmacy #[id number], Partial fill upon patient request if the prescription is for a schedule II opioid drug., 1 drops Eyes, Both 2 times a day, 159, cm... Start Date: 03/23/21 Status: Ordered [facility] ASPIRIN EC 81 MG TABLET [facility] ASPIRIN EC 81 MG TABLET, 1, tablet, By Mouth, Daily, # 30 tablet, 0 Refills, 158, cm, 04/14/21 11:28:00 EDT, Height, 98.6, kg, 04/11/21 15:59:00 EDT, Dry Weight Start Date: 04/22/21 Status: Ordered diclofenac 1% topical gel 1 application, Topically, 4 times a day, # 100 Gm, 5 Refills, Maintenance, 10/07/19 10:56:00 EDT, Gel, [facility]/pharmacy #[id number], 160, cm, 08/19/19 8:02:00 EST, Height Start Date: 10/07/19 Status: Ordered Eliquis 5 mg oral tablet 1 tablet, By Mouth, 2 times a day, # 180 tablet, 3 Refills, [id number], 158, cm, 06/09/21 10:14:00 EST, Height, 98.6, [...] Acute 07/17/21 8:24:00 EST, 06/17/21 8:24:00 EST, [facility]/pharmacy #[id number], Partial [...] Refills, [facility] [id number], 18, INSTILL 1 DROP IN BOTH EYES [...] Refills, [id number], 158, cm, 04/25/21 14:49:00 EDT,Height, 98.6, kg, [...] 05/14/21 12:51:00 EDT, Route to Pharmacy Electronically, [facility] [...]
--- NOTE | 2024-02-08 02:45 | ED_ITS ---
HPI - Fall General Chief Complaint: Fall Stated Complaint: FALL Time Seen by Provider: 02/08/24 00:55 Source: patient Mode of arrival: EMS Limitations: no limitations History of Present Illness ED Provider: mary LANE Narrative: Patient with weakness recent admission to rehab after pneumonia discharge home 1 week ago was walking tripped on the floor threshold came with 10 x 10 cm avulsion laceration left knee no loss of consciousness no head injury patient is on Eliquis Related Data Home Medications ?Medication ?Instructions ?Recorded ?Confirmed apixaban 5 mg tablet (Eliquis) 5 mg PO BID 12/02/20 01/16/24 ropinirole 0.5 mg tablet 1 mg PO BEDTIME 12/02/20 01/16/24 atorvastatin 40 mg tablet 1 tab PO BEDTIME 05/11/21 01/16/24 spironolactone 25 mg tablet 25 mg PO DAILY@0900,1800 09/01/22 01/16/24 ropinirole 0.5 mg tablet 0.5 mg PO BID@1200,1800 09/06/22 01/16/24 duloxetine 20 mg capsule,delayed 20 mg PO BEDTIME 08/31/23 01/16/24 release gabapentin 400 mg capsule 800 mg PO TID 08/31/23 01/16/24 metoprolol succinate 50 mg 50 mg PO DAILY 08/31/23 01/16/24 tablet,extended release 24 hr oxycodone 5 mg tablet 5 mg PO BID PRN Pain 08/31/23 01/16/24 azathioprine 50 mg tablet 50 mg PO BID 12/09/23 01/16/24 pantoprazole 40 mg tablet,delayed 40 mg PO DAILY@0630 12/09/23 01/16/24 release Previous Rx's ?Medication ?Instructions ?Recorded nitroglycerin 0.4 mg sublingual 0.4 mg sublingual Q5M PRN chest 09/06/22 tablet pain #30 tabs furosemide 40 mg tablet 40 mg PO DAILY #30 tabs 12/18/23 isosorbide mononitrate 30 mg 30 mg PO BID #60 tabs 12/18/23 tablet,extended release 24 hr budesonide 3 mg 9 mg (3 x 3 mg) PO DAILY #270 caps 12/20/23 capsule,delayed,extended release Allergies Allergy/AdvReac Type Severity Reaction Status Date / Time dogs, cats etc.. Allergy Unknown Unknown Uncoded 02/08/24 00:25 barium Allergy Hives Uncoded 02/08/24 00:25 Review of Systems 2 Review of Systems: Yes all other systems are reviewed and are negative [facility] Past Medical History Medical History History of CHF (congestive heart failure) Constipation Acute proctitis Hemorrhoids Spinal abscess Restless leg syndrome HTN (hypertension) Pre-diabetes DVT (deep venous thrombosis) Colitis Ulcerative colitis Surgical History Hx of shoulder surgery Social History Social History Household Members: Family Household Members Other:: 2 Housing: House Do you presently have visiting nurse or other home services: Yes Unable to assess alcohol history related to: Unable to respond Alcohol intake: never Patient Tobacco Use Status: Never used Tobacco Smoked in Last 30 Days: No Use of substances other than those prescribed or required for medical reasons: No Advance Directives: Yes Advance Directives on File: Yes Advance Directives Date on File: 11/16/22 service: No Current occupational status: retired Physical Exam 2 Vital Signs: Vital Signs: Last Vital Signs Temp 98.5 F 02/08/24 08:03 Pulse 74 02/08/24 08:03 Resp 18 02/08/24 08:03 BP 111/48 L 02/08/24 08:03 Pulse Ox 93 02/08/24 08:03 O2 Del Method Room Air 02/08/24 08:03 BMI result Body Mass Index 35.6 Appearance: Alert. Oriented X3. No acute distress. Obese Eyes: PERRLA, No Nystagmus ENT: Pharynx normal. Oral Mucosa moist atraumatic normocephalic Neck: Normal inspection. Neck supple. No midline tenderness CVS: Normal heart rate and rhythm. Pulses normal. Respiratory: No respiratory distress. Equal air entry bilateral, no wheezing/rales/rhonchi Abdomen: Soft and nontender. Bowel sounds are present, no mass palpable, no CVA tenderness Skin: Skin warm and dry. Normal skin color. Normal skin turgor. Extremities:+ lower extremity edema. No calf tenderness 10 x 10 cm avulsion laceration left knee Neuro: Oriented X 3. No motor deficit. No sensory deficit.No cerebellar signs , cranial nerves II-XII intact Procedures Laceration Laceration 1: Site: lower extremity (Knee) Side (If applicable): left Size (cm): 20 Description: flap Depth: simple, single layer Skin layer closed with: other (Steri-Strips) Medical Decision Making Medical Decision Making [facility] Narrative: Patient status post mechanical fall with avulsion laceration to left knee obese unsteady gait x-ray negative for fracture will plan for placement Lab Data [facility] Lab Attestation statement: I reviewed the patient's lab results. 02/08/24 07:21 02/08/24 07:21 Labs: Lab Results 02/08/24 Range/Units 07:21 WBC 6.6 (4.8-10.8) X10*3/uL RBC 3.48 L (4.20-5.50) X10*6/uL Hgb 10.7 L (12.0-16.0) g/dl Hct 33.5 L (37.0-47.0) % MCV 96.3 (80.0-98.0) fL MCH 30.7 (27.0-33.0) pg MCHC 31.9 (31.0-35.0) g/dl RDW 21.0 H (11.0-16.0) % Plt Count 369 (160-400) X10*3/uL MPV 9.3 L (9.4-12.3) fL Immature Gran % (Auto) 0.6 H (0.0-0.4) % Neut % (Auto) 75.0 H (45-73) % Lymph % (Auto) 12.1 L (20-40) % Hardy % (Auto) 11.2 H (2-11) % Eos % (Auto) 0.6 (0-4) % Baso % (Auto) 0.5 (0-2) % Lymph # (Auto) 0.8 L (1.2-4.9) X10*3/uL Hardy # (Auto) 0.7 (0.1-1.2) X10*3/uL Eos # (Auto) 0.0 (0.0-0.4) X10*3/uL Baso # (Auto) 0.0 (0.0-0.2) X10*3/uL Abs Immat Gran (auto) 0.04 H (0.00-0.03) X10*3/uL Absolute Neuts (auto) 5.0 (2.0-8.3) x10*3/uL Absolute Nucleated RBC 0.000 (0.0-0.012) X10*3/uL Nucleated RBC % (auto) 0.0 (0.0-0.2) /100WBC Independent Interpretation I performed an independent interpretation of an: Plain X-Ray Interpretation: no fx Radiology Impression Discussion of test interpretation with radiology: I have reviewed the radiologist's reading. Discharge Plan Discharge Clinical Impression: Unsteady gait, Laceration of knee, left Patient Disposition: Still a Patient Prescriptions: No Action budesonide 3 mg capsule,delayed,extend.release 9 mg PO DAILY Qty: 270 3RF ropinirole 0.5 mg tablet 0.5 mg PO BID@1200,1800 nitroglycerin 0.4 mg tablet, sublingual 0.4 mg sublingual Q5M MDD 1.2mg (3 doses) PRN (Reason: chest pain) Qty: 30 0RF Rx Instructions: do not exceed 3 doses per episode atorvastatin 40 mg tablet 1 tab PO BEDTIME azathioprine 50 mg tablet 50 mg PO BID pantoprazole 40 mg tablet,delayed release (DR/EC) 40 mg PO DAILY@0630 furosemide 40 mg Tablet 40 mg PO DAILY Qty: 30 0RF Protocol: Hold for SBP< HOLD for SBP < : 90 isosorbide mononitrate 30 mg Tablet Extended Release 24 Hr 30 mg PO BID Qty: 60 0RF Protocol: Hold for SBP< HOLD for SBP < : 90 ropinirole 0.5 mg tablet 1 mg PO BEDTIME Eliquis 5 mg tablet 5 mg PO BID spironolactone 25 mg tablet 25 mg PO DAILY@0900,1800 metoprolol succinate 50 mg tablet extended release 24 hr 50 mg PO DAILY Rx Instructions: with 25 mg; TDD 75 MG duloxetine 20 mg capsule,delayed release(DR/EC) 20 mg PO BEDTIME gabapentin 400 mg capsule 800 mg PO TID oxycodone 5 mg tablet 5 mg PO BID PRN (Reason: Pain) Print Language: Japanese
--- NOTE | 2024-02-08 06:54 | ECG_ITS ---
Test Reason : atfib Blood Pressure : / mmHG Vent. Rate : 064 BPM Atrial Rate : 064 BPM P-R Int : 172 ms QRS Dur : 098 ms QT Int : 422 ms P-R-T Axes : 049 -23 017 degrees QTc Int : 435 ms Normal sinus rhythm Low voltage QRS Borderline ECG When compared with ECG of 16-JAN-2024 15:40, Borderline criteria for Lateral infarct are no longer Present Referred By: Robel Roe Electronically Signed By:JESSICA SANDOVAL MD
--- NOTE | 2024-02-08 07:24 | PC.NURSE ---
report received from previous RN. patient resting on stretcher at this time, blood work obtained by this RN, EKG completed by this RN, patient requesting breakfast, diet order in by previous RN. patient offering no complaits, states no pain while sitting in bed. awaiting PT and case management
[2024-02-08 07:25] LABS: MANUAL DIFF FLAG NO
[2024-02-08 07:26] LABS: Basophils Percent Auto 0.5 % (0-2); Eosinophils Percent Auto 0.6 % (0-4); Hematocrit 33.5 % (37.0-47.0); Hemoglobin 10.7 g/dl (12.0-16.0); Imm Gran Abs Auto 0.04 X10*3/uL (0.00-0.03); Imm Gran Pct Auto 0.6 % (0.0-0.4); Lymphocytes Absolute Auto 0.8 X10*3/uL (1.2-4.9); Lymphocytes Percent Auto 12.1 % (20-40); Mean Corpuscular HGB Conc 31.9 g/dl (31.0-35.0); Mean Corpuscular Hemoglobin 30.7 pg (27.0-33.0); Mean Corpuscular Volume 96.3 fL (80.0-98.0); Mean Platelet Volume 9.3 fL (9.4-12.3); Monocytes Absolute Auto 0.7 X10*3/uL (0.1-1.2); Monocytes Percent Auto 11.2 % (2-11); Platelet Count 369 X10*3/uL (160-400); Red Blood Count 3.48 X10*6/uL (4.20-5.50); White Blood Count 6.6 X10*3/uL (4.8-10.8)
[2024-02-08 08:30] LABS: Alanine Aminotransferase 26 U/L (0-31); Aspartate Amino Transferase 31 U/L (5-31)
[2024-02-08 08:32] LABS: Albumin Level 3.2 g/dL (3.5-5.0); Alkaline Phosphatase 73 U/L (39-117); Bilirubin Total 0.6 mg/dL (0.0-1.0); Calcium 9.3 mg/dL (8.4-10.2); Glucose Random 106 mg/dL (60-115); Total Protein 5.8 g/dL (6.5-8.0)
[2024-02-08 08:33] LABS: Anion Gap 11 (12-20); Blood Urea Nitrogen 20 mg/dL (9-16); Carbon Dioxide 27 mmol/L (22-29); Chloride 109 mmol/L (96-108); Creatinine Clr Calc Pharmacy 46.4; Estimated Glomerular Filt Rate > 60; Potassium 4.1 mmol/L (3.3-5.1); Sodium 143 mmol/L (135-145)
--- NOTE | 2024-02-08 08:39 | PC.NURSE ---
patient had small bowel movement on bed marti, incontinence care provided, otoniel pad changed, patient placed back on pure wick. call gustafson within reach, all safety maintained.
[2024-02-08 10:15] LABS: COVID-19 Test Negative (Negative); IDNOW Serial# 152EDE1D
[2024-02-08] MEDS: Acetaminophen 325 MG TABLET 975 MG PO (15:26)
--- NOTE | 2024-02-08 15:35 | MHC.CM.ED ---
Received case management consult overnight. Patient came to the ER due to a fall. Work up essentially negative. Physical therapy eval completed. Acute rehab is recommended. Patient was at [facility] from 01/16-01/29 and was d/c'd home with [facility] JOS[facility]A. Referral made in [facility] to [facility]. Continue to monitor for d/c needs.
[2024-02-08] MEDS: oxyCODONE HCl Immed Release 5 MG TABLET PO (17:49)
--- NOTE | 2024-02-09 00:12 | MHC.EDTECH ---
Pt stated she felt like she needed to be changed. This tech and RN noticed Pts purewick out of place. Bedding change done, Pt cleaned and repositioned with new purewick placed. Warm blanket given, call gustafson within reach.
[2024-02-09] MEDS: oxyCODONE HCl Immed Release 5 MG TABLET PO ×2 (01:56→14:22)
[2024-02-09 06:35] VITALS: BP 151/58; PULSE 72; RESP 16; TEMP 36.6; O2SAT 95
--- NOTE | 2024-02-09 06:36 | MHC.EDTECH ---
Pt found to be incontinent of urine despite having a purewick (400ml of urine emptied from suction canister). Pt cleaned, repositioned and new purewick placed. Call gustafson within reach.
--- NOTE | 2024-02-09 08:37 | MHC.CM.ED ---
Addendum entered by Ct Watson 02/09/24 15:37: Pt sleeping during both ED CM attempts to meet. Call placed to dtr Lashon: Informed her that pt has not been accepted to acute rehab - discussed STR options/sites and agreed on selections. Broad referrals placed and presently awaiting offers. ED CM to follow. Original Note: Pt continues holding in the ED awaiting transfer back to [facility] where she had just been one week prior. Message sent to facility inquiring on bed availability. Awaiting response.
[2024-02-09] MEDS: Acetaminophen 325 MG TABLET 975 MG PO (08:43)
[2024-02-09] MEDS: Metoprolol Succinate ER 50 MG TAB.ER.24H PO (11:27)
[2024-02-09] MEDS: Apixaban 5 MG TABLET PO ×2 (11:27→21:17)
[2024-02-09] MEDS: Furosemide 20 MG TABLET PO (11:27)
[2024-02-09 11:30] VITALS: BP 102/60
[2024-02-09] MEDS: azaTHIOprine 50 MG TABLET PO ×2 (12:51→21:19)
[2024-02-09] MEDS: Gabapentin 300 MG CAPSULE PO ×2 (14:22→21:18)
[2024-02-09] MEDS: Empagliflozin 10 MG TABLET PO (14:22)
[2024-02-09] MEDS: rOPINIRole HCL 0.5 MG TABLET PO (14:22)
--- NOTE | 2024-02-09 14:30 | PC.NURSE ---
Dressing to the left knee changed, patient tolerated procedure well
--- NOTE | 2024-02-09 14:54 | MHC.EDTECH ---
assisted nurse with wound change. patients linens were changed.
--- NOTE | 2024-02-09 16:16 | MHC.EDTECH ---
This pct assumed care of patient at 1500 ,Patient awake and watching television ,plan of care continue .
[2024-02-09 16:25] VITALS: BP 134/50; PULSE 60; RESP 16; TEMP 36.9; O2SAT 97
--- NOTE | 2024-02-09 18:05 | MHC.EDTECH ---
Patient was set up with dinner ate 25 % of meal ,Pt said she was not hungry ,Plan of care continue .
[2024-02-09] MEDS: Acetaminophen 325 MG TABLET 650 MG PO (18:44)
[2024-02-09 20:33] VITALS: BP 104/48; PULSE 72; RESP 16; TEMP 36.3; O2SAT 96
[2024-02-09] MEDS: Atorvastatin Calcium 40 MG TABLET PO (21:17)
[2024-02-09] MEDS: Gabapentin 400 MG CAPSULE PO (21:18)
[2024-02-09] MEDS: rOPINIRole HCL 1 MG TABLET PO (21:18)
[2024-02-09] MEDS: DULoxetine HCl 20 MG CAPSULE.DR PO (21:19)
[2024-02-09] MEDS: Nystatin Powder 15 GM BOTTLE 1 APPL TOPICAL (21:25)
--- NOTE | 2024-02-09 22:10 | PC.NURSE ---
assist with changing into gown, redness noted under R breast, nystatin applied. pt repositioned to R side for comfort. pericare done, purewick was not working properly, knee immobilizer was soiled. removed and washed, drying at this time. knee is straight in bed. call sj w/in reach
[2024-02-10] MEDS: oxyCODONE HCl Immed Release 5 MG TABLET PO ×3 (02:55→17:17)
[2024-02-10] MEDS: Omeprazole 20 MG CAPSULE.DR PO (05:54)
[2024-02-10 05:58] VITALS: BP 127/55; PULSE 60; RESP 20; TEMP 36.4; O2SAT 98
--- NOTE | 2024-02-10 06:17 | PC.NURSE ---
pt resting comfortably most of the night, reported R rib pain, medicated per SEP, then felt relief and was able to rest. knee immobilizer still wet, pt repositioned to her back. call sj w/in reach
[2024-02-10] MEDS: Acetaminophen 325 MG TABLET 650 MG PO ×2 (08:07→21:12)
--- NOTE | 2024-02-10 08:22 | PC.NURSE ---
called pharmacy for meds not available in pyxis
[2024-02-10 08:45] VITALS: BP 108/46; PULSE 70; RESP 18; O2SAT 96
--- NOTE | 2024-02-10 08:47 | PC.NURSE ---
informed Suyapa PA of pts low BP, checked twice, plan to hold AM BP meds at this time. will monitor BP for improvement. pt is asymptomatic
[2024-02-10] MEDS: Apixaban 5 MG TABLET PO ×2 (09:14→21:06)
[2024-02-10] MEDS: Multivitamin TABLET 1 TAB PO (09:14)
[2024-02-10] MEDS: Gabapentin 400 MG CAPSULE PO ×2 (09:14→21:26)
[2024-02-10] MEDS: Gabapentin 300 MG CAPSULE PO ×2 (09:14→21:06)
[2024-02-10] MEDS: Empagliflozin 10 MG TABLET PO (09:14)
[2024-02-10] MEDS: Magnesium Oxide 400 MG TABLET PO (09:14)
[2024-02-10] MEDS: Furosemide 20 MG TABLET PO (09:14)
[2024-02-10] MEDS: polyethylene glycoL 3350 17 GM POWD.PACK PO (11:07)
[2024-02-10] MEDS: Docusate Sodium 100 MG CAPSULE PO ×2 (11:08→21:07)
[2024-02-10] MEDS: azaTHIOprine 50 MG TABLET PO ×2 (11:08→22:01)
[2024-02-10] MEDS: rOPINIRole HCL 0.5 MG TABLET PO ×2 (12:41→17:17)
--- NOTE | 2024-02-10 12:59 | MHC.CM.ED ---
Addendum entered by Ct Watson 02/10/24 14:17: Spoke with eBtty Orozco liasion: she has requested MD review for determining if pt is an ARF candidate. She expects a response on 02/10. ED CM to follow - STR referrals active Original Note: Review of ARF and SNF referrals: no bed available at [facility] but may have some on 02/10: [facility] is following but needs to confirm pts last ARF dates. Pt states she d/c'd from [facility] on 01/29. Pt and dtr Lashon updated on above: both cite [facility] as first choice. No response from Molina Orozco. ED CM to follow
--- NOTE | 2024-02-10 13:25 | PC.NURSE ---
incontinent of stool, patient cleaned and repositioned in bed. new haider wrap applied to left lower extremity.
[2024-02-10 21:07] VITALS: BP 118/56
[2024-02-10] MEDS: Atorvastatin Calcium 40 MG TABLET PO (21:07)
[2024-02-10] MEDS: Isosorbide Mononitrate 30 MG TAB.ER.24H 15 MG PO (21:07)
[2024-02-10] MEDS: Nystatin Powder 15 GM BOTTLE 1 APPL TOPICAL (21:26)
[2024-02-10] MEDS: rOPINIRole HCL 1 MG TABLET PO (21:26)
[2024-02-10] MEDS: DULoxetine HCl 20 MG CAPSULE.DR PO (21:26)
[2024-02-10 21:45] VITALS: BP 118/56; PULSE 98; RESP 18; TEMP 37.7; O2SAT 97
--- NOTE | 2024-02-11 00:07 | MHC.EDTECH ---
THIS PCT ASSUMED CARE OF PATIENT AT 2330 ,PATIENT SLEEPING ,PLAN OF CARE CONTINUE .
[2024-02-11] MEDS: oxyCODONE HCl Immed Release 5 MG TABLET PO ×2 (00:11→09:04)
[2024-02-11] MEDS: Omeprazole 20 MG CAPSULE.DR PO (06:10)
[2024-02-11 06:13] VITALS: BP 129/54; PULSE 68; RESP 16; TEMP 36.7; O2SAT 95
--- NOTE | 2024-02-11 06:13 | MHC.EDTECH ---
0600 rounding done .Pt awake ,Patient was inc ,bed bath given ,and bedding change ,new pure wick in place ,550 ml empty from pure wick ,call gustafson within pt reach ,pt watching television .
--- NOTE | 2024-02-11 07:13 | PC.NURSE ---
report brionna Akers RN
[2024-02-11] MEDS: azaTHIOprine 50 MG TABLET PO (08:53)
[2024-02-11] MEDS: Apixaban 5 MG TABLET PO (08:53)
[2024-02-11 08:54] VITALS: BP 104/46
[2024-02-11] MEDS: Spironolactone 25 MG TABLET PO (08:54)
[2024-02-11] MEDS: Docusate Sodium 100 MG CAPSULE PO (09:01)
[2024-02-11] MEDS: Empagliflozin 10 MG TABLET PO (09:02)
[2024-02-11 09:05] VITALS: BP 104/46
[2024-02-11] MEDS: Magnesium Oxide 400 MG TABLET PO (09:05)
[2024-02-11] MEDS: Furosemide 20 MG TABLET PO (09:05)
[2024-02-11 09:06] VITALS: BP 104/46
[2024-02-11] MEDS: Multivitamin TABLET 1 TAB PO (09:06)
[2024-02-11] MEDS: Isosorbide Mononitrate 30 MG TAB.ER.24H 15 MG PO (09:06)
[2024-02-11] MEDS: Gabapentin 400 MG CAPSULE PO (09:07)
[2024-02-11 09:08] VITALS: BP 104/46; PULSE 70
[2024-02-11] MEDS: Metoprolol Succinate ER 25 MG TAB.ER.24H PO (09:08)
[2024-02-11] MEDS: Nystatin Powder 15 GM BOTTLE 1 APPL TOPICAL (09:09)
[2024-02-11] MEDS: Gabapentin 300 MG CAPSULE PO (09:12)
--- NOTE | 2024-02-11 12:49 | MHC.CM.ED ---
Patient remains in ER oveflow. [facility] is not able to offer a bed. Referral broadcasted to all SNF's within 15 miles. [facility] is the only facility that is able to offer a bed at this time. This was discussed with patient at bedside and daughter, Lashon, via telephone at [phone]. Both accept bed. Patient can leave at 1pm. Franko OWENS booked. Med [facility] with chart. Patient, Delphine VERNON and Brittany BETHEA aware. Continue to monitor for d/c needs.
[2024-02-11] MEDS: rOPINIRole HCL 0.5 MG TABLET PO (12:56)
== END 2024-02-11 13:04 ==
PROVIDERS: Physician Assistant Medical; Emergency Provider Internal Medicine; PCP Family Medicine
DX: R26.81 Unsteadiness on feet (principal); S81.012A Laceration without foreign body, left knee, initial encounter; W01.0XXA Fall on same level from slipping, tripping and stumbling without subsequent striking against object, initial encounter; I11.0 Hypertensive heart disease with heart failure; I50.9 Heart failure, unspecified; Z86.718 Personal history of other venous thrombosis and embolism; Z11.52 Encounter for screening for COVID-19; Y93.89 Activity, other specified; Y92.9 Unspecified place or not applicable; Y99.9 Unspecified external cause status; Z79.01 Long term (current) use of anticoagulants; Z79.02 Long term (current) use of antithrombotics/antiplatelets; Z79.899 Other long term (current) drug therapy
CPT/HCPCS: 36415; 71101; 72100; 73502; 73560; 80053; 85025; 87635; 93005; 97161; 99285

== ENCOUNTER → 2024-02-08 06:54 | Outpatient (BNV) | payer MEDICARE, SELFPAY | PROVIDERS: Emergency Provider Internal Medicine; PCP Family Medicine; Visit Provider Internal Medicine Cardiovascular Disease | DX: I48.91 Unspecified atrial fibrillation (principal) | CPT/HCPCS: 93010 ==

== ENCOUNTER 2024-05-24 02:21 | Emergency (ER) | payer MEDICARE, SELFPAY ==
[2024-05-24 02:33] VITALS: BP 111/54; BP 126/84; PULSE 102; PULSE 88; RESP 16; TEMP 37; O2SAT 97; O2SAT 98; BMI 32.3
--- NOTE | 2024-05-24 02:48 | ED.NAVMDI ---
HPI - Nausea/Vomiting/Diarrhea General Chief complaint: Nausea/Vomiting/Diarrhea Stated complaint: weakness, N/V/D x1 day, not feeling well Time Seen by Provider: 05/24/24 02:43 Source: patient Mode of arrival: EMS Limitations: no limitations History of Present Illness ED Provider: mary LANE Narrative: Patient's history of GERD ulcerative colitis pretty stable as such started having nausea and diarrhea since yesterday had multiple episode of watery stool does not remember any bad food or meat outside no fever no chills no blood in his stool no recent antibiotic take Related Data Home Medications ?Medication ?Instructions ?Recorded ?Confirmed apixaban 5 mg tablet (Eliquis) 5 mg PO BID 12/02/20 02/08/24 atorvastatin 40 mg tablet 1 tab PO BEDTIME 05/11/21 02/08/24 spironolactone 25 mg tablet 25 mg PO DAILY@0900 09/01/22 02/09/24 ropinirole 0.5 mg tablet 0.5 mg PO BID@1200,1800 09/06/22 02/08/24 gabapentin 400 mg capsule 400 mg PO BID 08/31/23 02/09/24 metoprolol succinate 50 mg 25 mg PO DAILY 08/31/23 02/09/24 tablet,extended release 24 hr azathioprine 50 mg tablet 50 mg PO BID 12/09/23 02/08/24 pantoprazole 40 mg tablet,delayed 40 mg PO DAILY@0630 12/09/23 02/08/24 release furosemide 40 mg tablet 20 mg PO DAILY 02/08/24 02/08/24 albuterol sulfate 90 mcg/actuation 2 puff inhalation Q4-6H PRN 02/09/24 02/09/24 aerosol inhaler wheezing duloxetine 20 mg capsule,delayed 20 mg PO BEDTIME 02/09/24 02/09/24 release empagliflozin 10 mg tablet 10 mg PO DAILY 02/09/24 02/09/24 (Jardiance) gabapentin 300 mg capsule 300 mg PO BID 02/09/24 02/09/24 isosorbide mononitrate 30 mg 15 mg PO BID 02/09/24 02/09/24 tablet,extended release 24 hr magnesium oxide 400 mg PO DAILY 02/09/24 02/09/24 multivitamin 1 tab PO DAILY 02/09/24 02/09/24 nitroglycerin 0.4 mg sublingual 0.4 mg sublingual Q5M PRN Chest 02/09/24 02/09/24 tablet Pain nystatin 100,000 unit/gram topical 1 appl topical BID 02/09/24 02/09/24 powder oxycodone 5 mg tablet 5 mg PO BID PRN Pain (Scale Score 02/09/24 02/09/24 4-6) ropinirole 0.5 mg tablet 1 mg PO BEDTIME 02/09/24 02/09/24 Previous Rx's ?Medication ?Instructions ?Recorded budesonide 3 mg 9 mg (3 x 3 mg) PO DAILY #270 caps 12/20/23 capsule,delayed,extended release ondansetron 4 mg disintegrating 4 mg PO Q6-8H PRN nausea and 05/24/24 tablet vomiting #7 tabs Allergies Allergy/AdvReac Type Severity Reaction Status Date / Time dogs, cats etc.. Allergy Unknown Unknown Uncoded 05/24/24 02:36 barium Allergy Hives Uncoded 05/24/24 02:36 Review of Systems Review of Systems: Yes all other systems are reviewed and are negative [facility] Past Medical History Medical History History of CHF (congestive heart failure) Constipation Acute proctitis Hemorrhoids Spinal abscess Restless leg syndrome HTN (hypertension) Pre-diabetes DVT (deep venous thrombosis) Colitis Ulcerative colitis Surgical History Hx of shoulder surgery Social History Social History Household Members: Family Household Members Other:: 2 Housing: House Do you presently have visiting nurse or other home services: Yes Unable to assess alcohol history related to: Unable to respond Alcohol intake: never Patient Tobacco Use Status: Never used Tobacco Smoked in Last 30 Days: No Use of substances other than those prescribed or required for medical reasons: No Advance Directives: Yes Advance Directives on File: Yes Advance Directives Date on File: 11/16/22 Do you have a plan to hurt others: No Plan service: No Current occupational status: retired Physical Exam Vital Signs: Vital Signs: Last Vital Signs Temp 98.7 F 05/24/24 05:48 Pulse 99 05/24/24 05:48 Resp 18 05/24/24 05:48 BP 107/54 L 05/24/24 05:48 Pulse Ox 94 05/24/24 05:48 O2 Del Method Room Air 05/24/24 05:48 BMI result Body Mass Index 32.3 Appearance: Alert. Oriented X3. No acute distress. Eyes: No pallor or icterus ENT: Pharynx normal. Oral Mucosa moist Neck: Normal inspection. Neck supple. CVS: Normal heart rate and rhythm. Pulses normal. Respiratory: No respiratory distress. Equal air entry bilateral, no wheezing/rales/rhonchi Abdomen: Soft and nontender. Bowel sounds are present, no mass palpable, no CVA tenderness Skin: Skin warm and dry. Normal skin color. Normal skin turgor. Extremities: No lower extremity edema. No calf tenderness Neuro: Oriented X 3. No motor deficit. Medications Administered Discontinued Medications Generic Name Dose Route Start Last Admin Trade Name Freq PRN Reason Stop Dose Admin Sodium Chloride 1,000 mls @ 999 mls/hr 05/24/24 03:05 05/24/24 04:48 Ns IV 05/24/24 04:05 Infused .Q1H1M ONE Infusion Loperamide HCl 2 mg 05/24/24 03:12 05/24/24 03:30 Loperamide Hcl 2 Mg Capsule PO 05/24/24 03:13 2 mg ONCE ONE Administration Ondansetron HCl 4 mg 05/24/24 03:06 05/24/24 03:30 Ondansetron Hcl 4 Mg/2 Ml Vial IVPUSH 05/24/24 03:07 4 mg ONCE ONE Administration Ropinirole HCl 1 mg 05/24/24 04:55 05/24/24 05:04 Ropinirole Hcl 1 Mg Tablet PO 05/24/24 04:56 1 mg ONCE ONE Administration Medical Decision Making Medical Decision Making MDM Narrative: Patient has acute gastroenteritis etiology not clear likely viral/food improved after IV fluids taking p.o. fluids in the ER discharge patient home labs are stable Lab Data [facility] Lab Attestation statement: I reviewed the patient's lab results. 05/24/24 03:25 05/24/24 03:25 Labs: Lab Results 05/24/24 Range/Units 03:25 WBC 7.0 (4.8-10.8) X10*3/uL RBC 4.24 D (4.20-5.50) X10*6/uL Hgb 11.9 L (12.0-16.0) g/dl Hct 36.6 L (37.0-47.0) % MCV 86.3 (80.0-98.0) fL MCH 28.1 (27.0-33.0) pg MCHC 32.5 (31.0-35.0) g/dl RDW 18.0 H (11.0-16.0) % Plt Count 340 (160-400) X10*3/uL MPV 8.9 L (9.4-12.3) fL Immature Gran % (Auto) 0.4 (0.0-0.4) % Neut % (Auto) 72.5 (45-73) % Lymph % (Auto) 13.2 L (20-40) % [place] % (Auto) 12.7 H (2-11) % Eos % (Auto) 0.6 (0-4) % Baso % (Auto) 0.6 (0-2) % Lymph # (Auto) 0.9 L (1.2-4.9) X10*3/uL [place] # (Auto) 0.9 (0.1-1.2) X10*3/uL Eos # (Auto) 0.0 (0.0-0.4) X10*3/uL Baso # (Auto) 0.0 (0.0-0.2) X10*3/uL Abs Immat Gran (auto) 0.03 (0.00-0.03) X10*3/uL Absolute Neuts (auto) 5.0 (2.0-8.3) x10*3/uL Absolute Nucleated RBC 0.000 (0.0-0.012) X10*3/uL Nucleated RBC % (auto) 0.0 (0.0-0.2) /100WBC Sodium 143 (135-145) mmol/L Potassium 3.6 (3.3-5.1) mmol/L Chloride 107 (96-108) mmol/L Carbon Dioxide 25 (22-29) mmol/L Anion Gap 15 (12-20) BUN 18 H (9-16) mg/dL Creatinine 0.87 (0.5-1.4) mg/dL Estim Creat Clear Calc 46.2 Estimated GFR > 60 Random Glucose 133 H (60-115) mg/dL Calcium 9.0 (8.4-10.2) mg/dL Magnesium 2.1 (1.6-2.6) mg/dL Total Bilirubin 0.9 (0.0-1.0) mg/dL AST 23 (5-31) U/L ALT 12 (0-31) U/L Alkaline Phosphatase 86 (39-117) U/L Total Protein 6.1 L (6.5-8.0) g/dL Albumin 3.1 L (3.5-5.0) g/dL Discharge Plan Discharge Clinical Impression: Gastroenteritis Patient Disposition: Home, Self-Care Instructions: Gastroenteritis (DC) Additional Instructions: Drink plenty of fluids Medicine for nausea as prescribed Imodium for severe diarrhea only Follow with your PCP Prescriptions: New ondansetron 4 mg tablet,disintegrating 4 mg PO Q6-8H PRN (Reason: nausea and vomiting) Qty: 7 0RF No Action budesonide 3 mg capsule,delayed,extend.release 9 mg PO DAILY Qty: 270 3RF ropinirole 0.5 mg tablet 0.5 mg PO BID@1200,1800 atorvastatin 40 mg tablet 1 tab PO BEDTIME azathioprine 50 mg tablet 50 mg PO BID pantoprazole 40 mg tablet,delayed release (DR/EC) 40 mg PO DAILY@0630 furosemide 40 mg tablet 20 mg PO DAILY Protocol: Hold for SBP< HOLD for SBP < : 90 duloxetine 20 mg Capsule,Delayed Release(Dr/Ec) 20 mg PO BEDTIME Jardiance 10 mg Tablet 10 mg PO DAILY gabapentin 300 mg Capsule 300 mg PO BID Rx Instructions: TAKES WITH 400 MG CAPSULE FOR TOTAL DOSE OF 700 MG isosorbide mononitrate 30 mg Tablet Extended Release 24 Hr 15 mg PO BID ropinirole 0.5 mg Tablet 1 mg PO BEDTIME Rx Instructions: administer 1-3 hours before bedtime magnesium oxide 400 mg magnesium Tablet 400 mg PO DAILY multivitamin Tablet 1 tab PO DAILY nystatin 100,000 unit/gram Powder 1 appl TOPICAL BID nitroglycerin 0.4 mg Tablet, Sublingual 0.4 mg SUBLINGUAL Q5M PRN (Reason: Chest Pain) Rx Instructions: do not exceed 3 doses per episode oxycodone 5 mg Tablet 5 mg PO BID PRN (Reason: Pain (Scale Score 4-6)) albuterol sulfate 90 mcg/actuation HFA aerosol inhaler 2 puff inhalation Q4-6H PRN (Reason: wheezing) Eliquis 5 mg tablet 5 mg PO BID spironolactone 25 mg tablet 25 mg PO DAILY@0900 metoprolol succinate 50 mg tablet extended release 24 hr 25 mg PO DAILY gabapentin 400 mg capsule 400 mg PO BID Interventions: ED Discharge Assessment Last Done: 05/24/24 05:48 Discharge Date/Time: 05/24/24 05:49 Print Language: Afghan
--- OUTSIDE RECORDS SUMMARY | 2024-05-24 03:16 | XMS_ITS | Continuity of Care Document ---
Author Organization [facility] Address [address] [place] [id number]- Care Team Providers Care Boiler Operator Name Role Phone Mick Tatum MD Primary Care Physician [phone] Encounter [facility] [place] Date(s): 11/14/23 - 02/13/24 [facility] [address] [place] [id number]- Attending Physician: Reza Lipscomb NP Admitting Physician: Reza Lipscomb NP Allergies, Adverse Reactions, Alerts Substance Reaction Severity Status amoxicillin 1 Active Other Food Allergy 2 chicken, peppers, onions Resolved Other Environmental Allergy 3 Active Benadryl Shaking Active Cats Active Contrast [...] toxoids (Td) 5 07/23/96 Augiemin Bingham Comment: [phone] 2Location History: DR LOAIZA 3Location History: DR LOAIZA 4Location History: DR LOAIZA 5Location History: DR LOAIZA Medications atorvastatin 40 mg oral tablet 1 tablet, By Mouth, Daily at bedtime, # 90 tablet, 1 Refills, Maintenance, 10/30/23 9:30:00 EDT, [facility] [id number], 157, cm, 10/26/23 13:58:00 EDT, Height, 94.3, [...] capsule, 3 Refills, Maintenance, 09/26/23 5:28:00 EST, [facility] [id number], 157, cm, 09/18/23 11:23:00 EST, Height, 94.3, kg, 01/19/22 4:25:00 EDT, Dry Weight Start Date: 09/26/23 Status: Ordered Eliquis 5 mg oral tablet 1 tablet, By Mouth, 2 times a day, # 180 tablet, 3 Refills, Maintenance, 06/15/23 1:44:00 EST, [facility] [id number], 157, cm, 05/31/23 6:38:00 EST, Height, 94.3, kg, 01/19/22 4:25:00 EDT, Dry Weight Start Date: 06/15/23 Status: Ordered isosorbide mononitrate 60 mg oral tablet, extended release 1 tablet, By Mouth, 2 times a day, # 180 tablet, 3 Refills, Maintenance, 06/13/23 8:27:00 EST, [facility] [id number], 157, cm, 05/31/23 6:38:00 EST, Height, 94.3, kg, 01/19/22 4:25:00 EDT, Dry Weight Start Date: 06/13/23 Status: Ordered Jardiance 10 mg oral tablet 1 tablet, By Mouth, Daily in AM, # 90 tablet, 3 Refills, Maintenance, 06/04/23 8:09:00 EST, [facility] [id number], 157, cm, 05/31/23 6:38:00 EST, Height, 94.3, kg, 01/19/22 4:25:00 EDT, Dry Weight Start Date: 06/04/23 Stop Date: 09/02/23 Status: Ordered Metoprolol Succinate ER 25 mg oral tablet, extended release 1 tablet, By Mouth, Daily, # 30 tablet, 5 Refills, Maintenance, 01/17/24 7:34:00 EDT, [facility] [id number], 157, cm, 11/13/23 16:25:00 EDT, Height, 94.3, kg, 01/19/22 4:25:00 EDT, Dry Weight Start Date: 01/17/24 Status: Ordered nitroglycerin 0.4 mg sublingual tablet [...] tablet, 1 Refills, Maintenance, 09/17/23 7:52:00 EST, [facility] [id number], 157, cm, 08/14/23 10:05:00 EST, Height, 94.3, [...] tablet, 3 Refills, Maintenance, 08/13/23 9:50:00 EST, [facility] [id number], 157, cm, 06/27/23 16:10:00 EST, Height, 94.3, [...] Primary Care Member Role: PCP Address: Address: [address] [place] [address]- [place] Name: Svitlana Clark RN Position: [facility] RN Member Role: Primary Care Nurse Name: Yoana Guevara RN Position: [facility] RN Member Role: Primary Care Nurse Name: Pierre Groves RN Position: [facility] RN Member Role: Primary Care Nurse Name: Carmen Murphy NP Position: [facility] PCO Associate Professional Member Role: Primary Care Nurse Address: Address: [address] [place] [address]- [place] Name: Rylie Ordonez RN Position: [facility] RN Member Role: Primary Care Nurse Name: Marisa Negrete RN Position: [facility] AMB Nurse Member Role: Primary Care Nurse Name: Aditi Brown RN Position: [facility] Onco RN Member Role: Primary Care Nurse Name: Chana Cazares RN Position: [facility] RN Member Role: Primary Care Nurse Name: Toshia Urbina RN Position: [facility] RN Member Role: Primary Care Nurse Name: Isabel Gray Position: [facility] MA Manager Molecular Member Role: Supervisory Geographer Name: Aniyah Sloan RN Position: [facility] SN RN Member Role: Primary Care Nurse Name: Rosemary Ramon RN Position: [facility] OB RN Member Role: Primary Care Nurse Name: Sneha Newton RN Position: [facility] An/Ssn 2 4 Operator Member Role: Primary Care Nurse Care Team Related Persons Name: GAUDENCIO URBINAALD Address: [address] [place] [address] Name: RALPH SÁNCHEZ Address: [address] [place] [address] Name: DONY CARCAMO Address: [address] [place] [address]
--- OUTSIDE RECORDS SUMMARY | 2024-05-24 03:17 | XMS_ITS | Continuity of Care Document ---
Author Organization [facility] Address [address] [place] [address]- Care Team Providers Care Cake Tester Name Role Phone Rc CORDERO, Mick Clay Primary Care Physician [place] [facility] 01/15/24 - 02/14/24 [facility] [address] [place] [address]- Allergies, Adverse Reactions, Alerts Substance Reaction Severity [...] 5 07/23/96 Recorde juan pablo Bingham Comment: [phone] 2Location History: DR LOAIZA 3Location History: DR LOAIZA 4Location History: DR LOAIZA 5Location History: DR LOAIZA Medications atorvastatin 40 mg oral tablet 1 tablet, By Mouth, Daily at bedtime, # 90 tablet, 1 Refills, Maintenance, 10/30/23 9:30:00 EDT, [facility] [id number], 157, cm, 10/26/23 13:58:00 EDT, Height, 94.3, [...] Gm, 1 Refills, Maintenance, 06/29/23 16:21:00 EST, [facility]/pharmacy #[id number], Partial safia... Start Date: 06/29/23 Status: Ordered duloxetine 20 mg oral enteric coated capsule 1 capsule, By Mouth, Daily at bedtime, # 90 capsule, 3 Refills, Maintenance, 09/26/23 5:28:00 EST, [facility] [id number], 157, cm, 09/18/23 11:23:00 EST, Height, 94.3, kg, 01/19/22 4:25:00 EDT, Dry Weight Start Date: 09/26/23 Status: Ordered Eliquis 5 mg oral tablet 1 tablet, By Mouth, 2 times a day, # 180 tablet, 3 Refills, Maintenance, 06/15/23 1:44:00 EST, [facility] 27965, 157, cm, 05/31/23 6:38:00 EST, Height, 94.3, kg, 01/19/22 4:25:00 EDT, Dry Weight Start Date: 06/15/23 Status: Ordered isosorbide mononitrate 60 mg oral tablet, extended release 1 tablet, By Mouth, 2 times a day, # 180 tablet, 3 Refills, Maintenance, 06/13/23 8:27:00 EST, [facility] [id number], 157, cm, 05/31/23 6:38:00 EST, Height, 94.3, kg, 01/19/22 4:25:00 EDT, Dry Weight Start Date: 06/13/23 Status: Ordered Jardiance 10 mg oral tablet 1 tablet, By Mouth, Daily in AM, # 90 tablet, 3 Refills, Maintenance, 06/04/23 8:09:00 EST, [facility] [id number], 157, cm, 05/31/23 6:38:00 EST, Height, 94.3, kg, 01/19/22 4:25:00 EDT, Dry Weight Start Date: 06/04/23 Stop Date: 09/02/23 Status: Ordered Metoprolol Succinate ER 25 mg oral tablet, extended release 1 tablet, By Mouth, Daily, # 30 tablet, 5 Refills, Maintenance, 01/17/24 7:34:00 EDT, [facility] [id number], 157, cm, 11/13/23 16:25:00 EDT, Height, 94.3, [...] 06/28/23 12:35:00 EST, Route to Pharmacy Electronically, [facility]/pharmacy #[id number], Partial fill upon patient request if t... Start Date: 06/28/23 Stop Date: 06/28/24 Status: Ordered pantoprazole 40 mg oral delayed release tablet 0 Refills, Maintenance, 03/21/23 14:39:00 EDT Start Date: 03/21/23 Status: Ordered rOPINIRole 0.5 mg oral tablet 1 tablet, By Mouth, 4 times a day, # 360 tablet, 1 Refills, Maintenance, 09/17/23 7:52:00 EST, [facility] [id number], 157, cm, 08/14/23 10:05:00 EST, Height, 94.3, kg, 01/19/22 4:25:00 EDT, Dry Weight Start Date: 09/17/23 Status: Ordered spironolactone 25 mg oral tablet 25 mg, 1, tablet, By Mouth, 2 times a day, # 180 tablet, Refills 3, Tot. Refills 3, Maintenance, 08/27/23 12:45:00 EST, Route to Pharmacy Electronically, [facility]/pharmacy #[id number], Partial fill upon patientrequest if the prescription is for a schedule II op... Start Date: 08/27/23 Stop Date: 08/21/24 Status: Ordered torsemide 20 mg oral tablet 2 tablet, By Mouth, Daily, # 180 tablet, 3 Refills, Maintenance, 08/13/23 9:50:00 EST, [facility] 28[facility], 157, cm, 06/27/23 16:10:00 EST, Height, 94.3, [...] Team Personnel Name: Estrellita Putnam RN Position: [facility] RN Member Role: Primary Care Nurse Name: Marlen Kenny RN Position: [facility] RN Member Role: Primary Care Nurse Name: Tosiha Muhammad RN Position: [facility] RN Martha Member Role: Primary Care Nurse Name: Suleman Jones RN Position: [facility] RN Member Role: Primary Care Nurse Name: Kathy Medina RN Position: [facility] RN Member Role: Primary Care Nurse Name: Marguerite Wang RN Position: [facility] RN Member Role: Primary Care Nurse Name: Mick Tatum MD Position: [facility] Physician - Primary Care Member Role: PCP Address: Address: [address] [place] [address]- [place] Name: Svitlana Clark RN Position: [facility] RN Member Role: Primary Care Nurse Name: Yoana Guevara RN Position: [facility] RN Member Role: Primary Care Nurse Name: Pierre Groves RN Position: [facility] RN Member Role: Primary Care Nurse Name: Carmen Murphy NP Position: [facility] PCO Associate Professional Member Role: Primary Care Nurse Address: Address: [address] [place] [address]- [place] Name: Rylie Ordonez RN Position: [facility] RN Member Role: Primary Care Nurse Name: Marisa Negrete RN Position: [facility] AMB Nurse Member Role: Primary Care Nurse Name: Aditi Brown RN Position: [facility] Onco RN Member Role: Primary Care Nurse Name: Chana Cazares RN Position: [facility] RN Member Role: Primary Care Nurse Name: Toshia Urbina RN Position: [facility] RN Member Role: Primary Care Nurse Name: Isabel Gray Position: [facility] [place] Pipe Fitter Ammonia Member Role: Sheepskin Pickler Name: Aniyah Sloan RN Position: [facility] SN RN Member Role: Primary Care Nurse Name: Rosemary Ramon RN Position: [facility] OB RN Member Role: Primary Care Nurse Name: Sneha Newton RN Position: [facility] Hospital Ad Operations Intern Member Role: Primary Care Nurse Care Team Related Persons Name: CLAUDIA URBINA Address: [address] [place] [address] Name: RALPH SÁNCHEZ Address: [address] [place] [address] Name: DONY CARCAMO Address: [address] [place] [address]
--- OUTSIDE RECORDS SUMMARY | 2024-05-24 03:17 | XMS_ITS | Continuity of Care Document ---
Author Organization [facility] Gopi Jose lt Address [address] [place] [address]- Care Team Providers Care Marine Engine Mechanic Name Role Phone Rc CORDERO, Mick Clay Primary Care Physician Encounter [facility] Date(s): 04/19/24 - 05/19/24 [facility] Gopi Adult [address] [place] [address]- Allergies, Adverse Reactions, Alerts Substance Reaction Severity [...] Refusal Reason influenza virus vaccine, inactivated 1 05/01/24 Gi kaylyn influenza virus vaccine, inactivated 2 05/12/22 Gi kaylyn influenza virus vaccine, inactivated 07/02/21 Pipo rded influenza virus vaccine, inactivated 05/17/20 Pipo rded influenza virus vaccine, inactivated 05/01/19 Give n influenza virus vaccine, inactivated 05/15/18 Pipo rded influenza virus vaccine, inactivated 05/14/18 Pipo rded SARS-CoV-2 (COVID-19) mRNA-1273 vaccine 07/02/21 R ecorded SARS-CoV-2 (COVID-19) mRNA BNT-162b2 vac 09/23/20 Given SARS-CoV-2 (COVID-19) mRNA BNT-162b2 vac 09/02/20 Given pneumococcal 23-valent vaccine 3 07/23/11 Recorded pneumococcal 13-valent vaccine 4 07/23/10 Recorded tetanus/diphtheria/pertussis, acel(Tdap) 5 07/23/08 Recorded tetanus-diphtheria toxoids (Td) 6 07/23/96 Recorde d 1Result Comment: [facility]: [id number]. Screening Checklist reviewed with patient. Negative for any contraindications. 2Result Comment: [id number] 3Location History: DR LOAIZA 4Location History: DR LOAIZA 5Location History: DR LOAIZA 6Location History: DR LOAIZA Medications atorvastatin 40 mg oral tablet 1 tablet, By Mouth, Daily at bedtime, # 90 tablet, 1 Refills, Maintenance, 10/30/23 9:30:00 EDT, [id number], 157, cm, 10/26/23 13:58:00 EDT, Height, 94.3, kg, 01/19/22 4:25:00 EDT, Dry Weight Start Date: 10/30/23 Status: Ordered azaTHIOprine 50 mg oral tablet 50 mg, 1, tablet, By Mouth, Daily, TAKE 2 TABLETS ( 100MG ) BY MOUTH DAILY. Start Date: 06/22/23 Status: Ordered budesonide 3 mg oral delayed release capsule 3 capsule = 9 mg, By Mouth, Daily in AM, 0 Refills, Maintenance, 03/21/23 14:39:00 EDT, Partial fill upon patient request if the prescription is for a schedule II opioid drug. Start Date: 03/21/23 Status: Ordered duloxetine 20 mg oral enteric coated capsule 1 capsule, By Mouth, Daily at bedtime, # 90 capsule, 3 Refills, Maintenance, 09/26/23 5:28:00 EST, [facility], 157, cm, 09/18/23 11:23:00 EST, Height, 94.3, kg, 01/19/22 4:25:00 EDT, Dry Weight Start Date: 09/26/23 Status: Ordered Eliquis 5 mg oral tablet 1 tablet, By Mouth, 2 times a day, # 180 tablet, 3 Refills, Maintenance, 06/15/23 1:44:00 EST, [facility], 157, cm, 05/31/23 6:38:00 EST, Height, 94.3, kg, 01/19/22 4:25:00 EDT, Dry Weight Start Date: 06/15/23 Status: Ordered furosemide 40 mg oral tablet 40 mg, 1, tablet, By Mouth, Daily, Hold for SBP less than 90, # 30 tablet, Refills 5, Tot. Refills 5, Maintenance, 05/01/24 12:18:00 EDT, Route to Pharmacy Electronically, [facility]/pharmacy #[id number], Partialfill upon patient request if the prescription is fo... Start Date: 05/01/24 Status: Ordered isosorbide mononitrate 30 mg oral tablet, extended release 30 mg, 1, tablet, By Mouth, 2 times a day, Hold for SBP less than 90, Refills 0, Maintenance, 05/01/24 11:15:00 EDT, Partial fill upon patient request if the prescription is for a schedule II opioid drug. Start Date: 05/01/24 Status: Ordered magnesium oxide 400 mg oral capsule 1 capsule = 400 mg, By Mouth, Daily, # 75 capsule, 0 Refills, Acute 06/01/24 12:52:00 EST, 05/01/2412:51:00 EDT, Capsule, Partial fill upon patient request if the prescription is for a schedule II opioid drug. Start Date: 05/01/24 Stop Date: 06/01/24 Status: Ordered metoprolol 50 mg oral tablet, extended release 50 mg, 1, tablet, By Mouth, Daily, Hold for pulse less than 60, # 30 tablet, Refills 0, Maintenance, 05/01/24 11:18:00 EDT, Partial fill upon patient request if the prescription is for a schedule II opioid drug. Start Date: 05/01/24 Status: Ordered Metoprolol Succinate ER 25 mg oral tablet, extended release 1 tablet, By Mouth, Daily, # 30 tablet, 5 Refills, Maintenance, 01/17/24 7:34:00 EDT, [facility], 157, cm, 11/13/23 16:25:00 EDT, Height, 94.3, kg, 01/19/22 4:25:00 EDT, Dry Weight Start Date: 01/17/24 Status: Ordered nitroglycerin 0.4 mg sublingual tablet 1 tablet = 0.4 mg, Sublingual, Every 5 minutes, PRN as needed for chest pain, not to exceed 3 doses/15 min--if pain persists, seek medical attention, # 100 tablet, 0 Refills, Maintenance, 12/19/22 9:51:00 EDT, Tablet, [facility]/pharmacy #[id number], Partial fill... Start Date: 12/19/22 Status: Ordered oxyCODONE 5 mg oral tablet 5 mg, 1, tablet, By Mouth, Daily, PRN, # 28 tablet, Refills 0, Tot. Refills 0, Acute 05/29/24 12:30:00 EST, Pain , Severe, 05/01/24 12:17:00 EDT, Route to Pharmacy Electronically, [facility]/pharmacy #[id number],Partial fill upon patient request if the prescripti... Start Date: 05/01/24 Stop Date: 05/29/24 Status: Ordered rOPINIRole 0.5 mg oral tablet 1 tablet, By Mouth, 4 times a day, # 360 tablet, 1 Refills, Maintenance, 04/19/24 15:32:00 EDT, [facility], 157, cm, 02/06/24 11:09:00 EDT, Height Start Date: 04/19/24 Status: Ordered rOPINIRole 1 mg oral tablet 1 tablet = 1 mg, By Mouth, Daily at bedtime, 0 Refills, Maintenance, 05/01/24 11:20:00 EDT, Partialfill upon patient request if the prescription is for a schedule II opioid drug. Start Date: 05/01/24 Status: Ordered spironolactone 25 mg oral tablet 25 mg, 1, tablet, By Mouth, 2 times a day, # 180 tablet, Refills 3, Tot. Refills 3, Maintenance, 08/27/23 12:45:00 EST, Route to Pharmacy Electronically, [facility]/pharmacy #[id number], Partial fill upon patientrequest if the prescription is for a schedule II op... Start Date: 08/27/23 Stop Date: 08/21/24 Status: Ordered Problem List Condition Confirmation Course [...] Team Personnel Name: Estrellita Putnam RN [facility] Tatum MD Position: [facility] Physician - Primary Care Member Role: PCP Address: Address: [address] [place] [address]- [place] Name: Svitlana Clark RN Position: [facility] RN Member Role: Primary Care Nurse Name: Yoana Guevara RN Position: [facility] RN Member Role: Primary Care Nurse Name: Pierre Groves RN Position: [facility] RN Member Role: Primary Care Nurse Name: Carmen Murphy NP Position: [facility] PCO Associate Professional Member Role: Primary Care Nurse Address: Address: [address] [place] [address]- [place] Name: Rylie Ordonez RN Position: [facility] RN Member Role: Primary Care Nurse Name: Marisa Negrete RN Position: [facility] AMB Nurse Member Role: Primary Care Nurse Name: Aditi Brown RN Position: [facility] Onco RN Member Role: Primary Care Nurse Name: Chana Cazares RN Position: [facility] RN Member Role: Primary Care Nurse Name: Toshia Urbina RN Position: [facility] RN Member Role: Primary Care Nurse Name: Isabel Gray Position: [facility] MA Shearing Machine Operator Member Role: Shell Core And Molding Supervisor Name: Aniyah Sloan RN Position: [facility] SN RN Member Role: Primary Care Nurse Name: Rosemary Ramon RN Position: [facility] OB RN Member Role: Primary Care Nurse Name: Sneha Newton RN Position: [facility] Hospital Project Engineering Director Member Role: Primary Care Nurse Care Team Related Persons Name: CLAUDIA URBINA Address: [address] [place] [address] Name: PRINCESS RALPH Address: [address] [place] [address] Name: DONY CARCAMO Address: [address] [place] [address]
--- OUTSIDE RECORDS SUMMARY | 2024-05-24 03:17 | XMS_ITS | Continuity of Care Document ---
Author Organization [facility] Gopi Jose lt Address [address] [place] [address]- Care Team Providers Care Corn Cutter Operator Name Role Phone Mick Tatum MD Primary Care Physician Encounter [facility] Date(s): 01/16/24 - 02/29/24 [facility] Ugo Nguyễn Adult [address] [place] [address]- Attending Physician: Mick Tatum MD Allergies, Adverse Reactions, Alerts Substance Reaction Severity Status amoxicillin 1 Active Contrast Dye Active Other Environmental Allergy 2 Active Benadryl Shaking Active Cats Active Dust Active egg-containing compound [...] (Td) 5 07/23/96 Recorde d 1Result Comment: [id number] 2Location History: DR LOAIZA 3Location History: DR LOAIZA 4Location History: DR LOAIZA 5Location History: DR LOAIZA Medications atorvastatin 40 mg oral tablet 1 tablet, By Mouth, Daily at bedtime, # 90 tablet, 1 Refills, Maintenance, 10/30/23 9:30:00 EDT, [facility], 157, cm, 10/26/23 13:58:00 EDT, Height, 94.3, [...] Gm, 1 Refills, Maintenance, 06/29/23 16:21:00 EST, [facility]/pharmacy #[id number], Partial safia... Start Date: 06/29/23 Status: Ordered duloxetine 20 mg oral enteric coated capsule 1 capsule, By Mouth, Daily at bedtime, # 90 capsule, 3 Refills, Maintenance, 09/26/23 5:28:00 EST, [facility], 157, cm, 09/18/23 11:23:00 EST, Height, 94.3, kg, 01/19/22 4:25:00 EDT, Dry Weight Start Date: 09/26/23 Status: Ordered Eliquis 5 mg oral tablet 1 tablet, By Mouth, 2 times a day, # 180 tablet, 3 Refills, Maintenance, 06/15/23 1:44:00 EST, [facility], 157, cm, 05/31/23 6:38:00 EST, Height, 94.3, kg, 01/19/22 4:25:00 EDT, Dry Weight Start Date: 06/15/23 Status: Ordered isosorbide mononitrate 60 mg oral tablet, extended release 1 tablet, By Mouth, 2 times a day, # 180 tablet, 3 Refills, Maintenance, 06/13/23 8:27:00 EST, [facility], 157, cm, 05/31/23 6:38:00 EST, Height, 94.3, kg, 01/19/22 4:25:00 EDT, Dry Weight Start Date: 06/13/23 Status: Ordered Jardiance 10 mg oral tablet 1 tablet, By Mouth, Daily in AM, # 90 tablet, 3 Refills, Maintenance, 06/04/23 8:09:00 EST, [facility], 157, cm, 05/31/23 6:38:00 EST, Height, 94.3, kg, 01/19/22 4:25:00 EDT, Dry Weight Start Date: 06/04/23 Stop Date: 09/02/23 Status: Ordered Metoprolol Succinate ER 25 mg oral tablet, extended release 1 tablet, By Mouth, Daily, # 30 tablet, 5 Refills, Maintenance, 01/17/24 7:34:00 EDT, [facility], 157, cm, 11/13/23 16:25:00 EDT, Height, 94.3, [...] 06/28/23 12:35:00 EST, Route to Pharmacy Electronically, [facility] [...] tablet, 1 Refills, Maintenance, 09/17/23 7:52:00 EST, [facility], 157, cm, 08/14/23 10:05:00 EST, Height, 94.3, kg, 01/19/22 4:25:00 EDT, Dry Weight Start Date: 09/17/23 Status: Ordered spironolactone 25 mg oral tablet 25 mg, 1, tablet, By Mouth, 2 times a day, # 180 tablet, Refills 3, Tot. Refills 3, Maintenance, 08/27/23 12:45:00 EST, Route to Pharmacy Electronically, [facility]/pharmacy #[id number], Partial fill upon patientrequest if the prescription is for a schedule II op... Start Date: 08/27/23 Stop Date: 08/21/24 Status: Ordered torsemide 20 mg oral tablet 2 tablet, By Mouth, Daily, # 180 tablet, 3 Refills, Maintenance, 08/13/23 9:50:00 EST, [facility], 157, cm, 06/27/23 16:10:00 EST, Height, 94.3, [...] Team Personnel Name: Estrellita Putnam RN Position: [facility] RN Member Role: Primary Care Nurse Name: Marlen Kenny RN Position: [facility] RN Member Role: Primary Care Nurse Name: Toshia Muhammad RN Position: [facility] RN Martha Member Role: Primary Care Nurse Name: Suleman Jones RN Position: [facility] RN Member Role: Primary Care Nurse Name: Kathy Medina RN Position: [facility] RN Member Role: Primary Care Nurse Name: Marguerite Wang RN Position: [facility] RN Member Role: Primary Care Nurse Name: Mick Tatum MD Position: [facility] Physician - Primary Care Member Role: PCP Address: Address: [address] [place] [address]- [place] Name: Svitlana Clark RN Position: [facility] RN Member Role: Primary Care Nurse Name: Yoana Guevara RN Position: [facility] RN Member Role: Primary Care Nurse Name: Pierre Groves RN Position: [facility] RN Member Role: Primary Care Nurse Name: Carmen Murphy NP Position: [facility] PCO Associate Professional Member Role: Primary Care Nurse Address: Address: [address] [place] [address]- [place] Name: Rylie Ordonez RN Position: [facility] RN Member Role: Primary Care Nurse Name: Marisa Negrete RN Position: [facility] AMB Nurse Member Role: Primary Care Nurse Name: Aditi Brown RN Position: [facility] Onco RN Member Role: Primary Care Nurse Name: Chana Cazares RN Position: [facility] RN Member Role: Primary Care Nurse Name: Toshia Urbina RN Position: [facility] RN Member Role: Primary Care Nurse Name: Isabel Gray Position: [facility] MA De Icer Finisher Member Role: Spearer Name: Aniyah Sloan RN Position: [facility] SN RN Member Role: Primary Care Nurse Name: Rosemary Ramon RN Position: [facility] OB RN Member Role: Primary Care Nurse Name: Sneha Newton RN Position: [facility] Investigation Specialist Member Role: Primary Care Nurse Care Team Related Persons Name: CLAUDIA URBINA Address: [address] [place] [address] Name: PRINCESS RALPH Address: [address] [place] [address] Name: DONY CARCAMO Address: [address] [place] [address]
--- OUTSIDE RECORDS SUMMARY | 2024-05-24 03:19 | XMS_ITS | Continuity of Care Document ---
Author Organization [facility] Gopi Jose lt Address [address] [place] [address]- Care Team Providers Care Patternmaker All Around Name Role Phone Mick Tatum MD Primary Care Physician [phone] Encounter [facility] Date(s): 04/07/24 - 05/07/24 [facility] Ugo Nguy[facility]n Adult [address] [place] [address]- Allergies, Adverse Reactions, Alerts Substance Reaction Severity [...] (Td) 6 07/23/96 Recorde d 1Result Comment: [facility]: [id number]. Screening Checklist reviewed with patient. Negative for any contraindications. 2Result Comment: [id number] 3Location History: DR LOAIZA 4Location History: DR LOAIZA 5Location History: DR LOAIZA 6Location History: DR LOAIZA Medications atorvastatin 40 mg oral tablet 1 tablet, By Mouth, Daily at bedtime, # 90 tablet, 1 Refills, Maintenance, 10/30/23 9:30:00 EDT, [facility], 157, cm, 10/26/23 13:58:00 EDT, Height, 94.3, [...] Refills, Maintenance, 09/26/23 5:28:00 EST, [facility], 157, cm, 09/18/23 11:23:00 EST, Height, 94.3, kg, 01/19/22 4:25:00 EDT, Dry Weight Start Date: 09/26/23 Status: Ordered Eliquis 5 mg oral tablet 1 tablet, By Mouth, 2 times a day, # 180 tablet, 3 Refills, Maintenance, 06/15/23 1:44:00 EST, [facility], 157, cm, 05/31/23 6:38:00 EST, Height, 94.3, kg, 01/19/22 4:25:00 EDT, Dry Weight Start Date: 06/15/23 Status: Ordered furosemide 40 mg oral tablet 40 mg, 1, tablet, By Mouth, Daily, Hold for SBP less than 90, # 30 tablet, Refills 5, Tot. Refills 5, Maintenance, 05/01/24 12:18:00 EDT, Route to Pharmacy Electronically, [facility]/pharmacy #[id number], Partialfill upon patient request if the [...] Refills, Maintenance, 01/17/24 7:34:00 EDT, [facility], 157, cm, 11/13/23 16:25:00 EDT, Height, 94.3, kg, 01/19/22 4:25:00 EDT, Dry Weight Start Date: 01/17/24 Status: Ordered nitroglycerin 0.4 mg sublingual tablet 1 tablet = 0.4 mg, Sublingual, Every 5 minutes, PRN as needed for chest pain, not to exceed 3 doses/15 min--if pain persists, seek medical attention, # 100 tablet, 0 Refills, Maintenance, 12/19/22 9:51:00 EDT, Tablet, [facility]/pharmacy #[id number], Partial fill... Start Date: 12/19/22 Status: Ordered oxyCODONE 5 mg oral tablet 5 mg, 1, tablet, By Mouth, Daily, PRN, # 28 tablet, Refills 0, Tot. Refills 0, Acute 05/29/24 12:30:00 EST, Pain , Severe, 05/01/24 12:17:00 EDT, Route to Pharmacy Electronically, [facility]/pharmacy #[id number],Partial fill upon patient request if the prescripti... Start Date: 05/01/24 Stop Date: 05/29/24 Status: Ordered rOPINIRole 0.5 mg oral tablet 1 tablet, By Mouth, 4 times a day, # 360 tablet, 1 Refills, Maintenance, 04/19/24 15:32:00 EDT, [facility], 157, cm, 02/06/24 11:09:00 EDT, Height Start [...] 08/27/23 12:45:00 EST, [facility] [...] Team Personnel Name: Estrellita Putnam RN Position: [facility] RN Member Role: Primary Care Nurse Name: Marlen Kenny RN Position: [facility] RN Member Role: Primary Care Nurse Name: Toshia Muhammad RN Position: [facility] RN Martha Member Role: Primary Care Nurse Name: Suleman Jones RN Position: [facility] RN Member Role: Primary Care Nurse Name: Kathy Medina RN Position: [facility] RN Member Role: Primary Care Nurse Name: Marguerite Wang RN Position: [facility] RN Member Role: Primary Care Nurse Name: Mick Tatum MD Position: [facility] Physician - Primary Care Member Role: PCP Address: Address: [address] [place] [address]- [place] Name: Svitlana Clark RN Position: [facility] RN Member Role: Primary Care Nurse Name: Yoana Guevara RN Position: [facility] RN Member Role: Primary Care Nurse Name: Pierre Groves RN Position: [facility] RN Member Role: Primary Care Nurse Name: Carmen Murphy NP Position: [facility] PCO Associate Professional Member Role: Primary Care Nurse Address: Address: [address] [place] [phone]- [place] Name: Rylie Ordonez RN Position: [facility] RN Member Role: Primary Care Nurse Name: Marisa Negrete RN Position: [facility] AMB Nurse Member Role: Primary Care Nurse Name: Aditi Brown RN Position: [facility] Onco RN Member Role: Primary Care Nurse Name: Chana Cazares RN Position: [facility] RN Member Role: Primary Care Nurse Name: Toshia Urbina RN Position: [facility] RN Member Role: Primary Care Nurse Name: Isabel Gray Position: [facility] [place] Vaccine Key Customer Leader Member Role: Field Representative Name: Aniyah Sloan RN Position: [facility] SN RN Member Role: Primary Care Nurse Name: Rosemary Ramon RN Position: [facility] OB RN Member Role: Primary Care Nurse Name: Sneha Newton RN Position: [facility] Hospital Extractor Puller Member Role: Primary Care Nurse Care Team Related Persons Name: CLAUDIA URBINA Address: [address] [place] [address] Name: PRINCESS RALPH Address: [address] [place] [address] Name: DONY CARCAMO Address: [address] [place] [address]
--- OUTSIDE RECORDS SUMMARY | 2024-05-24 03:19 | XMS_ITS | Continuity of Care Document ---
Author Organization [facility] Gopi Jose lt Address [address] [place] [address]- Care Team Providers Care Depot Manager Name Role Phone Mick Tatum MD Primary Care Physician [phone] [place] [facility] [place] - 05/04/24 [facility] Gopi Adult [address] [place] [address]- Allergies, Adverse Reactions, Alerts Substance Reaction Severity [...] (Td) 6 07/23/96 Recorde d 1Result Comment: [facility]: [id number]. Screening Checklist reviewed with patient. Negative for any contraindications. 2Result Comment: [id number] 3Location History: DR LOAIZA 4Location History: DR LOAIZA 5Location History: DR LOAIZA 6Location History: DR LOAIZA Medications atorvastatin 40 mg oral tablet 1 tablet, By Mouth, Daily at bedtime, # 90 tablet, 1 Refills, Maintenance, 10/30/23 9:30:00 EDT, [facility], 157, cm, 10/26/23 13:58:00 EDT, Height, 94.3, [...] Refills, Maintenance, 09/26/23 5:28:00 EST, [facility], 157, cm, 09/18/23 11:23:00 EST, Height, 94.3, kg, 01/19/22 4:25:00 EDT, Dry Weight Start Date: 09/26/23 Status: Ordered Eliquis 5 mg oral tablet 1 tablet, By Mouth, 2 times a day, # 180 tablet, 3 Refills, Maintenance, 06/15/23 1:44:00 EST, [facility], 157, cm, 05/31/23 6:38:00 EST, Height, 94.3, kg, 01/19/22 4:25:00 EDT, Dry Weight Start Date: 06/15/23 Status: Ordered furosemide 40 mg oral tablet 40 mg, 1, tablet, By Mouth, Daily, Hold for SBP less than 90, # 30 tablet, Refills 5, Tot. Refills 5, Maintenance, 05/01/24 12:18:00 EDT, Route to Pharmacy Electronically, [facility]/pharmacy #[id number], Partialfill upon patient request if the prescription [...] Refills, Maintenance, 01/17/24 7:34:00 EDT, [facility], 157, cm, 11/13/23 16:25:00 EDT, Height, 94.3, kg, 01/19/22 4:25:00 EDT, Dry Weight Start Date: 01/17/24 Status: Ordered nitroglycerin 0.4 mg sublingual tablet 1 tablet = 0.4 mg, Sublingual, Every 5 minutes, PRN as needed for chest pain, not to exceed 3 doses/15 min--if pain persists, seek medical attention, # 100 tablet, 0 Refills, Maintenance, 12/19/22 9:51:00 EDT, Tablet, [facility]/pharmacy #[id number], Partial fill... Start Date: 12/19/22 Status: Ordered oxyCODONE 5 mg oral tablet 5 mg, 1, tablet, By Mouth, Daily, PRN, # 28 tablet, Refills 0, Tot. Refills 0, Acute 05/29/24 12:30:00 EST, Pain , Severe, 05/01/24 12:17:00 EDT, Route to Pharmacy Electronically, [facility]/pharmacy #[id number],Partial fill upon patient request if the prescripti... Start Date: 05/01/24 Stop Date: 05/29/24 Status: Ordered rOPINIRole 0.5 mg oral tablet 1 tablet, By Mouth, 4 times a day, # 360 tablet, 1 Refills, Maintenance, 04/19/24 15:32:00 EDT, [facility], 157, cm, 02/06/24 11:09:00 EDT, Height Start [...] 12:45:00 EST, Route to Pharmacy Electronically, [facility]/pharmacy #[id number], Partial fill upon patientrequest if the [...] Team Personnel Name: Estrellita Putnam RN Position: [facility] RN Member Role: Primary Care Nurse Name: Marlen Kenny RN Position: [facility] RN Member Role: Primary Care Nurse Name: Toshia Muhammad RN Position: [facility] RN Martha Member Role: Primary Care Nurse Name: Suleman Jones RN Position: [facility] RN Member Role: Primary Care Nurse Name: Kathy Medina RN Position: [facility] RN Member Role: Primary Care Nurse Name: Marguerite Wang RN Position: [facility] RN Member Role: Primary Care Nurse Name: Mick Tatum MD Position: [facility] Physician - Primary Care Member Role: PCP Address: Address: [address] [place] [address]- [place] Name: Svitlana Clark RN Position: [facility] RN Member Role: Primary Care Nurse Name: Yoana Guevara RN Position: [facility] RN Member Role: Primary Care Nurse Name: Pierre Groves RN Position: [facility] RN Member Role: Primary Care Nurse Name: Carmen Murphy NP Position: [facility] PCO Associate Professional Member Role: Primary Care Nurse Address: Address: [address] [place] [phone]- [place] Name: Rylie Ordonez RN Position: [facility] RN Member Role: Primary Care Nurse Name: Marisa Negrete RN Position: [facility] AMB Nurse Member Role: Primary Care Nurse Name: Aditi Brown RN Position: [facility] Onco RN Member Role: Primary Care Nurse Name: Chana Cazares RN Position: [facility] RN Member Role: Primary Care Nurse Name: Toshia Urbina RN Position: [facility] RN Member Role: Primary Care Nurse Name: Isabel Gray Position: [facility] MA Can Cutter Member Role: Parachute Repairer Name: Aniyah Sloan RN Position: [facility] SN RN Member Role: Primary Care Nurse Name: Rosemary Ramon RN Position: [facility] OB RN Member Role: Primary Care Nurse Name: Sneha Newton RN Position: [facility] Psych Social Worker Member Role: Primary Care Nurse Care Team Related Persons Name: CLAUDIA URBINA Address: [address] [place] [address] Name: RALPH SÁNCHEZ Address: [address] [place] [address] Name: DONY CARCAMO Address: [address] [place] [address]
--- OUTSIDE RECORDS SUMMARY | 2024-05-24 03:20 | XMS_ITS | Continuity of Care Document ---
Author Organization [facility] Gopi Jose lt Address [address] [place] [address]- Care Team Providers Care Marble Ceiling Installer Name Role Phone Rc CORDERO, Mick Caly Primary Care Physician [phone] Encounter [facility] [place] Date(s): 01/16/24 - 02/15/24 [facility] Gopi Adult [address] [place] [address]- Allergies, Adverse Reactions, Alerts Substance Reaction Severity [...] toxoids (Td) 5 07/23/96 Augiemin Bingham Comment: [id number] 2Location History: DR LOAIZA 3Location History: DR LOAIZA 4Location History: DR LOAIZA 5Location History: DR LOAIZA Medications atorvastatin 40 mg oral tablet 1 tablet, By Mouth, Daily at bedtime, # 90 tablet, 1 Refills, Maintenance, 10/30/23 9:30:00 EDT, [facility], 157, cm, 10/26/23 13:58:00 EDT, Height, 94.3, [...] Gm, 1 Refills, Maintenance, 06/29/23 16:21:00 EST, [facility]/pharmacy #[id number], Partial safia... Start Date: 06/29/23 Status: Ordered duloxetine 20 mg oral enteric coated capsule 1 capsule, By Mouth, Daily at bedtime, # 90 capsule, 3 Refills, Maintenance, 09/26/23 5:28:00 EST, [facility], 157, cm, 09/18/23 11:23:00 EST, Height, 94.3, kg, 01/19/22 4:25:00 EDT, Dry Weight Start Date: 09/26/23 Status: Ordered Eliquis 5 mg oral tablet 1 tablet, By Mouth, 2 times a day, # 180 tablet, 3 Refills, Maintenance, 06/15/23 1:44:00 EST, [facility], 157, cm, 05/31/23 6:38:00 EST, Height, 94.3, kg, 01/19/22 4:25:00 EDT, Dry Weight Start Date: 06/15/23 Status: Ordered isosorbide mononitrate 60 mg oral tablet, extended release 1 tablet, By Mouth, 2 times a day, # 180 tablet, 3 Refills, Maintenance, 06/13/23 8:27:00 EST, [facility], 157, cm, 05/31/23 6:38:00 EST, Height, 94.3, kg, 01/19/22 4:25:00 EDT, Dry Weight Start Date: 06/13/23 Status: Ordered Jardiance 10 mg oral tablet 1 tablet, By Mouth, Daily in AM, # 90 tablet, 3 Refills, Maintenance, 06/04/23 8:09:00 EST, [facility], 157, cm, 05/31/23 6:38:00 EST, Height, 94.3, kg, 01/19/22 4:25:00 EDT, Dry Weight Start Date: 06/04/23 Stop Date: 09/02/23 Status: Ordered Metoprolol Succinate ER 25 mg oral tablet, extended release 1 tablet, By Mouth, Daily, # 30 tablet, 5 Refills, Maintenance, 01/17/24 7:34:00 EDT, [facility], 157, cm, 11/13/23 16:25:00 EDT, Height, 94.3, [...] 06/28/23 12:35:00 EST, [facility] Pharmacy Electronically, [facility] [...] tablet, 1 Refills, Maintenance, 09/17/23 7:52:00 EST, [facility], 157, cm, 08/14/23 10:05:00 EST, Height, 94.3, [...] tablet, 3 Refills, Maintenance, 08/13/23 9:50:00 EST, [facility], 157, cm, 06/27/23 16:10:00 EST, Height, 94.3, [...] Team Personnel Name: Estrellita Putnam RN Position: [facility] RN Member Role: Primary Care Nurse Name: Marlen Kenny RN Position: [facility] RN Member Role: Primary Care Nurse Name: Toshia Muhammad RN Position: [facility] RN Martha Member Role: Primary Care Nurse Name: Suleman Jones RN Position: [facility] RN Member Role: Primary Care Nurse Name: Kathy Medina RN Position: [facility] RN Member Role: Primary Care Nurse Name: Marguerite Wang RN Position: [facility] RN Member Role: Primary Care Nurse Name: Mick Tatum MD Position: [facility] Physician - Primary Care Member Role: PCP Address: Address: [address] [place] [address]- [place] Name: Svitlana Clark RN Position: [facility] RN Member Role: Primary Care Nurse Name: Yoana Guevara RN Position: [facility] RN Member Role: Primary Care Nurse Name: Pierre Groves RN Position: [facility] RN Member Role: Primary Care Nurse Name: Carmen Murphy NP Position: [facility] PCO Associate Professional Member Role: Primary Care Nurse Address: Address: [address] [place] [phone]- [place] Name: Rylie Ordonez RN Position: [facility] RN Member Role: Primary Care Nurse Name: Marisa Negrete RN Position: [facility] AMB Nurse Member Role: Primary Care Nurse Name: Aditi Brown RN Position: [facility] Onco RN Member Role: Primary Care Nurse Name: Chana Cazares RN Position: [facility] RN Member Role: Primary Care Nurse Name: Toshia Urbina RN Position: [facility] RN Member Role: Primary Care Nurse Name: Isabel Gray Position: [facility] MA Mercerizing Range Controller Member Role: Stenciler Name: Aniyah Sloan RN Position: [facility] SN RN Member Role: Primary Care Nurse Name: Rosemary Ramon RN Position: [facility] OB RN Member Role: Primary Care Nurse Name: Sneha Newton RN Position: [facility] Distributor Operator Member Role: Primary Care Nurse Care Team Related Persons Name: CLAUDIA URBINA Address: [address] [place] [address] Name: RALPH SÁNCHEZ Address: [address] [place] [address] Name: DONY CARCAMO Address: [address] [place] [address]
--- OUTSIDE RECORDS SUMMARY | 2024-05-24 03:20 | XMS_ITS | Continuity of Care Document ---
Author Organization [facility] Address [address] [place] [address]- Care Team Providers Care Supervisor Crack Off Name Role Phone Mick Tatum MD Primary Care Physician En[place] [facility] [place](s): 01/14/24 - 02/13/24 [facility] [address] [place] [id number]- Attending Physician: Julia Haile Admitting Physician: Julia [...] 5 07/23/96 Recorde juan pablo 1Result Comment: [id number] 2Location History: DR LOAIZA 3Location History: DR LOAIZA 4Location History: DR LOAIZA 5Location History: DR LOIAZA Medications atorvastatin 40 mg oral tablet 1 tablet, By Mouth, Daily at bedtime, # 90 tablet, 1 Refills, Maintenance, 10/30/23 9:30:00 EDT, [facility], 157, cm, 10/26/23 13:58:00 EDT, Height, 94.3, [...] Refills, Maintenance, 06/29/23 16:21:00 EST, [facility]/pharmacy #[id number], Partial safia... Start Date: 06/29/23 Status: Ordered duloxetine 20 mg oral enteric coated capsule 1 capsule, By Mouth, Daily at bedtime, # 90 capsule, 3 Refills, Maintenance, 09/26/23 5:28:00 EST, [facility], 157, cm, 09/18/23 11:23:00 EST, Height, 94.3, kg, 01/19/22 4:25:00 EDT, Dry Weight Start Date: 09/26/23 Status: Ordered Eliquis 5 mg oral tablet 1 tablet, By Mouth, 2 times a day, # 180 tablet, 3 Refills, Maintenance, 06/15/23 1:44:00 EST, [facility], 157, cm, 05/31/23 6:38:00 EST, Height, 94.3, kg, 01/19/22 4:25:00 EDT, Dry Weight Start Date: 06/15/23 Status: Ordered isosorbide mononitrate 60 mg oral tablet, extended release 1 tablet, By Mouth, 2 times a day, # 180 tablet, 3 Refills, Maintenance, 06/13/23 8:27:00 EST, [facility], 157, cm, 05/31/23 6:38:00 EST, Height, 94.3, kg, 01/19/22 4:25:00 EDT, Dry Weight Start Date: 06/13/23 Status: Ordered Jardiance 10 mg oral tablet 1 tablet, By Mouth, Daily in AM, # 90 tablet, 3 Refills, Maintenance, 06/04/23 8:09:00 EST, [facility], 157, cm, 05/31/23 6:38:00 EST, Height, 94.3, kg, 01/19/22 4:25:00 EDT, Dry Weight Start Date: 06/04/23 Stop Date: 09/02/23 Status: Ordered Metoprolol Succinate ER 25 mg oral tablet, extended release 1 tablet, By Mouth, Daily, # 30 tablet, 5 Refills, Maintenance, 01/17/24 7:34:00 EDT, [facility], 157, cm, 11/13/23 16:25:00 EDT, Height, 94.3, kg, 01/19/22 4:25:00 EDT, Dry Weight Start Date: 01/17/24 Status: Ordered nitroglycerin 0.4 mg sublingual tablet 1 tablet = 0.4 mg, Sublingual, Every 5 minutes, PRN as needed for chest pain, not to exceed 3 doses/15 min--if pain persists, seek medical attention, # 100 tablet, 0 Refills, Maintenance, 12/19/22 9:51:00 EDT, Tablet, [facility]/pharmacy #[id number], Partial fill... Start Date: 12/19/22 [...] tablet, 1 Refills, Maintenance, 09/17/23 7:52:00 EST, [facility], 157, cm, 08/14/23 10:05:00 EST, Height, 94.3, kg, 01/19/22 4:25:00 EDT, Dry Weight Start Date: 09/17/23 Status: Ordered spironolactone 25 mg oral tablet 25 mg, 1, tablet, By Mouth, 2 times a day, # 180 tablet, Refills 3, Tot. Refills 3, Maintenance, 08/27/23 12:45:00 EST, Route to Pharmacy Electronically, [facility]/pharmacy #[id number], Partial fill upon patientrequest if the prescription is for a schedule II op... Start Date: 08/27/23 Stop Date: 08/21/24 Status: Ordered torsemide 20 mg oral tablet 2 tablet, By Mouth, Daily, # 180 tablet, 3 Refills, Maintenance, 08/13/23 9:50:00 EST, [facility], 157, cm, 06/27/23 16:10:00 EST, Height, 94.3, [...] Team Personnel Name: Estrellita Putnam RN Position: [facility] RN Member Role: Primary Care Nurse Name: Marlen Kenny RN Position: [facility] RN Member Role: Primary Care Nurse Name: Toshia Muhammad RN Position: [facility] RN Martha Member Role: Primary Care Nurse Name: Suleman Jones RN Position: [facility] RN Member Role: Primary Care Nurse Name: Kathy Medina RN Position: [facility] RN Member Role: Primary Care Nurse Name: Marguerite Wang RN Position: [facility] RN Member Role: Primary Care Nurse Name: Mick Tatum MD Position: [facility] Physician - Primary Care Member Role: PCP Address: Address: [address] [place] [address]- [place] Name: Svitlana Clark RN Position: [facility] RN Member Role: Primary Care Nurse Name: Yoana Guevara RN Position: [facility] RN Member Role: Primary Care Nurse Name: Pierre Groves RN Position: [facility] RN Member Role: Primary Care Nurse Name: Carmen Murphy NP Position: [facility] PCO Associate Professional Member Role: Primary Care Nurse Address: Address: [address] [place] [address]- [place] Name: Rylie Ordonez RN Position: [facility] RN Member Role: Primary Care Nurse Name: Marisa Negrete RN Position: [facility] AMB Nurse Member Role: Primary Care Nurse Name: Aditi Brown RN Position: [facility] Onco RN Member Role: Primary Care Nurse Name: Chana Cazares RN Position: [facility] RN Member Role: Primary Care Nurse Name: Toshia Urbina RN Position: [facility] RN Member Role: Primary Care Nurse Name: Isabel Gray Position: [facility] MA Business Center Manager Member Role: University Intern Name: Aniyah Sloan RN Position: [facility] SN RN Member Role: Primary Care Nurse Name: Rosemary Ramon RN Position: [facility] OB RN Member Role: Primary Care Nurse Name: Sneha Newton RN Position: [facility] Hospital Vest Finisher Member Role: Primary Care Nurse Care Team Related Persons Name: CLAUDIA URBINA Address: [address] [address] Name: RALPH SÁNCHEZ Address: [address] [place] [address] Name: DONY CARCAMO Address: [address] [place] [address]
--- OUTSIDE RECORDS SUMMARY | 2024-05-24 03:20 | XMS_ITS | Continuity of Care Document ---
Author Organization [facility] Gopi Jose lt Address [address] [place] [address]- Care Team Providers Care Day Porter Name Role Phone Mick Tatum MD Primary Care Physician Encounter [facility] [place] Date(s): 04/11/24 - 05/11/24 [facility] Adult [address] [place] [address]- Allergies, Adverse Reactions, Alerts Substance Reaction Severity [...] (Td) 6 07/23/96 Recorde d 1Result Comment: [facility]: [id number]. Screening Checklist reviewed with patient. Negative for any contraindications. 2Result Comment: [id number] 3Location History: DR LOAIZA 4Location History: DR LOAIZA 5Location History: DR LOAIZA 6Location History: DR LOAIZA Medications atorvastatin 40 mg oral tablet 1 tablet, By Mouth, Daily at bedtime, # 90 tablet, 1 Refills, Maintenance, 10/30/23 9:30:00 EDT, [facility], 157, cm, 10/26/23 13:58:00 EDT, Height, 94.3, [...] Refills, Maintenance, 09/26/23 5:28:00 EST, [facility], 157, cm, 09/18/23 11:23:00 EST, Height, 94.3, kg, 01/19/22 4:25:00 EDT, Dry Weight Start Date: 09/26/23 Status: Ordered Eliquis 5 mg oral tablet 1 tablet, By Mouth, 2 times a day, # 180 tablet, 3 Refills, Maintenance, 06/15/23 1:44:00 EST, [facility], 157, cm, 05/31/23 6:38:00 EST, Height, 94.3, kg, 01/19/22 4:25:00 EDT, Dry Weight Start Date: 06/15/23 Status: Ordered furosemide 40 mg oral tablet 40 mg, 1, tablet, By Mouth, Daily, Hold for SBP less than 90, # 30 tablet, Refills 5, Tot. Refills 5, Maintenance, 05/01/24 12:18:00 EDT, Route to Pharmacy Electronically, [facility]/pharmacy #[id number], Partialfill upon patient request if the [...] Refills, Maintenance, 01/17/24 7:34:00 EDT, [facility], 157, cm, 11/13/23 16:25:00 EDT, Height, 94.3, kg, 01/19/22 4:25:00 EDT, Dry Weight Start Date: 01/17/24 Status: Ordered nitroglycerin 0.4 mg sublingual tablet 1 tablet = 0.4 mg, Sublingual, Every 5 minutes, PRN as needed for chest pain, not to exceed 3 doses/15 min--if pain persists, seek medical attention, # 100 tablet, 0 Refills, Maintenance, 12/19/22 9:51:00 EDT, Tablet, [facility]/pharmacy #[id number], Partial fill... Start Date: 12/19/22 Status: Ordered oxyCODONE 5 mg oral tablet 5 mg, 1, tablet, By Mouth, Daily, PRN, # 28 tablet, Refills 0, Tot. Refills 0, Acute 05/29/24 12:30:00 EST, Pain , Severe, 05/01/24 12:17:00 EDT, Route to Pharmacy Electronically, [facility]/pharmacy #[id number],Partial fill upon patient request if the prescripti... Start Date: 05/01/24 Stop Date: 05/29/24 Status: Ordered rOPINIRole 0.5 mg oral tablet 1 tablet, By Mouth, 4 times a day, # 360 tablet, 1 Refills, Maintenance, 04/19/24 15:32:00 EDT, [facility], 157, cm, 02/06/24 11:09:00 EDT, Height Start [...] 08/27/23 12:45:00 EST, Route to Pharmacy Electronically, [facility]/pharmacy #[id number], Partial fill upon patientrequest if the [...] Team Personnel Name: Estrellita Putnam RN [facility] RN Member Role: Primary Care Nurse Name: Marlen Kenny RN Position: [facility] RN Member Role: Primary Care Nurse Name: Toshia Muhammad RN Position: [facility] RN Martha Member Role: Primary [...] Care Member Role: PCP Address: Address: [address] [place] [phone]- [place] Name: Svitlana Clark RN Position: [facility] RN Member Role: Primary Care Nurse Name: Yoana Guevara RN Position: [facility] RN Member Role: Primary Care Nurse Name: Pierre Groves RN Position: [facility] RN Member Role: Primary Care Nurse Name: Carmen Murphy NP Position: [facility] PCO Associate Professional Member Role: Primary Care Nurse Address: Address: [address] [place] [phone]- [place] Name: Rylie Ordonez RN Position: [facility] RN Member Role: Primary Care Nurse Name: Marisa Negrete RN Position: [facility] AMB Nurse Member Role: Primary Care Nurse Name: Adtii Brown RN Position: [facility] Onco RN Member Role: Primary Care Nurse Name: Chana Cazares RN Position: [facility] RN Member Role: Primary Care Nurse Name: Toshia Urbina RN Position: [facility] RN Member Role: Primary Care Nurse Name: Isabel Gray Position: [facility] [place] Newspaper Reporter Member Role: Medical Appointment Scheduler Name: Aniyah Sloan RN Position: [facility] SN RN Member Role: Primary Care Nurse Name: Rosemary Ramon RN Position: [facility] OB RN Member Role: Primary Care Nurse Name: Sneha Newton RN Position: [facility] Hospital Spa Director/Finance Member Role: Primary Care Nurse Care Team Related Persons Name: CLAUDIA URBINA Address: [address] [place] [address] Name: RALPH SÁNCEHZ Address: [address] [place] [address] Name: DONY CARCAMO Address: [address] [place] [address]
--- OUTSIDE RECORDS SUMMARY | 2024-05-24 03:20 | XMS_ITS | Continuity of Care Document ---
Author Organization [facility] Gopi Jose lt Address [address] [place] [address]- Care Team Providers Care Sanitation Tank Washer Name Role Phone Rc CORDERO, Mick Clay Primary Care Physician Encounter [facility] [place] Date(s): 01/29/24 - 02/28/24 [facility] [address] [place] [address]- Allergies, Adverse Reactions, Alerts Substance Reaction Severity [...] toxoids (Td) 5 07/23/96 Augiemin Bingham Comment: [id number] 2Location History: DR LOAIZA 3Location History: DR LOAIZA 4Location History: DR LOAIZA 5Location History: DR LOAIZA Medications atorvastatin 40 mg oral tablet 1 tablet, By Mouth, Daily at bedtime, # 90 tablet, 1 Refills, Maintenance, 10/30/23 9:30:00 EDT, [id number], 157, cm, 10/26/23 13:58:00 EDT, Height, 94.3, [...] Gm, 1 Refills, Maintenance, 06/29/23 16:21:00 EST, [facility]/pharmacy #[id number], Partial safia... Start Date: 06/29/23 Status: Ordered duloxetine 20 mg oral enteric coated capsule 1 capsule, By Mouth, Daily at bedtime, # 90 capsule, 3 Refills, Maintenance, 09/26/23 5:28:00 EST, [facility] 43159, 157, cm, 09/18/23 11:23:00 EST, Height, 94.3, kg, 01/19/22 4:25:00 EDT, Dry Weight Start Date: 09/26/23 Status: Ordered Eliquis 5 mg oral tablet 1 tablet, By Mouth, 2 times a day, # 180 tablet, 3 Refills, Maintenance, 06/15/23 1:44:00 EST, [facility] 0[facility]26, 157, cm, 05/31/23 6:38:00 EST, Height, 94.3, kg, 01/19/22 4:25:00 EDT, Dry Weight Start Date: 06/15/23 Status: Ordered isosorbide mononitrate 60 mg oral tablet, extended release 1 tablet, By Mouth, 2 times a day, # 180 tablet, 3 Refills, Maintenance, 06/13/23 8:27:00 EST, [facility] [id number], 157, cm, 05/31/23 6:38:00 EST, Height, 94.3, kg, 01/19/22 4:25:00 EDT, Dry Weight Start Date: 06/13/23 Status: Ordered Jardiance 10 mg oral tablet 1 tablet, By Mouth, Daily in AM, # 90 tablet, 3 Refills, Maintenance, 06/04/23 8:09:00 EST, [facility] 23026, 157, cm, 05/31/23 6:38:00 EST, Height, 94.3, kg, 01/19/22 4:25:00 EDT, Dry Weight Start Date: 06/04/23 Stop Date: 09/02/23 Status: Ordered Metoprolol Succinate ER 25 mg oral tablet, extended release 1 tablet, By Mouth, Daily, # 30 tablet, 5 Refills, Maintenance, 01/17/24 7:34:00 EDT, [facility] 03395, 157, cm, 11/13/23 16:25:00 EDT, Height, 94.3, kg, 01/19/22 4:25:00 EDT, Dry Weight Start Date: 01/17/24 Status: Ordered nitroglycerin 0.4 mg sublingual tablet 1 tablet = 0.4 mg, Sublingual, Every 5 minutes, PRN as needed for chest pain, not to exceed 3 doses/15 min--if pain persists, seek medical attention, # 100 tablet, 0 Refills, Maintenance, 12/19/22 9:51:00 EDT, Tablet, [facility]/pharmacy #[id number], Partial fill... Start Date: 12/19/22 Status: Ordered oxyCODONE 5 mg oral tablet 5 mg, 1, tablet, By Mouth, 2 times a day, PRN, # 56 tablet, Refills 0, Tot. Refills 0, Acute 06/28/24 12:36:00 EST, as needed for pain, 06/28/23 12:35:00 EST, Route to Pharmacy Electronically, [facility]/pharmacy #[id number], Partial fill upon patient request if t... Start Date: 06/28/23 Stop Date: 06/28/24 Status: Ordered pantoprazole 40 mg oral delayed release tablet 0 Refills, Maintenance, 03/21/23 14:39:00 EDT Start Date: 03/21/23 Status: Ordered rOPINIRole 0.5 mg oral tablet 1 tablet, By Mouth, 4 times a day, # 360 tablet, 1 Refills, Maintenance, 09/17/23 7:52:00 EST, [facility] 48[facility], 157, cm, 08/14/23 10:05:00 EST, Height, 94.3, kg, 01/19/22 4:25:00 EDT, Dry Weight Start Date: 09/17/23 Status: Ordered spironolactone 25 mg oral tablet 25 mg, 1, tablet, By Mouth, 2 times a day, # 180 tablet, Refills 3, Tot. Refills 3, Maintenance, 08/27/23 12:45:00 EST, Route to Pharmacy Electronically, [facility]/pharmacy #[id number], Partial fill upon patientrequest if the prescription is for a schedule II op... Start Date: 08/27/23 Stop Date: 08/21/24 Status: Ordered torsemide 20 mg oral tablet 2 tablet, By Mouth, Daily, # 180 tablet, 3 Refills, Maintenance, 08/13/23 9:50:00 EST, [facility] 250[facility], 157, cm, 06/27/23 16:10:00 EST, Height, 94.3, [...] Team Personnel Name: Estrellita Putnam RN Position: [facility] RN Member Role: Primary Care Nurse Name: Marlen Kenny RN Position: [facility] RN Member Role: Primary Care Nurse Name: Toshia Muhammad RN Position: [facility] RN Martha Member Role: Primary Care Nurse Name: Suleman Jones RN Position: [facility] RN Member Role: Primary Care Nurse Name: Kathy Medina RN Position: [facility] RN Member Role: Primary Care Nurse Name: Marguerite Wang RN Position: [facility] RN Member Role: Primary Care Nurse Name: Mick Tatum MD Position: [facility] Physician - Primary Care Member Role: PCP Address: Address: [address] [place] [id number]- [place] Name: Svitlana Clark RN Position: [facility] RN Member Role: Primary Care Nurse Name: Yoana Guevara RN Position: [facility] RN Member Role: Primary Care Nurse Name: Pierre Groves RN Position: [facility] RN Member Role: Primary Care Nurse Name: Carmen Murphy NP Position: [facility] PCO Associate Professional Member Role: Primary Care Nurse Address: Address: [address] [place] [address]- [place] Name: Rylie Ordonez RN Position: [facility] RN Member Role: Primary Care Nurse Name: Marisa Negrete RN Position: [facility] AMB Nurse Member Role: Primary Care Nurse Name: Aditi Brown RN Position: [facility] Onco RN Member Role: Primary Care Nurse Name: Chana Cazares RN Position: [facility] RN Member Role: Primary Care Nurse Name: Toshia Urbina RN Position: [facility] RN Member Role: Primary Care Nurse Name: Isabel Gray Position: [facility] [place] Payroll Specialist Member Role: Oracle Reports Developer Name: Aniyah Sloan RN Position: [facility] SN RN Member Role: Primary Care Nurse Name: Rosemary Ramon RN Position: [facility] OB RN Member Role: Primary Care Nurse Name: Sneha Newton RN Position: [facility] Airline Hostess Member Role: Primary Care Nurse Care Team Related Persons Name: CLAUDIA URBINA Address: [address] [place] [address] Name: RALPH SÁNCHEZ Address: [address] [place] [address] Name: DONY CARCAMO Address: [address] [place] [address]
--- OUTSIDE RECORDS SUMMARY | 2024-05-24 03:21 | XMS_ITS | Continuity of Care Document ---
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 Name Role Phone Mick Tatum MD Primary Care Physician [phone] [place] [facility] [place]): [place]06[place]24 [place] 02/13/24 [facility] Adult [address] [place] [address]- Encounter Diagnosis Heart failure with preserved ejection fraction(Discharge Diagnosis) - 02/06/24 Attending Physician: Mick Tatum MD Allergies, Adverse [...] (Td) 5 07/23/96 Recorde d 1Result Comment: [id number] 2Location History: DR LOAIZA 3Location History: DR LOAIZA 4Location History: DR LOAIZA 5Location History: DR LOAIZA Medications atorvastatin 40 mg oral tablet 1 tablet, By Mouth, Daily at bedtime, # 90 tablet, 1 Refills, Maintenance, 10/30/23 9:30:00 EDT, [facility], 157, cm, 10/26/23 13:58:00 EDT, Height, 94.3, [...] Gm, 1 Refills, Maintenance, 06/29/23 16:21:00 EST, [facility]/pharmacy #[id number], Partial safia... Start Date: 06/29/23 Status: Ordered duloxetine 20 mg oral enteric coated capsule 1 capsule, By Mouth, Daily at bedtime, # 90 capsule, 3 Refills, Maintenance, 09/26/23 5:28:00 EST, [facility], 157, cm, 09/18/23 11:23:00 EST, Height, 94.3, kg, 01/19/22 4:25:00 EDT, Dry Weight Start Date: 09/26/23 Status: Ordered Eliquis 5 mg oral tablet 1 tablet, By Mouth, 2 times a day, # 180 tablet, 3 Refills, Maintenance, 06/15/23 1:44:00 EST, [facility], 157, cm, 05/31/23 6:38:00 EST, Height, 94.3, kg, 01/19/22 4:25:00 EDT, Dry Weight Start Date: 06/15/23 Status: Ordered isosorbide mononitrate 60 mg oral tablet, extended release 1 tablet, By Mouth, 2 times a day, # 180 tablet, 3 Refills, Maintenance, 06/13/23 8:27:00 EST, [facility] 348[facility], 157, cm, 05/31/23 6:38:00 EST, Height, 94.3, kg, 01/19/22 4:25:00 EDT, Dry Weight Start Date: 06/13/23 Status: Ordered Jardiance 10 mg oral tablet 1 tablet, By Mouth, Daily in AM, # 90 tablet, 3 Refills, Maintenance, 06/04/23 8:09:00 EST, [facility] 02086, 157, cm, 05/31/23 6:38:00 EST, Height, 94.3, kg, 01/19/22 4:25:00 EDT, Dry Weight Start Date: 06/04/23 Stop Date: 09/02/23 Status: Ordered Metoprolol Succinate ER 25 mg oral tablet, extended release 1 tablet, By Mouth, Daily, # 30 tablet, 5 Refills, Maintenance, 01/17/24 7:34:00 EDT, [facility] 92871, 157, cm, 11/13/23 16:25:00 EDT, Height, 94.3, kg, 01/19/22 4:25:00 EDT, Dry Weight Start Date: 01/17/24 Status: Ordered nitroglycerin 0.4 mg sublingual tablet 1 tablet = 0.4 mg, Sublingual, Every 5 minutes, PRN as needed for chest pain, not to exceed 3 doses/15 min--if pain persists, seek medical attention, # 100 tablet, 0 Refills, Maintenance, 12/19/22 9:51:00 EDT, Tablet, [facility]/pharmacy #[id number], Partial fill... Start Date: 12/19/22 Status: Ordered oxyCODONE 5 mg oral tablet 5 mg, 1, tablet, By Mouth, 2 times a day, PRN, # 56 tablet, Refills 0, Tot. Refills 0, Acute 06/28/24 12:36:00 EST, as needed for pain, 06/28/23 12:35:00 EST, [facility] tablet, 1 Refills, Maintenance, 09/17/23 7:52:00 EST, [facility] 105[facility], 157, cm, 08/14/23 10:05:00 EST, Height, 94.3, kg, 01/19/22 4:25:00 EDT, Dry Weight Start Date: 09/17/23 Status: Ordered spironolactone 25 mg oral tablet 25 mg, 1, tablet, By Mouth, 2 times a day, # 180 tablet, Refills 3, Tot. Refills 3, Maintenance, 08/27/23 12:45:00 EST, Route to Pharmacy Electronically, [facility]/pharmacy #[id number], Partial fill upon patientrequest if the prescription is for a schedule II op... Start Date: 08/27/23 Stop Date: 08/21/24 Status: Ordered torsemide 20 mg oral tablet 2 tablet, By Mouth, Daily, # 180 tablet, 3 Refills, Maintenance, 08/13/23 9:50:00 EST, [facility] 54695, 157, cm, 06/27/23 16:10:00 EST, Height, 94.3, [...] Dates Health Status Cl inical Service Informant Heart failure with preserved ejection fraction Discharge Diagnosis 02/06/24 Vital Signs Most recent to oldest [Reference Range]: 1 Height 157.00 cm (02/06/24 11:09 AM) Weight 77.56 kg (02/06/24 11:09 AM) Oxygen Saturation [94-100 %] 94 % (02/06/24 11:09 AM) Pulse Rate [55-90 bpm] 73 bpm (02/06/24 11:09 AM) Body Mass Index [18.5-24.99 kg/m2] 31.47 kg/m2 *>HHI* (02/06/24 11:09 AM) Blood Pressure [90-138/55-84 mm Hg] 107/ 67mm Hg (02/06/24 11:09 AM) Temperature [96.8-100.4 DegF] 97.8 DegF (02/06/24 11:09 AM) Mode of Delivery (Oxygen) Room air (02/06/24 11:09 AM) Blood pressure sites Arm, right (02/06/24 11:09 AM) Temperature Route Oral (02/06/24 11:09 AM) Weight Obtained Via Patient/family state d (02/06/24 11:09 AM) Social History Social History Type Response Smoking Status Never (less than 100 in lifetime) entered on: 06/27/18 Sex Note * Maryse Gould: PERFORM Event Display: Patient Education/Instruction Authored Date: [id number] Ambulatory Adult Visit Summary [facility] [place] [address], [place] [id number] Name: FABIENNE URBINA : 1940?? Visit: 02/06/2024 11:00?? Ambulatory Visit Instructions ?? Your Care Team Primary Care Provider Mick Tatum MD? This Visit Provider Mick Tatum MD Your Diagnosis Heart failure with preserved ejection fraction Vitals Signs Temperature: 97.8 DegF Height: 157 cm Pulse Rate: 73 bpm Weight: 77.56 kg Systolic Blood Pressure: 107 mm Hg Body Mass Index:??31.47 kg/m2??Critical Diastolic Blood Pressure: 67 mm Hg Body surface area: 1.84 Oxygen Saturation: 94 % ?? What to do next Follow-Up Appointments Follow Up with??Mick Tatum MD Why: 1 month, add on end of day or session Where: [address] [place] [id number]- Future Orders Basic Metabolic Panel - Routine, Once, 01/08/24 3:00:00 EDT, Single or Recurring Future Order, [facility], Blood?? B Type Natriuretic Peptide (NT ProBNP) - Routine, Once, 01/08/24 3:00:00 EDT, Single or Recurring Future Order, [facility], Blood?? Medications The list below reflects the information in our records and provided by you today along with any changes made during this visit. Please continue your medications until treatment is completed or stopped by your provider. If this is different from the information you have or there are other questions,please contact the prescribing provider. What How Much When Instructions Unchanged apixaban (Eliquis 5 mg oral tablet) 1 tab(s) Oral Twice a day Unchanged Atorvastatin (atorvastatin 40 mg oral tablet) 1 tab(s) Oral Daily at Bedtime Unchanged Azathioprine (azaTHIOprine 50 mg oral tablet) 1 tab(s) TAKE 2 TABLETS ( 100MG ) BY MOUTH DAILY. ?? Unchanged Budesonide (budesonide 3 mg oral delayed release capsule) Unchanged Duloxetine (duloxetine 20 mg oral enteric coated capsule) 1 capsule Oral Daily at Bedtime Unchanged empagliflozin (Jardiance 10 mg oral tablet) 1 tab(s) Oral Daily in the morning Duration: 90 Days Unchanged Gabapentin (gabapentin 400 mg oral capsule) 2 capsule Oral 3 times a day Unchanged Isosorbide Mononitrate (isosorbide mononitrate 60 mg oral tablet, extended release) 1 tab(s) Oral Twice a day Unchanged Menthol-Zinc Oxide Topical (Calmoseptine 0.44%-20.6% topical ointment) See instructions After gently cleansing and patting dry, apply to area of skin breakdown on right buttocks daily andafter soiling, and cover with clean dressing ?? Unchanged Metoprolol (Metoprolol Succinate ER 25 mg oral tablet, extended release) 1 tab(s) Oral Daily Unchanged Nitroglycerin (nitroglycerin 0.4 mg sublingual tablet) 1 tab(s) Sublingual Every 5 minutes as needed for as needed for chest pain Duration: 3 doses/times not to exceed 3 doses/ 15 min--if pain persists, seek medical attention ?? Unchanged Oxycodone (oxyCODONE 5 mg oral tablet) 1 tab(s) Oral Twice a day as needed for as needed for pain Unchanged Pantoprazole (pantoprazole 40 mg oral delayed release tablet) Unchanged Ropinirole (rOPINIRole 0.5 mg oral tablet) 1 tab(s) Oral 4 times a day Unchanged Spironolactone (spironolactone 25 mg oral tablet) 1 tab(s) Oral Twice a day Duration: 90 Days Unchanged torsemide (torsemide 20 mg oral tablet) 2 tab(s) Oral Daily Medications and Immunizations Administered Medications Given During Visit No medications given during this visit.?? Allergies (NKA means No Known Allergies) Benadryl??(Shaking) Cats Contrast Dye Dust Other Environmental Allergy amoxicillin Common Emergency Awareness Tips IS IT A STROKE? Act FAST and Check for these signs: FACE Does the face look uneven? ARM Does one arm drift down? SPEECH Does their speech sound strange? TIME Call at any sign of stroke ?? Heart Attack Signs Chest discomfort: Most heart attacks involve discomfort in the center of the chest and lasts more than a few minutes, or goes away and comes back. It can feel like uncomfortable pressure, squeezing, fullness or pain. Discomfort in upper body: Symptoms can include pain or discomfort in one or both arms, back, neck, jaw or stomach. Shortness of breath: With or without discomfort. Other signs: Breaking out in a cold sweat, nausea, or lightheaded. Remember, MINUTES DO MATTER. If you experience any of these heart attack warning signs, call to get immediate medical attention! ?? Smoking can increase your chances of developing chronic health problems and can cause harmful effects to other family members in your house. If you smoke, you are strongly encouraged to quit. Please call [facility] [employer] Link at [phone] or [phone]) or log in to [email or web address] for referrals to smoking cessation programs. ?? The National Suicide Prevention Hotline is available 12/02 if you or someone you know needs to find a reason to keep living. By calling 3-580-414-Engiver (3285) you'll be connected to a skilled, trained counselor at a crisis center in your area. [facility] [employer] Portal You can view and manage your care through the patient portal or by using a health care debbie of your choosing. [employer] is a website that allows you to securely view your medical information including your hospital discharge summary, office visit summaries, medications and follow-up visits. You can also request appointments, renew medications, and request access to your medical information using a health care debbie of your choosing, or just ask a question. You can enroll at [email or web address] or register during your next office visit. [facility], in keeping with [facility] guidance, no longer requires face masks for staff, patientsor visitors in most situations. Similiar to time spent indoors at other locations, there is the chance that you were exposed to repiratory viruses during your time with us (such as flu or COVID-19). If you develop symptoms concerning for a viral respiratory infection, please seek testing (and treatment if indicated) from your medical provider or home test kit. ?? Disclaimer: The information provided is of a general nature and is intended to be used in conjunction with the recommendations and advice of your health care practitioner. Every effort has been made to ensure that the information provided is accurate and complete at the time it is provided to you however, as your needs change, or, as new information becomes available, different or additional instructions may be required. ?? If you have questions, please consult with your primary care provider or pharmacist, as appropriate. This information is not intended to serve as substitution for assessment and evaluation by a qualified health care provider. If you do not have a primary care provider, you may find a [facility] provider by calling [facility] Link at [phone]. Patient Care team information Care Team Personnel Name: Estrellita Putnam RN Position: [facility] RN Member Role: Primary Care Nurse Name: Marlen Kenny RN Position: [facility] RN Member Role: Primary Care Nurse Name: Toshia Muhammad RN Position: [facility] RN Martha Member Role: Primary Care Nurse Name: Suleman Jones RN Position: [facility] RN Member Role: Primary Care Nurse Name: Kathy Medina RN Position: [facility] RN Member Role: Primary Care Nurse Name: Marguerite Wang RN Position: [facility] RN Member Role: Primary Care Nurse Name: Mick Tatum MD Position: [facility] Physician - Primary Care Member Role: PCP Address: Address: [address] [place] [address]- Name: Svitlana Clark RN Position: [facility] RN Member Role: Primary Care Nurse Name: Yoana Guevara RN Position: [facility] RN Member Role: Primary Care Nurse Name: Pierre Groves RN Position: [facility] RN Member Role: Primary Care Nurse Name: Carmen Murphy NP Position: [facility] PCO Associate Professional Member Role: Primary Care Nurse Address: Address: [address] [place] [address]- Name: Rylie Ordonez RN Position: [facility] RN Member Role: Primary Care Nurse Name: Marisa Negrete RN Position: [facility] AMB Nurse Member Role: Primary Care Nurse Name: Aditi Brown RN Position: [facility] Onco RN Member Role: Primary Care Nurse Name: Chana Cazares RN Position: [facility] RN Member Role: Primary Care Nurse Name: Toshia Urbina RN Position: [facility] RN Member Role: Primary Care Nurse Name: Isabel Gray Position: [facility] [place] Glass Mechanic Member Role: Music Store Manager Name: Aniyah Sloan RN Position: [facility] SN RN Member Role: Primary Care Nurse Name: Rosemary Ramon RN Position: [facility] OB RN Member Role: Primary Care Nurse Name: Sneha Newton RN Position: [facility] Hospital Shoe Folder Member Role: Primary Care Nurse Care Team Related Persons Name: CLAUDIA URBINA Address: [address] [address] Name: RALPH SÁNCHEZ Address: [address] [address] Name: DONY CARCAMO Address: [address] [address]
--- OUTSIDE RECORDS SUMMARY | 2024-05-24 03:22 | XMS_ITS | Continuity of Care Document ---
Author Organization [facility] Address [address] [place] [address]- Care Team Providers Care Vp Communications Name Role Phone Mick Tatum MD Primary Care Physician [phone] [place] [facility] [place]23 - 02/13/24 [facility] [address] [place] [address]- Attending Physician: Reza Lipscomb NP Admitting Physician: Reza Lipscomb NP Referring Physician: Mick Tatum MD Allergies, [...] (Td) 5 07/23/96 Recorde d 1Result Comment: [id number] 2Location History: DR LOAIZA 3Location History: DR LOAIZA 4Location History: DR LOAIZA 5Location History: DR LOAIZA Medications atorvastatin 40 mg oral tablet 1 tablet, By Mouth, Daily at bedtime, # 90 tablet, 1 Refills, Maintenance, 10/30/23 9:30:00 EDT, [id number], 157, cm, 10/26/23 13:58:00 EDT, Height, 94.3, [...] Refills, Maintenance, 06/29/23 16:21:00 EST, [facility]/pharmacy #[id number], Partial safia... Start Date: 06/29/23 Status: Ordered duloxetine 20 mg oral enteric coated capsule 1 capsule, By Mouth, Daily at bedtime, # 90 capsule, 3 Refills, Maintenance, 09/26/23 5:28:00 EST, [facility], 157, cm, 09/18/23 11:23:00 EST, Height, 94.3, kg, 01/19/22 4:25:00 EDT, Dry Weight Start Date: 09/26/23 Status: Ordered Eliquis 5 mg oral tablet 1 tablet, By Mouth, 2 times a day, # 180 tablet, 3 Refills, Maintenance, 06/15/23 1:44:00 EST, [facility], 157, cm, 05/31/23 6:38:00 EST, Height, 94.3, kg, 01/19/22 4:25:00 EDT, Dry Weight Start Date: 06/15/23 Status: Ordered isosorbide mononitrate 60 mg oral tablet, extended release 1 tablet, By Mouth, 2 times a day, # 180 tablet, 3 Refills, Maintenance, 06/13/23 8:27:00 EST, [facility], 157, cm, 05/31/23 6:38:00 EST, Height, 94.3, kg, 01/19/22 4:25:00 EDT, Dry Weight Start Date: 06/13/23 Status: Ordered Jardiance 10 mg oral tablet 1 tablet, By Mouth, Daily in AM, # 90 tablet, 3 Refills, Maintenance, 06/04/23 8:09:00 EST, [facility], 157, cm, 05/31/23 6:38:00 EST, Height, 94.3, kg, 01/19/22 4:25:00 EDT, Dry Weight Start Date: 06/04/23 Stop Date: 09/02/23 Status: Ordered Metoprolol Succinate ER 25 mg oral tablet, extended release 1 tablet, By Mouth, Daily, # 30 tablet, 5 Refills, Maintenance, 01/17/24 7:34:00 EDT, [facility], 157, cm, 11/13/23 16:25:00 EDT, Height, 94.3, kg, 01/19/22 4:25:00 EDT, Dry Weight Start Date: 01/17/24 Status: Ordered nitroglycerin 0.4 mg sublingual tablet 1 tablet = 0.4 mg, Sublingual, Every 5 minutes, PRN as needed for chest pain, not to exceed 3 doses/15 min--if pain persists, seek medical attention, # 100 tablet, 0 Refills, Maintenance, 12/19/22 9:51:00 EDT, Tablet, [facility]/pharmacy #[id number], Partial fill... Start Date: 12/19/22 Status: Ordered oxyCODONE 5 mg oral tablet 5 mg, 1, tablet, By Mouth, 2 times a day, PRN, # 56 tablet, Refills 0, Tot. Refills 0, Acute 06/28/24 12:36:00 EST, as needed for pain, 06/28/23 12:35:00 EST, Route to Pharmacy Electronically, [facility]/pharmacy #[id number], Partial fill upon patient request if t... Start Date: 06/28/23 Stop Date: 06/28/24 Status: Ordered pantoprazole 40 mg oral delayed release tablet 0 Refills, Maintenance, 03/21/23 14:39:00 EDT Start Date: 03/21/23 Status: Ordered rOPINIRole 0.5 mg oral tablet 1 tablet, By Mouth, 4 times a day, # 360 tablet, 1 Refills, Maintenance, 09/17/23 7:52:00 EST, [facility], 157, cm, 08/14/23 10:05:00 EST, Height, 94.3, kg, 01/19/22 4:25:00 EDT, Dry Weight Start Date: 09/17/23 Status: Ordered spironolactone 25 mg oral tablet 25 mg, 1, tablet, By Mouth, 2 times a day, # 180 tablet, Refills 3, Tot. Refills 3, Maintenance, 08/27/23 12:45:00 EST, Route to Pharmacy Electronically, [facility]/pharmacy #[id number], Partial fill upon patientrequest if the prescription is for a schedule II op... Start Date: 08/27/23 Stop Date: 08/21/24 Status: Ordered torsemide 20 mg oral tablet 2 tablet, By Mouth, Daily, # 180 tablet, 3 Refills, Maintenance, 08/13/23 9:50:00 EST, [id number], 157, cm, 06/27/23 16:10:00 EST, Height, 94.3, [...] Team Personnel Name: Estrellita Putnam RN Position: [facility] RN Member Role: Primary Care Nurse Name: Marlen Kenny RN Position: [facility] RN Member Role: Primary Care Nurse Name: Toshia Muhammad RN Position: [facility] RN Martha Member Role: Primary Care Nurse Name: Suleman Jones RN Position: [facility] RN Member Role: Primary Care Nurse Name: Kathy Medina RN Position: [facility] RN Member Role: Primary Care Nurse Name: Marguerite aWng RN Position: [facility] RN Member Role: Primary Care Nurse Name: Mick Tatum MD Position: [facility] Physician - Primary Care Member Role: PCP Address: Address: [address] [place] [address]- [place] Name: Svitlana Clark RN Position: [facility] RN Member Role: Primary Care Nurse Name: Yoana Guevara RN Position: [facility] RN Member Role: Primary Care Nurse Name: Pierre Groves RN Position: [facility] RN Member Role: Primary Care Nurse Name: Carmen Murphy NP Position: [facility] PCO Associate Professional Member Role: Primary Care Nurse Address: Address: [address] [place] [address]- [place] Name: Rylie Ordonez RN Position: [facility] RN Member Role: Primary Care Nurse Name: Marisa Negrete RN Position: [facility] AMB Nurse Member Role: Primary Care Nurse Name: Aditi Brown RN Position: [facility] Onco RN Member Role: Primary Care Nurse Name: Chana Cazares RN Position: [facility] RN Member Role: Primary Care Nurse Name: Toshia Urbina RN Position: [facility] RN Member Role: Primary Care Nurse Name: Isabel Gray Position: [facility] MA Ticket Collector Or Usher Member Role: Superintendent Drilling Name: Aniyah Sloan RN Position: [facility] SN RN Member Role: Primary Care Nurse Name: Rosemary Ramon RN Position: [facility] OB RN Member Role: Primary Care Nurse Name: Sneha Newton RN Position: [facility] Farm Management Professor Member Role: Primary Care Nurse Care Team Related Persons Name: CLAUDIA URBINA Address: [address] [place] [address] Name: PRINCESS RALPH Address: [address] [place] [address] Name: DONY CARCAMO Address: [address] [place] [address]
--- OUTSIDE RECORDS SUMMARY | 2024-05-24 03:22 | XMS_ITS | Continuity of Care Document ---
Author Organization [facility] Address [address] [place] [address]- Care Team Providers Care Host/Hostess Restaurant Name Role Phone Mick Tatum MD Primary Care Physician [place] [facility] [place]06[place]24 - 04/11/24 [facility] [address] [place] [address]- Attending Physician: Mick Tatum MD Allergies, Adverse [...] (Td) 5 07/23/96 Recorde d 1Result Comment: [id number] 2Location History: DR LOAIZA 3Location History: DR LOAIZA 4Location History: DR LOAIZA 5Location History: DR LOAIZA Medications atorvastatin 40 mg oral tablet 1 tablet, By Mouth, Daily at bedtime, # 90 tablet, 1 Refills, Maintenance, 10/30/23 9:30:00 EDT, [facility], 157, cm, 10/26/23 13:58:00 EDT, Height, 94.3, [...] Gm, 1 Refills, Maintenance, 06/29/23 16:21:00 EST, [facility]/pharmacy #[id number], Partial safia... Start Date: 06/29/23 Status: Ordered duloxetine 20 mg oral enteric coated capsule 1 capsule, By Mouth, Daily at bedtime, # 90 capsule, 3 Refills, Maintenance, 09/26/23 5:28:00 EST, [facility], 157, cm, 09/18/23 11:23:00 EST, Height, 94.3, kg, 01/19/22 4:25:00 EDT, Dry Weight Start Date: 09/26/23 Status: Ordered Eliquis 5 mg oral tablet 1 tablet, By Mouth, 2 times a day, # 180 tablet, 3 Refills, Maintenance, 06/15/23 1:44:00 EST, [facility], 157, cm, 05/31/23 6:38:00 EST, Height, 94.3, kg, 01/19/22 4:25:00 EDT, Dry Weight Start Date: 06/15/23 Status: Ordered isosorbide mononitrate 60 mg oral tablet, extended release 1 tablet, By Mouth, 2 times a day, # 180 tablet, 3 Refills, Maintenance, 06/13/23 8:27:00 EST, [facility], 157, cm, 05/31/23 6:38:00 EST, Height, 94.3, kg, 01/19/22 4:25:00 EDT, Dry Weight Start Date: 06/13/23 Status: Ordered Jardiance 10 mg oral tablet 1 tablet, By Mouth, Daily in AM, # 90 tablet, 3 Refills, Maintenance, 06/04/23 8:09:00 EST, [facility], 157, cm, 05/31/23 6:38:00 EST, Height, 94.3, kg, 01/19/22 4:25:00 EDT, Dry Weight Start Date: 06/04/23 Stop Date: 09/02/23 Status: Ordered Metoprolol Succinate ER 25 mg oral tablet, extended release 1 tablet, By Mouth, Daily, # 30 tablet, 5 Refills, Maintenance, 01/17/24 7:34:00 EDT, [facility], 157, cm, 11/13/23 16:25:00 EDT, Height, 94.3, kg, 01/19/22 4:25:00 EDT, Dry Weight Start Date: 01/17/24 Status: Ordered nitroglycerin 0.4 mg sublingual tablet 1 tablet = 0.4 mg, Sublingual, Every 5 minutes, PRN as needed for chest pain, not to exceed 3 doses/15 min--if pain persists, seek medical attention, # 100 tablet, 0 Refills, Maintenance, 12/19/22 9:51:00 EDT, Tablet, [facility]/pharmacy #[id number], Partial fill... Start Date: 12/19/22 Status: Ordered oxyCODONE 5 mg oral tablet 5 mg, 1, tablet, By Mouth, 2 times a day, PRN, # 56 tablet, Refills 0, Tot. Refills 0, Acute 06/28/24 12:36:00 EST, as needed for pain, 06/28/23 12:35:00 EST, [facility] [...] tablet, 1 Refills, Maintenance, 09/17/23 7:52:00 EST, [facility]32, 157, cm, 08/14/23 10:05:00 EST, Height, 94.3, kg, 01/19/22 4:25:00 EDT, Dry Weight Start Date: 09/17/23 Status: Ordered spironolactone 25 mg oral tablet 25 mg, 1, tablet, By Mouth, 2 times a day, # 180 tablet, Refills 3, Tot. Refills 3, Maintenance, 08/27/23 12:45:00 EST, Route to Pharmacy Electronically, [facility]/pharmacy #[id number], Partial fill upon patientrequest if the prescription is for a schedule II op... Start Date: 08/27/23 Stop Date: 08/21/24 Status: Ordered torsemide 20 mg oral tablet 2 tablet, By Mouth, Daily, # 180 tablet, 3 Refills, Maintenance, 08/13/23 9:50:00 EST, [facility], 157, cm, 06/27/23 16:10:00 EST, Height, 94.3, [...] RN Position: [facility] RN Member Role: Primary Care Nurse Name: Marlen Kenny RN Position: [facility] RN Member Role: Primary Care Nurse Name: Toshia Muhammad RN Position: [facility] RN Martha Member Role: Primary Care Nurse Name: Suleman Jones RN Position: [facility] RN Member Role: Primary Care Nurse Name: Kathy Medina RN Position: [facility] RN Member Role: Primary Care Nurse Name: Marguerite Wang RN Position: [facility] RN Member Role: Primary Care Nurse Name: Mick Tatum MD Position: [facility] Physician - Primary Care Member Role: PCP Address: Address: [address] [place] [address]- [place] Name: Svitlana Clark RN Position: [facility] RN Member Role: Primary Care Nurse Name: Yoana Guevara RN Position: [facility] RN Member Role: Primary Care Nurse Name: Pierre Groves RN Position: [facility] RN Member Role: Primary Care Nurse Name: Carmen Murphy NP Position: [facility] PCO Associate Professional Member Role: Primary Care Nurse Address: Address: [address] [place] [address]- [place] Name: Rylie Ordonez RN Position: [facility] RN Member Role: Primary Care Nurse Name: Marisa Negrete RN Position: [facility] AMB Nurse Member Role: Primary Care Nurse Name: Aditi Brown RN Position: [facility] Onco RN Member Role: Primary Care Nurse Name: Chana Cazares RN Position: [facility] RN Member Role: Primary Care Nurse Name: Toshia Urbina RN Position: [facility] RN Member Role: Primary Care Nurse Name: Isabel Gray Position: [facility] [place] Magistrate Assistant Member Role: Groover Runner Name: Aniyah Sloan RN Position: [facility] SN RN Member Role: Primary Care Nurse Name: Rosemary Ramon RN Position: [facility] OB RN Member Role: Primary Care Nurse Name: Sneha Newton RN Position: [facility] Money Room Supervisor Member Role: Primary Care Nurse Care Team Related Persons Name: CLAUDIA URBINA Address: [address] [place] [address] Name: PRINCESS RALPH Address: [address] [place] [address] Name: DONY CARCAMO Address: [address] [place] [address]
--- OUTSIDE RECORDS SUMMARY | 2024-05-24 03:23 | XMS_ITS | Continuity of Care Document ---
Author Organization [facility]op[facility] Jose [facility] Address [address] [place] [address]- Care Team Providers Care Pyrometer Operator Name Role Phone Rc CORDERO, Mick Clay Primary Care Physician Encounter [facility] [place] Date(s): 02/01/24 - 03/02/24 [facility] [address] [place] [address]- Allergies, Adverse Reactions, Alerts Substance Reaction Severity [...] 5 07/23/96 Recorde juan pablo B[place] Comment: [id number] 2Location History: DR LOAIZA 3Location History: DR LOAIZA 4Location History: DR LOAIZA 5Location History: DR LOAIZA Medications atorvastatin 40 mg oral tablet 1 tablet, By Mouth, Daily at bedtime, # 90 tablet, 1 Refills, Maintenance, 10/30/23 9:30:00 EDT, [facility], 157, cm, 10/26/23 13:58:00 EDT, Height, 94.3, [...] Gm, 1 Refills, Maintenance, 06/29/23 16:21:00 EST, [facility]/pharmacy #[id number], Partial safia... Start Date: 06/29/23 Status: Ordered duloxetine 20 mg oral enteric coated capsule 1 capsule, By Mouth, Daily at bedtime, # 90 capsule, 3 Refills, Maintenance, 09/26/23 5:28:00 EST, [facility] 23198, 157, cm, 09/18/23 11:23:00 EST, Height, 94.3, kg, 01/19/22 4:25:00 EDT, Dry Weight Start Date: 09/26/23 Status: Ordered Eliquis 5 mg oral tablet 1 tablet, By Mouth, 2 times a day, # 180 tablet, 3 Refills, Maintenance, 06/15/23 1:44:00 EST, [facility]30[facility], 157, cm, 05/31/23 6:38:00 EST, Height, 94.3, kg, 01/19/22 4:25:00 EDT, Dry Weight Start Date: 06/15/23 Status: Ordered isosorbide mononitrate 60 mg oral tablet, extended release 1 tablet, By Mouth, 2 times a day, # 180 tablet, 3 Refills, Maintenance, 06/13/23 8:27:00 EST, [facility] 620[facility], 157, cm, 05/31/23 6:38:00 EST, Height, 94.3, kg, 01/19/22 4:25:00 EDT, Dry Weight Start Date: 06/13/23 Status: Ordered Jardiance 10 mg oral tablet 1 tablet, By Mouth, Daily in AM, # 90 tablet, 3 Refills, Maintenance, 06/04/23 8:09:00 EST, [facility] 99[facility], 157, cm, 05/31/23 6:38:00 EST, Height, 94.3, kg, 01/19/22 4:25:00 EDT, Dry Weight Start Date: 06/04/23 Stop Date: 09/02/23 Status: Ordered Metoprolol Succinate ER 25 mg oral tablet, extended release 1 tablet, By Mouth, Daily, # 30 tablet, 5 Refills, Maintenance, 01/17/24 7:34:00 EDT, [facility] 315[facility], 157, cm, 11/13/23 16:25:00 EDT, Height, 94.3, kg, 01/19/22 4:25:00 EDT, Dry Weight Start Date: 01/17/24 Status: Ordered nitroglycerin 0.4 mg sublingual tablet 1 tablet = 0.4 mg, Sublingual, Every 5 minutes, PRN as needed for chest pain, not to exceed 3 doses/15 min--if pain persists, seek medical attention, # 100 tablet, 0 Refills, Maintenance, 12/19/22 9:51:00 EDT, Tablet, [facility]/pharmacy #[id number], Partial fill... Start Date: 12/19/22 Status: Ordered oxyCODONE 5 mg oral tablet 5 mg, 1, tablet, By Mouth, 2 times a day, PRN, # 56 tablet, Refills 0, Tot. Refills 0, Acute 06/28/24 12:36:00 EST, as needed for pain, 06/28/23 12:35:00 EST, Route to Pharmacy Electronically, [facility]/pharmacy #[id number], Partial fill upon patient request if t... Start Date: 06/28/23 Stop Date: 06/28/24 Status: Ordered pantoprazole 40 mg oral delayed release tablet 0 Refills, Maintenance, 03/21/23 14:39:00 EDT Start Date: 03/21/23 Status: Ordered rOPINIRole 0.5 mg oral tablet 1 tablet, By Mouth, 4 times a day, # 360 tablet, 1 Refills, Maintenance, 09/17/23 7:52:00 EST, [facility] 434[facility], 157, cm, 08/14/23 10:05:00 EST, Height, 94.3, kg, 01/19/22 4:25:00 EDT, Dry Weight Start Date: 09/17/23 Status: Ordered spironolactone 25 mg oral tablet 25 mg, 1, tablet, By Mouth, 2 times a day, # 180 tablet, Refills 3, Tot. Refills 3, Maintenance, 08/27/23 12:45:00 EST, Route to Pharmacy Electronically, [facility]/pharmacy #[id number], Partial fill upon patientrequest if the prescription is for a schedule II op... Start Date: 08/27/23 Stop Date: 08/21/24 Status: Ordered torsemide 20 mg oral tablet 2 tablet, By Mouth, Daily, # 180 tablet, 3 Refills, Maintenance, 08/13/23 9:50:00 EST, [facility], 157, cm, 06/27/23 16:10:00 EST, Height, 94.3, [...] Primary Care Member Role: PCP Address: Address: [address] [place] [phone]- [place] Name: Svitlana Clark RN Position: [facility] RN Member Role: Primary Care Nurse Name: Yoana Guevara RN Position: [facility] RN Member Role: Primary Care Nurse Name: Pierre Groves RN Position: [facility] RN Member Role: Primary Care Nurse Name: Carmen Murphy NP Position: [facility] PCO Associate Professional Member Role: Primary Care Nurse Address: Address: [address] [place] [phone]- [place] Name: Rylie Ordonez RN Position: MED[facility] [...] Isabel Gray Position: [facility] [place] Template Clerk Member Role: Poured Pipe Maker Name: Aniyah Sloan RN Position: [facility] SN RN Member Role: Primary Care Nurse Name: Rosemary Ramon RN Position: [facility] OB RN Member Role: Primary Care Nurse Name: Sneha Newton RN Position: [facility] Soda Dry House Operator Member Role: Primary Care Nurse Care Team Related Persons Name: CLAUDIA URBINA Address: [address] [place] [address] Name: RALPH SÁNCHEZ Address: [address] [place] [address] Name: DONY CARCAMO Address: [address] [place] [address]
--- OUTSIDE RECORDS SUMMARY | 2024-05-24 03:23 | XMS_ITS | Continuity of Care Document ---
Author Organization [facility] Goip Jose lt Address [address] [place] [address]- Care Team Providers Care Flour Blender Helper Name Role Phone Mick Tatum MD Primary Care Phys[place] [facility] [place] - 05/08/24 [facility] Adult [address] [place] [address]- Attending Physician: Mick Tatum MD Allergies, Adverse [...] (Td) 6 07/23/96 Recorde d 1Result Comment: [facility]: [id number]. Screening Checklist reviewed with patient. Negative for any contraindications. 2Result Comment: [id number] 3Location History: DR LOAIZA 4Location History: DR LOAIZA 5Location History: DR LOAIZA 6Location History: DR LOAIZA Medications atorvastatin 40 mg oral tablet 1 tablet, By Mouth, Daily at bedtime, # 90 tablet, 1 Refills, Maintenance, 10/30/23 9:30:00 EDT, [facility], 157, cm, 10/26/23 13:58:00 EDT, Height, 94.3, [...] Refills, Maintenance, 09/26/23 5:28:00 EST, [facility], 157, cm, 09/18/23 11:23:00 EST, Height, 94.3, kg, 01/19/22 4:25:00 EDT, Dry Weight Start Date: 09/26/23 Status: Ordered Eliquis 5 mg oral tablet 1 tablet, By Mouth, 2 times a day, # 180 tablet, 3 Refills, Maintenance, 06/15/23 1:44:00 EST, [facility], 157, cm, 05/31/23 6:38:00 EST, Height, 94.3, kg, 01/19/22 4:25:00 EDT, Dry Weight Start Date: 06/15/23 Status: Ordered furosemide 40 mg oral tablet 40 mg, 1, tablet, By Mouth, Daily, Hold for SBP less than 90, # 30 tablet, Refills 5, Tot. Refills 5, Maintenance, 05/01/24 12:18:00 EDT, Route to Pharmacy Electronically, [facility]/pharmacy #[id number], Partialfill upon patient request if the [...] tablet, 5 Refills, Maintenance, 01/17/24 7:34:00 EDT, [facility] 264[facility], 157, cm, 11/13/23 16:25:00 EDT, Height, 94.3, [...] 05/01/24 12:17:00 EDT, Route to Pharmacy Electronically, [facility]/pharmacy #[id number],Partial fill upon patient request if the prescripti... Start Date: 05/01/24 Stop Date: 05/29/24 Status: Ordered rOPINIRole 0.5 mg oral tablet 1 tablet, By Mouth, 4 times a day, # 360 tablet, 1 Refills, Maintenance, 04/19/24 15:32:00 EDT, [facility], 157, cm, 02/06/24 11:09:00 EDT, Height Start [...] oldest [Reference Range]: 1 Height 157.00 cm (05/01/24 11:05 AM) Weight 79.1 kg (05/01/24 11:05 AM) Oxygen Saturation [94-100 %] 95 % (05/01/24 11:05 AM) Pulse Rate [55-90 bpm] 70 bpm (05/01/24 11:05 AM) Body Mass Index [18.5-24.99 kg/m2] 32.09 kg/m2 *>HHI* (05/01/24 11:05 AM) Blood Pressure [90-138/55-84 mm Hg] 110/ 66mm Hg (05/01/24 11:05 AM) Mode of Delivery (Oxygen) Room air (05/01/24 11:05 AM) Blood pressure sites Arm, left (05/01/24 11:05 AM) Weight Obtained Via Standing scale (05/01/24 11:05 AM) Social History Social History Type Response Smoking Status Never (less than 100 in lifetime) entered on: 06/27/18 Sex Note * Penny Lujan: PERFORM Event Display: Patient Education/Instruction Authored Date: [id number] Ambulatory Adult Visit Summary [facility], [place] [facility] [address] [address] [place] [address] Name: FABIENNE URBINA : 1940?? Visit: 05/01/2024 10:53?? Ambulatory Visit Instructions ?? Your Care Team Primary Care Provider Mick Tatum MD? This Visit Provider Mick Tatum MD Vitals Signs Pulse Rate: 70 bpm Height: 157 cm Systolic Blood Pressure: 110 mm Hg Weight: 79.1 kg Diastolic Blood Pressure: 66 mm Hg Body Mass Index:??32.09 kg/m2??Critical Oxygen Saturation: 95 % Body surface area: 1.86 What to do next Future Orders Basic Metabolic Panel - Routine, [...] prescribing provider. What How Much When Instructions Changed Isosorbide Mononitrate (isosorbide mononitrate 30 mg oral tablet, extended release) 1 tab(s) Oral Twice a day Hold for SBP less than 90 ?? Changed Oxycodone (oxyCODONE 5 mg oral tablet) 1 tab(s) Oral Daily as needed for Pain , Severe Pickup at [facility]/pharmacy #[id number] Unchanged apixaban (Eliquis 5 mg oral tablet) 1 tab(s) Oral Twice a day Unchanged Atorvastatin (atorvastatin 40 mg oral tablet) 1 tab(s) Oral Daily at Bedtime Unchanged Azathioprine (azaTHIOprine 50 mg oral tablet) 1 tab(s) Oral Daily TAKE 2 TABLETS ( 100MG ) BY MOUTH DAILY. ?? Unchanged Budesonide (budesonide 3 mg oral delayed release capsule) 3 capsule Oral Daily in the morning Unchanged Duloxetine (duloxetine 20 mg oral enteric coated capsule) 1 capsule Oral Daily at Bedtime Unchanged Furosemide (furosemide 40 mg oral tablet) 1 tab(s) Oral Daily Hold for SBP less than 90 ?? Pickup at [facility]/pharmacy #[id number] Unchanged Gabapentin (gabapentin 400 mg oral capsule) 2 capsule Oral 3 times a day Unchanged Metoprolol (metoprolol 50 mg oral tablet, extended release) 1 tab(s) Oral Daily Hold for pulse less than 60 ?? Unchanged Metoprolol (Metoprolol Succinate ER 25 mg oral tablet, extended release) 1 tab(s) Oral Daily Unchanged Nitroglycerin (nitroglycerin 0.4 mg sublingual tablet) 1 tab(s) Sublingual Every 5 minutes as needed for as needed for chest pain Duration: 3 doses/times not to exceed 3 doses/ 15 min--if pain persists, seek medical attention ?? Unchanged Ropinirole (rOPINIRole 0.5 mg oral tablet) 1 tab(s) Oral 4 times a day Unchanged Ropinirole (rOPINIRole 1 mg oral tablet) 1 tab(s) Oral Daily at Bedtime Unchanged Spironolactone (spironolactone 25 mg oral tablet) 1 tab(s) Oral Twice a day Duration: 90 Days [facility] Information [id number] [address], [place] [id number] [phone] ?? What How Much When Comments Stop Taking empagliflozin (Jardiance 10 mg oral tablet) 1 tab(s) Oral Daily in the morning Duration: 90 Days Stop Taking Menthol-Zinc Oxide Topical (Calmoseptine 0.44%-20.6% topical ointment) See instructions After gently cleansing and patting dry, apply to area of skin breakdown on right buttocks daily andafter soiling, and cover with clean dressing ?? Stop Taking Pantoprazole (pantoprazole 40 mg oral delayed release tablet) Stop Taking torsemide (torsemide 20 mg oral tablet) 2 tab(s) Oral Daily Medications and Immunizations Administered Immunizations Given During Visit Given Vaccine Date influenza virus vaccine, inactivated 05/01/2024 Comments : [facility]: [id number]. Screening Checklist reviewed with patient. Negative for any contraindications. Medications Given During Visit Medication ?? Dose ?? Route ?? Last Dose Times ?? influenza virus vaccine, inactivated?0.50 mL?? Intramuscular?? 01-MAY-2024 11:34:00.00?? Allergies (NKA means No Known Allergies) Benadryl??(Shaking) [...] are strongly encouraged to quit. Please call [facility] at [phone] or [phone] ([phone]) or log in to [email or web address] for referrals to smoking cessation programs. ?? The National Suicide Prevention Hotline is available 12/02 if you or someone you know needs to find a reason to keep living. By calling 7-458-908-[employer] (6390) you'll be connected to a skilled, trained counselor at a crisis center in your area. [facility] Portal You can view and manage your care through the patient portal or by using a health care debbie of your choosing. [employer] is a website that allows you to securely view your medical information including your hospital discharge summary, office visit summaries, medications and follow-up visits. You can also request appointments, renew medications, and request access to your medical information using a health care debbie of your choosing, or just ask a question. You can enroll at [email or web address] or register during your next office visit. [facility], in keeping with [facility] guidance, no longer requires face masks [...] primary care provider, you may find a [facility] provider by calling [facility] at [phone]. Patient Care team information Care Team Personnel Name: Estrellita Putnam RN Position: [facility] RN Member Role: Primary Care Nurse Name: Marlen Kenny RN Position: [facility] RN Member Role: Primary Care Nurse Name: Toshia Muhammad RN Position: [facility] RN Martha Member Role: Primary Care Nurse Name: Suleman Jones RN Position: [facility] RN Member Role: Primary Care Nurse Name: Kathy Medina RN Position: [facility] RN Member Role: Primary Care Nurse Name: Marguerite Wang RN Position: [facility] RN Member Role: Primary Care Nurse Name: Mick Tatum MD Position: [facility] Physician - Primary Care Member Role: PCP Address: Address: [address] [place] [address]- [place] Name: Svitlana Clark RN Position: [facility] [...] Member Role: Primary Care Nurse Address: Address: [address] [place] [address]- Name: Rylie Ordonez RN Position: [facility] RN Member Role: Primary Care Nurse Name: Marisa Negrete RN Position: [facility] KIRSTIN Nurse Member Role: Primary Care Nurse Name: Aditi Brown RN Position: [facility] Onco RN Member Role: Primary Care Nurse Name: Chana Cazares RN Position: [facility] RN Member Role: Primary Care Nurse Name: Toshia Urbina RN Position: [facility] RN Member Role: Primary Care Nurse Name: Isabel Gray Position: [facility] Violin Repairer Member Role: Sales Estimator Name: Aniyah Sloan RN Position: [facility] SN RN Member Role: Primary Care Nurse Name: Rosemary Ramon RN Position: [facility] OB RN Member Role: Primary Care Nurse Name: Sneha Newton RN Position: [facility] Tariff Supervisor Member Role: Primary Care Nurse Care Team Related Persons Name: CLAUDIA URBINA Address: [address] [place] [address] Name: RALPH SÁNCHEZ Address: [address] [place] [address] Name: DONY CARCAMO Address: [address] [place] [address]
--- OUTSIDE RECORDS SUMMARY | 2024-05-24 03:24 | XMS_ITS | Continuity of Care Document ---
Author Organization [facility] Gopi Jose lt Address [address] [place] [address]- Care Team Providers Care Body Mechanic Name Role Phone Rc CORDERO, Mick Clay Primary Care Physician Encounter [facility] Date(s): 04/14/24 - 05/14/24 [facility] [address] [place] [address]- Allergies, Adverse Reactions, Alerts Substance Reaction Severity [...] (Td) 6 07/23/96 Recorde d 1Result Comment: [facility]: [id number]. Screening Checklist reviewed with patient. Negative for any contraindications. 2Result Comment: [id number] 3Location History: DR LOAIZA 4Location History: DR LOAIZA 5Location History: DR LOAIZA 6Location History: DR LOAIZA Medications atorvastatin 40 mg oral tablet 1 tablet, By Mouth, Daily at bedtime, # 90 tablet, 1 Refills, Maintenance, 10/30/23 9:30:00 EDT, [facility], 157, cm, 10/26/23 13:58:00 EDT, Height, 94.3, [...] Refills, Maintenance, 09/26/23 5:28:00 EST, [facility], 157, cm, 09/18/23 11:23:00 EST, Height, 94.3, kg, 01/19/22 4:25:00 EDT, Dry Weight Start Date: 09/26/23 Status: Ordered Eliquis 5 mg oral tablet 1 tablet, By Mouth, 2 times a day, # 180 tablet, 3 Refills, Maintenance, 06/15/23 1:44:00 EST, [facility], 157, cm, 05/31/23 6:38:00 EST, Height, 94.3, kg, 01/19/22 4:25:00 EDT, Dry Weight Start Date: 06/15/23 Status: Ordered furosemide 40 mg oral tablet 40 mg, 1, tablet, By Mouth, Daily, Hold for SBP less than 90, # 30 tablet, Refills 5, Tot. Refills 5, Maintenance, 05/01/24 12:18:00 EDT, Route to Pharmacy Electronically, [facility]/pharmacy #[id number], Partialfill upon patient request if [...] Refills, Maintenance, 01/17/24 7:34:00 EDT, [facility], 157, cm, 11/13/23 16:25:00 EDT, Height, 94.3, kg, 01/19/22 4:25:00 EDT, Dry Weight Start Date: 01/17/24 Status: Ordered nitroglycerin 0.4 mg sublingual tablet 1 tablet = 0.4 mg, Sublingual, Every 5 minutes, PRN as needed for chest pain, not to exceed 3 doses/15 min--if pain persists, seek medical attention, # 100 tablet, 0 Refills, Maintenance, 12/19/22 9:51:00 EDT, Tablet, [facility]/pharmacy #[id number], Partial fill... Start Date: 12/19/22 Status: Ordered oxyCODONE 5 mg oral tablet 5 mg, 1, tablet, By Mouth, Daily, PRN, # 28 tablet, Refills 0, Tot. Refills 0, Acute 05/29/24 12:30:00 EST, Pain , Severe, 05/01/24 12:17:00 EDT, Route to Pharmacy Electronically, [facility]/pharmacy #[id number],Partial fill upon patient request if the prescripti... Start Date: 05/01/24 Stop Date: 05/29/24 Status: Ordered rOPINIRole 0.5 mg oral tablet 1 tablet, By Mouth, 4 times a day, # 360 tablet, 1 Refills, Maintenance, 04/19/24 15:32:00 EDT, [facility], 157, cm, 02/06/24 11:09:00 EDT, Height Start [...] 08/27/23 12:45:00 EST, Route to Pharmacy Electronically, [facility]/pharmacy #[id number], Partial fill upon patientrequest if [...] Name: Estrellita Putnam RN Position: [facility] RN Member [...] Primary Care Member Role: PCP Address: Address: [address] [place] [address]- [place] Name: Svitlana Clark RN Position: [facility] RN Member Role: Primary Care Nurse Name: Yoana Guevara RN Position: [facility] RN Member Role: Primary Care Nurse Name: Pierre Groves RN Position: [facility] RN Member Role: Primary Care Nurse Name: Carmen Murphy NP Position: [facility] PCO Associate Professional Member Role: Primary Care Nurse Address: Address: [address] [place] [address]- [place] Name: Rylie Ordonez RN Position: [facility] RN Member Role: Primary Care Nurse Name: Marisa Negrete RN Position: [facility] AMB Nurse Member Role: Primary Care Nurse Name: Aditi Brown RN Position: [facility] Onco RN Member Role: Primary Care Nurse Name: Chana Cazares RN Position: [facility] RN Member Role: Primary Care Nurse Name: Toshia Urbina RN Position: [facility] RN Member Role: Primary Care Nurse Name: Isabel Gray Position: [facility] [place] Core Maker Helper Member Role: Handicraft Or Hobby Shop Manager Name: Aniyah Sloan RN Position: [facility] SN RN Member Role: Primary Care Nurse Name: Rosemary Ramon RN Position: [facility] OB RN Member Role: Primary Care Nurse Name: Sneha Newton RN Position: [facility] Hospital Slip Seat Coverer Member Role: Primary Care Nurse Care Team Related Persons Name: CLAUDIA URBINA Address: [address] [place] [address] Name: RALPH SÁNCHEZ Address: [address] [place] [address] Name: DONY CARCAMO Address: [address] [place] [address]
[2024-05-24 03:30] LABS: Basophils Percent Auto 0.6 % (0-2); Eosinophils Percent Auto 0.6 % (0-4); Hematocrit 36.6 % (37.0-47.0); Hemoglobin 11.9 g/dl (12.0-16.0); Imm Gran Abs Auto 0.03 X10*3/uL (0.00-0.03); Imm Gran Pct Auto 0.4 % (0.0-0.4); Lymphocytes Absolute Auto 0.9 X10*3/uL (1.2-4.9); Lymphocytes Percent Auto 13.2 % (20-40); MANUAL DIFF FLAG NO; Mean Corpuscular HGB Conc 32.5 g/dl (31.0-35.0); Mean Corpuscular Hemoglobin 28.1 pg (27.0-33.0); Mean Corpuscular Volume 86.3 fL (80.0-98.0); Mean Platelet Volume 8.9 fL (9.4-12.3); Monocytes Absolute Auto 0.9 X10*3/uL (0.1-1.2); Monocytes Percent Auto 12.7 % (2-11); Neutrophils Percent Auto 72.5 % (45-73); Platelet Count 340 X10*3/uL (160-400); Red Blood Count 4.24 X10*6/uL (4.20-5.50)
[2024-05-24] MEDS: 0.9 % Sodium Chloride 1,000 ML 999 ML IV (03:30)
[2024-05-24] MEDS: Loperamide HCl 2 MG CAPSULE PO (03:30)
[2024-05-24] MEDS: ondansetron HCL 4 MG/2 ML VIAL IVPUSH (03:30)
[2024-05-24 03:43] LABS: Alanine Aminotransferase 12 U/L (0-31); Albumin Level 3.1 g/dL (3.5-5.0); Alkaline Phosphatase 86 U/L (39-117); Anion Gap 15 (12-20); Aspartate Amino Transferase 23 U/L (5-31); Bilirubin Total 0.9 mg/dL (0.0-1.0); Blood Urea Nitrogen 18 mg/dL (9-16); Carbon Dioxide 25 mmol/L (22-29); Chloride 107 mmol/L (96-108); Creatinine Clr Calc Pharmacy 46.2; Estimated Glomerular Filt Rate > 60; Glucose Random 133 mg/dL (60-115); Magnesium 2.1 mg/dL (1.6-2.6); Potassium 3.6 mmol/L (3.3-5.1); Sodium 143 mmol/L (135-145); Total Protein 6.1 g/dL (6.5-8.0)
--- NOTE | 2024-05-24 04:48 | PC.NURSE ---
pt requested her medicine for restless legs, informed dr hernandez. called pt's son Sg, to come and pick pt, up. No answer, will try again
[2024-05-24] MEDS: rOPINIRole HCL 1 MG TABLET PO (05:04)
[2024-05-24 05:19] VITALS: BP 110/59; PULSE 91; RESP 19; TEMP 37; O2SAT 95
--- NOTE | 2024-05-24 05:37 | PC.NURSE ---
pt waiting on family member to come and pick her up
[2024-05-24 05:48] VITALS: BP 107/54; PULSE 99; RESP 18; TEMP 37.1; O2SAT 94
== END 2024-05-24 05:49 | disposition home or self-care (01) ==
PROVIDERS: Emergency Provider Internal Medicine; PCP Family Medicine
DX: K52.9 Noninfective gastroenteritis and colitis, unspecified (principal); I11.0 Hypertensive heart disease with heart failure; I50.9 Heart failure, unspecified; E11.9 Type 2 diabetes mellitus without complications; Z86.718 Personal history of other venous thrombosis and embolism
CPT/HCPCS: 36415; 80053; 83735; 85025; 96361; 96374; 99284; J2405

== ENCOUNTER 2024-05-27 13:03 | Inpatient (IN) | payer MEDICARE, SELFPAY ==
--- NOTE | ~2024-05-27 | CT_ITS ---
EXAMINATION: CT ABDOMEN AND PELVIS WITH CONTRAST CLINICAL INFORMATION: Left lower quadrant pain COMPARISON: 10/28/2022 TECHNIQUE: Multidetector volumetric images were obtained from the superior aspect of the liver through the pubic symphysis following administration 85 mL of Omnipaque 350 intravenous contrast. Sagittal and coronal reformatted images were obtained on the technologist's workstation. Oral contrast: No This CT examination was performed using dose optimization techniques as appropriate, variously including the following: *Automated exposure control *Adjustment of mA and/or kV according to patient size (this includes techniques or standardized protocols for targeted exams where dose is matched to indication/reason for exam; i.e. extremities or head) *Use of iterative reconstruction technique DLP: 780 mGy-cm FINDINGS: LUNG BASES: Followup imaging is not routinely recommended for benign appearing cysts. ABDOMINAL AND PELVIC WALL: Unremarkable. LIVER AND BILIARY TREE: Hepatic steatosis. GALLBLADDER: Status post cholecystectomy. PANCREAS: Pancreatic uncinate 8 process cystic lesion measures 1.2 x 1.0 cm (3:31), unchanged is unchanged since 2022. SPLEEN: Unremarkable. ADRENAL GLANDS: Unremarkable. KIDNEYS AND URETERS: Bilateral benign-appearing renal cysts. GASTROINTESTINAL TRACT: Colonic diverticulosis. There is inflammatory changes and fascial thickening in the left lower quadrant sigmoid colon with pericolonic stranding. No intra-abdominal free air or pericolonic fluid collection. Appendix not visualized, however no inflammatory changes are seen in the right lower quadrant. VASCULAR: Aortic atherosclerotic calcifications, no aneurysmal dilation. LYMPH NODES/PERITONEUM: No lymphadenopathy. FREE FLUID: None. BLADDER: Unremarkable. PELVIC VISCERA: Large volume fluid is seen in the uterine endometrial canal. OSSEOUS STRUCTURES: Degenerative changes of the thoracolumbar spine. CT/CT abdomen pelvis w IV con IMPRESSION: * Acute diverticulitis of the left lower quadrant sigmoid colon. No intra-abdominal free air or pericolonic fluid collection. * Large volume fluid is seen in the uterine endometrial canal. Recommend further evaluation with pelvic ultrasound. 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 Electronically signed by: Kaur Redd MD 05/27/2024 08:52 PM [facility] [place]
[2024-05-27 13:15] VITALS: BP 135/55; PULSE 98; RESP 16; TEMP 36.8; O2SAT 96; BMI 31.6
--- NOTE | 2024-05-27 13:15 | ED.GENADULT ---
HPI - General Adult General Chief complaint: Nausea/Vomiting/Diarrhea Stated complaint: dehydration Time Seen by Provider: 05/27/24 18:53 Source: patient Limitations: no limitations History of Present Illness ED Provider: Dolly Blue PA-C HPI narrative: 84-year-old female with a history of ulcerative colitis, hx of DVT on Eliquis, HFpEF, restless leg syndrome/sciatica, chronic leg pain on chronic opioids, HLD presents with the abdominal pain times 5-6 days. Pain over left lower abdomen, unable to describe. Associated nausea, diarrhea and inability to tolerate oral intake. Patient is having 5-6 episodes of diarrhea daily. Patient states she can not eat or drink without having immediate diarrhea, patient was hospitalized late summer, then was in 2 different rehab facilities the following month of March. Denies fever. Related Data Home Medications ?Medication ?Instructions ?Recorded ?Confirmed apixaban 5 mg tablet (Eliquis) 5 mg PO BID 12/02/20 02/08/24 atorvastatin 40 mg tablet 1 tab PO BEDTIME 05/11/21 02/08/24 spironolactone 25 mg tablet 25 mg PO DAILY@0900 09/01/22 02/09/24 ropinirole 0.5 mg tablet 0.5 mg PO BID@1200,1800 09/06/22 02/08/24 gabapentin 400 mg capsule 400 mg PO BID 08/31/23 02/09/24 metoprolol succinate 50 mg 25 mg PO DAILY 08/31/23 02/09/24 tablet,extended release 24 hr azathioprine 50 mg tablet 50 mg PO BID 12/09/23 02/08/24 pantoprazole 40 mg tablet,delayed 40 mg PO DAILY@0630 12/09/23 02/08/24 release furosemide 40 mg tablet 20 mg PO DAILY 02/08/24 02/08/24 albuterol sulfate 90 mcg/actuation 2 puff inhalation Q4-6H PRN 02/09/24 02/09/24 aerosol inhaler wheezing duloxetine 20 mg capsule,delayed 20 mg PO BEDTIME 02/09/24 02/09/24 release empagliflozin 10 mg tablet 10 mg PO DAILY 02/09/24 02/09/24 (Jardiance) gabapentin 300 mg capsule 300 mg PO BID 02/09/24 02/09/24 isosorbide mononitrate 30 mg 15 mg PO BID 02/09/24 02/09/24 tablet,extended release 24 hr magnesium oxide 400 mg PO DAILY 02/09/24 02/09/24 multivitamin 1 tab PO DAILY 02/09/24 02/09/24 nitroglycerin 0.4 mg sublingual 0.4 mg sublingual Q5M PRN Chest 02/09/24 02/09/24 tablet Pain nystatin 100,000 unit/gram topical 1 appl topical BID 02/09/24 02/09/24 powder oxycodone 5 mg tablet 5 mg PO BID PRN Pain (Scale Score 02/09/24 02/09/24 4-6) ropinirole 0.5 mg tablet 1 mg PO BEDTIME 02/09/24 02/09/24 Previous Rx's ?Medication ?Instructions ?Recorded budesonide 3 mg 9 mg (3 x 3 mg) PO DAILY #270 caps 12/20/23 capsule,delayed,extended release ondansetron 4 mg disintegrating 4 mg PO Q6-8H PRN nausea and 05/24/24 tablet vomiting #7 tabs Allergies Allergy/AdvReac Type Severity Reaction Status Date / Time dogs, cats etc.. Allergy Unknown Unknown Uncoded 05/27/24 13:17 barium Allergy Hives Uncoded 05/27/24 13:17 Review of Systems Review of Systems: Yes all other systems are reviewed and are negative Constitutional: Constitutional: Reports fatigue, Denies fever(s), Reports malaise and Reports poor appetite Cardiovascular: Cardiovascular: Denies chest pain Gastrointestinal: Gastrointestinal: Reports abdominal pain, Reports diarrhea and Reports nausea Endocrine: Endocrine: Reports fatigue PMFSH Past Medical History Attestation statement: The following information was validated with the patient. Medical History History of CHF (congestive heart failure) Constipation Acute proctitis Hemorrhoids Spinal abscess Restless leg syndrome HTN (hypertension) Pre-diabetes DVT (deep venous thrombosis) Colitis Ulcerative colitis Surgical History Hx of shoulder surgery Social History Social History Household Members: Family Household Members Other:: 2 Housing: House Do you presently have visiting nurse or other home services: Yes Unable to assess alcohol history related to: Unable to respond Alcohol intake: never Patient Tobacco Use Status: Never used Tobacco Advance Directives: Yes Advance Directives on File: Yes Advance Directives Date on File: 11/16/22 Do you have a plan to hurt others: No Plan service: No Current occupational status: retired Physical Exam ED Vital Signs: Vital Signs - 24 hr 05/27/24 13:15 05/27/24 21:12 Temperature 98.2 F 97.5 F Pulse Rate 98 92 Respiratory Rate 16 16 Blood Pressure 135/55 L 141/71 H Pulse Oximetry 96 96 Oxygen Delivery Method Room Air Room Air BMI result Body Mass Index 31.6 Const Other: Alert, Orientation/consciousness: patient oriented x3 HENMT Other: Dry oral mucosa, dry cracked lips Resp Other: Nonlabored respiration Cardio Other: Normal peripheral perfusion GI Other: Abdomen is soft, nondistended, obese, moderate fall tenderness in left lower abdomen with moderate involuntary guarding Skin Other: Warm dry no rash Neuro General: patient oriented x3, no focal motor deficits and CN's II-XI intact bilaterally Psych Other: Cooperative Course Course Course Narrative: This is a rapid medical exam performed by Javad Cervantes NP: Additional HPI, ROS, PE not included below will be deferred to primary provider. Patient is an 84 year old female presenting to the ED with ongoing diarrhea, dry heaving, poor PO intake. Seen here on 05/24 and diagnosed with gastroenteritis. Plan: labs, UA, stool studies Reevaluation(s) Reevaluation #1: The patient has not been tolerating oral intake at home, I do not feel that she will do well on oral antibiotics. Furthermore, her active GI symptoms have been difficult for her to manage. I will place admission request and start IV antibiotics. Medications Administered Discontinued Medications Generic Name Dose Route Start Last Admin Trade Name Freq PRN Reason Stop Dose Admin Sodium Chloride 500 mls @ 500 mls/hr 05/27/24 19:02 05/27/24 21:44 Ns IV 05/27/24 20:01 Infused .Q1H ONE Infusion Iohexol 85 ml 05/27/24 20:01 05/27/24 20:02 Iohexol 350 Mg/Ml 100 Ml Infus..Btl IV 05/27/24 20:02 85 ml ONCE ONE Administration Medical Decision Making Medical Decision Making MDM Narrative: 84-year-old female with a history of ulcerative colitis, hx of DVT on Eliquis, HFpEF, restless leg syndrome/sciatica, chronic leg pain on chronic opioids, HLD presents with the abdominal pain times 5-6 days. Pain over left lower abdomen, unable to describe. Associated nausea, diarrhea and inability to tolerate oral intake. Patient is having 5-6 episodes of diarrhea daily. Patient states she can not eat or drink without having immediate diarrhea, patient was hospitalized late summer, then was in 2 different rehab facilities the following month of March. Denies fever. Problem: Age, anticoagulated, chronic pain, UC History: Per patient and the daughters I have considered the following differential diagnoses: C diff, diverticulitis, UC flare, viral gastroenteritis Plan: I am concerned for C diff the, the patient does have risk factors. C diff and GI panel were ordered. Screening labs were also ordered. Given focal left lower abdominal pain I am considering diverticulitis, she has also had this in the past. We will obtain a CT scan. Patient declines pain medication at this time, we will give gentle IV fluid. And antiemetic. This could also be viral gastroenteritis, social illness has been prevalent within the community. I do not think this is an ulcerative colitis flare, her bowel movements have not been bloody. I have independently reviewed the following tests: Labs: No leukocytosis, not anemic, no electrolyte abnormality, viral panel negative CT abd pelvis: CT/CT abdomen pelvis w IV con IMPRESSION: * Acute diverticulitis of the left lower quadrant sigmoid colon. No intra-abdominal free air or pericolonic fluid collection. * Large volume fluid is seen in the uterine endometrial canal. Recommend further evaluation with pelvic ultrasound. 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 Electronically signed by: Kaur Redd MD 05/27/2024 08:52 PM [facility] [place] will need to f/u for outpt TVUS Lab Data 05/27/24 13:31 05/27/24 13:31 Labs: Lab Results 05/27/24 05/27/24 Range/Units 13:31 19:22 WBC 6.7 (4.8-10.8) X10*3/uL RBC 4.22 (4.20-5.50) X10*6/uL Hgb 11.7 L (12.0-16.0) g/dl Hct 36.7 L (37.0-47.0) % MCV 87.0 (80.0-98.0) fL MCH 27.7 (27.0-33.0) pg MCHC 31.9 (31.0-35.0) g/dl RDW 18.2 H (11.0-16.0) % Plt Count 354 (160-400) X10*3/uL MPV 9.0 L (9.4-12.3) fL Immature Gran % (Auto) 0.3 (0.0-0.4) % Neut % (Auto) 70.8 (45-73) % Lymph % (Auto) 15.3 L (20-40) % [place] % (Auto) 11.3 H (2-11) % Eos % (Auto) 2.0 (0-4) % Baso % (Auto) 0.3 (0-2) % Lymph # (Auto) 1.0 L (1.2-4.9) X10*3/uL [place] # (Auto) 0.8 (0.1-1.2) X10*3/uL Eos # (Auto) 0.1 (0.0-0.4) X10*3/uL Baso # (Auto) 0.0 (0.0-0.2) X10*3/uL Abs Immat Gran (auto) 0.02 (0.00-0.03) X10*3/uL Absolute Neuts (auto) 4.7 (2.0-8.3) x10*3/uL Absolute Nucleated RBC 0.000 (0.0-0.012) X10*3/uL Nucleated RBC % (auto) 0.0 (0.0-0.2) /100WBC Sodium 141 (135-145) mmol/L Potassium 3.5 (3.3-5.1) mmol/L Chloride 107 (96-108) mmol/L Carbon Dioxide 19 L (22-29) mmol/L Anion Gap 19 (12-20) BUN 10 (9-16) mg/dL Creatinine 1.04 (0.5-1.4) mg/dL Estim Creat Clear Calc 38.3 Estimated GFR 50 Random Glucose 81 (60-115) mg/dL Calcium 9.6 D (8.4-10.2) mg/dL Magnesium 2.0 (1.6-2.6) mg/dL Total Bilirubin 1.0 (0.0-1.0) mg/dL AST 30 (5-31) U/L ALT 11 (0-31) U/L Alkaline Phosphatase 89 (39-117) U/L Total Protein 6.3 L (6.5-8.0) g/dL Albumin 3.2 L (3.5-5.0) g/dL Influenza Type A (PCR) NEGATIVE (Negative) Influenza Type B (PCR) NEGATIVE (Negative) RSV RNA Qual (PCR) NEGATIVE (Negative) SARS-CoV-2 RNA (RT-PCR) NEGATIVE (Negative) Discharge Plan Discharge Clinical Impression: Diverticulitis, Adult failure to thrive, Weakness Patient Disposition: Admitted As Inpatient Print Language: Upper Sorbian
[2024-05-27 13:35] LABS: MANUAL DIFF FLAG NO
[2024-05-27 13:36] LABS: Basophils Percent Auto 0.3 % (0-2); Eosinophils Absolute Auto 0.1 X10*3/uL (0.0-0.4); Hematocrit 36.7 % (37.0-47.0); Hemoglobin 11.7 g/dl (12.0-16.0); Imm Gran Abs Auto 0.02 X10*3/uL (0.00-0.03); Imm Gran Pct Auto 0.3 % (0.0-0.4); Lymphocytes Percent Auto 15.3 % (20-40); Mean Corpuscular HGB Conc 31.9 g/dl (31.0-35.0); Mean Corpuscular Hemoglobin 27.7 pg (27.0-33.0); Monocytes Absolute Auto 0.8 X10*3/uL (0.1-1.2); Monocytes Percent Auto 11.3 % (2-11); Neutrophils Absolute Auto 4.7 x10*3/uL (2.0-8.3); Neutrophils Percent Auto 70.8 % (45-73); Platelet Count 354 X10*3/uL (160-400); Red Blood Count 4.22 X10*6/uL (4.20-5.50); Red Cell Distribution Width 18.2 % (11.0-16.0); White Blood Count 6.7 X10*3/uL (4.8-10.8)
[2024-05-27 13:56] LABS: Alanine Aminotransferase 11 U/L (0-31); Albumin Level 3.2 g/dL (3.5-5.0); Alkaline Phosphatase 89 U/L (39-117); Anion Gap 19 (12-20); Aspartate Amino Transferase 30 U/L (5-31); Blood Urea Nitrogen 10 mg/dL (9-16); Calcium 9.6 mg/dL (8.4-10.2); Carbon Dioxide 19 mmol/L (22-29); Chloride 107 mmol/L (96-108); Creatinine Clr Calc Pharmacy 38.3; Estimated Glomerular Filt Rate 50; Glucose Random 81 mg/dL (60-115); Potassium 3.5 mmol/L (3.3-5.1); Sodium 141 mmol/L (135-145); Total Protein 6.3 g/dL (6.5-8.0)
--- NOTE | 2024-05-27 19:29 | PC.NURSE ---
Addendum entered by Irvin Hood 05/27/24 19:32: pt reports allergy is to barium not iv contrast. unsure if ever had iv contrast. PA made aware. Original Note: pt reports allergy to iv contrast - hives. Heather BETHEA made aware.
[2024-05-27] MEDS: iohexoL 350 MG/ML 100 ML INFUS..BTL 85 ML IV (20:02)
[2024-05-27 20:11] LABS: Influenza A PCR NEGATIVE (Negative); Influenza B PCR NEGATIVE (Negative); Resp Syncy Virus RNA Qual PCR NEGATIVE (Negative); SARS COV2 PCR INHOUSE NEGATIVE (Negative)
[2024-05-27] MEDS: 0.9 % Sodium Chloride 500 ML IV (20:34)
[2024-05-27 21:12] VITALS: BP 141/71; PULSE 92; RESP 16; TEMP 36.4; O2SAT 96
[2024-05-27] MEDS: rOPINIRole HCL 0.5 MG TABLET PO (22:50)
[2024-05-27] MEDS: metroNIDAZOLE/NS 500 MG/100 ML PIGGYBACK 100 MG IV (22:51)
[2024-05-28] MEDS: levoFLOXacin/D5W 750 MG/150 ML PIGGYBACK 100 MG IV (00:21)
--- NOTE | 2024-05-28 01:10 | P.HPHOSP_ITS ---
History of Present Illness Date of Service: 05/28/24 Attending physician on admission: Robin Torres Chief Complaint: Abdominal pain and diarrhea. Maris Nash is 84 years old woman with past medical history significant for CHF, hypertension, DVT on Eliquis and ulcerative colitis presents to the emergency department complaining of 5 day history of watery nonbloody diarrhea associated with generalized abdominal discomfort, nausea and vomiting x1. She was complaining of chills for denied fever. Her appetite has been poor. She denied any acute urinary symptoms. Denied any cardiopulmonary symptoms. She takes azathioprine. In the ED, she was found to have stable vital signs. Blood workup showed no leukocytosis. Hemoglobin is 11.7 and platelets are normal. There are no electrolyte imbalances. Lactic acid is normal. LFTs are normal. Viral testing is negative for COVID-19, influenza and RSV. Abdomen pelvis CT scan showed acute diverticulitis of of the sigmoid colon without free air or pericolic fluid collection. ED tx: NS 500 mL bolus, levofloxacin 750 mg IV, Flagyl 500 mg IV Review of Systems 2 Review of Systems: All 12 systems were reviewed and normal except as noted in HPI. [facility] Medical History History of CHF (congestive heart failure) Constipation Acute proctitis Hemorrhoids Spinal abscess Restless leg syndrome HTN (hypertension) Pre-diabetes DVT (deep venous thrombosis) Colitis Ulcerative colitis Surgical History Hx of shoulder surgery Social History Household Members: Family Household Members Other:: 2 Housing: House Do you presently have visiting nurse or other home services: Yes Unable to assess alcohol history related to: Unable to respond Alcohol intake: never Patient Tobacco Use Status: Never used Tobacco Smoked in Last 30 Days: No Use of substances other than those prescribed or required for medical reasons: No Advance Directives: Yes Advance Directives on File: Yes Advance Directives Date on File: 11/16/22 Do you have a plan to hurt others: No Plan service: No Current occupational status: retired Meds Allergies Allergy/AdvReac Type Severity Reaction Status Date / Time dogs, cats etc.. Allergy Unknown Unknown Uncoded 05/27/24 13:17 barium Allergy Hives Uncoded 05/27/24 13:17 Active Medications: Current Medications Acetaminophen (Acetaminophen 325 Mg Tablet) 975 mg PO Q6H PRN PRN Reason: Pain, Mild (Pain Scale 1-3), fever or headache Calcium Carbonate (Calcium Carbonate 750 Mg Tab.Chew) 750 mg PO Q4H PRN PRN Reason: Heartburn Ceftriaxone Sodium (Ceftriaxone Sodium 1 Gm Vial) 1 gm IVPUSH Q24H AUDI Heparin Sodium (Porcine) (Heparin Sodium,Porcine 5,000 Unit/Ml Vial) 5,000 unit SUBCUT Q12H AUDI Lactated Ringer's (Lr) 1,000 mls @ 100 mls/hr IVCONT .Q10H AUDI Metronidazole (Flagyl) 500 mg in 100 mls @ 100 mls/hr IV Q8H AUDI Ondansetron HCl (Ondansetron Hcl 4 Mg/2 Ml Vial) 4 mg IVPUSH Q8H PRN PRN Reason: Nausea and Vomiting Sodium Chloride (0.9 % Sodium Chloride Flush 3 Ml Syringe) 3 ml IVFLUSH QSHIFT [facility] Home Medications ?Medication ?Instructions ?Recorded ?Confirmed ?Last Taken ?Type apixaban 5 mg tablet (Eliquis) 5 mg PO BID 12/02/20 02/08/24 01/16/24 History atorvastatin 40 mg tablet 1 tab PO BEDTIME 05/11/21 02/08/24 1 Day Ago History ~01/15/24 spironolactone 25 mg tablet 25 mg PO DAILY@0900 09/01/22 02/09/24 01/16/24 History ropinirole 0.5 mg tablet 0.5 mg PO BID@1200,1800 09/06/22 02/08/24 01/15/24 History gabapentin 400 mg capsule 400 mg PO BID 08/31/23 02/09/24 01/16/24 History metoprolol succinate 50 mg 25 mg PO DAILY 08/31/23 02/09/24 01/16/24 History tablet,extended release 24 hr azathioprine 50 mg tablet 50 mg PO BID 12/09/23 02/08/24 01/16/24 History pantoprazole 40 mg tablet,delayed 40 mg PO DAILY@0630 12/09/23 02/08/24 01/16/24 History release furosemide 40 mg tablet 20 mg PO DAILY 02/08/24 02/08/24 Unknown History albuterol sulfate 90 mcg/actuation 2 puff inhalation Q4-6H PRN 02/09/24 02/09/24 Unknown History aerosol inhaler wheezing duloxetine 20 mg capsule,delayed 20 mg PO BEDTIME 02/09/24 02/09/24 Unknown History release empagliflozin 10 mg tablet 10 mg PO DAILY 02/09/24 02/09/24 Unknown History (Jardiance) gabapentin 300 mg capsule 300 mg PO BID 02/09/24 02/09/24 Unknown History isosorbide mononitrate 30 mg 15 mg PO BID 02/09/24 02/09/24 Unknown History tablet,extended release 24 hr magnesium oxide 400 mg PO DAILY 02/09/24 02/09/24 Unknown History multivitamin 1 tab PO DAILY 02/09/24 02/09/24 Unknown History nitroglycerin 0.4 mg sublingual 0.4 mg sublingual Q5M PRN Chest 02/09/24 02/09/24 Unknown History tablet Pain nystatin 100,000 unit/gram topical 1 appl topical BID 02/09/24 02/09/24 Unknown History powder oxycodone 5 mg tablet 5 mg PO BID PRN Pain (Scale Score 02/09/24 02/09/24 Unknown History 4-6) ropinirole 0.5 mg tablet 1 mg PO BEDTIME 02/09/24 02/09/24 Unknown History Physical Exam 2 Vital Signs and Narrative: Vital Signs: Last Vital Signs Temp 97.5 F 05/27/24 21:12 Pulse 92 05/27/24 21:12 Resp 16 05/27/24 21:12 BP 141/71 H 05/27/24 21:12 Pulse Ox 96 05/27/24 21:12 O2 Del Method Room Air 05/27/24 21:12 BMI result Body Mass Index 31.6 Constitutional - Awake and Alert, No apparent distress. Cooperative. Pleasant. HEENT - Dry oral mucosa. Normal sclerae. Heart - S1S2, RRR, No edema Lungs - Normal lung expansion, Normal respiratory effort, No respiratory distress, CTA bilaterally Gastrointestinal - NT / ND; increased BS; No rebound or guarding Extremities - no calf tenderness bilaterally, no swelling Musculoskeletal - Normal inspection, normal ROM Skin - Warm/Dry Neurological - Alert & oriented x3. No focal weakness. Normal speech. Psychological - Appropriate affect Results Labs 05/27/24 13:31 05/27/24 13:31 Labs: Laboratory Results - last 24 hr 05/27/24 05/27/24 05/27/24 13:31 19:22 22:27 MCV 87.0 MCH 27.7 MCHC 31.9 RDW 18.2 H Plt Count 354 MPV 9.0 L Immature Gran % (Auto) 0.3 Neut % (Auto) 70.8 Lymph % (Auto) 15.3 L [place] % (Auto) 11.3 H Eos % (Auto) 2.0 Baso % (Auto) 0.3 Lymph # (Auto) 1.0 L [place] # (Auto) 0.8 Eos # (Auto) 0.1 Baso # (Auto) 0.0 Abs Immat Gran (auto) 0.02 Absolute Neuts (auto) 4.7 Absolute Nucleated RBC 0.000 Nucleated RBC % (auto) 0.0 Anion Gap 19 Estim Creat Clear Calc 38.3 Estimated GFR 50 Random Glucose 81 Lactic Acid 1.0 Calcium 9.6 D Magnesium 2.0 Total Bilirubin 1.0 AST 30 ALT 11 Alkaline Phosphatase 89 Total Protein 6.3 L Albumin 3.2 L Influenza Type A (PCR) NEGATIVE Influenza Type B (PCR) NEGATIVE RSV RNA Qual (PCR) NEGATIVE SARS-CoV-2 RNA (RT-PCR) NEGATIVE Imaging Radiologist's Impressions: Impressions Abdomen/Pelvis CT 05/27/24 19:53 IMPRESSION: * Acute diverticulitis of the left lower quadrant sigmoid colon. No intra-abdominal free air or pericolonic fluid collection. * Large volume fluid is seen in the uterine endometrial canal. Recommend further evaluation with pelvic ultrasound. 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 Electronically signed by: Kaur Redd MD 05/27/2024 08:52 PM [facility] [place] and Plan (1) Diverticulitis: Status: Acute (2) Acute diarrhea: Status: Acute Plan Maris Nash is 84 y/o woman admitted with: * Acute diverticulitis. Admit to hospitalist service. Liquid diet. Empiric IV antibiotic therapy with ceftriaxone and Flagyl. IV fluids. * Hyperlipidemia. Continue atorvastatin. * Essential hypertension. Continue metoprolol. * CHF. Hold furosemide -patient dehydrated. Continue Jardiance. * DVT. Continue Eliquis. * UC. Taking azathioprine, will hold due to acute infection. DVT prophylaxis: Eliquis Code status: Full Patient will need hospitalization for at least 2 midnights for acute diverticulitis treatment with IV antibiotics in the setting of immunocompromised state Quality Stroke Does the patient have a stroke diagnosis?: No VTE Prior VTE?: No VTE Risk Level:: Medical - moderate - high VTE Device Contraindication: Treatment Not Indicated VTE Drug Contraindication: N/A - Med Ordered
[2024-05-28] MEDS: Lactated Ringers 1,000 ML 100 ML IVCONT ×2 (02:39→11:48)
[2024-05-28 02:50] VITALS: BP 133/66; PULSE 97; RESP 18; TEMP 36.5; O2SAT 99
[2024-05-28 05:05] LABS: MANUAL DIFF FLAG NO
[2024-05-28 05:09] LABS: Basophils Percent Auto 0.5 % (0-2); Eosinophils Absolute Auto 0.2 X10*3/uL (0.0-0.4); Eosinophils Percent Auto 2.9 % (0-4); Hematocrit 31.4 % (37.0-47.0); Imm Gran Abs Auto 0.02 X10*3/uL (0.00-0.03); Imm Gran Pct Auto 0.4 % (0.0-0.4); Lymphocytes Absolute Auto 0.6 X10*3/uL (1.2-4.9); Lymphocytes Percent Auto 10.8 % (20-40); Mean Corpuscular HGB Conc 31.8 g/dl (31.0-35.0); Mean Corpuscular Hemoglobin 27.6 pg (27.0-33.0); Mean Corpuscular Volume 86.7 fL (80.0-98.0); Monocytes Absolute Auto 0.9 X10*3/uL (0.1-1.2); Monocytes Percent Auto 16.5 % (2-11); Neutrophils Absolute Auto 3.8 x10*3/uL (2.0-8.3); Neutrophils Percent Auto 68.9 % (45-73); Platelet Count 301 X10*3/uL (160-400); Red Blood Count 3.62 X10*6/uL (4.20-5.50); Red Cell Distribution Width 17.9 % (11.0-16.0); White Blood Count 5.5 X10*3/uL (4.8-10.8)
[2024-05-28 05:17] LABS: Appearance Urine Clear; Color Urine Yellow; Glucose Urine UA Negative (Negative); Leukocyte Esterase Urine Trace (Negative); Nitrite Urine Negative (Negative); PH 5.5 (5.0-9.0); Specific Gravity - Urine >= 1.030 (1.005-1.025); UMIC TRIGGER UACC YES; Urine Blood Trace (Negative); Urine Ketones 80 mg/dL (Negative); Urine Protein 30 (1+) mg/dL (Neg-Trace)
[2024-05-28 05:27] LABS: Anion Gap 16 (12-20); Blood Urea Nitrogen 7 mg/dL (9-16); Calcium 8.3 mg/dL (8.4-10.2); Carbon Dioxide 17 mmol/L (22-29); Chloride 109 mmol/L (96-108); Creatinine Clr Calc Pharmacy 51.8; Estimated Glomerular Filt Rate > 60; Glucose Random 62 mg/dL (60-115); Magnesium 1.8 mg/dL (1.6-2.6); Potassium 3.2 mmol/L (3.3-5.1); Sodium 139 mmol/L (135-145)
[2024-05-28 05:47] VITALS: BP 115/58; PULSE 90; RESP 18; TEMP 36.5; O2SAT 96
[2024-05-28 05:57] LABS: Bacteria Urine 2+ (None Seen); Hyaline Casts Urine 0-2 /LPF (0-2); RBC Urine 0-2 /HPF (0-2); UACC Culture Trigger YES; WBC Urine 21-50 /HPF (0-5)
[2024-05-28] MEDS: metroNIDAZOLE/NS 500 MG/100 ML PIGGYBACK 100 MG IV ×3 (07:19→22:04)
--- NOTE | 2024-05-28 08:08 | PC.NURSE ---
Resumed care of pt at 0700. A/ox3, respirations even and unlabored, no increased wob/sob, s1 and s2 heard, abdomen soft, non-tender on palpation. Pt up in bed watching tv, LR running @ 100mls/hr, 20g IV in right ac, patent, asymptomatic. Plan for pt to get room on med-surg floor, pt updated on plan of care. Call gustafson within reach, all needs met at this time.
--- NOTE | 2024-05-28 09:10 | PHA.MEDREC ---
Pharmacy Consult ? Medication Reconciliation Pharmacy has completed the medication reconciliation. Patient seemingly non adherent. Unsure of medications on her own at first, so I went through and named the most recent claims and she confirmed. Then she noted some medications that have not been filled since October (atorvastatin, Cymbalta) but insisted she takes them. She also noted spironolactone and insisted she still took it, even with furosemide. She mentioned eliquis, gabapentin, and budesonide which are all outdated, but added to med rec.
[2024-05-28 09:11] VITALS: BP 129/58; PULSE 92; RESP 14; TEMP 36.2; O2SAT 97
[2024-05-28] MEDS: Heparin Sodium,Porcine 5,000 UNIT/ML VIAL 5000 UNIT SUBCUT ×2 (09:17→20:06)
[2024-05-28] MEDS: cefTRIAXone sodium 1 GM VIAL IVPUSH (09:17)
[2024-05-28 10:27] LABS: CDiff Gene PCR NEGATIVE (Negative)
[2024-05-28] MEDS: Gabapentin 300 MG CAPSULE PO ×2 (11:48→20:06)
[2024-05-28] MEDS: rOPINIRole HCL 0.5 MG TABLET PO ×2 (11:48→18:20)
[2024-05-28] MEDS: Apixaban 5 MG TABLET PO ×2 (11:48→20:05)
[2024-05-28] MEDS: Gabapentin 400 MG CAPSULE PO ×2 (11:48→20:05)
[2024-05-28] MEDS: oxyCODONE HCl Immed Release 5 MG TABLET PO (11:48)
--- NOTE | 2024-05-28 12:36 | MHC.CM.PN ---
IMM DELIVERED. PATIENT LIVES IN A HOME W/ [place]. FUNCTIONALLY INDEPENDENT. AMBULATES W/ WALKER. REPORTS SHE IS ACTIVE W/ OVERLOOK FOR SN/PT/OT. PCP AJAY PINK MD HCP ON FILE AND VERIFIED. DP: GOAL IS HOME W/ FAMILY, RESUME SERVICES. HAS BEEN TO [facility] IN THE PAST (NOVEMBER 2023) AND WOULD NOT AGREE TO RETURN. DAUGHTER BELIEVES SHE IS OUT OF MCR DAYS. FAMILY TRANSPORT. CM WILL CONTINUE TO FOLLOW.
[2024-05-28 15:16] LABS: Adenovirus F 40/41 Not Detected (Not Detect.); Astrovirus Not Detected (Not Detect.); Campylobacter Not Detected (Not Detect.); Cryptosporidium Not Detected (Not Detect.); Cyclospora cayetanensis Not Detected (Not Detect.); E. coli EAEC Not Detected (Not Detect.); E. coli EPEC Not Detected (Not Detect.); E. coli ETEC Not Detected (Not Detect.); E. coli STEC Not Detected (Not Detect.); Entamoeba histolytica Not Detected (Not Detect.); Giardia lamblia Not Detected (Not Detect.); Norovirus GI/GII Not Detected (Not Detect.); Plesiomonas shigelloides Not Detected (Not Detect.); Rotavirus A Not Detected (Not Detect.); Salmonella Not Detected (Not Detect.); Sapovirus Not Detected (Not Detect.); Shigella sp./EIEC Not Detected (Not Detect.); Vibrio Not Detected (Not Detect.); Vibrio Cholerae Not Detected (Not Detect.); Yersinia enterocolitica Not Detected (Not Detect.)
[2024-05-28 15:37] VITALS: BP 124/55; PULSE 97; RESP 14; TEMP 36.8; O2SAT 94
[2024-05-28] MEDS: ondansetron HCL 4 MG/2 ML VIAL IVPUSH (15:53)
[2024-05-28 19:32] VITALS: BP 138/65; PULSE 107; RESP 20; TEMP 37.1; O2SAT 93
[2024-05-28] MEDS: Isosorbide Mononitrate 60 MG TAB.ER.24H PO (20:05)
[2024-05-28] MEDS: Spironolactone 25 MG TABLET PO (20:05)
[2024-05-28] MEDS: azaTHIOprine 50 MG TABLET PO (20:05)
[2024-05-28] MEDS: Atorvastatin Calcium 40 MG TABLET PO (20:05)
[2024-05-28] MEDS: DULoxetine HCl 20 MG CAPSULE.DR PO (20:06)
[2024-05-28] MEDS: rOPINIRole HCL 1 MG TABLET PO (20:06)
[2024-05-29] MEDS: Lactated Ringers 1,000 ML 100 ML IVCONT ×2 (03:03→17:04)
[2024-05-29 03:04] VITALS: BP 134/62; PULSE 107; RESP 20; TEMP 37.1; O2SAT 92
[2024-05-29] MEDS: metroNIDAZOLE/NS 500 MG/100 ML PIGGYBACK 100 MG IV ×3 (06:14→22:31)
[2024-05-29 07:22] VITALS: BP 116/56; PULSE 101; RESP 18; TEMP 37.3; O2SAT 93
[2024-05-29] MEDS: cefTRIAXone sodium 1 GM VIAL IVPUSH (08:48)
[2024-05-29] MEDS: Furosemide 40 MG TABLET PO (08:50)
[2024-05-29] MEDS: Metoprolol Succinate ER 25 MG TAB.ER.24H PO (08:50)
[2024-05-29] MEDS: Isosorbide Mononitrate 30 MG TAB.ER.24H PO (08:50)
[2024-05-29] MEDS: Isosorbide Mononitrate 60 MG TAB.ER.24H PO ×2 (08:50→21:06)
[2024-05-29] MEDS: Spironolactone 25 MG TABLET PO ×2 (08:50→21:05)
[2024-05-29] MEDS: Apixaban 5 MG TABLET PO ×2 (08:50→21:06)
[2024-05-29] MEDS: Gabapentin 400 MG CAPSULE PO ×2 (08:50→21:06)
[2024-05-29] MEDS: Gabapentin 300 MG CAPSULE PO ×2 (08:50→21:06)
[2024-05-29] MEDS: azaTHIOprine 50 MG TABLET PO (08:50)
[2024-05-29] MEDS: Heparin Sodium,Porcine 5,000 UNIT/ML VIAL 5000 UNIT SUBCUT (08:51)
[2024-05-29] MEDS: 0.9 % Sodium Chloride Flush 3 ML SYRINGE IVFLUSH ×3 (08:51→22:31)
[2024-05-29 09:18] LABS: Hemoglobin 9.9 g/dl (12.0-16.0); Mean Corpuscular HGB Conc 31.9 g/dl (31.0-35.0); Mean Corpuscular Hemoglobin 27.6 pg (27.0-33.0); Mean Corpuscular Volume 86.4 fL (80.0-98.0); Mean Platelet Volume 9.2 fL (9.4-12.3); Platelet Count 299 X10*3/uL (160-400); Red Blood Count 3.59 X10*6/uL (4.20-5.50); Red Cell Distribution Width 18.1 % (11.0-16.0); White Blood Count 6.5 X10*3/uL (4.8-10.8)
[2024-05-29 09:29] LABS: Anion Gap 11 (12-20); Blood Urea Nitrogen 5 mg/dL (9-16); Calcium 8.1 mg/dL (8.4-10.2); Carbon Dioxide 20 mmol/L (22-29); Chloride 108 mmol/L (96-108); Creatinine Clr Calc Pharmacy 52.4; Estimated Glomerular Filt Rate > 60; Glucose Random 113 mg/dL (60-115); Potassium 3.1 mmol/L (3.3-5.1); Sodium 136 mmol/L (135-145)
--- NOTE | 2024-05-29 10:27 | HO.PM.IMPN ---
Subjective Subjective Date of Service: 05/29/24 Interval History: f/u on acute diverticulitis and abdominal pain Feel sick, not eating much Physical Exam Vital Signs: Vital Signs: Last Vital Signs Temp 99.1 F 05/29/24 07:22 Pulse 101 H 05/29/24 07:22 Resp 18 05/29/24 07:22 BP 116/56 L 05/29/24 07:22 Pulse Ox 93 05/29/24 07:22 O2 Del Method Room Air 05/29/24 07:22 BMI result Body Mass Index 31.6 Const: Other: General: AO X 3, no acute distress Resp: CTA bilateral CVS: S1,S2,RRR GI: +BS, NT, no distention Skin: No rash Neuro: motor grossly intact Psych: appropriate affect Objective Data Active Medications Acetaminophen (Acetaminophen 325 Mg Tablet) 975 mg PO Q6H PRN PRN Reason: Pain, Mild (Pain Scale 1-3), fever or headache Albuterol Sulfate (Albuterol Sulfate 90 Mcg 8 Gm Inhaler) 2 puff INHALE Q4H PRN PRN Reason: wheezing Apixaban (Apixaban 5 Mg Tablet) 5 mg PO BID [facility] Last Admin: 05/29/24 08:50 Dose: 5 mg Documented By: SUZETTE Atorvastatin Calcium (Atorvastatin Calcium 40 Mg Tablet) 40 mg PO BEDTIME [facility] Last Admin: 05/28/24 20:05 Dose: 40 mg Documented By: WILLIE Azathioprine (Azathioprine 50 Mg Tablet) 50 mg PO BID [facility] Last Admin: 05/29/24 08:50 Dose: 50 mg Documented By: SUZETTE Calcium Carbonate (Calcium Carbonate 750 Mg Tab.Chew) 750 mg PO Q4H PRN PRN Reason: Heartburn Ceftriaxone Sodium (Ceftriaxone Sodium 1 Gm Vial) 1 gm IVPUSH Q24H [facility] Last Admin: 05/29/24 08:48 Dose: 1 gm Documented By: SUZETTE Duloxetine HCl (Duloxetine Hcl 20 Mg Capsule.) 20 mg PO BEDTIME [facility] Last Admin: 05/28/24 20:06 Dose: 20 mg Documented By: WILLIE Furosemide (Furosemide 40 Mg Tablet) 40 mg PO DAILY [facility]; Protocol Last Admin: 05/29/24 08:50 Dose: 40 mg Documented By: SUZETTE Gabapentin (Gabapentin 300 Mg Capsule) 300 mg PO BID [facility] Last Admin: 05/29/24 08:50 Dose: 300 mg Documented By: SUZETTE Gabapentin (Gabapentin 400 Mg Capsule) 400 mg PO BID [facility] Last Admin: 05/29/24 08:50 Dose: 400 mg Documented By: SUZETTE Heparin Sodium (Porcine) (Heparin Sodium,Porcine 5,000 Unit/Ml Vial) 5,000 unit SUBCUT Q12H [facility] Last Admin: 05/29/24 08:51 Dose: 5,000 unit Documented By: SUZETTE Lactated Ringer's (Lr) 1,000 mls @ 100 mls/hr IVCONT .Q10H [facility] Last Admin: 05/29/24 05:45 Dose: Not Given Documented By: MYRIAMQC Non-Admin Reason: IV Running Metronidazole (Flagyl) 500 mg in 100 mls @ 100 mls/hr IV Q8H [facility] Last Infusion: 05/29/24 08:59 Dose: Infused Documented By: SUZETTE Isosorbide Mononitrate (Isosorbide Mononitrate 30 Mg Tab.Er.24h) 30 mg PO DAILY [facility]; Protocol Last Admin: 05/29/24 08:50 Dose: 30 mg Documented By: SUZETTE Isosorbide Mononitrate (Isosorbide Mononitrate 60 Mg Tab.Er.24h) 60 mg PO BID [facility]; Protocol Last Admin: 05/29/24 08:50 Dose: 60 mg Documented By: SUZETTE Metoprolol Succinate (Metoprolol Succinate Er 25 Mg Tab.Er.24h) 25 mg PO DAILY [facility]; Protocol Last Admin: 05/29/24 08:50 Dose: 25 mg Documented By: SUZETTE Nitroglycerin (Nitroglycerin 0.4 Mg Tab.Subl) 0.4 mg SUBLINGUAL Q5M PRN PRN Reason: Chest Pain Non-Formulary Medication (Budesonide) 9 mg PO DAILY [facility] Ondansetron HCl (Ondansetron Hcl 4 Mg/2 Ml Vial) 4 mg IVPUSH Q8H PRN PRN Reason: Nausea and Vomiting Last Admin: 05/28/24 15:53 Dose: 4 mg Documented By: EVELIN Oxycodone HCl (Oxycodone Hcl Immed Release 5 Mg Tablet) 5 mg PO BID PRN PRN Reason: Pain (Scale Score 4-6) Last Admin: 05/28/24 11:48 Dose: 5 mg Documented By: ANGELA Ropinirole HCl (Ropinirole Hcl 1 Mg Tablet) 1 mg PO BEDTIME [facility] Last Admin: 05/28/24 20:06 Dose: 1 mg Documented By: WILLIE Ropinirole HCl (Ropinirole Hcl 0.5 Mg Tablet) 0.5 mg PO BID@1200,1800 [facility] Last Admin: 05/28/24 18:20 Dose: 0.5 mg Documented By: EVELIN Sodium Chloride (0.9 % Sodium Chloride Flush 3 Ml Syringe) 3 ml IVFLUSH QSHIFT [facility] Last Admin: 05/29/24 08:51 Dose: 3 ml Documented By: SUZETTE Spironolactone (Spironolactone 25 Mg Tablet) 25 mg PO BID [facility]; Protocol Last Admin: 05/29/24 08:50 Dose: 25 mg Documented By: SUZETTE Labs 05/29/24 09:01 05/29/24 09:01 Labs: Laboratory Results - last 24 hr 05/28/24 05/29/24 08:32 09:01 MCV 86.4 MCH 27.6 MCHC 31.9 RDW 18.1 H Plt Count 299 MPV 9.2 L Absolute Nucleated RBC 0.000 Nucleated RBC % (auto) 0.0 Anion Gap 11 L Estim Creat Clear Calc 52.4 Estimated GFR > 60 Random Glucose 113 Calcium 8.1 L Stl C. cayetanensis PCR Not Detected Stool Rotavirus A PCR Not Detected Stl Adenov F 40/41 PCR Not Detected Stool Astrovirus (PCR) Not Detected Stool Campylobacter PCR Not Detected Stool Cryptosporidium PCR Not Detected Stl Sh Tox Pr E STEC PCR Not Detected Stool E coli O157 PCR Not applicable Stl Enterotoxigenic E PCR Not Detected Stool EPEC (PCR) Not Detected Stool EAEC (PCR) Not Detected Stl E. histolytica PCR Not Detected Stool Giardia Lamblia PCR Not Detected Stl P. shigelloides PCR Not Detected Stool Salmonella PCR Not Detected Stool Sapovirus (PCR) Not Detected Stl Shigella/EIEC PCR Not Detected St Y.enterocolitica PCR Not Detected Stool Vibrio (PCR) Not Detected Stl Vibrio cholerae PCR Not Detected Stl Norovirus GI/GII PCR Not Detected C. difficile Tox B Gene NEGATIVE Microbiology Microbiology Results: Microbiology 05/27/24 22:28 Blood Culture - Preliminary Blood - Venous No growth after 24 hours. 05/27/24 22:27 Blood Culture - Preliminary Blood - Venous No growth after 24 hours. Assessment and Plan (1) Pneumonia: Status: Resolved Plan 83-year-old female with a PMH significant for?ulcerative colitis, hx of DVT on Eliquis, HFpEF, restless leg syndrome/sciatica, chronic leg pain on chronic opioids, HLD here with acute diverticulitis Acute diverticulitis--still with annaamria -continue Ceftriaxone + Flagyl -IVF, liquid diet Hyperlipidemia. Continue atorvastatin. Essential hypertension. Continue metoprolol, imdur, aldactone HFpEF Lasix, hold if not eating or drinking Hypokalemia-oral replacement Restless leg--requip UC. Taking azathioprine, will hold due to acute infection. h/o DVT. Continue Eliquis. Quality Stroke Does the patient have a stroke diagnosis?: No VTE Prior VTE?: No VTE Risk Level:: Medical - moderate - high VTE Device Contraindication: Treatment Not Indicated VTE Drug Contraindication: N/A - Med Ordered
[2024-05-29] MEDS: Potassium Chloride Packet 20 MEQ PACKET 40 MEQ PO (12:27)
[2024-05-29] MEDS: rOPINIRole HCL 0.5 MG TABLET PO ×2 (12:27→17:05)
[2024-05-29 15:06] VITALS: BP 112/56; PULSE 82; RESP 18; TEMP 36.4; O2SAT 92
[2024-05-29] MEDS: Acetaminophen 325 MG TABLET 975 MG PO (17:16)
[2024-05-29] MEDS: Lactated Ringers 1,000 ML 75 ML IVCONT (18:31)
--- NOTE | 2024-05-29 18:31 | PC.NURSE ---
Patient legs and arms edematous,Dr. Dasilva notified,IV rate decreased to 75 ml/hr
[2024-05-29 19:26] VITALS: BP 105/56; PULSE 75; RESP 18; TEMP 36.1; O2SAT 95
[2024-05-29] MEDS: rOPINIRole HCL 1 MG TABLET PO (21:06)
[2024-05-29] MEDS: Atorvastatin Calcium 40 MG TABLET PO (21:06)
[2024-05-29] MEDS: DULoxetine HCl 20 MG CAPSULE.DR PO (21:06)
[2024-05-30 03:02] VITALS: BP 110/55; PULSE 68; RESP 16; TEMP 36; O2SAT 94
[2024-05-30] MEDS: metroNIDAZOLE/NS 500 MG/100 ML PIGGYBACK 100 MG IV (06:15)
[2024-05-30 06:49] LABS: Hematocrit 29.3 % (37.0-47.0); Hemoglobin 9.3 g/dl (12.0-16.0); Mean Corpuscular HGB Conc 31.7 g/dl (31.0-35.0); Mean Corpuscular Hemoglobin 27.5 pg (27.0-33.0); Mean Corpuscular Volume 86.7 fL (80.0-98.0); Mean Platelet Volume 9.3 fL (9.4-12.3); Platelet Count 293 X10*3/uL (160-400); Red Blood Count 3.38 X10*6/uL (4.20-5.50); Red Cell Distribution Width 18.1 % (11.0-16.0); White Blood Count 5.8 X10*3/uL (4.8-10.8)
[2024-05-30 07:00] LABS: Anion Gap 11 (12-20); Blood Urea Nitrogen 6 mg/dL (9-16); Carbon Dioxide 25 mmol/L (22-29); Chloride 105 mmol/L (96-108); Estimated Glomerular Filt Rate 56; Glucose Random 98 mg/dL (60-115); Potassium 3.3 mmol/L (3.3-5.1); Sodium 138 mmol/L (135-145)
[2024-05-30 07:59] VITALS: BP 91/50; PULSE 72; RESP 16; TEMP 36.2; O2SAT 94
[2024-05-30] MEDS: cefTRIAXone sodium 1 GM VIAL IVPUSH (08:14)
[2024-05-30] MEDS: Gabapentin 300 MG CAPSULE PO ×2 (08:14→19:38)
[2024-05-30] MEDS: Gabapentin 400 MG CAPSULE PO ×2 (08:14→19:37)
[2024-05-30] MEDS: Apixaban 5 MG TABLET PO ×2 (08:15→19:37)
--- NOTE | 2024-05-30 08:29 | PC.NURSE ---
BP meds held per MD Dasilva due to hypotension
--- NOTE | 2024-05-30 10:43 | P.PNIM_ITS ---
Subjective Subjective Date of Service: 05/30/24 Interval History: f/u on acute diverticulitis and abdominal pain She is feeling much better today and desires regular food blood pressure is on low side but assymptomatic Physical Exam 2 Vital Signs: Vital Signs: Last Vital Signs Temp 97.2 F 05/30/24 07:59 Pulse 72 05/30/24 07:59 Resp 16 05/30/24 07:59 BP 91/50 L 05/30/24 07:59 Pulse Ox 94 05/30/24 07:59 O2 Del Method Room Air 05/30/24 07:59 BMI result Body Mass Index 31.6 Const: Other: General: AO X 3, no acute distress Resp: CTA bilateral CVS: S1,S2,RRR GI: +BS, NT, no distention Skin: No rash Neuro: motor grossly intact Psych: appropriate affect Objective Data Active Medications Acetaminophen (Acetaminophen 325 Mg Tablet) 975 mg PO Q6H PRN PRN Reason: Pain, Mild (Pain Scale 1-3), fever or headache Last Admin: 05/29/24 17:16 Dose: 975 mg Documented By: KALEB Albuterol Sulfate (Albuterol Sulfate 90 Mcg 8 Gm Inhaler) 2 puff INHALE Q4H PRN PRN Reason: wheezing Apixaban (Apixaban 5 Mg Tablet) 5 mg PO BID [facility] Last Admin: 05/30/24 08:15 Dose: 5 mg Documented By: DERRICK Atorvastatin Calcium (Atorvastatin Calcium 40 Mg Tablet) 40 mg PO BEDTIME [facility] Last Admin: 05/29/24 21:06 Dose: 40 mg Documented By: ROGER Calcium Carbonate (Calcium Carbonate 750 Mg Tab.Chew) 750 mg PO Q4H PRN PRN Reason: Heartburn Ceftriaxone Sodium (Ceftriaxone Sodium 1 Gm Vial) 1 gm IVPUSH Q24H [facility] Last Admin: 05/30/24 08:14 Dose: 1 gm Documented By: DERRICK Duloxetine HCl (Duloxetine Hcl 20 Mg Capsule.Dr) 20 mg PO BEDTIME [facility] Last Admin: 05/29/24 21:06 Dose: 20 mg Documented By: ROGER Furosemide (Furosemide 40 Mg Tablet) 40 mg PO DAILY [facility]; Protocol Last Admin: 05/30/24 08:19 Dose: Not Given Documented By: DERRICK Non-Admin Reason: Decreased Blood Pressure Gabapentin (Gabapentin 300 Mg Capsule) 300 mg PO BID [facility] Last Admin: 05/30/24 08:14 Dose: 300 mg Documented By: DERRICK Gabapentin (Gabapentin 400 Mg Capsule) 400 mg PO BID [facility] Last Admin: 05/30/24 08:14 Dose: 400 mg Documented By: DERRICK Lactated Ringer's (Lr) 1,000 mls @ 75 mls/hr IVCONT .[id number] [facility] Last Infusion: 05/30/24 06:15 Dose: 0 mls/hr Documented By: ROGER Isosorbide Mononitrate (Isosorbide Mononitrate 30 Mg Tab.Er.24h) 30 mg PO DAILY [facility]; Protocol Last Admin: 05/30/24 08:19 Dose: Not Given Documented By: DERRICK Non-Admin Reason: Decreased Blood Pressure Isosorbide Mononitrate (Isosorbide Mononitrate 60 Mg Tab.Er.24h) 60 mg PO BID [facility]; Protocol Last Admin: 05/30/24 08:20 Dose: Not Given Documented By: DERRICK Non-Admin Reason: Decreased Blood Pressure Metoprolol Succinate (Metoprolol Succinate Er 25 Mg Tab.Er.24h) 25 mg PO DAILY [facility]; Protocol Last Admin: 05/30/24 08:20 Dose: Not Given Documented By: DERRICK Non-Admin Reason: Decreased Blood Pressure Metronidazole (Metronidazole 500 Mg Tablet) 500 mg PO Q8H [facility] Nitroglycerin (Nitroglycerin 0.4 Mg Tab.Subl) 0.4 mg SUBLINGUAL Q5M PRN PRN Reason: Chest Pain Non-Formulary Medication (Budesonide) 9 mg PO DAILY [facility] Ondansetron HCl (Ondansetron Hcl 4 Mg/2 Ml Vial) 4 mg IVPUSH Q8H PRN PRN Reason: Nausea and Vomiting Last Admin: 05/28/24 15:53 Dose: 4 mg Documented By: EVELIN Oxycodone HCl (Oxycodone Hcl Immed Release 5 Mg Tablet) 5 mg PO BID PRN PRN Reason: Pain (Scale Score 4-6) Last Admin: 05/28/24 11:48 Dose: 5 mg Documented By: ANGELA Ropinirole HCl (Ropinirole Hcl 1 Mg Tablet) 1 mg PO BEDTIME [facility] Last Admin: 05/29/24 21:06 Dose: 1 mg Documented By: ROGER Ropinirole HCl (Ropinirole Hcl 0.5 Mg Tablet) 0.5 mg PO BID@1200,1800 [facility] Last Admin: 05/29/24 17:05 Dose: 0.5 mg Documented By: KALEB Sodium Chloride (0.9 % Sodium Chloride Flush 3 Ml Syringe) 3 ml IVFLUSH QSHIFT [facility] Last Admin: 05/30/24 07:37 Dose: Not Given Documented By: DERRICK Non-Admin Reason: IV Running Spironolactone (Spironolactone 25 Mg Tablet) 25 mg PO BID [facility]; Protocol Last Admin: 05/30/24 08:20 Dose: Not Given Documented By: DERRICK Non-Admin Reason: Decreased Blood Pressure Labs 05/30/24 05:25 05/30/24 05:25 Labs: Laboratory Results - last 24 hr 05/30/24 05:25 MCV 86.7 MCH 27.5 MCHC 31.7 RDW 18.1 H Plt Count 293 MPV 9.3 L Absolute Nucleated RBC 0.000 Nucleated RBC % (auto) 0.0 Anion Gap 11 L Estim Creat Clear Calc 42.0 Estimated GFR 56 Random Glucose 98 Calcium 8.0 L Microbiology Microbiology Results: Microbiology 05/27/24 22:28 Blood Culture - Preliminary Blood - Venous No growth after 48 hours. 05/27/24 22:27 Blood Culture - Preliminary Blood - Venous No growth after 48 hours. 05/28/24 Unknown Urine Culture - Final Urine clean catch - Clean Catch Midstream Assessment and Plan (1) Pneumonia: Status: Resolved Plan 83-year-old female with a PMH significant for?ulcerative colitis, hx of DVT on Eliquis, HFpEF, restless leg syndrome/sciatica, chronic leg pain on chronic opioids, HLD here with acute diverticulitis Acute diverticulitis--clinically much improved -continue Ceftriaxone + Flagyl--> change to PO if tolerates diet -IVF, advance to soft diet Hyperlipidemia. Continue atorvastatin. Essential hypertension. Blood pressure is on low side so hold BP meds ( metoprolol, imdur, aldactone) HFpEF Lasix, hold d/t low bp Hypokalemia-oral replacement Restless leg--requip UC. Taking azathioprine, will hold due to acute infection. h/o DVT. Continue Eliquis. Quality Stroke Does the patient have a stroke diagnosis?: No VTE Prior VTE?: No VTE Risk Level:: Medical - moderate - high VTE Device Contraindication: Treatment Not Indicated VTE Drug Contraindication: N/A - Med Ordered
[2024-05-30 10:47] VITALS: BP 111/56; PULSE 79; RESP 16
[2024-05-30] MEDS: rOPINIRole HCL 0.5 MG TABLET PO ×2 (11:25→17:52)
[2024-05-30] MEDS: Lactated Ringers 1,000 ML 75 ML IVCONT ×2 (11:25→22:47)
[2024-05-30 14:08] VITALS: BP 111/56; PULSE 79
[2024-05-30 15:19] VITALS: BP 118/59; PULSE 83; RESP 18; TEMP 37.1; O2SAT 92
[2024-05-30] MEDS: metroNIDAZOLE 500 MG TABLET PO ×2 (15:54→22:42)
[2024-05-30] MEDS: 0.9 % Sodium Chloride Flush 3 ML SYRINGE IVFLUSH (15:56)
--- NOTE | 2024-05-30 16:07 | MHC.CM.PN ---
CM MET WITH AND SPOKE TO PTS DAUGHTER VIA T/C TO DISCUSS DC PLANNING PT STATES SHE DOES NOT FEEL READY TO DC TODAY, AND ALSO NOTES SHE IS NOT INTERESTED IN STR PTS DAUGHTER, DONY, ALSO CONFIRMS PT HAS USED ALL OF HER MEDICARE DAYS SO STR WOULD NOT BE COVERED PT WAS ACTIVE WITH [employer], SHE WILL NEED NEW F2F ORDERS AT DC DAUGHTER WILL TRANSPORT. DAUGHTER ALSO ASKS THAT PT RECEIVE EDUCATION AROUND WHAT SHE SHOULD BE EATING AND WORRIES THAT HER DIET SHOULD STILL BE BLAND CONCERNS RELAYED TO
[2024-05-30 19:15] VITALS: BP 121/61; PULSE 88; RESP 18; TEMP 36.6; O2SAT 92
[2024-05-30] MEDS: DULoxetine HCl 20 MG CAPSULE.DR PO (19:37)
[2024-05-30] MEDS: rOPINIRole HCL 1 MG TABLET PO (19:37)
[2024-05-30] MEDS: Isosorbide Mononitrate 60 MG TAB.ER.24H PO (19:37)
[2024-05-30] MEDS: Atorvastatin Calcium 40 MG TABLET PO (19:38)
[2024-05-30] MEDS: Spironolactone 25 MG TABLET PO (19:38)
[2024-05-31 03:22] VITALS: BP 113/60; PULSE 79; RESP 18; TEMP 36.6; O2SAT 93
[2024-05-31] MEDS: metroNIDAZOLE 500 MG TABLET PO (06:03)
[2024-05-31 07:54] VITALS: BP 115/56; PULSE 79; RESP 16; TEMP 36.5; O2SAT 92
--- NOTE | 2024-05-31 08:09 | HO.PM.IMPN ---
Subjective Subjective Date of Service: 05/31/24 Interval History: f/u on acute diverticulitis and abdominal pain She is feeling much better today and desires regular food blood pressure is on low side but assymptomatic Physical Exam Vital Signs: Vital Signs: Last Vital Signs Temp 97.7 F 05/31/24 07:54 Pulse 79 05/31/24 07:54 Resp 16 05/31/24 07:54 BP 115/56 L 05/31/24 07:54 Pulse Ox 92 05/31/24 07:54 O2 Del Method Room Air 05/31/24 07:54 BMI result Body Mass Index 31.6 Const: Other: General: AO X 3, no acute distress Resp: CTA bilateral CVS: S1,S2,RRR GI: +BS, NT, no distention Skin: No rash Neuro: motor grossly intact Psych: appropriate affect Objective Data Active Medications Acetaminophen (Acetaminophen 325 Mg Tablet) 975 mg PO Q6H PRN PRN Reason: Pain, Mild (Pain Scale 1-3), fever or headache Last Admin: 05/29/24 17:16 Dose: 975 mg Documented By: KALEB Albuterol Sulfate (Albuterol Sulfate 90 Mcg 8 Gm Inhaler) 2 puff INHALE Q4H PRN PRN Reason: wheezing Apixaban (Apixaban 5 Mg Tablet) 5 mg PO BID [facility] Last Admin: 05/30/24 19:37 Dose: 5 mg Documented By: DEEPTHI Atorvastatin Calcium (Atorvastatin Calcium 40 Mg Tablet) 40 mg PO BEDTIME [facility] Last Admin: 05/30/24 19:38 Dose: 40 mg Documented By: DEEPTHI Calcium Carbonate (Calcium Carbonate 750 Mg Tab.Chew) 750 mg PO Q4H PRN PRN Reason: Heartburn Ceftriaxone Sodium (Ceftriaxone Sodium 1 Gm Vial) 1 gm IVPUSH Q24H [facility] Last Admin: 05/30/24 08:14 Dose: 1 gm Documented By: DERRICK Duloxetine HCl (Duloxetine Hcl 20 Mg Capsule.) 20 mg PO BEDTIME [facility] Last Admin: 05/30/24 19:37 Dose: 20 mg Documented By: DEEPTHI Furosemide (Furosemide 40 Mg Tablet) 40 mg PO DAILY [facility]; Protocol Last Admin: 05/30/24 08:19 Dose: Not Given Documented By: DERRICK Non-Admin Reason: Decreased Blood Pressure Gabapentin (Gabapentin 300 Mg Capsule) 300 mg PO BID [facility] Last Admin: 05/30/24 19:38 Dose: 300 mg Documented By: DEEPTHI Gabapentin (Gabapentin 400 Mg Capsule) 400 mg PO BID [facility] Last Admin: 05/30/24 19:37 Dose: 400 mg Documented By: DEEPTHI Lactated Ringer's (Lr) 1,000 mls @ 75 mls/hr IVCONT .[id number] [facility] Last Admin: 05/30/24 22:47 Dose: 75 mls/hr Documented By: DEEPTHI Isosorbide Mononitrate (Isosorbide Mononitrate 30 Mg Tab.Er.24h) 30 mg PO DAILY [facility]; Protocol Last Admin: 05/30/24 08:19 Dose: Not Given Documented By: DERRICK Non-Admin Reason: Decreased Blood Pressure Isosorbide Mononitrate (Isosorbide Mononitrate 60 Mg Tab.Er.24h) 60 mg PO BID [facility]; Protocol Last Admin: 05/30/24 19:37 Dose: 60 mg Documented By: DEEPTHI Metoprolol Succinate (Metoprolol Succinate Er 25 Mg Tab.Er.24h) 25 mg PO DAILY [facility]; Protocol Last Admin: 05/30/24 08:20 Dose: Not Given Documented By: DERRICK Non-Admin Reason: Decreased Blood Pressure Metronidazole (Metronidazole 500 Mg Tablet) 500 mg PO Q8H [facility] Last Admin: 05/31/24 06:03 Dose: 500 mg Documented By: DEEPTHI Nitroglycerin (Nitroglycerin 0.4 Mg Tab.Subl) 0.4 mg SUBLINGUAL Q5M PRN PRN Reason: Chest Pain Non-Formulary Medication (Budesonide) 9 mg PO DAILY [facility] Ondansetron HCl (Ondansetron Hcl 4 Mg/2 Ml Vial) 4 mg IVPUSH Q8H PRN PRN Reason: Nausea and Vomiting Last Admin: 05/28/24 15:53 Dose: 4 mg Documented By: EVELIN Oxycodone HCl (Oxycodone Hcl Immed Release 5 Mg Tablet) 5 mg PO BID PRN PRN Reason: Pain (Scale Score 4-6) Last Admin: 05/28/24 11:48 Dose: 5 mg Documented By: ANGELA Ropinirole HCl (Ropinirole Hcl 1 Mg Tablet) 1 mg PO BEDTIME [facility] Last Admin: 05/30/24 19:37 Dose: 1 mg Documented By: DEEPTHI Ropinirole HCl (Ropinirole Hcl 0.5 Mg Tablet) 0.5 mg PO BID@1200,1800 [facility] Last Admin: 05/30/24 17:52 Dose: 0.5 mg Documented By: DERRICK Sodium Chloride (0.9 % Sodium Chloride Flush 3 Ml Syringe) 3 ml IVFLUSH QSHIFT [facility] Last Admin: 05/31/24 07:31 Dose: Not Given Documented By: NATHAN Non-Admin Reason: IV Running Spironolactone (Spironolactone 25 Mg Tablet) 25 mg PO BID [facility]; Protocol Last Admin: 05/30/24 19:38 Dose: 25 mg Documented By: DEEPTHI Labs 05/30/24 05:25 05/30/24 05:25 Assessment and Plan (1) Pneumonia: Status: Resolved Plan 83-year-old female with a PMH significant for?ulcerative colitis, hx of DVT on Eliquis, HFpEF, restless leg syndrome/sciatica, chronic leg pain on chronic opioids, HLD here with acute diverticulitis Acute diverticulitis--clinically much improved -continue Ceftriaxone + Flagyl--> change to PO (Ceftin + Flagyl) -Soft diet Hyperlipidemia. Continue atorvastatin. Essential hypertension. Blood pressure is on low side so hold BP meds ( metoprolol, imdur, aldactone) HFpEF Lasix, hold d/t low bp Hypokalemia-oral replacement Restless leg--requip UC. Taking azathioprine, will hold due to acute infection. PT recommends STR h/o DVT. Continue Eliquis. Quality Stroke Does the patient have a stroke diagnosis?: No VTE Prior VTE?: No VTE Risk Level:: Medical - moderate - high VTE Device Contraindication: Treatment Not Indicated VTE Drug Contraindication: N/A - Med Ordered
[2024-05-31] MEDS: Gabapentin 300 MG CAPSULE PO (09:15)
[2024-05-31] MEDS: Gabapentin 400 MG CAPSULE PO (09:15)
[2024-05-31] MEDS: Apixaban 5 MG TABLET PO (09:15)
[2024-05-31] MEDS: cefTRIAXone sodium 1 GM VIAL IVPUSH (09:16)
[2024-05-31 09:23] VITALS: BP 115/56; PULSE 79
[2024-05-31] MEDS: Metoprolol Succinate ER 25 MG TAB.ER.24H PO (09:23)
[2024-05-31] MEDS: Furosemide 40 MG TABLET PO (09:24)
--- NOTE | 2024-05-31 11:10 | PM.DS ---
DS: Providers Provider Date of Service: 05/31/24 Date of admission: 05/28/24 00:05 Primary care physician: Mick Tatum MD DS: Diagnosis Discharge Diagnosis (1) Pneumonia: Status: Resolved DS: Summary Hospital Course Hospital Course: Chief Complaint: Abdominal pain and diarrhea. Maris Nash is 84 years old woman with past medical history significant for CHF, hypertension, DVT on Eliquis and ulcerative colitis presents to the emergency department complaining of 5 day history of watery nonbloody diarrhea associated with generalized abdominal discomfort, nausea and vomiting x1. She was complaining of chills for denied fever. Her appetite has been poor. She denied any acute urinary symptoms. Denied any cardiopulmonary symptoms. She takes azathioprine. In the ED, she was found to have stable vital signs. Blood workup showed no leukocytosis. Hemoglobin is 11.7 and platelets are normal. There are no electrolyte imbalances. Lactic acid is normal. LFTs are normal. Viral testing is negative for COVID-19, influenza and RSV. Abdomen pelvis CT scan showed acute diverticulitis of of the sigmoid colon without free air or pericolic fluid collection. ED tx: NS 500 mL bolus, levofloxacin 750 mg IV, Flagyl 500 mg IV Hospital course: The patient presented with abdominal pain and diarrhea, and a CT scan confirmed acute diverticulitis. She was treated with IV Ceftriaxone and Flagyl, resulting in a good recovery. Her abdominal pain has resolved, she is afebrile, her WBC count is within normal limits, and she is tolerating a regular diet. Physical Therapy evaluated her and recommended short-term rehabilitation (STR), but she declined. She experienced episodes of low blood pressure, which were not due to sepsis and have since improved. Imdur will be reduced from 60 bid to 30 mg daily as a result. Time Attestation Discharge Coordination Time (in mins): 40 Quality: Safe Use of Opioids Does Pt have an Active Cancer Diagnosis on the Problem List?: No Quality: Stroke Does the patient have a stroke diagnosis?: No Physical Exam Vital Signs: Vital Signs: Last Vital Signs Temp 97.7 F 05/31/24 07:54 Pulse 79 05/31/24 09:23 Resp 16 05/31/24 07:54 BP 115/56 L 05/31/24 09:23 Pulse Ox 92 05/31/24 07:54 O2 Del Method Room Air 05/31/24 07:54 BMI result Body Mass Index 31.6 Const: Other: General: AO X 3, no acute distress Resp: CTA bilateral CVS: S1,S2,RRR GI: +BS, NT, no distention Skin: No rash Neuro: motor grossly intact Psych: appropriate affect DS: Data Data Completed and Pending Labs on day of discharge: Preliminary micro results at discharge 05/27/24 22:28 Blood Culture - Preliminary Blood - Venous No growth after 48 hours. 05/27/24 22:27 Blood Culture - Preliminary Blood - Venous No growth after 48 hours. Discharge Plan Discharge Anticipated Discharge Date/Time: 05/31/24 11:07 Patient Disposition: Home Health Service Discharge Diagnosis: Acute diverticulitis Referrals: Mick Tatum MD [Primary Care Provider] - 1 Week Discharge Medications: New metronidazole 500 mg Tablet 500 mg PO Q8H Qty: 9 0RF cefuroxime axetil 500 mg tablet 500 mg PO BID 3 Days Qty: 6 0RF isosorbide mononitrate 30 mg tablet extended release 24 hr 30 mg PO DAILY Qty: 90 0RF Continued budesonide 3 mg capsule,delayed,extend.release 9 mg PO DAILY Qty: 270 3RF ropinirole 0.5 mg tablet 0.5 mg PO BID@1200,1800 atorvastatin 40 mg tablet 1 tab PO BEDTIME azathioprine 50 mg tablet 50 mg PO BID furosemide 40 mg tablet 40 mg PO DAILY Protocol: Hold for SBP< HOLD for SBP < : 90 duloxetine 20 mg Capsule,Delayed Release(Dr/Ec) 20 mg PO BEDTIME gabapentin 300 mg Capsule 300 mg PO BID Rx Instructions: TAKES WITH 400 MG CAPSULE FOR TOTAL DOSE OF 700 MG isosorbide mononitrate 30 mg Tablet Extended Release 24 Hr 30 mg PO DAILY ropinirole 0.5 mg Tablet 1 mg PO BEDTIME Rx Instructions: administer 1-3 hours before bedtime nitroglycerin 0.4 mg Tablet, Sublingual 0.4 mg SUBLINGUAL Q5M PRN (Reason: Chest Pain) Rx Instructions: do not exceed 3 doses per episode oxycodone 5 mg Tablet 5 mg PO BID PRN (Reason: Pain (Scale Score 4-6)) albuterol sulfate 90 mcg/actuation HFA aerosol inhaler 2 puff inhalation Q4-6H PRN (Reason: wheezing) spironolactone 25 mg tablet 25 mg PO BID metoprolol succinate 25 mg tablet extended release 24 hr 25 mg PO DAILY Eliquis 5 mg tablet 5 mg PO BID gabapentin 400 mg capsule 400 mg PO BID Discontinued isosorbide mononitrate 60 mg tablet extended release 24 hr 60 mg PO BID Discharge Orders: Discharge Order (Routine); Ordered 05/31/24 Ordered By: Krishan Dasilva Diet: Advance to usual diet Activity on Discharge: As tolerated Stand Alone Forms: Patient Portal Discharge page Print Language: Belarusian Care Plan Goals: recovery from diverticulitis Health Concerns: acute diverticulitis diarrhea weakness Plan of Treatment: take cefuroxime and flagyl for diverticulitis eat high fiber diet follow up with your doctor in a week, call for appointment Assessment: see above
--- NOTE | 2024-05-31 11:25 | W.MHC.F2F ---
Service Date Service Date: 05/31/24 Encounter Date of encounter: 05/31/24 Reasons for Services Signs and symptoms assessed: weakness Reason for physical therapy: therapeutic exercises and energy conservation Homebound: Leaving the home is medically contraindicated at this time without the asist of a device and/or another person due th the listed conditions above and below. Reason homebound: weakness related to hospital stay Homebound supporting statement: Homebound due to weakness from hospitalization and therefore needs the assistance of another person Certification: Based on the above findings, I certify that this patient is confined to the home and needs intermittent long-term care, physical therapy and/or speech therapy, or continues to need occupational therapy. The patient is under my care, and I have initiated the establishment of the plan of care. The patient will be followed by a physician who will periodically review the plan of care. Time Spent With Patient Time: Total time managing care of this patient today ____ minutes.
[2024-05-31] MEDS: rOPINIRole HCL 0.5 MG TABLET PO (11:49)
--- NOTE | 2024-05-31 13:10 | MHC.CM.PN ---
PT WILL DC HOME TODAY WITH RESUMPTION OF [facility] SON TO TRANSPORT CM LEFT FOR DAUGHTER/HCP, DONY
== END 2024-05-31 12:36 | disposition home health service (06) | DRG 392 ==
LOC: HO.ED 22:37 → HO.EDOVER 05-28 00:10 → HO.S3 05-28 07:34
PROVIDERS: Physician Assistant Medical; Registered Nurse Emergency; Admitting Provider Internal Medicine; Emergency Provider Emergency Medicine Emergency Medical Services; PCP Family Medicine; Visit Provider Internal Medicine
DX: K57.32 Diverticulitis of large intestine without perforation or abscess without bleeding (principal); K51.90 Ulcerative colitis, unspecified, without complications; I50.32 Chronic diastolic (congestive) heart failure; I11.0 Hypertensive heart disease with heart failure; E78.5 Hyperlipidemia, unspecified; G25.81 Restless legs syndrome; E87.6 Hypokalemia; Z20.822 Contact with and (suspected) exposure to COVID-19; Z86.718 Personal history of other venous thrombosis and embolism; Z79.01 Long term (current) use of anticoagulants; Z79.899 Other long term (current) drug therapy
CPT/HCPCS: 0241U; 36415; 74177; 80048; 80053; 81001; 83605; 83735; 85025; 85027; 87040; 87086; 87493; 87507; 97110; 97162; 99285; J0696; J1644; J1836; J1956; J2405; J7120; Q9967

== ENCOUNTER → 2024-05-28 00:05 | Outpatient (BNV) | payer MEDICARE, SELFPAY | PROVIDERS: Admitting Provider Internal Medicine; Emergency Provider Emergency Medicine Emergency Medical Services; PCP Family Medicine; Visit Provider Internal Medicine | DX: J18.9 Pneumonia, unspecified organism (principal) | CPT/HCPCS: 99223; 99232; G0180 ==

== ENCOUNTER 2024-06-01 14:58 | Emergency (ER) | payer MEDICARE, SELFPAY ==
[2024-06-01 15:24] VITALS: BP 108/59; BP 139/79; PULSE 72; PULSE 86; RESP 18; TEMP 36.5; O2SAT 94; O2SAT 97; BMI 35.2
[2024-06-01 16:11] LABS: MANUAL DIFF FLAG NO
[2024-06-01 16:13] LABS: Basophils Percent Auto 0.6 % (0-2); Eosinophils Absolute Auto 0.1 X10*3/uL (0.0-0.4); Eosinophils Percent Auto 0.9 % (0-4); Hematocrit 33.1 % (37.0-47.0); Hemoglobin 10.8 g/dl (12.0-16.0); Imm Gran Abs Auto 0.07 X10*3/uL (0.00-0.03); Imm Gran Pct Auto 1.1 % (0.0-0.4); Lymphocytes Absolute Auto 0.6 X10*3/uL (1.2-4.9); Lymphocytes Percent Auto 8.6 % (20-40); Mean Corpuscular HGB Conc 32.6 g/dl (31.0-35.0); Mean Corpuscular Hemoglobin 27.8 pg (27.0-33.0); Mean Corpuscular Volume 85.1 fL (80.0-98.0); Mean Platelet Volume 9.2 fL (9.4-12.3); Monocytes Absolute Auto 0.5 X10*3/uL (0.1-1.2); Monocytes Percent Auto 7.6 % (2-11); Neutrophils Absolute Auto 5.2 x10*3/uL (2.0-8.3); Neutrophils Percent Auto 81.2 % (45-73); Platelet Count 368 X10*3/uL (160-400); Red Blood Count 3.89 X10*6/uL (4.20-5.50); Red Cell Distribution Width 18.3 % (11.0-16.0); White Blood Count 6.4 X10*3/uL (4.8-10.8)
[2024-06-01 16:27] LABS: Alanine Aminotransferase 8 U/L (0-31); Albumin Level 2.7 g/dL (3.5-5.0); Alkaline Phosphatase 99 U/L (39-117); Anion Gap 16 (12-20); Aspartate Amino Transferase 53 U/L (5-31); Bilirubin Total 0.5 mg/dL (0.0-1.0); Blood Urea Nitrogen 4 mg/dL (9-16); Calcium 8.8 mg/dL (8.4-10.2); Carbon Dioxide 28 mmol/L (22-29); Chloride 100 mmol/L (96-108); Creatinine Clr Calc Pharmacy 40.1; Estimated Glomerular Filt Rate 50; Glucose Random 131 mg/dL (60-115); Magnesium 1.5 mg/dL (1.6-2.6); Potassium 3.2 mmol/L (3.3-5.1); Sodium 141 mmol/L (135-145); Total Protein 5.7 g/dL (6.5-8.0)
--- NOTE | 2024-06-01 16:45 | ECG_ITS ---
Test Reason : WEAKNESS Blood Pressure : / mmHG Vent. Rate : 074 BPM Atrial Rate : 000 BPM P-R Int : 000 ms QRS Dur : 096 ms QT Int : 406 ms P-R-T Axes : 000 -37 -05 degrees QTc Int : 450 ms Normal sinus rhythm Left axis deviation Possible Lateral infarct , age undetermined Abnormal ECG When compared with ECG of 08-FEB-2024 07:09, Borderline criteria for Lateral infarct are now Present Referred By: Joann Rios Electronically Signed By:Eran Lincoln
--- NOTE | 2024-06-01 16:45 | ED.WEAKNESS ---
HPI - Weakness General Chief complaint: Weakness Stated complaint: UNABLE TO AMBULATE Time Seen by Provider: 06/01/24 16:01 Source: patient Mode of arrival: ambulatory Limitations: no limitations History of Present Illness ED Provider: Dr. Joann Rios HPI Narrative: Patient comes to the emergency room complaining of generalized weakness. Patient was discharged from the hospital yesterday. Patient states that when she got home, she was not able to get up and walk. According to the patient, at baseline she is able to walk with her walker, able to transfer herself from her wheelchair to chair. However, today she was not unable to do so at all. Patient has [facility]NA services, they agree that the patient is too weak to be at home and send her back to the hospital. Patient is looking for short-term rehab. Patient requesting to not be sent to [facility] Related Data Home Medications ?Medication ?Instructions ?Recorded ?Confirmed apixaban 5 mg tablet (Eliquis) 5 mg PO BID 12/02/20 05/28/24 atorvastatin 40 mg tablet 1 tab PO BEDTIME 05/11/21 05/28/24 ropinirole 0.5 mg tablet 0.5 mg PO BID@1200,1800 09/06/22 05/28/24 gabapentin 400 mg capsule 400 mg PO BID 08/31/23 05/28/24 azathioprine 50 mg tablet 50 mg PO BID 12/09/23 05/28/24 furosemide 40 mg tablet 40 mg PO DAILY 02/08/24 05/28/24 albuterol sulfate 90 mcg/actuation 2 puff inhalation Q4-6H PRN 02/09/24 05/28/24 aerosol inhaler wheezing duloxetine 20 mg capsule,delayed 20 mg PO BEDTIME 02/09/24 05/28/24 release gabapentin 300 mg capsule 300 mg PO BID 02/09/24 05/28/24 isosorbide mononitrate 30 mg 30 mg PO DAILY 02/09/24 05/28/24 tablet,extended release 24 hr nitroglycerin 0.4 mg sublingual 0.4 mg sublingual Q5M PRN Chest 02/09/24 05/28/24 tablet Pain oxycodone 5 mg tablet 5 mg PO BID PRN Pain (Scale Score 02/09/24 05/28/24 4-6) ropinirole 0.5 mg tablet 1 mg PO BEDTIME 02/09/24 05/28/24 metoprolol succinate 25 mg 25 mg PO DAILY 05/28/24 05/28/24 tablet,extended release 24 hr spironolactone 25 mg tablet 25 mg PO BID 05/28/24 05/28/24 Previous Rx's ?Medication ?Instructions ?Recorded budesonide 3 mg 9 mg (3 x 3 mg) PO DAILY #270 caps 12/20/23 capsule,delayed,extended release cefuroxime axetil 500 mg tablet 500 mg PO BID 3 days #6 tabs 05/31/24 isosorbide mononitrate 30 mg 30 mg PO DAILY #90 tabs 05/31/24 tablet,extended release 24 hr metronidazole 500 mg tablet 500 mg PO Q8H #9 tabs 05/31/24 Allergies Allergy/AdvReac Type Severity Reaction Status Date / Time dogs, cats etc.. Allergy Unknown Unknown Uncoded 06/01/24 15:26 barium Allergy Hives Uncoded 06/01/24 15:26 Review of Systems Review of Systems: Constitutional : No Weight loss, No Fever, No Chills, No Night Sweats, No Fatigue, No Malaise, complaining of muscular weakness after being in the hospital ENT/Mouth : No Hearing loss, No Ear Pain, No Nasal Congestion, No Sinus Pain, No Hoarseness, No sore throat, No Rhinorrhea, No Swallowing Difficulty Eyes: No Eye Pain, No Swelling, No Redness, No Foreign Body, No Discharge, No Vision Changes Cardiovascular : No Chest Pain, No SOB, No Dyspnea on Exertion, No Orthopnea, No Edema, No Palpitations Respiratory : No Cough, No Sputum, No Wheezing, No Smoke Exposure, No Dyspnea Gastrointestinal : No Nausea, No Vomiting, No Diarrhea, No Constipation, No abdominal Pain, No Hematochezia, No Melena Genitourinary : no irregular bleeding, No Dysuria, No Urinary Frequency, No Hematuria, No Urinary Incontinence, No Urgency, No Flank Pain, No Urinary Flow Changes, No Hesitancy Musculoskeletal : No joint pain, No Myalgias, No Joint Swelling Skin : No Skin Lesions, No rash Neuro : No Weakness, No Numbness, No Paresthesias, No Loss of Consciousness, No Dizziness, No Headache Psych : No Anxiety/Panic, No Depression, No SI/HI/AH/VH, No Social Issues, Heme/Lymph: No Bruising, No Bleeding,No Lymphadenopathy Endocrine : No Polyuria, No Polydipsia, No Temperature Intolerance PENDING SALE TO [facility] Past Medical History Medical History History of CHF (congestive heart failure) Constipation Acute proctitis Hemorrhoids Spinal abscess Restless leg syndrome HTN (hypertension) Pre-diabetes DVT (deep venous thrombosis) Colitis Ulcerative colitis Surgical History Hx of shoulder surgery Social History Social History Household Members: Other Household Members Other:: son Housing: House Do you presently have visiting nurse or other home services: Yes Unable to assess alcohol history related to: Unable to respond Alcohol intake: never Patient Tobacco Use Status: Never used Tobacco Advance Directives: Yes Advance Directives on File: Yes Advance Directives Date on File: 11/16/22 service: No Current occupational status: retired Physical Exam Vital Signs: Vital Signs: Last Vital Signs Temp 97.7 F 06/01/24 15:24 Pulse 72 06/01/24 15:24 Resp 18 06/01/24 15:24 BP 108/59 L 06/01/24 15:24 Pulse Ox 97 06/01/24 15:24 O2 Del Method Room Air 06/01/24 15:24 BMI result Body Mass Index 35.2 Const: Other: Appearance: Alert. Oriented X3. No acute distress. Eyes: Pupils equal, round and reactive to light. ENT: Pharynx normal. Neck: Normal inspection. Neck supple. No lymph nodes noted. No crepitus CVS: Normal heart rate and rhythm. Pulses normal. Normal S1 and S2 Respiratory: No respiratory distress. Breath sounds normal. No Wheezing. No rales Abdomen: Soft and nontender. No rigidity. No distention. Skin: Skin warm and dry. Patient has diffuse bruising throughout upper and lower extremities Extremities: No lower extremity edema. No Lacerations. No Rash Neuro: Oriented X 3. No motor deficit. No sensory deficit. Moving all extremities. No slurred speech. CN 2 through 12 grossly intact Psych: calm, cooperative, normal affect Medications Administered Discontinued Medications Generic Name Dose Route Start Last Admin Trade Name Freq PRN Reason Stop Dose Admin Potassium Chloride 40 meq 06/01/24 16:43 06/01/24 17:31 Potassium Chloride Packet 20 Meq Packet PO 06/01/24 16:44 40 meq ONCE ONE Administration Medical Decision Making Medical Decision Making [facility] Narrative: My interpretation of labs: Patient's potassium 3.2, sodium otherwise normal, hematology does not show any acute abnormality. At baseline -my interpretation of EKG: Sinus rhythm, heart rate 74, no ST segment depression or elevation, no T-wave inversion, QTC 450 -urinalysis negative for UTI -COVID test negative -patient requesting PT/case management consult. Patient states that she would not want to go back to [facility] Differential Diagnosis Differential Diagnoses: The differential diagnosis associated with the presentation includes (Acute decompensation, UTI, viral illness) Admission/Observation Consideration of admission/observation: Escalation of care including admission/observation considered (Patient will be staying in the emergency room waiting for PT/case management consult. Patient will need placement) Lab Data [facility] Lab Attestation statement: I reviewed the patient's lab results. 06/01/24 16:06 06/01/24 16:06 Labs: Lab Results 06/01/24 06/01/24 06/01/24 Range/Units 16:06 17:02 17:26 WBC 6.4 (4.8-10.8) X10*3/uL RBC 3.89 L (4.20-5.50) X10*6/uL Hgb 10.8 L (12.0-16.0) g/dl Hct 33.1 L (37.0-47.0) % MCV 85.1 (80.0-98.0) fL MCH 27.8 (27.0-33.0) pg MCHC 32.6 (31.0-35.0) g/dl RDW 18.3 H (11.0-16.0) % Plt Count 368 D (160-400) X10*3/uL MPV 9.2 L (9.4-12.3) fL Immature Gran % (Auto) 1.1 H (0.0-0.4) % Neut % (Auto) 81.2 H (45-73) % Lymph % (Auto) 8.6 L (20-40) % [place] % (Auto) 7.6 (2-11) % Eos % (Auto) 0.9 (0-4) % Baso % (Auto) 0.6 (0-2) % Lymph # (Auto) 0.6 L (1.2-4.9) X10*3/uL [place] # (Auto) 0.5 (0.1-1.2) X10*3/uL Eos # (Auto) 0.1 (0.0-0.4) X10*3/uL Baso # (Auto) 0.0 (0.0-0.2) X10*3/uL Abs Immat Gran (auto) 0.07 H (0.00-0.03) X10*3/uL Absolute Neuts (auto) 5.2 (2.0-8.3) x10*3/uL Absolute Nucleated RBC 0.000 (0.0-0.012) X10*3/uL Nucleated RBC % (auto) 0.0 (0.0-0.2) /100WBC Sodium 141 (135-145) mmol/L Potassium 3.2 L (3.3-5.1) mmol/L Chloride 100 (96-108) mmol/L Carbon Dioxide 28 (22-29) mmol/L Anion Gap 16 (12-20) BUN 4 L (9-16) mg/dL Creatinine 1.05 (0.5-1.4) mg/dL Estim Creat Clear Calc 40.1 Estimated GFR 50 Random Glucose 131 H (60-115) mg/dL Calcium 8.8 D (8.4-10.2) mg/dL Magnesium 1.5 L (1.6-2.6) mg/dL Total Bilirubin 0.5 (0.0-1.0) mg/dL AST 53 H (5-31) U/L ALT 8 (0-31) U/L Alkaline Phosphatase 99 (39-117) U/L B-Natriuretic Peptide 75 (<100) pg/mL Total Protein 5.7 L (6.5-8.0) g/dL Albumin 2.7 L (3.5-5.0) g/dL Urine Color Yellow Urine Appearance Clear Urine pH 5.5 (5.0-9.0) Ur Specific [place] <= 1.005 (1.005-1.025) Urine Protein Negative (Neg-Trace) mg/dL Urine Glucose (UA) Negative (Negative) mg/dL Urine Ketones Negative (Negative) mg/dL Urine Blood Negative (Negative) Urine Nitrite Negative (Negative) Ur Leukocyte Esterase Moderate (2+) H (Negative) Urine RBC 0-2 (0-2) /HPF Urine WBC 0-5 (0-5) /HPF Ur Squamous Epith Cells 0-2 (0-2) /HPF Urine Bacteria None Seen (None Seen) Hyaline Casts 0-2 (0-2) /LPF COVID-19 ([facility]KENNA) Negative (Negative) COVID-19 Clin Com See Note Critical Care Time Critical Care Time Critical Care Time: Yes Total Critical Care Time: 30 Attestation: I have personally provided critical care time. Time includes review of lab data, radiology results, discussion with consultants, and monitoring for potential decompensation. Intervention performed as documented. Discharge Plan Discharge Clinical Impression: Weakness Patient Disposition: Still a Patient Prescriptions: No Action budesonide 3 mg capsule,delayed,extend.release 9 mg PO DAILY Qty: 270 3RF ropinirole 0.5 mg tablet 0.5 mg PO BID@1200,1800 atorvastatin 40 mg tablet 1 tab PO BEDTIME azathioprine 50 mg tablet 50 mg PO BID furosemide 40 mg tablet 40 mg PO DAILY Protocol: Hold for SBP< HOLD for SBP < : 90 duloxetine 20 mg Capsule,Delayed Release(Dr/Ec) 20 mg PO BEDTIME gabapentin 300 mg Capsule 300 mg PO BID Rx Instructions: TAKES WITH 400 MG CAPSULE FOR TOTAL DOSE OF 700 MG isosorbide mononitrate 30 mg Tablet Extended Release 24 Hr 30 mg PO DAILY ropinirole 0.5 mg Tablet 1 mg PO BEDTIME Rx Instructions: administer 1-3 hours before bedtime nitroglycerin 0.4 mg Tablet, Sublingual 0.4 mg SUBLINGUAL Q5M PRN (Reason: Chest Pain) Rx Instructions: do not exceed 3 doses per episode oxycodone 5 mg Tablet 5 mg PO BID PRN (Reason: Pain (Scale Score 4-6)) albuterol sulfate 90 mcg/actuation HFA aerosol inhaler 2 puff inhalation Q4-6H PRN (Reason: wheezing) spironolactone 25 mg tablet 25 mg PO BID metoprolol succinate 25 mg tablet extended release 24 hr 25 mg PO DAILY metronidazole 500 mg Tablet 500 mg PO Q8H Qty: 9 0RF cefuroxime axetil 500 mg tablet 500 mg PO BID 3 Days Qty: 6 0RF isosorbide mononitrate 30 mg tablet extended release 24 hr 30 mg PO DAILY Qty: 90 0RF Eliquis 5 mg tablet 5 mg PO BID gabapentin 400 mg capsule 400 mg PO BID Print Language: Irish
[2024-06-01 17:13] LABS: Appearance Urine Clear; Color Urine Yellow; Glucose Urine UA Negative (Negative); Leukocyte Esterase Urine Moderate (2+) (Negative); Nitrite Urine Negative (Negative); PH 5.5 (5.0-9.0); Specific Gravity - Urine <= 1.005 (1.005-1.025); UMIC TRIGGER UACC YES; Urine Blood Negative (Negative); Urine Ketones Negative (Negative); Urine Protein Negative (Neg-Trace)
[2024-06-01] MEDS: Potassium Chloride Packet 20 MEQ PACKET 40 MEQ PO (17:31)
[2024-06-01 17:32] LABS: Bacteria Urine None Seen (None Seen); Hyaline Casts Urine 0-2 /LPF (0-2); RBC Urine 0-2 /HPF (0-2); Squamous Epithelial Cell Urine 0-2 /HPF (0-2); WBC Urine 0-5 /HPF (0-5)
[2024-06-01 17:48] LABS: COVID-19 Test Negative (Negative); IDNOW Serial# 08D9AD1C
[2024-06-01 18:03] LABS: B Type Natriuretic Peptide 75 pg/mL (<100)
[2024-06-01 18:40] VITALS: BP 119/68; PULSE 92; RESP 37; TEMP 36.8; O2SAT 94
[2024-06-01 20:00] VITALS: RESP 16
[2024-06-01 22:37] VITALS: BP 122/60; PULSE 90; RESP 16; TEMP 36.9; O2SAT 95
--- NOTE | 2024-06-01 23:24 | PC.NURSE ---
[facility] req completed with ptUriel
[2024-06-02] MEDS: Gabapentin 300 MG CAPSULE PO ×2 (02:02→08:12)
[2024-06-02] MEDS: Gabapentin 400 MG CAPSULE PO ×2 (02:02→08:12)
[2024-06-02] MEDS: Spironolactone 25 MG TABLET PO ×2 (02:02→08:12)
[2024-06-02] MEDS: metroNIDAZOLE 500 MG TABLET PO ×2 (02:02→08:11)
[2024-06-02] MEDS: Atorvastatin Calcium 40 MG TABLET PO (02:03)
[2024-06-02] MEDS: DULoxetine HCl 20 MG CAPSULE.DR PO (02:03)
[2024-06-02] MEDS: rOPINIRole HCL 1 MG TABLET PO (02:03)
[2024-06-02 06:27] VITALS: BP 133/68; PULSE 88; RESP 12; TEMP 36.6; O2SAT 94
[2024-06-02 08:11] VITALS: BP 124/54
[2024-06-02] MEDS: Isosorbide Mononitrate 30 MG TAB.ER.24H PO (08:11)
[2024-06-02] MEDS: cefuroxime axetiL 500 MG TABLET PO (08:11)
[2024-06-02 08:12] VITALS: BP 124/54; PULSE 88
[2024-06-02] MEDS: Apixaban 5 MG TABLET PO (08:12)
[2024-06-02] MEDS: Furosemide 40 MG TABLET PO (08:12)
[2024-06-02] MEDS: Metoprolol Succinate ER 25 MG TAB.ER.24H PO (08:12)
--- NOTE | 2024-06-02 08:15 | PC.NURSE ---
this nurse took over patient care at 7am, patient currently a&ox3, vitals stable, rr equal/non labored, BLE 3- edema- ecchymosis noted to arms/legs, pt also has a small dressing c/d/i to lle which she states was a scratch. rr equal/non labored, lungs clear upper, diminished lower, pure wick intact, call gustafson within reach, will continue plan of care.
--- NOTE | 2024-06-02 09:22 | PC.NURSE ---
pharmacy called for missing medication
--- NOTE | 2024-06-02 09:22 | PC.NURSE ---
per dr. messer the [facility] drip is to continue.
--- NOTE | 2024-06-02 09:37 | MHC.EDTECH ---
AM care done , bed change, breakfasts 100% RN aware.
[2024-06-02] MEDS: azaTHIOprine 50 MG TABLET PO (10:18)
--- NOTE | 2024-06-02 10:27 | PC.NURSE ---
report given to gabriel on overflow
--- NOTE | 2024-06-02 11:19 | MHC.CM.ED ---
Addendum entered by Park Sims 06/02/24 12:01: Patient can leave at 2pm. Franko OWENS booked. [facility] with chart. Patient , daughter Lashon, Gina RN and Myrna BETHEA aware. Original Note: Received case management consult overnight. Patient came to the ER due to difficulty ambulating. Patient was d/c'd home from [facility] 05/31/2024 with resumption of [facility]. Physical therapy eval completed. Short term rehab is recommended. Referral made to all 3 acute rehab facilities. No acute rehab bed offers. Referral broadcasted to all SNF facilities within 15 miles. The following facilities are able to offer a bed: [facility], [facility], [facility], [facility] [place], [facility] [address], [facility], [facility], [facility], [facility] and [facility]. Patient and daughter, Lashon, state patient has been to [facility] and [facility] and did not like the care that was provided to patient. Patient and Lashon accept bed at [facility]. Facility made aware. Waiting for time for patient to transfer to facility. Continue to monitor for d/c needs.
[2024-06-02] MEDS: rOPINIRole HCL 0.5 MG TABLET PO (12:19)
[2024-06-02 14:01] VITALS: BP 108/54; PULSE 76; RESP 17; TEMP 36.4; O2SAT 94
== END 2024-06-02 14:02 ==
PROVIDERS: Physician Assistant Medical; Emergency Provider Emergency Medicine; PCP Family Medicine
DX: R53.1 Weakness (principal); R26.81 Unsteadiness on feet; R94.31 Abnormal electrocardiogram [ECG] [EKG]; Z11.52 Encounter for screening for COVID-19; Z79.899 Other long term (current) drug therapy
CPT/HCPCS: 36415; 80053; 81001; 83735; 83880; 85025; 87635; 93005; 97162; 99285

== ENCOUNTER → 2024-06-01 16:45 | Outpatient (BNV) | payer MEDICARE, SELFPAY | PROVIDERS: Emergency Provider Emergency Medicine; PCP Family Medicine; Visit Provider Internal Medicine Cardiovascular Disease | DX: R94.31 Abnormal electrocardiogram [ECG] [EKG] (principal) | CPT/HCPCS: 93010 ==

== ENCOUNTER 2024-06-19 19:15 | Emergency (ER) | payer MEDICARE, SELFPAY ==
[2024-06-19 19:18] VITALS: BP 126/62; BP 127/63; PULSE 74; PULSE 80; RESP 17; TEMP 36.6; O2SAT 92; O2SAT 95; BMI 38.4
--- NOTE | 2024-06-19 19:41 | ED.LOWEXIN ---
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 Patient states that her son was assisting her into a vehicle after Thanksgiving dinner when her skin ripped open. She is unsure if she hit the leg on an object or if her son's hand tore it. Her tetanus is up-to-date. Reports taking her Eliquis daily. No other complaints at present. Related Data Home Medications ?Medication ?Instructions ?Recorded ?Confirmed apixaban 5 mg tablet (Eliquis) 5 mg PO BID 12/02/20 06/01/24 atorvastatin 40 mg tablet 1 tab PO BEDTIME 05/11/21 06/01/24 ropinirole 0.5 mg tablet 0.5 mg PO BID@1200,1800 09/06/22 06/01/24 gabapentin 400 mg capsule 400 mg PO BID 08/31/23 06/01/24 azathioprine 50 mg tablet 50 mg PO BID 12/09/23 06/01/24 furosemide 40 mg tablet 40 mg PO DAILY 02/08/24 06/01/24 albuterol sulfate 90 mcg/actuation 2 puff inhalation Q4-6H PRN 02/09/24 06/01/24 aerosol inhaler wheezing duloxetine 20 mg capsule,delayed 20 mg PO BEDTIME 02/09/24 06/01/24 release gabapentin 300 mg capsule 300 mg PO BID 02/09/24 06/01/24 isosorbide mononitrate 30 mg 30 mg PO DAILY 02/09/24 06/01/24 tablet,extended release 24 hr nitroglycerin 0.4 mg sublingual 0.4 mg sublingual Q5M PRN Chest 02/09/24 06/01/24 tablet Pain oxycodone 5 mg tablet 5 mg PO BID PRN Pain (Scale Score 02/09/24 06/01/24 4-6) ropinirole 0.5 mg tablet 1 mg PO BEDTIME 02/09/24 06/01/24 metoprolol succinate 25 mg 25 mg PO DAILY 05/28/24 06/01/24 tablet,extended release 24 hr spironolactone 25 mg tablet 25 mg PO BID 05/28/24 06/01/24 Previous Rx's ?Medication ?Instructions ?Recorded budesonide 3 mg 9 mg (3 x 3 mg) PO DAILY #270 caps 12/20/23 capsule,delayed,extended release cefuroxime axetil 500 mg tablet 500 mg PO BID 3 days #6 tabs 05/31/24 metronidazole 500 mg tablet 500 mg PO Q8H #9 tabs 05/31/24 oxycodone 5 mg tablet 5 mg PO Q8H PRN pain (scale score 06/02/24 4-6) 3 days #12 tabs Allergies Allergy/AdvReac Type Severity Reaction Status Date / Time dogs, cats etc.. Allergy Unknown Unknown Uncoded 06/19/24 19:31 barium Allergy Hives Uncoded 06/19/24 19:31 Review of Systems Review of Systems: Constitutional: No fever, chills, fatigue, night sweats, weight changes ENT/Mouth: No ear pain, hearing loss, nasal congestion, sinus pain, rhinorrhea, sore throat Eyes: No eye pain, swelling, redness, vision changes, discharge Cardio: No chest pain, palpitations, BOUCHER, orthopnea, peripheral edema Pulm: No SOB, cough, sputum, wheezing, dyspnea, hemoptysis GI: No nausea, vomiting, hematemesis, abdominal pain, diarrhea, constipation, hematochezia, melena : No irregular bleeding, dysuria, frequency, urgency, hesitancy, hematuria, flank pain, urinary flow changes, urinary incontinence or retention MSK: No back pain, neck pain, joint pain, myalgias Skin: No lesions, rashes, +skin tear Neuro: No weakness, numbness, paresthesias, LOC, dizziness, headache Psych: No anxiety/panic, depression, SI/HI, AH/VH All other systems reviewed and are negative. [facility] Past Medical History Attestation statement: The following information was validated with the patient. Source: old records reviewed and nursing notes reviewed Medical History History of CHF (congestive heart failure) Constipation Acute proctitis Hemorrhoids Spinal abscess Restless leg syndrome HTN (hypertension) Pre-diabetes DVT (deep venous thrombosis) Colitis Ulcerative colitis Surgical History Hx of shoulder surgery Social History Social History Household Members: Other Household Members Other:: son Housing: House Do you presently have visiting nurse or other home services: Yes Unable to assess alcohol history related to: Unable to respond Alcohol intake: never Patient Tobacco Use Status: Never used Tobacco Smoked in Last 30 Days: No Use of substances other than those prescribed or required for medical reasons: No Advance Directives: Yes Advance Directives on File: Yes Advance Directives Date on File: 11/16/22 Do you have a plan to hurt others: No Plan service: No Current occupational status: retired Physical Exam Vital Signs: Vital Signs: Last Vital Signs Temp 98.9 F 06/19/24 22:23 Pulse 88 06/19/24 22:23 Resp 17 06/19/24 22:23 BP 138/88 06/19/24 22:23 Pulse Ox 93 06/19/24 22:23 O2 Del Method Room Air 06/19/24 22:23 BMI result Body Mass Index 38.4 vital signs stable General: Well appearing, in no acute distress. Skin: see below Head: Normocephalic, atraumatic. Cardiac: Chest wall symmetric. RRR Lungs: Normal respiratory effort without accessory muscle use. CTA bilaterally Ext: +see below of right díaz. 2+ pitting edema. Neuro: AOx3. Normal speech. Ambulating with steady gait assisted by cane. Psych: Appropriate mood and affect. Responds appropriately to questions. Course Course Course Narrative: Skin tear to right díaz irrigated with saline and iodine. noted surrounding ecchymosis. bleeding controlled. repaired with benzoin and steri strips. patient tolerated procedure well. oxycodone given for pain control. Patient has remained stable throughout ED visit today. Discussed worrisome signs and symptoms and when to return to the ED. All questions answered at this time. Patient is agreeable with disposition and stable for discharge. 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 vital signs stable. She is nontoxic appearing in no acute distress. Please see physical exam portion for findings. Differential diagnosis includes abrasion, skin tear, laceration Plan for repair, pain control, discharge. Differential Diagnosis Differential Diagnoses: The differential diagnosis associated with the presentation includes As above Admission/Observation Not indicated Independent Historian Clinical information obtained from an independent historian. History obtained from or confirmed by: EMS External Record Review External record reviewed: Inpatient record Chronic Conditions Patient?s care impacted by: Other (Chronic anticoagulation) Social Determinants Patient?s care significantly limited by Social Determinants of Health including: Other Social Determinant of Health Procedures Laceration Laceration 1: Site: lower extremity Side (If applicable): right Size (cm): 10 Description: irregular Depth: simple, single layer Pre-repair: wound explored, irrigated extensively and deep structures intact Skin layer closed with: other (steristrips) Critical Care Time Critical Care Time Critical Care Time: No Discharge Plan Discharge Clinical Impression: Skin tear of right lower leg without complication Patient Disposition: Home, Self-Care Instructions: Laceration (ED), Skin Adhesive Care (ED), Steristrips (ED) Additional Instructions: You were evaluated in the ED today for a skin tear. This was repaired with Steri-Strips. Leave the Steri-Strips intact until they fall off. Change dressings regularly. Please have your visiting nurse evaluate the area for signs of infection such as surrounding redness, drainage from the area, warmth, fevers. Please return with new or worsening symptoms. In the case of an emergency call 911. Prescriptions: No Action budesonide 3 mg capsule,delayed,extend.release 9 mg PO DAILY Qty: 270 3RF ropinirole 0.5 mg tablet 0.5 mg PO BID@1200,1800 atorvastatin 40 mg tablet 1 tab PO BEDTIME oxycodone 5 mg tablet 5 mg PO Q8H PRN (Reason: pain (scale score 4-6)) 3 Days Qty: 12 0RF Rx Instructions: Partial Fill upon patient request. azathioprine 50 mg tablet 50 mg PO BID furosemide 40 mg tablet 40 mg PO DAILY Protocol: Hold for SBP< HOLD for SBP < : 90 duloxetine 20 mg Capsule,Delayed Release(Dr/Ec) 20 mg PO BEDTIME gabapentin 300 mg Capsule 300 mg PO BID Rx Instructions: TAKES WITH 400 MG CAPSULE FOR TOTAL DOSE OF 700 MG isosorbide mononitrate 30 mg Tablet Extended Release 24 Hr 30 mg PO DAILY ropinirole 0.5 mg Tablet 1 mg PO BEDTIME Rx Instructions: administer 1-3 hours before bedtime nitroglycerin 0.4 mg Tablet, Sublingual 0.4 mg SUBLINGUAL Q5M PRN (Reason: Chest Pain) Rx Instructions: do not exceed 3 doses per episode oxycodone 5 mg Tablet 5 mg PO BID PRN (Reason: Pain (Scale Score 4-6)) albuterol sulfate 90 mcg/actuation HFA aerosol inhaler 2 puff inhalation Q4-6H PRN (Reason: wheezing) spironolactone 25 mg tablet 25 mg PO BID metoprolol succinate 25 mg tablet extended release 24 hr 25 mg PO DAILY metronidazole 500 mg Tablet 500 mg PO Q8H Qty: 9 0RF cefuroxime axetil 500 mg tablet 500 mg PO BID 3 Days Qty: 6 0RF Eliquis 5 mg tablet 5 mg PO BID gabapentin 400 mg capsule 400 mg PO BID Interventions: ED Discharge Assessment Last Done: 06/19/24 22:23 Discharge Date/Time: 06/19/24 22:24 Print Language: Frisian
--- OUTSIDE RECORDS SUMMARY | 2024-06-19 19:51 | XMS_ITS | Continuity of Care Document ---
Author Organization [facility] Jose lt Address [address] [place] [address]- Care Team Providers Care Health Care Assistant Name Role Phone Rc CORDERO, Mick Clay Primary Care Physician Encounter [facility] Date(s): 05/15/24 - 06/14/24 [facility] [address] [place] [address]- Encounter Type: Triage Allergies, Adverse Reactions, Alerts Substance Criticality Severity Reaction Reaction Severity Status amoxicillin 1 Active Dust Active Other Environmental Allergy 2 Active Benadryl Shaking Active Cats Active Contrast Dye Active egg-containing compound 3 Resolved Other Food Allergy 4 chicken , peppers, onions Resolved 1Tolerates ceftriaxone 2trees, roses [...] (Td) 6 07/23/96 Recorde d 1Result Comment: [facility]: [id number]. Screening Checklist reviewed with patient. Negative for any contraindications. 2Result Comment: [id number] 3Location History: DR LOAIZA 4Location History: DR LOAIZA 5Location History: DR LOAIZA 6Location History: DR LOAIZA Medications atorvastatin 40 mg oral tablet 1 tablet, By Mouth, Daily at bedtime, # 90 tablet, 1 Refills, Maintenance, 10/30/23 9:30:00 AM EDT, [id number], 157, cm, 10/26/23 13:58:00 EDT, Height, 94.3, kg, 01/19/22 4:25:00 EDT, Dry Weight Start Date: 10/30/23 Status: Ordered Quantity: 90.0 Unit: tablet Repeat number: 1 azaTHIOprine 50 mg oral tablet 50 mg, 1, tablet, By Mouth, Daily, TAKE 2 TABLETS ( 100MG ) BY MOUTH DAILY. Start Date: 06/22/23 Status: Ordered Repeat number: 1 budesonide 3 mg oral delayed release capsule 3 capsule = 9 mg, By Mouth, Daily in AM, 0 Refills, Maintenance, 03/21/23 2:39:00 PM EDT, Partial fill upon patient request if the prescription is for a schedule II opioid drug. Start Date: 03/21/23 Status: Ordered Repeat number: 1 duloxetine 20 mg oral enteric coated capsule 1 capsule, By Mouth, Daily at bedtime, # 90 capsule, 3 Refills, Maintenance, 09/26/23 5:28:00 AM EST,[facility], 157, cm, 09/18/23 11:23:00 EST, Height, 94.3, kg, 01/19/22 4:25:00 EDT, Dry Weight Start Date: 09/26/23 Status: Ordered Quantity: 90.0 Unit: capsule Repeat number: 1 Eliquis 5 mg oral tablet 1 tablet, By Mouth, 2 times a day, # 180 tablet, 3 Refills, Maintenance, 06/15/23 1:44:00 AM EST, [id number], 157, cm, 05/31/23 6:38:00 EST, Height, 94.3, kg, 01/19/22 4:25:00 EDT, Dry Weight Start Date: 06/15/23 Status: Ordered Quantity: 180.0 Unit: tablet Repeat number: 1 furosemide 40 mg oral tablet 40 mg, 1, tablet, By Mouth, Daily, Hold for SBP less than 90, # 30 tablet, Refills 5, Tot. Refills 5, Maintenance, 05/01/24 12:18:00 PM EDT, Route to Pharmacy Electronically, [facility]/pharmacy #[id number], Partial fill upon patient request if the prescription is for a schedule II opioid drug., 157, cm, 05/01/24 11:05:00 EDT, Height Start Date: 05/01/24 Status: Ordered Quantity: 30.0 Unit: tablet Repeat number: 6 isosorbide mononitrate 30 mg oral tablet, extended release 30 mg, 1, tablet, By Mouth, 2 times a day, Hold for SBP less than 90, Refills 0, Maintenance, 05/01/24 11:15:00 AM EDT, Partial fill upon patient request if the prescription is for a schedule II opioid drug. Start Date: 05/01/24 Status: Ordered Repeat number: 1 metoprolol 50 mg oral tablet, extended release 50 mg, 1, tablet, By Mouth, Daily, Hold for pulse less than 60, # 30 tablet, Refills 0, Maintenance, 05/01/24 11:18:00 AM EDT, Partial fill upon patient request if the prescription is for a schedule II opioid drug. Start Date: 05/01/24 Status: Ordered Quantity: 30.0 Unit: tablet Repeat number: 1 Metoprolol Succinate ER 25 mg oral tablet, extended release 1 tablet, By Mouth, Daily, # 30 tablet, 5 Refills, Maintenance, 01/17/24 7:34:00 AM EDT, [id number], 157, cm, 11/13/23 16:25:00 EDT, Height, 94.3, kg, 01/19/22 4:25:00 EDT, Dry Weight Start Date: 01/17/24 Status: Ordered Quantity: 30.0 Unit: tablet Repeat number: 1 nitroglycerin 0.4 mg sublingual tablet See Instructions, 1 TABLET SUBLINGUAL EVERY 5 MINUTES FOR 3 DOSES/TIMES NEEDED FOR CHEST PAIN. NOT TO EXCEED 3 DOSES/15 MIN--IF PAIN PERSISTS, SEEK MEDICAL ATTENTION, # 100 tablet, 0 Refills, Maintenance, 05/20/24 12:53:00 PM EDT, [id number], 157, cm, 05/01/24 11:05:00 EDT, Height Start Date: 05/20/24 Status: Ordered Quantity: 100.0 Unit: tablet Repeat number: 1 rOPINIRole 0.5 mg oral tablet 1 tablet, By Mouth, 4 times a day, # 360 tablet, 1 Refills, Maintenance, 04/19/24 3:32:00 PM EDT, [id number], 157, cm, 02/06/24 11:09:00 EDT, Height Start Date: 04/19/24 Status: Ordered Quantity: 360.0 Unit: tablet Repeat number: 1 rOPINIRole 1 mg oral tablet 1 tablet = 1 mg, By Mouth, Daily at bedtime, 0 Refills, Maintenance, 05/01/24 11:20:00 AM EDT, Partial fill upon patient request if the prescription is for a schedule II opioid drug. Start Date: 05/01/24 Status: Ordered Repeat number: 1 LONG TERM LONG TERM, See Instructions, # 1 each, Refills 0, Tot. Refills 0, Maintenance, PLEASE ADD ON LONG TERM SERVICES., 05/26/24 11:13:00 AM EST, Supply Start Date: 05/26/24 Status: Ordered Quantity: 1.0 Unit: each Repeat number: 1 spironolactone 25 mg oral tablet 25 mg, 1, tablet, By Mouth, 2 times a day, # 180 tablet, Refills 3, Tot. Refills 3, Maintenance, 08/27/23 12:45:00 PM EST, Route to Pharmacy Electronically, [facility]/pharmacy #[id number], Partial fill upon patient request if the prescription is for a schedule II opioid drug., 157, cm, 08/14/23 10:05:00 EST, Height, 94.3, kg, 01/19/22 4:25:00 EDT, Dry Weight Start Date: 08/27/23 Stop Date: 08/21/24 Status: Ordered Quantity: 180.0 Unit: tablet Repeat number: 4 Problem List Condition Confirmation Course Effective Dates [...] 100 in lifetime) entered on: 06/27/18 Sex Sex Representation Female (finding) Patient Care team information Care Team Personnel Name: Estrellita Putnam RN [facility]: [facility] - Primary Care Member Role: PCP Address: [address] [place] [id number]- Telecom: Name: Svitlana Clark RN Position: [facility] RN Member Role: Primary Care Nurse Name: Yoana Guevara RN Position: [facility] RN Member Role: Primary Care Nurse Name: Pierre Groves RN Position: [facility] RN Member Role: Primary Care Nurse Name: Carmen Murphy NP Position: [facility] PCO Associate Professional Member Role: Primary Care Nurse Address: [address] [place] [address] [place] [address]- Telecom: Name: Rylie Ordonez RN Position: [facility] RN Member Role: Primary Care Nurse Name: Marisa Negrete RN Position: [facility] AMB Nurse Member Role: Primary Care Nurse Name: Aditi Brown RN Position: [facility] Onco RN Member Role: Primary Care Nurse Name: Chana Cazares RN Position: [facility] RN Member Role: Primary Care Nurse Name: Toshia Urbina RN Position: [facility] RN Member Role: Primary Care Nurse Name: Isabel Gray Position: [facility] MA Content Publisher Member Role: Nutritional Services Host Name: Aniyah Sloan RN Position: [facility] SN RN Member Role: Primary Care Nurse Name: Rosemary Ramon RN Position: [facility] OB RN Member Role: Primary Care Nurse Name: Sneha Newton RN Position: [facility] Hospital Senior Private Client Advisor Member Role: Primary Care Nurse Care Team Related Persons Name: CLAUDIA URBINA Name: RALPH SÁNCHEZ Name: DONY CARCAMO Insurance Providers Guarantor name: FABIENNE URBINA Health Plan Information #: 1 Payer: MEDICARE PART B OUTPT Member Number: NA Policy Number: NA Group Number: NA Health Plan Information #: 2 Payer: MEDEX Member Number: NA Policy Number: NA Group Number: NA
--- OUTSIDE RECORDS SUMMARY | 2024-06-19 19:51 | XMS_ITS | Continuity of Care Document ---
Author Organization [facility] Address [address] [place] [address]- Care Team Providers Care Salvage Mechanic Name Role Phone Rc CORDERO, Mick Clay Primary Care Physician [phone] [id number] Date(s): 05/16/24 - 06/15/24 [facility] [address] [place] [phone]- Encounter Type: Triage Allergies, Adverse Reactions, Alerts Substance Criticality Severity Reaction Reaction Severity Status amoxicillin 1 Active Other Environmental Allergy 2 Active Other Food Allergy 3 chicken , peppers, onions Resolved Benadryl Shaking Active Cats Active Contrast Dye Active Dust Active egg-containing compound 4 Resolved 1Tolerates ceftriaxone 2trees, roses 3Pt states [...] (Td) 6 07/23/96 Recorde d 1Result Comment: [facility]: [id number]. Screening Checklist reviewed with patient. Negative for any contraindications. 2Result Comment: [id number] 3Location History: DR LOAIZA 4Location History: DR LOAIZA 5Location History: DR LOAIZA 6Location History: DR LOAIZA Medications atorvastatin 40 mg oral tablet 1 tablet, By Mouth, Daily at bedtime, # 90 tablet, 1 Refills, Maintenance, 10/30/23 9:30:00 AM EDT, [facility], 157, cm, 10/26/23 13:58:00 EDT, Height, 94.3, [...] Refills, Maintenance, 09/26/23 5:28:00 AM EST,[facility], 157, cm, 09/18/23 11:23:00 EST, Height, 94.3, kg, 01/19/22 4:25:00 EDT, Dry Weight Start Date: 09/26/23 Status: Ordered Quantity: 90.0 Unit: capsule Repeat number: 1 Eliquis 5 mg oral tablet 1 tablet, By Mouth, 2 times a day, # 180 tablet, 3 Refills, Maintenance, 06/15/23 1:44:00 AM EST, [facility], 157, cm, 05/31/23 6:38:00 EST, Height, 94.3, kg, 01/19/22 4:25:00 EDT, Dry Weight Start Date: 06/15/23 Status: Ordered Quantity: 180.0 Unit: tablet Repeat number: 1 furosemide 40 mg oral tablet 40 mg, 1, tablet, By Mouth, Daily, Hold for SBP less than 90, # 30 tablet, Refills 5, Tot. Refills 5, Maintenance, 05/01/24 12:18:00 PM EDT, [facility], [facility] [...] Maintenance, 01/17/24 7:34:00 AM EDT, [facility], 157, cm, 11/13/23 16:25:00 EDT, Height, 94.3, [...] 0 Refills, Maintenance, 05/20/24 12:53:00 PM EDT, [facility], 157, cm, 05/01/24 11:05:00 EDT, Height Start Date: 05/20/24 Status: Ordered Quantity: 100.0 Unit: tablet Repeat number: 1 rOPINIRole 0.5 mg oral tablet 1 tablet, By Mouth, 4 times a day, # 360 tablet, 1 Refills, Maintenance, 04/19/24 3:32:00 PM EDT, [facility], 157, cm, 02/06/24 11:09:00 EDT, Height Start Date: 04/19/24 Status: Ordered Quantity: 360.0 Unit: tablet Repeat number: 1 rOPINIRole 1 mg oral tablet 1 tablet = 1 mg, By Mouth, Daily at bedtime, 0 Refills, Maintenance, 05/01/24 11:20:00 AM EDT, Partial fill upon patient request if the prescription is for a schedule II opioid drug. Start Date: 05/01/24 Status: Ordered Repeat number: 1 LONGTERM LONGTERM, See Instructions, # 1 each, Refills 0, Tot. Refills 0, Maintenance, PLEASE ADD ON LONGTERM SERVICES., 05/26/24 11:13:00 AM EST, Supply Start Date: 05/26/24 Status: Ordered Quantity: 1.0 Unit: each Repeat number: 1 spironolactone 25 mg oral tablet 25 mg, 1, tablet, By Mouth, 2 times a day, # 180 tablet, Refills 3, Tot. Refills 3, Maintenance, 08/27/23 12:45:00 PM EST, Route to Pharmacy Electronically, [facility]/pharmacy #[id number], Partial fill upon patient request if the [...] Team Personnel Name: Estrellita Putnam RN Position: [facility] RN Member Role: Primary Care Nurse Name: Marlen Kenny RN Position: [facility] RN Member Role: Primary Care Nurse Name: Toshia Muhammad RN Position: [facility] RN Supjulieth Member Role: Primary Care Nurse Name: Suleman Jones RN Position: [facility] RN Member Role: Primary Care Nurse Name: Kathy Medina RN Position: [facility] RN Member Role: Primary Care Nurse Name: Marguerite Wang RN Position: [facility] RN Member Role: Primary Care Nurse Name: Mick Tatum MD Position: [facility] Physician - Primary Care Member Role: PCP Address: [address] [place] [id number]- Telecom: Name: Svitlana Clark RN Position: [facility] RN Member Role: Primary Care Nurse Name: Yoana Guevara RN Position: [facility] RN Member Role: Primary Care Nurse Name: Pierre Groves RN Position: [facility] RN Member Role: Primary Care Nurse Name: Carmen Murphy NP Position: [facility] PCO Associate Professional Member Role: Primary Care Nurse Address: [address] [place] [address] [place] [address]- Telecom: Name: Rylie Ordonez RN Position: [facility] RN Member Role: Primary Care Nurse Name: Marisa Negrete RN Position: [facility] AMB Nurse Member Role: Primary Care Nurse Name: Aditi Brown RN Position: [facility] Onco RN Member Role: Primary Care Nurse Name: Chana Cazares RN Position: [facility] RN Member Role: Primary Care Nurse Name: Toshia Urbina RN Position: [facility] RN Member Role: Primary Care Nurse Name: Isabel Gray Position: [facility] Hops Farmworker Member Role: Superintendent Fish Hatchery Name: Aniyah Sloan RN Position: [facility] SN RN Member Role: Primary Care Nurse Name: Rosemary Ramon RN Position: [facility] OB RN Member Role: Primary Care Nurse Name: Sneha Newton RN Position: [facility] Hospital Outreach Team Member Member Role: Primary Care Nurse Care Team [...]
[2024-06-19] MEDS: oxyCODONE HCl Immed Release 5 MG TABLET PO (21:29)
[2024-06-19 22:09] VITALS: BP 138/88; PULSE 88; RESP 17; TEMP 37.2; O2SAT 93
--- NOTE | 2024-06-19 22:19 | PC.NURSE ---
late entry- pt biba from home, reports her son had been helping her into her car when her leg got stuck on something and ripped her skin, pt reports she is on elequis for blood clots. pt noted to have large skin tare to the right calf, bleeding controlled. Provider at bedside placed multiple steri strips to site. clean dry gauze placed. pt discharged to son.
[2024-06-19 22:23] VITALS: BP 138/88; PULSE 88; RESP 17; TEMP 37.2; O2SAT 93
== END 2024-06-19 22:24 | disposition home or self-care (01) ==
PROVIDERS: Emergency Provider Emergency Medicine; PCP Family Medicine
DX: S81.811A Laceration without foreign body, right lower leg, initial encounter (principal); X58.XXXA Exposure to other specified factors, initial encounter; R60.0 Localized edema; E11.9 Type 2 diabetes mellitus without complications; I10 Essential (primary) hypertension; Z86.718 Personal history of other venous thrombosis and embolism; Z79.01 Long term (current) use of anticoagulants; Z79.02 Long term (current) use of antithrombotics/antiplatelets; Z79.899 Other long term (current) drug therapy; Y93.89 Activity, other specified; Y92.9 Unspecified place or not applicable; Y99.9 Unspecified external cause status
CPT/HCPCS: 99283; 99284

== ENCOUNTER 2024-08-15 15:25 | Emergency (ER) | payer MEDICARE, SELFPAY ==
--- NOTE | ~2024-08-15 | XR_ITS ---
EXAMINATION: XR CHEST CLINICAL INFORMATION: chest pain COMPARISON: 08/11/2023, 12/12/2023. TECHNIQUE: 2 views of the chest were obtained. FINDINGS: There is rightward patient rotation. The cardiac, hilar, and mediastinal contours are normal. Left coronary stent, likely within LAD. Aorta is calcified and mildly tortuous. The lungs are clear bilaterally. There is no pneumothorax or pleural effusion. No soft tissue abnormalities. Subluxation of the left glenohumeral joint, similar to prior exams. Degenerative spinal changes with mild scoliosis. Cholecystectomy clips noted. XR/XR chest 2V IMPRESSION: No active pulmonary disease. Electronically signed by: Gaetano Rangel MD 08/15/2024 04:42 PM EST
--- NOTE | 2024-08-15 15:28 | ECG_ITS ---
Test Reason : CP Blood Pressure : */* mmHG Vent. Rate : 63 BPM Atrial Rate : 63 BPM P-R Int : 176 ms QRS Dur : 96 ms QT Int : 434 ms P-R-T Axes : 26 -35 25 degrees QTcB Int : 444 ms Normal sinus rhythm Left axis deviation Abnormal ECG When compared with ECG of 01-Jun-2024 18:36, Sinus rhythm has replaced Junctional rhythm Borderline criteria for Lateral infarct are no longer Present Referred By: Myrna Bang Electronically Signed By: JESSICA SANDOVAL MD
[2024-08-15 15:48] VITALS: BP 132/62; BP 134/63; PULSE 63; PULSE 73; RESP 16; TEMP 36.3; O2SAT 96; O2SAT 98; BMI 33.3
--- NOTE | 2024-08-15 15:52 | ED.CHESTPAIN ---
HPI - Chest Pain General Chief Complaint: Chest Pain Stated Complaint: 10/10 chest paintook nitro to manage pain Time Seen by Provider: 08/15/24 15:27 Source: patient and EMS Mode of arrival: EMS Limitations: no limitations History of Present Illness ED Provider: MAK PIPER PA-C HPI narrative: 84 year old female with pmhx significant for CHF, s/p CABG w/ stent placement, HTN, DVT presents to the ED today for evaluation of chest pain that began prior to arrival in ED today. Patient states she was seated at home when she began to have jaw pain, followed by substernal chest pain. Pain was 10/10 at onset. She reports taking 3 nitro, 5 minutes apart. After approximately 20 minutes, her chest pain completely resolved with a 3rd dose of nitro. She follows with her [facility]backup admin at [facility] and was advised to call EMS if her chest pain requires a 3rd dose of nitro. She denies any complaints at present. Denies any recent upper respiratory symptoms. Denies fever, chills, chest pain, shortness of breath, wheezing. Denies known sick contacts. Patient's daughter is at bedside to assist with history. Patient was recently endorsing increased swelling to her feet. She followed up with her [employer] admin who restarted her on 20 mg of Lasix daily. She has been taking this as prescribed for the last week with improvement in swelling. Her daughter states her weight has been gradually decreasing. Related Data Home Medications ?Medication ?Instructions ?Recorded ?Confirmed apixaban 5 mg tablet (Eliquis) 5 mg PO BID 12/02/20 06/01/24 atorvastatin 40 mg tablet 1 tab PO BEDTIME 05/11/21 06/01/24 ropinirole 0.5 mg tablet 0.5 mg PO BID@1200,1800 09/06/22 06/01/24 gabapentin 400 mg capsule 400 mg PO BID 08/31/23 06/01/24 furosemide 40 mg tablet 40 mg PO DAILY 02/08/24 06/01/24 albuterol sulfate 90 mcg/actuation 2 puff inhalation Q4-6H PRN 02/09/24 06/01/24 aerosol inhaler wheezing duloxetine 20 mg capsule,delayed 20 mg PO BEDTIME 02/09/24 06/01/24 release gabapentin 300 mg capsule 300 mg PO BID 02/09/24 06/01/24 isosorbide mononitrate 30 mg 30 mg PO DAILY 02/09/24 06/01/24 tablet,extended release 24 hr nitroglycerin 0.4 mg sublingual 0.4 mg sublingual Q5M PRN Chest 02/09/24 06/01/24 tablet Pain oxycodone 5 mg tablet 5 mg PO BID PRN Pain (Scale Score 02/09/24 06/01/24 4-6) ropinirole 0.5 mg tablet 1 mg PO BEDTIME 02/09/24 06/01/24 metoprolol succinate 25 mg 25 mg PO DAILY 05/28/24 06/01/24 tablet,extended release 24 hr spironolactone 25 mg tablet 25 mg PO BID 05/28/24 06/01/24 Previous Rx's ?Medication ?Instructions ?Recorded cefuroxime axetil 500 mg tablet 500 mg PO BID 3 days #6 tabs 05/31/24 metronidazole 500 mg tablet 500 mg PO Q8H #9 tabs 05/31/24 oxycodone 5 mg tablet 5 mg PO Q8H PRN pain (scale score 06/02/24 4-6) 3 days #12 tabs azathioprine 50 mg tablet 50 mg PO BID #180 tabs 07/01/24 budesonide 3 mg 9 mg (3 x 3 mg) PO DAILY #270 caps 07/21/24 capsule,delayed,extended release Allergies Allergy/AdvReac Type Severity Reaction Status Date / Time dogs, cats etc.. Allergy Unknown Unknown Uncoded 08/15/24 15:52 barium Allergy Hives Uncoded 08/15/24 15:52 Review of Systems Review of Systems: Constitutional: No fever, chills, fatigue, night sweats, weight changes ENT/Mouth: No ear pain, hearing loss, nasal congestion, sinus pain, rhinorrhea, sore throat Eyes: No eye pain, swelling, redness, vision changes, discharge Cardio: No chest pain, palpitations, BOUCHER, orthopnea, peripheral edema Pulm: No SOB, cough, sputum, wheezing, dyspnea, hemoptysis GI: No nausea, vomiting, hematemesis, abdominal pain, diarrhea, constipation, hematochezia, melena : No irregular bleeding, dysuria, frequency, urgency, hesitancy, hematuria, flank pain, urinary flow changes, urinary incontinence or retention MSK: No back pain, neck pain, joint pain, myalgias Skin: No lesions, rashes Neuro: No weakness, numbness, paresthesias, LOC, dizziness, headache Psych: No anxiety/panic, depression, SI/HI, AH/VH All other systems reviewed and are negative. [facility] Past Medical History Attestation statement: The following information was validated with the patient. Source: old records reviewed and nursing notes reviewed Medical History History of CHF (congestive heart failure) Constipation Acute proctitis Hemorrhoids Spinal abscess Restless leg syndrome HTN (hypertension) Pre-diabetes DVT (deep venous thrombosis) Colitis Ulcerative colitis Surgical History Hx of shoulder surgery Social History Social History Household Members: Other Household Members Other:: son Housing: House Do you presently have visiting nurse or other home services: Yes Unable to assess alcohol history related to: Unable to respond Alcohol intake: never Patient Tobacco Use Status: Never used Tobacco Smoked in Last 30 Days: No Use of substances other than those prescribed or required for medical reasons: No Advance Directives: Yes Advance Directives on File: Yes Advance Directives Date on File: 11/16/22 service: No Current occupational status: retired Physical Exam Vital Signs: Vital Signs: Last Vital Signs Temp 97.9 F 08/15/24 19:40 Pulse 69 08/15/24 19:40 Resp 20 08/15/24 19:40 BP 115/45 L 08/15/24 19:40 Pulse Ox 96 08/15/24 19:40 O2 Del Method Room Air 08/15/24 19:40 BMI result Body Mass Index 33.3 vital signs stable, afebrile, not hypoxic or tachycardic General: Well-appearing, no acute distress, playing on her iPad Skin: Warm, dry, intact. No rashes or lesions. Head: Normocephalic, atraumatic. EENT: Hearing is intact b/l. Conjunctiva clear. PERRLA. EOM intact. Moist mucous membranes.? Neck: Supple without LAD. FROM. Trachea midline.? Cardiac: Chest wall symmetric. RRR. no JVD. Lungs: Normal respiratory effort without accessory muscle use. CTA bilaterally. No crackles. Abdomen: Soft, non-tender, non-distended. No rebound tenderness or guarding Ext: 1+ pitting edema to bilateral LEs. no calf tenderness b/l. Neuro: AOx3. Normal speech. Ambulating with steady gait. Psych: Appropriate mood and affect. Responds appropriately to questions. Course Course Course Narrative: 1711 -- cbc without leukocytosis. normocytic anemia, chronic when compared to priors. chemistry without acute electrolyte abnormality requiring intervention. bnp wnl - no concern for CHF. cxr does not demonstrate anemia or electrolyte abnormality requiring intervention. BUN slightly elevated with normal creatinine. will encourage PO hydration. random glucose 172. troponin 5.5 - will repeat for delta in 3 hours. lipase wnl. UA without evidence of infection. negative covid, flu, rsv. D-dimer 154. Age adjusted D-dimer threshold 425. VTE unlikely. 1954 -- delta troponin flat. Patient has been observed in the ED for over 4 hours without chest pain. Her presentation is consistent with stable angina. Patient gets chest pain approximately once a month, responsive to nitro. This is unchanged. Her workup is negative for [place] and CHF. I did discuss work up with patient. at this time I feel she is stable for discharge home with outpatient cardiology follow up. she is agreeable. she will be discharged home with her son. Patient has remained stable throughout ED visit today. Discussed worrisome signs and symptoms and when to return to the ED. All questions answered at this time. Patient is agreeable with disposition and stable for discharge. Medical Decision Making Medical Decision Making MDM Narrative: 84 year old female with pmhx significant for CHF, s/p CABG w/ stent placement, HTN, DVT presents to the ED today for evaluation of chest pain that began prior to arrival in ED today. Vital signs stable. Not tachycardic or hypoxic. She is well-appearing in no acute distress. Sitting comfortably on the exam bed. No respiratory distress noted. No tripoding. Lungs are CTA bilaterally without crackles, rhonchi or wheezes. RRR. There is 1+ pitting edema to bilateral lower extremities. No JVD. No calf tenderness b/l. History with high risk features (substernal, although no exertional component and not relieved with rest).? CAD risk factors including age, previous CABG w/ stent placement. Exam without evidence of volume overload. EKG without signs of active ischemia. HEART score: 5. Given the timing of pain to ED presentation, plan to send delta troponin to evaluate for NSTEMI. PERC 1. will obtain d dimer to r/o PE. Differential diagnosis includes anemia, electrolyte abnormality, dehydration, ACS, arrhythmia, CHF, DVT/PE, dependent leg edema, pneumonia, bronchitis, pleural effusion, viral syndrome. Presentation not consistent with pneumothorax, thoracic aortic dissection, cardiac effusion or tamponade. Plan: labs, troponin, EKG, CXR, reassessment No chest pain at present - will hold on pain control. plan for re-evaluation. Differential Diagnosis Differential Diagnoses: The differential diagnosis associated with the presentation includes as above. Admission/Observation Consideration of admission/observation: Escalation of care including admission/observation considered Admission considered on presentation. Lab Data MDM Lab Attestation statement: I reviewed the patient's lab results. as above. 08/15/24 16:14 08/15/24 16:14 Labs: Lab Results 08/15/24 08/15/24 08/15/24 Range/Units 16:14 16:39 19:12 WBC 7.6 (4.8-10.8) X10*3/uL RBC 4.21 (4.20-5.50) X10*6/uL Hgb 11.3 L (12.0-16.0) g/dl Hct 36.5 L (37.0-47.0) % MCV 86.7 (80.0-98.0) fL MCH 26.8 L (27.0-33.0) pg MCHC 31.0 (31.0-35.0) g/dl RDW 17.0 H (11.0-16.0) % Plt Count 368 (160-400) X10*3/uL MPV 8.8 L (9.4-12.3) fL Immature Gran % (Auto) 0.7 H (0.0-0.4) % Neut % (Auto) 81.1 H (45-73) % Lymph % (Auto) 10.3 L (20-40) % Colbert % (Auto) 7.1 (2-11) % Eos % (Auto) 0.3 (0-4) % Baso % (Auto) 0.5 (0-2) % Lymph # (Auto) 0.8 L (1.2-4.9) X10*3/uL [place]bert # (Auto) 0.5 (0.1-1.2) X10*3/uL Eos # (Auto) 0.0 (0.0-0.4) X10*3/uL Baso # (Auto) 0.0 (0.0-0.2) X10*3/uL Abs Immat Gran (auto) 0.05 H (0.00-0.03) X10*3/uL Absolute Neuts (auto) 6.1 (2.0-8.3) x10*3/uL Absolute Nucleated RBC 0.000 (0.0-0.012) X10*3/uL Nucleated RBC % (auto) 0.0 (0.0-0.2) /100WBC PT 14.5 H (10.9-12.4) SEC INR 1.2 H (0.9-1.1) D-Dimer High Sensitivty 154 NG/ML Sodium 141 (135-145) mmol/L Potassium 4.5 D (3.3-5.1) mmol/L Chloride 104 (96-108) mmol/L Carbon Dioxide 30 H (22-29) mmol/L Anion Gap 12 (12-20) BUN 29 H (9-16) mg/dL Creatinine 0.92 (0.5-1.4) mg/dL Estim Creat Clear Calc 44.5 Estimated GFR 58 Random Glucose 172 H (60-115) mg/dL Calcium 8.8 (8.4-10.2) mg/dL Magnesium 2.4 (1.6-2.6) mg/dL Total Bilirubin 0.5 (0.0-1.0) mg/dL AST 28 (5-31) U/L ALT 17 (0-31) U/L Alkaline Phosphatase 65 (39-117) U/L Troponin I High Sens 5.5 6.2 (<3.5-17.0) ng/L B-Natriuretic Peptide 42 (<100) pg/mL Total Protein 6.8 (6.5-8.0) g/dL Albumin 3.5 (3.5-5.0) g/dL Lipase 19 (8-78) U/L Urine Color Yellow Urine Appearance Clear Urine pH 5.0 (5.0-9.0) Ur Specific [place] 1.015 (1.005-1.025) Urine Protein Negative (Neg-Trace) mg/dL Urine Glucose (UA) >=1000 H (Negative) mg/dL Urine Ketones Negative (Negative) mg/dL Urine Blood Trace H (Negative) Urine Nitrite Negative (Negative) Ur Leukocyte Esterase Trace H (Negative) Urine RBC 0-2 (0-2) /HPF Urine WBC 0-5 (0-5) /HPF Ur Squamous Epith Cells 0-2 (0-2) /HPF Urine Bacteria None Seen (None Seen) Hyaline Casts 0-2 (0-2) /LPF Influenza Type A (PCR) NEGATIVE (Negative) Influenza Type B (PCR) NEGATIVE (Negative) RSV RNA Qual (PCR) NEGATIVE (Negative) SARS-CoV-2 RNA (RT-PCR) NEGATIVE (Negative) Independent Interpretation I performed an independent interpretation of an: EKG and Plain X-Ray Interpretation: EKG showing NSR with a rate of 63 bpm, no acute ischemic changes or st elevations. CXR without infiltrate or consolidation. No obvious edema or effusion. Radiology Impression Discussion of test interpretation with radiology: I have reviewed the radiologist's reading. Radiologist Impression: EXAMINATION: XR CHEST CLINICAL INFORMATION: chest pain COMPARISON: 08/11/2023, 12/12/2023. TECHNIQUE: 2 views of the chest were obtained. FINDINGS: There is rightward patient rotation. The cardiac, hilar, and mediastinal contours are normal. Left coronary stent, likely within LAD. Aorta is calcified and mildly tortuous. The lungs are clear bilaterally. There is no pneumothorax or pleural effusion. No soft tissue abnormalities. Subluxation of the left glenohumeral joint, similar to prior exams. Degenerative spinal changes with mild scoliosis. Cholecystectomy clips noted. XR/XR chest 2V IMPRESSION: No active pulmonary disease. Electronically signed by: Gaetano Rangel MD 08/15/2024 04:42 PM [facility] Independent Historian Clinical information obtained from an independent historian. History obtained from or confirmed by: Other (daughter) External Record Review External record reviewed: Inpatient record Chronic Conditions Patient?s care impacted by: Other (CAD) Social Determinants Patient?s care significantly limited by Social Determinants of Health including: Other Social Determinant of Health Critical Care Time Critical Care Time Critical Care Time: No Discharge Plan Discharge Clinical Impression: Stable angina Patient Disposition: Home, Self-Care Instructions: Angina (ED), Heart Healthy Diet (DC) Additional Instructions: You were evaluated in the emergency department today for your chest pain. Your chest pain completely resolved after taking nitroglycerin. Your workup today is reassuring. Your heart enzyme was normal x2. Your EKG is normal. Your chest x-ray does not demonstrate fluid overload or pneumonia. You tested negative for COVID, flu, RSV. Your urine is negative for infection. As discussed, if your chest pain occurs more often or if you find yourself having to take nitro more often for your chest pain, please return to the ED. Please follow up with your net[employer] admin in the next two weeks. Return to the ED with new or worsening symptoms. In the case of an emergency call 911. Prescriptions: No Action azathioprine 50 mg tablet 50 mg PO BID Qty: 180 2RF budesonide 3 mg capsule,delayed,extend.release 9 mg PO DAILY Qty: 270 3RF ropinirole 0.5 mg tablet 0.5 mg PO BID@1200,1800 atorvastatin 40 mg tablet 1 tab PO BEDTIME oxycodone 5 mg tablet 5 mg PO Q8H PRN (Reason: pain (scale score 4-6)) 3 Days Qty: 12 0RF Rx Instructions: Partial Fill upon patient request. furosemide 40 mg tablet 40 mg PO DAILY Protocol: Hold for SBP< HOLD for SBP < : 90 duloxetine 20 mg Capsule,Delayed Release(Dr/Ec) 20 mg PO BEDTIME gabapentin 300 mg Capsule 300 mg PO BID Rx Instructions: TAKES WITH 400 MG CAPSULE FOR TOTAL DOSE OF 700 MG isosorbide mononitrate 30 mg Tablet Extended Release 24 Hr 30 mg PO DAILY ropinirole 0.5 mg Tablet 1 mg PO BEDTIME Rx Instructions: administer 1-3 hours before bedtime nitroglycerin 0.4 mg Tablet, Sublingual 0.4 mg SUBLINGUAL Q5M PRN (Reason: Chest Pain) Rx Instructions: do not exceed 3 doses per episode oxycodone 5 mg Tablet 5 mg PO BID PRN (Reason: Pain (Scale Score 4-6)) albuterol sulfate 90 mcg/actuation HFA aerosol inhaler 2 puff inhalation Q4-6H PRN (Reason: wheezing) spironolactone 25 mg tablet 25 mg PO BID metoprolol succinate 25 mg tablet extended release 24 hr 25 mg PO DAILY metronidazole 500 mg Tablet 500 mg PO Q8H Qty: 9 0RF cefuroxime axetil 500 mg tablet 500 mg PO BID 3 Days Qty: 6 0RF Eliquis 5 mg tablet 5 mg PO BID gabapentin 400 mg capsule 400 mg PO BID Referrals: Mick Tatum MD [Primary Care Provider] - Print Language: Gibralt[place]
--- NOTE | 2024-08-15 15:54 | PC.NURSE ---
pt comes to ED from home where she experienced 10/10 chest pain. pt took 3 nitro before her pain subsided. usually, she is able to manage her pain with 2.
[2024-08-15 16:18] LABS: MANUAL DIFF FLAG NO
[2024-08-15 16:22] LABS: Basophils Percent Auto 0.5 % (0-2); Eosinophils Percent Auto 0.3 % (0-4); Hematocrit 36.5 % (37.0-47.0); Hemoglobin 11.3 g/dl (12.0-16.0); Imm Gran Abs Auto 0.05 X10*3/uL (0.00-0.03); Imm Gran Pct Auto 0.7 % (0.0-0.4); Lymphocytes Absolute Auto 0.8 X10*3/uL (1.2-4.9); Lymphocytes Percent Auto 10.3 % (20-40); Mean Corpuscular Hemoglobin 26.8 pg (27.0-33.0); Mean Corpuscular Volume 86.7 fL (80.0-98.0); Mean Platelet Volume 8.8 fL (9.4-12.3); Monocytes Absolute Auto 0.5 X10*3/uL (0.1-1.2); Monocytes Percent Auto 7.1 % (2-11); Neutrophils Absolute Auto 6.1 x10*3/uL (2.0-8.3); Neutrophils Percent Auto 81.1 % (45-73); Platelet Count 368 X10*3/uL (160-400); Red Blood Count 4.21 X10*6/uL (4.20-5.50); White Blood Count 7.6 X10*3/uL (4.8-10.8)
[2024-08-15 16:31] LABS: INTERNATIONAL NORM RATIO 1.2 (0.9-1.1); Prothrombin Time 14.5 SEC (10.9-12.4)
[2024-08-15 16:34] LABS: Alanine Aminotransferase 17 U/L (0-31); Albumin Level 3.5 g/dL (3.5-5.0); Alkaline Phosphatase 65 U/L (39-117); Anion Gap 12 (12-20); Aspartate Amino Transferase 28 U/L (5-31); Bilirubin Total 0.5 mg/dL (0.0-1.0); Blood Urea Nitrogen 29 mg/dL (9-16); Calcium 8.8 mg/dL (8.4-10.2); Carbon Dioxide 30 mmol/L (22-29); Chloride 104 mmol/L (96-108); Creatinine Clr Calc Pharmacy 44.5; Estimated Glomerular Filt Rate 58; Glucose Random 172 mg/dL (60-115); Lipase 19 U/L (8-78); Magnesium 2.4 mg/dL (1.6-2.6); Potassium 4.5 mmol/L (3.3-5.1); Sodium 141 mmol/L (135-145); Total Protein 6.8 g/dL (6.5-8.0)
[2024-08-15 16:40] LABS: B Type Natriuretic Peptide 42 pg/mL (<100)
[2024-08-15 16:42] LABS: Troponin-I High Sensitivity 5.5 ng/L (<3.5-17.0)
--- OUTSIDE RECORDS SUMMARY | 2024-08-15 16:42 | XMS_ITS | Continuity of Care Document ---
Author Organization [facility] Jose lt Address [address] [place] [address]- Care Team Providers Care Textile Artist Name Role Phone Rc CORDERO, Mick Clay Primary Care Phys[id number] Date[facility]s): [facility]/20/24 - 07/20/24 [facility] [address] [place] [address]- Encounter Type: Triage Allergies, Adverse Reactions, Alerts Substance Criticality Severity Reaction Reaction Severity Status amoxicillin 1 Active Other Environmental Allergy 2 Active Benadryl Shaking Active Cats Active Contrast Dye Active Dust Active egg-containing compound 3 Resolved Other Food [...] Recorde d 1Result Comment: [facility]: [id number]. Screening Checklist reviewed with patient. Negative for any contraindications. 2Result Comment: [id number] 3Location History: DR LOAIZA 4Location History: DR LOAIZA 5Location History: DR LOAIZA 6Location History: DR LOAIZA Medications albuterol CFC free 90 mcg/inh inhalation aerosol 1, puffs, Inhalation, Every 4 hours, PRN, Refills 0, Maintenance, 06/18/24 4:08:00 PM EST Start Date: 06/18/24 Status: Ordered Repeat number: 1 atorvastatin 40 mg oral tablet 1 tablet, By Mouth, Daily at bedtime, BUBBLE PACKS, # 30 tablet, 5 Refills, Maintenance, 07/17/24 2:25:00 PM EST, [facility], 157, cm, 07/01/24 11:34:00 EST, Height Start Date: 07/17/24 Stop Date: 01/13/25 Status: Ordered Quantity: 30.0 Unit: tablet Repeat number: 6 azaTHIOprine 50 mg oral tablet 50 mg, 1, tablet, By Mouth, 2 times a day, # 60 tablet, Refills 5, Tot. Refills 5, Maintenance, 07/18/24 4:15:00 AM EST, Route to Pharmacy Electronically, [facility], Partial fill upon patient request if the prescription is for a schedule II opioid drug., 157, cm, 07/01/24 11:34:00 EST, Height Start Date: 07/18/24 Status: Ordered Quantity: 60.0 Unit: tablet Repeat number: 6 budesonide 3 mg oral delayed release capsule 3 capsule = 9 mg, By Mouth, Daily in AM, 0 Refills, Maintenance, 03/21/23 2:39:00 PM EDT, Partial fill upon patient request if the prescription is for a schedule II opioid drug. Start Date: 03/21/23 Status: Ordered Repeat number: 1 duloxetine 20 mg oral enteric coated capsule 1 capsule, By Mouth, Daily at bedtime, BUBBLE PACKS, # 30 capsule, 5 Refills, Maintenance, 242:24:00 PM EST, [facility], 157, cm, 07/01/24 11:34:00 EST, Height Start Date: 07/17/24 Stop Date: 01/13/25 Status: Ordered Quantity: 30.0 Unit: capsule Repeat number: 6 Eliquis 5 mg oral tablet 1 tablet, By Mouth, 2 times a day, # 60 tablet, 5 Refills, Maintenance, 07/17/24 2:25:00 PM EST, [facility], 157, cm, 07/01/24 11:34:00 EST, Height Start Date: 07/17/24 Stop Date: 01/13/25 Status: Ordered Quantity: 60.0 Unit: tablet Repeat number: 6 Farxiga 10 mg oral tablet 1 tablet = 10 mg, By Mouth, Daily, # 90 tablet, 3 Refills, Maintenance, 07/17/24 2:38:00 PM EST, Tablet, [facility], BUBBLE PACK, 157, cm, 07/01/24 11:34:00 EST, Height Start Date: 07/17/24 Status: Ordered Quantity: 90.0 Unit: tablet Repeat number: 4 gabapentin 300 mg oral capsule 300 mg, 1, capsule, By Mouth, 2 times a day, # 60 capsule, Refills 5, Tot. Refills 5, Maintenance, 07/18/24 4:16:00 AM EST, Route to Pharmacy Electronically, [facility], Partial fill upon patient request if the prescription is for a schedule II opioid drug., 157, cm, 07/01/24 11:34:00 EST, Height Start Date: 07/18/24 Status: Ordered Quantity: 60.0 Unit: capsule Repeat number: 6 isosorbide mononitrate 30 mg oral tablet, extended release 30 mg, 1, tablet, By Mouth, Daily in AM, Hold for SBP less than 90, Refills 0, Maintenance, 05/01/24 11:15:00 AM EDT, Partial fill upon patient request if the prescription is for a schedule II opioiddrug. Start Date: 05/01/24 Status: Ordered Repeat number: 1 isosorbide mononitrate 60 mg oral tablet, extended release 1 tablet, By Mouth, 2 times a day, # 60 tablet, 5 Refills, Maintenance, 07/18/24 4:16:00 AM EST, [facility], 157, cm, 07/01/24 11:34:00 EST, Height Start Date: 07/18/24 Status: Ordered Quantity: 60.0 Unit: tablet Repeat number: 6 nitroglycerin 0.4 mg sublingual tablet See Instructions, 1 TABLET SUBLINGUAL EVERY 5 MINUTES FOR 3 DOSES/TIMES NEEDED FOR CHEST PAIN. NOT TO EXCEED 3 DOSES/15 MIN--IF PAIN PERSISTS, SEEK MEDICAL ATTENTION, # 100 tablet, 0 Refills, Maintenance, 05/20/24 12:53:00 PM EDT, [id number], 157, cm, 05/01/24 11:05:00 EDT, Height Start Date: 05/20/24 Status: Ordered Quantity: 100.0 Unit: tablet Repeat number: 1 rOPINIRole 0.5 mg oral tablet See Instructions, 1 tablet twice daily and two tabs qhs BUBBLE PACKS, # 120 tablet, 5 Refills, Maintenance, 07/17/24 2:25:00 PM EST, [facility], 157, cm, 07/01/24 11:34:00 EST, Height Start Date: 07/17/24 Status: Ordered Quantity: 120.0 Unit: tablet Repeat number: 6 FDC FDC, See Instructions, # 1 each, Refills 0, Tot. Refills 0, Maintenance, Please add in care home services to eval and treat new large right díaz skin tear., 06/20/24 1:29:00 PM EST,Supply, 157, cm, 06/18/24 16:08:00 EST, Height Start Date: 06/20/24 Status: Ordered Quantity: 1.0 Unit: each Repeat number: 1 spironolactone 25 mg oral tablet 25 mg, 1, tablet, By Mouth, 2 times a day, # 180 tablet, Refills 3, Tot. Refills 3, Maintenance, 07/17/24 1:12:00 PM EST, Route to Pharmacy Electronically, [facility], BUBBLE PACKS PLEASE, 157, cm, 07/01/24 11:34:00 EST, Height Start Date: 07/17/24 Stop Date: 07/12/25 Status: Ordered Quantity: 180.0 Unit: tablet Repeat [...] Active Need for influenza vaccination Confirmed Active Osteoarthritis 3 Confirmed Active Confirmed [...] information Care Team Personnel Name: Mojgan Lopez CNM Position: Reference Physician Member Role: Primary Care Nurse Address: [address] [place] [address]- Telecom: Name: Estrellita Putnam RN Position: [facility] RN Member Role: Primary Care Nurse Name: Marlen Kenny RN Position: [facility] RN Member Role: Primary Care Nurse Name: Toshia Muhammad RN Position: [facility] RN Supv Member Role: Primary Care Nurse Name: Suleman Jones RN Position: [facility] RN Member Role: Primary Care Nurse Name: Kathy Medina RN Position: [facility] ED RN W/OE and Tasks Member Role: Primary Care Nurse Name: Marguerite Wang RN Position: [facility] RN Member Role: Primary Care Nurse Name: Mick Tatum MD Position: [facility] Physician - Primary Care Member Role: PCP Address: [address] [place] [address]- Telecom: Name: Svitlana Clark RN Position: [facility] RN Member Role: Primary Care Nurse Name: Yoana Guevara RN Position: [facility] RN Member Role: Primary Care Nurse Name: Pierre Groves RN Position: [facility] RN Member Role: Primary Care Nurse Name: Carmen Murphy NP Position: [facility] PCO Associate Professional Member Role: Primary Care Nurse Address: [address] [place] [address] - [place] [address]- Telecom: Name: Rylie Ordonez RN Position: [facility] RN Member Role: Primary Care Nurse Name: Marisa Negrete RN Position: [facility] AMB Nurse Member Role: Primary Care Nurse Name: Aditi Brown RN Position: [facility] Onco RN Member Role: Primary Care Nurse Name: Chana Cazares RN Position: [facility] RN Member Role: Primary Care Nurse Name: Toshia Urbina RN Position: [facility] RN Member Role: Primary Care Nurse Name: Isabel Gray Position: [facility] Inside Steward/Stewardess Member Role: President [employer] Name: Aniyah Sloan RN Position: [facility] SN RN Member Role: Primary Care Nurse Name: Rosemary Ramon RN Position: [facility] OB RN Member Role: Primary Care Nurse Name: Sneha Newton RN Position: [facility] Hospital Clinical Practice Consultant Member Role: Primary Care Nurse Care Team Related Persons Name: CLAUDIA URBINA Name: RALPH SÁNCHEZ Name: DONY CARCAMO Insurance Providers Guarantor name: FABIENNE [facility] Health Plan Information #: 1 Payer: MEDICARE PART B OUTPT Member Number: NA Policy Number: NA Group Number: NA Health Plan Information #: 2 Payer: MEDEX Member Number: NA Policy Number: NA Group Number: NA
--- OUTSIDE RECORDS SUMMARY | 2024-08-15 16:42 | XMS_ITS | Continuity of Care Document ---
Author Organization [facility] Jose lt Address [address] [place] [address]- Care Team Providers Care Motor Vehicle Licence Examiner Name Role Phone Rc CORDERO, Mick Clay Primary Care Physician [phone] Encounter [facility] Date(s): 06/18/24 - 07/18/24 [facility] [address] [place] [address]- Attending Physician: Admtr, Ar8 Admitting Physician: Admtr, Ar8 Referring Physician: Admtr, Ar8 Encounter Type: Triage Allergies, Adverse Reactions, Alerts Substance Criticality Severity Reaction Reaction Severity Status amoxicillin 1 Active Benadryl Shaking Active Cats Active Contrast Dye Active Dust Active egg-containing compound 2 Resolved Other Food Allergy 3 chicken , peppers, onions Resolved Other Environmental Allergy 4 [...] 6 07/23/96 Recorde d 1Result Comment: [facility]: [id number]. Screening Checklist reviewed with patient. Negative for any contraindications. 2Result Comment: [id number] 3Location History: DR LOAIZA 4Location History: DR [...] PACKS, # 30 capsule, 5 Refills, Maintenance, :24:00 PM EST, [facility], 157, cm, [...] Maintenance, 05/20/24 12:53:00 PM EDT, [id number], 157, cm, 05/01/24 11:05:00 EDT, Height Start [...] Quantity: 120.0 Unit: tablet Repeat number: 6 [facility], See Instructions, # 1 each, Refills 0, Tot. Refills 0, Maintenance, Please add in [facility] services to eval and treat new large [...] on: 06/27/18 Sex Sex Representation Female (finding) EKG study * Event Display: EKG Authored [...] Date: * Event Display: MRI Spine, Non- BH Authored Date: * Event Display: Ultrasound Lower Extremity, Non-BH Authored Date: Patient Care team information Care Team Personnel Name: Mojgan Lopez CNM Position: Reference Physician Member Role: Primary Care Nurse Address: [address] [place] [address]- [place] Telecom: Name: Estrellita Putnam RN Position: S RN Member Role: Primary Care Nurse Name: Marlen Kenny RN Position: [facility] RN Member Role: Primary Care Nurse Name: Toshia Muhammad RN Position: [facility] RN Supv Member Role: Primary Care Nurse Name: Suleman Jones RN Position: [facility] RN Member Role: Primary Care Nurse Name: Kathy Medina RN Position: [facility] ED RN W/OE and Tasks Member Role: Primary Care Nurse Name: Marguerite Wang RN Position: [facility] RN Member Role: Primary Care Nurse Name: Mick Tatum MD Position: [facility] Physician - Primary Care Member Role: PCP Address: [address] [place] [address]- [place] Telecom: Name: Svitlana Clark RN Position: [facility] RN Member Role: Primary Care Nurse Name: Yoana Guevara RN Position: [facility] RN Member Role: Primary Care Nurse Name: Pierre Groves RN Position: [facility] RN Member Role: Primary Care Nurse Name: Carmen Murphy NP Position: [facility] PCO Associate Professional Member Role: Primary Care Nurse Address: [address] [place] [address]- [place] Telecom: Name: Rylie Ordonez RN Position: [facility] RN Member Role: Primary Care Nurse Name: Marisa Negrete RN Position: [facility] AMB Nurse Member Role: Primary Care Nurse Name: Aditi Brown RN Position: [facility] Onco RN Member Role: Primary Care Nurse Name: Chana Cazares RN Position: [facility] RN Member Role: Primary Care Nurse Name: Toshia Urbina RN Position: [facility] RN Member Role: Primary Care Nurse Name: Isabel Gray Position: [facility] [place] Grain Commodity Manager Member Role: Laundry Superintendent Name: Aniyah Sloan RN Position: [facility] SN RN Member Role: Primary Care Nurse Name: Rosemary Ramon RN Position: [facility] OB RN Member Role: Primary Care Nurse Name: Sneha Newton RN Position: [facility] Hospital Small Boat Engineer Member Role: Primary Care Nurse Care Team Related Persons Name: CLAUDIA URIBNA Name: RALPH SÁNCHEZ Name: DONY CARCAMO Insurance Providers Guarantor name: FABIENNE CARLITOS [email or web address] Plan Information #: 1 Payer: MEDICARE PART B OUTPT Member Number: NA Policy Number: NA Group Number: NA Health Plan Information #: 2 Payer: MEDEX Member Number: NA Policy Number: NA Group Number: NA
--- OUTSIDE RECORDS SUMMARY | 2024-08-15 16:42 | XMS_ITS | Data Portability ---
Author Organization [facility] Pain Managem ent, PAIN OFFICE Address [address] [facility],[address] [address] Care Team Providers Care Shaper Hand Name Role Phone KOBI REED Primary Care Provider NABOR KIM Referring Provider [phone] Assessment Encounter Date Assessment Date Assessment LastModified by Organization Details LastModified Time 01/15/2020 01/15/2020 Maris Nash is a 79 year old woman with low back pain radiating into the right lower extremity. On exam ,she has pain on flexion. Straight leg raising test is positive on the right. MRI Lumbar spine shows Degenerative changes of the lumbar spine .Most prominently, at L5-S1, a combination of foraminal disc protrusion, facet hypertrophy, and right-sided lateral recess synovial cyst result in severe narrowing of the right subarticular zone and right neural foramen, with compression of both the exiting right L5 and traversing right S1 nerve roots. Trial of Lumbar epidural steroid injections under fluoroscopic guidance was recommended. The risks and benefits of the procedure were discussed in detail. She wishes to proceed. An appointment has been booked for the same. She needs a emergency vehicle driver on the day of the procedure. She is on Eliquis and needs to stop Eliquis for three days prior to the procedure per our anticoagulation guidelines. I have left a message for Dr. Reed , her PCP. [email or web address] Not available 01/16/2020 10:57:47 02/24/2020 02/24/2020 Maris Nash is a 79 year old woman with low back pain radiating into the right lower extremity. On exam ,she has pain on flexion. Straight leg raising test is positive on the right. MRI Lumbar spine shows Degenerative changes of the lumbar spine .Most prominently, at L5-S1, a combination of foraminal disc protrusion, facet hypertrophy, and right-sided lateral recess synovial cyst result in severe narrowing of the right subarticular zone and right neural foramen, with compression of both the exiting right L5 and traversing right S1 nerve roots. She is here for a trial of Lumbar epidural steroid injections under fluoroscopic guidance . The risks and benefits of the procedure were discussed in detail. She wishes to proceed. She is on Eliquis and can restart tomorrow. She needs to follow up in 4 weeks by telehealth visit [email or web address] Not available 02/24/2020 11:22:58 Plan of Treatment Reminders Order Date Submit Date Provider Last Modified By Organization Details Last Modified Time Details Appointments None record ed. Lab None record ed. Referral None record ed. Procedures None record ed. Surgeries None record ed. Imaging None record ed. Medication Orders None record ed. Patient TargetsNo targets recorded. Patient Instructions Encounter Date Encounter Id Patient Instructions Last Modified By Organization Details Last Modified Time 01/15/2020 [id number] She was advised against bed rest lasting longer than four days and to continue activities as tolerated. [email or web address] Not available 01/16/2020 10:57:52 02/24/2020 [id number] She was advised against bed rest lasting longer than four days and to continue activities as tolerated. [email or web address] Not available 02/24/2020 11:22:12 Reason for Referral None Reported. Problems Name Problem SNOMED Code Status Onset Date Resolution Date Notes Provider Name and Address Organization Details Recorded Time Lumbosacral radiculopathy [id number] Rich palma MD [address] [facility] , [address], [facility] [place], [address], [place] [facility] 0 10:22:34 Spinal stenosis of lumbar region 82416007 Rich palma MD [address] , [address], [place], [address], [place] [facility] 0 09:28:05 Degeneration of lumbar intervertebral disc 11286771 Rich palma MD [address] , [address], [place], [address], [place] [facility] 0 09:28:15 Lumbosacral spondylosis without myelopathy [id number] Rich palma MD [address] [facility] , [address], [place], [address], [place] [facility] 0 09:28:29 Problem Notes None recorded. Procedures Surgical History Date Name Laterality Status Provider Name and Address Organization Details Recorded Time 02/24/20 20 Lumbar Epidural steroid injection under fluoroscopic guidance completed Frank Pathak MD [address] [facility] , [address], [place], [address], [place] [facility] 02/24/2020 11:21:33 Tonsillectomy completed Frank Pathak MD [address] [facility] , [address], [place], [address], [place] [facility] 01/15/2020 10:25:16 Appendectomy completed Frank Pathak MD [address] [facility] , [address], [place], [address], [place] [facility] 01/15/2020 10:25:26 Cholecystectomy completed Frank Pathak MD [address] [facility] , [address], [place], [address], [place] [facility] 01/15/2020 10:26:10 Eye Surgery completed Frank Pathak MD [address] [facility] , [address], [place], [address], [place] [facility] 01/15/2020 10:26:27 complete repair of rotator cuff completed Frank Pathak MD [address] [facility] , [address], [place], [address], [place] [facility] 01/15/2020 10:26:46 Imaging Results None recorded. Procedure Notes None recorded. Medical Equipment None Reported. Allergies Allergen ID Allergen Name Allergen Category Reaction Reaction Severity Criticality Documentation Date Start Date Code Code System Note Provider Name and Address Organization Details Recorded Time 12692 Iodinated contrast media (substanc e) medicatio n hives Not available Not available 01/15/2020 85016 2003 SNOMED Frank pamla MD [address] , [address], [place], [address], [place] [facility] 0 10:59:38 Medications Name Sig Start Date Stop Date Status Note LastModified by Organization Details LastModified Time latanoprost 0.005 % eye drops INSTILL 1 DROP INTO BOTH EYES EVERY EVENING DIRECTED active Not Available Not Available No t Available prednisone 10 mg tablet TAKE 4 TABLETS BY MOUTH EVERY DAY FOR 5 DAYS 02/23 completed Not Available Not Available Not Available prednisone 20 mg tablet TAKE 2 TABLETS BY MOUTH EVERY DAY 01/14 completed Not Available Not Available Not Available sulfamethox azole 800 mg-trimetho prim 160 mg tablet TAKE 1 TABLET BY MOUTH EVERY 12 HOURS FOR 7 DAYS 01/14 completed Not Available Not Available Not Available tramadol 50 mg tablet TAKE 1 TABLET BY MOUTH EVERY 12 HOURS active Not Available Not Available No t Available benzonatate 100 mg capsule TAKE 1 CAPSULE BY MOUTH 3 TIMES A DAY 01/14 completed Not Available Not Available Not Available ropinirole 0.5 mg tablet active Not Available Not Available Not Available gabapentin 300 mg capsule active Not Available Not Available Not Available omeprazole 20 mg capsule,del ayed release TAKE 1 CAPSULE BY MOUTH EVERY DAY 01/14 completed Not Available Not Available Not Available dorzolamide 22.3 mg-timolol 6.8 mg/mL eye drops INSTILL 1 DROP INTO BOTH EYES TWICE A DAY DIRECTED active Not Available Not Available No t Available budesonide DR - ER 3 mg capsule,del ayed,extend ed release TAKE 1 CAPSULE BY MOUTH EVERY DAY active Not Available Not Available No t Available levofloxaci n 500 mg tablet 02/23 completed Not Available Not Available Not Available albuterol sulfate HFA 90 mcg/actuati on aerosol inhaler active Not Available Not Available Not Available fluticasone propionate 50 mcg/actuati on nasal spray,suspe nsion USE 2 SPRAYS IN EACH NOSTRIL DAILY 02/23 completed Not Available Not Available Not Available mesalamine 1.2 gram tablet,alida yed release active Not Available Not Available Not Available diclofenac 1 % topical gel APPLY TO AFFECTED AREA 4 TIMES A DAY active Not Available Not Available No t Available Eliquis 5 mg tablet TAKE 1 TABLET BY MOUTH TWICE A DAY active Not Available Not Available No t Available Vitals Date Recorded Body height Body mass index (BMI) Body weight Heart rate Oxygen saturation Oxygen saturation in Arterial blood by Pulse oximetry Systolic blood pressure Diastolic blood pressure Provider Name and Address Organization Details Last Updated DateTime 0 157.48 cm 36.6 kg/m2 89861.4 7 g 73 /min 93 % 93 % 170 mm[Hg] 67 mm[Hg] Frank palma MD [address] , [address], [place], [address], [place] [facility] 0 10:16:49 Date Recorded Body height Heart rate Oxygen saturation Oxygen saturation in Arterial blood by Pulse oximetry Systolic blood pressure Diastolic blood pressure Provider Name and Address Organization Details Last Updated DateTime 0 157.48 cm 86 /min 96 % 96 % 184 mm[Hg] 85 mm[Hg] Loretta Riverawell [place] [facility] 0 10:58:24 Social History Question Answer Notes LastModified by Organizat ion Details LastModified Time Tobacco Smoking Status Never Smoker Frank Pathak MD [address] , [address], [place], [address], [place] [facility] 01/15/2020 10:24:20 What Is Your Level Of Alcohol Consumption? None Information not available 01/15/2020 Which Illicit Or Recreational Drugs Have You Used? None Information not available 01/15/2020 Education 12 Information n ot available 01/15/2020 What Is Your Occupation? Retired Information not available 01/15/2020 Live Alone Or With Others? Alone Information not available 01/15/2020 Marital Status Informati on not available 01/15/2020 Sex: Unknown Functional Status None recorded. Mental Status None recorded. Family History Relationship Description Onset Age of this Age Resolved Age Notes LastModified by Organization Details LastModified Time Son Arthritis [email or web address] Not avail able 01/15/2020 10:23:05 Unspecified Relation Leukemia grands on [email or web address] Not available 01/15/2020 10:23:56 Mother Malignant tumor of lung [email or web address] Not available 12/22 10:27:10 Father Heart disease tmanikantan Not available 12/22 10:27:24 Brother Multiple sclerosis [email or web address] Not available 12/22 10:27:48 Medical History Condition Response Irritable Bowel Syndrome Y Gynecological HistoryNo gynecological history recorded. Obstetrics History GPAL:G 0 P 0 0 0 0 Past Encounters Encounter ID Performer Location Encounter Start Date Encounter Closed Date Diagnosis/Indication Diagnosis SNOMED-CT Code Diagnosis ICD10 Code Diagnosis Note [id number] Frank Pathak MD PAIN OFFICE [address] [facility] [place] [address] 01/15/2020 09:43:34 01/16/2020 10:58:45 Lumbosacral radiculopathy 2547126 M54.17 Spinal lana nosis of lumbar region 04870527 M48.061 Degenerati on of lumbar intervertebral disc 37034504 M51.36 Lumbosacra l spondylosis without myelopathy 01848602 M47.817 [id number] Frank Pathak MD PAIN OFFICE [address] [facility] [place] [address] 02/24/2020 10:56:20 02/24/2020 11:25:15 Lumbosacral radiculopathy 5031553 M54.17 Spinal lana nosis of lumbar region 26502406 M48.061 Degenerati on of lumbar intervertebral disc 88399433 M51.36 Lumbosacra l spondylosis without myelopathy 81614738 M47.817 Health Concerns Section Related Observation LastModified by Organization Detai ls LastModified Time None Recorded Concern Status LastModified by Organization Details LastModified Time None Recorded Advance Directives Directive None Recorded Payers Encounter Date Sequence Insurance Name Policy Number Policy Stinson Covered Member ID Stinson Member ID Guarantor Name 01/15/2020 1 [place] [employer] Maris Nash [id number] Maris ByrdCharity 01/15/2020 2 [place] [id number] Maris Moodyardi [id number] Maris ByrdCharity 02/24/2020 1 [place] Maris Nash [id number] Maris ByrdCharity 02/24/2020 2 [place] [id number] Maris Nash [id number] Maris Nash Notes Date Note Type Note Provider Name and Address Organization Details Recorded Time 01/15/2020 text/html Maris Nash is a 79 year old woman with complaints of low back pain radiating into right lower extremity. The pain started 2 years ago and is becoming greater . She started to have severe pain radiating into right lower extremity. She describes the pain as a shooting pain , sharp from her right buttock region to the right leg with numbness, tingling and weakness in her right lower extremity. Current pain level is 5-10/10. Pain is aggravated by standing and walking . Pain is relieved a little with application of heat and laying down. She is unable to sleep due to positioning and awakens multiple times at night due to pain. She has no history of bladder or bowel incontinence.MRI Lumbar spine shows Degenerative changes of the lumbar spine .Most prominently, at L5-S1, a combination of foraminal disc protrusion, facet hypertrophy, and right-sided lateral recess synovial cyst result in severe narrowing of the right subarticular zone and right neural foramen, with compression of both the exiting right L5 and traversing right S1 nerve rootsShe has trialed physical therapy with some pain benefit. She had a courses of medrol dose pack with some pain benefit. Chiropractic treatment did not help. Tramadol helped. Frank Pathak MD [address] [facility] , [address], [place], [address], [facility] - Pain Management 01/19/2020 09:19:01 02/24/2020 text/html She is here for a trial of lumbar epidural steroid injection under fluoroscopic guidance. Frank Pathak MD [address] [facility] , [address], [place], [address], [facility] - Pain Management 02/24/2020 14:07:17 OBGyn Episode No OBEpisode recorded.
--- OUTSIDE RECORDS SUMMARY | 2024-08-15 16:43 | XMS_ITS | Continuity of Care Document ---
Author Organization [facility] Jose lt Address [address] [place] [address]- Care Team Providers Care Math Coach Name Role Phone Rc CORDERO, Mick Clay Primary Care Physician [phone] Encounter [facility] Date(s): 06/16/24 - 07/16/24 [facility] Adult [address] [place] [address]- Encounter Type: Triage Allergies, Adverse Reactions, Alerts Substance Criticality Severity Reaction Reaction Severity Status amoxicillin 1 Active Benadryl Shaking Active Dust Active Other Food Allergy 2 chicken , peppers, onions Resolved Other Environmental Allergy 3 Active egg-containing compound 4 Resolved Cats Active Contrast Dye Active 1Tolerates ceftriaxone 2Pt states she eats chicken [...] (Td) 6 07/23/96 Recorde d 1Result Comment: [facility]: [id number]. Screening Checklist reviewed with patient. Negative for any contraindications. 2Result Comment: [id number] 3Location History: DR LOAIZA 4Location History: DR [...] 1 Refills, Maintenance, 10/30/23 9:30:00 AM EDT, [id number], 157, cm, 10/26/23 13:58:00 EDT, Height, 94.3, kg, 01/19/22 4:25:00 EDT, Dry Weight Start Date: 10/30/23 Status: Ordered Quantity: 90.0 Unit: tablet Repeat number: 1 azaTHIOprine 50 mg oral tablet 50 mg, 1, tablet, By Mouth, 2 times a day, # 60 tablet, Refills 5, Tot. Refills 5, Maintenance, 06/19/24 3:46:00 AM EST, Route to Pharmacy Electronically, [facility]/pharmacy #[id number], Partial fill upon patient request if the prescription is for a schedule II opioid drug., 157, cm, 06/18/24 16:08:00 EST, Height Start Date: 06/19/24 Status: Ordered Quantity: 60.0 Unit: tablet Repeat number: 6 budesonide 3 mg oral delayed release capsule 3 capsule = 9 mg, By Mouth, Daily in AM, 0 Refills, Maintenance, 03/21/23 2:39:00 PM EDT, Partial fill upon patient request if the prescription is for a schedule II opioid drug. Start Date: 03/21/23 Status: Ordered Repeat number: 1 dapagliflozin 10 mg oral tablet 1 tablet = 10 mg, By Mouth, Daily, # 30 tablet, 3 Refills, Maintenance, 07/01/24 11:59:00 AM EST, Tablet, [id number], Partial fill upon patient request if the prescription is for a schedule II opioid drug., 157, cm, 07/01/24 11:34:00 EST, Height Start Date: 07/01/24 Stop Date: 10/29/24 Status: Ordered Quantity: 30.0 Unit: tablet Repeat number: 4 duloxetine 20 mg oral enteric coated capsule 1 capsule, By Mouth, Daily at bedtime, # 90 capsule, 3 Refills, Maintenance, 09/26/23 5:28:00 AM EST,[id number], 157, cm, 09/18/23 11:23:00 EST, Height, 94.3, kg, 01/19/22 4:25:00 EDT, Dry Weight Start Date: 09/26/23 Status: Ordered Quantity: 90.0 Unit: capsule Repeat number: 1 Eliquis 5 mg oral tablet 1 tablet, By Mouth, 2 times a day, # 180 tablet, 3 Refills, Maintenance, 06/15/23 1:44:00 AM EST, [facility], 157, cm, 05/31/23 6:38:00 EST, Height, 94.3, kg, 01/19/22 4:25:00 EDT, Dry Weight Start Date: 06/15/23 Status: Ordered Quantity: 180.0 Unit: tablet Repeat number: 1 gabapentin 300 mg oral capsule 300 mg, 1, capsule, By Mouth, 2 times a day, Refills 0, Maintenance, 06/18/24 4:05:00 PM EST, Partial fill upon patient request if the prescription is for a schedule II opioid drug. Start Date: 06/18/24 Status: Ordered Repeat number: 1 isosorbide mononitrate 30 mg oral tablet, extended release 30 mg, 1, tablet, By Mouth, Daily in AM, Hold for SBP less than 90, Refills 0, Maintenance, 05/01/24 11:15:00 AM EDT, Partial fill upon patient request if the prescription is for a schedule II opioiddrug. Start Date: 05/01/24 Status: Ordered Repeat number: 1 Metoprolol Succinate ER 25 mg oral tablet, extended release 1 tablet, By Mouth, Daily, # 30 tablet, 5 Refills, Maintenance, 01/17/24 7:34:00 AM EDT, [id number], 157, cm, 11/13/23 16:25:00 EDT, Height, 94.3, [...] 0 Refills, Maintenance, 05/20/24 12:53:00 PM EDT, [facility], 157, cm, 05/01/24 11:05:00 EDT, Height Start Date: 05/20/24 Status: Ordered Quantity: 100.0 Unit: tablet Repeat number: 1 rOPINIRole 0.5 mg oral tablet 1 tablet, By Mouth, 4 times a day, # 360 tablet, 1 Refills, Maintenance, 04/19/24 3:32:00 PM EDT, [facility], 157, cm, 02/06/24 11:09:00 EDT, Height Start Date: 04/19/24 Status: Ordered Quantity: 360.0 Unit: tablet Repeat number: 1 rOPINIRole 1 mg oral tablet 1 tablet = 1 mg, By Mouth, Daily at bedtime, 0 Refills, Maintenance, 05/01/24 11:20:00 AM EDT, Partial fill upon patient request if the prescription is for a schedule II opioid drug. Start Date: 05/01/24 Status: Ordered Repeat number: 1 [facility], See Instructions, # 1 each, Refills 0, Tot. Refills 0, Maintenance, Please add in [facility] services to eval and treat new large [...] 12:45:00 PM EST, Route to Pharmacy Electronically, [facility]/pharmacy #[id number], Partial fill upon patient request if the [...] Physician Member Role: Primary Care Nurse Address: [address] [place] [address] Telecom: Name: Estrellita Putnam RN Position: S RN Member Role: Primary Care Nurse Name: Marlen Kenny RN Position: [facility] RN Member Role: Primary Care Nurse Name: Toshia Muhammad RN Position: [facility] RN Supv Member Role: Primary Care Nurse Name: Suleman Jones RN Position: [facility] RN Member Role: Primary Care Nurse Name: Kathy Mednia RN Position: [facility] ED RN W/OE and Tasks Member Role: Primary Care Nurse Name: Marguerite Wang RN Position: [facility] RN Member Role: Primary Care Nurse Name: Mick Tatum MD Position: [facility] Physician - Primary Care Member Role: PCP Address: [address] [place] [address]- Telecom: Name: Svitlana Clark RN Position: [facility] RN Member Role: Primary Care Nurse Name: Yoana Guevara RN Position: [facility] RN Member Role: Primary Care Nurse Name: Pierre Groves RN Position: [facility] RN Member Role: Primary Care Nurse Name: Carmen Murphy NP Position: [facility] PCO Associate Professional Member Role: Primary Care Nurse Address: [address] [place] [address] [place] Telecom: Name: Rylie Ordonez RN Position: [facility] RN Member Role: Primary Care Nurse Name: Marisa Negrete RN Position: [facility] AMB Nurse Member Role: Primary Care Nurse Name: Aditi Brown RN Position: [facility] Onco RN Member Role: Primary Care Nurse Name: Chana Cazares RN Position: [facility] RN Member Role: Primary Care Nurse Name: Toshia Urbina RN Position: [facility] RN Member Role: Primary Care Nurse Name: Isabel Gray Position: [facility] [place] Painter Spray Member Role: Insurance Claim Approver Name: Aniyah Sloan RN Position: [facility] SN RN Member Role: Primary Care Nurse Name: Rosemary Ramon RN Position: [facility] OB RN Member Role: Primary Care Nurse Name: Sneha Newton RN Position: [facility] Hospital Retirement Actuary Member Role: Primary Care Nurse Care Team Related Persons Name: CLAUDIA URBINA Name: RALPH SÁNCHEZ Name: DONY CARCAMO Insurance Providers Guarantor name: [facility] Health Plan Information #: 1 Payer: MEDICARE PART B OUTPT Member Number: NA Policy Number: NA Group Number: NA Health Plan Information #: 2 Payer: MEDEX Member Number: NA Policy Number: NA Group Number: NA
--- OUTSIDE RECORDS SUMMARY | 2024-08-15 16:43 | XMS_ITS | Data Portability ---
Author Organization [facility], [facility] Address [address] [place] [address] Assessment No assessment recorded. Plan of Treatment Reminders Order Date Submit Date Provider Last Modified By Organization Details Last Modified Time Details Appointments RECHECK 15 2024 10:00A M Chadwick Palencia PA-C Not available Not available Not available Lab None recorded . Referral None recorded . Procedures None recorded . Surgeries None recorded . Imaging None recorded . Medication Orders None recorded . Patient TargetsNo targets recorded. Patient InstructionsNo instructions recorded. Reason for Referral None Reported. Results Created Date Observation Date Name Description Value Unit Range Abnormal Flag Note LastModifiedBy Organization Detail LastModifiedTime 03/21/20 24 08/30/2019 imagi ng/di agnos tic resul t No observ ation record ed. [email or web address] Available 02/22 23:29:35 03/21/20 24 07/18/2019 imagi ng/di agnos tic resul t No observ ation record ed. [email or web address] Available 02/22 23:29:41 03/21/20 24 03/10/2022 imagi ng/di agnos tic resul t No observ ation record ed. [email or web address] Available 02/22 23:29:47 03/21/20 24 12/22/2021 imagi ng/di agnos tic resul t No observ ation record ed. [email or web address] Available 02/22 23:29:49 Result Notes None recorded. Procedures Surgical History Date Name Laterality Status Provider Name and Address Organization Details Recorded Time 4 Sports Shoulder 4&1 cancelled Chadwick Palencia PA-C [address], [place], [address], [facility] - [facility] 05/27/2024 13:07:08 4 Sports Shoulder 4&1 completed Chadwick Palencia PA-C [address], [place], [address], [facility] - [facility] 11/01/2023 14:04:41 Imaging Results Imaging Date Name Status LastModified by Organiz ation Details LastModified Time 08/30/2019 imaging/diag nostic result completed Information not available 03/21/2024 23:29:35 07/18/2019 imaging/diag nostic result completed Information not available 03/21/2024 23:29:41 03/10/2022 imaging/diag nostic result completed Information not available 03/21/2024 23:29:47 12/22/2021 imaging/diag nostic result completed Information not available 03/21/2024 23:29:49 Procedure Notes None recorded. Medical Equipment None Reported. Allergies Allergen ID Allergen Name Allergen Category Reaction Reaction Severity Criticality Documentation Date Start Date Code Code System Note Provider Name and Address Organization Details Recorded Time 38719 Iodinated contrast media (substanc e) medicatio n Not available Not available Not available 09/24/20232017 01740 2004 SNOMED Aller gyNam e: 'Ivp Dye'; Aller gyRea ction : 'Shoc k/Unc onsci ousne ss'; Not Available [facility] 4 14:03:51 38012 tomato allergeni c extract food Not available Not available Not available 09/24/20232019 81229 9 RxNorm Not Available [facility] 4 14:03:51 43292 egg extract food,medi cation Not available Not available Not available 09/24/20232019 86548 15 RxNorm Not Available [facility] 14:03:51 95701 amoxicill in trihydrat e medicatio n Not available Not available Not available 09/24/20232019 93522 8 RxNorm Not Available [facility] 4 14:03:51 Medications Name Sig Start Date Stop Date Status Note LastModified by Organization Details LastModified Time atorvastatin 40 mg tablet TAKE 1 TABLET BY MOUTH EVERYDAY AT BEDTIME active Not Available Not Available No t Available doxycycline hyclate 100 mg capsule active Not Available Not Available N ot Available torsemide 20 mg tablet TAKE 2 TABLETS BY MOUTH EVERY DAY active Not Available Not Available No t Available fluconazole 150 mg tablet active Not Available Not Available Not Available metoprolol succinate ER 50 mg tablet,exten ded release 24 hr TAKE 1 TABLET BY MOUTH EVERY DAY active Not Available Not Available No t Available isosorbide mononitrate ER 30 mg tablet,exten ded release 24 hr TAKE 1 TABLET BY MOUTH EVERY DAY active Not Available Not Available No t Available gabapentin 400 mg capsule TAKE 2 CAPSULES BY MOUTH 3 TIMES A DAY active Not Available Not Available Not Available clobetasol 0.05 % topical cream APPLY THIN COAT TO AFFECTED AREA TWICE A DAY active Not Available Not Available No t Available clotrimazole 1 % vaginal cream 1 APPFUL VAGINALLY BEDTIME FOR 14 DAYS active Not Available Not Available No t Available azathioprine 50 mg tablet TAKE 1 TABLET BY MOUTH TWO TIMES A DAY active Not Available Not Available Not Available spironolacto ne 25 mg tablet TAKE 1 TABLET BY MOUTH TWICE A DAY active Not Available Not Available No t Available isosorbide mononitrate ER 60 mg tablet,exten ded release 24 hr TAKE 1 TABLET BY MOUTH TWICE A DAY active Not Available Not Available No t Available hydromorphon e 2 mg tablet TAKE 1 TABLET BY MOUTH EVERY 6 HOURS NEEDED FOR SEVERE PAIN active Not Available Not Available Not Available pantoprazole 40 mg tablet,delay ed release TAKE 1 TABLET BY MOUTH DAILY active Not Available Not Available Not Available pseudoephedr ine-guaifene sin ER 80-700 mg tablet,exten ded release Percocet 5-325MG Tablet 1 every 4 - 6 hours as needed 2008 active Statu s: 'Curr ent'; Not Available Not Available Not Available ropinirole 0.5 mg tablet TAKE 1 TABLET BY MOUTH 4 TIMES A DAY active Not Available Not Available Not Available nitroglyceri n 0.4 mg sublingual tablet PLEASE SEE ATTACHED FOR DETAILED DIRECTIONS active Not Available Not Available N ot Available metoprolol succinate ER 25 mg tablet,exten ded release 24 hr TAKE 1 TABLET BY MOUTH EVERY DAY WITH 50MG TABLET FOR TOTAL OF 75MG DAILY active Not Available Not Available No t Available lorazepam 1 mg tablet TAKE 1 TABLET BY MOUTH 1 HOUR PRIOR TO PROCEDURE active Not Available Not Available No t Available budesonide DR - ER 3 mg capsule,alida yed,extended release TAKE 3 CAPSULES BY MOUTH DAILY active Not Available Not Available Not Available clotrimazole 1 % topical cream APPLY TO AFFECTED AREA TWICE A DAY FOR 2 WEEKS active Not Available Not Available No t Available amoxicillin 500 mg-potassium clavulanate 125 mg tablet TAKE 1 TABLET BY MOUTH EVERY 8 HOURS active Not Available Not Available No t Available oxycodone 5 mg tablet TAKE 1 TABLET BY MOUTH TWICE A DAY NEEDED FOR PAIN MODERATE active Not Available Not Available No t Available mirtazapine 7.5 mg tablet TAKE 1 TABLET BY MOUTH EVERYDAY AT BEDTIME active Not Available Not Available No t Available duloxetine 20 mg capsule,alida yed release TAKE 1 CAPSULE BY MOUTH AT BEDTIME active Not Available Not Available No t Available Cosopt Cosopt 2-0.5% Solution twice a day 2007 active Statu s: 'Curr ent'; Not Available Not Available Not Available lidocaine 5 % topical ointment APPLY TO AFFECTED AREA 1-4 TIMES DAILY NEEDED active Not Available Not Available No t Available Eliquis 5 mg tablet TAKE 1 TABLET BY MOUTH TWICE A DAY active Not Available Not Available No t Available Jardiance 10 mg tablet TAKE 1 TABLET BY MOUTH EVERY MORNING FOR 90 DAYS active Not Available Not Available No t Available Vitals Date Recorded Body height Body mass index (BMI) Body weight Provider Name and Address Organization Details Last Updated DateTime 11/01/2023 157.48 cm 38.4 kg/m2 16755.4 g See Flores [place] - [facility] 11/01/2023 13:39:23 Social History None recorded. Functional Status None recorded. Mental Status None recorded. Family History Nothing Reported. Medical History No medical history recorded. Gynecological HistoryNo gynecological history recorded. Obstetrics History GPAL:G 0 P 0 0 0 0 Past Encounters Encounter ID Performer Location Encounter Start Date Encounter Closed Date Diagnosis/Indication Diagnosis SNOMED-CT Code Diagnosis ICD10 Code Diagnosis Note [id number] JACQUES Vasquez [address] [place] [address] 11/01/2023 12:54:59 11/01/2023 14:34:21 Osteoarthritis of joint of left shoulder region [id number] 49734 M19.012 Health Concerns Section Related Observation LastModified by Organization Detai ls LastModified Time None Recorded Concern Status LastModified by Organization Details LastModified Time None Recorded Advance Directives Directive None Recorded Payers Encounter Date Sequence Insurance Name Policy Number Policy Stinson Covered Member ID Stinson Member ID Guarantor Name 11/01/2023 1 [place] [employer] [employer] Maris Nash [id number] Maris Moodyardi 11/01/2023 2 [place] [id number] Maris Danna Charity [id number] Marisalexsandra Nash Notes Date Note Type Note Provider Name and Address Organization Details Recorded Time 11/01/2023 text/html I am seeing the patient today under the supervision of {{Rosey* Brothnilton Naqvi}} who was available but who did not see the patient. HPI: Patient returns for follow-up of left shoulder pain. Patient has noted glenohumeral joint arthritis of the left shoulder. Patient has been doing well with conservative management. Past family, medical, social history and review of systems has been reviewed, updated and is located in the patient? s chart. Examination: The patient is well appearing and in no apparent distress. Alert and oriented x3. Gait is symmetric. No significant swelling warmth or erythema of the left shoulder. Range of motion of the shoulder: Decrease in all planes with pain and crepitus. 4-5 strength of the left shoulder. Peripheral, vascular, lymphatic examination, skin, neurological, coordination, reflexes, sensation are within normal limits. 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 Plan: Reviewed diagnosis with the patient today in the office. Discussed role of conservative management versus total shoulder arthroplasty. Activity modification discussed. P.r.n. Tylenol or NSAIDs can be used. Discussed the role of injection therapies. Injected the glenohumeral joint of the left shoulder. Injected 80 mg of Kenalog, and 10 cc of 1/4% Marcaine. Follow up p.r.n. Chadwick Palencia PA-C [address] [place] [address] [address], [place], [address], [facility] 11/01/2023 14:05:15 OBGyn Episode No OBEpisode recorded.
--- OUTSIDE RECORDS SUMMARY | 2024-08-15 16:43 | XMS_ITS | Continuity of Care Document ---
Author Organization [facility] Address [address] [place] [address]- Care Team Providers Care Art Editor Name Role Phone cR CORDERO, Mick Clay Primary Care Physician Encounter [facility] [place] Date(s): 06/26/24 - 07/26/24 [facility] [address] [place] [address]- Encounter Type: Triage Allergies, Adverse Reactions, Alerts [...] Recorde d 1Result Comment: [facility]: [id number]. Screening Checklist reviewed with patient. Negative for any contraindications. 2Result Comment: [id number] 3Location History: DR LOAIZA 4Location History: DR [...] Daily, # 90 tablet, 3 Refills, Maintenance, 07/22/24 4:51:00 AM EST, [facility], 157, cm, 07/01/24 11:34:00 EST, Height Start Date: 07/22/24 Status: Ordered Quantity: 90.0 Unit: tablet Repeat number: 1 nitroglycerin 0.4 mg sublingual tablet See Instructions, 1 TABLET SUBLINGUAL EVERY 5 MINUTES FOR 3 DOSES/TIMES NEEDED FOR CHEST PAIN. NOT TO EXCEED 3 DOSES/15 MIN--IF PAIN PERSISTS, SEEK MEDICAL ATTENTION, # 100 tablet, 0 Refills, Maintenance, 05/20/24 12:53:00 PM EDT, [facility], 157, cm, 05/01/24 11:05:00 EDT, Height Start [...] Quantity: 120.0 Unit: tablet Repeat number: 6 CUSTODIAL CUSTODIAL, See Instructions, # 1 each, Refills 0, Tot. Refills 0, Maintenance, Please add in residential services to eval and treat new large [...] Physician Member Role: Primary Care Nurse Address: [address] [place] [address]- Telecom: Name: Estrellita Putnam RN Position: [facility] - Primary Care Member Role: PCP Address: [address] [place] [address]- Telecom: Name: Svitlana Clark RN Position: [facility] [...] Professional Member Role: Primary Care Nurse Address: [address] [place] [id number] Telecom: Name: Rylie Ordonez RN Position: [facility] [...] Gray Position: [facility] [place] Mold Mover Member Role: Outside Sales Account Manager Name: Aniyah Sloan RN Position: [facility] SN RN Member Role: Primary Care Nurse Name: Rosemary Ramon RN Position: [facility] OB RN Member Role: Primary Care Nurse Name: Sneha Newton RN Position: [facility] Tire Maintenance Technician Member Role: Primary Care Nurse Care [...]
--- OUTSIDE RECORDS SUMMARY | 2024-08-15 16:43 | XMS_ITS | Continuity of Care Document ---
Author Organization [facility] Address [address] [place] [address]- Care Team Providers Care Comp Field Case Manager Name Role Phone Rc CORDERO, Mick Clay Primary Care Physician Encounter [facility] Date(s): 06/16/24 - 07/16/24 [facility] [address] [place] [address]- Encounter Type: Triage Allergies, Adverse Reactions, Alerts Substance Criticality Severity Reaction Reaction Severity Status amoxicillin 1 Active Dust Active Other Food Allergy 2 chicken , peppers, onions Resolved Other Environmental Allergy 3 Active Benadryl Shaking Active Cats Active Contrast Dye Active egg-containing compound 4 Resolved 1Tolerates ceftriaxone 2Pt states she eats chicken [...] (Td) 6 07/23/96 Recorde d 1Result Comment: [facility]: [id number]. Screening Checklist reviewed with patient. Negative for any contraindications. 2Result Comment: [id number] 3Location History: DR LOAIZA 4Location History: DR [...] 1 Refills, Maintenance, 10/30/23 9:30:00 AM EDT, [facility], 157, cm, 10/26/23 13:58:00 EDT, Height, 94.3, kg, 01/19/22 4:25:00 EDT, Dry Weight Start Date: 10/30/23 Status: Ordered Quantity: 90.0 Unit: tablet Repeat number: 1 azaTHIOprine 50 mg oral tablet 50 mg, 1, tablet, By Mouth, 2 times a day, # 60 tablet, Refills 5, Tot. Refills 5, Maintenance, 06/19/24 3:46:00 AM EST, Route to Pharmacy Electronically, [facility]/pharmacy #[id number], Partial fill upon patient request if the [...] Refills, Maintenance, 07/01/24 11:59:00 AM EST, Tablet, [facility]/pharmacy #[id number], Partial fill upon patient [...] Refills, Maintenance, 09/26/23 5:28:00 AM EST[facility], 157, cm, 09/18/23 11:23:00 EST, Height, 94.3, kg, 01/19/22 4:25:00 EDT, Dry Weight Start Date: 09/26/23 Status: Ordered Quantity: 90.0 Unit: capsule Repeat number: 1 Eliquis 5 mg oral tablet 1 tablet, By Mouth, 2 times a day, # 180 tablet, 3 Refills, Maintenance, 06/15/23 1:44:00 AM EST, [facility], 157, cm, 05/31/23 6:38:00 EST, Height, 94.3, [...] Maintenance, 01/17/24 7:34:00 AM EDT, [facility], 157, cm, 11/13/23 16:25:00 EDT, Height, 94.3, [...] 0 Refills, Maintenance, 05/20/24 12:53:00 PM EDT, [facility], 157, cm, 05/01/24 11:05:00 EDT, Height Start Date: 05/20/24 Status: Ordered Quantity: 100.0 Unit: tablet Repeat number: 1 rOPINIRole 0.5 mg oral tablet 1 tablet, By Mouth, 4 times a day, # 360 tablet, 1 Refills, Maintenance, 04/19/24 3:32:00 PM EDT, [facility], 157, cm, 02/06/24 11:09:00 EDT, Height Start Date: 04/19/24 Status: Ordered Quantity: 360.0 Unit: tablet Repeat number: 1 rOPINIRole 1 mg oral tablet 1 tablet = 1 mg, By Mouth, Daily at bedtime, 0 Refills, Maintenance, 05/01/24 11:20:00 AM EDT, Partial fill upon patient request if the prescription is for a schedule II opioid drug. Start Date: 05/01/24 Status: Ordered Repeat number: 1 [facility], See Instructions, # 1 each, Refills 0, Tot. Refills 0, Maintenance, Please add in snf services to eval and treat new large [...] 12:45:00 PM EST, Route to Pharmacy Electronically, [facility]/pharmacy #[id number], Partial fill upon patient request if the [...] Physician Member Role: Primary Care Nurse Address: [address] [place] [address] Keen IO: Name: Estrellita Putnam RN Position: [facility] RN Member Role: Primary Care Nurse Name: Marlen Kenny RN Position: [facility] RN Member Role: Primary Care Nurse Name: Toshia Muhammad RN Position: [facility] RN Supv Member Role: Primary Care Nurse Name: Suleman Jones RN Position: [facility] RN Member Role: Primary Care Nurse Name: Kathy Medina RN Position: [facility] ED RN W/OE and Tasks Member Role: Primary Care Nurse Name: Marguerite Wang RN Position: [facility] RN Member Role: Primary Care Nurse Name: Mick Tatum MD Position: [facility] Physician - Primary Care Member Role: PCP Address: [address] [place] [address]- Telecom: Name: Svitlana Clark RN Position: [facility] RN Member Role: Primary Care Nurse Name: Yoana Guevara RN Position: [facility] RN Member Role: Primary Care Nurse Name: Pierre Groves RN Position: [facility] RN Member Role: Primary Care Nurse Name: Carmen Murphy NP Position: [facility] PCO Associate Professional Member Role: Primary Care Nurse Address: [address] [place] [address] QH Telecom: Name: Rylie Ordonez RN [facility] [...] Isabel Gray Position: [facility] [place] Agent Contract Clerk Member Role: Rn Homecare Name: Aniyah Sloan RN Position: [facility] SN RN Member Role: Primary Care Nurse Name: Rosemary Ramon RN Position: [facility] OB RN Member Role: Primary Care Nurse Name: Sneha Newton RN Position: [facility] Hospital Construction Equipment Operator Member Role: Primary Care Nurse Care Team Related Persons Name: CLAUDIA URBINA Name: RALPH SÁNCHEZ Name: DONY CARCAMO Insurance Providers Guarantor name: FABIENNE [facility] Health Plan Information #: 1 Payer: MEDICARE PART B OUTPT Member Number: NA Policy Number: NA Group Number: NA Health Plan Information #: 2 Payer: MEDEX Member Number: NA Policy Number: NA Group Number: NA
--- OUTSIDE RECORDS SUMMARY | 2024-08-15 16:43 | XMS_ITS | Continuity of Care Document ---
Author Organization [facility] Address [address] [place] [address]- Care Team Providers Care Physical Education Professor Name Role Phone Rc CORDERO, Mick Clay Primary Care Physician [id number] Date(s[facility] 06/17/24 - 07/17/24 [facility] [address] [place] [address]- Encounter Type: Triage Allergies, Adverse Reactions, Alerts [...] 6 07/23/96 Recorde d 1Result Comment: [facility]: [id number]. Screening Checklist reviewed with patient. Negative for any contraindications. 2Result Comment: [id number] 3Location History: DR LOAIZA 4Location History: DR [...] Maintenance, 05/20/24 12:53:00 PM EDT, [facility], 157, cm, 05/01/24 11:05:00 EDT, Height Start [...] Quantity: 120.0 Unit: tablet Repeat number: 6 [facility], See Instructions, # 1 each, Refills 0, Tot. Refills 0, Maintenance, Please add in assisted services to eval and treat new large [...] Physician Member Role: Primary Care Nurse Address: [address] [place] [address]- Telecom: Name: Estrellita Putnam RN Position: [facility] RN Member Role: Primary Care Nurse Name: Marlen Kenny RN Position: [facility] RN Member Role: Primary Care Nurse Name: Toshia Muhammad RN Position: [facility] RN Supv Member Role: Primary Care Nurse Name: Suleman Jones RN Position: [facility] RN Member Role: Primary Care Nurse Name: Kathy Medina RN Position: [facility] ED RN W/OE and Tasks Member Role: Primary Care Nurse Name: Marguerite Wang RN Position: [facility] RN Member Role: Primary Care Nurse Name: Mick Tatum MD Position: [facility] Physician - Primary Care Member Role: PCP Address: [address] [place] [address]- Telecom: Name: Svitlana Clark RN Position: [facility] RN Member Role: Primary Care Nurse Name: Yoana Guevara RN Position: [facility] RN Member Role: Primary Care Nurse Name: Pierre Groves RN Position: [facility] RN Member Role: Primary Care Nurse Name: Carmen Murphy NP Position: [facility] PCO Associate Professional Member Role: Primary Care Nurse Address: [address] [place] [address] [place] [address]- Telecom: Name: Rylie Ordonez RN Position: [facility] RN Member Role: Primary Care Nurse Name: Marisa Negrete RN Position: [facility] AMB Nurse Member Role: Primary Care Nurse Name: Aditi Brown RN Position: [facility] Onco RN Member Role: Primary Care Nurse Name: Chana Cazares RN Position: [facility] RN Member Role: Primary Care Nurse Name: Toshia Urbina RN Position: [facility] RN Member Role: Primary Care Nurse Name: Isabel Gray Position: [facility] E Learning Developer Member Role: Mortgage Loan Processing Clerk Name: Aniyah Sloan RN Position: [facility] SN RN Member Role: Primary Care Nurse Name: Rosemary Ramon RN Position: [facility] OB RN Member Role: Primary Care Nurse Name: Sneha Newton RN Position: [facility] Hospital Repairer Evaporator Member Role: Primary Care Nurse Care Team Related Persons Name: CLAUDIA URBINA Name: RALPH SÁNCHEZ Name: DONY CARCAMO Insurance Providers Guarantor name: FABIENNE [facility] Health Plan Information #: 1 Payer: MEDICARE PART B OUTPT Member Number: NA Policy Number: NA Group Number: NA Health Plan Information #: 2 Payer: MEDEX Member Number: NA Policy Number: NA Group Number: NA
[2024-08-15 16:46] LABS: Appearance Urine Clear; Color Urine Yellow; Glucose Urine UA >=1000 mg/dL (Negative); Leukocyte Esterase Urine Trace (Negative); Nitrite Urine Negative (Negative); Specific Gravity - Urine 1.015 (1.005-1.025); UMIC TRIGGER UACC YES; Urine Blood Trace (Negative); Urine Ketones Negative (Negative); Urine Protein Negative (Neg-Trace)
[2024-08-15 16:57] LABS: Influenza A PCR NEGATIVE (Negative); Influenza B PCR NEGATIVE (Negative); Resp Syncy Virus RNA Qual PCR NEGATIVE (Negative); SARS COV2 PCR INHOUSE NEGATIVE (Negative)
[2024-08-15 17:08] LABS: Bacteria Urine None Seen (None Seen); Hyaline Casts Urine 0-2 /LPF (0-2); RBC Urine 0-2 /HPF (0-2); Squamous Epithelial Cell Urine 0-2 /HPF (0-2); WBC Urine 0-5 /HPF (0-5)
[2024-08-15 17:24] LABS: D Dimer High Sensitivity 154 NG/ML
[2024-08-15 19:40] VITALS: BP 115/45; PULSE 69; RESP 20; TEMP 36.6; O2SAT 96
[2024-08-15 19:40] LABS: Troponin-I High Sensitivity 6.2 ng/L (<3.5-17.0)
[2024-08-15 20:04] VITALS: BP 115/45; PULSE 69; RESP 20; TEMP 36.6; O2SAT 96
== END 2024-08-15 20:05 | disposition home or self-care (01) ==
PROVIDERS: Physician Assistant Medical; Emergency Provider Emergency Medicine; PCP Family Medicine
DX: I20.9 Angina pectoris, unspecified (principal); R07.89 Other chest pain; I10 Essential (primary) hypertension; Z03.818 Encounter for observation for suspected exposure to other biological agents ruled out; Z86.718 Personal history of other venous thrombosis and embolism; Z79.01 Long term (current) use of anticoagulants; Z79.899 Other long term (current) drug therapy
CPT/HCPCS: 0241U; 36415; 71046; 80053; 81001; 81003; 83690; 83735; 83880; 84484; 85025; 85379; 85610; 93005; 99283; 99285

== ENCOUNTER → 2024-08-15 15:28 | Outpatient (BNV) | payer MEDICARE, SELFPAY | PROVIDERS: Emergency Provider Emergency Medicine; PCP Family Medicine; Visit Provider Radiology Diagnostic Radiology | DX: R07.9 Chest pain, unspecified (principal); I70.0 Atherosclerosis of aorta | CPT/HCPCS: 71046 ==

== ENCOUNTER → 2024-08-15 15:28 | Outpatient (BNV) | payer MEDICARE, SELFPAY | PROVIDERS: Emergency Provider Emergency Medicine; PCP Family Medicine; Visit Provider Internal Medicine Cardiovascular Disease | DX: R94.31 Abnormal electrocardiogram [ECG] [EKG] (principal) | CPT/HCPCS: 93010 ==

== ENCOUNTER 2024-11-13 10:01 | Outpatient (AMB) | payer MEDICARE, SELFPAY ==
--- NOTE | 2024-11-13 10:11 | MHC.OFFWIV ---
Intake Vital Signs 11/13/24 10:17 BP 130/70 Blood Pressure Location Rt brachial Position Sitting Pulse 80 Pulse Source Pulse Oximeter Pulse Oximetry (%) 94 Oxygen Delivery Method Room Air Intake Visit Reasons: EP Bilateral lower leg edema, pain, toe black Intake Note: Patient here for bilat leg swelling that has been present for a couple of weeks. Patient Tobacco Use Status: Never used Tobacco Allergies dogs, cats etc.. Allergy (Unknown, Uncoded 11/13/24 10:13) Unknown barium Allergy (Uncoded 11/13/24 10:13) Hives Do you need a note to return to daycare/school/sports/work: No HPI HPI Comments History of Present Illness Details History of Present Illness - The patient is an 84-year-old female presenting with bilateral leg and feet swelling, skin blistering. The swelling has been affecting her feet for up to three weeks and is associated with shiny and blistering, particularly on the tops of her feet. purple discoloration of the toes have been noted. She currently takes furosemide but without dosage changes. There is no fluid restriction in place. Her blood pressure averages around 130/70 mmHg as per records. Attempts to see patient in office or make changes to her diuretics were deferred by cardiology and her PCP and they recommended going to an urgent care. Patient denies shortness of breath or chest pain; has been taking her prescribed 20mg furosemide daily. was on 40mg daily but this was reduced by her Assistant Media Planner. Patient does not have a BP cuff at home. Physical Exam General: Cooperative, healthy appearing, comfortable, no acute distress and well developed Orientation: Patient oriented x3 Limitations: in wheelchair Head: Normal to inspection Ears: Hearing grossly normal bilaterally Nose: Normal External nose present Face and sinus: Normal facial exam Eyes: Appearance normal, both eyes and all related structures Neck: Normal visual inspection and Yes full ROM Respiratory: Normal respiratory effort and able to speak in complete sentences. Clear to auscultation bilaterally Cardiovascular: Regular rate and rhythm. Normal S1 and S2 Skin: fluid filled blisters noted on the top of the feet, shiny appearance, and an open scab present on right midshin, no warmth or drainage noted. Neuro: Patient oriented x3 Extremities: 1+ pitting edema in bilat LE, extending to feet. feet are purple but not mottled, pulses difficult to feel due to edema however toes are NVI, pt has full feeling and can move bilateral feet and wiggle all toes. [facility] Medical History History of CHF (congestive heart failure) Constipation Acute proctitis Hemorrhoids Spinal abscess Restless leg syndrome HTN (hypertension) Pre-diabetes DVT (deep venous thrombosis) Colitis Ulcerative colitis Surgical History Hx of shoulder surgery Social History Household Members: Other Household Members Other:: son Housing: House Do you presently have visiting nurse or other home services: Yes Unable to assess alcohol history related to: Unable to respond Alcohol intake: never Patient Tobacco Use Status: Never used Tobacco Advance Directives Date on File: 11/16/22 service: No Current occupational status: retired Review of Systems Const All systems reviewed & are unremarkable except as noted in HPI and below Physical Exam Vital Signs: Last Vital Signs Pulse 80 11/13/24 10:17 BP 130/70 11/13/24 10:17 Pulse Ox 94 11/13/24 10:17 Oxygen Delivery Method Room Air 11/13/24 10:17 Assessment & Plan Assessment & Plan (1) Bilateral edema of lower extremity: Code(s): R60.0 - Localized edema Plan: VSS, pt well appearing and PE notable for 1+ pitting edema, legs NVI, lungs clear and no sob. Sent BP cuff to pharmacy so pt can monitor BP while increasing dose of furosemide to 40mg daily as long as BP remains > 105 systolic/>60 diastolic. Should check prior to administration of furosemide and 2 hours after. She should also check her BP if she feels dizzy or lightheaded. Measures to reduce fluid retention include limb elevation and wound management with Aquaphor or similar, no signs of cellulitis on the right díaz today. Signs of infection or worsened condition, shortness of breath, neurovascular changes in feet (educated on checking NVI intact) should prompt immediate evaluation at an ED. Coordination with primary care or Assistant Media Planner for further management is needed, especially regarding medication supply as she will run out of furosemide early and perhaps needs a permanent change in her dose and blood pressure monitoring. Patient was informed and verbally consented to the use of an ambient scribe for clinic note documentation during this visit. Coding Level of Care Code New Pt Level 4 (66385) Diagnoses Bilateral edema of lower extremity R60.0
[2024-11-13 10:17] VITALS: BP 130/70; PULSE 80; O2SAT 94
--- OUTSIDE RECORDS SUMMARY | 2024-11-13 11:26 | XMS_ITS | Data Portability ---
Author Organization [place] - [facility] Address [address] [place] [id number] Care Team Providers Care Chief Meteorologist Name Role Phone AJAY PINK Primary Care Provider Assessment Encounter Date Assessment Date Assessment LastModified by Organization Details LastModified Time 07/07/2019 07/07/2019 Overview/History : 79 yo female new to and this provider who presents for evaluation of right leg pain. Patient reports that she has diagnosed right sided sciatica; her pain is chronic and lasts for over a year now. Patient states pain is 7/10; worse with walking; gets better with rest. Pain radiates from the hip down the right leg. Patient takes tramadol prescribed by her PCP for pain with some relief; did not take any tylenol, did not try ice or heat. Patient denied any trauma; also denied any lower back pain, numbness, tingling or weakness of the effected extremity Comorbidities: restless leg syndrome; sciatica; peripheral neuropathy; DVT Exam: elderly female, well appearing, no acute distress, non-toxic appearance; alert and oriented X3; resting in bed comfortably at the time of evaluation, able to ambulate independently with a walker Heart sounds are regular rate and rhythm; no audible murmurs, rubs, or gallops No signs of respiratory distress. Lungs are clear to auscultation in all fileds Neck and back are without deformity, external skin changes, or signs of trauma. No tenderness noted on palpation of the spinous processes. Spinous processes are midline. Cervical, thoracic, and lumbar paraspinal muscles are not tender and are without spasm. Patient reports discomfort is noted with flexion, extension, and bjcg-fu-njto rotation of the lumbar spine. Straight leg raise test is negative bilaterally. Sensation to the upper and lower extremities is normal bilaterally. No clonus is noted. Child Support Case Officer strength is normal bilaterally. Dorsi/plantar flexion is normal bilaterally. Motor function is normal with muscle strength 5/5 bilaterally to upper and lower extremities. Sensation is intact bilaterally. Reflexes 2+ bilaterally. Cranial nerves 2-12 are intact. No focal neuro deficits, normal [id number], no pronator drift. DDx considered, but not limited to: Sciatica syndrome - existing dx; most likely cause of symptoms Muscle strain - unlikely; symptoms are chronic; no recent injuries herniated disk - needs further evaluation with advanced imaging vertebral compression - needs further evaluation Cauda equina syndrome - unlikely; no recent trauma, pain is chronic; no numbness Work up/Results: none Plan/Discussion: - discussed with the patient her condition and treatment options - advised to follow up with PCP to discuss possible MRI evaluation and referral to PT - start Prednisone 40mg X5d - start diclofenac gel - advised rest, heat/ice compresses; gentle stretches, tylenol PRN for pain - follow up with PCP as needed within 7-10 days or sooner if symptoms worsen or do not improve - advised when to seek immediate medical attention/911/ED - patient expressed understanding and agreed to tx plan In order to obtain further information and compare any laboratory results/values, I have accessed old patient records. This information was pertinent in my medical decision making today. Time On Scene with Patient: 00:41:04 jean-paul Not available 07/07/2019 19:09:14 01/18/2022 01/18/2022 Overview/History : 81 year old female known to but new to provider with a history of ulcerative colitis; CAD/stent placement on plavix, HTN, HLD, DVT on eliquis; CKD stage III being seen today for diarrhea x 3 days. She states that she ran out of her budesonide about a week ago due to insurance coverage; she usually takes it every day for her ulcerative colitis. Diarrhea: loosely formed, 3 times a day. Did have some blood on her pad after having the diarrhea. Abdominal cramping with the diarrhea, no pain at this time. No vomiting. Decreased appetite. Is drinking but not that much. Has had cough last 1.5 years since hospitalization with some shortness of breath. Exam: Normal PE with hyperactive bowel sounds, abd soft, nontender. No stool with visit Vital Signs: 108/50; 90- 16; 99.8; 91% DDx considered, but not limited to: Work up/Results: i stat: Na 136; K 3.8; Ch 96; CO2 96; BS 104; H/H 15.3/45; AG 19 BUN/Cr 27/2.1 last BUN/Cr on 11/23/21 was 19/1.3 Infused 1 liter NS left hand Plan/Discussion: Called Dr Genet Bedolla ( personnel consultant) and in agreement to escalate pt to ED due to UC, ALTAGRACIA Report written out for medics, called report to AJ at [facility] Proper Personal Protective Equipment (PPE), including gloves, eye protection and masks were donned and doffed appropriately and all equipment cleaned using approved technique with germicidal disposable wipes prior to and after care of this patient according to [facility]'s infection prevention protocols. devon Not available 01/18/2022 22:17:19 Plan of Treatment Reminders Order Date Submit Date Provider Last Modified By Organization Details Last Modified Time Details Appointments None recorded. Lab BMP + ionized calcium, serum or plasma 2021 FÉLIX [facility] [address] [place], [address], 3 05:00:56 CBC w/ auto diff [facility] nbyron [facility] (Centralized Electronic Ordering - All Locations), Patient Can Go To The Location Of Their Choice, [address] 14:31:52 Referral None recorded. Procedures None recorded. Surgeries None recorded. Imaging None recorded. Medication Orders sodium chloride 0.9 % intraveno us solution 2021 022 [id number], [address] [place], [address], 21:44:37 diclofena c 1 % topical gel 2018 019 INTERFACE [id number], [address] [place], [address], 17:22:03 prednison e 20 mg tablet 2018 019 devon [id number], [address] [facility], [place], [address], 2 20:31:12 Patient TargetsNo targets recorded. Patient Instructions Encounter Date Encounter Id Patient Instructions Last Modified By Organization Details Last Modified Time 07/07/2019 [id number] sciatica: care instructions jean-paul Not available 07/07/2019 17:21:56 YOU WERE SEEN FO R SCIATICA PAIN You may take acetaminophen (Tylenol) 1000mg every 6 hrs for pain or fever not to exceed 3000mg in 24 hrs. PRESCRIPTION FOR PREDNISONE AND DICLOFENAC GEL WAS SEND TO THE PHARMACY PLEASE, TAKE PRESCRIBED WE RECOMMEND YOU DISCUSS POSSIBLE MRI EVALUATION AND REFERRAL TO PHYSICAL THERAPY Your Care Instructions Sciatica (say oyi-NB-ri-kuh ) is an irritation of one of the sciatic nerves, which come from the spinal cord in the lower back. The sciatic nerves and their branches extend down through the buttock to the foot. Sciatica can develop when an injured disc in the back presses against a spinal nerve root. Its main symptom is pain, numbness, or weakness that is often worse in the leg or foot than in the back. Sciatica often will improve and go away with time. Early treatment usually includes medicines and exercises to relieve pain. Follow-up care is a [place] part of your treatment and safety. Be sure to make and go to all appointments, and call your doctor if you are having problems. It's also a good idea to know your test results and keep a list of the medicines you take. How can you care for yourself at home? Take pain medicines exactly as directed. If the doctor gave you a prescription medicine for pain, take it as prescribed. If you are not taking a prescription pain medicine, ask your doctor if you can take an nzwa-ffo-ayaueor medicine. Use heat or ice to relieve pain. To apply heat, put a warm water bottle, heating pad set on low, or warm cloth on your back. Do not go to sleep with a heating pad on your skin. To use ice, put ice or a cold pack on the area for 10 to 20 minutes at a time. Put a thin cloth between the ice and your skin. Avoid sitting if possible, unless it feels better than standing. Alternate lying down with short walks. Increase your walking distance as you are able to without making your symptoms worse. Do not do anything that makes your symptoms worse. When should you call for help? Call 911 anytime you think you may need emergency care. For example, call if: You are unable to move a leg at all. Call your doctor now or seek immediate medical care if: You have new or worse symptoms in your legs or buttocks. Symptoms may include: Numbness or tingling. Weakness. Pain. You lose bladder or bowel control. Watch closely for changes in your health, and be sure to contact your doctor if: You are not getting better as expected. [facility]. We cannot always find the exact cause of your symptoms during your initial visit. Please follow up with your primary care provider or specialist as needed to be rechecked or seek medical attention if your symptoms do not go away or get worse. If you develop any new or worsening symptoms and need after hours care, please go to nearest ER and/or call 911. If you have additional concerns or develop a change in your condition between 8am-10pm, please call [facility] at [phone] to help navigate your care. [email or web address] Not available 07/07/2019 17:21:54 Reason for Referral None Reported. Results Created Date Observation Date Name Description Value Unit Range Abnormal Flag Note LastModifiedBy Organization Detail LastModifiedTime 01/19/20 22 01/18/2022 BMP + IONIZ ED CALCI UM, SERUM OR PLASM A glu 104 mg/dL 70-105 Not Available [facility] [address] [place], [address], 01/18/2022 21:18:35 01/19/20 22 01/18/2022 BMP + IONIZ ED CALCI UM, SERUM OR PLASM A BUN 27 mg/dL 8-26 Not Available [facility] [address] [place], [address], 01/18/2022 21:18:35 01/19/20 22 01/18/2022 BMP + IONIZ ED CALCI UM, SERUM OR PLASM A crea 2.1 mg/dL 0.6-1. 3 Not Available [facility] [address], [address], 01/18/2022 21:18:35 01/19/20 22 01/18/2022 BMP + IONIZ ED CALCI UM, SERUM OR PLASM A Na 136 mmol/ L 138-14 6 Not Available [address], [address], 01/18/2022 21:18:35 01/19/20 22 01/18/2022 BMP + IONIZ ED CALCI UM, SERUM OR PLASM A K 3.8 mmol/ L 3.5-4. 9 Not Available [address], [address], 01/18/2022 21:18:35 01/19/20 22 01/18/2022 BMP + IONIZ ED CALCI UM, SERUM OR PLASM A cL 96 mmol/ L 98-109 Not Available [address], [address], 01/18/2022 21:18:35 01/19/20 22 01/18/2022 BMP + IONIZ ED CALCI UM, SERUM OR PLASM A TCO2 26 mmol/ L 24-29 Not Available [address], [address], 01/18/2022 21:18:35 01/19/20 22 01/18/2022 BMP + IONIZ ED CALCI UM, SERUM OR PLASM A angap 19 mmol/ L 10-20 Not Available [address], [address], 01/18/2022 21:18:35 01/19/20 22 01/18/2022 BMP + IONIZ ED CALCI UM, SERUM OR PLASM A ica 1.06 mmol/ L 1.12-1 .32 Not Available [address], [address], 01/18/2022 21:18:35 01/19/20 22 01/18/2022 BMP + IONIZ ED CALCI UM, SERUM OR PLASM A HCT 45 %pcv 38-51 Not Available [facility] [address] [place], [address], 01/18/2022 21:18:35 01/19/20 22 01/18/2022 BMP + IONIZ ED CALCI UM, SERUM OR PLASM A Hb 15.3 g/dL 12-17 Not Available [facility] [address] [place], [address], 01/18/2022 21:18:35 03/14/20 22 03/14/2022 COMPL ETE CBC WITH DIFF results Patie nt refus ed, reord er test if neede d Not Available [facility] (Centralized Electronic Ordering - All Locations) Patient Can Go To The Location Of Their Choice, [address] 03/14/2022 11:24:15 Result Notes None recorded. Procedures Surgical History Date Name Laterality Status Provider Name and Address Organization Details Recorded Time 022 IV Start Procedure - DH completed Suma Forrest NP [address] [place], [address], [place] [facility] 01/18/2022 21:31:34 cholecystectomy completed Suma Forrest NP [address], [place], [address], [place] [facility] 01/18/2022 20:37:07 Imaging Results None recorded. Procedure Notes None recorded. Medical Equipment None Reported. Allergies Allergen ID Allergen Name Allergen Category Reaction Reaction Severity Criticality Documentation Date Start Date Code Code System Note Provider Name and Address Organization Details Recorded Time [id number] Iodinated contrast media (substanc e) medicatio n Not available Not available Not available 01/18/2022 27454 2003 SNOMED Suma Forrest NP [address], [place], [address], [place] [facility] 20:27:42 [id number] amoxicill in medicatio n Not available Not available Not available 01/18/2022 723 RxNorm Suma Forrest , BOARD HAMMER OPERATOR [address] [place], [address], [place] [facility] 20:27:51 Medications Name Sig Start Date Stop Date Status Note LastModified by Organization Details LastModified Time latanoprost 0.005 % eye drops INSTILL 1 DROP IN BOTH EYES DAILY BEFORE DINNER active Not Available Not Available No t Available atorvastati n 40 mg tablet TAKE 1 TABLET BY MOUTH EVERY DAY active Not Available Not Available No t Available torsemide 20 mg tablet TAKE 2 TABLETS BY MOUTH EVERY DAY active Not Available Not Available No t Available famotidine 40 mg tablet TAKE 1 TABLET BY MOUTH EVERYDAY AT BEDTIME active Not Available Not Available No t Available prednisone 20 mg tablet Take 2 tablets every day by oral route for 5 days. 01/18 completed Not Available Not Available Not Available isosorbide mononitrate ER 30 mg tablet,exte nded release 24 hr TAKE 1 TABLET BY MOUTH EVERY DAY active Not Available Not Available No t Available gabapentin 400 mg capsule TAKE 2 CAPSULES BY MOUTH 3 TIMES A DAY active Not Available Not Available No t Available thiamine HCl (vitamin B1) 100 mg tablet TAKE 1 TABLET BY MOUTH EVERY DAY active Not Available Not Available No t Available metronidazo le 500 mg tablet TAKE 1 TABLET BY MOUTH EVERY 12 HOURS FOR PAIN active Not Available Not Available No t Available azathioprin e 50 mg tablet TAKE 2 TABLETS BY MOUTH EVERY DAY active Not Available Not Available No t Available clopidogrel 75 mg tablet TAKE 1 TABLET BY MOUTH EVERY DAY active Not Available Not Available No t Available amlodipine 5 mg tablet TAKE 1 TABLET BY MOUTH EVERY DAY active Not Available Not Available No t Available sulfamethox azole 800 mg-trimetho prim 160 mg tablet 01/18 completed Not Available Not Available Not Available aspirin 81 mg tablet,alida yed release TAKE 1 TABLET BY MOUTH EVERY DAY active Not Available Not Available No t Available tramadol 50 mg tablet 01/18 completed Not Available Not Available Not Available spironolact one 25 mg tablet TAKE 1 TABLET BY MOUTH TWICE A DAY active Not Available Not Available No t Available hydrocortis one 2.5 % topical cream with perineal applicator APPLY 1 APPLICATI ON DAILY NEEDED FOR HEMORROID S active Not Available Not Available No t Available hydromorpho ne 2 mg tablet TAKE 1 TABLET BY MOUTH EVERY 12 HOURS NEEDED FOR SEVERE PAIN active Not Available Not Available No t Available magnesium oxide 400 mg (241.3 mg magnesium) tablet TAKE 1 TABLET BY MOUTH TWICE A DAY FOR 5 DAYS active Not Available Not Available No t Available benzonatate 100 mg capsule Take 1 capsule 3 times a day by oral route. 01/18 completed Not Available Not Available Not Available doxycycline monohydrate 100 mg capsule TAKE 1 CAPSULE BY MOUTH EVERY 12 HOURS FOR 5 DAYS active Not Available Not Available No t Available ropinirole 0.5 mg tablet TAKE 1 TABLET BY MOUTH 4 TIMES A DAY active Not Available Not Available No t Available nitroglycer in 0.4 mg sublingual tablet TAKE 1 TAB SUBLINGUA LLY EVERY 5 MIN FOR 3 DOSES NEEDED FOR CHEST PAIN. SEEK MEDICAL ATTENTION . active Not Available Not Available No t Available gabapentin 300 mg capsule active Not Available Not Available Not Available sertraline 25 mg tablet TAKE 1 TABLET BY MOUTH EVERY DAY active Not Available Not Available No t Available dorzolamide 22.3 mg-timolol 6.8 mg/mL eye drops USE 1 DROP IN BOTH EYES TWICE DAILY active Not Available Not Available No t Available furosemide 20 mg tablet TAKE 1 TABLET BY MOUTH EVERY DAY FOR 5 DAYS. TOTAL 40MG FOR 5 DAYS active Not Available Not Available No t Available sodium chloride 0.9 % intravenous solution 1 L administe red on scene. Time administe red:2109 active Not Available Not Available Not Avai lable metoprolol succinate ER 25 mg tablet,exte nded release 24 hr TAKE 1 TABLET BY MOUTH EVERY DAY active Not Available Not Available No t Available ergocalcife rol (vitamin D2) 1,250 mcg (50,000 unit) capsule TAKE 1 CAPSULE BY MOUTH EVERY SUNDAY active Not Available Not Available No t Available budesonide DR - ER 3 mg capsule,del ayed,extend ed release TAKE 3 CAPSULES BY MOUTH EVERY DAY active Not Available Not Available No t Available levofloxaci n 750 mg tablet TAKE 1 TABLET BY MOUTH EVERY DAY FOR 5 DAYS active Not Available Not Available No t Available Pepcid active Not Available Not Availa ble Not Available Lipitor active Not Available Not Avail able Not Available furosemide active Not Available Not Av ailable Not Available Plavix active Not Available Not Availa ble Not Available azathioprin e active Not Available Not Available Not Available isosorbide active Not Available Not Av ailable Not Available Lialda 1.2 gram tablet,alida yed release active Not Available Not Available Not Available diclofenac 1 % topical gel APPLY 2 GRAMS TO THE AFFECTED AREA(S) BY TOPICAL ROUTE 4 TIMES PER DAY 2018 active Not Available Not Available Not Avai lable Eliquis 5 mg tablet TAKE 1 TABLET BY MOUTH TWICE A DAY active Not Available Not Available No t Available Jardiance 10 mg tablet TAKE 1 TABLET BY MOUTH EVERY MORNING active Not Available Not Available No t Available Jardiance active Not Available Not Rose ilable Not Available Vitals Date Recorded Oxygen saturation Oxygen saturation in Arterial blood by Pulse oximetry Respiratory rate Body temperature Heart rate Systolic blood pressure Diastolic blood pressure Provider Name and Address Organization Details Last Updated DateTime 9 98 % 98 % 20 /min 98.3 [degF] 72 /min 128 mm[Hg] 62 mm[Hg] Not Available [facility] 9 16:55:36 Date Recorded Heart rate Body temperature Oxygen saturation Oxygen saturation in Arterial blood by Pulse oximetry Respiratory rate Systolic blood pressure Diastolic blood pressure Provider Name and Address Organization Details Last Updated DateTime 2 90 /min 99.2 [degF] 91 % 91 % 16 /min 118 mm[Hg] 50 mm[Hg] Not Available [facility] 21:09:28 Social History Question Answer Notes LastModified by Organizat ion Details LastModified Time Tobacco Smoking Status Never Smoker [facility] [address] [place] [address], [address], [place] [facility] 07/07/2019 17:35:17 Do You Have An Advance Directive? No Information not available 07/07/2019 What Is Your Code Status? Full Code Information not available 07/07/2019 How Many Days In The Past Year Have You Had A Heavy Drinking Consumption (4+ Female, 5+ Male)? 0 Information not available 07/07/2019 Marital Status jean-paul Informatio n not available 07/07/2019 What Was The Date Of Your Most Recent Tobacco Screening? 07/07/2019 Information not available 07/08/2019 Sex: Unknown Functional Status None recorded. Mental Status None recorded. Family History Nothing Reported Notes:patient can't recall Medical History Condition Response Diabetes N Coronary Artery Disease Y Cancer N Stroke N COPD N Depression N Asthma N High Cholesterol Y Pulmonary Embolism N Hypertension Y Kidney Disease N Gynecological HistoryNo gynecological history recorded. Obstetrics History GPAL:G 0 P 0 0 0 0 Past Encounters Encounter ID Performer Location Encounter Start Date Encounter Closed Date Diagnosis/Indication Diagnosis SNOMED-CT Code Diagnosis ICD10 Code Diagnosis Note [id number] [facility] [address] [place] [address] 07/07/2019 16:47:46 07/09/2019 12:01:53 Right side sciatica [id number] 06893 M54.31 [id number] [facility] [address] [place] [address] 01/18/2022 20:25:00 01/20/2022 12:39:11 Ulcerative colitis [id number] K51.80 Acute-on-c hronic renal failure 185278075 N17.8 Health Concerns Section Related Observation LastModified by Organization Detai ls LastModified Time None Recorded Concern Status LastModified by Organization Details LastModified Time None Recorded Advance Directives Directive N: Payers Encounter Date Sequence Insurance Name Policy Number Policy Stinson Covered Member ID Stinson Member ID Guarantor Name 07/07/2019 2 [facility] Maris Nash [id number] Maris ByrdCharity 07/07/2019 1 [facility] (MEDICARE REPLACEMENT HMO) Maris Charity [id number] Maris Nash 01/18/2022 2 [facility]: ([place]MN[place]) [id number] Maris Charity [id number] Maris Charity 01/18/2022 1 [place] [employer] Maris Nash [id number] Maris Charity Notes Date Note Type Note Provider Name and Address Organization Details Recorded Time 07/07/2019 text/html Mrs. Nash is an 79 yo female new to and this provider who presents for evaluation of right leg pain. Patient reports that she has diagnosed right sided sciatica; her pain is chronic and lasts for over a year now. Patient states pain is 7/10; worse with walking; gets better with rest. Pain radiates from the hip down the right leg. Patient takes tramadol prescribed by her PCP for pain with some relief; did not take any tylenol, did not try ice or heat.Patient denied any trauma; also denied any lower back pain, numbness, tingling or weakness of the effected extremity [facility] [address], [place], [address], [place] [facility] 07/07/2019 19:09:18 01/18/2022 text/html 81 year old fema le known to but new to provider with a history of ulcerative colitis; CAD/stent placement on plavix, HTN, HLD, DVT on eliquis being seen today for diarrhea x 3 days. She states that she ran out of her budesonide about a week ago due to insurance coverage; she usually takes it every day for her ulcerative colitis. Diarrhea: loosely formed, 3 times a day. Did have some blood on her pad after having the diarrhea. Abdominal cramping with the diarrhea, no pain at this time. No vomiting. Decreased appetite. Is drinking but not that much. Has had cough last 1.5 years since hospitalization with some shortness of breath. Suma Forrest NP [address], [place], [address], [place] [facility] 01/18/2022 22:17:29 OBGyn Episode No OBEpisode recorded.
--- OUTSIDE RECORDS SUMMARY | 2024-11-13 11:26 | XMS_ITS | Data Portability ---
Author Organization [facility] Pain Managem ent, PAIN OFFICE Address [address] [facility],[address] [address] Care Team Providers Care Rayon Winder Name Role Phone KOBI REED Primary Care Provider [phone] NABOR KIM Referring Provider [phone] Assessment Encounter Date Assessment Date Assessment LastModified [...] booked for the same. 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 [...] By Organization Details Last Modified Time 01/15/2020 [id number] She was advised against bed rest lasting longer than four days and to continue activities as tolerated. [email or web address] Not available 01/16/2020 10:57:52 02/24/2020 [id number] She was advised against bed rest lasting longer than four days and to continue activities as tolerated. [email or web address] Not available 02/24/2020 11:22:12 Reason for Referral None Reported. Problems Name Problem SNOMED Code Status Onset Date Resolution Date Notes Provider Name and Address Organization Details Recorded Time Lumbosacral radiculopathy 6715808 Rich palma MD [address] [facility] , [address], [place], [address], [place] [facility] 0 10:22:34 Spinal stenosis of lumbar region 12707997 Rich palma MD [address] , [address], [facility] [place], [address], [place] [facility] 0 09:28:05 Degeneration of lumbar intervertebral disc 24543175 Rich palma MD [address] [employer] [address] , [address], [facility] [place], [address], [place] [facility] 0 09:28:15 Lumbosacral spondylosis without myelopathy 20455545 Rich palma MD [address] [facility] , [address], [place], [address], [place] [facility] 0 09:28:29 Problem Notes None recorded. Procedures Surgical History Date Name Laterality Status Provider Name and Address Organization Details Recorded Time 02/24/20 20 Lumbar Epidural steroid injection under fluoroscopic guidance completed Frank Pathak MD [address] [facility] , [address], [place], [address], [place] [facility] 02/24/2020 11:21:33 Tonsillectomy completed Frank Pathak MD [address] [facility] , [address], [place], [address], [place] [facility] 01/15/2020 10:25:16 Appendectomy completed Frank Pathak MD [address] [facility] , [address], [place], [address], [place] [facility] 01/15/2020 10:25:26 Cholecystectomy completed Frank Pathak MD [address] [facility] , [address], [place], [address], [place] [facility] 01/15/2020 10:26:10 Eye Surgery completed Frank Pathak MD [address] [facility] , [address], [place], [address], [place] [facility] 01/15/2020 10:26:27 complete repair of rotator cuff completed Frank Pathak MD [address] [facility] , [address], [place], [address], [place] [facility] 01/15/2020 10:26:46 Imaging Results None recorded. Procedure Notes None recorded. Medical Equipment None Reported. Allergies Allergen ID Allergen Name Allergen Category Reaction Reaction Severity Criticality Documentation Date Start Date Code Code System Note Provider Name and Address Organization Details Recorded Time 04393 Iodinated contrast media (substanc e) medicatio n hives Not available Not available 01/15/2020 90259 2003 SNOMED Frank palma MD [address] , [address], [place], [address], [place] [facility] [...] saturation in Arterial blood by Pulse oximetry Pain severity - 0-10 verbal numeric rating [Score] - Reported Systolic blood pressure Diastolic blood pressure Provider Name and Address Organization Details Last Updated DateTime 0 157.48 cm 36.6 kg/m2 81036.4 7 g 73 /min 93 % 93 % 6 170 mm[Hg] 67 mm[Hg] Frank palma MD [address] [employer] , [address], [place], [address], [place] [facility] 0 10:16:49 Date Recorded Body height Heart rate Oxygen saturation Oxygen saturation in Arterial blood by Pulse oximetry Systolic blood pressure Diastolic blood pressure Provider Name and Address Organization Details Last Updated DateTime 0 157.48 cm 86 /min 96 % 96 % 184 mm[Hg] 85 mm[Hg] Loretta Bennett [place] [facility] 0 10:58:24 Social History Question Answer Notes LastModified by Organizat ion Details LastModified Time Tobacco Smoking Status Never Smoker Frank Pathak MD [address] , [address], [place], [address], [place] [facility] 01/15/2020 10:24:20 [...] SNOMED-CT Code Diagnosis ICD10 Code Diagnosis Note [id number] Frank Pathak MD PAIN OFFICE [address] [place] [address] 01/15/2020 09:43:34 01/16/2020 10:58:45 Lumbosacral radiculopathy 7738656 M54.17 Spinal lana nosis of lumbar region 19267073 M48.061 Degenerati on of lumbar intervertebral disc 28375994 M51.36 Lumbosacra l spondylosis without myelopathy 62580633 M47.817 [id number] Frank Pathak MD PAIN OFFICE [address] [place] [address] 02/24/2020 10:56:20 02/24/2020 11:25:15 Lumbosacral radiculopathy 8672202 M54.17 Spinal lana nosis of lumbar region 09271039 M48.061 Degenerati on of lumbar intervertebral disc 72458997 M51.36 Lumbosacra l spondylosis without myelopathy 50739337 M47.817 Health Concerns Section Related Observation LastModified by Organization Detai ls LastModified Time None Recorded Concern Status LastModified by Organization Details LastModified Time None Recorded Advance Directives Directive None Recorded Payers Encounter Date Sequence Insurance Name Policy Number Policy Stinson Covered Member ID Stinson Member ID Guarantor Name 01/15/2020 1 [place] Maris Nash [id number] Marisalexsandra ByrdCharity 01/15/2020 2 [place] [id number] Marisalexsandra MoodyCharity [id number] Maris Charity 02/24/2020 1 [place] Maris Nash [id number] Maris Charity 02/24/2020 2 [place] [id number] Maris Nash [id number] Maris Nash Notes Date Note Type [...] help. Tramadol helped. Frank Pathak MD [address] [facility] , [address], [place], [address], [facility] Pain Management 01/19/2020 09:19:01 02/24/2020 text/html She is here for a trial of lumbar epidural steroid injection under fluoroscopic guidance. Frank Pathak MD [address] [facility] , [address], [place], [address], [facility] - Pain Management 02/24/2020 14:07:17 OBGyn Episode No OBEpisode recorded.
--- OUTSIDE RECORDS SUMMARY | 2024-11-13 11:26 | XMS_ITS | Data Portability ---
Author Organization [facility], [facility] Address [address] [place] [address] Assessment No assessment recorded. Plan of Treatment [...] Name and Address Organization Details Recorded Time Sports Shoulder 4&1 completed Chadwick Palencia PA-C [address], [place], [address], [facility] 08/19/2024 08:10:55 4 Sports Shoulder 4&1 cancelled Chadwick Palencia PA-C [address], [place], [address], [facility] 05/27/2024 13:07:08 4 Sports Shoulder 4&1 completed Chadwick Palencia PA-C [address], [place], [address], [facility] 11/01/2023 14:04:41 Imaging Results [...] Name and Address Organization Details Recorded Time 72749 Iodinated contrast media (substanc e) medicatio n Not available Not available Not available 09/24/20232017 99611 2004 SNOMED Aller gyNam e: 'Ivp Dye'; Aller gyRea ction : 'Shoc k/Unc onsci ousne ss'; Not Available [facility] 4 14:03:51 35388 tomato allergeni c extract food Not available Not available Not available 09/24/20232019 92769 9 RxNorm Not Available [facility] 4 14:03:51 44882 egg extract food,medi cation Not available Not available Not available 09/24/20232019 92264 15 RxNorm Not Available [facility] 4 14:03:51 93366 amoxicill in trihydrat e medicatio n Not available Not available Not available 09/24/20232019 44488 8 RxNorm Not Available [facility] 4 14:03:51 Medications Name Sig Start Date Stop Date Status Note LastModified by Organization Details LastModified Time furosemide 40 mg tablet 1 TABLET BY MOUTH DAILY,INSTR :HOLD FOR SBP LESS THAN 90 active Not Available Not Available No t Available atorvastatin 40 mg tablet TAKE 1 TABLET BY MOUTH EVERYDAY AT BEDTIME active Not Available Not Available No t Available doxycycline hyclate 100 mg capsule active Not Available Not Available N ot Available torsemide 20 mg tablet TAKE 2 TABLETS BY MOUTH EVERY DAY active Not Available Not Available No t Available clindamycin HCl 300 mg capsule TAKE 1 CAPSULE BY MOUTH THREE TIMES A DAY active Not Available Not Available Not Available fluconazole 150 mg tablet active Not [...] Not Available Not Available No t Available metronidazol e 500 mg tablet TAKE 1 TABLET BY [...] active Not Available Not Available Not Available potassium chloride ER 20 mEq tablet,exten ded release(part /cryst) active Not Available Not Available Not Available [...] Not Available Not Available N ot Available gabapentin 300 mg capsule TAKE 1 CAPSULE BY MOUTH TWICE A DAY active Not Available Not Available No t Available furosemide 20 mg tablet TAKE 1 TABLET BY MOUTH DAILY X 3 DAYS. FUTURE DOSES INSTRUCTED BY THE CLINIC. active Not Available Not Available No t Available metoprolol succinate ER 25 mg tablet,exten [...] ER 3 mg capsule,alida yed,extended release TAKE 9 MG (3 X 3 MG) ORALLY DAILY active Not Available Not Available No t Available cefuroxime axetil 500 mg tablet TAKE 1 TABLET BY MOUTH 2 TIMES A DAY FOR 3 DAYS active Not Available Not Available N ot Available albuterol sulfate HFA 90 mcg/actuatio n aerosol inhaler INHALE 2 PUFF DIRECTED EVERY FOUR TO SIX HOURS NEEDED FOR SHORTNESS OF BREATH OR WHEEZING active Not Available Not Available Not Available ondansetron 4 mg disintegrati ng tablet TAKE 1 TABLET BY MOUTH EVERY 6-8 HOURS NEEDED FOR NAUSEA AND VOMITING active Not Available Not Available No t Available clotrimazole 1 % topical cream APPLY TO AFFECTED AREA TWICE A DAY FOR 2 WEEKS active Not Available Not Available No t Available amoxicillin 500 mg-potassium clavulanate 125 mg tablet TAKE 1 TABLET BY MOUTH EVERY 8 HOURS active Not Available Not Available No t Available oxycodone 5 mg tablet TAKE 1 TABLET BY MOUTH DAILY NEEDED FOR PAIN , MODERATE active Not Available Not Available No [...] Not Available Not Available No t Available Farxiga 10 mg tablet TAKE 1 TABLET BY [...] Updated DateTime 11/01/2023 157.48 cm 38.4 kg/m2 28306.4 g See Flores [facility] 11/01/2023 13:39:23 Date Recorded Body height Body mass index (BMI) Body weight Provider Name and Address Organization Details Last Updated DateTime 08/21/2024 157.48 cm 38.4 kg/m2 57719.4 g Yessy Michelle [facility] 08/21/2024 09:53:44 Social History None recorded. Functional Status None recorded. Mental Status None recorded. Family History Nothing Reported. Medical History No medical history recorded. Gynecological HistoryNo gynecological history recorded. Obstetrics History GPAL:G 0 P 0 0 0 0 Past Encounters Encounter ID Performer Location Encounter Start Date Encounter Closed Date Diagnosis/Indication Diagnosis SNOMED-CT Code Diagnosis ICD10 Code Diagnosis Note [id number] JACQUES Vasquez [address] [place] [address] 11/01/2023 12:54:59 11/01/2023 14:34:21 Osteoarthritis of joint of left shoulder region 1204871003 80224 M19.052 [id number] JACQUES Vasquez [address] [place] [address] 08/21/2024 09:47:18 09/10/2024 07:34:18 Osteoarthritis of joint of left shoulder region 2849101527 63816 M19.012 Health Concerns Section Related Observation LastModified by Organization Detai ls LastModified Time None Recorded Concern Status LastModified by Organization Details LastModified Time None Recorded Advance Directives Directive None Recorded Payers Encounter Date Sequence Insurance Name Policy Number Policy Stinson Covered Member ID Stinson Member ID Guarantor Name 11/01/2023 1 [place] Maris Charity [id number] Maris Charity 11/01/2023 2 [place] [id number] Maris R Charity [id number] Maris Charity 08/21/2024 1 [place] Maris Charity [id number] Maris Charity 08/21/2024 2 [place] [id number] Maris R Charity [id number] Maris Charity Notes Date Note Type Note [...] Marcaine. Follow up p.r.n. Chadwick Palencia PA-C [address], [place], [address], [facility] 11/01/2023 14:05:15 08/21/2024 text/html I am seeing the patient today under the supervision of {{Rosey* Brothers Shanel Naqvi}} who was available but who did not see the patient. HPI: Patient returns for follow-up of left shoulder pain. Patient has noted degenerative rotator cuff disease of the left shoulder. Patient has been [...] shoulder. Range of motion of the shoulder: Decreased in all planes with pain and crepitus. 4-5 strength of the right shoulder. Peripheral, vascular, lymphatic examination, skin, neurological, coordination, reflexes, sensation are within normal limits. Impression: Degenerative rotator cuff disease of the left shoulder. Plan: Reviewed diagnosis with the patient today in the office. Discussed role of conservative management. Reviewed home exercise program. Activity modification discussed. P.r.n. Tylenol or NSAIDs can be used. Discussed the role of injection therapies. Injected the subacromial space of the left shoulder. Follow up p.rjarrell Palencia PA-C [address], [place], [address], [facility] 08/21/2024 10:00:16 OBGyn Episode No OBEpisode recorded.
== END 2024-11-13 10:43 | disposition home or self-care (01) ==
PROVIDERS: PCP Family Medicine; Visit Provider Physician Assistant
DX: R60.0 Localized edema (principal)

== ENCOUNTER → 2024-11-13 10:01 | Outpatient (BNVA) | payer MEDICARE, SELFPAY | PROVIDERS: PCP Family Medicine; Visit Provider Physician Assistant | DX: R60.0 Localized edema (principal) | CPT/HCPCS: 99202 ==

== ENCOUNTER 2024-11-23 06:30 | Emergency (ER) | payer MEDICARE, SELFPAY ==
[2024-11-23] VITALS (7 sets, daily range): BP systolic 112–147; BP diastolic 52–73; PULSE 70–84; RESP 16–20; TEMP 36.5–37.1; O2SAT 94–96; BMI 31.0
--- OUTSIDE RECORDS SUMMARY | 2024-11-23 07:49 | XMS_ITS | Data Portability ---
Author Organization [facility] Pain Managem ent, PAIN OFFICE Address [address] [facility],[address] [address] Care Team Providers Care Skylights Assembler Name Role Phone KOBI REED Primary Care Provider NABOR KIM Referring Provider Assessment Encounter Date Assessment Date Assessment [...] booked for the same. 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 [...] By Organization Details Last Modified Time 01/15/2020 [id number] She was advised against bed rest lasting longer than four days and to continue activities as tolerated. [email or web address] Not available 01/16/2020 10:57:52 02/24/2020 [id number] She was advised against bed rest lasting longer than four days and to continue activities as tolerated. [email or web address] Not available 02/24/2020 11:22:12 Reason for Referral None Reported. Problems Name Problem SNOMED Code Status Onset Date Resolution Date Notes Provider Name and Address Organization Details Recorded Time Lumbosacral radiculopathy 8051606 Rich palma MD [address] [facility] , [address], [facility], [address], [place] [facility] 0 10:22:34 Spinal stenosis of lumbar region 21482755 Rich palma MD [address] , [address], [facility] [place], [address], [place] [facility] 0 09:28:05 Degeneration of lumbar intervertebral disc 17303334 Rich palma MD [address] , [address], [facility] [place], [address], [place] [facility] 0 09:28:15 Lumbosacral spondylosis without myelopathy 24505522 Rich palma MD [address] [facility] , [address], [place], [address], [place] [facility] 0 09:28:29 Problem Notes None recorded. Procedures Surgical History Date Name Laterality Status Provider Name and Address Organization Details Recorded Time 02/24/20 20 Lumbar Epidural steroid injection under fluoroscopic guidance completed Frank Pathak MD [address] [facility] , [address], [place], [address], [place] [facility] 02/24/2020 11:21:33 Tonsillectomy completed Frank Pathak MD [address] [facility] , [address], [place], [address], [place] [facility] 01/15/2020 10:25:16 Appendectomy completed Frank Pathak MD [address] [facility] , [address], [place], [address], [place] [facility] 01/15/2020 10:25:26 Cholecystectomy completed [facility] MD [address] [facility] , [address], [place], [address], [place] [facility] 01/15/2020 10:26:10 Eye Surgery completed Frank Pathak MD [address] [facility] , [address], [place], [address], [place] [facility] 01/15/2020 10:26:27 complete repair of rotator cuff completed Frank Pathak MD [address] [facility] , [address], [place], [address], [place] [facility] 01/15/2020 10:26:46 Imaging Results None recorded. Procedure Notes None recorded. Medical Equipment None Reported. Allergies Allergen ID Allergen Name Allergen Category Reaction Reaction Severity Criticality Documentation Date Start Date Code Code System Note Provider Name and Address Organization Details Recorded Time 92028 Iodinated contrast media (substanc e) medicatio n hives Not available Not available 01/15/2020 28033 2003 SNOMED Frank palma MD [address] , [address], [place], [address], [place] [facility] [...] Updated DateTime 0 157.48 cm 36.6 kg/m2 43270.4 7 g 73 /min 93 % 93 % 6 170 mm[Hg] 67 mm[Hg] Frank palma MD [address] , [address], [place], [address], [place] [facility] 0 [...] Status Never Smoker Frank Pathak MD [address] , [address], [place], [address], [place] [facility] 01/15/2020 10:24:20 [...] [email or web address] Not available 01/15/2020 10:23:56 Mother Malignant neoplasm of lung [email or web address] Not available 12/22 10:27:10 [...] SNOMED-CT Code Diagnosis ICD10 Code Diagnosis Note [id number] Frank Pathak MD PAIN OFFICE [address] [place] [address] 01/15/2020 09:43:34 01/16/2020 10:58:45 Lumbosacral radiculopathy 4523069 M54.17 Spinal lana nosis of lumbar region 58250291 M48.061 Degenerati on of lumbar intervertebral disc 47758013 M51.36 Lumbosacra l spondylosis without myelopathy 74645426 M47.817 [id number] Frank Pathak MD PAIN OFFICE [address] [place] [address] 02/24/2020 10:56:20 02/24/2020 11:25:15 Lumbosacral radiculopathy 4784252 M54.17 Spinal lana nosis of lumbar region 20940656 M48.061 Degenerati on of lumbar intervertebral disc 13084219 M51.36 Lumbosacra l spondylosis without myelopathy 13813706 M47.817 Health Concerns Section Related Observation LastModified by Organization Detai ls LastModified Time None Recorded Concern Status LastModified by Organization Details LastModified Time None Recorded Advance Directives Directive None Recorded Payers Encounter Date Sequence Insurance Name Policy Number Policy Stinson Covered Member ID Stinson Member ID Guarantor Name 01/15/2020 1 [place] Maris Nash [id number] Marisalexsandra ByrdCharity 01/15/2020 2 [place] [id number] Marisalexsandra MoodyCharity [id number] Maris Charity 02/24/2020 1 [place] Maris Nash [id number] Maris Charity 02/24/2020 2 [place] [id number] Maris Nash [id number] Maris Nash Notes Date Note Type [...] help. Tramadol helped. Frank Pathak MD [address] [facility] , [address], [place], [address], [facility] Pain Management 01/19/2020 09:19:01 02/24/2020 text/html She is here for a trial of lumbar epidural steroid injection under fluoroscopic guidance. Frank Pathak MD [address] [facility] , [address], [place], [address], [facility] - Pain Management 02/24/2020 14:07:17 OBGyn Episode No OBEpisode recorded.
--- OUTSIDE RECORDS SUMMARY | 2024-11-23 07:49 | XMS_ITS | Data Portability ---
Author Organization [place] - [facility] Address [address] [place] [id number] Care Team Providers Care Assembler Metal Furniture Name Role Phone AJAY PINK Primary Care Provider [phone] Assessment Encounter Date Assessment Date Assessment LastModified [...] discomfort is noted with flexion, extension, and rcpw-md-hejb rotation of the lumbar spine. Straight leg raise test is negative bilaterally. Sensation to the upper and lower extremities is normal bilaterally. No clonus is noted. Structures Technician strength is normal bilaterally. Dorsi/plantar flexion is normal bilaterally. Motor function is normal with muscle strength 5/5 bilaterally to upper and lower extremities. Sensation is intact bilaterally. Reflexes 2+ bilaterally. Cranial nerves 2-12 are intact. No focal neuro deficits, normal [id number], no pronator drift. DDx considered, but not [...] hand Plan/Discussion: Called Dr Genet Bedolla ( flooring salesperson) and in agreement to escalate pt to ED due to UC, ALTAGRACIA Report written out for medics, called report to AJ at [facility] Proper Personal Protective Equipment (PPE), including gloves, eye protection and masks were donned and doffed appropriately and all equipment cleaned using approved technique with germicidal disposable wipes prior to and after care of this patient according to [facility]'s infection prevention protocols. devon Not available 01/18/2022 22:17:19 Plan of Treatment Reminders Order Date Submit Date Provider Last Modified By Organization Details Last Modified Time Details Appointments None recorded. Lab BMP + ionized calcium, serum or plasma 2021 FÉLIX [facility], [address] [place], [address], 3 05:00:56 CBC w/ auto diff - [facility] nbyron [facility] (Centralized Electronic Ordering - All Locations), Patient Can Go To The Location Of Their Choice, [id number] 14:31:52 Referral None recorded. Procedures None recorded. Surgeries None recorded. Imaging None recorded. Medication Orders sodium chloride 0.9 % intraveno us solution 2021 022 [id number], [address] [place], [address], 21:44:37 diclofena c 1 % topical gel 2018 019 INTERFACE [id number], [address] [place], [address], 17:22:03 prednison e 20 mg tablet 2018 019 devon [id number], [address] [facility], [place], [address], 2 20:31:12 Patient TargetsNo targets recorded. Patient Instructions Encounter Date Encounter Id Patient Instructions Last Modified By Organization Details Last Modified Time 07/07/2019 [id number] sciatica: care instructions jean-paul Not available 07/07/2019 [...] PHYSICAL THERAPY Your Care Instructions Sciatica (say uqf-RW-yb-kuh ) is an irritation of one of [...] your doctor if you can take an lroh-lzi-mogsfoe medicine. Use heat or ice to relieve [...] expected. Thank you [facility]. We cannot always find the [...] in your condition between 8am-10pm, please call [facility] at [phone] to help navigate your care. [email or web address] Not available 07/07/2019 17:21:54 Reason for Referral None Reported. Results Created Date Observation Date Name Description Value Unit Range Abnormal Flag Note LastModifiedBy Organization Detail LastModifiedTime 01/19/20 22 01/18/2022 BMP + IONIZ ED CALCI UM, SERUM OR PLASM A glu 104 mg/dL 70-105 Not Available [facility] [address] [place], [address], 01/18/2022 21:18:35 01/19/20 22 01/18/2022 BMP + IONIZ ED CALCI UM, SERUM OR PLASM A BUN 27 mg/dL 8-26 Not Available [facility] [address] [place], [address], 01/18/2022 21:18:35 01/19/20 22 01/18/2022 BMP + IONIZ ED CALCI UM, SERUM OR PLASM A crea 2.1 mg/dL 0.6-1. 3 Not Available [facility] [address], [address], 01/18/2022 21:18:35 01/19/20 22 01/18/2022 BMP + IONIZ ED CALCI UM, SERUM OR PLASM A Na 136 mmol/ L 138-14 6 Not Available [address], [address], 01/18/2022 21:18:35 01/19/20 22 01/18/2022 BMP + IONIZ ED CALCI UM, SERUM OR PLASM A K 3.8 mmol/ L 3.5-4. 9 Not Available [address], [address], 01/18/2022 21:18:35 01/19/20 22 01/18/2022 BMP + IONIZ ED CALCI UM, SERUM OR PLASM A cL 96 mmol/ L 98-109 Not Available [address], [address], 01/18/2022 21:18:35 01/19/20 22 01/18/2022 BMP + IONIZ ED CALCI UM, SERUM OR PLASM A TCO2 26 mmol/ L 24-29 Not Available [address], [address], 01/18/2022 21:18:35 01/19/20 22 01/18/2022 BMP + IONIZ ED CALCI UM, SERUM OR PLASM A angap 19 mmol/ L 10-20 Not Available [address], [address], 01/18/2022 21:18:35 01/19/20 22 01/18/2022 BMP + IONIZ ED CALCI UM, SERUM OR PLASM A ica 1.06 mmol/ L 1.12-1 .32 Not Available [address], [address], 01/18/2022 21:18:35 01/19/20 22 01/18/2022 BMP + IONIZ ED CALCI UM, SERUM OR PLASM A HCT 45 %pcv 38-51 Not Available [facility] [address] [place], [address], 01/18/2022 21:18:35 01/19/20 22 01/18/2022 BMP + IONIZ ED CALCI UM, SERUM OR PLASM A Hb 15.3 g/dL 12-17 Not Available [facility] [address] [place], [address], 01/18/2022 21:18:35 03/14/20 22 03/14/2022 COMPL ETE CBC WITH DIFF results Patie nt refus ed, reord er test if neede d Not Available [facility] (Centralized Electronic Ordering - All Locations) Patient Can Go To The Location Of Their Choice, [id number] 03/14/2022 11:24:15 Result Notes None recorded. Procedures Surgical History Date Name Laterality Status Provider Name and Address Organization Details Recorded Time 022 IV Start Procedure - DH completed Suma Forrest NP [address] [place], [address], [place] [facility] 01/18/2022 21:31:34 cholecystectomy completed Suma Forrest NP [address], [place], [address], [place] [facility] 01/18/2022 20:37:07 Imaging Results None recorded. Procedure Notes None recorded. Medical Equipment None Reported. Allergies Allergen ID Allergen Name Allergen Category Reaction Reaction Severity Criticality Documentation Date Start Date Code Code System Note Provider Name and Address Organization Details Recorded Time 019098 Iodinated contrast media (substanc e) medicatio n Not available Not available Not available 01/18/2022 64521 2003 SNOMED Suma Forrest NP [address], [place], [address], [place] [facility] 20:27:42 117662 amoxicill in medicatio n Not available Not available Not available 01/18/2022 723 RxNorm Suma Forrest , ELECTRONICS TEACHER [address] [facility] [place], [address], [place] [facility] 20:27:51 Medications Name Sig Start Date Stop [...] Tobacco Smoking Status Never Smoker [facility] [address] [place] [address], [address], [place] [facility] 07/07/2019 17:35:17 Do You [...] Notes:patient can't recall Medical History Condition Response Coronary Artery Disease Y COPD N Depression N Cancer N Stroke N High Cholesterol Y Kidney Disease N Diabetes N Asthma N Pulmonary Embolism N Hypertension Y Gynecological HistoryNo gynecological history recorded. Obstetrics History GPAL:G 0 P 0 0 0 0 Past Encounters Encounter ID Performer Location Encounter Start Date Encounter Closed Date Diagnosis/Indication Diagnosis SNOMED-CT Code Diagnosis ICD10 Code Diagnosis Note [id number] [facility] [address] [place] [address] 07/07/2019 16:47:46 07/09/2019 12:01:53 Right side sciatica 9836533368 49282 M54.31 [id number] Suma Forrest NP [facility] [address] [address] 01/18/2022 20:25:00 01/20/2022 12:39:11 Ulcerative colitis 68406631 K51.80 Acute-on-c hronic renal failure 152108195 N17.8 Health Concerns Section Related Observation LastModified by Organization Detai ls LastModified Time None Recorded Concern Status LastModified by Organization Details LastModified Time None Recorded Advance Directives Directive N: Payers Encounter Date Sequence Insurance Name Policy Number Policy Stinson Covered Member ID Stinson Member ID Guarantor Name 07/07/2019 2 [facility] Maris Nash [id number] Maris Moodyardi 07/07/2019 1 [place] (MEDICARE REPLACEMENT HMO) Maris Moodyardi [id number] Maris ByrdCharity 01/18/2022 2 [place] ([place]) [id number] Maris Moodyardi [id number] Maris ByrdCharity 01/18/2022 1 [place]IC[place] [employer] Maris Nash [id number] Maris Nash Notes Date Note Type Note [...] of the effected extremity [facility] [address], [place], [address], [place] [facility] 07/07/2019 19:09:18 01/18/2022 text/html [...] shortness of breath. Suma Forrest NP [address], [place], [address], [place] [facility] 01/18/2022 22:17:29 OBGyn Episode No OBEpisode recorded.
--- NOTE | 2024-11-23 08:10 | ED_ITS ---
HPI - General Adult General Chief complaint: Fall Stated complaint: Skin tear L knee after sliding out of wheelchair Time Seen by Provider: 11/23/24 08:10 History of Present Illness ED Provider: Anna Marie LANE narrative: The patient is an 84-year-old woman who lives at home. She is quite frail. She gets around in a wheelchair. She says that she was trying to arrange her breakfast this morning when she lost her balance and fell forward out of her wheelchair landing on her knees, primarily her left knee. She sustained a large skin tear to the knee. She lives at home with her son. She yelled for her son who came and found her on the floor. He called an ambulance and she was brought to the hospital. She did not hit her head. The patient is normally on apixaban. She says she has not taken her apixaban for the last 10 days because she had a tooth pulled. Related Data Home Medications ?Medication ?Instructions ?Recorded ?Confirmed apixaban 5 mg tablet (Eliquis) 5 mg PO BID 12/02/20 11/23/24 atorvastatin 40 mg tablet 1 tab PO BEDTIME 05/11/21 11/23/24 duloxetine 20 mg capsule,delayed 20 mg PO BEDTIME 02/09/24 11/23/24 release nitroglycerin 0.4 mg sublingual 0.4 mg sublingual Q5M PRN Chest 02/09/24 11/23/24 tablet Pain metoprolol succinate 25 mg 25 mg PO DAILY 05/28/24 11/23/24 tablet,extended release 24 hr spironolactone 25 mg tablet 25 mg PO BID 05/28/24 11/23/24 dapagliflozin propanediol 10 mg 10 mg PO DAILY 11/13/24 11/23/24 tablet (Farxiga) amoxicillin 500 mg capsule 500 mg PO TID 11/23/24 11/23/24 furosemide 20 mg tablet 20 mg PO DAILY 11/23/24 11/23/24 gabapentin 300 mg capsule 300 mg PO BID 11/23/24 11/23/24 isosorbide mononitrate 30 mg 30 mg PO BID 11/23/24 11/23/24 tablet,extended release 24 hr ropinirole 0.5 mg tablet 0.5 mg PO QID 11/23/24 11/23/24 Previous Rx's ?Medication ?Instructions ?Recorded azathioprine 50 mg tablet 50 mg PO BID #180 tabs 07/01/24 budesonide 3 mg 9 mg (3 x 3 mg) PO DAILY #270 caps 07/21/24 capsule,delayed,extended release blood pressure test kit-wrist #1 ea 11/13/24 Allergies Allergy/AdvReac Type Severity Reaction Status Date / Time barium Allergy Unknown Hives Uncoded 11/23/24 06:48 dogs, cats etc.. Allergy Unknown Unknown Uncoded 11/23/24 06:48 Review of Systems 2 Review of Systems: Yes all other systems are reviewed and are negative [facility] Past Medical History Medical History History of CHF (congestive heart failure) Constipation Acute proctitis Hemorrhoids Spinal abscess Restless leg syndrome HTN (hypertension) Pre-diabetes DVT (deep venous thrombosis) Colitis Ulcerative colitis Surgical History Hx of shoulder surgery Social History Social History Household Members: Other Household Members Other:: son Housing: House Do you presently have visiting nurse or other home services: Yes Unable to assess alcohol history related to: Unable to respond Alcohol intake: former Patient Tobacco Use Status: Never used Tobacco Smoked in Last 30 Days: No Use of substances other than those prescribed or required for medical reasons: No Advance Directives: Yes Advance Directives on File: Yes Advance Directives Date on File: 11/16/22 service: No Current occupational status: retired Physical Exam ED Vital Signs: Vital Signs - 24 hr 11/23/24 12:18 11/23/24 15:55 11/23/24 20:51 Temperature 98.8 F 98 F Pulse Rate 73 73 70 Respiratory Rate 18 18 16 Blood Pressure 142/73 H 113/57 L 112/52 L Pulse Oximetry 96 96 96 Oxygen Delivery Method Room Air Room Air 11/23/24 23:37 11/23/24 23:38 11/23/24 23:39 Temperature Pulse Rate 75 Respiratory Rate 20 Blood Pressure 122/53 L 122/53 L 122/53 L Pulse Oximetry 96 Oxygen Delivery Method 11/24/24 06:41 11/24/24 09:11 11/24/24 09:13 Temperature 97.8 F Pulse Rate 71 77 Respiratory Rate 16 Blood Pressure 110/55 L 153/58 H 153/58 H Pulse Oximetry 93 Oxygen Delivery Method Room Air 11/24/24 09:13 11/24/24 09:14 Temperature Pulse Rate Respiratory Rate Blood Pressure 153/58 H 153/58 H Pulse Oximetry Oxygen Delivery Method BMI result Body Mass Index 31.0 Const Other: The patient is a chronically ill-appearing 84-year-old woman who was awake and alert. She has a normal mental status. She does not seem acutely toxic. HENMT Other: No sign of injury to the head or the face. Eyes General: appearance normal, both eyes and all related structures Neck Other: No posterior midline C-spine tenderness. Good range of motion of neck with the pain. No JVD. Resp Effort & Inspection: normal respiratory effort Auscultation: clear to auscultation bilaterally Cardio Rate: regular rate Rhythm: regular rhythm Heart sounds: S1 normal heart sound present and S2 normal heart sound present GI Other: Abdomen is soft and nontender Skin Other: The patient has a large area of skin injury in the region of the left knee. The majority of the injury consists of skin tears with avulsion of skin from an area approximately 10 cm in diameter. Within the area of the avulsed skin there is a deeper laceration which extends into the subcutaneous fat. The length of this laceration is about 4 cm. Neuro Other: The patient is awake and alert. Cranial nerves are grossly intact. She moves her extremities symmetrically. She seems poorly conditioned but has a nonfocal exam. Extrem Other: The patient has a large area of skin injury the region of the left knee but she is able to move the left knee easily without significant discomfort. She has bilateral lower extremity edema. Course Course Course Narrative: Time: 10:49 Date: 11/24/24 Provider: [facility] Physician observation ended at 1100. Patient will be going home VNA for snf and physical therapy. Son will transport patient home Medications Administered Discontinued Medications Generic Name Dose Route Start Last Admin Trade Name Freq PRN Reason Stop Dose Admin Apixaban 5 mg 11/23/24 21:00 11/24/24 09:13 Apixaban 5 Mg Tablet PO 5 mg BID AUDI Administration Atorvastatin Calcium 40 mg 11/23/24 21:00 11/23/24 23:40 Atorvastatin Calcium 40 Mg Tablet PO 40 mg BEDTIME AUDI Administration Azathioprine 50 mg 11/23/24 21:00 11/24/24 09:14 Azathioprine 50 Mg Tablet PO 50 mg BID AUDI Administration Budesonide 9 mg 11/24/24 09:00 11/24/24 09:[address] 3 Mg Capsule PO 9 mg DAILY AUDI Administration Cephalexin HCl 1,000 mg 11/23/24 09:41 11/23/24 10:35 Cephalexin 500 Mg Capsule PO 11/23/24 09:42 1,000 mg ONCE ONE Administration Cephalexin HCl 500 mg 11/23/24 15:00 11/24/24 09:13 Cephalexin 500 Mg Capsule PO 500 mg TID AUDI Administration Diphtheria/Tetanus/Acell Pertussis 0.5 ml 11/23/24 11:22 11/23/24 12:04 Diphth,Pertus(Acell),Tet Adult 0.5 Ml Syringe IM 11/23/24 11:23 0.5 ml .ONCE ONE Administration Duloxetine HCl 20 mg 11/23/24 21:00 11/23/24 23:40 Duloxetine Hcl 20 Mg Capsule.Dr PO 20 mg BEDTIME AUDI Administration Empagliflozin 10 mg 11/23/24 13:30 11/24/24 09:13 Empagliflozin 10 Mg Tablet PO 10 mg DAILY AUDI Administration Furosemide 20 mg 11/23/24 13:10 11/24/24 09:13 Furosemide 20 Mg Tablet PO 20 mg DAILY AUDI Administration Protocol Gabapentin 300 mg 11/23/24 13:10 11/24/24 09:11 Gabapentin 300 Mg Capsule PO 300 mg BID AUDI Administration Isosorbide Mononitrate 30 mg 11/23/24 13:10 11/24/24 09:13 Isosorbide Mononitrate 30 Mg Tab.Er.24h PO 30 mg BID AUDI Administration Protocol Lidocaine HCl 10 ml 11/23/24 08:46 11/23/24 10:22 Lidocaine Hcl 1 % Mpf 5 Ml Vial INFILTRATI 11/23/24 08:47 10 ml ONCE ONE Administration Metoprolol Succinate 25 mg 11/23/24 13:15 11/24/24 09:11 Metoprolol Succinate Er 25 Mg Tab.Er.24h PO 25 mg DAILY AUDI Administration Protocol Ropinirole HCl 0.5 mg 11/23/24 17:00 11/24/24 13:40 Ropinirole Hcl 0.5 Mg Tablet PO Not Given QID AUDI Spironolactone 25 mg 11/23/24 13:15 11/24/24 09:14 Spironolactone 25 Mg Tablet PO 25 mg BID [facility] Administration Protocol Procedures Laceration Laceration 1: Site: lower extremity (Wound on left knee. There is a large area of skin tear. With the in the area of avulsed skin there is also a deeper laceration. The diameter of the region of skin tear is about 10 cm. The length of the laceration is about 4 cm) Side (If applicable): left Size (cm): 4 Description: linear Depth: simple, single layer Local Anesthetic: lidocaine 1% Amount of anesthesia used (mL): 6 Pre-repair: wound explored, irrigated extensively and deep structures intact Skin layer closed with: nylon Size (cm): 3-0 Number of sutures: 4 Technique: simple, interrupted (Two simple interrupted stitches, 2 vertical mattress sutures) Medical Decision Making Medical Decision Making MDM Narrative: The patient is an 84-year-old woman who fell out of her wheelchair. She lives at home with her son. She is quite chronically ill and gets around in a wheelchair. She does not have much help at home. Her son has multiple medical problems as well. Her primary injury today seems to be a skin wound to the left knee. Much of the wound was a superficial skin tear but there is a deeper laceration within the area of skin tear. This was therefore a somewhat complicated wound repair. Wound was cleaned with saline. The wound was explored. It is fairly deep into the subcutaneous fat but I do not think it violates the joint. In closing the wound I 1st approximated the avulsed skin to cover as much of the wound as possible by arranging it back into its anatomical position. I then applied Steri-Strips to keep the skin flaps in place. Since the wound edges of the laceration has been avulsed I placed Steri-Strips across the wound edges and placed sutures through the Steri-Strips to help close the wound. The wound was closed with 3-0 nylon. I placed 2 vertical mattress sutures and 2 simple interrupted sutures. Adequate wound edge approximation was achieved. Additional Steri-Strips were applied over the sutures as well. The patient could not tell me when she last had a tetanus shot and I could find no administration of tetanus shots in any recent emergency room visits. I therefore ordered a tetanus booster. The patient was started on cephalexin for wound infection prophylaxis. This was a somewhat complicated wound and I have some concern it might be at high-risk for infection. The patient's daughter arrived. She feels that the patient is doing a very poor job of taking care of herself at home. The daughter also feels that the son who lives at home with the patient has a lot of medical problems and cannot be relied upon to help care for the patient. The daughter says the house is very handicapped accessible but otherwise the patient does not have much in the way of services at home. Given the daughter's concern that discharge home with the current services available might not be a safe discharge the patient will be kept in the emergency department to be seen by case management and physical therapy to discuss what might be available to help while this patient is somewhat even more disabled by the wound on her knee. A bulky dressing was applied over the wound with Kerlix wrapped around the knee covered with Roe bandages wrapped around the knee as well. The patient will be placed in physician observation pending evaluation by PT and case management. Lab Data 11/23/24 09:53 11/23/24 09:53 Labs: Lab Results 11/23/24 11/24/24 Range/Units 09:53 08:53 WBC 9.7 (4.8-10.8) X10*3/uL RBC 4.30 (4.20-5.50) X10*6/uL Hgb 11.5 L (12.0-16.0) g/dl Hct 35.5 L (37.0-47.0) % MCV 82.6 (80.0-98.0) fL MCH 26.7 L (27.0-33.0) pg MCHC 32.4 (31.0-35.0) g/dl RDW 18.6 H (11.0-16.0) % Plt Count 396 (160-400) X10*3/uL MPV 9.5 (9.4-12.3) fL Immature Gran % (Auto) 1.1 H (0.0-0.4) % Neut % (Auto) 81.6 H (45-73) % Lymph % (Auto) 7.9 L (20-40) % Ness % (Auto) 8.9 (2-11) % Eos % (Auto) 0.3 (0-4) % Baso % (Auto) 0.2 (0-2) % Lymph # (Auto) 0.8 L (1.2-4.9) X10*3/uL Ness # (Auto) 0.9 (0.1-1.2) X10*3/uL Eos # (Auto) 0.0 (0.0-0.4) X10*3/uL Baso # (Auto) 0.0 (0.0-0.2) X10*3/uL Abs Immat Gran (auto) 0.11 H (0.00-0.03) X10*3/uL Absolute Neuts (auto) 7.9 (2.0-8.3) x10*3/uL Absolute Nucleated RBC 0.000 (0.0-0.012) X10*3/uL Nucleated RBC % (auto) 0.0 (0.0-0.2) /100WBC Sodium 136 (135-145) mmol/L Potassium 4.6 (3.3-5.1) mmol/L Chloride 100 (96-108) mmol/L Carbon Dioxide 27 (22-29) mmol/L Anion Gap 14 (12-20) BUN 40 H (9-16) mg/dL Creatinine 0.95 (0.5-1.4) mg/dL Estim Creat Clear Calc 41.6 Estimated GFR 56 Random Glucose 271 H (60-115) mg/dL Calcium 9.4 D (8.4-10.2) mg/dL Magnesium 2.6 (1.6-2.6) mg/dL Influenza Type A (PCR) NEGATIVE (Negative) Influenza Type B (PCR) NEGATIVE (Negative) RSV RNA Qual (PCR) NEGATIVE (Negative) SARS-CoV-2 RNA (RT-PCR) NEGATIVE (Negative) Discharge Plan Discharge Clinical Impression: Laceration of left knee, Noninfected skin tear of left leg, Fall Patient Disposition: Home, Self-Care Instructions: Laceration (DC) Additional Instructions: You are being discharged home with VNA for snf and physical therapy Your wounds were repaired today in the emergency department. Keep dry and clean. You need to return to any emergency department, urgent care, or your PCPs office in 7-10 days for suture removal Apply bacitracin and or Neosporin daily Once sutures are removed apply anti scar cream like Mederma If area begins look infected, is red, there is drainage, streaking, or you have fever please return to the emergency department Prescriptions: No Action azathioprine 50 mg tablet 50 mg PO BID Qty: 180 2RF budesonide 3 mg capsule,delayed,extend.release 9 mg PO DAILY Qty: 270 3RF atorvastatin 40 mg tablet 1 tab PO BEDTIME duloxetine 20 mg Capsule,Delayed Release(Dr/Ec) 20 mg PO BEDTIME nitroglycerin 0.4 mg Tablet, Sublingual 0.4 mg SUBLINGUAL Q5M PRN (Reason: Chest Pain) Rx Instructions: do not exceed 3 doses per episode spironolactone 25 mg tablet 25 mg PO BID metoprolol succinate 25 mg tablet extended release 24 hr 25 mg PO DAILY amoxicillin 500 mg capsule 500 mg PO TID furosemide 20 mg tablet 20 mg PO DAILY gabapentin 300 mg capsule 300 mg PO BID isosorbide mononitrate 30 mg tablet extended release 24 hr 30 mg PO BID ropinirole 0.5 mg tablet 0.5 mg PO QID Eliquis 5 mg tablet 5 mg PO BID dapagliflozin propanediol [Farxiga] 10 mg tablet 10 mg PO DAILY (DME) blood pressure test kit-wrist Kit See Rx Instructions .Route Qty: 1 0RF Rx Instructions: As directed Referrals: Adi SANDERS [Outside] (Agency will call to arrange a visit. ) Interventions: ED Discharge Assessment Last Done: 11/24/24 13:41 Discharge Date/Time: 11/24/24 13:42 Print Language: Pashto
[2024-11-23 09:56] LABS: MANUAL DIFF FLAG NO
[2024-11-23 10:11] LABS: Anion Gap 14 (12-20); Blood Urea Nitrogen 40 mg/dL (9-16); Calcium 9.4 mg/dL (8.4-10.2); Carbon Dioxide 27 mmol/L (22-29); Chloride 100 mmol/L (96-108); Creatinine Clr Calc Pharmacy 41.6; Estimated Glomerular Filt Rate 56; Glucose Random 271 mg/dL (60-115); Magnesium 2.6 mg/dL (1.6-2.6); Potassium 4.6 mmol/L (3.3-5.1); Sodium 136 mmol/L (135-145)
[2024-11-23 10:17] LABS: Basophils Percent Auto 0.2 % (0-2); Eosinophils Percent Auto 0.3 % (0-4); Hematocrit 35.5 % (37.0-47.0); Hemoglobin 11.5 g/dl (12.0-16.0); Imm Gran Abs Auto 0.11 X10*3/uL (0.00-0.03); Imm Gran Pct Auto 1.1 % (0.0-0.4); Lymphocytes Absolute Auto 0.8 X10*3/uL (1.2-4.9); Lymphocytes Percent Auto 7.9 % (20-40); Mean Corpuscular HGB Conc 32.4 g/dl (31.0-35.0); Mean Corpuscular Hemoglobin 26.7 pg (27.0-33.0); Mean Corpuscular Volume 82.6 fL (80.0-98.0); Mean Platelet Volume 9.5 fL (9.4-12.3); Monocytes Absolute Auto 0.9 X10*3/uL (0.1-1.2); Monocytes Percent Auto 8.9 % (2-11); Neutrophils Absolute Auto 7.9 x10*3/uL (2.0-8.3); Neutrophils Percent Auto 81.6 % (45-73); Platelet Count 396 X10*3/uL (160-400); Red Cell Distribution Width 18.6 % (11.0-16.0); White Blood Count 9.7 X10*3/uL (4.8-10.8)
[2024-11-23] MEDS: Lidocaine HCl 1 % MPF 5 ML VIAL 10 ML INFILTRATI (10:22)
[2024-11-23] MEDS: cephALEXin 500 MG CAPSULE 1000 MG PO (10:35)
[2024-11-23] MEDS: Diphth,Pertus(ACell),Tet Adult 0.5 ML SYRINGE IM (12:04)
--- NOTE | 2024-11-23 12:56 | PC.NURSE ---
Med rec completed using patients handwritten home med list and confirmed with son at bedside , hard copy placed in patients chart
--- NOTE | 2024-11-23 13:18 | PHA.MEDREC ---
Pharmacy Consult ? Medication Reconciliation RN has completed the medication reconciliation,[facility] reviewed .
[2024-11-23] MEDS: Spironolactone 25 MG TABLET PO ×2 (13:33→23:39)
[2024-11-23] MEDS: Gabapentin 300 MG CAPSULE PO ×2 (13:33→23:40)
[2024-11-23] MEDS: Furosemide 20 MG TABLET PO (13:34)
[2024-11-23] MEDS: Isosorbide Mononitrate 30 MG TAB.ER.24H PO ×2 (13:34→23:38)
[2024-11-23] MEDS: Metoprolol Succinate ER 25 MG TAB.ER.24H PO (13:34)
[2024-11-23] MEDS: cephALEXin 500 MG CAPSULE PO ×2 (15:52→23:40)
[2024-11-23] MEDS: rOPINIRole HCL 0.5 MG TABLET PO ×2 (15:52→23:38)
--- NOTE | 2024-11-23 20:52 | MHC.EDTECH ---
pt on bed marti with small amount of stool. states it feels stuck . RN made aware. PT cleaned, changed into hospital attire, [place] changed, calm and comfortable at this time.
[2024-11-23] MEDS: Atorvastatin Calcium 40 MG TABLET PO (23:40)
[2024-11-23] MEDS: DULoxetine HCl 20 MG CAPSULE.DR PO (23:40)
--- NOTE | 2024-11-23 23:54 | PC.NURSE ---
Pt resting comfortably on stretcher, callbell within reach. Delay in medication administration r/t critical patient care.
--- NOTE | 2024-11-24 05:31 | PC.NURSE ---
Pt in from home after falling out of wheelchair and sustaining a skin tear to left knee. Pt hx of HTN, CHF, restless leg syndrome, ulcerative colitis, GERD. Pt is wheelchair bound at baseline. Pt A&Ox4. Rings callbell appropriately. Takes medications whole with water. Pt is on purewick. Pt is PT/CM and awaiting PT eval and placement. Daughter at home is unable to care for her at this time.
[2024-11-24 06:41] VITALS: BP 110/55; PULSE 71; RESP 16; TEMP 36.6; O2SAT 93
[2024-11-24] MEDS: rOPINIRole HCL 0.5 MG TABLET PO (09:10)
[2024-11-24 09:11] VITALS: BP 153/58; PULSE 77
[2024-11-24] MEDS: Metoprolol Succinate ER 25 MG TAB.ER.24H PO (09:11)
[2024-11-24] MEDS: Gabapentin 300 MG CAPSULE PO (09:11)
[2024-11-24 09:13] VITALS: BP 153/58
[2024-11-24] MEDS: Furosemide 20 MG TABLET PO (09:13)
[2024-11-24] MEDS: Apixaban 5 MG TABLET PO (09:13)
[2024-11-24] MEDS: cephALEXin 500 MG CAPSULE PO (09:13)
[2024-11-24] MEDS: Empagliflozin 10 MG TABLET PO (09:13)
[2024-11-24] MEDS: Isosorbide Mononitrate 30 MG TAB.ER.24H PO (09:13)
[2024-11-24 09:14] VITALS: BP 153/58
[2024-11-24] MEDS: azaTHIOprine 50 MG TABLET PO (09:14)
[2024-11-24] MEDS: Spironolactone 25 MG TABLET PO (09:14)
[2024-11-24] MEDS: Budesonide DR 3 MG Capsule 9 MG PO (09:14)
--- NOTE | 2024-11-24 09:52 | MHC.CM.ED ---
Addendum entered by Park Sims 11/24/24 10:28: Physical therapy eval completed. Home with services is recommended. Patient was d/c'd from [facility] in September 2024. Return referral made for intermediate and physical therapy. Patient's son, Sg will transport patient home after 11am. Patient, Holly RN and Faiza BETHEA aware. Original Note: Received case management consult overnight. Patient came to the ER due to a fall from her wheelchair. Physical therapy eval is pending. Received telephone call from patient's daughter, Lashon. Lashon can be reached via telephone at [phone]. Lashon explained patient has not been using her walker for about 2-3 months. Has basically been transferring herself to and from her wheelchair. Lashon states her brother lives with patient. However, he has DM issues. CM will reach out to Lashon when physical therapy eval is completed. Continue to monitor for d/c needs.
[2024-11-24 10:11] LABS: Influenza A PCR NEGATIVE (Negative); Influenza B PCR NEGATIVE (Negative); Resp Syncy Virus RNA Qual PCR NEGATIVE (Negative); SARS COV2 PCR INHOUSE NEGATIVE (Negative)
--- NOTE | 2024-11-24 12:40 | PC.NURSE ---
pt c/o stool ball unable to pass, this RN contacted Faiza BETHEA and requested manual dis-impaction at this time. this RN attempted to remove stool and retrieved a small amount of stool inside the rectum.
[2024-11-24 13:41] VITALS: BP 130/60; PULSE 80; RESP 16; TEMP 36.8; O2SAT 97
== END 2024-11-24 13:42 | disposition home or self-care (01) ==
PROVIDERS: Physician Assistant; Emergency Provider Emergency Medicine; PCP Family Medicine
DX: S81.012A Laceration without foreign body, left knee, initial encounter (principal); M25.562 Pain in left knee; R54 Age-related physical debility; R26.81 Unsteadiness on feet; W26.9XXA Contact with unspecified sharp object(s), initial encounter; Y93.9 Activity, unspecified; Y92.9 Unspecified place or not applicable; Y99.8 Other external cause status; Z23 Encounter for immunization; Z03.818 Encounter for observation for suspected exposure to other biological agents ruled out; Z79.899 Other long term (current) drug therapy
CPT/HCPCS: 0241U; 36415; 80048; 83735; 85025; 90471; 90715; 97162; 99284; J2003

== ENCOUNTER 2025-01-14 13:19 | Outpatient (AMB) | payer MEDICARE, SELFPAY ==
--- OUTSIDE RECORDS SUMMARY | 2025-01-09 23:59 | XMS_ITS | Continuity of Care Document ---
Author Organization [facility] Address [address] [place] [address]- Care Team Providers Care Paper Reeler Name Role Phone Mick Tatum MD [id number] Date(s): 01/02/25 - 01/09/25 [facility] [address] [place], [place] [address] Attending Physician: Mick Tatum MD Admitting Physician: Mick Tatum MD Referring Physician: Judd Alba NP Encounter Type: Office Visit Allergies, Adverse Reactions, Alerts Substance Criticality Severity Reaction Reaction Severity Status amoxicillin 1 Active Other Food Allergy 2 chicken , [...] Comment: [facility]: [id number]. Screening Checklist reviewed with patient. Negative for any contraindications. 2Result Comment: [id number] 3Location History: DR LOAIZA 4Location History: DR [...] PACKS, # 30 tablet, 5 Refills, Maintenance, 01/13/25 2:25:00 PM EDT, [facility], 157, cm, 08/28/24 13:07:00 EST, Height Start Date: 01/13/25 Stop Date: 07/12/25 Status: Ordered Quantity: 30.0 Unit: tablet Repeat number: 6 atorvastatin 40 mg oral tablet 1 tablet, By Mouth, Daily at bedtime, for 30 days, BUBBLE PACKS, # 30 tablet, 5 Refills, Hard Stop 01/13/25 2:25:00 PM EDT, 07/17/24 2:25:00 PM EST, [facility], 157, cm, 07/01/24 11:34:00 EST, Height Start Date: 07/17/24 Stop Date: 01/13/25 Status: Ordered Quantity: 30.0 Unit: tablet Repeat number: 6 azaTHIOprine 50 mg oral tablet 1, tablet, By Mouth, 2 times a day, # 60 tablet, Refills 5, Maintenance, 12/19/24 4:15:00 AM EDT, [facility], [facility], cm, 08/28/24 13:07:00 EST, Height Start Date: 12/19/24 Status: Ordered Quantity: 60.0 Unit: tablet Repeat number: 1 budesonide 3 mg oral [...] capsule, By Mouth, Daily at bedtime, # 30 capsule, 11 Refills, Maintenance, 12/19/24 4:15:00 AM EDT, [facility], 157, cm, 08/28/24 13:07:00 EST, Height Start Date: 12/19/24 Status: Ordered Quantity: 30.0 Unit: capsule Repeat number: 1 Eliquis 5 mg oral tablet 1 tablet, By Mouth, 2 times a day, # 60 tablet, 5 Refills, Maintenance, 12/19/24 4:14:00 AM EDT, [facility], 157, cm, 08/28/24 13:07:00 EST, Height Start Date: 12/19/24 Status: Ordered Quantity: 60.0 Unit: tablet Repeat number: 1 Farxiga 10 mg oral tablet 1 tablet = 10 mg, By Mouth, Daily, # 90 tablet, 3 Refills, Maintenance, 07/17/24 2:38:00 PM EST, Tablet, [facility], BUBBLE PACK, 157, cm, 07/01/24 11:34:00 EST, Height Start Date: 07/17/24 Status: Ordered Quantity: 90.0 Unit: tablet Repeat number: 4 gabapentin 300 mg oral capsule 1, capsule, By Mouth, 2 times a day, # 60 Unknown, Refills 11, Maintenance, 12/19/24 4:15:00 AM EDT,[facility], [facility], cm, 08/28/24 13:07:00 EST, Height Start Date: 12/19/24 Status: Ordered Quantity: 60.0 Unit: Unknown Repeat number: 1 isosorbide mononitrate 30 mg oral tablet, extended release 30 mg, 1, tablet, By Mouth, Daily at bedtime, Refills 0, Maintenance, 08/18/24 12:12:00 PM EST, Partial fill upon patient request if the prescription is for a schedule II opioid drug. Start Date: 08/18/24 Status: Ordered Repeat number: 1 Juxtafit Knee-high Compression Garments(bilateral) with 2 pairs of compression anklets Juxtafit Knee-high Compression Garments(bilateral) with 2 pairs of compression anklets, See Instructions, # 2 each, Refills 0, Tot. Refills 0, Maintenance, on in the morning off at night DX; lymphedema, venous insufficency, 01/02/25 3:05:00 PM EDT, may dispense juxtalite if insurance coverage is better for that product, Supply Start Date: 01/02/25 Status: Ordered Quantity: 2.0 Unit: each Repeat number: 1 Lasix 20 mg oral tablet 20 mg, 1, tablet, By Mouth, Daily, # 30 tablet, Refills 5, Tot. Refills 5, Maintenance, 09/03/24 11:24:00 AM EST, Route to Pharmacy Electronically, [facility]/pharmacy #[id number], Partial fill upon patient request if the prescription is for a schedule II opioid drug., 157, cm, 08/28/24 13:07:00 EST, Height Start Date: 09/03/24 Stop Date: 03/02/25 Status: Ordered Quantity: 30.0 Unit: tablet Repeat number: 6 metoprolol 25 mg oral tablet, extended release 25 mg, 1, tablet, By Mouth, Daily, Refills 0, Maintenance, 08/18/24 12:12:00 PM EST, Partial fill upon patient request if the prescription is for a schedule II opioid drug. Start Date: 08/18/24 Status: Ordered Repeat number: 1 nitroglycerin 0.4 mg sublingual tablet See Instructions, 1 TABLET SUBLINGUAL EVERY 5 MINUTES FOR 3 DOSES/TIMES NEEDED FOR CHEST PAIN. NOT TO EXCEED 3 DOSES/15 MIN--IF PAIN PERSISTS, SEEK MEDICAL ATTENTION, # 100 tablet, 0 Refills, Maintenance, 05/20/24 12:53:00 PM EDT, [id number], 157, cm, 05/01/24 11:05:00 EDT, Height Start Date: 05/20/24 Status: Ordered Quantity: 100.0 Unit: tablet Repeat number: 1 rOPINIRole 0.5 mg oral tablet See Instructions, 1 tablet twice daily and two tabs qhs BUBBLE PACKS, # 120 tablet, 5 Refills, Maintenance, 12/18/24 2:55:00 PM EDT, [facility], 157, cm, 08/28/24 13:07:00 EST, Height Start Date: 12/18/24 Status: Ordered Quantity: 120.0 Unit: tablet Repeat number: 6 RESIDENTIAL RESIDENTIAL, See Instructions, # 1 each, Refills 0, Tot. Refills 0, Maintenance, Please add in retirement services to eval and treat new large [...] on: 06/27/18 Sex Sex Representation Female (finding) Note * Мария Pineda: PERFORM Event Display: Patient Education/Instruction Authored Date: [id number] Ambulatory Adult Visit Summary [address] [address] Name: FABIENNE URBINA : 1940?? Visit: 01/02/2025 14:23?? Ambulatory Visit Instructions ?? Your Care Team Primary Care Provider Mick Tatum MD? This Visit Provider Santos EMMANUEL , Maty Scherer Vitals Signs Pulse Rate: 86 bpm Height: 157 cm Systolic Blood Pressure: 122 mm Hg Weight: 70.7 kg Diastolic Blood Pressure: 70 mm Hg Body Mass Index:??28.68 kg/m2??High Oxygen Saturation: 96 % Body surface area: 1.76 What to do next Scheduled Follow-Up Appointments Sunday 1:50 PM EDT ?? With: Mick Tatum MD Where: [address] [address]- Status: Pending Sunday 11:00 AM EDT ?? With: Maty Graham NP Where: [address] [address]- Status: Pending Future Orders Basic Metabolic Panel - Routine, Once, 01/08/24 3:00:00 EDT, Single or Recurring Future Order, [facility], Blood?? B Type Natriuretic Peptide (NT ProBNP) - Routine, Once, 01/08/24 3:00:00 EDT, Single or Recurring Future Order, [facility], Blood?? Lipid Panel Non Fasting - Routine, Once, 07/01/24 12:01:00 EST, Single or Recurring Future Order, [facility], Blood?? [...] prescribing provider. What How Much When Instructions New Durable Medical Equipment (Juxtafit Knee- high Compression Garments(bilateral) with 2 pairs of compression anklets) See instructions on in the morning off at night ?? DX; lymphedema, venous insufficency ?? Printed Prescription Unchanged Albuterol (albuterol CFC free 90 mcg/ inh inhalation aerosol) 1 puff(s) Inhalation Every 4 hours as needed for Wheezing/Shortness of Breath Unchanged apixaban (Eliquis 5 mg oral tablet) 1 tab(s) Oral Twice a day Unchanged Atorvastatin (atorvastatin 40 mg oral tablet) 1 tab(s) Oral Daily at Bedtime Duration: 30 Days BUBBLE PACKS ?? Unchanged Atorvastatin (atorvastatin 40 mg oral tablet) 1 tab(s) Oral Daily at Bedtime Duration: 30 Days BUBBLE PACKS ?? Unchanged Azathioprine (azaTHIOprine 50 mg oral tablet) 1 tab(s) Oral Twice a day Unchanged Budesonide (budesonide 3 mg oral delayed release capsule) 3 capsule Oral Daily in the morning Unchanged dapagliflozin (Farxiga 10 mg oral tablet) 1 tab(s) Oral Daily Unchanged Duloxetine (duloxetine 20 mg oral enteric coated capsule) 1 capsule Oral Daily at Bedtime Unchanged Furosemide (Lasix 20 mg oral tablet) 1 tab(s) Oral Daily Duration: 30 Days Unchanged Gabapentin (gabapentin 300 mg oral capsule) 1 capsule Oral Twice a day Unchanged Isosorbide Mononitrate (isosorbide mononitrate 30 mg oral tablet, extended release) 1 tab(s) Oral Daily at Bedtime Unchanged Metoprolol (metoprolol 25 mg oral tablet, extended release) 1 tab(s) Oral Daily Unchanged Miscellaneous Rx (RESIDENTIAL) See instructions Please add in retirement services to eval and treat new large right díaz skin tear. ?? Unchanged Nitroglycerin (nitroglycerin 0.4 mg sublingual tablet) See instructions 1 TABLET SUBLINGUAL EVERY 5 MINUTES FOR 3 DOSES/ TIMES NEEDED FOR CHEST PAIN. NOT TO EXCEED 3 DOSES/ 15 MIN--IF PAIN PERSISTS, SEEK MEDICAL ATTENTION ?? Unchanged Ropinirole (rOPINIRole 0.5 mg oral tablet) See instructions 1 tablet twice daily and two tabs qhs BUBBLE PACKS ?? Unchanged Spironolactone (spironolactone 25 mg oral tablet) 1 tab(s) Oral Twice a day Duration: 90 Days Medications and Immunizations Administered Medications Given During [...] are strongly encouraged to quit. Please call [facility] at [phone] or [phone] ([phone]) or log in to [email or web address] for referrals to smoking cessation programs. ?? The National Suicide Prevention Hotline is available 12/02 if you or someone you know needs to find a reason to keep living. By calling 9-347-561-[employer] (6183) you'll be connected to a skilled, trained counselor at a crisis center in your area. [facility] Health Portal You can view and manage your care through the patient portal or by using a health care debbie of your choosing. [employer] is a website that allows you to securely view your medical information including your hospital discharge summary, office visit summaries, medications and follow-up visits. You can also request appointments, renew medications, and request access to your medical information using a health care debbie of your choosing, or just ask a question. You can enroll at [email or web address] or register during your next office visit. [facility], in keeping with [facility] guidance, no longer requires face masks [...] primary care provider, you may find a [facility] provider by calling [facility] at [phone]. Patient Care team information Care Team Personnel Name: Mojgan Lopez CNM Position: Reference Physician Member Role: Primary Care Nurse Address: [address] [place] [address] Telecom: Name: Lisa Mata RN Position: [facility] AMB Nurse Member Role: Primary Care Nurse Name: Estrellita Putnam RN Position: [facility] RN Member Role: Primary Care Nurse Name: Marlen Kenny RN Position: [facility] RN Member Role: Primary Care Nurse Name: Toshia Muhammad RN Position: [facility] RN Supv Member Role: Primary Care Nurse Name: Suleman Jones RN Position: [facility] RN Member Role: Primary Care Nurse Name: Kathy Medina RN Position: [facility] FAY RN W/OE and Tasks Member Role: Primary Care Nurse Name: Marguerite Wang RN Position: [facility] RN Member Role: Primary Care Nurse Name: Mick Tatum MD Position: [facility] Physician - Primary Care Member Role: PCP Address: [address] [place] [address]- [place] Telecom: Name: Svitlana Clark RN Position: [facility] RN Member Role: Primary Care Nurse Name: Yoana Guevara RN Position: [facility] RN Member Role: Primary Care Nurse Name: Pierre Groves RN Position: [facility] RN Member Role: Primary Care Nurse Name: Carmen Murphy NP Position: [facility] PCO Associate Professional Member Role: Primary Care Nurse Address: [address] [place] [address]- [place] Telecom: Name: Rylie Ordonez RN Position: [facility] RN Member Role: Primary Care Nurse Name: Mraisa Negrete RN Position: [facility] AMB Nurse Member Role: Primary Care Nurse Name: Aditi Brown RN Position: [facility] Onco RN Member Role: Primary Care Nurse Name: Chana Cazares RN Position: [facility] RN Member Role: Primary Care Nurse Name: Isabel Gray Position: [facility] MA Engineering Consultant Member Role: Orthotic Technician Name: Aniyah Sloan RN Position: [facility] SN RN Member Role: Primary Care Nurse Name: Rosemary Ramon RN Position: [facility] OB RN Member Role: Primary Care Nurse Name: Sneha Newton RN Position: [facility] Hospital Drafter Engineering Member Role: Primary Care Nurse Care Team Related Persons Name: CLAUDIA URBINA Name: RALPH SÁNCHEZ Name: DONY CARCAMO Insurance Providers Guarantor name: FABIENNE URBINA Health Plan Information #: 1 Payer: MEDICARE B Payer Identifier: Member Number: [id number] Group Number: Subscriber Identifier: [id number] Relationship to Subscriber: self Coverage Type: NA Coverage Verification Date: NA Telecom: NA Address: [facility] Information #: 2 Payer: MEDEX SECONDARY ONLY Payer Identifier: Member Number: [id number] Group Number: Subscriber Identifier: [id number] Relationship to Subscriber: self Coverage Type: Medicare Other Coverage Verification Date: NA Telecom: NA Address:
--- NOTE | 2025-01-14 13:29 | MHC.OFFVIS ---
Vital Signs 01/14/25 13:35 Height 5 ft 2 in Weight 173 lb BMI 31.6 BP 136/68 Blood Pressure Location Lt brachial Position Sitting Pulse 75 Pulse Oximetry (%) 96 Oxygen Delivery Method Room Air Intake Visit Reasons: GERD/Diverticulosis follow up Intake Note: Patient follow up for GERD and Diverticulosis. Patient cc: between diarrhea and constipation on and off. Denies any other GI issues. 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 Allergy (Unknown, Uncoded 11/23/24 06:48) Unknown HPI HPI GERD/Diverticulosis follow up: Details: Assessment & Plan (1) Ulcerative colitis: Code(s): K51.90 - Ulcerative colitis, unspecified, without complications (2) GERD (gastroesophageal reflux disease): Code(s): K21.9 - Gastro-esophageal reflux disease without esophagitis Plan She continues to have a poor appetite, no N/V or pain but no interest in eating. I offer to conduct tests such as an EGD, but she declines for now. She also continues to decline a colonoscopy. She continues on her budesinide and imuran and the pantoprazole. She only has had diarrhea when she ate a bunch of peanuts. ROV [address] ABD AND PELVIS 05/27/24 IMPRESSION: * Acute diverticulitis of the left lower quadrant sigmoid colon. No intra-abdominal free air or pericolonic fluid collection. * Large volume fluid is seen in the uterine endometrial canal. Recommend further evaluation with pelvic ultrasound. 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 TODAYS VISIT She has had a very hard time of it! She was hospitalized with pneumonia and was in 4 different rehab facilities. She finally ended up at [facility] and did well there. She is currently wheelchair-bound as her gait has never really recovered after she was deconditioned, but she seek can not seem to be eligible for a electric wheelchair or when the fats in her bathroom. She finds it difficult to transfer from the door of the bathroom to the toilet but so far she seems to be managing. Her sudden tries to help her to home but he isn't much help with her personal care. While her stooling has been controlled she is having episodes of urinary incontinence likely secondary to the diuretics. She also had a subsequent episode of abd pain and presented to the ER and was dx'ed with divertiuclitis via CT. Ofcourse, her UC could also be in the DDX given she was off of her suppression therapy. I was going to start Imuran,but given her decreased GFR and other health challenges will instead stick with budesonide to help protect the colon and minimize systemic steroid effects, She also may have new onset diabetes. Otherwise, since she seems to be stable and having no rectal bleeding or diarrhea will have her come back in 1 year. [facility] Medical History (Updated 01/14/25 @ 16:11 by CRISTIAN Caro) Diverticulitis History of acute respiratory failure Diarrhea History of CHF (congestive heart failure) Constipation Acute proctitis Hemorrhoids Spinal abscess Restless leg syndrome HTN (hypertension) Pre-diabetes DVT (deep venous thrombosis) Colitis Ulcerative colitis Surgical History Hx of shoulder surgery Social History Household Members: Other Household Members Other:: son Housing: House Do you presently have visiting nurse or other home services: Yes Unable to assess alcohol history related to: Unable to respond Alcohol intake: former Patient Tobacco Use Status: Never used Tobacco Advance Directives Date on File: 11/16/22 service: No Current occupational status: retired Review of Systems Const Denies fatigue, Denies fever(s), Denies night sweats, Denies poor appetite and Denies weight loss ENT Reports Normal hearing present, Denies dysphagia, Denies odynophagia, Denies throat swelling and Denies tongue swelling Card Reports leg edema and Reports dyspnea on exertion Resp Reports dyspnea on exertion GI Details: Denies abdominal pain, Denies melena, Denies bloating, Denies hematochezia, Denies constipation, Denies GI cramping, Denies dysphagia, Denies excessive flatus, Denies early satiety, Denies heartburn, Denies diarrhea, Denies nausea, Denies odynophagia, Denies vomiting and Denies hematemesis Reports urinary incontinence Musc Reports abnormal gait and Reports muscle weakness Skin/Breast Denies pruritus, Denies rash, Reports unusual bruising and Denies jaundice Neuro Reports Normal hearing present, Denies Abnormal speech present and Reports abnormal gait Endo Denies fatigue Aller/Immun Denies throat swelling and Denies tongue swelling Physical Exam Vital Signs: Last Vital Signs Pulse 75 01/14/25 13:35 BP 136/68 01/14/25 13:35 Pulse Ox 96 01/14/25 13:35 Oxygen Delivery Method Room Air 01/14/25 13:35 BMI result Body Mass Index 31.6 Const General: cooperative, no acute distress, well developed and well groomed Nutritional Appearance: well nourished and obese Orientation/consciousness: oriented to person, oriented to place and oriented to time Limitations: No language barrier and wheelchair HEENT Head: Yes normocephalic and Yes atraumatic Eyes General: appearance normal, both eyes and all related structures Pupils: Equal, round and reactive pupils present Neck Neck: Yes normal visual inspection and Yes no lymphadenopathy Thyroid: Thyroid normal Resp Effort & Inspection: normal respiratory effort and able to speak in complete sentences Auscultation: clear to auscultation bilaterally Cardio Rate: regular rate Rhythm: regular rhythm Heart sounds: Normal, physiologic split S2 sound present Peripheral pulses: radial pulses present and posterior tibial pulses present GI Inspection: No distended, Yes Abdominal panniculus present and Yes obesity Palpation (GI): Soft to palpation, nontender, no guarding, not rigid and No hepatosplenomegaly present Percussion: Yes normal to percussion Auscultation: normal bowel sounds Rectal Exam - Female: deferred Skin General skin exam: turgor normal, skin not dry, ecchymosis, no jaundice, No spider nevi and no striae Nails: normal Neuro General: oriented to person, oriented to place and oriented to time Cranial nerves: Yes Equal, round and reactive pupils present and Yes Normal hearing present Speech: No Abnormal speech present Extrem General: No clubbing, No cyanosis and Yes edema Psych Appearance: grossly normal and well kempt Mental Status: mental status grossly normal Speech and movement: Normal speech and movement present Affect: normal affect Attitude: cooperative Thought process: Normal thought process present and not confabulating Thought content: Normal thought content present Insight: Good insight present (Psych) Judgement: Good judgement present (Psych) Assessment & Plan Assessment & Plan (1) Ulcerative colitis: Code(s): K51.90 - Ulcerative colitis, unspecified, without complications Category: Medical (2) GERD (gastroesophageal reflux disease): Comment: No longer on pantoprazole after her hospitalization but seems to be asymptomatic Code(s): K21.9 - Gastro-esophageal reflux disease without esophagitis Category: Medical Plan She has had a very hard time of it! She was hospitalized with pneumonia and was in 4 different rehab facilities. She finally ended up at [facility] and did well there. She is currently wheelchair-bound as her gait has never really recovered after she was deconditioned, but she seek can not seem to be eligible for a electric wheelchair or when the fats in her bathroom. She finds it difficult to transfer from the door of the bathroom to the toilet but so far she seems to be managing. Her sudden tries to help her to home but he isn't much help with her personal care. While her stooling has been controlled she is having episodes of urinary incontinence likely secondary to the diuretics. She also had a subsequent episode of abd pain and presented to the ER and was dx'ed with divertiuclitis via CT. Ofcourse, her UC could also be in the DDX given she was off of her suppression therapy. I was going to start Imuran,but given her decreased GFR and other health challenges will instead stick with budesonide to help protect the colon and minimize systemic steroid effects, She also may have new onset diabetes. Otherwise, since she seems to be stable and having no rectal bleeding or diarrhea will have her come back in 1 year. Medications: Refilled budesonide DR-ER 9 mg (3 x 3 mg) PO DAILY 270 caps 3RF K51.90 - Ulcerative colitis, unspecified, without complications budesonide DR-ER 9 mg (3 x 3 mg) PO DAILY 270 caps 3RF K51.90 - Ulcerative colitis, unspecified, without complications Discontinued azathioprine Discontinued Reason: Doctor's Order 50 mg PO BID 180 tabs 2RF Coding Level of Care Code Est Pt Level 3 (86318) Diagnoses Ulcerative colitis K51.90 GERD (gastroesophageal reflux disease) K21.9
[2025-01-14 13:35] VITALS: BP 136/68; PULSE 75; O2SAT 96; BMI 31.6
== END 2025-01-14 14:17 | disposition home or self-care (01) ==
LOC: HO.HGI 13:20
PROVIDERS: PCP Family Medicine; Visit Provider Nurse Practitioner
DX: K51.90 Ulcerative colitis, unspecified, without complications (principal); K21.9 Gastro-esophageal reflux disease without esophagitis
CPT/HCPCS: 99213

== ENCOUNTER → 2025-01-14 13:19 | Outpatient (BNVA) | payer MEDICARE, SELFPAY | PROVIDERS: PCP Family Medicine; Visit Provider Nurse Practitioner | DX: K21.9 Gastro-esophageal reflux disease without esophagitis (principal); K51.90 Ulcerative colitis, unspecified, without complications | CPT/HCPCS: 99212 ==

== ENCOUNTER 2025-01-15 11:38 | Emergency (ER) | payer MEDICARE, SELFPAY ==
--- NOTE | ~2025-01-15 | CT_ITS ---
EXAMINATION: CT HEAD WITHOUT CONTRAST CLINICAL INFORMATION: Follicle head trauma, medical anticoagulation COMPARISON: December 09, 2023 TECHNIQUE: Contiguous axial imaging was performed from the skull base to vertex without intravenous administration of contrast. This CT examination was performed using dose optimization techniques as appropriate, variously including the following: *Automated exposure control *Adjustment of mA and/or kV according to patient size (this includes techniques or standardized protocols for targeted exams where dose is matched to indication/reason for exam; i.e. extremities or head) *Use of iterative reconstruction technique DLP: 1186 mGY*cm FINDINGS: Scalp hematoma is present over the left frontal bone. There is no acute ischemic change. Periventricular and deep white matter hypodensities are again noted. There is mild generalized atrophy. There is no intracranial hemorrhage. There is no mass-effect or midline shift. Basal cisterns and ventricles are within normal limits for age/cerebral volume. Orbits are symmetrical and unremarkable. Mucous retention cyst is present in the floor the right maxillary sinus. There is also partial opacification of the left sphenoid sinus, chronic. There are no bony abnormalities. CT/CT head/brain wo IV con IMPRESSION: No acute intracranial abnormality. Acute left frontal scalp hematoma. Mild generalized atrophy and chronic small vessel ischemic disease. Mild chronic right maxillary and left sphenoid sinus disease. Electronically signed by: Gregory Carroll MD 01/15/2025 01:32 PM EDT
--- NOTE | ~2025-01-15 | XR_ITS ---
EXAMINATION: XR KNEE, LEFT CLINICAL INFORMATION: fall, extensive wound COMPARISON: February 08, 2024 TECHNIQUE: AP lateral and bilateral oblique views lower extremity joint , x-rays of the left knee. FINDINGS: Soft tissue swelling and gas is seen anterior extending from the level the lower pole patella the proximal lower leg most pronounced medially. However, there is soft tissue gas No joint effusion is evident. No intra-articular gas is identified. Small marginal osteophytes are present involving the 3 joint compartments. There is moderate atherosclerotic desiccation in the femoral and popliteal artery. XR/XR knee LT 4V IMPRESSION: Soft tissue swelling and gas/air. Mild osteoarthritis. Electronically signed by: Gregory Carroll MD 01/15/2025 01:24 PM EDT
--- NOTE | ~2025-01-15 | CT_ITS ---
EXAMINATION: CT CERVICAL SPINE WITHOUT CONTRAST CLINICAL INFORMATION: Fall with head strike, on blood thinners. Neck pain. COMPARISON: None available. TECHNIQUE: Spiral CT imaging of the cervical spine performed in axial plane without contrast. Multiplanar reformatted images were constructed from the axial data set. This CT examination was performed using dose optimization techniques as appropriate, variously including the following: *Automated exposure control *Adjustment of mA and/or kV according to patient size (this includes techniques or standardized protocols for targeted exams where dose is matched to indication/reason for exam; i.e. extremities or head) *Use of iterative reconstruction technique FINDINGS: CORONAL ALIGNMENT: -Normal. SAGITTAL ALIGNMENT: -Minimal reversal of the normal lordosis centered at C5. -3 mm degenerative appearing anterolisthesis of C3 on C4. Alignment is otherwise anatomic. C1-C2 AND CRANIOCERVICAL JUNCTION: -Intact and normally aligned. VERTEBRAL BODIES AND FACETS: -No fractures, compression deformities, or suspicious bone lesions. -No traumatic subluxation is evident. -Facets are normally aligned bilaterally, with mild to moderate central degenerative changes. DISCS: -Severe disc degeneration present C5-6, C6-7, with moderate changes at C4-5 and C7-T1. -Mild disc degeneration present C3-4. CENTRAL CANAL: -No evidence of high-grade central canal narrowing or large disc herniation allowing for modality limitations. PREVERTEBRAL AND PARAVERTEBRAL SOFT TISSUES: -No prevertebral or paravertebral soft tissue edema or abnormal fluid collection. -Retropharyngeal course of the bilateral carotid arteries. Moderate calcific atheromatous changes of the carotid bulbs left greater than right. -Normal thyroid. LUNG APICES: -Mosaic attenuation secondary to hypoventilatory changes. No evidence of pneumothorax. OTHER: Moderate to severe degenerative changes right greater than left TM joints. CT/CT cervical spine wo IV con IMPRESSION: 1. No CT evidence of acute cervical spine fracture or injury. 2. Moderate degenerative spondylosis. Electronically signed by: Gaetano Rangel MD 01/15/2025 01:29 PM EDT
--- NOTE | ~2025-01-15 | XR_ITS ---
EXAMINATION: XR KNEE, RIGHT CLINICAL INFORMATION: fall from wheelchair COMPARISON: None available. TECHNIQUE: Four views of the right knee. FINDINGS: There is no joint effusion. Subtle tibial plateau marginal osteophytes are visible. Small calcific density is present along the medial aspect of the medial tibial spine. No fracture line is visible. Moderate atherosclerotic arterial calcifications are present. XR/XR knee RT 4V IMPRESSION: Small calcific density medial to the medial tibial spine is probably chronic, but a minimal avulsion related to the ACL footprint is not ruled out. Electronically signed by: Gregory Carroll MD 01/15/2025 01:26 PM EDT
[2025-01-15 11:44] VITALS: BP 156/75; PULSE 85; RESP 14; TEMP 36.3; O2SAT 95; BMI 27.7
--- NOTE | 2025-01-15 11:47 | ED.GENADULT ---
HPI - General Adult General Chief complaint: Fall Stated complaint: fall, +BT, hematoma to head, b/l knee skin tears Source: patient, EMS, RN notes reviewed and old records reviewed Mode of arrival: EMS Limitations: no limitations History of Present Illness ED Provider: Billy HPI narrative: Patient is a an 84-year-old female with history of CAD, unstable angina, chronic anticoagulation with Eliquis, HTN, HLD, T2DM presenting to the emergency department with head injury, significant injuries to bilateral knees after a fall from her wheelchair prior to arrival. 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 She states her son was home at the time, denies loss of consciousness. She states that her son called 911. Complains of severe left knee pain, mild headache, denies blurred vision, double vision or other visual changes. Denies chest pain or shortness of breath. States she was not dizzy or lightheaded prior to fall. MD complaint: Head injury, knee injury Related Data Home Medications ?Medication ?Instructions ?Recorded ?Confirmed apixaban 5 mg tablet (Eliquis) 5 mg PO BID 12/02/20 11/23/24 atorvastatin 40 mg tablet 1 tab PO BEDTIME 05/11/21 11/23/24 duloxetine 20 mg capsule,delayed 20 mg PO BEDTIME 02/09/24 11/23/24 release nitroglycerin 0.4 mg sublingual 0.4 mg sublingual Q5M PRN Chest 02/09/24 11/23/24 tablet Pain metoprolol succinate 25 mg 25 mg PO DAILY 05/28/24 11/23/24 tablet,extended release 24 hr spironolactone 25 mg tablet 25 mg PO BID 05/28/24 11/23/24 dapagliflozin propanediol 10 mg 10 mg PO DAILY 11/13/24 11/23/24 tablet (Farxiga) amoxicillin 500 mg capsule 500 mg PO TID 11/23/24 11/23/24 furosemide 20 mg tablet 20 mg PO DAILY 11/23/24 11/23/24 gabapentin 300 mg capsule 300 mg PO BID 11/23/24 11/23/24 isosorbide mononitrate 30 mg 30 mg PO BID 11/23/24 11/23/24 tablet,extended release 24 hr ropinirole 0.5 mg tablet 0.5 mg PO QID 11/23/24 11/23/24 Previous Rx's ?Medication ?Instructions ?Recorded blood pressure test kit-wrist #1 ea 11/13/24 budesonide 3 mg 9 mg (3 x 3 mg) PO DAILY #270 caps 01/14/25 capsule,delayed,extended release Allergies Allergy/AdvReac Type Severity Reaction Status Date / Time barium Allergy Unknown Hives Uncoded 01/15/25 11:54 dogs, cats etc.. Allergy Unknown Unknown Uncoded 01/15/25 11:54 Review of Systems Review of Systems: Yes all other systems are reviewed and are negative Constitutional: Constitutional: Reports as per [facility] Past Medical History Medical History (Updated 01/15/25 @ 14:05 by Abigail Cervantes NP) Diverticulitis History of acute respiratory failure Diarrhea History of CHF (congestive heart failure) Constipation Acute proctitis Hemorrhoids Spinal abscess Restless leg syndrome HTN (hypertension) Pre-diabetes DVT (deep venous thrombosis) Colitis Ulcerative colitis Surgical History Hx of shoulder surgery Social History Social History Household Members: Other Household Members Other:: son Housing: House Do you presently have visiting nurse or other home services: Yes Unable to assess alcohol history related to: Unable to respond Alcohol intake: former Patient Tobacco Use Status: Never used Tobacco Advance Directives: Yes Advance Directives on File: Yes Advance Directives Date on File: 11/16/22 Do you have a plan to hurt others: No Plan service: No Current occupational status: retired Physical Exam ED Vital Signs: Vital Signs - 24 hr 01/15/25 11:44 01/15/25 14:15 Temperature 97.4 F Pulse Rate 85 68 Respiratory Rate 14 12 Blood Pressure 156/75 H 124/54 L Pulse Oximetry 95 97 Oxygen Delivery Method Room Air Room Air BMI result Body Mass Index 27.7 Vital signs have been reviewed and appear to be correct. Blood pressure normal. Heart rate normal. Respiratory rate normal. Temperature normal. Oxygen saturation normal. Const General: cooperative, alert, awake and in distress (severe pain) Nutritional Appearance: obese Orientation/consciousness: oriented to person, oriented to place, oriented to time and patient oriented x3 Limitations: no limitations HENMT Head: Yes normocephalic and Yes hematoma Head images:  1. hematoma Ears: external ears normal, TM normal on the right and EAC's normal General nose exam: Normal external nose present, Normal nasal mucous membranes and turbinates present and Normal septum present Face and sinus: Yes face symmetric Mouth: oropharynx normal and moist mucous membranes Throat: Yes uvula midline Eyes Pupils: Equal, round and reactive pupils present Neck Neck: Yes normal visual inspection and Yes supple Resp Effort & Inspection: normal respiratory effort and able to speak in complete sentences Auscultation: clear to auscultation bilaterally Cardio Rate: regular rate Rhythm: regular rhythm Heart sounds: S1 normal heart sound present and S2 normal heart sound present GI Palpation (GI): Soft to palpation and nontender Auscultation: normoactive bowel sounds General: Yes no CVA tenderness Back/Spine/Pelvis Back: no CVA tenderness Skin General skin exam: elasticity normal and turgor normal Neuro General: oriented to person, oriented to place, oriented to time, patient oriented x3, moves all extremities, no focal motor deficits and CN's II-XI intact bilaterally Cranial nerves: Yes Equal, round and reactive pupils present Cognition (Neuro): normal cognition Extrem Other: General: Yes full ROM, Yes no pedal edema and Yes no calf tenderness Right lower extremity: knee Details: normal ROM and other (skin tear to anterior knee with blood oozing) Left lower extremity: knee Details: normal ROM and other (significant skin tear/soft tissue injury to anterior knee with visible subcutaneous tissue, see photo, mild bleeding) Psych Mental Status: mental status grossly normal Affect: normal affect Thought process: Normal thought process present Course Reevaluation(s) Reevaluation #1: No call back from [facility] yet, will have litigation legal secretary call again. Time: 15:45 Reevaluation #2: Case discussed with Dr. Serene Matt, attending MD [facility] ED who accepts patient as ED to ED transfer. Time: 16:27 Medications Administered Discontinued Medications Generic Name Dose Route Start Last Admin Trade Name Freq PRN Reason Stop Dose Admin Diphtheria/Tetanus/Acell Pertussis 0.5 ml 01/15/25 11:55 01/15/25 12:03 Diphth,Pertus(Acell),Tet Adult 0.5 Ml Syringe IM 01/15/25 11:56 0.5 ml .ONCE ONE Administration Hydromorphone HCl 0.5 mg 01/15/25 14:54 01/15/25 14:59 Hydromorphone Hcl 0.5 Mg/0.5 Ml Syringe IVPUSH 01/15/25 14:55 0.5 mg ONCE ONE Administration Protocol Cefazolin Sodium/Dextrose 2 gm in 50 mls @ 100 mls/hr 01/15/25 12:09 01/15/25 13:39 Ancef IV 01/15/25 12:38 Infused ONCE ONE Infusion Morphine Sulfate 4 mg 01/15/25 11:53 01/15/25 12:03 Morphine Sulfate 4 Mg/Ml Cartridge IVPUSH 01/15/25 11:54 4 mg ONCE ONE Administration Protocol Morphine Sulfate 4 mg 01/15/25 14:01 01/15/25 14:11 Morphine Sulfate 4 Mg/Ml Cartridge IVPUSH 01/15/25 14:02 4 mg ONCE ONE Administration Protocol Ondansetron HCl 4 mg 01/15/25 11:53 01/15/25 12:03 Ondansetron Hcl 4 Mg/2 Ml Vial IVPUSH 01/15/25 11:54 4 mg ONCE ONE Administration Medical Decision Making Medical Decision Making MDM Narrative: Patient is a an 84-year-old female with history of CAD, unstable angina, chronic anticoagulation with Eliquis, HTN, HLD, T2DM presenting to the emergency department with head injury, significant injuries to bilateral knees after a fall from her wheelchair prior to arrival. On exam patient is awake, A+Ox3, VS WNL, afebrile, normal neurological exam without focal deficits, physical exam findings as above. Given reported symptoms and physical exam findings, initial differential includes but is not limited to ICH, skull or cervical vertebral fracture or subluxation, knee fractures, significant soft tissue injury left knee. Labs notable for mild leukocytosis and anemia, hyperglycemia without anion gap. CT head and c-spine notable for evidence of ICH, skull or cervical vertebral fracture subluxation. No acute fracture bilateral knees. My interpretation is in agreement with the radiologist's interpretation. Case discussed with Dr. Le from orthopedics regarding left knee injury. He states this patient needs to be transferred for repair by plastics. 2g Ancef given. Patient medicated with morpine for pain. Call out to [facility] to discuss transfer at 13:52. Differential Diagnosis Differential Diagnoses: The differential diagnosis associated with the presentation includes As per [facility] Admission/Observation Consideration of admission/observation: Escalation of care including admission/observation considered Patient would have been admitted to the hospital had their work up had any findings where hospital admission was appropriate and their clinical presentation warranted hospital admission. Consult Healthcare Provider Management of the patient was discussed with: Branch Service Associate (Dr. Le) Lab Data [facility] Lab Attestation statement: I reviewed the patient's lab results. 01/15/25 12:28 01/15/25 12:28 Labs: Lab Results 01/15/25 Range/Units 12:28 WBC 11.2 H (4.8-10.8) X10*3/uL RBC 3.99 L (4.20-5.50) X10*6/uL Hgb 10.7 L (12.0-16.0) g/dl Hct 33.7 L (37.0-47.0) % MCV 84.5 (80.0-98.0) fL MCH 26.8 L (27.0-33.0) pg MCHC 31.8 (31.0-35.0) g/dl RDW 18.6 H (11.0-16.0) % Plt Count 327 (160-400) X10*3/uL MPV 9.2 L (9.4-12.3) fL Immature Gran % (Auto) 0.8 H (0.0-0.4) % Neut % (Auto) 87.0 H (45-73) % Lymph % (Auto) 5.5 L (20-40) % [place] % (Auto) 6.0 (2-11) % Eos % (Auto) 0.3 (0-4) % Baso % (Auto) 0.4 (0-2) % Lymph # (Auto) 0.6 L (1.2-4.9) X10*3/uL [place] # (Auto) 0.7 (0.1-1.2) X10*3/uL Eos # (Auto) 0.0 (0.0-0.4) X10*3/uL Baso # (Auto) 0.0 (0.0-0.2) X10*3/uL Abs Immat Gran (auto) 0.09 H (0.00-0.03) X10*3/uL Absolute Neuts (auto) 9.7 H (2.0-8.3) x10*3/uL Absolute Nucleated RBC 0.000 (0.0-0.012) X10*3/uL Nucleated RBC % (auto) 0.0 (0.0-0.2) /100WBC PT 14.9 H (10.9-12.4) SEC INR 1.3 H (0.9-1.1) Sodium 135 (135-145) mmol/L Potassium 4.3 (3.3-5.1) mmol/L Chloride 100 (96-108) mmol/L Carbon Dioxide 25 (22-29) mmol/L Anion Gap 14 (12-20) BUN 29 H (9-16) mg/dL Creatinine 1.13 (0.5-1.4) mg/dL Estim Creat Clear Calc 37.0 Estimated GFR 46 Random Glucose 376 H* (60-115) mg/dL Calcium 9.1 (8.4-10.2) mg/dL Total Bilirubin 0.7 (0.0-1.0) mg/dL AST 22 (5-31) U/L ALT 15 (0-31) U/L Alkaline Phosphatase 74 (39-117) U/L Total Protein 6.4 L (6.5-8.0) g/dL Albumin 3.6 (3.5-5.0) g/dL Independent Interpretation I performed an independent interpretation of an: Plain X-Ray and CT Scan Interpretation: CT head and c-spine notable for evidence of ICH, skull or cervical vertebral fracture subluxation. No acute fracture bilateral knees. Radiology Impression Discussion of test interpretation with radiology: I have reviewed the radiologist's reading. Radiologist Impression: XR/XR knee LT 4V IMPRESSION: Soft tissue swelling and gas/air. Mild osteoarthritis. XR/XR knee RT 4V IMPRESSION: Small calcific density medial to the medial tibial spine is probably chronic, but a minimal avulsion related to the ACL footprint is not ruled out. CT/CT head/brain wo IV con IMPRESSION: No acute intracranial abnormality. Acute left frontal scalp hematoma. Mild generalized atrophy and chronic small vessel ischemic disease. Mild chronic right maxillary and left sphenoid sinus disease. CT/CT cervical spine wo IV con IMPRESSION: 1. No CT evidence of acute cervical spine fracture or injury. 2. Moderate degenerative spondylosis. External Record Review External record reviewed: Inpatient record, Office record and Outpatient record Critical Care Time Critical Care Time Critical Care Time: Yes Total Critical Care Time: 55 Attestation: I have personally provided critical care time exclusive of time spent on separately billable procedures. Time includes review of lab data, radiology results, discussion with consultants, and monitoring for potential decompensation. Intervention performed as documented. Discharge Plan Discharge Clinical Impression: Soft tissue injury of left knee Qualifiers: Encounter type: initial encounter Qualified Code(s): S89.92XA - Unspecified injury of left lower leg, initial encounter Contusion of head Qualifiers: Encounter type: initial encounter Contusion of head detail: other part of head Qualified Code(s): S00.83XA - Contusion of other part of head, initial encounter Skin tear of right lower leg without complication Qualifiers: Encounter type: initial encounter Qualified Code(s): S81.811A - Laceration without foreign body, right lower leg, initial encounter Patient Disposition: [facility] Prescriptions: No Action atorvastatin 40 mg tablet 1 tab PO BEDTIME duloxetine 20 mg Capsule,Delayed Release(Dr/Ec) 20 mg PO BEDTIME nitroglycerin 0.4 mg Tablet, Sublingual 0.4 mg SUBLINGUAL Q5M PRN (Reason: Chest Pain) Rx Instructions: do not exceed 3 doses per episode spironolactone 25 mg tablet 25 mg PO BID metoprolol succinate 25 mg tablet extended release 24 hr 25 mg PO DAILY amoxicillin 500 mg capsule 500 mg PO TID furosemide 20 mg tablet 20 mg PO DAILY gabapentin 300 mg capsule 300 mg PO BID isosorbide mononitrate 30 mg tablet extended release 24 hr 30 mg PO BID ropinirole 0.5 mg tablet 0.5 mg PO QID Eliquis 5 mg tablet 5 mg PO BID dapagliflozin propanediol [Farxiga] 10 mg tablet 10 mg PO DAILY (DME) blood pressure test kit-wrist Kit See Rx Instructions .Route Qty: 1 0RF Rx Instructions: As directed budesonide 3 mg capsule,delayed,extend.release 9 mg PO DAILY Qty: 270 3RF Print Language: [place]
[2025-01-15] MEDS: Diphth,Pertus(ACell),Tet Adult 0.5 ML SYRINGE IM (12:03)
[2025-01-15] MEDS: Morphine Sulfate 4 MG/ML CARTRIDGE IVPUSH ×2 (12:03→14:11)
[2025-01-15] MEDS: ondansetron HCL 4 MG/2 ML VIAL IVPUSH (12:03)
--- NOTE | 2025-01-15 12:15 | PC.NURSE ---
patient presented to the ED from home, lives with her son. patient was reaching for a shoe when she fell forward out of her wheelchair striking her head and bilat knees. patient noted to have large hematoma above left eye. patient right knee noted to have significant skin tear bleeding controlled. patient has significant, tear to left knee, dressing applied x2 to control bleeding. patient denies any headpain / headache, states she has 9/10 pain in her knees. patient medicated per MAR, family at bedside given update. patient is alert and oriented x3, pupils are reactive and equal bilat
[2025-01-15 12:32] LABS: MANUAL DIFF FLAG NO
[2025-01-15 12:35] LABS: Basophils Percent Auto 0.4 % (0-2); Eosinophils Percent Auto 0.3 % (0-4); Hematocrit 33.7 % (37.0-47.0); Hemoglobin 10.7 g/dl (12.0-16.0); Imm Gran Abs Auto 0.09 X10*3/uL (0.00-0.03); Imm Gran Pct Auto 0.8 % (0.0-0.4); Lymphocytes Absolute Auto 0.6 X10*3/uL (1.2-4.9); Lymphocytes Percent Auto 5.5 % (20-40); Mean Corpuscular HGB Conc 31.8 g/dl (31.0-35.0); Mean Corpuscular Hemoglobin 26.8 pg (27.0-33.0); Mean Corpuscular Volume 84.5 fL (80.0-98.0); Mean Platelet Volume 9.2 fL (9.4-12.3); Monocytes Absolute Auto 0.7 X10*3/uL (0.1-1.2); Neutrophils Absolute Auto 9.7 x10*3/uL (2.0-8.3); Platelet Count 327 X10*3/uL (160-400); Red Blood Count 3.99 X10*6/uL (4.20-5.50); Red Cell Distribution Width 18.6 % (11.0-16.0); White Blood Count 11.2 X10*3/uL (4.8-10.8)
[2025-01-15 12:39] LABS: INTERNATIONAL NORM RATIO 1.3 (0.9-1.1); Prothrombin Time 14.9 SEC (10.9-12.4)
[2025-01-15] MEDS: ceFAZolin Sodium/Dextrose,Iso 2 GM/50 ML PIGGYBACK IV (12:40)
--- NOTE | 2025-01-15 12:41 | PC.NURSE ---
left knee bleeding appears to be controlled at this time.
[2025-01-15 12:52] LABS: Alanine Aminotransferase 15 U/L (0-31); Albumin Level 3.6 g/dL (3.5-5.0); Alkaline Phosphatase 74 U/L (39-117); Anion Gap 14 (12-20); Aspartate Amino Transferase 22 U/L (5-31); Bilirubin Total 0.7 mg/dL (0.0-1.0); Blood Urea Nitrogen 29 mg/dL (9-16); Calcium 9.1 mg/dL (8.4-10.2); Carbon Dioxide 25 mmol/L (22-29); Chloride 100 mmol/L (96-108); Estimated Glomerular Filt Rate 46; Glucose Random 376 mg/dL (60-115); Potassium 4.3 mmol/L (3.3-5.1); Sodium 135 mmol/L (135-145); Total Protein 6.4 g/dL (6.5-8.0)
[2025-01-15 14:15] VITALS: BP 124/54; PULSE 68; RESP 12; O2SAT 97
--- NOTE | 2025-01-15 14:45 | PC.NURSE ---
wound care completed on right knee, wet to dry dressing placed on skin tear and wrapped with kerlex. patient lac on left forhead cleaned up and wrapped with 2x2 placed.
[2025-01-15] MEDS: HYDROmorphone HCl 0.5 MG/0.5 ML SYRINGE IVPUSH (14:59)
--- NOTE | 2025-01-15 15:21 | PC.NURSE ---
patient medicated per SEP for pain 05/01 with dalaudid. patient noted to desat to the 80s, placed on 2l NC. patient ultimately placed on non rebreather, sat came up to 97%. patient placed on 2l NC for additional support after non rebreather removed, maintaining o2 sat at 96% with 2l
[2025-01-15 16:52] VITALS: BP 127/61; PULSE 69; RESP 16; TEMP 36.3; O2SAT 100
--- NOTE | 2025-01-15 17:03 | PC.NURSE ---
report given to Mj VERNON flow nurse at [facility]
== END 2025-01-15 18:00 | disposition short-term general hospital (02) ==
PROVIDERS: Registered Nurse Emergency; Emergency Provider Emergency Medicine; PCP Family Medicine
DX: S81.811A Laceration without foreign body, right lower leg, initial encounter (principal); S81.812A Laceration without foreign body, left lower leg, initial encounter; S00.83XA Contusion of other part of head, initial encounter; R51.9 Headache, unspecified; M54.2 Cervicalgia; M25.562 Pain in left knee; E11.9 Type 2 diabetes mellitus without complications; R06.02 Shortness of breath; M25.561 Pain in right knee; I25.10 Atherosclerotic heart disease of native coronary artery without angina pectoris; W05.0XXA Fall from non-moving wheelchair, initial encounter; Y93.9 Activity, unspecified; Y92.9 Unspecified place or not applicable; Y99.8 Other external cause status; Z79.899 Other long term (current) drug therapy; Z79.01 Long term (current) use of anticoagulants; Z91.81 History of falling
CPT/HCPCS: 36415; 70450; 72125; 73564; 80053; 85025; 85610; 90471; 90715; 96365; 96375; 96376; 99284; 99285; J0690; J1171; J2270; J2405

== ENCOUNTER → 2025-01-15 11:48 | Outpatient (BNV) | payer MEDICARE, SELFPAY | PROVIDERS: Emergency Provider Emergency Medicine; PCP Family Medicine; Visit Provider Radiology Diagnostic Radiology | DX: M50.322 Other cervical disc degeneration at C5-C6 level (principal); S00.03XA Contusion of scalp, initial encounter; M25.462 Effusion, left knee; M65.261 Calcific tendinitis, right lower leg | CPT/HCPCS: 72125 ==

== ENCOUNTER 2025-05-12 09:49 | Inpatient (IN) | payer MEDICARE, SELFPAY ==
[2025-05-12] VITALS (8 sets, daily range): BP systolic 97–123; BP diastolic 37–54; PULSE 68–85; RESP 14–18; TEMP 36.3–36.6; O2SAT 93–98; BMI 28.9
--- NOTE | ~2025-05-12 | XR_ITS ---
EXAMINATION: XR CHEST CLINICAL INFORMATION: sob COMPARISON: August 15, 2024. TECHNIQUE: Frontal view of the chest was obtained. FINDINGS: Pulmonary reticular pattern. Poor inspiration. Prominence of the interstitial markings with indistinct margins in the perihilar regions and the cardiomediastinal silhouette. Blunting of the left costophrenic angle. Cardiomediastinal silhouette size is normal and located on the left hemithorax due to patient's positioning. Multilevel thoracolumbar spondylosis. Prior osteotomy, right clavicle. Vascular clips right upper quadrant abdomen likely prior cholecystectomy. XR/XR chest 1V IMPRESSION: Pulmonary edema and likely small volume left-sided pleural effusion. Electronically signed by: Live Kaplan MD 05/12/2025 10:30 AM EDT
--- NOTE | 2025-05-12 10:00 | ECG_ITS ---
Test Reason : SOB Blood Pressure : */* mmHG Vent. Rate : 76 BPM Atrial Rate : 76 BPM P-R Int : 230 ms QRS Dur : 108 ms QT Int : 426 ms P-R-T Axes : 35 -32 29 degrees QTcB Int : 479 ms Sinus rhythm with 1st degree A-V block Left axis deviation Moderate voltage criteria for LVH, may be normal variant ( R in aVL , [place] product ) Cannot rule out Anterior infarct , age undetermined Abnormal ECG When compared with ECG of 15-Aug-2024 15:43, NC interval has increased Nonspecific T wave abnormality now evident in Anterior leads Referred By: Vanessa Musa Electronically Signed By: JESSICA SANDOVAL MD
--- NOTE | 2025-05-12 10:01 | ED.SOB ---
HPI - SOB/Dyspnea General Chief Complaint: Dyspnea Stated Complaint: HYPOXIA 80% 9P,SOB 96% 2LPM FROM SN PER EMS Time Seen by Provider: 05/12/25 10:00 Source: patient and EMS Mode of arrival: EMS Limitations: no limitations History of Present Illness ED Provider: DR. Musa HPI Narrative: 85-year-old female PMHx significant for CHF, HTN, DVT on Eliquis, and ulcerative colitis patient normally is bed/wheelchair bound, patient presented today for 1 day history of difficulty breathing and found to be hypoxic at the [facility] of O2 sat in the ED he is, patient is still complaining of shortness of breath, no fever, no chills, no coughing, patient with history of mild COPD no use of supplemental oxygen at her baseline. No orthopnea, no PND, no lower extremity swelling or edema. Patient at [facility] was started on Bactrim for UTI. Related Data Home Medications ?Medication ?Instructions ?Recorded ?Confirmed apixaban 5 mg tablet (Eliquis) 5 mg PO BID 12/02/20 11/23/24 atorvastatin 40 mg tablet 1 tab PO BEDTIME 05/11/21 11/23/24 duloxetine 20 mg capsule,delayed 20 mg PO BEDTIME 02/09/24 11/23/24 release nitroglycerin 0.4 mg sublingual 0.4 mg sublingual Q5M PRN Chest 02/09/24 11/23/24 tablet Pain metoprolol succinate 25 mg 25 mg PO DAILY 05/28/24 11/23/24 tablet,extended release 24 hr spironolactone 25 mg tablet 25 mg PO BID 05/28/24 11/23/24 dapagliflozin propanediol 10 mg 10 mg PO DAILY 11/13/24 11/23/24 tablet (Farxiga) amoxicillin 500 mg capsule 500 mg PO TID 11/23/24 11/23/24 furosemide 20 mg tablet 20 mg PO DAILY 11/23/24 11/23/24 gabapentin 300 mg capsule 300 mg PO BID 11/23/24 11/23/24 isosorbide mononitrate 30 mg 30 mg PO BID 11/23/24 11/23/24 tablet,extended release 24 hr ropinirole 0.5 mg tablet 0.5 mg PO QID 11/23/24 11/23/24 Previous Rx's ?Medication ?Instructions ?Recorded blood pressure test kit-wrist #1 ea 11/13/24 budesonide 3 mg 9 mg (3 x 3 mg) PO DAILY #270 caps 01/14/25 capsule,delayed,extended release Allergies Allergy/AdvReac Type Severity Reaction Status Date / Time barium Allergy Unknown Hives Uncoded 05/12/25 10:15 dogs, cats etc.. Allergy Unknown Unknown Uncoded 05/12/25 10:15 Review of Systems Review of Systems: All other systems are reviewed and are negative Constitutional: Reports as per HPI and Reports no additional constitutional complaints Eyes: Reports as per HPI and Reports no additional eye complaints Reports system reviewed and no additional complaints, except as documented Cardiovascular: Reports as per HPI and Reports no additional cardiovascular complaints Respiratory: Reports as per HPI and Reports no additional respiratory complaints Gastrointestinal: Reports as per HPI and Reports no additional gastrointestinal complaints Genitourinary: Reports no additional female genitourinary complaints Musculoskeletal: Reports no additional musculoskeletal complaints Skin/Breast: Reports system reviewed and no additional complaints, except as docu Psychiatric: Reports no additional psychiatric complaints Endocrine: Reports no additional endocrine complaints Hematologic/Lymphatic: Reports no additional hematologic/lymphatic complaints Allergic/Immunologic: Reports no additional allergic/immunologic complaints Reports system reviewed and no additional complaints, except as documented and Reports Abnormal speech present [facility] Past Medical History Medical History Diverticulitis History of acute respiratory failure Diarrhea History of CHF (congestive heart failure) Constipation Acute proctitis Hemorrhoids Spinal abscess Restless leg syndrome HTN (hypertension) Pre-diabetes DVT (deep venous thrombosis) Colitis Ulcerative colitis Surgical History Hx of shoulder surgery Social History Social History Household Members: Other Household Members Other:: son Housing: House Do you presently have visiting nurse or other home services: Yes Alcohol intake: former Patient Tobacco Use Status: Never used Tobacco Advance Directives: Yes Advance Directives on File: Yes Advance Directives Date on File: 11/16/22 service: No Current occupational status: retired Physical Exam Vital Signs: Vital Signs: Last Vital Signs Temp 97.4 F 05/12/25 11:41 Pulse 76 05/12/25 11:41 Resp 16 05/12/25 11:41 BP 105/45 L 05/12/25 11:41 Pulse Ox 97 05/12/25 11:41 O2 Del Method Nasal Cannula 05/12/25 11:41 O2 Flow Rate 2 05/12/25 11:41 BMI result Body Mass Index 28.9 Vital signs have been reviewed and appear to be correct. Blood pressure elevated. Heart rate normal. Respiratory rate normal. Temperature normal. Oxygen saturation normal. Appearance: Alert. Oriented X3. No acute distress. Head: Normal external exam. Normocephalic. Atraumatic. No [place] signs noted. No raccoon eyes noted Eyes: PERRLA. EOMI. Conjunctiva and sclera normal. Eyelids normal. ENT: TM's Normal. Pharynx normal. Uvula midline. Moist mucous membranes. No trismus noted. No drooling noted. No muffled voice noted. Neck: Normal inspection. Neck supple. FROM. No adenopathy. Thyroid Normal. No meningeal signs. No neck mass noted. CVS: Normal heart rate and rhythm. Heart sound normal. No murmurs noted. Pulses normal throughout. Respiratory: No respiratory distress. Painless inspiration. Reduced breathing sounds bilaterally, bilateral basal rales to both lung rodarte. No accessory muscle usage noted or decreased air movement noted. Abdomen: Soft and nontender. Bowel sounds normal in all 4 quadrants. No distention noted. No organomegaly noted. No visible injury noted. Back: No CVA tenderness. Full range of motion noted. Skin: Skin warm and dry. Normal skin color. Normal skin turgor. No rashes/lesions/lacerations noted. Extremities: +2 bilateral lower extremity edema. Extremities exhibit normal range of motion. Extremities nontender. Neuro: Oriented X 3. Cranial nerve exam: II-XII are grossly intact No motor deficit. No sensory deficit. Reflexes normal. Course Reevaluation(s) Reevaluation #1: 1. Hemoglobin declined to units from 01/15/2025 patient declined any bloody bowel movements, declines bleeding from any other source. Patient's stool is negative for today. 2. Hypoxic with CHF exacerbation continue with 2 L of nasal cannula, diuresis. 3. As per patient and family blood pressure is sensitive to Lasix. 4. Hypokalemia will replete in the ED. 5. UTI with no sepsis will start on ceftriaxone in the ED. Time: 11:57 Medications Administered Generic Name Dose Route Start Last Admin Trade Name Freq PRN Reason Stop Dose Admin Potassium Chloride 10 meq in 100 mls @ 100 mls/hr 05/12/25 11:36 05/12/25 12:00 Potassium Chloride/H20 IV 05/12/25 12:35 100 mls/hr ONCE ONE Administration Discontinued Medications Generic Name Dose Route Start Last Admin Trade Name Freq PRN Reason Stop Dose Admin Albuterol Sulfate 2.5 mg 05/12/25 10:16 05/12/25 10:23 Albuterol Sulfate (0.083%) 2.5 Mg/3 Ml Vial.Neb INHALE 05/12/25 10:17 2.5 mg ONCE ONE Administration Furosemide 60 mg 05/12/25 10:05 05/12/25 10:40 Furosemide 100 Mg/10 Ml Vial IVPUSH 05/12/25 10:06 60 mg ONCE ONE Administration Protocol Potassium Chloride 40 meq 05/12/25 11:37 05/12/25 11:55 Potassium Chloride Packet 20 Meq Packet PO 05/12/25 11:38 40 meq ONCE ONE Administration Medical Decision Making Differential Diagnosis Differential Diagnoses: The differential diagnosis associated with the presentation includes (COPD exacerbation, CHF exacerbation, electrolyte derangement, pneumonia, pneumothorax, pleural effusion.) Admission/Observation Consideration of admission/observation: Escalation of care including admission/observation considered Consult Healthcare Provider Management of the patient was discussed with: Hospitalist (Dr. Kyra Younger) Lab Data MDM Lab Attestation statement: I reviewed the patient's lab results. 05/12/25 10:38 05/12/25 10:38 Labs: Lab Results 05/12/25 05/12/25 05/12/25 Range/Units 10:29 10:38 11:12 WBC 7.2 (4.8-10.8) X10*3/uL RBC 3.71 L (4.20-5.50) X10*6/uL Hgb 8.1 L D (12.0-16.0) g/dl Hct 27.5 L (37.0-47.0) % MCV 74.1 L (80.0-98.0) fL MCH 21.8 L (27.0-33.0) pg MCHC 29.5 L (31.0-35.0) g/dl RDW 20.4 H (11.0-16.0) % Plt Count 482 H D (160-400) X10*3/uL MPV 9.2 L (9.4-12.3) fL Immature Gran % (Auto) 0.4 (0.0-0.4) % Neut % (Auto) 74.6 H (45-73) % Lymph % (Auto) 13.3 L (20-40) % [place] % (Auto) 9.1 (2-11) % Eos % (Auto) 1.9 (0-4) % Baso % (Auto) 0.7 (0-2) % Lymph # (Auto) 1.0 L (1.2-4.9) X10*3/uL [place] # (Auto) 0.7 (0.1-1.2) X10*3/uL Eos # (Auto) 0.1 (0.0-0.4) X10*3/uL Baso # (Auto) 0.1 (0.0-0.2) X10*3/uL Abs Immat Gran (auto) 0.03 (0.00-0.03) X10*3/uL Absolute Neuts (auto) 5.4 (2.0-8.3) x10*3/uL Absolute Nucleated RBC 0.000 (0.0-0.012) X10*3/uL Nucleated RBC % (auto) 0.0 (0.0-0.2) /100WBC PT 17.9 H D (10.9-12.4) SEC INR 1.6 H (0.9-1.1) Sodium 139 (135-145) mmol/L Potassium 3.2 L D (3.3-5.1) mmol/L Chloride 97 (96-108) mmol/L Carbon Dioxide 32 H (22-29) mmol/L Anion Gap 13 (12-20) BUN 16 (9-16) mg/dL Creatinine 1.16 (0.5-1.4) mg/dL Estim Creat Clear Calc 32.2 Estimated GFR 44 Random Glucose 157 H (60-115) mg/dL Lactic Acid 2.0 (0.5-2.0) mmol/L Calcium 8.3 L D (8.4-10.2) mg/dL Total Bilirubin 0.3 (0.0-1.0) mg/dL Direct Bilirubin 0.2 (0.0-0.5) mg/dL AST 25 (5-31) U/L ALT 7 (0-31) U/L Alkaline Phosphatase 80 (39-117) U/L Troponin I High Sens 5.3 (<3.5-17.0) ng/L Total Protein 5.9 L (6.5-8.0) g/dL Albumin 3.0 L (3.5-5.0) g/dL Lipase 17 (8-78) U/L Urine Color Urine Appearance Urine pH (5.0-9.0) Ur Specific [place] (1.005-1.025) Urine Protein (Neg-Trace) mg/dL Urine Glucose (UA) (Negative) mg/dL Urine Ketones (Negative) mg/dL Urine Blood (Negative) Urine Nitrite (Negative) Ur Leukocyte Esterase (Negative) Urine RBC (0-2) /HPF Urine WBC (0-5) /HPF Ur Squamous Epith Cells (0-2) /HPF Urine Bacteria (None Seen) Hyaline Casts (0-2) /LPF Stool Occult Blood NEGATIVE (NEGATIVE) Influenza Type A (PCR) NEGATIVE (Negative) Influenza Type B (PCR) NEGATIVE (Negative) RSV RNA Qual (PCR) NEGATIVE (Negative) SARS-CoV-2 RNA (RT-PCR) NEGATIVE (Negative) 05/12/25 Range/Units 11:40 WBC (4.8-10.8) X10*3/uL RBC (4.20-5.50) X10*6/uL Hgb (12.0-16.0) g/dl Hct (37.0-47.0) % MCV (80.0-98.0) fL MCH (27.0-33.0) pg MCHC (31.0-35.0) g/dl RDW (11.0-16.0) % Plt Count (160-400) X10*3/uL MPV (9.4-12.3) fL Immature Gran % (Auto) (0.0-0.4) % Neut % (Auto) (45-73) % Lymph % (Auto) (20-40) % [place] % (Auto) (2-11) % Eos % (Auto) (0-4) % Baso % (Auto) (0-2) % Lymph # (Auto) (1.2-4.9) X10*3/uL [place] # (Auto) (0.1-1.2) X10*3/uL Eos # (Auto) (0.0-0.4) X10*3/uL Baso # (Auto) (0.0-0.2) X10*3/uL Abs Immat Gran (auto) (0.00-0.03) X10*3/uL Absolute Neuts (auto) (2.0-8.3) x10*3/uL Absolute Nucleated RBC (0.0-0.012) X10*3/uL Nucleated RBC % (auto) (0.0-0.2) /100WBC PT (10.9-12.4) SEC INR (0.9-1.1) Sodium (135-145) mmol/L Potassium (3.3-5.1) mmol/L Chloride (96-108) mmol/L Carbon Dioxide (22-29) mmol/L Anion Gap (12-20) BUN (9-16) mg/dL Creatinine (0.5-1.4) mg/dL Estim Creat Clear Calc Estimated GFR Random Glucose (60-115) mg/dL Lactic Acid (0.5-2.0) mmol/L Calcium (8.4-10.2) mg/dL Total Bilirubin (0.0-1.0) mg/dL Direct Bilirubin (0.0-0.5) mg/dL AST (5-31) U/L ALT (0-31) U/L Alkaline Phosphatase (39-117) U/L Troponin I High Sens (<3.5-17.0) ng/L Total Protein (6.5-8.0) g/dL Albumin (3.5-5.0) g/dL Lipase (8-78) U/L Urine Color Yellow Urine Appearance Cloudy Urine pH 6.5 (5.0-9.0) Ur Specific [place] 1.015 (1.005-1.025) Urine Protein Negative (Neg-Trace) mg/dL Urine Glucose (UA) >=1000 H (Negative) mg/dL Urine Ketones Negative (Negative) mg/dL Urine Blood Trace H (Negative) Urine Nitrite Negative (Negative) Ur Leukocyte Esterase Large (3+) H (Negative) Urine RBC 0-2 (0-2) /HPF Urine WBC >50 H (0-5) /HPF Ur Squamous Epith Cells 3-5 (0-2) /HPF Urine Bacteria None Seen (None Seen) Hyaline Casts 3-5 (0-2) /LPF Stool Occult Blood (NEGATIVE) Influenza Type A (PCR) (Negative) Influenza Type B (PCR) (Negative) RSV RNA Qual (PCR) (Negative) SARS-CoV-2 RNA (RT-PCR) (Negative) Independent Interpretation I performed an independent interpretation of an: Plain X-Ray (Chest:Pulmonary edema and likely small volume left-sided pleural effusion.) Radiology Impression Discussion of test interpretation with radiology: I have reviewed the radiologist's reading. Discharge Plan Discharge Clinical Impression: CHF exacerbation, Hypoxia, Hypokalemia, Urinary tract infection in elderly patient Patient Disposition: Admitted As Inpatient Print Language: Yi
[2025-05-12] MEDS: Albuterol Sulfate (0.083%) 2.5 MG/3 ML VIAL.NEB INHALE (10:23)
[2025-05-12] MEDS: Furosemide 100 MG/10 ML VIAL 60 MG IVPUSH (10:40)
[2025-05-12 10:44] LABS: MANUAL DIFF FLAG NO
[2025-05-12 10:50] LABS: Hematocrit 27.5 % (37.0-47.0); Hemoglobin 8.1 g/dl (12.0-16.0); Imm Gran Abs Auto 0.03 X10*3/uL (0.00-0.03); Imm Gran Pct Auto 0.4 % (0.0-0.4); Lymphocytes Absolute Auto 1.0 X10*3/uL (1.2-4.9); Mean Corpuscular HGB Conc 29.5 g/dl (31.0-35.0); Mean Corpuscular Hemoglobin 21.8 pg (27.0-33.0); Mean Corpuscular Volume 74.1 fL (80.0-98.0); NRBC Abs Auto 0.000 X10*3/uL (0.0-0.012); NRBC Pct Auto 0.0 /100WBC (0.0-0.2); Platelet Count 482 X10*3/uL (160-400); Red Blood Count 3.71 X10*6/uL (4.20-5.50); White Blood Count 7.2 X10*3/uL (4.8-10.8)
[2025-05-12 11:00] LABS: INTERNATIONAL NORM RATIO 1.6 (0.9-1.1); Prothrombin Time 17.9 SEC (10.9-12.4)
[2025-05-12 11:08] LABS: Troponin-I High Sensitivity 5.3 ng/L (<3.5-17.0)
[2025-05-12 11:11] LABS: Alanine Aminotransferase 7 U/L (0-31); Albumin Level 3.0 g/dL (3.5-5.0); Alkaline Phosphatase 80 U/L (39-117); Anion Gap 13 (12-20); Aspartate Amino Transferase 25 U/L (5-31); Blood Urea Nitrogen 16 mg/dL (9-16); Calcium 8.3 mg/dL (8.4-10.2); Carbon Dioxide 32 mmol/L (22-29); Chloride 97 mmol/L (96-108); Creatinine Clr Calc Pharmacy 32.2; Estimated Glomerular Filt Rate 44; Lipase 17 U/L (8-78); Potassium 3.2 mmol/L (3.3-5.1); Sodium 139 mmol/L (135-145); Total Protein 5.9 g/dL (6.5-8.0)
[2025-05-12 11:24] LABS: Resp Syncy Virus RNA Qual PCR NEGATIVE (Negative); SARS COV2 PCR INHOUSE NEGATIVE (Negative)
[2025-05-12 11:25] LABS: OBS Int Ctl Valid YES; OBS1 NEGATIVE (NEGATIVE)
[2025-05-12 11:51] LABS: Appearance Urine Cloudy; Glucose Urine UA >=1000 mg/dL (Negative); PH 6.5 (5.0-9.0); Specific Gravity - Urine 1.015 (1.005-1.025); UMIC TRIGGER UACC YES
[2025-05-12 11:54] LABS: UACC Culture Trigger YES
[2025-05-12] MEDS: Potassium Chloride Packet 20 MEQ PACKET 40 MEQ PO (11:55)
[2025-05-12] MEDS: Potassium Chloride/H20 10 MEQ/100 ML PIGGYBACK 100 MEQ IV (12:00)
--- NOTE | 2025-05-12 12:20 | PM.IMHP ---
History of Present Illness Date of Service: 05/12/25 Chief Complaint: Abdominal pain 85-year-old female PMHx significant for CHF, HTN, DVT on Eliquis, and ulcerative colitis , significant deconditioning who is now bed/wheelchair bound presented from her care home after were noted to be SOB/BOUCHER with hypoxia down to the low 80s necessitating transferred to the ED via ambulance. Patient's son and daughter at the bedside giving more history. Patient denies fever chills or nausea, fever. Patient reports that she was supposed to be placed to long-term care tomorrow however this will likely have to be postponed. Patient reports that she had a UTI for which she was on Bactrim from Sunday. Patient had frailty and falls and had a very traumatic left knee injury back in December necessitating wound care, prolonged SNF placement. Patient reports having a nasty cough at the care home and kept getting worse and was noted to be severely hypoxic in the late evenings last night to the low 80s and the nurse at the SNF placed her on 2 L and was worried for her and transferred the patient to our ED. In our ED she was noted to have brisk improvement with some fluids, IV antibiotics and nebulizing treatment and steroids. She likely also has a component of COPD. Patient met SIRS criteria on admission with acute hypoxia, possible source of infection pneumonia necessitating IV fluids, IV antibiotics (likely failed outpatient antibiotics as the patient was on Bactrim for UTI) hence may not have objective evidence of infection. Patient is being admitted for the same. Review of Systems Review of Systems: Yes all other systems are reviewed and are negative [facility] Medical History Diverticulitis History of acute respiratory failure Diarrhea History of CHF (congestive heart failure) Constipation Acute proctitis Hemorrhoids Spinal abscess Restless leg syndrome HTN (hypertension) Pre-diabetes DVT (deep venous thrombosis) Colitis Ulcerative colitis Surgical History Hx of shoulder surgery Social History Household Members: Other Household Members Other:: son Housing: House Do you presently have visiting nurse or other home services: Yes Alcohol intake: former Patient Tobacco Use Status: Never used Tobacco Advance Directives: Yes Advance Directives on File: Yes Advance Directives Date on File: 11/16/22 service: No Current occupational status: retired Meds Allergies Allergy/AdvReac Type Severity Reaction Status Date / Time barium Allergy Unknown Hives Uncoded 05/12/25 10:15 dogs, cats etc.. Allergy Unknown Unknown Uncoded 05/12/25 10:15 Active Medications: Current Medications Dextrose (Dextrose 50 % 25 Gm/50 Ml Syringe) 25 gm IVPUSH Q15M PRN; Protocol PRN Reason: per Hypoglycemia Standing Ord. Glucose (Glucose Gel 15 Gm Gel..Gram.) 15 gm PO Q15M PRN; Protocol PRN Reason: per Hypoglycemia Standing Ord. Potassium Chloride (Potassium Chloride/H20) 10 meq in 100 mls @ 100 mls/hr IV ONCE ONE Stop: 05/12/25 12:35 Last Admin: 05/12/25 12:00 Dose: 100 mls/hr Piperacillin Sod/Tazobactam (Sod 3.375 gm/ Sodium Chloride) 50 mls @ 100 mls/hr IV Q6H [facility] Insulin Human Lispro (Insulin Lispro 100 Unit/Ml 3 Ml Vial) 0 unit SUBCUT QIDACHS [facility]; Protocol Pharmacy Consult (Consult Rx Vancomycin Dosing) 1 each MISCELLANE DAILY PRN PRN Reason: Consult order Home Medications ?Medication ?Instructions ?Recorded ?Confirmed ?Last Taken ?Type apixaban 5 mg tablet (Eliquis) 5 mg PO BID 12/02/20 05/12/25 01/16/24 History atorvastatin 40 mg tablet 1 tab PO BEDTIME 05/11/21 05/12/25 1 Day Ago History ~01/15/24 duloxetine 20 mg capsule,delayed 20 mg PO BEDTIME 02/09/24 05/12/25 Unknown History release nitroglycerin 0.4 mg sublingual 0.4 mg sublingual Q5M PRN Chest 02/09/24 05/12/25 Unknown History tablet Pain metoprolol succinate 25 mg 25 mg PO DAILY 05/28/24 05/12/25 Unknown History tablet,extended release 24 hr dapagliflozin propanediol 10 mg 10 mg PO DAILY 11/13/24 05/12/25 Unknown History tablet (Farxiga) gabapentin 300 mg capsule 300 mg PO TID 11/23/24 05/12/25 Unknown History isosorbide mononitrate 30 mg 30 mg PO BEDTIME 11/23/24 05/12/25 Unknown History tablet,extended release 24 hr ropinirole 0.5 mg tablet 0.5 mg PO BEDTIME 11/23/24 05/12/25 Unknown History acetaminophen 325 mg tablet 650 mg PO Q4H PRN Pain 05/12/25 05/12/25 Unknown History acetaminophen 325 mg tablet 650 mg PO Q6H PRN Fever 05/12/25 05/12/25 Unknown History albuterol sulfate 90 mcg/actuation 1 puff inhalation Q4H PRN 05/12/25 05/12/25 Unknown History aerosol inhaler (Ventolin HFA) Shortness Of Breath Or Wheezing azathioprine 50 mg tablet 50 mg PO BID 05/12/25 05/12/25 Unknown History bisacodyl 10 mg rectal suppository 10 mg IA DAILY PRN Constipation 05/12/25 05/12/25 Unknown History (Dulcolax (bisacodyl)) dextrose 40 % oral gel 10 g PO Q15M PRN Hypoglycemia 05/12/25 05/12/25 Unknown History diclofenac sodium 1 % topical gel 2 g topical Q6H 05/12/25 05/12/25 Unknown History glucagon HCl 1 mg solution for 1 mg subcut Q20M PRN Hypoglycemia 05/12/25 05/12/25 Unknown History injection (Glucagon (HCl) Emergency Kit) insulin lispro 100 unit/mL See Protocol subcut TID 05/12/25 05/12/25 Unknown History subcutaneous pen (Humalog KwikPen (U-100) Insulin) levothyroxine 50 mcg tablet 50 mcg PO DAILY 05/12/25 05/12/25 Unknown History magnesium hydroxide 400 mg/5 mL 30 ml PO DAILY PRN Constipation 05/12/25 05/12/25 Unknown History oral suspension (Milk of Magnesia) melatonin 3 mg tablet 3 mg PO BEDTIME 05/12/25 05/12/25 Unknown History melatonin 5 mg tablet 5 mg PO BEDTIME PRN Sleep 05/12/25 05/12/25 Unknown History metformin 500 mg tablet 500 mg PO DAILY 05/12/25 05/12/25 Unknown History naloxone 4 mg/actuation nasal spray 4 mg intranasal Q2M PRN Opiate 05/12/25 05/12/25 Unknown History Reversal nystatin 100,000 unit/gram topical 1 appl topical DAILY 05/12/25 05/12/25 Unknown History powder oxycodone 5 mg tablet 2.5 mg PO Q6H PRN Pain 05/12/25 05/12/25 Unknown History polyethylene glycol 3350 17 17 g PO DAILY PRN Constipation 05/12/25 05/12/25 Unknown History gram/dose oral powder (Miralax) ropinirole 0.5 mg tablet 0.5 mg PO TID 05/12/25 05/12/25 Unknown History sodium phosphates 19 gram-7 118 ml IA DAILY PRN Constipation 05/12/25 05/12/25 Unknown History gram/118 mL enema (Fleet Enema) sulfamethoxazole 800 1 tab PO Q12H PRN Pain 05/12/25 05/12/25 Unknown History mg-trimethoprim 160 mg tablet (Bactrim DS) torsemide 20 mg tablet 20 mg PO DAILY 05/12/25 05/12/25 Unknown History trazodone 50 mg tablet 50 mg PO BEDTIME Sleep 05/12/25 05/12/25 Unknown History Physical Exam Vital Signs and Narrative: Vital Signs: Last Vital Signs Temp 97.4 F 05/12/25 11:41 Pulse 76 05/12/25 11:41 Resp 16 05/12/25 11:41 BP 105/45 L 05/12/25 11:41 Pulse Ox 97 05/12/25 11:41 O2 Del Method Nasal Cannula 05/12/25 11:41 O2 Flow Rate 2 05/12/25 11:41 BMI result Body Mass Index 28.9 General: AOx3, mild respiratory distress Resp: Mild bibasilar crackles/rhonchi heard left greater than right CVS: Tachycardia GI: +BS, NT, no distention Neuro:Motor grossly intact bilaterally Results Labs 05/12/25 10:38 05/12/25 10:38 Labs: Laboratory Results - last 24 hr 05/12/25 05/12/25 05/12/25 10:29 10:38 11:12 MCV 74.1 L MCH 21.8 L MCHC 29.5 L RDW 20.4 H Plt Count 482 H D MPV 9.2 L Immature Gran % (Auto) 0.4 Neut % (Auto) 74.6 H Lymph % (Auto) 13.3 L [place] % (Auto) 9.1 Eos % (Auto) 1.9 Baso % (Auto) 0.7 Lymph # (Auto) 1.0 L [place] # (Auto) 0.7 Eos # (Auto) 0.1 Baso # (Auto) 0.1 Abs Immat Gran (auto) 0.03 Absolute Neuts (auto) 5.4 Absolute Nucleated RBC 0.000 Nucleated RBC % (auto) 0.0 PT 17.9 H D INR 1.6 H Anion Gap 13 Estim Creat Clear Calc 32.2 Estimated GFR 44 Random Glucose 157 H Lactic Acid 2.0 Calcium 8.3 L D Total Bilirubin 0.3 Direct Bilirubin 0.2 AST 25 ALT 7 Alkaline Phosphatase 80 Troponin I High Sens 5.3 Total Protein 5.9 L Albumin 3.0 L Lipase 17 Urine Color Urine Appearance Urine pH Ur Specific [place] Urine Protein Urine Glucose (UA) Urine Ketones Urine Blood Urine Nitrite Ur Leukocyte Esterase Urine RBC Urine WBC Ur Squamous Epith Cells Urine Bacteria Hyaline Casts Stool Occult Blood NEGATIVE Influenza Type A (PCR) NEGATIVE Influenza Type B (PCR) NEGATIVE RSV RNA Qual (PCR) NEGATIVE SARS-CoV-2 RNA (RT-PCR) NEGATIVE 05/12/25 11:40 MCV MCH MCHC RDW Plt Count MPV Immature Gran % (Auto) Neut % (Auto) Lymph % (Auto) [place] % (Auto) Eos % (Auto) Baso % (Auto) Lymph # (Auto) [place] # (Auto) Eos # (Auto) Baso # (Auto) Abs Immat Gran (auto) Absolute Neuts (auto) Absolute Nucleated RBC Nucleated RBC % (auto) PT INR Anion Gap Estim Creat Clear Calc Estimated GFR Random Glucose Lactic Acid Calcium Total Bilirubin Direct Bilirubin AST ALT Alkaline Phosphatase Troponin I High Sens Total Protein Albumin Lipase Urine Color Yellow Urine Appearance Cloudy Urine pH 6.5 Ur Specific [place] 1.015 Urine Protein Negative Urine Glucose (UA) >=1000 H Urine Ketones Negative Urine Blood Trace H Urine Nitrite Negative Ur Leukocyte Esterase Large (3+) H Urine RBC 0-2 Urine WBC >50 H Ur Squamous Epith Cells 3-5 Urine Bacteria None Seen Hyaline Casts 3-5 Stool Occult Blood Influenza Type A (PCR) Influenza Type B (PCR) RSV RNA Qual (PCR) SARS-CoV-2 RNA (RT-PCR) Imaging Radiologist's Impressions: Impressions Chest X-Ray 05/12/25 10:19 IMPRESSION: Pulmonary edema and likely small volume left-sided pleural effusion. Electronically signed by: Live Kaplan MD 05/12/2025 10:30 AM EDT RP Assessment and Plan (1) Hypoxia: Status: Acute Plan 85-year-old female PMHx significant for CHF, HTN, DVT on Eliquis, and ulcerative colitis , significant deconditioning who is now bed/wheelchair bound presented from her care home after were noted to be SOB/BOUCHER and workup revealed sepsis secondary to pneumonia in a patient who is immunocompromised (immunosuppressants secondary to ulcerative colitis, already on Bactrim for UTI). Acute hypoxic respiratory distress likely secondary to pneumonia in a patient who is immunocompromised (immunosuppressants secondary to ulcerative colitis, already on Bactrim for UTI), likely failed outpatient antibiotics (Bactrim for UTI day 4) Patient needs broad-spectrum antibiotics with IV antibiotics ceftriaxone and azithromycin and vancomycin IV fluids per sepsis protocol and maintenance fluids still the patient's blood pressure stabilizes Continue we lack trending until normalized Pulmonary hygiene UTI-patient failed outpatient antibiotics was on day 4 of Bactrim We will hold/stop Bactrim as she is getting IV antibiotics HFpEF We will carefully titrate Lasix Baseline urinary and bowel incontinence We will maintain hygiene to prevent excoriation Nystatin for fungal excoriation to be continued home meds Prior DVT on Eliquis continue UC-continue home Imuran, budesonide and pantoprazole Can check GI and C diff protocol if she notes to have diarrhea which would likely be in the setting of antibiotics which she has been on-Bactrim for the past 4 days. Steroid induced diabetes mellitus type 2 Hold home metformin and insulin and for now we will treat her with sliding scale insulin and titrate to maintain euglycemia Hypoglycemia protocol DVT prophylaxis with home Eliquis-continue Inpatient treatment with intravenous antibiotics is necessary for this immunocompromised patient with ulcerative colitis who has failed outpatient therapy with Bactrim for a urinary tract infection. The patient is at increased risk for rapid progression to severe infection and complications due to underlying immunosuppression and chronic disease. Hospital admission allows for close monitoring, administration of broad-spectrum IV antibiotics, and timely adjustment of therapy based on clinical response and culture results. Inpatient care also facilitates prompt management of potential complications, including sepsis and worsening colitis. This note is constructed using voice recognition software. While every effort has been made to ensure accuracy, release engineer errors may have been included. Quality Stroke Does the patient have a stroke diagnosis?: No VTE Prior VTE?: Yes VTE Risk Level:: Medical - moderate - high VTE Device Contraindication: N/A - Device Ordered VTE Drug Contraindication: N/A - Med Ordered
--- OUTSIDE RECORDS SUMMARY | 2025-05-12 12:56 | XMS_ITS | Patient Health Record ---
Author Organization [facility] Maggie Willley Address [address] [place] [address] Care Team Providers Care Web Ui Developer Name Role Phone Ozzy Ahn MD Primary Care Provider Dre Kauffman Unavailable [phone] Allergies Allergen (clinical drug ingredient) Drug/Non Drug Allergy documented on EMR Reaction Allergy Type Onset Date Status amoxicillin Amoxicillin Unknown Drug Allergy Act ollie Biaxin Unknown Drug Allergy Active erythromycin Erythromycin Unknown Drug Allergy A ctive dye hives Drug Allergy Active Z-Pac Unknown Drug Allergy Active nsaids bleeding Drug Allergy Active Reason For Referral No Information Medications Medication SIG (Take, Route, Frequency, Duration) Notes Start Date End Date Status Lumigan 2.5 mg qd Activ e rOPINIRole HCl Activ e Gabapentin Active Xarelto Not-Taking Lialda Active Dorzolamide HCl-Timolol Mal 22.3 mg bid Active Naproxen 500 mg bid Not- Taking Requip .5 mg qid Not-Orbel ing Social History Tobacco use other than smoking: Question Answer Notes Are you an other tobacco user? No Problems Problem Type SNOMED Code ICD Code Onset Dates Problem Status W/U Status Risk Notes Problem Acquired hallux valgus (76409741) Hallux valgus (acquired), left foot (M20.12) Active confirmed Problem Acquired hallux valgus (03791312) Hallux valgus (acquired), right foot (M20.11) Active confirmed Problem Localized, primary osteoarthritis of the ankle and/or foot (092240558) Primary osteoarthrit is, left ankle and foot (M19.072) Active confirmed Problem Localized, primary osteoarthritis of the ankle and/or foot (012635749) Primary osteoarthrit is, right ankle and foot (M19.071) Active confirmed Plan Of Treatment Pending Test Test Name Order Date X ray : Foot, left 3V 06/21/2011 X ray : Foot, right 3V 06/21/2011, [id number]/[id number], JOINT/BURSA 0 03/31/2016, [id number]/INJECT, JOINT/BURSA 0 04/04/2016, [id number]/INJECT, JOINT/BURSA 0 09/08/2016, [id number]/INJECT, JOINT/BURSA 0 01/05/2017 Insurance Providers Payer Name Payer Address Payer Phone Subscriber Number Group Number Insured Name Patient Relationship to Insured Coverage Start Date Coverage End Date Medicare National [employer] [address] [place] [address] [id number] Maris Nash Self - patient is the insured 4 [employer] Blue [employer] [address] [place] [address] [id number] Maris Nash Self - patient is the insured Medical (General) History Medical History History ICD Code Arthritis back, hip, knee pain cataracts glaucoma nerve disease measles Diverticulitis Neuropathy Ulcerative colitis Restless leg syndrome Surgical History Surgery Date(Month/Year) gall bladder 2003 appendectomy 1956 cataract surgery 2007 eye surgery 2009 rotator cuff tear repair Hospitalization History Reason Date(Month/Year) [facility] was found pt has a blood clot R leg 11/2016
--- NOTE | 2025-05-12 13:50 | PHA.MEDREC ---
Addendum entered by Ynuior Mcwilliams RPh 05/12/25 14:54: MED REC REVIEWED BY [facility] Original Note: Pharmacy Consult ? Medication Reconciliation Pharmacy has completed the medication reconciliation. Utilized list from [facility] [place] to confirm med list.
[2025-05-12 13:56] LABS: COVID-19 Test Negative (Negative); IDNOW Serial# 08D9AD1C
[2025-05-12 14:05] LABS: Hemoglobin A1C 122.9119 umol/L; Total Hemoglobin (HGBA1C) 2469.7586 umol/L
--- NOTE | 2025-05-12 14:08 | PHA.PROG ---
Admission Date/Time: May 12, 2025 12:13 Indication: Resp Weight in k.6 kg Adjusted body weight in Kg: [place] body weight in Kg: Obesity Dosing Indication % IBW: Serum Creatinine - Last 168 Hours 05/12/25 10:38 Creatinine 1.16 Estimated CrCl and GFR - Last 168 Hours 05/12/25 10:38 Estim Creat Clear Calc 32.2 Estimated GFR 44 Vancomycin Loading Dose: 1500mg Current Vancomycin Dosing Regimen: 1000mg Q24H Vancomycin Monitoring using AUC goal of 400 - 600 range with trough as surrogate marker: Date and Time for next Vancomycin Level to be drawn: 05/14/25 @ 1200 Pharmacist Comments on Vancomycin Plan: Vancomycin dosing will take advantage of [employer] as a clinical decision support tool that uses Bayesian modeling to calculate individual patient's pharmacokinetic parameters and forecast the patient's drug concentration time course with the target goal AUC 24 range of 400 - 600 mg/L/hr.
[2025-05-12 14:35] LABS: Chlamydia pneumoniae PCR Not Detected (Not Detect.); Coronavirus 229E PCR Not Detected (Not Detect.); Coronavirus HKU1 PCR Not Detected (Not Detect.); Coronavirus NL63 PCR Not Detected (Not Detect.); Coronavirus OC43 PCR Not Detected (Not Detect.); RSV PCR Not Detected (Not Detect.); Rhino/Enterovirus PCR Not Detected (Not Detect.)
[2025-05-12 15:22] LABS: Influenza A H1 PCR Not Detected (Not Detect.); Influenza A H1-2009 PCR Not Detected (Not Detect.); Influenza A H3 PCR Not Detected (Not Detect.); SARS-CoV-2 PCR Not Detected (Not Detect.)
[2025-05-12 18:33] LABS: Glucose, Whole Blood 179 mg/dL (60-115)
--- NOTE | 2025-05-12 19:36 | HO.NURTONUR ---
RN assumed care of patient at 1900. Pt stated she was having feet and L shoulder pain and asked for prn oxy she states [facility]. Pt does not have oxy prn on the [facility]. RN reached out to the admitting provider of this pt. RN also cleaned pt up as she had urine on her legs and bed from the [facility]. New bed pads were provided and pt was cleaned thoroughly. Waiting on response from provider regarding pain meds. RN also placed pt on the nasal canula as it was not on pt. RN educated pt on the importance of having the O2 on. Pt confirmed verbally. Pt is Axox4, able to make needs known. respirations even and unlabored. Bed at lowest position, bed rails up, and call gustafson next to pt.
--- NOTE | 2025-05-12 20:42 | HO.NURTONUR ---
RN messaged pharmacy as some of pts meds are not in the ED/Psyc pyxis. Waiting for delivery.
[2025-05-12 21:20] LABS: Glucose, Whole Blood 101 mg/dL (60-115)
[2025-05-12] MEDS: oxyCODONE HCl Immed Release 5 MG TABLET PO (21:31)
--- NOTE | 2025-05-12 23:22 | MHC.EDTECH ---
PATIENT WAS MOVED TO HOSPITAL BED .PATIENT INDICATED HAVING PAIN ON RIGHT ARM.PATIENT HAD A LAC 3 BY 3 STERI STRIPS APPLIED.RN WAS NOTIFIED
--- NOTE | 2025-05-12 23:50 | HO.NURTONUR ---
RN was notified by [facility] that pt had a lac on her right arm. The lac was about a 3x3; area cleansed with saline, steri strips applied. Pt denied any pain.
[2025-05-13] VITALS (13 sets, daily range): BP systolic 47–130; BP diastolic 24–63; PULSE 61–100; RESP 12–22; TEMP 36.1–36.9; O2SAT 88–99; BMI 28.9
[2025-05-13 05:08] LABS: MANUAL DIFF FLAG NO
[2025-05-13 05:11] LABS: Hematocrit 25.6 % (37.0-47.0); Hemoglobin 7.7 g/dl (12.0-16.0); Imm Gran Abs Auto 0.14 X10*3/uL (0.00-0.03); Imm Gran Pct Auto 1.9 % (0.0-0.4); Lymphocytes Absolute Auto 1.0 X10*3/uL (1.2-4.9); Mean Corpuscular HGB Conc 30.1 g/dl (31.0-35.0); Mean Corpuscular Hemoglobin 22.0 pg (27.0-33.0); Mean Corpuscular Volume 73.1 fL (80.0-98.0); NRBC Abs Auto 0.000 X10*3/uL (0.0-0.012); NRBC Pct Auto 0.0 /100WBC (0.0-0.2); Platelet Count 457 X10*3/uL (160-400); Red Blood Count 3.50 X10*6/uL (4.20-5.50); White Blood Count 7.3 X10*3/uL (4.8-10.8)
[2025-05-13 05:26] LABS: Alanine Aminotransferase < 6 U/L (0-31); Albumin Level 2.8 g/dL (3.5-5.0); Alkaline Phosphatase 83 U/L (39-117); Anion Gap 17 (12-20); Aspartate Amino Transferase 27 U/L (5-31); Blood Urea Nitrogen 18 mg/dL (9-16); Calcium 8.5 mg/dL (8.4-10.2); Carbon Dioxide 25 mmol/L (22-29); Chloride 106 mmol/L (96-108); Creatinine Clr Calc Pharmacy 34.0; Estimated Glomerular Filt Rate 47; Potassium 4.9 mmol/L (3.3-5.1); Sodium 143 mmol/L (135-145); Total Protein 5.5 g/dL (6.5-8.0)
--- NOTE | 2025-05-13 07:00 | CA_ITS ---
Transthoracic Echocardiogram Patient (Last, First, Middle): Maris Nash R Gender: F Date of : 1940 Age: 85 Procedure Date: 05/13/2025 Procedure Type: Transthoracic Echocardiogram Location: ER Height: 157.48 cm Weight: 71.22 kg BSA: 1.72 m2 Heart Rate: 75 bpm BP: 90 / 35 mmHg Internal Audit Manager: Referring MD: Joe Brooks MD Professional Bondsman: Heriberto Cabezas MD Symptoms: chf Study Quality: Adequate ECG Rhythm: Sinus Conclusions: - 1. Low normal LV ejection fraction of 50-55% with grade 2 diastolic dysfunction 2. Mild aortic stenosis 3. Upper limits of normal RV systolic pressure with mildly elevated right atrial pressures 4. Mildly dilated left atrium 5. No gross pericardial effusion Findings Left Ventricle Normal left ventricular cavity size. There is mildly increased left ventricular wall thickness. The left ventricular systolic function is low normal. The visually estimated ejection fraction is between 50-55%. Spectral Doppler is indicative of a pseudonormal filling pattern. E/E prime ratio is >15, consistent with elevated filling pressures. Evidence suggests grade II (moderate) diastolic dysfunction. Right Ventricle Normal right ventricular cavity size and systolic function. Atria The left atrium is mildly dilated. There is no evidence of interatrial shunt. The right atrium is normal in size. Aortic Valve The aortic valve was not well visualized. There is mild calcification of the aortic valve. The peak aortic gradient is 13 mmHg.The mean gradient is 7 mmHg. The aortic valve area is 1.71 cm2. There is no aortic valve regurgitation. Mitral Valve There is mild anterior and posterior mitral leaflet thickening. There is trace mitral valve regurgitation. There is no mitral valve stenosis. Pulmonic Valve The pulmonic valve was not well visualized. Tricuspid Valve Normal tricuspid valve structure. There is trace tricuspid valve regurgitation. Mildly elevated right atrial pressure. There is no evidence of pulmonary hypertension. Great Vessels All visible segments of the aorta are normal in size. The pulmonary artery was not well visualized. There is no dilatation of the ascending aorta measuring 3.40 cm. Venous The inferior vena cava is moderately dilated and collapses less than 50% with inspiration. Pericardium/Pleural There is no evidence of pericardial effusion. Prior Study Comparison Changes noted compared to prior study dated: 12/13/2023. Right ventricular systolic pressure is elevated with mildly elevated right atrial pressure Measurements 2D Linear Measurements IVSd: 1.22 0.6-0.9/0.6-1.0 cm LVIDd: 4.53 3.9-5.3/4.2-5.9 cm LVIDd Index: 2.63 2.4-3.2/2.2-3.1 cm/m2 LVIDs: 2.81 2.0-3.6 cm LVPWd: 1.24 0.7-1.1 cm LA Diam: 2.60 2.7-3.8/3.0-4.0 cm LAIDs Index: 1.51 1.5-2.3 cm/m2 LV Mass: 258.52 67-162/88-224 g LV Mass Index: 150.30 43-95/49-115 g/m2 LVOT Diam: 2.10 3.0+(-)1.3 cm 2D Systolic Function EF 4C: 47.20 >55% EF 2C: 56.20 >55% EF BiP: 51.50 >55% Mitral Valve MV VTI: 0.46 MV Pk Elfego: 1.35 MV Mn Elfego: 0.83 MV Pk Grad: 7.00 MV Mn Grad: 3.00 MV Pk E: 1.19 MV PK A: 1.12 MV Decel Time: 183.00 E/A: 1.10 E'Lateral: 5.66 E'Medial: 4.79 E/E' Med: 24.80 E/E' Lat: 21.00 PHT: 54.00 MVA PHT: 4.07 MVA Continuity: 1.64 Decel O'Brien: 6.51 Aortic Valve AoV Pk Elfego: 1.83 AoV Mn Elfego: 1.17 AoV VTI: 0.44 AoV Pk Grad: 13.00 Aov Mn Grad: 7.00 HECTOR Cont.VTI: 1.71 LVOT LVOT Pk Elfego: 0.88 LVOT Mn Elfego: 0.59 LVOT VTI: 0.22 LVOT Pk Grad: 3.00 LVOT Mn Grad: 2.00 LVOT Diam: 2.10 LVOT Area: 3.46 Diastolic Function MV Pk E: 1.19 MV Pk A: 1.12 E/A: 1.10 E'Medial: 4.79 E/E' Med: 24.80 E' Laterial: 5.66 E/E' Lat: 21.00 Right Ventricle TAPSE (mm): 29.10 TVS' Elfego: 15.10 Tricuspid Valve TR Pk Elfego: 2.74 TR Pk Grad: 30.00 RA Press: 8.00 RVSP: 38.00 Great Vessels Aorta Sinus of Valsalva: 3.30 2.0-3.5 cm Ao Asc: 3.40 2.1-3.4 cm Pulmonary Valve PV Pk Elfego: 0.95 Peak PV Grad: 4.00 Updated in Other Vendor System with Status of Final Heriberto Cabezas MD electronically signed on 05/13/2025 3:25:10 PM with status of Final
[2025-05-13 07:06] LABS: Glucose, Whole Blood 108 mg/dL (60-115)
[2025-05-13 08:48] LABS: NT Pro B Type Natriuretic Pept 793.5 pg/mL (<300)
[2025-05-13 08:54] LABS: Iron 18 mcg/dL (30-160); Percent Iron Saturation 7 % (15-50); Total Iron Binding Capacity 272 mcg/dL (228-428); Unsaturated Iron Binding 254 ug/dL
[2025-05-13 09:05] LABS: Ferritin 19 ng/mL (10-250)
--- NOTE | 2025-05-13 09:20 | PC.NURSE ---
Pt noted to have sudden onset of hypotension while on bedpan. Pt reports feeling light headed while pushing for BM. BP recovers quickly and Pt reports feeling better. BP changes documented. Will continue to monitor BPs as frequently fluctuations noted.
[2025-05-13] MEDS: Budesonide DR 3 MG Capsule 9 MG PO (10:04)
--- NOTE | 2025-05-13 11:23 | P.PNIM_ITS ---
Subjective Subjective Date of Service: 05/13/25 Interval History: sob Physical Exam 2 Exam: Exam: General: AO X 3, no acute distress Resp: CTA bilateral, no accessory muscles used CVS: S1,S2,RRR GI: soft, non tender, non distended Neuro: motor grossly intact, alert Psych: appropriate affect, appropriate insight Vital Signs: Vital Signs: Last Vital Signs Temp 97.5 F 05/13/25 08:12 Pulse 62 05/13/25 09:24 Resp 22 H 05/13/25 09:24 BP 100/36 L 05/13/25 09:24 Pulse Ox 95 05/13/25 09:24 O2 Del Method Nasal Cannula 05/13/25 09:24 O2 Flow Rate 3 05/13/25 09:24 BMI result Body Mass Index 28.9 Objective Data Active Medications Albuterol Sulfate (Albuterol Sulfate 90 Mcg 8 Gm Inhaler) 1 puff INHALE Q4H PRN PRN Reason: Shortness Of Breath Or Wheezing Apixaban (Apixaban 5 Mg Tablet) 5 mg PO BID [facility] Last Admin: 05/13/25 08:13 Dose: 5 mg Documented By: LES Atorvastatin Calcium (Atorvastatin Calcium 40 Mg Tablet) 40 mg PO BEDTIME [facility] Last Admin: 05/12/25 20:49 Dose: 40 mg Documented By: KIMBERLY Azathioprine (Azathioprine 50 Mg Tablet) 50 mg PO BID [facility] Last Admin: 05/13/25 10:03 Dose: 50 mg Documented By: ROBY Bisacodyl (Bisacodyl 10 Mg Supp.Rect) 10 mg [place] DAILY PRN PRN Reason: Constipation Budesonide (Budesonide Dr 3 Mg Capsule) 9 mg PO DAILY [facility] Last Admin: 05/13/25 10:04 Dose: 9 mg Documented By: ROBY Ceftriaxone Sodium (Ceftriaxone Sodium 1 Gm Vial) 1 gm IVPUSH Q24H [facility] Dextrose (Dextrose 50 % 25 Gm/50 Ml Syringe) 25 gm IVPUSH Q15M PRN; Protocol PRN Reason: per Hypoglycemia Standing Ord. Dextrose (Dextrose 50 % 25 Gm/50 Ml Syringe) 25 gm IVPUSH Q15M PRN; Protocol PRN Reason: per Hypoglycemia Standing Ord. Duloxetine HCl (Duloxetine Hcl 20 Mg Capsule.) 20 mg PO BEDTIME [facility] Last Admin: 05/12/25 20:49 Dose: 20 mg Documented By: KIMBERLY Furosemide (Furosemide 40 Mg/4 Ml Vial) 40 mg IVPUSH BID@0900,1800 [facility]; Protocol Last Admin: 05/13/25 09:28 Dose: Not Given Documented By: LES Non-Admin Reason: Pt hypotensive throughout AM Gabapentin (Gabapentin 300 Mg Capsule) 300 mg PO TID [facility] Last Admin: 05/13/25 08:13 Dose: 300 mg Documented By: LES Glucose (Glucose Gel 15 Gm Gel..Gram.) 15 gm PO Q15M PRN; Protocol PRN Reason: per Hypoglycemia Standing Ord. Glucose (Glucose Gel 15 Gm Gel..Gram.) 10 gm PO Q15M PRN PRN Reason: Hypoglycemia Glucose (Glucose Gel 15 Gm Gel..Gram.) 15 gm PO Q15M PRN; Protocol PRN Reason: per Hypoglycemia Standing Ord. Insulin Human Lispro (Insulin Lispro 100 Unit/Ml 3 Ml Vial) 0 unit SUBCUT QIDACHS [facility]; Protocol Last Admin: 05/13/25 07:14 Dose: Not Given Documented By: LES Non-Admin Reason: No Insulin Coverage Comments: POC 108 Isosorbide Mononitrate (Isosorbide Mononitrate 30 Mg Tab.Er.24h) 30 mg PO BEDTIME [facility]; Protocol Last Admin: 05/12/25 20:49 Dose: 30 mg Documented By: KIMBERLY Levothyroxine Sodium (Levothyroxine Sodium 50 Mcg Tablet) 50 mcg PO DAILY@0600 [facility] Last Admin: 05/13/25 05:47 Dose: 50 mcg Documented By: KIMBERLY Magnesium Hydroxide (Milk Of Magnesia 30 Ml Oral.Susp) 30 ml PO DAILY PRN PRN Reason: Constipation Melatonin (Melatonin 3 Mg Tablet) 3 mg PO BEDTIME [facility] Last Admin: 05/12/25 20:53 Dose: 3 mg Documented By: KIMBERLY Metoprolol Succinate (Metoprolol Succinate Er 25 Mg Tab.Er.24h) 25 mg PO DAILY [facility]; Protocol Last Admin: 05/13/25 08:11 Dose: Not Given Documented By: LES Non-Admin Reason: Decreased Blood Pressure Naloxone HCl (Naloxone Hcl Nasal 4 Mg [place]) 4 mg NOSTRILALT Q2M PRN PRN Reason: Opiate Reversal Nitroglycerin (Nitroglycerin 0.4 Mg Tab.Subl) 0.4 mg SUBLINGUAL Q5M PRN PRN Reason: Chest Pain Nystatin (Nystatin Powder 15 Gm Bottle) 1 appl TOPICAL DAILY [facility]; Protocol Last Admin: 05/13/25 08:16 Dose: Not Given Documented By: LES Non-Admin Reason: Patient Refused Oxycodone HCl (Oxycodone Hcl Immed Release 5 Mg Tablet) 5 mg PO Q6H PRN PRN Reason: Breakthrough Pain Last Admin: 05/12/25 21:31 Dose: 5 mg Documented By: KIMBERLY Polyethylene Glycol (Polyethylene Glycol 3350 17 Gm Powd.Pack) 17 gm PO DAILY PRN PRN Reason: Constipation Ropinirole HCl (Ropinirole Hcl 0.5 Mg Tablet) 0.5 mg PO BEDTIME [facility] Last Admin: 05/12/25 21:31 Dose: 0.5 mg Documented By: KIMBERLY Ropinirole HCl (Ropinirole Hcl 0.5 Mg Tablet) 0.5 mg PO TIDWM [facility] Last Admin: 05/13/25 08:13 Dose: 0.5 mg Documented By: LES Sodium Biphosphate/Sodium Phosphate (Sodium Phosphate,[place]-Dibasic 133 Ml Enema) 118 ml [place] DAILY PRN PRN Reason: Constipation Trazodone HCl (Trazodone Hcl 50 Mg Tablet) 50 mg PO BEDTIME [facility] Last Admin: 05/12/25 20:49 Dose: 50 mg Documented By: KIMBERLY Labs 05/13/25 04:22 05/13/25 04:22 Labs: Laboratory Results - last 24 hr 05/12/25 05/12/25 05/12/25 10:29 10:38 11:12 MCV MCH MCHC RDW Plt Count MPV Immature Gran % (Auto) Neut % (Auto) Lymph % (Auto) [place] % (Auto) Eos % (Auto) Baso % (Auto) Lymph # (Auto) [place] # (Auto) Eos # (Auto) Baso # (Auto) Abs Immat Gran (auto) Absolute Neuts (auto) Absolute Nucleated RBC Nucleated RBC % (auto) Anion Gap Estim Creat Clear Calc Estimated GFR POC Glucose Random Glucose Estimat Average Glucose Hemoglobin A1c % Calcium Iron 18 L TIBC 272 % Saturation 7 L Unsat Iron Binding 254 Ferritin 19 Total Bilirubin AST ALT Alkaline Phosphatase NT-Pro-B Natriuret Pep 793.5 H Total Protein Albumin Urine Color Urine Appearance Urine pH Ur Specific [place] Urine Protein Urine Glucose (UA) Urine Ketones Urine Blood Urine Nitrite Ur Leukocyte Esterase Urine RBC Urine WBC Ur Squamous Epith Cells Urine Bacteria Hyaline Casts Stool Occult Blood NEGATIVE Respiratory Panel Mack Adenovirus (Rapid PCR) B.pert (TEM-PCR) B.parapertussis DNA PCR C. pneumoniae DNA (PCR) Coronavirus OC43 (PCR) Coronavirus HKU1 (PCR) Coronavirus 229E (PCR) COVID-19 ([facility]) COVID-19 Clin Com Coronavirus NL63 (PCR) Human Metapneumovir PCR Influenza A (RT-PCR) Influenza A (H1) PCR Influ A (H1/) PCR Influenza A (H3) PCR Influenza Type A (PCR) NEGATIVE Influenza B (RT-PCR) Influenza Type B (PCR) NEGATIVE M. pneumoniae (PCR) Parainfluenza 1 (PCR) Parainfluenza 2 (PCR) Parainfluenza 3 (PCR) Parainfluenza 4 (PCR) RSV (PCR) RSV RNA Qual (PCR) NEGATIVE Entero/Rhino (PCR) SARS-CoV-2 RNA (RT-PCR) NEGATIVE 05/12/25 05/12/25 05/12/25 11:40 13:11 13:35 MCV MCH MCHC RDW Plt Count MPV Immature Gran % (Auto) Neut % (Auto) Lymph % (Auto) [place] % (Auto) Eos % (Auto) Baso % (Auto) Lymph # (Auto) [place] # (Auto) Eos # (Auto) Baso # (Auto) Abs Immat Gran (auto) Absolute Neuts (auto) Absolute Nucleated RBC Nucleated RBC % (auto) Anion Gap Estim Creat Clear Calc Estimated GFR POC Glucose Random Glucose Estimat Average Glucose 146 Hemoglobin A1c % 6.7 H Calcium Iron TIBC % Saturation Unsat Iron Binding Ferritin Total Bilirubin AST ALT Alkaline Phosphatase NT-Pro-B Natriuret Pep Total Protein Albumin Urine Color Yellow Urine Appearance Cloudy Urine pH 6.5 Ur Specific [place] 1.015 Urine Protein Negative Urine Glucose (UA) >=1000 H Urine Ketones Negative Urine Blood Trace H Urine Nitrite Negative Ur Leukocyte Esterase Large (3+) H Urine RBC 0-2 Urine WBC >50 H Ur Squamous Epith Cells 3-5 Urine Bacteria None Seen Hyaline Casts 3-5 Stool Occult Blood Respiratory Panel Mack See Note Adenovirus (Rapid PCR) Not Detected B.pert (TEM-PCR) Not Detected B.parapertussis DNA PCR Not Detected C. pneumoniae DNA (PCR) Not Detected Coronavirus OC43 (PCR) Not Detected Coronavirus HKU1 (PCR) Not Detected Coronavirus 229E (PCR) Not Detected COVID-19 ([facility]) Negative COVID-19 Clin Com See Note Coronavirus NL63 (PCR) Not Detected Human Metapneumovir PCR Not Detected Influenza A (RT-PCR) Not Detected Influenza A (H1) PCR Not Detected Influ A (H1/09) PCR Not Detected Influenza A (H3) PCR Not Detected Influenza Type A (PCR) Influenza B (RT-PCR) Not Detected Influenza Type B (PCR) M. pneumoniae (PCR) Not Detected Parainfluenza 1 (PCR) Not Detected Parainfluenza 2 (PCR) Not Detected Parainfluenza 3 (PCR) Not Detected Parainfluenza 4 (PCR) Not Detected RSV (PCR) Not Detected RSV RNA Qual (PCR) Entero/Rhino (PCR) Not Detected SARS-CoV-2 RNA (RT-PCR) Not Detected 05/12/25 05/12/25 05/13/25 18:29 21:16 04:22 MCV 73.1 L MCH 22.0 L MCHC 30.1 L RDW 20.3 H Plt Count 457 H MPV 9.7 Immature Gran % (Auto) 1.9 H Neut % (Auto) 70.7 Lymph % (Auto) 13.9 L [place] % (Auto) 10.3 Eos % (Auto) 2.2 Baso % (Auto) 1.0 Lymph # (Auto) 1.0 L [place] # (Auto) 0.8 Eos # (Auto) 0.2 Baso # (Auto) 0.1 Abs Immat Gran (auto) 0.14 H Absolute Neuts (auto) 5.2 Absolute Nucleated RBC 0.000 Nucleated RBC % (auto) 0.0 Anion Gap 17 Estim Creat Clear Calc 34.0 Estimated GFR 47 POC Glucose 179 H 101 Random Glucose 100 Estimat Average Glucose Hemoglobin A1c % Calcium 8.5 Iron TIBC % Saturation Unsat Iron Binding Ferritin Total Bilirubin 0.3 AST 27 ALT < 6 Alkaline Phosphatase 83 NT-Pro-B Natriuret Pep Total Protein 5.5 L Albumin 2.8 L Urine Color Urine Appearance Urine pH Ur Specific [place] Urine Protein Urine Glucose (UA) Urine Ketones Urine Blood Urine Nitrite Ur Leukocyte Esterase Urine RBC Urine WBC Ur Squamous Epith Cells Urine Bacteria Hyaline Casts Stool Occult Blood Respiratory Panel [place] Adenovirus (Rapid PCR) B.pert (TEM-PCR) B.parapertussis DNA PCR C. pneumoniae DNA (PCR) Coronavirus OC43 (PCR) Coronavirus HKU1 (PCR) Coronavirus 229E (PCR) COVID-19 ([facility]) COVID-19 Clin Com Coronavirus NL63 (PCR) Human Metapneumovir PCR Influenza A (RT-PCR) Influenza A (H1) PCR Influ A (H1/09) PCR Influenza A (H3) PCR Influenza Type A (PCR) Influenza B (RT-PCR) Influenza Type B (PCR) M. pneumoniae (PCR) Parainfluenza 1 (PCR) Parainfluenza 2 (PCR) Parainfluenza 3 (PCR) Parainfluenza 4 (PCR) RSV (PCR) RSV RNA Qual (PCR) Entero/Rhino (PCR) SARS-CoV-2 RNA (RT-PCR) 05/13/25 06:53 MCV MCH MCHC RDW Plt Count MPV Immature Gran % (Auto) Neut % (Auto) Lymph % (Auto) [place] % (Auto) Eos % (Auto) Baso % (Auto) Lymph # (Auto) [place] # (Auto) Eos # (Auto) Baso # (Auto) Abs Immat Gran (auto) Absolute Neuts (auto) Absolute Nucleated RBC Nucleated RBC % (auto) Anion Gap Estim Creat Clear Calc Estimated GFR POC Glucose 108 Random Glucose Estimat Average Glucose Hemoglobin A1c % Calcium Iron TIBC % Saturation Unsat Iron Binding Ferritin Total Bilirubin AST ALT Alkaline Phosphatase NT-Pro-B Natriuret Pep Total Protein Albumin Urine Color Urine Appearance Urine pH Ur Specific [place] Urine Protein Urine Glucose (UA) Urine Ketones Urine Blood Urine Nitrite Ur Leukocyte Esterase Urine RBC Urine WBC Ur Squamous Epith Cells Urine Bacteria Hyaline Casts Stool Occult Blood Respiratory Panel [place] Adenovirus (Rapid PCR) B.pert (TEM-PCR) B.parapertussis DNA PCR C. pneumoniae DNA (PCR) Coronavirus OC43 (PCR) Coronavirus HKU1 (PCR) Coronavirus 229E (PCR) COVID-19 ([facility]) COVID-19 Clin Com Coronavirus NL63 (PCR) Human Metapneumovir PCR Influenza A (RT-PCR) Influenza A (H1) PCR Influ A (H1/09) PCR Influenza A (H3) PCR Influenza Type A (PCR) Influenza B (RT-PCR) Influenza Type B (PCR) M. pneumoniae (PCR) Parainfluenza 1 (PCR) Parainfluenza 2 (PCR) Parainfluenza 3 (PCR) Parainfluenza 4 (PCR) RSV (PCR) RSV RNA Qual (PCR) Entero/Rhino (PCR) SARS-CoV-2 RNA (RT-PCR) Assessment and Plan (1) CHF exacerbation: Status: Acute Plan 85F PMH chronic diastolic CHF, hypothyroid, mood disorder, diabetes, hypertension, DVT on Eliquis, ulcerative colitis presented with shortness of breath and hypoxia Acute hypoxic respiratory failure likely secondary to acute on chronic diastolic CHF IV Lasix, follow up echocardiogram Attempted to wean oxygen today but desaturated to mid 80s with respiratory distress, recovered on 3 L Possible component of pneumonia Continue ceftriaxone, follow up cultures Recent urinary tract infection Continue ceftriaxone, follow up cultures History of ulcerative colitis Imuran, budesonide Diabetes Insulin sliding scale Mood disorder Cymbalta History of DVT Eliquis Full code reason for continued hospitalization: Hypoxic Quality Stroke Does the patient have a stroke diagnosis?: No VTE Prior VTE?: Yes VTE Risk Level:: Medical - moderate - high VTE Device Contraindication: N/A - Device Ordered VTE Drug Contraindication: N/A - Med Ordered
[2025-05-13 12:16] LABS: Glucose, Whole Blood 100 mg/dL (60-115)
--- NOTE | 2025-05-13 15:09 | PC.NURSE ---
At approximately 1400, this RN was alerted by roll carrier that while removing cardiac monitoring leads Pt acquired a skin tear. Upon arrival to Pts bedside, R upper chest presents with skin tear consistent with the shape of a cardiac lead. Small amount of active bleeding noted. Pt complains of stinging to wound. Area cleansed with with NS and pat dry with sterile gauze and covered with non-adherent pad. Photo take and sent to Dr. Brooks. Orders received to leave non-adherent in place and wound care consult will be entered. Wound care evaluates Pt at bedside.
--- NOTE | 2025-05-13 15:12 | HO.WOUND ---
Wound Consult: Initial 85 yr old female admitted to [facility] on 05/12/25 - See progress notes and H&P for detailed history. Wound consult placed for skin tear to chest. Patient agreeable to assessment and photo documentation, seen in the ED. Patient with thin, fragile skin, reports skin tear to chest after echo lead removal. Patient also reports history of extensive wound to left knee after fall from wheelchair, reports she has followed with outpatient wound care, has used NPWT, skin subs. Right upper arm - skin tear with partial skin flap appears viable Right chest skin tear Etiology: skin tears Measurements: see assessment Wound Bed: moist pink/red Drainage / Odor: scant serosanguineous Edges: ? open [place] wound: ? No Induration, Fluctuance or Warmth noted- bruising Pain: mild pain with dressing change Goals of Treatment: ? xeroform for moist wound healing - skin prep fel[place]o wound for protection - foams applied due to locations, take care when removing due to fragile skin. right knee- healed injury no treatment required Left knee- nearly healed injury from fall from wheelchair- followed by wound care, small dry intact adherent scab remains- covered with protective foam per patient preference. Recommendations: 1. Turn and Reposition every 2 hours and as needed for patient comfort. Use pillows or wedges to support off loading positions. 2. Off Load all bony prominences with use of pillows and heel boots if needed. Apply Preventative foams where needed. 3. Monitor for incontinence and moisture control, use barrier creams when needed for prevention and treatment. 4. Provide adequate and supplemental nutrition. 5. Order or Continue low air loss mattress. 6. When applicable maintain blood glucose levels per Providers order. Right upper arm, right chest: cleanse with saline, apply skin prep feliciano wound, apply xeroform to wound bed, cover with foam, change daily and PRN Left knee: apply skin prep feliciano wound, apply foam dressing, change every 3 days and PRN Re-consult wound care Nurse for wound deterioration or wound changes.
--- NOTE | 2025-05-13 15:22 | HO.NURTONUR ---
85 yr old female admitted for CHF Exacerbation and possible pneumonia. Pt comes to ED with c/o SOB, noted to have desats. A&Ox3 VSS. Pt hypotensive this AM--metoprolol and lasix held. afebrile. Pt with multiple areas of healing wounds (bilat knees, RUE) from a fall [place] of her wheelchair [place] the community. Pt reports she was being seen the wound clinic for these. Today during Echo procedure, floor technician alters this RN that while removing a cardiac lead a skin tear occurred (see additional notes.) Wound care at bedside for eval. 20g RFA [place] and bedpan for toileting. 2L O2
--- NOTE | 2025-05-13 16:05 | MHC.CM.PN ---
IMM 05/13/25, Pt. was at [facility], she said her plan was to move to [facility] in [place] for LTC. She uses a W/C, can transfer with a walker, she said she does not walk much. PCP is Dr. Tatum, HCP is suze, she may change this to have her other dtr, Lashon on it. DCP: LTC at SNF. CM to follow for DC needs.
[2025-05-13] MEDS: Furosemide 40 MG/4 ML VIAL IVPUSH (17:10)
[2025-05-13 17:14] LABS: Glucose, Whole Blood 145 mg/dL (60-115)
[2025-05-13 20:27] LABS: Glucose, Whole Blood 142 mg/dL (60-115)
[2025-05-14] VITALS (10 sets, daily range): BP systolic 100–130; BP diastolic 49–62; PULSE 70–95; RESP 18–20; TEMP 36.3–36.9; O2SAT 92–97
[2025-05-14] MEDS: oxyCODONE HCl Immed Release 5 MG TABLET PO ×2 (00:10→23:06)
[2025-05-14 06:48] LABS: MANUAL DIFF FLAG NO
[2025-05-14 07:01] LABS: Hematocrit 25.6 % (37.0-47.0); Hemoglobin 7.6 g/dl (12.0-16.0); Imm Gran Abs Auto 0.04 X10*3/uL (0.00-0.03); Imm Gran Pct Auto 0.7 % (0.0-0.4); Lymphocytes Absolute Auto 0.7 X10*3/uL (1.2-4.9); Mean Corpuscular HGB Conc 29.7 g/dl (31.0-35.0); Mean Corpuscular Hemoglobin 22.0 pg (27.0-33.0); Mean Corpuscular Volume 74.0 fL (80.0-98.0); NRBC Abs Auto 0.000 X10*3/uL (0.0-0.012); NRBC Pct Auto 0.0 /100WBC (0.0-0.2); Platelet Count 425 X10*3/uL (160-400); Red Blood Count 3.46 X10*6/uL (4.20-5.50); White Blood Count 5.7 X10*3/uL (4.8-10.8)
[2025-05-14 07:52] LABS: Glucose, Whole Blood 89 mg/dL (60-115)
[2025-05-14 07:54] LABS: Alanine Aminotransferase < 6 U/L (0-31); Albumin Level 2.8 g/dL (3.5-5.0); Alkaline Phosphatase 78 U/L (39-117); Aspartate Amino Transferase 19 U/L (5-31); Blood Urea Nitrogen 17 mg/dL (9-16); Calcium 8.6 mg/dL (8.4-10.2); Creatinine Clr Calc Pharmacy 41.1; Estimated Glomerular Filt Rate 59; Total Protein 5.3 g/dL (6.5-8.0)
[2025-05-14 08:03] LABS: Anion Gap 12 (12-20); Carbon Dioxide 30 mmol/L (22-29); Chloride 102 mmol/L (96-108); Potassium 3.6 mmol/L (3.3-5.1); Sodium 140 mmol/L (135-145)
--- NOTE | 2025-05-14 10:50 | HO.PM.IMPN ---
Subjective Subjective Date of Service: 05/14/25 Interval History: weak, sob, but a bit better Physical Exam Exam: Exam: General: AO X 3, no acute distress Resp: CTA bilateral, no accessory muscles used CVS: S1,S2,RRR GI: soft, non tender, non distended Neuro: motor grossly intact, alert Psych: appropriate affect, appropriate insight Vital Signs: Vital Signs: Last Vital Signs Temp 97.6 F 05/14/25 08:00 Pulse 88 05/14/25 08:00 Resp 20 05/14/25 08:00 BP 110/57 L 05/14/25 08:00 Pulse Ox 93 05/14/25 08:00 O2 Del Method Nasal Cannula 05/14/25 08:00 O2 Flow Rate 1.5 05/14/25 08:00 BMI result Body Mass Index 28.9 Objective Data Active Medications Albuterol Sulfate (Albuterol Sulfate 90 Mcg 8 Gm Inhaler) 1 puff INHALE Q4H PRN PRN Reason: Shortness Of Breath Or Wheezing Apixaban (Apixaban 5 Mg Tablet) 5 mg PO BID [facility] Last Admin: 05/13/25 21:45 Dose: 5 mg Documented By: KAITY Atorvastatin Calcium (Atorvastatin Calcium 40 Mg Tablet) 40 mg PO BEDTIME [facility] Last Admin: 05/13/25 21:44 Dose: 40 mg Documented By: KAITY Azathioprine (Azathioprine 50 Mg Tablet) 50 mg PO BID [facility] Last Admin: 05/13/25 21:44 Dose: 50 mg Documented By: KAITY Bisacodyl (Bisacodyl 10 Mg Supp.Rect) 10 mg IN DAILY PRN PRN Reason: Constipation Budesonide (Budesonide Dr 3 Mg Capsule) 9 mg PO DAILY [facility] Last Admin: 05/13/25 10:04 Dose: 9 mg Documented By: ROBY Ceftriaxone Sodium (Ceftriaxone Sodium 1 Gm Vial) 1 gm IVPUSH Q24H [facility] Dextrose (Dextrose 50 % 25 Gm/50 Ml Syringe) 25 gm IVPUSH Q15M PRN; Protocol PRN Reason: per Hypoglycemia Standing Ord. Duloxetine HCl (Duloxetine Hcl 20 Mg Capsule.Dr) 20 mg PO BEDTIME [facility] Last Admin: 05/13/25 21:45 Dose: 20 mg Documented By: KAITY Furosemide (Furosemide 40 Mg/4 Ml Vial) 40 mg IVPUSH BID@0900,1800 [facility]; Protocol Last Admin: 05/13/25 17:10 Dose: 40 mg Documented By: PERCY Gabapentin (Gabapentin 300 Mg Capsule) 300 mg PO TID [facility] Last Admin: 05/13/25 21:45 Dose: 300 mg Documented By: KAITY Glucose (Glucose Gel 15 Gm Gel..Gram.) 15 gm PO Q15M PRN; Protocol PRN Reason: per Hypoglycemia Standing Ord. Insulin Human Lispro (Insulin Lispro 100 Unit/Ml 3 Ml Vial) 0 unit SUBCUT QIDACHS [facility]; Protocol Last Admin: 05/14/25 07:53 Dose: Not Given Documented By: MESFIN Non-Admin Reason: No Insulin Coverage Isosorbide Mononitrate (Isosorbide Mononitrate 30 Mg Tab.Er.24h) 30 mg PO BEDTIME [facility]; Protocol Last Admin: 05/13/25 21:45 Dose: 30 mg Documented By: KAITY Levothyroxine Sodium (Levothyroxine Sodium 50 Mcg Tablet) 50 mcg PO DAILY@0600 [facility] Last Admin: 05/14/25 05:54 Dose: 50 mcg Documented By: KAITY Magnesium Hydroxide (Milk Of Magnesia 30 Ml Oral.Susp) 30 ml PO DAILY PRN PRN Reason: Constipation Melatonin (Melatonin 3 Mg Tablet) 3 mg PO BEDTIME [facility] Last Admin: 05/13/25 21:44 Dose: 3 mg Documented By: KAITY Metoprolol Succinate (Metoprolol Succinate Er 25 Mg Tab.Er.24h) 25 mg PO DAILY [facility]; Protocol Last Admin: 05/13/25 08:11 Dose: Not Given Documented By: LES Non-Admin Reason: Decreased Blood Pressure Naloxone HCl (Naloxone Hcl Nasal 4 Mg [place]) 4 mg NOSTRILALT Q2M PRN PRN Reason: Opiate Reversal Nitroglycerin (Nitroglycerin 0.4 Mg Tab.Subl) 0.4 mg SUBLINGUAL Q5M PRN PRN Reason: Chest Pain Nystatin (Nystatin Powder 15 Gm Bottle) 1 appl TOPICAL DAILY [facility]; Protocol Last Admin: 05/13/25 08:16 Dose: Not Given Documented By: LES Non-Admin Reason: Patient Refused Oxycodone HCl (Oxycodone Hcl Immed Release 5 Mg Tablet) 5 mg PO Q6H PRN PRN Reason: Breakthrough Pain Last Admin: 05/14/25 00:10 Dose: 5 mg Documented By: KAITY Polyethylene Glycol (Polyethylene Glycol 3350 17 Gm Powd.Pack) 17 gm PO DAILY PRN PRN Reason: Constipation Ropinirole HCl (Ropinirole Hcl 0.5 Mg Tablet) 0.5 mg PO BEDTIME [facility] Last Admin: 05/13/25 21:45 Dose: 0.5 mg Documented By: KAITY Ropinirole HCl (Ropinirole Hcl 0.5 Mg Tablet) 0.5 mg PO TIDWM [facility] Last Admin: 05/13/25 17:10 Dose: 0.5 mg Documented By: PERCY Sodium Biphosphate/Sodium Phosphate (Sodium Phosphate,[place]-Dibasic 133 Ml Enema) 118 ml IN DAILY PRN PRN Reason: Constipation Trazodone HCl (Trazodone Hcl 50 Mg Tablet) 50 mg PO BEDTIME [facility] Last Admin: 05/13/25 21:45 Dose: 50 mg Documented By: KAITY Labs 05/14/25 06:43 05/14/25 06:43 Labs: Laboratory Results - last 24 hr 05/13/25 05/13/25 05/13/25 12:03 17:09 20:23 MCV MCH MCHC RDW Plt Count MPV Immature Gran % (Auto) Neut % (Auto) Lymph % (Auto) [place] % (Auto) Eos % (Auto) Baso % (Auto) Lymph # (Auto) [place] # (Auto) Eos # (Auto) Baso # (Auto) Abs Immat Gran (auto) Absolute Neuts (auto) Absolute Nucleated RBC Nucleated RBC % (auto) Anion Gap Estim Creat Clear Calc Estimated GFR POC Glucose 100 145 H 142 H Random Glucose Calcium Total Bilirubin AST ALT Alkaline Phosphatase Total Protein Albumin Blood Type Antibody Screen Crossmatch 05/14/25 05/14/25 05/14/25 06:43 07:40 07:45 MCV 74.0 L MCH 22.0 L MCHC 29.7 L RDW 20.2 H Plt Count 425 H MPV 9.1 L Immature Gran % (Auto) 0.7 H Neut % (Auto) 72.8 Lymph % (Auto) 12.2 L [place] % (Auto) 11.7 H Eos % (Auto) 2.1 Baso % (Auto) 0.5 Lymph # (Auto) 0.7 L [place] # (Auto) 0.7 Eos # (Auto) 0.1 Baso # (Auto) 0.0 Abs Immat Gran (auto) 0.04 H Absolute Neuts (auto) 4.1 Absolute Nucleated RBC 0.000 Nucleated RBC % (auto) 0.0 Anion Gap 12 Estim Creat Clear Calc 41.1 Estimated GFR 59 POC Glucose 89 Random Glucose 97 Calcium 8.6 Total Bilirubin 0.4 AST 19 ALT < 6 Alkaline Phosphatase 78 Total Protein 5.3 L Albumin 2.8 L Blood Type A Positive Antibody Screen NEGATIVE Crossmatch See Detail Microbiology Microbiology Results: Microbiology 05/12/25 12:28 Urine Culture - Final Urine clean catch - Clean Catch Midstream 05/12/25 10:46 Blood Culture - Preliminary Blood - Venous No growth after 24 hours. 05/12/25 10:37 Blood Culture - Preliminary Blood - Venous No growth after 24 hours. Assessment and Plan (1) CHF exacerbation: Status: Acute Plan 85F PMH chronic diastolic CHF, hypothyroid, mood disorder, diabetes, hypertension, DVT on Eliquis, ulcerative colitis presented with shortness of breath and hypoxia Acute hypoxic respiratory failure likely secondary to acute on chronic diastolic CHF IV Lasix continues to require 1.5L o2 Possible component of pneumonia Continue ceftriaxone Recent urinary tract infection Continue ceftriaxone urine culture mixed mo chronic blood loss anemia no overt bleed, continue eliquis will transfuse 1 unit prbc monitor History of ulcerative colitis Imuran, budesonide Diabetes Insulin sliding scale Mood disorder Cymbalta History of DVT Eliquis Full code reason for continued hospitalization: Hypoxic Quality Stroke Does the patient have a stroke diagnosis?: No VTE Prior VTE?: Yes VTE Risk Level:: Medical - moderate - high VTE Device Contraindication: N/A - Device Ordered VTE Drug Contraindication: N/A - Med Ordered
[2025-05-14] MEDS: Furosemide 40 MG/4 ML VIAL IVPUSH ×2 (10:57→17:42)
[2025-05-14] MEDS: Budesonide DR 3 MG Capsule 9 MG PO (10:57)
[2025-05-14] MEDS: Metoprolol Succinate ER 25 MG TAB.ER.24H PO (10:57)
[2025-05-14 11:39] LABS: Glucose, Whole Blood 167 mg/dL (60-115)
[2025-05-14 15:15] LABS: Glucose, Whole Blood 122 mg/dL (60-115)
[2025-05-14 20:39] LABS: Glucose, Whole Blood 154 mg/dL (60-115)
[2025-05-15 03:17] VITALS: BP 110/53; PULSE 93; RESP 18; TEMP 36.3
[2025-05-15 06:45] LABS: MANUAL DIFF FLAG NO
[2025-05-15 06:58] LABS: Hematocrit 29.8 % (37.0-47.0); Hemoglobin 9.1 g/dl (12.0-16.0); Imm Gran Abs Auto 0.04 X10*3/uL (0.00-0.03); Imm Gran Pct Auto 0.6 % (0.0-0.4); Lymphocytes Absolute Auto 1.1 X10*3/uL (1.2-4.9); Mean Corpuscular HGB Conc 30.5 g/dl (31.0-35.0); Mean Corpuscular Hemoglobin 22.6 pg (27.0-33.0); Mean Corpuscular Volume 73.9 fL (80.0-98.0); NRBC Abs Auto 0.000 X10*3/uL (0.0-0.012); NRBC Pct Auto 0.0 /100WBC (0.0-0.2); Platelet Count 486 X10*3/uL (160-400); Red Blood Count 4.03 X10*6/uL (4.20-5.50); White Blood Count 6.3 X10*3/uL (4.8-10.8)
[2025-05-15 07:08] LABS: Alanine Aminotransferase 6 U/L (0-31); Albumin Level 3.2 g/dL (3.5-5.0); Alkaline Phosphatase 86 U/L (39-117); Anion Gap 11 (12-20); Aspartate Amino Transferase 21 U/L (5-31); Blood Urea Nitrogen 23 mg/dL (9-16); Calcium 8.9 mg/dL (8.4-10.2); Carbon Dioxide 31 mmol/L (22-29); Chloride 101 mmol/L (96-108); Creatinine Clr Calc Pharmacy 35.3; Estimated Glomerular Filt Rate 49; Potassium 3.9 mmol/L (3.3-5.1); Sodium 139 mmol/L (135-145); Total Protein 6.1 g/dL (6.5-8.0)
[2025-05-15 07:22] LABS: Glucose, Whole Blood 120 mg/dL (60-115)
[2025-05-15 08:00] VITALS: BP 125/61; PULSE 85; RESP 20; O2SAT 92
[2025-05-15] MEDS: Budesonide DR 3 MG Capsule 9 MG PO (09:06)
[2025-05-15] MEDS: Metoprolol Succinate ER 25 MG TAB.ER.24H PO (09:07)
--- NOTE | 2025-05-15 11:14 | PM.DS ---
DS: Providers Provider Date of Service: 05/15/25 Date of admission: 05/12/25 12:13 Date of discharge: 05/15/25 Primary care physician: Mick Tatum MD Consults: 05/13/25 14:20 Consult to Wound Care Routine Consulting Provider: [facility] Wound Care Management Reason for consultation: skin tear, chest DS: Diagnosis Discharge Diagnosis (1) CHF exacerbation: Status: Acute DS: Summary Hospital Course Hospital Course: from initial hpi: 85-year-old female PMHx significant for CHF, HTN, DVT on Eliquis, and ulcerative colitis , significant deconditioning who is now bed/wheelchair bound presented from her long term after were noted to be SOB/BOUCHER with hypoxia down to the low 80s necessitating transferred to the ED via ambulance. Patient's son and daughter at the bedside giving more history. Patient denies fever chills or nausea, fever. Patient reports that she was supposed to be placed to long-term care tomorrow however this will likely have to be postponed. Patient reports that she had a UTI for which she was on Bactrim from Sunday. Patient had frailty and falls and had a very traumatic left knee injury back in December necessitating wound care, prolonged SNF placement. Patient reports having a nasty cough at the long term and kept getting worse and was noted to be severely hypoxic in the late evenings last night to the low 80s and the nurse at the SNF placed her on 2 L and was worried for her and transferred the patient to our ED. In our ED she was noted to have brisk improvement with some fluids, IV antibiotics and nebulizing treatment and steroids. She likely also has a component of COPD. Patient met SIRS criteria on admission with acute hypoxia, possible source of infection pneumonia necessitating IV fluids, IV antibiotics (likely failed outpatient antibiotics as the patient was on Bactrim for UTI) hence may not have objective evidence of infection. Patient is being admitted for the same. hospital course: Patient was admitted for acute hypoxic respiratory failure secondary to acute on chronic diastolic CHF. Was treated with IV Lasix and weaned to room air. On discharge we will continue low-salt diet and torsemide. There was a possible component of pneumonia and was treated with ceftriaxone. Treatment completed and we will not continue antibiotics on discharge. For recent urinary tract infection was covered with ceftriaxone, urine culture grew mixed mo. No need for further antibiotics on discharge. For chronic blood loss anemia patient had no signs of overt bleeding, was transfused 1 unit PRBC and hemoglobin improved appropriately. Was continued on Eliquis, should follow up with Gastroenterology outpatient for workup. On discharge will be started on p.o. iron. For history of ulcerative colitis was continued on Imuran and budesonide. For diabetes was continued on insulin sliding scale. For mood disorder continued on Cymbalta. For history of DVT continued on Eliquis. Patient will be discharged to halfway facility expected to require less than 30 days. Time Attestation Discharge Coordination Time (in mins): 33 Quality: Safe Use of Opioids Does Pt have an Active Cancer Diagnosis on the Problem List?: No Quality: Stroke Does the patient have a stroke diagnosis?: No Physical Exam Exam: Exam: General: AO X 3, no acute distress Resp: CTA bilateral, no accessory muscles used CVS: S1,S2,RRR GI: soft, non tender, non distended Neuro: motor grossly intact, alert Psych: appropriate affect, appropriate insight Vital Signs: Vital Signs: Last Vital Signs Temp 97.3 F 05/15/25 03:17 Pulse 85 05/15/25 08:00 Resp 20 05/15/25 08:00 BP 125/61 05/15/25 08:00 Pulse Ox 92 05/15/25 08:00 O2 Del Method Room Air 05/15/25 08:00 O2 Flow Rate 1.5 05/14/25 15:29 BMI result Body Mass Index 28.9 DS: Data Data Completed and Pending Labs on day of discharge: Laboratory Results - last 24 hr 05/14/25 05/14/25 05/14/25 07:45 11:30 15:12 WBC RBC Hgb Hct MCV MCH MCHC RDW Plt Count MPV Immature Gran % (Auto) Neut % (Auto) Lymph % (Auto) [place] % (Auto) Eos % (Auto) Baso % (Auto) Lymph # (Auto) [place] # (Auto) Eos # (Auto) Baso # (Auto) Abs Immat Gran (auto) Absolute Neuts (auto) Absolute Nucleated RBC Nucleated RBC % (auto) Sodium Potassium Chloride Carbon Dioxide Anion Gap BUN Creatinine Estim Creat Clear Calc Estimated GFR POC Glucose 167 H 122 H Random Glucose Calcium Total Bilirubin AST ALT Alkaline Phosphatase Total Protein Albumin Crossmatch See Detail 05/14/25 05/15/2525 20:34 06:40 07:19 WBC 6.3 RBC 4.03 L Hgb 9.1 L Hct 29.8 L MCV 73.9 L MCH 22.6 L MCHC 30.5 L RDW 20.7 H Plt Count 486 H MPV 9.0 L Immature Gran % (Auto) 0.6 H Neut % (Auto) 70.2 Lymph % (Auto) 16.6 L [place] % (Auto) 10.3 Eos % (Auto) 1.7 Baso % (Auto) 0.6 Lymph # (Auto) 1.1 L [place] # (Auto) 0.7 Eos # (Auto) 0.1 Baso # (Auto) 0.0 Abs Immat Gran (auto) 0.04 H Absolute Neuts (auto) 4.4 Absolute Nucleated RBC 0.000 Nucleated RBC % (auto) 0.0 Sodium 139 Potassium 3.9 Chloride 101 Carbon Dioxide 31 H Anion Gap 11 L BUN 23 H Creatinine 1.06 Estim Creat Clear Calc 35.3 Estimated GFR 49 POC Glucose 154 H 120 H Random Glucose 127 H Calcium 8.9 Total Bilirubin 0.4 AST 21 ALT 6 Alkaline Phosphatase 86 Total Protein 6.1 L Albumin 3.2 L Crossmatch Preliminary micro results at discharge 05/12/25 10:46 Blood Culture - Preliminary Blood - Venous No growth after 48 hours. 05/12/25 10:37 Blood Culture - Preliminary Blood - Venous No growth after 48 hours. Discharge Plan Discharge Anticipated Discharge Date/Time: 05/15/25 11:10 Patient Disposition: Xfer SNF Discharge Diagnosis: chf Referrals: [facility] [Other] - 1 Week Referral Note: STR w/transition to LTC Gareth Gerardo MD [Physician, Gastroenterology] - 1 Week Referral Note: anemia, on Mick Garcia MD [Primary Care Provider, Internal Medicine] - 1 Week Discharge Medications: New ferrous sulfate 325 mg (65 mg iron) tablet 325 mg PO DAILY Qty: 90 0RF Continued atorvastatin 40 mg tablet 1 tab PO BEDTIME metformin 500 mg tablet 500 mg PO DAILY acetaminophen 325 mg Tablet 650 mg PO Q4H MDD 3g/24h PRN (Reason: Pain) acetaminophen 325 mg Tablet 650 mg PO Q6H MDD 3g/24h PRN (Reason: Fever) torsemide 20 mg Tablet 20 mg PO DAILY trazodone 50 mg Tablet 50 mg PO BEDTIME dextrose 40 % Gel 10 g PO Q15M PRN (Reason: Hypoglycemia) Rx Instructions: until symptoms of low blood sugar are controlled azathioprine 50 mg tablet 50 mg PO BID melatonin 3 mg Tablet 3 mg PO BEDTIME magnesium hydroxide [Milk of Magnesia] 400 mg/5 mL Suspension 30 ml PO DAILY PRN (Reason: Constipation) Rx Instructions: If no BM in 3 days levothyroxine 50 mcg Tablet 50 mcg PO DAILY bisacodyl [Dulcolax (bisacodyl)] 10 mg Suppository 10 mg HI DAILY PRN (Reason: Constipation) Rx Instructions: If no result from M.O.M ropinirole 0.5 mg tablet 0.5 mg PO TID Fleet Enema 19-7 gram/118 mL Enema 118 ml HI DAILY PRN (Reason: Constipation) Rx Instructions: If no result from Dulcolax nystatin 100,000 unit/gram Powder 1 appl TOPICAL DAILY Rx Instructions: apply to under breasts polyethylene glycol 3350 [Miralax] 17 gram/dose Powder 17 g PO DAILY PRN (Reason: Constipation) Rx Instructions: If no BM in 3 days albuterol sulfate [Ventolin HFA] 90 mcg/actuation Hfa Aerosol Inhaler 1 puff INHALATION Q4H PRN (Reason: Shortness Of Breath Or Wheezing) oxycodone 5 mg Tablet 2.5 mg PO Q6H PRN (Reason: Pain) insulin lispro [Humalog KwikPen Insulin] 100 unit/mL Insulin Pen See Protocol SUBCUT TID Protocol: Insulin Correction Scale Less than or equal to 110 ---- Give (units): 0 111 to 150 Give (units): 0 151 to 200 Give (units): 2 201 to 250 Give (units): 4 251 to 300 Give (units): 6 301 to 350 Give (units): 8 Greater than 350 Give (units): 10 Call MD if Blood Glucose > : 350 diclofenac sodium 1 % Gel 2 g TOPICAL Q6H Rx Instructions: apply to single elbow, wrist or hand; for hand includes palm/fingers/back of hand melatonin 5 mg Tablet 5 mg PO BEDTIME PRN (Reason: Sleep) naloxone 4 mg/actuation [place],Non-Aerosol 4 mg INTRANASAL Q2M PRN (Reason: Opiate Reversal) Rx Instructions: spray 1 dose into ONE nostril; alternate nostrils w each dose until help arrives glucagon HCl [Glucagon (HCl) Emergency Kit] 1 mg Recon Soln 1 mg SUBCUT Q20M PRN (Reason: Hypoglycemia) Rx Instructions: until target blood sugar attained duloxetine 20 mg Capsule,Delayed Release(Dr/Ec) 20 mg PO BEDTIME nitroglycerin 0.4 mg Tablet, Sublingual 0.4 mg SUBLINGUAL Q5M MDD 3 doses PRN (Reason: Chest Pain) Rx Instructions: do not exceed 3 doses per episode metoprolol succinate 25 mg tablet extended release 24 hr 25 mg PO DAILY gabapentin 300 mg capsule 300 mg PO TID isosorbide mononitrate 30 mg tablet extended release 24 hr 30 mg PO BEDTIME ropinirole 0.5 mg tablet 0.5 mg PO BEDTIME Eliquis 5 mg tablet 5 mg PO BID dapagliflozin propanediol [Farxiga] 10 mg tablet 10 mg PO DAILY (DME) blood pressure test kit-wrist Kit See Rx Instructions .Route Qty: 1 0RF Rx Instructions: As directed budesonide 3 mg capsule,delayed,extend.release 9 mg PO DAILY Qty: 270 3RF Discontinued sulfamethoxazole-trimethoprim [Bactrim DS] 800-160 mg Tablet 1 tab PO Q12H PRN (Reason: Pain) Rx Instructions: End date 05/15/25 Discharge Orders: Discharge Order (Routine); Ordered 05/15/25 Ordered By: Joe Brooks Diet: Advance to usual diet Activity on Discharge: As tolerated Stand Alone Forms: Patient Portal Discharge page Print Language: Tamazight Care Plan Goals: recovery Health Concerns: chf, anemia Plan of Treatment: continue low salt diet, torsemide, monitor weights, follow up with cardiology continue eliquis, will start po iron, follow up with GI Assessment: see above
--- NOTE | 2025-05-15 11:16 | MHC.CM.PN ---
PT MEDICALLY CLEARED FOR DC TO [facility] FOR STR W/TRANSITION TO LTC, CM ATTEMPTED TO CONTYACT PT'S DTR DAVID AT [phone], NO ANSWER AND DETAILED MESSAGE LEFT, CM RECEIVED CALL BACK FROM DTR DONY WHO REPORTS SHE IS NOW HCP (COPY REQUESTED), DONY AGREEABLE TO 3PM DC, [facility] FOR BLS TRANSPORT
[2025-05-15 11:45] LABS: Glucose, Whole Blood 197 mg/dL (60-115)
[2025-05-15 12:00] VITALS: BP 129/60; PULSE 72; RESP 17; TEMP 36.5; O2SAT 90
== END 2025-05-15 15:37 | disposition skilled nursing facility (03) | DRG 291 ==
LOC: HO.ED 11:38 → HO.EDOVER 12:27 → HO.IMC 05-13 14:59
PROVIDERS: Admitting Provider Student in an Organized Health Care Education/Training Program; Emergency Provider Emergency Medicine; PCP Family Medicine; Visit Provider Internal Medicine
DX: I11.0 Hypertensive heart disease with heart failure (principal); I50.33 Acute on chronic diastolic (congestive) heart failure; J18.9 Pneumonia, unspecified organism; J96.01 Acute respiratory failure with hypoxia; K51.90 Ulcerative colitis, unspecified, without complications; D84.821 Immunodeficiency due to drugs; N39.0 Urinary tract infection, site not specified; J44.0 Chronic obstructive pulmonary disease with (acute) lower respiratory infection; E03.9 Hypothyroidism, unspecified; E87.6 Hypokalemia; R15.9 Full incontinence of feces; R32 Unspecified urinary incontinence; D50.0 Iron deficiency anemia secondary to blood loss (chronic); E11.9 Type 2 diabetes mellitus without complications; Z20.822 Contact with and (suspected) exposure to COVID-19; Z86.718 Personal history of other venous thrombosis and embolism; Z99.3 Dependence on wheelchair; Z79.4 Long term (current) use of insulin; Z79.01 Long term (current) use of anticoagulants; Z79.84 Long term (current) use of oral hypoglycemic drugs; Z79.69 Long term (current) use of other immunomodulators and immunosuppressants; Z79.890 Hormone replacement therapy; Z79.899 Other long term (current) drug therapy
CPT/HCPCS: 36415; 71045; 80048; 80053; 80076; 81001; 82272; 82728; 82947; 83036; 83540; 83605; 83690; 83880; 84484; 85025; 85610; 86850; 86900; 86901; 86923; 87040; 87086; 87633; 87635; 87637; 93005; 93306; 94640; 97162; 99285; J0696; J1938; J2543; J3374; J3480; P9016

== ENCOUNTER → 2025-05-12 10:00 | Outpatient (BNV) | payer MEDICARE, SELFPAY | PROVIDERS: Admitting Provider Student in an Organized Health Care Education/Training Program; Emergency Provider Emergency Medicine; PCP Family Medicine; Visit Provider Internal Medicine Cardiovascular Disease | DX: I44.0 Atrioventricular block, first degree (principal) | CPT/HCPCS: 93010 ==

== ENCOUNTER → 2025-05-12 10:00 | Outpatient (BNV) | payer MEDICARE, SELFPAY | PROVIDERS: Emergency Provider Emergency Medicine; PCP Family Medicine; Visit Provider Radiology Diagnostic Radiology | DX: J81.1 Chronic pulmonary edema (principal) | CPT/HCPCS: 71045 ==

== ENCOUNTER 2025-05-12 12:13 | Outpatient (BNV) | payer MEDICARE, SELFPAY | END 2025-05-13 07:00 | PROVIDERS: Admitting Provider Student in an Organized Health Care Education/Training Program; Emergency Provider Emergency Medicine; PCP Family Medicine; Visit Provider Internal Medicine Cardiovascular Disease | DX: I35.0 Nonrheumatic aortic (valve) stenosis (principal); I51.7 Cardiomegaly; I51.89 Other ill-defined heart diseases | CPT/HCPCS: 93306 ==

== ENCOUNTER → 2025-05-12 12:13 | Outpatient (BNV) | payer MEDICARE, SELFPAY | PROVIDERS: Admitting Provider Student in an Organized Health Care Education/Training Program; Emergency Provider Emergency Medicine; PCP Family Medicine; Visit Provider Student in an Organized Health Care Education/Training Program | DX: R09.02 Hypoxemia (principal) | CPT/HCPCS: 99223; 99233 ==

== ENCOUNTER 2025-06-01 21:58 | Inpatient (IN) | payer MEDICARE, SELFPAY ==
--- NOTE | ~2025-06-01 | XR_ITS ---
CLINICAL HISTORY: cough, fever 1 view chest x-ray Comparison: Chest x-ray from 05/12/2025. Findings: Relative improved aeration of the both lungs. Bibasilar pulmonary opacities persists or may be recurrent. Differential considerations include pneumonitis/pneumonia particularly in the left lower lobe. Mild emphysematous changes noted. Imaged mediastinum appears unchanged. Right AC joint widening redemonstrated in the may be postprocedural. No definite pneumothorax. Question small left pleural effusion. IMPRESSION: Bilateral pulmonary opacities nonspecific concerning for pneumonitis/pneumonia. Please consider attention on follow-up to ensure resolution. This document has been electronically signed by: Aravind Levi MD on 06/01/2025 23:36:46
[2025-06-01 22:00] VITALS: BP 111/50; BP 142/90; PULSE 97; PULSE 98; RESP 20; TEMP 38.4; O2SAT 93; O2SAT 95; BMI 27.2
--- NOTE | 2025-06-01 22:22 | ECG_ITS ---
Test Reason : SOB Blood Pressure : */* mmHG Vent. Rate : 84 BPM Atrial Rate : 84 BPM P-R Int : 174 ms QRS Dur : 96 ms QT Int : 422 ms P-R-T Axes : 31 -37 21 degrees QTcB Int : 498 ms Normal sinus rhythm Left axis deviation Minimal voltage criteria for LVH, may be normal variant ( Holliday product ) Nonspecific T wave abnormality Prolonged QT Abnormal ECG When compared with ECG of 12-May-2025 10:18, UT interval has decreased Nonspecific T wave abnormality, worse in Lateral leads Referred By: Joann Rios Electronically Signed By: JESSICA SANDOVAL MD
[2025-06-01 22:41] LABS: Hematocrit 35.8 % (37.0-47.0); Hemoglobin 10.7 g/dl (12.0-16.0); Imm Gran Abs Auto 0.18 X10*3/uL (0.00-0.03); Imm Gran Pct Auto 1.0 % (0.0-0.4); Lymphocytes Absolute Auto 1.5 X10*3/uL (1.2-4.9); MANUAL DIFF FLAG SCAN; Mean Corpuscular HGB Conc 29.9 g/dl (31.0-35.0); Mean Corpuscular Hemoglobin 22.9 pg (27.0-33.0); Mean Corpuscular Volume 76.5 fL (80.0-98.0); NRBC Abs Auto 0.000 X10*3/uL (0.0-0.012); NRBC Pct Auto 0.0 /100WBC (0.0-0.2); Platelet Count 540 X10*3/uL (160-400); Red Blood Count 4.68 X10*6/uL (4.20-5.50); SCAN SMEAR FLAG 1; White Blood Count 18.9 X10*3/uL (4.8-10.8)
[2025-06-01 22:44] LABS: VBG HCO3 27 mmol/L (22-26); VBG O2 % Saturation 83.0 %
[2025-06-01 22:45] LABS: Venous Blood Gas Refer to POC result
[2025-06-01 23:14] VITALS: O2SAT 95
[2025-06-01 23:19] LABS: Resp Syncy Virus RNA Qual PCR NEGATIVE (Negative); SARS COV2 PCR INHOUSE NEGATIVE (Negative)
[2025-06-01 23:21] LABS: Troponin-I High Sensitivity 17.7 ng/L (<3.5-17.0)
--- NOTE | 2025-06-01 23:30 | PC.NURSE ---
This advertising copy writer assumed care of this Pt at 2300.
--- OUTSIDE RECORDS SUMMARY | 2025-06-01 23:30 | XMS_ITS ---
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 Name Role Phone Dewey Cope Unavailable Unavailable Gary Gore Unavailable Unavailable Toshia French Unavailable Unavailable Allergies and adverse reactions Code CodeSystem Substance Reaction Severity StartDate Concern Status Barium Acute urticaria (code- 041733288, SNOMED CT) Moderate 02/11/2024 active Cats and Dogs Accidental demetrio nt (code- 036574513, SNOMED CT) Mild 02/11/2024 active Care Team Name Role Address Phone Organization Dates Gary Gore PCP [address], [place], [address], [place] (Office): : [facility] 02/11/2024 - 04/09/2024 Dewey Cope [address], [place], [address], [place] (Office): : : [facility] 02/11/2024 - 04/09/2024 Toshia French [place], [place], [facility] 02/11/2024 - 04/09/2024 Mental Status Section Date Assessment Total Score Description 04/09/2024 BIMS 13 cognitively int act CAM 0 No delirium ind icated PHQ-9 00 03/08/2024 BIMS 12 moderate cognit lolie impairment PHQ-9 00 Insurance Providers Problems Problem # Description Date of onset Resolved Date Code CodeSystem Concern Status 1 ANEMIA, UNSPECIFIED [address] active 2 CHRONIC VENOUS HYPERTENSION (IDIOPATHIC) WITH ULCER OF LEFT LOWER EXTREMITY [address] active 3 CONSTIPATION, UNSPECIFIED [address] active 4 ESSENTIAL (PRIMARY) HYPERTENSION [address] active 5 HYPERLIPIDEMIA, UNSPECIFIED [address] active 6 IMMUNODEFICIENCY, UNSPECIFIED [address] active 7 INTRASPINAL ABSCESS AND GRANULOMA [address] active 8 LACERATION WITHOUT FOREIGN BODY, LEFT KNEE, SUBSEQUENT ENCOUNTER [address] active 9 MAJOR DEPRESSIVE DISORDER, RECURRENT, UNSPECIFIED [address] active 10 MORBID (SEVERE) OBESITY DUE TO EXCESS CALORIES [address] active 11 OTHER ABNORMAL GLUCOSE [address] active 12 OTHER LACK OF COORDINATION [address] active 13 PARKINSON'S DISEASE WITH DYSKINESIA, WITH FLUCTUATIONS [address] active 14 RESTLESS LEGS SYNDROME [address] active 15 ULCERATIVE COLITIS, UNSPECIFIED, WITHOUT COMPLICATIONS [address] active 16 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 FAILURE [address] active 17 UNSPECIFIED FALL, SUBSEQUENT ENCOUNTER [address] active [address] active Reason for Referral No Reasons for Referral Entered Social History Social History Observation Description Start Date End Date Code Code System Current Smoking Status Tobacco smoking consumption unknown 005866833 SNOMED CT Sex Assigned At Female 1940 85519-6 [facility] Gender Identity Sexual Orientation Vital Signs Code Code System Vitals Name Values and Units Timing Information 45570-1 [facility] Pain Level Value=0.0 04/09/2024 8867-4 [facility] Heart rate Value=60.0 Units=/min 68528-5 [facility] O2 % [facility] Oximetry Value=94.0 Units= % 04/09/2024 9279-1 [facility] Respiratory Rate Value=18.0 Units=/m in 04/09/2024 8462-4 [facility] Blood Pressure-Diastolic Value=67 Un its=mmHg 04/09/2024 8480-6 [facility] Blood Pressure-Systolic Ultsm=149 Un its=mmHg 04/09/2024 8310-5 [facility] Body Temperature Value=97.6 Units= F 04/09/2024 32844-5 [facility] Weight Uuujq=056.2 Units=Lbs 09/2023 8302-2 [facility] Height Value=60.0 Units=Inches 02/12/2024
[2025-06-02] VITALS (18 sets, daily range): BP systolic 90–167; BP diastolic 47–85; PULSE 81–104; RESP 13–34; TEMP 36.2–37.9; O2SAT 89–99; BMI 26.8
[2025-06-02 00:38] LABS: Reflex Lactate? Lactic Acid Added
[2025-06-02 00:59] LABS: Alanine Aminotransferase < 6 U/L (0-31); Albumin Level 2.8 g/dL (3.5-5.0); Alkaline Phosphatase 89 U/L (39-117); Anion Gap 17 (12-20); Aspartate Amino Transferase 25 U/L (5-31); Blood Urea Nitrogen 27 mg/dL (9-16); Calcium 8.4 mg/dL (8.4-10.2); Carbon Dioxide 27 mmol/L (22-29); Chloride 103 mmol/L (96-108); Creatinine Clr Calc Pharmacy 27.4; Estimated Glomerular Filt Rate 35; Potassium 3.9 mmol/L (3.3-5.1); Sodium 143 mmol/L (135-145); Total Protein 5.7 g/dL (6.5-8.0)
[2025-06-02 01:42] LABS: ~Lactic Acid-LAB USE ONLY 3.9 mmol/L (0.5-2.0)
--- NOTE | 2025-06-02 02:32 | ED.URI ---
HPI - URI/Sore Throat General Chief Complaint: Upper Respiratory Symptoms Stated Complaint: non productive cough x1 week Time Seen by Provider: 06/01/25 22:16 Source: patient, family and EMS Mode of arrival: EMS Limitations: no limitations History of Present Illness ED Provider: Dr. Joann Rios HPI Narrative: Patient comes to the emergency room from a care home facility. According to the staff, patient has been complaining of cough for about a week, nonproductive, they noticed that patient's oxygen saturation was in the 80s today. Patient reports chills. No nausea vomiting or diarrhea. Patient reporting mild shortness of breath. Patient states that overall she feels very weak and unwell Related Data Home Medications ?Medication ?Instructions ?Recorded ?Confirmed apixaban 5 mg tablet (Eliquis) 5 mg PO BID 12/02/20 05/12/25 atorvastatin 40 mg tablet 1 tab PO BEDTIME 05/11/21 05/12/25 duloxetine 20 mg capsule,delayed 20 mg PO BEDTIME 02/09/24 05/12/25 release nitroglycerin 0.4 mg sublingual 0.4 mg sublingual Q5M PRN Chest 02/09/24 05/12/25 tablet Pain metoprolol succinate 25 mg 25 mg PO DAILY 05/28/24 05/12/25 tablet,extended release 24 hr dapagliflozin propanediol 10 mg 10 mg PO DAILY 11/13/24 05/12/25 tablet (Farxiga) gabapentin 300 mg capsule 300 mg PO TID 11/23/24 05/12/25 isosorbide mononitrate 30 mg 30 mg PO BEDTIME 11/23/24 05/12/25 tablet,extended release 24 hr ropinirole 0.5 mg tablet 0.5 mg PO BEDTIME 11/23/24 05/12/25 acetaminophen 325 mg tablet 650 mg PO Q4H PRN Pain 05/12/25 05/12/25 acetaminophen 325 mg tablet 650 mg PO Q6H PRN Fever 05/12/25 05/12/25 albuterol sulfate 90 mcg/actuation 1 puff inhalation Q4H PRN 05/12/25 05/12/25 aerosol inhaler (Ventolin HFA) Shortness Of Breath Or Wheezing azathioprine 50 mg tablet 50 mg PO BID 05/12/25 05/12/25 bisacodyl 10 mg rectal suppository 10 mg ME DAILY PRN Constipation 05/12/25 05/12/25 (Dulcolax (bisacodyl)) dextrose 40 % oral gel 10 g PO Q15M PRN Hypoglycemia 05/12/25 05/12/25 diclofenac sodium 1 % topical gel 2 g topical Q6H 05/12/25 05/12/25 glucagon HCl 1 mg solution for 1 mg subcut Q20M PRN Hypoglycemia 05/12/25 05/12/25 injection (Glucagon (HCl) Emergency Kit) insulin lispro 100 unit/mL See Protocol subcut TID 05/12/25 05/12/25 subcutaneous pen (Humalog KwikPen (U-100) Insulin) levothyroxine 50 mcg tablet 50 mcg PO DAILY 05/12/25 05/12/25 magnesium hydroxide 400 mg/5 mL 30 ml PO DAILY PRN Constipation 05/12/25 05/12/25 oral suspension (Milk of Magnesia) melatonin 3 mg tablet 3 mg PO BEDTIME 05/12/25 05/12/25 melatonin 5 mg tablet 5 mg PO BEDTIME PRN Sleep 05/12/25 05/12/25 metformin 500 mg tablet 500 mg PO DAILY 05/12/25 05/12/25 naloxone 4 mg/actuation nasal spray 4 mg intranasal Q2M PRN Opiate 05/12/25 05/12/25 Reversal nystatin 100,000 unit/gram topical 1 appl topical DAILY 05/12/25 05/12/25 powder oxycodone 5 mg tablet 2.5 mg PO Q6H PRN Pain 05/12/25 05/12/25 polyethylene glycol 3350 17 17 g PO DAILY PRN Constipation 05/12/25 05/12/25 gram/dose oral powder (Miralax) ropinirole 0.5 mg tablet 0.5 mg PO TID 05/12/25 05/12/25 sodium phosphates 19 gram-7 118 ml ME DAILY PRN Constipation 05/12/25 05/12/25 gram/118 mL enema (Fleet Enema) torsemide 20 mg tablet 20 mg PO DAILY 05/12/25 05/12/25 trazodone 50 mg tablet 50 mg PO BEDTIME Sleep 05/12/25 05/12/25 Previous Rx's ?Medication ?Instructions ?Recorded blood pressure test kit-wrist #1 ea 04/24/25 budesonide 3 mg 9 mg (3 x 3 mg) PO DAILY #270 caps 01/14/25 capsule,delayed,extended release ferrous sulfate 325 mg (65 mg 325 mg PO DAILY #90 tabs 05/15/25 iron) tablet Allergies Allergy/AdvReac Type Severity Reaction Status Date / Time barium Allergy Unknown Hives Uncoded 06/01/25 22:06 dogs, cats etc.. Allergy Unknown Unknown Uncoded 06/01/25 22:06 Review of Systems Review of Systems: Constitutional : No Weight loss, complaining of fever and chills, fatigue and generalized malaise ENT/Mouth : No Hearing loss, No Ear Pain, No Nasal Congestion, No Sinus Pain, No Hoarseness, No sore throat, No Rhinorrhea, No Swallowing Difficulty Eyes: No Eye Pain, No Swelling, No Redness, No Foreign Body, No Discharge, No Vision Changes Cardiovascular : No Chest Pain, no edema, no palpitations Respiratory : Complaining of cough, no wheezing, complaining of shortness of breath Gastrointestinal : No Nausea, No Vomiting, No Diarrhea, No Constipation, No abdominal Pain, No Hematochezia, No Melena Genitourinary : no irregular bleeding, No Dysuria, No Urinary Frequency, No Hematuria, No Urinary Incontinence, No Urgency, No Flank Pain, No Urinary Flow Changes, No Hesitancy Musculoskeletal : No joint pain, No Myalgias, No Joint Swelling Skin : No Skin Lesions, No rash Neuro : No Weakness, No Numbness, No Paresthesias, No Loss of Consciousness, No Dizziness, No Headache Psych : No Anxiety/Panic, No Depression, No SI/HI/AH/VH, No Social Issues, Heme/Lymph: No Bruising, No Bleeding,No Lymphadenopathy Endocrine : No Polyuria, No Polydipsia, No Temperature Intolerance [facility] Past Medical History Medical History Diverticulitis History of acute respiratory failure Diarrhea History of CHF (congestive heart failure) Constipation Acute proctitis Hemorrhoids Spinal abscess Restless leg syndrome HTN (hypertension) Pre-diabetes DVT (deep venous thrombosis) Colitis Ulcerative colitis Surgical History Hx of shoulder surgery Social History Social History Household Members: Children Household Members Other:: son Housing: House Alcohol intake: former Patient Tobacco Use Status: Never used Tobacco Advance Directives: Yes Advance Directives on File: Yes Advance Directives Date on File: 11/16/22 service: No Current occupational status: retired Physical Exam Exam: Exam: Appearance: Alert. Oriented X3. Seems tired, fatigue, unwell Eyes: Pupils equal, round and reactive to light. ENT: Pharynx normal. Neck: Normal inspection. Neck supple. No lymph nodes noted. No crepitus CVS: Normal heart rate and rhythm. Pulses normal. Normal S1 and S2 Respiratory: No respiratory distress. The patient arrives on 3 L. Without oxygen, O2 drops to the mid 80s. Bilateral diffuse rhonchi, no rales or crackles, no wheezing. Abdomen: Soft and nontender. No rigidity. No distention. Skin: Skin warm and dry. Normal skin color. Normal skin turgor. Extremities: Trace pitting edema in bilateral lower extremity edema. No Lacerations. No Rash Neuro: Oriented X 3. No motor deficit. No sensory deficit. Moving all extremities. No slurred speech. CN 2 through 12 grossly intact Psych: calm, cooperative, normal affect Vital Signs: Vital Signs: Last Vital Signs Temp 99.0 F 06/02/25 03:13 Pulse 88 06/02/25 03:13 Resp 24 H 06/02/25 03:13 BP 114/48 L 06/02/25 03:13 Pulse Ox 96 06/02/25 03:13 O2 Del Method Nasal Cannula 06/02/25 03:13 O2 Flow Rate 3 06/02/25 02:13 Oxygen Flow Rate 3 06/01/25 23:14 BMI result Body Mass Index 27.2 Course Course Course Narrative: Patient has been coughing for almost a week. Patient's blood pressure steady. Patient was recently discharged from the hospital, proximally 2-1/2 weeks ago, patient recuperating from CHF exacerbation. Patient is empirically being treated with IV antibiotics., sepsis is not suspected. A bolus of fluids is not indicated at this time, 22:32 Medications Administered Generic Name Dose Route Start Last Admin Trade Name Freq PRN Reason Stop Dose Admin Sodium Chloride 500 mls @ 250 mls/hr 06/02/25 02:29 06/02/25 02:56 Ns IVCONT 06/02/25 04:28 250 mls/hr .Q2H ONE Administration Discontinued Medications Generic Name Dose Route Start Last Admin Trade Name Dayami PRN Reason Stop Dose Admin Ceftriaxone Sodium 1 gm/ 50 mls @ 100 mls/hr 06/01/25 22:32 06/01/25 23:13 Sodium Chloride IV 06/01/25 23:01 Infused ONCE ONE Infusion Azithromycin 500 mg/ Sodium 250 mls @ 125 mls/hr 06/01/25 22:32 06/02/25 01:00 Chloride IV 06/02/25 00:31 Infused ONCE ONE Infusion Medical Decision Making Medical Decision Making [facility] Narrative: My interpretation of EKG: Normal sinus rhythm, heart rate 84, no ST segment depression or elevation, nonspecific T-wave inversion in lead 3, QTC 498 Chest x-ray: Bilateral pulmonary opacities My interpretation of labs: Patient's white blood cell count 18.9. Patient's creatinine is 1.43. Patient admits that she has not been drinking fluids at the care home facility, because she has not been feeling well. Patient has been covered with antibiotics. However, patient is recovering from a recent CHF exacerbation At this time, 02:26, we got the 2nd set of lactic acid back. Not quite 4.0. Severe sepsis is not suspected However, the Patient empirically is getting fluids, 500 cc at 250 mL/hour. Patient already received IV antibiotics Patient has not had any events of hypotension. LFTs within normal limits. Patient has not needed CPAP/BiPAP. Creatinine slightly bumped secondary to decreased p.o. intake We will be very cautious with fluids, patient has history of a fairly recent CHF exacerbation Pro BNP level still pending I discussed the patient with Dr. Ovalle, patient being admitted Differential Diagnosis Differential Diagnoses: The differential diagnosis associated with the presentation includes (Pneumonia, viral URI, CHF exacerbation) Admission/Observation Consideration of admission/observation: Escalation of care including admission/observation considered Consult Healthcare Provider Management of the patient was discussed with: Hospitalist Lab Data [facility] Lab Attestation statement: I reviewed the patient's lab results. 06/01/25 22:28 06/02/25 00:36 Labs: Lab Results 06/01/25 06/02/25 06/02/25 Range/Units 22:28 00:36 01:16 WBC 18.9 H (4.8-10.8) X10*3/uL RBC 4.68 (4.20-5.50) X10*6/uL Hgb 10.7 L (12.0-16.0) g/dl Hct 35.8 L D (37.0-47.0) % MCV 76.5 L (80.0-98.0) fL MCH 22.9 L (27.0-33.0) pg MCHC 29.9 L (31.0-35.0) g/dl RDW 24.9 H (11.0-16.0) % Plt Count 540 H (160-400) X10*3/uL MPV 9.4 (9.4-12.3) fL Immature Gran % (Auto) 1.0 H (0.0-0.4) % Neut % (Auto) 82.6 H (45-73) % Lymph % (Auto) 8.1 L (20-40) % Frederick % (Auto) 8.0 (2-11) % Eos % (Auto) 0.0 (0-4) % Baso % (Auto) 0.3 (0-2) % Lymph # (Auto) 1.5 (1.2-4.9) X10*3/uL Frederick # (Auto) 1.5 H (0.1-1.2) X10*3/uL Eos # (Auto) 0.0 (0.0-0.4) X10*3/uL Baso # (Auto) 0.1 (0.0-0.2) X10*3/uL Abs Immat Gran (auto) 0.18 H (0.00-0.03) X10*3/uL Absolute Neuts (auto) 15.6 H (2.0-8.3) x10*3/uL Absolute Nucleated RBC 0.000 (0.0-0.012) X10*3/uL Nucleated RBC % (auto) 0.0 (0.0-0.2) /100WBC Smear Tech's Comments VERIFIED VBG pH 7.51 H (7.32-7.43) VBG pCO2 34 mmHg VBG pO2 71 mmHg VBG HCO3 27 H (22-26) mmol/L VBG O2 Saturation 83.0 % VBG Base Excess 5.1 mmol/L Sodium 143 (135-145) mmol/L Potassium 3.9 (3.3-5.1) mmol/L Chloride 103 (96-108) mmol/L Carbon Dioxide 27 (22-29) mmol/L Anion Gap 17 (12-20) BUN 27 H (9-16) mg/dL Creatinine 1.43 H (0.5-1.4) mg/dL Estim Creat Clear Calc 27.4 Estimated GFR 35 Random Glucose 142 H (60-115) mg/dL Lactic Acid 3.6 H* (0.5-2.0) mmol/L Lactic Acid F/U @ 2Hr 3.9 H* (0.5-2.0) mmol/L Calcium 8.4 (8.4-10.2) mg/dL Total Bilirubin 0.5 (0.0-1.0) mg/dL Direct Bilirubin 0.3 (0.0-0.5) mg/dL AST 25 (5-31) U/L ALT < 6 (0-31) U/L Alkaline Phosphatase 89 (39-117) U/L Troponin I High Sens 17.7 H D (<3.5-17.0) ng/L Total Protein 5.7 L (6.5-8.0) g/dL Albumin 2.8 L (3.5-5.0) g/dL Influenza Type A (PCR) NEGATIVE (Negative) Influenza Type B (PCR) NEGATIVE (Negative) RSV RNA Qual (PCR) NEGATIVE (Negative) SARS-CoV-2 RNA (RT-PCR) NEGATIVE (Negative) Independent Interpretation I performed an independent interpretation of an: EKG and Plain X-Ray Radiology Impression Discussion of test interpretation with radiology: I have reviewed the radiologist's reading. Radiologist Impression: Relative improved aeration of the both lungs. Bibasilar pulmonary opacities persists or may be recurrent. Differential considerations include pneumonitis/pneumonia particularly in the left lower lobe. Mild emphysematous changes noted. Imaged mediastinum appears unchanged. Right AC joint widening redemonstrated in the may be postprocedural. No definite pneumothorax. Question small left pleural effusion. IMPRESSION: Bilateral pulmonary opacities nonspecific concerning for pneumonitis/pneumonia. Please consider attention on follow-up to ensure resolution. Chronic Conditions Patient?s care impacted by: Other (Congestive heart failure) Critical Care Time Critical Care Time Critical Care Time: Yes Total Critical Care Time: 60 Attestation: I have personally provided critical care time. Time includes review of lab data, radiology results, discussion with consultants, and monitoring for potential decompensation. Intervention performed as documented. Discharge Plan Discharge Clinical Impression: Pneumonia Patient Disposition: Home, Self-Care Instructions: Pneumonia (ED) Additional Instructions: Please follow-up with your primary care physician tomorrow. If you have any worsening or new symptoms, please return to the emergency room or call 911 Prescriptions: No Action atorvastatin 40 mg tablet 1 tab PO BEDTIME metformin 500 mg tablet 500 mg PO DAILY acetaminophen 325 mg Tablet 650 mg PO Q4H MDD 3g/24h PRN (Reason: Pain) acetaminophen 325 mg Tablet 650 mg PO Q6H MDD 3g/24h PRN (Reason: Fever) torsemide 20 mg Tablet 20 mg PO DAILY trazodone 50 mg Tablet 50 mg PO BEDTIME dextrose 40 % Gel 10 g PO Q15M PRN (Reason: Hypoglycemia) Rx Instructions: until symptoms of low blood sugar are controlled azathioprine 50 mg tablet 50 mg PO BID melatonin 3 mg Tablet 3 mg PO BEDTIME magnesium hydroxide [Milk of Magnesia] 400 mg/5 mL Suspension 30 ml PO DAILY PRN (Reason: Constipation) Rx Instructions: If no BM in 3 days levothyroxine 50 mcg Tablet 50 mcg PO DAILY bisacodyl [Dulcolax (bisacodyl)] 10 mg Suppository 10 mg ME DAILY PRN (Reason: Constipation) Rx Instructions: If no result from M.O.M ropinirole 0.5 mg tablet 0.5 mg PO TID Fleet Enema 19-7 gram/118 mL Enema 118 ml ME DAILY PRN (Reason: Constipation) Rx Instructions: If no result from Dulcolax nystatin 100,000 unit/gram Powder 1 appl TOPICAL DAILY Rx Instructions: apply to under breasts polyethylene glycol 3350 [Miralax] 17 gram/dose Powder 17 g PO DAILY PRN (Reason: Constipation) Rx Instructions: If no BM in 3 days albuterol sulfate [Ventolin HFA] 90 mcg/actuation Hfa Aerosol Inhaler 1 puff INHALATION Q4H PRN (Reason: Shortness Of Breath Or Wheezing) oxycodone 5 mg Tablet 2.5 mg PO Q6H PRN (Reason: Pain) insulin lispro [Humalog KwikPen Insulin] 100 unit/mL Insulin Pen See Protocol SUBCUT TID Protocol: Insulin Correction Scale Less than or equal to 110 ---- Give (units): 0 111 to 150 Give (units): 0 151 to 200 Give (units): 2 201 to 250 Give (units): 4 251 to 300 Give (units): 6 301 to 350 Give (units): 8 Greater than 350 Give (units): 10 Call MD if Blood Glucose > : 350 diclofenac sodium 1 % Gel 2 g TOPICAL Q6H Rx Instructions: apply to single elbow, wrist or hand; for hand includes palm/fingers/back of hand melatonin 5 mg Tablet 5 mg PO BEDTIME PRN (Reason: Sleep) naloxone 4 mg/actuation [place],Non-Aerosol 4 mg INTRANASAL Q2M PRN (Reason: Opiate Reversal) Rx Instructions: spray 1 dose into ONE nostril; alternate nostrils w each dose until help arrives glucagon HCl [Glucagon (HCl) Emergency Kit] 1 mg Recon Soln 1 mg SUBCUT Q20M PRN (Reason: Hypoglycemia) Rx Instructions: until target blood sugar attained ferrous sulfate 325 mg (65 mg iron) tablet 325 mg PO DAILY Qty: 90 0RF duloxetine 20 mg Capsule,Delayed Release(Dr/Ec) 20 mg PO BEDTIME nitroglycerin 0.4 mg Tablet, Sublingual 0.4 mg SUBLINGUAL Q5M MDD 3 doses PRN (Reason: Chest Pain) Rx Instructions: do not exceed 3 doses per episode metoprolol succinate 25 mg tablet extended release 24 hr 25 mg PO DAILY gabapentin 300 mg capsule 300 mg PO TID isosorbide mononitrate 30 mg tablet extended release 24 hr 30 mg PO BEDTIME ropinirole 0.5 mg tablet 0.5 mg PO BEDTIME Eliquis 5 mg tablet 5 mg PO BID dapagliflozin propanediol [Farxiga] 10 mg tablet 10 mg PO DAILY (DME) blood pressure test kit-wrist Kit See Rx Instructions .Route Qty: 1 0RF Rx Instructions: As directed budesonide 3 mg capsule,delayed,extend.release 9 mg PO DAILY Qty: 270 3RF Print Language: Azeri
[2025-06-02 03:20] LABS: Reflex Lactate? 2 Y
[2025-06-02 03:39] LABS: NT Pro B Type Natriuretic Pept 2206.3 pg/mL (<300)
--- NOTE | 2025-06-02 03:40 | PM.IMHP ---
History of Present Illness Date of Service: 06/02/25 Attending physician on admission: Yesenia Ovalle Chief Complaint: hypoxia pt is an 85-year-old female PMHx significant for CHF, HTN, DVT on Eliquis, and ulcerative colitis , significant deconditioning who is now bed/wheelchair bound presented from her correction, due to hypoxia in the 80s with a cough for the past week. Cough is nonproductive, and the patient reports shortness of breath and chills. No nausea, vomiting, diarrhea or urinary symptoms including frequency, urgency or dysuria. She was recently admitted for acute CHF exacerbation with possible pneumonia, discharged on 05/15/2025. the pt is a very poor historian. Review of Systems Constitutional: Constitutional: Denies body ache(s), Reports chills, Denies fatigue, Denies fever(s) and Denies headache(s) Eyes: Eyes: Denies change in vision ENT: Denies headache(s), Denies nasal congestion and Denies sore throat Cardiovascular: Cardiovascular: Denies chest pain, Denies rapid heart rate, Denies lightheadedness and Reports dyspnea Respiratory: Respiratory: Reports chest congestion, Reports cough, Reports dyspnea and Denies wheezing Gastrointestinal: Gastrointestinal: Denies abdominal pain, Denies diarrhea, Denies nausea and Denies vomiting Genitourinary: Genitourinary: Denies difficulty voiding, Denies dysuria and Denies urinary urgency Musculoskeletal: Musculoskeletal: Denies myalgias Integumentary/Breasts: Skin/Breast: Denies rash Neurologic: Denies confusion and Denies headache(s) Psychiatric: Psychiatric: Denies confusion Endocrine: Endocrine: Denies fatigue Hematologic/Lymphatic: Hematologic/Lymphatic: Denies easy bleeding Allergic/Immunologic: Allergic/Immunologic: Denies wheezing [facility] Medical History Diverticulitis History of acute respiratory failure Diarrhea History of CHF (congestive heart failure) Constipation Acute proctitis Hemorrhoids Spinal abscess Restless leg syndrome HTN (hypertension) Pre-diabetes DVT (deep venous thrombosis) Colitis Ulcerative colitis Functional capacity: wheelchair bound Surgical History Hx of shoulder surgery Social History Household Members: Children Household Members Other:: son Housing: House Alcohol intake: former Patient Tobacco Use Status: Never used Tobacco Advance Directives: Yes Advance Directives on File: Yes Advance Directives Date on File: 11/16/22 service: No Current occupational status: retired Meds Allergies Allergy/AdvReac Type Severity Reaction Status Date / Time barium Allergy Unknown Hives Uncoded 06/01/25 22:06 dogs, cats etc.. Allergy Unknown Unknown Uncoded 06/01/25 22:06 Active Medications: Current Medications Acetaminophen (Acetaminophen 325 Mg Tablet) 650 mg PO Q6H PRN PRN Reason: Pain, Mild 1-3,fever,headache Benzonatate (Benzonatate 100 Mg Capsule) 100 mg PO TID PRN PRN Reason: Cough Calcium Carbonate (Calcium Carbonate 750 Mg Tab.Chew) 750 mg PO Q4H PRN PRN Reason: Heartburn Heparin Sodium (Porcine) (Heparin Sodium,Porcine 5,000 Unit/Ml Vial) 5,000 unit SUBCUT Q12H [facility] Hydrocortisone Sodium Succinate (Hydrocortisone Sod Succ/Pf 100 Mg Vial) 100 mg IVPUSH Q12H [facility] Sodium Chloride (Ns) 500 mls @ 250 mls/hr IVCONT .Q2H ONE Stop: 06/02/25 04:28 Last Admin: 06/02/25 02:56 Dose: 250 mls/hr Albumin Human (Kedbumin 25 %) 100 mls @ 133.333 mls/hr IV Q1H [facility] Stop: 06/02/25 05:14 Ceftriaxone Sodium 2 gm/ (Sodium Chloride) 50 mls @ 100 mls/hr IV Q24H [facility] Doxycycline Hyclate 100 mg/ (Sodium Chloride) 250 mls @ 166.67 mls/hr IV BID [facility] Magnesium Hydroxide (Milk Of Magnesia 30 Ml Oral.Susp) 30 ml PO DAILY PRN PRN Reason: Constipation Melatonin (Melatonin 3 Mg Tablet) 6 mg PO BEDTIME PRN PRN Reason: Insomnia Oxycodone HCl (Oxycodone Hcl Immed Release 5 Mg Tablet) 5 mg PO Q6H PRN PRN Reason: Pain, Severe (Pain Scale 7-10) Sodium Chloride (0.9 % Sodium Chloride Flush 3 Ml Syringe) 3 ml IVFLUSH QSHIFT [facility] Tramadol HCl (Tramadol Hcl 50 Mg Tablet) 50 mg PO Q6H PRN PRN Reason: Pain, Moderate(Pain Scale 4-6) Home Medications ?Medication ?Instructions ?Recorded ?Confirmed ?Last Taken ?Type apixaban 5 mg tablet (Eliquis) 5 mg PO BID 12/02/20 05/12/25 01/16/24 History atorvastatin 40 mg tablet 1 tab PO BEDTIME 05/11/21 05/12/25 1 Day Ago History ~01/15/24 duloxetine 20 mg capsule,delayed 20 mg PO BEDTIME 02/09/24 05/12/25 Unknown History release nitroglycerin 0.4 mg sublingual 0.4 mg sublingual Q5M PRN Chest 02/09/24 05/12/25 Unknown History tablet Pain metoprolol succinate 25 mg 25 mg PO DAILY 05/28/24 05/12/25 Unknown History tablet,extended release 24 hr dapagliflozin propanediol 10 mg 10 mg PO DAILY 11/13/24 05/12/25 Unknown History tablet (Farxiga) gabapentin 300 mg capsule 300 mg PO TID 11/23/24 05/12/25 Unknown History isosorbide mononitrate 30 mg 30 mg PO BEDTIME 11/23/24 05/12/25 Unknown History tablet,extended release 24 hr ropinirole 0.5 mg tablet 0.5 mg PO BEDTIME 11/23/24 05/12/25 Unknown History acetaminophen 325 mg tablet 650 mg PO Q4H PRN Pain 05/12/25 05/12/25 Unknown History acetaminophen 325 mg tablet 650 mg PO Q6H PRN Fever 05/12/25 05/12/25 Unknown History albuterol sulfate 90 mcg/actuation 1 puff inhalation Q4H PRN 05/12/25 05/12/25 Unknown History aerosol inhaler (Ventolin HFA) Shortness Of Breath Or Wheezing azathioprine 50 mg tablet 50 mg PO BID 05/12/25 05/12/25 Unknown History bisacodyl 10 mg rectal suppository 10 mg NM DAILY PRN Constipation 05/12/25 05/12/25 Unknown History (Dulcolax (bisacodyl)) dextrose 40 % oral gel 10 g PO Q15M PRN Hypoglycemia 05/12/25 05/12/25 Unknown History diclofenac sodium 1 % topical gel 2 g topical Q6H 05/12/25 05/12/25 Unknown History glucagon HCl 1 mg solution for 1 mg subcut Q20M PRN Hypoglycemia 05/12/25 05/12/25 Unknown History injection (Glucagon (HCl) Emergency Kit) insulin lispro 100 unit/mL See Protocol subcut TID 05/12/25 05/12/25 Unknown History subcutaneous pen (Humalog KwikPen (U-100) Insulin) levothyroxine 50 mcg tablet 50 mcg PO DAILY 05/12/25 05/12/25 Unknown History magnesium hydroxide 400 mg/5 mL 30 ml PO DAILY PRN Constipation 05/12/25 05/12/25 Unknown History oral suspension (Milk of Magnesia) melatonin 3 mg tablet 3 mg PO BEDTIME 05/12/25 05/12/25 Unknown History melatonin 5 mg tablet 5 mg PO BEDTIME PRN Sleep 05/12/25 05/12/25 Unknown History metformin 500 mg tablet 500 mg PO DAILY 05/12/25 05/12/25 Unknown History naloxone 4 mg/actuation nasal spray 4 mg intranasal Q2M PRN Opiate 05/12/25 05/12/25 Unknown History Reversal nystatin 100,000 unit/gram topical 1 appl topical DAILY 05/12/25 05/12/25 Unknown History powder oxycodone 5 mg tablet 2.5 mg PO Q6H PRN Pain 05/12/25 05/12/25 Unknown History polyethylene glycol 3350 17 17 g PO DAILY PRN Constipation 05/12/25 05/12/25 Unknown History gram/dose oral powder (Miralax) ropinirole 0.5 mg tablet 0.5 mg PO TID 05/12/25 05/12/25 Unknown History sodium phosphates 19 gram-7 118 ml NM DAILY PRN Constipation 05/12/25 05/12/25 Unknown History gram/118 mL enema (Fleet Enema) torsemide 20 mg tablet 20 mg PO DAILY 05/12/25 05/12/25 Unknown History trazodone 50 mg tablet 50 mg PO BEDTIME Sleep 05/12/25 05/12/25 Unknown History Physical Exam Vital Signs and Narrative: Vital Signs: Last Vital Signs Temp 99.0 F 06/02/25 03:13 Pulse 88 06/02/25 03:13 Resp 24 H 06/02/25 03:13 BP 114/48 L 06/02/25 03:13 Pulse Ox 96 06/02/25 03:13 O2 Del Method Nasal Cannula 06/02/25 03:13 O2 Flow Rate 3 06/02/25 02:13 Oxygen Flow Rate 3 06/01/25 23:14 BMI result Body Mass Index 27.2 General: AOx3, no acute distress Resp: rhonchorus bilaterally, no wheezing CVS: tachycardic GI: +BS, NT, no distention Skin: Warm, dry Neuro: Cranial nerves II-XII grossly intact bilaterally. Motor grossly intact bilaterally Extremities: No pitting edema Psych: Appropriate affect Const: General: No confusion Orientation/consciousness: No confusion Neuro: General: No confusion Results Labs 06/01/25 22:28 06/02/25 00:36 Labs: Laboratory Results - last 24 hr 06/01/25 06/02/25 06/02/25 22:28 00:36 01:16 MCV 76.5 L MCH 22.9 L MCHC 29.9 L RDW 24.9 H Plt Count 540 H MPV 9.4 Immature Gran % (Auto) 1.0 H Neut % (Auto) 82.6 H Lymph % (Auto) 8.1 L [place] % (Auto) 8.0 Eos % (Auto) 0.0 Baso % (Auto) 0.3 Lymph # (Auto) 1.5 [place] # (Auto) 1.5 H Eos # (Auto) 0.0 Baso # (Auto) 0.1 Abs Immat Gran (auto) 0.18 H Absolute Neuts (auto) 15.6 H Absolute Nucleated RBC 0.000 Nucleated RBC % (auto) 0.0 Smear Tech's Comments VERIFIED VBG pH 7.51 H VBG pCO2 34 VBG pO2 71 VBG HCO3 27 H VBG O2 Saturation 83.0 VBG Base Excess 5.1 Anion Gap 17 Estim Creat Clear Calc 27.4 Estimated GFR 35 Random Glucose 142 H Lactic Acid 3.6 H* Lactic Acid F/U @ 2Hr 3.9 H* Calcium 8.4 Total Bilirubin 0.5 Direct Bilirubin 0.3 AST 25 ALT < 6 Alkaline Phosphatase 89 Troponin I High Sens 17.7 H D NT-Pro-B Natriuret Pep 2206.3 H Total Protein 5.7 L Albumin 2.8 L Influenza Type A (PCR) NEGATIVE Influenza Type B (PCR) NEGATIVE RSV RNA Qual (PCR) NEGATIVE SARS-CoV-2 RNA (RT-PCR) NEGATIVE Assessment and Plan (1) Severe sepsis: Status: Acute (2) Acute respiratory failure with hypoxia: Status: Acute (3) Bilateral pneumonia: Status: Acute (4) CHF exacerbation: Status: Acute (5) Acute lactic acidosis: Status: Acute (6) ALTAGRACIA (acute kidney injury): Status: Acute Plan pt is an 85-year-old female PMHx significant for CHF, HTN, DVT on Eliquis, and ulcerative colitis , significant deconditioning who is now bed/wheelchair bound presented from her correction, due to hypoxia in the 80s with a cough for the past week. imaging with bilateral pneumonia and likley acute chf exacerbation acute hypoxic respiratory failure and severe sepsis secondary to bilateral pneumonia in the setting of acute CHF exacerbation - RPP - albumin - vancomycin and zosyn - avoid diuretics at this time due to sepsis, no severe fluid overload on imaging, BNP may be more elevated due to ALTAGRACIA - titrate O2 PRN - monitor CBC and BMP acute lactic acidosis, secondary to sepsis and hypoxia - trend lactic acid - treat underlying cause as above ALTAGRACIA - avoid nephrotoxins when possible - monitor BMP HTN - hold home BP meds, BP soft hx DVT - hold eliquis, use heparin due to ALTAGRACIA UC - continue home meds med rec pending full code VTE prophy: heparin Pt with acute hypoxic respiratory failure and severe sepsis secondary to bilateral pneumonia and acute CHF exacerbation, requiring admission for at least 2 midnights stay for IV abx and monitoring. Quality Stroke Does the patient have a stroke diagnosis?: No VTE Prior VTE?: Yes VTE Risk Level:: Medical - moderate - high VTE Device Contraindication: Treatment Not Indicated VTE Drug Contraindication: N/A - Med Ordered
--- NOTE | 2025-06-02 03:45 | PC.NURSE ---
Pt A&Ox2, appears to be sleeping at this time, awakens with tactile stimulation, denies any pain. Pt noted to have dressing to right upper chest, per daughter Pt has skin tear under dressing. New Skin tear noted to outer left upper arm from EMS EKG lead. Daughter reports Pt has very frail skin. Pt had small BM on bedpan with two assist.
[2025-06-02 04:12] LABS: Magnesium 2.0 mg/dL (1.6-2.6)
[2025-06-02 04:32] LABS: Procalcitonin 1.27 ng/mL
[2025-06-02] MEDS: Albumin Human 25 % 100 ML 133.33 ML IV ×2 (04:35→05:24)
[2025-06-02] MEDS: Hydrocortisone Sod Succ/PF 100 MG VIAL IVPUSH ×2 (04:43→17:16)
[2025-06-02 04:51] LABS: MANUAL DIFF FLAG NO
[2025-06-02 04:52] LABS: Hematocrit 30.8 % (37.0-47.0); Hemoglobin 9.2 g/dl (12.0-16.0); Imm Gran Abs Auto 0.10 X10*3/uL (0.00-0.03); Imm Gran Pct Auto 0.6 % (0.0-0.4); Lymphocytes Absolute Auto 1.3 X10*3/uL (1.2-4.9); Mean Corpuscular HGB Conc 29.9 g/dl (31.0-35.0); Mean Corpuscular Hemoglobin 22.9 pg (27.0-33.0); Mean Corpuscular Volume 76.6 fL (80.0-98.0); NRBC Abs Auto 0.000 X10*3/uL (0.0-0.012); NRBC Pct Auto 0.0 /100WBC (0.0-0.2); Platelet Count 474 X10*3/uL (160-400); Red Blood Count 4.02 X10*6/uL (4.20-5.50); White Blood Count 15.4 X10*3/uL (4.8-10.8)
[2025-06-02 05:04] LABS: Anion Gap 17 (12-20); Blood Urea Nitrogen 28 mg/dL (9-16); Calcium 8.3 mg/dL (8.4-10.2); Carbon Dioxide 25 mmol/L (22-29); Chloride 104 mmol/L (96-108); Creatinine Clr Calc Pharmacy 28.0; Estimated Glomerular Filt Rate 36; Potassium 4.0 mmol/L (3.3-5.1); Sodium 142 mmol/L (135-145)
[2025-06-02 05:08] LABS: ~Lactic Acid-LAB USE ONLY 3.6 mmol/L (0.5-2.0)
[2025-06-02 05:11] LABS: Troponin-I High Sensitivity 31.4 ng/L (<3.5-17.0)
--- NOTE | 2025-06-02 06:32 | PHA.PROG ---
Admission Date/Time: June 02, 2025 03:24 Indication: Sepsis Weight in k.8 kg Adjusted body weight in Kg: [place] body weight in Kg: Obesity Dosing Indication % IBW: Serum Creatinine - Last 168 Hours 06/02/25 06/02/25 00:36 04:46 Creatinine 1.43 H 1.40 Estimated CrCl and GFR - Last 168 Hours 06/02/25 06/02/25 00:36 04:46 Estim Creat Clear Calc 27.4 28.0 Estimated GFR 35 36 Vancomycin Loading Dose: 1250 mg Current Vancomycin Dosing Regimen: 750 mg Q24H Vancomycin Monitoring using AUC goal of 400 - 600 range with trough as surrogate marker: 469 mg/L*hr Date and Time for next Vancomycin Level to be drawn: 06/04/2025 @0600 Pharmacist Comments on Vancomycin Plan: Vancomycin dosing will take advantage of [employer] as a clinical decision support tool that uses Bayesian modeling to calculate individual patient's pharmacokinetic parameters and forecast the patient's drug concentration time course with the target goal AUC 24 range of 400 - 600 mg/L/hr.
--- NOTE | 2025-06-02 06:42 | PC.NURSE ---
Incontinent care provided. Redness noted to buttocks, barrier cream applied and Pt repositioned.
[2025-06-02 07:37] LABS: Chlamydia pneumoniae PCR Not Detected (Not Detect.); Coronavirus 229E PCR Not Detected (Not Detect.); Coronavirus HKU1 PCR Not Detected (Not Detect.); Coronavirus NL63 PCR Not Detected (Not Detect.); Coronavirus OC43 PCR Not Detected (Not Detect.); RSV PCR Not Detected (Not Detect.); Rhino/Enterovirus PCR Not Detected (Not Detect.)
[2025-06-02 07:51] LABS: SARS-CoV-2 PCR Not Detected (Not Detect.)
--- NOTE | 2025-06-02 07:51 | PC.NURSE ---
Pt hasbeen sleeing since thisRN arrival Cheeks flush. unlabored resp. NSR
[2025-06-02 07:52] LABS: Influenza A H1 PCR Not Detected (Not Detect.); Influenza A H1-2009 PCR Not Detected (Not Detect.); Influenza A H3 PCR Not Detected (Not Detect.)
--- NOTE | 2025-06-02 08:14 | PC.NURSE ---
Pt is axox2. No complaints at this time. sitting upright to eat. unlabored resp. LS crackels in bases. junky but non-productive cough. heels elevated. pt had small soft BM. cleansed, repostitioned. NO skin breakdown at prominences. Dsg right chest at site of skin tear. Overnight RNstates skin is very fragile.
[2025-06-02 10:46] LABS: NT Pro B Type Natriuretic Pept 1492.0 pg/mL (<300)
--- NOTE | 2025-06-02 11:25 | PC.NURSE ---
Pt has had frequent loose stools. Daughter states that she often has diarrhea d/u chrons. Skin around anus is red, mascerated, has begun to bleed a little. Fecal containtment device now being used and barrier cream has been applied at every BM. Aprox 6-BMs in last 2 hours. Good bed mobility
--- NOTE | 2025-06-02 11:52 | PHA.MEDREC ---
Pharmacy Consult ? Medication Reconciliation Pharmacy has completed the medication reconciliation, using medication list from [facility].
[2025-06-02] MEDS: oxyCODONE HCl Immed Release 5 MG TABLET PO (12:04)
--- NOTE | 2025-06-02 12:18 | PM.EVENT ---
Event Note Date of Service: 06/02/25 Event Note: 85-year-old female PMHx significant for CHF, HTN, DVT on Eliquis, and ulcerative colitis , significant deconditioning who is now bed/wheelchair bound presented from her long-term, due to hypoxia in the 80s with a cough for the past week. imaging with bilateral pneumonia and likley acute chf exacerbation Acute hypoxic respiratory failure and severe sepsis secondary to bilateral pneumonia in the setting of acute CHF exacerbation - RPP>parainfluenza - albumin - vancomycin and zosy, pt devloped redness to face,changed to doxycycline - lasix 20 mg IV daily - titrate O2 PRN - monitor CBC and BMP Acute lactic acidosis, secondary to sepsis and hypoxia - trend lactic acid - treat underlying cause as above ALTAGRACIA - avoid nephrotoxins when possible - monitor BMP HTN - hold home BP meds, BP soft hx DVT - hold eliquis, use heparin due to ALTAGRACIA UC - continue home meds full code VTE prophy: heparin Pt with acute hypoxic respiratory failure and severe sepsis secondary to bilateral pneumonia and acute CHF exacerbation, requiring admission for at least 2 midnights stay for IV abx and monitoring. Time Spent With Patient Time: Total time managing care of this patient today ____ minutes.
--- NOTE | 2025-06-02 14:01 | MHC.CM.PN ---
IMM 06/02/25, Pt. is LTC resident of [facility]. PCP listed and confirmed as: Mick Tatum MD. HCP on file and confirmed: Karen. Pt. uses a W/C for mobility. DCP: return to SNF via BLS. CM to follow and assist with DCP.
[2025-06-02 17:32] LABS: Appearance Urine Turbid; Glucose Urine UA >=1000 mg/dL (Negative); PH 5.5 (5.0-9.0); Specific Gravity - Urine 1.020 (1.005-1.025); UMIC TRIGGER UACC YES
[2025-06-02 17:42] LABS: UACC Culture Trigger YES
--- NOTE | 2025-06-02 19:28 | HO.NURTONUR ---
Addendum entered by Delfina Alexander RN 06/02/25 20:03: Pt has rectal temp probe in place Original Note: Pt comes from SNF w/ c/o non prodcutive cough x 1 week. Today staff found her O2 sats in the 80's. Pt is being tx'd for pna and is currently o 2L NC )2 sat 97%. Pt also has pmhx of ulcerative colitis and chronic diarrhea. Flexiseal placed this am. Pt is A&O x 3 for the most part and is able to make her needs known. Buttocks and vaginal area excoriated from chronic diarrhea; barrier cream applied.
[2025-06-02] MEDS: Furosemide 20 MG/2 ML VIAL IVPUSH (19:59)
[2025-06-02 22:36] LABS: Glucose, Whole Blood 167 mg/dL (60-115)
[2025-06-03] VITALS (10 sets, daily range): BP systolic 103–144; BP diastolic 51–65; PULSE 73–92; RESP 16–20; TEMP 36.4–36.8; O2SAT 89–100
[2025-06-03] MEDS: 0.9 % Sodium Chloride Flush 3 ML SYRINGE IVFLUSH ×4 (00:25→21:15)
[2025-06-03] MEDS: Hydrocortisone Sod Succ/PF 100 MG VIAL IVPUSH (03:25)
[2025-06-03] MEDS: oxyCODONE HCl Immed Release 5 MG TABLET PO ×3 (03:25→21:10)
[2025-06-03 06:51] LABS: Hematocrit 29.6 % (37.0-47.0); Hemoglobin 9.1 g/dl (12.0-16.0); Imm Gran Abs Auto 0.07 X10*3/uL (0.00-0.03); Imm Gran Pct Auto 0.8 % (0.0-0.4); Lymphocytes Absolute Auto 0.5 X10*3/uL (1.2-4.9); MANUAL DIFF FLAG SCAN; Mean Corpuscular HGB Conc 30.7 g/dl (31.0-35.0); Mean Corpuscular Hemoglobin 22.9 pg (27.0-33.0); Mean Corpuscular Volume 74.4 fL (80.0-98.0); NRBC Abs Auto 0.000 X10*3/uL (0.0-0.012); NRBC Pct Auto 0.0 /100WBC (0.0-0.2); Platelet Count 490 X10*3/uL (160-400); Red Blood Count 3.98 X10*6/uL (4.20-5.50); SCAN SMEAR FLAG 1; White Blood Count 9.0 X10*3/uL (4.8-10.8)
[2025-06-03 07:07] LABS: Anion Gap 12 (12-20); Blood Urea Nitrogen 22 mg/dL (9-16); Calcium 8.9 mg/dL (8.4-10.2); Carbon Dioxide 28 mmol/L (22-29); Chloride 107 mmol/L (96-108); Creatinine Clr Calc Pharmacy 41.4; Estimated Glomerular Filt Rate 56; Potassium 3.4 mmol/L (3.3-5.1); Sodium 144 mmol/L (135-145)
[2025-06-03 07:13] LABS: NT Pro B Type Natriuretic Pept 6065.5 pg/mL (<300)
[2025-06-03] MEDS: Albuterol/Iprat 2.5/0.5MG 3 ML AMPUL.NEB INHALE ×2 (07:42→14:16)
[2025-06-03 07:52] LABS: Glucose, Whole Blood 139 mg/dL (60-115)
[2025-06-03] MEDS: Furosemide 40 MG/4 ML VIAL IVPUSH ×2 (07:59→18:41)
--- NOTE | 2025-06-03 09:38 | MHC.CM.PN ---
Patient is a private pay bedhold @ [facility].
[2025-06-03] MEDS: Metoprolol Succinate ER 25 MG TAB.ER.24H PO (09:58)
[2025-06-03] MEDS: Hydrocortisone Sod Succ/PF 100 MG VIAL 50 MG IVPUSH ×2 (09:59→21:11)
[2025-06-03 11:21] LABS: Glucose, Whole Blood 139 mg/dL (60-115)
[2025-06-03 11:35] LABS: Iron 19 mcg/dL (30-160); Percent Iron Saturation 11 % (15-50); Total Iron Binding Capacity 172 mcg/dL (228-428); Unsaturated Iron Binding 153 ug/dL
[2025-06-03 11:48] LABS: Ferritin 69 ng/mL (10-250)
--- NOTE | 2025-06-03 13:03 | HO.WOUND ---
Wound Consult: Initial 85 yr old female admitted to [facility] on 06/02/25- See progress notes and H&P for detailed history. Wound consult placed for left arm/right chest skin tears. Patient agreeable to assessment and photo documentation. Patient with fragile skin, history of skin tears and bruising. Patient reports history of wound to her buttocks/coccyx but unable to give timeline or severity. Coccyx/buttocks Etiology: Coccyx stage 2 pressure injury Present on Admission with surrounding MASD extending down gluteal fold/buttocks and perineum. Measurements: 0.2cm x 0.2cm x 0.1cm Wound Bed: moist pink Drainage / Odor: none Edges: ? open [place] wound: ? No Induration, Fluctuance or Warmth noted - MASD with intact moist red blanchable skin Pain: none Goals of Treatment: ? triad and foam Left upper arm Right chest Etiology: skin tears Wound Bed: moist pink/red Drainage / Odor: scant sanguineous - no odor Edges: ? open [place] wound: ? No Induration, Fluctuance or Warmth noted - mild bruising Pain: yes with dressing change Goals of Treatment: ? xeroform and foam for moist wound healing- atraumatic removal Right knee - old healed skin injury - scar tissue Left knee- old healed skin injury- intact scarring with scattered dry intact scabs. Recommendations: 1. Turn and Reposition every 2 hours and as needed for patient comfort. Use pillows or wedges to support off loading positions. 2. Off Load all bony prominences with use of pillows and heel boots if needed. Apply Preventative foams where needed. 3. Monitor for incontinence and moisture control, use barrier creams when needed for prevention and treatment. 4. Provide adequate and supplemental nutrition. 5. Order or Continue low air loss mattress. 6. When applicable maintain blood glucose levels per Providers order. Right chest, Left arm: cleanse with saline, pat dry, apply skin prep feliciano wound, apply xeroform to wound bed, cover with foam, change every other day and PRN. Buttocks/Perineum: Off Load Pressure with Q2 hr turns and use of pillows - Cleanse with PH balance spray or wipes, pat dry. ?Apply thin layer of Triad to wound bed - only pat and dab no scrub and rub when soiling occurs. Reapply thin layer PRN after each episode of incontinence. Coccyx: Off Load Pressure with Q2 hr turns and use of pillows - Cleanse with PH balance spray or wipes, pat dry. ?Apply thin layer of Triad to wound bed. Do not remove all of paste between applications as this may cause further skin damage.? Cover with foam dressing to aid in off loading and protection from friction. Change every 3 days and PRN. Re-consult wound care Nurse for wound deterioration or wound changes.
--- NOTE | 2025-06-03 14:35 | PM.CNCAR ---
History of Present Illness History of Present Illness Date of Service: 06/03/25 Requesting physician: Robert Rivera Consult reason: congestive heart failure Chief complaint: sepsis pneumonia Narrative: I was consulted to see Maris in cardiology consultation today for acute hypoxemic respiratory failure. Patient is 85 year female who has very poor functional status over the last year and half. History obtained from the daughter over the phone. Patient not a very good historian. As per the patient's daughter she has been admitted multiple times to [facility] with pneumonia and acute can kidney injury. She has prior history of diastolic heart failure. Within the last 5 years she has had also CAD with stent placement for symptoms of angina. As per the daughter she also gets intermittent symptoms of angina although these are not life-limiting. [facility] because of inability to take care of herself. She was referred over because of increasing cough and then she was disoriented on Sunday and when measured oxygen saturation No's noted to be markedly hypoxemic and she was referred to the emergency room. In the emergency room she was noted to have mildly elevated BNP in the 1000 range along with bilateral infiltrates on the chest x-ray and initially feeling was that she had pneumonia and because of ALTAGRACIA her diuretics were withheld. However subsequently a BNP today was up to 6000 No's given Lasix. She has had negative balance of 1100 cc. Oxygen requirement, at room air she is at 95% when I was examining her. She denies any shortness of breath at current time and says feels better. However she continues to have cough. She denies any palpitation, lightheadedness, syncope. She has no reported chest pain Review of Systems Review of Systems: Yes Unobtainable due to mental status PMFSH Past Medical History Medical History Diverticulitis History of acute respiratory failure Diarrhea History of CHF (congestive heart failure) Constipation Acute proctitis Hemorrhoids Spinal abscess Restless leg syndrome HTN (hypertension) Pre-diabetes DVT (deep venous thrombosis) Colitis Ulcerative colitis Surgical History Surgical History Hx of shoulder surgery Social History Social History Household Members: Children Household Members Other:: son Housing: House Alcohol intake: former Patient Tobacco Use Status: Never used Tobacco Advance Directives Date on File: 11/16/22 service: No Current occupational status: retired Meds Allergies Allergy/AdvReac Type Severity Reaction Status Date / Time barium Allergy Unknown Hives Uncoded 06/01/25 22:06 dogs, cats etc.. Allergy Unknown Unknown Uncoded 06/01/25 22:06 Active Medications: Current Medications Acetaminophen (Acetaminophen 325 Mg Tablet) 650 mg PO Q6H PRN PRN Reason: Pain, Mild 1-3,fever,headache Albuterol/Ipratropium (Albuterol/Iprat 2.5/0.5mg 3 Ml Ampul.Neb) 3 ml INHALE RTID [facility] Last Admin: 06/03/25 14:16 Dose: 3 ml Atorvastatin Calcium (Atorvastatin Calcium 40 Mg Tablet) 40 mg PO BEDTIME AUDI Azathioprine (Azathioprine 50 Mg Tablet) 50 mg PO BID [facility] Last Admin: 06/03/25 12:04 Dose: 50 mg Benzonatate (Benzonatate 100 Mg Capsule) 100 mg PO TID PRN PRN Reason: Cough Last Admin: 06/02/25 22:14 Dose: 100 mg Bisacodyl (Bisacodyl 10 Mg Supp.Rect) 10 mg MI DAILY PRN PRN Reason: Constipation Budesonide (Budesonide Dr 3 Mg Capsule) 9 mg PO DAILY [facility] Calcium Carbonate (Calcium Carbonate 750 Mg Tab.Chew) 750 mg PO Q4H PRN PRN Reason: Heartburn Dextrose (Dextrose 50 % 25 Gm/50 Ml Syringe) 25 gm IVPUSH Q15M PRN; Protocol PRN Reason: per Hypoglycemia Standing Ord. Duloxetine HCl (Duloxetine Hcl 20 Mg Capsule.Dr) 20 mg PO BEDTIME AUDI Empagliflozin (Empagliflozin 10 Mg Tablet) 10 mg PO DAILY [facility] Last Admin: 06/03/25 09:58 Dose: 10 mg Furosemide (Furosemide 40 Mg/4 Ml Vial) 40 mg IVPUSH BID@0900,1800 [facility]; Protocol Last Admin: 06/03/25 07:59 Dose: 40 mg Gabapentin (Gabapentin 300 Mg Capsule) 300 mg PO TID [facility] Last Admin: 06/03/25 08:00 Dose: 300 mg Glucose (Glucose Gel 15 Gm Gel..Gram.) 15 gm PO Q15M PRN; Protocol PRN Reason: per Hypoglycemia Standing Ord. Heparin Sodium (Porcine) (Heparin Sodium,Porcine 5,000 Unit/Ml Vial) 5,000 unit SUBCUT Q12H [facility] Last Admin: 06/03/25 03:25 Dose: 5,000 unit Hydrocortisone Sodium Succinate (Hydrocortisone Sod Succ/Pf 100 Mg Vial) 50 mg IVPUSH Q12H [facility] Stop: 06/03/25 22:01 Last Admin: 06/03/25 09:59 Dose: 50 mg Hydrocortisone Sodium Succinate (Hydrocortisone Sod Succ/Pf 100 Mg Vial) 25 mg IVPUSH Q12H [facility] Stop: 06/04/25 20:31 Piperacillin Sod/Tazobactam (Sod 3.375 gm/ Sodium Chloride) 50 mls @ 100 mls/hr IV Q6H [facility] Last Infusion: 06/03/25 12:34 Dose: Infused Doxycycline Hyclate 100 mg/ (Sodium Chloride) 250 mls @ 166.67 mls/hr IV Q12H [facility] Last Infusion: 06/03/25 04:56 Dose: Infused Insulin Human Lispro (Insulin Lispro 100 Unit/Ml 3 Ml Vial) 0 unit SUBCUT QIDACHS [facility]; Protocol Last Admin: 06/03/25 11:58 Dose: Not Given Isosorbide Mononitrate (Isosorbide Mononitrate 30 Mg Tab.Er.24h) 30 mg PO BEDTIME [facility]; Protocol Levothyroxine Sodium (Levothyroxine Sodium 50 Mcg Tablet) 50 mcg PO DAILY AUDI On Hold: 06/03/25 11:01 Last Admin: 06/03/25 09:58 Dose: 50 mcg Magnesium Hydroxide (Milk Of Magnesia 30 Ml Oral.Susp) 30 ml PO DAILY PRN PRN Reason: Constipation Melatonin (Melatonin 3 Mg Tablet) 6 mg PO BEDTIME PRN PRN Reason: Insomnia Last Admin: 06/02/25 22:14 Dose: 6 mg Melatonin (Melatonin 3 Mg Tablet) 3 mg PO BEDTIME [facility] Metoprolol Succinate (Metoprolol Succinate Er 25 Mg Tab.Er.24h) 25 mg PO DAILY [facility]; Protocol Last Admin: 06/03/25 09:58 Dose: 25 mg Nitroglycerin (Nitroglycerin 0.4 Mg Tab.Subl) 0.4 mg SUBLINGUAL Q5M PRN PRN Reason: Chest Pain Oxycodone HCl (Oxycodone Hcl Immed Release 5 Mg Tablet) 5 mg PO Q6H PRN PRN Reason: Pain, Severe (Pain Scale 7-10) Last Admin: 06/03/25 10:36 Dose: 5 mg Polyethylene Glycol (Polyethylene Glycol 3350 17 Gm Powd.Pack) 17 gm PO DAILY PRN PRN Reason: Constipation Ropinirole HCl (Ropinirole Hcl 0.5 Mg Tablet) 0.5 mg PO TID [facility] Last Admin: 06/03/25 08:00 Dose: 0.5 mg Ropinirole HCl (Ropinirole Hcl 0.5 Mg Tablet) 0.5 mg PO DAILY PRN PRN Reason: restless legs Sodium Biphosphate/Sodium Phosphate (Sodium Phosphate,Grady-Dibasic 133 Ml Enema) 118 ml MI DAILY PRN PRN Reason: Constipation Sodium Chloride (0.9 % Sodium Chloride Flush 3 Ml Syringe) 3 ml IVFLUSH QSHIFT [facility] Last Admin: 06/03/25 08:00 Dose: 3 ml Tramadol HCl (Tramadol Hcl 50 Mg Tablet) 50 mg PO Q6H PRN PRN Reason: Pain, Moderate(Pain Scale 4-6) Last Admin: 06/02/25 22:13 Dose: 50 mg Trazodone HCl (Trazodone Hcl 50 Mg Tablet) 50 mg PO BEDTIME [facility] Home Medications ?Medication ?Instructions ?Recorded ?Confirmed ?Last Taken ?Type apixaban 5 mg tablet (Eliquis) 5 mg PO BID 12/02/20 06/02/25 01/16/24 History atorvastatin 40 mg tablet 1 tab PO BEDTIME 05/11/21 06/02/25 1 Day Ago History ~01/15/24 duloxetine 20 mg capsule,delayed 20 mg PO BEDTIME 02/09/24 06/02/25 Unknown History release nitroglycerin 0.4 mg sublingual 0.4 mg sublingual Q5M PRN Chest 02/09/24 06/02/25 Unknown History tablet Pain metoprolol succinate 25 mg 25 mg PO DAILY 05/28/24 06/02/25 Unknown History tablet,extended release 24 hr dapagliflozin propanediol 10 mg 10 mg PO DAILY 11/13/24 06/02/25 Unknown History tablet (Farxiga) gabapentin 300 mg capsule 300 mg PO TID 11/23/24 06/02/25 Unknown History isosorbide mononitrate 30 mg 30 mg PO BEDTIME 11/23/24 06/02/25 Unknown History tablet,extended release 24 hr ropinirole 0.5 mg tablet 0.5 mg PO DAILY PRN restless legs 11/23/24 06/02/25 Unknown History acetaminophen 325 mg tablet 650 mg PO Q4H PRN Pain 05/12/25 06/02/25 Unknown History acetaminophen 325 mg tablet 650 mg PO Q6H PRN Fever 05/12/25 06/02/25 Unknown History albuterol sulfate 90 mcg/actuation 1 puff inhalation Q4H PRN 05/12/25 06/02/25 Unknown History aerosol inhaler (Ventolin HFA) Shortness Of Breath Or Wheezing azathioprine 50 mg tablet 50 mg PO BID 05/12/25 06/02/25 Unknown History bisacodyl 10 mg rectal suppository 10 mg MI DAILY PRN Constipation 05/12/25 06/02/25 Unknown History (Dulcolax (bisacodyl)) dextrose 40 % oral gel 10 g PO Q15M PRN Hypoglycemia 05/12/25 06/02/25 Unknown History diclofenac sodium 1 % topical gel 2 g topical Q6H 05/12/25 06/02/25 Unknown History glucagon HCl 1 mg solution for 1 mg subcut Q20M PRN Hypoglycemia 05/12/25 06/02/25 Unknown History injection (Glucagon (HCl) Emergency Kit) insulin lispro 100 unit/mL See Protocol subcut TID 05/12/25 06/02/25 Unknown History subcutaneous pen (Humalog KwikPen (U-100) Insulin) levothyroxine 50 mcg tablet 50 mcg PO DAILY 05/12/25 06/02/25 Unknown History magnesium hydroxide 400 mg/5 mL 30 ml PO DAILY PRN Constipation 05/12/25 06/02/25 Unknown History oral suspension (Milk of Magnesia) melatonin 3 mg tablet 3 mg PO BEDTIME 05/12/25 06/02/25 Unknown History melatonin 5 mg tablet 5 mg PO BEDTIME PRN Sleep 05/12/25 06/02/25 Unknown History metformin 500 mg tablet 500 mg PO DAILY 05/12/25 06/02/25 Unknown History naloxone 4 mg/actuation nasal spray 4 mg intranasal Q2M PRN Opiate 05/12/25 06/02/25 Unknown History Reversal oxycodone 5 mg tablet 2.5 mg PO Q6H PRN Pain 05/12/25 06/02/25 Unknown History polyethylene glycol 3350 17 17 g PO DAILY PRN Constipation 05/12/25 06/02/25 Unknown History gram/dose oral powder (Miralax) ropinirole 0.5 mg tablet 0.5 mg PO TID 05/12/25 06/02/25 Unknown History sodium phosphates 19 gram-7 118 ml MI DAILY PRN Constipation 05/12/25 06/02/25 Unknown History gram/118 mL enema (Fleet Enema) torsemide 20 mg tablet 20 mg PO DAILY 05/12/25 06/02/25 Unknown History trazodone 50 mg tablet 50 mg PO BEDTIME Sleep 05/12/25 06/02/25 Unknown History diclofenac sodium 1 % topical gel 4 g topical BID 06/02/25 06/02/25 Unknown History guaifenesin 100 mg/5 mL oral liquid 200 mg PO Q6H PRN Cough 06/02/25 06/02/25 Unknown History ipratropium 0.5 mg-albuterol 3 mg 3 ml inhalation TID 06/02/25 06/02/25 Unknown History (2.5 mg base)/3 mL nebulization soln Physical Exam Vital Signs: Vital Signs: Last Vital Signs Temp 97.6 F 06/03/25 12:00 Pulse 73 06/03/25 14:19 Resp 18 06/03/25 14:19 BP 143/63 H 06/03/25 12:00 Pulse Ox 94 06/03/25 12:00 O2 Del Method Room Air 06/03/25 12:00 O2 Flow Rate 1 06/03/25 07:42 Oxygen Flow Rate 3 06/01/25 23:14 BMI result Body Mass Index 26.8 Const: General: cooperative, alert, awake and in distress mild Nutritional Appearance: overweight Orientation/consciousness: patient oriented x3 HEENT: Head: Yes normocephalic and Yes atraumatic Neck: Neck: Yes trachea midline, Yes supple and Yes no JVD Resp: Effort & Inspection: normal respiratory effort Auscultation: crackles (Coarse) bilateral at the base, diminished lung sounds and bronchovesicular breath sounds Cardio: Jugular venous distension: no JVD Rate: regular rate Rhythm: regular rhythm Heart sounds: S1 normal heart sound present, S2 normal heart sound present, no click, no gallops and no murmurs GI: Auscultation: normal bowel sounds Skin: General skin exam: no rashes or lesions noted Neuro: General: patient oriented x3 and no focal motor deficits Extrem: General: No clubbing, No cyanosis and Yes edema Psych: Appearance: grossly normal Objective Labs and Meds 06/03/25 06:19 06/03/25 06:19 Lab results: Laboratory Results - last 24 hr 06/02/25 06/02/25 06/03/25 17:21 22:32 06:19 WBC 9.0 RBC 3.98 L Hgb 9.1 L Hct 29.6 L MCV 74.4 L MCH 22.9 L MCHC 30.7 L RDW 25.6 H Plt Count 490 H MPV 9.4 Immature Gran % (Auto) 0.8 H Neut % (Auto) 90.1 H Lymph % (Auto) 5.1 L Grady % (Auto) 3.8 Eos % (Auto) 0.0 Baso % (Auto) 0.2 Lymph # (Auto) 0.5 L Grady # (Auto) 0.3 Eos # (Auto) 0.0 Baso # (Auto) 0.0 Abs Immat Gran (auto) 0.07 H Absolute Neuts (auto) 8.1 Absolute Nucleated RBC 0.000 Nucleated RBC % (auto) 0.0 Smear Tech's Comments VERIFIED Sodium 144 Potassium 3.4 Chloride 107 Carbon Dioxide 28 Anion Gap 12 BUN 22 H Creatinine 0.94 Estim Creat Clear Calc 41.4 Estimated GFR 56 POC Glucose 167 H Random Glucose 125 H Calcium 8.9 D Iron 19 L TIBC 172 L % Saturation 11 L Unsat Iron Binding 153 Ferritin 69 NT-Pro-B Natriuret Pep 6065.5 H TSH 0.84 Urine Color Yellow Urine Appearance Turbid Urine pH 5.5 Ur Specific Tignall 1.020 Urine Protein 30 (1+) H Urine Glucose (UA) >=1000 H Urine Ketones Negative Urine Blood Large (3+) H Urine Nitrite Negative Ur Leukocyte Esterase Moderate (2+) H Urine RBC >20 H Urine WBC 11-20 H Ur Squamous Epith Cells 0-2 Urine Bacteria 4+ Hyaline Casts 0-2 06/03/25 06/03/25 07:47 11:04 WBC RBC Hgb Hct MCV MCH MCHC RDW Plt Count MPV Immature Gran % (Auto) Neut % (Auto) Lymph % (Auto) Grady % (Auto) Eos % (Auto) Baso % (Auto) Lymph # (Auto) Grady # (Auto) Eos # (Auto) Baso # (Auto) Abs Immat Gran (auto) Absolute Neuts (auto) Absolute Nucleated RBC Nucleated RBC % (auto) Smear Tech's Comments Sodium Potassium Chloride Carbon Dioxide Anion Gap BUN Creatinine Estim Creat Clear Calc Estimated GFR POC Glucose 139 H 139 H Random Glucose Calcium Iron TIBC % Saturation Unsat Iron Binding Ferritin NT-Pro-B Natriuret Pep TSH Urine Color Urine Appearance Urine pH Ur Specific Tignall Urine Protein Urine Glucose (UA) Urine Ketones Urine Blood Urine Nitrite Ur Leukocyte Esterase Urine RBC Urine WBC Ur Squamous Epith Cells Urine Bacteria Hyaline Casts Assessment and Plan (1) CHF exacerbation: Status: Acute Acute hypoxemic respiratory failure in his elderly woman with multiple medical issues with overall poor functional status. Patient has multiple underlying cardiovascular risk factors including hypertension, CAD as well as diastolic dysfunction. Patient improved very well and currently oxygen requirement is minimal after diuresis. Continue IV diuresis as well as SGLT2 inhibitor therapy. Strict intake and output chart needs to be pursued. Follow renal function as well as electrolytes. Would trend BNP. However hypoxemic respiratory failure in addition has a component of underlying acute/subacute pulmonary parenchymal disease from possibly viral/bacterial pneumonia. Continue supportive care. Continue treatment for the same. No evidence of acute myocardial ischemia at this point time. Continue chronic therapy for CAD. She is currently on Eliquis therapy for DVT question atrial fibrillation this is unclear. Patient she would avoid aspirin therapy to reduce bleeding risk. She is also significantly anemic at this point time. Overall prognosis is poor given her advanced age and poor functional status overall. Follow up with the hospitalist team. Will sign of the case and follow up as need be. Thank you for allowing me to partake in her care Procedures Date of Service Date of Service: 06/03/25
[2025-06-03 14:54] LABS: MRSA Nasal PCR NEGATIVE (Negative); SA Nasal PCR NEGATIVE (Negative)
[2025-06-03 15:28] LABS: Glucose, Whole Blood 191 mg/dL (60-115)
--- NOTE | 2025-06-03 16:03 | HO.PM.IMPN ---
Subjective Subjective Date of Service: 06/03/25 Interval History: c/o wet cough, dyspnea not on O2 now some watery diarrhea redness of face after vancomycin infusion resolved daughter updated at bedside Review of Systems Review of Systems: Yes all other systems are reviewed and are negative Physical Exam Vital Signs: Vital Signs: Last Vital Signs Temp 98.1 F 06/03/25 15:23 Pulse 80 06/03/25 15:23 Resp 18 06/03/25 15:23 BP 144/65 H 06/03/25 15:23 Pulse Ox 92 06/03/25 15:23 O2 Del Method Room Air 06/03/25 15:23 O2 Flow Rate 1 06/03/25 07:42 Oxygen Flow Rate 3 06/01/25 23:14 BMI result Body Mass Index 26.8 Gen: in no acute distress HEENT: sclera anicteric, moist mucus membranes Neck: supple Lungs: coarse wet inspiratory crackles bilaterally at bases Heart: regular rate and rhythm, no murmurs Abd: soft, non-tender, non-distended Ext: no edema Skin: warm/well-perfused Neuro: alert and oriented x3, no focal findings Psych: appropriate affect Objective Data Active Medications Acetaminophen (Acetaminophen 325 Mg Tablet) 650 mg PO Q6H PRN PRN Reason: Pain, Mild 1-3,fever,headache Albuterol/Ipratropium (Albuterol/Iprat 2.5/0.5mg 3 Ml Ampul.Neb) 3 ml INHALE RTID [facility] Last Admin: 06/03/25 14:16 Dose: 3 ml Documented By: HÉCTOR Atorvastatin Calcium (Atorvastatin Calcium 40 Mg Tablet) 40 mg PO BEDTIME [facility] Azathioprine (Azathioprine 50 Mg Tablet) 50 mg PO BID [facility] Last Admin: 06/03/25 12:04 Dose: 50 mg Documented By: REJI Benzonatate (Benzonatate 100 Mg Capsule) 100 mg PO TID PRN PRN Reason: Cough Last Admin: 06/02/25 22:14 Dose: 100 mg Documented By: JESICA Bisacodyl (Bisacodyl 10 Mg Supp.Rect) 10 mg OK DAILY PRN PRN Reason: Constipation Budesonide (Budesonide Dr 3 Mg Capsule) 9 mg PO DAILY [facility] Calcium Carbonate (Calcium Carbonate 750 Mg Tab.Chew) 750 mg PO Q4H PRN PRN Reason: Heartburn Dextrose (Dextrose 50 % 25 Gm/50 Ml Syringe) 25 gm IVPUSH Q15M PRN; Protocol PRN Reason: per Hypoglycemia Standing Ord. Duloxetine HCl (Duloxetine Hcl 20 Mg Capsule.Dr) 20 mg PO BEDTIME [facility] Empagliflozin (Empagliflozin 10 Mg Tablet) 10 mg PO DAILY [facility] Last Admin: 06/03/25 09:58 Dose: 10 mg Documented By: REJI Furosemide (Furosemide 40 Mg/4 Ml Vial) 40 mg IVPUSH BID@0900,1800 [facility]; Protocol Last Admin: 06/03/25 07:59 Dose: 40 mg Documented By: REJI Gabapentin (Gabapentin 300 Mg Capsule) 300 mg PO TID [facility] Last Admin: 06/03/25 08:00 Dose: 300 mg Documented By: REJI Glucose (Glucose Gel 15 Gm Gel..Gram.) 15 gm PO Q15M PRN; Protocol PRN Reason: per Hypoglycemia Standing Ord. Heparin Sodium (Porcine) (Heparin Sodium,Porcine 5,000 Unit/Ml Vial) 5,000 unit SUBCUT Q12H [facility] Last Admin: 06/03/25 03:25 Dose: 5,000 unit Documented By: JESICA Hydrocortisone Sodium Succinate (Hydrocortisone Sod Succ/Pf 100 Mg Vial) 50 mg IVPUSH Q12H [facility] Stop: 06/03/25 22:01 Last Admin: 06/03/25 09:59 Dose: 50 mg Documented By: REJI Hydrocortisone Sodium Succinate (Hydrocortisone Sod Succ/Pf 100 Mg Vial) 25 mg IVPUSH Q12H [facility] Stop: 06/04/25 20:31 Piperacillin Sod/Tazobactam (Sod 3.375 gm/ Sodium Chloride) 50 mls @ 100 mls/hr IV Q6H [facility] Last Infusion: 06/03/25 12:34 Dose: Infused Documented By: REJI Doxycycline Hyclate 100 mg/ (Sodium Chloride) 250 mls @ 166.67 mls/hr IV Q12H [facility] Last Infusion: 06/03/25 04:56 Dose: Infused Documented By: JESICA Insulin Human Lispro (Insulin Lispro 100 Unit/Ml 3 Ml Vial) 0 unit SUBCUT QIDACHS [facility]; Protocol Last Admin: 06/03/25 11:58 Dose: Not Given Documented By: REJI Non-Admin Reason: No Insulin Coverage Isosorbide Mononitrate (Isosorbide Mononitrate 30 Mg Tab.Er.24h) 30 mg PO BEDTIME [facility]; Protocol Levothyroxine Sodium (Levothyroxine Sodium 50 Mcg Tablet) 50 mcg PO DAILY [facility] On Hold: 06/03/25 11:01 Last Admin: 06/03/25 09:58 Dose: 50 mcg Documented By: REJI Magnesium Hydroxide (Milk Of Magnesia 30 Ml Oral.Susp) 30 ml PO DAILY PRN PRN Reason: Constipation Melatonin (Melatonin 3 Mg Tablet) 6 mg PO BEDTIME PRN PRN Reason: Insomnia Last Admin: 06/02/25 22:14 Dose: 6 mg Documented By: JESICA Melatonin (Melatonin 3 Mg Tablet) 3 mg PO BEDTIME [facility] Metoprolol Succinate (Metoprolol Succinate Er 25 Mg Tab.Er.24h) 25 mg PO DAILY [facility]; Protocol Last Admin: 06/03/25 09:58 Dose: 25 mg Documented By: REJI Nitroglycerin (Nitroglycerin 0.4 Mg Tab.Subl) 0.4 mg SUBLINGUAL Q5M PRN PRN Reason: Chest Pain Oxycodone HCl (Oxycodone Hcl Immed Release 5 Mg Tablet) 5 mg PO Q6H PRN PRN Reason: Pain, Severe (Pain Scale 7-10) Last Admin: 06/03/25 10:36 Dose: 5 mg Documented By: REJI Polyethylene Glycol (Polyethylene Glycol 3350 17 Gm Powd.Pack) 17 gm PO DAILY PRN PRN Reason: Constipation Ropinirole HCl (Ropinirole Hcl 0.5 Mg Tablet) 0.5 mg PO TID [facility] Last Admin: 06/03/25 08:00 Dose: 0.5 mg Documented By: REJI Ropinirole HCl (Ropinirole Hcl 0.5 Mg Tablet) 0.5 mg PO DAILY PRN PRN Reason: restless legs Sodium Biphosphate/Sodium Phosphate (Sodium Phosphate,[place]-Dibasic 133 Ml Enema) 118 ml OK DAILY PRN PRN Reason: Constipation Sodium Chloride (0.9 % Sodium Chloride Flush 3 Ml Syringe) [facility] Last Admin: 06/03/25 08:00 Dose: 3 ml Documented By: HO.PHANLYM Tramadol HCl (Tramadol Hcl 50 Mg Tablet) 50 mg PO Q6H PRN PRN Reason: Pain, Moderate(Pain Scale 4-6) Last Admin: 06/02/25 22:13 Dose: 50 mg Documented By: JESICA Trazodone HCl (Trazodone Hcl 50 Mg Tablet) 50 mg PO BEDTIME [facility] Labs 06/03/25 06:19 06/03/25 06:19 Labs: Laboratory Results - last 24 hr 06/02/25 06/02/25 06/03/25 17:21 22:32 06:19 MCV 74.4 L MCH 22.9 L MCHC 30.7 L RDW 25.6 H Plt Count 490 H MPV 9.4 Immature Gran % (Auto) 0.8 H Neut % (Auto) 90.1 H Lymph % (Auto) 5.1 L [place] % (Auto) 3.8 Eos % (Auto) 0.0 Baso % (Auto) 0.2 Lymph # (Auto) 0.5 L [place] # (Auto) 0.3 Eos # (Auto) 0.0 Baso # (Auto) 0.0 Abs Immat Gran (auto) 0.07 H Absolute Neuts (auto) 8.1 Absolute Nucleated RBC 0.000 Nucleated RBC % (auto) 0.0 Smear Tech's Comments VERIFIED Anion Gap 12 Estim Creat Clear Calc 41.4 Estimated GFR 56 POC Glucose 167 H Random Glucose 125 H Calcium 8.9 D Iron 19 L TIBC 172 L % Saturation 11 L Unsat Iron Binding 153 Ferritin 69 NT-Pro-B Natriuret Pep 6065.5 H TSH 0.84 Urine Color Yellow Urine Appearance Turbid Urine pH 5.5 Ur Specific [place] 1.020 Urine Protein 30 (1+) H Urine Glucose (UA) >=1000 H Urine Ketones Negative Urine Blood Large (3+) H Urine Nitrite Negative Ur Leukocyte Esterase Moderate (2+) H Urine RBC >20 H Urine WBC 11-20 H Ur Squamous Epith Cells 0-2 Urine Bacteria 4+ Hyaline Casts 0-2 Nasal Screen MRSA (PCR) Nasal S. aureus Screen Nasal MRSA/S.aureus Interp 06/03/25 06/03/25 06/03/25 07:47 11:04 12:30 MCV MCH MCHC RDW Plt Count MPV Immature Gran % (Auto) Neut % (Auto) Lymph % (Auto) [place] % (Auto) Eos % (Auto) Baso % (Auto) Lymph # (Auto) [place] # (Auto) Eos # (Auto) Baso # (Auto) Abs Immat Gran (auto) Absolute Neuts (auto) Absolute Nucleated RBC Nucleated RBC % (auto) Smear Tech's Comments Anion Gap Estim Creat Clear Calc Estimated GFR POC Glucose 139 H 139 H Random Glucose Calcium Iron TIBC % Saturation Unsat Iron Binding Ferritin NT-Pro-B Natriuret Pep TSH Urine Color Urine Appearance Urine pH Ur Specific Wheeler Urine Protein Urine Glucose (UA) Urine Ketones Urine Blood Urine Nitrite Ur Leukocyte Esterase Urine RBC Urine WBC Ur Squamous Epith Cells Urine Bacteria Hyaline Casts Nasal Screen MRSA (PCR) NEGATIVE Nasal S. aureus Screen NEGATIVE Nasal MRSA/S.aureus Interp SEE NOTE 06/03/25 15:20 MCV MCH MCHC RDW Plt Count MPV Immature Gran % (Auto) Neut % (Auto) Lymph % (Auto) [place] % (Auto) Eos % (Auto) Baso % (Auto) Lymph # (Auto) [place] # (Auto) Eos # (Auto) Baso # (Auto) Abs Immat Gran (auto) Absolute Neuts (auto) Absolute Nucleated RBC Nucleated RBC % (auto) Smear Tech's Comments Anion Gap Estim Creat Clear Calc Estimated GFR POC Glucose 191 H Random Glucose Calcium Iron TIBC % Saturation Unsat Iron Binding Ferritin NT-Pro-B Natriuret Pep TSH Urine Color Urine Appearance Urine pH Ur Specific [place] Urine Protein Urine Glucose (UA) Urine Ketones Urine Blood Urine Nitrite Ur Leukocyte Esterase Urine RBC Urine WBC Ur Squamous Epith Cells Urine Bacteria Hyaline Casts Nasal Screen MRSA (PCR) Nasal S. aureus Screen Nasal MRSA/S.aureus Interp Microbiology Microbiology Results: Microbiology 06/02/25 Unknown Urine Culture - Preliminary Urine clean catch - Clean Catch Midstream Culture in progress. 06/01/25 22:32 Blood Culture - Preliminary Blood - Venous No growth after 24 hours. 06/01/25 22:32 Blood Culture - Preliminary Blood - Venous No growth after 24 hours. Assessment and Plan (1) Diastolic heart failure with preserved ejection fraction: Status: Acute (2) Bilateral pneumonia: Status: Acute Plan d2, 85yo F with UC on azathioprine and budesonide, diastolic HF, HTN, CAD s/p PCI, hx DVT now on apixaban presenting with cough and episode of hypoxia to 80s, found to have pneumonia and CHF exacerbation acute hypoxic respiratory failure and severe sepsis due to bilateral pneumonia in immunosuppressed patient, and acute/chronic HFpEF - likely postviral [pt's RPP positive for parainfluenza; symptoms worsened over last couple of weeks] - 06/02- piperacillin-tazobactam given need for coverage of resistant Gram-negatives and anaerobes as well as pneumococcus, doxycycline for atypicals [MRSA swab negative; also had reaction to vancomycin as above]; check urinary antigens for Legionella and pneumococcus; trend PCT; follow BCx [negative to date] - IV furosemide, Cardiology following; monitor NT-pro-BNP, lytes, I/O, wts. TTE 05/13/25: 1. Low normal LV ejection fraction of 50-55% with grade 2 diastolic dysfunction 2. Mild aortic stenosis 3. Upper limits of normal RV systolic pressure with mildly elevated right atrial pressures 4. Mildly dilated left atrium 5. No gross pericardial effusion - continue metoprolol succinate, Imdur, Jardiance - on stress-dose hydrocortisone; wean over next 2d to usual dose of budesonide for UC - weaned off O2 prerenal ALTAGRACIA - resolved after IV fluid resuscitation iron deficiency anemia - replete Fe HLD - atorvastatin UC - continue azathioprine, steroids as above hx DVT - resume apixaban RLS - gabapentin, ropinirole DM2 - correction-dose lispro, Jardiance; held MTF VTE ppx: apixaban dispo: TBD In my clinical judgment, the patient requires continued inpatient hospitalization for the following reasons: IV ABX, immunosuppression, IV diuresis Total time managing care of this patient today: 50 minutes. Quality Stroke Does the patient have a stroke diagnosis?: No VTE Prior VTE?: Yes VTE Risk Level:: Medical - moderate - high VTE Device Contraindication: Treatment Not Indicated VTE Drug Contraindication: N/A - Med Ordered
[2025-06-03 19:29] LABS: CDiff Gene PCR POSITIVE (Negative)
[2025-06-03 20:03] LABS: CDIFF Internal ctrl Dots and bkg OK (V)
[2025-06-03 20:17] LABS: CDiff Toxin Negative (Negative)
[2025-06-03 20:52] LABS: Glucose, Whole Blood 116 mg/dL (60-115)
[2025-06-04] VITALS (10 sets, daily range): BP systolic 98–133; BP diastolic 52–60; PULSE 56–86; RESP 16–18; TEMP 36.1–37.1; O2SAT 92–97
[2025-06-04 05:48] LABS: MANUAL DIFF FLAG NO
[2025-06-04 05:56] LABS: Hematocrit 26.3 % (37.0-47.0); Hemoglobin 8.1 g/dl (12.0-16.0); Imm Gran Abs Auto 0.07 X10*3/uL (0.00-0.03); Imm Gran Pct Auto 1.0 % (0.0-0.4); Lymphocytes Absolute Auto 0.6 X10*3/uL (1.2-4.9); Mean Corpuscular HGB Conc 30.8 g/dl (31.0-35.0); Mean Corpuscular Hemoglobin 23.0 pg (27.0-33.0); Mean Corpuscular Volume 74.7 fL (80.0-98.0); NRBC Abs Auto 0.000 X10*3/uL (0.0-0.012); NRBC Pct Auto 0.0 /100WBC (0.0-0.2); Platelet Count 468 X10*3/uL (160-400); Red Blood Count 3.52 X10*6/uL (4.20-5.50); White Blood Count 7.2 X10*3/uL (4.8-10.8)
[2025-06-04 06:23] LABS: Anion Gap 13 (12-20); Blood Urea Nitrogen 24 mg/dL (9-16); Calcium 8.3 mg/dL (8.4-10.2); Carbon Dioxide 29 mmol/L (22-29); Chloride 106 mmol/L (96-108); Creatinine Clr Calc Pharmacy 34.1; Estimated Glomerular Filt Rate 45; Magnesium 1.6 mg/dL (1.6-2.6); Potassium 3.0 mmol/L (3.3-5.1); Sodium 145 mmol/L (135-145)
[2025-06-04 06:38] LABS: Procalcitonin 0.44 ng/mL
[2025-06-04 07:13] LABS: Glucose, Whole Blood 149 mg/dL (60-115)
[2025-06-04] MEDS: Potassium Chloride ER 20 MEQ TAB.ER.PRT 40 MEQ PO (08:24)
[2025-06-04] MEDS: Metoprolol Succinate ER 25 MG TAB.ER.24H PO (08:25)
[2025-06-04] MEDS: Ferrous Sulfate 324 MG TABLET.DR PO (08:26)
[2025-06-04] MEDS: Hydrocortisone Sod Succ/PF 100 MG VIAL 25 MG IVPUSH ×2 (08:26→20:30)
[2025-06-04] MEDS: 0.9 % Sodium Chloride Flush 3 ML SYRINGE IVFLUSH ×3 (08:26→20:33)
[2025-06-04 10:04] LABS: E. coli EAEC Not Detected (Not Detect.); E. coli EPEC Not Detected (Not Detect.); E. coli ETEC Not Detected (Not Detect.); E. coli STEC Not Detected (Not Detect.); Shigella sp./EIEC Not Detected (Not Detect.)
[2025-06-04] MEDS: Furosemide 40 MG/4 ML VIAL IVPUSH ×2 (10:11→16:37)
[2025-06-04 11:11] LABS: Glucose, Whole Blood 164 mg/dL (60-115)
--- NOTE | 2025-06-04 12:21 | P.PNIM_ITS ---
Subjective Subjective Date of Service: 06/04/25 Interval History: diarrhea improving still has a very wet cough no fever Review of Systems Review of Systems: Yes all other systems are reviewed and are negative Physical Exam 2 Vital Signs: Vital Signs: Last Vital Signs Temp 98.2 F 06/04/25 11:08 Pulse 58 06/04/25 11:08 Resp 16 06/04/25 11:08 BP 129/57 L 06/04/25 11:08 Pulse Ox 92 06/04/25 11:08 O2 Del Method Room Air 06/04/25 11:08 O2 Flow Rate 1 06/04/25 03:00 Oxygen Flow Rate 3 06/01/25 23:14 BMI result Body Mass Index 26.8 Gen: in no acute distress HEENT: sclera anicteric, moist mucus membranes Neck: supple, JVD Lungs: coarse wet inspiratory crackles bilaterally at bases Heart: regular rate and rhythm, no murmurs Abd: soft, non-tender, non-distended Ext: no edema Skin: warm/well-perfused Neuro: alert and oriented x3, no focal findings Psych: appropriate affect Objective Data Active Medications Acetaminophen (Acetaminophen 325 Mg Tablet) 650 mg PO Q6H PRN PRN Reason: Pain, Mild 1-3,fever,headache Albuterol Sulfate (Albuterol Sulfate 90 Mcg 8 Gm Inhaler) 1 puff INHALE Q4H PRN PRN Reason: Shortness Of Breath Or Wheezing Albuterol/Ipratropium (Albuterol/Iprat 2.5/0.5mg 3 Ml Ampul.Neb) 3 ml INHALE RTID [facility] Last Admin: 06/04/25 07:50 Dose: Not Given Documented By: LALO Non-Admin Reason: Patient Asleep Apixaban (Apixaban 5 Mg Tablet) 5 mg PO BID [facility] Last Admin: 06/04/25 08:26 Dose: 5 mg Documented By: REJI Atorvastatin Calcium (Atorvastatin Calcium 40 Mg Tablet) 40 mg PO BEDTIME [facility] Last Admin: 06/03/25 21:10 Dose: 40 mg Documented By: KARSTEN Azathioprine (Azathioprine 50 Mg Tablet) 50 mg PO BID [facility] Last Admin: 06/04/25 08:23 Dose: 50 mg Documented By: REJI Benzonatate (Benzonatate 100 Mg Capsule) 100 mg PO TID PRN PRN Reason: Cough Last Admin: 06/04/25 03:48 Dose: 100 mg Documented By: KARSTEN Bisacodyl (Bisacodyl 10 Mg Supp.Rect) 10 mg SC DAILY PRN PRN Reason: Constipation Budesonide (Budesonide Dr 3 Mg Capsule) 9 mg PO DAILY [facility] Calcium Carbonate (Calcium Carbonate 750 Mg Tab.Chew) 750 mg PO Q4H PRN PRN Reason: Heartburn Dextrose (Dextrose 50 % 25 Gm/50 Ml Syringe) 25 gm IVPUSH Q15M PRN; Protocol PRN Reason: per Hypoglycemia Standing Ord. Duloxetine HCl (Duloxetine Hcl 20 Mg Capsule.) 20 mg PO BEDTIME [facility] Last Admin: 06/03/25 21:10 Dose: 20 mg Documented By: KARSTEN Empagliflozin (Empagliflozin 10 Mg Tablet) 10 mg PO DAILY [facility] Last Admin: 06/04/25 08:26 Dose: 10 mg Documented By: REJI Ferrous Sulfate (Ferrous Sulfate 324 Mg Tablet.) 324 mg PO DAILY [facility] Last Admin: 06/04/25 08:26 Dose: 324 mg Documented By: REJI Furosemide (Furosemide 40 Mg/4 Ml Vial) 40 mg IVPUSH BID@0900,1800 [facility]; Protocol Last Admin: 06/04/25 10:11 Dose: 40 mg Documented By: REJI Gabapentin (Gabapentin 300 Mg Capsule) 300 mg PO TID [facility] Last Admin: 06/04/25 08:25 Dose: 300 mg Documented By: REJI Glucose (Glucose Gel 15 Gm Gel..Gram.) 15 gm PO Q15M PRN; Protocol PRN Reason: per Hypoglycemia Standing Ord. Hydrocortisone Sodium Succinate (Hydrocortisone Sod Succ/Pf 100 Mg Vial) 25 mg IVPUSH Q12H [facility] Stop: 06/04/25 20:31 Last Admin: 06/04/25 08:26 Dose: 25 mg Documented By: REJI Piperacillin Sod/Tazobactam (Sod 3.375 gm/ Sodium Chloride) 50 mls @ 100 mls/hr IV Q6H [facility] Last Admin: 06/04/25 11:55 Dose: 100 mls/hr Documented By: REJI Doxycycline Hyclate 100 mg/ (Sodium Chloride) 250 mls @ 166.67 mls/hr IV Q12H [facility] Last Infusion: 06/04/25 05:13 Dose: Infused Documented By: KARSTEN Insulin Human Lispro (Insulin Lispro 100 Unit/Ml 3 Ml Vial) 0 unit SUBCUT QIDACHS [facility]; Protocol Last Admin: 06/04/25 11:55 Dose: 2 unit Documented By: REJI Isosorbide Mononitrate (Isosorbide Mononitrate 30 Mg Tab.Er.24h) 30 mg PO BEDTIME [facility]; Protocol Last Admin: 06/03/25 21:14 Dose: 30 mg Documented By: KARSTEN Levothyroxine Sodium (Levothyroxine Sodium 50 Mcg Tablet) 50 mcg PO DAILY [facility] On Hold: 06/03/25 11:01 Last Admin: 06/03/25 09:58 Dose: 50 mcg Documented By: REJI Magnesium Hydroxide (Milk Of Magnesia 30 Ml Oral.Susp) 30 ml PO DAILY PRN PRN Reason: Constipation Melatonin (Melatonin 3 Mg Tablet) 6 mg PO BEDTIME PRN PRN Reason: Insomnia Last Admin: 06/02/25 22:14 Dose: 6 mg Documented By: JESICA Melatonin (Melatonin 3 Mg Tablet) 3 mg PO BEDTIME [facility] Last Admin: 06/03/25 21:10 Dose: 3 mg Documented By: KARSTEN Metoprolol Succinate (Metoprolol Succinate Er 25 Mg Tab.Er.24h) 25 mg PO DAILY [facility]; Protocol Last Admin: 06/04/25 08:25 Dose: 25 mg Documented By: REJI Nitroglycerin (Nitroglycerin 0.4 Mg Tab.Subl) 0.4 mg SUBLINGUAL Q5M PRN PRN Reason: Chest Pain Last Admin: 06/04/25 05:32 Dose: 0.4 mg Documented By: KARSTEN Oxycodone HCl (Oxycodone Hcl Immed Release 5 Mg Tablet) 5 mg PO Q6H PRN PRN Reason: Pain, Severe (Pain Scale 7-10) Last Admin: 06/03/25 21:10 Dose: 5 mg Documented By: KARSTEN Polyethylene Glycol (Polyethylene Glycol 3350 17 Gm Powd.Pack) 17 gm PO DAILY PRN PRN Reason: Constipation Ropinirole HCl (Ropinirole Hcl 0.5 Mg Tablet) 0.5 mg PO TID [facility] Last Admin: 06/04/25 08:25 Dose: 0.5 mg Documented By: REJI Ropinirole HCl (Ropinirole Hcl 0.5 Mg Tablet) 0.5 mg PO DAILY PRN PRN Reason: restless legs Last Admin: 06/04/25 06:02 Dose: 0.5 mg Documented By: KARSTEN Sodium Biphosphate/Sodium Phosphate (Sodium Phosphate,[place]-Dibasic 133 Ml Enema) 118 ml SC DAILY PRN PRN Reason: Constipation Sodium Chloride (0.9 % Sodium Chloride Flush 3 Ml Syringe) 3 ml IVFLUSH QSHIFT [facility] Last Admin: 06/04/25 08:26 Dose: 3 ml Documented By: REJI Tramadol HCl (Tramadol Hcl 50 Mg Tablet) 50 mg PO Q6H PRN PRN Reason: Pain, Moderate(Pain Scale 4-6) Last Admin: 06/02/25 22:13 Dose: 50 mg Documented By: JESICA Trazodone HCl (Trazodone Hcl 50 Mg Tablet) 50 mg PO BEDTIME [facility] Last Admin: 06/03/25 21:10 Dose: 50 mg Documented By: KARSTEN Vancomycin HCl (Vancomycin Hcl 125 Mg Capsule) 125 mg PO QID [facility] Last Admin: 06/04/25 12:00 Dose: 125 mg Documented By: REJI Labs 06/04/25 05:21 06/04/25 05:21 Labs: Laboratory Results - last 24 hr 06/03/25 06/03/25 06/03/25 12:30 15:20 18:05 MCV MCH MCHC RDW Plt Count MPV Immature Gran % (Auto) Neut % (Auto) Lymph % (Auto) [place] % (Auto) Eos % (Auto) Baso % (Auto) Lymph # (Auto) [place] # (Auto) Eos # (Auto) Baso # (Auto) Abs Immat Gran (auto) Absolute Neuts (auto) Absolute Nucleated RBC Nucleated RBC % (auto) Anion Gap Estim Creat Clear Calc Estimated GFR POC Glucose 191 H Random Glucose Calcium Magnesium NT-Pro-B Natriuret Pep Procalcitonin Nasal Screen MRSA (PCR) NEGATIVE Nasal S. aureus Screen NEGATIVE Nasal MRSA/S.aureus Interp SEE NOTE Stl C. cayetanensis PCR Not Detected Stool Rotavirus A PCR Not Detected Stl Adenov F 40/ PCR Not Detected Stool Astrovirus (PCR) Not Detected Stool Campylobacter PCR Not Detected Stool Cryptosporidium PCR Not Detected Stl Sh Tox Pr E STEC PCR Not Detected Stool E coli O157 PCR Not applicable Stl Enterotoxigenic E PCR Not Detected Stool EPEC (PCR) Not Detected Stool EAEC (PCR) Not Detected Stl E. histolytica PCR Not Detected Stool Giardia Lamblia PCR Not Detected Stl P. shigelloides PCR Not Detected Stool Salmonella PCR Not Detected Stool Sapovirus (PCR) Not Detected Stl Shigella/EIEC PCR Not Detected St Y.enterocolitica PCR Not Detected Stool Vibrio (PCR) Not Detected Stl Vibrio cholerae PCR Not Detected Stl Norovirus GI/GII PCR Not Detected C. difficile Tox B Gene POSITIVE A* C. difficile Toxin A&B Negative C. difficile Interpret SEE NOTE 06/03/25 06/04/25 06/04/25 20:48 05:21 07:03 MCV 74.7 L MCH 23.0 L MCHC 30.8 L RDW 25.3 H Plt Count 468 H MPV 9.5 Immature Gran % (Auto) 1.0 H Neut % (Auto) 85.3 H Lymph % (Auto) 8.2 L [place] % (Auto) 5.4 Eos % (Auto) 0.0 Baso % (Auto) 0.1 Lymph # (Auto) 0.6 L [place] # (Auto) 0.4 Eos # (Auto) 0.0 Baso # (Auto) 0.0 Abs Immat Gran (auto) 0.07 H Absolute Neuts (auto) 6.2 Absolute Nucleated RBC 0.000 Nucleated RBC % (auto) 0.0 Anion Gap 13 Estim Creat Clear Calc 34.1 Estimated GFR 45 POC Glucose 116 H 149 H Random Glucose 168 H Calcium 8.3 L D Magnesium 1.6 NT-Pro-B Natriuret Pep 3349.9 H Procalcitonin 0.44 Nasal Screen MRSA (PCR) Nasal S. aureus Screen Nasal MRSA/S.aureus Interp Stl C. cayetanensis PCR Stool Rotavirus A PCR Stl Adenov F 40/ PCR Stool Astrovirus (PCR) Stool Campylobacter PCR Stool Cryptosporidium PCR Stl Sh Tox Pr E STEC PCR Stool E coli O157 PCR Stl Enterotoxigenic E PCR Stool EPEC (PCR) Stool EAEC (PCR) Stl E. histolytica PCR Stool Giardia Lamblia PCR Stl P. shigelloides PCR Stool Salmonella PCR Stool Sapovirus (PCR) Stl Shigella/EIEC PCR St Y.enterocolitica PCR Stool Vibrio (PCR) Stl Vibrio cholerae PCR Stl Norovirus GI/GII PCR C. difficile Tox B Gene C. difficile Toxin A&B C. difficile Interpret 06/04/25 11:05 MCV MCH MCHC RDW Plt Count MPV Immature Gran % (Auto) Neut % (Auto) Lymph % (Auto) [place] % (Auto) Eos % (Auto) Baso % (Auto) Lymph # (Auto) [place] # (Auto) Eos # (Auto) Baso # (Auto) Abs Immat Gran (auto) Absolute Neuts (auto) Absolute Nucleated RBC Nucleated RBC % (auto) Anion Gap Estim Creat Clear Calc Estimated GFR POC Glucose 164 H Random Glucose Calcium Magnesium NT-Pro-B Natriuret Pep Procalcitonin Nasal Screen MRSA (PCR) Nasal S. aureus Screen Nasal MRSA/S.aureus Interp Stl C. cayetanensis PCR Stool Rotavirus A PCR Stl Adenov F 40/41 PCR Stool Astrovirus (PCR) Stool Campylobacter PCR Stool Cryptosporidium PCR Stl Sh Tox Pr E STEC PCR Stool E coli O157 PCR Stl Enterotoxigenic E PCR Stool EPEC (PCR) Stool EAEC (PCR) Stl E. histolytica PCR Stool Giardia Lamblia PCR Stl P. shigelloides PCR Stool Salmonella PCR Stool Sapovirus (PCR) Stl Shigella/EIEC PCR St Y.enterocolitica PCR Stool Vibrio (PCR) Stl Vibrio cholerae PCR Stl Norovirus GI/GII PCR C. difficile Tox B Gene C. difficile Toxin A&B C. difficile Interpret Microbiology Microbiology Results: Microbiology 06/02/25 Unknown Urine Culture - Final Urine clean catch - Clean Catch Midstream 06/01/25 22:32 Blood Culture - Preliminary Blood - Venous No growth after 48 hours. 06/01/25 22:32 Blood Culture - Preliminary Blood - Venous No growth after 48 hours. Assessment and Plan (1) Diastolic heart failure with preserved ejection fraction: Status: Acute (2) Bilateral pneumonia: Status: Acute Plan d3, 85yo F with UC on azathioprine and budesonide, diastolic HF, HTN, CAD s/p PCI, hx DVT now on apixaban presenting with cough and episode of hypoxia to 80s, found to have pneumonia and CHF exacerbation acute hypoxic respiratory failure and severe sepsis due to bilateral pneumonia in immunosuppressed patient, and acute/chronic HFpEF - likely postviral bacterial pneumonia [pt's RPP positive for parainfluenza; symptoms worsened over last couple of weeks] - 06/02- piperacillin-tazobactam given need for coverage of resistant Gram- negatives and anaerobes as well as pneumococcus, doxycycline for atypicals [MRSA swab negative; also had reaction to vancomycin as above]; urinary antigens for Legionella and pneumococcus pending; trend PCT; follow BCx [negative to date] - continue IV furosemide for 1 more day; Cardiology consulted; monitor NT-pro-BNP, lytes, I/O, wts. TTE 05/13/25: 1. Low normal LV ejection fraction of 50-55% with grade 2 diastolic dysfunction 2. Mild aortic stenosis 3. Upper limits of normal RV systolic pressure with mildly elevated right atrial pressures 4. Mildly dilated left atrium 5. No gross pericardial effusion - continue metoprolol succinate, Imdur, Jardiance - on stress-dose hydrocortisone; wean to usual dose of budesonide for UC by tomorrow - weaned off O2 C. difficile colonization - given risk of severe infection with immunosuppression, will give PO vancomycin while on antibiotics for PNA ALTAGRACIA - resolved after diuresis; was likely cardiorenal iron deficiency anemia - replete Fe HLD - atorvastatin UC - continue azathioprine, steroids as above hx DVT - resumed apixaban RLS - gabapentin, ropinirole DM2 - correction-dose lispro, Jardiance; held MTF VTE ppx: apixaban dispo: STR In my clinical judgment, the patient requires continued inpatient hospitalization for the following reasons: IV ABX, immunosuppression, IV diuresis Total time managing care of this patient today: 45 minutes. Quality Stroke Does the patient have a stroke diagnosis?: No VTE Prior VTE?: Yes VTE Risk Level:: Medical - moderate - high VTE Device Contraindication: Treatment Not Indicated VTE Drug Contraindication: N/A - Med Ordered
[2025-06-04] MEDS: Albuterol/Iprat 2.5/0.5MG 3 ML AMPUL.NEB INHALE (15:31)
[2025-06-04 16:17] LABS: Glucose, Whole Blood 163 mg/dL (60-115)
[2025-06-04 20:22] LABS: Glucose, Whole Blood 122 mg/dL (60-115)
[2025-06-05] VITALS (7 sets, daily range): BP systolic 104–135; BP diastolic 50–64; PULSE 65–91; RESP 18–20; TEMP 36.4–37.1; O2SAT 91–99
--- NOTE | 2025-06-05 | ECG_ITS ---
Test Reason : chest pain Blood Pressure : */* mmHG Vent. Rate : 85 BPM Atrial Rate : 85 BPM P-R Int : 172 ms QRS Dur : 104 ms QT Int : 394 ms P-R-T Axes : 29 -36 40 degrees QTcB Int : 468 ms Sinus rhythm with occasional Premature ventricular complexes and Premature atrial complexes Left axis deviation Minimal voltage criteria for LVH, may be normal variant ( Pennock product ) Cannot rule out Anterior infarct , age undetermined Abnormal ECG When compared with ECG of 01-Jun-2025 22:35, Premature ventricular complexes are now Present Premature atrial complexes are now Present Nonspecific T wave abnormality, improved in Anterolateral leads Referred By: Robert Rivera Electronically Signed By: JESSICA SANDOVAL MD
[2025-06-05] MEDS: guaiFEN/Codeine SF 200/20/10ML 10 ML LIQUID PO ×2 (00:12→08:29)
[2025-06-05 07:26] LABS: Glucose, Whole Blood 129 mg/dL (60-115)
[2025-06-05 07:31] LABS: Hematocrit 27.5 % (37.0-47.0); Hemoglobin 8.3 g/dl (12.0-16.0); Mean Corpuscular HGB Conc 30.2 g/dl (31.0-35.0); Mean Corpuscular Hemoglobin 22.6 pg (27.0-33.0); Mean Corpuscular Volume 74.9 fL (80.0-98.0); NRBC Abs Auto 0.000 X10*3/uL (0.0-0.012); NRBC Pct Auto 0.0 /100WBC (0.0-0.2); Platelet Count 457 X10*3/uL (160-400); Red Blood Count 3.67 X10*6/uL (4.20-5.50); White Blood Count 5.5 X10*3/uL (4.8-10.8)
[2025-06-05 07:43] LABS: Anion Gap 14 (12-20); Blood Urea Nitrogen 27 mg/dL (9-16); Calcium 8.2 mg/dL (8.4-10.2); Carbon Dioxide 31 mmol/L (22-29); Chloride 104 mmol/L (96-108); Creatinine Clr Calc Pharmacy 38.5; Estimated Glomerular Filt Rate 52; Magnesium 1.6 mg/dL (1.6-2.6); Potassium 3.1 mmol/L (3.3-5.1); Sodium 146 mmol/L (135-145)
[2025-06-05 07:54] LABS: NT Pro B Type Natriuretic Pept 1016.9 pg/mL (<300)
[2025-06-05] MEDS: Budesonide DR 3 MG Capsule 9 MG PO (08:28)
[2025-06-05] MEDS: Metoprolol Succinate ER 25 MG TAB.ER.24H PO (08:28)
[2025-06-05] MEDS: Potassium Chloride Packet 20 MEQ PACKET 40 MEQ PO (08:29)
[2025-06-05] MEDS: Ferrous Sulfate 324 MG TABLET.DR PO (08:29)
[2025-06-05] MEDS: 0.9 % Sodium Chloride Flush 3 ML SYRINGE IVFLUSH ×3 (08:30→23:39)
[2025-06-05 08:51] LABS: OBS Int Ctl Valid YES; OBS1 NEGATIVE (NEGATIVE)
--- NOTE | 2025-06-05 10:19 | MHC.CM.PN ---
Per ROUNDS discussion, Patient is not yet medically cleared for dc (will be switched to oral ABX today); Goal is to return to LTC and CM will continue to follow.
--- NOTE | 2025-06-05 10:54 | P.PNIM_ITS ---
Subjective Subjective Date of Service: 06/05/25 Interval History: breathing and cough improved has had some stabbing chest pain that woke her up from sleep the last 2 nights; tender in sternum but states this is different from the chest pain Review of Systems Review of Systems: Yes all other systems are reviewed and are negative Physical Exam 2 Vital Signs: Vital Signs: Last Vital Signs Temp 97.5 F 06/05/25 07:29 Pulse 65 06/05/25 07:29 Resp 20 06/05/25 07:29 BP 120/58 L 06/05/25 07:29 Pulse Ox 99 06/05/25 07:29 O2 Del Method Room Air 06/05/25 07:29 O2 Flow Rate 1 06/05/25 03:38 Oxygen Flow Rate 3 06/01/25 23:14 BMI result Body Mass Index 26.8 Gen: in no acute distress HEENT: sclera anicteric, moist mucus membranes Neck: supple, no JVD Lungs: diminished bilateral bases Heart: regular rate and rhythm, no murmurs Abd: soft, non-tender, non-distended Ext: no edema Skin: warm/well-perfused, healed wounds on legs Neuro: alert and oriented x3, no focal findings Psych: appropriate affect Objective Data Active Medications Acetaminophen (Acetaminophen 325 Mg Tablet) 650 mg PO Q6H PRN PRN Reason: Pain, Mild 1-3,fever,headache Albuterol Sulfate (Albuterol Sulfate 90 Mcg 8 Gm Inhaler) 1 puff INHALE Q4H PRN PRN Reason: Shortness Of Breath Or Wheezing Albuterol/Ipratropium (Albuterol/Iprat 2.5/0.5mg 3 Ml Ampul.Neb) 3 ml INHALE RTID [facility] Last Admin: 06/05/25 07:49 Dose: Not Given Documented By: SHANE Non-Admin Reason: Patient Refused Apixaban (Apixaban 5 Mg Tablet) 5 mg PO BID [facility] Last Admin: 06/05/25 08:29 Dose: 5 mg Documented By: ERICKA Atorvastatin Calcium (Atorvastatin Calcium 40 Mg Tablet) 40 mg PO BEDTIME [facility] Last Admin: 06/04/25 20:28 Dose: 40 mg Documented By: KARSTEN Azathioprine (Azathioprine 50 Mg Tablet) 50 mg PO BID [facility] Last Admin: 06/05/25 08:29 Dose: 50 mg Documented By: ERICKA Benzonatate (Benzonatate 100 Mg Capsule) 100 mg PO TID PRN PRN Reason: Cough Last Admin: 06/04/25 16:05 Dose: 100 mg Documented By: REJI Bisacodyl (Bisacodyl 10 Mg Supp.Rect) 10 mg SC DAILY PRN PRN Reason: Constipation Budesonide (Budesonide Dr 3 Mg Capsule) 9 mg PO DAILY [facility] Last Admin: 06/05/25 08:28 Dose: 9 mg Documented By: ERICKA Calcium Carbonate (Calcium Carbonate 750 Mg Tab.Chew) 750 mg PO Q4H PRN PRN Reason: Heartburn Dextrose (Dextrose 50 % 25 Gm/50 Ml Syringe) 25 gm IVPUSH Q15M PRN; Protocol PRN Reason: per Hypoglycemia Standing Ord. Duloxetine HCl (Duloxetine Hcl 20 Mg Capsule.) 20 mg PO BEDTIME [facility] Last Admin: 06/04/25 20:28 Dose: 20 mg Documented By: KARSTEN Empagliflozin (Empagliflozin 10 Mg Tablet) 10 mg PO DAILY [facility] Last Admin: 06/05/25 08:29 Dose: 10 mg Documented By: ERICKA Ferrous Sulfate (Ferrous Sulfate 324 Mg Tablet.) 324 mg PO DAILY [facility] Last Admin: 06/05/25 08:29 Dose: 324 mg Documented By: ERICKA Gabapentin (Gabapentin 300 Mg Capsule) 300 mg PO TID [facility] Last Admin: 06/05/25 08:28 Dose: 300 mg Documented By: ERICKA Glucose (Glucose Gel 15 Gm Gel..Gram.) 15 gm PO Q15M PRN; Protocol PRN Reason: per Hypoglycemia Standing Ord. Guaifenesin/Codeine Phosphate (Guaifen/Codeine Sf 200/20/10ml 10 Ml Liquid) 10 ml PO Q4H PRN PRN Reason: Cough Last Admin: 06/05/25 08:29 Dose: 10 ml Documented By: ERICKA Piperacillin Sod/Tazobactam (Sod 3.375 gm/ Sodium Chloride) 50 mls @ 100 mls/hr IV Q6H [facility] Last Infusion: 06/05/25 06:15 Dose: Infused Documented By: KARSTEN Doxycycline Hyclate 100 mg/ (Sodium Chloride) 250 mls @ 166.67 mls/hr IV Q12H [facility] Last Infusion: 06/05/25 05:23 Dose: Infused Documented By: KARSTEN Insulin Human Lispro (Insulin Lispro 100 Unit/Ml 3 Ml Vial) 0 unit SUBCUT QIDACHS [facility]; Protocol Last Admin: 06/05/25 07:36 Dose: Not Given Documented By: ERICKA Non-Admin Reason: No Insulin Coverage Isosorbide Mononitrate (Isosorbide Mononitrate 30 Mg Tab.Er.24h) 30 mg PO BEDTIME [facility]; Protocol Last Admin: 06/04/25 20:28 Dose: 30 mg Documented By: KARSTEN Levothyroxine Sodium (Levothyroxine Sodium 50 Mcg Tablet) 50 mcg PO DAILY [facility] On Hold: 06/03/25 11:01 Last Admin: 06/03/25 09:58 Dose: 50 mcg Documented By: REJI Magnesium Hydroxide (Milk Of Magnesia 30 Ml Oral.Susp) 30 ml PO DAILY PRN PRN Reason: Constipation Melatonin (Melatonin 3 Mg Tablet) 6 mg PO BEDTIME PRN PRN Reason: Insomnia Last Admin: 06/02/25 22:14 Dose: 6 mg Documented By: JESICA Melatonin (Melatonin 3 Mg Tablet) 3 mg PO BEDTIME [facility] Last Admin: 06/04/25 20:28 Dose: 3 mg Documented By: KARSTEN Metoprolol Succinate (Metoprolol Succinate Er 25 Mg Tab.Er.24h) 25 mg PO DAILY [facility]; Protocol Last Admin: 06/05/25 08:28 Dose: 25 mg Documented By: ERICKA Nitroglycerin (Nitroglycerin 0.4 Mg Tab.Subl) 0.4 mg SUBLINGUAL Q5M PRN PRN Reason: Chest Pain Last Admin: 06/04/25 20:30 Dose: 0.4 mg Documented By: KARSTEN Oxycodone HCl (Oxycodone Hcl Immed Release 5 Mg Tablet) 5 mg PO Q6H PRN PRN Reason: Pain, Severe (Pain Scale 7-10) Last Admin: 06/03/25 21:10 Dose: 5 mg Documented By: KARSTEN Polyethylene Glycol (Polyethylene Glycol 3350 17 Gm Powd.Pack) 17 gm PO DAILY PRN PRN Reason: Constipation Ropinirole HCl (Ropinirole Hcl 0.5 Mg Tablet) 0.5 mg PO TID [facility] Last Admin: 06/05/25 08:29 Dose: 0.5 mg Documented By: ERICKA Ropinirole HCl (Ropinirole Hcl 0.5 Mg Tablet) 0.5 mg PO DAILY PRN PRN Reason: restless legs Last Admin: 06/04/25 06:02 Dose: 0.5 mg Documented By: KARSTEN Sodium Biphosphate/Sodium Phosphate (Sodium Phosphate,[place]-Dibasic 133 Ml Enema) 118 ml SC DAILY PRN PRN Reason: Constipation Sodium Chloride (0.9 % Sodium Chloride Flush 3 Ml Syringe) 3 ml IVFLUSH QSHIFT [facility] Last Admin: 06/05/25 08:30 Dose: 3 ml Documented By: ERICKA Torsemide (Torsemide 20 Mg Tablet) 40 mg PO DAILY [facility]; Protocol Last Admin: 06/05/25 08:28 Dose: 40 mg Documented By: ERICKA Tramadol HCl (Tramadol Hcl 50 Mg Tablet) 50 mg PO Q6H PRN PRN Reason: Pain, Moderate(Pain Scale 4-6) Last Admin: 06/02/25 22:13 Dose: 50 mg Documented By: JESICA Trazodone HCl (Trazodone Hcl 50 Mg Tablet) 50 mg PO BEDTIME [facility] Last Admin: 06/04/25 20:28 Dose: 50 mg Documented By: KARSTEN Vancomycin HCl (Vancomycin Hcl 125 Mg Capsule) 125 mg PO QID [facility] Last Admin: 06/05/25 08:28 Dose: 125 mg Documented By: ERICKA Labs 06/05/25 06:33 06/05/25 06:33 Labs: Laboratory Results - last 24 hr 06/04/25 06/04/25 06/04/25 11:05 16:14 20:19 MCV MCH MCHC RDW Plt Count MPV Absolute Nucleated RBC Nucleated RBC % (auto) Anion Gap Estim Creat Clear Calc Estimated GFR POC Glucose 164 H 163 H 122 H Random Glucose Calcium Magnesium NT-Pro-B Natriuret Pep Stool Occult Blood 06/05/25 06/05/25 06/05/25 06:33 07:19 08:38 MCV 74.9 L MCH 22.6 L MCHC 30.2 L RDW 25.2 H Plt Count 457 H MPV 9.3 L Absolute Nucleated RBC 0.000 Nucleated RBC % (auto) 0.0 Anion Gap 14 Estim Creat Clear Calc 38.5 Estimated GFR 52 POC Glucose 129 H Random Glucose 137 H Calcium 8.2 L Magnesium 1.6 NT-Pro-B Natriuret Pep 1016.9 H Stool Occult Blood NEGATIVE Microbiology Microbiology Results: Microbiology 06/02/25 Unknown Urine Culture - Final Urine clean catch - Clean Catch Midstream Assessment and Plan (1) Diastolic heart failure with preserved ejection fraction: Status: Acute (2) Bilateral pneumonia: Status: Acute Plan d4, 85yo F with UC on azathioprine and budesonide, diastolic HF, HTN, CAD s/p PCI, hx DVT now on apixaban presenting with cough and episode of hypoxia to 80s, found to have pneumonia and CHF exacerbation acute hypoxic respiratory failure and severe sepsis due to bilateral pneumonia in immunosuppressed patient, and acute/chronic HFpEF - likely postviral bacterial pneumonia [pt's RPP positive for parainfluenza; symptoms worsened over last couple of weeks] - 06/02- piperacillin-tazobactam given need for coverage of resistant Gram- negatives and anaerobes as well as pneumococcus, doxycycline for atypicals [MRSA swab negative; also had reaction to vancomycin as above]; urinary antigens for Legionella and pneumococcus pending; BCx negative; PCT decreased; likely change to amoxicillin-clavulanate tomorrow for 3 more days - switch IV furosemide to torsemide 40 mg/d [prior dose 20 mg/d]; Cardiology consulted; monitor NT-pro-BNP, lytes, I/O, wts. TTE 05/13/25: 1. Low normal LV ejection fraction of 50-55% with grade 2 diastolic dysfunction 2. Mild aortic stenosis 3. Upper limits of normal RV systolic pressure with mildly elevated right atrial pressures 4. Mildly dilated left atrium 5. No gross pericardial effusion - continue metoprolol succinate, Imdur, Jardiance - was stress-dose hydrocortisone; weaned to usual dose of budesonide for UC - weaned off O2 hypoK: place on PO maintenance dosing, recheck BMP tomorrow hyperNa: encourage free water intake, recheck BMP tomorrow atypical chest pain: EKG, troponin C. difficile colonization: given risk of severe infection with immunosuppression, on PO vancomycin while on antibiotics for PNA ALTAGRACIA: resolved after diuresis; was likely cardiorenal iron deficiency anemia: replete Fe; FOBT negative HLD: atorvastatin UC: continue azathioprine, budesonide hx DVT: apixaban RLS: gabapentin, ropinirole DM2: correction-dose lispro, Jardiance; held MTF VTE ppx: apixaban dispo: STR In my clinical judgment, the patient requires continued inpatient hospitalization for the following reasons: IV ABX, immunosuppression Total time managing care of this patient today: 35 minutes. Quality Stroke Does the patient have a stroke diagnosis?: No VTE Prior VTE?: Yes VTE Risk Level:: Medical - moderate - high VTE Device Contraindication: Treatment Not Indicated VTE Drug Contraindication: N/A - Med Ordered
[2025-06-05 11:16] LABS: Glucose, Whole Blood 157 mg/dL (60-115)
[2025-06-05 12:08] LABS: Troponin-I High Sensitivity 11.0 ng/L (<3.5-17.0)
--- NOTE | 2025-06-05 13:17 | P.CDIM_ITS ---
PROVIDER RESPONSE TEXT: To clarify, the appropriate diagnosis supported by the clinical indicators: Pressure Injury coccyx Stage 2 QUERY TEXT: PHYSICIAN'S DOCUMENTATION REQUEST Date of Query: 06/05/2025 12:02 PM EST Patient Name: Maris Nash Admit Date: 06/02/2025 Dear Robert Rivera MD, A review of the medical record indicates additional documentation may be needed. Please review below and update the documentation accordingly. Clinical Indicators: Wound care notes 06/04/25 - Pressure injury Stage 2 coccyx. Present on Admission. Triad and foam, off load pressure with Q2 hr turns and use of pillows. Based on the above, could you please provide further information regarding the ulcer/wound/injury: Pressure Injury coccyx Stage 2 Other specified Other (explain) Clinically unable to determine (explain) Thank you, Pam Pugh, CCS, CDIS Use of terms such as suspected, likely, concern for, or probable (associated with a specific diagnosis that is being evaluated, monitored, or treated as if it exists) are acceptable and can be coded in the inpatient setting, when documented at the time of discharge. Please use your independent medical judgment in providing your response. THIS QUERY IS PART OF THE PERMANENT MEDICAL RECORD
[2025-06-05 17:31] LABS: Glucose, Whole Blood 148 mg/dL (60-115)
[2025-06-05 20:16] LABS: Glucose, Whole Blood 175 mg/dL (60-115)
[2025-06-06] MEDS: oxyCODONE HCl Immed Release 5 MG TABLET PO (00:13)
[2025-06-06 04:00] VITALS: BP 112/53; PULSE 84; RESP 17; TEMP 37.2; O2SAT 94
[2025-06-06 07:41] LABS: Glucose, Whole Blood 108 mg/dL (60-115)
[2025-06-06 07:52] LABS: Anion Gap 14 (12-20); Blood Urea Nitrogen 29 mg/dL (9-16); Calcium 8.7 mg/dL (8.4-10.2); Carbon Dioxide 30 mmol/L (22-29); Chloride 104 mmol/L (96-108); Creatinine Clr Calc Pharmacy 36.0; Estimated Glomerular Filt Rate 48; Potassium 3.2 mmol/L (3.3-5.1); Sodium 145 mmol/L (135-145)
[2025-06-06 07:53] LABS: NT Pro B Type Natriuretic Pept 856.3 pg/mL (<300)
[2025-06-06 08:00] VITALS: BP 117/66; PULSE 75; RESP 20; O2SAT 94
[2025-06-06 08:07] LABS: Procalcitonin 0.12 ng/mL
[2025-06-06 08:31] VITALS: TEMP 36.7
[2025-06-06] MEDS: Ferrous Sulfate 324 MG TABLET.DR PO (09:32)
[2025-06-06] MEDS: Metoprolol Succinate ER 25 MG TAB.ER.24H PO (09:32)
[2025-06-06] MEDS: Budesonide DR 3 MG Capsule 9 MG PO (09:32)
[2025-06-06] MEDS: 0.9 % Sodium Chloride Flush 3 ML SYRINGE IVFLUSH ×2 (09:33→16:11)
[2025-06-06 11:19] LABS: Glucose, Whole Blood 123 mg/dL (60-115)
[2025-06-06 11:55] VITALS: BP 121/86; PULSE 67; RESP 20; O2SAT 92
--- NOTE | 2025-06-06 14:43 | P.DS_ITS ---
DS: Providers Provider Date of Service: 06/06/25 Date of admission: 06/02/25 03:24 Date of discharge: 06/06/25 Primary care physician: Mick Tatum MD Consults: 06/03/25 07:20 Consult to Cardiology Routine Consulting Provider: [facility] – [place] [facility] Reason for consultation: chf 06/03/25 09:00 Consult to Wound Care Routine Consulting Provider: [facility] – [place] W[facility] Reason for consultation: Skin tears to L upper arm and R upper chest, Redness and scabs Has provider been notified: No DS: Diagnosis Discharge Diagnosis (1) Diastolic heart failure with preserved ejection fraction: Status: Acute (2) Bilateral pneumonia: Status: Acute DS: Summary Hospital Course Hospital Course: 85-year-old female PMHx significant for CHF, HTN, DVT on Eliquis, and ulcerative colitis , significant deconditioning who is now bed/wheelchair bound presented from her snf, due to hypoxia in the 80s with a cough for the past week. Cough is nonproductive, and the patient reports shortness of breath and chills. No nausea, vomiting, diarrhea or urinary symptoms including frequency, urgency or dysuria. She was recently admitted for acute CHF exacerbation with possible pneumonia, discharged on 05/15/2025. the pt is a very poor historian. Workup in the emergency room consistent with bilateral pneumonia and acute on chronic HFpEF Hospital Course Patient admitted to telemetry and started on Zosyn and doxy. (reaction to vancomycin). Noted to have prerenal azotemia that responded well to volume. She was seen by Cardiology and was given IV Lasix with good results. Last echo noted an LVEF of 50 55%. Patient' was given stress dose steroids given history of ulcerative colitis/immunosuppression. Patient continued to do well and at this point is ready to discharge can complete a course of oral antibiotics. She will follow up with the PCP upon discharge from SNF Time Attestation Discharge Coordination Time (in mins): 35 Quality: Safe Use of Opioids Does Pt have an Active Cancer Diagnosis on the Problem List?: No Quality: Stroke Does the patient have a stroke diagnosis?: No Physical Exam Vital Signs: Vital Signs: Last Vital Signs Temp 98.1 F 06/06/25 08:31 Pulse 67 06/06/25 11:55 Resp 20 06/06/25 11:55 BP 121/86 06/06/25 11:55 Pulse Ox 92 06/06/25 11:55 O2 Del Method Room Air 06/06/25 11:55 O2 Flow Rate 1 06/06/25 08:00 Oxygen Flow Rate 3 06/01/25 23:14 BMI result Body Mass Index 26.8 Const: Other: Awake alert no acute distress Resp: Other: Coarse breath sounds throughout however no rales rhonchi or wheezes Cardio: Other: No S4; positive S1-S2; no S3 murmurs rubs or gallops GI: Other: Soft nontender nondistended normoactive bowel sounds Extrem: Other: No edema bilaterally DS: Data Data Completed and Pending Completed studies during hospitalization [Text1]: Procedures Transfusion of Nonautologous Red Blood Cells into Peripheral Vein, Percutaneous Approach (05/12/25) Labs on day of discharge: Laboratory Results - last 24 hr 06/05/25 06/05/25 06/06/25 17:20 20:12 06:46 Sodium 145 Potassium 3.2 L Chloride 104 Carbon Dioxide 30 H Anion Gap 14 BUN 29 H Creatinine 1.08 Estim Creat Clear Calc 36.0 Estimated GFR 48 POC Glucose 148 H 175 H Random Glucose 100 Calcium 8.7 D NT-Pro-B Natriuret Pep 856.3 H Procalcitonin 0.12 06/06/25 06/06/25 07:36 11:15 Sodium Potassium Chloride Carbon Dioxide Anion Gap BUN Creatinine Estim Creat Clear Calc Estimated GFR POC Glucose 108 123 H Random Glucose Calcium NT-Pro-B Natriuret Pep Procalcitonin Preliminary micro results at discharge 06/01/25 22:32 Blood Culture - Preliminary Blood - Venous No growth after 48 hours. 06/01/25 22:32 Blood Culture - Preliminary Blood - Venous No growth after 48 hours. Discharge Plan Discharge Anticipated Discharge Date/Time: 06/06/25 14:32 Patient Disposition: Xfer SNF Discharge Diagnosis: Bilateral pneumonia Referrals: Mick Tatum MD [Primary Care Provider, Internal Medicine] - 1 Week Discharge Medications: New vancomycin 125 mg Capsule 125 mg PO QID Qty: 120 0RF doxycycline monohydrate 100 mg Capsule 100 mg PO Q12H Qty: 6 0RF oxycodone 5 mg Tablet 5 mg PO Q6H PRN (Reason: Pain, Severe (Pain Scale 7-10)) Qty: 30 0RF Rx Instructions: Partial Fill upon patient request. potassium chloride 20 mEq tablet extended release 40 meq PO DAILY Qty: 60 0RF torsemide 20 mg Tablet 40 mg PO DAILY Qty: 30 0RF Protocol: Hold for SBP< HOLD for SBP < : 90 amoxicillin-pot clavulanate 875-125 mg tablet 1 tab PO BID Qty: 6 0RF Continued atorvastatin 40 mg tablet 1 tab PO BEDTIME metformin 500 mg tablet 500 mg PO DAILY acetaminophen 325 mg Tablet 650 mg PO Q4H MDD 3g/24h PRN (Reason: Pain) acetaminophen 325 mg Tablet 650 mg PO Q6H MDD 3g/24h PRN (Reason: Fever) torsemide 20 mg Tablet 20 mg PO DAILY trazodone 50 mg Tablet 50 mg PO BEDTIME dextrose 40 % Gel 10 g PO Q15M PRN (Reason: Hypoglycemia) Rx Instructions: until symptoms of low blood sugar are controlled azathioprine 50 mg tablet 50 mg PO BID melatonin 3 mg Tablet 3 mg PO BEDTIME magnesium hydroxide [Milk of Magnesia] 400 mg/5 mL Suspension 30 ml PO DAILY PRN (Reason: Constipation) Rx Instructions: If no BM in 3 days levothyroxine 50 mcg Tablet 50 mcg PO DAILY bisacodyl [Dulcolax (bisacodyl)] 10 mg Suppository 10 mg ID DAILY PRN (Reason: Constipation) Rx Instructions: If no result from M.O.M ropinirole 0.5 mg tablet 0.5 mg PO TID [place] Enema 19-7 gram/118 mL Enema 118 ml ID DAILY PRN (Reason: Constipation) Rx Instructions: If no result from Dulcolax polyethylene glycol 3350 [Miralax] 17 gram/dose Powder 17 g PO DAILY PRN (Reason: Constipation) Rx Instructions: If no BM in 3 days albuterol sulfate [Ventolin HFA] 90 mcg/actuation Hfa Aerosol Inhaler 1 puff INHALATION Q4H PRN (Reason: Shortness Of Breath Or Wheezing) oxycodone 5 mg Tablet 2.5 mg PO Q6H PRN (Reason: Pain) insulin lispro [Humalog KwikPen Insulin] 100 unit/mL Insulin Pen See Protocol SUBCUT TID Protocol: Insulin Correction Scale Less than or equal to 110 ---- Give (units): 0 111 to 150 Give (units): 0 151 to 200 Give (units): 2 201 to 250 Give (units): 4 251 to 300 Give (units): 6 301 to 350 Give (units): 8 Greater than 350 Give (units): 10 Call MD if Blood Glucose > : 350 diclofenac sodium 1 % Gel 2 g TOPICAL Q6H Rx Instructions: apply to single elbow, wrist or hand; for hand includes palm/fingers/back of hand melatonin 5 mg Tablet 5 mg PO BEDTIME PRN (Reason: Sleep) naloxone 4 mg/actuation [place],Non-Aerosol 4 mg INTRANASAL Q2M PRN (Reason: Opiate Reversal) Rx Instructions: spray 1 dose into ONE nostril; alternate nostrils w each dose until help arrives glucagon HCl [Glucagon (HCl) Emergency Kit] 1 mg Recon Soln 1 mg SUBCUT Q20M PRN (Reason: Hypoglycemia) Rx Instructions: until target blood sugar attained ferrous sulfate 325 mg (65 mg iron) tablet 325 mg PO DAILY Qty: 90 0RF duloxetine 20 mg Capsule,Delayed Release(Dr/Ec) 20 mg PO BEDTIME nitroglycerin 0.4 mg Tablet, Sublingual 0.4 mg SUBLINGUAL Q5M MDD 3 doses PRN (Reason: Chest Pain) Rx Instructions: do not exceed 3 doses per episode metoprolol succinate 25 mg tablet extended release 24 hr 25 mg PO DAILY gabapentin 300 mg capsule 300 mg PO TID isosorbide mononitrate 30 mg tablet extended release 24 hr 30 mg PO BEDTIME ropinirole 0.5 mg tablet 0.5 mg PO DAILY PRN (Reason: restless legs) ipratropium-albuterol 0.5 mg-3 mg(2.5 mg base)/3 mL Solution For Nebulization 3 ml INHALATION TID Rx Instructions: start on 06/01/25, end on 06/04/25 guaifenesin 100 mg/5 mL Liquid 200 mg PO Q6H PRN (Reason: Cough) diclofenac sodium 1 % Gel 4 g TOPICAL BID Rx Instructions: apply 4 gram to each shoulder Eliquis 5 mg tablet 5 mg PO BID dapagliflozin propanediol [Farxiga] 10 mg tablet 10 mg PO DAILY (DME) blood pressure test kit-wrist Kit See Rx Instructions .Route Qty: 1 0RF Rx Instructions: As directed budesonide 3 mg capsule,delayed,extend.release 9 mg PO DAILY Qty: 270 3RF Discharge Orders: Discharge Order (Routine); Ordered 06/06/25 Ordered By: Drew Sawant Diet: Advance to usual diet Activity on Discharge: As tolerated Stand Alone Forms: Patient Portal Discharge page Print Language: Malay Care Plan Goals: Complete course of Augmentin and doxycycline; both will be 1 tab p.o. b.i.d. x3 days Health Concerns: Continue all meds as listed on discharge summary Plan of Treatment: As per receiving facility Assessment: Please see discharge summary Patient Instructions: Pneumonia (ED)
--- NOTE | 2025-06-06 14:59 | MHC.CM.PN ---
Addendum entered by Alecia Blue 06/06/25 15:10: CM CALLED PTS DAUGHTER, DONY, , WHO REPORTS SHE IS NOW THE PRIMARY HCP SHE IS AWARE OF PLAN TO DC AND BLS TRANSPORT BOOKED FOR 1630 [address]IA [address] Original Note: PT CLEARED TO RETURN TO LTC AT [facility] TODAY CM SPOKE TO SNF LIAISON WHO CONFIRMS THEY CAN PUT HER IN A PRIVATE WHILE SHE IS TREATED FOR CDIFF, BUT THEN SHE WILL RETURN TO SEMI-PRIVATE VM MESSAGE LEFT FOR DAUGHTER/HCP, DAVID [phone] INFORMING HER OF DC TIME AND PLAN FOR TEMPORARY PRIVATE AT [facility]
[2025-06-06 15:57] LABS: Glucose, Whole Blood 157 mg/dL (60-115)
[2025-06-06 16:00] VITALS: BP 137/68; PULSE 84; RESP 20; TEMP 36.8; O2SAT 92
[2025-06-07 02:04] LABS: Strep Pneumo Ag urine Detected (Not Detected)
== END 2025-06-06 17:25 | disposition skilled nursing facility (03) | DRG 871 ==
LOC: HO.ED 06-02 03:25 → HO.EDOVER 06-02 03:26 → HO.IMC 06-02 19:19
PROVIDERS: Family Medicine; Nurse Practitioner Acute Care; Student in an Organized Health Care Education/Training Program; Admitting Provider Physician Assistant; Emergency Provider Emergency Medicine; PCP Family Medicine; Visit Provider Hospitalist
DX: A41.9 Sepsis, unspecified organism (principal); I50.33 Acute on chronic diastolic (congestive) heart failure; J15.9 Unspecified bacterial pneumonia; N17.9 Acute kidney failure, unspecified; K51.90 Ulcerative colitis, unspecified, without complications; D84.9 Immunodeficiency, unspecified; L89.152 Pressure ulcer of sacral region, stage 2; E11.9 Type 2 diabetes mellitus without complications; D50.9 Iron deficiency anemia, unspecified; I35.0 Nonrheumatic aortic (valve) stenosis; E87.6 Hypokalemia; R65.20 Severe sepsis without septic shock; I25.10 Atherosclerotic heart disease of native coronary artery without angina pectoris; I11.0 Hypertensive heart disease with heart failure; Z86.718 Personal history of other venous thrombosis and embolism; Z95.5 Presence of coronary angioplasty implant and graft; Z79.4 Long term (current) use of insulin; Z79.01 Long term (current) use of anticoagulants; Z79.890 Hormone replacement therapy; Z79.899 Other long term (current) drug therapy
CPT/HCPCS: 36415; 71045; 80048; 80076; 81001; 82272; 82728; 82803; 82947; 83540; 83605; 83735; 83880; 84145; 84443; 84484; 85025; 85027; 87040; 87086; 87324; 87449; 87493; 87507; 87633; 87637; 87640; 87641; 87899; 93005; 94640; 97110; 97162; 97530; 99285; J0456; J0696; J1271; J1644; J1720; J1938; J2543; J3374; P9047

== ENCOUNTER → 2025-06-01 22:22 | Outpatient (BNV) | payer MEDICARE, SELFPAY | PROVIDERS: Emergency Provider Emergency Medicine; PCP Family Medicine; Visit Provider Radiology Neuroradiology | DX: R05.9 Cough, unspecified (principal); R50.9 Fever, unspecified | CPT/HCPCS: 71045 ==

== ENCOUNTER → 2025-06-01 22:22 | Outpatient (BNV) | payer MEDICARE, SELFPAY | PROVIDERS: Admitting Provider Physician Assistant; Emergency Provider Emergency Medicine; PCP Family Medicine; Visit Provider Internal Medicine Cardiovascular Disease | DX: R94.31 Abnormal electrocardiogram [ECG] [EKG] (principal); R06.02 Shortness of breath | CPT/HCPCS: 93010 ==

== ENCOUNTER 2025-06-02 03:24 | Outpatient (BNV) | payer MEDICARE, SELFPAY | END 2025-06-05 12:34 | PROVIDERS: Admitting Provider Physician Assistant; Emergency Provider Emergency Medicine; PCP Family Medicine; Visit Provider Internal Medicine Cardiovascular Disease | DX: I49.3 Ventricular premature depolarization (principal); I49.1 Atrial premature depolarization | CPT/HCPCS: 93010 ==

== ENCOUNTER → 2025-06-02 03:24 | Outpatient (BNV) | payer MEDICARE, SELFPAY | PROVIDERS: Admitting Provider Physician Assistant; Emergency Provider Emergency Medicine; PCP Family Medicine; Visit Provider Internal Medicine Cardiovascular Disease | DX: I50.9 Heart failure, unspecified (principal) | CPT/HCPCS: 99222 ==

== ENCOUNTER → 2025-06-02 03:24 | Outpatient (BNV) | payer MEDICARE, SELFPAY | PROVIDERS: Admitting Provider Physician Assistant; Emergency Provider Emergency Medicine; PCP Family Medicine; Visit Provider Physician Assistant | DX: I50.30 Unspecified diastolic (congestive) heart failure (principal); J18.9 Pneumonia, unspecified organism | CPT/HCPCS: 99232 ==